=== PATIENT | female | born 1960 | race Hispanic/Latino ===

== ENCOUNTER 2017-08-04 04:20 | Emergency (ER) | payer OTHER ==
[2017-08-04] MEDS ORDERED: MORPHINE 4 MG/ML SYR ONE (05:10)
[2017-08-04] MEDS ORDERED: ONDANSETRON 4 MG/2 ML VIAL ONE (05:11)
[2017-08-04 05:37] LABS: Urine Bacteria <20 /HPF (<20); Urine Culture Reflex Order NOT NEEDED
[2017-08-04 05:37] LABS: Bicarbonate 24 mEq/L (21-31); Glucose Level 217 mg/dL (65-120); Lipase 33 U/L (22-51); Potassium 3.9 mEq/L (3.6-5.0); Sodium Level 136 mEq/L (135-145)
[2017-08-04 05:38] LABS: Urine RBC NONE SEEN /HPF (NONE SEEN)
[2017-08-04 05:39] LABS: Urine Blood NEGATIVE (NEG); Urine Glucose NEGATIVE (NEG); Urine Protein NEGATIVE (NEG); Urine Specific Gravity 1.025 (1.005-1.030)
[2017-08-04 05:43] LABS: ALT/SGPT 43 IU/L (10-60); AST/SGOT 38 IU/L (10-42); Albumin 3.9 g/dL (3.2-5.5); Alkaline Phosphatase 145 IU/L (42-121); BUN Blood Urea Nitrogen 27 mg/dL (6-20); Bilirubin Direct 0.1 mg/dL (0-0.2); Bilirubin Total 0.4 mg/dL (0.3-1.2); Protein, Total 7.6 g/dL (6.0-8.3)
[2017-08-04 05:44] LABS: Absolute Lymphocytes (CBC) 2.8 K/uL (0.7-4.9); Absolute Monocytes 0.7 K/uL (0.1-1.3); Absolute Neutrophil 5.7 K/uL (1.8-8.0); Basophils % 0.5 % (0-1.3); Eosinophils % 2.1 % (0-4.4); Hematocrit 40.6 % (36.0-45.0); Lymphocytes % 29.4 % (15.3-44.8); MCV 91.3 fL (80-100); MPV 8.2 fL (7.6-11.3); Monocytes % 7.6 % (3.3-12.3); RBC Red Blood Cell Count 4.45 M/uL (3.86-4.86)
--- NOTE | 2017-08-04 07:15 | ER ---
Nurse's Notes [facility] Name: Robyn Carrion Age: 56 yrs Sex: Female : 1960 Arrival Date: 08/04/2017 Time: 04:21 Bed 14 Private MD: Berry Suero F Diagnosis: Abdominal tenderness;Type 1 diabetes mellitus Presentation: 08/04 04:37 Presenting complaint: Patient states: she is having upper right abdominal pain with bb nausea x 1 month had pill cam done Sunday or Sunday. Pain is getting worse this last week and is getting unbearable. Pt diagnosed with precancerous colon last January. Transition of care: patient was not received from another setting of care. Onset of symptoms is unknown. Initial Sepsis Screen: Does the patient meet any 2 criteria? No. Patient's initial sepsis screen is negative. Does the patient have a suspected source of infection? No. Patient's initial sepsis screen is negative. 04:37 Method Of Arrival: Ambulatory bb 04:37 Acuity: DARA 3 bb 05:05 Care prior to arrival: None. tl2 Historical: - Allergies: 04:43 No Known Allergies; bb - Home Meds: 04:43 atorvastatin Oral [Active]; Lantus Sub-Q [Active]; parampatal [Active]; Cinnamon 500 mg bb Oral cap 500 cap daily [Active]; Fish Oil 1,000 mg Oral cap 1 cap daily [Active]; garlic 500 mg Oral cap 500 cap daily [Active]; lisinopril Oral [Active]; Vitamin B-12 500 mcg Oral tab 500 mcg daily [Active]; Vitamin B-6 500 mg tab Oral tab 500 mg daily [Active]; - PMHx: 04:43 CHRONIC LOW BACK PAIN; Diabetes - IDDM; Diverticulitis; Hyperlipidemia; Hypertension; bb Pancreatitis; TIA; - PSHx: 04:43 Hysterectomy; Cholecystectomy; bb - Immunization history:: Adult Immunizations up to date. - Social history:: Smoking status: Patient/guardian denies using tobacco. Screenin:02 Abuse screen: Denies threats or abuse. Nutritional screening: No deficits noted. tl2 Tuberculosis screening: No symptoms or risk factors identified. Fall Risk None identified. Assessment: 05:02 General: Appears in no apparent distress. uncomfortable, Behavior is calm, cooperative, tl2 appropriate for age. Pain: Complains of pain in right upper quadrant Pain does not radiate. Neuro: Level of Consciousness is awake, alert, obeys commands, Oriented to person, place, time, situation. Cardiovascular: Denies chest pain. Respiratory: Airway is patent Respiratory effort is even, unlabored, Respiratory pattern is regular, symmetrical. GI: Bowel sounds present X 4 quads. Abd is soft and non tender Reports upper abdominal pain, nausea. : No signs and/or symptoms were reported regarding the genitourinary system. Derm: Skin is pink, warm \T\ dry. 05:20 Reassessment: Pt c/o pain and nausea, MD notified, new orders see MAR. tl2 06:25 Reassessment: Patient appears in no apparent distress at this time. Patient and/or tl2 family updated on plan of care and expected duration. Pain level reassessed. Patient is alert, oriented x 3, equal unlabored respirations, skin warm/dry/pink. Pt continues to c/o pain. MD notified, no new orders. MD ordered for CT to come scan pt. 07:22 Reassessment: Patient appears in no apparent distress at this time. Patient is alert, em oriented x 3, equal unlabored respirations, skin warm/dry/pink. General: Appears in no apparent distress. uncomfortable, Behavior is calm, cooperative. Pain: Complains of pain in right upper quadrant Pain does not radiate. Neuro: Level of Consciousness is awake, alert, obeys commands, Oriented to person, place, time, situation. Cardiovascular: Capillary refill < 3 seconds Patient's skin is warm and dry. Respiratory: Airway is patent Respiratory effort is even, unlabored, Respiratory pattern is regular, symmetrical. GI: Bowel sounds present X 4 quads. Abd is soft and non tender Reports nausea. Derm: Skin is intact, Skin is pink, warm \T\ dry. 07:30 Reassessment: Patient appears in no apparent distress at this time. I agree with above iw assessment by Sebastian Nugent LVN. 08:25 Reassessment: Patient appears in no apparent distress at this time. Patient and/or em family updated on plan of care and expected duration. Pain level reassessed. Patient is alert, oriented x 3, equal unlabored respirations, skin warm/dry/pink. Patient states feeling better. Vital Signs: 04:43 BP 172 / 76; Pulse 70; Resp 20 S; Temp 100.3(O); Pulse Ox 100% on R/A; Weight 68.95 kg bb (R); Height 5 ft. 2 in. (157.48 cm) (R); Pain 7/10; 06:25 BP 173 / 84; Pulse 56; Resp 18; Temp 99.1(O); Pulse Ox 97% on R/A; tl2 07:43 BP 159 / 83; Pulse 64; Resp 18; Pulse Ox 100% on R/A; Pain 8/10; em 08:26 BP 149 / 76; Pulse 67; Resp 18; Pulse Ox 98% on R/A; Pain 7/10; em 04:43 Body Mass Index 27.80 (68.95 kg, 157.48 cm) bb ED Course: 04:21 Patient arrived in ED. ds1 04:25 Berry Suero MD is Private Physician. ds1 04:32 Magdalena Michele, HAIDER is Primary Nurse. tl2 04:38 Severo Oleary MD is Attending Physician. ps1 04:39 Triage completed. bb 04:43 Arm band placed on Patient placed in an exam room, on a stretcher, on pulse oximetry. bb Family accompanied patient. 05:01 Inserted saline lock: 20 gauge in left antecubital area, using aseptic technique. Blood tl2 collected. 05:02 Patient has correct armband on for positive identification. Bed in low position. Call tl2 light in reach. Side rails up X 1. Adult w/ patient. 06:36 CT Abd/Pelvis - W/Contrast In Process Unspecified. EDMS 06:37 CT completed. Patient tolerated procedure well. Patient moved to CT via wheelchair. eh 06:[address] from CT. eh 07:42 No provider procedures requiring assistance completed. em 07:51 Attending Physician role handed off by Severo Oleary MD lisa 07:51 Tian Stuart MD is Attending Physician. lisa 07:59 Berry Suero MD is Referral Physician. lisa 07:59 Melodie Santiago MD is Referral Physician. lisa 08:26 IV discontinued, intact, bleeding controlled, No redness/swelling at site. Pressure em dressing applied. Administered Medications: 05:25 Drug: morphine 4 mg Route: IVP; Site: left antecubital; tl2 06:20 Follow up: Response: No adverse reaction; Pain is unchanged, physician notified tl2 05:32 Drug: Zofran 4 mg Route: IVP; Site: left antecubital; tl2 06:20 Follow up: Response: No adverse reaction tl2 Outcome: 07:15 ER care complete, transfer ordered by . ps1 08:00 Discharge ordered by MD. gonzalez 08:25 Discharged to home ambulatory. em 08:25 Condition: good 08:25 Discharge instructions given to patient, Instructed on discharge instructions, follow up and referral plans. medication usage, Demonstrated understanding of instructions, follow-up care, medications, Prescriptions given X 2. 08:30 Patient left the ED. em Signatures: Dispatcher [employer] EDTian Malloy MD MD cha Hagler, Ervin eh Munoz, Edgar, FOOD CART ATTENDANT FOOD CART ATTENDANT Lisha Schmitt ds1 Jennifer Ordaz RN RN bb Mariella Bower RN RN iw Magdalena Michele RN RN tl2 Severo Oleary MD MD ps1
--- NOTE | 2017-08-04 07:15 | EDPHYS ---
Physician Documentation [facility] Name: Robyn Carrion Age: 56 yrs Sex: Female : 1960 Arrival Date: 08/04/2017 Time: 04:21 Bed 14 Private MD: Berry Suero F ED Physician Tian Stuart HPI: 08/04 05:01 This 56 yrs old Female presents to ER via Ambulatory with complaints of ps1 Abdominal Pain. 05:01 Hx of RUQ pain s/p zuhair. Pt of Dr. Santiago. Recent US and and pill cam. Now with ps1 returning RUQ pain and reported elevated liver enzymes. No fever. Pain rated moderate. . Historical: - Allergies: 04:43 No Known Allergies; bb - Home Meds: 04:43 atorvastatin Oral [Active]; Lantus Sub-Q [Active]; parampatal [Active]; Cinnamon 500 mg bb Oral cap 500 cap daily [Active]; Fish Oil 1,000 mg Oral cap 1 cap daily [Active]; garlic 500 mg Oral cap 500 cap daily [Active]; lisinopril Oral [Active]; Vitamin B-12 500 mcg Oral tab 500 mcg daily [Active]; Vitamin B-6 500 mg tab Oral tab 500 mg daily [Active]; - PMHx: 04:43 CHRONIC LOW BACK PAIN; Diabetes - IDDM; Diverticulitis; Hyperlipidemia; Hypertension; bb Pancreatitis; TIA; - PSHx: 04:43 Hysterectomy; Cholecystectomy; bb - Immunization history:: Adult Immunizations up to date. - Social history:: Smoking status: Patient/guardian denies using tobacco. ROS: 05:01 Constitutional: Negative for fever, chills, and weight loss, Eyes: Negative for injury, ps1 pain, redness, and discharge, Neck: Negative for injury, pain, and swelling, Cardiovascular: Negative for chest pain, palpitations, and edema, Respiratory: Negative for shortness of breath, cough, wheezing, and pleuritic chest pain. 05:01 : Negative for injury, bleeding, discharge, and swelling, MS/Extremity: Negative for injury and deformity, Skin: Negative for injury, rash, and discoloration, Neuro: Negative for headache, weakness, numbness, tingling, and seizure. 05:01 Abdomen/GI: Positive for abdominal pain. Exam: 05:01 Constitutional: This is a well developed, well nourished patient who is awake, alert, ps1 and in no acute distress. Head/Face: Normocephalic, atraumatic. Eyes: Pupils equal round and reactive to light, extra-ocular motions intact. Lids and lashes normal. Conjunctiva and sclera are non-icteric and not injected. Chest/axilla: Normal chest wall appearance and motion. Nontender with no deformity. No lesions are appreciated. Cardiovascular: Regular rate and rhythm. No gallops, murmurs, or rubs. Normal PMI, no JVD. No pulse deficits. Respiratory: Lungs have equal breath sounds bilaterally, clear to auscultation and percussion. No rales, rhonchi or wheezes noted. No increased work of breathing, no retractions or nasal flaring. 05:01 Skin: Warm, dry with normal turgor. Normal color with no rashes, no lesions, and no evidence of cellulitis. MS/ Extremity: Pulses equal, no cyanosis. Neurovascular intact. Full, normal range of motion. Neuro: Awake and alert, GCS 15, oriented to person, place, time, and situation. Cranial nerves II-XII grossly intact. Sensory grossly intact. Psych: Awake, alert, with orientation to person, place and time. Behavior, mood, and affect are within normal limits. 05:01 Abdomen/GI: Inspection: abdomen appears normal, Bowel sounds: normal, Palpation: moderate abdominal tenderness, in the right upper quadrant. Vital Signs: 04:43 BP 172 / 76; Pulse 70; Resp 20 S; Temp 100.3(O); Pulse Ox 100% on R/A; Weight 68.95 kg bb (R); Height 5 ft. 2 in. (157.48 cm) (R); Pain 7/10; 06:25 BP 173 / 84; Pulse 56; Resp 18; Temp 99.1(O); Pulse Ox 97% on R/A; tl2 07:43 BP 159 / 83; Pulse 64; Resp 18; Pulse Ox 100% on R/A; Pain 8/10; em 08:26 BP 149 / 76; Pulse 67; Resp 18; Pulse Ox 98% on R/A; Pain 7/10; em 04:43 Body Mass Index 27.80 (68.95 kg, 157.48 cm) MDM: 05:01 Data reviewed: vital signs, nurses notes. ps1 05:14 Patient medically screened. ps1 08/04 04:50 Order name: Urine Dipstick--Ancillary (enter results); Complete Time: 05:42 rg2 08/04 05:00 Order name: Basic Metabolic Panel ps1 08/04 05:00 Order name: CBC with Diff ps1 08/04 05:00 Order name: Creatinine for Radiology ps1 08/04 05:00 Order name: Hepatic Function ps1 08/04 05:00 Order name: Lipase ps1 08/04 05:00 Order name: Urine Microscopic Only; Complete Time: 05:42 ps1 08/04 05:00 Order name: CT Abd/Pelvis - W/Contrast ps1 08/04 05:01 Order name: Basic Metabolic Panel; Complete Time: 05:43 EDMS 08/04 05:01 Order name: CBC with Automated Diff; Complete Time: 06:14 EDMS 08/04 05:01 Order name: Creatinine (Radiology Only); Complete Time: 05:42 EDMS 08/04 05:01 Order name: Liver (Hepatic) Function; Complete Time: 05:43 EDMS 08/04 05:01 Order name: Lipase; Complete Time: 05:43 EDMS 08/04 05:00 Order name: IV Saline Lock; Complete Time: 05:06 ps1 08/04 05:00 Order name: Labs collected and sent; Complete Time: 05:06 ps1 08/04 05:00 Order name: Urine Dipstick-Ancillary (obtain specimen); Complete Time: 05:06 ps1 Administered Medications: 05:25 Drug: morphine 4 mg Route: IVP; Site: left antecubital; tl2 06:20 Follow up: Response: No adverse reaction; Pain is unchanged, physician notified tl2 05:32 Drug: Zofran 4 mg Route: IVP; Site: left antecubital; tl2 06:20 Follow up: Response: No adverse reaction tl2 Disposition: 08/04/17 08:00 Discharged to Home. Impression: Abdominal tenderness, Type 1 diabetes mellitus. - Condition is Stable. - Discharge Instructions: Abdominal Pain, Adult, Type 1 Diabetes Mellitus, Adult, Nausea and Vomiting. - Prescriptions for Bentyl 20 mg Oral Tablet - take 1 tablet by ORAL route every 6 hours As needed; 20 tablet. Pepcid 20 mg Oral Tablet - take 1 tablet by ORAL route every 12 hours for 10 days; 20 tablet. Zofran 4 mg Oral Tablet - take 1 tablet by ORAL route every 12 hours As needed; 20 tablet. - Medication Reconciliation Form, Thank You Letter, Antibiotic Education, Prescription Opioid Use form. - Follow up: Berry Suero MD; When: 2 - 3 days; Reason: Recheck today's complaints, Continuance of care, Re-evaluation by your physician. Follow up: Melodie Santiago MD; When: 2 - 3 days; Reason: Recheck today's complaints, Continuance of care, Re-evaluation by your physician. - Problem is new. - Symptoms have improved. Signatures: Dispatcher [employer] EDTian Malloy MD MD cha Munoz, Edgar, ANIMAL HUSBANDRY MANAGER ANIMAL HUSBANDRY MANAGER Jennifer Ellis, RN RN bb Magdalena Michele RN RN tl2 Severo Oleary MD MD ps1
[2017-08-04 08:34] VITALS: TEMP 99.1
[2017-08-04 08:37] VITALS: BP 149/76; O2SAT 98
--- NOTE | 2017-08-04 10:44 | RAD REPORT ---
EXAM DESCRIPTION: CTAbdomen Pelvis W Contrast - 08/04/2017 10:22 am CLINICAL HISTORY: Abdominal pain. COMPARISON: None. TECHNIQUE: Biphasic CT imaging of the abdomen and pelvis was performed with 100 ml non-ionic IV cont rast. All CT scans are performed using dose optimization technique as appropriate and may include automated exposure control or mA/KV adjustment according to patient size. FINDINGS: The lung bases are clear.Small hiatal hernia. The liver demonstrates diffuse fatty infiltration. Cholecystectomy clips. The spleen, pancreas, adren al glands and kidneys are within normal limits. No bowel obstruction, free air, free fluid or abscess. Prominent sigmoid diverticulosis coli without diverticulitis. The appendix is normal. No evidence of significant lymphadenopathy. No suspicious bony findings. IMPRESSION: Prominent fatty liver. Sigmoid diverticulosis coli without diverticulitis.
== END 2017-08-04 08:30 | disposition home or self-care (01) ==
LOC: ER 04:20
DX: E10.9 Type 1 diabetes mellitus without complications (principal); I10 Essential (primary) hypertension; E78.5 Hyperlipidemia, unspecified; Z79.4 Long term (current) use of insulin
CPT/HCPCS: 36415; 74177; 80048; 80076; 83690; 85025; 96374; 96375; 99284; J2405; Q9967; 81003; 81015

== ENCOUNTER 2017-09-04 22:24 | Observation (INO) | payer OTHER ==
[2017-09-04] MEDS ORDERED: LIDOCAINE VISCOUS 2% SOLN 15 ML UDC ONE (23:19)
[2017-09-04] MEDS ORDERED: MAGNE/ALUM HYDROXD 30 ML UCUP ONE (23:19)
[2017-09-04] MEDS ORDERED: ONDANSETRON 4 MG/2 ML VIAL ONE (23:19)
[2017-09-04 23:55] LABS: Absolute Lymphocytes (CBC) 3.1 K/uL (0.7-4.9); Absolute Monocytes 0.9 K/uL (0.1-1.3); Basophils % 0.7 % (0-1.3); Eosinophils % 1.3 % (0-4.4); Lymphocytes % 23.4 % (15.3-44.8); MCH 30.8 pg (27.0-35.0); MCV 91.2 fL (80-100); MPV 8.3 fL (7.6-11.3); Monocytes % 6.5 % (3.3-12.3); RBC Red Blood Cell Count 4.72 M/uL (3.86-4.86)
[2017-09-05 00:03] LABS: Potassium 3.5 mEq/L (3.6-5.0)
[2017-09-05 00:11] LABS: Albumin 4.1 g/dL (3.2-5.5); Bilirubin Direct 0.1 mg/dL (0-0.2); Bilirubin Total 0.4 mg/dL (0.3-1.2); Protein, Total 8.3 g/dL (6.0-8.3)
--- NOTE | 2017-09-05 01:27 | EDPHYS ---
Physician Documentation [facility] Name: Robyn Carrion Age: 56 yrs Sex: Female : 1960 Arrival Date: 09/04/2017 Time: 22:28 Bed 30 Private MD: ED Physician Antony Ely HPI: 09/05 01:21 This 56 yrs old Female presents to ER via Ambulatory with complaints of Chest rn Pain. 01:21 The patient or guardian reports chest pain that is located primarily in the substernal rn area, epigastric area. Onset: 3 day(s) ago. The pain does not radiate. The chest pain is described as burning, causing indigestion. Duration: The patient or guardian reports multiple episodes, that are intermittent. Modifying factors: The symptoms are alleviated by nothing. the symptoms are aggravated by nothing. Severity of pain: At its worst the pain was moderate in the emergency department the pain is unchanged. The patient has experienced similar episodes in the past. The patient has not recently seen a physician. Reports chronic pancreatitis, + chest pain for 2-3 days, never been this bad, had neg cath 1 year ago, has been seeing dr macias, who recommended MRCP/ERCP to look for stone in duct, hasn't gotten scheduled yet, no fever/cough/sob. . Historical: - Allergies: 09/04 22:43 hydrocodone; fc - Home Meds: 22:43 Creon 36,000-114,000- 180,000 unit oral cpDR 2 caps tid with meal and 1 at bedtime fc [Active]; Zofran (as hydrochloride) 4 mg Oral tab 2 tabs 3 times per day [Active]; Dexilant 60 mg oral CpDB 1 cap once daily [Active]; atorvastatin Oral once daily [Active]; Lantus Sub-Q 47 unit daily [Active]; - PMHx: 22:45 GERD; fc - PSHx: 22:45 Hysterectomy; Cholecystectomy; fc - Immunization history:: Last tetanus immunization: up to date. - Social history:: Smoking status: Patient/guardian denies using tobacco. - Ebola Screening: : Patient negative for fever greater than or equal to 101.5 degrees Fahrenheit, and additional compatible Ebola Virus Disease symptoms Patient denies exposure to infectious person Patient denies travel to an Ebola-affected area in the 21 days before illness onset. - Family history:: not pertinent. - Hospitalizations: : No recent hospitalization is reported. ROS: 09/05 01:21 Constitutional: Negative for fever, chills, and weight loss, Eyes: Negative for injury, rn pain, redness, and discharge, Neck: Negative for injury, pain, and swelling, Cardiovascular: Negative for palpitations, and edema, Respiratory: Negative for shortness of breath, cough, wheezing, and pleuritic chest pain, Abdomen/GI: Negative for diarrhea, and constipation, MS/Extremity: Negative for injury and deformity, Skin: Negative for injury, rash, and discoloration, Neuro: Negative for headache, weakness, numbness, tingling, and seizure. Exam: 01:21 Constitutional: This is a well developed, well nourished patient who is awake, alert, rn appears uncomfortable Head/Face: Normocephalic, atraumatic. Eyes: Pupils equal round and reactive to light, extra-ocular motions intact. Lids and lashes normal. Conjunctiva and sclera are non-icteric and not injected. Cornea within normal limits. Periorbital areas with no swelling, redness, or edema. Cardiovascular: Regular rate and rhythm with a normal S1 and S2. No gallops, murmurs, or rubs. Normal PMI, no JVD. No pulse deficits. Respiratory: Lungs have equal breath sounds bilaterally, clear to auscultation and percussion. No rales, rhonchi or wheezes noted. No increased work of breathing, no retractions or nasal flaring. Abdomen/GI: soft, mild epigastric tenderness, no rebound MS/ Extremity: Pulses equal, no cyanosis. Neurovascular intact. Full, normal range of motion. Equal circumference. Neuro: Awake and alert, GCS 15, oriented to person, place, time, and situation. Cranial nerves II-XII grossly intact. Motor strength 5/5 in all extremities. Sensory grossly intact. Vital Signs: 09/04 22:45 BP 168 / 87; Pulse 71; Resp 18; Temp 98.2(O); Pulse Ox 98% on R/A; Weight 71.67 kg (R); fc Height 5 ft. 2 in. (157.48 cm) (R); Pain 8/10; 09/05 00:39 BP 138 / 63; Pulse 79; Resp 18; Pulse Ox 98% on R/A; mb3 02:12 BP 125 / 57; Pulse 67; Resp 16; Pulse Ox 98% on R/A; mb3 09/04 22:45 Body Mass Index 28.90 (71.67 kg, 157.48 cm) fc MDM: 09/04 22:56 Patient medically screened. rn 09/05 01:21 Differential diagnosis: abnormal EKG, acute myocardial infarction, acute pericarditis, rn anxiety, coronary artery disease costochondritis, esophagitis, gastritis, gastroesophageal reflux disease (GERD), pancreatitis, pericarditis, pleurisy. Data reviewed: vital signs, nurses notes, lab test result(s), radiologic studies, plain films. Counseling: I had a detailed discussion with the patient and/or guardian regarding: the historical points, exam findings, and any diagnostic results supporting the discharge/admit diagnosis, lab results, radiology results, the need for further work-up and treatment in the hospital. Response to treatment: the patient's symptoms have mildly improved after treatment, and as a result, I will admit patient. Admission orders: after a detailed discussion of the patient's condition and case, the admit orders are written by me. ED course: Pt still vomiting, uncomfortable, cardiac eval here normal, pain most likely referred from chronic pancreatitis vs acid reflux/acid related problems, elevated alk phos, will admit for pain control/anti-emetics, GI consult with MRCP. . 09/04 23:10 Order name: Basic Metabolic Panel; Complete Time: 00:45 rn 09/04 23:10 Order name: BNP; Complete Time: 00:45 rn 09/04 23:10 Order name: CBC with Diff; Complete Time: 00:45 rn 09/04 23:10 Order name: LFT's; Complete Time: 00:45 09/04 23:10 Order name: Troponin (emerg Dept Use Only); Complete Time: 00:45 rn 09/04 23:10 Order name: Lipase; Complete Time: 00:45 09/04 23:10 Order name: XRAY Chest (1 view) rn 09/04 23:10 Order name: EKG; Complete Time: 23:11 rn 09/04 23:10 Order name: Cardiac monitoring; Complete Time: 23:15 rn 09/04 23:10 Order name: EKG - Nurse/Tech; Complete Time: 23:15 rn 09/04 23:10 Order name: IV Saline Lock; Complete Time: 23:15 rn 09/04 23:10 Order name: Labs collected and sent; Complete Time: 23:15 rn 09/04 23:10 Order name: O2 Per Protocol; Complete Time: 23:15 rn 09/04 23:10 Order name: O2 Sat Monitoring; Complete Time: 23:16 rn Administered Medications: 09/04 23:27 Drug: Zofran 4 mg Route: IVP; Site: right hand; mb3 09/05 02:05 Follow up: Response: No adverse reaction mb3 09/04 23:28 Drug: GI Cocktail without - (Maalox Suspension 30 ml, Lidocaine Liquid 2 % 15 mb3 ml) Route: PO; 09/05 02:05 Follow up: Response: No adverse reaction mb3 Disposition: 09/05/17 01:26 Hospitalization ordered by Berry Suero for Observation. Preliminary diagnosis are Chest pain, unspecified, Other chronic pancreatitis, Intractable vomiting. - Bed requested for Telemetry/MedSurg (observation). - Status is Observation. mb3 - Condition is Stable. - Problem is an ongoing problem. - Symptoms have improved. UTI on Admission? No Signatures: Dispatcher [employer] Yessy Anderson RN Amanda Walls RN Antony Higginbotham MD MD rn Botello, Elizabeth eb Barnett, Mark RN RN mb3 Corrections: (The following items were deleted from the chart) 01:37 01:26 Hospitalization Ordered by Berry Suero MD for Observation. Preliminary dw diagnosis is Chest pain, unspecified; Other chronic pancreatitis; Intractable vomiting. Bed requested for Telemetry/MedSurg (observation). Status is Observation. Condition is Stable. Problem is an ongoing problem. Symptoms have improved. UTI on Admission? No. rn 01:59 01:37 09/05/2017 01:26 Hospitalization Ordered by Berry Suero MD for Observation. eb Preliminary diagnosis is Chest pain, unspecified; Other chronic pancreatitis; Intractable vomiting. Bed requested for Telemetry/MedSurg (observation). Status is Observation. Condition is Stable. Problem is an ongoing problem. Symptoms have improved. UTI on Admission? No. dw 02:39 01:59 09/05/2017 01:26 Hospitalization Ordered by Berry Suero MD for Observation. mb3 Preliminary diagnosis is Chest pain, unspecified; Other chronic pancreatitis; Intractable vomiting. Bed requested for Telemetry/MedSurg (observation). Status is Observation. Condition is Stable. Problem is an ongoing problem. Symptoms have improved. UTI on Admission? No. eb
--- NOTE | 2017-09-05 01:27 | ER ---
Nurse's Notes [facility] Name: Robyn Carrion Age: 56 yrs Sex: Female : 1960 Arrival Date: 09/04/2017 Time: 22:28 Bed 30 Private MD: Diagnosis: Chest pain, unspecified;Other chronic pancreatitis;Intractable vomiting Presentation: 09/04 22:36 Presenting complaint: Patient states: that she is having a lot of chest pressure on and fc off x 3 days. Gets better if she burps or passes gas or stool. Positive for nausea and vomiting. Denies any shortness of breathe. Also having stomach cramping. Transition of care: patient was not received from another setting of care. Onset of symptoms was September 04, 2017 at 09:00. Risk Assessment: Do you want to hurt yourself or someone else? Patient reports no desire to harm self or others. Initial Sepsis Screen: Does the patient meet any 2 criteria? No. Patient's initial sepsis screen is negative. Does the patient have a suspected source of infection? No. Patient's initial sepsis screen is negative. Care prior to arrival: None. 22:36 Method Of Arrival: Ambulatory fc 22:36 Acuity: DARA 3 fc Historical: - Allergies: 22:43 hydrocodone; fc - Home Meds: 22:43 Creon 36,000-114,000- 180,000 unit oral cpDR 2 caps tid with meal and 1 at bedtime fc [Active]; Zofran (as hydrochloride) 4 mg Oral tab 2 tabs 3 times per day [Active]; Dexilant 60 mg oral CpDB 1 cap once daily [Active]; atorvastatin Oral once daily [Active]; Lantus Sub-Q 47 unit daily [Active]; - PMHx: 22:45 GERD; fc - PSHx: 22:45 Hysterectomy; Cholecystectomy; fc - Immunization history:: Last tetanus immunization: up to date. - Social history:: Smoking status: Patient/guardian denies using tobacco. - Ebola Screening: : Patient negative for fever greater than or equal to 101.5 degrees Fahrenheit, and additional compatible Ebola Virus Disease symptoms Patient denies exposure to infectious person Patient denies travel to an Ebola-affected area in the 21 days before illness onset. - Family history:: not pertinent. - Hospitalizations: : No recent hospitalization is reported. Screenin:04 Abuse screen: Denies threats or abuse. Nutritional screening: No deficits noted. mb3 Tuberculosis screening: No symptoms or risk factors identified. Fall Risk None identified. Assessment: 23:04 General: Appears distressed, uncomfortable, well groomed, Behavior is calm, mb3 cooperative, appropriate for age. Pain: Complains of pain in chest Pain does not radiate. Pain currently is 10 out of 10 on a pain scale. Quality of pain is described as burning, stabbing, Pain began gradually, 11 hours ago. Neuro: No deficits noted. Level of Consciousness is awake, alert, obeys commands, Oriented to person, place, time, situation, Appropriate for age. Cardiovascular: Reports chest pain, Heart tones present Capillary refill < 3 seconds Patient's skin is warm and dry. Rhythm is sinus rhythm. Respiratory: No deficits noted. Airway is patent Respiratory effort is even, unlabored, Respiratory pattern is regular, symmetrical. GI: Abdomen is flat, Bowel sounds present X 4 quads. Abdomen is tender to palpation in right upper quadrant. : No signs and/or symptoms were reported regarding the genitourinary system. Vital Signs: 22:45 BP 168 / 87; Pulse 71; Resp 18; Temp 98.2(O); Pulse Ox 98% on R/A; Weight 71.67 kg (R); fc Height 5 ft. 2 in. (157.48 cm) (R); Pain 8/10; 09/05 00:39 BP 138 / 63; Pulse 79; Resp 18; Pulse Ox 98% on R/A; mb3 02:12 BP 125 / 57; Pulse 67; Resp 16; Pulse Ox 98% on R/A; mb3 09/04 22:45 Body Mass Index 28.90 (71.67 kg, 157.48 cm) ED Course: 09/04 22:28 Patient arrived in ED. al2 22:38 Triage completed. fc 22:45 Arm band placed on Patient placed in an exam room, on a stretcher. fc 22:52 Arturo Barber, RN is Primary Nurse. mb3 22:55 Patient has correct armband on for positive identification. Placed in gown. Bed in low mb3 position. Call light in reach. Side rails up X 1. gambling monitor on. Pulse ox on. NIBP on. 22:56 Antony Ely MD is Attending Physician. rn 23:03 Inserted saline lock: 20 gauge in right hand, using aseptic technique. Blood collected. mb3 Patient maintains SpO2 saturation greater than 95% on room air. 23:29 XRAY Chest (1 view) In Process Unspecified. EDMS 09/05 01:25 Berry Suero MD is Hospitalizing Provider. rn 02:14 No provider procedures requiring assistance completed. Patient admitted, IV remains in mb3 place. Administered Medications: 09/04 23:27 Drug: Zofran 4 mg Route: IVP; Site: right hand; mb3 09/05 02:05 Follow up: Response: No adverse reaction mb3 09/04 23:28 Drug: GI Cocktail without - (Maalox Suspension 30 ml, Lidocaine Liquid 2 % 15 mb3 ml) Route: PO; 09/05 02:05 Follow up: Response: No adverse reaction mb3 Outcome: 01:26 Decision to Hospitalize by Provider. rn 02:13 Admitted to Tele accompanied by tech, via wheelchair, room 423, with chart, Report mb3 called to Ernesto Stacy RN 02:13 Condition: stable 02:13 Instructed on the need for admit. 02:39 Patient left the ED. mb3 Signatures: Dispatcher [employer] EDID Amanda Degroot, RN HAIDER Antony Ely MD MD rn Love, Angelica al2 Barnett, Mark, RN RN mb3
[2017-09-05] MEDS ORDERED: ACETAMINOPHEN 500 MG TAB PO PRN (02:42)
[2017-09-05 03:01] VITALS: BMI 28.3
[2017-09-05] MEDS: D5.45NS W/KCL 20MEQ 1,000 ML IV SCH ×2 (03:16→12:42)
[2017-09-05 04:31] LABS: Urine Appearance CLEAR; Urine Bilirubin NEGATIVE (NEG); Urine Blood NEGATIVE (NEG); Urine Color YELLOW; Urine Glucose NEGATIVE (NEG); Urine Protein NEGATIVE (NEG); Urine Specific Gravity 1.015 (1.005-1.030); Urine Urobilinogen 0.2 mg/dL (0.2-1.0); Urine pH 5.5 (5.0-7.0)
[2017-09-05 04:55] LABS: Urine Microscopic Reflex ORDER UMIC
[2017-09-05 05:39] LABS: Urine Bacteria <20 /HPF (<20); Urine Culture Reflex Order REFLEXED; Urine RBC NONE SEEN /HPF (NONE SEEN)
--- NOTE | 2017-09-05 07:41 | EKG ---
Test Date: 2017-09-04 Test Time: 23:17:18 Community Educator: REEMA MEASUREMENT RESULTS: Intervals: Rate: 68 OK: 146 QRSD: 78 QT: 402 QTc: 427 [place]: P: 15 OK: 146 QRS: -5 T: 38 INTERPRETIVE STATEMENTS: Normal sinus rhythm Normal ECG Compared to ECG 05/06/2017 14:33:45 No significant changes Electronically Signed On 09-05-17 07:40:47 CDT by Jonathan Coffey
[2017-09-05] MEDS: ONDANSETRON 4 MG/2 ML VIAL IV PRN ×3 (07:56→23:11)
[2017-09-05] MEDS: Morphine 2 MG/2 ML SYR IV PRN ×4 (07:56→23:12)
--- NOTE | 2017-09-05 08:35 | RAD REPORT ---
EXAM DESCRIPTION: Mohsen Single View09/04/2017 11:32 pm CLINICAL HISTORY: Chest pain COMPARISON: April 2017 FINDINGS: The lungs appear clear of acute infiltrate. The heart is normal size IMPRESSION: No acute abnormalities displayed
--- NOTE | 2017-09-05 09:31 | RAD REPORT ---
EXAM DESCRIPTION: MRI - Cholangiogram - 09/05/2017 8:50 am CLINICAL HISTORY: Chest pain, right upper quadrant pain, cholecystectomy COMPARISON: CT study August 04, MRCP June 2016 FINDINGS: Gallbladder is absent. There is a small remnant of cystic duct identifiable. The common he patic duct and common bile duct are both approximately 7 mm. This is normal range for a post cholecys tectomy patient. No duct stone, stricture, mass or other suspicious finding. IMPRESSION: Normal post cholecystectomy MRCP.
[2017-09-05] MEDS: LISINOPRIL 10 MG TAB PO SCH (11:07)
--- NOTE | 2017-09-05 12:25 | HP ---
Date of Admission: 09/05/2017 History Of Present Illness: A 56-year-old female with history of recurrent acute pancreatitis , pres ented to the emergency room with complaint chest pain; however, the patient is pointing to the epigas tric abdominal area. The pain has no radiation. It started about 2-3 days ago and being progressive ly getting worse until she started having nausea and vomiting. The pain does not radiate. No shortn ess of breath. The patient voiced no other complaints. Review of Systems: Gastrointestinal: As above. Cardiovascular: No complaints. Genitourinary: No complaints. Respiratory: No complaints. Skeletomuscular: No complaints. Neurological: No complaint. Past Medical History: 1.As above, acute pancreatitis episodes. 2.Type 2 diabetes. 3.Hyperlipidemia. 4.Hypertension. Past Surgical History: The patient has had cholecystectomy, hysterectomy, and low back surgery. Social History: No smoking, alcohol, or drug abuse history. Family History: Noncontributing. Medications: Include atorvastatin 20 mg p.o. daily, Kapidex 60 mg p.o. daily, Bentyl 10 mg p.o. b.i. d., Lantus 47 units subcutaneous daily, lisinopril 10 mg p.o. daily, and Zofran 8 mg p.o. q.8 hours. The patient takes rxncda-xqzeazxh-rrmybay supplement. Allergies: CODEINE AND HYDROCODONE. Physical Examination: Vital Signs: Blood pressure 135/70, pulse 64, temperature 97.4 on room air, and pulse oximetry 95%. Heart: Regular rate and rhythm. Chest: Clear to auscultation. Abdomen: Soft with epigastric tenderness. No rigidity. No rebound. Bowel sounds are active. Extremities: No edema. No cyanosis. Peripheral pulses are felt. Neurologic: Alert, oriented, nonfocal. Grossly intact. Chest x-ray, no acute pathology. Electrocardiogram, normal sinus rhythm. Laboratory Data: White cell count 13.1. The rest of CBC nonrevealing. Chemistry; sodium 134, potas sium 3.5, chloride 100, BUN 20, creatinine 0.78, blood sugar 181, AST 55, and alkaline phosphatase 12 6. Troponin less than 0.03. Lipase 25. Assessment And Plan: Epigastric abdominal pain rather than chest pain. The patient basically also h ad heart catheterization by Cardiology last year, which was negative. Dr. Santiago, our gastroenterologi st has been following the patient for her pancreatitis. He is scheduled for her MRCP. Pending that result, we will put the patient n.p.o., put on pain medication, monitor her blood sugar, put her on s liding scale, and put her on the rest of her home medications. Look orders for details. IVIS/BABATUNDE Voice ID: [id number]
[2017-09-05] MEDS: DICYCLOMINE HCL 10 MG CAP PO PRN (14:12)
[2017-09-05] MEDS: LIPASE/PROTEASE/AMYLASE CAP PO SCH (16:37)
[2017-09-05] MEDS ORDERED: GLUCAGON 1 MG/VIAL IM PRN (18:12)
[2017-09-05] MEDS ORDERED: D50W 25 GM/50 ML SYRINGE IV PRN (18:12)
[2017-09-05] MEDS ORDERED: ATORVASTATIN 20 MG TAB PO SCH (21:00)
[2017-09-05] MEDS: INSULIN -REGULAR HUMAN 50 UNIT/0.5 ML ML SQ SCH (21:00)
[2017-09-06 04:12] LABS: Absolute Lymphocytes (CBC) 2.7 K/uL (0.7-4.9); Absolute Monocytes 0.7 K/uL (0.1-1.3); Absolute Neutrophil 6.9 K/uL (1.8-8.0); Basophils % 0.9 % (0-1.3); Eosinophils % 1.7 % (0-4.4); Hematocrit 38.8 % (36.0-45.0); Lymphocytes % 25.8 % (15.3-44.8); MCH 31.2 pg (27.0-35.0); MCV 91.7 fL (80-100); MPV 8.2 fL (7.6-11.3); Monocytes % 6.4 % (3.3-12.3); RBC Red Blood Cell Count 4.23 M/uL (3.86-4.86)
[2017-09-06 04:28] LABS: Phosphorus 3.6 mg/dL (2.5-4.3); Potassium 4.2 mEq/L (3.6-5.0)
[2017-09-06] MEDS ORDERED: PANTOPRAZOLE 40MG TABLET PO SCH (06:30)
[2017-09-06 07:27] VITALS: O2SAT 96
[2017-09-06] MEDS ORDERED: INSULIN DETEMIR 100 UNIT/1 ML INSULIN SQ SCH (09:00)
[2017-09-06] MEDS: Morphine 2 MG/2 ML SYR IV PRN (09:17)
[2017-09-06] MEDS: ONDANSETRON 4 MG/2 ML VIAL IV PRN ×2 (09:18→17:01)
[2017-09-06] MEDS: LIPASE/PROTEASE/AMYLASE CAP PO SCH ×3 (09:23→16:58)
[2017-09-06] MEDS: INSULIN -REGULAR HUMAN 50 UNIT/0.5 ML ML SQ SCH ×3 (09:24→16:58)
[2017-09-06] MEDS: LISINOPRIL 10 MG TAB PO SCH (09:24)
[2017-09-06] MEDS: DICYCLOMINE HCL 10 MG CAP PO PRN (12:30)
[2017-09-06 12:48] VITALS: BP 122/66
--- NOTE | 2017-09-06 15:19 | CON ---
Date of Consultation: 09/06/[address] Suero's service on 09/05/2017. I saw the patient on 09/06/2017. History Of Present Illness: Chest pain for 3 days. History Of Present Illness: Ms. Carrion 57-year-old woman with history of chronic alcazar creatitis, diabetes, gastroesophageal reflux disease, dyslipidemia, and she is status post hysterecto my and cholecystectomy. Came in with mid-epigastric chest pain with some nausea. No vomiting, diaph oresis, PND, orthopnea, pedal edema, palpitations, or syncope. Apparently, she is status post cholec ystectomy, but there were some plans initially to do an ERCP. Apparently, she had a HIDA scan yester day was negative. Her lipase was normal. Her liver function test was slightly elevated. She has a negative troponin, negative EKG, and negative chest x-ray. Approximately a year ago, a heart cathete rization was done because of her chest pain and there were normal coronaries. Allergies: SHE IS ALLERGIC TO HYDROCODONE. Medications: Include Lipitor, insulin, Dexilant, Creon, enzymes. Review of Systems: Negative. Social History: Negative. Family History: Negative. Physical Examination: Vital Signs: Stable. She was afebrile. HEENT: Negative. Neck: Supple with no bruit, lymphadenopathy, JVD, or thyromegaly. Chest: Clear to auscultation and percussion. Cardiac: Revealed a regular rhythm and rate without any murmurs, gallops, or rubs. Abdomen: Benign. Extremities: Revealed no clubbing, cyanosis, or edema. Diagnostic Data: . Impression And Plan: 1.Chest pain, most likely gastroesophageal reflux disease in nature or pancreatitis exacerbation. I do not recommend any cardiac workup. She had a normal heart catheterization a year ago. She has no rmal EKG, chest x-ray, and enzymes. 2. . 3.Gastroesophageal reflux disease. She is status post cholecystectomy. . For ERCP, Dr. Santiago has been consulted and endoscopy may be reasonable. STEVEN/BABATUNDE Voice ID: [id number] Report ID: [id number]
[2017-09-06 16:40] VITALS: TEMP 97.7
== END 2017-09-06 18:09 | disposition home or self-care (01) ==
LOC: ER 22:24 → ERHOLD 09-05 02:05 → 4TH 09-05 02:18
PROVIDERS: ADMIT Internal Medicine; ATTEND Internal Medicine
DX: R10.13 Epigastric pain (principal); E11.9 Type 2 diabetes mellitus without complications; K86.1 Other chronic pancreatitis; E78.5 Hyperlipidemia, unspecified; I10 Essential (primary) hypertension; K21.9 Gastro-esophageal reflux disease without esophagitis
CPT/HCPCS: 36415 ×2; 71045; 74181; 80048 ×2; 80076; 82962 ×6; 83690; 83735; 83880; 84100; 84478; 84484; 85025 ×2; 87086; 87088; 93005; 96374; 99285; G0378 ×2; J2270 ×6; J2405 ×6; 81003; 81015

== ENCOUNTER 2017-11-09 00:02 | Emergency (ER) | payer OTHER ==
[2017-11-09] MEDS ORDERED: METHYLPREDNISOLONE 125 MG INJ ONE (00:38)
[2017-11-09] MEDS ORDERED: DEXAMETHASONE 10 MG/ML VIAL ONE (00:38)
[2017-11-09] MEDS ORDERED: DIPHENHYDRAMINE 50 MG/ML VIAL ONE (00:38)
[2017-11-09] MEDS ORDERED: FAMOTIDINE 20 MG/2 ML VIAL IV ONE (00:38)
[2017-11-09] MEDS ORDERED: NA CHLORIDE 0.9% 1,000 ML ONE (00:38)
[2017-11-09] MEDS ORDERED: ALBUTEROL 2.5 MG/3 ML NEB SOL ONE (00:40)
[2017-11-09] MEDS ORDERED: IPRATROPIUM BROM 0.5MG/2.5ML ONE (00:41)
[2017-11-09] MEDS ORDERED: CEFTRIAXONE/SWI 1gm 1 GM/10 ML SYR ONE (00:41)
[2017-11-09 00:47] LABS: Absolute Lymphocytes (CBC) 2.5 K/uL (0.7-4.9); Absolute Monocytes 0.8 K/uL (0.1-1.3); Absolute Neutrophil 6.3 K/uL (1.8-8.0); Basophils % 0.5 % (0-1.3); Eosinophils % 1.7 % (0-4.4); Hematocrit 39.6 % (36.0-45.0); Lymphocytes % 25.9 % (15.3-44.8); MCH 31.9 pg (27.0-35.0); MCV 92.5 fL (80-100); MPV 8.3 fL (7.6-11.3); Monocytes % 7.7 % (3.3-12.3); RBC Red Blood Cell Count 4.28 M/uL (3.86-4.86)
[2017-11-09 00:52] LABS: Protime INR 0.93
[2017-11-09 01:06] LABS: Albumin 3.3 g/dL (3.4-5.0); Bilirubin Direct 0.1 mg/dL (0-0.2); Bilirubin Total 0.2 mg/dL (0.2-1.0); CKMB Creatine Kinase MB 1.1 ng/mL (0.3-3.6); Protein, Total 7.5 g/dL (6.4-8.2)
[2017-11-09] MEDS ORDERED: INSULIN -REGULAR HUMAN 50 UNIT/0.5 ML ML ONE (01:45)
[2017-11-09 01:54] LABS: Urine Blood NEGATIVE (NEG); Urine Glucose 2+ (NEG); Urine Protein NEGATIVE (NEG); Urine pH 5.5 (5.0-7.0)
--- NOTE | 2017-11-09 03:32 | EDPHYS ---
Physician Documentation [facility] Name: Robyn Carrion Age: 57 yrs Sex: Female : 1960 Arrival Date: 11/09/2017 Time: 00:03 Bed 2 Private MD: Berry Suero F ED Physician Tian Stuart HPI: 11/09 00:30 This 57 yrs old Female presents to ER via EMS with complaints of Cough, lisa Vomiting. 00:30 The patient or guardian reports airway noise, cough. Onset: The symptoms/episode lisa began/occurred just prior to arrival, this morning. Severity of symptoms: At their worst the symptoms were moderate, in the emergency department the symptoms are unchanged. Modifying factors: The symptoms are alleviated by nothing, the symptoms are aggravated by nothing. Associated signs and symptoms: The patient has no apparent associated signs or symptoms. Historical: - Allergies: 00:18 HYDROCODONE; bs1 - Home Meds: 00:18 Creon 36,000-114,000- 180,000 unit Oral cpDR 2 caps tid with meal and 1 at bedtime bs1 [Active]; Lantus Sub-Q 47 unit daily [Active]; atorvastatin Oral once daily [Active]; Zofran (as hydrochloride) 4 mg Oral tab 2 tabs 3 times per day [Active]; Dicyclomine Oral [Active]; Amitiza oral oral [Active]; Dexilant 60 mg Oral CpDB 1 cap once daily [Active]; - PMHx: 00:18 GERD; TIA; Diabetes - IDDM; High Cholesterol; Hypertension; Pancreatitis; bs1 - PSHx: 00:18 x3 cardiac caths; Hysterectomy; back sx; Cholecystectomy; bs1 - Immunization history:: Adult Immunizations up to date. - Social history:: Smoking status: Patient/guardian denies using tobacco. - Ebola Screening: : Patient negative for fever greater than or equal to 101.5 degrees Fahrenheit, and additional compatible Ebola Virus Disease symptoms Patient denies exposure to infectious person. ROS: 00:31 Constitutional: Negative for fever, chills, and weight loss, Eyes: Negative for injury, lisa pain, redness, and discharge, Neck: Negative for injury, pain, and swelling, Cardiovascular: Negative for chest pain, palpitations, and edema, Respiratory: Negative for shortness of breath, cough, wheezing, and pleuritic chest pain, Abdomen/GI: Negative for abdominal pain, nausea, vomiting, diarrhea, and constipation, Back: Negative for injury and pain, : Negative for injury, bleeding, discharge, and swelling, MS/Extremity: Negative for injury and deformity, Skin: Negative for injury, rash, and discoloration, Neuro: Negative for headache, weakness, numbness, tingling, and seizure, Psych: Negative for depression, anxiety, suicide ideation, homicidal ideation, and hallucinations, Allergy/Immunology: Negative for hives, rash, and allergies, Endocrine: Negative for neck swelling, polydipsia, polyuria, polyphagia, and marked weight changes, Hematologic/Lymphatic: Negative for swollen nodes, abnormal bleeding, and unusual bruising. 00:31 ENT: Positive for hoarseness, sinus congestion, sore throat. Exam: 00:31 Constitutional: This is a well developed, well nourished patient who is awake, alert, lisa and in no acute distress. Head/Face: Normocephalic, atraumatic. Eyes: Pupils equal round and reactive to light, extra-ocular motions intact. Lids and lashes normal. Conjunctiva and sclera are non-icteric and not injected. Cornea within normal limits. Periorbital areas with no swelling, redness, or edema. Neck: Trachea midline, no thyromegaly or masses palpated, and no cervical lymphadenopathy. Supple, full range of motion without nuchal rigidity, or vertebral point tenderness. No Meningismus. Chest/axilla: Normal chest wall appearance and motion. Nontender with no deformity. No lesions are appreciated. Cardiovascular: Regular rate and rhythm with a normal S1 and S2. No gallops, murmurs, or rubs. Normal PMI, no JVD. No pulse deficits. Respiratory: Lungs have equal breath sounds bilaterally, clear to auscultation and percussion. No rales, rhonchi or wheezes noted. No increased work of breathing, no retractions or nasal flaring. Abdomen/GI: Soft, non-tender, with normal bowel sounds. No distension or tympany. No guarding or rebound. No evidence of tenderness throughout. Back: No spinal tenderness. No costovertebral tenderness. Full range of motion. Female : Normal external genitalia. Skin: Warm, dry with normal turgor. Normal color with no rashes, no lesions, and no evidence of cellulitis. MS/ Extremity: Pulses equal, no cyanosis. Neurovascular intact. Full, normal range of motion. Neuro: Awake and alert, GCS 15, oriented to person, place, time, and situation. Cranial nerves II-XII grossly intact. Motor strength 5/5 in all extremities. Sensory grossly intact. Cerebellar exam normal. Normal gait. Psych: Awake, alert, with orientation to person, place and time. Behavior, mood, and affect are within normal limits. 03:34 ENT: Mouth: is normal, no acute changes, Lips: normal, Oral mucosa: normal, moist, lisa Gums: normal with healthy appearance, Tongue: is normal, Posterior pharynx: Airway: no evidence of obstruction, Tonsils: bilaterally enlarged, Uvula: midline, swelling, that is mild, erythema, that is mild, exudate, is not appreciated, peritonsillar mass, is not appreciated, pooling of secretions, is not appreciated, Voice: is hoarse. 03:34 Respiratory: Breath sounds: rales, are not appreciated, bronchial sounds, are not appreciated, decreased breath sounds, are not appreciated, rhonchi, are not appreciated, stridor, is not appreciated. Vital Signs: 00:08 BP 159 / 85; Pulse 74; Resp 18; Temp 98.5(O); Pulse Ox 98% on R/A; Weight 72.57 kg; bs1 Height 5 ft. 1 in. (154.94 cm); Pain 0/10; 00:45 BP 164 / 72; Pulse 69; Resp 18; Pulse Ox 100% on R/A; bs1 01:11 BP 159 / 74; Pulse 81; Resp 21; Pulse Ox 100% on R/A; Pain 0/10; tl1 02:15 BP 120 / 61; Pulse 87; Resp 21; Pulse Ox 95% on R/A; Pain 0/10; tl1 03:39 BP 124 / 86; Pulse 64; Resp 18; Pulse Ox 95% on R/A; tl2 00:08 Body Mass Index 30.23 (72.57 kg, 154.94 cm) 1 MDM: 00:19 Patient medically screened. [facility] 00:32 Data reviewed: vital signs, nurses notes, lab test result(s), EKG, radiologic studies, [facility] CT scan, plain films. 11/09 00:29 Order name: Basic Metabolic Panel [facility] 11/09 00:29 Order name: CBC with Diff [facility] 11/09 00:29 Order name: Ckmb [facility] 11/09 00:29 Order name: CPK [facility] 11/09 00:29 Order name: LFT's [facility] 11/09 00:29 Order name: Magnesium; Complete Time: 01:35 [facility] 11/09 00:29 Order name: NT PRO-BNP; Complete Time: 01:35 [facility] 11/09 00:29 Order name: PT-INR; Complete Time: 00:55 [facility] 11/09 00:29 Order name: Ptt, Activated; Complete Time: 00:55 [facility] 11/09 00:29 Order name: Troponin (emerg Dept Use Only); Complete Time: 01:35 [facility] 11/09 00:29 Order name: Rapid Strep; Complete Time: 01:35 [facility] 11/09 00:30 Order name: Basic Metabolic Panel; Complete Time: 01:35 [facility] 11/09 00:30 Order name: CBC with Automated Diff; Complete Time: 00:55 [facility] 11/09 00:30 Order name: CKMB Creatine Kinase MB; Complete Time: 01:35 [facility] 11/09 00:29 Order name: XRAY Chest (1 view) [facility] 11/09 00:29 Order name: Soft Tissue Neck W/Contr CT [facility] 11/09 00:30 Order name: Creatine Phosphokinase; Complete Time: 01:35 [facility] 11/09 00:30 Order name: Liver (Hepatic) Function; Complete Time: 01:35 [facility] 11/09 01:30 Order name: Throat Culture [facility] 11/09 01:44 Order name: Urine Dipstick--Ancillary (enter results); Complete Time: 03:11 [facility] 11/09 02:52 Order name: Glucose, Ancillary Testing; Complete Time: 03:11 [facility] 11/09 00:29 Order name: EKG; Complete Time: 00:30 [facility] 11/09 00:29 Order name: Cardiac monitoring; Complete Time: 00:32 [facility] 11/09 00:29 Order name: EKG - Nurse/Tech; Complete Time: 00:46 [facility] 11/09 00:29 Order name: IV Saline Lock; Complete Time: 00:32 [facility] 11/09 00:29 Order name: Labs collected and sent; Complete Time: 00:32 [facility] 11/09 00:29 Order name: O2 Per Protocol; Complete Time: 00:32 [facility] 11/09 00:29 Order name: O2 Sat Monitoring; Complete Time: 00:32 [facility] 11/09 00:29 Order name: Urine Dipstick-Ancillary (obtain specimen); Complete Time: 00:32 [facility] Administered Medications: 00:44 Drug: Rocephin - (cefTRIAXone) 1 grams Route: IVPB; Infused Over: 30 mins; Site: left tl2 antecubital; 01:30 Follow up: IV Status: Completed infusion tl2 00:44 Drug: Albuterol - atroVENT (3:1) (2.5 mg - 0.5 mg) 3 ml Route: Nebulizer; tl2 00:59 Follow up: Response: No adverse reaction bs1 00:45 Drug: SOLU-Medrol 125 mg Route: IVP; Site: left antecubital; tl2 01:45 Follow up: Response: No adverse reaction bs1 00:45 Drug: Benadryl 25 mg Route: IVP; Site: left antecubital; tl2 01:44 Follow up: Response: No adverse reaction bs1 00:45 Drug: Pepcid 40 mg Route: IVP; Site: left antecubital; tl2 01:44 Follow up: Response: No adverse reaction bs1 00:45 Drug: Decadron - Dexamethasone 10 mg Route: IVP; Site: left antecubital; tl2 01:44 Follow up: Response: No adverse reaction bs1 00:46 Drug: NS 0.9% 1000 ml Route: IV; Rate: 125 ml/hr; Site: left antecubital; tl2 03:42 Follow up: IV Status: Order to discontinue infusion; IV Intake: 400ml tl2 00:46 Drug: NS 0.9% 250 ml Route: IV; Rate: bolus; Site: left antecubital; tl2 01:00 Follow up: IV Status: Completed infusion tl2 01:43 Drug: Insulin Regular Human 10 units {Co-Signature: tl2 (Magdalena Michele RN).} Route: bs1 Sub-Q; Site: right upper arm; 03:37 Follow up: Response: No adverse reaction; Marked relief of symptoms tl1 03:39 Drug: Augmentin 875 mg Route: PO; tl2 03:43 Follow up: Response: No adverse reaction; Medication administered at discharge. tl2 Point of Care Testing: Blood Glucose: 02:32 Blood Glucose: 263 mg/dL; tl2 Ranges: Critical Glucose Levels:Adult <50 mg/dl or >400 mg/dl <40 mg/dl or >180 mg/dl Disposition: 11/09/17 03:31 Discharged to Home. Impression: Acute laryngitis, Type 1 diabetes mellitus, Essential (primary) hypertension. - Condition is Fair. - Discharge Instructions: Type 1 Diabetes Mellitus, Diagnosis, Adult, Hypertension, Laryngitis, Hypertension, [id number], How to Take Your Blood Pressure, Bhel-it-Okze, Managing Your Hypertension, Laryngitis, [id number], Type 1 Diabetes Mellitus, Diagnosis, Adult, [id number]. - Prescriptions for Augmentin 875- 125 mg Oral Tablet - take 1 tablet by ORAL route every 12 hours for 10 days; 20 tablet. Zofran 4 mg Oral Tablet - take 1 tablet by ORAL route every 12 hours As needed; 15 tablet. Medrol (Anthony) 4 mg Oral Tablets, Dose Pack - take 1 tablet by ORAL route as directed - follow package instructions; 1 packet. - Medication Reconciliation Form, Thank You Letter, Antibiotic Education, Prescription Opioid Use form. - Follow up: Berry Suero MD; When: 2 - 3 days; Reason: Recheck today's complaints, Continuance of care, Re-evaluation by your physician. Follow up: Nusrat Burrows MD; When: 2 - 3 days; Reason: Recheck today's complaints, Continuance of care, Re-evaluation by your physician. - Problem is new. - Symptoms have improved. Signatures: Dispatcher [employer] EDMS Tian Stuart MD MD cha Knox, Taylor, RN RN tl2 Nataly Juarez RN RN bs1 Roselyn Evans RN tl1 Magdalena Michele RN tl2 Corrections: (The following items were deleted from the chart) 03:49 03:31 11/09/2017 03:31 Discharged to Home. Impression: Acute laryngitis; Type 1 tl2 diabetes mellitus; Essential (primary) hypertension. Condition is Fair. Forms are Medication Reconciliation Form, Thank You Letter, Antibiotic Education, Prescription Opioid Use. Follow up: Berry Suero; When: 2 - 3 days; Reason: Recheck today's complaints, Continuance of care, Re-evaluation by your physician. Follow up: Nusrat Burrows; When: 2 - 3 days; Reason: Recheck today's complaints, Continuance of care, Re-evaluation by your physician. Problem is new. Symptoms have improved. lisa
--- NOTE | 2017-11-09 03:32 | ER ---
Nurse's Notes [facility] Name: Robyn Carrion Age: 57 yrs Sex: Female : 1960 Arrival Date: 11/09/2017 Time: 00:03 Bed 2 Private MD: Berry Suero F Diagnosis: Acute laryngitis;Type 1 diabetes mellitus;Essential (primary) hypertension Presentation: 11/09 00:05 Presenting complaint: EMS states: "Patient woke up coughing, felt like she was bs1 choking,and vomited x1, patient did c/o some SOB,put 12L Nonrebreather 100% on oxygen.". Transition of care: patient was not received from another setting of care. Onset of symptoms was November 09, 2017. Risk Assessment: Do you want to hurt yourself or someone else? Patient reports no desire to harm self or others. Initial Sepsis Screen: Does the patient meet any 2 criteria? No. Patient's initial sepsis screen is negative. Does the patient have a suspected source of infection? No. Patient's initial sepsis screen is negative. Care prior to arrival: IV initiated. 20 GA, in the left antecubital area, Glucose check: 380 Oxygen administered. via a non-rebreather mask, 12 L O2,EKG Sinus Rhythm. 00:05 Method Of Arrival: EMS: [facility] bs1 00:05 Acuity: DARA 3 bs1 Historical: - Allergies: 00:18 HYDROCODONE; bs1 - Home Meds: 00:18 Creon 36,000-114,000- 180,000 unit Oral cpDR 2 caps tid with meal and 1 at bedtime bs1 [Active]; Lantus Sub-Q 47 unit daily [Active]; atorvastatin Oral once daily [Active]; Zofran (as hydrochloride) 4 mg Oral tab 2 tabs 3 times per day [Active]; Dicyclomine Oral [Active]; Amitiza oral oral [Active]; Dexilant 60 mg Oral CpDB 1 cap once daily [Active]; - PMHx: 00:18 GERD; TIA; Diabetes - IDDM; High Cholesterol; Hypertension; Pancreatitis; bs1 - PSHx: 00:18 x3 cardiac caths; Hysterectomy; back sx; Cholecystectomy; bs1 - Immunization history:: Adult Immunizations up to date. - Social history:: Smoking status: Patient/guardian denies using tobacco. - Ebola Screening: : Patient negative for fever greater than or equal to 101.5 degrees Fahrenheit, and additional compatible Ebola Virus Disease symptoms Patient denies exposure to infectious person. Screenin:52 Abuse screen: Denies threats or abuse. Nutritional screening: No deficits noted. bs1 Tuberculosis screening: No symptoms or risk factors identified. Fall Risk None identified. Assessment: 00:08 General: Appears in no apparent distress. uncomfortable, Behavior is cooperative, bs1 anxious. Pain: Denies pain. Neuro: Level of Consciousness is awake, alert, obeys commands, Oriented to person, place, time, situation, Appropriate for age Reports difficulty swallowing. Cardiovascular: Reports shortness of breath, Denies chest pain, Heart tones S1 S2 present Capillary refill < 3 seconds Patient's skin is warm and dry. Respiratory: Reports shortness of breath at rest on exertion cough that is non-productive, Airway is patent Trachea midline Respiratory effort is even, unlabored, Respiratory pattern is regular, symmetrical, patient sounds very hoarse Breath sounds are clear bilaterally. GI: Bowel sounds present X 4 quads. Reports vomiting. : No signs and/or symptoms were reported regarding the genitourinary system. EENT: Reports difficulty swallowing patient states "I feel like something is stuck in my throat, I feel like im chocking.". EENT: tonsils swollen. Derm: Skin is intact. Musculoskeletal: Circulation, motion, and sensation intact. Capillary refill < 3 seconds, Range of motion: intact in all extremities. 01:30 Reassessment: Patient appears in no apparent distress at this time. Patient and/or bs1 family updated on plan of care and expected duration. Pain level reassessed. Patient is alert, oriented x 3, equal unlabored respirations, skin warm/dry/pink. Informed patient of POC /pending ultrasound. Vital Signs: 00:08 BP 159 / 85; Pulse 74; Resp 18; Temp 98.5(O); Pulse Ox 98% on R/A; Weight 72.57 kg; bs1 Height 5 ft. 1 in. (154.94 cm); Pain 0/10; 00:45 BP 164 / 72; Pulse 69; Resp 18; Pulse Ox 100% on R/A; bs1 01:11 BP 159 / 74; Pulse 81; Resp 21; Pulse Ox 100% on R/A; Pain 0/10; tl1 02:15 BP 120 / 61; Pulse 87; Resp 21; Pulse Ox 95% on R/A; Pain 0/10; tl1 03:39 BP 124 / 86; Pulse 64; Resp 18; Pulse Ox 95% on R/A; tl2 00:08 Body Mass Index 30.23 (72.57 kg, 154.94 cm) bs1 ED Course: 00:03 Patient arrived in ED. tl2 00:04 Maintain EMS IV. Dressing intact. Good blood return noted. Site clean \\T\\ dry. Gauge \\T\\ tl 2 site: 20 g L AC. 00:15 Triage completed. bs1 00:18 Berry Suero MD is Private Physician. ds1 00:44 Nataly Juarez, HAIDER is Primary Nurse. bs1 00:44 Patient has correct armband on for positive identification. Placed in gown. Bed in low bs1 position. Call light in reach. Side rails up X 1. injection molding process technician on. Pulse ox on. NIBP on. Warm blanket given. 00:46 X-ray completed. Portable x-ray completed in exam room. Patient tolerated procedure kw well. 00:47 XRAY Chest (1 view) In Process Unspecified. EDMS 00:52 Arm band placed on right wrist. EKG completed in triage. Results shown to MD. bs1 01:25 Soft Tissue Neck W/Contr CT In Process Unspecified. EDMS 01:26 CT completed. Patient tolerated procedure well. Patient moved to CT via stretcher. Patient moved back from CT. 03:28 Berry Suero MD is Referral Physician. lisa 03:28 Nusrat Burrows MD is Referral Physician. lisa 03:39 No provider procedures requiring assistance completed. IV discontinued, intact, tl2 bleeding controlled, No redness/swelling at site. Pressure dressing applied. Administered Medications: 00:44 Drug: Rocephin - (cefTRIAXone) 1 grams Route: IVPB; Infused Over: 30 mins; Site: left tl2 antecubital; 01:30 Follow up: IV Status: Completed infusion tl2 00:44 Drug: Albuterol - atroVENT (3:1) (2.5 mg - 0.5 mg) 3 ml Route: Nebulizer; tl2 00:59 Follow up: Response: No adverse reaction bs1 00:45 Drug: SOLU-Medrol 125 mg Route: IVP; Site: left antecubital; tl2 01:45 Follow up: Response: No adverse reaction bs1 00:45 Drug: Benadryl 25 mg Route: IVP; Site: left antecubital; tl2 01:44 Follow up: Response: No adverse reaction bs1 00:45 Drug: Pepcid 40 mg Route: IVP; Site: left antecubital; tl2 01:44 Follow up: Response: No adverse reaction bs1 00:45 Drug: Decadron - Dexamethasone 10 mg Route: IVP; Site: left antecubital; tl2 01:44 Follow up: Response: No adverse reaction bs1 00:46 Drug: NS 0.9% 1000 ml Route: IV; Rate: 125 ml/hr; Site: left antecubital; tl2 03:42 Follow up: IV Status: Order to discontinue infusion; IV Intake: 400ml tl2 00:46 Drug: NS 0.9% 250 ml Route: IV; Rate: bolus; Site: left antecubital; tl2 01:00 Follow up: IV Status: Completed infusion tl2 01:43 Drug: Insulin Regular Human 10 units {Co-Signature: tl2 (Magdalena Michele RN).} Route: bs1 Sub-Q; Site: right upper arm; 03:37 Follow up: Response: No adverse reaction; Marked relief of symptoms tl1 03:39 Drug: Augmentin 875 mg Route: PO; tl2 03:43 Follow up: Response: No adverse reaction; Medication administered at discharge. tl2 Point of Care Testing: Blood Glucose: 02:32 Blood Glucose: 263 mg/dL; tl2 Ranges: Intake: 03:42 IV: 400ml; Total: 400ml. tl2 Outcome: 03:31 Discharge ordered by MD. gonzalez 03:39 Discharged to home ambulatory, with family. tl2 03:39 Condition: stable 03:39 Discharge instructions given to patient, family, Instructed on discharge instructions, follow up and referral plans. medication usage, Demonstrated understanding of instructions, follow-up care, medications, Prescriptions given X 3. 03:49 Patient left the ED. tl2 Signatures: Dispatcher [employer] Tian Bonilla MD MD cha Hagler, Ervin eh Lisha Shrestha ds1 Lexie Alonso kw Roselyn Evans, RN RN tl1 Magdalena Michele RN RN tl2 Nataly Juarez RN RN bs1 Magdalena Michele RN tl2 Corrections: (The following items were deleted from the chart) 00:39 00:18 Tian Stuart MD is Attending Physician. lisa tovar 01:48 00:08 Respiratory: Reports shortness of breath at rest on exertion cough that is bs1 non-productive, Airway is patent Trachea midline Respiratory effort is even, unlabored, Respiratory pattern is regular, symmetrical, Breath sounds are clear bilaterally. bs1 03:40 03:39 Discharge instructions given to patient, family, Instructed on discharge tl2 instructions, follow up and referral plans. medication usage, Demonstrated understanding of instructions, follow-up care, medications, Prescriptions given X 2, tl2
[2017-11-09] MEDS ORDERED: AMOX/K CLAV 875 MG TAB ONE (03:42)
[2017-11-09 03:55] VITALS: TEMP 98.5
[2017-11-09 03:58] VITALS: O2SAT 95
[2017-11-09 03:59] VITALS: BP 124/86
--- NOTE | 2017-11-09 07:24 | RAD REPORT ---
EXAM DESCRIPTION: Mohsen Single View11/09/2017 12:47 am CLINICAL HISTORY: cough COMPARISON: August 2017 FINDINGS: The lungs appear clear of acute infiltrate. The heart is normal size IMPRESSION: No acute abnormalities displayed
--- NOTE | 2017-11-09 08:11 | RAD REPORT ---
EXAM DESCRIPTION: CT - Soft Tissue Neck W/Contr - 11/09/2017 3:55 am CLINICAL HISTORY: Neck pain and dysphagia. Coughing COMPARISON: 2012 TECHNIQUE: Computed axial tomography of the neck was obtained. 50 cc Isovue-300 administered intrave nously. Coronal and sagittal reconstruction was performed A preliminary report was generated by [employer] and reviewed prior to this dictation All CT scans are performed using dose optimization technique as appropriate and may include automated exposure control or mA/KV adjustment according to patient size. FINDINGS: The tonsils are prominent bilaterally without significant change from 2012. The oropharynx is narrowed. The remainder of the pharynx, larynx, tongue base and subglottic trachea appear unremarkable. The parotid, submandibular glands are unremarkable. Subcentimeter thyroid nodules are noted No lymphadenopathy is seen. IMPRESSION: Prominence of the tonsils unchanged from 2012. The oropharynx is narrowed.
--- NOTE | 2017-11-09 11:41 | EKG ---
Test Date: 2017-11-09 Test Time: 00:37:01 Director Of Teacher Education: JOVON MEASUREMENT RESULTS: Intervals: Rate: 69 MN: 152 QRSD: 80 QT: 398 QTc: 426 [place]: P: 25 MN: 152 QRS: 3 T: 29 INTERPRETIVE STATEMENTS: Normal sinus rhythm Normal ECG Compared to ECG 09/04/2017 23:17:18 No significant changes Electronically Signed On 11-09-17 11:40:15 CDT by Jonathan Coffey
== END 2017-11-09 03:49 | disposition home or self-care (01) ==
LOC: ER 00:02
DX: J04.0 Acute laryngitis (principal); I10 Essential (primary) hypertension; E10.9 Type 1 diabetes mellitus without complications; E78.00 Pure hypercholesterolemia, unspecified; Z79.4 Long term (current) use of insulin; Z88.5 Allergy status to narcotic agent
CPT/HCPCS: 36415; 70491; 71045; 80048; 80076; 81003; 82550; 82553; 82962; 83735; 83880; 84484; 85025; 85610; 85730; 87070; 87081; 93005; 94640; 96361; 96365; 96372; 96375; 99285; J0696; J1100; J2930; J7030; Q9967

== ENCOUNTER 2017-12-28 12:35 | Observation (INO) | payer OTHER ==
[2017-12-28 13:21] LABS: Absolute Lymphocytes (CBC) 2.7 K/uL (0.7-4.9); Absolute Monocytes 0.6 K/uL (0.1-1.3); Absolute Neutrophil 6.5 K/uL (1.8-8.0); Basophils % 0.6 % (0-1.3); Eosinophils % 1.5 % (0-4.4); Hematocrit 43.4 % (36.0-45.0); Lymphocytes % 27.2 % (15.3-44.8); MCH 31.6 pg (27.0-35.0); MCV 90.1 fL (80-100); MPV 8.2 fL (7.6-11.3); Monocytes % 6.1 % (3.3-12.3); RBC Red Blood Cell Count 4.81 M/uL (3.86-4.86)
[2017-12-28] MEDS ORDERED: PANTOPRAZOLE 40 MG INJ ONE (13:23)
[2017-12-28] MEDS ORDERED: MAGNE/ALUM HYDROXD 30 ML UCUP ONE (13:23)
[2017-12-28] MEDS ORDERED: LIDOCAINE VISCOUS 2% SOLN 15 ML UDC ONE (13:23)
--- NOTE | 2017-12-28 13:44 | RAD REPORT ---
EXAM DESCRIPTION: Mohsen Single View12/28/2017 1:29 pm CLINICAL HISTORY: Chest pain COMPARISON: November 2017 FINDINGS: The lungs appear clear of acute infiltrate. The heart is normal size IMPRESSION: No acute abnormalities displayed
[2017-12-28 13:46] LABS: ALT/SGPT 47 U/L (12-78); AST/SGOT 41 U/L (15-37); Albumin 3.5 g/dL (3.4-5.0); Alkaline Phosphatase 145 U/L (45-117); BUN Blood Urea Nitrogen 17 mg/dL (7-18); Bicarbonate 25 mmol/L (21-32); Bilirubin Direct 0.2 mg/dL (0-0.2); Bilirubin Total 0.4 mg/dL (0.2-1.0); Glucose Level 192 mg/dL (74-106); Magnesium 2.2 mg/dL (1.8-2.4); NT PRO-BNP 33 pg/mL (<125); Potassium 3.7 mmol/L (3.5-5.1); Protein, Total 7.8 g/dL (6.4-8.2); Sodium Level 139 mmol/L (136-145); Troponin (Emerg Dept Use Only) < 0.02 ng/mL (0.0-0.045)
[2017-12-28 14:25] LABS: Protime INR 1.01
--- NOTE | 2017-12-28 15:36 | ER ---
Nurse's Notes [facility] Name: Robyn Carrion Age: 57 yrs Sex: Female : 1960 Arrival Date: 12/28/2017 Time: 12:38 Bed 24 Private MD: Berry Suero F Diagnosis: Chest pain, unspecified Presentation: 12/28 12:40 Presenting complaint: Patient states: She has been having substernal chest pressure for aj1 the past 2 days, today it has been getting worse and now her left arm is starting to feel heavy, her voice has been hoarse for the past 3 weeks. Reports N/V/D. Reports palpitations. Denies SOB. Breath sounds CTA. Transition of care: patient was not received from another setting of care. Onset of symptoms was December 26, 2017. Risk Assessment: Do you want to hurt yourself or someone else? Patient reports no desire to harm self or others. Initial Sepsis Screen: Does the patient meet any 2 criteria? No. Patient's initial sepsis screen is negative. Does the patient have a suspected source of infection? No. Patient's initial sepsis screen is negative. Care prior to arrival: None. 12:40 Method Of Arrival: Ambulatory aj1 12:40 Acuity: DARA 3 aj1 Triage Assessment: 12:45 General: Appears uncomfortable, Behavior is cooperative, agitated. Pain: Complains of aj1 pain in mid-sternal area Pain radiates to left arm Pain currently is 9 out of 10 on a pain scale. Quality of pain is described as pressure, Pain began 2-3 days ago. Is intermittent. Neuro: Level of Consciousness is awake, alert, obeys commands. Cardiovascular: Reports chest pain, nausea, palpitations, vomiting, Denies shortness of breath, Heart tones S1 S2 present Patient's skin is warm and dry. Chest pain is described as Pain is 9 out of 10 on a pain scale. quality is pressure, is located in substernal area radiates to left arm(s) episodes are intermittent. Respiratory: Airway is patent Respiratory effort is even, unlabored, Respiratory pattern is regular, symmetrical, Breath sounds are clear bilaterally. Derm: Skin is pink, warm \T\ dry. normal. Historical: - Allergies: 12:45 HYDROCODONE; aj1 - Home Meds: 12:45 Amitiza Oral [Active]; atorvastatin Oral once daily [Active]; Creon 36,000-114,000- aj1 180,000 unit Oral cpDR 2 caps tid with meal and 1 at bedtime [Active]; Dexilant 60 mg Oral CpDB 1 cap once daily [Active]; Dicyclomine Oral [Active]; Lantus Sub-Q 47 unit daily [Active]; Zofran (as hydrochloride) 4 mg Oral tab 2 tabs 3 times per day [Active]; - PMHx: 12:45 Diabetes - IDDM; GERD; High Cholesterol; Hypertension; Pancreatitis; TIA; aj1 - Immunization history:: Flu vaccine is not up to date. - Social history:: Smoking status: Patient/guardian denies using tobacco. - Ebola Screening: : Patient denies travel to an Ebola-affected area in the 21 days before illness onset. Screenin:05 Abuse screen: Denies threats or abuse. Denies injuries from another. Nutritional kr2 screening: No deficits noted. Tuberculosis screening: No symptoms or risk factors identified. Fall Risk None identified. Assessment: 13:05 General: Appears in no apparent distress. uncomfortable, well groomed, Behavior is kr2 calm, cooperative, appropriate for age. Pain: Complains of pain in chest Pain radiates to left arm Pain currently is 5 out of 10 on a pain scale. Quality of pain is described as pressure, radiating, Is continuous, Alleviated by nothing. Pain: Pain began several weeks ago, off and on. Neuro: Cardiovascular: Heart tones S1 S2 Patient's skin is warm and dry. Rhythm is sinus rhythm. Respiratory: Airway is patent Respiratory effort is even, unlabored, Respiratory pattern is regular, symmetrical. GI: Abdomen is flat, non-distended, Bowel sounds present X 4 quads. EENT: Oral mucosa is moist. Derm: Skin is intact, is healthy with good turgor, Skin is pink, warm \T\ dry. Musculoskeletal: Circulation, motion, and sensation intact. 14:00 Reassessment: Patient appears in no apparent distress at this time. Patient and/or kr2 family updated on plan of care and expected duration. Pain level reassessed. Patient is alert, oriented x 3, equal unlabored respirations, skin warm/dry/pink. 15:00 Reassessment: Patient appears in no apparent distress at this time. Patient and/or kr2 family updated on plan of care and expected duration. Pain level reassessed. Patient is alert, oriented x 3, equal unlabored respirations, skin warm/dry/pink. 16:06 Reassessment: Patient appears in no apparent distress at this time. Patient and/or kr2 family updated on plan of care and expected duration. Pain level reassessed. Patient is alert, oriented x 3, equal unlabored respirations, skin warm/dry/pink. 17:35 Reassessment: Patient appears in no apparent distress at this time. Patient and/or kr2 family updated on plan of care and expected duration. Pain level reassessed. Patient is alert, oriented x 3, equal unlabored respirations, skin warm/dry/pink. 18:01 Reassessment: Patient appears in no apparent distress at this time. Patient and/or kr2 family updated on plan of care and expected duration. Pain level reassessed. Patient is alert, oriented x 3, equal unlabored respirations, skin warm/dry/pink. Vital Signs: 12:45 BP 185 / 90; Pulse 75; Resp 20; Temp 97.4; Pulse Ox 98% on R/A; Weight 71.67 kg (R); aj1 Height 5 ft. 2 in. (157.48 cm) (R); Pain 9/10; 13:00 BP 186 / 91 LA Supine (auto/reg); Pulse 77; Resp 20 S; Pulse Ox 97% on R/A; Pain 0/10; jp3 14:00 BP 124 / 57 LA (auto/reg); Pulse 69; Resp 20 S; Pulse Ox 98% on R/A; jp3 16:07 BP 147 / 78; Pulse 65; Resp 19; Pulse Ox 98% on R/A; kr2 17:35 BP 135 / 87; Pulse 61; Resp 17; Pulse Ox 98% ; kr2 12:45 Body Mass Index 28.90 (71.67 kg, 157.48 cm) aj1 13:00 Pt reports no pain but pressure sensation jp3 ED Course: 12:38 Patient arrived in ED. sb2 12:39 Berry Suero MD is Private Physician. sb2 12:44 Triage completed. aj1 12:45 Arm band placed on Patient placed in an exam room. aj1 12:54 [facility]ion FNP-C [facility] kb 12:54 Jonel Still MD is Attending Physician. kb 13:00 Lyla Harmon, RN is Primary Nurse. kr2 13:00 Patient maintains SpO2 saturation greater than 95% on room air. kr2 13:01 Placed in gown. Bed in low position. Call light in reach. Side rails up X 1. Pulse ox jp3 on. NIBP on. 13:05 Inserted saline lock: 22 gauge in right forearm, using aseptic technique. Blood kr2 collected. 13:19 EKG done, by vocational technical education director. reviewed by Tracy ROBLREO. at1 13:29 XRAY Chest (1 view) In Process Unspecified. EDMS 15:35 Berry Suero MD is Hospitalizing Provider. kb 18:01 No provider procedures requiring assistance completed. Patient admitted, IV remains in kr2 place. Administered Medications: 13:26 Drug: ProTONIX 40 mg Route: IVP; Site: right forearm; kr2 15:58 Follow up: Response: No adverse reaction kr2 13:27 Drug: GI Cocktail without - (Maalox Suspension 30 ml, Lidocaine Liquid 2 % 15 kr2 ml) Route: PO; 14:30 Follow up: Response: No adverse reaction; Pain is decreased kr2 15:45 Drug: Aspirin Chewable Tablet 324 mg Route: PO; kr2 18:00 Follow up: Response: No adverse reaction kr2 Outcome: 15:35 Decision to Hospitalize by Provider. kb 18:01 Admitted to Tele accompanied by tech, family with patient, via wheelchair, room 409, kr2 with chart, Report called to Manuel Garcia RN 18:01 Condition: stable 18:02 Patient left the ED. kr2 Signatures: Dispatcher [employer] EDMD Tracy Carrion FNP-C FNP-Dafne Brown RN RN audra1 Harriet Yang, robotics engineer EKG Tat1 Lyla Harmon, RN RN kr2 Mandi Lagunas sb2 Jose Rodarte jp3
--- NOTE | 2017-12-28 15:36 | EDPHYS ---
Physician Documentation [facility] Name: Robyn Carrion Age: 57 yrs Sex: Female : 1960 Arrival Date: 12/28/2017 Time: 12:38 Bed 24 Private MD: Berry Suero F ED Physician Jonel Still HPI: 12/28 14:43 This 57 yrs old Female presents to ER via Ambulatory with complaints of Chest kb Pressure. 14:43 The patient or guardian reports chest pain that is located primarily in the substernal kb area, anterior chest wall, left. Onset: 3 day(s) ago, and became worse today. The pain radiates to the left arm. Associated signs and symptoms: The patient has no apparent associated signs or symptoms. The chest pain is described as a pressure. Duration: The patient or guardian reports a single episode. Modifying factors: The symptoms are alleviated by nothing. the symptoms are aggravated by nothing. Severity of pain: At its worst the pain was moderate in the emergency department the pain is unchanged. The patient has not experienced similar symptoms in the past. The patient has not recently seen a physician. Historical: - Allergies: 12:45 HYDROCODONE; aj1 - Home Meds: 12:45 Amitiza Oral [Active]; atorvastatin Oral once daily [Active]; Creon 36,000-114,000- aj1 180,000 unit Oral cpDR 2 caps tid with meal and 1 at bedtime [Active]; Dexilant 60 mg Oral CpDB 1 cap once daily [Active]; Dicyclomine Oral [Active]; Lantus Sub-Q 47 unit daily [Active]; Zofran (as hydrochloride) 4 mg Oral tab 2 tabs 3 times per day [Active]; - PMHx: 12:45 Diabetes - IDDM; GERD; High Cholesterol; Hypertension; Pancreatitis; TIA; aj1 - Immunization history:: Flu vaccine is not up to date. - Social history:: Smoking status: Patient/guardian denies using tobacco. - Ebola Screening: : Patient denies travel to an Ebola-affected area in the 21 days before illness onset. ROS: 14:42 Constitutional: Negative for fever, chills, and weight loss, Neck: Negative for injury, kb pain, and swelling, Respiratory: Negative for shortness of breath, cough, wheezing, and pleuritic chest pain, Abdomen/GI: Negative for abdominal pain, nausea, vomiting, diarrhea, and constipation, Back: Negative for injury and pain, : Negative for injury, bleeding, discharge, and swelling, MS/Extremity: Negative for injury and deformity, Skin: Negative for injury, rash, and discoloration, Neuro: Negative for headache, weakness, numbness, tingling, and seizure. 14:42 Cardiovascular: Positive for chest pain, Negative for edema, orthopnea, palpitations, paroxysmal nocturnal dyspnea. Exam: 14:42 Constitutional: This is a well developed, well nourished patient who is awake, alert, kb and in no acute distress. Head/Face: Normocephalic, atraumatic. Chest/axilla: Normal chest wall appearance and motion. Nontender with no deformity. No lesions are appreciated. Cardiovascular: Regular rate and rhythm with a normal S1 and S2. No gallops, murmurs, or rubs. Normal PMI, no JVD. No pulse deficits. Respiratory: Lungs have equal breath sounds bilaterally, clear to auscultation and percussion. No rales, rhonchi or wheezes noted. No increased work of breathing, no retractions or nasal flaring. Abdomen/GI: Soft, non-tender, with normal bowel sounds. No distension or tympany. No guarding or rebound. No evidence of tenderness throughout. Back: No spinal tenderness. No costovertebral tenderness. Full range of motion. Skin: Warm, dry with normal turgor. Normal color with no rashes, no lesions, and no evidence of cellulitis. MS/ Extremity: Pulses equal, no cyanosis. Neurovascular intact. Full, normal range of motion. Neuro: Awake and alert, GCS 15, oriented to person, place, time, and situation. Cranial nerves II-XII grossly intact. Motor strength 5/5 in all extremities. Sensory grossly intact. Cerebellar exam normal. Normal gait. Vital Signs: 12:45 BP 185 / 90; Pulse 75; Resp 20; Temp 97.4; Pulse Ox 98% on R/A; Weight 71.67 kg (R); aj1 Height 5 ft. 2 in. (157.48 cm) (R); Pain 9/10; 13:00 BP 186 / 91 LA Supine (auto/reg); Pulse 77; Resp 20 S; Pulse Ox 97% on R/A; Pain 0/10; jp3 14:00 BP 124 / 57 LA (auto/reg); Pulse 69; Resp 20 S; Pulse Ox 98% on R/A; jp3 16:07 BP 147 / 78; Pulse 65; Resp 19; Pulse Ox 98% on R/A; kr2 17:35 BP 135 / 87; Pulse 61; Resp 17; Pulse Ox 98% ; kr2 12:45 Body Mass Index 28.90 (71.67 kg, 157.48 cm) aj1 13:00 Pt reports no pain but pressure sensation jp3 MDM: 12:54 Patient medically screened. kb 14:41 Data reviewed: vital signs, nurses notes. Data interpreted: Pulse oximetry: on room air kb is 98 %. Interpretation: normal. Counseling: I had a detailed discussion with the patient and/or guardian regarding: the historical points, exam findings, and any diagnostic results supporting the discharge/admit diagnosis, lab results, radiology results, the need for further work-up and treatment in the hospital. Physician consultation: Berry Suero MD was called at 14:42, regarding admission, to the telemetry unit. patient's condition, message left . 12/28 13:01 Order name: Basic Metabolic Panel; Complete Time: 14:15 kb 12/28 13:01 Order name: CBC with Diff; Complete Time: 14:15 kb 12/28 13:01 Order name: LFT's; Complete Time: 14:15 kb 12/28 13:01 Order name: Magnesium; Complete Time: 14:15 kb 12/28 13:01 Order name: NT PRO-BNP; Complete Time: 14:15 kb 12/28 13:01 Order name: PT-INR; Complete Time: 14:31 kb 12/28 13:01 Order name: Troponin (emerg Dept Use Only); Complete Time: 14:15 kb 12/28 13:01 Order name: XRAY Chest (1 view); Complete Time: 14:15 kb 12/28 13:01 Order name: EKG; Complete Time: 13:02 kb 12/28 13:01 Order name: Cardiac monitoring; Complete Time: 13:27 kb 12/28 13:01 Order name: EKG - Nurse/Tech; Complete Time: 15:58 kb 12/28 13:01 Order name: IV Saline Lock; Complete Time: 13:28 kb 12/28 13:01 Order name: Labs collected and sent; Complete Time: 13:28 kb 12/28 13:01 Order name: O2 Per Protocol; Complete Time: 13:28 kb 12/28 13:01 Order name: O2 Sat Monitoring; Complete Time: 13:28 kb Administered Medications: 13:26 Drug: ProTONIX 40 mg Route: IVP; Site: right forearm; kr2 15:58 Follow up: Response: No adverse reaction kr2 13:27 Drug: GI Cocktail without - (Maalox Suspension 30 ml, Lidocaine Liquid 2 % 15 kr2 ml) Route: PO; 14:30 Follow up: Response: No adverse reaction; Pain is decreased kr2 15:45 Drug: Aspirin Chewable Tablet 324 mg Route: PO; kr2 18:00 Follow up: Response: No adverse reaction kr2 Disposition: 12/28/17 15:35 Hospitalization ordered by Berry Suero for Observation. Preliminary diagnosis is Chest pain, unspecified. - Bed requested for Telemetry/MedSurg (observation). - Status is Observation. kr2 - Condition is Stable. - Problem is new. - Symptoms have improved. UTI on Admission? No Addendum: 12/31/2017 17:59 Co-signature as Attending Physician, Jonel Still MD. g s Signatures: Dispatcher [employer] EDCA Tracy Carrion, BEE-C REGIONAL TRANSPORTATION MANAGER-CkDafne Lamar, RN RN aj1 Jonel Still MD MD gs Reaves, Karey, RN RN kr2 Yesenia Silveira Corrections: (The following items were deleted from the chart) 12/28 17:17 15:35 Hospitalization Ordered by Berry Suero MD for Observation. Preliminary eb diagnosis is Chest pain, unspecified. Bed requested for Telemetry/MedSurg (observation). Status is Observation. Condition is Stable. Problem is new. Symptoms have improved. UTI on Admission? No. kb 18:02 17:17 12/28/2017 15:35 Hospitalization Ordered by Berry Suero MD for Observation. kr2 Preliminary diagnosis is Chest pain, unspecified. Bed requested for Telemetry/MedSurg (observation). Status is Observation. Condition is Stable. Problem is new. Symptoms have improved. UTI on Admission? No. eb
[2017-12-28] MEDS ORDERED: ASPIRIN 81 MG CHEWABLE TABLET ONE (15:48)
[2017-12-28 18:10] VITALS: O2SAT 98
[2017-12-28] MEDS ORDERED: ACETAMINOPHEN 500 MG TAB PO PRN (18:13)
[2017-12-28 18:22] VITALS: BMI 29.0
[2017-12-29] MEDS ORDERED: GLUCAGON 1 MG/VIAL IM PRN (00:07)
[2017-12-29] MEDS ORDERED: D50W 25 GM/50 ML SYRINGE IV PRN (00:07)
[2017-12-29 01:02] LABS: Urine Appearance CLEAR; Urine Bilirubin NEGATIVE (NEG); Urine Blood NEGATIVE (NEG); Urine Color YELLOW; Urine Glucose NEGATIVE (NEG); Urine Microscopic Reflex NO UMIC; Urine Protein NEGATIVE (NEG); Urine Specific Gravity 1.025 (1.005-1.030); Urine pH 6.5 (5.0-7.0)
[2017-12-29 06:34] LABS: Potassium 3.8 mmol/L (3.5-5.1)
[2017-12-29 06:39] LABS: Absolute Lymphocytes (CBC) 2.5 K/uL (0.7-4.9); Absolute Monocytes 0.5 K/uL (0.1-1.3); Absolute Neutrophil 5.9 K/uL (1.8-8.0); Basophils % 0.5 % (0-1.3); Eosinophils % 1.8 % (0-4.4); Hematocrit 38.8 % (36.0-45.0); Lymphocytes % 27.3 % (15.3-44.8); MCH 31.9 pg (27.0-35.0); MCV 90.4 fL (80-100); MPV 8.2 fL (7.6-11.3); Monocytes % 5.8 % (3.3-12.3)
[2017-12-29] MEDS ORDERED: INSULIN -REGULAR HUMAN 50 UNIT/0.5 ML ML SQ SCH (07:30)
[2017-12-29 08:15] VITALS: BP 124/60; TEMP 97.8
[2017-12-29] MEDS ORDERED: ASPIRIN EC 81 MG TAB PO SCH (09:00)
--- NOTE | 2017-12-29 10:58 | EKG ---
Test Date: 2017-12-28 Test Time: 13:12:16 Veterinary Surgery Technologist: AG/S MEASUREMENT RESULTS: Intervals: Rate: 75 MI: 156 QRSD: 80 QT: 422 QTc: 471 [place]: P: 7 MI: 156 QRS: -14 T: 34 INTERPRETIVE STATEMENTS: Normal sinus rhythm Normal ECG Compared to ECG 11/09/2017 00:37:01 No significant changes Electronically Signed On 12-29-17 10:55:44 CDT by Tj Castro
--- NOTE | 2017-12-30 07:14 | SS ---
Date of Discharge: 12/29/2017 Addendum: I have instructed also the patient on discharge that she follow up with Dr. Capellan, and if her symptoms become more recurrent and resistant, and if following up with GI would not relieve th at then we may consider another regular stress test; however, we will follow on this with the patient next week. IVIS/MODL Voice ID: [id number] Report ID: [id number]
--- NOTE | 2017-12-30 12:01 | SS ---
Date of Discharge: 12/29/2017 History Of Present Illness: A 57-year-old female with history of gastroesophageal reflux disease ciara ng with hiatal hernia. The patient for about a week and started having and have chest dis comfort in the area, because of hiatal hernia. She said she is used to that feeling; however, this t dave, it became more intense and severe for her. She came to emergency room. The ER physician though t that the patient needs to be observed for 24 hours for her chest pain, went ahead and did that. Th e patient at this time has no chest pain. She is feeling well. No increased shortness of breath. S he had no complaint. Review of Systems: Cardiovascular: No palpitation. No dizziness. Respiratory: No complaint. No shortness of breath. Gastrointestinal: As above. Genitourinary: No complaint. Skeletomuscular: No complaint. Neuro logical: No complaint. Past Medical History: 1.As above. 2.Type 2 diabetes mellitus. 3.Hyperlipidemia. 4.Hypertension. Past Surgical History: The patient has had cholecystectomy, hysterectomy, and low back surgery. Social History: No smoking, alcohol, or drug abuse. Family History: Noncontributory. Medications: Include atorvastatin 20 mg p.o. daily, Ventolin 20 mg p.o. q.6 hours p.r.n., Lantus 30 units subcutaneous daily, lisinopril 10 mg p.o. daily, p.o. daily, Zofran 8 mg p.o. q.8 ho urs, Protonix 40 mg p.o. daily. Allergies: INCLUDE HYDROCODONE, CODEINE. Physical Examination: General: The patient is sitting, in no acute distress. Vital Signs: Blood pressure 124/60, pulse 52, temperature 97.8. Heart: Regular rate. Slightly bradycardic. No gallop. Chest: Clear to auscultation. Abdomen: Soft, benign. Neurological Examination: Alert, oriented, grossly intact. Extremities: No edema. No cyanosis. Peripheral pulses are felt. Diagnostic Data: Chest x-ray, no acute pathology. EKG showed normal sinus rhythm, normal EKG. Laboratory Data: CBC nonrevealing. Chemistry, blood sugar fingersticks noted. BUN 21, creatinine 0 .70. Troponin less than 0.02; repeated was less than 0.02. Hospital Course: Patient on telemetry is in sinus rhythm. We will continue the home medicines for c hronic medical illnesses. Monitor the blood sugar and insulin sliding scale. The patient has had le ft heart catheterization by Cardiology on 08/17/2016, which was completely normal. After reviewing t his and the patient is clinically stable, I think symptoms are mainly from her gastroesophageal reflu x disease and the hiatal hernia. The patient is following up with Dr. Capellan for that. I think th at the patient is stable enough to be discharged, to continue her home medicines, and we will see her back next week for followup, and look discharge orders for details. MFS/MODL Voice ID: [id number] Report ID: [id number]
== END 2017-12-29 13:25 | disposition home or self-care (01) ==
LOC: ER 12:35 → ERHOLD 16:12 → 4TH 17:49
PROVIDERS: ADMIT Internal Medicine; ATTEND Internal Medicine
DX: R07.9 Chest pain, unspecified (principal); K21.9 Gastro-esophageal reflux disease without esophagitis; K44.9 Diaphragmatic hernia without obstruction or gangrene; E11.9 Type 2 diabetes mellitus without complications; E78.5 Hyperlipidemia, unspecified; I10 Essential (primary) hypertension; Z86.73 Personal history of transient ischemic attack (TIA), and cerebral infarction without residual deficits
CPT/HCPCS: 36415; 71045; 80048; 80076; 81003; 82962; 83735; 83880; 84484; 85025; 85610; 93005; 96374; 99285; C9113; G0378

== ENCOUNTER 2018-05-31 15:55 | Emergency (ER) | payer OTHER ==
--- OUTSIDE RECORDS SUMMARY | 2018-05-31 15:58 | XMS REPORT | Summary of Care ---
:1960 Author Name Antoinette Stuart M.A. Address [facility] Unavailable , Care Team Providers Name Role Phone MARISELA Gomez, WILL Unavailable Unavailable CONCHIS EPPS, CARLOS JOHNSON Unavailable Unavailable MARISELA DO [facility], WILL M Unavailable Unavailable Unavailable Unavailable Unavailable Functional Status Name Dates Details Functional status health issues are not documented Status: Name Dates Details Cognitive status health issues are not documented Status: Problems Name Dates Details Hyperlipidemia (272.4, E78.5) Status: Active Hypertension (401.9, I10) Status: Active Diabetes (250.00, E11.9) Status: Active Medications Name Dates Details Medications not documented Allergies and Adverse Reactions Name Dates Details Allergy history not documented Status: Procedures Procedure Dates Details Procedures not documented Immunization Name Dates Details Immunizations not documented Family History Name Dates Details Family history of diabetes mellitus (V18.0, Z83.3) Comments: Other Status: Active Family history of hypertension (V17.49, Z82.49) Comments: Other Status: Active Family history of Heart problem (429.9, I51.9) Comments: Other Status: Active Social History Name Dates Details - Status: Name Dates Details Former smoker Vital Signs Date Test Result Details [id number] Height 62 in Status: Weight 154.9 lb Status: Body Mass Index Calculated 28.33 kg/m2 Status: Body Surface Area Calculated 1.71 m2 Status: [id number] BP Systolic 127 mm[Hg] Status: BP Diastolic 76 mm[Hg] Status: Height 62 in Status: Weight 155.6 lb Status: Body Mass Index Calculated 28.46 kg/m2 Status: Body Surface Area Calculated 1.72 m2 Status: Temperature 97 f Status: Heart Rate 73 /min Status: Results Date Description Value Details Results not documented Plan of Care Name Dates Details Planned Observations Planned Goals not documented Planned Encounters Appointment; WILL ANTONIO D.O. On: 09-Aug-2018 9:15 Instructions Name Dates Details Instructions not documented Encounters Appointment; WILL ANTONIO D.O. On: 11-Jan-2018 10:30 Encounter Diagnosis: Problem not documented Appointment; WILL ANTONIO D.O. On: 14-Feb-2018 8:15 Encounter Diagnosis: Problem not documented Appointment; CYRIL MACK M.D. On: 06-Mar-2018 8:30 Encounter Diagnosis: Problem not documented Appointment; WILL ANTONIO D.O. On: 22-Mar-2018 10:30 Encounter Diagnosis: Problem not documented Appointment; WILL ANTONIO D.O. On: 27-Mar-2018 10:30 Encounter Diagnosis: Problem not documented Appointment; WILL ANTONIO D.O. On: 19-Apr-2018 10:00 Encounter Diagnosis: Problem not documented Appointment; WILL ANTONIO D.O. On: 26-Apr-2018 10:15 Encounter Diagnosis: Problem not documented Appointment; WILL ANTONIO D.O. On: 24-May-2018 10:30 Encounter Diagnosis: Problem not documented
--- NOTE | 2018-05-31 16:25 | ER ---
Nurse's Notes [facility] Name: Robyn Carrion Age: 57 yrs Sex: Female : 1960 Arrival Date: 05/31/2018 Time: 15:57 Bed 27 Private MD: Berry Suero F Diagnosis: Urinary tract infection, site not specified Presentation: 05/31 16:04 Presenting complaint: Patient states: burning with urination and urgency that began 2 aa5 weeks ago. Pt denies back pain. Transition of care: patient was not received from another setting of care. Onset of symptoms was May 2018. Risk Assessment: Do you want to hurt yourself or someone else? Patient reports no desire to harm self or others. Initial Sepsis Screen: Does the patient meet any 2 criteria? No. Patient's initial sepsis screen is negative. Does the patient have a suspected source of infection? No. Patient's initial sepsis screen is negative. Care prior to arrival: None. 16:04 Method Of Arrival: Ambulatory aa5 16:04 Acuity: DARA 4 aa5 Historical: - Allergies: 16:05 HYDROCODONE; aa5 - Home Meds: 16:19 Amitiza Oral [Active]; atorvastatin Oral once daily [Active]; Creon 36,000-114,000- mg2 180,000 unit Oral cpDR 2 caps tid with meal and 1 at bedtime [Active]; Dexilant 60 mg Oral CpDB 1 cap once daily [Active]; Dicyclomine Oral [Active]; Lantus Sub-Q 47 unit daily [Active]; Zofran (as hydrochloride) 4 mg Oral tab 2 tabs 3 times per day [Active]; - PMHx: 16:05 Diabetes - IDDM; GERD; High Cholesterol; Hypertension; Pancreatitis; TIA; aa5 - Immunization history:: Flu vaccine is not up to date. - Social history:: Smoking status: Patient/guardian denies using tobacco. - Ebola Screening: : No symptoms or risks identified at this time. Screenin:17 Abuse screen: Denies threats or abuse. Denies injuries from another. Nutritional mg2 screening: No deficits noted. Tuberculosis screening: No symptoms or risk factors identified. Fall Risk None identified. Assessment: 16:17 General: Appears in no apparent distress. comfortable, Behavior is calm, cooperative. mg2 Pain:. : Reports burning with urination. Vital Signs: 16:05 BP 147 / 99; Pulse 82; Resp 16 S; Temp 98.4(TE); Pulse Ox 99% on R/A; Weight 69.85 kg aa5 (R); Height 5 ft. 2 in. (157.48 cm) (R); Pain 0/10; 16:05 Body Mass Index 28.17 (69.85 kg, 157.48 cm) aa5 ED Course: 15:57 Patient arrived in ED. as 15:58 Berry Suero MD is Private Physician. as 16:04 Arm band placed on. aa5 16:05 Triage completed. aa5 16:07 Justice Hawk RN is Primary Nurse. mg2 16:08 Guillaume Saavedra NP is PHCP. pm1 16:08 Eric Umana MD is Attending Physician. pm1 16:17 No provider procedures requiring assistance completed. mg2 16:19 Patient has correct armband on for positive identification. mg2 16:38 Patient did not have IV access during this emergency room visit. mg2 Administered Medications: 16:37 Drug: Rocephin (cefTRIAXone) 1 grams Route: IM; Site: left gluteus; mg2 16:38 Follow up: Response: No adverse reaction; Medication administered at discharge. mg2 Outcome: 16:25 Discharge ordered by MD. pm1 16:38 Discharged to home ambulatory, with family. mg2 16:38 Condition: stable 16:38 Discharge instructions given to patient, family, Instructed on discharge instructions, follow up and referral plans. medication usage, Demonstrated understanding of instructions, follow-up care, medications, Prescriptions given X 2. 16:39 Patient left the ED. mg2 Addendum: 06/03/2018 07:50 Addendum: Culture Results: Positive urine culture. No further action required. Bacteria i w sensitive to prescribed antibiotic. Signatures: Salma Kumar Irene, RN RN iw Dagmar Merino RN RN aa5 Guillaume Saavedra NP BOTANICAL TECHNICAL OFFICER pm1 Justice Hawk RN RN mg2 Corrections: (The following items were deleted from the chart) 05/31 16:38 16:38 IV discontinued, intact, bleeding controlled, No redness/swelling at site. mg2 Pressure dressing applied, mg2
--- NOTE | 2018-05-31 16:25 | EDPHYS ---
Physician Documentation [facility] Name: Robyn Carrion Age: 57 yrs Sex: Female : 1960 Arrival Date: 05/31/2018 Time: 15:57 Bed 27 Private MD: Berry Suero F ED Physician Eric Umana HPI: 05/31 16:24 This 57 yrs old Female presents to ER via Ambulatory with complaints of pm1 Urinary Problem. 16:24 The patient presents with urinary symptoms. Onset: The symptoms/episode began/occurred pm1 2 week(s) ago. Modifying factors: The symptoms are alleviated by nothing, the symptoms are aggravated by urinating. Associated signs and symptoms: Pertinent negatives: constipation, fever, abdominal pain, flank pain. Severity of symptoms: in the emergency department the symptoms are actually worse. The patient has experienced a previous episode, many years ago. The patient has been recently seen by a physician: for apparently unrelated complaints, colonoscopy 3 weeks ago. Historical: - Allergies: 16:05 HYDROCODONE; aa5 - Home Meds: 16:19 Amitiza Oral [Active]; atorvastatin Oral once daily [Active]; Creon 36,000-114,000- mg2 180,000 unit Oral cpDR 2 caps tid with meal and 1 at bedtime [Active]; Dexilant 60 mg Oral CpDB 1 cap once daily [Active]; Dicyclomine Oral [Active]; Lantus Sub-Q 47 unit daily [Active]; Zofran (as hydrochloride) 4 mg Oral tab 2 tabs 3 times per day [Active]; - PMHx: 16:05 Diabetes - IDDM; GERD; High Cholesterol; Hypertension; Pancreatitis; TIA; aa5 - Immunization history:: Flu vaccine is not up to date. - Social history:: Smoking status: Patient/guardian denies using tobacco. - Ebola Screening: : No symptoms or risks identified at this time. ROS: 16:24 Positive for burning with urination, Negative for flank pain, vaginal bleeding, pm1 vaginal discharge. 16:24 Constitutional: Negative for fever, chills, and weight loss, Eyes: Negative for injury, pain, redness, and discharge, ENT: Negative for injury, pain, and discharge, Neck: Negative for injury, pain, and swelling, Cardiovascular: Negative for chest pain, palpitations, and edema, Respiratory: Negative for shortness of breath, cough, wheezing, and pleuritic chest pain, Abdomen/GI: Negative for abdominal pain, nausea, vomiting, diarrhea, and constipation, Back: Negative for injury and pain, MS/Extremity: Negative for injury and deformity, Skin: Negative for injury, rash, and discoloration, Neuro: Negative for headache, weakness, numbness, tingling, and seizure. Exam: 16:24 Constitutional: This is a well developed, well nourished patient who is awake, alert, pm1 and in no acute distress. Head/Face: Normocephalic, atraumatic. Eyes: Pupils equal round and reactive to light, extra-ocular motions intact. Lids and lashes normal. Conjunctiva and sclera are non-icteric and not injected. Cornea within normal limits. Periorbital areas with no swelling, redness, or edema. ENT: Nares patent. No nasal discharge, no septal abnormalities noted. Tympanic membranes are normal and external auditory canals are clear. Oropharynx with no redness, swelling, or masses, exudates, or evidence of obstruction, uvula midline. Mucous membranes moist. Neck: Trachea midline, no thyromegaly or masses palpated, and no cervical lymphadenopathy. Supple, full range of motion without nuchal rigidity, or vertebral point tenderness. No Meningismus. Chest/axilla: Normal chest wall appearance and motion. Nontender with no deformity. No lesions are appreciated. Cardiovascular: Regular rate and rhythm with a normal S1 and S2. No gallops, murmurs, or rubs. Normal PMI, no JVD. No pulse deficits. Respiratory: Lungs have equal breath sounds bilaterally, clear to auscultation and percussion. No rales, rhonchi or wheezes noted. No increased work of breathing, no retractions or nasal flaring. Abdomen/GI: Soft, non-tender, with normal bowel sounds. No distension or tympany. No guarding or rebound. No evidence of tenderness throughout. Back: No spinal tenderness. No costovertebral tenderness. Full range of motion. Skin: Warm, dry with normal turgor. Normal color with no rashes, no lesions, and no evidence of cellulitis. MS/ Extremity: Pulses equal, no cyanosis. Neurovascular intact. Full, normal range of motion. 16:24 Neuro: Orientation: is normal, Motor: is normal, moves all fours, Sensation: is normal, no obvious gross deficits. Vital Signs: 16:05 BP 147 / 99; Pulse 82; Resp 16 S; Temp 98.4(TE); Pulse Ox 99% on R/A; Weight 69.85 kg aa5 (R); Height 5 ft. 2 in. (157.48 cm) (R); Pain 0/10; 16:05 Body Mass Index 28.17 (69.85 kg, 157.48 cm) aa5 MDM: 16:08 Patient medically screened. pm1 16:24 Data reviewed: vital signs. Data interpreted: Pulse oximetry: on room air is 99 %. pm1 Interpretation: normal. Counseling: I had a detailed discussion with the patient and/or guardian regarding: the historical points, exam findings, and any diagnostic results supporting the discharge/admit diagnosis, lab results, the need for outpatient follow up, to return to the emergency department if symptoms worsen or persist or if there are any questions or concerns that arise at home, pending urine culture in 2-3 days. 05/31 16:17 Order name: Urine Microscopic Only 1 05/31 16:18 Order name: Urine Culture 1 05/31 16:33 Order name: Urine Dipstick--Ancillary (enter results) 05/31 16:33 Order name: Urine --Ancillary (enter results) 05/31 16:36 Order name: Urine Microscopic Only; Complete Time: 20:47 EDMS 05/31 16:37 Order name: Urine --Ancillary; Complete Time: 20:47 EDMS 05/31 16:17 Order name: Urine Dipstick-Ancillary (obtain specimen); Complete Time: 16:26 pm1 05/31 16:17 Order name: Urine Test (obtain specimen); Complete Time: 16:26 pm1 05/31 16:37 Order name: Urine Dipstick-Ancillary; Complete Time: 20:47 EDMS Administered Medications: 16:37 Drug: Rocephin (cefTRIAXone) 1 grams Route: IM; Site: left gluteus; mg2 16:38 Follow up: Response: No adverse reaction; Medication administered at discharge. mg2 Disposition: 05/31/18 16:25 Discharged to Home. Impression: Urinary tract infection, site not specified. - Condition is Stable. - Discharge Instructions: Urinary Tract Infection, Adult, Antibiotic Medicine, Adult. - Prescriptions for Pyridium 200 mg Oral Tablet - take 1 tablet by ORAL route every 8 hours for 3 days; 9 tablet. Bactrim DS 800- 160 mg Oral Tablet - take 1 tablet by ORAL route every 12 hours for 10 days; 20 tablet. - Medication Reconciliation Form, Thank You Letter, Antibiotic Education, Prescription Opioid Use form. - Follow up: Emergency Department; When: As needed; Reason: Worsening of condition. Follow up: Private Physician; When: 2 - 3 days; Reason: Recheck today's complaints, Continuance of care, Re-evaluation by your physician. - Problem is new. - Symptoms have improved. Addendum: 06/03/2018 07:10 Co-signature as Attending Physician, Eric Umana MD I agree with the assessment and k dr plan of care. Signatures: Dispatcher [employer] EDMS Eric Umana MD MD [facility] Dagmar Merino RN RN aa5 Guillaume Saavedra NP [employer] DEVELOPER pm1 Justice Hawk RN RN mg2 Corrections: (The following items were deleted from the chart) 05/31 16:39 16:25 05/31/2018 16:25 Discharged to Home. Impression: Urinary tract infection, site mg2 not specified. Condition is Stable. Forms are Medication Reconciliation Form, Thank You Letter, Antibiotic Education, Prescription Opioid Use. Follow up: Emergency Department; When: As needed; Reason: Worsening of condition. Follow up: Private Physician; When: 2 - 3 days; Reason: Recheck today's complaints, Continuance of care, Re-evaluation by your physician. Problem is new. Symptoms have improved. pm1
[2018-05-31 16:35] LABS: Urine Bacteria 20-50 /HPF (<20)
[2018-05-31 16:36] LABS: Urine Blood 1+ (NEG); Urine Glucose NEGATIVE (NEG); Urine Protein 1+ (NEG); Urine Specific Gravity 1.025 (1.005-1.030)
[2018-05-31 16:36] LABS: Urine Culture Reflex Order NOT NEEDED; Urine Mucus 2+ /HPF (NONE SEEN)
[2018-05-31] MEDS ORDERED: CEFTRIAXONE 1000 MG/VIAL ONE (16:40)
[2018-05-31] MEDS ORDERED: LIDOCAINE 1% MPF 2 ML AMPULE ONE (16:40)
[2018-05-31 17:46] VITALS: BP 147/99; TEMP 98.4; O2SAT 99
== END 2018-05-31 16:39 | disposition home or self-care (01) ==
LOC: ER 15:55
DX: N39.0 Urinary tract infection, site not specified (principal); I10 Essential (primary) hypertension; E11.9 Type 2 diabetes mellitus without complications; E78.00 Pure hypercholesterolemia, unspecified; Z79.4 Long term (current) use of insulin; Z88.5 Allergy status to narcotic agent; Z86.73 Personal history of transient ischemic attack (TIA), and cerebral infarction without residual deficits
CPT/HCPCS: 81025; 87077; 87086; 87088; 87186; 96372; 99283; J2001; 81003; 81015

== ENCOUNTER 2018-10-13 18:13 | Inpatient (IN) | payer OTHER ==
--- OUTSIDE RECORDS SUMMARY | 2018-10-13 18:16 | XMS REPORT | Summary of Care ---
:1960 Author Name Antoinette Stuart M.A. Address [facility] Unavailable , Care Team Providers Name Role Phone Antoinette Stuart M.A. Unavailable Unavailable CONCHIS EPPS, CARLOS JOHNSON Unavailable Unavailable MARISELA MARSHALL [facility], WILL Guajardo Unavailable Unavailable Unavailable Unavailable Unavailable Functional Status Name Dates Details Functional status health issues are not documented Status: Name Dates Details Cognitive status health issues are not documented Status: Problems Name Dates Details Follow up (V67.9, Z09) Status: Active Diabetes (250.00, E11.9) Status: Active Hyperlipidemia (272.4, E78.5) Status: Active Hypertension (401.9, I10) Status: Active Medications Name Dates Details Medications not documented Allergies and Adverse Reactions Name Dates Details Allergy history not documented Status: Procedures Procedure Dates Details Procedures not documented Immunization Name Dates Details Immunizations not documented Family History Name Dates Details Family history of diabetes mellitus (V18.0, Z83.3) Comments: Other Status: Active Family history of Heart problem (429.9, I51.9) Comments: Other Status: Active Family history of hypertension (V17.49, Z82.49) Comments: Other Status: Active Social History Name Dates Details - Status: Name Dates Details Former smoker Vital Signs Date Test Result Details No Known Vitals to report Results Date Description Value Details Results not documented Plan of Care Name Dates Details Planned Observations Planned Goals not documented Instructions Name Dates Details Instructions not documented [...]
--- NOTE | 2018-10-13 19:54 | RAD REPORT ---
EXAM DESCRIPTION: RAD - Chest Single View - 10/13/2018 7:38 pm CLINICAL HISTORY: Abdominal pain COMPARISON: December 2017 TECHNIQUE: AP portable chest image was obtained 1935 hours . FINDINGS: Lungs are clear. Heart and vasculature are normal. No measurable pleural effusion and no p neumothorax. No acute bony abnormality seen. No acute aortic findings suspected. IMPRESSION: No acute cardiopulmonary process. No significant interval change.
[2018-10-13 19:56] LABS: Absolute Lymphocytes (CBC) 2.9 K/uL (0.7-4.9); Basophils % 0.7 % (0-1.3); Eosinophils % 1.4 % (0-4.4); Hematocrit 42.2 % (36.0-45.0); Lymphocytes % 27.7 % (15.3-44.8); Monocytes % 6.1 % (3.3-12.3); RBC Red Blood Cell Count 4.63 M/uL (3.86-4.86)
[2018-10-13 19:57] LABS: Protime INR 0.92
[2018-10-13 20:11] LABS: ALT/SGPT 33 U/L (12-78); AST/SGOT 24 U/L (15-37); Albumin 3.6 g/dL (3.4-5.0); Alkaline Phosphatase 154 U/L (45-117); BUN Blood Urea Nitrogen 24 mg/dL (7-18); Bicarbonate 24 mmol/L (21-32); Bilirubin Direct < 0.1 mg/dL (0-0.2); Bilirubin Total 0.3 mg/dL (0.2-1.0); Glucose Level 213 mg/dL (74-106); Lipase 158 U/L (73-393); Magnesium 2.2 mg/dL (1.8-2.4); NT PRO-BNP 9 pg/mL (<125); Potassium 3.9 mmol/L (3.5-5.1); Protein, Total 7.9 g/dL (6.4-8.2); Sodium Level 139 mmol/L (136-145); Troponin (Emerg Dept Use Only) < 0.02 ng/mL (0.0-0.045)
[2018-10-13] MEDS ORDERED: ONDANSETRON 4 MG/2 ML VIAL ONE (20:16)
[2018-10-13] MEDS ORDERED: FENTANYL CITR 100 MCG/2 ML ONE (20:16)
[2018-10-13] MEDS ORDERED: NA CHLORIDE 0.9% 1,000 ML ONE (20:16)
[2018-10-13] MEDS ORDERED: MORPHINE 2 MG/ML SYR ONE (20:52)
--- NOTE | 2018-10-14 00:03 | ER ---
Nurse's Notes [facility] Name: Robyn Carrion Age: 58 yrs Sex: Female : 1960 Arrival Date: 10/13/2018 Time: 18:16 Bed 13 Private MD: Berry Suero F Diagnosis: acute left lower quadrant abdominal pain;acute colitis;acute diverticulitis;hematochezia Presentation: 10/13 18:25 Presenting complaint: Patient states: I think I am having a flare up of my la1 diverticulitis. I am also having bright red blood in my stool for the last 2 weeks. Transition of care: patient was not received from another setting of care. Onset of symptoms was October 13, 2018. Risk Assessment: Do you want to hurt yourself or someone else? Patient reports no desire to harm self or others. Initial Sepsis Screen: Does the patient meet any 2 criteria? No. Patient's initial sepsis screen is negative. Does the patient have a suspected source of infection? No. Patient's initial sepsis screen is negative. Care prior to arrival: None. 18:25 Method Of Arrival: Ambulatory la1 18:25 Acuity: DARA 3 la1 Historical: - Allergies: 18:25 HYDROCODONE; la1 - PMHx: 18:25 Diabetes - IDDM; GERD; High Cholesterol; Hypertension; Pancreatitis; TIA; la1 - PSHx: 18:25 Cholecystectomy; Hysterectomy; Hernia repair; la1 - Immunization history:: Adult Immunizations up to date. - Social history:: Smoking status: Patient/guardian denies using tobacco. - Ebola Screening: : No symptoms or risks identified at this time. - Family history:: not pertinent. - Hospitalizations: : No recent hospitalization is reported. Screenin:13 Abuse screen: Denies threats or abuse. Nutritional screening: No deficits noted. jb4 Tuberculosis screening: No symptoms or risk factors identified. Fall Risk None identified. Assessment: 19:11 General: Appears in no apparent distress. uncomfortable, Behavior is calm, cooperative, jb4 appropriate for age. Pain: Complains of pain in posterior aspect of left lateral abdomen and anterior aspect of left lateral abdomen Pain does not radiate. Pain currently is 8 out of 10 on a pain scale. Quality of pain is described as aching, Pain began 2 weeks ago. Neuro: Level of Consciousness is awake, alert, obeys commands, Oriented to person, place, time, situation. Cardiovascular: Patient's skin is warm and dry. Respiratory: Airway is patent Respiratory effort is even, unlabored, Respiratory pattern is regular, symmetrical. GI: Abdomen is round distended, Bowel sounds present X 4 quads. Abd is soft X 4 quads Abd is non tender in right upper quadrant, right lower quadrant and left lower quadrant Abdomen is tender to palpation in left upper quadrant Reports bloating, diarrhea, bloody stool. : No signs and/or symptoms were reported regarding the genitourinary system. EENT: No signs and/or symptoms were reported regarding the EENT system. Derm: Skin is intact, Skin is pink, warm \\T\\ dry. Musculoskeletal: Circulation, motion, and sensation intact. 20:14 Reassessment: Patient appears in no apparent distress at this time. Patient and/or jb4 family updated on plan of care and expected duration. Pain level reassessed. Patient is alert, oriented x 3, equal unlabored respirations, skin warm/dry/pink. Patient states feeling better. 21:35 Reassessment: Patient appears in no apparent distress at this time. Patient and/or jb4 family updated on plan of care and expected duration. Pain level reassessed. Patient is alert, oriented x 3, equal unlabored respirations, skin warm/dry/pink. Patient states feeling better. 22:48 Reassessment: Patient appears in no apparent distress at this time. Patient and/or jb4 family updated on plan of care and expected duration. Pain level reassessed. Patient is alert, oriented x 3, equal unlabored respirations, skin warm/dry/pink. Pt reports a slight increase in pain, states " It is bearable and I do not want any medication right now.". 10/14 00:00 Reassessment: Patient appears in no apparent distress at this time. Patient and/or jb4 family updated on plan of care and expected duration. Pain level reassessed. Patient is alert, oriented x 3, equal unlabored respirations, skin warm/dry/pink. Patient states feeling better. 01:00 Reassessment: Patient appears in no apparent distress at this time. Patient and/or jb4 family updated on plan of care and expected duration. Pain level reassessed. Patient is alert, oriented x 3, equal unlabored respirations, skin warm/dry/pink. Pt reports an increase in pain but wants to wait until she is transferred to her new room to get medicated for it. Vital Signs: 10/13 18:26 BP 170 / 85; Pulse 74; Resp 16; Temp 98.6; Pulse Ox 98% on R/A; Weight 70.76 kg; Height la1 5 ft. 2 in. (157.48 cm); Pain 8/10; 20:08 BP 148 / 75; Pulse 63; Resp 16; Pulse Ox 97% on R/A; jb4 21:30 BP 125 / 70; Pulse 68; Resp 16; Pulse Ox 99% on R/A; Pain 2/10; jb4 22:48 BP 150 / 73; Pulse 55; Resp 16; Pulse Ox 100% on R/A; jb4 10/14 00:00 BP 157 / 85; Pulse 56; Resp 16; Pulse Ox 99% on R/A; jb4 01:00 BP 155 / 72; Pulse 58; Resp 17; Temp 98.5(O); Pulse Ox 100% on R/A; jb4 10/13 18:26 Body Mass Index 28.53 (70.76 kg, 157.48 cm) la1 ED Course: 10/13 18:16 Patient arrived in ED. mr 18:17 Berry Suero MD is Private Physician. mr 18:26 Triage completed. la1 18:27 Arm band placed on left wrist. la1 19:02 Tarun Bruno, RN is Primary Nurse. jb4 19:05 Hipolito Obregon MD is Attending Physician. wa 19:13 Patient has correct armband on for positive identification. Bed in low position. Call jb4 light in reach. Side rails up X 1. Pulse ox on. NIBP on. 19:32 Radiology exam delayed due to lab results not completed at this time. (BUN/Creatinine). vm2 19:38 Chest Single View In Process Unspecified. EDMS 22:32 CT Abd/Pelvis - IV Contrast Only In Process Unspecified. EDMS 10/14 00:01 Berry Suero MD is Hospitalizing Provider. wa 01:30 No provider procedures requiring assistance completed. Patient admitted, IV remains in jb4 place. Administered Medications: 10/13 20:03 Drug: Zofran 4 mg Route: IVP; Site: right forearm; jb4 20:30 Follow up: Response: No adverse reaction; Nausea is decreased jb4 20:05 Drug: NS 0.9% 1000 ml Route: IV; Rate: 1 bolus; Site: right forearm; jb4 21:00 Follow up: Response: No adverse reaction; IV Status: Completed infusion; IV Intake: jb4 1000ml 20:06 Drug: fentaNYL (PF) 50 mcg Route: IVP; Site: right forearm; jb4 20:30 Follow up: Response: No adverse reaction; Pain is decreased jb4 10/14 00:16 Drug: Zosyn 4.5 grams Route: IVPB; Infused Over: 60 mins; Site: right forearm; jb4 01:16 Follow up: Response: No adverse reaction; IV Status: Completed infusion; IV Intake: jb4 100ml Intake: 10/13 21:00 IV: 1000ml; Total: 1000ml. jb4 10/14 01:16 IV: 100ml; Total: 1100ml. jb4 Outcome: 00:03 Decision to Hospitalize by Provider. co 01:30 Admitted to Tele accompanied by nurse, via wheelchair, room 402, with chart, Report jb4 called to HAIDER Gandhi 01:30 Condition: stable 01:30 Discharge instructions given to patient, Instructed on the need for admit, Demonstrated understanding of instructions. 02:18 Patient left the ED. jb4 Signatures: Dispatcher [employer] KYLIE JovanDelisa LiliamJose F RN RN la1 Tarun Bruno RN RN jb4 Shakira Burciaga [facility] Hipolito Obregon MD MD co
--- NOTE | 2018-10-14 00:04 | EDPHYS ---
Physician Documentation [facility] Name: Robyn Carrion Age: 58 yrs Sex: Female : 1960 Arrival Date: 10/13/2018 Time: 18:16 Bed 13 Private MD: Beryr Suero F ED Physician Hipolito Obregon HPI: 10/13 19:34 This 58 yrs old Female presents to ER via Ambulatory with complaints of wa Abdominal Pain. 19:34 The patient presents with abdominal pain in the left lower quadrant, L flank pain. wa Onset: The symptoms/episode began/occurred 2 week(s) ago. The symptoms radiate to the left flank. Associated signs and symptoms: Pertinent positives: nausea and vomiting, diarrhea, shortness of breath, bloody stools. The symptoms are described as sharp. Modifying factors: The symptoms are alleviated by nothing, the symptoms are aggravated by nothing. Severity of pain: At its worst the pain was moderate in the emergency department the pain is actually worse moderately. The patient has experienced similar episodes in the past, several times, today's symptoms are similar, to previous diagnosis with diverticulitis. The patient has not recently seen a physician. h/o diverticulitis. states 2 weeks of L sided abd pain with bloody stools. also admits to vomiting and SOB. denies CP. vomitus non-bloody. states called Dr. Capellan, her GI doc and advised to take dicyclomine but not helping. . Historical: - Allergies: 18:25 HYDROCODONE; la1 - PMHx: 18:25 Diabetes - IDDM; GERD; High Cholesterol; Hypertension; Pancreatitis; TIA; la1 - PSHx: 18:25 Cholecystectomy; Hysterectomy; Hernia repair; la1 - Immunization history:: Adult Immunizations up to date. - Social history:: Smoking status: Patient/guardian denies using tobacco. - Ebola Screening: : No symptoms or risks identified at this time. - Family history:: not pertinent. - Hospitalizations: : No recent hospitalization is reported. ROS: 19:38 Constitutional: Negative for fever, chills, and weight loss, Eyes: Negative for injury, wa pain, redness, and discharge, ENT: Negative for injury, pain, and discharge, Neck: Negative for injury, pain, and swelling, Cardiovascular: Negative for chest pain, palpitations, and edema, Back: Negative for injury and pain, : Negative for injury, bleeding, discharge, and swelling, MS/Extremity: Negative for injury and deformity, Skin: Negative for injury, rash, and discoloration, Neuro: Negative for headache, weakness, numbness, tingling, and seizure, Psych: Negative for depression, anxiety, suicide ideation, homicidal ideation, and hallucinations. 19:38 Respiratory: Positive for shortness of breath, on exertion. Negative for cough, wheezing. 19:38 Abdomen/GI: Positive for abdominal pain, nausea, vomiting, diarrhea. 19:38 All other systems are negative. Exam: 19:38 Constitutional: This is a well developed, well nourished patient who is awake, alert, wa and in no acute distress. Head/Face: Normocephalic, atraumatic. Eyes: Pupils equal round and reactive to light, extra-ocular motions intact. Lids and lashes normal. Conjunctiva and sclera are non-icteric and not injected. Cornea within normal limits. Periorbital areas with no swelling, redness, or edema. ENT: Nares patent. No nasal discharge, no septal abnormalities noted. Tympanic membranes are normal and external auditory canals are clear. Oropharynx with no redness, swelling, or masses, exudates, or evidence of obstruction, uvula midline. Mucous membranes moist. Neck: Trachea midline, no thyromegaly or masses palpated, and no cervical lymphadenopathy. Supple, full range of motion without nuchal rigidity, or vertebral point tenderness. No Meningismus. Chest/axilla: Normal chest wall appearance and motion. Nontender with no deformity. No lesions are appreciated. Cardiovascular: Regular rate and rhythm with a normal S1 and S2. No gallops, murmurs, or rubs. Normal PMI, no JVD. No pulse deficits. Respiratory: Lungs have equal breath sounds bilaterally, clear to auscultation and percussion. No rales, rhonchi or wheezes noted. No increased work of breathing, no retractions or nasal flaring. Back: No spinal tenderness. No costovertebral tenderness. Full range of motion. Skin: Warm, dry with normal turgor. Normal color with no rashes, no lesions, and no evidence of cellulitis. MS/ Extremity: Pulses equal, no cyanosis. Neurovascular intact. Full, normal range of motion. Neuro: Awake and alert, GCS 15, oriented to person, place, time, and situation. Cranial nerves II-XII grossly intact. Motor strength 5/5 in all extremities. Sensory grossly intact. Cerebellar exam normal. Normal gait. Psych: Awake, alert, with orientation to person, place and time. Behavior, mood, and affect are within normal limits. 19:38 Abdomen/GI: Inspection: obese Bowel sounds: hyperactive, in all quadrants, Palpation: moderate abdominal tenderness, in the left upper quadrant and left lower quadrant. 19:50 Abdomen/GI: Rectal exam: rectal tone normal, Stool: brown, guaiac negative. wi Vital Signs: 18:26 BP 170 / 85; Pulse 74; Resp 16; Temp 98.6; Pulse Ox 98% on R/A; Weight 70.76 kg; Height la1 5 ft. 2 in. (157.48 cm); Pain 8/10; 20:08 BP 148 / 75; Pulse 63; Resp 16; Pulse Ox 97% on R/A; jb4 21:30 BP 125 / 70; Pulse 68; Resp 16; Pulse Ox 99% on R/A; Pain 2/10; jb4 22:48 BP 150 / 73; Pulse 55; Resp 16; Pulse Ox 100% on R/A; jb4 10/14 00:00 BP 157 / 85; Pulse 56; Resp 16; Pulse Ox 99% on R/A; jb4 01:00 BP 155 / 72; Pulse 58; Resp 17; Temp 98.5(O); Pulse Ox 100% on R/A; jb4 10/13 18:26 Body Mass Index 28.53 (70.76 kg, 157.48 cm) la1 MDM: 10/13 19:05 Patient medically screened. wa 19:39 Differential diagnosis: diverticulitis, gastritis, GI Bleed, non-specific abd pain, wa Peritonitis, colitis. 20:01 Data reviewed: vital signs, nurses notes, lab test result(s), EKG, radiologic studies. wa Test interpretation: by ED physician or midlevel provider: EKG: interp by de: HR 61. sinus. nml axis. nml intervals. no acute findings consistent with zonal ischemia. non-specific ST-T changes. 20:15 Test interpretation: by ED physician or midlevel provider: CXR noted negative for acute wa process per rad. labs notable for hyperglycemia at 213. elevated alk phos of 154. elevated BUN of 24. . 10/14 00:00 Test interpretation: by ED physician or midlevel provider: CT abd/pelvis consistent wa with colitis vs diverticulitis. ED course: abx given. will admit for further eval. . 10/13 19:18 Order name: Basic Metabolic Panel wi 10/13 19:18 Order name: CBC with Diff; Complete Time: 20:14 wi 10/13 19:18 Order name: Creatinine for Radiology; Complete Time: 20:14 wi 10/13 19:18 Order name: Hepatic Function; Complete Time: 20:14 wi 10/13 19:18 Order name: Lipase; Complete Time: 20:14 wi 10/13 19:19 Order name: Magnesium; Complete Time: 20:14 wi 10/13 19:19 Order name: NT PRO-BNP; Complete Time: 20:14 wi 10/13 19:19 Order name: PT-INR; Complete Time: 20:14 wi 10/13 19:19 Order name: Troponin (emerg Dept Use Only); Complete Time: 20:15 wi 10/13 19:19 Order name: Basic Metabolic Panel; Complete Time: 20:14 EDND 10/13 19:18 Order name: IV Saline Lock; Complete Time: 19:58 wi 10/13 19:18 Order name: Labs collected and sent; Complete Time: 19:59 wi 10/13 19:19 Order name: XRAY Chest (1 view) wi 10/13 19:19 Order name: EKG; Complete Time: 19:21 wi 10/13 19:19 Order name: Cardiac monitoring; Complete Time: 19:58 wi 10/13 19:19 Order name: EKG - Nurse/Tech; Complete Time: 19:58 wi 10/13 19:19 Order name: CT Abd/Pelvis - IV Contrast Only wi 10/13 19:21 Order name: Chest Single View; Complete Time: 20:14 EDND 10/13 19:21 Order name: EKG Electrocardiogram; Complete Time: 21:50 EDND 10/13 22:07 Order name: CT Abd/Pelvis - IV Contrast Only 10/14 00:31 Order name: NPO EDND 10/13 19:19 Order name: O2 Per Protocol; Complete Time: 19:58 wi 10/13 19:19 Order name: O2 Sat Monitoring; Complete Time: 19:58 Administered Medications: 10/13 20:03 Drug: Zofran 4 mg Route: IVP; Site: right forearm; jb4 20:30 Follow up: Response: No adverse reaction; Nausea is decreased 4 20:05 Drug: NS 0.9% 1000 ml Route: IV; Rate: 1 bolus; Site: right forearm; jb4 21:00 Follow up: Response: No adverse reaction; IV Status: Completed infusion; IV Intake: jb4 1000ml 20:06 Drug: fentaNYL (PF) 50 mcg Route: IVP; Site: right forearm; jb4 20:30 Follow up: Response: No adverse reaction; Pain is decreased [facility] 10/14 00:16 Drug: Zosyn 4.5 grams Route: IVPB; Infused Over: 60 mins; Site: right forearm; jb4 01:16 Follow up: Response: No adverse reaction; IV Status: Completed infusion; IV Intake: jb4 100ml Disposition: 10/14/18 00:03 Hospitalization ordered by Berry Suero for Inpatient Admission. Preliminary diagnosis are acute left lower quadrant abdominal pain, acute colitis, acute diverticulitis, hematochezia. - Bed requested for Telemetry/MedSurg (Inpatient). - Status is Inpatient Admission. jb4 - Condition is Stable. - Problem is new. - Symptoms have improved. UTI on Admission? No Signatures: Dispatcher [employer] EDND Citlaly Triplett RN RN Jose F Ricketts RN RN la1 Tarun Bruno RN RN jb4 Hipolito Obregon MD MD wi Corrections: (The following items were deleted from the chart) 10/13 19:22 19:21 Protime (+INR) ordered. EDND EDMS 19:27 19:21 Magnesium ordered. EDND EDMS 19:27 19:21 NT PRO-BNP ordered. EDND EDND 19:27 19:21 Troponin (Emerg Dept Use Only) ordered. EDND EDMS 20:15 19:22 Abdomen ordered. EDND EDMS 10/14 00:47 00:03 Hospitalization Ordered by Berry Suero MD for Inpatient Admission. Preliminary diagnosis is acute left lower quadrant abdominal pain; acute colitis; acute diverticulitis; hematochezia. Bed requested for Telemetry/MedSurg (Inpatient). Status is Inpatient Admission. Condition is Stable. Problem is new. Symptoms have improved. UTI on Admission? No. wa 02:18 00:47 10/14/2018 00:03 Hospitalization Ordered by Berry Suero MD for Inpatient jb4 Admission. Preliminary diagnosis is acute left lower quadrant abdominal pain; acute colitis; acute diverticulitis; hematochezia. Bed requested for Telemetry/MedSurg (Inpatient). Status is Inpatient Admission. Condition is Stable. Problem is new. Symptoms have improved. UTI on Admission? No. mw
[2018-10-14] MEDS ORDERED: PIPERACIL/TAZO 4.5 GM VIAL IV ONE (00:09)
[2018-10-14] MEDS ORDERED: NA CHLORIDE 0.9% 100 ML IV ONE (00:10)
[2018-10-14] MEDS ORDERED: D5 0.45 NS 1,000 ML IV SCH (01:00)
[2018-10-14 02:00] VITALS: BMI 28.5
[2018-10-14] MEDS: MORPHINE 4 MG/ML SYR IV PRN ×4 (02:34→21:58)
[2018-10-14] MEDS: NA CHLORIDE 0.9% 1,000 ML IV SCH ×3 (02:56→18:05)
[2018-10-14] MEDS ORDERED: PIPERACIL/TAZO 3.375 GM VIAL IV ONE (05:56)
[2018-10-14] MEDS: PIPER/TAZO/NS 3.375gm 3.375 GM/100 ML BAG IVPB SCH ×3 (07:43→18:03)
[2018-10-14] MEDS ORDERED: NA CHLORIDE 0.9% 100 ML ONE (07:48)
[2018-10-14 09:16] LABS: Urine Appearance CLEAR; Urine Bilirubin NEGATIVE (NEG); Urine Blood NEGATIVE (NEG); Urine Color YELLOW; Urine Glucose NEGATIVE (NEG); Urine Protein NEGATIVE (NEG); Urine Specific Gravity 1.025 (1.005-1.030)
[2018-10-14 09:23] LABS: Urine Microscopic Reflex ORDER UMIC
[2018-10-14 09:36] LABS: Urine Bacteria NONE SEEN /HPF (<20); Urine Culture Reflex Order NOT NEEDED; Urine RBC NONE SEEN /HPF (NONE SEEN)
--- NOTE | 2018-10-14 11:41 | RAD REPORT ---
EXAM DESCRIPTION: CT - Abdomen Pelvis W Contrast - 10/13/2018 11:03 pm CLINICAL HISTORY: 58 years Female ABD PAIN COMPARISON: None TECHNIQUE: Images were obtained in axial, sagittal, and coronal planes. Arterial and venous phase im aging was performed. This exam was performed according to our departmental dose-optimization program which includes use of Automated Exposure Control, adjustment of the mA and/or kV according to patient size and/or use of i terative reconstruction technique. FINDINGS: Decreased attenuation is seen involving the liver likely fatty change. Unremarkable spleen , pancreas, and adrenal glands bilaterally. Prior cholecystectomy. Appendix within normal limits. Marked diverticulosis left colon. No bowel obstruction or perforation. Mucosal thickening left colon with predominant involvement rectosigmoid colon No obstructing renal calcifications bilaterally. No hydronephrosis bilaterally. Unremarkable bladder. Calcification abdominal aorta with no dilatation seen. No adenopathy or abnormal fluid collections no vernell. Dependent atelectatic change lower lungs bilaterally. No acute osseous abnormality. IMPRESSION: Abnormal mucosal thickening left colon with predominant involvement rectosigmoid colon. The findings would be consistent with colitis. Extensive diverticulosis left colon. Superimposed dive rticulitis difficult to exclude with this degree of diverticulosis. No perforation or abscess. Electronically signed by: Kayley Yepez MD 10/13/2018 10:53 PM CDT Due to temporary technical issues with the PACS/Fluency reporting system, reports are being signed by the in house radiologist as a courtesy to ensure prompt reporting. The interpreting radiologist is f ully responsible for the content of the report.
--- NOTE | 2018-10-14 12:53 | EKG ---
Test Date: 2018-10-13 Test Time: 19:52:48 Client Support Administrator: HERVE MEASUREMENT RESULTS: Intervals: Rate: 61 IL: 152 QRSD: 82 QT: 424 QTc: 426 [place]: P: 5 IL: 152 QRS: -6 T: 30 INTERPRETIVE STATEMENTS: Normal sinus rhythm Nonspecific T wave abnormality Abnormal ECG Compared to ECG 12/28/2017 13:12:16 T-wave abnormality now present Electronically Signed On 10-14-18 12:49:46 CDT by Tj Castro
[2018-10-14] MEDS: ONDANSETRON 4 MG/2 ML VIAL IV PRN ×3 (13:54→21:58)
[2018-10-14] MEDS ORDERED: PROMETHAZINE 25 MG/ML VIAL IV PRN (22:52)
[2018-10-14] MEDS ORDERED: D50W 25 GM/50 ML SYRINGE IV PRN (22:53)
[2018-10-14] MEDS ORDERED: GLUCAGON 1 MG/VIAL IM PRN (22:53)
[2018-10-14] MEDS: CIPROFLOXACIN 400mg IV 400 MG/200 ML BAG IV SCH (23:45)
[2018-10-15] MEDS: PIPER/TAZO/NS 3.375gm 3.375 GM/100 ML BAG IVPB SCH
[2018-10-15] MEDS: METRONIDAZOLE 500mg IVPB 500 MG/100 ML BAG IV SCH ×5 (01:10→23:57)
[2018-10-15 05:22] LABS: Absolute Lymphocytes (CBC) 1.8 K/uL (0.7-4.9); Basophils % 0.7 % (0-1.3); Eosinophils % 0.7 % (0-4.4); Hematocrit 38.2 % (36.0-45.0); MPV 7.3 fL (7.6-11.3); Monocytes % 4.4 % (3.3-12.3); RBC Red Blood Cell Count 4.27 M/uL (3.86-4.86)
[2018-10-15 05:41] LABS: ALT/SGPT 79 U/L (12-78); AST/SGOT 61 U/L (15-37); Albumin 3.1 g/dL (3.4-5.0); Alkaline Phosphatase 142 U/L (45-117); BUN Blood Urea Nitrogen 13 mg/dL (7-18); Bicarbonate 27 mmol/L (21-32); Bilirubin Direct 0.1 mg/dL (0-0.2); Bilirubin Total 0.4 mg/dL (0.2-1.0); Glucose Level 143 mg/dL (74-106); Lipase 141 U/L (73-393); Potassium 3.8 mmol/L (3.5-5.1); Protein, Total 6.7 g/dL (6.4-8.2); Sodium Level 139 mmol/L (136-145)
[2018-10-15] MEDS: INSULIN -REGULAR HUMAN 50 UNIT/0.5 ML ML SQ SCH ×4 (07:30→20:35)
[2018-10-15] MEDS: LISINOPRIL 10 MG TAB PO SCH (08:54)
[2018-10-15] MEDS: CIPROFLOXACIN 400mg IV 400 MG/200 ML BAG IV SCH ×2 (08:54→20:34)
[2018-10-15] MEDS ORDERED: PROMETHAZINE 25 MG/ML VIAL IV SCH (09:00)
[2018-10-15] MEDS: NA CHLORIDE 0.9% 1,000 ML IV SCH ×5 (10:30→20:41)
[2018-10-15] MEDS: MORPHINE 4 MG/ML SYR IV PRN ×2 (10:36→18:51)
[2018-10-15 11:02] VITALS: O2SAT 99
[2018-10-15] MEDS ORDERED: ATORVASTATIN 20 MG TAB PO SCH (21:00)
--- NOTE | 2018-10-15 22:31 | HP ---
Date of Admission: 10/14/2018 History Of Present Illness: A 58-year-old female who is in the emergency room with a complaint of le ft lower abdominal pain for few days. She had also nausea and vomiting along with a bout of soft sto ols for the past few days. She said she noted some blood in her stools also. The patient denies fev er or chills and voiced no other complaints. Review of Systems: Gastrointestinal: As above. Cardiovascular: No complaints. Respiratory: No complaints. ENT: No complaints. Skeletomuscular: No complaint. Neurological: No complaint. Past Medical History: 1.Type 2 diabetes. 2.Gastroesophageal reflux disease. 3.Hypertension. 4.Hyperlipidemia. 5.History of pancreatitis. 6.History of PI PAs. 7.The patient has had hysterectomy, cholecystectomy, and hernia repair in the past. Family History: Noncontributing. Medications: Include Lantus 40 units subcutaneous daily and atorvastatin 20 mg p.o. daily, lisinopri l 10 mg p.o. daily. Allergies: HYDROCODONE AND CODEINE. Physical Examination: Vital Signs: Blood pressure 120/65, pulse 60, temperature 98.4. Heart: Regular rate and rhythm. Chest: Clear to auscultation. Abdomen: Soft. Mild left lower quadrant tenderness. No rigidity. No rebound. Bowel sounds are ac tive. Extremities: No edema. No cyanosis. Peripheral pulses are felt. Neurological: Alert, oriented, nonfocal. Grossly intact. Diagnostic Data: Chest x-ray, no acute pathology. EKG shows normal sinus rhythm. Nonspecific T-wav e abnormality. Abdominal pelvic CT showed mucosal thickening of the left colon and rectosigmoid colo n, consistent with colitis. The patient also has had extensive diverticulosis and diverticulitis is considered also. Laboratory Data: CBC noted no increased white cell count and chemistry noted. Blood sugar fingersti cks in the 200s and 100s. BUN 13, creatinine 0.66, lipase 158. Assessment And Plan: Acute diverticulitis/colitis in the rectosigmoid area. The patient is being ad mitted. Put n.p.o. put her on Flagyl and Cipro, IV antibiotics. Rest her bowel and we will continu e her home medicines for chronic medical illnesses and we will monitor her blood sugar and put her on regular insulin sliding scale. Look orders for details. MFS/MODL Voice ID: [id number]
[2018-10-16] MEDS: METRONIDAZOLE 500mg IVPB 500 MG/100 ML BAG IV SCH ×2 (06:20→11:27)
[2018-10-16] MEDS: NA CHLORIDE 0.9% 1,000 ML IV SCH (06:20)
[2018-10-16] MEDS: INSULIN -REGULAR HUMAN 50 UNIT/0.5 ML ML SQ SCH ×2 (07:30→11:30)
[2018-10-16] MEDS: CIPROFLOXACIN 400mg IV 400 MG/200 ML BAG IV SCH (08:37)
[2018-10-16] MEDS: LISINOPRIL 10 MG TAB PO SCH (08:37)
[2018-10-16 12:34] VITALS: BP 144/69; TEMP 98.4
== END 2018-10-16 16:02 | disposition home or self-care (01) | DRG 392 ==
LOC: ER 18:13 → ERHOLD 10-14 00:34 → 4TH 10-14 01:31
PROVIDERS: ADMIT Internal Medicine; ATTEND Internal Medicine
DX: K57.32 Diverticulitis of large intestine without perforation or abscess without bleeding (principal); E11.9 Type 2 diabetes mellitus without complications; K21.9 Gastro-esophageal reflux disease without esophagitis; I10 Essential (primary) hypertension; E78.5 Hyperlipidemia, unspecified
CPT/HCPCS: 36415; 71045; 74177; 80048; 80076; 81003; 81015; 82962; 83690; 83735; 83880; 84484; 85025; 85610; 93005; 96361; 96365; 96375; 99285; J0744; J2270; J2405; J2543; J2550; J3010; J7030; Q9967

== ENCOUNTER 2018-10-30 08:29 | Emergency (ER) | payer OTHER ==
[2018-10-30] MEDS ORDERED: PROMETHAZINE 25 MG/ML VIAL ONE (09:00)
[2018-10-30] MEDS ORDERED: NA CHLORIDE 0.9% 1,000 ML ONE (09:01)
[2018-10-30] MEDS ORDERED: MORPHINE 4 MG/ML SYR ONE (09:01)
[2018-10-30 09:04] LABS: Absolute Lymphocytes (CBC) 2.3 K/uL (0.7-4.9); Basophils % 0.7 % (0-1.3); Hematocrit 42.3 % (36.0-45.0); Lymphocytes % 21.3 % (15.3-44.8); MPV 7.8 fL (7.6-11.3); RBC Red Blood Cell Count 4.66 M/uL (3.86-4.86)
[2018-10-30 09:17] LABS: Albumin 4.1 g/dL (3.4-5.0); Bilirubin Direct 0.2 mg/dL (0-0.2); Bilirubin Total 0.5 mg/dL (0.2-1.0); Potassium 3.9 mmol/L (3.5-5.1); Protein, Total 8.8 g/dL (6.4-8.2)
--- NOTE | 2018-10-30 10:09 | RAD REPORT ---
EXAM DESCRIPTION: CT - Abdomen Pelvis W Contrast - 10/30/2018 9:50 am CLINICAL HISTORY: Left-sided abdominal pain COMPARISON: CT study October 13. TECHNIQUE: Biphasic, helical CT imaging of the abdomen and pelvis was performed following 100 ml non -ionic IV contrast. No oral contrast administered. All CT scans are performed using dose optimization technique as appropriate and may include automated exposure control or mA/KV adjustment according to patient size. FINDINGS: No suspicious findings in the lung bases. Mild diffuse fatty infiltration is present in the liver. No focal liver lesion identified. No spleen or pancreas acute finding. Cholecystectomy clips are present. No abnormal biliary tree dilatation. Renal function is symmetric. Venous phase imaging is slightly heterogeneous in each kidney but not li emilia pyelonephritis. There is no perinephric stranding. Contracted urinary bladder shows no suspiciou s finding. Uterus is absent. Ovaries are absent or atrophic. No adrenal abnormalities. Minimal hiatal hernia is present. No gastric wall mass is identified. Miller of the antrum are minimal ly prominent. There is no stranding in the adjacent fatty tissue. Fluid is retained within the duoden al bulb. There is questionable narrowing in the post bulbar duodenum. The duodenal bulb was prominent retaining fluid. More distal duodenum is normal in diameter. A less prominent but similar appearance noted October 13. A few mildly prominent proximal small bowel loops are present. No colon dilatation. No appendicitis f indings. There is moderately prominent diverticulosis in the sigmoid and descending portions of the c olon. No acute diverticulitis findings. No free air, free fluid or inflammatory stranding. No hernia, mass or bulky lymphadenopathy. No suspicious bony findings. IMPRESSION: Enlarged duodenal bulb with questionable post bulbar stricture or mass. The enlarged du odenal bulb contains fluid with the distal duodenum normal in diameter. Miller of the gastric antrum are minimally prominent and a mild antritis is possible. No acute small bowel finding or large bowel finding. There is prominent diverticulosis in the left si de of the colon without diverticulitis. Fatty infiltration of the liver.
--- NOTE | 2018-10-30 10:23 | EDPHYS ---
Physician Documentation [facility] Name: Robyn Carrion Age: 58 yrs Sex: Female : 1960 Arrival Date: 10/30/2018 Time: 08:31 Bed 20 Private MD: Berry Suero F ED Physician Antony Ely HPI: 10/30 08:58 This 58 yrs old Female presents to ER via Ambulatory with complaints of kb Abdominal Pain. 08:58 The patient presents with abdominal pain in the right upper quadrant, in the left upper kb quadrant, in the left lower quadrant. Onset: The symptoms/episode began/occurred 3.5 week(s) ago. The symptoms do not radiate. Associated signs and symptoms: none. The symptoms are described as constant. Modifying factors: The symptoms are alleviated by nothing, the symptoms are aggravated by nothing. Severity of pain: At its worst the pain was moderate in the emergency department the pain is unchanged. The patient has not experienced similar symptoms in the past. The patient has been recently seen by a physician:. Pt reports abd pain that started at the end of September. States she was seen here and admitted for 4 days on antibiotics, then discharged with a week of antibiotics. Followed up with DR Suero and was told to see Dr Capellan. Followed up with him and had an upper GI scope scheduled for this morning. States they started her IV for the procedure, but then said her abd pain needed to be evaluated before they did the test so they sent her here. . Historical: - Allergies: 09:07 HYDROCODONE; tw2 09:07 Codeine; tw2 - Home Meds: :07 atorvastatin Oral once daily [Active]; Zofran (as hydrochloride) 4 mg Oral tab 2 tabs 3 tw2 times per day [Active]; Creon 36,000-114,000- 180,000 unit Oral cpDR 2 caps tid with meal and 1 at bedtime [Active]; Dexilant 60 mg Oral CpDB 1 cap once daily [Active]; Amitiza Oral [Active]; Lantus Sub-Q 47 unit daily [Active]; Dicyclomine Oral [Active]; - PMHx: 09:07 Diabetes - IDDM; GERD; High Cholesterol; Hypertension; Pancreatitis; TIA; tw2 - PSHx: 09:07 Cholecystectomy; Hysterectomy; Hernia repair; tw2 - Immunization history:: Adult Immunizations. - Social history:: Smoking status: . - Ebola Screening: : Patient denies travel to an Ebola-affected area in the 21 days before illness onset. ROS: 08:58 Constitutional: Negative for fever, chills, and weight loss, ENT: Negative for injury, kb pain, and discharge, Neck: Negative for injury, pain, and swelling, Cardiovascular: Negative for chest pain, palpitations, and edema, Respiratory: Negative for shortness of breath, cough, wheezing, and pleuritic chest pain, Back: Negative for injury and pain, : Negative for injury, bleeding, discharge, and swelling, MS/Extremity: Negative for injury and deformity, Skin: Negative for injury, rash, and discoloration, Neuro: Negative for headache, weakness, numbness, tingling, and seizure. 08:58 Abdomen/GI: Positive for abdominal pain, Negative for nausea, vomiting, and diarrhea, constipation, abdominal cramps, abdominal distension, anorexia. Exam: 08:58 Constitutional: This is a well developed, well nourished patient who is awake, alert, kb and in no acute distress. Head/Face: Normocephalic, atraumatic. Chest/axilla: Normal chest wall appearance and motion. Nontender with no deformity. No lesions are appreciated. Cardiovascular: Regular rate and rhythm with a normal S1 and S2. No gallops, murmurs, or rubs. Normal PMI, no JVD. No pulse deficits. Respiratory: Lungs have equal breath sounds bilaterally, clear to auscultation and percussion. No rales, rhonchi or wheezes noted. No increased work of breathing, no retractions or nasal flaring. Back: No spinal tenderness. No costovertebral tenderness. Full range of motion. Skin: Warm, dry with normal turgor. Normal color with no rashes, no lesions, and no evidence of cellulitis. MS/ Extremity: Pulses equal, no cyanosis. Neurovascular intact. Full, normal range of motion. Neuro: Awake and alert, GCS 15, oriented to person, place, time, and situation. Cranial nerves II-XII grossly intact. Motor strength 5/5 in all extremities. Sensory grossly intact. Cerebellar exam normal. Normal gait. 08:58 Abdomen/GI: Inspection: abdomen appears normal, Bowel sounds: normal, in all quadrants, Palpation: soft, in all quadrants, nontender, in the right lower quadrant, mild abdominal tenderness, in the left lower quadrant, moderate abdominal tenderness, in the right upper quadrant and left upper quadrant. Vital Signs: 08:42 BP 207 / 97; Pulse 78; Resp 18; Temp 97.9(O); Pulse Ox 98% on R/A; Weight 61.23 kg; tw2 Height 5 ft. 2 in. (157.48 cm); Pain 10/10; 09:57 BP 165 / 74; Pulse 52; Resp 17; Pulse Ox 98% on R/A; Pain 7/10; tw2 10:44 BP 173 / 73; Pulse 68; Resp 17; Pulse Ox 99% on R/A; tw2 08:42 Body Mass Index 24.69 (61.23 kg, 157.48 cm) tw2 MDM: 08:33 Patient medically screened. rn 08:58 Data reviewed: vital signs, nurses notes. Data interpreted: Pulse oximetry: on room air kb is 98 %. Interpretation: normal. 10:22 Counseling: I had a detailed discussion with the patient and/or guardian regarding: the kb historical points, exam findings, and any diagnostic results supporting the discharge/admit diagnosis, lab results, radiology results, the need for outpatient follow up, a environmental aide, to return to the emergency department if symptoms worsen or persist or if there are any questions or concerns that arise at home. 10:30 Physician consultation: Brett Capellan MD was contacted at 10:30, regarding patient's kb condition, and will see patient in office, would like medications started, cipro and flagyl. 10/30 08:38 Order name: Hepatic Function; Complete Time: 09: kb 10/30 08:38 Order name: Basic Metabolic Panel; Complete Time: 09: kb 10/30 08:38 Order name: CBC with Diff; Complete Time: 09:22 kb 10/30 08:38 Order name: Lipase; Complete Time: 09: kb 10/30 08:38 Order name: CT Abd/Pelvis - IV Contrast Only; Complete Time: 10:13 kb 10/30 08:38 Order name: IV Saline Lock; Complete Time: 08:41 kb 10/30 08:38 Order name: Labs collected and sent; Complete Time: 09:00 kb Administered Medications: 08:55 Drug: Phenergan 12.5 mg Route: IVP; Site: right forearm; tw2 09:56 Follow up: Response: No adverse reaction; Nausea is decreased tw2 08:57 Drug: morphine 4 mg Route: IVP; Site: right forearm; tw2 09:56 Follow up: Response: No adverse reaction; Pain is decreased tw2 08:58 Drug: NS 0.9% 1000 ml Route: IV; Rate: 1000 ml; Site: right forearm; tw2 10:31 Follow up: Response: No adverse reaction; IV Status: Completed infusion; IV Intake: tw2 1000ml 10:32 Drug: Cipro 500 mg Route: PO; tw2 10:43 Follow up: Response: No adverse reaction tw2 10:32 Drug: Flagyl 500 mg Route: PO; tw2 10:43 Follow up: Response: No adverse reaction tw2 Disposition: 12:57 Co-signature as Attending Physician, Antony Ely MD. rn Disposition: 10/30/18 10:23 Discharged to Home. Impression: Lower abdominal pain, unspecified, Upper abdominal pain, unspecified. - Condition is Stable. - Discharge Instructions: Abdominal Pain, Adult, [id number]. - Prescriptions for Zofran 4 mg Oral Tablet - take 1 tablet by ORAL route every 6 hours As needed; 20 tablet. Tramadol 50 mg Oral Tablet - take 1 tablet by ORAL route every 8 hours as needed; 12 tablet. Cipro 500 mg Oral Tablet - take 1 tablet by ORAL route every 12 hours for 10 days; 20 tablet. Flagyl 500 mg Oral Tablet - take 1 tablet by ORAL route every 8 hours for 10 days; 30 tablet. - Medication Reconciliation Form, Thank You Letter, Antibiotic Education, Prescription Opioid Use form. - Follow up: Emergency Department; When: As needed; Reason: Worsening of condition. Follow up: Brett Capellan MD; When: 1 - 2 days; Reason: Recheck today's complaints, Continuance of care, Re-evaluation by your physician. Signatures: Dispatcher [employer] Tracy Ortega, OSBALDO GAMBOA-Antony Andrade MD MD rn Wise, Tara, RN RN tw2 Corrections: (The following items were deleted from the chart) 10:45 10:23 10/30/2018 10:23 Discharged to Home. Impression: Lower abdominal pain, tw2 unspecified; Upper abdominal pain, unspecified. Condition is Stable. Forms are Medication Reconciliation Form, Thank You Letter, Antibiotic Education, Prescription Opioid Use. Follow up: Emergency Department; When: As needed; Reason: Worsening of condition. Follow up: Brett Capellan; When: 1 - 2 days; Reason: Recheck today's complaints, Continuance of care, Re-evaluation by your physician. kb
--- NOTE | 2018-10-30 10:23 | ER ---
Nurse's Notes [facility] Name: Robyn Carrion Age: 58 yrs Sex: Female : 1960 Arrival Date: 10/30/2018 Time: 08:31 Bed 20 Private MD: Berry Suero F Diagnosis: Lower abdominal pain, unspecified;Upper abdominal pain, unspecified Presentation: 10/30 08:40 Presenting complaint: Patient states: i was at dr. macias/malcolm's office about to have tw2 an upper gi scope done, but they stopped the procedure and told me this stomach pain was more important and to come here, they had even started an iv and left that in place because i am a hard stick, my stomach pain is more left side and i am nauseous. Transition of care: patient was not received from another setting of care. Onset of symptoms was October 30, 2018. Risk Assessment: Do you want to hurt yourself or someone else? Patient reports no desire to harm self or others. Initial Sepsis Screen: Does the patient meet any 2 criteria? No. Patient's initial sepsis screen is negative. Does the patient have a suspected source of infection? No. Patient's initial sepsis screen is negative. Care prior to arrival: IV initiated. in the right wrist, 24 g. 08:40 Method Of Arrival: Ambulatory tw2 08:40 Acuity: DARA 3 tw2 Triage Assessment: 08:41 General: Appears uncomfortable, Behavior is calm, cooperative, appropriate for age. tw2 Pain: Complains of pain in abdomen. GI: Reports lower abdominal pain, upper abdominal pain, nausea. Historical: - Allergies: 09:07 HYDROCODONE; tw2 09:07 Codeine; tw2 - Home Meds: 09:07 atorvastatin Oral once daily [Active]; Zofran (as hydrochloride) 4 mg Oral tab 2 tabs 3 tw2 times per day [Active]; Creon 36,000-114,000- 180,000 unit Oral cpDR 2 caps tid with meal and 1 at bedtime [Active]; Dexilant 60 mg Oral CpDB 1 cap once daily [Active]; Amitiza Oral [Active]; Lantus Sub-Q 47 unit daily [Active]; Dicyclomine Oral [Active]; - PMHx: 09:07 Diabetes - IDDM; GERD; High Cholesterol; Hypertension; Pancreatitis; TIA; tw2 - PSHx: 09:07 Cholecystectomy; Hysterectomy; Hernia repair; tw2 - Immunization history:: Adult Immunizations. - Social history:: Smoking status: . - Ebola Screening: : Patient denies travel to an Ebola-affected area in the 21 days before illness onset. Screenin:00 Abuse screen: Denies threats or abuse. Nutritional screening: No deficits noted. tw2 Tuberculosis screening: No symptoms or risk factors identified. Fall Risk None identified. Assessment: 09:02 General: Appears uncomfortable, Behavior is calm, cooperative, appropriate for age. tw2 Pain: Complains of pain in abdomen. Neuro: Level of Consciousness is awake, alert, obeys commands, Oriented to person, place, time, situation. Cardiovascular: Heart tones S1 S2 Patient's skin is warm and dry. Respiratory: Airway is patent Respiratory effort is even, unlabored, Respiratory pattern is regular, symmetrical, Breath sounds are clear bilaterally. GI: Abdomen is round non-distended, Bowel sounds present X 4 quads. Abdomen is tender to palpation X 4 quads. Reports lower abdominal pain, upper abdominal pain, bloating, nausea. : No signs and/or symptoms were reported regarding the genitourinary system. EENT: No signs and/or symptoms were reported regarding the EENT system. Derm: No signs and/or symptoms reported regarding the dermatologic system. Musculoskeletal: Range of motion: intact in all extremities. 09:57 Reassessment: Patient appears in no apparent distress at this time. Patient and/or tw2 family updated on plan of care and expected duration. Pain level reassessed. Patient is alert, oriented x 3, equal unlabored respirations, skin warm/dry/pink. Patient states feeling better. 10:44 Reassessment: Patient appears in no apparent distress at this time. Patient and/or tw2 family updated on plan of care and expected duration. Pain level reassessed. Patient is alert, oriented x 3, equal unlabored respirations, skin warm/dry/pink. Vital Signs: 08:42 BP 207 / 97; Pulse 78; Resp 18; Temp 97.9(O); Pulse Ox 98% on R/A; Weight 61.23 kg; tw2 Height 5 ft. 2 in. (157.48 cm); Pain 10/10; 09:57 BP 165 / 74; Pulse 52; Resp 17; Pulse Ox 98% on R/A; Pain 7/10; tw2 10:44 BP 173 / 73; Pulse 68; Resp 17; Pulse Ox 99% on R/A; tw2 08:42 Body Mass Index 24.69 (61.23 kg, 157.48 cm) tw2 ED Course: 08:31 Patient arrived in ED. dl4 08:31 Berry Suero MD is Private Physician. dl4 08:33 Antony Ely MD is Attending Physician. rn 08:35 Bed in low position. Call light in reach. Adult w/ patient. Pulse ox on. NIBP on. tw2 08:38 Tracy Carr[facility] FNP-C [facility]. kb 08:39 Lainey Metzger RN is Primary Nurse. tw2 08:41 Triage completed. tw2 08:41 Arm band placed on. tw2 08:55 Inserted saline lock: 22 gauge in right forearm, using aseptic technique. Blood tw2 collected. Missed attempt(s): 22 gauge in right forearm. Bleeding controlled, band aid applied, catheter tip intact. IV discontinued, intact, bleeding controlled, No redness/swelling at site. Pressure dressing applied, 24 g to right wrist that pt arrived with, no end cap accessibility. 09:52 CT Abd/Pelvis - IV Contrast Only In Process Unspecified. EDMS 10:23 Brett Capellan MD is Referral Physician. kb 10:44 No provider procedures requiring assistance completed. IV discontinued, intact, tw2 bleeding controlled, No redness/swelling at site. Pressure dressing applied, 22 right fa. Administered Medications: 08:55 Drug: Phenergan 12.5 mg Route: IVP; Site: right forearm; tw2 09:56 Follow up: Response: No adverse reaction; Nausea is decreased tw2 08:57 Drug: morphine 4 mg Route: IVP; Site: right forearm; tw2 09:56 Follow up: Response: No adverse reaction; Pain is decreased tw2 08:58 Drug: NS 0.9% 1000 ml Route: IV; Rate: 1000 ml; Site: right forearm; tw2 10:31 Follow up: Response: No adverse reaction; IV Status: Completed infusion; IV Intake: tw2 1000ml 10:32 Drug: Cipro 500 mg Route: PO; tw2 10:43 Follow up: Response: No adverse reaction tw2 10:32 Drug: Flagyl 500 mg Route: PO; tw2 10:43 Follow up: Response: No adverse reaction tw2 Intake: 10:31 IV: 1000ml; Total: 1000ml. tw2 Outcome: 10:23 Discharge ordered by . kb 10:44 Discharged to home via wheelchair, with significant other. tw2 10:44 Condition: stable 10:44 Discharge instructions given to patient, significant other, Instructed on discharge instructions, follow up and referral plans. medication usage, Demonstrated understanding of instructions, follow-up care, medications, Prescriptions given X 2. 10:45 Patient left the ED. tw2 Signatures: Dispatcher [employer] EDMS Tracy Carrion, LIFE SCIENTIST-C LIFE SCIENTIST-Ckb Antony Ely MD MD rn Wise, Tara, RN RN tw2 Chavo Zelaya dl4 Corrections: (The following items were deleted from the chart) 09:00 08:40 Care prior to arrival: IV initiated. 20 GA, in the right wrist, tw2 tw2
[2018-10-30] MEDS ORDERED: metroNIDAZOLE 500 MG TABLET ONE (10:50)
[2018-10-30] MEDS ORDERED: CIPROFLOXACIN HCL 500 MG TAB ONE (10:50)
[2018-10-30 11:22] VITALS: TEMP 97.9
[2018-10-30 11:25] VITALS: BP 173/73; O2SAT 99
== END 2018-10-30 10:45 | disposition home or self-care (01) ==
LOC: ER 08:29
DX: R10.10 Upper abdominal pain, unspecified (principal); I10 Essential (primary) hypertension; E11.9 Type 2 diabetes mellitus without complications; E78.00 Pure hypercholesterolemia, unspecified; Z79.4 Long term (current) use of insulin; Z88.5 Allergy status to narcotic agent
CPT/HCPCS: 85025; 80048; 36415; 80076; 83690; 74177; Q9967; J2550; J7030; 96361; 96374; 96375; 99284

== ENCOUNTER 2019-05-21 18:02 | Emergency (ER) | payer OTHER ==
--- OUTSIDE RECORDS SUMMARY | 2019-05-21 18:04 | XMS REPORT ---
:1960 [facility] Address [address] [place] [address] Care Team Providers Name Role Phone Unavailable Unavailable Unavailable Payers Payer Name Policy Type Policy Number Effective Date Expiration Date Problems This patient has no known problems. Allergies, Adverse Reactions, Alerts Allergy Name Allergy Status Severity Reaction(s) Onset Inactive Treating Comments Type Date Date Clinician hydrocodone DA Active SV 2018-10 00:00:0 0 Medications This patient has no known medications. Results Test Description Test Time Test Comments Text Results Atomic Results Result Comments REMSEN 2018-11-13 RUN DATE: SEGMENT 19:21:00 11/14/18 [facility] PAGE 1 RUN TIME: 810 RESEC.NOT Specimen Inquiry RUN USER: INTERFACE TUMOR PATIENT: DAISY HAMMER [facility] #: [id number] AGE/SX: 58/F ROOM: [facility] REREG DR: Betito Collazo MD : 56 BED: A DIS: 11/13/18 STATUS: DIS Sharla TLOC: SPEC #: [id number] RECD: 11/11/18-1431 STATUS: BRITTNY JIANG # : [id number] CRISTINO: 11/11/18- SUBM DR: Betito Collazo MD ENTERED: 11/11/18-1431 SP TYPE: COLONR OTHR DR: ORDERED: LEVEL V SURGICA CODES: [id number] - COLON , NOS PROCEDURES: LEVEL V SURGICA (Incomplete) TISSUES: COLON, NOS - RECTOSIGMOID DIVERTICULITIS CLINICAL HISTORY 58 year old, diverticulitis (wpd) FINAL DIAGNOSIS Designated "rectosigmoid diverticulitis", segmental resection: - diverticular disease with peridiverticular fibrosis - intestinal rings - unremarkable CPT code(s): 77088 pk /wpd 11/13/18 GROSS DESCRIPTION ANATOMIC SOURCE OF TISSUE (per Requisition): Rectosigmoid diverticulitis The specimen is received in a formalin-filled container, labeled with the patient's name and designated "rectosigmoid diverticulitis". The specimen consists of three portions of intestinal tissue and two separate winston unremarkable intestinal rings. The intestinal rings measure 1.5 and 3.0 cm. One section from each piece is submitted in A1. The two smaller portions of intestinal mucosa measure 1.6 and 5.0 cm and contains unremarkable mucosa and surrounding tissue. Janitor Helper sections are submitted in A2. The largest segment of intestine measures 14.7 cm in length and ranging from 3 - 3.5 cm in diameter with attached yellow fatty tissue. The serosal surface contains pink fibrous adhesions but no discrete solid mass. Examination of the intestinal wall reveals numerous diverticula ranging from 0.5 - CONTINUED ON NEXT PAGE RUN DATE: 11/14/18 [facility] PAGE 2 RUN TIME: 810 Specimen Inquiry RUN USER: INTERFACE SPEC #: [id number] PATIENT: DAISY HAMMER #[id number] (Continued) -- GROSS DESCRIPTION (Continued) 1.0 cm and containing green-brown fecal material. No discrete perforation or discoloration in those areas are noted. Janitor Helper sections of the intestine with the diverticula are submitted in A3 - A8. Examination of attached adipose tissue reveals no discrete lymph nodes. Janitor Helper sections are submitted in A9 - A16. [employer]/wpd 11/11/18 @ 8529 MICROSCOPIC DESCRIPTION The specimen consists of a segment of rectosigmoid colon containing numerous diverticula which extend through the muscularis into the rectosigmoid adipose tissue. Foci of fibrosis are present adjacent to the diverticula. No granulomas, dysplasia or neoplasia are identified. The intestinal rings are unremarkable. pkg/wpd 11/13/18 Signed Deena Storm 11/13/181920 END OF REPORT * * GLUBED 2018-11-13 07:10:00 Test Item Value Reference Range Comments GLUBED (test code=GLUBED) 180 mg/dL 65-110 COMPREHENSIVE METABOLIC [id number] 05:48:00 Test Item Value Reference Range Comments SODIUM (test code=NA) 142 mEq/L 135-145 POTASSIUM (test code=K) 3.7 mEq/L 3.5-5.0 CHLORIDE (test code=CL) 108 mEq/L 100-115 CARBON DIOXIDE (test code=CO2) 29 mEq/L 22-31 ANION GAP (test code=GAP) 8.70 10-20 GLUCOSE (test code=GLU) 193 mg/dL 65-110 BLOOD UREA NITROGEN (test code=BUN) 12 mg/dL 7-18 GLOMERULAR FILTRATION RATE (test code=GFR) 73 ml/min >60 CREATININE (test code=CREAT) 0.8 mg/dL 0.5-1.0 TOTAL PROTEIN (test code=PROT) 5.4 gm/dL 6.3-8.2 ALBUMIN (test code=ALB) 2.5 gm/dL 3.4-4.8 CALCIUM (test code=CA) 7.8 mg/dL 8.4-10.2 BILIRUBIN TOTAL (test code=BILT) 0.3 mg/dL 0.2-1.0 SGOT/AST (test code=AST) 26 units/L 15-37 SGPT/ALT (test code=ALT) 23 units/L 12-78 ALKALINE PHOSPHATASE TOTAL (test code=ALKP) 106 units/L 46-116 [id number] 05:48:00 Test Item Value Reference Range Comments MAGNESIUM (test code=MAG) 1.8 mg/dL 1.8-2.4 CBC W/AUTO [id number] 04:49:00 Test Item Value Reference Range Comments WHITE BLOOD CELL (test code=WBC) 8.9 K/mm3 6.6-12.1 RED BLOOD CELL (test code=RBC) 3.49 M/mm3 3.45-5.01 HEMOGLOBIN (test code=HGB) 10.6 g/dL 10.7-13.9 HEMATOCRIT (test code=HCT) 32.3 % 32.1-42.1 MEAN CELL VOLUME (test code=MCV) 93 fL 84.1-94.8 MEAN CELL HGB (test code=MCH) 30.4 pg 27-35 MEAN CELL HGB CONCETRATION (test code=MCHC) 32.8 gm/dL 32.2-34.1 RED CELL DISTRIBUTION WIDTH (test code=RDW) 11.9 % 12.4-16.5 PLATELET COUNT (test code=PLT) 205 K/mm3 133-385 IMMATURE PLATELET FRACTION (test code=IPF) 0.0 % 0.0-10.8 MEAN PLATELET VOLUME (test code=MPV) 9.8 fl 9.1-12.7 NEUTROPHIL % (test code=NT%) 70.3 % 56.5-79.4 LYMPHOCYTE % (test code=LY%) 19.3 % 14.3-34.3 MONOCYTE % (test code=MO%) 7.1 % 5.1-10.4 EOSINOPHIL % (test code=EO%) 2.8 % 0.1-3.0 BASOPHIL % (test code=BA%) 0.2 % 0.1-1.0 NEUTROPHIL # (test code=NT#) 6.2 K/mm3 LYMPHOCYTE # (test code=LY#) 1.7 K/mm3 MONOCYTE # (test code=MO#) 0.6 K/mm3 EOSINOPHIL # (test code=EO#) 0.25 K/mm3 BASOPHIL # (test code=BA#) 0.0 K/mm3 RBC MORPHOLOGY REQUIRED (test code=RBCM) NORMAL NORMAL PLATELET MORPHOLOGY REQUIRED (test code=PLTMR) NORMAL NORMAL [id number] 21:57:00 Test Item Value Reference Range Comments GLUBED (test code=GLUBED) 278 mg/dL 65-110 [id number] 17:26:00 Test Item Value Reference Range Comments GLUBED (test code=GLUBED) 292 mg/dL 65-110 Hypoglycemic Protoco [id number] 12:11:00 Test Item Value Reference Range Comments GLUBED (test code=GLUBED) 131 mg/dL 65-110 [id number] 07:23:00 Test Item Value Reference Range Comments GLUBED (test code=GLUBED) 110 mg/dL 65-110 CHEMISTRY 7 [id number] 05:23:00 Test Item Value Reference Range Comments SODIUM (test code=NA) 140 mEq/L 135-145 POTASSIUM (test code=K) 4.2 mEq/L 3.5-5.0 CHLORIDE (test code=CL) 104 mEq/L 100-115 CARBON DIOXIDE (test code=CO2) 26 mEq/L 22-31 ANION GAP (test code=GAP) 13.80 10-20 GLUCOSE (test code=GLU) 115 mg/dL 65-110 BLOOD UREA NITROGEN (test code=BUN) 12 mg/dL 7-18 GLOMERULAR FILTRATION RATE (test code=GFR) 73 ml/min >60 CREATININE (test code=CREAT) 0.8 mg/dL 0.5-1.0 CALCIUM (test code=CA) 7.8 mg/dL 8.4-10.2 [id number] 05:23:00 Test Item Value Reference Range Comments MAGNESIUM (test code=MAG) 1.8 mg/dL 1.8-2.4 CBC W/AUTO [id number] 05:19:00 Test Item Value Reference Range Comments WHITE BLOOD CELL (test code=WBC) 13.0 K/mm3 6.6-12.1 RED BLOOD CELL (test code=RBC) 3.88 M/mm3 3.45-5.01 HEMOGLOBIN (test code=HGB) 11.8 g/dL 10.7-13.9 HEMATOCRIT (test code=HCT) 36.3 % 32.1-42.1 MEAN CELL VOLUME (test code=MCV) 94 fL 84.1-94.8 MEAN CELL HGB (test code=MCH) 30.4 pg 27-35 MEAN CELL HGB CONCETRATION (test code=MCHC) 32.5 gm/dL 32.2-34.1 RED CELL DISTRIBUTION WIDTH (test code=RDW) 11.9 % 12.4-16.5 PLATELET COUNT (test code=PLT) 219 K/mm3 133-385 MEAN PLATELET VOLUME (test code=MPV) 10.6 fl 9.1-12.7 NEUTROPHIL % (test code=NT%) 74.0 % 56.5-79.4 LYMPHOCYTE % (test code=LY%) 18.5 % 14.3-34.3 MONOCYTE % (test code=MO%) 5.3 % 5.1-10.4 EOSINOPHIL % (test code=EO%) 1.6 % 0.1-3.0 BASOPHIL % (test code=BA%) 0.2 % 0.1-1.0 NEUTROPHIL # (test code=NT#) 9.6 K/mm3 LYMPHOCYTE # (test code=LY#) 2.4 K/mm3 MONOCYTE # (test code=MO#) 0.7 K/mm3 EOSINOPHIL # (test code=EO#) 0.21 K/mm3 BASOPHIL # (test code=BA#) 0.0 K/mm3 RBC MORPHOLOGY REQUIRED (test code=RBCM) NORMAL NORMAL PLATELET MORPHOLOGY REQUIRED (test code=PLTMR) NORMAL NORMAL [id number] 22:07:00 Test Item Value Reference Range Comments GLUBED (test code=GLUBED) 171 mg/dL 65-110 [id number] 17:41:00 Test Item Value Reference Range Comments GLUBED (test code=GLUBED) 157 mg/dL 65-110 [id number] 13:26:00 Test Item Value Reference Range Comments GLUBED (test code=GLUBED) 154 mg/dL 65-110 [id number] 06:54:00 Test Item Value Reference Range Comments GLUBED (test code=GLUBED) 143 mg/dL 65-110 CHEMISTRY 7 [id number] 13:07:00 Test Item Value Reference Range Comments SODIUM (test code=NA) 140 mEq/L 135-145 POTASSIUM (test code=K) 3.8 mEq/L 3.5-5.0 CHLORIDE (test code=CL) 102 mEq/L 100-115 CARBON DIOXIDE (test code=CO2) 28 mEq/L 22-31 ANION GAP (test code=GAP) 13.90 10-20 GLUCOSE (test code=GLU) 155 mg/dL 65-110 BLOOD UREA NITROGEN (test code=BUN) 19 mg/dL 7-18 GLOMERULAR FILTRATION RATE (test code=GFR) 57 ml/min >60 CREATININE (test code=CREAT) 1.0 mg/dL 0.5-1.0 CALCIUM (test code=CA) 8.5 mg/dL 8.4-10.2 HGB [id number] 12:51:00 Test Item Value Reference Range Comments HEMOGLOBIN (test code=HGB) 13.6 g/dL 10.7-13.9 HEMATOCRIT (test code=HCT) 40.3 % 32.1-42.1
[2019-05-21 19:07] LABS: Absolute Lymphocytes (CBC) 2.8 K/uL (0.7-4.9); Basophils % 0.9 % (0-1.3); Hematocrit 40.5 % (36.0-45.0); Lymphocytes % 26.5 % (15.3-44.8); MPV 7.8 fL (7.6-11.3); RBC Red Blood Cell Count 4.52 M/uL (3.86-4.86)
[2019-05-21] MEDS ORDERED: ONDANSETRON 4 MG/2 ML VIAL ONE (19:15)
[2019-05-21] MEDS ORDERED: MORPHINE 4 MG/ML SYR ONE (19:15)
[2019-05-21] MEDS ORDERED: NA CHLORIDE 0.9% 1,000 ML ONE (19:15)
[2019-05-21] MEDS ORDERED: PANTOPRAZOLE 40 MG INJ ONE (19:15)
[2019-05-21 19:37] LABS: ALT/SGPT 37 U/L (12-78); Albumin 3.5 g/dL (3.4-5.0); Alkaline Phosphatase 163 U/L (45-117); BUN Blood Urea Nitrogen 19 mg/dL (7-18); Bicarbonate 26 mmol/L (21-32); Bilirubin Direct < 0.1 mg/dL (0-0.2); Bilirubin Total 0.2 mg/dL (0.2-1.0); Glucose Level 279 mg/dL (74-106); Lipase 139 U/L (73-393); Protein, Total 8.1 g/dL (6.4-8.2); Sodium Level 137 mmol/L (136-145)
[2019-05-21 19:38] LABS: AST/SGOT 32 U/L (15-37); Potassium 3.8 mmol/L (3.5-5.1)
--- NOTE | 2019-05-21 20:29 | RAD REPORT ---
EXAM DESCRIPTION: CTAbdomen Pelvis W Contrast - 05/21/2019 8:16 pm CLINICAL HISTORY: Abdominal pain. ABD PAIN COMPARISON: Abdomen Pelvis W Contrast dated 04/28/2019; Abdomen Pelvis W Contrast dated 10/30/2018 ; Abdomen Pelvis W Contrast dated 10/13/2018; Abdomen Pelvis W Contrast dated 08/04/2017 TECHNIQUE: Biphasic CT imaging of the abdomen and pelvis was performed with 100 ml non-ionic IV cont rast. All CT scans are performed using dose optimization technique as appropriate and may include automated exposure control or mA/KV adjustment according to patient size. FINDINGS: The lung bases are clear. Mild diffuse fatty liver is present. Cholecystectomy clips. The spleen, pancreas, adrenal glands kidn eys are within normal limits. No bowel obstruction, free air, free fluid or abscess. Postsurgical changes are present in the sigmoi d colon. Sigmoid diverticulosis is present as well. The appendix is normal. No evidence of significa nt lymphadenopathy. No suspicious bony findings. IMPRESSION: No acute intra-abdominal or pelvic finding. Mild diffuse fatty liver. Sigmoid diverticulosis is present with postsurgical changes. No evidence of diverticulitis.
--- NOTE | 2019-05-21 21:22 | ER ---
Nurse's Notes [facility] Name: Robyn Carrion Age: 58 yrs Sex: Female : 1960 Arrival Date: 05/21/2019 Time: 18:04 Bed 20 Private MD: Diagnosis: Unspecified abdominal pain Presentation: 05/21 18:15 Presenting complaint: Patient states: My tramadol is not working anymore. I have been ca1 on it for almost a month now. Pt diagnosed with pancreatitis and is seeing Dr. Santiago and Dr. Capellan. C/O of upper abdominal pain radiating to the back, N/V/Diarrhea. Transition of care: patient was not received from another setting of care. Onset of symptoms was May 21, 2019. Risk Assessment: Do you want to hurt yourself or someone else? Patient reports no desire to harm self or others. Initial Sepsis Screen: Does the patient meet any 2 criteria? No. Patient's initial sepsis screen is negative. Does the patient have a suspected source of infection? No. Patient's initial sepsis screen is negative. Care prior to arrival: Medication(s) given: Tramadol at 1440. 18:15 Method Of Arrival: Ambulatory ca1 18:15 Acuity: DARA 3 ca1 Historical: - Allergies: 18:22 Codeine; ca1 18:22 HYDROCODONE; ca1 - Home Meds: 18:22 atorvastatin Oral once daily [Active]; Creon 36,000-114,000- 180,000 unit Oral cpDR 2 ca1 caps tid with meal and 1 at bedtime [Active]; Dicyclomine Oral [Active]; Amitiza Oral [Active]; Lantus Sub-Q 47 unit daily [Active]; Zofran (as hydrochloride) 4 mg Oral tab 2 tabs 3 times per day [Active]; - PMHx: 18:22 Diabetes - IDDM; GERD; High Cholesterol; Hypertension; Pancreatitis; TIA; Valverde's ca1 Esophageal Disease; - PSHx: 18:22 Cholecystectomy; Hysterectomy; Hernia repair; Colon Resection; ca1 - Immunization history:: Adult Immunizations up to date, Flu vaccine is up to date. - Coronavirus screen:: The patient has NOT traveled to [place] in the past 14 days. The patient has NOT had contact with known/suspected case of Coronavirus?. - Social history:: Smoking status: Patient denies any tobacco usage or history of. - Ebola Screening: : Patient negative for fever greater than or equal to 101.5 degrees Fahrenheit, and additional compatible Ebola Virus Disease symptoms Patient denies exposure to infectious person Patient denies travel to an Ebola-affected area in the 21 days before illness onset No symptoms or risks identified at this time. Screenin:25 Abuse screen: Denies threats or abuse. Nutritional screening: No deficits noted. rb1 Tuberculosis screening: No symptoms or risk factors identified. Fall Risk None identified. Assessment: 18:25 General: Appears uncomfortable, Behavior is calm, cooperative, Denies fever. General: rb1 Denies Drinking alcohol. Reports that she adjusted her diet to try to fix it at home because she knows the routine, but it isn't working. Pain: Complains of pain in epigastric area Pain radiates to back Pain currently is 10 out of 10 on a pain scale. Pain began x one month. Neuro: Level of Consciousness is awake, alert, obeys commands, Oriented to person, place, time, situation. Cardiovascular: Capillary refill < 3 seconds is brisk in bilateral fingers. Respiratory: Airway is patent Respiratory effort is even, unlabored, Respiratory pattern is regular, symmetrical. GI: Reports diarrhea, nausea, vomiting. : No signs and/or symptoms were reported regarding the genitourinary system. Derm: Skin is pink, warm \T\ dry. 19:15 Reassessment: Patient appears in no apparent distress at this time. No changes from previously documented assessment. Patient and/or family updated on plan of care and expected duration. Pain level reassessed. Patient is alert, oriented x 3, equal unlabored respirations, skin warm/dry/pink. 20:44 Reassessment: Patient appears in no apparent distress at this time. No changes from previously documented assessment. Patient and/or family updated on plan of care and expected duration. Pain level reassessed. Patient is alert, oriented x 3, equal unlabored respirations, skin warm/dry/pink. Patient states feeling better. Patient states symptoms have improved. Vital Signs: 18:22 BP 160 / 105; Pulse 102; Resp 19 S; Temp 97.8(O); Pulse Ox 98% on R/A; Weight 71.21 kg ca1 (R); Height 5 ft. 2 in. (157.48 cm) (R); Pain 8/10; 20:30 BP 146 / 76; Pulse 72; Resp 18; Pulse Ox 98% on R/A; wh 21:50 BP 137 / 83; Pulse 70; Resp 16; Temp 98.0(O); Pulse Ox 98% on R/A; Pain 5/10; ls4 18:22 Body Mass Index 28.72 (71.21 kg, 157.48 cm) ca1 ED Course: 18:04 Patient arrived in ED. as 18:19 Triage completed. ca1 18:22 Arm band placed on right wrist. ca1 18:25 Patient has correct armband on for positive identification. Bed in low position. Call rb1 light in reach. Side rails up X 1. Pulse ox on. NIBP on. 18:26 Tian Adams PA is PHCP. cp 18:26 Eric Umana MD is Attending Physician. cp 18:28 Leigh Terrell, HAIDER is Primary Nurse. rb1 19:00 Inserted saline lock: 20 gauge in left antecubital area, using aseptic technique. ls4 19:07 Antony Ely MD is Attending Physician. cp 21:21 Hipolito Marquez MD is Referral Physician. cp 21:51 No provider procedures requiring assistance completed. Patient did not have IV access ls4 during this emergency room visit. Administered Medications: 19:12 Drug: NS 0.9% 1000 ml Route: IV; Rate: 1000 ml/hr; Site: left antecubital; 19:14 Drug: morphine 4 mg Route: IVP; Site: left antecubital; 19:16 Drug: ProTONIX 40 mg Route: IVP; Site: left antecubital; 19:18 Drug: Zofran 4 mg Route: IVP; Site: left antecubital; Outcome: 21:21 Discharge ordered by MD. cp 21:51 Discharged to home ambulatory, with family. ls4 21:51 Condition: stable 21:51 Discharge instructions given to patient, family, Instructed on discharge instructions, follow up and referral plans. medication usage, Demonstrated understanding of instructions, follow-up care, medications, Prescriptions given X 1. 21:53 Patient left the ED. ls4 Signatures: Salma Kumar as Tian Adams PA PA cp Leigh Terrell, HAIDER RN rb1 HabLuz Elena urbina Lisa, RN RN ls4 Kalpana Stewart, RN RN ca1
--- NOTE | 2019-05-21 21:23 | EDPHYS ---
Physician Documentation [facility] Name: Robyn Carrion Age: 58 yrs Sex: Female : 1960 Arrival Date: 05/21/2019 Time: 18:04 Bed 20 Private MD: ED Physician Antony Ely HPI: 05/21 18:35 This 58 yrs old Female presents to ER via Ambulatory with complaints of cp pancreatitis. 18:35 The patient presents with abdominal pain in the upper abdomen. cp 18:35 Onset: The symptoms/episode began/occurred 1 month(s) ago. The symptoms radiate to cp Associated signs and symptoms: Pertinent positives: nausea and vomiting, Pertinent negatives: blood in stools, constipation, diarrhea, fever, shortness of breath. The symptoms are described as constant. The patient has experienced similar episodes in the past, today's symptoms are similar, to when the patient was apparently diagnosed with pancreatitis. Historical: - Allergies: 18:22 Codeine; ca1 18:22 HYDROCODONE; ca1 - Home Meds: 18:22 atorvastatin Oral once daily [Active]; Creon 36,000-114,000- 180,000 unit Oral cpDR 2 ca1 caps tid with meal and 1 at bedtime [Active]; Dicyclomine Oral [Active]; Amitiza Oral [Active]; Lantus Sub-Q 47 unit daily [Active]; Zofran (as hydrochloride) 4 mg Oral tab 2 tabs 3 times per day [Active]; - PMHx: 18:22 Diabetes - IDDM; GERD; High Cholesterol; Hypertension; Pancreatitis; TIA; Valverde's ca1 Esophageal Disease; - PSHx: 18:22 Cholecystectomy; Hysterectomy; Hernia repair; Colon Resection; ca1 - Immunization history:: Adult Immunizations up to date, Flu vaccine is up to date. - Coronavirus screen:: The patient has NOT traveled to [place] in the past 14 days. The patient has NOT had contact with known/suspected case of Coronavirus?. - Social history:: Smoking status: Patient denies any tobacco usage or history of. - Ebola Screening: : Patient negative for fever greater than or equal to 101.5 degrees Fahrenheit, and additional compatible Ebola Virus Disease symptoms Patient denies exposure to infectious person Patient denies travel to an Ebola-affected area in the 21 days before illness onset No symptoms or risks identified at this time. ROS: 18:40 Constitutional: Negative for body aches, chills, fever, poor PO intake. cp 18:40 Eyes: Negative for injury, pain, redness, and discharge. cp 18:40 ENT: Negative for drainage from ear(s), ear pain, sore throat, difficulty swallowing, difficulty handling secretions. 18:40 Cardiovascular: Negative for chest pain, edema, palpitations. 18:40 Respiratory: Negative for cough, shortness of breath, wheezing. 18:40 Abdomen/GI: Positive for abdominal pain, nausea and vomiting, Negative for diarrhea, constipation, black/tarry stool, rectal bleeding. 18:40 Back: Positive for radiated pain. 18:40 : Negative for urinary symptoms. 18:40 Neuro: Negative for altered mental status, headache, weakness. 18:40 All other systems are negative. Exam: 18:45 Constitutional: The patient appears in no acute distress, alert, awake, cp non-diaphoretic, non-toxic, well developed, well nourished, uncomfortable. 18:45 Head/Face: Normocephalic, atraumatic. cp 18:45 Eyes: Periorbital structures: appear normal, Conjunctiva: normal, no exudate, no injection, Sclera: no appreciated abnormality, Lids and lashes: appear normal, bilaterally. 18:45 ENT: External ear(s): are unremarkable, Nose: is normal, Mouth: Lips: moist, Oral mucosa: pink and intact, moist, Posterior pharynx: is normal, airway is patent, no erythema, no exudate. 18:45 Chest/axilla: Inspection: normal, Palpation: is normal, no crepitus, no tenderness. 18:45 Cardiovascular: Rate: tachycardic, Rhythm: regular, Edema: is not appreciated, JVD: is not appreciated. 18:45 Respiratory: the patient does not display signs of respiratory distress, Respirations: normal, no use of accessory muscles, no retractions, labored breathing, is not present, Breath sounds: are clear throughout, no decreased breath sounds. 18:45 Abdomen/GI: Inspection: abdomen appears normal, Bowel sounds: active, all quadrants, Palpation: soft, in all quadrants, moderate abdominal tenderness, in the right upper quadrant and left upper quadrant, rebound tenderness, is not appreciated, voluntary guarding, is elicited in the right upper quadrant and left upper quadrant. 18:45 Back: pain, that is moderate, ROM is normal. 18:45 Skin: no rash present. 18:45 Neuro: Orientation: to person, place \T\ time. Mentation: is normal, Motor: moves all fours, strength is normal. Vital Signs: 18:22 BP 160 / 105; Pulse 102; Resp 19 S; Temp 97.8(O); Pulse Ox 98% on R/A; Weight 71.21 kg ca1 (R); Height 5 ft. 2 in. (157.48 cm) (R); Pain 8/10; 20:30 BP 146 / 76; Pulse 72; Resp 18; Pulse Ox 98% on R/A; wh 21:50 BP 137 / 83; Pulse 70; Resp 16; Temp 98.0(O); Pulse Ox 98% on R/A; Pain 5/10; ls4 18:22 Body Mass Index 28.72 (71.21 kg, 157.48 cm) ca1 MDM: 18:28 Patient medically screened. cp 19:00 Differential diagnosis: gastritis, gastroesophageal reflux disease, non-specific abd cp pain, pancreatitis, Peptic Ulcer Disease, Perf. Duodenal Ulcer, Perf. Gastric Ulcer, urinary tract infection. 21:20 Data reviewed: vital signs, nurses notes, lab test result(s), radiologic studies, CT cp scan. 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 Response to treatment: the patient's symptoms have markedly improved after treatment. Special discussion: Based on the patient's Hx, exam, and Dx evaluation, there is no indication for emergent surgery or inpatient Tx. It is understood by the patient/guardian that if the Sx's persist or worsen they need to return immediately for re-evaluation. ED course: VSS. Labs reviewed and lipase WNL and CT abdomen negative for acute changes. Will discharge to home for continued monitoring. Patient has pain medications at home. 05/21 18:35 Order name: Basic Metabolic Panel cp 05/21 18:35 Order name: CBC with Diff cp 05/21 18:35 Order name: Creatinine for Radiology 05/21 18:35 Order name: Hepatic Function / 18:35 Order name: Lipase 05/21 19:08 Order name: CBC with Automated Diff; Complete Time: 20:05 EDMS 05/21 18:51 Order name: CT Abd/Pelvis - IV Contrast Only 05/21 19:38 Order name: Basic Metabolic Panel; Complete Time: 20:05 EDMS 05/21 20:05 Interpretation: Normal except: GLUC 279; BUN 19; GFR 63. cp / 19:38 Order name: Liver (Hepatic) Function; Complete Time: 20:05 EDMS 05/21 20:05 Interpretation: Normal except: ALK 163; GLOB 4.6; A/G 0.8. 05/21 19:38 Order name: Lipase; Complete Time: 20:05 EDMS 05/21 20:06 Interpretation: Within normal limits: LIP 139. 05/21 19:39 Order name: Creatinine (Radiology Only); Complete Time: 20:05 EDMS 05/21 20:33 Order name: CT; Complete Time: 21:08 EDMS 05/21 21:10 Interpretation: Report reviewed. 05/21 18:35 Order name: IV Saline Lock; Complete Time: 19:01 05/21 18:35 Order name: Labs collected and sent; Complete Time: 19:01 cp Administered Medications: 19:12 Drug: NS 0.9% 1000 ml Route: IV; Rate: 1000 ml/hr; Site: left antecubital; 19:14 Drug: morphine 4 mg Route: IVP; Site: left antecubital; 19:16 Drug: ProTONIX 40 mg Route: IVP; Site: left antecubital; 19:18 Drug: Zofran 4 mg Route: IVP; Site: left antecubital; Disposition: 22:11 Co-signature as Attending Physician, Antony Ely MD. rn Disposition: 05/21/19 21:21 Discharged to Home. Impression: Unspecified abdominal pain. - Condition is Stable. - Discharge Instructions: Abdominal Pain, Adult. - Prescriptions for Bentyl 20 mg Oral Tablet - take 2 tablets by ORAL route every 6 hours As needed; 30 tablet. - Medication Reconciliation Form, Thank You Letter, Antibiotic Education, Prescription Opioid Use form. - Follow up: Hipolito Marquez MD; When: 1 - 2 days; Reason: Recheck today's complaints. - Problem is new. - Symptoms have improved. Signatures: Dispatcher [employer] EDMS Antony Ely MD MD rn Tian Adams PA PA cp Luz Elena Kowalski Lisa, RN RN ls4 Kalpana Stewart RN RN ca1 Corrections: (The following items were deleted from the chart) 21:53 21:21 05/21/2019 21:21 Discharged to Home. Impression: Unspecified abdominal pain. ls4 Condition is Stable. Forms are Medication Reconciliation Form, Thank You Letter, Antibiotic Education, Prescription Opioid Use. Follow up: Hipolito Marquez; When: 1 - 2 days; Reason: Recheck today's complaints. Problem is new. Symptoms have improved. cp
[2019-05-23 03:04] VITALS: O2SAT 98
[2019-05-23 03:06] VITALS: BP 137/83; TEMP 98
== END 2019-05-21 21:53 | disposition home or self-care (01) ==
LOC: ER 18:02
DX: R10.10 Upper abdominal pain, unspecified (principal); I10 Essential (primary) hypertension; E78.00 Pure hypercholesterolemia, unspecified; E11.9 Type 2 diabetes mellitus without complications; Z88.5 Allergy status to narcotic agent
CPT/HCPCS: 85025; 80048; 36415; 80076; 83690; 74177; 96375; 96374; 99284; Q9967; C9113; J7030; J2405

== ENCOUNTER 2019-06-20 21:32 | Inpatient (IN) | payer OTHER ==
--- OUTSIDE RECORDS SUMMARY | 2019-06-20 21:35 | XMS REPORT ---
:1960 Author Organization [facility] Address [address] [place] [address] Care Team Providers Name Role Phone Unavailable [...] Comments Text Results Atomic Results Result Comments ESSEX 2018-11-13 RUN DATE: SEGMENT 19:21:00 11/14/18 [facility] PAGE 1 RUN TIME: 810 RESEC.NOT Specimen Inquiry RUN USER: INTERFACE TUMOR PATIENT: DAISY HAMMER [facility] #: [id number] AGE/SX: 58/F ROOM: [facility] REREG DR: Betito Collazo MD : 56 BED: A DIS: 11/13/18 STATUS: DIS Sharla TLOC: SPEC #: [id number] RECD: 11/11/18-1431 STATUS: BRITTNY JIANG # : [id number] CRISTINO: 11/11/18- SUBM DR: Betito Collazo MD ENTERED: 11/11/18-1431 SP TYPE: COLONR OTHR DR: ORDERED: LEVEL V SURGICA CODES: [id number] - COLON , NOS PROCEDURES: LEVEL V SURGICA (Incomplete) TISSUES: COLON, NOS - RECTOSIGMOID DIVERTICULITIS CLINICAL HISTORY 58 year old, diverticulitis (wpd) FINAL DIAGNOSIS Designated "rectosigmoid diverticulitis", segmental resection: - diverticular disease with peridiverticular fibrosis - intestinal rings - unremarkable CPT code(s): 05616 pk /wpd 11/13/18 GROSS DESCRIPTION ANATOMIC SOURCE [...] and contains unremarkable mucosa and surrounding tissue. Conditioning Machine Operator sections are submitted in A2. The largest [...] Specimen Inquiry RUN USER: INTERFACE SPEC #: [id number] PATIENT: DAISY HAMMER #[id number] (Continued) -- GROSS DESCRIPTION (Continued) 1.0 cm and containing green-brown fecal material. No discrete perforation or discoloration in those areas are noted. Conditioning Machine Operator sections of the intestine with the diverticula are submitted in A3 - A8. Examination of attached adipose tissue reveals no discrete lymph nodes. Conditioning Machine Operator sections are submitted in A9 - A16. [employer]/wpd 11/11/18 @ 4710 MICROSCOPIC DESCRIPTION The specimen consists of a [...] (test code=GLUBED) 180 mg/dL 65-110 COMPREHENSIVE METABOLIC [id number] 05:48:00 Test Item Value Reference Range Comments [...] PHOSPHATASE TOTAL (test code=ALKP) 106 units/L 46-116 [id number] 05:48:00 Test Item Value Reference Range Comments MAGNESIUM (test code=MAG) 1.8 mg/dL 1.8-2.4 CBC W/AUTO [id number] 04:49:00 Test Item Value Reference Range Comments [...] PLATELET MORPHOLOGY REQUIRED (test code=PLTMR) NORMAL NORMAL [id number] 21:57:00 Test Item Value Reference Range Comments GLUBED (test code=GLUBED) 278 mg/dL 65-110 [id number] 17:26:00 Test Item Value Reference Range Comments GLUBED (test code=GLUBED) 292 mg/dL 65-110 Hypoglycemic Protoco [id number] 12:11:00 Test Item Value Reference Range Comments GLUBED (test code=GLUBED) 131 mg/dL 65-110 [id number] 07:23:00 Test Item Value Reference Range Comments GLUBED (test code=GLUBED) 110 mg/dL 65-110 CHEMISTRY 7 [id number] 05:23:00 Test Item Value Reference Range Comments [...] 0.5-1.0 CALCIUM (test code=CA) 7.8 mg/dL 8.4-10.2 [id number] 05:23:00 Test Item Value Reference Range Comments MAGNESIUM (test code=MAG) 1.8 mg/dL 1.8-2.4 CBC W/AUTO [id number] 05:19:00 Test Item Value Reference Range Comments [...] PLATELET MORPHOLOGY REQUIRED (test code=PLTMR) NORMAL NORMAL [id number] 22:07:00 Test Item Value Reference Range Comments GLUBED (test code=GLUBED) 171 mg/dL 65-110 [id number] 17:41:00 Test Item Value Reference Range Comments GLUBED (test code=GLUBED) 157 mg/dL 65-110 [id number] 13:26:00 Test Item Value Reference Range Comments GLUBED (test code=GLUBED) 154 mg/dL 65-110 [id number] 06:54:00 Test Item Value Reference Range Comments GLUBED (test code=GLUBED) 143 mg/dL 65-110 CHEMISTRY 7 [id number] 13:07:00 Test Item Value Reference Range Comments [...] CALCIUM (test code=CA) 8.5 mg/dL 8.4-10.2 HGB [id number] 12:51:00 Test Item Value Reference Range Comments HEMOGLOBIN (test code=HGB) 13.6 g/dL 10.7-13.9 HEMATOCRIT (test code=HCT) 40.3 % 32.1-42.1
[2019-06-20] MEDS ORDERED: propofoL 200 MG/20 ML VIAL IV ONE (21:46)
[2019-06-20] MEDS ORDERED: propofoL 1,000 MG/100 ML VIAL IV ONE (21:53)
[2019-06-20 22:04] LABS: Basophils % 0.9 % (0-1.3); Hematocrit 40.8 % (36.0-45.0); Lymphocytes % 27.6 % (15.3-44.8); MPV 7.9 fL (7.6-11.3); Protime INR 0.95; RBC Red Blood Cell Count 4.47 M/uL (3.86-4.86)
[2019-06-20 22:14] LABS: Arterial Blood Carboxyhemoglob 0.8 % (0-1.5); Blood Gas Oxyhemoglobin 98.4 % (94-97); Blood O2 Saturation 99.9 % (92-98.5)
[2019-06-20 22:27] LABS: Urine Blood 1+ (NEG); Urine Glucose 2+ (NEG); Urine Protein 2+ (NEG); Urine Specific Gravity >1.030 (1.005-1.030); Urine pH 5.5 (5.0-7.0)
[2019-06-20 22:30] LABS: ALT/SGPT 44 U/L (12-78); AST/SGOT 39 U/L (15-37); Albumin 3.7 g/dL (3.4-5.0); Alkaline Phosphatase 168 U/L (45-117); BUN Blood Urea Nitrogen 17 mg/dL (7-18); Bicarbonate 26 mmol/L (21-32); Bilirubin Direct < 0.1 mg/dL (0-0.2); Bilirubin Total 0.3 mg/dL (0.2-1.0); Glucose Level 225 mg/dL (74-106); NT PRO-BNP 20 pg/mL (<125); Potassium 4.1 mmol/L (3.5-5.1); Protein, Total 8.5 g/dL (6.4-8.2); Sodium Level 136 mmol/L (136-145); Troponin (Emerg Dept Use Only) < 0.02 ng/mL (0.0-0.045)
[2019-06-20] MEDS ORDERED: MIDAZOLAM HCL 2 MG/2 ML INJ ONE (22:37)
--- NOTE | 2019-06-21 00:56 | EDPHYS ---
Physician Documentation [facility] Name: Robyn Carrion Age: 58 yrs Sex: Female : 1960 Arrival Date: 06/20/2019 Time: 21:35 Bed 3 Private MD: ED Physician Romeo Harvey HPI: 06/20 06:38 This 58 yrs old Female presents to ER via EMS with complaints of Shortness Of tw4 Breath. 06:38 This 58 yrs old Female presents to ER via EMS with complaints of Shortness Of tw4 Breath. 06:38 The patient has shortness of breath at rest, that occurred at home, while eating pt had tw4 a choking episode. Onset: The symptoms/episode began/occurred just prior to arrival. Duration: The symptoms are continuous. Severity of symptoms: At their worst the symptoms were severe in the emergency department the symptoms have resolved. Unable to obtain HPI due to comatose state. Unable to obtain HPI due to patient is on ventilator. The patient has experienced similar episodes in the past, a few times. Pt was intubated in the field by EMS. Historical: - Allergies: 06/19 23:41 Codeine; ea 23:41 HYDROCODONE; ea - Home Meds: 23:41 Amitiza Oral [Active]; atorvastatin Oral once daily [Active]; Zofran (as hydrochloride) ea 4 mg Oral tab 2 tabs 3 times per day [Active]; Lantus Sub-Q 47 unit daily [Active]; Dicyclomine Oral [Active]; Creon 36,000-114,000- 180,000 unit Oral cpDR 2 caps tid with meal and 1 at bedtime [Active]; - PMHx: 23:41 TIA; Pancreatitis; Hypertension; High Cholesterol; Diabetes - IDDM; GERD; Valverde's ea Esophageal Disease; - PSHx: 23:41 Colon Resection; Hernia repair; Hysterectomy; Cholecystectomy; ea - Immunization history:: Adult Immunizations unknown. - Social history:: Smoking status: unknown. ROS: 06/20 06:38 All other systems are negative. tw4 Unable to obtain ROS due to comatose state, patient is on ventilator. Exam: 06:39 Constitutional: This is a well developed, well nourished patient who is awake, alert, tw4 and in no acute distress. Chest/axilla: Normal chest wall appearance and motion. Nontender with no deformity. No lesions are appreciated. 06:39 Abdomen/GI: Soft, non-tender, with normal bowel sounds. No distension or tympany. No guarding or rebound. No evidence of tenderness throughout. Back: No spinal tenderness. No costovertebral tenderness. Full range of motion. MS/ Extremity: Pulses equal, no cyanosis. Neurovascular intact. Full, normal range of motion. 06:39 Cardiovascular: Rate: tachycardic. 06:39 Respiratory: pt is ventilated with clear equal breath sounds. 06:39 Neuro: Orientation: unable to test, the patient is comatose, Mentation: responsive to voice Memory: Cranial nerves: unable to test, the patient is comatose, Motor: moves all fours, Sensation: unable to test, the patient is comatose. Vital Signs: 06/19 21:33 BP 184 / 112; Pulse 121; Resp 22 A; Temp 97.5(TE); Pulse Ox 100% ; ea 23:36 Weight 72.57 kg; Height 5 ft. 3 in. (160.02 cm); ea 23:36 BP 157 / 93; Pulse 99; Resp 21; Temp 99.4; Pulse Ox 99% ; ea 06/20 01:19 BP 116 / 73; Pulse 82; Resp 18; Temp 99.2; Pulse Ox 99% on R/A; ea 03:00 BP 100 / 59; Pulse 77; Resp 18; Pulse Ox 97% ; ea 03:00 BP 102 / 62; Pulse 79; Resp 18; Temp 98.6; Pulse Ox 98% on R/A; ea 04:30 BP 113 / 58; Pulse 80; Resp 18; Pulse Ox 98% ; ea 05:45 BP 115 / 62; Pulse 86; Resp 19; Pulse Ox 98% on R/A; ea 06:30 BP 127 / 67; Pulse 78; Resp 83; Pulse Ox 99% on R/A; sv 06/19 23:36 Body Mass Index 28.34 (72.57 kg, 160.02 cm) ea MDM: 06/19 21:37 Patient medically screened. tw4 06/20 06:39 Differential diagnosis: Anemia Anxiety Reaction Bronchitis CHF exacerbation, Chronic tw4 Obstructive Pulmonary Disease pneumonia, Pneumothorax pulmonary edema, Pulmonary Embolism reactive airway disease. Antibiotic administration: Not indicated. Data reviewed: vital signs, nurses notes. Data reviewed: lab test result(s), cardiac enzymes, CBC, electrolytes, hepatic panel, EKG, radiologic studies, CT scan, plain films. Data interpreted: engine monitor: rhythm is sinus tachycardia, Pulse oximetry: Interpretation: normal. Arterial blood gas: is normal except: pH: 7.35, PO2: 403, PCO2: 46. Test interpretation: by ED physician or midlevel provider: ECG, plain radiologic studies. Counseling: I had a detailed discussion with the patient and/or guardian regarding: the historical points, exam findings, and any diagnostic results supporting the discharge/admit diagnosis. Physician consultation: Atul Garcia MD regarding admission, to the telemetry unit. patient's condition, and will see patient in ED. ED course: Pt had negative workup in the ED regarding cause for respiratory failure. Pt was able to follow command swell on the ventilator. ABG was normal andwell as chest xray and CT coif chest. Decision was made to extubate pt in ED with respiratory at bedside. pt remained stable and oxygen saturation were normal on 2L NC. discussed case with Dr garcia who agrees with treatment plan an admission . 06/19 21:48 Order name: Basic Metabolic Panel; Complete Time: 23: 06/19 21:48 Order name: CBC with Diff; Complete Time: 23: 06/19 21:48 Order name: LFT's; Complete Time: 23: 06/19 21:48 Order name: Magnesium; Complete Time: 23:19 06/19 21:48 Order name: NT PRO-BNP; Complete Time: 23:19 06/19 21:48 Order name: PT-INR; Complete Time: 23:19 06/19 21:48 Order name: Troponin (emerg Dept Use Only); Complete Time: 23: 06/19 21:59 Order name: Glucose, Ancillary Testing; Complete Time: 23:19 EDWA 06/19 22:14 Order name: ABG Arterial Blood Gas; Complete Time: 23:19 [facility] 06/19 22:15 Order name: Urine Dipstick--Ancillary (enter results); Complete Time: 23:19 ds4 06/20 02:38 Order name: Urinalysis [facility] 06/20 02:38 Order name: CBC with Automated Diff [facility] 06/20 02:38 Order name: CBC with Automated Diff EDMS 06/20 02:38 Order name: Comprehensive Metabolic Panel EDMS 06/19 21:48 Order name: XRAY Chest (1 view) ea 06/19 21:48 Order name: EKG; Complete Time: 21:48 ea 06/19 21:48 Order name: Cardiac monitoring; Complete Time: 22:14 ea 06/19 21:48 Order name: EKG - Nurse/Tech; Complete Time: 22:14 ea 06/19 22:33 Order name: CT Chest For PE Angio tw4 06/20 00:28 Order name: Head Brain Wo Cont EDMS 06/20 02:38 Order name: CONS Physician Consult EDMS 06/20 02:38 Order name: CONS Physician Consult EDMS 06/20 02:38 Order name: Clear Liquid EDMS 06/20 02:38 Order name: Comprehensive Metabolic Panel EDMS 06/20 02:38 Order name: Magnesium EDMS 06/20 02:38 Order name: Magnesium EDMS 06/20 02:38 Order name: Phosphorus EDMS 06/20 02:38 Order name: Phosphorus EDMS 06/19 21:48 Order name: IV Saline Lock; Complete Time: 22:14 ea 06/19 21:48 Order name: Labs collected and sent; Complete Time: 22:14 ea 06/19 21:48 Order name: O2 Per Protocol; Complete Time: 22:14 ea 06/19 21:48 Order name: O2 Sat Monitoring; Complete Time: 22:14 ea EC:39 Rate is 113 beats/min. Rhythm is regular. QRS [place] is Normal. [place] interval is normal. tw4 QRS interval is normal. QT interval is normal. No Q waves. T waves are Normal. No ST changes noted. Clinical impression: Sinus tachycardia. Interpreted by me. Reviewed by me. Administered Medications: 06/19 21:45 Drug: Propofol 5 mcg/kg/min Route: IV; Rate: calculated rate; Site: left forearm; ea 06/20 00:05 Follow up: Response: No adverse reaction; IV Status: Order to discontinue infusion ea 06/19 23:35 Drug: Versed 4 mg Route: IVP; Site: left antecubital; 23:50 Follow up: Response: No adverse reaction Disposition: 06/20 06:46 Critical Care:. tw4 06:47 Chart complete. tw4 Disposition: 06/21/19 00:55 Hospitalization ordered by Atul Garcia for Observation. Preliminary diagnosis are Respiratory failure, unspecified, choking episode. - Bed requested for Telemetry/MedSurg (observation). - Status is Observation. hb - Condition is Stable. - Problem is new. - Symptoms have improved. Critical care time excluding procedures: 06:46 Critical care time: Bedside Care: 35 minutes, Consultation: 5 minutes, Family tw4 Intervention: 5 minutes. Total time: 45 minutes Signatures: Dispatcher [employer] EDMS Yessy Tubbs RN RN Paulette Quezada RN RN lp1 Chloe Martins RN RN hb Raven Paul, RN Romeo Olivares ea, MD MD tw4 Yesenia Silveira Ronaldo, RN HAIDER Anahi Coffey RN RN Corrections: (The following items were deleted from the chart) 02:41 00:55 Hospitalization Ordered by Atul Garcia MD for Observation. Preliminary lp1 diagnosis is Respiratory failure, unspecified; choking episode. Bed requested for Telemetry/MedSurg (observation). Status is Observation. Condition is Stable. Problem is new. Symptoms have improved. tw4 06:46 06:38 All other systems are negative, tw4 tw4 09:38 02:41 06/21/2019 00:55 Hospitalization Ordered by Atul Garcia MD for Observation. eb Preliminary diagnosis is Respiratory failure, unspecified; choking episode. Bed requested for [facility] ER HOLD. Status is Observation. Condition is Stable. Problem is new. Symptoms have improved. lp1 12:12 09:38 06/21/2019 00:55 Hospitalization Ordered by Atul Garcia MD for Observation. dw Preliminary diagnosis is Respiratory failure, unspecified; choking episode. Bed requested for [facility] ER HOLD. Status is Observation. Condition is Stable. Problem is new. Symptoms have improved. eb 13:24 12:12 06/21/2019 00:55 Hospitalization Ordered by Atul Garcia MD for Observation. hb Preliminary diagnosis is Respiratory failure, unspecified; choking episode. Bed requested for Telemetry/MedSurg (observation). Status is Observation. Condition is Stable. Problem is new. Symptoms have improved. dw
--- NOTE | 2019-06-21 00:56 | ER ---
Nurse's Notes [facility] Name: Robyn Carrion Age: 58 yrs Sex: Female : 1960 Arrival Date: 06/20/2019 Time: 21:35 Bed 3 Private MD: Diagnosis: Respiratory failure, unspecified;choking episode Presentation: 06/19 21:33 Initial Sepsis Screen: Does the patient meet any 2 criteria? RR > 20 per min. HR > 90 ea bpm. Does the patient have a suspected source of infection? No. Patient's initial sepsis screen is negative. Risk Assessment: Do you want to hurt yourself or someone else? Patient reports no desire to harm self or others. 21:33 Acuity: DARA 2 ea 21:50 Chief complaint: EMS states: Reports about 45 minutes ago she was complaining of SOB, ea upon EMS arrival she was panicked and gasping. Pt was sedated and intubated per EMS. 7.5 ET tube, 21 \T\ the teeth, NGT 14 Fr to left nare. Coronavirus screen: The patient has NOT traveled to a country currently being monitored by the CDC within the last 14 days. Ebola Screen: No symptoms or risks identified at this time. 21:50 Method Of Arrival: EMS: [facility] ea Triage Assessment: 22:15 General: Pt seadated and intubated. ea Historical: - Allergies: 23:41 Codeine; ea 23:41 HYDROCODONE; ea - Home Meds: 23:41 Amitiza Oral [Active]; atorvastatin Oral once daily [Active]; Zofran (as hydrochloride) ea 4 mg Oral tab 2 tabs 3 times per day [Active]; Lantus Sub-Q 47 unit daily [Active]; Dicyclomine Oral [Active]; Creon 36,000-114,000- 180,000 unit Oral cpDR 2 caps tid with meal and 1 at bedtime [Active]; - PMHx: 23:41 TIA; Pancreatitis; Hypertension; High Cholesterol; Diabetes - IDDM; GERD; Valverde's ea Esophageal Disease; - PSHx: 23:41 Colon Resection; Hernia repair; Hysterectomy; Cholecystectomy; ea - Immunization history:: Adult Immunizations unknown. - Social history:: Smoking status: unknown. Screenin:55 Abuse screen: Denies threats or abuse. Nutritional screening: No deficits noted. ea Tuberculosis screening: No symptoms or risk factors identified. 23:38 Fall Risk IV access (20 points). ea Assessment: 21:56 General: Appears uncomfortable, Behavior is Pt is sedated. Pain: Unable to use pain ea scale. FLACC scale score is 3 out of 10. Neuro: Level of Consciousness is pt sedated . Cardiovascular: Patient's skin is warm and dry. Respiratory: Airway via oral intubation Respiratory effort is assisted respirations per vent. Derm: Skin is pink, warm \T\ dry. 22:30 Reassessment: Pt resting with eyes closed, sedated and intubated. ETT in place ea respirations assisted. Cristo breath sounds clear. NG tube in place to low intermittent suction. Neri catheter in place to BSD. IV sites intact and patent with fluid infusing. No erythema or edema noted. 06/20 00:15 Reassessment: Extubated at this time. Pt placed on O2 \T\ 3lpm via NC. ea 01:20 Reassessment: Patient and/or family updated on plan of care and expected duration. Pain ea level reassessed. Patient is alert, oriented x 3, equal unlabored respirations, skin warm/dry/pink. Pt taken to CT. 02:50 Reassessment: Patient and/or family updated on plan of care and expected duration. Pain ea level reassessed. Patient is alert, oriented x 3, equal unlabored respirations, skin warm/dry/pink. Family remains at bedside. 03:30 Reassessment: Patient and/or family updated on plan of care and expected duration. Pain ea level reassessed. Patient is alert, oriented x 3, equal unlabored respirations, skin warm/dry/pink. 04:00 Reassessment: Patient and/or family updated on plan of care and expected duration. Pain ea level reassessed. Pt resting with eyes closed, respirations even and unlabored. No s/s of pain or discomfort. 05:00 Reassessment: Patient and/or family updated on plan of care and expected duration. Pain ea level reassessed. Pt resting with eyes closed, respirations even and unlabored, chest expansions even and symmetrical. No s/s of pain or discomfort noted at this time. 06:05 Reassessment: Patient is alert, oriented x 3, equal unlabored respirations, skin ea warm/dry/pink. Pt resting with eyes closed, respirations even and unlabored, chest expansions even and symmetrical. No s/s of pain or discomfort noted at this time. 12:56 Reassessment: Attempted to call report, nurse to call back. sv Vital Signs: 06/19 21:33 BP 184 / 112; Pulse 121; Resp 22 A; Temp 97.5(TE); Pulse Ox 100% ; ea 23:36 Weight 72.57 kg; Height 5 ft. 3 in. (160.02 cm); ea 23:36 BP 157 / 93; Pulse 99; Resp 21; Temp 99.4; Pulse Ox 99% ; ea 06/20 01:19 BP 116 / 73; Pulse 82; Resp 18; Temp 99.2; Pulse Ox 99% on R/A; ea 03:00 BP 100 / 59; Pulse 77; Resp 18; Pulse Ox 97% ; ea 03:00 BP 102 / 62; Pulse 79; Resp 18; Temp 98.6; Pulse Ox 98% on R/A; ea 04:30 BP 113 / 58; Pulse 80; Resp 18; Pulse Ox 98% ; ea 05:45 BP 115 / 62; Pulse 86; Resp 19; Pulse Ox 98% on R/A; ea 06:30 BP 127 / 67; Pulse 78; Resp 83; Pulse Ox 99% on R/A; sv 06/19 23:36 Body Mass Index 28.34 (72.57 kg, 160.02 cm) ea ED Course: 06/19 21:35 Patient arrived in ED. cf2 21:37 Romeo Harvey MD is Attending Physician. tw4 21:47 Raven Paul, HAIDER is Primary Nurse. ea 21:55 Triage completed. ea 21:55 Patient has correct armband on for positive identification. Bed in low position. Call ea light in reach. 21:56 Arm band placed on right wrist. Patient placed in an exam room, on a stretcher, on ea pulse oximetry. 21:58 XRAY Chest (1 view) In Process Unspecified. EDMS 22:15 Inserted saline lock: 22 gauge in right antecubital area, using aseptic technique. ea 23:22 CT Chest For PE Angio In Process Unspecified. EDMS 06/20 00:54 Atul Suarez MD is Hospitalizing Provider. tw4 01:17 No provider procedures requiring assistance completed. ea 01:20 Patient admitted, IV remains in place. ea 01:32 Head Brain Wo Cont In Process Unspecified. EDMS Administered Medications: 06/19 21:45 Drug: Propofol 5 mcg/kg/min Route: IV; Rate: calculated rate; Site: left forearm; 06/20 00:05 Follow up: Response: No adverse reaction; IV Status: Order to discontinue infusion ea 06/19 23:35 Drug: Versed 4 mg Route: IVP; Site: left antecubital; 23:50 Follow up: Response: No adverse reaction ea Outcome: 06/20 00:55 Decision to Hospitalize by Provider. tw4 01:17 Instructed on the need for admit, Demonstrated understanding of instructions. ea 06:47 Admitted to ER Hold. Please see [facility] for further documentation. ea 06:47 Condition: stable 13:24 Patient left the ED. Signatures: Dispatcher [employer] EDNusrat Pitt RN RN sv Baxter, Heather, RN RN Raven Paul RN RN ea Wadley, Terrence, MD MD [facility] Adia Carrillo 2 Anahi Coffey RN RN Corrections: (The following items were deleted from the chart) 01:18 06/19 23:37 Respiratory: [facility] 06/20 07:14 06:30 BP 127 / 67; Pulse 83bpm; Resp 83bpm; Pulse Ox 99% RA; [facility] 12:56 06:30 BP 127 / 67; Pulse 18bpm; Resp 83bpm; Pulse Ox 99% RA; [facility]
[2019-06-21] MEDS ORDERED: ONDANSETRON 4 MG/2 ML VIAL IV PRN (02:30)
[2019-06-21] MEDS ORDERED: ACETAMINOPHEN 500 MG TAB PO PRN (02:30)
[2019-06-21] MEDS ORDERED: PANTOPRAZOLE 40 MG INJ IVP ONE (02:36)
[2019-06-21] MEDS ORDERED: SODIUM CHLORIDE 0.9% 10ML INJ IV PRN (02:36)
[2019-06-21] MEDS: NA CHLORIDE 0.9% 1,000 ML IV SCH ×3 (03:00→14:10)
[2019-06-21] MEDS: Levofloxacin500mg IV 500 MG/100 ML BAG IV SCH (04:00)
[2019-06-21] MEDS ORDERED: PIPER/TAZO/NS 3.375gm 3.375 GM/100 ML BAG ONE (04:55)
[2019-06-21] MEDS ORDERED: PANTOPRAZOLE 40 MG INJ ONE (04:55)
--- NOTE | 2019-06-21 05:00 | P.HP ---
Certification for Inpatient Patient admitted to: Inpatient With expected LOS: >2 Midnights Patient will require the following post-hospital care: None Practitioner: I am a practitioner with admitting privileges, knowledge of patient current condition, hospital course, and medical plan of care. Services: Services provided to patient in accordance with Admission requirements found in Title 42 Section 412.3 of the Code of Federal Regulations Patient History Date of Service: 06/21/19 Reason for admission: Respiratory distress/respiratory failure History of Present Illness: Patient is a 58-year-old female who was at home with her watching television any eating dinner. She feels like she started choking after having some reflux. She was unresponsive. EMS arrived and she was intubated. She was evaluated in the ER and because her ABGs were good and she was responding patient was extubated shortly after arriving into the emergency room. She had a CT scan that did reveal bibasilar atelectasis versus pneumonia. Patient was admitted to the hospital for further evaluation. She has been following up with Gastroenterology and her an ENT physician. She was told by ENT she may benefit from Botox injection as she was diagnosed with dysphagia. The patient is not exactly sure where the swallowing difficulty is arising, but she was advised after extensive workup that this may benefit her. She has had a hiatal hernia repair with fundoplication in the past. This may also be the cause of her dysphagia. She has also been following up with a GI doctor. She has been told she has a upper GI polyp, and she would need an ERCP to evaluate. She has a history of pancreatitis. Allergies hydrocodone Adverse Reaction (Intermediate, Verified 08/02/16 02:57) affects stomach codeine [From Tylenol-Codeine #3] Adverse Reaction (Verified 08/02/16 02:57) Itching/Hives/Rash Home Medications: Atorvastatin Calcium 20 mg PO BEDTIME 04/10/16 Insulin Glargine,Hum.rec.anlog [Lantus] 35 units SQ DAILY 04/10/16 Lisinopril [Zestril] 10 mg PO DAILY 07/11/16 Dicyclomine [Bentyl*] 20 mg PO Q6H PRN 09/05/17 Insulin Glargine,Hum.rec.anlog [Lantus Solostar] 40 units SQ BEDTIME 12/28/17 Lubiprostone [Amitiza] 8 mcg PO DAILY 12/28/17 Lipase/Protease/Amylase [Ta Bella 36,000 Units Capsule] 1 cap PO SNACKS Lipase/Protease/Amylase [Ta Bella 36,000 Units Capsule] 2 cap PO TIDWM 10/14/18 Ciprofloxacin HCl [Cipro 500 MG Tablet] 500 mg PO BID #14 tab 10/16/18 Metronidazole [Flagyl] 500 mg PO Q6HR #28 capsule 10/16/18 - Past Medical/Surgical History Diabetic: Yes -: HTN -: CHRONIC LOW BACK PAIN -: IDDM -: TIA -: Angina -: Pancreatitis -: TIA -: CARDIAC CATH -: HYSTERECTOMY -: CHOLECYSTECTOMY - Family History Mother Medical History: Heart disease, Hypertension, Diabetes, Stroke Father Medical History: Heart disease, Hypertension, Lung disease, Diabetes, Stroke, Other (see notes) Notes: TB,COPD - Social History Smoking Status: Former smoker Alcohol use: Yes CD- Drugs: No Caffeine use: Yes Review of Systems 10-point ROS is otherwise unremarkable Physical Examination - Vital Signs Temperature: 98.9 F Blood Pressure: 150/80 Pulse: 86 Respirations: 18 Pulse Ox (%): 95 - Physical Exam General: Alert, In no apparent distress, Oriented x3 HEENT: Atraumatic, PERRLA, Mucous membr. moist/pink, EOMI, Sclerae nonicteric Neck: Supple, 2+ carotid pulse no bruit, No LAD, Without JVD or thyroid abnormality Respiratory: Diminished, Crackles/rales Cardiovascular: Regular rate/rhythm, Normal S1 S2, No murmurs Gastrointestinal: Normal bowel sounds, Soft and benign, Non-distended, No tenderness Musculoskeletal: No clubbing, No swelling, No tenderness Integumentary: No rashes Neurological: Normal gait, Normal speech, Normal strength at 5/5 x4 extr, Normal tone, Sensation intact, Cranial nerves 3-12 intact, Normal affect Lymphatics: No axilla or inguinal lymphadenopathy - Studies Laboratory Data (last 24 hrs) 06/20/19 21:45: PT 11.2, INR 0.95 06/20/19 21:45: WBC 11.0 H, Hgb 14.0, Hct 40.8, Plt Count 295 06/20/19 21:45: Sodium 136, Potassium 4.1, BUN 17, Creatinine 0.91, Glucose 225 H, Magnesium 2.0, Total Bilirubin 0.3, AST 39 H, ALT 44, Alkaline Phosphatase 168 H Assessment & Plan - Problems (Diagnosis) (1) Respiratory distress Current Visit: Yes Status: Acute (2) Encounter for intubation Current Visit: Yes Status: Acute (3) Dysphagia Current Visit: Yes Status: Acute (4) Chronic pancreatitis Current Visit: Yes Status: Acute (5) History of hiatal hernia Current Visit: Yes Status: Acute (6) Diabetes mellitus Onset Date: 04/11/16 Current Visit: No Status: Acute Qualifiers: Diabetes mellitus type: type 2 (7) Hypertension Onset Date: 04/11/16 Current Visit: No Status: Acute Qualifiers: Hypertension type: essential hypertension Qualified Code(s): I10 - Essential (primary) hypertension - Plan 1. Continue with IV antibiotics 2. Awaiting culture 3. Repeat chest x-ray 4. CT of the chest shows by basilar atelectasis versus pneumonia 5. ENT and Pulmonary consultation 6. Continue with nebs as needed 7. O2 per protocol 8. Continue with gentle hydration 9. Repeat labs including CBC and renal function in a.m. 10. GI and DVT prophylaxis Discharge Plan: Home Plan to discharge in: Greater than 2 days - Advance Directives Does patient have a Living Will: No Does patient have a Durable POA for Healthcare: No - Code Status/Comfort Care Code Status Assessed: Yes Code Status: Full Code Critical Care: No Time Spent Managing PTS Care (In Minutes): 45
[2019-06-21] MEDS ORDERED: Levofloxacin500mg IV 500 MG/100 ML BAG IV ONE (05:04)
[2019-06-21] MEDS ORDERED: PIPER/TAZO/NS 3.375gm 3.375 GM/100 ML BAG IVPB SCH (06:00)
--- NOTE | 2019-06-21 08:28 | EKG ---
Test Date: 2019-06-20 Test Time: 21:39:36 City Councilman: MG MEASUREMENT RESULTS: Intervals: Rate: 113 ME: 152 QRSD: 78 QT: 320 QTc: 438 Bliss: P: 47 ME: 152 QRS: 11 T: 66 INTERPRETIVE STATEMENTS: Sinus tachycardia Otherwise normal ECG Compared to ECG 10/13/2018 19:52:48 Sinus rhythm no longer present T-wave abnormality no longer present Electronically Signed On 06-21-19 08:27:46 CDT by Tj Castro
[2019-06-21] MEDS ORDERED: ACETAMINOPHEN 500 MG TAB ONE ×2 (08:36→08:41)
[2019-06-21] MEDS: PANTOPRAZOLE 40 MG INJ IVP SCH ×2 (09:00→20:38)
[2019-06-21] MEDS: ENOXAPARIN 40 MG/0.4 ML SQ SCH (09:00)
--- NOTE | 2019-06-21 09:42 | RAD REPORT ---
EXAM DESCRIPTION: RAD - Chest Single View - 06/20/2019 9:58 pm CLINICAL HISTORY: DYSPNEA, most in a patient chest film, hypertension COMPARISON: Portable October 2018 TECHNIQUE: AP portable chest image was obtained 06/20/2019 9:58 pm . FINDINGS: Lung volumes are low. Endotracheal tube in place in good position. Tip is mid aortic arch level. Heart, vasculature and lung markings are all accentuated by the very low lung volumes. A signi ficant amount of pulmonary edema, failure or volume overload not suspected. No focal infiltrate seen. No measurable pleural effusion and no pneumothorax. No acute bony abnormality seen. No acute aortic findings suspected. IMPRESSION: Endotracheal tube in good position. No significant failure, volume overload or focal pneumonia changes. Lung parenchymal assessment is li mited due to low lung volume.
[2019-06-21 11:03] VITALS: BMI 28.3
[2019-06-21] MEDS ORDERED: DICYCLOMINE HCL 10 MG CAP PO PRN (14:53)
[2019-06-21] MEDS: PIPER/TAZO/NS 3.375gm 3.375 GM/100 ML BAG IVPB SCH (14:55)
[2019-06-21] MEDS: SUCRALFATE 1 GM TABLET PO SCH ×2 (16:48→20:32)
[2019-06-21] MEDS: Lipase/Protease/Amylase [Creon Dr 36,000 Units Capsule] PO SCH ×2 (16:48→20:33)
[2019-06-21] MEDS ORDERED: LIPASE PO SCH (20:00)
[2019-06-21] MEDS ORDERED: AMYLASE PO SCH (20:00)
[2019-06-21] MEDS ORDERED: PROTEASE PO SCH (20:00)
[2019-06-21] MEDS ORDERED: LIPASE/PROTEASE/AMYLASE CAP PO SCH (20:00)
[2019-06-21] MEDS: ATORVASTATIN 20 MG TAB PO SCH (20:32)
[2019-06-21] MEDS: ALPRAZOLAM 0.25 MG TABLET PO PRN (20:32)
[2019-06-21] MEDS: INSULIN GLARGINE 100 UNITS/ML SQ SCH (20:38)
[2019-06-21] MEDS ORDERED: INSULIN GLARGINE HUM REC ANLOG 40 UNIT SQ SCH (21:00)
[2019-06-22] MEDS: PIPER/TAZO/NS 3.375gm 3.375 GM/100 ML BAG IVPB SCH ×3 (00:25→17:04)
[2019-06-22] MEDS: NA CHLORIDE 0.9% 1,000 ML IV SCH ×2 (03:58→19:00)
[2019-06-22 06:54] LABS: Absolute Lymphocytes (CBC) 2.1 K/uL (0.7-4.9); Basophils % 0.6 % (0-1.3); Hematocrit 38.5 % (36.0-45.0); Lymphocytes % 25.8 % (15.3-44.8); MPV 7.8 fL (7.6-11.3)
[2019-06-22 07:19] LABS: Albumin 2.8 g/dL (3.4-5.0); Bilirubin Total 0.3 mg/dL (0.2-1.0); Magnesium 2.2 mg/dL (1.8-2.4); Potassium 3.8 mmol/L (3.5-5.1); Protein, Total 6.8 g/dL (6.4-8.2)
[2019-06-22] MEDS: PANTOPRAZOLE 40 MG INJ IVP SCH ×2 (09:00→21:36)
[2019-06-22] MEDS: ENOXAPARIN 40 MG/0.4 ML SQ SCH (09:02)
[2019-06-22] MEDS: SUCRALFATE 1 GM TABLET PO SCH ×4 (09:02→21:31)
[2019-06-22] MEDS: PANTOPRAZOLE 40MG TABLET PO SCH (09:02)
[2019-06-22] MEDS: Levofloxacin500mg IV 500 MG/100 ML BAG IV SCH (09:03)
[2019-06-22] MEDS: INSULIN GLARGINE 100 UNITS/ML SQ SCH ×2 (09:03→21:30)
[2019-06-22] MEDS: Lipase/Protease/Amylase [Creon Dr 36,000 Units Capsule] PO SCH ×5 (09:04→21:32)
[2019-06-22 13:09] LABS: Amylase Level 33 U/L (25-115); Lipase 116 U/L (73-393)
--- NOTE | 2019-06-22 17:15 | PN ---
Subjective: Currently, patient lying in bed. She looks comfortable. She is able to tolerate her li quid diet, but she will aspirate every time she tried to eat anything at all. She is waiting for ENT to see her. Objective: Vital Signs: Blood pressure 110/53, respiratory rate 17, pulse 84, temperature 98. General: Patient is alert and oriented x3. Does not look in any distress. She is hoarse when she t alks. HEENT: Atraumatic. Normocephalic. PERRLA. EOMI. Oral mucosa is moist. Neck: Supple. No JVD. No bruit. Chest: Clear to auscultation. Good air entry. Heart: Regular rate and rhythm. S1, S2 normal. No gallop or murmur. Abdomen: Soft, nontender. No masses. No hepatosplenomegaly. Extremities: No clubbing, cyanosis, or edema. No calf tenderness. Laboratory Data: Today, CBC within normal. Chemistry within normal. GFR 81, glucose 163. Assessment And Plan: 1.Respiratory distress secondary to questionable dysphagia versus aspiration. The patient breathing fine on room air. A CT of the chest did not show any evidence of aspiration, may be questionable, b ut patient is not having fever or leukocytosis, so we will continue to observe her and she is current ly on IV antibiotic with Zosyn, which probably can switch tomorrow to oral just because of the questi onable infiltrate on the CAT scan to finish course of 7 days. 2.Laryngeal edema. Patient being followed by Dr. Burrows. Consult with ENT pending. Patient will need Botox and she continued to have significant hoarseness. I think she will need ENT eval before d ischarge. 3.History of chronic pancreatitis. Patient is scheduled to have MRCP as outpatient. There is no GI Service, so we will not consult anybody. 4.I will check her amylase, lipase today. 5.Hypertension, well controlled. Continue home medication. 6.Diabetes mellitus, well controlled in the range of 110 to 200. 7.Continue home medication with Lantus. 8.Deep vein thrombosis prophylaxis, on Lovenox. 9.Discharge plan will be formulated after patient evaluated by ENT and see what procedure needed. ANGELLA/BABATUNDE Voice ID: [id number] Report ID: [id number]
[2019-06-22] MEDS: ATORVASTATIN 20 MG TAB PO SCH (21:29)
[2019-06-22] MEDS: ALPRAZOLAM 0.25 MG TABLET PO PRN (21:36)
[2019-06-23] MEDS: NA CHLORIDE 0.9% 1,000 ML IV SCH ×2 (01:43→05:00)
[2019-06-23] MEDS: PIPER/TAZO/NS 3.375gm 3.375 GM/100 ML BAG IVPB SCH ×2 (01:43→08:00)
--- NOTE | 2019-06-23 06:53 | P.CNS ---
Date of Consult: 06/23/19 This patient was seen for dysphagia and hoarseness in my outpatient clinic on Jun 05. Given that, I do not have additional intervention to offer at this time. The following is documentation from that visit, included here for communication with the hopsitalist team: Last seen about 1.5 years ago by Ms. Cortez, [employer] HELPER for voice, throat and swallowing problems. She underwent FOL at that time with some LPR findings and had MBS and was pending surgery with Dr Kimball for repair of hiatal hernia. She underwent repair in 2017 - no problems with surgery or recovery. In November 2018 she had a partial colectomy due to diverticulitis. She was diagnosis with [facility] and recently has another EGD and found to have polyps in the stomach and is pending some additional testing and possible removal of polyps or possible ERCP to evaluation for recurrent pancreatitis and upper abdominal pain. She continues to have sensation of a "bubble" in her throat and trouble swallowing - she has to limit foods to avocado, banana, streamed/soft vegetables. She has limited and eliminated red meat for the GI issues. She takes Tramadol in the past for the severity of the abd pain. She was recommended to come for FU with me for the voice, possibly for isaiah-op clearance regarding throat issues. She continues to have fluctuations in her voice - she will have some good days and bad days - today her voice is essentially at her new baseline and is at it's worst today. Her PE and flexible laryngoscopy exam at that time was unremarkable. 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 I previous spoke to and shared images with her GI in [place], Dr Vinnie Shea. He is planning for EGD and is able and willing to perform botox injection during that procedure to treat this issue and address the gastric issues concurrently to avoid the need for multiple procedures in multiple locations. She had an appointment scheduled/pending at the time of my evaluation of her.
[2019-06-23] MEDS ORDERED: POTASSIUM 25 MEQ EFFERV TAB PO ONE (07:02)
[2019-06-23] MEDS: ENOXAPARIN 40 MG/0.4 ML SQ SCH (07:51)
[2019-06-23] MEDS: SUCRALFATE 1 GM TABLET PO SCH ×2 (07:51→11:14)
[2019-06-23] MEDS: Lipase/Protease/Amylase [Creon Dr 36,000 Units Capsule] PO SCH ×3 (07:51→11:15)
[2019-06-23] MEDS: PANTOPRAZOLE 40MG TABLET PO SCH (07:51)
[2019-06-23] MEDS: PANTOPRAZOLE 40 MG INJ IVP SCH (07:52)
[2019-06-23] MEDS: Levofloxacin500mg IV 500 MG/100 ML BAG IV SCH (07:52)
[2019-06-23 07:59] VITALS: O2SAT 97
[2019-06-23] MEDS: INSULIN GLARGINE 100 UNITS/ML SQ SCH (09:30)
--- NOTE | 2019-06-23 10:16 | RAD REPORT ---
EXAM DESCRIPTION: CT - Chest For Pe Angio - 06/21/2019 5:37 am CLINICAL HISTORY: 58-year-old female with chest pain. COMPARISON: 07/11/2016. EXAM DESCRIPTION: CT angiography of the pulmonary arteries was performed following intravenous admin istration of contrast. Coronal and bilateral oblique maximum intensity projections (MIPS) were create d. This exam was performed according to our departmental dose optimization program which includes use of automated exposure control, adjustment of the mA and/or kV according to patient size and/or use o f iterative reconstruction technique. FINDINGS: Chest: Endotracheal tube terminates above the level of the noa. Enteric tube terminates off the [id number] of the examination, within the gastric body. Patulous appearance of the esopha leslie with secretions may be secondary to esophageal dysmotility or reflux. Motion limited evaluation through the lungs reveals bilateral basilar dependent opacification raising the concern for bilateral consolidation/infectious process versus subsegmental atelectasis. No pleur al effusion or pneumothorax. There is minimal dependent basilar atelectasis and scarring. The tracheo bronchial airways are patent. No significant mediastinal or axillary lymphadenopathy by CT measuremen t criteria. Limited evaluation of the upper abdomen shows no acute intra-abdominal abnormalities. The osseous structures reveal degenerative change. Straightening appearance of multilevel vertebrae o f the thoracic spine with the possibility of multifocal hemangiomata. CT angiography: Diagnostic CT angiography of the pulmonary arteries without intraluminal filling defe ct noted to suggest pulmonary arterial embolus. IMPRESSION: 1. Diagnostic pulmonary angiography without findings to suggest pulmonary arterial embol us. 2. Motion limited evaluation through the lungs reveals bilateral basilar dependent opacification rais ing the concern for bilateral consolidation/infectious process versus subsegmental atelectasis. Electronically signed by: Hortensia Arreola MD 06/20/2019 11:33 PM CDT Due to temporary technical issues with the PACS/Fluency reporting system, reports are being signed by the in house radiologist as a courtesy to ensure prompt reporting. The interpreting radiologist is f keithly responsible for the content of the report.
--- NOTE | 2019-06-23 10:17 | RAD REPORT ---
EXAM DESCRIPTION: CT - Head Brain Wo Cont - 06/21/2019 5:32 am CLINICAL HISTORY: AMS COMPARISON: None Available. TECHNIQUE: Multiple helical axial tomographic images were obtained of the head without intravenous c ontrast. This exam was performed according to our departmental dose-optimization program, which inclu momo automated exposure control, adjustment of the mA and/or kV according to patient size and/or use o f iterative reconstruction technique. FINDINGS: Mild generalized brain volume loss is demonstrated. There is no acute intracranial hemorrh age. No mass. No midline shift. No ventriculomegaly. Scruggs-white matter differentiation is maintained. There is faint opacification of the intracranial vasculature likely related to prior contrast admini stration. Paranasal sinuses are clear. Mastoid air cells and middle ear spaces are clear. Changes of lens repla cement noted. Osseous structures are unremarkable. Surrounding soft tissues are unremarkable. IMPRESSION: No acute intracranial process. Electronically signed by: Kirk Hayden MD 06/21/2019 1:54 AM CDT Due to temporary technical issues with the PACS/Fluency reporting system, reports are being signed by the in house radiologist as a courtesy to ensure prompt reporting. The interpreting radiologist is f ully responsible for the content of the report.
--- NOTE | 2019-06-23 12:39 | P.DS ---
Admission Date: 06/21/19 Discharge Date: 06/23/19 Primary Care Provider: Dr. Mosley(We are covering him) Disposition: ROUTINE DISCHARGE Discharge Condition: GOOD Reason for Admission: Respiratory distress/respiratory failure Consultations: ENT-Dr. Perez Procedures: Ct Chest: FINDINGS: Chest: Endotracheal tube terminates above the level of the noa. Enteric tube terminates off the [id number] of the examination, within the gastric body. Patulous appearance of the esophagus with secretions may be secondary to esophageal dysmotility or reflux. Motion limited evaluation through the lungs reveals bilateral basilar dependent opacification raising the concern for bilateral consolidation/infectious process versus subsegmental atelectasis. No pleural effusion or pneumothorax. There is minimal dependent basilar atelectasis and scarring. The tracheobronchial airways are patent. No significant mediastinal or axillary lymphadenopathy by CT measurement criteria. Limited evaluation of the upper abdomen shows no acute intra-abdominal abnormalities. The osseous structures reveal degenerative change. Straightening appearance of multilevel vertebrae of the thoracic spine with the possibility of multifocal hemangiomata. CT angiography: Diagnostic CT angiography of the pulmonary arteries without intraluminal filling defect noted to suggest pulmonary arterial embolus. IMPRESSION: 1. Diagnostic pulmonary angiography without findings to suggest pulmonary arterial embolus. 2. Motion limited evaluation through the lungs reveals bilateral basilar dependent opacification raising the concern for bilateral consolidation/ infectious process versus subsegmental atelectasis. Medical Problem List: Acute Respiratory distress secondary to aspiration pneumonia with history of the cricopharyngeal muscle spasm History of chronic pancreatitis Hypertension Diabetes mellitus type 2, insulin-dependent GERD with hiatal hernia Brief History of Present Illness: 58-year-old female presented to emergency room with acute respiratory distress. This was after she was eating. Patient was seen in the ER. The patient required intubation. Patient admitted for further evaluation and treatment. Hospital Course: Patient presented with acute respiratory distress Patient required intubation. Patient was extubated. Patient was treated for possible aspiration pneumonia. Patient has improved. Patient with history of cricopharyngeal muscle spasm. Case discussed at length with ENT who has seen the patient. Patient in process to see GI in [place] by Dr. Ruano. There is plan for EGD to perform Botox injection. At discharge she is without significant chest pain or shortness of breath. Patient currently on a clear to full liquid diet. At discharge patient will continue with Augmentin suspension 5 mL twice daily for 7 days. Recommend follow up with ENT as directed. Patient will follow up with GI to further address her GI related issues. Recommend recheck chest x-ray in 2-4 weeks to monitor resolution. No requirement for home oxygen. Patient with history of GERD and hiatal hernia. Patient in process to follow up with GI. Patient will have EGD soon. Patient may also require a ERCP in the future. Patient with underlying chronic pancreatitis. This has remained stable. At discharge she will continue with Creon, Carafate, Bentyl and Protonix.. Patient with diabetes mellitus type 2. At discharge she will continue with her regimen of Lantus 35 units in the morning and 40 units at bedtime. Recommend follow up with her PCP to further monitor and address. Vital Signs/Physical Exam: Temp Pulse Resp BP Pulse Ox 97.3 F 66 18 128/66 96 06/23/19 08:00 06/23/19 08:00 06/23/19 08:00 06/23/19 08:00 06/23/19 08:00 General: Alert, In no apparent distress, Oriented x3, Cooperative HEENT: Atraumatic Neck: Supple Respiratory: Clear to auscultation bilaterally, Normal air movement Cardiovascular: Normal pulses, Regular rate/rhythm Gastrointestinal: Normal bowel sounds, Soft and benign, Non-distended Neurological: Normal speech, Normal strength at 5/5 x4 extr, Normal tone, Normal affect Laboratory Data at Discharge: WBC 8.2 K/uL (4.3-10.9) D 06/22/19 06:17 Hgb 13.1 g/dL (12.0-15.0) 06/22/19 06:17 Hct 38.5 % (36.0-45.0) 06/22/19 06:17 Plt Count 236 K/uL (152-406) 06/22/19 06:17 PT 11.2 SECONDS (9.5-12.5) 06/20/19 21:45 INR 0.95 06/20/19 21:45 Sodium 139 mmol/L (136-145) 06/22/19 06:17 Potassium 3.8 mmol/L (3.5-5.1) 06/22/19 06:17 BUN 12 mg/dL (7-18) 06/22/19 06:17 Creatinine 0.73 mg/dL (0.55-1.3) 06/22/19 06:17 Glucose 163 mg/dL (74-106) H 06/22/19 06:17 Phosphorus 3.0 mg/dL (2.5-4.9) 06/22/19 06:17 Magnesium 2.2 mg/dL (1.8-2.4) 06/22/19 06:17 Total Bilirubin 0.3 mg/dL (0.2-1.0) 06/22/19 06:17 AST 29 U/L (15-37) 06/22/19 06:17 ALT 30 U/L (12-78) 06/22/19 06:17 Alkaline Phosphatase 115 U/L (45-117) 06/22/19 06:17 Amylase 33 U/L (25-115) 06/22/19 06:17 Lipase 116 U/L (73-393) 06/22/19 06:17 Home Medications: Atorvastatin Calcium 40 mg PO BEDTIME 04/10/16 Insulin Glargine,Hum.rec.anlog [Lantus] 35 units SQ DAILY 04/10/16 Dicyclomine [Bentyl*] 20 mg PO Q6H PRN 09/05/17 Insulin Glargine,Hum.rec.anlog [Lantus Solostar] 40 units SQ BEDTIME 12/28/17 Lipase/Protease/Amylase [Ta Bella 36,000 Units Capsule] 1 cap PO SNACKS Lipase/Protease/Amylase [Ta Bella 36,000 Units Capsule] 2 cap PO TIDWM 10/14/18 Pantoprazole [Protonix Tab*] 40 mg PO BID 06/21/19 Sucralfate [Carafate*] 1 gm PO QID 06/21/19 Amox Tr/Potassium Clavulanate [Augmentin 400-57 mg/5 ml] 5 ml PO BID #1 bottle 06/23/19 New Medications: Amox Tr/Potassium Clavulanate [Augmentin 400-57 mg/5 ml] 5 ml PO BID #1 bottle Patient Discharge Instructions: 1. Recommend follow up with PCP in 1 week to follow up this hospitalization. 2. Patient presented with acute respiratory distress Patient required intubation. Patient was extubated. Patient was treated for possible aspiration pneumonia. Patient has improved. Patient with history of cricopharyngeal muscle spasm. Case discussed at length with ENT who has seen the patient. Patient in process to see GI in [place] by Dr. Ruano. There is plan for EGD to perform Botox injection. At discharge she is without significant chest pain or shortness of breath. Patient currently on a clear to full liquid diet. At discharge patient will continue with Augmentin suspension 5 mL twice daily for 7 days. Recommend follow up with ENT as directed. Patient will follow up with GI to further address her GI related issues. Recommend recheck chest x-ray in 2-4 weeks to monitor resolution. No requirement for home oxygen. 3. Patient with history of GERD and hiatal hernia. Patient in process to follow up with GI. Patient will have EGD soon. Patient may also require a ERCP in the future. Patient with underlying chronic pancreatitis. This has remained stable. At discharge she will continue with Creon, Carafate, Bentyl and Protonix.. 4. Patient with diabetes mellitus type 2. At discharge she will continue with her regimen of Lantus 35 units in the morning and 40 units at bedtime. Recommend follow up with her PCP to further monitor and address. Activity: Ad rolando Time spent managing pt's care (in minutes): 55
[2019-06-23 13:10] VITALS: BP 131/74; TEMP 97.6
== END 2019-06-23 13:35 | disposition home or self-care (01) | DRG 208 ==
LOC: ER 21:32 → ERHOLD 06-21 02:31 → 2ND 06-21 13:09
PROVIDERS: ADMIT Hospitalist; ATTEND Hospitalist
PROC: 0BH17EZ Insertion of Endotracheal Airway into Trachea, Via Natural or Artificial Opening (ICD-10-PCS; principal; 2019-06-20)
PROC: 5A1935Z Respiratory Ventilation, Less than 24 Consecutive Hours (ICD-10-PCS; 2019-06-20)
DX: J69.0 Pneumonitis due to inhalation of food and vomit (principal); J96.01 Acute respiratory failure with hypoxia; K86.1 Other chronic pancreatitis; I10 Essential (primary) hypertension; E11.9 Type 2 diabetes mellitus without complications; K21.9 Gastro-esophageal reflux disease without esophagitis; K44.9 Diaphragmatic hernia without obstruction or gangrene; Z90.49 Acquired absence of other specified parts of digestive tract; Z86.73 Personal history of transient ischemic attack (TIA), and cerebral infarction without residual deficits
CPT/HCPCS: 36415; 70450; 71045; 71275; 80048; 80053; 80076; 81003; 82150; 82805; 82947; 83690; 83735; 83880; 84100; 84484; 85025; 85610; 93005; 94002; 96365; 96366; 96375; 99285; C9113; J1650; J1815; J2250; J2543; J2704; J7030; Q9967

== ENCOUNTER 2019-08-31 19:38 | Emergency (ER) | payer OTHER ==
--- OUTSIDE RECORDS SUMMARY | 2019-08-31 19:40 | XMS REPORT | Clinical Summary ---
:1960 Author Organization [facility] Address [address] [place] [address] Care Team Providers Name Role Phone Berry Suero MD Primary Care Provider Allergies Active Allergy Reactions Severity Noted Date Comments Hydrocodone 11/01/2018 Medications Medication Sig Dispensed Refills Start Date End Date Status SUPREP BOWEL PREP KIT Take 2 Bottles 354 mL 0 11/04/2018 17.5-3.13-1.6 gram (354 mL total) recon soln by mouth once for 1 dose. Take as directed by physician ciprofloxacin (CIPRO) Take 1 tablet 10 tablet 0 11/06/201808/2018 500 MG tablet (500 mg total) by mouth 2 (two) times a day for 5 days. metroNIDAZOLE Take 1 tablet 15 tablet 0 11/06/2018 11/11/2018 (FLAGYL) 500 MG (500 mg total) tablet by mouth 3 (three) times a day for 5 days. 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 (Primary Dx) 11/26/2018 Office Visit General Surgery Vale Betito Diverticulit is of large MD Fredy intestine witho ut perforation or abscess without bleedin g (Primary Dx) 11/14/2018 Orders Only General Surgery Betito Collazo MD 11/11/2018 Documentation General Surgery Fadi Silva MD 11/06/2018 Office Visit General Surgery Collazo, Betito Diverticulit is of large MD Fredy intestine witho ut perforation or abscess without bleedin g (Primary Dx) 11/06/2018 Orders Only General Surgery Selena Pinzon NP 11/04/2018 Orders Only General Surgery Betito Collazo MD 11/04/2018 Orders Only General Surgery Betito Collazo MD 11/01/2018 Office Visit General Surgery Betito Collazo Diverticulit is of large MD Fredy intestine witho ut perforation or abscess without bleedin g (Primary Dx) after 08/30/2018 Family History Medical History Relation Name Comments Diabetes Father Hypertension Father Diabetes Mother Heart disease Mother Hypertension Mother Relation Name Status Comments Father Mother Social History Tobacco Use Types Packs/Day Years Used Date Never Smoker Smokeless Tobacco: Never Used Alcohol Use Drinks/Week oz/Week Comments Never Alcohol Habits Answer Date Recorded How often do you have a drink containing alcohol? Never 11/01/2018 How many drinks containing alcohol do you have on a typical Not asked day when you are drinking? How often do you have six or more drinks on one occasion? No t asked Sex Assigned at Date Recorded Not on file Job Start Date Occupation Industry Not on file Not on file Not on file Travel History Travel Start Travel End No recent travel history available. Last Filed Vital Signs Vital Sign Reading Time Taken Comments Blood Pressure 143/74 11/26/2018 10:11 AM CDT Pulse 67 11/26/2018 10:11 AM CDT Temperature 36.6 C (97.9 F) 11/26/2018 10:11 AM CDT Respiratory Rate - - Oxygen Saturation - - Inhaled Oxygen Concentration - - Weight 72.6 kg (160 lb) 11/01/2018 1:27 PM CDT Height 157.5 cm (5' 2") 11/01/2018 1:27 PM CDT Body Mass Index 29.26 11/01/2018 1:27 PM CDT Plan of Treatment Health Maintenance Due Date Last Done Comments DIABETIC RETINAL EYE EXAM 1960 DIABETIC FOOT EXAM 1968 URINE MICROALBUMIN 1968 CERVICAL CANCER SCREENING 09/07/1979 BREAST CANCER SCREENING 2008 COLONOSCOPY SCREENING 2008 SHINGLES VACCINES (#1) 2008 INFLUENZA VACCINE 11/08/2019 Procedures Procedure Name Priority Date/Time Associated Diagnosis Comme nts SURGICAL PATHOLOGY REQUEST Routine 11/11/2018 SURGICAL PATHOLOGY REQUEST Routine 11/11/2018 after 08/30/2018 Results Surgical pathology request (11/11/2018)Only the most recent of2 resultswithin the time period is included. Specimen Tissue Narrative Performed At This result has an attachment that is no t available. 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
--- OUTSIDE RECORDS SUMMARY | 2019-08-31 19:41 | XMS REPORT ---
:1960 Author Organization [facility] t Address [address] [place] [address] Care Team Providers Name Role Phone Pio EPPS, [place] Primary [facility] Physician RENY OGLESBY Attending Clinician Unavailable Fredy Collazo MD Attending Clinician Nupur Pinzon NP Attending Clinician Davide Silva MD Attending Clinician MARISELA Attending Clinician Unavailable FREDERICK Attending Clinician Unavailable RENY OGLESBY Admitting Clinician Unavailable Payers Payer Name Policy Policy Number Effective Expiration Source Type Date Date MEDICAREMEDICARE PART xxxxxxxxxxx 2001 Rashid Schroeder AND 00:00:00 [facility] B[place]xxx/04/2001[place] [facility] [place] Condition Condition Condition Status Onset Resolution Last Treating Co mments Source Name Details Category Date Date Treatment Clinician Date Hyperlipid Hyperlipid Problem Active [facility] [place] [facility] Hypertensi Hypertensi Problem Active [facility] [place] [facility] Diabetes Diabetes Problem Active [facility] [place] [facility] Follow up Follow up Problem Active [facility] [place] [facility] Allergies, Adverse Reactions, Alerts Allergy Allergy Status Severity Reaction(s) Onset Inactive Treating Comm ents Source Name Type Date Date Clinician hydrocod DA Active [facility] [place] Hydrocod Propensi Active [place] one ty to 11-01 Methodi adverse 00:00: st reaction 00 s to drug Family History Family Member Diagnosis Comments Start Date Stop Date Source Unknown Family Family history of Other Uni versity of Member diabetes mellitus [place] [facility] Unknown Family Family history of Other Uni versity of Member hypertension [place] [facility] Unknown Family Family history of Other Uni versity of Member Heart problem [place] [facility] Natural father Diabetes [place] [facility] Natural father Hypertension [place] [facility] Natural mother Diabetes [place] [facility] Natural mother Heart disease [place] [facility] Natural mother Hypertension [place] [facility] Social History Social Habit Start Date Stop Date Quantity Comments Source History [facility] Meth odist Alcohol Std Drinks History [facility] Alcohol Binge Sex Assigned At [facility] ethodist Alcohol intake 2018-12-10 2018-12-10 Lifetime [place] [facility] 00:00:00 00:00:00 non-drinker (finding) History SDOH 2018-11-01 2018-11-01 1 [place] [facility] Alcohol Frequency 00:00:00 00:00:00 Smoking Status Start Date Stop Date Source Former smoker [facility] Never smoker [facility] Medications Ordered Filled Start Stop Current Ordering Indication Dosage Frequency Signature Comments Components Source Medication Medication Date Date Medication? Clinician (SIG) Name Name ciprofloxac 2019- No 500mg Q.5D Take 1 Rashid conn in (CIPRO) 11-06 tablet Method i 500 MG 00:00: 23:59 ([address] tablet 00 :00 total) by mouth 2 (two) times a day for 5 days. metroNIDAZO 2019- No 500mg [id number] Take 1 [place] LE (FLAGYL) 11-06 [id number] tablet Methodi 500 MG 00:00: 23:59 3D ([address] tablet 00 :00 total) by mouth 3 (three) times a day for 5 days. SUPREP 2019- No 354mL Take 2 [place] BOWEL PREP 11-04 Bottles Metho di KIT 00:00: 23:59 ([address] 17.5-3.13-1 00 :00 total) by .6 gram mouth once recon soln for 1 dose. Take as directed by physician Vital Signs Vital Name Observation Time Observation Value Comments Source Systolic blood 2018-11-26 10:11:00 143 mm[Hg] Miguel A n [facility] pressure Diastolic blood 2018-11-26 10:11:00 74 mm[Hg] Delaney on [facility] pressure Heart rate 2018-11-26 10:11:00 67 /min [place] [facility] Body temperature 2018-11-26 10:11:00 36.61 Alysia [place] [facility] Body height 2018-11-01 13:27:00 157.5 cm [place] [facility] Body weight 2018-11-01 13:27:00 72.576 kg [place] [facility] BMI 2018-11-01 13:27:00 29.26 kg/m2 [place] [facility] Height 2018-05-24 10:25:00 62 [in_us] [facility] [place] [facility] Weight 2018-05-24 10:25:00 154.9 [lb_av] [facility] [place] [facility] Body Mass Index 2018-05-24 10:25:00 28.33 kg/m2 [facility] rs[facility] Calculated [place] [facility] BP Systolic 2018-04-26 10:21:00 127 mm[Hg] [facility] [place] [facility] BP Diastolic 2018-04-26 10:21:00 76 mm[Hg] [facility] [place] [facility] Height 2018-04-26 10:21:00 62 [in_us] Universi ty [facility] Physician s Weight 2018-04-26 10:21:00 155.6 [lb_av] [facility] [place] [facility] Body Mass Index 2018-04-26 10:21:00 28.46 kg/m2 Unive rsity of Calculated [place] [facility] Temperature 2018-04-26 10:21:00 97 [degF] Universi ty [facility] Physician s Heart Rate 2018-04-26 10:21:00 73 /[facility] Phys[facility] s Procedures Procedure Date / Time Performed Performing Clinician [facility] e SURGICAL PATHOLOGY 2018-11-11 00:00:00 Betito Collazo on [facility] REQUEST Plan of Care Planned Activity Planned Date Details Comments Source Future Scheduled 2019-11-08 INFLUENZA VACCINE Miguel A card [facility] Test 00:00:00 [code = INFLUENZA VACCINE] Future Scheduled 2008 BREAST CANCER [place] [facility] Test 00:00:00 SCREENING [code = BREAST CANCER SCREENING] Future Scheduled 2008 COLONOSCOPY SCREENING [place] [facility] Test 00:00:00 [code = COLONOSCOPY SCREENING] Future Scheduled 2008 SHINGLES VACCINES (#1) [place] [facility] Test 00:00:00 [code = SHINGLES VACCINES (#1)] Future Scheduled 1979-09-07 Screening for [facility] thodist Test 00:00:00 malignant neoplasm of cervix (procedure) [code = 264325892] Future Scheduled 1968 DIABETIC FOOT EXAM [place] [facility] Test 00:00:00 [code = DIABETIC FOOT EXAM] Future Scheduled 1968 URINE MICROALBUMIN [place] [facility] Test 00:00:00 [code = URINE MICROALBUMIN] Future Scheduled 1958 DIABETIC RETINAL EYE [place] [facility] Test 00:00:00 EXAM [code = DIABETIC RETINAL EYE EXAM] Encounters Start End Encounter Admission Attending Care Care Encounter Source Date/Time Date/Time Type Type Clinicians Facility Department ID 2018-05-24 2018-05-24 RAFAT [place] [id number] Univers 10:30:00 10:30:00 t; WILL, Surgery nelson ANTONIO D.O. Specialty [facility] s WILL Physicjoyce Ritter.O. ans 2018-04-26 2018-04-26 Karlos ANTONIO, RAFAT [facility] [id number] Univers 10:15:00 10:15:00 t; nelson SOLIS D.O. [place] Adrian SOLISO. ans 2018-04-19 2018-04-19 Karlos ANTONIO, RAFAT [facility] [id number] Univers 10:00:00 10:00:00 t; nelson SOLIS D.O. [place] WILL Physicjoyce CastellanoO. ans 2018-03-27 2018-03-27 Karlos ANTONIO, RAFAT [facility] [id number] Univers 10:30:00 10:30:00 t; nelson SOLIS D.OIggy [place] WILL Physicjoyce CastellanoO. ans 2018-03-22 2018-03-22 RAFAT Apodaca [facility] [id number] Univers 10:30:00 10:30:00 t; WILL, ity o f MARISELA D.O. [place] WILL, Physici D.O. ans 2018-03-06 2018-03-06 AppointRAFAT [place] [facility]TP [id number] Univers 08:30:00 08:30:00 t; CYRIL MACK M.D. i ty of [place] [facility] [place] [facility] ans 2018-02-14 2018-02-14 Appointlindsey ANTONIO, [facility] UTP [id number] Univers 08:15:00 08:15:00 t; WILL, ity o f MARISELA D.O. [place] WILL, Physici D.O. ans 2018-01-11 2018-01-11 Appointlindsey ANTONIO [facility] UTP [id number] Univers 10:30:00 10:30:00 t; WILL, ity o f MARISELA D.O. [place] WILL, Physici D.O. ans Results Test Description Test Time Test Comments Results Result [facility] e Comments TISSUE EXAM 2019-08-27 Surgical Pathology Report 09:36:00 Case: [id number] Authorizing Provider: Vinnie Oglesby Collected: 08/26/2019 12:43 PM MD Beatrice Ordering Location: [facility] Endoscopy Received: 08/26/2019 01:56 PM Services Pathologist: Isac Cummins MD Specimen: Biopsy, Gastric, gastric polyp A. STOMACH, POLYP, BIOPSY: - ANTRAL MUCOSA WITH POLYPOID FOVEOLAR HYPERPLASIA - NEGATIVE FOR HELICOBACTER PYLORI ORGANISMS BY WARTHIN STARRY STAIN - NEGATIVE FOR INTESTINAL METAPLASIA, DYSPLASIA, MALIGNANCY Signing Pathologist Direct Phone Line: [phone] y signed by Isac Cummins MD on 08/27/2019 at 9:36 [id number]: upper endoscopy, biopsyPre and postop diagnosis: acute pancreatitis A. Biopsy, gastricA. Received in formalin labeled with the patient's name, accession number and "gastric biopsy", with the additional description "gastric polyp" is one irregular winston-pink piece of mucosal-covered soft tissue measuring 0.4 x 0.3 x 0.2 cm. The specimen is submitted in toto following filtration in cassette A1. RAFA/plPerformed.The interpretation of this case included the use of immunohistochemistry or special stains.Control Slides Examined: In-house known positive controls were evaluated along with the test tissue. These control slides run alongside of the patients sample show appropriate staining. Internal positive and negative controls when available are evaluated Immunohistochemistry technical testing was performed at [facility], Pathology Laboratory where it was developed and its performance characteristics were determined. It has not been cleared or approved by the U.S. Food and Drug Administration. The FDA has determined that such clearance or approval is not necessary. The test is used for clinical purposes. It should not be regarded as investigational or for research. This laboratory is certified under the Clinical Laboratory Improvement Amendments of 1988 (CLIA-88) as qualified to perform high complexity clinical laboratory testing. POCT-GLUCOSE METER 2019-08-26 13:26:00 Test Item Value Reference Range Interpretation Comme nts POC-GLUCOSE METER ([email or web address]) 122 mg/dL 70-110 H : TESTED AT [facility] [address] [facility] (test code = 1538) [facility] [address]: Vp Clinical/Techni wendy ID = [id number] for Ilda Rodriguez POCT-GLUCOSE [id number] 11:40:00 Test Item Value Reference Range Interpretation Comments POC-GLUCOSE METER 137 mg/dL 70-110 H : [facility] ([email or web address]) (test code = TERRI Hirsch [facility], 1538) [address]: Vp Clinical/Techni wendy ID = [id number] for KATIE CANTU COLON SEGMENT RESEC.NOT [id number] 19:21:00 RUN DATE: 11/14/18 [facility] PAGE 1 RUN TIME: 810 Specimen Inquiry RUN USER: INTERFACE PATIENT: DAISY HAMMER LOC: U #: [id number] AGE/SX: 58/F ROOM: [facility] RE11/11/18REG DR: Betito Collazo MD : 56 BED: A DIS: 11/13/18 STATUS: DIS Sharla TLOC: SPEC #: [id number] RECD: 11/11/18 STATUS: SOUJer RE #: [id number] CRISTINO: 11/11/18- SUBM DR: Betito Collazo MD ENTERED: 11/11/18 SP TYPE: COLONR OTHR DR: ORDERED: LEVEL V SURGICA CODES: [id number] - COLON, NOS PROCEDURES: LEVEL V SURGICA (Incomplete) TISSUES: COLON, NOS - RECTOSIGMOID DIVERTICULITIS CLINICAL HISTORY 58 year old, diverticulitis (wpd) FINAL DIAGNOSIS Designated "rectosigmoid diverticulitis", segmental resection: - diverticular disease with peridiverticular fibrosis - intestinal rings - unremarkable CPT code(s): 23318 pkg/wpd 11/13/18 GROSS DESCRIPTION ANATOMIC SOURCE OFTISSUE (per Requisition): Rectosigmoid diverticulitis The specimen is [...] and contains unremarkable mucosa and surrounding tissue. Toolroom Attendant sections are submitted in A2. The largest [...] Specimen Inquiry RUN USER: INTERFACE SPEC #: [id number] PATIENT: DAISY HAMMER #[id number] (Continued) GROSS DESCRIPTION (Continued) 1.0 cm and containing green-brown fecal material. No discrete perforationor discoloration in those areas are noted. Toolroom Attendant sections of the intestine with the diverticula are submitted in A3 - A8. Examination of attached adipose tissue reveals no discrete lymph nodes. Toolroom Attendant sections are submitted in A9 - A16. hz/wpd 11/11/18 @ 1608 MICROSCOPIC DESCRIPTION The specimen consists of a segment of rectosigmoid colon containing numerous diverticula which extend through the muscularis into the rectosigmoid adipose tissue. Foci of fibrosis are present adjacent to the diverticula. No granulomas, dysplasia or neoplasia are identified. The intestinal rings are unremarkable. abram/wpd 11/13/18 Signed Deena Storm 11/13/181920 ENDOF REPORT [id number] 07:10:00 Test Item Value Reference Range Interpretation Comments GLUBED (test code = GLUBED) 180 mg/dL 65-110 H COMPREHENSIVE METABOLIC [id number] 05:48:00 Test Item Value Reference Range Interpretation Comments SODIUM (test code = NA) 142 mEq/L 135-145 N POTASSIUM (test code = K) 3.7 mEq/L 3.5-5.0 N CHLORIDE (test code = CL) 108 mEq/L 100-115 N CARBON DIOXIDE (test code = CO2) 29 mEq/L 22-31 N ANION GAP (test code = GAP) 8.70 10-20 L GLUCOSE (test code = GLU) 193 mg/dL 65-110 H BLOOD UREA NITROGEN (test code = 12 mg/dL 7-18 N BUN) GLOMERULAR FILTRATION RATE (test 73 ml/min >60 N code = GFR) CREATININE (test code = CREAT) 0.8 mg/dL 0.5-1.0 N TOTAL PROTEIN (test code = PROT) 5.4 gm/dL 6.3-8.2 L ALBUMIN (test code = ALB) 2.5 gm/dL 3.4-4.8 L CALCIUM (test code = CA) 7.8 mg/dL 8.4-10.2 L BILIRUBIN TOTAL (test code = 0.3 mg/dL 0.2-1.0 N BILT) SGOT/AST (test code = AST) 26 units/L 15-37 N SGPT/ALT (test code = ALT) 23 units/L 12-78 N ALKALINE PHOSPHATASE TOTAL (test 106 units/L 46-116 N code = ALKP) [id number] 05:48:00 Test Item Value Reference Range Interpretation Comments MAGNESIUM (test code = MAG) 1.8 mg/dL 1.8-2.4 N CBC W/AUTO [id number] 04:49:00 Test Item Value Reference Range Interpretation Comments WHITE BLOOD CELL (test code = WBC) 8.9 K/mm3 6.6-12.1 N RED BLOOD CELL (test code = RBC) 3.49 M/mm3 3.45-5.01 N HEMOGLOBIN (test code = HGB) 10.6 g/dL 10.7-13.9 L HEMATOCRIT (test code = HCT) 32.3 % 32.1-42.1 N MEAN CELL VOLUME (test code = MCV) 93 fL 84.1-94.8 N MEAN CELL HGB (test code = MCH) 30.4 pg 27-35 N MEAN CELL HGB CONCETRATION (test 32.8 gm/dL 32.2-34.1 N code = MCHC) RED CELL DISTRIBUTION WIDTH (test 11.9 % 12.4-16.5 L code = RDW) PLATELET COUNT (test code = PLT) 205 K/mm3 133-385 N IMMATURE PLATELET FRACTION (test 0.0 % 0.0-10.8 N code = IPF) MEAN PLATELET VOLUME (test code = 9.8 fl 9.1-12.7 N MPV) NEUTROPHIL % (test code = NT%) 70.3 % 56.5-79.4 N LYMPHOCYTE % (test code = LY%) 19.3 % 14.3-34.3 N MONOCYTE % (test code = MO%) 7.1 % 5.1-10.4 N EOSINOPHIL % (test code = EO%) 2.8 % 0.1-3.0 N BASOPHIL % (test code = BA%) 0.2 % 0.1-1.0 N NEUTROPHIL # (test code = NT#) 6.2 K/mm3 LYMPHOCYTE # (test code = LY#) 1.7 K/mm3 MONOCYTE # (test code = MO#) 0.6 K/mm3 EOSINOPHIL # (test code = EO#) 0.25 K/mm3 BASOPHIL # (test code = BA#) 0.0 K/mm3 RBC MORPHOLOGY REQUIRED (test code NORMAL NORMAL = RBCM) PLATELET MORPHOLOGY REQUIRED (test NORMAL NORMAL code = PLTMR) [id number] 21:57:00 Test Item Value Reference Range Interpretation Comments GLUBED (test code = GLUBED) 278 mg/dL 65-110 H [id number] 17:26:00 Test Item Value Reference Range Interpretation Comments GLUBED (test code = 292 mg/dL 65-110 H Hypoglyc emic Protoco GLUBED) [id number] 12:11:00 Test Item Value Reference Range Interpretation Comments GLUBED (test code = GLUBED) 131 mg/dL 65-110 H [id number] 07:23:00 Test Item Value Reference Range Interpretation Comments GLUBED (test code = GLUBED) 110 mg/dL 65-110 N CHEMISTRY 7 [id number] 05:23:00 Test Item Value Reference Range Interpretation Comments SODIUM (test code = NA) 140 mEq/L 135-145 N POTASSIUM (test code = K) 4.2 mEq/L 3.5-5.0 N CHLORIDE (test code = CL) 104 mEq/L 100-115 N CARBON DIOXIDE (test code = CO2) 26 mEq/L 22-31 N ANION GAP (test code = GAP) 13.80 10-20 N GLUCOSE (test code = GLU) 115 mg/dL 65-110 H BLOOD UREA NITROGEN (test code = 12 mg/dL 7-18 N BUN) GLOMERULAR FILTRATION RATE (test 73 ml/min >60 N code = GFR) CREATININE (test code = CREAT) 0.8 mg/dL 0.5-1.0 N CALCIUM (test code = CA) 7.8 mg/dL 8.4-10.2 L [id number] 05:23:00 Test Item Value Reference Range Interpretation Comments MAGNESIUM (test code = MAG) 1.8 mg/dL 1.8-2.4 N CBC W/AUTO [id number] 05:19:00 Test Item Value Reference Range Interpretation Comments WHITE BLOOD CELL (test code = WBC) 13.0 K/mm3 6.6-12.1 H RED BLOOD CELL (test code = RBC) 3.88 M/mm3 3.45-5.01 N HEMOGLOBIN (test code = HGB) 11.8 g/dL 10.7-13.9 N HEMATOCRIT (test code = HCT) 36.3 % 32.1-42.1 N MEAN CELL VOLUME (test code = MCV) 94 fL 84.1-94.8 N MEAN CELL HGB (test code = MCH) 30.4 pg 27-35 N MEAN CELL HGB CONCETRATION (test 32.5 gm/dL 32.2-34.1 N code = MCHC) RED CELL DISTRIBUTION WIDTH (test 11.9 % 12.4-16.5 L code = RDW) PLATELET COUNT (test code = PLT) 219 K/mm3 133-385 N MEAN PLATELET VOLUME (test code = 10.6 fl 9.1-12.7 N MPV) NEUTROPHIL % (test code = NT%) 74.0 % 56.5-79.4 N LYMPHOCYTE % (test code = LY%) 18.5 % 14.3-34.3 N MONOCYTE % (test code = MO%) 5.3 % 5.1-10.4 N EOSINOPHIL % (test code = EO%) 1.6 % 0.1-3.0 N BASOPHIL % (test code = BA%) 0.2 % 0.1-1.0 N NEUTROPHIL # (test code = NT#) 9.6 K/mm3 LYMPHOCYTE # (test code = LY#) 2.4 K/mm3 MONOCYTE # (test code = MO#) 0.7 K/mm3 EOSINOPHIL # (test code = EO#) 0.21 K/mm3 BASOPHIL # (test code = BA#) 0.0 K/mm3 RBC MORPHOLOGY REQUIRED (test code NORMAL NORMAL = RBCM) PLATELET MORPHOLOGY REQUIRED (test NORMAL NORMAL code = PLTMR) [id number] 22:07:00 Test Item Value Reference Range Interpretation Comments GLUBED (test code = GLUBED) 171 mg/dL 65-110 H [id number] 17:41:00 Test Item Value Reference Range Interpretation Comments GLUBED (test code = GLUBED) 157 mg/dL 65-110 H [id number] 13:26:00 Test Item Value Reference Range Interpretation Comments GLUBED (test code = GLUBED) 154 mg/dL 65-110 H [id number] 06:54:00 Test Item Value Reference Range Interpretation Comments GLUBED (test code = GLUBED) 143 mg/dL 65-110 H CHEMISTRY 7 [id number] 13:07:00 Test Item Value Reference Range Interpretation Comments SODIUM (test code = NA) 140 mEq/L 135-145 N POTASSIUM (test code = K) 3.8 mEq/L 3.5-5.0 N CHLORIDE (test code = CL) 102 mEq/L 100-115 N CARBON DIOXIDE (test code = CO2) 28 mEq/L 22-31 N ANION GAP (test code = GAP) 13.90 10-20 N GLUCOSE (test code = GLU) 155 mg/dL 65-110 H BLOOD UREA NITROGEN (test code = 19 mg/dL 7-18 H BUN) GLOMERULAR FILTRATION RATE (test 57 ml/min >60 L code = GFR) CREATININE (test code = CREAT) 1.0 mg/dL 0.5-1.0 N CALCIUM (test code = CA) 8.5 mg/dL 8.4-10.2 N HGB [id number] 12:51:00 Test Item Value Reference Range Interpretation Comments HEMOGLOBIN (test code = HGB) 13.6 g/dL 10.7-13.9 N HEMATOCRIT (test code = HCT) 40.3 % 32.1-42.1 N
--- OUTSIDE RECORDS SUMMARY | 2019-08-31 19:41 | XMS REPORT | Clinical Summary ---
:1960 Author Organization [facility] Address [address] [place] [address] Care Team Providers Name Role Phone Unavailable Primary Care Provider Unavailable Allergies Active Allergy Reactions Severity Noted Date Comments Hydrocodone-Acetaminophen 08/15/2019 Medications Medication Sig Dispensed Refills Start Date End Date Status atorvastatin Take 40 mg by mouth 0 Active (LIPITOR) 40 MG daily. tablet dicyclomine Take 20 mg by mouth 0 Active (BENTYL) 20 mg every 6 (six) hours. tablet insulin glargine Inject subcutaneously 0 Active (LANTUS) 100 nightly Use as unit/mL injection directed . lisinopriL Take 10 mg by mouth 0 Active (PRINIVIL,ZESTRIL) daily. 10 MG tablet lubiprostone Take 8 mcg by mouth 2 0 Active (AMITIZA) 8 MCG (two) times daily capsule with breakfast and dinner. lipase/protease/deanna Take by mouth. 0 Active lase (CREON ORAL) pantoprazole Take 40 mg by mouth 0 Active (PROTONIX) 40 MG daily. tablet promethazine Take 25 mg by mouth 0 Active (PHENERGAN) 25 MG every 6 (six) hours tablet as needed for Nausea. sucralfate Take 1 g by mouth 4 0 Active (CARAFATE) 1 gram (four) times daily. tablet Active Problems Not on file Encounters Date Type Specialty Care Team Description 08/26/2019 Surgery Gastroenterology Vinnie Shea MD ENDOSCOPY,BIO PSY 08/26/2019 Anesthesia Event Gastroenterology Santo Burgess CRNA 08/26/2019 Hospital Encounter Gastroenterology Vinnie Shea MD 08/15/2019 Hospital Encounter Pre-Admission Testing 08/15/2019 Travel after 08/30/2018 Social History Tobacco Use Types Packs/Day Years Used Date Former Smoker Smokeless Tobacco: Never Used Comments: quit 5 years ago Alcohol Use Drinks/Week oz/Week Comments Yes rarely Alcohol Habits Answer Date Recorded How often do you have a drink containing alcohol? Never 08/15/2019 How many drinks containing alcohol do you [...] Vital Signs Vital Sign Reading Time Taken Blood Pressure 121/56 08/26/2019 1:10 PM CDT Pulse 86 08/26/2019 1:10 PM CDT Temperature 36.8 C (98.3 F) 08/26/2019 1:10 PM CDT Respiratory Rate 17 08/26/2019 1:10 PM CDT Oxygen Saturation 100% 08/26/2019 1:10 PM CDT Inhaled Oxygen Concentration - - Weight 70.7 kg (155 lb 14.4 oz) 08/26/2019 11:0 1 AM CDT Height 157.5 cm (5' 2") 08/26/2019 11:01 AM CDT Body Mass Index 28.51 08/26/2019 11:01 AM CDT Plan of Treatment Not on file Procedures Procedure Name Priority Date/Time Associated Diagnosis Comme nts REPORT OF 08/26/2019 1:44 PROCEDURE - PM CDT ENDOSCOPY URL POCT-GLUCOSE METER Routine 08/26/2019 1:14 Resul ts for this PM CDT procedure are i n the results section. UPPER 08/26/2019 1:00 Acute pancreatitis, ENDOSCOPY,ULTRASOU PM CDT unspecified ND complication status, unspecified pancreatitis type UPPER 08/26/2019 1:00 Acute pancreatitis, ENDOSCOPY,SUBMUCOS PM CDT unspecified AL INJECTION complication status, unspecified pancreatitis type UPPER 08/26/2019 1:00 Acute pancreatitis, ENDOSCOPY,BIOPSY PM CDT unspecified complication status, unspecified pancreatitis type TISSUE EXAM AP Routine 08/26/2019 12:43 Results for this PM CDT procedure are i n the results section. POCT-GLUCOSE METER Routine 08/26/2019 11:28 Resul ts for this AM CDT procedure are i n the results section. after 08/30/2018 Results REPORT OF PROCEDURE - ENDOSCOPY URL (08/26/2019 1:44 PM CDT) Narrative Performed At This result has an attachment that is no t available. POC-Glucose meter (08/26/2019 1:14 PM CDT)Only the most recent of2 results within the time period is included. POC-Glucose Meter 122 (H)Comment: : TESTED 70 - 110 mg/dL [facility] [address] [place] [address], [id number]: Child And Adolescent Therapist/Hide Worker ID = [id number] for Ilda Rodriguez Specimen Blood Performing Organization Address City/State/Zipcode Phone Number [address] [address] CENTER Tissue Exam (08/26/2019 12:43 PM CDT) Case Report Surgical Pathology Report Case: [id number] [facility] Authorizing Provider:Vinnie Ortega Collected: 08/26/2019 12:43 PM [facility] MD Beatrice [facility]ing [facility] Endoscopy Received:08/26/2019 01:56 PM Services Pathologist: Isac Cummins MD Specimen:Biopsy, Gas tric, gastric polyp DIAGNOSIS A. STOMACH, POLYP, BIOPSY: [facility] - ANTRAL MUCOSA WITH POLYPOID FOVEOLAR HYPERPL [facility] - NEGATIVE FOR HELICOBACTER PYLORI ORGANISMS B Y WARTHIN STARRY STAIN - NEGATIVE FOR INTESTINAL METAPLASIA, DYSPLASI A, MALIGNANCY Signing Pathologist Direct Phone Line: CPT Code(s) [address] [facility] ALTH [address] [facility] CLINICAL HISTORY Procedure: upper endoscopy, biopsy [facility] Pre and postop diagnosis: acute pancreatitis [facility] SPECIMEN SOURCE A. Biopsy, gastric [facility] GROSS DESCRIPTION A. Received in formalin labeled [facility] with the patient's name, [facility] accession number and "gastric biopsy", with the additional description "gastric polyp" is one irregular winston-pink piece of mucosal-covered soft tissue measuring 0.4 x 0.3 x 0.2 cm. The specimen is submitted in toto following filtration in cassette A1. RAFA/pl MICROSCOPIC DESCRIPTION Performed. [facility] SPECIAL STUDIES The interpretation of this c ase included the use of immunohistochemistry or special stains. [facility] Control Slides Examined: In -house known positive controls were evaluated along with the test tissue. These control slides run alongside of the patients sample show appropriate staining. Internal posit charlene and negative controls when available are karla gonzáles Immunohistochemistry technjet dai testing was performed at [facility], Pathology Laboratory where it was developed and its performance characteristics were determined. It has not be en cleared or approved by [facility] U.S. Food and Drug Administration. The FDA has determined that such clearance or approval is not necessary. The test is used for clinical purposes. It should not be regarde d as investigational or for research. This laboratory is certified under the Clinical Laboratory Improvement Amendments of 1988 (CLIA-88) as qualified to perform high complexity clinical laboratory testing. Specimen Tissue Performing Organization Address City/State/Zipcode Phone Number [facility] [address] [place] [address] CENTER after 08/30/2018 Insurance Payer Benefit Plan / Group Subscriber ID Type Phone A ddress MEDICARE MEDICARE A B xxxxxxxxxxx Medicare MEDICAID MEDICAID [facility] xxxxxxxxx Medicaid
[2019-08-31 20:32] LABS: Absolute Lymphocytes (CBC) 2.4 K/uL (0.7-4.9); Basophils % 0.8 % (0-1.3); Hematocrit 42.2 % (36.0-45.0); Lymphocytes % 22.4 % (15.3-44.8); MPV 7.9 fL (7.6-11.3); RBC Red Blood Cell Count 4.61 M/uL (3.86-4.86)
[2019-08-31 20:39] LABS: Potassium 3.6 mmol/L (3.5-5.1)
--- NOTE | 2019-08-31 21:12 | RAD REPORT ---
EXAM DESCRIPTION: RAD - Chest Pa And Lat (2 Views) - 08/31/2019 8:36 pm CLINICAL HISTORY: DYSPNEA COMPARISON: Verbal June 19 TECHNIQUE: Frontal and lateral views of the chest were obtained. FINDINGS: The lungs are underinflated with no peripheral mass or consolidation. No significant failu re or volume overload seen. Interstitial pattern is not outside of normal range for shallow inspirati on. No definitive infiltrates seen. Heart size is normal and central vasculature is within normal limits. No pleural effusion or pneu mothorax seen. No acute bony finding noted. No aortic abnormality. IMPRESSION: Shallow inspiration exam without peripheral mass or consolidation. No acute finding conf irmed.
--- NOTE | 2019-08-31 21:53 | EDPHYS ---
Physician Documentation [facility] Name: Robyn Carrion Age: 58 yrs Sex: Female : 1960 Arrival Date: 08/31/2019 Time: 19:43 Bed 4 Private MD: ED Physician Coy Reyes HPI: 08/30 19:52 This 58 yrs old Female presents to ER via Unassigned with complaints of ms3 Shortness Of Breath. 19:52 The patient has shortness of breath at rest. Onset: The symptoms/episode began/occurred ms3 acutely, 30 minute(s) ago. Duration: The symptoms are intermittent. The patient's shortness of breath has no apparent modifying factors. Associated signs and symptoms: Pertinent positives: Laryngeal spasms. Pt had botox procedure 4 days ago.. Severity of symptoms: in the emergency department the symptoms have resolved Pain is currently a 0 / 10. The patient has experienced a previous episode, The patient has experienced similar episodes in the past. The patient has been recently seen by a physician: an ENT specialist. 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 - Social history:: Smoking status: unknown Patient uses alcohol, only on a social basis. Patient/guardian denies using street drugs, tobacco products. ROS: 19:54 Constitutional: Negative for fever, and chills. Eyes: Negative for injury, pain, ms3 redness, and discharge, ENT: Negative for injury, pain, and discharge. 19:54 Cardiovascular: Negative for chest pain, and palpitations. Abdomen/GI: Negative for abdominal pain, nausea, vomiting, diarrhea, and constipation, MS/Extremity: Negative for injury and deformity, Skin: Negative for injury, rash, and discoloration, Neuro: Negative for headache, weakness, numbness, tingling. Psych: Negative for depression, anxiety, suicide ideation, homicidal ideation, and hallucinations, Allergy/Immunology: Negative for hives, rash, and allergies, Hematologic/Lymphatic: Negative for swollen nodes, abnormal bleeding, and unusual bruising. 19:54 Respiratory: Positive for shortness of breath. Exam: 19:54 Constitutional: This is a well developed, well nourished patient who is awake, alert, ms3 and in no acute distress. Head/Face: Normocephalic, atraumatic. Eyes: Pupils equal round and reactive to light, extra-ocular motions intact. Lids and lashes normal. Conjunctiva and sclera are non-icteric and not injected. Cornea within normal limits. Periorbital areas with no swelling, redness, or edema. ENT: Nares patent. No nasal discharge, no septal abnormalities noted. Oropharynx with no redness, swelling, or masses, exudates, or evidence of obstruction, uvula midline. Mucous membranes moist. Neck: Trachea midline, no cervical lymphadenopathy. Supple, full range of motion without nuchal rigidity, or vertebral point tenderness. No Meningismus. Chest/axilla: Normal chest wall appearance and motion. Nontender with no deformity. Cardiovascular: Regular rate and rhythm with a normal S1 and S2. No gallops, murmurs, or rubs. Normal PMI, no JVD. No pulse deficits. Respiratory: Lungs have equal breath sounds bilaterally, clear to auscultation and percussion. No rales, rhonchi or wheezes noted. No increased work of breathing, no retractions or nasal flaring. Abdomen/GI: Soft, non-tender, with normal bowel sounds. No distension or tympany. No guarding or rebound. No evidence of tenderness throughout. Skin: Warm, dry with normal turgor. Normal color with no rashes, no lesions, and no evidence of cellulitis. Neuro: Awake and alert, GCS 15, oriented to person, place, time, and situation. Cranial nerves II-XII grossly intact. Motor strength 5/5 in all extremities. Sensory grossly intact. Cerebellar exam normal. Normal gait. Psych: Awake, alert, with orientation to person, place and time. Behavior, mood, and affect are within normal limits. Vital Signs: 19:50 BP 152 / 81; Pulse 99; Resp 19; Temp 98.5; Pulse Ox 100% on 10% Non-rebreather mask; rr5 Weight 70.31 kg; Height 5 ft. 2 in. (157.48 cm); Pain 0/10; 20:18 BP 124 / 66; Pulse 122; Resp 30; Pulse Ox 99% on 10% Non-rebreather mask; rr5 20:18 BP 128 / 65; Pulse 99; Resp 20; Pulse Ox 100% on 10% Non-rebreather mask; rr5 20:22 BP 121 / 75; Pulse 102; Resp 19; Pulse Ox 100% on 10% Non-rebreather mask; rr5 21:00 BP 115 / 70; Pulse 85; Resp 19; Pulse Ox 100% 6 lpm ; rr5 21:30 BP 119 / 72; Pulse 75; Resp 16; Pulse Ox 99% on 3 lpm NC; rr5 22:00 BP 123 / 73; Pulse 75; Resp 15; Pulse Ox 98% on R/A; rr5 19:50 Body Mass Index 28.35 (70.31 kg, 157.48 cm) rr5 21:30 oxygen decreased to 3 liter per minute. rr5 MDM: 19:51 Patient medically screened. ms3 19:54 Differential diagnosis: Chronic Obstructive Pulmonary Disease pneumonia, Laryngeal ms3 spasm. 21:53 Data reviewed: vital signs, nurses notes, lab test result(s), radiologic studies. ms3 Counseling: I had a detailed discussion with the patient and/or guardian regarding: the historical points, exam findings, and any diagnostic results supporting the discharge/admit diagnosis, lab results, radiology results, the need for outpatient follow up. ED course: Discussed labs and CXR with pt. Pt to follow up with Dr Cole within 2 days. All questions answered. Return precautions discussed to include chest pain, lightheadedness, or any other concerns. Pt and her understand/ agree with plan. Pt improved, nad, non-toxic, ambulatory in ED.. 08/30 20:09 Order name: CBC with Diff; Complete Time: 20:51 ms3 08/30 20:09 Order name: Basic Metabolic Panel; Complete Time: 20:51 ms3 08/30 20:09 Order name: XRAY Chest Pa And Lat (2 Views); Complete Time: 21:36 ms3 08/30 21:36 Interpretation: No acute disease. ms3 Administered Medications: No medications were administered Disposition: 21:53 Co-signature as Attending Physician, Coy Reyes DO. ms3 Disposition: 08/31/19 21:52 Discharged to Home. Impression: Laryngeal spasm. - Condition is Stable. - Medication Reconciliation Form, Thank You Letter, Antibiotic Education, Prescription Opioid Use form. - Follow up: Nusrat Burrows MD; When: 1 - 2 days; Reason: Re-evaluation by your physician. - Problem is chronic. - Symptoms are resolved. Signatures: Dispatcher [employer] Ignacio Sanchez RN RN rr5 Coy Reyes DO DO ms3 Corrections: (The following items were deleted from the chart) 22:45 21:52 08/31/2019 21:52 Discharged to Home. Impression: Laryngeal spasm. Condition is rr5 Stable. Forms are Medication Reconciliation Form, Thank You Letter, Antibiotic Education, Prescription Opioid Use. Follow up: Nusrat Burrows; When: 1 - 2 days; Reason: Re-evaluation by your physician. Problem is chronic. Symptoms are resolved. ms3
--- NOTE | 2019-08-31 21:53 | ER ---
Nurse's Notes [facility] Name: Robyn Carrion Age: 58 yrs Sex: Female : 1960 Arrival Date: 08/31/2019 Time: 19:43 Bed 4 Private MD: Diagnosis: Laryngeal spasm Presentation: 08/30 19:50 Chief complaint: EMS states: complaint of shortness of breath, feel her throat is rr5 getting tight started 30 minutes ago. 19:50 Coronavirus screen: Proceed with normal triage. Ebola Screen: Patient negative for rr5 fever greater than or equal to 101.5 degrees Fahrenheit, and additional compatible Ebola Virus Disease symptoms Patient denies exposure to infectious person. Patient denies travel to an Ebola-affected area in the 21 days before illness onset. Initial Sepsis Screen: Does the patient meet any 2 criteria? No. Patient's initial sepsis screen is negative. Does the patient have a suspected source of infection? No. Patient's initial sepsis screen is negative. Risk Assessment: Do you want to hurt yourself or someone else? Patient reports no desire to harm self or others. Note EMS stated when we arrived patient is coughing consistently, spitting white saliva and can't talk. Oxygen saturation 88% on RA hooked to oxygen at 15 liter oxygen went up to 99%. after the oxygen she feels better. CBG 232 mg/Dl. had a procedure last Sunday because of cricopharyngeal spasm injected botulinum toxin. Onset of symptoms was August 31, 2019. 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 - Social history:: Smoking status: unknown Patient uses alcohol, only on a social basis. Patient/guardian denies using street drugs, tobacco products. Screenin:31 Abuse screen: Denies threats or abuse. Denies injuries from another. Nutritional rr5 screening: No deficits noted. Tuberculosis screening: No symptoms or risk factors identified. Fall Risk IV access (20 points). Total Bonilla Fall Scale indicates No Risk (0-24 pts). Assessment: 19:50 General: Appears in no apparent distress. comfortable, Behavior is calm, cooperative, rr5 appropriate for age. 19:50 Pain: Denies pain. Neuro: Level of Consciousness is awake, alert, obeys commands, rr5 Oriented to person, place, time, situation. Cardiovascular: Capillary refill < 3 seconds Patient's skin is warm and dry. Rhythm is regular. Respiratory: Reports shortness of breath Airway is patent Trachea midline Respiratory effort is even, unlabored, Respiratory pattern is regular, symmetrical, Breath sounds are clear bilaterally. GI: No signs and/or symptoms were reported involving the gastrointestinal system. : No signs and/or symptoms were reported regarding the genitourinary system. EENT: Throat is clear is pink with gag reflex present, voice hoarseness noted.. Reports episode of throat is getting tight. Derm: No signs and/or symptoms reported regarding the dermatologic system. Musculoskeletal: Circulation, motion, and sensation intact. Capillary refill < 3 seconds. 20:20 Reassessment: complaint having hard to breath and throat getting tight. Reassess by ED rr5 provider, vital signs taken after few minutes she calms down and said its getting better. 21:30 Reassessment: Patient appears in no apparent distress at this time. maitaining oxygen rr5 saturation at 99-100 % decrease oxygen to 3 liters Patient denies pain at this time. 22:04 Reassessment: Patient appears in no apparent distress at this time. Patient is alert, rr5 oriented x 3, equal unlabored respirations, skin warm/dry/pink. patient chatting with her billing coordinator. oxygen discontinue. Vital Signs: 19:50 BP 152 / 81; Pulse 99; Resp 19; Temp 98.5; Pulse Ox 100% on 10% Non-rebreather mask; rr5 Weight 70.31 kg; Height 5 ft. 2 in. (157.48 cm); Pain 0/10; 20:18 BP 124 / 66; Pulse 122; Resp 30; Pulse Ox 99% on 10% Non-rebreather mask; rr5 20:18 BP 128 / 65; Pulse 99; Resp 20; Pulse Ox 100% on 10% Non-rebreather mask; rr5 20:22 BP 121 / 75; Pulse 102; Resp 19; Pulse Ox 100% on 10% Non-rebreather mask; rr5 21:00 BP 115 / 70; Pulse 85; Resp 19; Pulse Ox 100% 6 lpm ; rr5 21:30 BP 119 / 72; Pulse 75; Resp 16; Pulse Ox 99% on 3 lpm NC; rr5 22:00 BP 123 / 73; Pulse 75; Resp 15; Pulse Ox 98% on R/A; rr5 19:50 Body Mass Index 28.35 (70.31 kg, 157.48 cm) rr5 21:30 oxygen decreased to 3 liter per minute. rr5 ED Course: 19:43 Patient arrived in ED. cf2 19:44 Coy Reyes DO is Attending Physician. ms3 19:50 Maintain EMS IV. Dressing intact. Good blood return noted. Site clean \T\ dry. Gauge \T\ rr 5 site: G20 right hand. 19:53 Ignacio Connell, HAIDER is Primary Nurse. rr5 19:59 Triage completed. rr5 19:59 Arm band placed on right wrist. rr5 20:10 Basic Metabolic Panel Sent. ds4 20:10 CBC with Diff Sent. ds4 20:34 XRAY Chest Pa And Lat (2 Views) In Process Unspecified. EDMS 21:52 Nusrat Burrows MD is Referral Physician. ms3 Administered Medications: No medications were administered Outcome: 21:52 Discharge ordered by . ms3 22:45 Patient left the ED. rr5 Signatures: Dispatcher [employer] EDMS Jarad Guerrero ds4 Ignacio Connell, HAIDER RN rr5 Adia Carrillo cf2 Coy Reyes DO DO ms3 Corrections: (The following items were deleted from the chart) 20:32 20:20 Reassessment: complaint having hard to breath, Reassess by ED provider, vital rr5 signs taken after few minutes she calms down and said its getting better. rr5 20:54 19:50 EENT: Throat is clear is pink with gag reflex present, Reports episode of throat rr5 is getting tight. rr5
[2019-08-31 22:51] VITALS: TEMP 98.5
[2019-08-31 22:59] VITALS: BP 123/73; O2SAT 98
== END 2019-08-31 22:45 | disposition home or self-care (01) ==
LOC: ER 19:38
DX: J38.5 Laryngeal spasm (principal); Z88.6 Allergy status to analgesic agent
CPT/HCPCS: 36415; 71046; 80048; 85025; 99284

== ENCOUNTER 2019-09-27 22:55 | Emergency (ER) | payer OTHER ==
--- OUTSIDE RECORDS SUMMARY | 2019-09-27 22:57 | XMS REPORT | Clinical Summary ---
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 Specimen Tissue Narrative Performed At This result has an attachment that is no t available. after 09/26/2018 Insurance Payer Benefit Plan / Subscriber ID Effective Dates Phone Addre ss Type Group MEDICARE MEDICARE PART A xxxxxxxxxxx 2001-Present [facility] [place] Medicare AND B Advance Directives For more information, please contact: [phone] Type Date Recorded Patient Con[employer]er Explanati on Advance Directives, Living Will and Medical Power of Automatic Equipment Technician
--- OUTSIDE RECORDS SUMMARY | 2019-09-27 22:58 | XMS REPORT | Continuity of Care Document ---
:1960 Author Organization [facility] t Address [address] [place] [address] Care Team Providers Name Role Phone Paradise Suero MD Primary Care Physician RENY OGLESBY Attending Clinician Unavailable Reny Oglesby MD Attending Clinician Hector Burgess CRNA Attending Clinician Fredy Collazo MD Attending Clinician Nupur Pinzon NP Attending Clinician Davide Silva MD Attending Clinician MARISELA Attending Clinician Unavailable FREDERICK Attending Clinician Unavailable RENY OGLESBY Admitting Clinician Unavailable Payers Payer Name Policy Policy Number Effective Expiration Source Type Date Date MEDICAREMEDICARE A xxxxxxxxxxx [place] ta[place]y [place] BxxxxxxxxxxxMedicare [facility] MEDICAIDMEDICAID OF xxxxxxxxx [place] S t [place] IDAHOxxxxxxxxxMedicaid [facility] MEDICAREMEDICARE PART A xxxxxxxxxxx [address] [place] AND 00:00:00 [facility] Bxxxxxxxxxxx2001[facility], [place] Condition Condition Condition Status Onset Resolution Last Treating Co mments Source Name Details Category Date Date Treatment Clinician Date Hyperlipid Hyperlipid Problem Active [facility] [place] [facility] Hypertensi Hypertensi Problem Active U nivers on [facility] [place] [facility] Diabetes Diabetes Problem Active [facility] [place] [facility] Follow up Follow up Problem Active Uni [facility] [place] [facility] Allergies, Adverse Reactions, Alerts Allergy Allergy Status Severity Reaction(s) Onset Inactive Treating Comm ents Source Name Type Date Date Clinician Hydrocod Propensi Active [facility]14 [facility] - aminophe adverse 00:00: Medical n reaction 00 Center s hydrocod DA Active [facility]06 [facility] [place] Hydrocod Propensi Active [place] one ty to 11-01 Methodi adverse 00:00: st reaction 00 s to drug Family History Family Member Diagnosis Comments Start Date Stop Date Source Unknown Family Family history of Other Uni versity of Member diabetes mellitus [place] [facility] Unknown Family Family history of Other Uni versity of Member hypertension [place] [facility] Unknown Family Family history of Other Uni versity of Member Heart problem [place] [facility] Natural father Diabetes [place] [facility] Natural father Hypertension [place] [facility] Natural mother Diabetes [place] [facility] Natural mother Heart disease [place] [facility] Natural mother Hypertension [facility] Social History Social Habit Start Date Stop Date Quantity Comments Source History SDOH [facility] - [facility] Std Drinks [facility] Center History SDOH [facility] Binge Medical [place] [address] Sex Assigned At [facility] St Romina kes - [facility] Center History SDOH 2019-08-15 2019-08-[address] [facility] - Alcohol Frequency 00:00:00 00:00:00 [facility] Tobacco Comment 2019-08-15 2019-08-15 quit 5 [address] [facility] - 00:00:00 00:00:00 ago [facility] Alcohol Comment 2019-08-15 2019-08-15 rarely [facility] St Romina kes - 00:00:00 00:00:00 [facility] Alcohol intake 2018-12-10 2018-12-10 [facility]ist 00:00:00 00:00:00 non-drinker (finding) Smoking Status Start Date Stop Date Source Former smoker 2019-08-26 00:00:00 2019-08-26 00:00:[address] [facility] Never smoker Julian hector Medications Ordered Filled Start Stop Current Ordering Indication Dosage Frequency Signature Comments Components Source Medication Medication Date Date Medication? Clinician (SIG) Name Name insulin 2020-0 Yes QD Inject [facility] glargine 5-08 subcutaneo [facility] - (LANTUS) 15:29: usly Medical 100 unit/mL 48 nightly Cente r injection Use as directed . lisinopriL 2020-0 Yes 10mg QD Take [address] (PRINIVIL,Z 5-08 by mouth Luke s - ESTRIL) 10 15:29: daily. Medic al MG tablet 48 Center lubiproston 2019-0 Yes 8ug Take [address] e (AMITIZA) 5-08 by mouth 2 Romina kes - 8 MCG 15:29: (two) Medical capsule 48 times Center daily with breakfast and dinner. lipase/prot 2020-0 Yes Take by [facility] ease/amylas 5-08 mouth. [facility] - e (CREON 15:29: Medical ORAL) 48 Center pantoprazol 2019-0 Yes 40mg QD Take [address] e 5-08 by mouth [facility] - (PROTONIX) 15:29: daily. Medic al 40 MG 48 Center tablet promethazin 2019-0 Yes 25mg Take [address] e 5-08 by mouth [facility] - (PHENERGAN) 15:29: every 6 Med ical 25 MG 48 (six) Center tablet hours as needed for Nausea. sucralfate 2020-0 Yes 1g Q.25D Take [address] (CARAFATE) 5-08 by mouth 4 Mini es - 1 gram 15:29: (four) Medical tablet 48 times Center daily. atorvastati 2020-0 Yes 40mg QD Take [address] n (LIPITOR) 5-08 by mouth Luke s - 40 MG 15:29: daily. Medical tablet 47 Center dicyclomine 2019-0 Yes 20mg Take [address] (BENTYL) 20 5-08 by mouth Luke s - mg tablet 15:29: every 6 Medic al 47 (six) Center hours. ciprofloxac 2018-0 2019- No 500mg Q.5D Take [address] in (CIPRO) 11-06 tablet Method i 500 MG 00:00: 23:59 ([address] tablet 00 :00 total) by mouth 2 (two) times a day for 5 days. metroNIDAZO 2018- No 500mg [id number] Take 1 Julian LE (FLAGYL) 11-06 [id number] tablet Methodi 500 MG 00:00: 23:59 3D ([address] tablet 00 :00 total) by mouth 3 (three) times a day for 5 days. SUPREP 2018- No 354mL Take 2 [place] BOWEL PREP 11-04 Bottles Metho di KIT 00:00: 23:59 ([address] 17.5-3.13-1 00 :00 total) by .6 gram mouth once recon soln for 1 dose. Take as directed by physician Vital Signs Vital Name Observation Time Observation Value Comments Source Systolic blood 2019-08-26 13:10:00 121 mm[Hg] [facility] Diastolic blood 2019-08-26 13:10:00 56 mm[Hg] [facility] S [facility] Heart rate 2019-08-26 13:10:00 86 /min [facility] Body temperature 2019-08-26 13:10:00 36.83 Alysia [facility] Respiratory rate 2019-08-26 13:10:00 17 /min [facility] Oxygen saturation in 2019-08-26 13:10:00 100 /min [facility] Arterial blood by Medical Ce nter Pulse oximetry Body height 2019-08-26 11:01:00 157.5 cm [facility] Body weight Measured 2019-08-26 11:01:00 70.716 kg [facility] BMI 2019-08-26 11:01:00 28.51 kg/m2 [facility] Systolic blood 2018-11-26 10:11:00 143 mm[Hg] [place] [facility] pressure Diastolic blood 2018-11-26 10:11:00 74 mm[Hg] [place] [facility] pressure Heart rate 2018-11-26 10:11:00 67 /min [facility] Body temperature 2018-11-26 10:11:00 36.61 [place]lysia [place] Body height 2018-11-01 13:27:00 157.5 cm [facility] Body weight 2018-11-01 13:27:00 72.576 kg [place] [facility] BMI 2018-11-01 13:27:00 29.26 kg/m2 [place] [facility] Height 2018-05-24 10:25:00 62 [in_us] [facility] [place] [facility] Weight 2018-05-24 10:25:00 154.9 [lb_av] [facility] [place] [facility] Body Mass Index 2018-05-24 10:25:00 28.33 kg/m2 [facility] Cal[facility] [place] [facility] BP Systolic 2018-04-26 10:21:00 127 mm[Hg] [facility] [place] [facility] BP Diastolic 2018-04-26 10:21:00 76 mm[Hg] [facility] [place] [facility] Height 2018-04-26 10:21:00 62 [in_us] [facility] [place] [facility] Weight 2018-04-26 10:21:00 155.6 [lb_av] [facility] [place] [facility] Body Mass Index 2018-04-26 10:21:00 28.46 kg/m2 Unive rsity of Calculated [place] [facility] Temperature 2018-04-26 10:21:00 97 [degF] [facility] [place] [facility] Heart Rate 2018-04-26 10:21:00 73 /min [facility] [place] [facility] Procedures Procedure Date / Time Performed Performing Clinician [facility] e REPORT OF PROCEDURE - 2019-08-26 13:44:[address] [facility] URL [facility] POCT-GLUCOSE METER 2019-08-26 13:14:[address] [facility] UPPER 2019-08-26 13:00:00 [facility]lesby [facility],BIOPSY [facility] UPPER 2019-08-26 13:00:00 [facility]lesby [facility],SUBMUCOSAL [facility] [place] [address] INJECTION UPPER 2019-08-26 13:00:00 Vinnei Oglesby [facility]ULTRASOUND [facility] [place] [facility] TISSUE EXAM 2019-08-26 12:43:00 Vinnie Oglesby [facility] POCT-GLUCOSE METER 2019-08-26 11:28:00 Vinnie Oglesby [facility] SURGICAL PATHOLOGY 2018-11-11 00:00:00 Betito Collazo [place] REQUEST Plan of Care Planned Activity Planned Date Details Comments Source Future Scheduled Test 2019-11-08 INFLUENZA VACCINE [facility] 00:00:00 [code = INFLUENZA VACCINE] Future Scheduled Test 2008 BREAST CANCER [place] 00:00:00 SCREENING [code = BREAST CANCER SCREENING] Future Scheduled Test 2008 COLONOSCOPY SCREENING [place] [facility] 00:00:00 [code = COLONOSCOPY SCREENING] Future Scheduled Test 2008 SHINGLES VACCINES [facility] 00:00:00 (#1) [code = SHINGLES VACCINES (#1)] Future Scheduled Test 1979-09-07 Screening for [place] 00:00:00 malignant neoplasm of cervix (procedure) [code = 628275672] Future Scheduled Test 1968 DIABETIC FOOT EXAM [place] [facility] 00:00:00 [code = DIABETIC FOOT EXAM] Future Scheduled Test 1968 URINE MICROALBUMIN [place] [facility] 00:00:00 [code = URINE MICROALBUMIN] Future Scheduled Test 1958 DIABETIC RETINAL EYE [place] [facility] 00:00:00 EXAM [code = DIABETIC RETINAL EYE EXAM] Future Appointment 2019-10-07 Vinnie Oglesby MD, [facility] 10:30:[address] [address] Encounters Start End Encounter Admission Attending Care Care Encounter Source Date/Time Date/Time Type Type Clinicians Facility Department ID 2018-05-24 2018-05-24 RAFAT [facility] [id number] Univers 10:30:00 10:30:00 t; WILL, Surgery n[place] ANTON[place] SOLISOIggy ans 2018-04-26 2018-04-26 RAFAT [place] UTP [id number] Univers 10:15:00 10:15:00 t; nelson SOLIS D.O. [place] WILL, Physici D.O. ans 2018-04-19 2018-04-[facility]ISELA, UTP UTP [id number] Univers 10:00:00 10:00:00 t; nelson SOLIS D.O. [place] WILL, Physici D.O. ans 2018-03-27 2018-03-27 Appointmen MARISELA, UTP UTP [id number] Univers 10:30:00 10:30:00 t; nelson SOLIS D.O. [place] WILL, Physici D.O. ans 2018-03-22 2018-03-22 Appointmen MARISELA, UTP UTP [id number] Univers 10:30:00 10:30:00 t; nelson SOLIS D.O. [place] WILL, Physici D.O. ans 2018-03-06 2018-03-06 Appointmen FREDERICK, UTP UTP [id number] Univers 08:30:00 08:30:00 t; CYRIL MACK M.D. i ty [facility] [place] [facility] 2018-02-14 2018-02-14 [facility] MARISELA, UTP UTP [id number] Univers 08:15:00 08:15:00 t; nelson SOLIS D.O. [place] WILL, Physici D.O. ans 2018-01-11 2018-01-11 Appointlindsey MARISELA, UTP UTP [id number] Univers 10:30:00 10:30:00 t; nelson SOLIS D.O. [place] WILL, Physici [facility]. [facility] Results Test Description Test Time Test Comments Results Result Comments Source Tissue Exam 2019-08-27 09:36:00 Test Item Value Reference Range Interpretation Comme nts Case Report (test code = 104) Surgical Pathology Report Case: [id number] Authorizing Provider: Vinnie Oglesby Collected: 08/26/2019 12:43 PM MD Beatrice Ordering Location: [facility] Endoscopy Received: 08/26/2019 01:56 PM Services Pathologist: Isac Cummins MD Specimen: Biopsy, Gastric, gastric polyp DIAGNOSIS (test code = 3220) j2xcpGQrACQqt5cfGHFpnDAsEgZiFhMpAnGiNl pc hNWfKDsxbqMsAYrgy5DbP4TeYvGbEJqeeaVvAJIo JoilbineXOXzLYB5orJgBTEdXXraUYYnSCnaHl6g hBUauAifWiKdFAIlc4aaxwXAdcaugHi7j8reLEVl NzW9dMQsDZzvF5zkvrZtvQAmBTBiNSk7sS78YAGb mC4xgPDzFRodjbYpBoQ6MFnhTFNqMrW8BBVcyHPj KTEeQ7baZDHeBFnkSWUxODtxmBDvVOU3cYfwk2S0 hUCrmBVleBebJtQmInSfKHMXc5HbMPv7gIsmM2Yc ULWjYyS2oMJbGMOaVYarHRIzMFYiitE6kO30BUln vaN1lTOfl0Cah79sb236pY5awEUsSEB1YFFuRKXq oCYoZRAzPAS4PAXrrYRtY3q7HlLqtWVkF5U8AlNt rMIeR9W8ThLmkCVyU8I9MeGfpWVkXKRpvYVxOw1b lKVnrBDbmo4jdh46GLD6q1ZkmBdaRQE5HUR1RmKp Bo5ocMSjQEZuOY0zFkWubPXnGTGtmf76iMisJQvk rnIfmX8qYbKiPC8olXovn35aUSGoPK3ztF4dij4s mhQcMTiagJZfaFF6wcleOSA1OINlrfQgm9Ued8pb NlMgvvIbF6fjX3CeCNDaKOYjFAGgLfCmxjYfg0Kv t0OhjWSpaZg3z9pbFLTfYPSolGtmq6mfSVD4CDOy D4K6jQGti7zlCObwZESlnZG5trbvXXnoDBTqevP3 uyzrWOqgXENzgZR2hzuiYIryJHDdZhQ5nlvbHZko WBTgKZI3RQeta860EMP7FRrlQxumHCmjPTTqnnDa bnRccGduZGVjXHBsYWluXHBsYWluXGYwXGZzMjRc dWOdRIxoe6TobwEapStjHLWyLGl7jlCpshdyjRv0 tVUrjAuzXEBxgDjvgV2yItNjShIzVWtzPT2qDXJj X1gmgOViQWUbGNUkN3tkGeEdcM7uqTibMWbkliRc IEEuIFxwbGFpblxmMVxmczIwXGxhbmcxMDMzXGhp B7onFkAnNDHcqDvjQSitq7YqEAWhUDLiQqvslmZh FQf2reZzEDEXE72NR4wePMzlyWDqtbwdRXmgeeGn XValymjyMKQeHQbeM9gtPxVbOHBzbPvtDDpkh7Zs KZPfUIAmUrJlXF7OAYBwEWobtZNrlifxWJysqqFs CWcdqppcCYClAZgjX7frUdHbYFSuxFbyXCntl8Gf HBZsGOMuJciehbWfGZp1npPrWSISJ6OTFYUkMDsm XGYxXGZzMjBcbGFuZzEwMzNcaGljaFxmMVxkYmNo ICIzNNnzK3ztEgHeIbSoIQTGKACjWNgcZQXmZADg MjBcbGFuZzEwMzNcaGljaFxmMVxkYmNoXGYxXGxv L7miMmOfW5VoEBKdYxBkbMWjK3djLxtbTMFhhWyu iP0uZaWlCgKrPRpzSB3nVOOnO2oxjRPlKOIaQWFg W0tkBrRdpV4kyEbgZWtzzjDjWVSsyEcqrG3nBsDg IwNuKCmxUV8hLETxE3bcuZDxCYAhFBKiR8qaFtBm rX2qxSrmKKffUjQlRmNfCZzsmCUjsTLsCUIqYYoe XGYxXGZzMjBcbGFuZzEwMzNcaGljaFxmMVxkYmNo NSVzFLmiC2nwZmLpThYrNDWtDNMsODzcBZXdSZRe MjBcbGFuZzEwMzNcaGljaFxmMVxkYmNoXGYxXGxv Y7dkYjSgU7QcKSEnWoIlfVChF7ebKEECYCNRWOJA MXDIE3ThM9uOFEXkxIpfnA7tNcZtAhExHIimUS6t FPXeJ4fjnWPfPRVeVTJlB5jxJrVztR4aqEpcKNsy ypJhDYVNYKoJV4dSFZPZMzSWXBDELOiYCHILPOkK Q8hWZLIwzvJoIAXePZjxPAXxWMKmJeRrnLRiXlEw RaRjqLnqwRfzKAvsWkOaNKCaKSrpG1vcYwAyO8Ft VWZdRwNfdXOtP4kwZMxliDLigvnsTGvtsjRkCTcc wdzbFKHbMPjvM0uiCtLuJCTlxOrvEBbrg0CnPVQr XGZzMjAgIFxwbGFpblxmMVxmczIwXGxhbmcxMDMz EKinK0jgJpKtUJIqcJqgKZcij1FmUTXkVDTsQybb frIxKSt2waVsXAHYZNzBYDwMFYSXE8DdNAVBGFVH HiESLZXSOFLVSO7WXADMHniUSweWSKWrDjzpE1BB SKiDYeNXSRJYBjfzT9YVPB5qpTFnYUDcpfMsx1Qh TEZfAKG8RVzeIWixoXlqbDBszyziHBuswjL5PTEz YWluXGYxXGZzMjbGFuZzEwMzNcaGljaFxmMVxk JkGoQKMmKUdiA4naOhTzMdChSHKsPEUiQPxzZQNh XGZzMjBcbGFuZzEwMzNcaGljaFxmMVxkYmNoXGYx KSkbB8rxRcNaF0IjWRTfKzTpxOYqM8niZXtvrEGq exanTSemyoJxFXrayfegCEWeHQteL6auUhKjNRGc vVqxJVfpd3XfFAAwWKStKyHcPEwtsOCmvgiyXEim oeUdXBisuuyaLPNrUHpcE5hiKxJtLIUdjXwcGDgl i5YsCIYkTCOsRtpjibHbQBn9vdSeGWDCBAoLXJbS YXPVP0PmUK1WMTUVFR7ACMGHBGPZDOsVZ8fMBVEH [file] YXJ9fQ== CPT Code(s) (test code = 3357) y9eitYEgGAWudMZeQmGdOEToUYEvb7nfODCx bGFu WiFhHqPxPeGxKqmsoFSqQYXxHlPqk0nmh882vBNu g3okZIPvHpZ1nXUjSLIzaAAjS121v6csz5gakfYd gCE1BRQzWYU2ZTsszbAcqhV0VLznsBIsMcI3ILyp tmTrUDzefzYpnjNtOro7FJLbV759VMX9zHcut1ik KDW7KKJtOOUnEiOuEd2alWNkJ017XJCoZCYYWHQy jOs4QXAtjvDorcYxoPGZr666T045o6bkUEPfvoAk wGyLvbseq0nfC597IPBxnQKtnbSkXxFwLRIgsAWt cQQ6ZGNwTE3ikaguPzSqRI9brwwqYqDgAG5cpfq8 SfGiFX2zzhdtGhPxVAofIALwpfhiRMTzn1Wjbajn FC8yS5Yak7E8nN6emTTxDEWtoUGqFpImHSUdlv1h xOJvLSbrp1PhOBR7owQ0nDLiyQDhYVEjOL56Hgrq r6KzXxvrCWB5NWXtezQjt3Dtc2fyBqLvntRyB3pv D4XkBYMePHFdWBQiQyUtrfRgs4Try1AtjWNyrGn6 s0wiVPTnVNUdfWzhi9spKOH2SXMmI5Q4vAQyb8mi XTccTSDiyOV2zgrrAEilWDYotfS7nbxrTZygOCGe xUF0mlenTYlcFFEvYpN2urvwPPqhVOUuBAF9VPeq a639FJC4UDqsOhtqVUvhQPLgdvKpljKecLyzBGEv WATdHHosCJTnNIfxCBZmLXUgGyEvdCnawBmhkD3d StSxPyDaGXwxUV9lXMVdQ7lsnPTnNZIlAHOnA4nx DkTzfG4xgNcvWHhlqsHhTUe7IwS8MIGvmjB2YRBt MlxwYXJ9 CLINICAL HISTORY (test code = 3356) q8usxXHaHGZfkTYnIeWbGAOeLNLzw8w cZGVmbGFu HiNhToIuPmKxWqwarSKsEUDyGtDdf0pal794sZLz d1zmVCVdMfM5oIUrSPSzjDUwL315NFDnUJhba7si r2DrCUAebMYcq3K3GLKTxwutzJa5pSlhT10da0U4 DvzrY3dnCQCfAWrgANPgVRbnkZIdDQN7DIJtWSW6 XXglkcPumhC5LDjwyRRtUlE9UWf6a5mrkEjdKYAx TBF8u0wtWWkqvyRuIP5qvp9evEk4w4viubIkZQUu EISxnCOTKFRxM4SadBilWz0iyJw4nHvcCxpdONT1 Von7ZH3fnx24oeq4jUcaHWKuaxlgFuO2ABcaVJWg jtxkSYr4ZTnlYZDyfOxpMEklPUWbryfzECayWHLa vRxaKKilZFKvRyyqRZqpUUUaQKG2GRmgq275WNW1 OJskb5dgu0xxhFKdMlk1KSKqHfUuIoxbXOadv3Ey m9htVPRftw3jHNO0pQGffZlba8D5fNPfPGQlkPHd rdYbJGReIpU7EWmfXI2aus68DFUwSQE8ms1yuZXu wDulkkNrgNTdKGeuN9SuBQWkf198SWSdZ6BqQWSn r9W0aqXwPwIuYKEmtSO8wfX0CFViVIu2mVGicdZ6 xwGxnLSsG9asuL21XoNnaDUeP3LalK84HwUmzOTr V0WtcI59VqAiaHFfA7UxvG31HeXxdDZcKKVgkGTg Ol6bfBGnpMIqw2HymRNaEStdV95na806ILZmhnIz G4zhyDIqbczrqAYdgwmxGQhamhMaJLXaXPTqXMyy HBAlOWVpMhOqhQlkgM4sZpDsUaJaKSVWqm3dZPS1 efX6RDBwqVYeFFPpRI4hF53znJzzBvuiaZR6UJUz wdKXzbWiRU5bTXQag3ObtHXxnSGxdu9cqMJ8AYAu pDFjESOsfkPjPOO5hCJmkhShqSNhyB== SPECIMEN SOURCE (test code = 3377) l5bejEExSYMnlLQnKzTtDQIgGMKgq7pw ZGVmbGFu PuMsVyTbWoOoZbqmyFFySIXcQzZms6bjx157tLPl w5eoDYKtBaP7fVMlHERpyZRgS755r5grb1vmraJs cUG4WGXeKVG2UUvfjjMypsT4KParcLRkHjS0EArg szSmDDpissYnehPcLts1GOHbL645SVR4pTqay9gq OBT7FZDnQKLaUtZjEz5wkQLwS619RBAcOKFEEWAu mOs6RONslnDjgyDyfXCGo888Z594q7qqISIjjmTd lDiXavmoz9pdJ343PNWpzWMjiiAwRfMtFYBotKWn gOA5KRApKU1fyybmHhIdSX9wxedyVxMlOQ0zkyw0 ZaUhUC5oqpliHoSyDWmdVGYjvzjvFODsf5Xfofpr HY1vL7Pny5H4uX9jfSMcAIPfqZKhAyArLJKjku1u eSXuXYuuk5XoSTY0frR6pANliOQvOGZrJE64Dpoq h8OsZxcqOEK2AAOdalPbn9Pak5kzBfWbxqBeK9ff Y0BzADZgXXVyVEWzBxVpaiSfk4Izt4EhjRHalFz7 a4ahSGXvOMEjxCikt5fhNCJ8KVSyZ4W7qLHzv5rv XGmiKLPzoKV8riigAHejQKTuptJ6yfjpFKwcHZDp wRB0kjskCPxbGNUvLiK9zhqbGMqkPNOhZDU4TVfh l302MTQ8OXmmNittDUumGDXediTexhGqyTduXBPd IZDjCJzkVVTnTPgzCGTuUPQiFuGmlNikeRninP3f NwKiQxSsMWdcAL0xFWDhT4lclKWpLQPfSKIeN7px UrMovW9deEabIWygthAlGFDzCPYrk9MtnRcyM4Cq pSLdW1crZEI8 GROSS DESCRIPTION (test code = 3366) r3cioTEcMYKxhBGgGnMdMPMeHCTyh9 lcZGVmbGFu HcKqEnNuPtPfCjtgcLOsVBDxHtAhc5yck322hDEe a3ynOZUwUuB5dUUjESOtxOSpU546VBUhPDgwg0pj g2HlJSCuhBPir9L4AUZScskjlTu0hPrcN38ap9E5 WbcqI2deIGMfSVwiQUHxUDxxaDOpXAF1MTMcBNC9 CHycwtIiusI3PWbesIJyIrW8HCu8t5crwUctBHCn GYC1x2jpIShfefNgGM0uym8yzJg6y5duwjFwKUQr LFEymSNTPEMwC3BczRznJz0nsTo1xUthFrymGKI5 Hix0TE5fby25rdi1lEasAWMbvrlvWzF3QIpxDQQl snccFKj8CFnrFPJaaMwxIQayZOMdmovuLHqjXFUr dEphTAjcBWUbFyjtSUiaOKSwYVA5OIyti497MDQ9 LKxig4ktn5ohdWIxMct8BVTmKrLmYfxuHJlqi8Xj i8yxLTUfpa1xCEA4gULctOfhj6U8cMOkXXVvxIQo ayCkLXQfSlC3BIidCK8ysd46JAWoNEO8dj2jaRNc zKvrxuIehFMfBKduS6JdLLTlz172JNJjG5WtNDGo k2X3ekDdNyDnQRBgxJB6qkT5MNGeSMy6rZJhtmV0 ekCnkJStU3ginI89VnCpsWHvX5TmlJ21WvJnpJJa Y6OplX72TyJsqKGlL3SpcI11AdQrxZXlIBFbvFWy Ez6mhVAzeCUjp0SjgAVaZRhfP52vo978NMPcskHv I8bwnXQiyjbffOMeczsnOCkowzPuKVXgKNCxIStf WZYwMAHwQgZdoIvbrU4uTvSfEcGwAFPYSrRiUPCd LDeeHQQpOECpHmRwGhUfWVe1QTXftQ3gQm9qdDWh yJ7neZXvWNacGZS0eKCwAHEyAGCnVHChTV49H5Ht dzObQUvjIPUgTNZlsI9cQM44bIQvkuQpvdMauJvl hI6iJrMjCuPtVSGlZqasw8ZrhCUgWebkxKB2Gdcu SNMbUNdwEHZjMFImUgMao0c3zSS7mXOpHWErwUIq v13zsYNyIHCeltnqmOzfbnniqAAvxtlxCGosyzQj GSYnD4EqkYGsZxBkc4i4hBMmeHZqg60pMEbibYOu blxmMVxmczIwIGlycmVndWxhclxwbGFpblxmMFxm sbQwXPJ2GS1ziOcqclOwiCQuGRKyRsCvaEAxd0Ci AEPuvzAnPCUwo92eeFU1fZKkgRXrgYPkc1VyzN7e GUNeLNO6GRBxJjF7JOGpQtZjoG0vSVmuwAAihthm ZLbvegTyBVVoISNaoRHgpI0pybWlfdSmtJBgfIK1 YOGpyZ9wbN38ypYeh7lyf9dphmulZvezaJNwkPqa itPgwhFpDGZlHCG3QZhkwNUgfzwwJIningZvWFTM CA3pDwHskBffwWWwhL== MICROSCOPIC DESCRIPTION (test code = g5jefWIkBAJwrDXfCaDtGNYpRGSkk9 [place] [address]) NkNcUyYvXsYzJlkhbTFxZYWeKwPqn4bie164iGTg h9muORLaXeB0iLXgTCTnvWKaU271PXHcKXrfj6wc s0VrBPYtmAEtm5E9BRUJubxffEg6hJahP39ev7U8 EbknY9diKXUvOZqfKJUmCZycrUBcIVG2ATYjTKC8 WDzctxAgzjB2GVbfvHMzIrX6MEe1i8yazGdhACQx EMY1r1duGKjvxlTtWP4fbu0avIq2x2ilghAmWUKn QZAhuSLQGTYaH5ExmHtfGr7pzNl5mIwgPuwpKUW9 Dnr5TM8rwv64qbf9nXdiPXMyjpimBqP3GGodEGQm yepkFHf7JTvtURXbvJfpNDhsVQSktsctYHpoGYKh kHihUJpaUQNqQwvqJVvaQWZgRZF1KGdvx165STD8 GXczj0bun5yqiGXhWjd0PIJjJbIyGcwuXOadx1Px f7uuOPFikq2wLTA1uJOrbMlrj1N1bLJuPBMngLOq qvAdIYEkdb04eCPsqDJicBEtmk1odyGatWYqiGEt KJG5vLMrquBgXGHquYCbOAWkYS1rqULwJOKqqT0x rlbdZPUgKcOalokxWWNttYfdnnLqUd7qjVbxKEA6 MWllC7pbnQ1cLzU1KZgoP7snwM7hSLp7SPqahOA8 EAXmdI4pDO8eelmza8pfRvWtCA2zwhgva4rmAiLl WQ1jgkn7v6ukFaBtTZ2gsdwpz2jqVnYjGSbqHVBd wrkqDHZrz6UtwwtqLOCuu0RjV4GzkVrkI23olIwj U75yCEZwkAsfwJ4euDfdzD6cHiJyPeOjIFpdyHcy bGFpblxmMFxmczIwXHBsYWluXGYxXGZzMjAgUGVy Tx5zyKNyXvkwUTOrbRPhsS== SPECIAL STUDIES (test code = 3376) d6ydxODcJXLye2pqBYEyjXWhYbFkOhMw ZnRuYmpc xDNcUDaepaCtXObub1OxA1JkMiUuBDpycnPnPLSj JawpbrarSHCoSIQ0geVoGQXzODkbYFAaDGdlYw0u tESjeFikByWkYRCsk2wcahINnyazbDb5b4pvSOHq UoO4iCZrEDfxA3hkfvGioQGuD1XirMYtuOf7n4co BeVgMwA5tWZqYBhjU1bwfxCxqTBeRFLnDSm7jL52 JEWvkW2fnIFzGCkqpqCoSoZ8HVamASXqTcU4LXSl aRPrGWKcW8tpEGTlMIwsLCYtSJxriWPnXAA1bMde x2Y2xNQygVUwfHsmIuFsWwSnSoOQf5NqSJu3fKwq C2ZvVKOeAqC0gQYsMYXyGQrfZVQgGKStrfW9uWme ymQum23jtUZnRXCvLABvUjYakNhgVKMqMOHSc0Vp pQpuMUK2wXt7aYxmAlhhOAM3Dxa1QH5aye52axj9 pTovWSLxofxpIvU8YEtkQBZudfxzXMm8ULfhUCFe pAA3BWUapUBsM5QtVWKsLB4dfeh6WYO6BRdoLZLa MjH8GOBlzHRgLQJinWuyTAivf459TAN9BiMzIV4b Z1Omq4S7nU7vuFKnZBXaxXVuKwLhHRJnjb2etFEc HMeap0FkPRX9wtM0pASrtXNePPIdNP48Ytuub1Gz Esftm3IsJ22vnLU9HOakn3rhOZ7lSgZ4kpSrIVsv j9qkrA2fOvX2MQbqDV4uGI9pDBScaC8yycynEPTp IgXwnfxmMRBwfCxozbUjAx9btVngHGC7FHvgZ7fa kC8wGjQ2BBidH3wqnH0fKIt3YAwwaUH7XZCcoX2k CH6xlgxcr3ehNPdlGJzqBACzemH0gzL3QPGhsPZj G2TtgS8pAHGhWW1vzxepx7rjPDI7BVlyRMVaPNF3 TgEzBPSzt5Psskc4LjDgi1WukRUtFUesX30hx312 MBUamdZqW6lacMMputbzmLVceoydVCslduI5OQBc XHBsYWluXGYxXGZzMjJcbGFuZzEwMzNcaGljaFxm DDgjDmMmRQUkCVbjM8rrXaFnC7EeOVIlCbLxEXlv PAxkxDMogFNoiEJ6nL9qBI8uOYZpnXOiS2RaQZPb juXdeBRjHGL0tLYcmCTgHQ5hYAicwVRej7kjt7Ym R8nbfAzlaAV4EO7oYBPqINYsVWpaz4DtkY2tKzou mWDisrwtEXflvpJmNXyncousSQPpNRnlW8cjLiFh YXLrgEqaHSfjl4TcGFZxYHYdKsybmoXmFKp8zvTj BUKxoaejQGTlyQnfvG6qJpAqGuLbWrgdWC9vAPOt L0gxuPCkJYLqPIGeL5puHcBtlD9xiPhyUEkmFtQd MnHiPmMNc587nd4sFNGqpPJgueWLnMPhnZ1wPNbx NSihBYsnpXXgMPzsz1rvTEWjd6g3yIXkBDLzmdJu d0glTVatfmWwCMMutNBgjTZoDFPua99vWDjubUbc sXjeZKVkb8IwyTmdy2WeGgPoPObvq5StP18faTTt zUQntCmaTFFpzoXoPQVgi69fg2hxJEScOkQ8tEGm zAS9bKFyvLCix4NggAyjARQoo7jnLVOteq8tagpn iGDsa0IbrN5luawmZGidjLUhioQcOQCor7u8lCHy CHYnOMLdHCizzQi8YCEzq091de0yfuF5uOStQQK0 YWlsYWJsZSBhcmUgZXZhbHVhdGVkXHBsYWluXGYx XGZzMjJcbGFuZzEwMzNcaGljaFxmMVxkYmNoXGYx TKbbL5mmPsDuS7NyWNMgJySdfPStU5vjzKPaYNMi YWluXGYxXGZzMjJcbGFuZzEwMzNcaGljaFxmMVxk EjQfKEWiJPvbM2vwUhEzF1NqLZSuJnWkDZzufXKg wumaVAtzdpQbLYxadphiQIOuFAesY7qvWbChZMKi tQikYPauj8XtNJCoEUWtLfvfjeLbYCx6ycRzBXNr zrxjcBHhxbdlBBxagcJeXNjvzuuaVUMrTWtoB7su [file] TkjlQXE3mK== [facility] [id number] 09:36:00Surgical Pathology Report Case: [id number] Authorizing Provider: Vinnie Oglesby Collected: 08/26/2019 12:43 PM MD Beatrice OrderingLocation: [facility] Received: 08/26/2019 01:56 PM Services Pathologist: Isac Cummins MD Specimen: Biopsy, Gastric, gastric polyp A. STOMACH, POLYP, BIOPSY: - ANTRAL MUCOSA WITH POLYPOID FOVEOLAR HYPERPLASIA - NEGATIVE FOR HELICOBACTER PYLORI ORGANISMS BY WARTHIN STARRY STAIN - NEGATIVE FOR INTESTINAL METAPLASIA, DYSPLASIA, MALIGNANCY Signing Pathologist Direct Phone Line: [phone] signed by Isac Cummins MD on 08/27/2019 at 9:36 [id number]: upper endoscopy, biopsyPre and postop diagnosis: acute pancreatitis A. Biopsy, gastricA. Received in formalin labeled with the patient's name, accession number and "gastric biopsy", with the additional description "gastric polyp" is one irregular winston-pink piece ofmucosal-covered soft tissue measuring 0.4 x 0.3 x 0.2 cm. The specimen is submitted in toto following filtration in cassette A1. RAFA/plPerformed.The interpretation of this case included the use of immun ohistochemistry or special stains.Control Slides Examined: In-house known positive controls were evaluated along with the test tissue. These control slides run alongside of the patients sample show appropriate staining. Internal positive and negative controls when available are evaluated Immunohistochemistry technical testing was performed at [facility], Pathology Laboratory where it was developed and its performance characteristics were determined. It has not been cleared orapproved by the U.[place]. Food and Drug Administration. The FDA has determined that such clearance or approval is not necessary. The test is used for clinical purposes. It should not be regarded as investigational or for research. This laboratory is certified under the Clinical Laboratory Improvement Amendments of 1988 (CLIA-88) as qualified to perform high complexity clinical laboratory testing.POC-Glucose [id number] 13:26:00 Test Item Value Reference Range Interpretation Comments POC-Glucose Meter (test 122 mg/dL 70-110 H : TE STED AT [facility] code = 1538) 6720 [facility], 770 30: Towel Sewer/Techni wendy ID = [id number] for Ilda Rodriguez Lab Interpretation (test Abnormal code = 98324-6) [facility] [id number] 13:26:00 Test Item Value Reference Range Interpretation Comments POC-GLUCOSE METER 122 mg/dL 70-110 H : [facility] ([facility] (test code = [facility], 1538) 75275: Towel Sewer/Techni wendy ID = [id number] for Ilda Bailey POCT-GLUCOSE [id number] 11:40:00 Test Item Value Reference Range Interpretation Comments POC-GLUCOSE METER 137 mg/dL 70-110 H : [facility] ([facility] (test code = [facility], 1538) 22085: Towel Sewer/Techni wendy ID = [id number] for KATIE CANTU COLON SEGMENT RESEC.NOT [id number] 19:21:00 RUN DATE: 11/14/18 [facility] PAGE 1 RUN TIME: 810 Specimen Inquiry RUN USER: INTERFACE PATIENT: DAISY HAMMER LOC: [facility] U #: [id number] AGE/SX: 58/F ROOM: [facility] RE11/11/18REG DR: Betito Collazo MD : 56 BED: A DIS: 11/13/18 STATUS: DIS Sharla TLOC: SPEC #: [id number] RECD: 11/11/18 STATUS: BRITTNY JIANG #: [id number] CRISTINO: 11/11/18- SUBM DR: Betito Collazo MD ENTERED: 11/11/18 SP TYPE: COLONR NIDIA RICHARDSON: ORDERED: LEVEL V SURGICA CODES: R12102 - COLON, NOS PROCEDURES: LEVEL V SURGICA (Incomplete) TISSUES: COLON, NOS - RECTOSIGMOID DIVERTICULITIS CLINICAL HISTORY 58 year old, diverticulitis (wpd) FINAL DIAGNOSIS Designated "rectosigmoid diverticulitis", segmental resection: - diverticular disease with peridiverticular fibrosis - intestinal rings - unremarkable CPT code(s): 95670 pkg/wpd 11/13/18 GROSS DESCRIPTION ANATOMIC SOURCE OFTISSUE [...] and contains unremarkable mucosa and surrounding tissue. Irrigation Teacher sections are submitted in A2. The largest [...] Specimen Inquiry RUN USER: INTERFACE SPEC #: [id number] PATIENT: DAISY HAMMER #[id number] (Continued) GROSS DESCRIPTION (Continued) 1.0 cm and containing green-brown fecal material. No discrete perforationor discoloration in those areas are noted. Irrigation Teacher sections of the intestine with the diverticula are submitted in A3 - A8. Examination of attached adipose tissue reveals no discrete lymph nodes. Irrigation Teacher sections are submitted in A9 - A16. /wpd 11/11/18 @ 0728 MICROSCOPIC DESCRIPTION The specimen consists of a segment of rectosigmoid colon containing numerous diverticula which extend through the muscularis into the rectosigmoid adipose tissue. Foci of fibrosis are present adjacent to the diverticula. No granulomas, dysplasia or neoplasia are identified. The intestinal rings are unremarkable. pkrashad/wpd 11/13/18 Signed Deena Storm 11/13/18 192 ENDOF REPORT [id number] 07:10:00 Test Item Value Reference Range Interpretation Comments GLUBED (test code = GLUBED) 180 mg/dL 65-110 H COMPREHENSIVE METABOLIC [id number] 05:48:00 Test Item Value Reference Range Interpretation [...] 106 units/L 46-116 N code = ALKP) [id number] 05:48:00 Test Item Value Reference Range Interpretation Comments MAGNESIUM (test code = MAG) 1.8 mg/dL 1.8-2.4 N CBC W/AUTO [id number] 04:49:00 Test Item Value Reference Range Interpretation [...] REQUIRED (test NORMAL NORMAL code = PLTMR) [id number] 21:57:00 Test Item Value Reference Range Interpretation Comments GLUBED (test code = GLUBED) 278 mg/dL 65-110 H [id number] 17:26:00 Test Item Value Reference Range Interpretation Comments GLUBED (test code = 292 mg/dL 65-110 H Hypoglyc emic Protoco GLUBED) [id number] 12:11:00 Test Item Value Reference Range Interpretation Comments GLUBED (test code = GLUBED) 131 mg/dL 65-110 H [id number] 07:23:00 Test Item Value Reference Range Interpretation Comments GLUBED (test code = GLUBED) 110 mg/dL 65-110 N CHEMISTRY 7 [id number] 05:23:00 Test Item Value Reference Range Interpretation [...] code = CA) 7.8 mg/dL 8.4-10.2 L [id number] 05:23:00 Test Item Value Reference Range Interpretation Comments MAGNESIUM (test code = MAG) 1.8 mg/dL 1.8-2.4 N CBC W/AUTO [id number] 05:19:00 Test Item Value Reference Range Interpretation [...] REQUIRED (test NORMAL NORMAL code = PLTMR) [id number] 22:07:00 Test Item Value Reference Range Interpretation Comments GLUBED (test code = GLUBED) 171 mg/dL 65-110 H [id number] 17:41:00 Test Item Value Reference Range Interpretation Comments GLUBED (test code = GLUBED) 157 mg/dL 65-110 H [id number] 13:26:00 Test Item Value Reference Range Interpretation Comments GLUBED (test code = GLUBED) 154 mg/dL 65-110 H [id number] 06:54:00 Test Item Value Reference Range Interpretation Comments GLUBED (test code = GLUBED) 143 mg/dL 65-110 H CHEMISTRY 7 [id number] 13:07:00 Test Item Value Reference Range Interpretation [...] = CA) 8.5 mg/dL 8.4-10.2 N HGB [id number] 12:51:00 Test Item Value Reference Range Interpretation Comments HEMOGLOBIN (test code = HGB) 13.6 g/dL 10.7-13.9 N HEMATOCRIT (test code = HCT) 40.3 % 32.1-42.1 N
--- OUTSIDE RECORDS SUMMARY | 2019-09-27 22:58 | XMS REPORT | Clinical Summary ---
:1960 Author Organization [facility] Address [address] [place] [address] Care Team Providers Name Role Phone Unavailable [...] Hospital Encounter Pre-Admission Testing 08/15/2019 Travel after 09/26/2018 Social History Tobacco Use Types Packs/Day Years [...] 08/26/2019 11:01 AM CDT Plan of Treatment Date Type Specialty Care Team Description 10/07/2019 Hospital Encounter Gastroenterology Vinnie Shea MD [address] [place], [place] [address] [phone] 10/07/2019 Surgery Gastroenterology Vinnie Shea UPPER EN DOSCOPY,FNA Shabbir Barron MD W/ULTRASOUND [address] [place], [place] [address] [phone] Procedures Procedure Name Priority Date/Time Associated Diagnosis [...] are i n the results section. after 09/26/2018 Results REPORT OF PROCEDURE - ENDOSCOPY URL (08/26/2019 1:44 PM CDT) Narrative Performed At This result has an attachment that is no t available. POC-Glucose meter (08/26/2019 1:14 PM CDT)Only the most recent of2 results within the time period is included. POC-Glucose Meter 122 (H)Comment: : TESTED 70 - 110 mg/dL [facility] AT [address], [facility]: It Security Manager/Lighting Technician ID = [id number] for Michael Ilda Specimen Blood Performing Organization Address City/State/[place] [address] CENTER Tissue Exam (08/26/2019 12:43 PM CDT) Case Report Surgical Pathology Report Case: [id number] [facility] Authorizing Provider:Vinnie Ortega Collected: 08/26/2019 12:43 PM [facility] MD Beatrice Ordering Location: [facility] Endoscopy Received:08/26/2019 01:56 PM Services Pathologist: Isac Cummins MD Specimen:Biopsy, Gas tric, gastric polyp DIAGNOSIS A. STOMACH, POLYP, BIOPSY: [facility] - ANTRAL MUCOSA WITH POLYPOID FOVEOLAR HYPERPL BRITTANY [facility] - NEGATIVE FOR HELICOBACTER PYLORI ORGANISMS B Y WARTHIN STARRY STAIN - NEGATIVE FOR INTESTINAL METAPLASIA, DYSPLASI A, MALIGNANCY Signing Pathologist Direct Phone Line: [phone] CPT Code(s) [address] [facility] [address] [facility] CLINICAL HISTORY Procedure: upper endoscopy, biopsy [facility] Pre and postop diagnosis: acute pancreatitis [facility] SPECIMEN SOURCE A. Biopsy, gastric [facility] GROSS DESCRIPTION A. Received in formalin labeled [facility] with the patient's name, [facility] accession number and "gastric biopsy", with the additional description "gastric polyp" is one irregular winston-pink piece of mucosal-covered soft tissue measuring 0.4 x 0.3 x 0.2 cm. The specimen is submitted in toto following filtration in cassette A1. RAFA/pl MICROSCOPIC DESCRIPTION Performed. [facility] The interpretation of this c ase included the use of immunohistochemistry or special stains. [facility] Control Slides Examined: In -house known positive controls were evaluated along with the test tissue. These control slides run alongside of the patients sample show appropriate staining. Internal posit charlene and negative controls when available are karla gonzáles Immunohistochemistry technic al testing was performed at [facility], Pathology Laboratory where it was developed and its performance characteristics were determined. It has not be en cleared or approved by hospital for special surgery U.S. Food and Drug Administration. The FDA [...] Tissue Performing Organization Address City/State/Zipcode Phone Number [facility] [address] [place] [address] CENTER after 09/26/2018 Insurance Payer Benefit Plan / Group Subscriber ID Type Phone A ddress MEDICARE MEDICARE A B xxxxxxxxxxx Medicare MEDICAID MEDICAID [facility] xxxxxxxxx Medicaid
[2019-09-27] MEDS ORDERED: AMOX/K CLAV 875 MG TAB ONE (23:57)
[2019-09-27] MEDS ORDERED: TETANUS & DIPHTHERIA TOX,ADULT 0.5 ML VIAL ONE (23:57)
[2019-09-27] MEDS ORDERED: TRAMADOL HCL 50 MG TAB ONE (23:58)
--- NOTE | 2019-09-28 01:46 | EDPHYS ---
Physician Documentation [facility] Name: Robyn Carrion Age: 59 yrs Sex: Female : 1960 Arrival Date: 09/27/2019 Time: 23:00 Bed 8 Private MD: Berry Suero F ED Physician Tian Stuart HPI: 09/27 00:39 This 59 yrs old Female presents to ER via Ambulatory with complaints of Dog pm1 Bite. 00:39 The patient was bitten on the left hand, by a dog, trying to separate dogs fighting, at pm1 home. Onset: The symptoms/episode began/occurred just prior to arrival. Animal information: The animal was reported to appear healthy. Animal's vaccinations are up to date. police present in ER room to take report. Secondary to the bite the patient reports multiple puncture wounds. Associated signs and symptoms: Pertinent positives: swelling at site. The patient has not experienced similar symptoms in the past. Patient was attempting to separate her two dogs that were fighting and she got bite on the left hand. Historical: - Allergies: 09/26 23:15 HYDROCODONE; wh - Home Meds: 23:15 Amitiza Oral [Active]; atorvastatin Oral [Active]; Creon Oral [Active]; Dicyclomine wh Oral [Active]; Lantus Sub-Q [Active]; Lisinopril Oral [Active]; - PMHx: 23:15 fernando esophageal disease; cricopharyngeal spasm; Hyperlipidemia; Diabetes - NIDDM; High Cholesterol; - PSHx: 23:15 Cholecystectomy; Hysterectomy; wh - Immunization history:: Adult Immunizations up to date. - Social history:: Smoking status: Patient/guardian denies using. ROS: 09/27 00:39 Constitutional: Negative for fever, chills, and weight loss. pm1 MS/extremity: Positive for bite, pain, swelling, tenderness, of the left hand, Negative for decreased range of motion, deformity. Skin: Positive for laceration(s), of the dorsal aspect of proximal phalanx of left index finger. Neuro: Negative for numbness, tingling, weakness. All other systems are negative. Exam: 00:39 Constitutional: This is a well developed, well nourished patient who is awake, alert, pm1 and in no acute distress. Head/Face: Normocephalic, atraumatic. Neck: Trachea midline, no thyromegaly or masses palpated, and no cervical lymphadenopathy. Supple, full range of motion without nuchal rigidity, or vertebral point tenderness. No Meningismus. 00:39 Cardiovascular: Exam negative for acute changes, Rate: normal, Rhythm: regular, Pulses: no pulse deficits are appreciated. 00:39 Respiratory: Exam negative for acute changes, the patient does not display signs of respiratory distress, Respirations: normal. 00:39 Musculoskeletal/extremity: Extremities: grossly normal except: noted in the left hand: swelling. 00:39 Skin: injury, laceration(s), the wound is approximately 1 cm(s), with a depth of 0.3 cm(s), of the dorsal aspect of proximal phalanx of left index finger, the second wound is approximately 0.5 cm(s), with a depth of 0.2 cm(s), of the palmar aspect of distal phalanx of left ring finger and palmar aspect of distal phalanx of left middle finger. Vital Signs: 09/26 23:11 BP 178 / 88; Pulse 88; Resp 18; Temp 97.8; Pulse Ox 99% on R/A; Weight 69.85 kg; Height 5 ft. 1 in. (154.94 cm); Pain 8/10; 09/27 00:30 BP 139 / 97; Pulse 76; Resp 18; Pulse Ox 97% on R/A; 01:30 BP 170 / 90; Pulse 67; Resp 18; Pulse Ox 98% on R/A; 02:45 BP 145 / 86; Pulse 76; Resp 18; Pulse Ox 99% on R/A; 09/26 23:11 Body Mass Index 29.10 (69.85 kg, 154.94 cm) MDM: 09/26 23:21 Patient medically screened. [facility] 09/27 01:44 Data reviewed: vital signs. Data interpreted: Pulse oximetry: on room air is 97 %. pm1 Interpretation: normal. Counseling: I had a detailed discussion with the patient and/or guardian regarding: the historical points, exam findings, and any diagnostic results supporting the discharge/admit diagnosis, radiology results, the need for outpatient follow up, to return to the emergency department if symptoms worsen or persist or if there are any questions or concerns that arise at home. 01:44 Special discussion: I discussed in detail with the patient the higher chance of wound pm1 infection based on his presenting history. explained to patient that laceration is a higher risk for infection if I close it. Patient understands rationale . 09/26 23:42 Order name: Hand Left 3 View XRAY; Complete Time: 15:04 pm1 09/27 01:43 Order name: Splint: coaptation left hand; Complete Time: 02:54 pm1 09/27 01:44 Order name: Sling; Complete Time: 02:54 pm1 Administered Medications: 00:06 Drug: Augmentin 875 mg Route: PO; 02:54 Follow up: Response: No adverse reaction 00:07 Drug: Tetanus-Diphtheria Toxoid Adult 0.5 ml {Monomer Purification Operator: [employer]. Exp: 05/23/2021. Lot #: [id number]. } Route: IM; Site: right deltoid; 02:54 Follow up: Response: No adverse reaction 00:07 Drug: traMADol 50 mg {Note: RASS 0.} Route: PO; 02:54 Follow up: Response: No adverse reaction; Pain is decreased; RASS: Alert and Calm (0) Disposition: 04:22 Co-signature as Attending Physician, Tian Stuart MD I agree with the assessment and lisa plan of care. Disposition: 09/28/19 01:45 Discharged to Home. Impression: Laceration without foreign body of left index finger without damage to nail, Laceration without foreign body of left middle finger without damage to nail, Laceration without foreign body of left ring finger without damage to nail, Bitten by dog. - Condition is Stable. - Discharge Instructions: Laceration Care, Adult, Animal Bite. - Prescriptions for Augmentin 875- 125 mg Oral Tablet - take 1 tablet by ORAL route every 12 hours for 10 days; 20 tablet. Tylenol- Codeine #3 300-30 mg Oral Tablet - take 2 tablets by ORAL route every 6 hours As needed; 20 tablet. - Medication Reconciliation Form, Thank You Letter, Antibiotic Education, Prescription Opioid Use form. - Follow up: Emergency Department; When: As needed; Reason: Worsening of condition. Follow up: Mo De La Torre MD; When: 2 - 3 days; Reason: Recheck today's complaints, Continuance of care, Re-evaluation by your physician. - Problem is new. - Symptoms have improved. Signatures: Dispatcher [employer] EDMS Tian Stuart, Guillaume Talavera MD, cha, OFFICE WORKFORCE PLANNER OFFICE WORKFORCE PLANNER pm1 ReinaFoster urbinaannie paz Corrections: (The following items were deleted from the chart) 02:57 01:45 09/28/2019 01:45 Discharged to Home. Impression: Laceration without foreign body wh of left index finger without damage to nail; Laceration without foreign body of left middle finger without damage to nail; Laceration without foreign body of left ring finger without damage to nail; Bitten by dog. Condition is Stable. Forms are Medication Reconciliation Form, Thank You Letter, Antibiotic Education, Prescription Opioid Use. Follow up: Emergency Department; When: As needed; Reason: Worsening of condition. Follow up: Mo De La Torre; When: 2 - 3 days; Reason: Recheck today's complaints, Continuance of care, Re-evaluation by your physician. Problem is new. Symptoms have improved. pm1
--- NOTE | 2019-09-28 01:46 | ER ---
Nurse's Notes [facility] Name: Robyn Carrion Age: 59 yrs Sex: Female : 1960 Arrival Date: 09/27/2019 Time: 23:00 Bed 8 Private MD: Berry Suero F Diagnosis: Laceration without foreign body of left index finger without damage to nail;Laceration without foreign body of left middle finger without damage to nail;Laceration without foreign body of left ring finger without damage to nail;Bitten by dog Presentation: 09/26 23:11 Chief complaint: Patient states: trying to break up dogs from fighting was bit on left hand. Pt states both dogs are hers and updated on vaccines. Coronavirus screen: Proceed with normal triage. Patient denies a cough. Patient denies shortness of breath or difficulty breathing. Patient denies measured and/or subjective temperature greater than 100.4F prior to today's visit. Patient denies travel on a cruise ship or to a country the [facility] currently lists as an affected area. Patient denies contact with known and/or suspected case of COVID-19. Ebola Screen: Patient negative for fever greater than or equal to 101.5 degrees Fahrenheit, and additional compatible Ebola Virus Disease symptoms Patient denies exposure to infectious person. Initial Sepsis Screen: Does the patient meet any 2 criteria? No. Patient's initial sepsis screen is negative. Does the patient have a suspected source of infection? No. Patient's initial sepsis screen is negative. Risk Assessment: Do you want to hurt yourself or someone else? Patient reports no desire to harm self or others. Onset of symptoms was September 27, 2019. 23:11 Method Of Arrival: Ambulatory 23:11 Acuity: DARA 4 Triage Assessment: 23:16 Bite description: bite sustained to right hand by a dog, animal information: vaccination(s) is current. Historical: - Allergies: 23:15 HYDROCODONE; - Home Meds: 23:15 Amitiza Oral [Active]; atorvastatin Oral [Active]; Creon Oral [Active]; Dicyclomine wh Oral [Active]; Lantus Sub-Q [Active]; Lisinopril Oral [Active]; - PMHx: 23:15 fernando esophageal disease; cricopharyngeal spasm; Hyperlipidemia; Diabetes - NIDDM; High Cholesterol; - PSHx: 23:15 Cholecystectomy; Hysterectomy; wh - Immunization history:: Adult Immunizations up to date. - Social history:: Smoking status: Patient/guardian denies using. Screenin:16 Abuse screen: Denies threats or abuse. Denies injuries from another. Nutritional wh screening: No deficits noted. Tuberculosis screening: No symptoms or risk factors identified. Fall Risk None identified. Assessment: 23:30 General: Appears in no apparent distress. Behavior is calm, cooperative, appropriate wh for age. Pain: Complains of pain in left hand. Neuro: Level of Consciousness is awake, alert, obeys commands. Neuro: Oriented to person, place, time, situation, Appropriate for age. Cardiovascular: Capillary refill < 3 seconds. Respiratory: Airway is patent Respiratory effort is even, unlabored, Respiratory pattern is regular, symmetrical. GI: Abdomen is flat, non-distended. : No signs and/or symptoms were reported regarding the genitourinary system. EENT: No signs and/or symptoms were reported regarding the EENT system. Derm: Skin is intact, is healthy with good turgor, Skin is pink, warm \T\ dry. normal. Musculoskeletal: Circulation, motion, and sensation intact. Injury Description: Animal BIte. 09/27 00:22 Reassessment: RODRIGUEZ WHALEN on phone requesting to verify information about pt and status of sg animals with HAIDER Laguna at this time. 00:30 Reassessment: Patient appears in no apparent distress at this time. No changes from previously documented assessment. Patient and/or family updated on plan of care and expected duration. Pain level reassessed. Patient is alert, oriented x 3, equal unlabored respirations, skin warm/dry/pink. 01:30 Reassessment: Patient appears in no apparent distress at this time. No changes from previously documented assessment. Patient and/or family updated on plan of care and expected duration. Pain level reassessed. Patient is alert, oriented x 3, equal unlabored respirations, skin warm/dry/pink. 02:45 Reassessment: Patient appears in no apparent distress at this time. No changes from previously documented assessment. Patient and/or family updated on plan of care and expected duration. Pain level reassessed. Patient is alert, oriented x 3, equal unlabored respirations, skin warm/dry/pink. Vital Signs: 09/26 23:11 BP 178 / 88; Pulse 88; Resp 18; Temp 97.8; Pulse Ox 99% on R/A; Weight 69.85 kg; Height 5 ft. 1 in. (154.94 cm); Pain 8/10; 09/27 00:30 BP 139 / 97; Pulse 76; Resp 18; Pulse Ox 97% on R/A; wh 01:30 BP 170 / 90; Pulse 67; Resp 18; Pulse Ox 98% on R/A; wh 02:45 BP 145 / 86; Pulse 76; Resp 18; Pulse Ox 99% on R/A; wh 09/26 23:11 Body Mass Index 29.10 (69.85 kg, 154.94 cm) ED Course: 09/26 23:00 Patient arrived in ED. mr 23:00 Berry Suero MD is Private Physician. mr 23:11 Guillaume Saavedra NP is PHCP. pm1 23:11 Tian Stuart MD is Attending Physician. pm1 23:11 Luz Elena Kowalski is Primary Nurse. 23:13 Triage completed. 23:16 Patient has correct armband on for positive identification. Bed in low position. Call light in reach. Side rails up X 1. Pulse ox on. NIBP on. 23:30 Arm band placed on left wrist. 09/27 00:39 No provider procedures requiring assistance completed. Patient did not have IV access during this emergency room visit. 01:14 Hand Left 3 View XRAY In Process Unspecified. EDMS 01:44 Mo De La Torre MD is Referral Physician. pm1 02:56 Orthoglass splint: Ulnar gutter/Boxer splint applied on left forearm. oe 02:56 Sling applied to left arm. oe Administered Medications: 00:06 Drug: Augmentin 875 mg Route: PO; 02:54 Follow up: Response: No adverse reaction 00:07 Drug: Tetanus-Diphtheria Toxoid Adult 0.5 ml {Hide Dropper: [employer]. Exp: 05/23/2021. Lot #: [id number]. } Route: IM; Site: right deltoid; 02:54 Follow up: Response: No adverse reaction 00:07 Drug: traMADol 50 mg {Note: RASS 0.} Route: PO; 02:54 Follow up: Response: No adverse reaction; Pain is decreased; RASS: Alert and Calm (0) Outcome: 01:45 Discharge ordered by MD. pm1 02:56 Discharged to home ambulatory, with family. 02:56 Condition: stable 02:56 Discharge instructions given to patient, family, Instructed on discharge instructions, follow up and referral plans. no drinking with medication, no driving heavy equipment, medication usage, wound care, POC Demonstrated understanding of instructions, follow-up care, medications, wound care, POC Prescriptions given X 2. 02:57 Patient left the ED. Signatures: Dispatcher [employer] EDMS Sherman Knight RN RN Delisa Romero mr Guillaume Saavedra, HYDRAULIC SPECIALIST HYDRAULIC SPECIALIST pm1 Chan Holland Winsy Corrections: (The following items were deleted from the chart) 01:03 09/26 23:11 Chief complaint: Patient states: trying to break up dogs from fighting was bit on right hand. Pt states both dogs are hers and updated on vaccines 09/27 01:04 09/26 23:30 Pain: Complains of pain in right hand [facility]
[2019-09-28 03:06] VITALS: TEMP 97.8
[2019-09-28 03:10] VITALS: BP 145/86; O2SAT 99
--- NOTE | 2019-09-28 12:02 | RAD REPORT ---
EXAM DESCRIPTION: RAD -Hand Left 3 View - 09/28/2019 1:13 am CLINICAL HISTORY: Left hand pain status post injury FINDINGS: No fracture or dislocation is seen. Osteoporosis
== END 2019-09-28 02:57 | disposition home or self-care (01) ==
LOC: ER 22:55
DX: S61.213A Laceration without foreign body of left middle finger without damage to nail, initial encounter (principal); S61.215A Laceration without foreign body of left ring finger without damage to nail, initial encounter; W54.0XXA Bitten by dog, initial encounter; Y93.89 Activity, other specified; Y92.9 Unspecified place or not applicable; Z23 Encounter for immunization; E78.5 Hyperlipidemia, unspecified; E11.9 Type 2 diabetes mellitus without complications; Z79.4 Long term (current) use of insulin; E78.00 Pure hypercholesterolemia, unspecified; Z88.5 Allergy status to narcotic agent
CPT/HCPCS: 90471; 90714; 99284

== ENCOUNTER 2019-09-29 18:13 | Inpatient (IN) | payer OTHER ==
--- OUTSIDE RECORDS SUMMARY | 2019-09-29 18:16 | XMS REPORT | Clinical Summary ---
:1960 Author Organization [facility] Address [address] [place] [address] Care Team Providers Name Role Phone Berry [...] Block, Selena Espitia, perforati on or abscess SYSTEMS COORDINATOR without bleedin g (Primary Dx) 11/26/2018 Office [...] abscess without bleedin g (Primary Dx) after 09/28/2018 Family History Medical History Relation Name Comments [...] 11/11/2018 SURGICAL PATHOLOGY REQUEST Routine 11/11/2018 after 09/28/2018 Results Surgical pathology request (11/11/2018)Only the most recent of2 resultswithin the time period is included. Specimen Tissue Narrative Performed At This result has an attachment that is no t available. 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
--- OUTSIDE RECORDS SUMMARY | 2019-09-29 18:17 | XMS REPORT | Clinical Summary ---
:1960 Author Organization [facility] Address [address] [place] [address] Care Team Providers Name Role Phone Unavailable [...] Hospital Encounter Pre-Admission Testing 08/15/2019 Travel after 09/28/2018 Social History Tobacco Use Types Packs/Day Years [...] Hospital Encounter Gastroenterology Vinnie Shea MD [address] [place], [place] [address] [phone] 10/07/2019 Surgery Gastroenterology Vinnie Shea UPPER EN DOSCOPY,FNA Shabbir Barron MD W/ULTRASOUND [address] [place], [place] [address] [phone] Procedures Procedure Name Priority Date/Time Associated Diagnosis [...] are i n the results section. after 09/28/2018 Results REPORT OF PROCEDURE - ENDOSCOPY URL (08/26/2019 1:44 PM CDT) Narrative Performed At This result has an attachment that is no t available. POC-Glucose meter (08/26/2019 1:14 PM CDT)Only the most recent of2 results within the time period is included. POC-Glucose Meter 122 (H)Comment: : TESTED 70 - 110 mg/dL [facility] AT [address], [facility]: [employer] Consultant/Copyright Manager ID = [id number] for Michael Ilda Specimen Blood Performing Organization Address City/State/[place] [address] CENTER Tissue Exam (08/26/2019 12:43 PM CDT) Case Report Surgical Pathology Report Case: [id number] [facility] Authorizing Provider:Vinnie Ortega Collected: 08/26/2019 12:43 PM [facility] MD Beatrice Ordering Location: [facility] Endoscopy Received:08/26/2019 01:56 PM Services Pathologist: Isac Cummins MD Specimen:Biopsy, Gas tric, gastric polyp DIAGNOSIS A. STOMACH, POLYP, BIOPSY: [facility] WITH POLYPOID FOVEOLAR HYPERPL BRITTANY [facility] - NEGATIVE FOR HELICOBACTER PYLORI ORGANISMS B Y WARTHIN STARRY STAIN - NEGATIVE FOR INTESTINAL METAPLASIA, DYSPLASI A, MALIGNANCY Signing Pathologist Direct Phone Line: CPT Code(s) [address] [facility] [address] [facility] CLINICAL HISTORY Procedure: upper endoscopy, biopsy [facility] Pre and postop diagnosis: acute pancreatitis [facility] SPECIMEN SOURCE A. Biopsy, gastric [facility] GROSS DESCRIPTION A. Received in formalin labeled [facility] with the patient's name, [facility] accession number and "gastric biopsy", with the additional description "gastric polyp" is one irregular winston-pink piece of mucosal-covered soft tissue measuring 0.4 x 0.3 x 0.2 cm. The specimen is submitted in toto following filtration in cassette A1. RAFA/pl MICROSCOPIC DESCRIPTION Performed. [facility] SPECIAL STUDIES The interpretation of this c ase included the use of immunohistochemistry or special stains. [facility] Control Slides Examined: In -house known positive controls were evaluated along with the test tissue. These control slides run alongside of the patients sample show appropriate staining. Internal posit charlene and negative controls when available are karla gonzáles Immunohistochemistry technic al testing was performed at [facility], Pathology Laboratory where it was developed and its performance characteristics were determined. It has not be en cleared or approved by [facility] [place].S. Food and Drug Administration. The [...] Tissue Performing Organization Address City/State/Zipcode Phone Number [facility] [address] [place] [address] CENTER after 09/28/2018 Insurance Payer Benefit Plan / Group Subscriber ID Type Phone A ddress MEDICARE MEDICARE A B xxxxxxxxxxx Medicare MEDICAID MEDICAID [facility] xxxxxxxxx Medicaid
--- OUTSIDE RECORDS SUMMARY | 2019-09-29 18:18 | XMS REPORT | Continuity of Care Document ---
:1960 Author Organization [facility] t Address [address] [place] [address] Care Team Providers Name Role Phone Paradise [...] A xxxxxxxxxxx ROSETTA S tawny Crump BxxxxxxxxxxxMedicare [facility] MEDICAIDMEDICAID OF xxxxxxxxx ROSETTA S t Theron [place]xxxxxxxxxMedicaid [facility] MEDICAREMEDICARE PART A xxxxxxxxxxx [address] [place] AND 00:00:00 [place] Bxxxxxxxxxxx2001[facility], [place]Medicare Problems Condition Condition Condition Status Onset Resolution Last Treating Co mments Source Name Details Category Date Date Treatment Clinician Date Hyperlipid Hyperlipid Problem Active [facility] [place] [facility] Hypertensi Hypertensi Problem Active [facility] nivers on [facility] [place] [facility] Diabetes Diabetes Problem Active [facility] [place] [facility] Follow up Follow up Problem Active Uni [facility] [place] [facility] Allergies, Adverse Reactions, Alerts Allergy Allergy Status Severity Reaction(s) Onset Inactive Treating Comm ents Source Name Type Date Date Clinician Hydrocod Propensi [facility] aminophe adverse [facility]: Medical n reaction 00 Center s hydrocod DA Active [facility] [place] Hydrocod Propensi Active [place] one ty [...] Other Uni versity of Member Heart problem [place] [facility] Natural father Diabetes [place] [facility] Natural father Hypertension [place] [facility] Natural mother Diabetes [place] [facility] Natural mother Heart disease [place] Natural mother Hypertension [facility] Social History Social Habit Start Date Stop Date Quantity Comments Source History SDOH [facility] St[facility] History SDOH [facility] Binge [facility] [place] [facility] Sex Assigned At [facility] St Romina kes - [facility] History SDOH 2019-08-15 2019-08-[address] [facility] - Alcohol Frequency 00:00:00 00:00:00 [facility] Tobacco Comment 2019-08-15 2019-08-15 quit 5 years [facility] - 00:00:00 00:00:00 ago [facility] Alcohol Comment 2019-08-15 2019-08-15 rarely [facility] St Romina kes - 00:00:00 00:00:00 [facility] Alcohol intake 2018-12-10 2018-12-10 Lifetime [facility] thodist 00:00:00 00:00:00 non-drinker (finding) Smoking Status [...] for 5 days. metroNIDAZO 2018- No 500mg [id number] Take 1 Julian LE (FLAGYL) 11-06 [id number] tablet Methodi 500 MG 00:00: 23:59 3D ([address] tablet 00 :00 total) by mouth 3 (three) times a day for 5 days. SUPREP 2018- No 354mL Take 2 [place] BOWEL PREP 11-04 Bottles Metho di KIT 00:00: 23:59 ([address] 17.5-3.13-1 00 :00 total) by .6 gram mouth once recon soln for 1 dose. Take as directed by physician Vital Signs Vital Name Observation Time Observation Value Comments Source Systolic blood 2019-08-26 13:10:00 121 mm[Hg] [facility] Diastolic blood 2019-08-26 13:10:00 56 mm[Hg] [facility] S [facility] Heart rate 2019-08-26 13:10:00 86 /min [facility] Body temperature 2019-08-26 13:10:00 36.83 Alysia [facility] Respiratory rate 2019-08-26 13:10:00 17 /min [facility] Oxygen saturation in 2019-08-26 13:10:00 100 /min [facility] Arterial blood by Medical Ce nter Pulse oximetry Body height 2019-08-26 11:01:00 157.5 cm [facility] Body weight Measured 2019-08-26 11:01:00 70.716 kg [facility] BMI 2019-08-26 11:01:00 28.51 kg/m2 [facility] Systolic blood 2018-11-26 10:11:00 143 mm[Hg] [facility] [facility] [place] pressure Diastolic blood 2018-11-26 10:11:00 74 mm[Hg] [place] [facility] pressure Heart rate 2018-11-26 10:11:00 67 /min [facility] Body temperature 2018-11-26 10:11:00 36.61 Alysia [place] Body height 2018-11-01 13:27:00 157.5 cm Julian [facility] Body weight 2018-11-01 13:27:00 72.576 kg [facility] BMI 2018-11-01 13:27:00 29.26 kg/m2 [facility] Height 2018-05-24 10:25:00 62 [in_us] Universi ty [...] Procedure Date / Time Performed Performing Clinician [facility] e REPORT OF PROCEDURE - 2019-08-26 13:44:[address] [facility] POCT-GLUCOSE METER 2019-08-26 13:14:00 [address] [facility] UPPER 2019-08-26 13:00:00 [facility]BIOPSY [facility] UPPER 2019-08-26 13:00:00 [facility],SUBMUCOSAL [facility] [place] [facility] INJECTION UPPER 2019-08-26 13:00:00 [facility]lesby [facility]ULTRASOUND [facility] [place] [facility] TISSUE EXAM 2019-08-26 12:43:00 Vinnie Oglesby [facility] POCT-GLUCOSE METER 2019-08-26 11:28:00 Vinnie Oglesby [facility] SURGICAL PATHOLOGY 2018-11-11 00:00:00 Betito Collazo [place] REQUEST Plan of Care Planned Activity Planned Date Details Comments Source Future Scheduled Test 2019-11-08 INFLUENZA VACCINE [email or web address] 00:00:00 [code = INFLUENZA VACCINE] Future Scheduled Test 2008 BREAST CANCER [place] 00:00:00 SCREENING [code = BREAST CANCER SCREENING] Future Scheduled Test 2008 COLONOSCOPY SCREENING [place] [facility] 00:00:00 [code = COLONOSCOPY SCREENING] Future Scheduled Test 2008 [facility] 00:00:00 (#1) [code = SHINGLES VACCINES (#1)] Future Scheduled Test 1979-09-07 Screening for [place] 00:00:00 malignant neoplasm of cervix (procedure) [code = 515722761] Future Scheduled Test 1968 DIABETIC FOOT EXAM [place] [facility] 00:00:00 [code = DIABETIC FOOT EXAM] Future Scheduled Test 1968 URINE MICROALBUMIN [place] [facility] 00:00:00 [code = URINE MICROALBUMIN] Future Scheduled Test 1958 DIABETIC RETINAL EYE [place] [facility] 00:00:00 EXAM [code = DIABETIC RETINAL EYE EXAM] Future Appointment 2019-10-07 Vinnie Oglesby MD, [facility] 10:30:[address] [address] Encounters Start End Encounter Admission Attending Care Care Encounter Source Date/Time Date/Time Type Type Clinicians Facility Department ID 2018-05-24 2018-05-24 RAFAT Apodaca [place] [id number] Univers 10:30:00 10:30:00 t; WILL, Surgery nelson ANTON[place]. [place] SOLISOIggy ans 2018-04-26 2018-04-26 RAFAT Apodaca UTP [id number] Univers 10:15:00 10:15:00 t; nelson SOLIS D.O. [place] WILL, Physici D.O. ans 2018-04-19 2018-04-[facility], UTP UTP [id number] Univers 10:00:00 10:00:00 t; nelson SOLIS D.O. [place] WILL, Physici D.O. ans 2018-03-27 2018-03-27 Appointmen MARISELA, UTP UTP [id number] Univers 10:30:00 10:30:00 t; nelson SOLIS D.O. [place] WILL, Physici D.O. ans 2018-03-22 2018-03-22 Appointmen MARISELA, UTP UTP [id number] Univers 10:30:00 10:30:00 t; nelson SOLIS D.O. [place] WILL, Physici D.O. ans 2018-03-06 2018-03-06 Appointmen FREDERICK, UTP UTP [id number] Univers 08:30:00 08:30:00 t; CYRIL MACK M.D. i ty [facility] [place] [facility] 2018-02-14 2018-02-14 [facility] MARISELA, UTP UTP [id number] Univers 08:15:00 08:15:00 t; nelson SOLIS D.O. [place] WILL, Physici D.O. ans 2018-01-11 2018-01-11 Appointlindsey MARISELA, UTP UTP [id number] Univers 10:30:00 10:30:00 t; nelson SOLIS D.O. [place] WILL, Physici D.O. [facility] Results Test Description Test Time Test Comments Results Result Comments Source Tissue Exam 2019-08-27 09:36:00 Test Item Value Reference Range Interpretation Comme nts Case Report (test code = 104) Surgical Pathology Report Case: [id number] Authorizing Provider: Vinnie Oglesby Collected: 08/26/2019 12:43 PM MD Beatrice Ordering Location: [facility] Endoscopy Received: 08/26/2019 01:56 PM Services Pathologist: Isac Cummins MD Specimen: Biopsy, Gastric, gastric polyp DIAGNOSIS (test code = 3220) s9uogSKrKCAly3xcCBQczPVnOxEiAnCzBgIaZz pc sPPtCIwvqkSrFJxvo5IkO1LkUyLhSGvoypTsFYQt ImvcavdhAKUbSPD2nfWlCNNhYUqpNOVsKDczHt0c zZBgkIakQdDlTPUpb0octbTIpjmzjLf4l3odYZUa RgH2pFPfQQigF3ftzzGisQOnEEYzIQb7lI49DQMt lN2ueVDwJSryhxDkIeU0YDxgPDEcJjJ1GLIcnLDf ESGtE2coUGZeYEwbCVZwUQfmfQTbCQE4iTlcc6F7 fCNozUJtoYptZwRuSaLrCWDBu7BuOWq3lIjcR9Mo WXZsZdR9qBOjWPGfLRnzFIPrKJHhbxM7vY17UAjz szC1iPHpj9Krs23gw577pE9aoDHtIGJ1VYOyEVSu zTOcRELsVOQ5BURtaLTvZ4x6GqVnnJVbA4F1BrFw fICgT6D5CoQfyARjP8F7RaMtiBUqFCIozJKnXm4f lKKnfUZjtc1oyw98HRD4v5TogXqwTNQ9GML7JaYc Va4wvVLvUQEfWE8wXlPwuYPhXRAxse80lDowEBcs kxBdnV8pTzZxTU9hrAsex66aFWEfSO2qpO7ldm9t lsMeNVdpaTOcySD3elwlSGS8HJPixePsj8Leu5yb JcNkoxAvH9wgE3MwCNUnMSAdHGLbFlCiuyXzb5Xn a6UslQYaaIh5u0swIXArEFWbpCsvt4fwHID6BCXd N0U0iDQsf2koQAkyLMPwbIO3yuttBCifOFPzsiV5 juhsQAltKXHljDW0ytugNPmtBWNmHdZ5yzycGDjg EAAoWIK2DPtuw326FJE5KPboMgyiGOwaXEKvtqBy bnRccGduZGVjXHBsYWluXHBsYWluXGYwXGZzMjRc bEHbYAzxh5IltqFquUhdULOyCQb0afObykhldGr6 dVCurIsnPDNflZmrqX9pMqAnDuTbGOizEQ2jTNGr T2mrbGZyQFUfTPAsM0iiAvJjwD2ooIlyJSmtqlLh IEEuIFxwbGFpblxmMVxmczIwXGxhbmcxMDMzXGhp W4guYuPeLDMyjCceQWupr9FgVVPrRWNqHnrwohMw FQz3piHpMFKFG81DW9eiTZyznOZxnnmfYLkludOj VSxiznrpSYPgAFfcN6wbFeYxAPKiyKtwESjfl9Rk KLQrBKJoIrQdOV0CFRXeXZxuiJEalystCYsnvkOb OMlvmbtbCXZoRCphJ9eiQfDeSYNgnNhwPQugr8Zz TEJtBZJnOcgtlwSaPBs5sdLnFDYXX6LQVVOnJLio XGYxXGZzMjBcbGFuZzEwMzNcaGljaFxmMVxkYmNo UFDyEGfzM4uzCfYeVzOjFOZHPLJhLCngLRFuHQBv MjBcbGFuZzEwMzNcaGljaFxmMVxkYmNoXGYxXGxv B2rnCoRsM7JqUGTfHsSaaCAfN8mjDsgyUWPxyGlw yQ1hUfWmHpDfXJkqVT7kQGBjZ0xenPSgNKUjMQOl S2esMoYqzJ7yrXxvBNismzVxQPOcgGqsxZ6aFmSq UsPaUSgmST3gDXMyQ5bncMOvTSEiRKTvI4kiCkKd lJ5ytEwkGBrtWiPsGrRfZHbnmLDfmAPmUYUmMWam XGYxXGZzMjBcbGFuZzEwMzNcaGljaFxmMVxkYmNo ZWXlOPxtP3ytKqVmWwFhKEIsSXXyMFrbWQDnDOLt MjBcbGFuZzEwMzNcaGljaFxmMVxkYmNoXGYxXGxv G6ebFsMaY1WiEIZrMvSosWAaX8qrXDPKUCDIOUIR IYVBJ4XpM3hFALGsqFrvoI0gNjWoKpMnURsfQC4a CYQxV3rzuWMnPCZuVAGiZ2gzCqMycT2eeQqpZQwa yzOwGGOGZAwIF2sMCFEQHrUNYGOYSNvIMKMAAYrK O3nFYZDxkaRqINEqUZaiNTExETDkBoVocULlKkTc PtLeiHalzHyqSNcwHpJgSNToXRrfH3rvGbJgQ9Ip WFTuEnQsaSGrZ6dqHZgccPHjgzhlZTzwobIfRVsd pfbkZKItLKciA1ffKpZzSITkkEaxHQysl2WxYCHg XGZzMjAgIFxwbGFpblxmMVxmczIwXGxhbmcxMDMz FMduO0eiKiHuNTNvuImsOKcaj7JsYKSzQUNfAaio edSwQDi7ysHhYTSREGdCRPhSADAOX6DoFYBUEPCF QhQTEOBLEOXNEX1NDFRANwmKSieXUCGwWcfwX3YL GOnZEdWUJBWJQqajC2ODBW3tfZLqFEGxxcAzv4Sv MEWcVJO8MLwgAAhzlMggoLNlxevjREraapF1NDOs YWluXGYxXGZzMjbGFuZzEwMzNcaGljaFxmMVxk QdZzVVDuUNrsH1cpCsCmRgGaKODlFQNxWFvkWWTm XGZzMjBcbGFuZzEwMzNcaGljaFxmMVxkYmNoXGYx FUznO9loJqZtI7AyTXQjDaYmvFFfT2edXAytlCRq ysiyXWsnkaNpSZtivvqdEAMlTNyyY9mjBmZbZHEv zBydDLucn9CjWOTwCSCjKoHwYNntkXYffgvyRMgr wzJlDKivnwowOCHmVWyxV3ggEnQcWCLfnBxwWHxq r0PfMNLbKHVdCggeonTrGEr2mcOpKXFNYTnSHOfD NAULX8LvWJ5LPQIKHJ5SNRHLOUJFRSiWM7cRURIE [file] YXJ9fQ== CPT Code(s) (test code = 3357) l2xzqMZkJVVnwQLyLxZqIFBpZEUgy0wdZMXg bGFu VzQiNhUvRiHcTfskdYTmABHuFdJqh2ayt963eAKq j6avGOKqNzG8aADbLWXqiRIaG150e6ywt3vaesNy oNC0KJTuDPS4RHerbjIkofH2AMynnPMvHnM7VDna bmRvRBulbkPwqdMqFte6OHBzG892RTA7uLlzw0ja YOM3RMQgBEFtDjPvUb5euDRfJ529MDMkWMOJHITy oMf6WNAbuvIklpEvvPTNz091U281a6bmMOTjxzRq mBbAezgjq9esC960GTOucEZtrfYsPhLxVCNraJIj yWL9MMGyYI2wzpvkQbWiJZ2qmdifHdFbLZ9hqzx1 GgBqSK8kiuxsWcQqOJdmZFAfggnwEJUat7Ygzyfs OB8rO3Oxx8V3pP9mnGWvHOBguSOpWaKaMLIsml4m bOSdWHkdx2IeUES7ziL6xHUvdQBjLILqBJ49Blth y4YqIexcSIE1UWPjizRdr7Gip2hzSnOgmrMtS6nz V1NaLHVpMCXtTYRqElTzafUwu6Idc1HirXRuaDx2 f8qqGKDmXJCmaUgvc0ryDCI1QHXnC7F4rUWql6bf JEkfMUNulGJ2qhwzVKpsPCAiueU5kaadHWphLOAa fVT4pscrRFfdTLDkAsF4bilyFCsmMRXtYRH2UGrt m324DUW4GQwaOrxqSRavZKFlfnQufuVvpCwpZRNu RKArPWgyKHTaHNpzEEWaLRKbMxEfrDzmgPnmhA9b IlDqHhRqMPfmLT8oGGLdC4thaZDuMHYcGWNvG0nq RdRlpY2lwOpeYHexorUfQWa7XvM5KYSjwzF2NEBi MlxwYXJ9 CLINICAL HISTORY (test code = 3356) f8lgvPTeAIUfzDQcVjAyRSFtEVEcs5s cZGVmbGFu HjPtBcWfWvMbVshrbVKxUJZjNuRqc4xzv824iGWx j8wyEYSrBoU0qBQkFHHusUGwW437YKFzTKewo8sm i2BeRNRusQGyi2D7ISYEixhkmGn1tVvuF61iy0H8 SqvtJ5foBJNwBZpxAJUaUEazmQVhMQP0SEWoZAU8 XZdkgdHsgwW3WFglgZOdSfI8IBl4f9vlcRckWAKu WSE8q3fnQFuypuAfRP7mje6sbKp7l9abacPeHPQa TMDcmZEVZFOwC2CogLotUg2ikHp1wYotApuaMJF4 Umq7NV8yvf92cbo1rHraJIQgjwizPkY9PCzqMIIo ivoaISc9BNfaNXHcfAbqYOmoNCIqljjgMXzkKDAr wNezPLznFQTjTlllYUllJJTnOBS0AMcno951GQH8 WTbal6reb0fmpXJqWzu4NRVyRxRsRjifMKcwh4Uh b9nsJUGolu5nPDZ7gCVyqXdnv1W3bFBxQXMdgNCg gnYiPTZhBeP2EFqaYQ2tzk11GSPyPJZ8zr5sqLEa rSfdciHxuIUySJjwA0YnTQOhu530YFSoG9TzFPIq x6X7meSvKoSiARVhaRP8ugK2SESfGAa4kKJnoxP6 xxWacSYuM5rjjB25OeMwnHMxC1CqsY40FqYupIAw N4UjaY71LsKfpGDrB8CquJ72IxEowVWvOSXitTAx Mg0jrMZwvRDck0UboMMqRVopU69hp495FCTruvNb I2nmzBXdlpcfhRXuzrynWUgusyVhHJUnYTVyFEwm JESlDLEvOdEffUtdkE0qZuAuVnYaIUHOek7hAZO6 prB5DYWsqHCmWVCkYY4pI11vmPvsFhoxzLU2AVTu htEHqgLiMK6hIYHzu8WdoVOxlDUrls0weDN0XIXb dUMkXINqucRbIPD1xISibxMswNKahP== SPECIMEN SOURCE (test code = 3377) l9ypmQZnFRFxuXBePcZnHYWaVERud7bc ZGVmbGFu UzZgSeUjVmLaXuibxOJiZVPmEtKjk6stv896aTUu g9abDNTfPqI7pDYyEFQkxVMxT678h4ecp2qqlaUv wSF4ZEXlVKH4ETeuoaUttbJ7HYpmgFPzVkV5TTdc arDaNHuurwTvasSaXwh4WLFhV399OWM1gZobt8il QEO8FYSqMEGwSrZaIp9jpWEwD034GUNuDKZEFNJf hPc6NKBatbAqsiJwwRVAh425O576e2clIRYwawNu nVfSoygzw2ttX514DTVnlDXktnYpRgPkBAPxwJUr xEX1NDVrZS1hozvjIxRcLJ5dpifxLnBqGN3tsqq7 HaCdZL6omnfzLsVnHDlaMWFyejkrITOjz0Sjqfjn TT9vN3Opo5F0jZ3gvSQrXVLkyBVsCzNtAXGnav9x tTFwUVnkk4VtZGI7qpS6pAZwkVQsHGBkZT59Uzmt f5UaKxgaHDM3DIOvulXwe6Rda6glLmRtqsStK7ex Q0FtQUXsJGYrERHeRhGwcoXwk5Cxc2LhuOUdmXk4 v2hlITEaHHZnjMzfx3kkLFA2BFYkP4E4hHEui7ir CNceBPJeiSD7qxuyBMiwQCRunwZ4qinxMPcmJXBp dYN7ynomNDmgVEDpEnS9iohlSRuvFIMaMVM2SMeq v190KGG8XKtrAumeZJeoAIXdymMqxnCbbJvhLBPf TBZrVVhbWDRcAWdzVOSaKJPeWqTifDnjaVlzrI0n ZaWeXkOhYDthNE6cCRNrJ8tgdGBpWLHgSBJlX8jb XhTicM1rjLxhOJanplSpWOMsEHFtw5DhaZnwL1Li hSOcV3eqRMZ2 GROSS DESCRIPTION (test code = 3366) a7wonUQmIUBknHZlEzEuRPLfWIGyr2 lcZGVmbGFu UcKcMmAvUkEjNtrisIRkRTDvKmQhp3dkc606cDEp p8xjWGRmVwG6vKWiXZEnuKIpL435SHYsMNkel3nh n9LtKGCbrFSbo4D4AONNnffrcQn7oTrbY58dn6J4 AuswF1lwGVDtXDqpKXPuACkqxICvCFF3BJEuFMF8 RZrmoeDesoH0KZzpfMIrYvT4GIo5i2dqyDvpKNAi RWA0d2czINrwimAtIL1uif8yjQg4r2ahkzPiTNEc FVKkdKRDPFSpF8RhlIurXo2deUa9xCfuPmieOUY6 Lxh7VA0mps26yzv3kExeIREfnslgThX6DPwpTSGl epjeWOo6KZwdTZIaxBkwPKnaFGIebxnjECucRNCn uMugVBtwLSNzPrpoRGwzDPHpQKE7WNqrz205WEK4 SUozd0uie3tyeAJpPlw8EWVtAwNwGxvsOSvyu4Wa u5lkNPMgol5yZJW0kWOxoUeyl8D7wEHiHJMivISu uvOlFPLmEzX6DFqeTU0zmp76WWWcHJE5qw8rbELi xXnojlTctCIgGQrpL0LqKRFkc476JLLrA1OsDZVu j9V0flSxGxJiGMHrpIH8sjO2GYHtRIq4sMWjeeW2 woRyuPGqY8vesJ15JaPjcDXfY5KonF38CgAfjABt V0BpqR21LlOdoNVeR4JzgO34KtKgcZXdLMBzhUSh Zc1fbJBrbHXur6DpnYHeQEvrE14yg476FFAxejLl M3mwkBKpsighcLLxnxpnKGodpfLnCBHcOCDnUXbw ULYgGWHaTzIpsLcxoU9dOgEuSgTrEYSUTnIoECYd JMthRJMpBMXwXsHpIoLqYAp0MPEvzY1cHo7bnXYz fS0xvVYrIEikIYI7pIExLQGwBIHfWOFgIE10D2Gu sfZnABjqKSKkJGHpbU7zUQ03bQRenzSroyBxnGat vU5kOwIlUgCzMMLyWczts8WtdSKsAsetfCK9Iorv PEYrEXwcZXEyQEJdUlHov8q7rJW0dFJcAPSmuMWh v72iiADdZXXukjvzaKvwznvjsXGdiienWBtpeiOp STVhZ9TcaXAyHxRjf3p7mVGgmRMeh15uXHexuUMi blxmMVxmczIwIGlycmVndWxhclxwbGFpblxmMFxm neIjOMM9BO4xpVsxzhLecTXhZEEyFvAmwOFdx9Gg ONHfpaMsVZDvh68jqAT5mIPleHEejHLth0CkzR0u MUUqSIF8QKYyGvF7TQYlZpMieM1hIJtjaCUmmued NDuyphGtPWJbSHVkiEGskZ3zuxCqzjPnjEEwtPC1 JJXuqH8iiJ83jiVje9eul3uuymwmCbtxqCZxlEag rqJytiAmYEZmAFV5HIvkwKXfnojrLHxyxrDuHZTD IG3tSvVwjQaglOPjsZ== MICROSCOPIC DESCRIPTION (test code = [id number]a3 [place] [id number]) SgQjLmPlMyIzCypsdHOjANTlQtIpb4icd637jFUh p6dyLTOzIuP4kDBsPDZjaRXyZ747EUEqMDjxr4kd f4UeFUNztPEro3E7CPMMpvdghRn9zDtjG95be8W7 HseaG8uzNEVmPSluRQMuISfdxEEuYSY1HLDkUEK6 DVfhbbJwwiI9TEjipBVjNsZ3JBh6y5qcyPosYWOl ZUB8c4drDQhnhaCfUQ7fmh4sbOs3g9tysnYoPKGm PDAqbLNHRJSbT0TdtNcfDt3giRd4gCkrJicoCPR3 Hdy5WJ0zxe19ofc5hKphDXXauujkDnZ7NVmxFYRs pitpJMs4VXeuXHGsqRciWIvaXCUzgrvhZObaSASk sAgvWYfdLDLjJulzTMonTQRaTSA5FHccd988YZF5 WEabn2jqp8peeYQaJzn5QNIzPpDsCzgzBTkbc1Qg g0cfNLFxdw5kCWQ5mMWqfHerk3U4dWLkYCFazBFf giZvBGHtjq25mBFjbDIfnNJrmr4rqgYfkFHnzZNl GQM1uTNidcSzDYMimTNlUNXlUC8jvEUbJJBzpH3o fdobPJNeGvKcswrsRMVomPqzrxGcGg8gnOkpXGA1 PCswO3cvpM8rDvH3SWsmC8gwxP0sOXf6ALucmCA3 SOXjbD3nEQ8irtpwf9vePzSgWB5bxgowx3bkEtRb KQ7acou6k4naNrMaWU5wxtius5gvTfSuCCqaAPYu jvueYEEld9QecebwVGBwb3ZuG4OfqCraM19zoMbc Z15lBRIsrKemjQ1wbWrioF3oPzOlWyHqXAhvsXmj bGFpblxmMFxmczIwXHBsYWluXGYxXGZzMjAgUGVy Rd0oxJZbMqfeCVNdiVBymT== SPECIAL STUDIES (test code = 3376) f2zwlIWtGBKgz2nnZXLqfWTbIzXdKzUa ZnRuYmpc sGZfTGysjaNzIKufl8PnC0UcXcRaZAbdekPlOHTh JlzyfyjfKIYtUNG9rzFpBKEaHQyfZETlMIahHc5e hLCzoYeiZeXhVYZon9mlnxMObjbkjZk3v3skCLCw WqO1lQNyTXneJ6dpwsBqlHIoX9KhtSZjoAf2a4bg MrKfDpX0lMAsSJbfW6igsfYguSGbGSXdQMo8pB79 JEVgmS7swKOhNBcsydZfIpR6KRmeFWJrEwB0MFOm eKCiPPYeH8wrKZXiOUsoWRYtZTjvmNJxGUX4pCkh z1Q9jWFhaQKxiVuhBjPeGcQpUyEJf6OmTJw1cQzr G4KaLHNnIwI9iCXcFSBhWPnxFZPpBYLeygM9aKoj pdJka50bjVJkIFVeMBZbDbNqiFniSDMdVXZWl8Ck cMbzCGE5nNw5vKxaTqggAZC1Dty6RB9cxg12iut9 sHmjXYTtwlogHjD9QXyvRTLhixrxFNq8GRquRLIr cOH1FXZzhMGiR1NpKNEpWU6eqyn7FIH0GGzcJZFu JqV4JTYlxEPoWQTvfVnjCSjyf420CBP4XxVgHX2p U7Koa6P7iJ4esCImPLFkqMObFgKxRTEmcr0caUDi MVtna4NmOQU0xbM9iEAekCLxLAVmMC12Ypkpu1Sr Vsjaq5NsW09qmTV2LJzjb4pxTL0qSkX7ruGvRIps z0bsjD6vNqM5ZPurPV9hWU9yTHDktG6zicifWXEq XeKdhedcXMAzvGbemaMgEx2hrOteNUX4VSceC2jl rL3yXcY4ULncV1npwH0vUGg5GTzfrVX8HXRlbQ8z HH8asadux1tqTRbnZYaeRIHflxW3ixH3OUPwsQTo C7ZyfC3cESSyEF5yoogvb7xeBTW1WLcnBMVfGDW7 BvJfZTTbl7Jndic1OcTkq4MytNFgWXaxY73re130 UBJogqNpM1zbhHBkoeqpaLDewewqDBrujpP8LABt XHBsYWluXGYxXGZzMjJcbGFuZzEwMzNcaGljaFxm HAyrUpMwYZElNNnbK5tzVpZbC2YcUUBuCtIcMZth TXhioAAeiWMjaQO9xB9sSQ6mHMOqbIAkQ9VbNNFd ksNkbUPbPLO5mPXwhHKlWI2bHBcprWZoq2ovq7Zj Z6qleGzcqVH2AZ7lYRYwKFHuZIgdb3CasB3gUule gMGjqgjuOBozdiGhNNtbyejgHMCrRUnkD1urDaJo KPNkwXfaTIvbg6XdIETmREOoXwrvdiXbDWf4opHk YWScikjxIBZoyBjttK7sNsWxWmMlIbnvYS3ePTWs J3ugvLXeBDUmQNIlB1erLwPorD9dhIllYJshYoIf JqFfCvOWr368ll9jGCYeeHHtjyRMuDQipA5qYQos RTdcIHgbqFZfSMsdm6smUVNgh1h9wQJaHRBuxmEj q5lhCIheipYtMAEqjCKjeOSoVECwu88gOGqpnUlr eSstXFDfo9ZywVpwi8PhJoTgEXgbg9KtS26juDMl rJFdlBdmDAOwddNcSGKtm01so8yvZNGnAqS8zEUh rFW2nCOqaCMsf1TpzGznGOBbj0bmDTPdgm3mjlas eUHrk7IorP7htvwlYBlpdJRisfNnANXza6z4oRDw KTVlAFJqCCudhGf2OOUvx817fc8dvkI7xOQxLCD0 YWlsYWJsZSBhcmUgZXZhbHVhdGVkXHBsYWluXGYx XGZzMjJcbGFuZzEwMzNcaGljaFxmMVxkYmNoXGYx ALktT6xpBpZiJ4MuWCMjTtCanTOuS1fryZZsMFWu YWluXGYxXGZzMjJcbGFuZzEwMzNcaGljaFxmMVxk RgIhCKMnOFfhR0azUcSmG4YcNQFpVkDnYGickAKh pkcqPFbstsJcRBlfbarrNFHxRQdlK6meDaInDLFo sIazSSleg7WrQSUwZFDqKrvwmxCkDFb9tdHbLVEw fiatrJXqgkakPPocjtFcISrmbaqnVFAqXAvgP5qk [file] FlqvSAT2bH== [facility] [id number] 09:36:00Surgical Pathology Report Case: [id number] Authorizing Provider: Vinnie Oglesby Collected: 08/26/2019 12:43 PM MD Beatrice [facility] Endoscopy Received: 08/26/2019 01:56 PM Services Pathologist: Isac Cummins MD Specimen: Biopsy, Gastric, gastric polyp A. STOMACH, POLYP, BIOPSY: - ANTRAL MUCOSA WITH POLYPOID FOVEOLAR HYPERPLASIA - NEGATIVE FOR HELICOBACTER PYLORI ORGANISMS BY WARTHIN STARRY STAIN - NEGATIVE FOR INTESTINAL METAPLASIA, DYSPLASIA, MALIGNANCY Signing Pathologist Direct Phone Line: [phone] signed by Isac Cummins MD on 08/27/2019 at 9:36 [id number]: upper endoscopy, biopsyPre and postop diagnosis: acute [...] evaluated Immunohistochemistry technical testing was performed at [facility], Pathology Laboratory where it was developed [...] to perform high complexity clinical laboratory testing.POC-Glucose [id number] 13:26:00 Test Item Value Reference Range Interpretation Comments POC-Glucose Meter (test 122 mg/dL 70-110 H : TE STED AT [facility] code = 1538) [address] [facility], 770 30: Bag Worker/Techni wendy ID = [id number] for Ilda Rodriguez Lab Interpretation (test Abnormal code = 07740-0) [facility] [place] [id number] 13:26:00 Test Item Value Reference Range Interpretation Comments POC-GLUCOSE METER 122 mg/dL 70-110 H : [facility] (BEAKER) (test code = [facility], 1538) [address]: Bag Worker/Techni wendy ID = [id number] for Ilda Bailey POCT-GLUCOSE [id number] 11:40:00 Test Item Value Reference Range Interpretation Comments POC-GLUCOSE METER 137 mg/dL 70-110 H : [facility] (BEAKER) (test code = [facility], 1538) [address]: Bag Worker/Techni wendy ID = [id number] for KATIE CANTU COLON SEGMENT RESEC.NOT [id number] 19:21:00 RUN DATE: 11/14/18 [facility] PAGE 1 RUN TIME: 810 Specimen Inquiry RUN USER: INTERFACE PATIENT: DAISY HAMMER LOC: [facility] U #: [id number] AGE/SX: 58/F ROOM: [facility] RE11/11/18REG DR: Betito Collazo MD : 56 BED: A DIS: 11/13/18 STATUS: DIS Sharla TLOC: SPEC #: [id number] RECD: 11/11/18 STATUS: BRITTNY JIANG #: [id number] CRISTINO: 11/11/18- SUBM DR: Betito Collazo MD ENTERED: 11/11/18 SP TYPE: COLONR NIDIA RICHARDSON: ORDERED: LEVEL V SURGICA CODES: [id number] - COLON, NOS PROCEDURES: LEVEL V SURGICA (Incomplete) TISSUES: COLON, NOS - RECTOSIGMOID DIVERTICULITIS CLINICAL HISTORY 58 year old, diverticulitis (wpd) FINAL DIAGNOSIS Designated "rectosigmoid diverticulitis", segmental resection: - diverticular disease with peridiverticular fibrosis - intestinal rings - unremarkable CPT code(s): 36043 pkg/wpd 11/13/18 GROSS DESCRIPTION ANATOMIC SOURCE OFTISSUE [...] and contains unremarkable mucosa and surrounding tissue. Home School Liaison Officer sections are submitted in A2. The largest [...] Specimen Inquiry RUN USER: INTERFACE SPEC #: [id number] PATIENT: DAISY HAMMER #[id number] (Continued) GROSS DESCRIPTION (Continued) 1.0 cm and containing green-brown fecal material. No discrete perforationor discoloration in those areas are noted. Home School Liaison Officer sections of the intestine with the diverticula are submitted in A3 - A8. Examination of attached adipose tissue reveals no discrete lymph nodes. Home School Liaison Officer sections are submitted in A9 - A16. /wpd 11/11/18 @ 3286 MICROSCOPIC DESCRIPTION The specimen consists of a segment of rectosigmoid colon containing numerous diverticula which extend through the muscularis into the rectosigmoid adipose tissue. Foci of fibrosis are present adjacent to the diverticula. No granulomas, dysplasia or neoplasia are identified. The intestinal rings are unremarkable. pkrashad/wpd 11/13/18 Signed Deena Storm 11/13/18 192 ENDOF REPORT [id number] 07:10:00 Test Item Value Reference Range Interpretation Comments GLUBED (test code = GLUBED) 180 mg/dL 65-110 H COMPREHENSIVE METABOLIC [id number] 05:48:00 Test Item Value Reference Range Interpretation [...] 106 units/L 46-116 N code = ALKP) [id number] 05:48:00 Test Item Value Reference Range Interpretation Comments MAGNESIUM (test code = MAG) 1.8 mg/dL 1.8-2.4 N CBC W/AUTO [id number] 04:49:00 Test Item Value Reference Range Interpretation [...] REQUIRED (test NORMAL NORMAL code = PLTMR) [id number] 21:57:00 Test Item Value Reference Range Interpretation Comments GLUBED (test code = GLUBED) 278 mg/dL 65-110 H [id number] 17:26:00 Test Item Value Reference Range Interpretation Comments GLUBED (test code = 292 mg/dL 65-110 H Hypoglyc emic Protoco GLUBED) [id number] 12:11:00 Test Item Value Reference Range Interpretation Comments GLUBED (test code = GLUBED) 131 mg/dL 65-110 H [id number] 07:23:00 Test Item Value Reference Range Interpretation Comments GLUBED (test code = GLUBED) 110 mg/dL 65-110 N CHEMISTRY 7 [id number] 05:23:00 Test Item Value Reference Range Interpretation [...] code = CA) 7.8 mg/dL 8.4-10.2 L [id number] 05:23:00 Test Item Value Reference Range Interpretation Comments MAGNESIUM (test code = MAG) 1.8 mg/dL 1.8-2.4 N CBC W/AUTO [id number] 05:19:00 Test Item Value Reference Range Interpretation [...] REQUIRED (test NORMAL NORMAL code = PLTMR) [id number] 22:07:00 Test Item Value Reference Range Interpretation Comments GLUBED (test code = GLUBED) 171 mg/dL 65-110 H [id number] 17:41:00 Test Item Value Reference Range Interpretation Comments GLUBED (test code = GLUBED) 157 mg/dL 65-110 H [id number] 13:26:00 Test Item Value Reference Range Interpretation Comments GLUBED (test code = GLUBED) 154 mg/dL 65-110 H [id number] 06:54:00 Test Item Value Reference Range Interpretation Comments GLUBED (test code = GLUBED) 143 mg/dL 65-110 H CHEMISTRY 7 [id number] 13:07:00 Test Item Value Reference Range Interpretation [...] = CA) 8.5 mg/dL 8.4-10.2 N HGB [id number] 12:51:00 Test Item Value Reference Range Interpretation Comments HEMOGLOBIN (test code = HGB) 13.6 g/dL 10.7-13.9 N HEMATOCRIT (test code = HCT) 40.3 % 32.1-42.1 N
--- NOTE | 2019-09-29 19:26 | ER ---
Nurse's Notes [facility] Name: Robyn Carrion Age: 59 yrs Sex: Female : 1960 Arrival Date: 09/29/2019 Time: 18:16 Bed 23 Private MD: Diagnosis: Bitten by dog;Cellulitis of hand Presentation: 09/28 18:20 Chief complaint: Patient states: "I was here yesterday, I got bit by my dog on my R ca1 hand. Right now my hand is swollen, red, throbbing and there is pus coming out of it". Coronavirus screen: Proceed with normal triage. Patient denies a cough. Patient denies shortness of breath or difficulty breathing. Patient denies measured and/or subjective temperature greater than 100.4F prior to today's visit. Patient denies travel on a cruise ship or to a country the [facility] currently lists as an affected area. Patient denies contact with known and/or suspected case of COVID-19. Ebola Screen: Patient negative for fever greater than or equal to 101.5 degrees Fahrenheit, and additional compatible Ebola Virus Disease symptoms Patient denies exposure to infectious person. Patient denies travel to an Ebola-affected area in the 21 days before illness onset. No symptoms or risks identified at this time. Initial Sepsis Screen: Does the patient meet any 2 criteria? No. Patient's initial sepsis screen is negative. Does the patient have a suspected source of infection? No. Patient's initial sepsis screen is negative. Risk Assessment: Do you want to hurt yourself or someone else? Patient reports no desire to harm self or others. Onset of symptoms was September 29, 2019. 18:20 Method Of Arrival: Ambulatory ca1 18:20 Acuity: DARA 4 ca1 Triage Assessment: 18:24 General: Appears in no apparent distress. uncomfortable, Behavior is calm, cooperative. ls4 18:24 Pain: Complains of pain in left hand Pain currently is 9 out of 10 on a pain scale. ls4 Quality of pain is described as burning, tender, throbbing. Historical: - Allergies: 18:23 HYDROCODONE; ca1 - Home Meds: 18:23 Amitiza Oral [Active]; atorvastatin Oral [Active]; Creon Oral [Active]; Dicyclomine ca1 Oral [Active]; Lantus Sub-Q [Active]; lisinopril Oral [Active]; - PMHx: 18:23 fernando esophageal disease; Diabetes - NIDDM; cricopharyngeal spasm; High Cholesterol; ca1 Hyperlipidemia; - PSHx: 18:23 Cholecystectomy; Hysterectomy; ca1 - Immunization history:: Adult Immunizations up to date. - Social history:: Smoking status: Patient denies any tobacco usage or history of. Screenin:49 Abuse screen: Denies threats or abuse. Denies injuries from another. Nutritional ls4 screening: No deficits noted. Tuberculosis screening: No symptoms or risk factors identified. Fall Risk None identified. Vital Signs: 18:20 BP 144 / 77; Pulse 105; Resp 16 S; Temp 97.2(O); Pulse Ox 100% on R/A; Weight 69.85 kg ca1 (R); Height 5 ft. 2 in. (157.48 cm) (R); Pain 8/10; 19:30 BP 150 / 71; Pulse 78; Resp 1; Temp 98.2(O); Pulse Ox 99% ; Pain 7/10; ls4 20:30 BP 148 / 69; Pulse 76; Resp 18; Pulse Ox 99% on R/A; Pain 5/10; ls4 21:30 BP 152 / 70; Pulse 76; Resp 18; Temp 98.3(O); Pulse Ox 99% on R/A; Pain 3/10; ls4 18:20 Body Mass Index 28.17 (69.85 kg, 157.48 cm) ca1 ED Course: 18:16 Patient arrived in ED. ag5 18:22 Triage completed. ca1 18:23 Arm band placed on right wrist. ca1 18:32 Fifi Cuevas, RN is Primary Nurse. ls4 19:00 Felicia Morris FNP-C is PHCP. snw 19:00 Ciro Salinas MD is Attending Physician. snw 19:23 Berry Suero MD is Hospitalizing Provider. snw 20:27 Initial lab(s) drawn, by co, sent to lab. X-ray(s) taken. Inserted saline lock: 20 ls4 gauge in right antecubital area, using aseptic technique. Blood collected. Patient maintains SpO2 saturation greater than 95% on room air. 20:48 Hand Left 3 View XRAY Sent. ls4 20:48 Chest Single View XRAY Sent. ls4 20:49 Patient has correct armband on for positive identification. Bed in low position. Call ls4 light in reach. Side rails up X 1. paintings restorer on. Pulse ox on. NIBP on. Verbal reassurance given. 20:50 No provider procedures requiring assistance completed. ls4 Administered Medications: 20:27 Drug: fentaNYL (PF) 25 mcg Route: IVP; Site: right antecubital; ls4 21:10 Follow up: Response: No adverse reaction; Pain is decreased ls4 20:28 Drug: Insulin Regular Human 5 units {Co-Signature: shalini (Raven Paul RN).} Route: IVP; ls4 Site: right antecubital; 21:01 Follow up: Response: No adverse reaction; Marked relief of symptoms ls4 20:48 Drug: NS 0.9% 1000 ml Route: IV; Rate: 75 ml/hr; Site: right antecubital; ls4 09/29 01:52 Follow up: IV Status: Completed infusion; IV Intake: 300ml ls4 09/28 20:48 Drug: Zosyn 3.375 grams Route: IVPB; Infused Over: 60 mins; Site: right antecubital; ls4 21:18 Follow up: Response: No adverse reaction; IV Status: Completed infusion; IV Intake: ls4 100ml 21:27 Drug: Zofran (Ondansetron) 4 mg Route: IVP; Site: right antecubital; ls4 21:45 Follow up: Response: No adverse reaction; Marked relief of symptoms ls4 21:30 Drug: NS 0.9% 500 ml Route: IV; Rate: bolus; Site: right antecubital; ls4 09/29 01:51 Follow up: IV Status: Completed infusion; IV Intake: 500ml ls4 Intake: 09/28 21:18 IV: 100ml; Total: 100ml. ls4 Outcome: 19:25 Decision to Hospitalize by Provider. snw 22:20 Patient left the ED. ls4 Signatures: Felicia Morris, HYDRAULICS TEACHER-C HYDRAULICS TEACHER-Csnw Fifi Cuevas RN HAIDER ls4 Kalpana Stewart RN RN ca1 Gaskin, Ajare ag5 Raven Paul RN, ea
--- NOTE | 2019-09-29 19:26 | EDPHYS ---
Physician Documentation [facility] Name: Robyn Carrion Age: 59 yrs Sex: Female : 1960 Arrival Date: 09/29/2019 Time: 18:16 Bed 23 Private MD: ED Physician Ciro Salinas HPI: 09/28 19:19 This 59 yrs old Female presents to ER via Ambulatory with complaints of Wound snw Check. 19:19 Patient presents to ED for recheck of: puncture wound, dogbite from Sunday. Pt seen snw here, given Tetanus, Rx for Augmentin. Returns today with redness, increased edema, increased pain. States areas draining pus. The affected area is on the left hand. Previous treatment: The patient was initially treated 2 day(s) ago, the care was rendered at [facility], Outpatient prescription(s): The patient was given prescription(s) for Augmentin. Progress: The patient reports + infection. The patient has not experienced similar symptoms in the past. as noted. Historical: - Allergies: 18:23 HYDROCODONE; ca1 - Home Meds: 18:23 Amitiza Oral [Active]; atorvastatin Oral [Active]; Creon Oral [Active]; Dicyclomine ca1 Oral [Active]; Lantus Sub-Q [Active]; lisinopril Oral [Active]; - PMHx: 18:23 fernando esophageal disease; Diabetes - NIDDM; cricopharyngeal spasm; High Cholesterol; ca1 Hyperlipidemia; - PSHx: 18:23 Cholecystectomy; Hysterectomy; ca1 - Immunization history:: Adult Immunizations up to date. - Social history:: Smoking status: Patient denies any tobacco usage or history of. ROS: 19:19 Constitutional: Negative for fever, chills, and weight loss, Eyes: Negative for injury, snw pain, redness, and discharge, ENT: Negative for injury, pain, and discharge, Neck: Negative for injury, pain, and swelling, Cardiovascular: Negative for chest pain, palpitations, and edema, Respiratory: Negative for shortness of breath, cough, wheezing, and pleuritic chest pain, Abdomen/GI: Negative for abdominal pain, nausea, vomiting, diarrhea, and constipation, Back: Negative for injury and pain, : Negative for injury, bleeding, discharge, and swelling, Skin: Negative for injury, rash, and discoloration, Neuro: Negative for headache, weakness, numbness, tingling, and seizure, Psych: Negative for depression, anxiety, suicide ideation, homicidal ideation, and hallucinations. 19:19 MS/extremity: Positive for injury or acute deformity, erythema, pain, swelling, pus draining from dogbite areas to left hand. Exam: 19:12 Constitutional: This is a well developed, well nourished patient who is awake, alert, snw and in no acute distress. Head/Face: Normocephalic, atraumatic. Eyes: Pupils equal round and reactive to light, extra-ocular motions intact. Lids and lashes normal. Conjunctiva and sclera are non-icteric and not injected. Cornea within normal limits. Periorbital areas with no swelling, redness, or edema. ENT: Nares patent. No nasal discharge, no septal abnormalities noted. Tympanic membranes are normal and external auditory canals are clear. Oropharynx with no redness, swelling, or masses, exudates, or evidence of obstruction, uvula midline. hoarse voice, Mucous membranes moist. Neck: Trachea midline, no thyromegaly or masses palpated, and no cervical lymphadenopathy. Supple, full range of motion without nuchal rigidity, or vertebral point tenderness. No Meningismus. Chest/axilla: Normal chest wall appearance and motion. Nontender with no deformity. No lesions are appreciated. Cardiovascular: Regular rate and rhythm with a normal S1 and S2. No gallops, murmurs, or rubs. Normal PMI, no JVD. No pulse deficits. Respiratory: Lungs have equal breath sounds bilaterally, clear to auscultation and percussion. No rales, rhonchi or wheezes noted. No increased work of breathing, no retractions or nasal flaring. Abdomen/GI: Soft, non-tender, with normal bowel sounds. No distension or tympany. No guarding or rebound. No evidence of tenderness throughout. Back: No spinal tenderness. No costovertebral tenderness. Full range of motion. Neuro: Awake and alert, GCS 15, oriented to person, place, time, and situation. Cranial nerves II-XII grossly intact. Motor strength 5/5 in all extremities. Sensory grossly intact. Cerebellar exam normal. Normal gait. Psych: Awake, alert, with orientation to person, place and time. Behavior, mood, and affect are within normal limits. 19:12 Skin: Appearance: normal except for affected area, cellulitis, that is moderate, on the left hand, injury, bite(s), deep, of the left hand. Vital Signs: 18:20 BP 144 / 77; Pulse 105; Resp 16 S; Temp 97.2(O); Pulse Ox 100% on R/A; Weight 69.85 kg ca1 (R); Height 5 ft. 2 in. (157.48 cm) (R); Pain 8/10; 19:30 BP 150 / 71; Pulse 78; Resp 1; Temp 98.2(O); Pulse Ox 99% ; Pain 7/10; ls4 20:30 BP 148 / 69; Pulse 76; Resp 18; Pulse Ox 99% on R/A; Pain 5/10; ls4 21:30 BP 152 / 70; Pulse 76; Resp 18; Temp 98.3(O); Pulse Ox 99% on R/A; Pain 3/10; ls4 18:20 Body Mass Index 28.17 (69.85 kg, 157.48 cm) ca1 MDM: 19:01 Patient medically screened. snw 19:17 Data reviewed: vital signs, nurses notes. Data interpreted: Pulse oximetry: on room air snw is 100 %. Interpretation: normal. Counseling: I had a detailed discussion with the patient and/or guardian regarding: the historical points, exam findings, and any diagnostic results supporting the discharge/admit diagnosis, the presence of at least one elevated blood pressure reading (>120/80) during this emergency department visit, lab results, radiology results, the need for further work-up and treatment in the hospital. Physician consultation: Mo De La Torre MD was called at 19:18, was contacted at 19:18, regarding consult, would like admission per Dr. Berry De La Torre would like pt NPO post MN. 09/28 19:12 Order name: C-Reactive Protein; Complete Time: 20:26 snw 09/28 19:12 Order name: Basic Metabolic Panel; Complete Time: 20:26 snw 09/28 19:12 Order name: Blood Culture Adult (2) snw 09/28 19:12 Order name: CBC with Diff; Complete Time: 20:35 snw 09/28 19:12 Order name: Ckmb; Complete Time: 20:26 snw 09/28 19:12 Order name: CPK; Complete Time: 20:26 snw 09/28 19:12 Order name: Lactate; Complete Time: 20:26 snw 09/28 19:12 Order name: LFT's; Complete Time: 20:26 snw 09/28 19:12 Order name: Lipase; Complete Time: 20:26 snw 09/28 19:12 Order name: Procalcitonin; Complete Time: 21:10 snw 09/28 19:12 Order name: Protime (+inr); Complete Time: 20:46 snw 09/28 19:12 Order name: Ptt, Activated; Complete Time: 20:46 snw 09/28 19:33 Order name: Basic Metabolic Panel EDMS 09/28 19:33 Order name: Basic Metabolic Panel EDMS 09/28 19:26 Order name: Hand Left 3 View XRAY snw 09/28 19:26 Order name: Chest Single View XRAY snw 09/28 19:26 Order name: EKG; Complete Time: 19:27 snw 09/28 19:33 Order name: NPO EDMS 09/28 19:33 Order name: CBC with Automated Diff EDMS 09/28 19:33 Order name: CBC with Automated Diff EDMS 09/28 19:33 Order name: NT PRO-BNP EDMS 09/28 19:33 Order name: NT PRO-BNP EDMS 09/28 21:10 Order name: RAD; Complete Time: 21:10 EDMS 09/28 21:10 Order name: RAD; Complete Time: 21:10 EDMS 09/28 19:12 Order name: Accucheck; Complete Time: 20:49 snw 09/28 19:12 Order name: Cardiac monitoring; Complete Time: 20:49 snw 09/28 19:12 Order name: EKG - Nurse/Tech; Complete Time: 20:49 snw 09/28 19:12 Order name: IV Saline Lock - Large Bore; Complete Time: 20:48 snw 09/28 19:12 Order name: Labs collected and sent; Complete Time: 20:48 snw 09/28 19:12 Order name: O2 Per Protocol; Complete Time: 20:48 snw 06/22 19:12 Order name: O2 Sat Monitoring; Complete Time: 20:48 snw 09/28 19:12 Order name: Urine Dipstick-Ancillary (obtain specimen); Complete Time: 20:48 snw 09/28 19:26 Order name: EKG - Nurse/Tech snw Administered Medications: 20:27 Drug: fentaNYL (PF) 25 mcg Route: IVP; Site: right antecubital; ls4 21:10 Follow up: Response: No adverse reaction; Pain is decreased ls4 20:28 Drug: Insulin Regular Human 5 units {Co-Signature: shalini Paul RN).} Route: IVP; ls4 Site: right antecubital; 21:01 Follow up: Response: No adverse reaction; Marked relief of symptoms ls4 20:48 Drug: NS 0.9% 1000 ml Route: IV; Rate: 75 ml/hr; Site: right antecubital; ls4 09/29 01:52 Follow up: IV Status: Completed infusion; IV Intake: 300ml ls4 09/28 20:48 Drug: Zosyn 3.375 grams Route: IVPB; Infused Over: 60 mins; Site: right antecubital; ls4 21:18 Follow up: Response: No adverse reaction; IV Status: Completed infusion; IV Intake: ls4 100ml 21:27 Drug: Zofran (Ondansetron) 4 mg Route: IVP; Site: right antecubital; ls4 21:45 Follow up: Response: No adverse reaction; Marked relief of symptoms ls4 21:30 Drug: NS 0.9% 500 ml Route: IV; Rate: bolus; Site: right antecubital; ls4 09/29 01:51 Follow up: IV Status: Completed infusion; IV Intake: 500ml ls4 Disposition: 06:40 Co-signature as Attending Physician, Ciro Salinas MD. [email or web address] Disposition: 09/29/19 19:25 Hospitalization ordered by Berry Suero for Inpatient Admission. Preliminary diagnosis are Bitten by dog, Cellulitis of hand. - Bed requested for Telemetry/MedSurg (Inpatient). - Status is Inpatient Admission. ls4 - Condition is Stable. - Problem is an acute exacerbation. - Symptoms have worsened. Signatures: Dispatcher [employer] EDYessy Guzman RN RN Felicia Cano FNP-C BEE-Csnw Fifi Cuevas, RN RN ls4 AcKalpana marroquin RN RN [facility] Ciro Salinas MD MD 7 Raven Paul RN ea Corrections: (The following items were deleted from the chart) 09/28 19:48 19:25 Hospitalization Ordered by Berry Suero MD for Inpatient Admission. Preliminary dw diagnosis is Bitten by dog; Cellulitis of hand. Bed requested for Telemetry/MedSurg (Inpatient). Status is Inpatient Admission. Condition is Stable. Problem is an acute exacerbation. Symptoms have worsened. snw 22:20 19:48 09/29/2019 19:25 Hospitalization Ordered by Berry Suero MD for Inpatient ls4 Admission. Preliminary diagnosis is Bitten by dog; Cellulitis of hand. Bed requested for Telemetry/MedSurg (Inpatient). Status is Inpatient Admission. Condition is Stable. Problem is an acute exacerbation. Symptoms have worsened. dw
[2019-09-29] MEDS ORDERED: ACETAMINOPHEN 500 MG TAB PO PRN (19:28)
[2019-09-29] MEDS ORDERED: GLUCAGON 1 MG/VIAL IM PRN (19:28)
[2019-09-29] MEDS ORDERED: ALBUTEROL 2.5 MG/3 ML NEB SOL NEB PRN (19:28)
[2019-09-29] MEDS ORDERED: D50W 25 GM/50 ML SYRINGE/VIAL IV PRN (19:28)
[2019-09-29] MEDS ORDERED: IPRATROPIUM BROM 0.5MG/2.5ML NEB PRN (19:28)
[2019-09-29 20:08] LABS: Absolute Lymphocytes (CBC) 2.1 K/uL (0.7-4.9); Basophils % 0.6 % (0-1.3); Hematocrit 40.1 % (36.0-45.0); Lymphocytes % 15.7 % (15.3-44.8); MPV 8.4 fL (7.6-11.3); RBC Red Blood Cell Count 4.41 M/uL (3.86-4.86)
[2019-09-29 20:09] LABS: Protime INR 0.98
[2019-09-29 20:20] LABS: Albumin 3.4 g/dL (3.4-5.0); Bilirubin Direct 0.1 mg/dL (0-0.2); Bilirubin Total 0.4 mg/dL (0.2-1.0); C-Reactive Protein 40.1 mg/L (<3.00); CKMB Creatine Kinase MB 1.6 ng/mL (0.3-3.6); Potassium 3.5 mmol/L (3.5-5.1); Protein, Total 8.4 g/dL (6.4-8.2)
[2019-09-29] MEDS ORDERED: FENTANYL CITR 100 MCG/2 ML ONE (20:25)
[2019-09-29] MEDS ORDERED: NA CHLORIDE 0.9% 1,000 ML ONE (20:25)
[2019-09-29] MEDS ORDERED: ONDANSETRON 4 MG/2 ML VIAL ONE (20:36)
[2019-09-29] MEDS ORDERED: INSULIN -REGULAR HUMAN 50 UNIT/0.5 ML ML SQ SCH ×2 (21:00→22:45)
--- NOTE | 2019-09-29 21:06 | RAD REPORT ---
EXAM DESCRIPTION: RAD - Chest Single View - 09/29/2019 9:01 pm CLINICAL HISTORY: preop Chest pain. COMPARISON: Chest Pa And Lat (2 Views) dated 08/31/2019; Chest Single View dated 06/20/2019; Chest Sin gle View dated 10/13/2018; Chest Single View dated 12/28/2017 FINDINGS: Portable technique limits examination quality. The lungs are grossly clear. The heart is normal in size. No displaced fractures. IMPRESSION: No acute intrathoracic process suspected.
--- NOTE | 2019-09-29 21:07 | RAD REPORT ---
EXAM DESCRIPTION: RAD - Hand Left 3 View - 09/29/2019 9:01 pm CLINICAL HISTORY: ANIMAL BITE COMPARISON: Hand Left 3 View dated 09/28/2019 FINDINGS: Soft tissue swelling is seen along the dorsum of the hand. No fracture, dislocation or rad iopaque foreign body.
[2019-09-29] MEDS ORDERED: INSULIN -REGULAR HUMAN 50 UNIT/0.5 ML ML ONE (21:59)
[2019-09-29 22:37] VITALS: BMI 27.8
[2019-09-29] MEDS: NA CHLORIDE 0.9% 1,000 ML IV SCH (22:47)
[2019-09-29] MEDS: INSULIN -REGULAR HUMAN 50 UNIT/0.5 ML ML SQ SCH (23:51)
[2019-09-30] MEDS: PIPER/TAZO/NS 3.375gm 3.375 GM/100 ML BAG IVPB SCH ×3 (01:48→16:04)
[2019-09-30] MEDS ORDERED: PIPER/TAZO/NS 3.375gm 3.375 GM/100 ML BAG ONE (01:51)
[2019-09-30 04:51] LABS: Absolute Lymphocytes (CBC) 2.7 K/uL (0.7-4.9); Basophils % 0.7 % (0-1.3); Hematocrit 35.9 % (36.0-45.0); MPV 8.3 fL (7.6-11.3); RBC Red Blood Cell Count 3.94 M/uL (3.86-4.86)
[2019-09-30 05:13] LABS: Potassium 3.6 mmol/L (3.5-5.1)
[2019-09-30] MEDS: INSULIN -REGULAR HUMAN 50 UNIT/0.5 ML ML SQ SCH ×3 (06:00→21:41)
[2019-09-30] MEDS: NA CHLORIDE 0.9% 1,000 ML IV SCH ×2 (06:06→16:04)
[2019-09-30] MEDS: FENTANYL CITR 100 MCG/2 ML IV PRN ×2 (06:22→16:10)
[2019-09-30] MEDS ORDERED: D50W 25 GM/50 ML SYRINGE/VIAL IV PRN ×2 (11:17→17:46)
[2019-09-30] MEDS ORDERED: GLUCAGON 1 MG/VIAL IM PRN ×2 (11:17→17:46)
[2019-09-30] MEDS ORDERED: FENTANYL CITR 100 MCG/2 ML ONE (13:35)
[2019-09-30] MEDS ORDERED: MIDAZOLAM HCL 2 MG/2 ML INJ ONE (13:35)
[2019-09-30] MEDS ORDERED: LIDOCAINE 1% MPF 5 ML VIAL ONE (13:35)
[2019-09-30] MEDS ORDERED: propofoL 200 MG/20 ML VIAL IV ONE (13:35)
--- NOTE | 2019-09-30 13:46 | HP ---
Date of Admission: 09/29/2019 History Of Present Illness: A 59-year-old female who presented to the emergency room with left hand swelling and pain. She gave history that she had a dog bite 2 days ago. She came to the emergency r oom, was prescribed Augmentin and was given a tetanus booster dose. However, her left hand became mo re swollen and painful and red. She came to the emergency room and was admitted for cellulitis after a dog bite in the left hand, which failed home treatment. The patient has mild nausea and vomiting. Review of Systems: Cardiovascular: No complaint. Respiratory: No complaint. Gastrointestinal: Mild nausea. No vomiting. No other complaints. Genitourinary: No complaints. Skeletomuscular: As above. Neurological: No complaints. Past Medical History: 1.Type 2 diabetes. 2.Hyperlipidemia. 3.Gastroesophageal reflux disease with Valverde's esophagus. 4.The patient has had hysterectomy and cholecystectomy. Social History: No smoking, alcohol, or IV drug abuse history. Family History: Noncontributing. Allergies: HYDROCODONE, CODEINE. Physical Examination: Vital Signs: Blood pressure 120/60, pulse 54, temperature 97.5. Heart: Regular rate and rhythm. Chest: Clear to auscultation. Abdomen: Soft, nontender, nondistended. Bowel sounds are normoactive. Extremities: No edema. No cyanosis. Peripheral pulses are felt. Her left hand shows dorsal swelli ng and erythema and tenderness. Neurological: Alert, oriented, nonfocal. Grossly intact. Diagnostic Data: Chest x-ray, no acute pathology. Left hand x-ray showed soft tissue swelling in th e dorsum of the hand. Laboratory Data: White cell count 11.1, hemoglobin 12.2, hematocrit 35.9, platelets 221. Chemistry; chloride 110, BUN 25, creatinine , GFR 75. Blood sugar fingersticks noted below 170 and m ore than 100. Assessment And Plan: 1.Left hand cellulitis after a dog bite. The patient is being admitted, put on IV Zosyn. I have co nsulted surgery. We will keep the hand also elevated. 2.Type 2 diabetes. We will put the patient on regular insulin sliding scale. Continue home medicat ions. 3.Rest of her medical problems stable. Look orders for details. MFS/MODL Voice ID: [id number]
[2019-09-30] MEDS ORDERED: KETOROLAC 30 MG/ML INJ ONE (14:04)
[2019-09-30] MEDS: HYDROMORPHONE HCL 1 MG/ML INJ ONE ×2 (14:49→14:54)
[2019-09-30] MEDS ORDERED: HYDROMORPHONE HCL 1 MG/ML INJ ONE (14:56)
[2019-09-30] MEDS: ONDANSETRON 4 MG/2 ML VIAL IV PRN ×2 (16:11→19:55)
[2019-09-30] MEDS ORDERED: ALBUTEROL 2.5 MG/3 ML NEB SOL NEB PRN (17:00)
[2019-09-30] MEDS ORDERED: IPRATROPIUM BROM 0.5MG/2.5ML NEB PRN (17:00)
[2019-09-30] MEDS: ATORVASTATIN 40 MG TAB PO SCH (21:36)
[2019-09-30] MEDS: PANTOPRAZOLE 40MG TABLET PO SCH (21:36)
[2019-09-30] MEDS: DICYCLOMINE HCL 10 MG CAP PO SCH (21:36)
[2019-09-30] MEDS ORDERED: PROMETHAZINE INJ 25 MG/ML AMP IV PRN (22:22)
--- NOTE | 2019-10-01 00:13 | OP ---
Surgeon: Mo De La Torre MD Lining Sewer: Trey. Preoperative Diagnosis: Dog bite to the left hand. Postoperative Diagnosis: Dog bite to the left hand. Procedure Performed: Debridement of skin and subcu tissue, release of the flexor sheath. Anesthesia: General. Description Of Procedure: After satisfactory induction of general anesthesia, the left hand was prep ped with Betadine scrub, Betadine paint, dry sterile drapes applied in the usual manner. The arm was elevated. Tourniquet inflated to 250 mmHg. Hand was placed on roll lock table. The webspace on th e volar surface of the index and middle had open wound right at the finger palmar junction. This was extended proximally zigzag and distally mid axial. Flap was elevated with scalpel and tenotomy scis sors. There was pus present. Cultures were taken. The dog bite had violated the flexor sheath. Th e hand was placed in range of motion. No injury to the tendon itself, but the sheath was torn and op en. Wound was irrigated with about 0.5 L of dilute Betadine solution. The hand was turned over. Th ere was a dorsal laceration over the proximal phalanx of the index finger. Elliptical incision was p laced around the entry site. It communicated in buttonhole nature to the other volar incision. A Pe nrose drain was passed through the wound as well as irrigated with 0.5 L of Betadine solution. Tourn iquet released. Electrocautery was used for hemostasis. Wound was packed with Betadine-soaked quart er-inch Nu Gauze, 2-inch Rian, and Kerlix. The patient tolerated the procedure well and returned to Recovery. EVARISTO/BABATUNDE Voice ID: [id number] Report ID: [id number]
[2019-10-01] MEDS: PIPER/TAZO/NS 3.375gm 3.375 GM/100 ML BAG IVPB SCH ×3 (00:30→16:32)
[2019-10-01] MEDS: FENTANYL CITR 100 MCG/2 ML IV PRN ×2 (00:31→13:20)
[2019-10-01] MEDS: NA CHLORIDE 0.9% 1,000 ML IV SCH ×2 (04:05→12:14)
[2019-10-01] MEDS: MEPERIDINE HCL 25 MG/ML SYR IM PRN ×2 (05:01→20:44)
[2019-10-01 05:44] LABS: Basophils % 0.4 % (0-1.3); Lymphocytes % 23.1 % (15.3-44.8); MPV 8.1 fL (7.6-11.3); RBC Red Blood Cell Count 3.86 M/uL (3.86-4.86)
[2019-10-01 05:49] LABS: Potassium 3.9 mmol/L (3.5-5.1)
[2019-10-01] MEDS: INSULIN -REGULAR HUMAN 50 UNIT/0.5 ML ML SQ SCH ×4 (07:30→20:29)
[2019-10-01] MEDS: LIPASE/PROTEASE/AMYLASE CAP PO SCH ×5 (08:09→20:28)
[2019-10-01] MEDS: DICYCLOMINE HCL 10 MG CAP PO SCH ×2 (08:10→20:29)
[2019-10-01] MEDS: PANTOPRAZOLE 40MG TABLET PO SCH ×2 (08:10→20:28)
[2019-10-01] MEDS: INSULIN GLARGINE 100 UNITS/ML SQ SCH (08:34)
--- NOTE | 2019-10-01 12:26 | EKG ---
Test Date: 2019-09-29 Test Time: 22:05:29 Software Quality Test Engineer: VIVIANA MEASUREMENT RESULTS: Intervals: Rate: 67 MA: 162 QRSD: 78 QT: 400 QTc: 422 [place]: P: 36 MA: 162 QRS: 59 T: 74 INTERPRETIVE STATEMENTS: Normal sinus rhythm ST & T wave abnormality, consider anterior ischemia Abnormal ECG Compared to ECG 06/20/2019 21:39:36 ST (T wave) deviation now present Possible ischemia now present Sinus tachycardia no longer present Electronically Signed On 10-01-19 12:22:40 CDT by Tj Castro
--- NOTE | 2019-10-01 12:45 | PN ---
Subjective: The patient is doing well, ambulating. She had a procedure yesterday on her left hand w here incision and drainage was done and the draining tube is in place and the hand is stressed. Objective: Vital Signs: Patient's blood pressure 130/65, pulse 56, temperature 98.3. Heart: Regular rate and rhythm. Chest: Clear to auscultation. Abdomen: Soft, benign. Neurological: Alert and oriented. Grossly intact. Laboratory Data: White cell count down to 8.7. The rest of her CBC is noted. Blood sugar fingersti cks noted BUN 10 and creatinine 0.75. Assessment And Plan: Left hand cellulitis status post incision and drainage. She is doing well. We will continue the patient on current antibiotics and management for her chronic medical problems. E xpect discharge the patient in the morning. She continues to do well and it is okay with surgery. MFS/MODL Voice ID: [id number] Report ID: [id number]
--- NOTE | 2019-10-01 15:57 | CON ---
History Of Present Illness: Patient is a 59-year-old female who is right-hand dominant, bit by her own dog on Sunday, about 2 days ago, came to the emergency room, was admitted and consults we re made. Tetanus up-to-date. Past Medical History: Patient has history previously of gallbladder, previous medical history of ashwini betes and heart failure. Medications: She is on multiple medications. Allergies: NO ALLERGIES OTHER THAN CODEINE. Social History: Does not smoke. Does not drink. Past Surgical History: Previous surgery has been gallbladder. Physical Examination: She has a laceration over the dorsum of the index finger of the left hand, transverse, approximately a centimeter long and a pus is draining in the webspace of the index and middle of left hand. Assessment: Dog bite to the hand. Plan: Debridement, incision, and drainage. TRAM Voice ID: [id number] Report ID: [id number]
[2019-10-01] MEDS: ATORVASTATIN 40 MG TAB PO SCH (20:29)
[2019-10-02] MEDS: PIPER/TAZO/NS 3.375gm 3.375 GM/100 ML BAG IVPB SCH ×3 (01:09→16:28)
[2019-10-02] MEDS: NA CHLORIDE 0.9% 1,000 ML IV SCH ×3 (03:49→18:00)
[2019-10-02] MEDS: FENTANYL CITR 100 MCG/2 ML IV PRN ×2 (06:39→16:27)
[2019-10-02] MEDS: INSULIN -REGULAR HUMAN 50 UNIT/0.5 ML ML SQ SCH ×4 (07:30→21:12)
[2019-10-02] MEDS: LIPASE/PROTEASE/AMYLASE CAP PO SCH ×5 (08:00→21:11)
[2019-10-02] MEDS: INSULIN GLARGINE 100 UNITS/ML SQ SCH (09:00)
[2019-10-02] MEDS ORDERED: propofoL 200 MG/20 ML VIAL IV ONE (10:38)
[2019-10-02] MEDS ORDERED: LIDOCAINE 1% MPF 5 ML VIAL ONE (10:39)
[2019-10-02] MEDS ORDERED: FENTANYL CITR 100 MCG/2 ML ONE (10:39)
[2019-10-02] MEDS ORDERED: MIDAZOLAM HCL 2 MG/2 ML INJ ONE (10:39)
[2019-10-02] MEDS ORDERED: dexAMETHasone 10 MG/ML VIAL ONE (11:17)
[2019-10-02] MEDS ORDERED: KETOROLAC 30 MG/ML INJ ONE (11:18)
[2019-10-02] MEDS ORDERED: ONDANSETRON 4 MG/2 ML VIAL ONE (11:31)
[2019-10-02] MEDS: HYDROMORPHONE HCL 1 MG/ML INJ ONE ×2 (11:45→11:52)
[2019-10-02] MEDS: PANTOPRAZOLE 40MG TABLET PO SCH ×2 (12:47→21:11)
[2019-10-02] MEDS: DICYCLOMINE HCL 10 MG CAP PO SCH ×2 (12:47→21:10)
[2019-10-02] MEDS: lisinopriL 20 MG TAB PO SCH (15:04)
--- NOTE | 2019-10-02 17:55 | PN ---
Subjective: The patient is doing well. Has no new complaints. Objective: Vital Signs: Blood pressure 160/79, pulse 62, temperature 97.3. Extremities: Left hand is dressed with the drain coming out. The rest of her physical exam is no change. Assessment/plan: Left hand cellulitis status post surgical incision and drainage. The patient is go ing for a second procedure today. Meanwhile, we will continue her on the current antibiotics and cur rent home medications and care. MFS/MODL Voice ID: [id number] Report ID: [id number]
[2019-10-02] MEDS: ATORVASTATIN 40 MG TAB PO SCH (21:10)
--- NOTE | 2019-10-02 21:34 | OP ---
Surgeon: Mo De La Torre MD Chain Dyer: Trey. Preoperative Diagnosis: Open wound of the left hand. Postoperative Diagnosis: Open wound of the left hand. Procedure Performed: Debridement of skin and subcutaneous tissue, simple closure of 9 cm wound. Anesthesia: General. Operative Note: After satisfactory induction of general anesthesia, the hand was prepped with Betadi ne scrub and Betadine paint. Dry sterile drapes applied in usual manner. The arm was elevated, exsan guinated with an Esmarch, tourniquet inflated to 250 mmHg. Hand placed on a roll lock table. Index finger had dorsal open wound and volar open wound. These wounds were debrided with tenotomy scissors , forceps and curette. A jet lavage irrigated with 3 L of dilute Betadine solution. Tourniquet rele ased. Electrocautery used for hemostasis. The wounds were closed with vertical mattress and simple sutures of 4 Prolene. The dorsal wound about 3 cm and the volar wound was 6 cm. Dressing of Xerofor m, 2 inch Rian Kerlix. The patient tolerated procedure well and returned to Recovery. EVARISTO/BABATUNDE Voice ID: [id number] Report ID: [id number]
[2019-10-03] MEDS: FENTANYL CITR 100 MCG/2 ML IV PRN ×2 (00:15→10:25)
[2019-10-03] MEDS: PIPER/TAZO/NS 3.375gm 3.375 GM/100 ML BAG IVPB SCH ×2 (00:19→09:16)
[2019-10-03] MEDS: NA CHLORIDE 0.9% 1,000 ML IV SCH (04:29)
[2019-10-03] MEDS: INSULIN -REGULAR HUMAN 50 UNIT/0.5 ML ML SQ SCH ×2 (07:30→11:30)
[2019-10-03] MEDS ORDERED: lisinopriL 20 MG TAB PO SCH (09:00)
[2019-10-03] MEDS: lisinopriL 20 MG TAB PO SCH (09:13)
[2019-10-03] MEDS: INSULIN GLARGINE 100 UNITS/ML SQ SCH (09:14)
[2019-10-03] MEDS: DICYCLOMINE HCL 10 MG CAP PO SCH (09:14)
[2019-10-03] MEDS: LIPASE/PROTEASE/AMYLASE CAP PO SCH ×3 (09:15→13:01)
[2019-10-03] MEDS: PANTOPRAZOLE 40MG TABLET PO SCH (09:16)
[2019-10-03 09:36] VITALS: O2SAT 96
[2019-10-03 13:08] VITALS: BP 176/74; TEMP 97
--- NOTE | 2019-10-04 01:54 | DS ---
Date of Discharge: 10/03/2019 History: The patient is a 59-year-old female, who was admitted to the hospital because of left hand cellulitis that has failed outpatient treatment after she visited to the emergency room from a dog bi te. She was given tetanus and oral antibiotic. She still had worsening of her infection in the dors um of her left hand and was admitted for that. Past Medical History: As per admit note. Social History: As per admit note. Family History: As per admit note. Medications: As per admit note. Allergies: PER ADMIT NOTE. Physical Examination: As per admit note. Diagnostic Data: As per admit note. Hospital Course: The patient was admitted to the hospital. Surgery was consulted and she had 2 debr idement procedures and drainage on her left hand. She was also put on IV Zosyn 3.75 g q.8 hours. We continued her home medications for chronic medical illnesses and put her on regular insulin sliding scale for her diabetes. The patient is doing well. She is afebrile, and her medical problems are co ntrolled. Her blood pressure was 170/74, pulse 67, temperature 97 degrees Fahrenheit. I think if it is okay and wound cultures, blood cultures had no growth until now, I think if it is okay with Surge ry, the patient could be discharged on oral antibiotics. The choice of that will be to General Surge ry and to follow up with Surgery for wound change and dressing and for chronic medical problems. She will follow up with me next week. Look or angelica for details. MFS/MODL Voice ID: [id number] Report ID: [id number]
== END 2019-10-03 16:14 | disposition home health service (06) | DRG 581 ==
LOC: ER 18:13 → ERHOLD 19:42 → 2ND 21:46
PROVIDERS: ADMIT Internal Medicine; ATTEND Internal Medicine
PROC: 0JBK0ZZ Excision of Left Hand Subcutaneous Tissue and Fascia, Open Approach (ICD-10-PCS; principal; 2019-09-30 13:45)
PROC: 0JDK0ZZ Extraction of Left Hand Subcutaneous Tissue and Fascia, Open Approach (ICD-10-PCS; 2019-10-02)
DX: L03.114 Cellulitis of left upper limb (principal); E11.9 Type 2 diabetes mellitus without complications; E78.5 Hyperlipidemia, unspecified; K21.0 Gastro-esophageal reflux disease with esophagitis; K22.70 Barrett's esophagus without dysplasia; W54.0XXA Bitten by dog, initial encounter; Z20.828 Contact with and (suspected) exposure to other viral communicable diseases; Z88.5 Allergy status to narcotic agent; Z79.4 Long term (current) use of insulin; Z79.899 Other long term (current) drug therapy; Z90.710 Acquired absence of both cervix and uterus; Z90.49 Acquired absence of other specified parts of digestive tract
CPT/HCPCS: 36415; 71045; 80048; 80076; 82550; 82553; 82947; 83605; 83690; 83880; 84145; 85025; 85610; 85730; 86140; 87040; 87070; 87075; 87205; 88305; 90471; 90714; 93005; 94760; 96361; 96365; 96375; 99284; 99285; J1100; J1170; J1815; J2175; J2250; J2405; J2543; J2550; J2704; J3010; J7030; U0002

== ENCOUNTER 2019-10-18 11:35 | Emergency (ER) | payer OTHER ==
--- OUTSIDE RECORDS SUMMARY | 2019-10-18 11:38 | XMS REPORT | Clinical Summary ---
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 Specimen Tissue Narrative Performed At This result has an attachment that is no t available. 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
--- OUTSIDE RECORDS SUMMARY | 2019-10-18 11:38 | XMS REPORT | Clinical Summary ---
:1960 Author Organization [facility] Address [address] [place] [address] Care Team Providers Name Role Phone Unavailable [...] ENDOSCOPY,BIO PSY 08/26/2019 Anesthesia Event Gastroenterology Santo Burgess, MARGARET 08/26/2019 Hospital Encounter Gastroenterology Vinnie Shea MD 08/15/2019 Hospital Encounter Pre-Admission Testing 08/15/2019 Travel after 10/17/2018 Social History Tobacco Use Types Packs/Day Years [...] are i n the results section. after 10/17/2018 Results REPORT OF PROCEDURE - ENDOSCOPY URL (08/26/2019 1:44 PM CDT) Narrative Performed At This result has an attachment that is no t available. POC-Glucose meter (08/26/2019 1:14 PM CDT)Only the most recent of2 results within the time period is included. POC-Glucose Meter 122 (H)Comment: : TESTED 70 - 110 mg/dL [facility] [address] [place] [address], [id number]: Supervisor Cytology/Lotteries Agent ID = [id number] for Ilda Rodriguez Specimen Blood Performing Organization Address City/State/Zipcode Phone Number [address] [address] CENTER Tissue Exam (08/26/2019 12:43 PM CDT) Case Report Surgical Pathology Report Case: [id number] [facility] Authorizing Provider:Vinnie Ortega Collected: 08/26/2019 12:[address] [facility] MD Beatrice [facility] Endoscopy Received:08/26/2019 01:56 PM Services Pathologist: Isac Cummins MD Specimen:Biopsy, Gas tric, gastric polyp DIAGNOSIS A. STOMACH, POLYP, BIOPSY: [facility] WITH POLYPOID FOVEOLAR HYPERPL [facility] - NEGATIVE FOR HELICOBACTER PYLORI ORGANISMS B Y WARTHIN STARRY STAIN - NEGATIVE FOR INTESTINAL METAPLASIA, DYSPLASI A, MALIGNANCY Signing Pathologist Direct Phone Line: [phone] CPT Code(s) [address] [facility] ALTH [address] [facility] CLINICAL HISTORY Procedure: upper endoscopy, biopsy [facility] Pre and postop diagnosis: acute pancreatitis [facility] SPECIMEN SOURCE A. Biopsy, gastric [facility] GROSS DESCRIPTION A. Received in formalin labeled [facility] with the patient's name, [facility] accession number and "gastric biopsy", with the additional description "gastric polyp" is one irregular winston-pink piece of mucosal-covered soft tissue measuring 0.4 x 0.3 x 0.2 cm. The specimen is submitted in toto following filtration in cassette A1. RAFA/pl MICROSCOPIC DESCRIPTION Performed. [facility] The interpretation of this c ase included the use of immunohistochemistry or special stains. [facility] Control Slides Examined: In -house known positive controls were evaluated along with the test tissue. These control slides run alongside of the patients sample show appropriate staining. Internal posit charlene and negative controls when available are karla gonzáles Immunohistochemistry technjet dai testing was performed at [facility], Pathology Laboratory where it was developed and its performance characteristics were determined. It has not be en cleared or approved by [facility] [place]. Food and Drug Administration. The FDA [...] Tissue Performing Organization Address City/State/Zipcode Phone Number [facility] [address] [place] [address] CENTER after 10/17/2018 Insurance Payer Benefit Plan / Group Subscriber ID Type Phone A ddress MEDICARE MEDICARE A B xxxxxxxxxxx Medicare MEDICAID MEDICAID [facility] xxxxxxxxx Medicaid
--- OUTSIDE RECORDS SUMMARY | 2019-10-18 11:39 | XMS REPORT | Continuity of Care Document ---
:1960 Author Organization [facility] t Address [address] [place] [address] Care Team Providers Name Role Phone Paradise [...] A xxxxxxxxxxx ROSETTA S tawny Crump BxxxxxxxxxxxMedicare - [facility] MEDICAIDMEDICAID OF xxxxxxxxx ROSETTA S t Theron [place]xxxxxxxxxMedicaid [facility] MEDICAREMEDICARE PART A xxxxxxxxxxx 2001 [place] AND 00:00:00 [facility] Bxxxxxxxxxxx2001[facility], [place]Medicare Problems Condition Condition Condition Status Onset Resolution Last Treating Co mments Source Name Details Category Date Date Treatment Clinician Date Hyperlipid Hyperlipid Problem Active [facility] [place] [facility] Hypertensi Hypertensi Problem Active U nivers on on [facility] [place] [facility] Diabetes Diabetes Problem Active [facility] [place] [facility] Follow up Follow up Problem Active Uni vers [facility] [place] [facility] Allergies, Adverse Reactions, Alerts Allergy Allergy Status Severity Reaction(s) Onset Inactive Treating Comm ents Source Name Type Date Date Clinician Hydrocod Propensi [facility] - aminophe adverse 00:00: Medical n reaction 00 Center s hydrocod DA Active [facility] [place] Hydrocod Propensi Active [place] one ty [...] Other Uni versity of Member Heart problem [place] [facility] Natural father Diabetes [place] [facility] Natural father Hypertension [place] [facility] Natural mother Diabetes [place] [facility] Natural mother Heart disease [place] [facility] Natural mother Hypertension [facility] Social History Social Habit Start Date Stop Date Quantity Comments Source History SDOH [facility] - Alcohol Std Drinks [facility] History SDOH [facility] - Alcohol Binge [facility] [place] [facility] Sex Assigned At [facility] kes - [facility] Center History SDOH 2019-08-15 2019-08-[address] [facility] - Alcohol Frequency 00:00:00 00:00:00 [facility] Tobacco Comment 2019-08-15 2019-08-15 quit [address] [facility] - 00:00:00 00:00:00 ago [facility] Alcohol Comment 2019-08-15 2019-08-[address] [facility] [address] [facility] kes - 00:00:00 00:00:00 [facility] Alcohol intake 2018-12-10 2018-12-10 Lifetime [facility] thodist 00:00:00 00:00:00 non-drinker (finding) Smoking Status [...] for 5 days. metroNIDAZO 2018- No 500mg [id number] Take 1 Julian LE (FLAGYL) 11-06 [id number] tablet Methodi 500 MG 00:00: 23:59 3D ([address] tablet 00 :00 total) by mouth 3 (three) times a day for 5 days. SUPREP 2018- No 354mL Take 2 [place] BOWEL PREP 11-04 Bottles Metho di KIT 00:00: 23:59 ([address] 17.5-3.13-1 00 :00 total) by .6 gram mouth once recon soln for 1 dose. Take as directed by physician Vital Signs Vital Name Observation Time Observation Value Comments Source Systolic blood 2019-08-26 13:10:00 121 mm[Hg] [facility] Diastolic blood 2019-08-26 13:10:00 56 mm[Hg] [facility] Heart rate 2019-08-26 13:10:00 86 /min [facility] Body temperature 2019-08-26 13:10:00 36.83 Alysia [facility] Respiratory rate 2019-08-26 13:10:00 17 /min [facility] Oxygen saturation in 2019-08-26 13:10:00 100 /min [facility] Arterial blood by Medical Ce nter Pulse oximetry Body height 2019-08-26 11:01:00 157.5 cm [facility] Body weight Measured 2019-08-26 11:01:00 70.716 kg [facility] BMI 2019-08-26 11:01:00 28.51 kg/m2 [facility] Systolic blood 2018-11-26 10:11:00 143 mm[Hg] [place] [facility] pressure Diastolic blood 2018-11-26 10:11:00 74 mm[Hg] [place] [facility] pressure Heart rate 2018-11-26 10:11:00 67 /min [facility] Body temperature 2018-11-26 10:11:00 36.61 Alysia [place] [facility] Body height 2018-11-01 13:27:00 157.5 cm [facility] Body weight 2018-11-01 13:27:00 72.576 kg [place] [facility] BMI 2018-11-01 13:27:00 29.26 kg/m2 [place] [facility] Height 2018-05-24 10:25:00 62 [in_us] Universi ty [...] Procedure Date / Time Performed Performing Clinician [facility] e REPORT OF PROCEDURE - 2019-08-26 13:44:[address] [facility] - ENDOS[facility] URL [facility] POCT-GLUCOSE METER 2019-08-26 13:14:00 [address] [facility] - [facility] UPPER 2019-08-26 13:00:00 [facility],BIOPSY [facility] UPPER 2019-08-26 13:00:00 [facility],SUBMUCOSAL [facility] [place] [facility] INJECTION UPPER 2019-08-26 13:00:00 [facility]les[facility]ULTRASOUND [facility] [place] [facility] TISSUE EXAM 2019-08-26 12:43:00 Reny Vinnie Oglesby [facility] POCT-GLUCOSE METER 2019-08-26 11:28:00 Vinnie Ogles[address] [facility] SURGICAL PATHOLOGY 2018-11-11 00:00:00 Betito Collazo [place] [facility] REQUEST Plan of Care Planned Activity Planned Date Details Comments Source Future Scheduled 2019-11-08 INFLUENZA VACCINE [place] [facility] Test 00:00:00 [code = INFLUENZA VACCINE] Future Scheduled 2008 BREAST CANCER [facility] thodist Test 00:00:00 SCREENING [code = BREAST CANCER SCREENING] Future Scheduled 2008 COLONOSCOPY SCREENING [place] [facility] Test 00:00:00 [code = COLONOSCOPY SCREENING] Future Scheduled 2008 SHINGLES VACCINES (#1) [place] [facility] Test 00:00:00 [code = SHINGLES VACCINES (#1)] Future Scheduled 1979-09-07 Screening for [facility] thodist Test 00:00:00 malignant neoplasm of cervix (procedure) [code = [id number]] Future Scheduled 1968 DIABETIC FOOT EXAM [place] [facility] Test 00:00:00 [code = DIABETIC FOOT EXAM] Future Scheduled 1968 URINE MICROALBUMIN [place] [facility] Test 00:00:00 [code = URINE MICROALBUMIN] Future Scheduled 1958 DIABETIC RETINAL EYE [place] [facility] Test 00:00:00 EXAM [code = DIABETIC RETINAL EYE EXAM] Encounters Start End Encounter Admission Attending Care Care Encounter Source Date/Time Date/Time Type Type Clinicians Facility Department ID 2018-05-24 2018-05-24 RAFAT Apodaca King [id number] Univers 10:30:00 10:30:00 t; WILL, Surgery nelson ANTONIO D.O. [place] SOLIS D.O. ans 2018-04-26 2018-04-26 RAFAT [place] [id number] Univers 10:15:00 10:15:00 t; nelson SOLIS D.O. [place] Adrian SOLIS D.O. ans 2018-04-19 2018-04-19 RAFAT [place] [id number] Univers 10:00:00 10:00:00 t; WILL, ity o f FELINSKI, D.O. [place] WILL, Physici D.O. ans 2018-03-27 2018-03-27 [facility] [place]ELA, UTP UTP [id number] Univers 10:30:00 10:30:00 t; WILL, ity o f FELINSKI, D.O. [place] WILL, Physici D.O. ans 2018-03-22 2018-03-22 [facility] MARISELA, [facility] UTP [id number] Univers 10:30:00 10:30:00 t; WILL, ity o f FELINSKI, D.O. [place] WILL, Physici D.O. ans 2018-03-06 2018-03-06 [facility] [place]ICK, [facility] UTP [id number] Univers 08:30:00 08:30:00 t; CYRIL MACK M.D. i ty of [place] N[facility] [place] Physic[facility] ans 2018-02-14 2018-02-14 [facility] MARISELA, [facility] UTP [id number] Univers 08:15:00 08:15:00 t; WILL, ity o f FELINSKI, D.O. [place] WILL, Physici D.O. ans 2018-01-11 2018-01-11 [facility] MARISELA, [facility] UTP [id number] Univers 10:30:00 10:30:00 t; WILL, ity o f FELINSKI, D.O. [place] WILL, Physici D.O. ans Results Test Description Test Time Test Comments Results Result Comments Source Tissue Exam 2019-08-27 09:36:00 Test Item Value Reference Range Interpretation Comme nts Case Report (test code = 104) Surgical Pathology Report Case: [id number] Authorizing Provider: Vinnie Oglesby Collected: 08/26/2019 12:43 PM MD Beatrice Ordering Location: [facility] Endoscopy Received: 08/26/2019 01:56 PM Services Pathologist: Isac Cummins MD Specimen: Biopsy, Gastric, gastric polyp DIAGNOSIS (test code = 3220) d2bjnXFoMQVdr0qhFVDjlWYiZtXhYvEyKgYdWq pc iAYmSUteoxTqENdwe1CtL5UhAzRfCNlgplOfVBQt GtyabdcyGPYiQTC5upIwRVKjCEekMWVeXZxgQr8j tFBhyAppObEyZZCum8muyeHHyrbaiYb4r6vvFKNy BlT1vMSeIQhsH1mzyjNvvFQnOZVwXSz0cQ68OSXq eH3bzQRiFYgbnqHuBtE3QRnaUSUkYlD9NNHvnXBx BCTdF2rnZOQnKQkwWTQpMDbdhGBdQDB7oHauh4P4 iBYyaYVvlVmkJrCfSxCfYLNCe1GpJSm0bCpvJ8Nh WOSgDdH2vFHdJKAoNBpzBFXdINRkuaS5lC55IDfi ykB6kPPbh5Yzy95el338kR4ofDJnJWH9LQReIBTb pEVbOOQpIIU2PBAqdXHgE8x5HwJulZTpH8J9HjMz bTSjN1H9GvTqdFQaX9Z4XsIlqINzKAFsyREmKj6w aPEvjJMibc8dxw16KDM5i3ZoyIuxXJV3QZZ6YgYu Zc9dgJAwYOIyQX1mWcLtiRGuZOJoze16kUdoBOtx fyFqwR2lWiLzAX9mrJhrw46oWYZkIV3dkF4exb2l zrKuQHczoUFrrTN8nltlDYN0HQJyiaSjo3Ywc5mm OaBwawSvZ5voI4KjSMOrWWUpQKGvKmDvteQvd4Vp b6VolLGhtKs6k0jfVUPcHXXekXpmq5iyDJO3UUBc A2Y8rHBdo6kiFUlaGCEfnAE9alzwOQtnVCFndjM0 idrgQDrmNLVegNJ2qhxwUQjfIILyIsT5znwqOWks PXWsDQI8OGxvc501TKL9HSagYrhqSJhzZXZvbpBa bnRccGduZGVjXHBsYWluXHBsYWluXGYwXGZzMjRc hIEwSLtuu8KiqvNzaGixVFByNHl0ijTzqntzuDo9 qKFhuMibUQTzjPbieF0ePlVyWnZdTCmrFO3kCGJy V5fvnZIhSYWlPXQpS3wmFzMoxY7ztKauZAdqysIr IEEuIFxwbGFpblxmMVxmczIwXGxhbmcxMDMzXGhp Q1urCnWvHJYzlYjeUYqin1QbXPWsAIRwEeqmnqVd RHi2srAvRNFWP67BL3tuXFvczYWlrrspDHblwoDo JKcsdkisNAZuVAnhW0gvMyWdWUXgfAuwAKwzf7Jj MMMdQYClByVgSE4AVTLbFVgqvNNmqlxmVFmnchFy NPpjfaqhQTJnYXxxU0jzImDiTZNzzYlaMSeta3Xu NRKsKMGaEftsyoWdEGx6qzPoIFAAH4BLZESsOPbo XGYxXGZzMjBcbGFuZzEwMzNcaGljaFxmMVxkYmNo EYMrOVomT9gaOvUuQzAfKYTVBXJlKJrbONNbQZSp MjBcbGFuZzEwMzNcaGljaFxmMVxkYmNoXGYxXGxv V6yyMvOsS0HaFVYhIaTsqULuC8ksGrwoCPLjaYff kE6sYgFkTeLfEDjbRY7wEATbM3kznEFqWFLjSGRs G1csYeWxaL5moLnxHVsqrtPzIZCyqOqrmA4lUhPy DsEvGVelPD9sUWWkF2pzyYJcMQHePBFtO9acKkLg uZ2yrXlyQCgaCwEnGqLeFDpyvTWztPLoUASfGHmk XGYxXGZzMjBcbGFuZzEwMzNcaGljaFxmMVxkYmNo YHHbCWfyE0meQyJjNiFlVALlLTZmDQfuBJUwFKGm MjBcbGFuZzEwMzNcaGljaFxmMVxkYmNoXGYxXGxv P8ipQuUgS8OcXAJnWyTzxTLbV4pyLSCOSLYSADWQ RHPLH6KzE9gFXPWsyHanqI6wWwBoPqYzVAiwDQ9u YUJaD8cyyZAmLKUzICErD0yyLiLygW3piAtjJUrb ixZcDXMJDOxLA6tVDPBDKkBKNSMNWNjLPNNOBLpX A2kMYUPsxiWuYVUhMLlkGBMhAPZeLnUjgFFbKmVq VsTqeYrynMnnDKrhNbNmJBQrOXorQ2ciVjQzY6Lj PKUxDqAzxXArZ2uoNFednUQsdbyuMCxilyPjHEdi ynayEQIqRIjcP5shZzUzALJglSqxECcqu6AaUUNc XGZzMjAgIFxwbGFpblxmMVxmczIwXGxhbmcxMDMz JMkpQ7uxTdWqDSVenEetTMiqw2XkZYXiIQTsVzoa lsVnCAx9wuXiRMQYFRlPSPeZOHVSS9VhXSLNDXAS GgWZQKDRVFSFLK5VNOHHBgxDHrkHBPEqAoiiS5CY KAfPCwZKQJBEMmqeS6BUAB1ltIUbYOKjceOfd4Ar OBAdIIO5XOviYNikxUuthHKzesvrVYakutL0MMBg YWluXGYxXGZzMjBcbGFuZzEwMzNcaGljaFxmMVxk IwCnHWKmBBzcT5bxAeRkCqYxGMTtYLOqHDqvEJAi XGZzMjBcbGFuZzEwMzNcaGljaFxmMVxkYmNoXGYx GVciF4rwRtPrE2HcXGVgVuVqxTRfU2egNRffiLMz bhxdZFasgjMrLAoefjjjYKQrTZixZ6xqJuIvUVJq dIchSJnli4EwPOYpITLpEpJjSSjsgEHvtubqTCgm ynBxCGfqhfxtEMIaCXfvZ5iyWjOmENQfxWefDQvg v6FqAMEpPBWvTkwkurAmESx1nrVnVJWAKLeSMAzG PLYDE8HdIC5JIJFMUP8KPUSVJLPLIQgMZ8eLVUPQ [file] YXJ9fQ== CPT Code(s) (test code = 3357) y6varRChZCXlqGYgHbFnUITmZGLea7fuDRXv bGFu RhZkOqGvNmVlVqjuyEJxYHItGlTou0ssf759lMFq j2ekJROjAoE6jEHlERSpaMOzU474r1vzi0vvxhVd gAB8GDWzCTQ6YAfxhiHwmxH4WAwjcENgJcW0XKkn yuTzOXxubyMbshTyQay7HYBwF406RSL7bRclu7mk ULC4DQRxNSOrBkDrIb3kkLNwO758KDPxKPYCTJDl kUo6UKLamlYgnuDgtABBc230S310f3jqPZEkbqHr oXbQgprjj3viW010JPFblSVefvBuDxUfFLJmbGOi cHP5KYAiLE4wuvzvUpOtNW7nixaiObGbFF6iynt3 JuJlNQ7uqdkqWyOkDEgkHBCdzniaPJJty8Ohtbtn WP5lE8Tzw8J2iI7fnDReRKVsnOTfAeDhVSQyiz1u qWJwJPzov3PyZTL8azU0tCIwoZIdYSUbVN36Iblr r3RdNxdiVWW3KHKinvPvb3Brp6rlLrYstpCzH1dy I3JiQISxPUCmLIAaIcKzyiNny1Fcc4HswJXklHy9 h3naVSJdMTPnrSfcy0hdUNC0EADkZ9P0xMXsx3zk PSarRYWzeKZ8rtouWSflSTRwckF6xjlmBYqiKUMn zGB2cfldMQulWGSuZnS2ofizBMxpNNReAQD0RMoq e550IJE7YDqyMbcdSCgaHXIectFcydLgkOhyKRBr ITDgXWcwFROxGFspXNTcDITiDtBmaAuyiGbwxZ3w BdGpGzHvNVqtLX7kEHKbQ7wrlUWxCRBxPJXwV8iq SdKdsG0ikMpgRVquziBqMLk6NkG0ZHAydyO8BNYc MlxwYXJ9 CLINICAL HISTORY (test code = 3356) w6ttxBEiLPPmaPGjYeLvZKRaFPLus4a cZGVmbGFu NfFkBqMcEfYuYuwxdLGhZEXkItBed5vmt960iFCj n0rmOXWoRmS2uSAiYRQrtNAlD910XZZlAYyuv7sx w7XtXVPgrSFwr1E3LIVKyikxqKa9lCkvU66az7M1 EpnxO5auZVKqHZtkACZfLUxlkIHiZIM6TWDaDVU1 BRpdlwLihtA8CLctoJXcJxH8HZa3d6hzkXztKNZi JLZ2t9wjENhawxKvDF9fai7dgNf7k6myaxYvUJVe GIXnlLHCDFOeU9GvwVxbPb8veMi8lBttBiowDTG9 Vbm2RC7nbh68jfm7aTuuBUKnqdeqEuJ4RTtdXYJu mktlEMm1LWfyIUAifYwiGSzkNEDduoscUUgyVYCp pMbqSYkvQOUmVjzjKQppVYCvXHR1AKzyz725FUX3 QUxia4epa3pmeWCfJta2DKFrYgTbTilgLQuvf7Fb i6hoEDIwex8aDHQ1fPGlmYrba4T0iNGtQXRncNHt vmDvVZAyIgQ0SClqQB8zys83SQQhTHT1wm2jkEFj sRphbyVtgEYaHScbO2ViXKIvn470KPTeT7FcCBRd c9D3txDeBiEwNIShrKA4wlM2LYEyYNg7tQOjyfE1 jaSbtNRkZ0ijoW79ZnXcaFTgJ3PlyP72JbFrrIZz G1EupI61KdRqcRDsH5FniX79BvVxpXXxEBYiyGPi Ub9hyFEnjCKhl4KbuUNrIByuG72me419VTNustJn V9desYMevexsyLKiclamJDcciuIeETXvPXTiWKga MDEeOLYoDlRbrYewqD8oHgAfKePxHAQAwd7rYUP3 hvV4GLNhlKChBFUwLD7rC75dhHcaXqnqfOA7FGRc cfSCmnSeVC7eLRWzw4SkaYIzmDIqbx4fhWB0EHGb kDMdRSOiqcAlLEJ5tFHhciQocJPisX== SPECIMEN SOURCE (test code = 3377) e5egvWGbFUPgxEObAtUlHUCyPSEtj3uk ZGVmbGFu UaMrJdHnVtMjPterfYDcOQKeRuQna4rof843oLTv g0baEMKkUiR1fSIdFGBhpQRaQ426n9rok6fmgoRc jOK3GFZhXGS1DXtwpaPnglW0HTpniTJiQmS1WQrh szXkNNqwlnSoqvXcOsl5PSOdC506GUP9dJymk5ze OZS3ESWwOYFlGeIgLa1haBApZ514HRYfHQGOUXVa sCz5FZBckjWuptXqmBBQl801A947t7atZCGnqbAt xRpRwfait0tvD360BZCdeKFoweRiMqOaYGVlnQEg dHM4PFFkIH1znswzWgWtZH4zvogzXwVjHX5mjie8 BvQuLW6rdopcTcIuJMtrYRNbvznoDNUtj9Hrpcfy ZX1fG2Idz3U2wE5nbCWuMOZeePKbJnOqHZAufx5g iYWiDLdxh3TcEFI6afW3pSOwsTVtECEbEY38Nkng t0SfKczrUGR0IBMpnbFkq7Cbb4cyVmEdkzMmY7ff R9PnCDWkCBKeLNVaOsBbsnFvz8Kxl6ZwdWYajQa7 a7rqHZGkAZXlfRzmq0fkPCQ7FNVlL3V9hCOuv5qk QNiqUNNacII8nxguJVovUYDcplL8ziuxYPneZBFo iWK0ulyaTPcsTVLcLpJ5pkfgFXthDVIuDQT0KUnj f956RES6EEnzZdqqVVmyIPGdqaUjatVioIqgYJHr HTFhZZyqEATvNWzwESEgUTSzIcIsrHjhlHapmN5i QkZwPqMbKYlgRR0mMSHeD9eyzYTmHRUhFDKgT3np FbVeaX0vyZjdEGbanoWcEQEmTCLvm5QejJpzR0Ec mKIeW0ekZBT6 GROSS DESCRIPTION (test code = 3366) f2dbbPNqIEItpHSgPvHbJMSkAOJsi1 lcZGVmbGFu KjRmTeWuPhKdLpoueMEpMXRiGeMee2dca417gMEs t8zgHBOhYyJ3aXFrYOGsfPUlA599SJEjIXbqk0wr l2FnTJFqvIBpq1H6WUTErdlxqTf8hXblO27pc8Q3 AjrnQ0aaIISqGWmsGJXqPPdmqBDrPUE2PZLdNGU0 QDppmdUyjrL9CRsovNQnKsW1HFi1d8icePamZLYr PXD2d5bmOPcyhsKyCZ1nbm9pnCw2s7zcdtAgFQGa FAIrcXIBMZUsA8LapWxpAc0crBr6pVsiDamvHAZ3 Yhm0SV9etv80zjm8kZtqUKBnwlyxDiT9MZyjJTKf hnksCQw6ZXzsOQDsbOkhILxzBJHmjjrlQMcsFIYk oGcdKRzuNTEuCbblEZhvTETcSBB7MNwwm447CSZ4 NBihl7myf2jigRLwMvl8TUDiBxSdKecdOYxgv4Rb v9chDOFftp0rAUG7qMHazKwey1Z2oEUzBNAuuGVa viHfOQHzEsB3XImbNI5kxt66JPAoCZZ4uh3mjXXs lOhrlrNinTDlKOlwD8RbXLKro661REUoD6KjFKSg i6B2wbQvMnGhKDLhmOO2fgB1IWRkXXm2wQWprbQ5 eeLjiIUeX2wtlD36CqOhhXDjB9DlsD63IpHqeBDs V6VvuR55XgQafNBzJ9TikM65EmVziFKgEQZmjJHz Yy6rqZLmtKWrf6SlsLCqWRtuJ69iy557PFNtalTp D9mxzHVvplsylLOogvwzABkilkDgVRMeXOLlAVac YTRvZEAcVnBtsJapyF1uCeCrBrOwJEVBPzLzEDDg SWsyURVrIZXoWoQrZiEkUGs3IDPbjT4pHu9tqQSo hJ6zgVHuOCfmGIG6xLFbYYYpPSZbBVSrFR94Y5Xm rxEvXPgwBJQwRISuvP3mRU64uWVfsfXadoVrkMyt wP1aTtOxFtCwHJCmEnkks6VvcRJeQecplJX2Gpuq FSRySXbuZBGuQJChOdDsp1s0hFD6oOUtFMSwrPTb t85daRYeSLExbhyuuTbaktptfXQmhgliANisysDh URQpK7HweFVeWnSsp8v8aJTluADbe58oFJlqvWCb blxmMVxmczIwIGlycmVndWxhclxwbGFpblxmMFxm hiWhNCC9XQ2glSrqsyMwaMHlYEBzTxKxpKThb1Ul INEwtsVmVCIar49ysJE0mXDllVGtlMZcv6PevJ3x CULgVFG8TNJtNnF6ZRItJdQuvV2lKHautJAfgtxc AYwktkMpWVMwZPUysDRkfB2hwxFthgMouUNfcMB0 BTUkwK0naL31ufNpf8ash9xnkspzHfkuxEMemWin ulPuzgHnLZRrBNK3XNonpLUjsogsZOuibiYxTFLK CC7yNsZzlVpihGIanC== MICROSCOPIC DESCRIPTION (test code = d1cokQYwTXAzcWQqJoRkOTBjQHHpp9 [place] [id number]) DnZrZdDzZsZjAhogyZZvFVFyTlJdk2iyf836eUJm u4xzWZOpVvK5xNYlHNSjyHDaT625PEEkRBuyc8tr z1OeULFfzYDvc1G3XCPThjltxUn5yTxoI19dd4S9 HytvY0emFTGmFTfqSLWfMBbacYFsMWH4HPMwUEH5 DNycioNnoaU5OHvelHUvAwT9UUn0d0xyjJhgXNIs JXS6e1wsAEtgvwQgLO7fzh2uvFm7v9iresIkTRFw IXNuyIUECUYdA4XkyYnwEf1bsTk7cZizLodnGPD2 Xzw5FJ4agh28jjq2dHokZWSpizxtUdU0FEpnARFc zssvUBd9MVxhQVNscNrtDVonXBQjlahuQQnzUEGz zXnmBKjeCYPbFckcOLxhKTWjXEN9UHahj247SXU0 ZZwzp8oue0mqlTZtLzq8DKFvSeVxJsuvCDnjn2Pf z4eqPKLqlu5zSPK2nEPjeGxla8P9cTOvUZNvyEQh btYwUYZmqz45nWUyuNUgwTPgnl9pydCjdHOnlHXx UBQ7fYKtvkZvGBIblTBzTKDkTR0pjYXrHSRyrL6u rgprVOQwHrLeuldgWNNntIlkleOnLb8fkAarUYX0 UBpgD0ucrJ9pMxB1YVriM6onpV8kVSa6GJjneXP7 NIOfsT8mLK7pefyam8leUfHcOJ4ztgzvr9noAcLs QQ0hfuf3f6faYmVbPQ4jucboh7rvRvUdJQcuSUEp bwptKLKom5EahiaqFEOni6BtO5HiiAdrZ10tjVvr A21oXHWbpYpwfH5ghSegvP3oNtOvPePiLIbyjKwl bGFpblxmMFxmczIwXHBsYWluXGYxXGZzMjAgUGVy Zh4fdUSmWbjbYCYpeFMxcS== SPECIAL STUDIES (test code = 3376) o2ujqPXxXTAdj6vxCZNeaWUjJaFxYsPt ZnRuYmpc wGUqNRropqLaCLoyy1YeA6ZuUeLjNOdxjvZkKMCz KtsxfuxzOTIkGDW5teGrQSBvCFarVPKjZAikHy6j vSGhvLnxTxSuNBLck7tvgxEIxnhupGn1a5jfKGXd HpO3iUVkCGuaC2ulxjYvxJJgO6KnnBSrkNw4v4do OmEdYsB2kIFkYEpeE1mnbpJxcFBuSWXoIEe0xX48 VIGlqH4odLWgBGhovbYlLsK7CDgwTBSeYcT1SAYm cROqQAYcU9suADXoSPnzHDEbZKumaVIaYAY3iRpv n2Z0yBRvcGBdgKsjLoOrUmUwGwWTm7IfKAm7vYzg S9YpOFBiKlC3lDQmKJEqPCebSLWpDNSmkvN8aNpl ytYhs53uaZIdZEKuJLOoMoTmbZooXCNmRZRLz6Kf yHytRXK8fEi1kGmjDuwoLIS0Vqb7GK8zpc47ddr2 nWqnSSKqmxlsKiC8EDhzZVBqxnwnNNj3NJutQCOg sLS6RHFkdKQdU9WaTDKwEQ3uxof0ADS5QQdtVQKg IlT4BTKkkEMvAEYgeAsbGWtzx462PKY8BlZtHT5w D7Bkd9H4nD0syERxEJVeyGVbWpCqUCWgap5nmKOb RRrhx3PuZML3ykS7aXZidDWuOXLvPH59Arqxx1We Ngmeu4JkH96yvKS1ESvux5pzMS4xItR5nuHkFDyi q7ovuF0mNbO4GXltSZ5xYJ3pHSXbmS7ykhclAZYl VwDpzpswODRukZxcjdFxXa2vcFpbQYC3ZPdeS2ep tA5oEpT5VWhrU7rzrW0xUIm2FHuddWL8IKHikW4v WX3nthwdd0mvIGqjGQsvKGHcqgW9jfY4EZOaeJXu A8OizQ4wVHNuMP1tbcyqk0flNJH5MUxfIRYnEUY8 EnYfROQst5Fofiq3OzSuk4WkrKUaCTnpE04kt257 MZQpyzCzK9gtpDKgjbioiEKnguvpYVivmvC2UFDr XHBsYWluXGYxXGZzMjJcbGFuZzEwMzNcaGljaFxm EJtwVfKhCYZzNUrzV1bqOkCiF2WzIUTxQpFrRUto ONwkzBPahRTipAQ7oW4mBZ3aXOIguWRrP3YwUICf sgDttYXxXOK8pJHcmIRcZL4hSXqyvGMyd2bna3Uu K4mssUoyxDE2AG2wRIAoTCRgXHmqh9MhxX8cYqlm xYHzveiqNEvshwFuJUhineabPWKjOFdrZ2fxZcZt IMTerWwzOIjmx6WtLNOrHRDaXoezilFwVHg5tgZd SHEsknpoHYPstXcszV0cHgEzIpEsKsefEE4vZRKc T9znoXIiBYUuFUJjG2nrAqNzuX6fiBmwPQkrKkIt XvVbKoGQj236px5eYMWeaPLqlySKjLDnlR6jEEsw JAblAQhuvODtPSpmp9hfNRQjm3o7iVCoQQEguyEv b1eyUHgvqpUbEKXxoQNltKMgLGDgd43tCFqzpZro yTvnHWTni9NxfHtog7LnMrEeNDhgt3IaK81yqXIy lIDypEmoHMGqvfPlYCZaz95ju4ujOMVhRfM4uSWc cVT5tSUpaNNbv5EzxSknHSFdj5ddTSDfxk2adusk wFBxp2EwgD2vtuswTXzdkWIwsfIqWIAdy8o6aVDe MYWvZPLcICsfiGl6YYCje941gc5ixkK6wNAlGUS4 YWlsYWJsZSBhcmUgZXZhbHVhdGVkXHBsYWluXGYx XGZzMjJcbGFuZzEwMzNcaGljaFxmMVxkYmNoXGYx CBskP4dfDvKxS3XjYNZfFpXerOCaU1ppaAOwOLYa YWluXGYxXGZzMjJcbGFuZzEwMzNcaGljaFxmMVxk UaLaKTSnFBenT9rmZmUvH1KqBCYuRhJsEQpkpMHp tpawFGqbxfCuJYfdcpcxSUViPSgqR1sbPuIwBRSs tBryKNjve1LyBAQaOWPbHkpiloVrKEc3peAvTSJy wbsicDZngenhCHomxiZvCNyfgdooIDLpDDhjI5ss [file] NybcYTU7oF== [facility] [id number] 09:36:00Surgical Pathology Report Case: [id number] Authorizing Provider: Vinnie Oglesby Collected: 08/26/2019 12:43 PM MD Beatrice [facility]ingLocation[facility] Endoscopy Received: 08/26/2019 01:56 PM Services Pathologist: Isac Cummins MD Specimen: Biopsy, Gastric, gastric polyp A. STOMACH, POLYP, BIOPSY: - ANTRAL MUCOSA WITH POLYPOID FOVEOLAR HYPERPLASIA - NEGATIVE FOR HELICOBACTER PYLORI ORGANISMS BY WARTHIN STARRY STAIN - NEGATIVE FOR INTESTINAL METAPLASIA, DYSPLASIA, MALIGNANCY Signing Pathologist Direct Phone Line: [phone] signed by Isac Cummins MD on 08/27/2019 at 9:36 [id number]: upper endoscopy, biopsyPre and postop diagnosis: acute [...] evaluated Immunohistochemistry technical testing was performed at [facility], Pathology Laboratory where it was [...] to perform high complexity clinical laboratory testing.POC-Glucose [id number] 13:26:00 Test Item Value Reference Range Interpretation Comments POC-Glucose Meter (test 122 mg/dL 70-110 H : TE STED AT [facility] code = 1538) [address] [facility], 770 30: Operations Team Leader/Techni wendy ID = [id number] for Ilda Rodriguez Lab Interpretation (test Abnormal code = 11466-2) [facility] [id number] 13:26:00 Test Item Value Reference Range Interpretation Comments POC-GLUCOSE METER 122 mg/dL 70-110 H : [facility] (BEAK[facility] (test code = [facility], 1538) [address]: Operations Team Leader/Techni wendy ID = [id number] for Ilda Bailey POCT-GLUCOSE [id number] 11:40:00 Test Item Value Reference Range Interpretation Comments POC-GLUCOSE METER 137 mg/dL 70-110 H : [facility] (BEAK[facility] (test code = [facility], 1538) 85742: Operations Team Leader/Techni wendy ID = [id number] for KATIE CANTU COLON SEGMENT RESEC.NOT [id number] 19:21:00 RUN DATE: 11/14/18 [facility] PAGE 1 RUN TIME: 810 Specimen Inquiry RUN USER: INTERFACE PATIENT: DAISY HAMMER LOC: [facility] #: [id number] AGE/SX: 58/F ROOM: [facility] RE11/11/18REG DR: Betito Collazo MD : 56 BED: A DIS: 11/13/18 STATUS: DIS Sharla TLOC: SPEC #: [id number] RECD: 11/11/18 STATUS: BRITTNY JIANG #: [id number] CRISTINO: 11/11/18- SUBM DR: Betito Collazo MD ENTERED: 11/11/18 SP TYPE: COLONR NIDIA DR: ORDERED: LEVEL V SURGICA CODES: P18999 - COLON, NOS PROCEDURES: LEVEL V SURGICA (Incomplete) TISSUES: COLON, NOS - RECTOSIGMOID DIVERTICULITIS CLINICAL HISTORY 58 year old, diverticulitis (wpd) FINAL DIAGNOSIS Designated "rectosigmoid diverticulitis", segmental resection: - diverticular disease with peridiverticular fibrosis - intestinal rings - unremarkable CPT code(s): 15622 pkg/wpd 11/13/18 GROSS DESCRIPTION ANATOMIC SOURCE OFTISSUE [...] and contains unremarkable mucosa and surrounding tissue. Lead Setter sections are submitted in A2. The largest [...] Specimen Inquiry RUN USER: INTERFACE SPEC #: [id number] PATIENT: MURALIDAISY #[id number] (Continued) GROSS DESCRIPTION (Continued) 1.0 cm and containing green-brown fecal material. No discrete perforationor discoloration in those areas are noted. Lead Setter sections of the intestine with the diverticula are submitted in A3 - A8. Examination of attached adipose tissue reveals no discrete lymph nodes. Lead Setter sections are submitted in A9 - A16. /wpd 11/11/18 @ 6967 MICROSCOPIC DESCRIPTION The specimen consists of a segment of rectosigmoid colon containing numerous diverticula which extend through the muscularis into the rectosigmoid adipose tissue. Foci of fibrosis are present adjacent to the diverticula. No granulomas, dysplasia or neoplasia are identified. The intestinal rings are unremarkable. melania/domonique 11/13/18 Signed Deena Storm 11/13/181920 ENDOF REPORT [id number] 07:10:00 Test Item Value Reference Range Interpretation Comments GLUBED (test code = GLUBED) 180 mg/dL 65-110 H COMPREHENSIVE METABOLIC [id number] 05:48:00 Test Item Value Reference Range Interpretation [...] 106 units/L 46-116 N code = ALKP) [id number] 05:48:00 Test Item Value Reference Range Interpretation Comments MAGNESIUM (test code = MAG) 1.8 mg/dL 1.8-2.4 N CBC W/AUTO [id number] 04:49:00 Test Item Value Reference Range Interpretation [...] REQUIRED (test NORMAL NORMAL code = PLTMR) [id number] 21:57:00 Test Item Value Reference Range Interpretation Comments GLUBED (test code = GLUBED) 278 mg/dL 65-110 H [id number] 17:26:00 Test Item Value Reference Range Interpretation Comments GLUBED (test code = 292 mg/dL 65-110 H Hypoglyc emic Protoco GLUBED) [id number] 12:11:00 Test Item Value Reference Range Interpretation Comments GLUBED (test code = GLUBED) 131 mg/dL 65-110 H [id number] 07:23:00 Test Item Value Reference Range Interpretation Comments GLUBED (test code = GLUBED) 110 mg/dL 65-110 N CHEMISTRY 7 [id number] 05:23:00 Test Item Value Reference Range Interpretation [...] code = CA) 7.8 mg/dL 8.4-10.2 L [id number] 05:23:00 Test Item Value Reference Range Interpretation Comments MAGNESIUM (test code = MAG) 1.8 mg/dL 1.8-2.4 N CBC W/AUTO [id number] 05:19:00 Test Item Value Reference Range Interpretation [...] REQUIRED (test NORMAL NORMAL code = PLTMR) [id number] 22:07:00 Test Item Value Reference Range Interpretation Comments GLUBED (test code = GLUBED) 171 mg/dL 65-110 H [id number] 17:41:00 Test Item Value Reference Range Interpretation Comments GLUBED (test code = GLUBED) 157 mg/dL 65-110 H [id number] 13:26:00 Test Item Value Reference Range Interpretation Comments GLUBED (test code = GLUBED) 154 mg/dL 65-110 H [id number] 06:54:00 Test Item Value Reference Range Interpretation Comments GLUBED (test code = GLUBED) 143 mg/dL 65-110 H CHEMISTRY 7 [id number] 13:07:00 Test Item Value Reference Range Interpretation [...] = CA) 8.5 mg/dL 8.4-10.2 N HGB [id number] 12:51:00 Test Item Value Reference Range Interpretation Comments HEMOGLOBIN (test code = HGB) 13.6 g/dL 10.7-13.9 N HEMATOCRIT (test code = HCT) 40.3 % 32.1-42.1 N
[2019-10-18 12:51] LABS: Absolute Lymphocytes (CBC) 2.1 K/uL (0.7-4.9); Basophils % 1.3 % (0-1.3); Lymphocytes % 26.9 % (15.3-44.8); MPV 8.3 fL (7.6-11.3); RBC Red Blood Cell Count 4.42 M/uL (3.86-4.86)
[2019-10-18 13:06] LABS: Albumin 3.4 g/dL (3.4-5.0); Bilirubin Direct 0.1 mg/dL (0-0.2); Bilirubin Total 0.4 mg/dL (0.2-1.0); Protein, Total 7.8 g/dL (6.4-8.2)
[2019-10-18 13:07] LABS: Potassium 3.8 mmol/L (3.5-5.1)
[2019-10-18] MEDS ORDERED: MORPHINE 4 MG/ML SYR ONE (13:29)
[2019-10-18] MEDS ORDERED: ONDANSETRON 4 MG/2 ML VIAL ONE (13:30)
--- NOTE | 2019-10-18 13:53 | RAD REPORT ---
EXAM DESCRIPTION: CT - Abdomen Pelvis W Contrast - 10/18/2019 1:25 pm CLINICAL HISTORY: upper abd pain COMPARISON: <Comparisons> TECHNIQUE: Biphasic, helical CT imaging of the abdomen and pelvis was performed following 100 ml non -ionic IV contrast. No oral contrast. All CT scans are performed using dose optimization technique as appropriate and may include automated exposure control or mA/KV adjustment according to patient size. FINDINGS: No suspicious findings in the lung bases. Liver shows mild diffuse fatty infiltration with no focal abnormality. Liver size is upper normal, si milar comparison. Pancreas and spleen show no suspicious findings. Cholecystectomy clips are present. No biliary tree abnormality. Symmetric renal function is seen with no hydronephrosis or suspicious renal mass. No pyelonephritis o r acute parenchymal process. No bladder abnormalities. No adrenal abnormalities. Uterus is absent. Ov audra are absent or atrophic. Minimal hiatal hernia present. Gastric antrum and duodenal C-loop show no suspicious findings. Remain angelica of the small bowel is unremarkable. Appendix is normal. Patient has left-sided diverticulosis wit hout diverticulitis. Sigmoid anastomosis shows no wall thickening or mass. Diameter similar to compar maya. No free air, free fluid, pneumatosis or focal stranding adjacent bowel. No mass or bulky lymphaden opathy. Approximately 6 centimeter superior to the umbilicus and 2 cm left of midline a hernia is identified. This is 3 cm in diameter with an 8 millimeter neck. Hernia contains only fat but there is a congeste d or edematous appearance to the fat. No other hernia defect identified. No suspicious bony findings. IMPRESSION: Mild fatty infiltration changes are present. No biliary tree dilatation. No right upper quadrant abnormality seen. Patient has a new ventral hernia 6 centimeter superior to the umbilicus an approximately 2 cm left of midline. The hernia contains only fat but the fat is congested and edematous. This is potentially a symptomatic herniation of fat or omentum. Correlation is needed with any localized symptoms.
--- NOTE | 2019-10-18 14:17 | ER ---
Nurse's Notes [facility] Name: Robyn Carrion Age: 59 yrs Sex: Female : 1960 Arrival Date: 10/18/2019 Time: 11:37 Bed 23 Private MD: Diagnosis: Ventral hernia without obstruction or gangrene Presentation: 10/17 11:39 Chief complaint: Patient states: RUQ pain since 2 days. History of pancreatitis. ca1 Reports N/V. Coronavirus screen: Proceed with normal triage. Patient denies a cough. Patient denies shortness of breath or difficulty breathing. Patient denies measured and/or subjective temperature greater than 100.4F prior to today's visit. Patient denies travel on a cruise ship or to a country the [facility] currently lists as an affected area. Patient denies contact with known and/or suspected case of COVID-19. Ebola Screen: Patient negative for fever greater than or equal to 101.5 degrees Fahrenheit, and additional compatible Ebola Virus Disease symptoms Patient denies exposure to infectious person. Patient denies travel to an Ebola-affected area in the 21 days before illness onset. No symptoms or risks identified at this time. Initial Sepsis Screen: Does the patient meet any 2 criteria? No. Patient's initial sepsis screen is negative. Does the patient have a suspected source of infection? No. Patient's initial sepsis screen is negative. Risk Assessment: Do you want to hurt yourself or someone else? Patient reports no desire to harm self or others. Onset of symptoms was October 18, 2019. 11:39 Method Of Arrival: Ambulatory ca1 11:39 Acuity: DARA 3 ca1 Triage Assessment: 15:00 General: Appears in no apparent distress. Behavior is calm, cooperative. iw Historical: - Allergies: 11:43 HYDROCODONE; ca1 - Home Meds: 11:43 Amitiza Oral [Active]; atorvastatin Oral [Active]; Creon Oral [Active]; Dicyclomine ca1 Oral [Active]; Lantus Sub-Q [Active]; lisinopril Oral [Active]; - PMHx: 11:43 fernando esophageal disease; cricopharyngeal spasm; Diabetes - NIDDM; High Cholesterol; ca1 Hyperlipidemia; - PSHx: 11:43 Cholecystectomy; Hysterectomy; ca1 - Immunization history:: Adult Immunizations up to date. - Social history:: Smoking status: Patient/guardian denies using tobacco, the patient reports quitting approximately 5 years ago. - Family history:: not pertinent. - Hospitalizations: : The patient was recently seen at [facility]. Screenin:00 Abuse screen: Denies threats or abuse. Denies injuries from another. Nutritional iw screening: No deficits noted. Tuberculosis screening: No symptoms or risk factors identified. Fall Risk None identified. Assessment: 13:30 General: Appears in no apparent distress. comfortable, Behavior is calm, cooperative. iw Pain: Complains of pain in epigastric area. Neuro: Level of Consciousness is awake, alert, obeys commands, Oriented to person, place, time, situation, Moves all extremities. Full function. Cardiovascular: Patient's skin is warm and dry. Respiratory: Respiratory effort is even, unlabored, Respiratory pattern is regular, symmetrical. GI: Reports upper abdominal pain. : No signs and/or symptoms were reported regarding the genitourinary system. Derm: Skin is intact, is healthy with good turgor. Musculoskeletal: Range of motion: intact in all extremities. Vital Signs: 11:39 BP 185 / 97; Pulse 84; Resp 15 S; Temp 97.8(TE); Pulse Ox 100% on R/A; Weight 70.76 kg ca1 (R); Height 5 ft. 2 in. (157.48 cm) (R); Pain 9/10; 13:37 BP 187 / 82; iw 14:03 BP 165 / 59; Pulse 74; Resp 16 S; Pulse Ox 97% on R/A; iw 11:39 Body Mass Index 28.53 (70.76 kg, 157.48 cm) ca1 ED Course: 11:37 Patient arrived in ED. ag5 11:39 Charles Thakur PA is PHCP. jr8 11:39 Antony Ely MD is Attending Physician. jr8 11:42 Triage completed. ca1 11:43 Arm band placed on right wrist. ca1 12:07 Mariella Bower, HAIDER is Primary Nurse. iw 12:08 Antony Ely MD is Attending Physician. rn 13:25 CT Abd/Pelvis - IV Contrast Only In Process Unspecified. EDMS 13:26 CT completed. Patient tolerated procedure well. Patient moved back from CT. bq 13:30 Patient has correct armband on for positive identification. iw 14:17 Collin Keating MD is Referral Physician. rn 15:08 No provider procedures requiring assistance completed. IV discontinued, intact, iw bleeding controlled, No redness/swelling at site. Pressure dressing applied. Administered Medications: 13:36 Drug: morphine 4 mg Route: IVP; Site: right wrist; iw 14:00 Follow up: Response: No adverse reaction iw 14:55 Drug: morphine 4 mg Route: IVP; Site: right wrist; iw 15:15 Follow up: Response: No adverse reaction iw Outcome: 14:17 Discharge ordered by MD. rn 15:09 Discharged to home ambulatory. iw 15:09 Condition: good 15:09 Discharge instructions given to patient, Instructed on discharge instructions, follow up and referral plans. medication usage, Demonstrated understanding of instructions, follow-up care, medications, Prescriptions given X 1. 15:10 Patient left the ED. iw Signatures: Dispatcher [employer] EDMS Flor Cardona Irene, RN RN iw Antony Ely MD MD rn Roszak, Josh, PA PA jr8 Kalpana Stewart RN RN Abdirizak Rowan ag5
--- NOTE | 2019-10-18 14:18 | EDPHYS ---
Physician Documentation [facility] Name: Robyn Carrion Age: 59 yrs Sex: Female : 1960 Arrival Date: 10/18/2019 Time: 11:37 Bed 23 Private MD: ED Physician Atnony Ely HPI: 10/17 13:34 This 59 yrs old Female presents to ER via Ambulatory with complaints of rn Abdominal Problem. 13:34 The patient presents with abdominal pain in the right upper quadrant. Onset: The rn symptoms/episode began/occurred 6 month(s) ago. The symptoms do not radiate. Associated signs and symptoms: Pertinent positives: weight loss, Pertinent negatives: blood in stools, fever. The symptoms are described as achy, sharp. Modifying factors: The symptoms are alleviated by nothing, the symptoms are aggravated by nothing. Severity of pain: At its worst the pain was moderate in the emergency department the pain has improved. The patient has experienced similar episodes in the past. The patient has been recently seen by a physician:. Reports RUQ abd pain for atleast 6 months, has been seen for this by GI and sent to [facility] for ERCP, scheduled for ERCP this next week. Reports pain has not really changed, just got worse today. No fever/blood in stool. Reports some weight loss. Told at beginning of year had "mass" in RUQ, and she is concerned it "might be festering". . Historical: - Allergies: 11:43 HYDROCODONE; ca1 - Home Meds: 11:43 Amitiza Oral [Active]; atorvastatin Oral [Active]; Creon Oral [Active]; Dicyclomine ca1 Oral [Active]; Lantus Sub-Q [Active]; lisinopril Oral [Active]; - PMHx: 11:43 fernando esophageal disease; cricopharyngeal spasm; Diabetes - NIDDM; High Cholesterol; ca1 Hyperlipidemia; - PSHx: 11:43 Cholecystectomy; Hysterectomy; ca1 - Immunization history:: Adult Immunizations up to date. - Social history:: Smoking status: Patient/guardian denies using tobacco, the patient reports quitting approximately 5 years ago. - Family history:: not pertinent. - Hospitalizations: : The patient was recently seen at [facility]. ROS: 13:34 Constitutional: Negative for fever, chills, and weight loss, Eyes: Negative for injury, rn pain, redness, and discharge, Neck: Negative for injury, pain, and swelling, Cardiovascular: Negative for chest pain, palpitations, and edema, Respiratory: Negative for shortness of breath, cough, wheezing, and pleuritic chest pain, Abdomen/GI: + abd pain Back: Negative for injury and pain, : Negative for injury, bleeding, discharge, and swelling, MS/Extremity: Negative for injury and deformity, Skin: Negative for injury, rash, and discoloration, Neuro: Negative for headache, weakness, numbness, tingling, and seizure. Exam: 13:34 Constitutional: This is a well developed, well nourished patient who is awake, alert, rn and in no acute distress. Head/Face: Normocephalic, atraumatic. Cardiovascular: Regular rate and rhythm. No pulse deficits. Respiratory: No increased work of breathing, no retractions or nasal flaring. Abdomen/GI: Soft, mild RUQ tenderness, no rebound/mass Skin: Warm, dry MS/ Extremity: Pulses equal, no cyanosis. Neuro: Awake and alert, GCS 15 Vital Signs: 11:39 BP 185 / 97; Pulse 84; Resp 15 S; Temp 97.8(TE); Pulse Ox 100% on R/A; Weight 70.76 kg ca1 (R); Height 5 ft. 2 in. (157.48 cm) (R); Pain 9/10; 13:37 BP 187 / 82; iw 14:03 BP 165 / 59; Pulse 74; Resp 16 S; Pulse Ox 97% on R/A; iw 11:39 Body Mass Index 28.53 (70.76 kg, 157.48 cm) ca1 MDM: 12:08 Patient medically screened. rn 14:14 Differential diagnosis: gastritis, gastroesophageal reflux disease, non-specific abd rn pain, pancreatitis, Peptic Ulcer Disease, fatty liver, ventral hernia. Data reviewed: vital signs, nurses notes, lab test result(s), radiologic studies, CT scan, and as a result, I will discharge patient. Counseling: I had a detailed discussion with the patient and/or guardian regarding: the historical points, exam findings, and any diagnostic results supporting the discharge/admit diagnosis, lab results, radiology results, the need for outpatient follow up, to return to the emergency department if symptoms worsen or persist or if there are any questions or concerns that arise at home. Response to treatment: the patient's symptoms have markedly improved after treatment, and as a result, I will discharge patient. Special discussion: Based on the patient's Hx, exam, and Dx evaluation, there is no indication for emergent surgery or inpatient Tx. It is understood by the patient/guardian that if the Sx's persist or worsen they need to return immediately for re-evaluation. I discussed with the patient/guardian in detail that at this point there is no indication for admission to the hospital. It is understood, however, that if the symptoms persist or worsen the patient needs to return immediately for re-evaluation. ED course: CT shows new ventral hernia, small and fat containing, no bowel or resultant complication, when palpated, patient does not show any focal tenderness and continues to say her pain is more RUQ as opposed to midline or periumbilical. Even if hernia is superimposed pain on top of her chronic RUQ, is only fat containing, and no complications, will dc home with f/u for her ERCP and return precautions. . 10/17 12:17 Order name: Basic Metabolic Panel; Complete Time: 13:33 rn 10/17 12:17 Order name: CBC with Diff; Complete Time: 13:33 rn 10/17 12:17 Order name: Hepatic Function; Complete Time: 13:33 rn 10/17 12:17 Order name: Lipase; Complete Time: 13:33 rn 10/17 12:17 Order name: CT Abd/Pelvis - IV Contrast Only; Complete Time: 14:02 rn 10/17 12:17 Order name: IV Saline Lock; Complete Time: 12:44 rn 10/17 12:17 Order name: Labs collected and sent; Complete Time: 12:44 rn Administered Medications: 13:36 Drug: morphine 4 mg Route: IVP; Site: right wrist; iw 14:00 Follow up: Response: No adverse reaction iw 14:55 Drug: morphine 4 mg Route: IVP; Site: right wrist; iw 15:15 Follow up: Response: No adverse reaction iw Disposition: 10/18/19 14:17 Discharged to Home. Impression: Ventral hernia without obstruction or gangrene. - Condition is Stable. - Discharge Instructions: Hernia, Adult, Ventral Hernia, Nonalcoholic Fatty Liver Disease Diet. - Medication Reconciliation Form, Thank You Letter, Antibiotic Education, Prescription Opioid Use form. - Follow up: Collin Keating MD; When: As needed; Reason: Recheck today's complaints, Re-evaluation by your physician. - Problem is new. - Symptoms have improved. Signatures: Dispatcher [employer] Mariella Mckeon RN RN Antony Mcneill MD MD rn Acob, HAIDER Acuna RN ca1 Corrections: (The following items were deleted from the chart) 15:10 14:17 10/18/2019 14:17 Discharged to Home. Impression: Ventral hernia without iw obstruction or gangrene. Condition is Stable. Forms are Medication Reconciliation Form, Thank You Letter, Antibiotic Education, Prescription Opioid Use. Follow up: Dr. Collin Keating; When: As needed; Reason: Recheck today's complaints, Re-evaluation by your physician. Problem is new. Symptoms have improved. rn
[2019-10-18 15:15] VITALS: TEMP 97.8
[2019-10-18 15:17] VITALS: BP 165/59; O2SAT 97
== END 2019-10-18 15:10 | disposition home or self-care (01) ==
LOC: ER 11:35
DX: K43.9 Ventral hernia without obstruction or gangrene (principal); E11.9 Type 2 diabetes mellitus without complications; Z79.4 Long term (current) use of insulin; E78.00 Pure hypercholesterolemia, unspecified; E78.5 Hyperlipidemia, unspecified; Z88.5 Allergy status to narcotic agent
CPT/HCPCS: 85025; 80048; 36415; 80076; 83690; 74177; 96374; 99284; Q9967; J2405

== ENCOUNTER 2019-12-13 02:58 | Emergency (ER) | payer OTHER ==
--- OUTSIDE RECORDS SUMMARY | 2019-12-13 03:00 | XMS REPORT | Clinical Summary ---
:1960 Author Organization [facility] Address [address] [place] [id number] Care Team Providers Name Role Phone Berry Suero MD Primary Care Provider Allergies Active Allergy Reactions Severity Noted Date Comments Hydrocodone 11/01/2018 Medications No known medications Active Problems No known active problems Family History Medical History Relation Name Comments [...] travel history available. Last Filed Vital Signs Not on file Plan of Treatment Health Maintenance Due Date Last Done Comments DIABETIC RETINAL EYE EXAM 1960 DIABETIC FOOT EXAM 1968 URINE MICROALBUMIN 1968 CERVICAL CANCER SCREENING 09/07/1979 BREAST CANCER SCREENING 2008 COLONOSCOPY SCREENING 2008 SHINGLES VACCINES (#1) 2008 INFLUENZA VACCINE 01/08/2020 Results Not on fileafter 12/12/2018 Insurance Payer Benefit Plan / Subscriber ID Effective Dates Phone Addre ss Type Group MEDICARE MEDICARE PART A xxxxxxxxxxx 2001-Present [facility] [place] Medicare AND B Advance Directives For more information, please contact: [phone] Type Date Recorded 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
--- OUTSIDE RECORDS SUMMARY | 2019-12-13 03:00 | XMS REPORT | Clinical Summary ---
:1960 Author Organization [facility] Address [address] [place] [address] Care Team Providers Name Role Phone Pastor Suero MD Primary Care Provider Allergies Active Allergy Reactions Severity Noted Date Comments Codeine Nausea And Vomiting Medium 11/17/2019 Hydrocodone-Acetamino Nausea And Vomiting, Medium 08/15/2019 As per patient, " it phen Other (See Comments) wears o n my stomach" Medications Medication Sig Dispensed Refills Start Date End Date Status atorvastatin Take 40 mg by mouth 0 Active (LIPITOR) 40 MG daily. tablet dicyclomine Take 20 mg by mouth 0 Active (BENTYL) 20 mg every 6 (six) hours. tablet insulin glargine Inject subcutaneously 0 Active (LANTUS) 100 nightly Use as unit/mL directed . injectionIndication s: 35 units in the morning and 40 units at night lisinopriL Take 10 mg by mouth 0 Active (PRINIVIL,ZESTRIL) daily. 10 MG tablet lubiprostone Take 8 mcg by mouth 2 0 Active (AMITIZA) 8 MCG (two) times daily as capsule needed . lipase/protease/deanna Take 36,000 Units by 0 Active lase (CREON mouth 3 (three) times ORAL)Indications: 2 daily . caps with each meal, and 1 cap with a snack pantoprazole Take 40 mg by mouth 2 0 Active (PROTONIX) 40 MG (two) times daily . tablet promethazine Take 25 mg by mouth 0 Active (PHENERGAN) 25 MG every 6 (six) hours tablet as needed for Nausea. sucralfate Take 1 g by mouth 4 0 Active (CARAFATE) 1 gram (four) times daily. tablet Active Problems Problem Noted Date Biliary pain 11/18/2019 Encounters Date Type Specialty Care Team Description 11/18/2019 Anesthesia Event Gastroenterology Mary Bond MD 11/18/2019 Surgery Gastroenterology Shabbir, ERCP,PAPILL OTOMY Vinnie Barron MD 11/18/2019 - Hospital General Internal [facility], Chronic 11/19/2019 Encounter Medicine [facility] Shabbir pancreatitis, MD Beatrice unspecified Merchant, pancreatitis ty pe MD Thang ([facility]) Jam Davalos MD 11/17/2019 Hospital Pre-Admission Testing Encounter 11/17/2019 Travel 08/26/2019 Surgery Gastroenterology Shabbir, UPPER Vinnie Shea ENDOSCOPY,BIO JEFFY MD Beatrice 08/26/2019 Anesthesia Event Gastroenterology Santo Burgess, MARGARET 08/26/2019 [facility] Vinnie Barron MD 08/15/2019 Hospital Pre-Admission Testing Encounter 08/15/2019 Travel after 12/12/2018 Social History Tobacco Use Types Packs/Day Years Used Date Former Smoker 1.5 40 Quit: 2014 Smokeless Tobacco: Never Used Comments: quit 5 years ago Alcohol Use Drinks/Week oz/Week Comments Yes socially Alcohol Habits Answer Date Recorded How often [...] Vital Sign Reading Time Taken Blood Pressure 126/60 11/19/2019 11:32 AM CDT Pulse 57 11/19/2019 11:32 AM CDT Temperature 35.7 C (96.3 F) 11/19/2019 11:32 AM CDT Respiratory Rate 20 11/19/2019 11:32 AM CDT Oxygen Saturation 98% 11/19/2019 11:32 AM CDT Inhaled Oxygen Concentration - - Weight 69.4 kg (152 lb 14.4 oz) 11/18/2019 6:5 8 AM CDT Height 157.5 cm (5' 2") 11/18/2019 6:58 AM CDT Body Mass Index 27.97 11/18/2019 6:58 AM CDT Plan of Treatment Health Maintenance Due Date Last Done Comments BREAST CANCER SCREENING 1960 COLON CANCER SCREENING COLONOSCOPY 1960 CERVICAL CANCER SCREENING PAP ONLY 09/07/1979 (Age 21-65) MEDICARE ANNUAL WELLNESS (YEAR 2 or 10/08/2002 FIRST YEAR if no IPPE) LIPID PANEL 09/07/2003 INFLUENZA VACCINE (#1) 2019 04/12/2016, 01/20/2015, 02/06/2013 Procedures Procedure Name Priority Date/Time Associated Diagnosis Comme nts POCT-GLUCOSE METER Routine 11/19/2019 7:32 Resul ts for this AM CDT procedure are i n the results section. COMPREHENSIVE Routine 11/19/2019 6:19 Results fo r this METABOLIC PANEL AM CDT procedure ar e in the results section. CBC W/PLT COUNT & AUTO Routine 11/19/2019 5:32 R esults for this DIFFERENTIAL AM CDT procedure are i n the results section. HEMOGLOBIN A1C Routine 11/19/2019 5:32 Results f or this AM CDT procedure are i n the results section. CBC W/PLT COUNT & AUTO Routine 11/19/2019 5:32 R esults for this DIFFERENTIAL AM CDT procedure are i n the results section. POCT-GLUCOSE METER Routine 11/18/2019 9:05 Resul ts for this PM CDT procedure are i n the results section. REPORT OF PROCEDURE - 11/18/2019 11:51 ENDOSCOPY URL AM CDT [place] ERCP Routine 11/18/2019 11:08 Results for this AM CDT procedure are i n the results section. ERCP,BALLOON SWEEPING 11/18/2019 8:30 Acute pancreati tis, AM CDT unspecified complication status, unspecified pancreatitis type Special Needs (C-ARM) PROCEDURE W/ C-ARM 11/18/2019 8:30 AM CDT Acute pancr eatitis, unspecified complication status, unspeci fied pancreatitis type Special Needs (C-ARM) ERCP,PAPILLOTOMY 11/18/2019 8:30 AM CDT Acute pancrea titis, unspecified complication status, unspeci fied pancreatitis type Special Needs (C-ARM) POCT-GLUCOSE METER Routine 11/18/2019 7:34 Resul ts for this AM CDT procedure are i n the results section. REPORT OF PROCEDURE 08/26/2019 1:44 - ENDOSCOPY URL PM CDT POCT-GLUCOSE METER Routine 08/26/2019 1:14 Resul ts for this PM CDT procedure are i n the results section. UPPER 08/26/2019 1:00 Acute pancreatitis, ENDOSCOPY,ULTRASOUND PM CDT unspecified complication status, unspecified pancreatitis type UPPER 08/26/2019 1:00 Acute pancreatitis, ENDOSCOPY,SUBMUCOSAL PM CDT unspecified INJECTION complication status, unspecified pancreatitis type UPPER 08/26/2019 1:00 Acute pancreatitis, ENDOSCOPY,BIOPSY PM CDT unspecified complication status, unspecified pancreatitis type TISSUE EXAM AP Routine 08/26/2019 12:43 Results for this PM CDT procedure are i n the results section. POCT-GLUCOSE METER Routine 08/26/2019 11:28 Resul ts for this AM CDT procedure are i n the results section. after 12/12/2018 Results POC-Glucose meter (11/19/2019 7:32 AM CDT)Only the most recent of5 results within the time period is included. POC-Glucose Meter 130 (H)Comment: : TESTED 70 - 110 mg/dL [facility] AT [address], [address]: Mimeograph Operator/Spudder ID = [id number] for MUNA FERRERA Specimen Blood Performing Organization Address City/State/Zipcode Phone Number [address] [phone] CENTER Comprehensive metabolic panel (11/19/2019 6:19 AM CDT) Protein, Total 6.8 6.0 - 8.3 gm/dL [facility] Albumin 3.5 3.5 - 5.0 g/dL [facility] Alkaline Phosphatase 119 40 - 150 U/L [facility] Total Bilirubin 0.5 0.2 - 1.2 mg/dL [facility] Sodium 136 136 - 145 meq/L [facility] Potassium 4.0 3.5 - 5.1 meq/L [facility] Chloride 105 98 - 107 meq/L [facility] CO2 26 22 - 29 meq/L [facility] BUN 17 7 - 21 mg/dL [facility] Creatinine 0.77 0.57 - 1.25 mg/dL [facility] Glucose 162 (H) 70 - 105 mg/dL [facility] Calcium 8.8 8.4 - 10.2 mg/dL [facility] AST 24 5 - 34 U/L [facility] [place] ALT 27 6 - 55 U/L [facility] EGFR 76Comment: ESTIMATED GFR mL/min/1.73 sq m [facility] IS NOT ACCURATE [facility] CLEARANCE IN PREDICTING GLOMERULAR FILTRATION RATE. ESTIMATED GFR IS NOT APPLICABLE FOR DIALYSIS PATIENTS. Specimen Blood Narrative Performed At Mimeograph Operator ID - PIAYA L [facility] CENTER Performing Organization Address City/State/Zipcode Phone Number [facility] [address] [place] [address] CENTER CBC with platelet count + automated diff (11/19/2019 5:32 AM CDT) WBC 13.1 (H) 3.5 - 10.5 K/L [facility] RBC 4.21 3.93 - 5.22 M/L [facility] Hemoglobin 13.2 11.2 - 15.7 GM/DL [facility] Hematocrit 37.6 34.1 - 44.9 % [facility] MCV 89.3 79.4 - 94.8 fL [facility] MCH 31.4 25.6 - 32.2 pg [facility] MCHC 35.1 32.2 - 35.5 GM/DL [facility] RDW 12.0 11.7 - 14.4 % [facility] Platelets 295 150 - 450 K/CU MM [facility] MPV 9.5 9.4 - 12.[address] [facility] nRBC 0 0 - 0 /100 WBC [facility] % Neutros 78 % [facility] [place] % Lymphs 15 % [facility] % Monos 6 % [facility] % Eos 0 % [facility] % Baso 0 % [facility] # Neutros 10.27 (H) 1.56 - 6.13 K/L [facility] # Lymphs 1.95 1.18 - 3.74 K/L [facility] # Monos 0.81 (H) 0.24 - 0.36 K/L [facility] # Eos 0.02 (L) 0.04 - 0.36 K/L [facility] # Baso 0.01 0.01 - 0.08 K/L [facility] Immature 0 0 - 1 % [facility] M Granulocytes-Relative MEDICAL CE NTER Specimen Blood Performing Organization Address City/State/Zipcode Phone Number [place] [phone] [place] [address] CENTER Hemoglobin A1c (11/19/2019 5:32 AM CDT) Hemoglobin A1C 8.1 (H) 4.3 - 6.1 % [facility] Specimen Blood Performing Organization Address City/[facility]/Zipcode Phone Number [place] [phone] [place] [address] CENTER REPORT OF PROCEDURE - ENDOSCOPY URL (11/18/2019 11:51 AM CDT) Narrative Performed At This result has an attachment that is no t available. [place] ERCP (11/18/2019 11:08 AM CDT) Specimen Narrative Performed At Fluoroscopic unit utilized for a procedure performed i n the OR.No GE RIS interpretation was requested.Refer to the operativ e report for findings.Refer to PACS for patient radiation dose information. Procedure Note Interface, External Ris In - 11/18/2019 11:22 AM CDT Fluoroscopic unit utilized for a procedu re performed in the OR. No interpretation was requested. Refer to the operative r eport for findings. Refer to PACS for patient radiation dose information. Performing Organization Address City/State/Zipcode Phone Number GE RIS REPORT OF PROCEDURE - ENDOSCOPY URL (08/26/2019 1:44 PM CDT) Narrative Performed At This result has an attachment that is no t available. Tissue Exam (08/26/2019 12:43 PM CDT) Case Report Surgical Pathology Report Case: [id number] [facility] Authorizing Provider:Vinnie Ortega Collected: 08/26/2019 12:43 PM [facility] MD Beatrice Ordering Location: [facility] Endoscopy Received:08/26/2019 01:56 PM Services Pathologist: Isac Cummins MD Specimen:Biopsy, Gas tric, gastric polyp DIAGNOSIS A. STOMACH, POLYP, BIOPSY: - ANTRAL MUCOSA WITH POLYPOID FOVEOLAR HYPERPL BRITTANY [facility] - NEGATIVE FOR HELICOBACTER PYLORI ORGANISMS B Y WARTHIN STARRY STAIN - NEGATIVE FOR INTESTINAL METAPLASIA, DYSPLASI A, MALIGNANCY Signing Pathologist Direct Phone Line: CPT Code(s) [address] [facility] [address] [facility] CLINICAL HISTORY Procedure: upper endoscopy, biopsy [facility] Pre and postop diagnosis: acute pancreatitis [facility] SPECIMEN SOURCE A. Biopsy, gastric [facility] GROSS DESCRIPTION A. Received in formalin labeled [facility] with the patient's name, [facility] accession number and "gastric biopsy", with the additional description "gastric polyp" is one irregular winston-pink piece of mucosal-covered soft tissue measuring 0.4 x 0.3 x 0.2 cm. The specimen is submitted in toto following filtration in cassette A1. RAFA/pl MICROSCOPIC DESCRIPTION Performed. [facility] SPECIAL STUDIES The interpretation of this c ase included the use of immunohistochemistry or special stains. [facility] Control Slides Examined: In -house known positive controls were evaluated along with the test tissue. These control slides run alongside of the patients sample show appropriate staining. Internal posit charlene and negative controls when available are karla gonzáles Immunohistochemistry technjet dai testing was performed at [facility] where it was developed and its performance characteristics were determined. It has not be en cleared or approved by [facility] [place]. Food and Drug Administration. The FDA [...] Tissue Performing Organization Address City/State/Zipcode Phone Number [address] [address] CENTER after 12/12/2018 Insurance Payer Benefit Plan / Group Subscriber ID Type Phone A ddress MEDICARE MEDICARE A B xxxxxxxxxxx Medicare MEDICAID MEDICAID [facility] xxxxxxxxx Medicaid Advance Directives For more information, please contact:[address] [phone] Code Status Date Activated Date Inactivated Comments Full Code 11/18/2019 4:59 PM 11/19/2019 3:03 PM This code status was determined by: Patient
--- OUTSIDE RECORDS SUMMARY | 2019-12-13 03:02 | XMS REPORT | Continuity of Care Document ---
:1960 Author Organization [facility] t Address [facility] Brennan [address] [place] [id number] Care Team Providers Name Role Phone Pio EPPS, [facility] Reny Oglesby MD Attending Clinician Merchant EPPS Attending Clinician Anoop EPPS Attending Clinician Stew Bond MD Attending Clinician RENY OGLESBY Attending Clinician Unavailable Hector Burgess CRNA Attending Clinician MARISELA Attending Clinician Unavailable FREDERICK Attending Clinician Unavailable RENY OGLESBY Admitting Clinician Unavailable Payers Payer Name Policy Policy Number Effective Expiration Source Type Date Date MEDICAREMEDICARE A xxxxxxxxxxx [facility] [place] OF xxxxxxxxx [place] [place] [facility] Problems Condition Condition Condition Status Onset Resolution Last Treating Co mments Source Name Details Category Date Date Treatment Clinician Date Biliary Biliary Disease Active [facility] Hyperlipid Hyperlipid Problem Active [facility] [place] [facility] Hypertensi Hypertensi Problem Active [facility] [place] [facility] Diabetes Diabetes Problem Active [facility] [place] [facility] Follow up Follow up Problem Active [facility] [place] [facility] Allergies, Adverse Reactions, Alerts Allergy Allergy Status Severity Reaction(s) Onset Inactive Treating Comm ents Source Name Type Date Date Clinician Codeine Drug Active Nausea And [facility] Allergy Vomiting [facility]- [facility] Hydrocod Drug Active Nausea And As per [facility] one-Acet Allergy Vomiting, 08-14 patient, Romina blank - aminophe Other (See 00:00: " it Medi sarah n Comments) 00 wears on Cente r my stomach" hydrocod DA Active [facility] [place] Hydrocod Propensi Active [place] [...] Other Uni versity of Member Heart problem [place] [facility] Natural father Diabetes [facility] Natural father Hypertension [facility] Natural mother Diabetes [facility] Natural mother Heart disease [facility] Natural [facility] Social History Social Habit Start Date Stop Date Quantity Comments Source History of tobacco Current smoker [facility] History SDOH [facility] - Alcohol Std Drinks Medica Center History SDOH [facility] - Alcohol [facility]inge Medical [place] ter Sex Assigned At [facility] Romina blank - Medical Center Cigarettes smoked 2019-11-18 2019-11-[address] [facility] [address] [facility] - current (pack per 00:00:00 00:00:00 Medical Center day) - Reported Cigarette 2019-11-18 2019-11-[address] [facility] [address] [place] - pack-years 00:00:00 00:00:00 [facility] Alcohol Comment 2019-11-17 2019-11-17 socially [facility] St Vanegas kes - 00:00:00 00:00:00 Medical Center History SDOH 2019-08-15 2019-08-[address] [facility] - Alcohol Frequency 00:00:00 00:00:00 [facility] Tobacco Comment 2019-08-15 2019-08-15 quit [address] [facility] - 00:00:00 00:00:00 ago [facility] Alcohol intake 2018-12-10 2018-12-10 Lifetime [facility] thodist 00:00:00 00:00:00 non-drinker (finding) Smoking Status Start Date Stop Date Source Former smoker 2019-11-18 00:00:00 2019-11-18 00:00:[address] [facility] Never smoker [facility] Medications Ordered Filled Start Stop Current Ordering Indication Dosage Frequency Signature Comments Components Source Medication Medication Date Date Medication? Clinician (SIG) Name Name insulin 2020-0 Yes QD Inject [facility] glargine 8-10 subcutaneo [facility]ukes - (LANTUS) 12:35: usly Medical 100 unit/mL 50 nightly Cente r injection Use as directed . lubiproston 2020-0 Yes 8ug Take [address] e (AMITIZA) 8-10 by mouth 2 Romina kes - 8 MCG 12:35: (two) Medical capsule 50 times Center daily as needed . lipase/prot 2020-0 Yes [id number] Take [facility] ease/amylas 8-10 [id number] 36,000 [facility] - e (CREON 12:35: 3D Units by Medic al ORAL) 50 mouth 3 Center (three) times daily . pantoprazol 2020-0 Yes 40mg Q.5D Take [address] e 8-10 by mouth 2 [facility] - (PROTONIX) 12:35: (two) Medica l 40 MG 50 times Center tablet daily . lisinopriL 2020-0 Yes 10mg QD Take [address] (PRINIVIL,Z 5-08 by mouth Luke s - ESTRIL) 10 15:29: daily. Medic al MG tablet 48 Center promethazin 2020-0 Yes 25mg Take [address] e 5-08 by mouth [facility] - (PHENERGAN) 15:29: every 6 Med ical 25 MG 48 (six) Center tablet hours as needed for Nausea. sucralfate 2020-0 Yes 1g Q.25D Take [address] (CARAFATE) 5-08 by mouth 4 Mini es - 1 gram 15:29: (four) Medical tablet 48 times Center daily. atorvastati 2019- Yes 40mg QD Take [address] n (LIPITOR) 5-08 by mouth Luke s - 40 MG 15:29: daily. Medical tablet 47 Center dicyclomine Yes 20mg Take [address] (BENTYL) 20 5-08 by mouth Luke s - mg tablet 15:29: every 6 Medic al 47 (six) Center hours. Vital Signs Vital Name Observation Time Observation Value Comments Source Systolic blood 2019-11-19 11:32:00 126 mm[Hg] [facility] Diastolic blood 2019-11-19 11:32:00 60 mm[Hg] [facility] Heart rate 2019-11-19 11:32:00 57 /min [facility] Body temperature 2019-11-19 11:32:00 35.72 Alysia [facility] Respiratory rate 2019-11-19 11:32:00 20 /min [facility] Oxygen saturation in 2019-11-19 11:32:00 98 /min [facility] Arterial blood by Medical Ce nter Pulse oximetry Body height 2019-11-18 06:58:00 157.5 cm [facility] Body weight Measured 2019-11-18 06:58:00 69.355 kg [facility] BMI 2019-11-18 06:58:00 27.97 kg/m2 [facility] Height 2018-05-24 10:25:00 62 [in_us] [facility] Physician s Weight 2018-05-24 10:25:00 154.9 [lb_av] [facility] Physician s Body Mass Index 2018-05-24 10:25:00 28.33 kg/m2 [facility]ive [facility] Calculated [place] Physician s BP Systolic 2018-04-26 10:21:00 127 mm[Hg] [facility] Physician s BP Diastolic 2018-04-26 10:21:00 76 mm[Hg] [facility] Physician s Height 2018-04-26 10:21:00 62 [in_us] [facility] [place] [facility] Weight 2018-04-26 10:21:00 155.6 [lb_av] [facility] [place] [facility] Body Mass Index 2018-04-26 10:21:00 28.46 kg/m2 Unive rsity of Calculated [place] Physician s Temperature 2018-04-26 10:21:00 97 [degF] Universi ty [facility] Physician s Heart Rate 2018-04-26 10:21:00 73 /min [facility] Physician s Procedures Procedure Date / Time Performed Performing Clinician Jennifer e POCT-GLUCOSE METER 2019-11-19 07:32:00 Jam Davalos [facility] COMPREHENSIVE METABOLIC 2019-11-19 06:19:00 Padmini Armando [facility] HEMOGLOBIN A1C 2019-11-19 05:32:00 [facility] CBC W/PLT COUNT & AUTO 2019-11-19 05:32:00 Padmini Armando [facility] POCT-GLUCOSE METER 2019-11-18 21:05:00 Thang Oden [facility] REPORT OF PROCEDURE - 2019-11-18 11:51:31 Reny [facility] ENDOSCOPY [facility] [place] ERCP 2019-11-18 11:08:00 Reny [facility] ERCP,PAPILLOTOMY 2019-11-18 08:30:00 Reny [facility] s [facility] PROCEDURE W/ C-ARM 2019-11-18 08:30:00 Reny [facility] ERCP,BALLOON SWEEPING 2019-11-18 08:30:00 Reny [facility] POCT-GLUCOSE METER 2019-11-18 07:34:00 Reny [facility] REPORT OF PROCEDURE - 2019-08-26 13:44:33 Reny [facility] ENDOSCOPY [facility] POCT-GLUCOSE METER 2019-08-26 13:14:00 CalebVinnie ruiz [facility] UPPER ENDOSCOPY,BIOPSY 2019-08-26 13:00:00 OtVinnie ruiz [facility] UPPER 2019-08-26 13:00:[address] [facility] - ENDOSCOPY,SUBMUCOSAL [facility] ter INJECTION UPPER 2019-08-26 13:00:00 OtVinnie ruiz [facility] St kes - ENDOSCOPY,ULTRASOUND [facility] ter TISSUE EXAM 2019-08-26 12:43:00 Otsara [facility] POCT-GLUCOSE METER 2019-08-26 11:28:00 sara [facility] Plan of Care Planned Activity Planned Date Details Comments Source Future Scheduled 2020-01-08 INFLUENZA VACCINE [place] [facility] 00:00:00 [code = INFLUENZA VACCINE] Future Scheduled 2019-12-09 INFLUENZA VACCINE (#1) [facility] Test 00:00:00 [code = INFLUENZA Medical Ce nter VACCINE (#1)] Future Scheduled 2008 BREAST CANCER [facility] thodist Test 00:00:00 SCREENING [code = BREAST CANCER SCREENING] Future Scheduled 2008 COLONOSCOPY SCREENING [place] [facility] 00:00:00 [code = COLONOSCOPY SCREENING] Future Scheduled 2008 SHINGLES VACCINES (#1) [place] [facility] 00:00:00 [code = SHINGLES VACCINES (#1)] Future Scheduled 2003-09-[address] [facility] - Test 00:00:00 (procedure) [code = Medical Center 61935300] Future Scheduled 2002-10-[address] [facility] [facility] - Test 00:00:00 WELLNESS (YEAR 2 or Medical Center FIRST YEAR if no IPPE) [code = MEDICARE ANNUAL WELLNESS (YEAR 2 or FIRST YEAR if no IPPE)] Future Scheduled 1979-09-07 Screening for [facility] thodist Test 00:00:00 malignant neoplasm of cervix (procedure) [code = 265927450] Future Scheduled 1979-09-[address] [facility] - Test 00:00:00 malignant neoplasm of Medica l Center cervix (procedure) [code = 469669684] Future Scheduled 1968 DIABETIC FOOT EXAM [place] [facility] Test 00:00:00 [code = DIABETIC FOOT EXAM] Future Scheduled 1968 URINE MICROALBUMIN [place] [facility] Test 00:00:00 [code = URINE MICROALBUMIN] Future Scheduled 1958 DIABETIC RETINAL EYE [place] [facility] 00:00:00 EXAM [code = DIABETIC RETINAL EYE EXAM] Future Scheduled [address] - Test 00:00:00 malignant neoplasm of [facility] breast (procedure) [code = 786677484] Future Scheduled [address] [facility] - Test 00:00:00 malignant neoplasm of [facility] colon (procedure) [code = 525446531] Encounters Start End Encounter Admission Attending Care Care Encounter Source Date/Time Date/Time Type Type Clinicians Facility Department ID 2018-05-24 2018-05-24 RAFAT Apodaca Rives [id number] Univers 10:30:00 10:30:00 t; WILL, Surgery [place] WILL, Physici D.O. ans 2018-04-26 2018-04-26 Karlos ANTONIO, [facility] [id number] Univers 10:15:00 10:15:00 t; nelson SOLIS D.O. [place] WILL, Physici D.O. ans 2018-04-19 2018-04-19 Karlos ANTONIO, [facility] [id number] Univers 10:00:00 10:00:00 t; nelson SOLIS D.O. [place] WILL, Physici D.O. ans 2018-03-27 2018-03-27 Karlos ANTONIO, RAFAT [facility] [id number] Univers 10:30:00 10:30:00 t; nelson SOLIS D.O. [place] WILL, Physici D.O. ans 2018-03-22 2018-03-22 Karlos ANTONIO, RAFAT [facility] [id number] Univers 10:30:00 10:30:00 t; nelson SOLIS D.O. [place] WILL, Physici D.O. ans 2018-03-06 2018-03-06 Appointmen FREDERICK, [facility] UTP [id number] Univers 08:30:00 08:30:00 t; CYRIL MACK M.D. i ty of [facility] [place] Physici ans 2018-02-14 2018-02-14 Appointlindsey ANOTNIO, [facility] UTP [id number] Univers 08:15:00 08:15:00 t; nelson SOLIS D.O. [place] Adrian SOLIS D.O. ans 2018-01-11 2018-01-11 Appointlindsey ANTONIO, [facility] UTP [id number] Univers 10:30:00 10:30:00 t; nelson SOLIS D.O. [place] Adrian SOLIS D.O. ans Results Test Description Test Time Test Comments Results Result Comments Source Hemoglobin A1c 2019-11-19 09:28:00 Test Item Value Reference Range Interpretation Comme nts Hemoglobin A1C (test code = 4548-4) 8.1 % 4.3-6.1 H Lab Interpretation (test code = 13667-1) Abnormal [facility] [id number] 09:28:00 Test Item Value Reference Range Interpretation Comments HEMOGLOBIN A1C (BEAKER) (test code = 8.1 % 4.3-6.1 H 368) POC-Glucose [id number] 07:44:00 Test Item Value Reference Range Interpretation Comments POC-Glucose Meter (test 130 mg/dL 70-110 H : TE STED AT [facility] code = 1538) [address] [facility], 770 30: Director Of Student Financial Services/Techni wendy ID = [id number] for TEZENO, KRISSY Lab Interpretation (test Abnormal code = 82987-7) [facility] [id number] 07:44:00 Test Item Value Reference Range Interpretation Comments POC-GLUCOSE METER 130 mg/dL 70-110 H : TESTED A T [facility] 6720 (BEAKER) (test code = [facility], 1538) [address]: Director Of Student Financial Services/Techni wendy ID = [id number] for TE YAIR, KRISSY Comprehensive metabolic [id number] 06:55:00 Test Item Value Reference Range Interpretation Comments Protein, Total (test 6.8 6.0- 8.3 gm/dL code = 2885-2) Albumin (test code = 3.5 g/dL 3.5-5 98017-2) Alkaline Phosphatase 119 U/L 40-150 (test code = 6768-6) Total Bilirubin (test 0.5 mg/dL 0.2-1.2 code = 1975-2) Sodium (test code = 136 meq/L 488-269 3818-2) Potassium (test code = 4.0 meq/L 3.5-5.1 2823-3) Chloride (test code = 105 meq/L 98-107 2075-0) CO2 (test code = 26 meq/L 22-29 2028-9) BUN (test code = 17 mg/dL 7-21 3094-0) Creatinine (test code 0.77 mg/dL 0.57-1.25 = 2160-0) Glucose (test code = 162 mg/dL 70-105 H 2345-7) Calcium (test code = 8.8 mg/dL 8.4-10.2 05898-9) AST (test code = 24 U/L 5-34 1920-8) ALT (test code = 27 U/L 6-55 1742-6) EGFR (test code = 76 mL/min/1.73 [place] [address]-0) NOT ACCURATE CREATININE CLEARANCE IN PREDICTING GLOMERULAR FILTRATION RATE . ESTIMATED GFR I S NOT APPLICABLE FOR DIALYSIS PATIENTS. TRUDY (test code = TRUDY) Director Of Student Financial Services ID - PIAYA L Lab Interpretation Abnormal (test code = 09024-7) [facility] METABOLIC [id number] 06:55:00 Test Item Value Reference Range Interpretation Comments TOTAL PROTEIN 6.8 gm/dL 6.0-8.3 (BEAKER) (test code = 770) ALBUMIN (BEAKER) 3.5 g/dL 3.5-5.0 (test code = 1145) ALKALINE PHOSPHATASE 119 U/L 40-150 (BEAKER) (test code = 346) BILIRUBIN TOTAL 0.5 mg/dL 0.2-1.2 (BEAKER) (test code = 377) SODIUM (BEAKER) (test 136 meq/L 136-145 code = 381) POTASSIUM (BEAKER) 4.0 meq/L 3.5-5.1 (test code = 379) CHLORIDE (BEAKER) 105 meq/L 98-107 (test code = 382) CO2 (BEAKER) (test 26 meq/L 22-29 code = 355) BLOOD UREA NITROGEN 17 mg/dL 7-21 (BEAKER) (test code = 354) CREATININE (BEAKER) 0.77 mg/dL 0.57-1.25 (test code = 358) GLUCOSE RANDOM 162 mg/dL 70-105 H (BEAKER) (test code = 652) CALCIUM (BEAKER) 8.8 mg/dL 8.4-10.2 (test code = 697) AST (SGOT) (BEAKER) 24 U/L 5-34 (test code = 353) ALT (SGPT) (BEAKER) 27 U/L 6-55 (test code = 347) EGFR (BEAKER) (test 76 mL/min/1.73 [facility] MIGDAL[facility] GFR IS code = 1092) sq m NOT ACCURATE CREATININE CLEARANCE IN PREDICTING GLOMERULAR FILTRATION RATE . ESTIMATED GFR I S NOT APPLICABLE FOR DIALYSIS PATIEN TS. Director Of Student Financial Services ID - PIAYA LCBC with platelet count + automated [id number] 05:55:00 Test Item Value Reference Range Interpretation Comments WBC (test code = 6690-2) 13.1 3.5- 10.5 K/L H RBC (test code = 789-8) 4.21 3.93- 5.22 M/L MCHC (test code = 786-4) 35.1 32.2- 35.5 GM/DL Hematocrit (test code = 4544-3) 37.6 % 34.1-44.9 MCV (test code = 787-2) 89.3 fL 79.4-94.8 MCH (test code = 785-6) 31.4 pg 25.6-32.2 RDW (test code = 788-0) 12.0 % 11.7-14.4 Platelets (test code = 777-3) 295 150- 450 K/CU MM MPV (test code = 59898-0) 9.5 fL 9.4-12.3 nRBC (test code = 413) 0 0- 0 /100 WBC % Neutros (test code = 429) 78 % % Lymphs (test code = 430) 15 % % Monos (test code = 431) 6 % % Eos (test code = 432) 0 % % Baso (test code = 437) 0 % # Neutros (test code = 670) 10.27 1.56- 6.13 K/L H # Lymphs (test code = 414) 1.95 1.18- 3.74 K/L # Monos (test code = 415) 0.81 0.24- 0.36 K/L H # Eos (test code = 416) 0.02 0.04- 0.36 K/L L # Baso (test code = 417) 0.01 0.01- 0.08 K/L Immature Granulocytes-Relative 0 % 0-1 (test code = 2801) Lab Interpretation (test code = Abnormal 18818-2) [facility] W/PLT COUNT & AUTO [id number] 05:55:00 Test Item Value Reference Range Interpretation Comments WHITE BLOOD CELL COUNT (BEAKER) 13.1 K/ L 3.5-10.5 H (test code = 775) RED BLOOD CELL COUNT (BEAKER) 4.21 M/ L 3.93-5.22 (test code = 761) HEMOGLOBIN (BEAKER) (test code = 13.2 GM/DL 11.2-15.7 410) HEMATOCRIT (BEAKER) (test code = 37.6 % 34.1-44.9 411) MEAN CORPUSCULAR VOLUME (BEAKER) 89.3 fL 79.4-94.8 (test code = 753) MEAN CORPUSCULAR HEMOGLOBIN 31.4 pg 25.6-32.2 (BEAKER) (test code = 751) MEAN CORPUSCULAR HEMOGLOBIN CONC 35.1 GM/DL 32.2-35.5 (BEAKER) (test code = 752) RED CELL DISTRIBUTION WIDTH 12.0 % 11.7-14.4 (BEAKER) (test code = 412) PLATELET COUNT (BEAKER) (test 295 K/CU MM 150-450 code = 756) MEAN PLATELET VOLUME (BEAKER) 9.5 fL 9.4-12.3 (test code = 754) NUCLEATED RED BLOOD CELLS 0 /100 WBC 0-0 (BEAKER) (test code = 413) NEUTROPHILS RELATIVE PERCENT 78 % (BEAKER) (test code = 429) LYMPHOCYTES RELATIVE PERCENT 15 % (BEAKER) (test code = 430) MONOCYTES RELATIVE PERCENT 6 % (BEAKER) (test code = 431) EOSINOPHILS RELATIVE PERCENT 0 % (BEAKER) (test code = 432) BASOPHILS RELATIVE PERCENT 0 % (BEAKER) (test code = 437) NEUTROPHILS ABSOLUTE COUNT 10.27 K/ L 1.56-6.13 H (BEAKER) (test code = 670) LYMPHOCYTES ABSOLUTE COUNT 1.95 K/ L 1.18-3.74 (BEAKER) (test code = 414) MONOCYTES ABSOLUTE COUNT (BEAKER) 0.81 K/ L 0.24-0.36 H (test code = 415) EOSINOPHILS ABSOLUTE COUNT 0.02 K/ L 0.04-0.36 L (BEAKER) (test code = 416) BASOPHILS ABSOLUTE COUNT (BEAKER) 0.01 K/ L 0.01-0.08 (test code = 417) IMMATURE GRANULOCYTES-RELATIVE 0 % 0-1 PERCENT (BEAKER) (test code = 2801) POCT-GLUCOSE [id number] 21:17:00 Test Item Value Reference Range Interpretation Comments POC-GLUCOSE METER 255 mg/dL 70-110 H : TESTED A T [facility] 6720 (BEAKER) (test code = [employer] [place], 1538) [address]: Director Of Student Financial Services/Techni wendy ID = [id number] for ABHILASH MARTI [id number] 11:22:39INTRA OP IMAGINGReason for exam:->abnormal imaging Fluoroscopic unit utilized for a procedure performed in the OR. No interpretation was requested. Refer to the operative report for findings. Refer to PACS for patient radiation dose information.FL [id number] 11:22:39 Interface, External Ris In - 11/18/2019 11:22 AM CDTFluoroscopic unit utilized for a procedure performed in the OR. No interpretation was requested. Refer to the operative report for findings. Referto PACS for patient radiation dose information.[facility] [id number] 07:45:00 Test Item Value Reference Range Interpretation Comments POC-GLUCOSE METER 155 mg/dL 70-110 H : TESTED A T [facility] 6720 (BEAKER) (test code = Nitrous.[facility], 1538) 03015: Director Of Student Financial Services/Techni wendy ID = [id number] for ED KATIE WOODWARD Tissue [id number] 09:36:00 Test Item Value Reference Range Interpretation Comments Case Report (test code Surgical Pathology = 104) Report Case: [id number] Authorizing Provider: Vinnie Oglesby Collected: 08/26/2019 12:43 PM MD Beatrice Ordering Location: [facility] Endoscopy Received: 08/26/2019 01:56 PM Services Pathologist: Isac Cummins MD Specimen: Biopsy, Gastric, gastric polyp DIAGNOSIS (test code = r6sufNQdIRFls9uuPZOkhK 3220) FuZzEwMzNcZnRuYmpcdWMx YVxuxwXoHZdyi7BwT7YkWs AwMFxhbnNpXGRlZmxhbmcx XHRyCSJ0pvBcCCWlKOmhUF YeTThjDj2ewJKbtLlwNqYd JHFhm1zrwdTOgzgkxPh5u0 xzIMWdXoN4rQAqWEejC0qu jtNtcTBtNEAaPBp4zW61OI SuvP6ruVVxXHpxjnDvFpV9 GAjoZZJzReZ6FFSahQSvKU FpF6pcEJHaKJvxSAUvCGeo rBJiFTK7bKhcu2N4xURkcM NqmDurAlXqXdWoYQGJw1Mq EBa4sUwvC0BwEIXrLwM4lB QgUGFyYWdyYXBoIEZvbnQ7 kH18JMlgkyY9aKGqi1Pvc7 8zk732fW6vxJSbYIU3AUTe FVFncAHrFOMqOFR6LWNxvO TqX7w2BjLhfDBnO2E6SjNk bGKyO4R5IzGhbJGiL8G5Hf ProQUiJRPcnQGaOi0tjCIe aKAocf0stq09WBO7k9JisK gvXAY6RRT6EpWnDs7rnYQd KFDaZK5cOjNpdTFcIUCsxa 71zKqkKXbqgdOpjS5aUjNi HJ6cjTgch75aCIEbCH5lhU 0vno0nnzVtUDbkoFRzsRV3 kdkvQQH4BHAjpcUmb2Ydd2 sqSpBweuEyJ9sqI9AsTNVh HPMzUQAtNyRdlcGsw1Jlz3 AawIXjbIa0w0odFUHlTOCf kTbcm7djUHJ8UPZbU4S1sH Gwe1frYPezSKAouGU6eqfs GTezOYOjikV0azmqLVhqRJ HohHD7ubbzNOcrJGXlRmV2 gttvYJqnNPNxTAT5FCorp1 69ILR0LEybDrhgRKiyNZLx bmNvbnRccGduZGVjXHBsYW luXHBsYWluXGYwXGZzMjRc oYWvGNntf1XjvpRiuWuwZH DbEDr9nqCfkmvxsAg0vSZr oMkqPXBgyJxwhJ3kPbGgUm CgIKdqLM1eAYOaZ1brePYg TFCrIDAeZ9qnBxUysU1wjL xmMVxmczIwIEEuIFxwbGFp blxmMVxmczIwXGxhbmcxMD ByGPblR3pdYnPfGBCwvZem PZrib3WnAWOlJCUtZyhuro ElXNv2vvCpKFGPN11YY9fm IFxwbGFpblxmMVxmczIwXG hkfxftLEMuUMjgM9tqKuSy KBIfkBfbKGthm2AuLSAyJP BuOmOjIY2QDTPeGRknpVKf blxmMVxmczIwXGxhbmcxMD NzIDmpT7kxVqKvSPJvkLdf XItgy9BsUDYuLUVxCboaic QcIQk8veAlMPDDH5LULWRj YWluXGYxXGZzMjBcbGFuZz EwMzNcaGljaFxmMVxkYmNo GATxLBdpD2phLqCvFkHcKZ BZXHBsYWluXGYxXGZzMjBc bGFuZzEwMzNcaGljaFxmMV dlJfUfCAZhMSsxF9kmDhIq X6GaEZPcAoRugEQqF3mzUb ibHXHruSqmuI7oAmOnWrFs QYluVH3iCSJwS2mbwBBlYY GnWCIpS8zkGsNizL7fjOgy HOduxlWbMNCnxDchsS7hOb FiGjMrVPljJY5dPOTrF9fy yGNxQZDaDWGbI1teOnXciH 9jaFxmMVxjZjJcZnMyMFxs dHJjaCAtXHBsYWluXGYxXG ZzMjBcbGFuZzEwMzNcaGlj aFxmMVxkYmNoXGYxXGxvY2 hcZjFcZnMyMCAgXHBsYWlu XGYxXGZzMjBcbGFuZzEwMz NcaGljaFxmMVxkYmNoXGYx IMrnM4ruJaTcP6MdAYAtDt HphGRfC3keSDXPSGXCHCOZ UHDYW7AhZ6zXDGPjnVzbcM 9uKdNlFtTuAUduVJ8bGPUm Y7epqROiHRXhYNAbL7faFv AifV8ynYlnLVhemqWiCJHS CKvDG9nSHFPDYsDDXRYNXD hCWONFINqIL5jAIAFmisBe XHBsYWluXGYxXGZzMjBcbG FuZzEwMzNcaGljaFxmMVxk JkIjFWLhEHtiK8xhDaXpK5 MgFQSbNwZxuUPpA0rqSMid bGFpblxmMVxmczIwXGxhbm haMDPiHFbxY6zbVoRdVOWf bRryOTvdg5PzNCYwRVOzQz AgIFxwbGFpblxmMVxmczIw UPlgruemHHTpZOxgD9ksGx CiGYXfiYqaNNrde4VgEIXp WHJqEiwyqqIsSMq6eaCwYB EXNZdPZOaHROUYK3JqLAVU PHSOWgHDCTWWBZNAWP5KUC XROigYEfoYXGDiQjplF8BU TTqYEqYXADYGAjgiY2TFVX 1jwQLtMETserIah2VqRNDe EMT5XBrfERogpOqbnDEdhq saYRssvfH3MCMlHYmqAUBh XGZzMjBcbGFuZzEwMzNcaG ljaFxmMVxkYmNoXGYxXGxv N1reUwSlRbZjFBQnBBAtFT luXGYxXGZzMjBcbGFuZzEw MzNcaGljaFxmMVxkYmNoXG HkPBldE2nbQqArP1NkGHJw KbYswTIlW4ruSGfayASmpr xmMVxmczIwXGxhbmcxMDMz BAmjG1mdUkIhUYPzvVgfUI exw1PvVVMzVIGuGcMkTOmb bGFpblxmMVxmczIwXGxhbm yuSUQdBYlxU8iaRmWyKHNe lYayIKlra0SdGBFiXJBzFy rgrcMzZVk3fuZuBCPWFWlE GXtYBIRRJ2OiBH8NPVXSZS 1TQJIXCCPIBXqQC6nSCRBL ZFZWOQNXCMGqEP2XDZsGEx YPS4oyjYtefM9uQwIjUhNq EPveYM9jGARgC5phaFNrEY FuJJIrQ9zdNrCuoL6tjIlq DLiogpDnZXQmiilnDLW5n5 xydGYxXHNzdGUxODAwMFxh bnNpXGRlZmxhbmcxMDMzXG K8nnFqMZGsWHwvSOWyCPjg Ud0wzCDrvUviEoViUBPlx5 dqsfVVevewyAo7c5alUIUc BrV2kJLlMHzwT3roosDonE BrUUGiZRe9cP47GSXqtU8i zDPrPFqhmpJoMzY4LDayOF JhGiD5HPRqfQWsBPXtD5es ZWQwXGdyZWVuMFxibHVlMC N0jAzbw4H2jUYhtIRrrZzp ZbVuDdLeIcOXa8BhVRd4vE vsQ5ZoKCOfRxB2iSErVJVt ZUcrOASbTBYqviS2fX67YL aturH7pMWuu0Hns12bh068 eF1nfHMoGHD7SWJmFGSnjG LiRCYuDFY2ZRHdrWXtC3aw FKJkHA4ibixaRVirNZodYG IrgBG8GKGfuGDqB4CfXYDd QWaiRLRxlxq7OnKfXg4ciD JrjLswZGnai9xjj9gadDBl Btm9UHLyWeXnZqskEShcv5 Lwu1nfHJUygf5cPKE9iTHm nAmgb1G7rGIfPBYixXKxOK XvEZ6meZZiYNGwdY7igtwk XHBnYnJkcmhlYWRccGdicm LwJn6lhVmfGFT3JQkeE9yw sS6oCbE7EFrkX9nieP4wLZ y5MXwuOHKtuSV9ylS0AGWa uAUtN8PjmD8vGIEvBO7ljx q0b1vqYSS2MQslOIAgNaM4 xcT1QPVlnTVhPGSuoYgeHK lfj984GLW3BfVzCMOuf1Ht G7LceUhhL79nzPocI16tLT BnvUqnwC2zbFgxwA1xXnZh JjGbDJayvQdlGN1pDJXjX1 gicOJlOLUaTBMsC1acZrOu dU6xhOmiQHagpwEhCNIxUl a6FURaoPZuBTWpEbv8YRVs UMKuU93tdebfHWH1jW6wj8 hda8RvFCylOHE5AFQgh42c UKnrisS8GPwkAs6xAeDrBY G8YDxdNLA8qS== CPT Code(s) (test code [email or web address] = 3357) MdLMQvo8wlTYJznEBuRtSi MzNcZnRuYmpcdWMxXGRlZm Fwu6edi274yBGdg9hfGTDi UiB1pWVoSLUcfKTpB588x1 sco8dbceHjsVV0OTQkYDM5 VBowagIapeW4CJwynUJxTa Q3ASecloYvTGmlcgXpcuNr Dkc9GVGuB319JGL0pDqsd0 fdRMT7GHSrDFSlAyUuPk4c pLBfL460YDPsDTXYJNUcsO o6LCOyqkRdivEsnVBPi992 I016o8kkRKRaymDexXlGoh epa7edF629PDYduAJgxaRv UpVzTPRscEQcdSJ0IJLkFR 3tvckhTyYiEV1rfdkhJqAp YV9wuyp0NoXkBH7vrklpPu AhJUrnMHEzmgqrVMEvc5Vv okbfWQ1oD1Dxy8I4gQ0btW ZlBDMplUCmGcElDNRweg5h cRUjSRdor0ExXMM1xgM0oP WhoGNfWPMoKW38Zecpx6Sb KbcvSVN4CLDnbaZgb5Qit6 xrOkIzccFeJ6lnI2RdZELh RUHdFCAqZgAcmmFnd9Hem6 AagRGhxCd3n3wxQGGkEIYp oFfaq7dtDGE4KWPpZ5D3kT Hae5jdVNoiQJIcpAJ5vypj MBckMWEncfT5rhanVOoiNM BlsJZ0ncvtHPioHIWnLdZ0 mibhBGhpSRGsESL0ULunt7 00HRL9FFpxOddnOIuwWULv bmNvbnRccGduZGVjXHBsYW luXHBsYWluXGYwXGZzMjRc oGdiyLtsbQ3oDrBuCvWnKX beHM5wFSYjS6jjlTGbSHEg IXPkR1goZkTpmU7abVasKJ phauZfONy6DqP6TTWylcN2 ODMxMlxwYXJ9 CLINICAL HISTORY (test v6driDYcQTJzdZKbRbDkGS code = 3356) TqMKVoz3qcBFTsnEVuVfBd MzNcZnRuYmpcdWMxXGRlZm Yqo8pht412eUGcf6ccXIBh RoK3hJLqLAJnfROoI944EB TkELunw5knf9EwTTOejMDm e1Y5HBDZtiudaLl8cNepS7 1km8V8DvkxU4omKSKzYFax TRFsNCnhjIScXTT3UPZwBN T3SDnwshFzuhG5ZAgdlTQx LuJ2OVc1x2htuEstPPIhJT S7y0hxZVhiqpUnYT8ugz0q cPx9c4tzgcYaCIVvUMMprA TINKBqE8DcoFzaQx1fxHw3 hNwgWyotLBO8Qzo1NM5ese 49bgv6yUniOVJmmapaFmZ6 HMksJLXvooauOAk6RHqaLT JnbDcyMFxtYXJncjcyMFxt YXJndDcyMFxtYXJnYjcyMF pyJSOkOML8CHyfa782XZL9 XSjdl1fcm1mmoCIyKvi4MS RlTqOaIbvzHZihp1Yyn9pt JGCesu3jXDX6gLMfoSrsz5 E6aLCgJZQwiGEfadOvYICa VkH3AMvnJS4cle40EPOeTN D9rz6qmPBafPgmkyMfbKHv ACtdF3XxUMKnd591DQFfK8 DtUPNwx9G6xiDhKbOtSESz vLL8ikF0IWUiDDg7kIYuak P3buJrkIZtQ1uubS62JwJb eSKzB8ZenG91JsBawLLrV0 LpcN15XdVxsTVwY1OrcA61 EqWijBSrFGFsuFOcCu9euT KleHSvs8UlmCKqJFhbY50u u635WCYevuLwK5msgRNkil xwbGFpblxmMFxmczIwXHFs XHBsYWluXGYwXGZzMjBccG xprJ1pReQkLmOhNEZBog3v UDU7rzK2PMLwkXZfBQYbZN 1kS40ekWhpOjihaMJ1BOCo jcGIxqWlDE2zPXElr4XlhA RjyWIogx6wvFO9WJLkiVJo VSOicfXvCAP9eKAgoeDiyD FyfQ== SPECIMEN SOURCE (test k8rrgKXfLTGeaJHfGkZaQC code = 3377) NbREQgo1wkWEQfrMArBtZh MzNcZnRuYmpcdWMxXGRlZm Tfy1zak605nTHxg6ylIXHw RiT1lFBdMAFupUOvB724o2 mue9rzxqHldCM7OGNcCCE9 YFoashHwsiU1VXkcuISuOz C8SMouxgNyROhrgcFvknJi Yfy2CDUcQ067YRM1fVpko4 pnZSM4DDFuWSSfXwKhQv4j hXSlY702WJTzPLQBQGBwoS k6VEFbikTuarJtsZVDs958 Z799c5bbZXYqimTlgPhGyi zsa0aoL004XPKxqSTsrwBc KvTuMYCabCBgqZP1OVLsDD 5phxnxUrNzZL0mzccnYjBz DB2tvlc2QpFsBE9swdkkNi McCZzzGGQmtekzLTPqp2Yz iiifEQ3sF2Kpi8X2nC6mjM BsORVdqLDfGuKeQZKzmm4x gSYjPCyfu8SkOZG7hrL0oK OuvGAdAHHuTF09Wpfbs8Vr TnfqMWJ5RFAaffNbb1Vyd6 ywKcYfxfSuQ5xgE7XnCOZw TPAjPDBgPoUdpjObe0Duf4 FnmWKcsFv2c6jyWEAfULNs gHhzc8npPMI0NOOnE5P6uU Foa8huZPeaAGIkpVJ7bjin VDikEDLxksC0kzdvZFclEZ UbrWY6smdgDWliTOLkGrT3 ngtjLIplZUXsHXL5GZptf1 74BUS1ORazZfuwLXrkQPXy bmNvbnRccGduZGVjXHBsYW luXHBsYWluXGYwXGZzMjRc lHqdzIpalB7hKuHbFlBlOY wwLG7kDACrQ6pvcFPyQLBj BYIoH5rmEbIxhW4lpIvuZP gokeCdISOeKFMpy4AkrVwr U4BslHHoV3hhGER8 GROSS DESCRIPTION (test v8nukPMqQJYobOArOgGvWM code = 3366) FjAHLej7jqVZBvaPLjEiKg MzNcZnRuYmpcdWMxXGRlZm Jyl8zjl594pOKar9nkGTHu WoZ4kZZdKRDrlGEeM047GJ QnIYuxk4nuc3WeIYQwmPFx d4F2MMBSoipgwVl6mPnxH7 8uo6O7ZlhyF3hqLUKsZHbp OYJcCZesfHQzTRP7AIObOA Y8MNkgryRunzJ4AZdigYSw DtZ2MOk9k7qrrDozUAXcJA H6r6wzSYpsffXpJY8tky0x nRv0h4vgcvLmVYXoONThlB GDBPLaK5SaeFufAj1fvRw6 dMtdCdtbCLG2Hhg3XJ6nce 83jgr3lAihSXDinxhxFwT3 VUzyUFLmotgsJLr8EFbqMC JnbDcyMFxtYXJncjcyMFxt YXJndDcyMFxtYXJnYjcyMF izBVJlUAZ9QQaya641PFB8 ROjgi7aen2disTIwMuu5NF EvLwYyTwxeWBoiy7Biy8vm VOPopk4sWSG5fYMjgImam7 S8aWIvKXGfdBQgydKyOHFj OdQ3ZCvgAB7bce46EICkVE X1kp9tlWPruOpesqOlxOPl YOyzG7VeTDRga649SKFaF4 GyPWMcl7E7wfFgLaSlAIEe bPJ9hdO0ENTmIYr1yJOsyy A4bmTkiDWnM2lbiY27ExBk bZQmB0GgmQ24ApMwiAOwK7 RwaZ82DdTmjMDdG7HdvN55 NgPeyMTkZXXziXMjFz1kuB RdpLPjt5NkuEDmMKutQ71p l135HPWnxdOaS5sweTDwnj xwbGFpblxmMFxmczIwXHFs XHBsYWluXGYwXGZzMjBccG radI6uVaEbLnYpNJSXHwAe XHBsYWluXGYxXGZzMjAgUm CpYJl8GBFtuZ8uNt3anYGu pU4heEDfOYbcTTA7eBQlUP GpREWlWYJtCU88A9GxnqDa HIwyLSIwNAGeuG9oJB76iL VayhKdkjLllRpsgZ3rOtIs HaRfEEUqMggrb6AshHLaLf cwxOL5UchdDRQqRSfbBSOa KXEzSuRra7q7hII6dOPgWU KtsQAts67kdTZrCQLdcjqr dGlvblxwbGFpblxmMFxmcz GdTHIeN0IrlKMyXtAbi6y4 kUIxvPDjd13sEDhwhJDuff xmMVxmczIwIGlycmVndWxh clxwbGFpblxmMFxmczIwIC S5GS3vfMnnbkXgvXTsBRQu QqDiiMXmc3KeHAHizsFdZX Lif46kmVK8vIXekFElfHBe v1XapH2bZEGqDXO5JVZrRb M2UXNtCoRldR8rKOsvgWYh blxmMVxmczIwIFRoZSBzcG XosW4zdvCzfrBleQUqoAU9 BBAqpR8dtB24ewLuq3vyu2 dpbmcgZmlsdHJhdGlvbiBp pgNyDVDaBSM3UFhyhBOmqw xqHFpnzcVyQKHTYE9yQbQv cGxccGFyfQ== MICROSCOPIC DESCRIPTION x4xqaFDgPAVoiJMePhWiAM (test code = 3371) DsZNShl5wiXVLolCUpMiHe MzNcZnRuYmpcdWMxXGRlZm Den4saa179zWTbm1ogXMUf TpX4vVSsANKmiVQjT885EC XtCHxhp4ugs8PqQJYqbHLi j0Q6JWAGqifbcUl9iMxvZ9 7cp3E5MxioC2bpONFdSKyn RYVsHIuavFDvTNC0BQQuWY N3ZMiwhlWfdvN1YRunbNRn CnC7THs6p6fgiPjhJSPdWO D2p5uiEIudyhNbFF2kvv9i fYr8w9jiifJjGYSxEDCoqE XRQCLhQ1SfoZfxDq8oqDe4 yZmzEgvfKVA4Ytf4SY4owc 02neh2xHuwYYPeqsxwEqP4 KKsdLKGqdodiZRz5TFiyBY JnbDcyMFxtYXJncjcyMFxt YXJndDcyMFxtYXJnYjcyMF juTYOvSVW0HQkei535NDQ8 JHilo0vav4xaeWAxWya5QP YyMdBrIrdfGFmrb8Hvo5pe ETVpkm9fKIO7zPWmyQsli7 F7fUWxKWPxxCMymhWaRSMx xq40lJTswJQdoFVkpl6nwn DnrTOhpHPgOIS5jSTmboQb REOtxBHmHVYrSB6owKIxTT PvqF9rfcyvBSUqNnJuavxq HSPdzTcgsuLlSw0maUvlGV V1WTpdG5ldzR8dLrS2RWpd Z5jyqT5gQDt0KSpdqJF1DW ThpP7bMH9ycstbi1rsSzNq QY5haxmln5cbKpDzLY0ifm c2b7yaYzLcDK6ynjmmn4gf NzIwXGhlYWRlcnkwXGZvb3 XnkrpiZVDot9LlB9IvgBvn B02gmCwgL74zODJspOljgW 3gtSeeaW6nTnAtEkFtXHhi bFxwbGFpblxmMFxmczIwXH BsYWluXGYxXGZzMjAgUGVy So9xmCXkNkyaZEXarJUozK == SPECIAL STUDIES (test u8vecDQtVPJmy0jvUMPokB code = 3376) FuZzEwMzNcZnRuYmpcdWMx BWqfjiHhFUlwl1KxL4VtJx AwMFxhbnNpXGRlZmxhbmcx ZZUkGPI3mtEdNVBpVTktNT QoZVdoKb6jjOQwyNnhXdDn AKOjf1ieabMAnaannIn3x3 qeOXUdXyM0rCGhOByyB9il inUfsONgO0ImiXMqaDo7j4 rbBcXxHzB2eNLbWMxcT6dr imFqzEIdFDWoFIg3uN21TO QwkJ6suSMzXKgowpGrBzI4 EHshNRNhYfV7UHBmlNCbRO TiV8neXAOcPQhjEGUzCPvt iYWlMJF5pQhqh0S1rATncZ UhiGptQuHsLfSfQuTUp6Il YBj8dOkvS1PeJHJrNgE1aW QgUGFyYWdyYXBoIEZvbnQ7 jAtqbiIos07reVVkMFUnUP IqHbTqiKxwDWCvMROAp2Hg kYviOHM7jBg4pMdtKpfwAP M8Quh5GV1wgj40ion6hKtk QXAaaofsCdM3VYsbDSFxto zhFFr6KCiwLURoyEW6YTMn hCRtK2SxSLAhAS4adzv9OI C4CQunPJZlFpF3GLHceRWl JGSfgRfzOLlyo100ODD8Sy IzUT3eE5Cyo3U7cD4bvCDd LXQioKXqKyKjQPBack6scS QwJVhjk3NhSWH0emT0qNXg rAJlKWPbAV69Ezvpm4CiBj mvu6HdI54grSR3EOsgn8lm BD7yWeM8udJkXVgez2rowA 8kWyC2BNbeRK1zOC1gCTVb uU7nenyeAZHwPfWgjvllLU QviVgecaDqRl0wlFnqWFA6 EIceA9yhuF5wEpP7TWsyC1 mzeB3fZGy4UCkybXI5SNQh hL9iHQ3elubkn0ukNQpvJK meQAVgwyL9odS4ROFshOWv C1LxrA3qNOWdGT2waprkc2 biJAY3OFkaJPRmCHU3XmDc AFJch0Wscji2RtYxp7WjlN OzIPrxA91st674DKSbryEa Y3uxxCKokvskwPRfvxzzOZ wsyzS5SWRiZXIsYWodKSJx XGZzMjJcbGFuZzEwMzNcaG ljaFxmMVxkYmNoXGYxXGxv X3lwKhOlU9JuTPFbRrUmXV jiGCvwdOGtqETtoJN1gC0u MD4cOACiiXWjT1CqRVIjol PbeRGvYJF0bAGahVJnAY6n GUmvsKMrl6ftg6LwN7cwbP fbkRX2OS6nXTQhALPmKTfk l4QbuC4uAkxcpHTyluwzUO xmczIyXGxhbmcxMDMzXGhp Q7ypVlNgBANdiPoiJSibo9 NoXGYxXGNmMlxmczIyXGx0 cmNoXHBhclxwYXJccGxhaW 0tJpSrLyKjWqgdDH2iYMPi Q5splCVpGYDiZXPeC4lyFh IbvJ7rgSknVJyeQzSgZmHw ZeJDo967qn5eAQRnvWSrsc DKhJDxrS6kZIuoDYqwXRik qDNnGEvig0lpDFJja9x0vF JwCEFxmqImk7uuMVohvuVn FLKwyLXtfBRkJSJkf45tPI vxxXxhoJozAIXtf1BraTim n4KaBbJmPKlqq6OmJ56wpY JvbCBzbGlkZXMgcnVuIGFs r89to6efRJHgQeW4uKKfcG U6qHTyuXOkt5NbnBfyMXRf n1zuTBBtey6krfvzjSLdf5 JmsI3ebzlmTOjrcBFuwwAe KOCcg2o1qXGyVUWjDGYjMJ rlnLy6RCNel044uf7mcbO3 wODkXPJ3BDulSUBzGCUzdw UgZXZhbHVhdGVkXHBsYWlu XGYxXGZzMjJcbGFuZzEwMz NcaGljaFxmMVxkYmNoXGYx XWsxI7hbKqCjO8LoQMNkSn RqlDVfA8wheUBpIXLhRRxw XGYxXGZzMjJcbGFuZzEwMz NcaGljaFxmMVxkYmNoXGYx ERpsY9zcCeXyX7FrIDMsLi IgIFxwbGFpblxmMVxmczIy OPidhdeyDMCoCTdqC0mdNr ExKOMduJrqSSuxp3BpPHLd STIkGjoiwlIzHJa8teNeMX BhclxwbGFpblxmMVxmczIy UWuxmsutKXAqWWkkU0asNa KdUAEwpPqcYThzd4NaRFTb XGNmMlxmczIyIEltbXVub2 abs8BzQ8wvaObwzDO9VMDz O4oktXLlwOD8QWZ2aG0uYU kdgjMlEGIkn4JkTXXjMUTl PnF2oB6mRGM0GjJZuBdxGF BsYWluXGYxXGZzMjJcbGFu ZzEwMzNcaGljaFxmMVxkYm DyUSVlYZjkE6uyVcMpP8Aw XGFvTvMikCjkRGviDLe5Lm xwbGFpblxmMVxmczIyXGxh rfopCEJvIJqzR0pzFzXcBQ KgvLhkXZrgd1BrJEZmPJRy MlxmczIyIHMgTWVkaWNhbC CXDT92RVTsPSPbhVrepD2s pGRYXFRvdrC8e3J1LEsjPS XfGGy7NKxyxoFdCAVisG3r JQJxQY5nMDs3pyEgAVRrd2 SjRG8iDGMlvTGqELG0ZDZn a0DpP2Suf1DqZEGtDVZdyj 7wztFaIhYJtMBtKQUhmb78 LYXaML1lI1hoFBKeZTOtua WrbBYcd6SgOXOogYH5tDBa BT0FMdCSp18oNRHfDRQYed VqJDOtxGwpsCI0gmZ2cL6w LiBUaGUgRkRBIGhhcyBkZX Bmdx3zifFyDXZjBEQhq6Dg bFAsiZNkpmFbE9Mfu5UlXO Yyhv22IXbkoWOnkb36KF8b D2Zrg7IbzJ6zHFyaJETxg0 UtfJAszVIaNXMmh6VdX1rd skmkCRrbzPRmfW2qWJOnIU q8MUAcl4VgQYEuy8BrGzVe ilMqTCNxPMEaAPVolH92PD X9kSbjmGzdcaDzFJ3hTIUk zkKcTKRyPEPswS9mYFniov QlJSExjbW9p0K6XTitKDFl exYcTazwIBT5mdEmtgP1nG PkB1lksjmtTYhoBMPgb7Aa xQ3hjJXLnPMml8YhmWYczZ BEhDHbDT0lnrEzFP4gNYH6 ODggKENMSUEtODgpIGFzIH P9CKysVnneQBG2tpGbQDQo p2ReANvgB4fiL39nlGmdlL m1gLSnlFvavHEpvHWqTGYo haS6o9Z3XASmu0LjoxvbWC BsYWluXGYyXGZzMjJcbGFu ZzEwMzNcaGljaFxmMlxkYm LaLPYiDTvlK1jhSbGdYiHr QomeKHN7rV== [facility] [id number] 09:36:00Surgical Pathology Report Case: [id number] Authorizing Provider: Vinnie Oglesby Collected: 08/26/2019 12:43 PM MD Beatrice Ordering[facility] OQ[facility] Endoscopy Received: 08/26/2019 01:56 PM Services Pathologist: Isac Cummins MD Specimen: Biopsy, Gastric, gastric polyp A. STOMACH, POLYP, BIOPSY: - ANTRAL MUCOSA WITH POLYPOID FOVEOLAR HYPERPLASIA - NEGATIVE FOR HELICOBACTER PYLORI ORGANISMS BY WARTHIN STARRY STAIN - NEGATIVE FOR INTESTINAL METAPLASIA, DYSPLASIA, MALIGNANCY Signing Pathologist Direct Phone Line: [phone] signed by Isac Cummins MD on 08/27/2019 at 9:36 [id number]: upper endoscopy, biopsyPre and postop diagnosis: acute [...] evaluated Immunohistochemistry technical testing was performed at [facility], Pathology Laboratory where it was developed and [...] qualified to perform high complexity clinical laboratory testing.POCT-GLUCOSE [id number] 13:26:00 Test Item Value Reference Range Interpretation Comments POC-GLUCOSE METER 122 mg/dL 70-110 H : TESTED A T [facility] (Relative.ai) (test code = Nitrous.IO [facility], 153) [address]: Director Of Student Financial Services/Techni wendy ID = [id number] for Th Ilda louis POCT-GLUCOSE [id number] 11:40:00 Test Item Value Reference Range Interpretation Comments POC-GLUCOSE METER 137 mg/dL 70-110 H : TESTED A T [facility] (Relative.ai) (test code = [employer] [facility], 153) [id number]: Director Of Student Financial Services/Techni wendy ID = [id number] for ED WARDS, KATIE COLON SEGMENT RESEC.NOT [id number] 19:21:00 RUN DATE: 11/14/18 [facility] PAGE 1 RUN TIME: 810 Specimen Inquiry RUN USER: INTERFACE PATIENT: DAISY HAMMER LOC: U #: [id number] AGE/SX: 58/F ROOM: [facility] RE11/11/18REG DR: Betito Collazo MD : 56 BED: A DIS: 11/13/18 STATUS: DIS Sharla TLOC: SPEC #: [id number] RECD: 11/11/18 STATUS: S[place]y REQ #: [id number] CRISTINO: 11/11/18- SUBM DR: Betito Collazo MD ENTERED: 11/11/18 SP TYPE: COLONR NIDIA DR: ORDERED: LEVEL V SURGICA CODES: [id number] - COLON, NOS PROCEDURES: LEVEL V SURGICA (Incomplete) TISSUES: COLON, NOS - RECTOSIGMOID DIVERTICULITIS CLINICAL HISTORY 58 year old, diverticulitis (wpd) FINAL DIAGNOSIS Designated "rectosigmoid diverticulitis", segmental resection: - diverticular disease with peridiverticular fibrosis - intestinal rings - unremarkable CPT code(s): 59136 pkg/wpd 11/13/18 GROSS DESCRIPTION ANATOMIC SOURCE OFTISSUE [...] and contains unremarkable mucosa and surrounding tissue. Blue Line Operator sections are submitted in A2. The [...] Specimen Inquiry RUN USER: INTERFACE SPEC #: [id number] PATIENT: DAISY HAMMER #[id number] (Continued) GROSS DESCRIPTION (Continued) 1.0 cm and containing green-brown fecal material. No discrete perforationor discoloration in those areas are noted. Blue Line Operator sections of the intestine with the diverticula are submitted in A3 - A8. Examination of attached adipose tissue reveals no discrete lymph nodes. Blue Line Operator sections are submitted in A9 - A16. /wpd 11/11/18 @ 4019 MICROSCOPIC DESCRIPTION The specimen consists of a segment of rectosigmoid colon containing numerous diverticula which extend through the muscularis into the rectosigmoid adipose tissue. Foci of fibrosis are present adjacent to the diverticula. No granulomas, dysplasia or neoplasia are identified. The intestinal rings are unremarkable. abram/domonique 11/13/18 Signed Deena Storm 11/13/18 192 ENDOF REPORT [id number] 07:10:00 Test Item Value Reference Range Interpretation Comments GLUHUSSAIN (test code = GLUHUSSAIN) 180 mg/dL 65-110 H COMPREHENSIVE METABOLIC [id number] 05:48:00 Test Item Value Reference Range Interpretation [...] 106 units/L 46-116 N code = ALKP) [id number] 05:48:00 Test Item Value Reference Range Interpretation Comments MAGNESIUM (test code = MAG) 1.8 mg/dL 1.8-2.4 N CBC W/AUTO [id number] 04:49:00 Test Item Value Reference Range Interpretation [...] REQUIRED (test NORMAL NORMAL code = PLTMR) [id number] 21:57:00 Test Item Value Reference Range Interpretation Comments GLUBED (test code = GLUBED) 278 mg/dL 65-110 H [id number] 17:26:00 Test Item Value Reference Range Interpretation Comments GLUBED (test code = 292 mg/dL 65-110 H Hypoglyc emic Protoco GLUBED) [id number] 12:11:00 Test Item Value Reference Range Interpretation Comments GLUBED (test code = GLUBED) 131 mg/dL 65-110 H [id number] 07:23:00 Test Item Value Reference Range Interpretation Comments GLUBED (test code = GLUBED) 110 mg/dL 65-110 N CHEMISTRY 7 [id number] 05:23:00 Test Item Value Reference Range Interpretation [...] code = CA) 7.8 mg/dL 8.4-10.2 L [id number] 05:23:00 Test Item Value Reference Range Interpretation Comments MAGNESIUM (test code = MAG) 1.8 mg/dL 1.8-2.4 N CBC W/AUTO [id number] 05:19:00 Test Item Value Reference Range Interpretation [...] REQUIRED (test NORMAL NORMAL code = PLTMR) [id number] 22:07:00 Test Item Value Reference Range Interpretation Comments GLUBED (test code = GLUBED) 171 mg/dL 65-110 H [id number] 17:41:00 Test Item Value Reference Range Interpretation Comments GLUBED (test code = GLUBED) 157 mg/dL 65-110 H [id number] 13:26:00 Test Item Value Reference Range Interpretation Comments GLUBED (test code = GLUBED) 154 mg/dL 65-110 H [id number] 06:54:00 Test Item Value Reference Range Interpretation Comments GLUBED (test code = GLUBED) 143 mg/dL 65-110 H CHEMISTRY 7 [id number] 13:07:00 Test Item Value Reference Range Interpretation [...] = CA) 8.5 mg/dL 8.4-10.2 N HGB [id number] 12:51:00 Test Item Value Reference Range Interpretation Comments HEMOGLOBIN (test code = HGB) 13.6 g/dL 10.7-13.9 N HEMATOCRIT (test code = HCT) 40.3 % 32.1-42.1 N
[2019-12-13] MEDS ORDERED: MAGNE/ALUM HYDROXD 30 ML UCUP ONE (03:16)
[2019-12-13] MEDS ORDERED: LIDOCAINE VISCOUS 2% SOLN 15 ML UDC ONE (03:16)
--- NOTE | 2019-12-13 04:12 | ER ---
Nurse's Notes [facility] Name: Robyn Carrion Age: 59 yrs Sex: Female : 1960 Arrival Date: 12/13/2019 Time: 02:59 Bed 3 Private MD: Diagnosis: Dysphagia Presentation: 12/12 03:01 Chief complaint: EMS states: PATIENT WOKE UP IN THE MIDDLE OF THE NIGHT, UNCONTROLLABLE rv COUGHING, GAGGING, CHOKING. WITH HISTORY OF FERNANDO'S SYNDROME. VITAL SIGNS STABLE. OXYGEN SATURATION AT 100%. ERCP DONE THREE WEEKS AGO. Coronavirus screen: At this time, unable to obtain information related to travel outside the [place] At this time, the client does not indicate any symptoms associated with coronavirus-19. Ebola Screen: No symptoms or risks identified at this time. Initial Sepsis Screen: Does the patient meet any 2 criteria? No. Patient's initial sepsis screen is negative. Does the patient have a suspected source of infection? No. Patient's initial sepsis screen is negative. Risk Assessment: Do you want to hurt yourself or someone else? Patient reports no desire to harm self or others. Onset of symptoms was December 13, 2019 at 02:00. 03:01 Method Of Arrival: EMS: [facility] rv 03:01 Acuity: DARA 3 rv Triage Assessment: 03:06 General: Appears comfortable, Behavior is calm, cooperative. Pain: Denies pain. EENT: rv No signs and/or symptoms were reported regarding the EENT system. Neuro: Level of Consciousness is awake, alert, obeys commands, Oriented to person, place, time, situation. Cardiovascular: Patient's skin is warm and dry. Respiratory: Airway is patent Respiratory effort is even, unlabored, Breath sounds are clear bilaterally. Derm: Skin is intact. Historical: - Allergies: 03:06 HYDROCODONE; rv - PMHx: 03:06 fernando esophageal disease; cricopharyngeal spasm; Diabetes - NIDDM; High Cholesterol; rv Hyperlipidemia; - PSHx: 03:06 None; rv - Immunization history:: Adult Immunizations up to date. - Social history:: Smoking status: Patient denies any tobacco usage or history of. Screenin:07 Abuse screen: Denies threats or abuse. Denies injuries from another. Nutritional rv screening: No deficits noted. Tuberculosis screening: No symptoms or risk factors identified. Fall Risk None identified. Assessment: 03:10 General: Appears in no apparent distress. comfortable. Pain: Denies pain. Neuro: Level mg2 of Consciousness is awake, alert, obeys commands, Oriented to person, place, time, situation. Cardiovascular: Capillary refill < 3 seconds Patient's skin is warm and dry. Respiratory: Airway is patent Respiratory effort is even, unlabored, Respiratory pattern is regular, symmetrical. GI: No signs and/or symptoms were reported involving the gastrointestinal system. : No signs and/or symptoms were reported regarding the genitourinary system. EENT: Reports difficulty swallowing. Derm: Skin is intact, is healthy with good turgor, Skin is pink, warm \T\ dry. normal. Musculoskeletal: Circulation, motion, and sensation intact. Capillary refill < 3 seconds. 04:15 Reassessment: Patient appears in no apparent distress at this time. Patient states mg2 feeling better. Vital Signs: 03:01 BP 178 / 94; Pulse 85; Resp 18; Temp 98.1; Pulse Ox 100% on R/A; Weight 69.85 kg; Pain rv 0/10; 04:11 BP 135 / 74; Pulse 68; Resp 18; Pulse Ox 100% on R/A; mg2 ED Course: 02:59 Patient arrived in ED. am2 03:00 Romeo Harvey MD is Attending Physician. tw4 03:01 Darryl Dwyer, HAIDER is Primary Nurse. rv 03:05 Triage completed. rv 03:06 Arm band placed on right wrist. Patient placed in the treatment room, on a stretcher, rv Patient notified of wait time. 03:07 Patient has correct armband on for positive identification. nailing machine operator on. Pulse rv ox on. NIBP on. 03:37 CXR XRAY In Process Unspecified. EDMS 04:11 No provider procedures requiring assistance completed. Patient did not have IV access mg2 during this emergency room visit. Administered Medications: 03:07 Drug: GI Cocktail without - (Maalox Suspension 30 ml, Lidocaine Liquid 2 % 15 rv ml) Route: PO; 04:00 Follow up: Response: No adverse reaction; Marked relief of symptoms mg2 Outcome: 04:12 Discharge ordered by . tw4 04:23 Discharged to home via wheelchair. mg2 04:23 Condition: stable 04:23 Discharge instructions given to patient, Instructed on discharge instructions, follow up and referral plans. medication usage, Demonstrated understanding of instructions, follow-up care, medications, Prescriptions given X 1. 04:23 Patient left the ED. mg2 Signatures: Dispatcher [employer] EDMS Harriet Mcgee am2 Romeo Harvey MD MD tw4 Justice Hawk RN RN mg2 Darryl Dwyer RN RN rv Corrections: (The following items were deleted from the chart) 04:23 04:23 Discharge instructions given to patient, Instructed on discharge instructions, mg2 follow up and referral plans. medication usage, Demonstrated understanding of instructions, follow-up care, medications, Prescriptions given X mg2
--- NOTE | 2019-12-13 04:12 | EDPHYS ---
Physician Documentation [facility] Name: Robyn Carrion Age: 59 yrs Sex: Female : 1960 Arrival Date: 12/13/2019 Time: 02:59 Bed 3 Private MD: ED Physician Romeo Harvey HPI: 12/12 05:59 This 59 yrs old Female presents to ER via EMS with complaints of Difficulty tw4 Swallowing. 05:59 The patient presents with dysphagia. The patient describes throat pain as dry. Onset: tw4 The symptoms/episode began/occurred today. Severity of symptoms: At their worst the symptoms were moderate. Modifying factors: The symptoms are alleviated by nothing, the symptoms are aggravated by nothing. The patient has experienced similar episodes in the past, several times. Historical: - Allergies: 03:06 HYDROCODONE; rv - PMHx: 03:06 fernando esophageal disease; cricopharyngeal spasm; Diabetes - NIDDM; High Cholesterol; rv Hyperlipidemia; - PSHx: 03:06 None; rv - Immunization history:: Adult Immunizations up to date. - Social history:: Smoking status: Patient denies any tobacco usage or history of. ROS: 05:59 Constitutional: Negative for fever, chills, and weight loss, Eyes: Negative for injury, tw4 pain, redness, and discharge. 05:59 Cardiovascular: Negative for chest pain, palpitations, and edema, Respiratory: Negative for shortness of breath, cough, wheezing, and pleuritic chest pain, Abdomen/GI: Negative for abdominal pain, nausea, vomiting, diarrhea, and constipation, Back: Negative for injury and pain, MS/Extremity: Negative for injury and deformity, Skin: Negative for injury, rash, and discoloration, Neuro: Negative for headache, weakness, numbness, tingling, and seizure. 05:59 ENT: Positive for difficulty swallowing. Exam: 05:59 Constitutional: This is a well developed, well nourished patient who is awake, alert, tw4 and in no acute distress. Head/Face: Normocephalic, atraumatic. Chest/axilla: Normal chest wall appearance and motion. Nontender with no deformity. No lesions are appreciated. Cardiovascular: Regular rate and rhythm with a normal S1 and S2. No gallops, murmurs, or rubs. Normal PMI, no JVD. No pulse deficits. Respiratory: Lungs have equal breath sounds bilaterally, clear to auscultation and percussion. No rales, rhonchi or wheezes noted. No increased work of breathing, no retractions or nasal flaring. Abdomen/GI: Soft, non-tender, with normal bowel sounds. No distension or tympany. No guarding or rebound. No evidence of tenderness throughout. Back: No spinal tenderness. No costovertebral tenderness. Full range of motion. MS/ Extremity: Pulses equal, no cyanosis. Neurovascular intact. Full, normal range of motion. Neuro: Awake and alert, GCS 15, oriented to person, place, time, and situation. Cranial nerves II-XII grossly intact. Motor strength 5/5 in all extremities. Sensory grossly intact. Cerebellar exam normal. Normal gait. Vital Signs: 03:01 BP 178 / 94; Pulse 85; Resp 18; Temp 98.1; Pulse Ox 100% on R/A; Weight 69.85 kg; Pain rv 0/10; 04:11 BP 135 / 74; Pulse 68; Resp 18; Pulse Ox 100% on R/A; mg2 MDM: 03:00 Patient medically screened. tw4 05:59 Data reviewed: vital signs, nurses notes. Data reviewed: radiologic studies, plain tw4 films. Data interpreted: Pulse oximetry: Interpretation: normal. Counseling: I had a detailed discussion with the patient and/or guardian regarding: the historical points, exam findings, and any diagnostic results supporting the discharge/admit diagnosis, radiology results. Special discussion: I discussed with the patient/guardian in detail that at this point there is no indication for admission to the hospital. It is understood, however, that if the symptoms persist or worsen the patient needs to return immediately for re-evaluation. 12/12 03:02 Order name: CXR XRAY tw4 Administered Medications: 03:07 Drug: GI Cocktail without - (Maalox Suspension 30 ml, Lidocaine Liquid 2 % 15 rv ml) Route: PO; 04:00 Follow up: Response: No adverse reaction; Marked relief of symptoms mg2 Disposition: 12/13/19 04:12 Discharged to Home. Impression: Dysphagia. - Condition is Stable. - Discharge Instructions: Dysphagia. - Prescriptions for Carafate 1 gram Oral Tablet - take 1 tablet by ORAL route 4 times per day take on an empty stomach, beginning on waking and last dose at bedtime; 100 tablet. - Medication Reconciliation Form, Thank You Letter, Antibiotic Education, Prescription Opioid Use form. - Follow up: Private Physician; When: Upon discharge from the Emergency Department; Reason: Recheck today's complaints, Continuance of care, Re-evaluation by your physician. - Problem is new. - Symptoms have improved. Signatures: Dispatcher [employer] [facility] Romeo Harvey MD MD tw4 Justice Hawk, HAIDER RN mg2 Darryl Dwyer RN RN rv Corrections: (The following items were deleted from the chart) 03:36 03:02 Chest Single View+RAD.RAD.BRZ ordered. [facility] 04:23 04:12 12/13/2019 04:12 Discharged to Home. Impression: Dysphagia. Condition is Stable. mg2 Forms are Medication Reconciliation Form, Thank You Letter, Antibiotic Education, Prescription Opioid Use. Follow up: Private Physician; When: Upon discharge from the Emergency Department; Reason: Recheck today's complaints, Continuance of care, Re-evaluation by your physician. Problem is new. Symptoms have improved. tw4
--- NOTE | 2019-12-13 09:20 | RAD REPORT ---
EXAM DESCRIPTION: RAD - Chest Single View - 12/13/2019 3:36 am CLINICAL HISTORY: COUGH Chest pain. COMPARISON: Chest Single View dated 09/29/2019; Chest Pa And Lat (2 Views) dated 08/31/2019; Chest Sin gle View dated 06/20/2019; Chest Single View dated 10/13/2018 FINDINGS: Portable technique limits examination quality. The lungs are grossly clear. The heart is normal in size. No displaced fractures. IMPRESSION: No acute intrathoracic process suspected.
[2019-12-14 08:12] VITALS: TEMP 98.1; O2SAT 100
[2019-12-14 08:13] VITALS: BP 135/74
== END 2019-12-13 04:23 | disposition home or self-care (01) ==
LOC: ER 02:58
DX: R13.10 Dysphagia, unspecified (principal); Z88.5 Allergy status to narcotic agent
CPT/HCPCS: 71045; 99284

== ENCOUNTER 2020-02-11 14:07 | Emergency (ER) | payer OTHER ==
--- OUTSIDE RECORDS SUMMARY | 2020-02-11 14:10 | XMS REPORT | Clinical Summary ---
:1960 Author Organization [facility] Address [address] [place] [id number] Care Team Providers Name Role Phone Berry Suero MD Primary Care Provider Allergies Active Allergy Reactions Severity Noted Date Comments Hydrocodone 11/01/2018 Medications No known medications Active Problems No known active problems Surgical History Surgery Date Site/Laterality Comments COLONOSCOPY HERNIA REPAIR Medical History Medical History Date Comments Diabetes mellitus (HCC) Diverticulosis GERD (gastroesophageal reflux disease) Diverticulitis Family History Medical History Relation Name Comments [...] Assigned at Date Recorded Not on file Last Filed Vital Signs Not on file Plan of Treatment Health Maintenance Due Date Last Done Comments DIABETES: RETINAL EYE EXAM 1968 DIABETIC FOOT EXAM 1968 URINE MICROALBUMIN 1968 CERVICAL CANCER SCREENING 09/07/1979 BREAST CANCER SCREENING 2008 COLONOSCOPY SCREENING 2008 SHINGLES VACCINES (#1) 2008 INFLUENZA VACCINE 11/08/2019 04/12/2016 Results Not on fileafter 02/10/2019 Insurance Payer Benefit Plan / Subscriber ID Effective Dates Phone Addre ss Type Group MEDICARE MEDICARE PART A [id number] 2001-Present [facility] [place] [place] B Advance Directives For more information, please contact: [phone] Type Date Recorded Patient Manager Retirement Explanati on Advance Directives, Living Will and Medical Power of Furnace Combination Analyst
--- OUTSIDE RECORDS SUMMARY | 2020-02-11 14:10 | XMS REPORT | Clinical Summary ---
:1960 Author Organization [facility] Address [address] [place] [address] Care Team Providers Name Role Phone Pastor [...] Barron MD 11/18/2019 - Hospital General Internal [facility], Chronic 11/19/[address] [facility] Shabbir pancreatitis, MD Beatrice unspecified Merchant, pancreatitis ty pe MD Thang ([facility]) Jam Davalos MD 11/17/2019 Hospital Pre-Admission Testing Encounter 11/17/2019 Travel 08/26/2019 Surgery Gastroenterology Shabbir, UPPER Vinnie Ellismike ENDOSCOPY,BIO MADONNA Barron MD 08/26/2019 Anesthesia Event Gastroenterology Dany Gloria MD Ball, Kenneth Nicholas, CRNA 08/26/2019 Hospital Gastroenterology [facility], Encounter Vinnie Barron MD 08/15/2019 Hospital Pre-Admission Testing Encounter 08/15/2019 Travel after 02/10/2019 Social History Tobacco Use Types Packs/Day Years [...] Not on file Last Filed Vital Signs Vital Sign Reading Time Taken Comments Blood Pressure 126/60 11/19/2019 11:32 AM CDT Pulse 57 11/19/2019 11:32 AM CDT Temperature 35.7 C (96.3 F) 11/19/2019 11:32 AM CDT Respiratory Rate 20 11/19/2019 11:32 AM CDT Oxygen Saturation 98% 11/19/2019 11:32 AM CDT Inhaled Oxygen Concentration - - Weight 69.4 kg (152 lb 14.4 oz) 11/18/2019 6:58 AM CDT Height 157.5 cm (5' 2") [...] n the results section. ERCP,BALLOON SWEEPING 11/18/2019 10:18 Acute pancreati tis, AM CDT unspecified complication status, unspecified pancreatitis type Special Needs (C-ARM) PROCEDURE W/ C-ARM 11/18/2019 10:18 AM CDT Acute pancr eatitis, unspecified complication status, unspeci fied pancreatitis type Special Needs (C-ARM) ERCP,PAPILLOTOMY 11/18/2019 10:18 AM CDT Acute pancrea titis, unspecified complication status, unspeci fied pancreatitis type Special Needs (C-ARM) POCT-GLUCOSE METER Routine 11/18/2019 7:34 Resul ts for this AM CDT procedure are i n the results section. REPORT OF PROCEDURE 08/26/2019 1:44 - ENDOSCOPY URL PM CDT POCT-GLUCOSE METER Routine 08/26/2019 1:14 Resul ts for this PM CDT procedure are i n the results section. TISSUE EXAM AP Routine 08/26/2019 12:43 Results for this PM CDT procedure are i n the results section. UPPER 08/26/2019 12:18 Acute pancreatitis, ENDOSCOPY,ULTRASOUND PM CDT unspecified complication status, unspecified pancreatitis type UPPER 08/26/2019 12:18 Acute pancreatitis, ENDOSCOPY,SUBMUCOSAL PM CDT unspecified INJECTION complication status, unspecified pancreatitis type UPPER 08/26/2019 12:18 Acute pancreatitis, ENDOSCOPY,BIOPSY PM CDT unspecified complication status, unspecified pancreatitis type POCT-GLUCOSE METER Routine 08/26/2019 11:28 Resul ts for this AM CDT procedure are i n the results section. after 02/10/2019 Results POC-Glucose meter (11/19/2019 7:32 AM CDT)Only the most recent of5 results within the time period is included. POC-Glucose Meter 130 (H)Comment: 70 - 110 mg/dL [facility] : TESTED AT [address], [address]: [place] Point Splitter/Technic debora ID = [id number] for KRISSY FERRER Specimen Blood Performing Organization Address City/State/Zipcode Phone Number [address] [address] CENTER Comprehensive metabolic panel (11/19/2019 6:19 AM CDT) Protein, Total 6.8 6.0 - 8.[address] [facility] gm/dL [facility] Albumin 3.5 3.5 - 5.0 [facility] g/dL [facility] Alkaline 119 40 - 150 U/L [facility] Phosphatase [facility] Total Bilirubin 0.5 0.2 - 1.[address] [facility] mg/dL [facility] Sodium 136 136 - 145 [facility] meq/L [facility] Potassium 4.0 3.5 - 5.1 [facility] meq/L [facility] Chloride 105 98 - 107 [facility] meq/L [facility] CO2 26 22 - 29 meq/L [facility] BUN 17 7 - 21 mg/dL [facility] Creatinine 0.77 0.57 - 1.25 [facility] mg/dL [facility] Glucose 162 (H) 70 - 105 [facility] mg/dL [facility] Calcium 8.8 8.4 - 10.2 [facility] mg/dL [facility] AST 24 5 - 34 U/L [facility] ALT 27 6 - 55 U/L [facility] EGFR 76Comment: mL/min/1.73 [facility] ESTIMATED GFR IS sq [facility] NOT ACCURATE MEDICAL CENTER CREATININE CLEARANCE IN PREDICTING GLOMERULAR FILTRATION RATE. ESTIMATED GFR IS NOT APPLICABLE FOR DIALYSIS PATIENTS. Specimen Blood Narrative Performed At Ball Point Splitter ID - [facility] ICAL CENTER Performing Organization Address City/State/Zipcode Phone Number [facility] [address] [place] [address] CENTER CBC with platelet count + automated diff (11/19/2019 5:32 AM CDT) Pathologist Sig nature WBC 13.1 (H) 3.5 - 10.5 [facility]/L [facility] RBC 4.21 3.93 - 5.22 [facility] Hemoglobin 13.2 11.2 - 15.7 [facility] GM/DL [facility] Hematocrit 37.6 34.1 - 44.9 % [facility] MCV 89.3 79.4 - 94.8 fL [facility] MCH 31.4 25.6 - 32.2 pg [facility] MCHC 35.1 32.2 - 35.5 [facility] GM/DL [facility] RDW 12.0 11.7 - 14.4 % [facility] Platelets 295 150 - 450 K/CU [facility] MPV 9.5 9.4 - 12.3 fL [facility] nRBC 0 0 - 0 /100 WBC [facility] % Neutros 78 % [facility] % Lymphs 15 % [facility] % Monos 6 % [facility] % Eos 0 % [facility] % Baso 0 % [facility] # Neutros 10.27 (H) 1.56 - 6.13 [facility] # Lymphs 1.95 1.18 - 3.74 [facility] # Monos 0.81 (H) 0.24 - 0.36 [facility] # Eos 0.02 (L) 0.04 - 0.36 [facility] # Baso 0.01 0.01 - 0.08 [facility] Immature 0 0 - 1 % [facility] Specimen Blood Performing Organization Address City/State/Zipcode Phone Number [facility] [address] [place] [address] [place] Hemoglobin A1c (11/19/2019 5:32 AM CDT) Pathologist Sig nature Hemoglobin A1C 8.1 (H) 4.3 - 6.1 % [facility] Specimen Blood Performing Organization Address City/State/Zipcode Phone Number [facility] [address] [place] [address] [place] REPORT OF PROCEDURE - ENDOSCOPY URL (11/18/2019 11:51 AM CDT) Narrative Performed At This result has an attachment that is no t available. [place] ERCP (11/18/2019 11:08 AM CDT) Specimen Narrative Performed At Fluoroscopic unit utilized for a procedure performed i n the OR. No GE RIS interpretation was requested. Refer to the operative report for findings. Refer to PACS for patient radiation dose i nformation. Procedure Note Interface, External Ris In - [...] CDT) Case Report Surgical Pathology Report Case: [id number] [facility] OLYSalud Authorizing Provider: Vinnie Cochran Collected: 08/26/2019 12:43 PM [facility] MD [facility] Ordering Location: [facility] Endoscopy Received: 08/26/2019 01:56 PM Services Pathologist: Isac Cummins MD Specimen: Biopsy, Gastr ic, gastric polyp DIAGNOSIS A. STOMACH, POLYP, BIOPSY: [facility] Electronically - ANTRAL MUCOSA WITH POLYPOID FOVEOLAR HYPERPLASIA [facility] signed by Maria G, - NEGATIVE FOR HELICOBACTER PYLORI ORGANISMS B Y WARANDREIN DANIARY STAIN [facility] MD Isac on - NEGATIVE FOR INTESTINAL METAPLASIA, DYSPLASIA, MAL IGNANCY 08/27/2019 at 9:36 AM Signing Pathologist Direct Phone Line: CPT Code(s) [address] [facility] [id number] [facility] CLINICAL HISTORY Procedure: upper endoscopy, biopsy Mayda EVANSSalud Pre and postop diagnosis: acute pancreatitis [facility] SPECIMEN SOURCE A. Biopsy, gastric [facility] GROSS DESCRIPTION A. Received in formalin [facility] labeled with the [facility] patient's name, accession [facility]ICAL [facility]ENTER number and "gastric biopsy", with the additional description "gastric polyp" is one irregular winston-pink piece of mucosal-covered soft tissue measuring 0.4 x 0.3 x 0.2 cm. The specimen is submitted in toto following filtration in cassette A1. RAFA/pl MICROSCOPIC Performed. [facility] SPECIAL STUDIES The interpretation of this c ase included the use of immunohistochemistry or special stains. [facility] Control Slides Examined: In -house known positive controls were evaluated along with the test tissue. These control slides run alongside of the patients sample show appropriate staining. Internal [facility] charlene and negative controls when available are evaluated Immunohistochemistry technjet dai testing was performed at [facility], Pathology Laboratory where it was developed and its performance characteristics were determined. It has not be en cleared or approved by [facility] [place]. Food and Drug Administration. The FDA has determined that such clearance or approval is not necessary. The test is used for clinical purposes. It should not be regarde d as investigational or for research. This laboratory is certified under the Clinical Laboratory Improvement Amendments of 1988 (CLIA-88) as qualified to perform high complexity clinical laboratory testing. Specimen Tissue - Gastric biopsy sample (specimen ) Performing Organization Address City/State/Zipcode Phone Number [facility] [address] [place] [address] CENTER after 02/10/2019 Advance Directives For more information, please contact: [phone] Code Status Date Activated Date Inactivated Comments Full Code 11/18/2019 4:59 PM 11/19/2019 3:03 PM This code status was determined by: Patient
--- OUTSIDE RECORDS SUMMARY | 2020-02-11 14:11 | XMS REPORT | Continuity of Care Document ---
:1960 Author Organization [facility] t Address [address] Alberto. [address] [place] [address] Care Team Providers Name Role Phone Pio EPPS, [facility] Reny Oglesby MD Attending Clinician Merchant EPPS Attending Clinician Anoop EPPS Attending Clinician Stew Bond MD Attending Clinician RENY OGLESBY Attending Clinician Unavailable Yoni Gloria MD Attending Clinician Hector Burgess CRNA Attending Clinician MARISELA Attending Clinician Unavailable FREDERICK Attending Clinician Unavailable RENY OGLESBY Admitting Clinician Unavailable Payers Payer Name Policy Type Policy Effective Date Expiration Date Sour ce Number MEDICAREMEDICARE A [id number] 2001 [place] [id number] 2001-P 00:00:00 - Medical resent[facility]icare Center MEDICAIDMEDICAID OF [id number] [place] [id number] 00:00:00 [facility] Problems Condition Condition Condition Status Onset Resolution Last Treating Co mments Source Name Details Category Date Date Treatment Clinician Date Biliary Biliary Disease Active [facility] Hyperlipid Hyperlipid Problem Active [facility] [place] [facility] Hypertensi Hypertensi Problem Active [facility] [place] [facility] Diabetes Diabetes Problem Active [facility] [place] [facility] Follow up Follow up Problem Active [facility] [place] [facility] Allergies, Adverse Reactions, Alerts Allergy Allergy Status Severity Reaction(s) Onset Inactive Treating Comm ents Source Name Type Date Date Clinician Codeine Drug Active Nausea And [facility]ergy [facility] 8 [facility] 00 Center Hydrocod Drug Active Nausea And As per [facility] one-Acet Allergy Vomiting, 08-14 patient, Romina blank - aminophe Other (See 00:00: " it Medi sarah n Comments) 00 wears on Cente r my stomach" hydrocod DA Active [facility] 00:[facility]: [facility] [place] Hydrocod Propensi Active [place] one ty to 7 Methodi adverse 00:00: st reaction 00 s to drug Family History Family Member Diagnosis Comments Start Date Stop Date Source Unknown Family Family history of Other Uni versity of Member diabetes mellitus [place] [facility] Unknown Family Family history of Other Uni versity of Member hypertension [place] [facility] Unknown Family Family history of Other Uni versity of Member Heart problem [place] [facility] Natural father Diabetes [facility] Natural father Hypertension [facility] Natural mother Diabetes [facility] Natural mother Heart disease [facility] Natural mother Hypertension [facility] Social History Social Habit Start Date Stop Date Quantity Comments Source History of tobacco [facility] SDOH [facility] - Alcohol Std Drinks [facility] History SDOH [facility] - Alcohol Binge Medical [place] ter Sex Assigned At [facility] Cigarettes smoked 2019-11-18 2019-11-[address] [facility] [address] [facility] - current (pack per 00:00:00 00:00:00 Medical Center day) - Reported Cigarette 2019-11-18 2019-11-18 [facility] 00:00:00 Medical Center Tobacco use and 2019-11-18 2019-11-[address] Romina kes - exposure 00:00:00 00:00:00 [facility] Alcohol intake 2019-11-18 2019-11-18 Current [facility]er [facility] 00:[facility] 00:00:00 of alcohol Medical Center (finding) Alcohol Comment 2019-11-17 2019-11-[address] Romina kes - 00:00:00 00:00:00 Medical Center History SDOH 2019-08-15 2019-08-[address] [facility] - Alcohol Frequency 00:00:00 00:00:00 [facility] Tobacco Comment 2019-08-15 2019-08-15 quit [address] [facility] - 00:00:00 00:00:[address] [facility] Smoking Status Start Date Stop Date Source Former smoker 2019-11-18 00:00:00 2019-11-18 00:00:[address] [facility] - [facility] Never smoker [facility] Medications Ordered Filled Start Stop Current Ordering Indication Dosage Frequency Signature Comments Components Source Medication Medication Date Date Medication? Clinician (SIG) Name Name atorvastati 2019-0 Yes 40mg QD Take [address] n (LIPITOR) 8-12 by mouth Luke s - 40 MG 13:03: daily. Medical tablet 21 Center dicyclomine 2019-0 Yes 20mg Take [address] (BENTYL) 20 8-12 by mouth Luke s - mg tablet 13:03: every 6 Medic al 21 (six) Center hours. insulin 2020-0 Yes QD Inject [facility] glargine 8-12 subcutaneo [facility] - (LANTUS) 13:03: usly Medical 100 unit/mL 21 nightly Cente r injection Use as directed . lisinopriL 2020-0 Yes 10mg QD Take [address] (PRINIVIL,Z 8-12 by mouth Luke s - ESTRIL) 10 13:03: daily. Medic al MG tablet 21 Center lubiproston 2020-0 Yes 8ug Take [address] e (AMITIZA) 8-12 by mouth 2 Romina kes - 8 MCG 13:03: (two) Medical capsule 21 times Center daily as needed . lipase/prot 2020-0 Yes [id number] Q.[id number] Take [facility] ease/amylas 8-12 [id number] 36,000 [facility] - e (CREON 13:03: 3D Units by Medic al ORAL) 21 mouth 3 Center (three) times daily . pantoprazol 2020-0 Yes 40mg Q.5D Take [address] e 8-12 by mouth 2 [facility] - (PROTONIX) 13:03: (two) Medica l 40 MG 21 times Center tablet daily . promethazin 2020-0 Yes 25mg Take [address] e 8-12 by mouth [facility] - (PHENERGAN) 13:03: every 6 Med ical 25 MG 21 (six) Center tablet hours as needed for Nausea. sucralfate 2020-0 Yes 1g Q.25D Take [address] (CARAFATE) 8-12 by mouth 4 Mini es - 1 gram 13:03: (four) Medical tablet 21 times Center daily. Vital Signs Vital Name Observation Time Observation Value Comments Source Systolic blood 2019-11-19 11:32:00 126 mm[Hg] [facility] Diastolic blood 2019-11-19 11:32:00 60 mm[Hg] [facility] Heart rate 2019-11-19 11:32:00 57 /min [facility] Body temperature 2019-11-19 11:32:00 35.72 Alysia [facility] Respiratory rate 2019-11-19 11:32:00 20 /min [facility] Oxygen saturation in 2019-11-19 11:32:00 98 /min [facility] Arterial blood by Medical Ce nter Pulse oximetry Body height 2019-11-18 06:58:00 157.5 cm [facility] Body weight 2019-11-18 06:58:00 69.355 kg [facility] BMI 2019-11-18 06:58:00 27.97 kg/m2 [facility] Height 2018-05-24 10:25:00 62 [in_us] [facility] Weight 2018-05-24 10:25:00 154.9 [lb_av] [facility] Body Mass Index 2018-05-24 10:25:00 28.33 kg/m2 [facility] Calculated [place] Physician s BP Systolic 2018-04-26 10:21:00 127 mm[Hg] [facility] [place] [facility] BP Diastolic 2018-04-26 10:21:00 76 mm[Hg] [facility] [place] [facility] Height 2018-04-26 10:21:00 62 [in_us] [facility] [place] [facility] Weight 2018-04-26 10:21:00 155.6 [lb_av] [facility] [place] [facility] Body Mass Index 2018-04-26 10:21:00 28.46 kg/m2 Unive rs[facility] of Calculated [place] [facility] s Temperature 2018-04-26 10:21:00 97 [degF] [facility] [place] [facility] Heart Rate 2018-04-26 10:21:00 73 /min [facility] [place] [facility] Procedures Procedure Date / Time Performed Performing Clinician Sourc e POCT-GLUCOSE METER 2019-11-19 07:32:00 Jam Davalso [facility] COMPREHENSIVE METABOLIC 2019-11-19 06:19:[address] [facility] HEMOGLOBIN A1C 2019-11-19 05:32:00 Padmini Armando [facility] CBC W/PLT COUNT & AUTO 2019-11-19 05:32:[address] [facility] POCT-GLUCOSE METER 2019-11-18 21:05:00 Thang Oden [facility] REPORT OF PROCEDURE - 2019-11-18 11:51:31 [facility] URL [facility] [place] ERCP 2019-11-18 11:08:00 Reny [facility] ERCP,PAPILLOTOMY 2019-11-18 10:18:00 Reny [facility] PROCEDURE W/ C-ARM 2019-11-18 10:18:00 Reny [facility] ERCP,BALLOON SWEEPING 2019-11-18 10:18:00 Reny [facility] POCT-GLUCOSE METER 2019-11-18 07:34:00 Calebtinamike [facility] REPORT OF PROCEDURE - 2019-08-26 13:44:33 [address]Vinnie [facility] - ENDOSCOPY URL [facility] POCT-GLUCOSE METER 2019-08-26 13:14:00 Calebsaar [facility] TISSUE EXAM 2019-08-26 12:43:00 Calebtinamike [facility] UPPER ENDOSCOPY,BIOPSY 2019-08-26 12:18:00 Otsara [facility] UPPER 2019-08-26 12:18:00 [facility]inamike [facility] END[facility],SUBMUCOSAL [facility] ter INJECTION UPPER 2019-08-26 12:18:00 Calebmike [facility] ENDOS[facility],ULTRASOUND [facility] ter POCT-GLUCOSE METER 2019-08-26 11:28:00 Reny [facility] Plan of Care Planned Activity Planned Date Details Comments Source Future Scheduled 2019-12-09 INFLUENZA VACCINE (#1) [facility] Test 00:00:00 [code = INFLUENZA Medical Ce nter VACCINE (#1)] Future Scheduled 2019-11-08 INFLUENZA VACCINE [place] [facility] Test 00:00:00 [code = INFLUENZA VACCINE] Future Scheduled 2008 BREAST CANCER [facility] thodist Test 00:00:00 SCREENING [code = BREAST CANCER SCREENING] Future Scheduled 2008 COLONOSCOPY SCREENING [place] [facility] Test 00:00:00 [code = COLONOSCOPY SCREENING] Future Scheduled 2008 SHINGLES VACCINES (#1) [place] [facility] Test 00:00:00 [code = SHINGLES VACCINES (#1)] Future Scheduled 2003-09-[address] [facility] - Test 00:00:00 (procedure) [code = Medical Center 54229428] Future Scheduled 2002-10-[address] [facility] - Test 00:00:00 WELLNESS (YEAR 2 or Medical Center FIRST YEAR if no IPPE) [code = MEDICARE ANNUAL WELLNESS (YEAR 2 or FIRST YEAR if no IPPE)] Future Scheduled 1979-09-07 Screening for [facility] Test 00:00:00 malignant neoplasm of cervix (procedure) [code = 790023108] Future Scheduled 1979-09-[address] [facility] - Test 00:00:00 [facility] cervix (procedure) [code = 249505036] Future Scheduled 1968 DIABETES: RETINAL EYE [place] [facility] Test 00:00:00 EXAM [code = DIABETES: RETINAL EYE EXAM] Future Scheduled 1968 DIABETIC FOOT EXAM [place] [facility] Test 00:00:00 [code = DIABETIC FOOT EXAM] Future Scheduled 1968 URINE MICROALBUMIN [place] [facility] Test 00:00:00 [code = URINE MICROALBUMIN] Future Scheduled [address] [facility] - Test 00:00:00 malignant [facility] breast (procedure) [code = 230494499] Future Scheduled [address] [facility] - Test 00:00:00 malignant neoplasm of [facility] colon (procedure) [code = 379707363] Encounters Start End Encounter Admission Attending Care Care Encounter Source Date/Time Date/Time Type Type Clinicians Facility Department ID 2018-05-24 2018-05-24 RAFAT [place] [id number] Univers 10:30:00 10:30:00 t; WILL, Surgery nelson ANTONIO D.O. Specialty [facility] WILL, Physicjoyce D.O. ans 2018-04-26 2018-04-26 RAFAT [facility] [id number] Univers 10:15:00 10:15:00 t; nelson SOLIS D.O. [place] WILL Physicjoyce CastellanoO. ans 2018-04-19 2018-04-19 RAFAT [place] [id number] Univers 10:00:00 10:00:00 t; nelson SOLIS D.OIggy [place] WILL Physici Riya.O. ans 2018-03-27 2018-03-27 RAFAT [place] [id number] Univers 10:30:00 10:30:00 t; nelson SOLIS D.OIggy [place] WILL, Physici D.O. ans 2018-03-22 [facility] MARISELA[facility] RAFAT UTP [id number] Univers 10:30:00 10:30:00 t; nelson SOLIS D.O. [place] WILL, Physicjoyce D.O. ans 2018-03-06 2018-03[facility] FREDERICK, RAFAT UTP [id number] Univers 08:30:00 08:30:00 t; CYRIL MACK M.D. i ty of [place] N[place] Physici ans 2018-02-14 2018-02-[facility] SEANSATURNINO, RAFAT UTP [id number] Univers 08:15:00 08:15:00 t; nelson SOLIS D.O. [place] WILL, Physici Riya.O. ans 2018-01-11 2018-01-11 Appointlindsey MARISELA, RAFAT UTP [id number] Univers 10:30:00 10:30:00 t; nelson SOLIS D.O. [place] WILL, Physici D.O. ans Results Test Description Test Time Test Comments Results Result Comments Source Hemoglobin A1c 2019-11-19 09:28:00 Test Item Value Reference Range Interpretation Comme nts Hemoglobin A1C (test code = 4548-4) 8.1 % 4.3-6.1 H Lab Interpretation (test code = 35904-8) Abnormal [facility] [id number] 09:28:00 Test Item Value Reference Range Interpretation Comments HEMOGLOBIN A1C (BEAKER) (test code = 8.1 % 4.3-6.1 H 368) POC-Glucose [id number] 07:44:00 Test Item Value Reference Range Interpretation Comments POC-Glucose Meter (test 130 mg/dL 70-110 H : TE STACEY AT [facility] code = 1472) [address] [facility], 770 30: Diesel Plant Operator/Techni wendy ID = [id number] for KRISSY FERRER Lab Interpretation (test Abnormal code = 32274-9) [facility] [id number] 07:44:00 Test Item Value Reference Range Interpretation Comments POC-GLUCOSE METER 130 mg/dL 70-110 H : TESTED A T [facility] 6720 (BEAKER) (test code = TERRI JORDAN [place], 1538) [address]: Diesel Plant Operator/Techni wendy ID = [id number] for KRISSY FINNEGAN Comprehensive metabolic [id number] 06:55:00 Test Item Value Reference Range Interpretation Comments Protein, Total (test 6.8 6.0- 8.3 gm/dL code = 2885-2) Albumin (test code = 3.5 g/dL 3.5-5 58819-4) Alkaline Phosphatase 119 U/L 40-150 (test code = 6768-6) Total Bilirubin (test 0.5 mg/dL 0.2-1.2 code = 1975-2) Sodium (test code = 136 meq/L 832-986 3027-2) Potassium (test code = 4.0 meq/L 3.5-5.1 2823-3) Chloride (test code = 105 meq/L 98-107 2075-0) CO2 (test code = 26 meq/L 22-29 2028-9) BUN (test code = 17 mg/dL 7-21 3094-0) Creatinine (test code 0.77 mg/dL 0.57-1.25 = 2160-0) Glucose (test code = 162 mg/dL 70-105 H 2345-7) Calcium (test code = 8.8 mg/dL 8.4-10.2 13706-1) AST (test code = 24 U/L 5-34 1920-8) ALT (test code = 27 U/L 6-55 1742-6) EGFR (test code = 76 mL/min/1.73 [place] [address]-8) NOT ACCURATE CREATININE CLEARANCE IN PREDICTING GLOMERULAR FILTRATION RATE . ESTIMATED GFR I S NOT APPLICABLE FOR DIALYSIS PATIENTS. TRUDY (test code = TRUDY) Diesel Plant Operator ID - PIAYA L Lab Interpretation Abnormal (test code = 88994-7) [facility] METABOL[facility] [id number] 06:55:00 Test Item Value Reference Range Interpretation [...] S NOT APPLICABLE FOR DIALYSIS PATIEN TS. Dies[employer] Plant Operator ID - PIAYA LCBC with platelet count + automated [id number] 05:55:00 Test Item Value Reference Range Interpretation [...] 450 K/CU MM MPV (test code = 99847-5) 9.5 fL 9.4-12.3 nRBC (test code = [...] 2801) Lab Interpretation (test code = Abnormal 31233-9) [facility] W/PLT COUNT & AUTO [id number] 05:55:00 Test Item Value Reference Range Interpretation [...] PERCENT (BEAKER) (test code = 2801) POCT-GLUCOSE [id number] 21:17:00 Test Item Value Reference Range Interpretation Comments POC-GLUCOSE METER 255 mg/dL 70-110 H : TESTED A T [facility] 6720 (BEAKER) (test code = TERRI Hirsch [facility], 1538) 17086: Diesel Plant Operator/Techni wendy ID = [id number] for ABHILASH MARTI [id number] 11:22:39INTRA OP IMAGINGReason for exam:->abnormal imaging Fluoroscopic unit utilized for a procedure performed in the OR. No interpretation was requested. Refer to the operative report for findings. Refer to PACS for patient radiation dose information.IN [id number] 11:22:39 Interface, External Ris In - 11/18/2019 11:22 AM CDTFluoroscopic unit utilized for a procedure performed in the OR. No interpretation was requested. Refer to the operative report for findings. Referto PACS for patient radiation dose information.[facility] [id number] 07:45:00 Test Item Value Reference Range Interpretation Comments POC-GLUCOSE METER 155 mg/dL 70-110 H : TESTED A T [facility] 6720 (MAN) (test code = TERRI ARREDONDO, 1538) [address]: Diesel Plant Operator/Techni wendy ID = [id number] for ED WARDS, KATIE Tissue [id number] 09:36:00 Test Item Value Reference Range Interpretation Comments Case Report (test code Surgical Pathology = 104) Report Case: [id number] Authorizing Provider: Vinnie Oglesby Collected: 08/26/2019 12:43 PM MD Beatrice Ordering Location: [facility] Endoscopy Received: 08/26/2019 01:56 PM Services Pathologist: Isac Cummins MD Specimen: Biopsy, Gastric, gastric polyp DIAGNOSIS (test code = [id number] 3220) FuZzEwMzNcZnRuYmpcdWMx RGavqiIyCVeqt5WuB2LsSi AwMFxhbnNpXGRlZmxhbmcx SGJvELC3nyNzKNZlOKkvJS YyQQyfKc7xdUWeiGvdUpWr VLTib9gyzwCBaexumZj0c1 bzIWQnYpI7jRVoRHyxG0au bvOvaVBrAMKjVUv3tR88JZ AvxT9maEIdTOidnuTzWgA4 CZwoOLTwPvK6WRBhyPBvNE BqZ2ztUJPjNPobQUYxXAhe oXJsAHZ5xYwpf6Y6zZQrwR LmxRgeNfMrTfEsRSKBo9Na FYx1eIhsY1WjDHZsSqQ9hT QgUGFyYWdyYXBoIEZvbnQ7 oO75LLxfypT1oMYhq2Wfp6 3va320lO1nsJYcMRG2IBLz HDCzfEYzLUIjUWQ6JUKlxN QxN8g1LzYmxVGqW4R9CrZu pNCfC2H3VdCobCVmB6R0Vf IdxTMkBOZkhLDmRm8rdQQg cXBxrh6nek36HIN5y2RbpV lxUGK8VWC9UmIoDk8hyCDg PGArYP0jDzZhnZJxJETzyj 28nEzwRRrhexZczZ0yLgUs VS7rnGgqu30oKYPaJY4hyB 9vky4jdbGlJGfzaOEjkWT8 xbugTCM9APDzizEwy6Ofb0 ctBnQfbzXtC3ajW4TdUKCc HLWdURNdZyUcjcNqa6Icd0 TyrMTtsFn3g5xoTCBnCDZa qDtxc6hkPDU2QSZlM0W2rT Hee5oiJXvjURJayCH2sxwk QFxsIUYpnzT7jlaeIEapRI UucQF4sleyPNsmTUAhOuI2 jdztZXghLFMeWBW8TGvsz2 45GOR5CHgyMpuxOBxcVBWo bmNvbnRccGduZGVjXHBsYW luXHBsYWluXGYwXGZzMjRc eIMdYBwzj3RqhaFfcZwbQV TkUYs7vcXvhdjoiHf1jUZx hFpuJIOyyXbglS0zEaPpPu CqWOwnFE1zSXReU2gykXIu QIShHISkV6qcMeGbkT6xwW xmMVxmczIwIEEuIFxwbGFp blxmMVxmczIwXGxhbmcxMD TgTIfuE6rdSfSvACJsfDwz SHyvi3GnPSDzDHOtOwavka SdIQn2cpKsMNHTJ95WJ5cg IFxwbGFpblxmMVxmczIwXG lwfjfaPLYxCDfhB8tfPiXe ZREjvKwxQIsgq1HxQTAfPE CaSrZiJS6RARFvQQaxtUFe blxmMVxmczIwXGxhbmcxMD WbRPmxD8cnBtMkMLBcoWjr KEafg7FkBHXkNALzIvghhj OuSSx5znOeGCHFY5PKJIOv YWluXGYxXGZzMjBcbGFuZz EwMzNcaGljaFxmMVxkYmNo BGUbDRheU0idLcGwFgDcHF BZXHBsYWluXGYxXGZzMjBc bGFuZzEwMzNcaGljaFxmMV htJeFjCBRhIOycS0rwUtBu R3XzKAAmCfUndKQoJ8yeEa mzAPWqtLnzmI1qAqVzWqMk DFfwBI9kIXCjD0vrpGDbBG DlSTVkJ2ptFaArwV8ieFqw VZfvqkYrLDAqnIxszE3lNf GdQoNcHNgwTC9cCVKdE2du yVTmALNnIFHaL9hjIyUjlC 9jaFxmMVxjZjJcZnMyMFxs dHJjaCAtXHBsYWluXGYxXG ZzMjBcbGFuZzEwMzNcaGlj aFxmMVxkYmNoXGYxXGxvY2 hcZjFcZnMyMCAgXHBsYWlu XGYxXGZzMjBcbGFuZzEwMz NcaGljaFxmMVxkYmNoXGYx LOaiZ8nkAsJjQ9XkTFAkWw UksQQhM5rdSEYVLLQTRLBD LMAGX9MvJ5dDJUQucXyilM 7aBtZrPsCgCIlwZV3aJPWk W9guySLvCKCdBNXzC9wfEq GepS6hfNmhUBkeegLnEBTB TVwNN1uSVAJUKsWDVHIQQS tMICZCSZnMT1xJYYIetvHo XHBsYWluXGYxXGZzMjBcbG FuZzEwMzNcaGljaFxmMVxk KrJcMJKsBRmuS8dtXqAqQ9 SzSTJpGtYqaSAkX8jhIWfi bGFpblxmMVxmczIwXGxhbm uqRHNxAAjqJ5wvImGwODRj cJylDRanl1AhIAAsUTBdYz AgIFxwbGFpblxmMVxmczIw WQqfhewjUSDxREuhE7hzUz KwXSSclZbeIMtdi2DcGIAg KFQwKhpgguVlIPp9rnUpJJ FBVTwOESoDBMLBV5LuGMPQ ZQWLRjDXQBWRPPQLCU3KRI PIIeaYQqcKXUYxEovaW0DZ FJlQZaZUYBKKSiieI9BSRR 2drMUiPRFtluSdf3GxEIZd BWD1CBafLAdzhDebvRDlnm wwKMmnvhW6HIJaSTmuUWVi XGZzMjBcbGFuZzEwMzNcaG ljaFxmMVxkYmNoXGYxXGxv X9uoCoKeInSkZJMgBPDqVO luXGYxXGZzMjBcbGFuZzEw MzNcaGljaFxmMVxkYmNoXG FnTYalO6jcNuGpK8ZyMGOa OfZodYBcL5amUNqkeIDnfm xmMVxmczIwXGxhbmcxMDMz LAnhW5mpFjOwJYBmpUmoLE aua9EvXCLdKLXpThSyTCfq bGFpblxmMVxmczIwXGxhbm vvCXDwYKkeX6ljAnIsAIKk uFwkTKyye1UvVAShMFXsOd uybxDhYWn0wsLeMKBLRKiK TVyQVJDHL7ZiKE8JOXPJBD 5NZUFKACMEIBfMH0jFSSMQ MJDZPVKMOJKrKO9KVTdIDh YVC5fdrIzuaX6iCpQeEjHz RDxkSD5qNGEgX7xadSEsTK HfBEBkN1quVdGlrX3qiBiq WAaoocOrUMBofcnnOKR8g3 xydGYxXHNzdGUxODAwMFxh bnNpXGRlZmxhbmcxMDMzXG L6dkCmKTPmODwwHWDnKHzs Uh7lcZVqxJdlBiQvSDJiu0 kdyvLKbbatoLy0m1qgEQEo TqZ8qVVuRVbrC4inscPicS MgBCIwDAt4zG20TDOhjR6c kQTzOWnynaKzEqH9MMrkGS GbWkQ5EWVijQUbFUFbT2jm ZWQwXGdyZWVuMFxibHVlMC T9fFadn1F7cXZkkXAtbAua TbVtXmOjElMLj6ToRYe4yQ zgB5WeHGGzJqK4oWImEOOj DNafMAJfWVBlfbV4yZ90IM avahB5jRUlp9Thk78pw671 iB3mxIDzEBB0UXKiFSBlnU BnCDCtCYJ7TEWuzXNtO9kp SYXgMD4yvinuFFgfXXrhAT BnrWK9CULhlFQbU6TrCELz SShwJTIydzr3MwSbLe1ocG GufTesRVogp2ejl3dfcRKq Uin7XMUbJhYqSkcaKBlmr3 Kkh4twKUFukg7nUPY3sVMx uXenh5C1oVHcQMHxaEKdGW PhDH0kmVKoUMEusD9bfqkn XHBnYnJkcmhlYWRccGdicm RjFw4otMjxQJC1ZKjjE8zk sW7uIgW0PAwcP5yenW7xZL m4QTppBTKosJU2luD2MCMz aMBnW0QlwD9jRMRoOA0kml c1b6aoRFF9ZYrxRUDzVcU6 frK1NVBqcSOdQBOxoXfgIE opn788OTV4ZsMdDZXag8Kn V2SzsMhvP02akLfuZ57iDQ IobYlcrH8kxThmpY0iVcWm JqDcEDtorFywGG6oAKVfX7 waoOFrILOzQSXrX1yyGtIp zP2cbCzjUPecmwHmWZTeQl c2GWSelNEoYFMyFfj2CFGw VAEqM06oafsxDKL8gJ7rr5 vsl4WsLNheCTM9KDUez86y GXzvntS0LNbwYh1pIbEcRP P6KLdnVOE7zL== CPT Code(s) (test code p1vojNPwETKydIZeUhLdOY = 3357) AfRZSqr5axUHAayOQpZtIj MzNcZnRuYmpcdWMxXGRlZm Pme8ewy605cDQcb4tlQAWt PtP1qNXjYRBmcKAxD959i0 wha2wkciOviGH0VGSoRME7 VHgyunStjoK4SSixdUBbGw N5BRmouaYoVKqiwqRdskEa Hxw1ZTViB816LHN4oQgof5 ykITV3BBIdSVVnUwOcLs7v rJCgC700ZZGoEGMBJZRiyX y3TLBwieKuxzEufKWFn314 A714m2xhRRQksxXhvOdKzg aap0mhU191CUUipZKdieUn XwFnSXRlyLUmxFL9TWZnGE 7rnklzByTySD6erqpgQaQz FD7yadu9XsEaBC2songcOf AhVVzqVWJhoovsRAQup1Zq fbetKN8kZ2Nmu6Z6zA4ddZ DaYBVqkIDdHuNwRHSioz5d yNGwNQfbb7OsNSB5fmQ5vU VatTQeHSWyNB27Vwsun4St JfxvNRM7HMImovVsu2Mul1 faNpDvqmCnC5hwO6UnHENe ULGwTKVhGyNefsKqs1Cqw1 TsyHVwtAm5s2hyBIObTSCh jEekq4suJSG9MOEnX7Q6mS Tye3eyOVmfNKCmpBY9paua UYvvZHOqtgJ6qjdeXQxeJO UrgRG0haghHLlrONLaLoQ4 oqtiRHkkVVWcGUT3MYytu4 87PDS9KBuyQhmxFBdhDIUg bmNvbnRccGduZGVjXHBsYW luXHBsYWluXGYwXGZzMjRc zWvnaDzavK4oSfEtSdKxQZ xmKM1sLMAnK6yoaSOyZPGo GIXqL3sbTpNarP8pkQhyCD ifipDtIVv9LfO0BSKcwzF1 ODMxMlxwYXJ9 CLINICAL HISTORY (test i1zxjGCqKPPovGIkIzQhOG code = 3353) QyVGRef8mjBYAblZIkTfBq MzNcZnRuYmpcdWMxXGRlZm Ckl5cav492iEZrn5roQEUm BxM2oJEgYTSqfVJdZ281JI WiHUqlz9oyo2UeHZLusQZj g8I6WCGHkyjpmTm3wMboX8 3wg7O9BtgzZ8sdQULxNNxj UJIrMGcvoWFeZLN8RVDeWW U4AQpyzfRwntY1XGhytPRh ClM8CEf1h4hxeZsvBRFiSQ L2p6paUHxoyvNuCR6tlt2d sOm5h1brjrPtBRMsLOYenL QVJAOuQ8QctEedCz3umEl4 dGwpQlzyLLR3Xrc4AB0knl 10fqa2cKmmKDHlvnlyIdD3 EHvsEZKyseomWLt2TSenBU JnbDcyMFxtYXJncjcyMFxt YXJndDcyMFxtYXJnYjcyMF mzIKNvOLP4ULplx784OMD4 VRkaw8nkq1akzGCsQhf6NO HyAzYyTualOOkuj6Sfd0jx QCPxvz1pSME1xWIenPsra1 H0oGKrJHQjyONwyhCxJAEg RjR5SUefYW0lkg45OWFhJV W7jx6syZRcoTtqbjPbzTLe HBryW2QlKYCud803SWLtT9 BhTVFkp2F5knAuTdUvKEVr gJG8kiB4PGEzUPw8xMWyos K6vnKtcPYzJ9rsyR71PrSm lYWpJ7VglA54VqYmjZDuW7 RyeZ57ItVunVEvS7HlhF29 DnGsrQSlFUHddHCkTh1uoQ IhiBCds3QwuJFyOKyoS62p d944QRWdggCxX0lrwRUxne xwbGFpblxmMFxmczIwXHFs XHBsYWluXGYwXGZzMjBccG blnA1aJfLkNkXrGJNEvw3q FKE2zlX4XIZzlKJrHOWzUO 7wT86fdQdmVmxrvRB0GVSf hvWKbfRhNU5zJIVck4YzrP UxcBPkhl9lbQQ7ONLztJFy XPGajfDcZHS5aAPknqJvnG FyfQ== SPECIMEN SOURCE (test m3nrqJGqPFHdyVXrCtGtDZ code = 3377) JlOEWxb1qgCSQbiYAyEfCi MzNcZnRuYmpcdWMxXGRlZm Djg6awj860zGRtr1ebXWAk HzO1gDSzYXDdyXDrS272u7 gbn2mrzmOvkNO7PUZyZXY9 RRooqlPohvG5APwkcTMhOv O9LEcnbrKuHEkxvfApdzMq Zrm7UPUiH867BDM7qVjeg2 yrNLH7XZGePUEbOpQgKb8g oDUdU619RBLzHMMHNNNhaA k1MPUzfsAvqrVvaZVPo080 Y536w9ziNCMdiyHtoSkRon qoe5bbH996GHVgeMEbmvNs VbKfVJBjhVYpfDH5OYNuSO 1oenlpUcPwLV6uubpnOsAb AR6uhks2IaDrAX6dmjnjZw LxHJlkCMEfrfdzLXMdz5Ki biknNG5iG7Xtt1S3mW3meE WnPGBrnBOsWdIbARLedq9p hJNoNWnsg8XzWIR3afL5pH CcgAVbFVPnHC69Cdzte3Mp NbstQNI0XWKtbcYez9Jwb0 toSpQstrMfD8ikX5VzSMQx VFMeDRYfKvSrvvMmy8Ktf5 PvcPTlySm9k7gwVZUiFEOl tWyxj7qlMNT6TVTxH7I4wB Wue2jwHVflFFJybRX6uyyg EHqfIBBxhoJ5bmthCHexKB OydRP7udhjVJhmYZWsRpZ8 kzxaKJdbWLJtEWG1ZEims5 87TQE9SIroBatzKNboTMXk bmNvbnRccGduZGVjXHBsYW luXHBsYWluXGYwXGZzMjRc oSituVsqcL8gMwJrAuTfBT lkTP6cCCMlD9rkiILhWHWh WXUuM3ccWiZhyZ1ngOdtTH hvauDtGVAqYVHlk8LtwEbn I1HucQEdJ9vtQCG9 GROSS DESCRIPTION (test a7zkhVThAGQpqYDmUaFyQW code = 3366) MpPVIra8dpBNXbfKUhWnJn MzNcZnRuYmpcdWMxXGRlZm Irg8jxp527aHUkt1lzEMOc MgH2iDHlSHFayCNwH364RP NsQXxmo6fkp8NfMWBofDSm t7E7EVZPytkxrTo9tMyzP4 9dc3W9NausD9ajQITnEOyd RXCiBLxwpJOiYAW0QONyBS V6ZKmpbxIjqgP0AQxnvNGk AzI6BBn0h6lykUbxONEiDO F6s4jkDZiqwuRvPY0miw7d tKu3w6wgsiXkJAOoCUPvuJ HWCVTnY2GtrOqwJu5qdDo8 hWkjHwguSDI9Udi3NH6hkx 47zyz3bJruSJNsxnjsYeJ0 JHnjXMDjwhwdKVv8TQzoOF JnbDcyMFxtYXJncjcyMFxt YXJndDcyMFxtYXJnYjcyMF bjLSJtYAV0RAtyb920PWM8 CAbym9yij5ebuGYkHjf1PG RqKlDqYhgfODdfa2Huq2mk XQVsiw0lDOC2aPTfxSjog0 L2tWVhQHNeaMVovvOvGWLg GtM8IPwtQJ5fcm74PTYlRU E9ly8qsLJpgTwoizHaeSAn PMhsT8XcCBGxn489TSXlX7 EvMMRkr1E4iaFwSsViMWVy jKH0acJ6HBJnDBe0gWSinv D0tkMkhROmN9sjiD00AiNq jVDeB2EmyC97GmOaoGIdF8 FlfO33ZkAixVQiF0HbsM04 JpPsuRGiMXTpqIVyOf4fiH FxdWXhu1WhpFDrZRkiD82d r485GNOoegAcX9pzxYIbuo xwbGFpblxmMFxmczIwXHFs XHBsYWluXGYwXGZzMjBccG cjfY0bEvSpBoLiUFIGNnZz XHBsYWluXGYxXGZzMjAgUm MuURh0FVOxuN7yPb4jfWNr lN2hqTMxHJsoYIW0rMStZK MtJRGqRHCdYA52K3ZrucCg GBuxVDWjYAPjuE3sIR97zO HkliBfxrDcpWxokM6nPgGi UgRfZXNoSirjk9WniHYlRl vnqEU3UihlGSBkNMhlGHMt MPVxBgFxc7u5tPY3kPRfFI UmdTVxy07uuKOtVOWkibiu dGlvblxwbGFpblxmMFxmcz CqTCPtU6ZuiODeGzFri4y4 wHZuzCYer53tJGwbjQJuwl xmMVxmczIwIGlycmVndWxh clxwbGFpblxmMFxmczIwIC A6AD9amQcjmjRrwRKhOEEw DuNrmTWbd3JxLKVaorCeVF Xkq16hzBQ2yJFtsRNfgLNo y5MezF3rWUCePFA0KBNaMb N7STOzDrMmmR8wCQbubEQi blxmMVxmczIwIFRoZSBzcG MyfF7mjaDwivHazSQrhEI7 WCNttZ8vuB53wkEta0djx6 dpbmcgZmlsdHJhdGlvbiBp yoKtBRRiRXT2QFvpvIKkmm ukZDncfyCnFRZPBW4kDxLs cGxccGFyfQ== MICROSCOPIC DESCRIPTION l5vpwDXpPIDofCJyVsZeLR (test code = 3371) MxWJVyh8pfWVQysKQdGgDx MzNcZnRuYmpcdWMxXGRlZm Mur2cpb741rXJyb0xwKYWo XtN8kLZlHBColTDnS883FV CnYStam3tcu5EiNPPwxDQw h9F0WQCBleetiCa6vHsqQ1 7ak4Z5LukzD8srTCCqJZjy QKKzLDvysXUkWFO6OPIdFP C0DTfupmAxhoR7OBycwKQk BtR4HFz9s8pbzDzkRPJsYO E5f4jmHXhnluZrDR2mhd8a gPu4d1zgevPgOBIyLMOaeA YTOELhJ2PcfTjfOh2vaJm4 oAwlMtfmPBA2Amt4NA6pqv 81sep8xFyaSCDoqedaOxQ6 WDxqNOGbjxyeBVy6OPppKA JnbDcyMFxtYXJncjcyMFxt YXJndDcyMFxtYXJnYjcyMF xkFJCjIEE1WYevq348ABO5 EAxgp7bfm5jphPOgJdd4PJ LyZjZrVzzvHIgdf9Arn7rj TIEiig0qIKG0aRCxpWysu5 M4yTJmDCWxzAImyaDzBIBm bg71oLZkbUKtiTGyzg3lnm CnpKZazBAmXYO8sMBurcYl DSQevCFcXIJwBX3xqQKfJM DyiA0qvrsoDIDrWdAuzjuv EWYxjEwdttLsHm3rrRfwEZ F3HVxbQ4msoP3zMdH2JQmv Q7gcbH5oXBn6LQyajHN1ZH CrqP4zAO6yqvbxp1shAdBo ZX3ygzhtr2utHkDeWH6ryi c9r6gdIsFcKX3veispo9ng NzIwXGhlYWRlcnkwXGZvb3 MlkszqSUCji0QqK4ElmMny K45ugIayH86jKVVwiPhzkH 0lcZavxD3nHwCrWdUlFOzv bFxwbGFpblxmMFxmczIwXH BsYWluXGYxXGZzMjAgUGVy Xt5oxLJySxdgDTCxbKDvrZ == SPECIAL STUDIES (test u2owqSGoNTLss2cvCEMyoZ code = 3376) FuZzEwMzNcZnRuYmpcdWMx BTqhmmKmZZyzs5AaX8BmAj AwMFxhbnNpXGRlZmxhbmcx ICDeWBA3xnMaTONoHReeAF KhCYblHh1rnWQohUpnYyPf ZGRcw0shwdRDbaauuBl1z4 vrYIZkRcN8sWGzFBbkY2zh rlOuiSRwJ7RsmXYivAx8a0 zkTaJgYcC0rOGjFJglU0wo eyQuwQSdRJMiQYf2wS63XZ BxxS0dxBUxJGwxrfBgPpY9 PHguZAJtFrR9KYCxyEZaJV NuW1riURQsYKvzCDVwZFzb yOBgLUX2cDlxq6I1kCEknV AuyZfdObTuNoFuLdTNa7Wp ROq6vBjbV6SwUGSfGtG7zL QgUGFyYWdyYXBoIEZvbnQ7 wFxrmjWwl43cvQOdDFOmFQ AeBbZlgIjbDTKtAXHSg0Ur rLieNUU1rDs1nUxmFpvaKR I8Zlj7GA7yxr61lah8fMym XVPdqadfMtM0OUfjKGFsrp geLTl4XWokIIEptPT7UTAc hWAkX3GzZQVjVP1uymh1CT I7EHyzEERlSmD3YTZabTMz VXYrxGpvUKlzy420QII9Fk SkNQ4fS2Nal9Z6aB5qwAIo LWMggLTwLtOtKSEgtg2atW PrBZaxi3RsHCZ2zyM6rQRp eMGiYXRhOM16Shbdc0RrBt bhj3SyQ61inSC4AEdfs5av VP0jJwB9gdBlFRlzp0babO 3mUmB1WXjzZN9eJP6hAGXn vB8xeuvoBPEiDqMrsjpdRK YqzDmtuyHnEu1pmYyeOKL0 YNqsE8ylkK6iXxU7GFhjF1 hbkK5qZFd3TGhsgNC1VKLj oP1dPG0rpblcd5fgKXhkTJ dlWVBmbcF8zxP5QHXkdEQz Q4VfyN4zZRDdUN7kjocxp2 fuPMX0WYjjRGJjZQC1WgIa JRCjd5Sapgt5NwLcr3UinV CfCYecE05it088UYInimWe X1atyPAwxkxfyATsvaffPD yisjI9UCWfFHFvUItiINJm XGZzMjJcbGFuZzEwMzNcaG ljaFxmMVxkYmNoXGYxXGxv Y6cdLdOeS1SnKJHeUuMvBX oiFOhsqXCihYQicBM3uU0e DA1lOCAkcANfU0SsEBPnft NgkFQaQIQ8yJRunDKxHG6e OFegyFLsy6dbc4NzN6idlM jevZC9YA5bYDTmWLUpVPsv s2IisX6cUwqhxOZsqpknAL xmczIyXGxhbmcxMDMzXGhp G9rtFuWoXYUpqJxbVEfgb9 NoXGYxXGNmMlxmczIyXGx0 cmNoXHBhclxwYXJccGxhaW 2eOeDeEbVrDicfCV7pDLOq D5qgdGOaHLGqTHHsB2sqGk FvzV5joNoeKYroIiVeAwUl UpWUi865pm2oIDPcbEQccp BAtXPwvL8ePAxlWKseQSuv xGErJVyyg0frIVWrj1i0dR YtLXBscoZup3kgDAbvqeVu WVLwcTFslZYySHKvp90hPG buxKnxqEkhIFCil0QohZnz a1VyXiBjBRtau2QkV57stX JvbCBzbGlkZXMgcnVuIGFs p06xg7clGSJgPrT7hEAzvM Y7wXOysFQhl9WwcMagDZUt y8nkQUFydx7cyhoxeTLcr9 FesF4tvrwjFEicxORvcrIq CRQiv1f1eWLyTCQtCRCeAM gygPx8NJRib632ev2wcdY5 bDPiSHA3AWxvGSZpTVYfyb UgZXZhbHVhdGVkXHBsYWlu XGYxXGZzMjJcbGFuZzEwMz NcaGljaFxmMVxkYmNoXGYx RTfrZ5gcWvWkK7QbIDBjTg MfeLYgE9fbaDFiGMJfJQsr XGYxXGZzMjJcbGFuZzEwMz NcaGljaFxmMVxkYmNoXGYx RFfrL6vvChRkI6JaUKKaBj IgIFxwbGFpblxmMVxmczIy VCaljmyfFOPnBQdtY3ykBg SmFFXsoBrcDOwst2DcWKGz ZBZnAofczrZuEUw8fbKhTF BhclxwbGFpblxmMVxmczIy CChkquboEUCoAOeoT6foRn WtFAYcmQbtLTfuy8KzRLEf XGNmMlxmczIyIEltbXVub2 vzy5HuJ3cmnFlcfXA8DDPq W0rikAZheZB9AGS3mD2tES qfrwWyFWKai3OvECQpPWOb DzM7aR5mKHG5VcKWrEfdMH BsYWluXGYxXGZzMjJcbGFu ZzEwMzNcaGljaFxmMVxkYm MgOMXhCRkeW2hqLyOfD9Mo KJGqBrKvyGqgRCgcVOv7Sn xwbGFpblxmMVxmczIyXGxh vljbBLGjUEleB2ajNzLpFE GufYznADxcn2LaNJVhPRVq MlxmczIyIHMgTWVkaWNhbC BGQY15ZSLcVTPycHpssZ6r zTFFCQAcdgH2j4F7XXzzDP QiMNf3EGvxxoUwGELbdS1f QHJuLT4xQFw8nvLiONAyt9 SqFB2fVGVcnXZoWAQ1KISx i7WiU4Qlh7ZhEKItFXCiip 8uxoYdVrFRwAKjRMVnxw37 KVWaCS4eZ8oaVCRiUPIahs SzwCDgd1QgVZXlpUL8hSZv XJ4TCdGBp75bTIBaUDVOjw UcXLLqtMprvIF1giG4rE6j LiBUaGUgRkRBIGhhcyBkZX Vvvj2cozYfJGIlMNTbo2Vf mLWweVQlcuRsC4Etk4GyPC Hqiu48MDhbiEWbkx96IB1o Y7Qhk8LukS3pJOhyMJPpi1 HuiHJdlAJtQJSpx5IsF5nf fxxdNRofqXZqwH4kFNXqRL a8DEEsz5OyCXEof6CdFdMk qbJiELUvJCFdSROtuL84ZF Y7sKvkhFdhodSvXQ3nZUSt uqRsTQNnHQRsoK6xZBdpck BfEMClijB0s4X7KJnhPTNw giZzYwiuNRD5glIwzdV6wD XrQ0eykobsMAetJJQkm6Fu uZ6heCQGcCEze3HpwJHhpW FKbGWzOV0vigRsTH9vHFQ3 ODggKENMSUEtODgpIGFzIH B2YYgfDcmwJWF7uiHcWXFh h9ObJXmbP0giN82evFtcvI q3fECefUcnhNNqiWIeMMDm drD0g8A1TZWfk8ZctaeyLW BsYWluXGYyXGZzMjJcbGFu ZzEwMzNcaGljaFxmMlxkYm QjXBZuPDtpE6mvVbPhPqHj GpgdUJX0wX== [facility] [id number] 09:36:00Surgical Pathology Report Case: [id number] Authorizing Provider: Vinnie Oglesby Collected: 08/26/2019 12:43 PM MD Beatrice OrderingLocation: [facility] Endoscopy Received: 08/26/2019 01:56 PM Services Pathologist: Isac Cummins MD Specimen: Biopsy, Gastric, gastric polyp A. STOMACH, POLYP, BIOPSY: - ANTRAL MUCOSA WITH POLYPOID FOVEOLAR HYPERPLASIA - NEGATIVE FOR HELICOBACTER PYLORI ORGANISMS BY WARTHIN STARRY STAIN - NEGATIVE FOR INTESTINAL METAPLASIA, DYSPLASIA, MALIGNANCY Signing Pathologist Direct Phone Line: [phone] signed by Isac Cummins MD on 08/27/2019 at 9:36 [id number]: upper endoscopy, biopsyPre and postop diagnosis: acute [...] evaluated Immunohistochemistry technical testing was performed at [facility], Pathology Laboratory where it was developed [...] to perform high complexity clinical laboratory testing.POCT-GLUCOSE [id number] 13:26:00 Test Item Value Reference Range Interpretation Comments POC-GLUCOSE METER 122 mg/dL 70-110 H : TESTED A [facility] 6720 ([employer]) (test code = QUINNCATHERINE Joycelyn [place], 1538) [address]: Diesel Plant Operator/Techni wendy ID = [id number] for Ilda Bailey POCT-GLUCOSE [id number] 11:40:00 Test Item Value Reference Range Interpretation Comments POC-GLUCOSE METER 137 mg/dL 70-110 H : TESTED A T [facility] 6720 (MAN) (test code = TERRI JORDAN [place], 1538) [address]161: Diesel Plant Operator/Techni wendy ID = [id number] for KATIE CANTU COLON SEGMENT RESEC.NOT [id number] 19:21:00 RUN DATE: 11/14/18 [facility] PAGE 1 RUN TIME: 810 Specimen Inquiry RUN USER: INTERFACE PATIENT: DAISY HAMMER LOC: [facility] #: [id number] AGE/SX: 58/F ROOM: [facility] RE11/11/18REG DR: Betito Collazo MD : 56 BED: A DIS: 11/13/18 STATUS: DIS Sharla TLOC: SPEC #: [id number] RECD: 11/11/18 STATUS: BRITTNY JIANG #: [id number] CRISTINO: 11/11/18- SUBM DR: Betito Collazo MD ENTERED: 11/11/18-1432 SP TYPE: COLONR NIDIA DR: ORDERED: LEVEL V SURGICA CODES: [id number] - COLON, NOS PROCEDURES: LEVEL V SURGICA (Incomplete) TISSUES: COLON, NOS - RECTOSIGMOID DIVERTICULITIS CLINICAL HISTORY 58 year old, diverticulitis (wpd) FINAL DIAGNOSIS Designated "rectosigmoid diverticulitis", segmental resection: - diverticular disease with peridiverticular fibrosis - intestinal rings - unremarkable CPT code(s): 69860 pkg/wpd 11/13/18 GROSS DESCRIPTION ANATOMIC SOURCE OFTISSUE [...] and contains unremarkable mucosa and surrounding tissue. Assistant Professor Of Criminal Justice sections are submitted in A2. The largest [...] Specimen Inquiry RUN USER: INTERFACE SPEC #: [id number] PATIENT: DAISY HAMMER #[id number] (Continued) GROSS DESCRIPTION (Continued) 1.0 cm and containing green-brown fecal material. No discrete perforationor discoloration in those areas are noted. Assistant Professor Of Criminal Justice sections of the intestine with the diverticula are submitted in A3 - A8. Examination of attached adipose tissue reveals no discrete lymph nodes. Assistant Professor Of Criminal Justice sections are submitted in A9 - A16. /wpd 11/11/18 @ 7659 MICROSCOPIC DESCRIPTION The specimen consists of a segment of rectosigmoid colon containing numerous diverticula which extend through the muscularis into the rectosigmoid adipose tissue. Foci of fibrosis are present adjacent to the diverticula. No granulomas, dysplasia or neoplasia are identified. The intestinal rings are unremarkable. abram/domonique 11/13/18 Signed Deena Storm 11/13/181920 ENDOF REPORT [id number] 07:10:00 Test Item Value Reference Range Interpretation Comments GLUBED (test code = GLUBED) 180 mg/dL 65-110 H COMPREHENSIVE METABOLIC [id number] 05:48:00 Test Item Value Reference Range Interpretation [...] 106 units/L 46-116 N code = ALKP) [id number] 05:48:00 Test Item Value Reference Range Interpretation Comments MAGNESIUM (test code = MAG) 1.8 mg/dL 1.8-2.4 N CBC W/AUTO [id number] 04:49:00 Test Item Value Reference Range Interpretation [...] REQUIRED (test NORMAL NORMAL code = PLTMR) [id number] 21:57:00 Test Item Value Reference Range Interpretation Comments GLUBED (test code = GLUBED) 278 mg/dL 65-110 H [id number] 17:26:00 Test Item Value Reference Range Interpretation Comments GLUBED (test code = 292 mg/dL 65-110 H Hypoglyc emic [employer] GLUBED) [id number] 12:11:00 Test Item Value Reference Range Interpretation Comments GLUBED (test code = GLUBED) 131 mg/dL 65-110 H [id number] 07:23:00 Test Item Value Reference Range Interpretation Comments GLUBED (test code = GLUBED) 110 mg/dL 65-110 N CHEMISTRY 7 [id number] 05:23:00 Test Item Value Reference Range Interpretation [...] code = CA) 7.8 mg/dL 8.4-10.2 L [id number] 05:23:00 Test Item Value Reference Range Interpretation Comments MAGNESIUM (test code = MAG) 1.8 mg/dL 1.8-2.4 N CBC W/AUTO [id number] 05:19:00 Test Item Value Reference Range Interpretation [...] REQUIRED (test NORMAL NORMAL code = PLTMR) [id number] 22:07:00 Test Item Value Reference Range Interpretation Comments GLUBED (test code = GLUBED) 171 mg/dL 65-110 H [id number] 17:41:00 Test Item Value Reference Range Interpretation Comments GLUBED (test code = GLUBED) 157 mg/dL 65-110 H [id number] 13:26:00 Test Item Value Reference Range Interpretation Comments GLUBED (test code = GLUBED) 154 mg/dL 65-110 H [id number] 06:54:00 Test Item Value Reference Range Interpretation Comments GLUBED (test code = GLUBED) 143 mg/dL 65-110 H CHEMISTRY 7 [id number] 13:07:00 Test Item Value Reference Range Interpretation [...] = CA) 8.5 mg/dL 8.4-10.2 N HGB [id number] 12:51:00 Test Item Value Reference Range Interpretation Comments HEMOGLOBIN (test code = HGB) 13.6 g/dL 10.7-13.9 N HEMATOCRIT (test code = HCT) 40.3 % 32.1-42.1 N
[2020-02-11 15:23] LABS: Absolute Lymphocytes (CBC) 2.4 K/uL (0.7-4.9); Basophils % 0.7 % (0-1.3); Lymphocytes % 27.3 % (15.3-44.8); MPV 7.8 fL (7.6-11.3); RBC Red Blood Cell Count 4.61 M/uL (3.86-4.86)
--- NOTE | 2020-02-11 15:27 | RAD REPORT ---
EXAM DESCRIPTION: RAD - Chest Single View - 02/11/2020 3:13 pm CLINICAL HISTORY: CHEST PAIN Chest pain. COMPARISON: Chest Single View dated 12/13/2019; Chest Single View dated 09/29/2019; Chest Pa And Lat (2 Views) dated 08/31/2019; Chest Single View dated 06/20/2019 FINDINGS: Portable technique limits examination quality. The lungs are grossly clear. The heart is normal in size. No displaced fractures. IMPRESSION: No acute intrathoracic process suspected.
[2020-02-11 15:32] LABS: BUN Blood Urea Nitrogen 19 mg/dL (7-18); Bicarbonate 26 mmol/L (21-32); Glucose Level 108 mg/dL (74-106); NT PRO-BNP 18 pg/mL (<125); Potassium 3.6 mmol/L (3.5-5.1); Sodium Level 140 mmol/L (136-145); Troponin (Emerg Dept Use Only) < 0.02 ng/mL (0.0-0.045)
--- NOTE | 2020-02-11 16:28 | RAD REPORT ---
EXAM DESCRIPTION: CT - Head Brain Wo Cont - 02/11/2020 4:13 pm CLINICAL HISTORY: HEADACHE Headache, drowsiness COMPARISON: Head Brain Wo Cont dated 06/21/2019; HEAD BRAIN W O CONTRAST dated 07/24/2012 TECHNIQUE: All CT scans are performed using dose optimization technique as appropriate and may inclu de automated exposure control or mA/KV adjustment according to patient size. FINDINGS: No intracranial hemorrhage, hydrocephalus or extra-axial fluid collection.No areas of brai n edema or evidence of midline shift. The paranasal sinuses and mastoids are clear. The calvarium is intact. IMPRESSION: No acute intracranial abnormality.
--- NOTE | 2020-02-11 16:38 | RAD REPORT ---
EXAM DESCRIPTION: US - Extrem Venous W Compress Cristo - 02/11/2020 3:56 pm CLINICAL HISTORY: Pain;Swelling Bilateral leg edema and swelling. COMPARISON: EXT VENOUS W COMPRESSION CRISTO dated 07/25/2012 TECHNIQUE: Real-time sonographic interrogation of the left and right lower extremity deep venous sys tems was performed. FINDINGS: Normal compressibility, flow augmentation, phasic flow and spontaneous flow is identified in both the left and right lower extremity deep venous systems. IMPRESSION: No sonographic evidence of left or right lower extremity deep venous thrombosis.
--- NOTE | 2020-02-11 16:57 | EDPHYS ---
Physician Documentation [facility] Name: Robyn Carrion Age: 59 yrs Sex: Female : 1960 Arrival Date: 02/11/2020 Time: 14:09 Bed 18 Private MD: Berry Suero F ED Physician Antony Ely HPI: 02/10 15:14 This 59 yrs old Female presents to ER via Ambulatory with complaints of Chest rn Pressure, Leg Pain. 15:14 The patient or guardian reports chest pain that is located primarily in the substernal rn area. Onset: 2 day(s) ago. The pain does not radiate. Associated signs and symptoms: Pertinent positives: headache, lower extremity swelling, Pertinent negatives: abdominal pain, cough, syncope, vomiting. The chest pain is described as a pressure. Duration: The patient or guardian reports multiple episodes, that are intermittent. Modifying factors: The symptoms are alleviated by nothing. the symptoms are aggravated by nothing. Severity of pain: At its worst the pain was moderate in the emergency department the pain has improved. The patient has experienced similar episodes in the past. Reports 2 days of headache, chest pain, leg pain. No trauma or fall. Reports intermittent chest pressure, not worse with exertion. No fever/cough. Reports headache for 2 days and no hx of headache. No focal weakness/numbness. Also reports 2 weeks of knots on both legs, hurt more at night, no trauma, no hx of dvt/PE.. Historical: - Allergies: 14:13 HYDROCODONE; jd3 - Home Meds: 14:13 Lantus Sub-Q [Active]; Amitiza Oral [Active]; Creon Oral [Active]; atorvastatin Oral jd3 [Active]; lisinopril Oral [Active]; Dicyclomine Oral [Active]; - PMHx: 14:13 Diabetes - NIDDM; fernando esophageal disease; cricopharyngeal spasm; Hyperlipidemia; jd3 High Cholesterol; - PSHx: 14:13 stent in pancresous; jd3 - Immunization history:: Adult Immunizations. - Social history:: Smoking status: Patient/guardian denies using tobacco, the patient reports quitting approximately 6 years ago. - Family history:: not pertinent. - Hospitalizations: : No recent hospitalization is reported. ROS: 15:14 Constitutional: Negative for fever, chills, and weight loss, Eyes: Negative for injury, rn pain, redness, and discharge, Neck: Negative for injury, pain, and swelling, Cardiovascular: Negative for palpitations, and edema, Respiratory: Negative for shortness of breath, cough, wheezing, and pleuritic chest pain, Abdomen/GI: Negative for abdominal pain, nausea, vomiting, diarrhea, and constipation, MS/Extremity: Negative for injury and deformity, Skin: Negative for injury, rash, and discoloration, Neuro: Negative for numbness, tingling, and seizure. Exam: 15:14 Constitutional: This is a well developed, well nourished patient who is awake, alert, rn and in no acute distress. Head/Face: Normocephalic, atraumatic. Cardiovascular: Regular rate and rhythm. No pulse deficits. Respiratory: Speaking full sentences. No increased work of breathing, no retractions or nasal flaring. Abdomen/GI: soft, non-tender Skin: Warm, dry MS/ Extremity: Pulses equal, no cyanosis. Bilateral nodular swelling along venous courses. No fluctuance or erythema/streaking. Neuro: Awake and alert, GCS 15, oriented to person, place, time, and situation. Cranial nerves II-XII grossly intact. Motor strength 5/5 in all extremities. Sensory grossly intact. Cerebellar exam normal. Vital Signs: 14:13 BP 166 / 91; Pulse 90; Resp 17 S; Temp 98.4(TE); Pulse Ox 99% on R/A; Weight 69.85 kg jd3 (R); Height 5 ft. 4 in. (162.56 cm) (R); Pain 7/10; 15:00 BP 146 / 93; Pulse 72; Resp 17; Pulse Ox 97% ; bp 16:00 BP 128 / 69; Pulse 72; Resp 14; Pulse Ox 97% ; bp 17:04 BP 165 / 82; Pulse 68; Resp 20; Temp 98.5; Pulse Ox 99% ; bp 14:13 Body Mass Index 26.43 (69.85 kg, 162.56 cm) jd3 MDM: 14:40 Patient medically screened. rn 16:55 Differential diagnosis: acute myocardial infarction, acute pericarditis, anxiety, rn coronary artery disease chest wall pain, costochondritis, esophagitis, gastritis, gastroesophageal reflux disease (GERD), pancreatitis, pericarditis, pleurisy, pneumothorax. Data reviewed: vital signs, nurses notes, lab test result(s), EKG, radiologic studies, doppler, plain films, and as a result, I will discharge patient. Counseling: I had a detailed discussion with the patient and/or guardian regarding: the historical points, exam findings, and any diagnostic results supporting the discharge/admit diagnosis, lab results, radiology results, the need for outpatient follow up, to return to the emergency department if symptoms worsen or persist or if there are any questions or concerns that arise at home. Special discussion: Based on the patient's history, exam, and Dx evaluation, there is no indication for emergent intervention or inpatient Tx. It is understood by the patient/guardian that if the Sx's persist or worsen they need to return immediately for re-evaluation. I have referred the patient to see his PCP for further evaluation of high blood pressure. I discussed with the patient/guardian in detail that at this point there is no indication for admission to the hospital. It is understood, however, that if the symptoms persist or worsen the patient needs to return immediately for re-evaluation. ED course: No acute findings on Dopplers of legs, neg trop, no ischemia on ecg, neg ct head, will dc home with pcp f/u. . 02/10 14:55 Order name: Basic Metabolic Panel; Complete Time: 15:57 02/10 14:55 Order name: CBC with Diff; Complete Time: 15:57 02/10 14:55 Order name: XRAY Chest (1 view); Complete Time: 15:57 02/10 14:55 Order name: NT PRO-BNP; Complete Time: 15:57 02/10 14:55 Order name: Troponin (emerg Dept Use Only); Complete Time: 15:57 rn 02/10 14:55 Order name: CT Head Brain wo Cont; Complete Time: 16:46 rn 02/10 14:55 Order name: IV Start; Complete Time: 15:07 rn 02/10 14:55 Order name: EKG; Complete Time: 14:56 rn 02/10 14:55 Order name: Cardiac monitoring; Complete Time: 15:07 02/10 14:55 Order name: EKG - Nurse/Tech; Complete Time: 14:56 02/10 14:55 Order name: Labs collected and sent; Complete Time: 15:07 rn 02/10 14:55 Order name: O2 Per Protocol; Complete Time: 14:56 rn 02/10 14:55 Order name: O2 Sat Monitoring; Complete Time: 14:56 rn 02/10 14:55 Order name: Extrem Venous W Compression Cristo US; Complete Time: 16:46 rn Administered Medications: No medications were administered Disposition: 02/11/20 16:56 Discharged to Home. Impression: Chest pain, unspecified, Varicose veins of bilateral lower extremities with pain, Headache. - Condition is Stable. - Discharge Instructions: Nonspecific Chest Pain, General Headache Without Cause, Hypertension, Varicose Veins. - Medication Reconciliation Form, Thank You Letter, Antibiotic Education, Prescription Opioid Use form. - Follow up: Berry Suero MD; When: As needed; Reason: Recheck today's complaints, Re-evaluation by your physician. - Problem is new. - Symptoms have improved. Signatures: Dispatcher [employer] EDMS Antony Ely MD MD rn Davies, Jonathon, RN RN jNeto Pate RN RN bp Corrections: (The following items were deleted from the chart) 17:06 16:56 02/11/2020 16:56 Discharged to Home. Impression: Chest pain, unspecified; bp Varicose veins of bilateral lower extremities with pain; Headache. Condition is Stable. Forms are Medication Reconciliation Form, Thank You Letter, Antibiotic Education, Prescription Opioid Use. Follow up: Berry Suero; When: As needed; Reason: Recheck today's complaints, Re-evaluation by your physician. Problem is new. Symptoms have improved. rn
--- NOTE | 2020-02-11 16:57 | ER ---
Nurse's Notes [facility] Name: Robyn Carrion Age: 59 yrs Sex: Female : 1960 Arrival Date: 02/11/2020 Time: 14:09 Bed 18 Private MD: Berry Suero F Diagnosis: Chest pain, unspecified;Varicose veins of bilateral lower extremities with pain;Headache Presentation: 02/10 14:11 Chief complaint: Patient states: "I have been putting this off for a couple of weeks jd3 now, but I am having chest pressure with chest pressure, I also have been having these bumps on my caves popping up with swelling.". Coronavirus screen: At this time, the client does not indicate any symptoms associated with coronavirus-19. Ebola Screen: Patient negative for fever greater than or equal to 101.5 degrees Fahrenheit, and additional compatible Ebola Virus Disease symptoms. Initial Sepsis Screen: Does the patient meet any 2 criteria? No. Patient's initial sepsis screen is negative. Does the patient have a suspected source of infection? No. Patient's initial sepsis screen is negative. Risk Assessment: Do you want to hurt yourself or someone else? Patient reports no desire to harm self or others. Onset of symptoms was February 03, 2020. 14:11 Method Of Arrival: Ambulatory jd3 14:11 Acuity: DARA 3 jd3 Triage Assessment: 14:15 General: Appears in no apparent distress. uncomfortable, Behavior is cooperative, bp appropriate for age, anxious. Pain: Complains of pain in chest. EENT: No deficits noted. Neuro: No deficits noted. Cardiovascular: Rhythm is sinus rhythm. Respiratory: No deficits noted. GI: No signs and/or symptoms were reported involving the gastrointestinal system. : No signs and/or symptoms were reported regarding the genitourinary system. Derm: No deficits noted. Musculoskeletal: No deficits noted. Historical: - Allergies: 14:13 HYDROCODONE; jd3 - Home Meds: 14:13 Lantus Sub-Q [Active]; Amitiza Oral [Active]; Creon Oral [Active]; atorvastatin Oral jd3 [Active]; lisinopril Oral [Active]; Dicyclomine Oral [Active]; - PMHx: 14:13 Diabetes - NIDDM; fernando esophageal disease; cricopharyngeal spasm; Hyperlipidemia; jd3 High Cholesterol; - PSHx: 14:13 stent in pancresous; jd3 - Immunization history:: Adult Immunizations. - Social history:: Smoking status: Patient/guardian denies using tobacco, the patient reports quitting approximately 6 years ago. - Family history:: not pertinent. - Hospitalizations: : No recent hospitalization is reported. Screenin:15 Abuse screen: Denies threats or abuse. Denies injuries from another. Nutritional bp screening: No deficits noted. Tuberculosis screening: No symptoms or risk factors identified. Fall Risk None identified. Assessment: 14:15 General: SEE TRIAGE NOTE. bp 15:14 Reassessment: Patient appears in no apparent distress at this time. Patient and/or bp family updated on plan of care and expected duration. Pain level reassessed. Patient is alert, oriented x 3, equal unlabored respirations, skin warm/dry/pink. VS STABLE. 15:32 Reassessment: U/S AT B/S. bp 16:44 Reassessment: PT RETURNED FROM RAD. ALL CURRENT ORDERS COMPLETED. bp 17:04 Reassessment: PT D/C HOME AMBULATORY WITH FAMILY, DX WITH NONSPECIFIC CHEST PAIN AND BALLESTEROS.bp Vital Signs: 14:13 BP 166 / 91; Pulse 90; Resp 17 S; Temp 98.4(TE); Pulse Ox 99% on R/A; Weight 69.85 kg jd3 (R); Height 5 ft. 4 in. (162.56 cm) (R); Pain 7/10; 15:00 BP 146 / 93; Pulse 72; Resp 17; Pulse Ox 97% ; bp 16:00 BP 128 / 69; Pulse 72; Resp 14; Pulse Ox 97% ; bp 17:04 BP 165 / 82; Pulse 68; Resp 20; Temp 98.5; Pulse Ox 99% ; bp 14:13 Body Mass Index 26.43 (69.85 kg, 162.56 cm) jd3 ED Course: 14:09 Patient arrived in ED. ag5 14:10 Berry Suero MD is Private Physician. ag5 14:12 Triage completed. jd3 14:22 Arm band placed on. EKG completed in triage. Results shown to MD. jd3 14:22 EKG done, by ED staff, reviewed by Antony Ely MD. jp3 14:40 Antony Ely MD is Attending Physician. rn 14:44 Neto Siegel, RN is Primary Nurse. bp 15:06 Placed in gown. Bed in low position. Call light in reach. Side rails up X 1. Warm jp3 blanket given. Verbal reassurance given. clinical psychologist licensed on. Pulse ox on. NIBP on. 15:06 Initial lab(s) drawn, by me, sent to lab. Inserted saline lock: 20 gauge in right jp3 forearm, using aseptic technique. Blood collected. Patient maintains SpO2 saturation greater than 95% on room air. 15:14 XRAY Chest (1 view) In Process Unspecified. EDMS 15:56 Extrem Venous W Compression Cristo US In Process Unspecified. EDMS 16:13 CT Head Brain wo Cont In Process Unspecified. EDMS 16:56 Berry Suero MD is Referral Physician. rn 17:04 No provider procedures requiring assistance completed. IV discontinued, intact, bp bleeding controlled, No redness/swelling at site. Pressure dressing applied. Administered Medications: No medications were administered Outcome: 16:56 Discharge ordered by MD. rn 17:04 Discharged to home ambulatory, with family. bp 17:04 Condition: stable 17:04 Discharge instructions given to patient, Instructed on discharge instructions, follow up and referral plans. Demonstrated understanding of instructions, follow-up care. 17:06 Patient left the ED. bp Signatures: Dispatcher [employer] EDMS Antony Ely MD MD rn Davies, Jonathon, RN RN jNeto Pate, RN RN bp Jose Rodarte jp3 Abdirizak Preston ag5
[2020-02-11 17:27] VITALS: BP 165/82; TEMP 98.5; O2SAT 99
--- NOTE | 2020-02-12 07:34 | EKG ---
Test Date: 2020-02-11 Test Time: 14:18:23 Hatch Tender: CK MEASUREMENT RESULTS: Intervals: Rate: 90 WY: 114 QRSD: 76 QT: 342 QTc: 418 Homer: P: WY: 114 QRS: -18 T: -14 INTERPRETIVE STATEMENTS: Normal sinus rhythm Possible Anterior infarct, age undetermined Abnormal ECG Compared to ECG 09/29/2019 22:05:29 Myocardial infarct finding now present ST (T wave) deviation no longer present Possible ischemia no longer present Electronically Signed On 02-12-20 07:32:28 DISPATCH SPECIALIST by Tj Castro
== END 2020-02-11 17:06 | disposition home or self-care (01) ==
LOC: ER 14:07
DX: I83.813 Varicose veins of bilateral lower extremities with pain (principal); R51.9 Headache, unspecified; E11.9 Type 2 diabetes mellitus without complications; E78.00 Pure hypercholesterolemia, unspecified; Z79.4 Long term (current) use of insulin; Z88.5 Allergy status to narcotic agent
CPT/HCPCS: 36415; 70450; 71045; 80048; 83880; 84484; 85025; 93005; 93970; 99285

== ENCOUNTER 2020-05-06 13:29 | Emergency (ER) | payer OTHER ==
--- OUTSIDE RECORDS SUMMARY | 2020-05-06 13:32 | XMS REPORT | Clinical Summary ---
:1960 Author Organization [facility] Address [address] [place] [id number] Care Team Providers Name Role Phone Berry [...] DIABETIC FOOT EXAM 1968 URINE MICROALBUMIN 1968 COVID-19 VACCINE (1 of 2) 1974 CERVICAL CANCER SCREENING 09/07/1979 BREAST CANCER SCREENING 2008 COLONOSCOPY SCREENING 2008 SHINGLES VACCINES (#1) 2008 INFLUENZA VACCINE 11/08/2019 04/12/2016 Results Not on fileafter 05/06/2019 Insurance Payer Benefit Plan / Subscriber ID Effective Dates Phone Addre ss Type Group MEDICARE MEDICARE PART A [id number] 2001-Present [facility] [place] B Advance Directives For more information, please contact: [phone] Type Date 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
--- OUTSIDE RECORDS SUMMARY | 2020-05-06 13:32 | XMS REPORT | Clinical Summary ---
:1960 Author Organization [facility] Address [address] [place] [address] Care Team Providers Name Role Phone Pastor [...] Barron MD 11/18/2019 - Hospital General Internal [facility], Chronic 11/19/2019 Encounter Medicine [facility] Shabbir pancreatitisBeatrice MD unspecified Merchant, pancreatitis ty pe MD Thang ([facility]) Jam Davalos MD 11/17/2019 Hospital Pre-Admission Testing Encounter 11/17/2019 Travel 08/26/2019 Surgery Gastroenterology Shabbir, UPPER Vinnie Ellismike ENDOSCOPY,BIO MADONNA Barron MD 08/26/2019 Anesthesia Event Gastroenterology Dany Gloria MD Ball, Kenneth Nicholas, CRNA 08/26/2019 Hospital Gastroenterology [facility], Encounter Vinnie Barron MD 08/15/2019 Hospital Pre-Admission Testing Encounter 08/15/2019 Travel after 05/06/2019 Social History Tobacco Use Types Packs/Day Years [...] are i n the results section. after 05/06/2019 Results POC-Glucose meter (11/19/2019 7:32 AM CDT)Only the most recent of5 results within the time period is included. POC-Glucose Meter 130 (H)Comment: 70 - 110 mg/dL [facility] : TESTED AT [facility] [address] [place] [address], [id number]: Gas Generator Operator/Technic debora ID = [id number] for KRISSY FERRER Specimen Blood Performing Organization Address City/State/Zipcode Phone Number [address] [address] CENTER Comprehensive metabolic panel (11/19/2019 6:19 AM CDT) Protein, Total 6.8 6.0 - 8.3 [facility] gm/dL [facility] Albumin 3.5 3.5 - 5.0 [facility] g/dL [facility] Alkaline 119 40 - 150 U/L [facility] Phosphatase [facility] Total Bilirubin 0.5 0.2 - 1.2 [facility] mg/dL [facility] Sodium 136 136 - 145 [facility] meq/L [facility] Potassium 4.0 3.5 - 5.1 [facility] meq/L [facility] Chloride 105 98 - 107 [facility] meq/L [facility] CO2 26 22 - 29 meq/L [facility] BUN 17 7 - 21 mg/dL [facility] Creatinine 0.77 0.57 - 1.25 [facility] mg/dL [facility] Glucose 162 (H) 70 - 105 [facility] mg/dL [facility] Calcium 8.8 8.4 - 10.2 [facility] mg/dL [facility] AST 24 5 - 34 U/L [facility] ALT 27 6 - 55 U/L [facility] EGFR 76Comment: mL/min/1.73 [facility] ESTIMATED GFR IS sq [facility] NOT ACCURATE MEDICAL CENTER CREATININE CLEARANCE IN PREDICTING GLOMERULAR FILTRATION RATE. ESTIMATED GFR IS NOT APPLICABLE FOR DIALYSIS PATIENTS. Specimen Blood Narrative Performed At Gas Generator Operator ID - PIAYA L [facility] Performing Organization Address City/State/Zipcode Phone Number [facility] [address] [place] [address] CENTER CBC with platelet count + automated diff (11/19/2019 5:32 AM CDT) Pathologist Sig nature WBC 13.1 (H) 3.5 - 10.5 [facility]/L [facility] RBC 4.21 3.93 - 5.22 [facility] Hemoglobin 13.2 11.2 - 15.7 [facility] GM/[facility] Hematocrit 37.6 34.1 - 44.9 % [facility] MCV 89.3 79.4 - 94.8 fL [facility] MCH 31.4 25.6 - 32.2 pg [facility] MCHC 35.1 32.2 - 35.5 [facility] GM/[facility] RDW 12.0 11.7 - 14.4 % [facility] Platelets 295 150 - 450 K/CU [facility] MPV 9.5 9.4 - 12.3 fL [facility] nRBC 0 0 - 0 /100 WBC [facility] % Neutros 78 % [facility] % Lymphs 15 % [facility] % Monos 6 % [facility] % Eos 0 % [facility] % Baso 0 % [facility] # Neutros 10.27 (H) 1.56 - 6.13 [facility] # Lymphs 1.95 1.18 - 3.74 [facility] # Monos 0.81 (H) 0.24 - 0.36 [facility] # Eos 0.02 (L) 0.04 - 0.36 [facility] # Baso 0.01 0.01 - 0.08 [facility] Immature 0 0 - 1 % [facility] Specimen Blood Performing Organization Address City/State/Zipcode Phone Number [facility] [address] [place] [address] [facility] Hemoglobin A1c (11/19/2019 5:32 AM CDT) Pathologist Sig nature Hemoglobin A1C 8.1 (H) 4.3 - 6.1 % [facility] Specimen Blood Performing Organization Address City/State/Zipcode Phone Number [facility] [address] [place] [address] [facility] REPORT OF PROCEDURE - ENDOSCOPY URL (11/18/2019 [...] CDT) Case Report Surgical Pathology Report Case: [id number] [facility] OLYSalud Authorizing Provider: Vinnie Cochran Collected: 08/26/2019 12:43 PM [facility] MD [facility] Ordering Location: [facility] Endoscopy Received: 08/26/2019 01:56 PM Services Pathologist: Isac Cummins MD Specimen: Biopsy, Gastr ic, gastric polyp DIAGNOSIS A. STOMACH, POLYP, BIOPSY: [facility] Electronically - ANTRAL MUCOSA WITH POLYPOID FOVEOLAR HYPERPLASIA [facility] signed by Maria G, - NEGATIVE FOR HELICOBACTER PYLORI ORGANISMS B Y WARALYCE PORTILLO [facility] MD Isac on - NEGATIVE FOR INTESTINAL METAPLASIA, DYSPLASIA, MAL IGNANCY 08/27/2019 at 9:36 AM Signing Pathologist Direct Phone Line: [phone] CPT Code(s) [address] [facility] [id number] [facility] CLINICAL HISTORY Procedure: upper endoscopy, biopsy Mayda VALLE DEV Pre and postop diagnosis: acute pancreatitis [facility] SPECIMEN SOURCE A. Biopsy, gastric [facility] GROSS DESCRIPTION A. Received in formalin [facility] labeled with the [facility] patient's name, accession MEDICAL CENTER number and "gastric biopsy", with the additional description "gastric polyp" is one irregular winston-pink piece of mucosal-covered soft tissue measuring 0.4 x 0.3 x 0.2 cm. The specimen is submitted in toto following filtration in cassette A1. RAFA/pl MICROSCOPIC Performed. [facility] SPECIAL ST[facility] The interpretation of this c ase included the use of immunohistochemistry or special stains. [facility] Control Slides Examined: In -house known positive controls were evaluated along with the test tissue. These control slides run alongside of the patients sample show appropriate staining. Internal [facility] charlene and negative controls when available are evaluated Immunohistochemistry technjet dai testing was performed at [facility] Pathology Laboratory where it was developed and its performance characteristics were determined. It has not be en cleared or approved by [facility] U.S. Food and Drug Administration. The [...] ) Performing Organization Address City/State/Zipcode Phone Number [facility] [address] [place] [address] CENTER after 05/06/2019 Advance Directives For more information, please contact: [phone] Code Status Date Activated Date Inactivated Comments Full Code 11/18/2019 4:59 PM 11/19/2019 3:03 PM This code status was determined by: Patient
--- OUTSIDE RECORDS SUMMARY | 2020-05-06 13:33 | XMS REPORT | Continuity of Care Document ---
:1960 Author Organization [facility] t Address [address] [place] [address] Dr. Brennan [address] [place] [id number] Care Team Providers Name Role Phone Pio [...] Expiration Date Sour ce Number MEDICAREMEDICARE A [id number] 2001 ROSETTA Crump [id number] 2001-P 00:00:00 - Medical resentMedicare Center MEDICAIDMEDICAID OF [id number] 2017 ROSETTA Crump [id number] 00:00:00 - Medical -PresentMedicaid Center Problems Condition Condition Condition Status Onset Resolution Last Treating Co mments Source Name Details Category Date Date Treatment Clinician Date Biliary Biliary Disease Active [facility] Hyperlipid Hyperlipid Problem Active [facility] [place] [facility] Hypertensi Hypertensi Problem Active [facility] [place] [facility] Diabetes Diabetes Problem Active [facility] [place] [facility] Follow up Follow up Problem Active [facility] [place] [facility] Allergies, Adverse Reactions, Alerts Allergy Allergy Status Severity Reaction(s) Onset Inactive Treating Comm ents Source Name Type Date Date Clinician Codeine Drug Active Nausea And [facility] Allergy [facility]iting [facility] - [facility]: Medical 00 [place] Hydrocod Drug Active Nausea And As per [facility] one-Acet Allergy Vomiting, 08-14 patient, Romina blank - aminophe Other (See 00:00: " it Medi sarah n Comments) 00 wears on Cente r my stomach" hydrocod DA Active [facility]31 [facility] [place] Hydrocod Propensi Active [place] ty to 7- Methodi adverse 00:00: st reaction 00 s to drug Family History Family Member Diagnosis Comments Start Date Stop Date Source Unknown Family Family history of Other Uni versity of Member diabetes mellitus [place] [facility] Unknown Family Family history of Other Uni versity of Member hypertension [place] [facility] Unknown Family Family history of Other Uni versity of Member Heart problem [place] [facility] Natural father Diabetes [place] [facility] Natural father Hypertension [place] [facility] Natural mother Diabetes [place] [facility] Natural mother Heart disease [place] [facility] Natural [facility] Social [facility] Social Habit Start Date Stop Date Quantity Comments Source History of tobacco Current smoker [facility] use [facility] Center History SDOH [facility] - Alcohol Std Drinks Medica Center History SDOH [facility] - Alcohol Binge Medical [place] ter Sex Assigned At [facility] Cigarettes smoked 2019-11-18 2019-11-[address] [facility] - current (pack per 00:00:00 00:00:00 Medical Center day) - Reported Cigarette 2019-11-18 2019-11-[address] [facility] - pack-years 00:00:00 00:00:[address] [facility] Tobacco use and 2019-11-18 2019-11-[address] Romina kes - exposure 00:00:00 00:00:[address] [facility] Alcohol intake 2019-11-18 2019-11-18 Current drinker [facility] - 00:[facility]00 00:[facility]:00 of alcohol Medical Center (finding) Alcohol Comment 2019-11-17 2019-11-[address] Romina kes - 00:00:00 00:00:[address] [facility] History SDOH 2019-08-15 2019-08-[address] [facility] - Alcohol Frequency 00:00:00 00:00:[address] [facility] Tobacco Comment 2019-08-15 2019-08-15 quit [address] [facility] - 00[facility]00:00 00:00:00 ago [facility] Smoking Status Start Date Stop Date Source Former smoker 2019-11-18 00:00:00 2019-11-18 00:00:[address] [facility] - [facility] Never smoker [facility] Medications Ordered Filled Start Stop Current Ordering Indication Dosage Frequency Signature Comments Components Source Medication Medication Date Date Medication? Clinician (SIG) Name Name atorvastati Yes 40mg QD Take [address] [facility] (LIPITOR) 8-12 by mouth Luke s - 40 MG 13:03: daily. Medical tablet 21 Center dicyclomine Yes 20mg Take [address] (BENTYL) 20 8-12 by mouth Luke s - mg tablet 13:03: every 6 Medic al 21 (six) Center hours. insulin 2019-0 Yes QD Inject [facility] glargine 8-12 subcutaneo [facility] - (LANTUS) 13:03: usly Medical 100 unit/mL 21 nightly Cente r injection Use as directed . lisinopriL 2020-0 Yes 10mg QD Take [address] (PRINIVIL,Z 8-12 by mouth Luke s - ESTRIL) 10 13:03: daily. Medic al MG tablet 21 Center lubiproston 2019-0 Yes 8ug Take [address] e (AMITIZA) 8-12 by mouth 2 Romina kes - 8 MCG 13:03: (two) Medical capsule 21 times Center daily as needed . lipase/prot 2020-0 Yes [id number] Take [facility] ease/amylas 8-12 [id number] 36,000 [facility] - e (CREON 13:03: 3D [...] Source Systolic blood 2019-11-19 11:32:00 126 mm[Hg] [facility] Diastolic blood 2019-11-19 11:32:00 60 mm[Hg] [facility] S [facility] Heart rate 2019-11-19 11:32:00 57 /min [facility] Body temperature 2019-11-19 11:32:00 35.72 Alysia [facility] Respiratory rate 2019-11-19 11:32:00 20 /min [facility] Oxygen saturation in 2019-11-19 11:32:00 98 /min [facility] - Arterial blood by Medical Ce nter Pulse oximetry Body height 2019-11-18 06:58:00 157.5 cm [facility] Body weight 2019-11-18 06:58:00 69.355 kg [facility] BMI 2019-11-18 06:58:00 27.97 kg/m2 [facility] Height 2018-05-24 10:25:00 62 [in_us] [facility] s Weight 2018-05-24 10:25:00 154.9 [lb_av] [facility] [place] [facility] Body Mass Index 2018-05-24 10:25:00 28.33 kg/m2 Unive rsity of Calculated [place] [facility] BP Systolic 2018-04-26 10:21:00 127 mm[Hg] [facility] [place] [facility] BP Diastolic 2018-04-26 10:21:00 76 mm[Hg] [facility] [place] [facility] Height 2018-04-26 10:21:00 62 [in_us] [facility] [place] [facility] Weight 2018-04-26 10:21:00 155.6 [lb_av] [facility] [place] [facility] Body Mass Index 2018-04-26 10:21:00 28.46 kg/m2 Unive rsity of Calculated [place] [facility] Temperature 2018-04-26 10:21:00 97 [degF] [facility] [place] [facility] Heart Rate 2018-04-26 10:21:00 73 /min [facility] [place] [facility] Procedures Procedure Date / Time Performed Performing Clinician Sourc e POCT-GLUCOSE METER 2019-11-19 07:32:00 Jam Daval[address] [facility] COMPREHENSIVE METABOLIC 2019-11-19 06:19:00 Padmini Armando [facility] HEMOGLOBIN A1C 2019-11-19 05:32:00 P[address]i [address] [facility] CBC W/PLT COUNT & AUTO 2019-11-19 05:32:00 Padmini Armando [facility] POCT-GLUCOSE METER 2019-11-18 21:05:00 Thang Oden [facility] REPORT OF PROCEDURE - 2019-11-18 11:51:31 Vinnie Oglesby [facility] - ENDOSCOPY URL [facility] [place] ERCP 2019-11-18 11:08:00 [facility] ERCP,PAPILLOTOMY 2019-11-18 10:18:00 [facility] W/ C-ARM 2019-11-18 10:18:00 Vinnie Oglesby [facility] ERCP,BALLOON SWEEPING 2019-11-18 10:18:00 [facility] POCT-GLUCOSE METER 2019-11-18 07:34:00 Reny [facility] REPORT OF PROCEDURE - 2019-08-26 13:44:33 CalebtinaDaniel [facility] ENDOS[facility] URL [facility] POCT-GLUCOSE METER 2019-08-26 13:14:00 Calebtinamike [facility] TISSUE EXAM 2019-08-26 12:43:00 Ottinamike [facility] UPPER ENDOSCOPY,BIOPSY 2019-08-26 12:18:00 Calebtinamike [facility] UPPER 2019-08-26 12:18:00 Calebtinamike [facility] - ENDOSCOPY,SUBMUCOSAL [facility] ter INJECTION UPPER 2019-08-26 12:18:00 Calebtinamike [facility] - ENDOSCOPY,ULTRASOUND [facility] ter POCT-GLUCOSE METER 2019-08-26 11:28:00 tinamike [facility] Plan of Care Planned Activity Planned Date Details Comments Source Future Scheduled 2019-12-09 INFLUENZA VACCINE (#1) [facility] Test 00:00:00 [code = INFLUENZA Medical Ce nter VACCINE (#1)] Future Scheduled 2019-11-08 INFLUENZA VACCINE [place] [facility] Test 00:00:00 [code = INFLUENZA VACCINE] Future Scheduled 2008 BREAST CANCER [facility] thodist Test 00:00:00 SCREENING [code = BREAST CANCER SCREENING] Future Scheduled 2008 COLONOSCOPY SCRE[place]ING [place] [facility] 00:00:00 [code = COLONOSCOPY SCREENING] Future Scheduled 2008 SHINGLES VACCINES (#1) [place] [facility] Test 00:00:00 [code = SHINGLES VACCINES (#1)] Future Scheduled 2003-09-[address] [facility] - Test 00:00:00 (procedure) [code = Medical Center 27504109] Future Scheduled 2002-10-[address] [facility] - Test 00:00:00 WELLNESS (YEAR 2 or Medical Center FIRST YEAR if no IPPE) [code = MEDICARE ANNUAL WELLNESS (YEAR 2 or FIRST YEAR if no IPPE)] Future Scheduled 1979-09-07 Screening for [facility] Test 00:00:00 malignant neoplasm of cervix (procedure) [code = 272104478] Future Scheduled 1979-09-[address] [facility] - Test 00:00:00 malignant [facility] cervix (procedure) [code = 518699005] Future Scheduled 1974 COVID-19 VACCINE (1 of [place] [facility] Test 00:00:00 2) [code = COVID-19 VACCINE (1 of 2)] Future Scheduled 1968 DIABETES: RETINAL EYE [place] [facility] Test 00:00:00 EXAM [code = DIABETES: RETINAL EYE EXAM] Future Scheduled 1968 DIABETIC FOOT EXAM [place] [facility] Test 00:00:00 [code = DIABETIC FOOT EXAM] Future Scheduled 1968 URINE MICROALBUMIN [place] [facility] Test 00:00:00 [code = URINE MICROALBUMIN] Future Scheduled [address] [facility] - Test 00:00:00 [facility] breast (procedure) [code = 082913148] Future Scheduled [address] [facility] - Test 00:00:00 malignant neoplasm of [facility] colon (procedure) [code = 102627264] Encounters Start End Encounter Admission Attending Care Care Encounter Source Date/Time Date/Time Type Type Clinicians Facility Department ID 2018-05-24 2018-05-24 RAFAT [place] [id number] [facility] 10:30:00 10:30:00 t; WILL, Surgery nelson ANTONIO D.[facility]. [facility] SOLIS D.O. ans 2018-04-26 2018-04-26 RAFAT [place] [id number] Univers 10:15:00 10:15:00 t; nelson SOLIS D.O. [place] Adrian SOLIS D.O. ans 2018-04-19 2018-04-19 RAFAT [place] [id number] Univers 10:00:00 10:00:00 t; nelson SOLIS D.O. [place] WILL, Physici D.O. ans 2018-03-27 2018-03-27 [facility] MARISELA, UTP UTP [id number] Univers 10:30:00 10:30:00 t; nelson SOLIS D.O. [place] WILL, Physici D.O. ans 2018-03-22 2018-03-22 [facility] MARISELA, UTP UTP [id number] Univers 10:30:00 10:30:00 t; nelson SOLIS D.O. [place] WILL, Physici D.O. ans 2018-03-06 2018-03-06 [facility] FREDERICK, RAFAT UTP [id number] Univers 08:30:00 08:30:00 t; CYRIL MACK M.D. i ty [facility] [place] Physici ans 2018-02-14 2018-02-14 [facility] MARISELA, UTP UTP [id number] Univers 08:15:00 08:15:00 t; nelson SOLIS D.O. [place] WILL, Physici D.O. ans 2018-01-11 2018-01-11 [facility] MARISELA, UTP UTP [id number] Univers 10:30:00 10:30:00 t; nelson SOLIS D.O. [place] WILL, Physici D.O. ans Results Test Description Test Time Test Comments Results Result Comments Source Hemoglobin A1c 2019-11-19 09:28:00 Test Item Value Reference Range Interpretation Comme nts Hemoglobin A1C (test code = 4548-4) 8.1 % 4.3-6.1 H Lab Interpretation (test code = 87971-5) [facility] [id number] 09:28:00 Test Item Value Reference Range Interpretation Comments HEMOGLOBIN A1C (BEAKER) (test code = 8.1 % 4.3-6.1 H 368) POC-Glucose [id number] 07:44:00 Test Item Value Reference Range Interpretation Comments POC-Glucose Meter (test 130 mg/dL 70-110 H : TE STED AT [facility] code = 1538) 67[address] [facility], 770 30: Truck Supervisor/Techni wendy ID = [id number] for KRISSY FERRER Lab Interpretation (test Abnormal code = 34028-8) [facility] [id number] 07:44:00 Test Item Value Reference Range Interpretation Comments POC-GLUCOSE METER 130 mg/dL 70-110 H : TESTED A T [facility] 6720 (BEAKER) (test code = [place], 1538) [address]: Truck Supervisor/Techni wendy ID = [id number] for KRISSY FINNEGAN Comprehensive metabolic [id number] 06:55:00 Test Item Value Reference Range Interpretation Comments Protein, Total (test 6.8 6.0- 8.3 gm/dL code = 2885-2) Albumin (test code = 3.5 g/dL 3.5-5 41288-5) Alkaline Phosphatase 119 U/L 40-150 (test code = 6768-6) Total Bilirubin (test 0.5 mg/dL 0.2-1.2 code = 1975-2) Sodium (test code = 136 meq/L 020-764 3712-2) Potassium (test code = 4.0 meq/L 3.5-5.1 2823-3) Chloride (test code = 105 meq/L 98-107 2075-0) CO2 (test code = 26 meq/L 22-29 2028-9) BUN (test code = 17 mg/dL 7-21 3094-0) Creatinine (test code 0.77 mg/dL 0.57-1.25 = 2160-0) Glucose (test code = 162 mg/dL 70-105 H 2345-7) Calcium (test code = 8.8 mg/dL 8.4-10.2 80619-9) AST (test code = 24 U/L 5-34 1920-8) ALT (test code = 27 U/L 6-55 1742-6) EGFR (test code = 76 mL/min/1.73 [place] [address]-3) NOT ACCURATE CREATININE CLEARANCE IN PREDICTING GLOMERULAR FILTRATION RATE . ESTIMATED GFR I S NOT APPLICABLE FOR DIALYSIS PATIENTS. TRUDY (test code = TRUDY) Truck Supervisor ID - PIAYA L Lab Interpretation Abnormal (test code = 93021-0) [facility] [id number] 06:55:00 Test Item Value Reference Range Interpretation [...] S NOT APPLICABLE FOR DIALYSIS PATIEN TS. Truck Supervisor ID - PIAYA LCBC with platelet count + automated [id number] 05:55:00 Test Item Value Reference Range Interpretation [...] 450 K/CU MM MPV (test code = 57797-6) 9.5 fL 9.4-12.3 nRBC (test code = [...] 2801) Lab Interpretation (test code = Abnormal 21802-1) [facility] W/PLT COUNT & AUTO [id number] 05:55:00 Test Item Value Reference Range Interpretation [...] PERCENT (BEAKER) (test code = 2801) POCT-GLUCOSE [id number] 21:17:00 Test Item Value Reference Range Interpretation Comments POC-GLUCOSE METER 255 mg/dL 70-110 H [facility] (BEAKER) (test code = [place], 1538) [address]: Truck Supervisor/Techni wendy ID = [id number] for ABHILASH MARTI [id number] 11:22:39INTRA OP IMAGINGReason for exam:->abnormal imaging Fluoroscopic unit utilized for a procedure performed in the OR. No interpretation was requested. Refer to the operative report for findings. Refer to PACS for patient radiation dose information.FL [id number] 11:22:39 Interface, External Ris In - 11/18/2019 11:22 AM CDTFluoroscopic unit utilized for a procedure performed in the OR. No interpretation was requested. Refer to the operative report for findings. Referto PACS for patient radiation dose information.[facility] [id number] 07:45:00 Test Item Value Reference Range Interpretation Comments POC-GLUCOSE METER 155 mg/dL 70-110 H : TESTED A T [facility] 6720 (MAN) (test code = [place], 1538) [address]: Truck Supervisor/Techni wendy ID = [id number] for ED WARDS, KATIE Tissue [id number] 09:36:00 Test Item Value Reference Range Interpretation Comments Case Report (test code Surgical Pathology = 104) Report Case: [id number] Authorizing Provider: Vinnie Oglesby Collected: 08/26/2019 12:43 PM MD Beatrice Ordering Location: [facility] Endoscopy Received: 08/26/2019 01:56 PM Services Pathologist: Isac Cummins MD Specimen: Biopsy, Gastric, gastric polyp DIAGNOSIS (test code = u4wifJOiYPOzk7sjIULjlV 3220) FuZzEwMzNcZnRuYmpcdWMx VOoyhpUjMAacq0MwY9BkOo AwMFxhbnNpXGRlZmxhbmcx SXYnEOA5heScKTYrYUiyHP IjFLikJx4nmSNuwImcPhEf HVXld9wtetBTgkxosLg8l6 grKTQoGrL5dAKbUCgvA1ja zwBjcVVcQTEoURg4vT56LB DadB0kwEDkODefkeUqStB3 RXocLUHtZfM0LGZinYOhPF WkS3bpHRZjAObsOHBmTCrs eIGdBOT4mLfbf5W1mZIcgF JeoOpjMpShRbVuCCAAj7Ud VFt7qTwcL4ZhADPuVvF7pE QgUGFyYWdyYXBoIEZvbnQ7 pL25UTxrviE9hMMim4Zxx7 7kq674sT9gbUMlSMB3UVTt KKYymNPxIKTfXXH8GLNdpL ErC3f4JyFavKJmL0O0CtUt aMBaP8X2VtQbqXFfT2W9Ib WsaSMlHSFpcUOuKd0slTRx wLDbvi5dwm34YBF4w2LucH vmWCY7MZH1StFiPx2dtADq IKAxBG7sMuVnaAPfRAJzwo 79wCdvEIobknHxwZ2kQzMs CO4nrGdzz05wFWTsWR1ufK 2pnh4zexEzVEgicRMcuKJ6 cypkJJF1IXSrifTub4Tro0 zfTjNxsrPrO7anP6PuLSFj ALUdPMCdWdUfnoBbl5Ulj6 IxkREpgBu7v5tyXBSkELIh zBwql0tmMRZ6EWQeP5P0qQ Jaw8uhFXwdRVWolNJ0jlig RBhgCWEwprY9vspkWCdrUA SfhVQ3odipHCcsDQGfTwI7 whnoHGauSSRuETT0QIlcj2 31RZU0RDdhFfadGHfmCGVn bmNvbnRccGduZGVjXHBsYW luXHBsYWluXGYwXGZzMjRc zVBcKAihx5YrjgLcpDxwBL OzZVw3rgKsjyxotXv4kJVn lTpzZGBmbPptkH2mTcWlOu HiZNqkZZ7zJUTnR7iqzINp USHwPPNiP6iaSdCsiT6olB xmMVxmczIwIEEuIFxwbGFp blxmMVxmczIwXGxhbmcxMD VzDEhzA6hpYgReYOXvjHhw YEaks2KlQNYlIBGiTiklss StWRn4qjBzBXURH90SY8wy IFxwbGFpblxmMVxmczIwXG ohcuijTPAkGYpwX3rzMsLb JJNfzWcwXZnru7IqBHTzQD PgLhQyJC5PNZCyYDikzTCq blxmMVxmczIwXGxhbmcxMD AyYLhiI0vvXlJcNKErgPnv XOhwn0RaDKXnJJUmSuxizt KpHNl0zhDoWDHLK8KMBENl YWluXGYxXGZzMjBcbGFuZz EwMzNcaGljaFxmMVxkYmNo VTZsRHqdN0buPtRhRgZsDC BZXHBsYWluXGYxXGZzMjBc bGFuZzEwMzNcaGljaFxmMV lnQgKuUOXvPCciZ1amIdRw T4RrGEJhBkShiOMiW5ihRr bwNOSslAugjU5jSwGkRmJl SWzaUV9sCFAqC7jmfHQrDX NwZPVuO2zdSrRstJ2gbPpa UOiynbEwWOPziUpydA0dYf WzYvPgUYfzRG2qYNIlI9xy wQFrTFXpZTSdX4lzWxSvmB 9jaFxmMVxjZjJcZnMyMFxs dHJjaCAtXHBsYWluXGYxXG ZzMjBcbGFuZzEwMzNcaGlj aFxmMVxkYmNoXGYxXGxvY2 hcZjFcZnMyMCAgXHBsYWlu XGYxXGZzMjBcbGFuZzEwMz NcaGljaFxmMVxkYmNoXGYx VGmuL3nqXrWhR5XtISQrUd KnjWAqX3ehRCNZQNBBCJTZ DVSKH8HoW9bQTLCznXeamX 0oVmVsIkDcOWebJB4yJLWo O1yttZMsFJJpTRKwG1mvHz FbqG9fcLsmMQopclCzDIKL VXjCF1rXSPBTQjOGPTHFDE dVRVRYRTcAN5dDCPEaliXp XHBsYWluXGYxXGZzMjBcbG FuZzEwMzNcaGljaFxmMVxk CbHsENZiCJdlU2lrWaNpY8 ViVQNzMeWwbXMaR1btNPph bGFpblxmMVxmczIwXGxhbm gfRBQaYAfwF4ihVdXfJPCe kJqfJWwrc0DtLGUpHSOmNd AgIFxwbGFpblxmMVxmczIw RSoafiorHIQtLKlcK5fcUu MiBIAlqAatOPvli1BbERRk KTExKtvbdbAbZNw6ppCvNI TAWIqZDZfZBEFLY6DuLSLI WOPRKzIJAZAPHDAXIL0SXF RGImpOPucWZBQiIofeB8GC AHmLIwGSCVWNXgfjC0OCJQ 3nwCGsMUCqcyTye2AsNANl TOA9MGitTCluwZpxmHCizy ncNHfhjtN6TRWbMVnzBVYq XGZzMjBcbGFuZzEwMzNcaG ljaFxmMVxkYmNoXGYxXGxv O2beBrHjDnMtLWOoCBEeIB luXGYxXGZzMjBcbGFuZzEw MzNcaGljaFxmMVxkYmNoXG SwTTneS8oiFzCaD4RiSAPq PxVfyIEeD9reBGikeMYnbl xmMVxmczIwXGxhbmcxMDMz JSmxE7syFcNzBOJwhHijEZ gqb4HlSKBdWQPpAvWqMHjw bGFpblxmMVxmczIwXGxhbm vkZUQkLMmcF3nhGwWjTNMj uKgiQIhjd2VeFALmANNwBe httnWmTTb5ylFzJQKFTIpU SKoFZTDYY9BpSV3IOFCCPD 7RLKFMWPJBLKhID1yFANCW YQAGNRRQPSXnOM5LJYtRCj LGL7pwbQzrfI1cYoLfFvBg SJajUJ5hGBKaS1ryqFGiID QuTKMkL8caMmUmmC3ksOto PAysddSmCRRzehnpYRQ9k2 xydGYxXHNzdGUxODAwMFxh bnNpXGRlZmxhbmcxMDMzXG B4hbFrUVFoLFtbOSFiSQag Hi0tcLBpoIoaXiBsNOFie3 qydqDKlxlhaUx4b9irSKUv QuB2dPGxJFewU0xbqrJfmY DpNOCuWJn4mJ99KBIaqS9q nHDyHScsqnUrXfF8DSmyZL TjKuH5QESczVUnLVZwQ8oe ZWQwXGdyZWVuMFxibHVlMC B6iUodf8P2xHUmjTEnwMck HhKwDaBjEsGRz6HjDBt4sL seU8NgQXUvAiL6mTUpHCRz RJxyFWVbZWTvedZ8vE76CT ffrkJ2hKRuq8Zbe50ik076 tM7mrFBnSZY1FITbZXQtjH EpVMOoCMV8XVOkyPDrF9wa BNAyXS6ddwcdIUqiQFysGU XsuXW0YDKfpDPhR8CoEAGd WSaoBEQrzls8DmAsKu0hoI AaySibZQqjn2vzd0lntQCh Bpm2ATRoRcQuVigmHVlbd2 Vez4ljMZGqgv3tFGM1fMPo fUpwm4D6tBBuBSLycIPtFM YiXV5xwHQvLDSxrF6utacy XHBnYnJkcmhlYWRccGdicm UvGl3qbUizVBR7KWugS7yc qW4aVvG7MHwnL3sqqE3tKJ l3PMgxMYBoaFL3onW3BDJd uQMuH0EcoI8xOOPvIF4rrd j1y9rwFJT0VCdzWIXyLcF0 gwD9YCTxoCKeMCBzdGtaCO vgv315EWU4UhAlKRYlf4Vl K9PgkRbpR32roIgtE41eZZ IcqMfovD4vdIzouX7iEkPe SeErOPsfmSddYW9jDXAbM9 uxpDTqYJIjTSMqG4qcBdGj iD9tlFwcWSaolhDzKCEfTh z0FKTsdCAjODZfJpr9IGJg XLVhA53hbfkkACF7pR8ib8 hxa0YrZGzkLOO5DXUfu02o RQaykoT9VCjjRy0vCcBpHL G2JKvwTFN0hM== CPT Code(s) (test code p1ejzSAcNDGmfEAyWlRlZE = 3357) VyMQCpy2sdTVAbkXFzAvDs MzNcZnRuYmpcdWMxXGRlZm Kxc4pjf925yZPcy2viMVWt UiE0lLXbDDJbqKYlX283o9 tds5sjblBrsZG9PXSpXCL2 ADaewqVwbqO1SUrrhOTlIy R7DPabgoQbXSibeyEpeoQz Yml3ISKpK075STY8bQuhl1 xrOZJ8TYYjBOVuOrWzYx4e cCMiC438SBNsBLBSRDLcmU p5DYCfyrWhbwQgjGHUg136 E002i9qqBJMwneJsnUaOgz nzd9pzL540DRKuiLXjciXd ZeFsDJDxiQKggTZ9IAXiYO 8avlacDxSmZE6mxpqsReBx MX3wpnv8NyRuSK9vzgjmFv AmKHneYNQlmvyrEZIqe9Df peoaZC1cP5Arj4D3jY7quB UgPDRvtWSvPxXyAMVufx3s tIIfHXiym4KqCRN3giC7jV SpqYBnBQAjXX28Luowk7Wx AbgmAGI7JDLvrsMqt8Kce1 ddHgWjynTgO0buF6FyYGCr TIGsSMTiFiIddyAjo8Eqn6 VoqJVaeHs2z2gtVEFzZMLt qFdmo6fwCGF4XMTmD2S4qV Exy0jcTTdjFZVpyHV5nanh ZQddXAJyufL4sygvIKydXM NwnXM1mvtwGYkbTPUnXzC3 zbphYCrcDCChXWR0CZyxp6 61DHM6RVkjEgdvZRkwQLZa bmNvbnRccGduZGVjXHBsYW luXHBsYWluXGYwXGZzMjRc uPpapHqpjW0kIaXpCwSvUW yqED4iBCYyC5vxeREbAVNz NUEfR1tvXoEmdR7hoAmtIS exiqNbQFk0ZbK5XAUodlA8 ODMxMlxwYXJ9 CLINICAL HISTORY (test r7bsuQTtQRNxhDUnRtVeAW code = 3354) CbVSWgf4koYYWrhRHvCuWo MzNcZnRuYmpcdWMxXGRlZm Pwp5kgp809qWOnu2qoGNFm AqA6lMKdJGCgeTXzS569PC CyMUvbm4bsn5QxERAehXXo e1D1BTOPlpawoYk0uZivL6 1uv1W4GaqiR7siEKLoYVga JMMxZYfvwVQeUKD6QRBkPU C7DKaeqhUrlcP4JMtiuYKf DxQ8PAn6f6ycjUavYJWdBQ G6b5qdNUxkewRaOJ3euo3i uGo8c7mxukDyRVYoMKDryM CGLDStB4GofHeiWz7ohXh3 bMkeJzpeRHP2Jfn2RO9xeg 19gak7kGnnYZJaullaBcA2 IBteTMZdoxoaYZb6QDohEG JnbDcyMFxtYXJncjcyMFxt YXJndDcyMFxtYXJnYjcyMF slIJTvIJR5NDtvn281FIH8 JPvza2pvg1iqqIHbGco8LT QrCpZtEbveGGkzx6Yaz4cg FOYgzq8aWSU4oOMxfXdsg7 O1mVDzAXMwwZPwhhJwLFFi MuU8LCffVE8mwp46WXDzOS L0nk2clYIuzRukffYzuZLp GSkxH0WkWVRai068UJEdL2 UmHMKvg8S9wsUdTlGeNDEa cKG1acG7PKLuAKc8dHYdzz U3pcLxeGCnC9fxmV15UfGi xVMxR7BhdO47KeFxuNRxM3 BkgY80WsTpjLJiZ6ZqaM55 VeAfuZIoKWHgbYAxTu0mlV OmfNYnz2RqxSXwHEubF90p o293MXEtolMvO7dymKFboq xwbGFpblxmMFxmczIwXHFs XHBsYWluXGYwXGZzMjBccG txpR0jZxZfZhUbXPIPmt3c WWV1taY5LYUhwAIaTMGwAW 9oT58gwSueNsaadVK9PUEh llWHwqZlVS6kWQZbv8IhdF CkuYFxsi1xiTR6OEZaxKGc GZGbxvPvZYP5wCNgaqYfsO FyfQ== SPECIMEN SOURCE (test h9yudYVoQANpoWZqKjVdOB code = 3377) GvHYOef1sbEWNfxBUbBrZq MzNcZnRuYmpcdWMxXGRlZm Fbm7wyt064lTYmq1adOPDb TjH6uYUaDJJizXUaZ720b7 wia0kgimUsnYN1WFPlHSH6 VDdwzpAvgeB3VProjFGyYj Z8AUdkumRrKTwvkdFfvcPa Acd4UUThG931DTV8mBwhl5 jjVYM8AZIwAXBgDhZcPl2d dYCgP460IYZxHEIPVGFkdV q5QZMnzlTgjrUyzWVOd857 G744j4pyBBZmcrBuhGbLks joa5ptV847JDOvtQSnpgSg TrUiNUKriTCctFL4XRRaJC 5hsnluTgYsSF6vkquwHnWm ZO1wcpc0GgBoYH0ybhbmIv VcHAmgBIOydfnrKVKir7Vd ucwkXV5jP1Jtj3Q8vA5niQ MqLAFgaTBbOvSbPQKulz9b nNPzIKqgd6EhGFY6exP3iN RqrKBaMBCiAA25Ugmhq7Ll LjyzIPE4TTUkpoIvz1Niv5 hcFoQexhKhY7tjP1AcGSTa NIGcKPLfIlAoceUmf4Snp2 KpdHMqkYb4y3jrVYDvMKHy sQouf1hrNBU5CGKvQ6U1wU Esa1cjMEbzUOFlzMO9xgli HRiySNSzdeT0qjtuBAfhKC AvpHY4jbexXZfmUWJxUsT5 cpcdCXxiHCXrPFN8JKzyy4 23URR7SFumWounWCevRPIp bmNvbnRccGduZGVjXHBsYW luXHBsYWluXGYwXGZzMjRc pRzxgPqggP6gRlZuMbDsVA syMS8dVFJpP6hbnVUiSPNq WLLbA3oqZqCzsC1uuJpmVE efziXnFMRcBKIpz6TyqUla L8QagXShO7qwBDA0 GROSS DESCRIPTION (test l5molFTxKGUljNHhPkSyZY code = 3366) KiPKTtr0pqJYIvtECqLdPq MzNcZnRuYmpcdWMxXGRlZm Lij1uvm093lJPjb8cyYUNf JvO0zQEiECQiwONmH558HZ ReGImht3tdk9NyNREfsVSa d9O7IGYLffiklBi9kCdbD5 9tw4V6CacdY8ifWFMlJEpe DZFvJImsmASyAIV3EGLyCC O8MLwnrpGywgK0EUwlyACb YqB4IJx2c3ecqCoaWYKwXW R9i9shXTlrfkPeKN6wcy6i cZl0y8cmchYgAKXyCYCwwL NTQODpK3ZszAbuVb7aeBo6 oMkaAgxjLYG3Qxe0JK9ohx 68nwj2cAoaUEGcmflaJhF1 CSthUNVoidesMKz3ZZbmZT JnbDcyMFxtYXJncjcyMFxt YXJndDcyMFxtYXJnYjcyMF unEUKyIUG7MLklk858AVA6 MFysa4odp2fijVXpBsk3YM GhOcViKjwcBCdhw6Kec7dl EODtgc9vUVE6zNIabSmqz3 I7qMRjPUXutXCmzzGpZLSr ApB2NNehWO6oet12JKNdSI Z3yq8yxUErjChzpoVbxQCa KMhxS7ItUWTsc718TEYyE7 UiEHTkr6P2xkMqMkCvGXXh eXP3vyO4OKPbBXd7dNFgla Y7fcOqtVDrK3skmA55WtJx cNZpQ9MxeW23JbQcjEFzT2 MfpR82YqWvxJThA6NegM29 LqNugXIqGZNieZUjPa3bfS XenGUmy4IzlRLfNZmmQ44v [id number] xwbGFpblxmMFxmczIwXHFs XHBsYWluXGYwXGZzMjBccG peqI0rBaZxCrCrSJIAGwCs XHBsYWluXGYxXGZzMjAgUm NnAOo3BBIrcF1gLy7zaKZj rR6lmNKnXKlsKYF7vCScKE YmNVWpVNXaXR62L5MvvwAh AStbUSPmRCYjbY9jFQ88qU EusdQwxzFnbGmktD1pZgTb WgNbFWXuIhnhm1QpfEAhKg dksHD2ZuxhVMLiYAamKXXh EEBxGqPpn8f3qPA2gSYrSM JjhZUap59viSFfAADsogvn dGlvblxwbGFpblxmMFxmcz DqSFHcK7HumBKwUoGth9x8 hGUxrAJps85hNYradTPlfk xmMVxmczIwIGlycmVndWxh clxwbGFpblxmMFxmczIwIC D7JZ8haZiaejFzlMJsVEHn MaAoaTIzd2PlRWHltgLsTJ Ezl90vhBY0cVGpbTKwoQWx e9OzsG1tRRApKHM1ZRNlMj Y7TQQpXdOslC9oGWrulLCc blxmMVxmczIwIFRoZSBzcG CkhZ4jejUayoDbzEDxlXV7 FLHcvX1hnY43bhCpn2nrt4 dpbmcgZmlsdHJhdGlvbiBp wqWzHIPbGRC6MXqsuWCfos fgIZdatuIgRLECRB6aAwIo cGxccGFyfQ== MICROSCOPIC DESCRIPTION v9zmrHGeRYMxmNReLcRqKP (test code = 3371) QuTGUng5cgHROecALzPgCd MzNcZnRuYmpcdWMxXGRlZm Svm4uqb750iYDil5wkUBKo WiF1tQHbCEElcKVnH900UG NeXFeka3eiz4NrFGOjbGDx e9V8YIGTpehvgEp2mLohH0 1xp3V6PzcqE9qdJPLfHCbi UILkMOjxiLZyTPN4QIPsUL L8YQvbrfSjzeH8YWmotHMe DfF6TEo6c0qgxQduICLsWP F1d2odDUsnblDuPA1qko1s cUz1t3npdcJdJBSiPKIvsO DAPGFlZ4DscUjlDg1cdRn5 vOzrGhgiSPT0Lma4ZV0cdg 77dvz1xTysQYFomautFjM4 RLsdJCLctttlDMv3IZczHS JnbDcyMFxtYXJncjcyMFxt YXJndDcyMFxtYXJnYjcyMF hvUHTtAQO3ABtny545YPB4 BRfkh8pub5nlqKApSqr8PY TdMuQlMipaOVbub5Swm2zr SKKjkj6iAOQ7gCSioEmyv5 O0jYAwWECukHJyacGzMRUx nj34cNHatMOkcIZvth1ibs DdwDOxzMTwPVV3eKYytdDv EVYuqTFiPPEaUW5gjOTvKA ZkmY2pxzrvXHXoQiGyanif BBPqqFefidEoDj6uaLnoNO F7GQihC1ajuP4vCwA0DNll V2romL5lLGt8NXotgDE3QF EezT4tKH3jpdcfv6dbIeWj SP7xntmze0kvPiFtIJ7egv z4x7cjYfOgQV7ezvblw4qq NzIwXGhlYWRlcnkwXGZvb3 KhmsukMTKmc9IrE6JvcGmb C03nrIbzA91oKAVtmGundE 6qrFlbeV9kKmWaUhOwSCxf bFxwbGFpblxmMFxmczIwXH BsYWluXGYxXGZzMjAgUGVy Me4ncMElXdqsOBWdnCKxrB == SPECIAL STUDIES (test b3wlfXWvUDXsq6mvUICjzZ code = 3376) FuZzEwMzNcZnRuYmpcdWMx TFdvonJxIYotj0SjR7HyOe AwMFxhbnNpXGRlZmxhbmcx VKJwEPZ9hfKkDAXsNZzrQP QfUXydKp8keYXqfBrwWeEx FJDrd0ojvcXJqpyooZt4w6 cfVCPfXcR0tUUiXSmvX1hq yqQspWZyQ8WibQRbzIr7g5 hpViBjXvV3fVDbMAzpQ1bl tnOjmDVdZVCoSAx9zQ39NN JzzG8qcHFpPRxywiTiFkN0 UXerSPBaKnJ7WZOhpJOfFG QzM1mpUKHaQZzgYEYdYJrv qBWdWCH7yMvqp5W2uWNabD BccPczZaKrEnUjUnVQa7Tv CXw6cTqsF4KuJIGeEwN9hM QgUGFyYWdyYXBoIEZvbnQ7 cEtzueLge38awJAwTUNrQQ OrAmEuuSphXPIxARYWa2Uv mYsfRFP1xEe6vXjqVobwBR M8Mmj7NK9bch79lte9qKxf NTHcmnrdFyR9QGdtSNRamj wqZRq0OPlxVKOqhYA2FMYx jQOwR9DgTHXnIZ2avwx9NQ J6GSvwFVNtVsD5MGIhyAYc FIZiuJkqLJdio013EJC3Gl EhBX6kQ8Trb7Q9lL6beKQu CATofJUdXxSuEHPtzi8ynR XoOXvqn2SwPAP8wlA6zMHa nHPxONOjHP72Trrxj3VgEq nvz8EuP78phJU2PBasg0ln ZB0cMjR9pmWgVXyto6pjoX 4nAyD2MOgsAO1zMV0xCKZk yM3ybjqoZPMaZnHjlauvSD GwnBnbjtQjVh2ynPidOHZ7 WTeeA5hqfR8oRsG6XHtsB9 iirE8uWRw0FUwuxXL2QWUi uI6zUY6bbyoqk4hrGEdxXL xbQCRfvwT3tpH4RDFbeBUy C1ZgdK3aTQUfBS9aamacs3 qfHPL2ABwjIWUzTDV5FcEe QBYzy0Yzixs7BkEgx0CqrX ZfBKqvB78yq180XJFhpvRt S2zzgVOigmjmlEBqfnplDV wegtR9ZXKjYJAjYLraSLPs XGZzMjJcbGFuZzEwMzNcaG ljaFxmMVxkYmNoXGYxXGxv M0ujFhCaO6VgTENzUrReLZ dfDHfawLZmsAYcgIH5rT5d TF8iTACzeTWsH7PbXAZoov LntVKhNRD4yZAgxOKgTM4n PNvrhWNox1ctj3VfI2odtI kubII7NX0vPEUrEYSoCCii g9VxjM7iErohbYUkvebmUI xmczIyXGxhbmcxMDMzXGhp Y0unLaVoGAHovVcmDQspr0 NoXGYxXGNmMlxmczIyXGx0 cmNoXHBhclxwYXJccGxhaW 8tLcPjHaWaLplxLA8yELZu J0rbqXGwGBHjYJKaS9uuOo KddG4mcBpjYWluBfThEpIv GyDCg925ks5vRZVujMMgtv NVgVOigA8qDBpbQYjrJLon lJUvNUucn4gzQSAfg8n3eJ KmIILdbqFmw8fvSWktuuGg YBYadUGtgBQkPVUow70lIL mrpZotzXcoHAFml8SntNzm v1RaFpYjIJgbn6JsL47xnN JvbCBzbGlkZXMgcnVuIGFs h04df0voNTJsGvJ2qHNjxI B9mSFwzTTcb8FhkXyaIOCr e4xeOUAayb3vqtpvpLVya7 EydE9zjvpmYHvbeSRzpjJi YTNak7a4mPJzQFWoIBSwOG etmEp8WHBnl687sk1aqzH7 wUOaQBL1HXmfZZGdGKYvyu UgZXZhbHVhdGVkXHBsYWlu XGYxXGZzMjJcbGFuZzEwMz NcaGljaFxmMVxkYmNoXGYx WQrpK7mhRdGgK1ZgWZBlKk ZunOZgA0sbiAZxANOvZCdj XGYxXGZzMjJcbGFuZzEwMz NcaGljaFxmMVxkYmNoXGYx OLauL1fjNhClF5XrLCFpNg IgIFxwbGFpblxmMVxmczIy SLsbeursJIGoDOajP7yzSf NzHQIuaXgbNMamw3JuWCYn OYDkAsbrqvAiREt7weTxWV BhclxwbGFpblxmMVxmczIy GXbtkphdHPGuXFzyA2jbFn OfFHPvvSduEOdsi3HnOKVg XGNmMlxmczIyIEltbXVub2 nmz6FmZ6xjuOzwkGF8TPUy Z2hzkREkxLT5VJU7nV4nPT lxlsAqSAGbt0BzHAZhYVHv AaK7oV6sMIP9MqPFmBmhIQ BsYWluXGYxXGZzMjJcbGFu ZzEwMzNcaGljaFxmMVxkYm YgZQSkDMxqI8yiUgKaT6Mi WIMdDxLluEwdQDezMDk7Mh xwbGFpblxmMVxmczIyXGxh rqatZZWeNQfmV8ogOrXjVI LacCzgREbzv4PeEPCzKQVg MlxmczIyIHMgTWVkaWNhbC UKLG27QAVbZWEvuQenvF1c aEIEDKPrffP3g2M9UXlaCJ FwSWk0BFmozqZtCZWxaQ2r QPLcQP4pTYw1krApOVIzh1 RqYO9zKDRauIPjUCL1FRHg o4NiH4Jvu3OiWDWpYTPkdf 0juzSfJnRYyNTgGAHicp98 OIOuQS5aV8ksKUYuEWMpdz XmdWXsj2MaGQLloQQ6cHTb NM6NGrBYs44tYEWhPVZBrm OaQUJvqRmxnYV4aeA1pI3a LiBUaGUgRkRBIGhhcyBkZX Dxkg7oqbJsHWStKRAij8Rc jTWktZVistDdI0Xai0VlKE Xkbc48RCvsyNRyil81KL9i F0Aif3CcbQ1vCHanGEXiy9 EeeTSzbIPlBMZly3JbB5ly uuehQSquyKAqxY6dACGiTF m2HGQhq2KaPHMxi3RtOzRq whQjLDExJDXmTAWibA38OC B5jEdpxGmhsuTzTC4tCCLz kmYpKZOkKBHmlI5hPDkybb RhPCEvspO9t5L5GKjoAUIr yfBuJeioSAT7haLvheX9jL HhE3apahpqYZqbKJGzg5Jv yV7lrEHReHXxb0YwwUEceH PDxKLtNS1tukAjUQ4rDNV7 ODggKENMSUEtODgpIGFzIH V0EKjyWkdrMHD3upCpIYDk v2PcWQuiO0hyN72pbArjrP d4lUTerJebxONodPTwNOMt qtQ7b2Z0KSHgh6PjcnutQF BsYWluXGYyXGZzMjJcbGFu ZzEwMzNcaGljaFxmMlxkYm MeGOBsJRirU6sbNiAqPhDe ZmzbHSI8hR== [facility] [id number] 09:36:00Surgical Pathology Report Case: [id number] Authorizing Provider: RenyVinnie Reny Collected: 08/26/2019 12:43 PM MD Beatrice OrderingLocation: [facility] OQMT Endoscopy Received: 08/26/2019 01:56 PM Services Pathologist: Isac Cummins MD Specimen: Biopsy, Gastric, gastric polyp A. STOMACH, POLYP, BIOPSY: - ANTRAL MUCOSA WITH POLYPOID FOVEOLAR HYPERPLASIA - NEGATIVE FOR HELICOBACTER PYLORI ORGANISMS BY WARTHIN STARRY STAIN - NEGATIVE FOR INTESTINAL METAPLASIA, DYSPLASIA, MALIGNANCY Signing Pathologist Direct Phone Line: [phone] signed by Isac Cummins MD on 08/27/2019 at 9:36 [id number]: upper endoscopy, biopsyPre and postop diagnosis: acute [...] evaluated Immunohistochemistry technical testing was performed at [facility], Pathology Laboratory where it was developed [...] to perform high complexity clinical laboratory testing.POCT-GLUCOSE [id number] 13:26:00 Test Item Value Reference Range Interpretation Comments POC-GLUCOSE METER 122 mg/dL 70-110 H : TESTED A T [facility] 6720 (MAN) (test code = TERRI JORDAN [place], 1538) [address]858: Truck Supervisor/Techni wendy ID = [id number] for Ilda Bailey POCT-GLUCOSE [id number] 11:40:00 Test Item Value Reference Range Interpretation Comments POC-GLUCOSE METER 137 mg/dL 70-110 H : TESTED A T [facility] 6720 (MAN) (test code = TERRI Hirsch [facility], 1538) 87507: Truck Supervisor/Techni wendy ID = [id number] for KATIE CANTU COLON SEGMENT RESEC.NOT [id number] 19:21:00 RUN DATE: 11/14/18 [facility] PAGE 1 RUN TIME: 810 Specimen Inquiry RUN USER: INTERFACE PATIENT: DAISY HAMMER LOC: [facility] #: [id number] AGE/SX: 58/F ROOM: [facility] RE11/11/18REG DR: Betito Collazo MD : 56 BED: A DIS: 11/13/18 STATUS: DIS Sharla TLOC: SPEC #: [id number] RECD: 11/11/18 STATUS: BRITTNY JIANG #: [id number] CRISTINO: 11/11/18- SUBM DR: Betito Collazo MD ENTERED: 11/11/18 SP TYPE: COLONR NIDIA DR: ORDERED: LEVEL V SURGICA CODES: [id number] - COLON, NOS PROCEDURES: LEVEL V SURGICA (Incomplete) TISSUES: COLON, NOS - RECTOSIGMOID DIVERTICULITIS CLINICAL HISTORY 58 year old, diverticulitis (wpd) FINAL DIAGNOSIS Designated "rectosigmoid diverticulitis", segmental resection: - diverticular disease with peridiverticular fibrosis - intestinal rings - unremarkable CPT code(s): 90137 pkg/wpd 11/13/18 GROSS DESCRIPTION ANATOMIC SOURCE OFTISSUE [...] and contains unremarkable mucosa and surrounding tissue. Polls Or Surveys Interviewer sections are submitted in A2. The largest [...] Specimen Inquiry RUN USER: INTERFACE SPEC #: [id number] PATIENT: DAISY HAMMER #[id number] (Continued) GROSS DESCRIPTION (Continued) 1.0 cm and containing green-brown fecal material. No discrete perforationor discoloration in those areas are noted. Polls Or Surveys Interviewer sections of the intestine with the diverticula are submitted in A3 - A8. Examination of attached adipose tissue reveals no discrete lymph nodes. Polls Or Surveys Interviewer sections are submitted in A9 - A16. hz/wpd 11/11/18 @ 5057 MICROSCOPIC DESCRIPTION The specimen consists of a segment of rectosigmoid colon containing numerous diverticula which extend through the muscularis into the rectosigmoid adipose tissue. Foci of fibrosis are present adjacent to the diverticula. No granulomas, dysplasia or neoplasia are identified. The intestinal rings are unremarkable. abram/domonique 11/13/18 Signed Deena Storm 11/13/181920 ENDOF REPORT [id number] 07:10:00 Test Item Value Reference Range Interpretation Comments GLUBED (test code = GLUBED) 180 mg/dL 65-110 H COMPREHENSIVE METABOLIC [id number] 05:48:00 Test Item Value Reference Range Interpretation [...] 106 units/L 46-116 N code = ALKP) [id number] 05:48:00 Test Item Value Reference Range Interpretation Comments MAGNESIUM (test code = MAG) 1.8 mg/dL 1.8-2.4 N CBC W/AUTO [id number] 04:49:00 Test Item Value Reference Range Interpretation [...] REQUIRED (test NORMAL NORMAL code = PLTMR) [id number] 21:57:00 Test Item Value Reference Range Interpretation Comments GLUBED (test code = GLUBED) 278 mg/dL 65-110 H [id number] 17:26:00 Test Item Value Reference Range Interpretation Comments GLUBED (test code = 292 mg/dL 65-110 H Hypoglyc emic Protoco GLUBED) [id number] 12:11:00 Test Item Value Reference Range Interpretation Comments GLUBED (test code = GLUBED) 131 mg/dL 65-110 H [id number] 07:23:00 Test Item Value Reference Range Interpretation Comments GLUBED (test code = GLUBED) 110 mg/dL 65-110 N CHEMISTRY 7 [id number] 05:23:00 Test Item Value Reference Range Interpretation [...] code = CA) 7.8 mg/dL 8.4-10.2 L [id number] 05:23:00 Test Item Value Reference Range Interpretation Comments MAGNESIUM (test code = MAG) 1.8 mg/dL 1.8-2.4 N CBC W/AUTO [id number] 05:19:00 Test Item Value Reference Range Interpretation [...] REQUIRED (test NORMAL NORMAL code = PLTMR) [id number] 22:07:00 Test Item Value Reference Range Interpretation Comments GLUBED (test code = GLUBED) 171 mg/dL 65-110 H [id number] 17:41:00 Test Item Value Reference Range Interpretation Comments GLUBED (test code = GLUBED) 157 mg/dL 65-110 H [id number] 13:26:00 Test Item Value Reference Range Interpretation Comments GLUBED (test code = GLUBED) 154 mg/dL 65-110 H [id number] 06:54:00 Test Item Value Reference Range Interpretation Comments GLUBED (test code = GLUBED) 143 mg/dL 65-110 H CHEMISTRY 7 [id number] 13:07:00 Test Item Value Reference Range Interpretation [...] = CA) 8.5 mg/dL 8.4-10.2 N HGB [id number] 12:51:00 Test Item Value Reference Range Interpretation Comments HEMOGLOBIN (test code = HGB) 13.6 g/dL 10.7-13.9 N HEMATOCRIT (test code = HCT) 40.3 % 32.1-42.1 N
[2020-05-06 18:35] LABS: Absolute Lymphocytes (CBC) 2.8 K/uL (0.7-4.9); Basophils % 0.8 % (0-1.3); Hematocrit 43.7 % (36.0-45.0); Lymphocytes % 27.3 % (15.3-44.8); MPV 8.3 fL (7.6-11.3)
[2020-05-06] MEDS ORDERED: ONDANSETRON 4 MG/2 ML VIAL ONE (18:40)
[2020-05-06] MEDS ORDERED: MORPHINE 4 MG/ML SYR ONE (18:40)
[2020-05-06 18:58] LABS: Albumin 3.6 g/dL (3.4-5.0); Bilirubin Direct 0.1 mg/dL (0-0.2); Bilirubin Total 0.4 mg/dL (0.2-1.0); Potassium 3.5 mmol/L (3.5-5.1); Protein, Total 8.3 g/dL (6.4-8.2)
--- NOTE | 2020-05-06 19:17 | RAD REPORT ---
EXAM DESCRIPTION: CTAbdomen Pelvis W Contrast - 05/06/2020 7:08 pm CLINICAL HISTORY: Abdominal pain. ABD PAIN COMPARISON: Abdomen Pelvis W Contrast dated 10/18/2019; Abdomen Pelvis W Contrast dated 05/21/2019 ; Abdomen Pelvis W Contrast dated 04/28/2019 TECHNIQUE: Biphasic CT imaging of the abdomen and pelvis was performed with 100 ml non-ionic IV cont rast. All CT scans are performed using dose optimization technique as appropriate and may include automated exposure control or mA/KV adjustment according to patient size. FINDINGS: The lung bases are clear. The liver demonstrates diffuse fatty infiltration. Cholecystectomy clips. The spleen, pancreas, adren al glands and kidneys are within normal limits. No bowel obstruction, free air, free fluid or abscess. Small fat containing umbilical hernia. The mihaela endix is normal. Prominent sigmoid diverticulosis coli without diverticulitis. No evidence of signifi cant lymphadenopathy. No suspicious bony findings. IMPRESSION: No acute intra-abdominal or pelvic finding. Diffuse fatty liver. Sigmoid diverticulosis.
--- NOTE | 2020-05-06 19:28 | EDPHYS ---
Physician Documentation [facility] Name: Robyn Carrion Age: 59 yrs Sex: Female : 1960 Arrival Date: 05/06/2020 Time: 13:30 Bed 27 Private MD: Berry Suero F ED Physician Eric Umana HPI: 05/06 18:04 This 59 yrs old Female presents to ER via Ambulatory with complaints of Rt jmm Side Pain. 18:04 The patient presents with abdominal pain. Onset: The symptoms/episode began/occurred jmm gradually, 1 week(s) ago. The symptoms radiate to right back. Associated signs and symptoms: Pertinent negatives: nausea and vomiting, diarrhea. The symptoms are described as achy, sharp. Modifying factors: The symptoms are alleviated by nothing, the symptoms are aggravated by nothing. This is a 59 year old female with a history of DM that presents to the ED with complaints of right sided abdominal pain beginning approx 1 week ago. Patient states she had a pancreatic stent placed this past november and since had not had any flare ups of pancreatitis. Denies fever. . Historical: - Allergies: 14:04 HYDROCODONE; ca1 - PMHx: 14:04 fernando esophageal disease; cricopharyngeal spasm; Diabetes - NIDDM; High Cholesterol; ca1 Hyperlipidemia; Hernia; 14:04 Diabetes - IDDM; ca1 - PSHx: 14:04 stent in pancresous; ERCP; Hernia repair; Colon Resection; Cholecystectomy; ca1 Hysterectomy; - Immunization history:: Pneumococcal vaccine is up to date, Flu vaccine is not up to date. - Social history:: Smoking status: Patient/guardian denies using tobacco, the patient reports quitting approximately 7 years ago. ROS: 18:04 Constitutional: Negative for fever, chills, and weight loss, Cardiovascular: Negative jmm for chest pain, palpitations, and edema, Respiratory: Negative for shortness of breath, cough, wheezing, and pleuritic chest pain. 18:04 Abdomen/GI: Positive for abdominal pain. 18:04 All other systems are negative. Exam: 18:04 Constitutional: This is a well developed, well nourished patient who is awake, alert, jmm and in no acute distress. Head/Face: atraumatic. Eyes: EOMI, no conjunctival erythema appreciated ENT: Moist Mucus Membranes Neck: Trachea midline, Supple Chest/axilla: Normal chest wall appearance and motion. Cardiovascular: Regular rate and rhythm. No edema appreciated Respiratory: Normal respirations, no respiratory distress appreciated 18:04 Back: Normal ROM Skin: General appearance color normal MS/ Extremity: Moves all extremities, no obvious deformities appreciated, no edema noted to the lower extremities Neuro: Awake and alert, normal gait Psych: Behavior is normal, Mood is normal, Patient is cooperative and pleasant 18:04 Abdomen/GI: Inspection: abdomen appears normal, Bowel sounds: normal, Palpation: soft, mild abdominal tenderness, in the right upper quadrant. Vital Signs: 13:58 BP 159 / 88; Pulse 81; Resp 16 S; Temp 97.3(TE); Pulse Ox 100% on R/A; Weight 69.85 kg ca1 (R); Height 5 ft. 4 in. (162.56 cm) (R); Pain 7/10; 18:30 BP 149 / 74; Pulse 73; Resp 16; Pulse Ox 96% ; rb3 13:58 Body Mass Index 26.43 (69.85 kg, 162.56 cm) ca1 MDM: 17:[address] [facility] 19:26 Data reviewed: vital signs, nurses notes. Counseling: I had a detailed discussion with sb the patient and/or guardian regarding: the historical points, exam findings, and any diagnostic results supporting the discharge/admit diagnosis, lab results, radiology results, the need for outpatient follow up. ED course: Patient is alert and non toxic in appearance in the ED. No signs of resp distress. Patient advised to follow up with pcp and otherwise given strict return precautions. Patient understood and agrees with the plan of care. . 05/06 17:48 Order name: Basic Metabolic Panel [facility] 05/06 17:48 Order name: CBC with Diff [facility] 05/06 17:48 Order name: Hepatic Function [facility] 05/06 17:48 Order name: Lipase [facility] 05/06 18:36 Order name: CBC with Automated Diff; Complete Time: 19:24 [facility] 05/06 18:58 Order name: Basic Metabolic Panel; Complete Time: 19:24 [facility] 05/06 17:48 Order name: IV Saline Lock; Complete Time: 18:32 [facility] 05/06 17:48 Order name: Labs collected and sent; Complete Time: 18:32 [facility] 05/06 17:48 Order name: CT Abd/Pelvis - IV Contrast Only [facility] 05/06 18:58 Order name: Liver (Hepatic) Function; Complete Time: 19:24 [facility] 05/06 18:58 Order name: Lipase; Complete Time: 19:24 [facility] 05/06 19:18 Order name: CT; Complete Time: 19:24 EDMS Administered Medications: 18:32 Drug: morphine 4 mg Route: IVP; Site: right antecubital; rb3 18:32 Drug: Zofran (Ondansetron) 4 mg Route: IVP; Site: right antecubital; rb3 Disposition: 05/07 06:57 Co-signature as Attending Physician, Eric Umana MD I agree with the assessment and kdr plan of care. Disposition: 05/06/20 19:27 Discharged to Home. Impression: Generalized abdominal pain. - Condition is Stable. - Discharge Instructions: Abdominal Pain, Adult. - Medication Reconciliation Form, Thank You Letter, Antibiotic Education, Prescription Opioid Use form. - Follow up: Berry Suero MD; When: 2 - 3 days; Reason: Recheck today's complaints, Continuance of care, Re-evaluation by your physician. Signatures: Dispatcher [employer] [facility] Eric Umana MD MD kdr Mickail, Joel, PA PA [facility] Mariella Bower, HAIDER MALONEY iw Kalpana Stewart RN RN ca1 Barber, Rebecca, RN RN rb3 Corrections: (The following items were deleted from the chart) 05/06 20:05 19:27 05/06/2020 19:27 Discharged to Home. Impression: Generalized abdominal pain. iw Condition is Stable. Forms are Medication Reconciliation Form, Thank You Letter, Antibiotic Education, Prescription Opioid Use. Follow up: Berry Suero; When: 2 - 3 days; Reason: Recheck today's complaints, Continuance of care, Re-evaluation by your physician. [facility]
--- NOTE | 2020-05-06 19:28 | ER ---
Nurse's Notes [facility] Name: Robyn Carrion Age: 59 yrs Sex: Female : 1960 Arrival Date: 05/06/2020 Time: 13:30 Bed 27 Private MD: Berry Suero F Diagnosis: Generalized abdominal pain Presentation: 05/06 13:58 Chief complaint: Patient states: pain on my R side x 2 weeks, sharp and is getting ca1 unbearable and more persistent, starts on the front and goes to the back. I have stents in my Pancreas in November. Reports nausea and vomiting since yesterday evening. I am already short of breath but it is more now. Coronavirus screen: Client denies travel out of the [place] in the last 14 days. nausea, vomiting. Client presents with at least one sign or symptom that may indicate coronavirus-19. Standard/surgical mask placed on the client. Provider contacted for isolation considerations. Ebola Screen: Patient negative for fever greater than or equal to 101.5 degrees Fahrenheit, and additional compatible Ebola Virus Disease symptoms Patient denies exposure to infectious person. Patient denies travel to an Ebola-affected area in the 21 days before illness onset. No symptoms or risks identified at this time. Initial Sepsis Screen: Does the patient meet any 2 criteria? No. Patient's initial sepsis screen is negative. Does the patient have a suspected source of infection? No. Patient's initial sepsis screen is negative. Risk Assessment: Do you want to hurt yourself or someone else? Patient reports no desire to harm self or others. Onset of symptoms was May 06, 2020. 13:58 Method Of Arrival: Ambulatory ca1 13:58 Acuity: DARA 3 ca1 Historical: - Allergies: 14:04 HYDROCODONE; ca1 - PMHx: 14:04 fernando esophageal disease; cricopharyngeal spasm; Diabetes - NIDDM; High Cholesterol; ca1 Hyperlipidemia; Hernia; 14:04 Diabetes - IDDM; ca1 - PSHx: 14:04 stent in pancresous; ERCP; Hernia repair; Colon Resection; Cholecystectomy; ca1 Hysterectomy; - Immunization history:: Pneumococcal vaccine is up to date, Flu vaccine is not up to date. - Social history:: Smoking status: Patient/guardian denies using tobacco, the patient reports quitting approximately 7 years ago. Screenin:35 Abuse screen: Denies threats or abuse. Nutritional screening: No deficits noted. rb3 Tuberculosis screening: No symptoms or risk factors identified. Fall Risk None identified. Assessment: 17:35 General: Appears in no apparent distress. comfortable, Behavior is calm, cooperative, rb3 Denies fever. Pain: Complains of pain in right upper quadrant Pain radiates to back Pain currently is 6 out of 10 on a pain scale. Quality of pain is described as sharp, Pain began x 2 weeks. Neuro: Level of Consciousness is awake, alert, obeys commands, Oriented to person, place, time, situation. Cardiovascular: Patient's skin is warm and dry. Respiratory: Airway is patent Respiratory effort is even, unlabored, Respiratory pattern is regular, symmetrical. GI: Reports nausea, vomiting. : No signs and/or symptoms were reported regarding the genitourinary system. 18:30 Reassessment: Patient appears in no apparent distress at this time. No changes from rb3 previously documented assessment. Vital Signs: 13:58 BP 159 / 88; Pulse 81; Resp 16 S; Temp 97.3(TE); Pulse Ox 100% on R/A; Weight 69.85 kg ca1 (R); Height 5 ft. 4 in. (162.56 cm) (R); Pain 7/10; 18:30 BP 149 / 74; Pulse 73; Resp 16; Pulse Ox 96% ; rb3 13:58 Body Mass Index 26.43 (69.85 kg, 162.56 cm) ca1 ED Course: 13:30 Patient arrived in ED. ag5 13:31 Berry Suero MD is Private Physician. ag5 14:02 Triage completed. ca1 14:04 Arm band placed on right wrist. ca1 17:35 Patient has correct armband on for positive identification. Bed in low position. Call rb3 light in reach. Side rails up X 1. Pulse ox on. NIBP on. 17:38 Fredy Bueno PA is PHCP. [facility] 17:38 Eric Umana MD is Attending Physician. [facility] 18:10 Initial lab(s) drawn, by me, sent to lab. Inserted saline lock: 22 gauge in right kj1 forearm, using aseptic technique. Blood collected. 18:37 Leigh Terrell, HAIDER is Primary Nurse. rb3 19:27 Berry Suero MD is Referral Physician. [facility] 20:04 No provider procedures requiring assistance completed. IV discontinued, intact, iw bleeding controlled, No redness/swelling at site. Pressure dressing applied. Administered Medications: 18:32 Drug: morphine 4 mg Route: IVP; Site: right antecubital; rb3 18:32 Drug: Zofran (Ondansetron) 4 mg Route: IVP; Site: right antecubital; rb3 Outcome: 19:27 Discharge ordered by . sb 20:04 Discharged to home ambulatory, with family. iw 20:04 Condition: good 20:04 Discharge instructions given to patient, Instructed on discharge instructions, follow up and referral plans. Demonstrated understanding of instructions, follow-up care. 20:05 Patient left the ED. iw Signatures: Fredy Bueno PA PA jmm Williams, Irene, RN RN iw Kalpana Stewart RN RN Abdirizak Rowan ag5 Simona Carrion kj1 Leigh Terrell RN RN rb3
[2020-05-06 22:47] VITALS: TEMP 97.3
[2020-05-06 22:48] VITALS: BP 149/74; O2SAT 96
== END 2020-05-06 20:05 | disposition home or self-care (01) ==
LOC: ER 13:29
DX: R10.84 Generalized abdominal pain (principal); Z87.891 Personal history of nicotine dependence; E11.9 Type 2 diabetes mellitus without complications; K22.70 Barrett's esophagus without dysplasia; E78.00 Pure hypercholesterolemia, unspecified; E78.5 Hyperlipidemia, unspecified; Z79.4 Long term (current) use of insulin
CPT/HCPCS: 85025; 80048; 36415; 80076; 83690; 74177; 96375; 96374; 99284; Q9967; J2405

== ENCOUNTER 2020-06-10 14:28 | Emergency (ER) | payer OTHER ==
--- OUTSIDE RECORDS SUMMARY | 2020-06-10 14:31 | XMS REPORT | Continuity of Care Document ---
:1960 Author Organization [facility] t Address [address] [place] [address] Dr. Brennan [address] [place] [id number] Care Team Providers Name Role Phone Pio [...] Expiration Date Sour ce Number MEDICAREMEDICARE A [id number] 2001 ROSETTA Crump KygfkovhCH900/04/2001-P 00:00:00 - Medical resentMedicare Center MEDICAIDMEDICAID OF [id number] 2017 ROSETTA Crump [id number] 00:00:00 - Medical -PresentMedicaid Center Problems Condition Condition Condition Status Onset Resolution Last Treating Co mments Source Name Details Category Date Date Treatment Clinician Date Biliary Biliary Disease Active [facility] Hyperlipid Hyperlipid Problem Active [facility] [place] [facility] Hypertensi Hypertensi Problem Active [facility] [place] [facility] Diabetes Diabetes Problem Active [facility] [place] [facility] Follow up Follow up Problem Active [facility] [place] [facility] Allergies, Adverse Reactions, Alerts Allergy Allergy Status Severity Reaction(s) Onset Inactive Treating Comm ents Source Name Type Date Date Clinician Codeine Drug Active Nausea And [facility] Allergy Vomiting [facility]16 [facility] - [facility]: Medical 00 Refugio Hydrocod Drug Active Nausea And As per [facility] one-Acet Allergy Vomiting, 08-14 patient, Romina blank - aminophe Other (See 00:00: " it Medi sarah n Comments) 00 wears on Cente r my stomach" hydrocod DA Active [facility] [place] Hydrocod Propensi Active [place] one ty to 7 Methodi adverse 00:00: st reaction 00 s to drug Family History Family Member Diagnosis Comments Start Date Stop Date Source Natural father Diabetes [place] [facility] Natural father Hypertension [place] [facility] Natural mother Diabetes [place] [facility] Natural mother Heart disease [place] [facility] Natural mother Hypertension [place] [facility] Unknown Family Family history of Other Uni versity of Member diabetes mellitus [place] [facility] Unknown Family Family history of Other Uni versity of Member hypertension [place] [facility] Unknown Family Family history of Other Uni versity of Member Heart problem [place] [facility] Social History Social Habit Start Date Stop Date Quantity Comments Source History of tobacco Current smoker [facility] use [facility] History SDOH [facility] - Alcohol Std Drinks Medica Center History SDOH [facility] - Alcohol Binge Medical [place] ter Sex Assigned At [facility] Cigarettes smoked 2019-11-18 2019-11-[address] [facility] - current (pack per 00:00:00 00:00:00 Medical Center day) - Reported Cigarette 2019-11-18 2019-11-[address] [facility] - pack-years 00:00:00 00:00:00 [facility] Tobacco use and 2019-11-18 2019-11-[address] Romina kes - exposure 00:00:00 00:00:00 [facility] Alcohol intake 2019-11-18 2019-11-18 [facility]er [facility] 00:[facility] 00:[facility]:00 of alcohol Medical Center (finding) Alcohol Comment 2019-11-17 2019-11-[address] Romina kes - 00:00:00 00:00:00 [facility] History SDOH 2019-08-15 2019-08-[address] [facility] - Alcohol Frequency 00:00:00 00:00:00 [facility] Tobacco Comment 2019-08-15 2019-08-15 quit [address] [facility] - 00[facility]00:00 00:00:00 ago [facility] Smoking Status Start Date Stop Date Source Former smoker 2019-11-18 00:00:00 2019-11-18 00:00:[address] [facility] [facility] Never smoker [facility] Medications Ordered Filled Start Stop Current Ordering [...] daily as needed . lipase/prot 2020-0 Yes [id number] Take [facility] ease/amylas 8-12 [id number] 36,000 [facility] - e (CREON 13:03: 3D [...] Systolic blood 2019-11-19 11:32:00 126 mm[Hg] [facility] Diastolic blood 2019-11-19 11:32:00 60 mm[Hg] [facility] Heart rate 2019-11-19 11:32:00 57 /min [facility] Body temperature 2019-11-19 11:32:00 35.72 Alysia [facility] Respiratory rate 2019-11-19 11:32:00 20 /min [facility] Oxygen saturation in 2019-11-19 11:32:00 98 /min [facility] - Arterial blood by Medical Ce nter Pulse oximetry Body height 2019-11-18 06:58:00 157.5 cm [facility] Body weight 2019-11-18 06:58:00 69.355 kg [facility] BMI 2019-11-18 06:58:00 27.97 kg/m2 [facility] Height 2018-05-24 10:25:00 62 [in_us] [facility] Weight 2018-05-24 10:25:00 154.9 [lb_av] [facility] [place] [facility] Body Mass Index 2018-05-24 10:25:00 28.33 kg/m2 [facility] Cal[facility] [place] [facility] BP Systolic 2018-04-26 10:21:00 127 mm[Hg] [facility] [place] [facility] BP Diastolic 2018-04-26 10:21:00 76 mm[Hg] [facility] [place] [facility] Height 2018-04-26 10:21:00 62 [in_us] [facility] [place] [facility] Weight 2018-04-26 10:21:00 155.6 [lb_av] [facility] [place] [facility] Body Mass Index 2018-04-26 10:21:00 28.46 kg/m2 Unive rsity of Calculated [place] [facility] Temperature 2018-04-26 10:21:00 97 [degF] [facility] [place] [facility] Heart Rate 2018-04-26 10:21:00 73 /min [facility] [place] [facility] Procedures Procedure Date / Time Performed Performing Clinician Sourc e POCT-GLUCOSE METER 2019-11-19 07:32:00 Jam Davalos [facility] COMPREHENSIVE METABOLIC 2019-11-19 06:19:00 Padmini Armando [facility] CBC W/PLT COUNT & AUTO 2019-11-19 05:32:00 Padmini Armando [facility] HEMOGLOBIN A1C 2019-11-19 05:32:00 [facility] POCT-GLUCOSE METER 2019-11-18 21:05:00 Thang Oden [facility] REPORT OF PROCEDURE - 2019-11-18 11:51:31 Vinnie Oglesby [facility] - ENDOSCOPY [facility] [place] ERCP 2019-11-18 11:08:00 [facility] ERCP,PAPILLOTOMY 2019-11-18 10:18:00 Vinnie Oglesby [facility] PROCEDURE W/ C-ARM 2019-11-18 10:18:00 Vinnie Oglesby [facility] ERCP,BALLOON SWEEPING 2019-11-18 10:18:00 [facility] PO[facility]SE METER 2019-11-18 07:34:00 Reny [facility] REPORT OF PROCEDURE - 2019-08-26 13:44:33 [facility] POCT-GLUCOSE METER 2019-08-26 13:14:00 Calebtinamike [facility] TISSUE EXAM 2019-08-26 12:43:00 Ottin[facility]ike [facility] UPPER ENDOSCOPY,BIOPSY 2019-08-26 12:18:00 Calebtinamike [facility] S t [facility] UPPER 2019-08-26 12:18:00 Calebtinamike [facility] - ENDOSCOPY,SUBMUCOSAL [facility] ter INJECTION UPPER 2019-08-26 12:18:00 Calebtinamike [facility] - ENDOSCOPY,ULTRASOUND [facility] ter POCT-GLUCOSE METER 2019-08-26 11:28:00 tinamike [facility] Plan of Care Planned Activity Planned Date Details Comments Source Future Scheduled 2019-12-09 INFLUENZA VACCINE (#1) [facility] Test 00:00:00 [code = INFLUENZA Medical Ce nter VACCINE (#1)] Future Scheduled 2019-11-08 INFLUENZA VACCINE [place] [facility] Test 00:00:00 [code = INFLUENZA VACCINE] Future Scheduled 2008 BREAST CANCER [facility] thodist Test 00:00:00 SCREENING [code = BREAST CANCER SCREENING] Future Scheduled 2008 COLONOSCOPY SCREENING [place] [facility] Test 00:00:00 [code = COLONOSCOPY SCREENING] Future Scheduled 2008 SHINGLES VACCINES (#1) [place] [facility] Test 00:00:00 [code = SHINGLES VACCINES (#1)] Future Scheduled 2003-09-[address] [facility] - Test 00:00:00 (procedure) [code = Medical Center 07989760] Future Scheduled 2002-10-[address] [facility] - Test 00:00:00 WELLNESS (YEAR 2 or Medical Center FIRST YEAR if no IPPE) [code = MEDICARE ANNUAL WELLNESS (YEAR 2 or FIRST YEAR if no IPPE)] Future Scheduled 1979-09-07 Screening for [facility] Test 00:00:00 malignant neoplasm of cervix (procedure) [code = 423260114] Future Scheduled 1979-09-[address] [facility] - Test 00:00:00 [facility] cervix (procedure) [code = 036758542] Future Scheduled 1976 Hepatitis C screening [place] [facility] Test 00:00:00 (procedure) [code = 890330672] Future Scheduled 1974 COVID-19 VACCINE (1 of [place] [facility] Test 00:00:00 2) [code = COVID-19 VACCINE (1 of 2)] Future Scheduled 1968 DIABETES: RETINAL EYE [place] [facility] Test 00:00:00 EXAM [code = DIABETES: RETINAL EYE EXAM] Future Scheduled 1968 DIABETIC FOOT EXAM [place] [facility] Test 00:00:00 [code = DIABETIC FOOT EXAM] Future Scheduled 1968 URINE MICROALBUMIN [place] [facility] Test 00:00:00 [code = URINE MICROALBUMIN] Future Scheduled [address] [facility] - Test 00:00:00 malignant neoplasm of [facility] breast (procedure) [code = 427543026] Future Scheduled [address] [facility] - Test 00:00:00 malignant neoplasm of [facility] colon (procedure) [code = 762371507] Encounters Start End Encounter Admission Attending Care Care Encounter Source Date/Time Date/Time Type Type Clinicians Facility Department ID 2018-05-24 2018-05-24 RAFAT [place] [id number] Univers 10:30:00 10:30:00 t; WILL, Surgery nelson ANTONIO D.O. Specialty [facility] s Adrian SOLIS D.O. ans 2018-04-26 2018-04-26 RAFAT [place] [id number] Univers 10:15:00 10:15:00 t; nelson SOLIS D.O. [place] Adrian SOLIS D.O. ans 2018-04-19 2018-04-19 Karlos ANTONIO RAFAT UTP [id number] Univers 10:00:00 10:00:00 t; nelson SOLIS D.O. [place] WILL Physicjoyce Ritter.O. [facility] 2018-03-27 2018-03-27 Appointlindsey MARISELA, RAFAT UTP [id number] Univers 10:30:00 10:30:00 t; nelson SOLIS D.O. [place] WILL Physicjoyce Ritter.O. [facility] 2018-03-22 2018-03-22 [facility] MARISELA, [facility] UTP [id number] Univers 10:30:00 10:30:00 t; nelson SOLIS D.O. [place] WILL Physicjoyce Viera. [facility] 2018-03-06 2018-03-06 [facility] FREDERICK, RAFAT UTP [id number] Univers 08:30:00 08:30:00 t; CYRIL MACK M.D. i ty [facility] [place] [facility] [place] [facility] 2018-02-14 2018-02-14 [facility] SEANSATURNINO, [facility] UTP [id number] Univers 08:15:00 08:15:00 t; nelson SOLIS D.O. [place] WILL Physicjoyce CastellanoO. [facility] 2018-01-11 2018-01-11 [facility], [facility] UTP [id number] Univers 10:30:00 10:30:00 t; nelson SOLIS D.O. [place] WILL Physicjoyce CastellanoO. [facility] Results Test Description Test Time Test Comments Results Result Comments Source Hemoglobin A1c 2019-11-19 09:28:00 Test Item Value Reference Range Interpretation Comme nts Hemoglobin A1C (test code = 4548-4) 8.1 % 4.3-6.1 H Lab Interpretation (test code = 17056-7) [facility] [id number] 09:28:00 Test Item Value Reference Range Interpretation Comments HEMOGLOBIN A1C (BEAKER) (test code = 8.1 % 4.3-6.1 H 368) POC-Glucose [id number] 07:44:00 Test Item Value Reference Range Interpretation Comments POC-Glucose Meter (test 130 mg/dL 70-110 H : TE STED AT [facility] code = 1538) [address] [place], [address]: Foreign Exchange Clerk/Techni wendy ID = [id number] for KRISSY FERRER Lab Interpretation (test Abnormal code = 42830-9) [facility] [id number] 07:44:00 Test Item Value Reference Range Interpretation Comments POC-GLUCOSE METER 130 mg/dL 70-110 H : TESTED A T [facility] 6720 (BEAKER) (test code = TERRI Hirsch [facility], 1538) [address]: Foreign Exchange Clerk/Techni wendy ID = [id number] for KRISSY FINNEGAN Comprehensive metabolic [id number] 06:55:00 Test Item Value Reference Range Interpretation Comments Protein, Total (test 6.8 See_Comment [Autom ated code = 2885-2) message] The system which generated this result transmit migdalia reference range : 6.0 - 8.3 gm/dL . The reference range was not u sed to interpret th is result as normal/abnormal . Albumin (test code = 3.5 g/dL 3.5-5 46007-1) Alkaline Phosphatase 119 U/L 40-150 (test code = 6768-6) Total Bilirubin (test 0.5 mg/dL 0.2-1.2 code = 1975-2) Sodium (test code = 136 meq/L 340-407 0962-2) Potassium (test code 4.0 meq/L 3.5-5.1 = 2823-3) Chloride (test code = 105 meq/L 98-107 2075-0) CO2 (test code = 26 meq/L 22-29 8-9) BUN (test code = 17 mg/dL 7- 3094-0) Creatinine (test code 0.77 mg/dL 0.57-1.25 = 2160-0) Glucose (test code = 162 mg/dL 70-105 H 2345-7) Calcium (test code = 8.8 mg/dL 8.4-10.2 64027-5) AST (test code = 24 U/L 5-34 1920-8) ALT (test code = 27 U/L 6-55 1742-6) EGFR (test code = 76 mL/min/1.73 [place] [address]-1) NOT ACCURATE CREATININE CLEARANCE IN PREDICTING GLOMERULAR FILTRATION RATE . ESTIMATED GFR I S NOT APPLICABLE FOR DIALYSIS PATIEN TS. TRUDY (test code = TRUDY) Foreign Exchange Clerk ID - SUNITHA L Lab Interpretation Abnormal (test code = 35809-4) [facility] [id number] 06:55:00 Test Item Value Reference Range Interpretation [...] S NOT APPLICABLE FOR DIALYSIS PATIEN TS. Foreign Exchange Clerk ID - SUNITHA LCBC with platelet count + automated [id number] 05:55:00 Test Item Value Reference Range Interpretation Comments WBC (test code = 6690-2) 13.1 See_Comment H [A utomated message] The system Ntractive generated this result transmitted ref erence range: 3.5 - 10 .5 K/L. The refe rence range was not u sed to interpret this result as normal/abnor mal. RBC (test code = 789-8) 4.21 See_Comment [Au tomated message] The system Ntractive generated this result transmitted ref erence range: 3.93 - 5 .22 M/L. The refe rence range was not u sed to interpret this result as normal/abnor mal. MCHC (test code = 786-4) 35.1 See_Comment [A utomated message] The system Ntractive generated this result transmitted ref erence range: 32.2 - 3 5.5 GM/DL. The refe rence range was not u sed to interpret this result as normal/abnor mal. Hematocrit (test code = 37.6 % 34.1-44.9 4544-3) MCV (test code = 787-2) 89.3 fL 79.4-94.8 MCH (test code = 785-6) 31.4 pg 25.6-32.2 RDW (test code = 788-0) 12.0 % 11.7-14.4 Platelets (test code = 295 See_Comment [Aut omated message] 777-3) The system Ntractive generated this result transmitted ref erence range: 150 - 45 0 K/CU MM. The referen ce range was not u sed to interpret this result as normal/abnor mal. MPV (test code = 9.5 fL 9.4-12.3 83876-3) nRBC (test code = 413) 0 See_Comment [Aut omated message] The system Ntractive generated this result transmitted ref erence range: 0 - 0 /1 00 WBC. The refere nce range was not u sed to interpret this result as normal/abnor mal. % Neutros (test code = 78 % 429) % Lymphs (test code = 15 % 430) % Monos (test code = 6 % 431) % Eos (test code = 432) 0 % % Baso (test code = 437) 0 % # Neutros (test code = 10.27 See_Comment H [Aut omated message] 670) The system Ntractive generated this result transmitted ref erence range: 1.56 - 6 .13 K/L. The refe rence range was not u sed to interpret this result as normal/abnor mal. # Lymphs (test code = 1.95 See_Comment [Auto mated message] 414) The system Ntractive generated this result transmitted ref erence range: 1.18 - 3 .74 K/L. The refe rence range was not u sed to interpret this result as normal/abnor mal. # Monos (test code = 0.81 See_Comment H [Autom ated message] 415) The system Ntractive generated this result transmitted ref erence range: 0.24 - 0 .36 K/L. The refe rence range was not u sed to interpret this result as normal/abnor mal. # Eos (test code = 416) 0.02 See_Comment L [Au tomated message] The system Ntractive generated this result transmitted ref erence range: 0.04 - 0 .36 K/L. The refe rence range was not u sed to interpret this result as normal/abnor mal. # Baso (test code = 417) 0.01 See_Comment [A utomated message] The system Ntractive generated this result transmitted ref erence range: 0.01 - 0 .08 K/L. The refe rence range was not u sed to interpret this result as normal/abnor mal. Immature 0 % 0-1 Granulocytes-Relative (test code = 2801) Lab Interpretation (test Abnormal code = 08883-4) [facility] W/PLT COUNT & AUTO [id number] 05:55:00 Test Item Value Reference Range Interpretation [...] PERCENT (BEAKER) (test code = 2801) POCT-GLUCOSE [id number] 21:17:00 Test Item Value Reference Range Interpretation Comments POC-GLUCOSE METER 255 mg/dL 70-110 H : TESTED A T [facility] 6720 (BEAKER) (test code = [place], 1538) [address]: Foreign Exchange Clerk/Techni wendy ID = [id number] for ABHILASH MARTI [id number] 11:22:39INTRA OP IMAGINGReason for exam:->abnormal imaging Fluoroscopic unit utilized for a procedure performed in the OR. No interpretation was requested. Refer to the operative report for findings. Refer to PACS for patient radiation dose information.FL [id number] 11:22:39 Interface, External Ris In - 11/18/2019 11:22 AM CDTFluoroscopic unit utilized for a procedure performed in the OR. No interpretation was requested. Refer to the operative report for findings. Referto PACS for patient radiation dose information.[facility] [id number] 07:45:00 Test Item Value Reference Range Interpretation Comments POC-GLUCOSE METER 155 mg/dL 70-110 H : TESTED A T [facility] 6720 (BEAKER) (test code = [place], 1538) [address]: Foreign Exchange Clerk/Techni wendy ID = [id number] for ED WARDS, KATIE Tissue [id number] 09:36:00 Test Item Value Reference Range Interpretation Comments Case Report (test code Surgical Pathology = 104) Report Case: [id number] Authorizing Provider: Vinnie Oglesby Collected: 08/26/2019 12:43 PM MD Beatrice Ordering Location: [facility] Endoscopy Received: 08/26/2019 01:56 PM Services Pathologist: Isac Cummins MD Specimen: Biopsy, Gastric, gastric polyp DIAGNOSIS (test code = [id number] 3220) FuZzEwMzNcZnRuYmpcdWMx REqqioOzFJguq7BdJ8PhZf AwMFxhbnNpXGRlZmxhbmcx LBNoTSR8axHmFWReJJqzVL HmGZieDh8jgYFfiBlbIkUi THEks2aticHBfrvovIs5x8 umFGXeJtA0kHQoZEuzS4rs kcJqrVWkTSIvQMz3wN28EY QndO2lhPNuGAsirwEjXtE3 BYnoAOVpRjW9XDLtkPHbPT FfF8huGOAzHIbrHJOiYRug sHKgPAR1oUnah6G6wVSmeP GzoDumJvZhOaUhICGXe5Rk CFl0cPhqX9KcUTAaJyZ0zX QgUGFyYWdyYXBoIEZvbnQ7 qW26HGfvbsZ1mYMur8Jaw8 6mm956fC8dgMHeNCY3BPCd UUAmzEDbCXMgUWS5HKBvmM QhK5r6DyThnZFuO7G7LcVh mBPiC7H3VyQodXDnA8H7Tq HwcBCpMUFelKDuZf0axCQh oESzge7hnx18DMF3n2ImaF nxSYR3LCP4SfRlBe3yfPHr CFNwUC3dRqDneEPwEXLihk 96lGujKGbfugEjqL7rMtOv ZD0rrWjwf22xFNVoHG1aoQ 7htx5kutQhBAvdvGOwnGB2 ujzkCHM8ZNDfihOoz8Abi5 gnYaWkdjXbM6rdT9VyWSAl ZGKjNNXrCgBwkdGdn8Psm8 FpkXGiaEn0q4pyQUWsGHHq nMqlb2dzAAU2LJGlT8D5dR Ncr0szSFrgSZIxtWE2abmx IVxvPRUeqvV6abmxVPmqAK VvgHI3lyswVWbwTDUfTfJ9 fnloKGtuAJIwCYC1UOqny5 33EZX7AXqbFknvUHnmKOVc bmNvbnRccGduZGVjXHBsYW luXHBsYWluXGYwXGZzMjRc mOUbHOgkd6TmwbEcwYdoLZ GuDDj3sfAajbrvkAw1oIRk oPibZJAokKqngF0hFeDhWx ShSSrlCV5nVBZeP8enjOGl DZHzRAPsG4mvYyNdrN7asV xmMVxmczIwIEEuIFxwbGFp blxmMVxmczIwXGxhbmcxMD KzDZqpB6ccNpRhMPQgmMhc PCenr1KsMNYmGZNgJrmimu WfFWb0jfOmSGQUA72PA8ks IFxwbGFpblxmMVxmczIwXG dqvfyoAOIyABipI7syRdSq HXStrDcwBKokp4FpJASfBX RqOaGaUG9UEKLzWIaibIGr blxmMVxmczIwXGxhbmcxMD GeUFyrO7dnUcSiDDOdcUxt TEtlk1WtBGUvECEmFirflg QmGMq0rnAoVYRJZ2MDEPLo YWluXGYxXGZzMjBcbGFuZz EwMzNcaGljaFxmMVxkYmNo HNYbSXviG6mhOaRjFhOvCN BZXHBsYWluXGYxXGZzMjBc bGFuZzEwMzNcaGljaFxmMV fyJsApDQDzNHpkN5yjZeHs P1BtTKYhXfQzoSVjJ4eyKq qgLVVakYmhlS4mAkDbXuYq UNrwDV6jVUFhA3ytbYOuHN JtRCWlK8ikRgNniE1bnSmx IGixfjEtZXEgpLkhuN6nIi DeOoPbYJttPY9iYYKjJ4lj pQXgQMCfGQJsG9tiRzWpcK 9jaFxmMVxjZjJcZnMyMFxs dHJjaCAtXHBsYWluXGYxXG ZzMjBcbGFuZzEwMzNcaGlj aFxmMVxkYmNoXGYxXGxvY2 hcZjFcZnMyMCAgXHBsYWlu XGYxXGZzMjBcbGFuZzEwMz NcaGljaFxmMVxkYmNoXGYx VCpfO1wuKjQeK7OtUYGgGy SeyBJyY7kyWMXDSMCHSHDL HIYED2CgK4vXFCHlmAgydH 4tQeAuElNkGMvuPQ4sXYLu I6xmqMNbRTFtPLKzH7qlUn GerQ7zbHtwUWtjtlAhRWKY SLjPS7hTMLABDlVESJAGRD zOGHVKIPfBK0eCPUHzdnFi XHBsYWluXGYxXGZzMjBcbG FuZzEwMzNcaGljaFxmMVxk VdIzQGPmJNyzI6qbBiCwC9 PtHHDxIaHlgFDxR4wqGCku bGFpblxmMVxmczIwXGxhbm ifOZCgYHjoK6sbKcFzDFBi jIqrNNxjq5BhIFRfFZBbUg AgIFxwbGFpblxmMVxmczIw AVmeqdatXYYrGHkoY9edVh LgCIKwlAflRUjii0VvCHFk MQTwWyfhuoMiUBt6acHjRE NMCBmMQGyTPDWEX6VbRTJI JXDGQtWFBRKGUAVWEO2RXL MKSasNXudOQAJwGxgxU3YW RCaCHlWZMGFGAkujU8YAWT 1wwTUpMZZabjLrp2PbUGOs PFX7SXqiRCyydBlpnBVygh tsMIqwupA4ASPgUZcsSEAf XGZzMjBcbGFuZzEwMzNcaG ljaFxmMVxkYmNoXGYxXGxv H5gkLjIxYxTgYAVdKKFzKP luXGYxXGZzMjBcbGFuZzEw MzNcaGljaFxmMVxkYmNoXG AgEKbgD9gwKtBxA8HqEQDx PlRjeWGyG5ahQXvaoWVaff xmMVxmczIwXGxhbmcxMDMz SHprH1koRiJpINSveStdDH hcc7TlLLTrYUAbDvXbOPka bGFpblxmMVxmczIwXGxhbm emWAAxNXkxD2xrCrCbCTIo uVqlZSciw7NwUVTlPPKbMm tyoxLnNVx5jbHvAGCFPLtD GLuHASEKM5TuWP3QLCWFCB 2QQNSIBVXVZHqEC1tKPSVZ YMWILSHONESdJH1TLLlIXm DZP7jcuEoxlT6lYaDpOaLw BHorBH6oUIKxP9mrtNFuYJ NgVXTnV8kbTkGqyL6lpLrr YJrnwlVnNQCiekekLIR7g9 xydGYxXHNzdGUxODAwMFxh bnNpXGRlZmxhbmcxMDMzXG I1zbArCZAgCJpqHIFtWTpk Rm0hjQUdwMadUwAlKWUtg6 bhhgCXbahyqUf2t1asFVNy WvT9dPWfHTrwD9fpxoNezI XrXFGiEVz1eG46RWKruD1p eHWkFTdrpmZlLxC4RTykLT NfKqA2JQGbgYYwLEJeH2xj ZWQwXGdyZWVuMFxibHVlMC U1qOxob0K2aFNseRIjyLgs KpPjOzPwUlAQv9KpFEt2dZ naX3KaUCHnWrC8uEFgXWZr FSmaROUmWIWlvyP9hP63CO uvniW6bQWdr2Fts73bt744 pD5lkTSmAWK9EEIzGTZjuB OrCNWmGGM6DSNilKLcM0mb BOWkYG5modqePAcsVLkrSB VqjPV1PHPheIXkP3GnEMUp JNynSKSnmbq5OqJeCt5ndN ZpqHeqZSggg0pkg9fjbCBp Hgo5QGBbNeAuAkqnOWgoc7 Xzk1awSQPazv3hOWV2dBWl sLdcb8N9yCBfJGZxiLUsAI KuWC6wwYFqDRCmvJ6jxtni XHBnYnJkcmhlYWRccGdicm CsTz6mlIulLRN1PNpqO8si zM8mIwY4WLwuD1ekyK1sAH n8YJfpFISumMC5fhQ3LKDr fVQgK8RqcJ4oPEKoZM2boi f7x7ybMGZ1QDxlVKOhNsI1 jcF6BHZvoSWhRDInpXjfCC lmy373TSX9BuLkESIze4Lr G1YimXypT03niVhuV19yIM QobVvjyU5fhDkxvJ8uOnYa DsOtZJqobWvnGO6kSCKlC2 qlhJDaRNDbVLTnR7diLvSq bO1psIxrHSqrfdLqZHIpWp i6HBFirILdJIPbGna6YJQa AUOsE43jgbhvZBZ1dV5mf7 kit0VaLRmcLJU4DYHnp27w XQmaojB4LHrfNg1yBdYkQE X1EXcuLUS9rN== CPT Code(s) (test code f4fpcHDbGXFyoENyRvEvBF = 3357) UuLBXkm7nnTPSrnBCyHjXl MzNcZnRuYmpcdWMxXGRlZm Kcx7trc907gWOla2siVNFi PvS5lDBgWKWvkJWdQ743q2 doc1nrmfJzkPD5WYGoMPV9 HNlylaKrkvE9MFjpyUYrGs Y2DGubehZkPLklueDejcHy Niv5LKRnW190HAS2cRkgc7 atVGA2JDCaCZYlEsMbPm4c uDAeJ492QUSlHGKRJUWedB f5TDHdzcFqisKroIHGl134 X557l6fhSHApdzVqwBjCdm ped0baO987MMJyfRKmreHh TsQuZVDvaQFqcCZ3IVHjLT 1pgiehFcZuVF9qbmzqUkAx FN7brpj5RjEyNO7wzpdhFg HgGPatMIRvsispQOZhg6Fp nzzaFY4vB8Ixg3G5sI9nvC JvRKOqqJIfMyFfXXTmfr4u pSMiRSzxd3SxMGL5ptA7wR VogXMeIUShFM48Wxgli5Bm HiihVSG0IBZayiLuw4Wbt1 jgWsDdahHiQ3ucU3XpZFIo DVFjGCXhUrLyizDxu0Mhh2 VzdERxeXu3a2naCMPzISNd mTltf0voJFJ7JHJtA1N6rG Bcq1ddZZfpWOUfpJN4chtn EPorQIGmwiA4dvhoJFnzDW HtuDG3aazrBNcbPFUxWrA7 xleaJJihJESzOEJ4UCsiz8 02MHK1ORzoBgshJVlnSAJy bmNvbnRccGduZGVjXHBsYW luXHBsYWluXGYwXGZzMjRc oCvwnJqdoE8vZvPnYaIzMM jeJK7fYAHkI7erzSTeUFOo ZKLfF8kbGuRbgD2piZkpVZ mzfjWrWTz8TfO0JYMyctB2 ODMxMlxwYXJ9 CLINICAL HISTORY (test z2exxHAwEKRqgJIyBmGuLD code = 3353) FlDGAax4yxTXZiiVIqHhQc MzNcZnRuYmpcdWMxXGRlZm Mqo9kns215fKTdk1qgZVLn QtG4iFQlWOAnmCJyM143KP JgGVenm8cwl6PxNXRuzHSs l7O4DXOOuukvlHp6vYzcA2 9sh2K9IltbB4maSGEvSHjt TQVeEBxiaHMjEKG7USYwQK Z2QIkpsqFdrxQ4AMeptIWa RaV3REu9k2jpzKksRCPgNY E5f8paZNgkoxBxNX9llu9g gPs6n8vdreXdLMLiSXDmeZ CZOQFtK4TwaNjjAd5avQz5 yHniNtupMIA4Kbw5SW4sna 64emi1kHlcDZTnhfftAaT3 QZviXJOiiaxdXNj1KGfqWD JnbDcyMFxtYXJncjcyMFxt YXJndDcyMFxtYXJnYjcyMF efBTJaEVB9QZjhh158HXJ1 JZpad5eok2uflUShHiz0FK UnKhQgTfuhJUcrt4Ljn6oo DUBtii4uJPP2zRSphBvan4 I6pSSnBQSyyWDdngRnNZMg JuZ3VQxgEX6kdt80FEMdKV H4re3fnAZwyYewygCwiHDh YMkbL4VhITLbr784PHDcO7 DjLHQxq9U7wsKgMfBsBYZf zCR1qcO7DHRqFZo3nYFeui P1zsZnfTGwF2ovxG58TtDy rVBmO4VezY54IlBwwEZjZ2 GkuR32MtGdiVKaJ9RvbI81 HuVeaKFqTHLvsPRhWv2pyU VlfPJtd1TviSCsCYqdT52c a627TREkrjUpU8buiCUzdr xwbGFpblxmMFxmczIwXHFs XHBsYWluXGYwXGZzMjBccG osmU1cNhOnAsXhDFJXyu5o WNB1inX6XTJnkKXtAGVjUX 7rD29urCyaFzstzDU1FPDg yzREiyXmJQ5rURWjj1DhkE YhyYQscr9jdGC2GRYefIZk VOBbdfMfSZK5nGSpltRdpI FyfQ== SPECIMEN SOURCE (test z7ezaHYqPUBwmHUtQlOdHU code = 3377) RtUYKtm9fwMIIyyXNqTxZr MzNcZnRuYmpcdWMxXGRlZm Tee2liq285kBUog4kqVFOn IoU7bOIuIAYacFLzZ588p9 dto9jkloQdjUW2NVXxORX7 LDybxhVoeqY0EPcpzBEqLb B3JAzxjiWcQYeypyMavsBd Whe3NZDwW877YRW1bZomh6 ddZUV4QQUoIODqQuLkHp9p zPHzN034BOHbRJVCXBPyeE u6CYFyqrYbcjYunEFAi502 Q220a1fpOKOshgQhsArRos gcy2cnA420OZCxaEIxemBd ZhSmPIWfdLGrrUP8TZEbKE 8ariqzDePcOG8koctiVzAd TN0hofj8GoBuUB3mfzoyHw UmCHwiBDXfpsgfJSMxr8Rz ynzuND7eW4Dmd4H4jI5diM EoCLIdlAStJcHtHIIzxg2y yEBuPRnne7FtDGK2krR0bZ AjtAQjIOEkZG61Rsrpj2Ln GrwzKKN0UCGatrNqb9Ptl9 hmIgHgbhZpC0peK9AeYQBc VJVgVKBcIjTizdSlt5Qas6 FeqNXviTr8s3sqDTDyIKAs gKzdb1dfWPM4ZSWbP5R9dC Gsg9sbVOrdLJUryFE7lscs FKxwABNbmuL4okxvSHedCV GnpOQ6wbcvLQkeRLYoWzT7 pabaTLhbDDYyZVO5VKsja9 61MKM9FCfrKqjrPHljHVIm bmNvbnRccGduZGVjXHBsYW luXHBsYWluXGYwXGZzMjRc cDqleEztlW4vDxOdUeVeLQ npXP6qWCCgS3shhQFrXUKo BRHsA5sxCyQeuZ8pdScrBN jxcfJlDAAwGLMph8RzkDrd V4IcgZBpM5miXHV4 GROSS DESCRIPTION (test d6eoeRWkTKUglBAoIoPiOQ code = 3366) GwNQNqy1ixDUWokRKcGxUg MzNcZnRuYmpcdWMxXGRlZm Chl9hxr468hBOdo9lrNPEk PmY8hCOzRARxdPSgK352CF QkNVfkp2wad8JxTCAeyDIe g4Z1MSGHjtjfdUa0sOmqR7 1fk1G3XgueS8xaMLNpXHnc HRWsRJqaoKMgGUA0ENMqQS C7SQhrzxIdfgD8KVmfvZGs XfA2DBa4j2mnlInpMLBoSH N8b7olACmkrmBaTS5ian2h jEo1x1jmuaAsMTRkVEZrqH QDEVXjB1MppWqqIy2miRy4 jCihCuuuXWG7Nxg0LD4usb 78iqp1oRwqYHQcpngnFkK1 VWuhMCCzoahjXBd4FRwdJO JnbDcyMFxtYXJncjcyMFxt YXJndDcyMFxtYXJnYjcyMF eqZTAjSUI1YZqci868HZR6 RJsma7mve7zdeAZcJzs3ZG YtAxLdFgnaTNggi4Gkv7bd WXHvms4yLJO1rIJelFhaz5 X6vHOtAZEblNNowaLuIGPa XrK4KWygST8yhm55OWLmRW E7lw4mkKYgpRcmhnYhbVIo TAopA8OdLLQyq249VQQkC7 GiJYTjd8G3riOmQkPaZFNr wTD2qbY0JYEpAYx9nAGpec P8seNmeUTuP6ejkZ09LsWa cZLqQ0LmtT78LxMbsYNuG1 LizS01YtKbbSRpW6RfvU57 VsKzxWYvNMMosIWeTj8wiF ClmCKod9XswEIjNOpzR54d g508OVQztjSuI5xauXAdrb xwbGFpblxmMFxmczIwXHFs XHBsYWluXGYwXGZzMjBccG cyvZ9mOcRrYvBeCDAXWmRh XHBsYWluXGYxXGZzMjAgUm NkSEp6SQEcaI6dOd3tfOKl zZ1cxRYcOZzgDOW2dOYiNL RuHSHhPTHrHO72L6BpqlJe EJlpSDKaUUUjlB1dUY30yT OeldBjafXauZajxL9dAvLz VbPlCZByZnuka2EwaHWaNd vwdFY6FdvzSCTcUKwsQRPb RXJsWmLtu9r5fGM2aKZeOB OziAKhd88pxJNhVWYabjfe dGlvblxwbGFpblxmMFxmcz AxWAMdN8FisSNhBkBlh8m4 dSWkbNVld82fAPaeqVMskk xmMVxmczIwIGlycmVndWxh clxwbGFpblxmMFxmczIwIC C3EB0qmNzdbkKinGRqFTWv NoPelWSih7ElGWAglzIeBY Qfx18dfYT1yJVvlKWlsFVn t3CugY1bMRXlUXD7JTOlWp A7OFTwGgBwaA3wUTbqfETb blxmMVxmczIwIFRoZSBzcG XovA1bhxEfxvKonBEvwJO1 BMVgsL3krL29olMup8hid5 dpbmcgZmlsdHJhdGlvbiBp zuGzYKHmRGT0XRcvnFImxz ppYCgqsuHqVCNMAL1pDuCc cGxccGFyfQ== MICROSCOPIC DESCRIPTION l2cnpLSeQXRonGMjAaRpVW (test code = 3371) VyCVVcn8zrVYHngPLsWyLm MzNcZnRuYmpcdWMxXGRlZm Muk7lac761mIGff7nvZIMt HzB1yMUsAFMhyZOkO374LJ CzZEtcn8lzv1BeKBLgfRPt c4V5NCDIkncowDf0vLfnJ1 4fn6C7DbaoZ1quLCWwYVjm MDGpSFmwoVFwAGI9ZIZhGT R7JPhypbQlnjG0FFvybYWq QdV3MUv9s0xmtRjzEIGmLQ Y1q1tzNFoyrzAiNP6kua4k wMb9s7wthxHbPGOtXYBchR ZHCABqQ5TqzRsgTm0haHz9 xJecPploVIY6Hyv1PQ6qwo 25fqy7qMgwKQAywaqaKnK0 XZkiBZZkfgvrOGb2VUfpSA JnbDcyMFxtYXJncjcyMFxt YXJndDcyMFxtYXJnYjcyMF xbFUTcWND7ICvoh745KWD8 XHxrd1zmf1uqaUOlDaj5YF QgOeAuZazxVKlac7Fle3bf WLYtti5gMUD0yUFmaAgxv1 B6iPRaLEIipYRojeSjYKSm vu38aBKhdZTpeEJier4lfb CwsZQneYXzUDC7vEGkfjHq RTFsbDQoQTFgLB0anLFuQF IetD1zbbjkJGMfZvXeuldj SOSydUlirvZaWm7czHxmLZ O8RXemV5xufS2sQcF7CKkj W2wavN7yTMe0SKonnEA3JL IklM8mQG0wnskwt0xuYuXo OQ1xaidqc1rsXqQuCQ2vnx n8q9jrZqXnHT5mivliy9rq NzIwXGhlYWRlcnkwXGZvb3 OenwbiZHTrh4MqG3GebNkh F53sxNesU53mVIPfoKitmT 9sxKyzpE2iVhYsIeYfHHpd bFxwbGFpblxmMFxmczIwXH BsYWluXGYxXGZzMjAgUGVy Mq2gpNNeAuswKNZixMRdkE == SPECIAL STUDIES (test q2kyiUKlIFUyk5pdRGUjgL code = 3376) FuZzEwMzNcZnRuYmpcdWMx VZeglaLvMXmve3AjV7QkFs AwMFxhbnNpXGRlZmxhbmcx WEWzRMW0suMsGICnVOtiXK UsYYqyPk8ckMTbyPvmQaRf CYLdc5ywtqFGieisfSq3e7 oqKOFkToE5bGQxKBdsN5ca piEanDBaY7EbrCHatSm0q5 klUkDcTgU8uSFhPKvbD8yj blEibIVhIFPcJWb4oA99EO QsvQ9jhGEyZSjdzwRqXmS3 SIhxMNHmMiT8NASvcEZuYX RkT2ixPXPkISvgDTWcQRow eJAoHII6yDijr2J4pLHkzN NzuGqbGqOnStOdQuJHd0Ri MVe7wToyI1TyWCZcDbG1fK QgUGFyYWdyYXBoIEZvbnQ7 oBvmzrDcc52vyWKhCJIcVQ MhJlGxgFubNJOlZHKUf4Cx cWmeFCP2bIa5uKwhFfljBG L8Ghc3LG5jcy32dje3sHdk EBBihqovHfC7NCksIKBkmd cyWCh8WZunYWKfnFN8LCOm uBWlU3MeOGVbIH4skvd9KT M0WVpeLYGyOqL3FZAfxCHx LWXjcPkjAXvlp899MOQ2Sq TaEF3dN8Ihy9H2rM4mkMPh BCGhxNQcQoHaMBSvzx0lsQ WeHXzlh8WhHFE9smL3hFFw bYVbYFLzQK78Sthmm8UpOo ozo0XyR99hqDX3FKpda8cy BD6dLpF5koNfFSpxv0ayyC 0pZdK2KXduWM3tOB5pTJHk iX5lwgynABEmGmWoozgtXX GkiBxtnpBnEe6aqGnpAUS0 DGrhP9gitP2kBqL4ZKniZ4 uwsR7mPBq9KGrrwXL0EDVw aA1qDR8strmvy9itTQzvUA gmIQJbmmR4lcT8LASlaSOb X7JljT9yNBOuKL8ixldmv6 qtLFX7VScsJESdNYY0CbNj QYQve6Gdgzl1HcPzz6TtwT MeGQoqN72zn166FWHihcAb Y4gskINksqhtaUTrmvhrZN endfU7LFJzVESoMOsnUOAl XGZzMjJcbGFuZzEwMzNcaG ljaFxmMVxkYmNoXGYxXGxv C0ifRwUeM8KbQXQbTaDtPY opELmvnFBpnYUaeXH6eH2m GD2aDUYgcNDlS4GpNDDsrx RuhXEsGPS6zUEckLDnDB1k CQrhaKKwa7fsk2EvI9gftO fvmRS5KZ6gKRSoLGIuTDuo j6RghP2wPjgmkKObfhbzCS xmczIyXGxhbmcxMDMzXGhp S4dcPtZiMISudGbxVHkmd2 NoXGYxXGNmMlxmczIyXGx0 cmNoXHBhclxwYXJccGxhaW 2hSpElBfEpStdmEI2gBOTv S7avqWUwCALdOQZaG9mrRs EurG3jvSxrASvpTqBiMrOt YiEJz023nj0kBADncDDesd OEvJKkoX6gGJyaAGhdEZzl sJPkJNgfz4zgQYGsu4q9cB QsQZNoidHhv2dgJTxalnNe GIAdzECniBIlVNWpk92qYC aolJkkhEkaHWKcy0WuyNvr v5UtHmMbOBjjq9ItY55dhO JvbCBzbGlkZXMgcnVuIGFs w90uz4vqSELxDmJ9iHEjrZ A9oPDvyDDli8PjaBbtTXSb n5fwFKCtok8czihpzEFsq1 PefZ2dhdyaIQdzqXYzivEm HIChg2c6dLIgNSKhVILhVQ hynJk6MEWoc861ic2ioaY5 gGGbFQX6YLyoFFFhWEPchd UgZXZhbHVhdGVkXHBsYWlu XGYxXGZzMjJcbGFuZzEwMz NcaGljaFxmMVxkYmNoXGYx HFgvN6cpQjWmH7TnUBQhKh JgvTLrS6ypkISjXZUfGZfl XGYxXGZzMjJcbGFuZzEwMz NcaGljaFxmMVxkYmNoXGYx PRgtX3axIoPeR7BaSIRcTl IgIFxwbGFpblxmMVxmczIy OUemmaykTRMqYFweN8dyQv ZtCZPlsJvgGWghx1AeYLXu VZDdEnwkldUfCQa3yqQwGO BhclxwbGFpblxmMVxmczIy OCgajfqwTLKtJZjqF2rpAc EiJBVvzKagTAfls4PbAXMn XGNmMlxmczIyIEltbXVub2 nup3RrU5csuSwbrLH9FENh F5gmgFRofFL2KEZ0fY8zWY oiiiMiFMTuk7HyPKMrFKGl IoH0lU6hXPT0ZdBHbRxbVX BsYWluXGYxXGZzMjJcbGFu ZzEwMzNcaGljaFxmMVxkYm HqGOFfRTizC0rnVwLsR8Ar IVPcAcOsfCktVPhnPBv6Oe xwbGFpblxmMVxmczIyXGxh shgaHNMnKNpwM8onIlTuFP EweQtmBDdho2GqUWUwWJZj MlxmczIyIHMgTWVkaWNhbC JJSG68JWOaQDByuTmkkK5j zJRMYIJiyjP3x7B6NEyoAK AvXXv1DUqdhcNlPGBklA3n FXUsUC4rNMr4irYjWDGlx7 QyFO1bNHAdbLRmOCP7SGKz f5TcW1Pvf1HzEJZiFNVfgy 2mroDsXzHAwZNhGZUwkf51 SCWaVJ3gV8thMFFsFLLnrb NexDDgo4VuHYEicBF7vKFh HE0XLmXRt32fQRMzLOTSum LcMLXxwMzfpSY3wfZ2iE0o LiBUaGUgRkRBIGhhcyBkZX Eptw1dlnAlWAIbUKHzr1Bt iNNpoFYfovGzV3Mwx7VvMV Llni77UInhcXZsda73JA4z M2Lox7HvvY2jWDjoMBPrx6 EtwAVcvLSfQAVag4KwQ8nq dervADujzCYbgJ9hYJJfMW n3KARas7EmMUWhm2HlKzEl moPoWDLtGJWcKLGzcT47HA W4jCmioGqyosFtZM0jDMLm tiKnGGXaTPPlyG6iQXujra BkUJOnhwV6n0A2OEbjTPYr qtQtGuroVKC7tkWyvoU7wA VbH9pbuomkEPieKIIjw8Yq eK6fuSYFjKFgx4GydYPniX JPiWUhJP2uhzTwZG9uWHJ8 ODggKENMSUEtODgpIGFzIH S2HXfmUuciDLF8xbAmRANm y2NgCNfgN7buM91lbZrxwY v4iCTacWcqgMNnfLBvASKu agC5o0S3ZBGrg4JhkeefTL BsYWluXGYyXGZzMjJcbGFu ZzEwMzNcaGljaFxmMlxkYm FhDEApENboH5rnQxVkZgVr WfuqKRA8zP== [id number] 09:36:00Surgical Pathology Report Case: [id number] Authorizing Provider: Vinnie Oglesby Collected: 08/26/2019 12:43 PM MD Beatrice OrderingLocation[facility] Endoscopy Received: 08/26/2019 01:56 PM Services Pathologist: Isac Cummins MD Specimen: Biopsy, Gastric, gastric polyp A. STOMACH, POLYP, BIOPSY: - ANTRAL MUCOSA WITH POLYPOID FOVEOLAR HYPERPLASIA - NEGATIVE FOR HELICOBACTER PYLORI ORGANISMS BY WARTHIN STARRY STAIN - NEGATIVE FOR INTESTINAL METAPLASIA, DYSPLASIA, MALIGNANCY Signing Pathologist Direct Phone Line: [phone] signed by Isac Cummins MD on 08/27/2019 at 9:36 [id number]: upper endoscopy, biopsyPre and postop diagnosis: acute [...] evaluated Immunohistochemistry technical testing was performed at [facility], Pathology Laboratory where it was developed [...] to perform high complexity clinical laboratory testing.POCT-GLUCOSE [id number] 13:26:00 Test Item Value Reference Range Interpretation Comments POC-GLUCOSE METER 122 mg/dL 70-110 H : TESTED A T [facility] 6720 ([employer]) (test code = TERRI Hirsch [facility], 1538) 24177: Foreign Exchange Clerk/Techni wendy ID = [id number] for Ilda Bailey POCT-GLUCOSE [id number] 11:40:00 Test Item Value Reference Range Interpretation Comments POC-GLUCOSE METER 137 mg/dL 70-110 H : TESTED A T [facility] ([employer]) (test code = TERRI Hirsch [facility], 1538) 66797: Foreign Exchange Clerk/Techni wendy ID = [id number] for KATIE CANTU COLON SEGMENT RESEC.NOT [id number] 19:21:00 RUN DATE: 11/14/18 [facility] PAGE 1 RUN TIME: 810 Specimen Inquiry RUN USER: INTERFACE PATIENT: DAISY HAMMER LOC: U #: [id number] AGE/SX: 58/F ROOM: [facility] RE11/11/18REG DR: Betito Collazo MD : 56 BED: A DIS: 11/13/18 STATUS: DIS Sharla TLOC: SPEC #: [id number] RECD: 11/11/18 STATUS: BRITTNY JIANG #: [id number] CRISTINO: 11/11/18- SUBM DR: Betito Collazo MD ENTERED: 11/11/18 SP TYPE: COLONR NIDIA DR: ORDERED: LEVEL V SURGICA CODES: [id number] - COLON, NOS PROCEDURES: LEVEL V SURGICA (Incomplete) TISSUES: COLON, NOS - RECTOSIGMOID DIVERTICULITIS CLINICAL HISTORY 58 year old, diverticulitis (wpd) FINAL DIAGNOSIS Designated "rectosigmoid diverticulitis", segmental resection: - diverticular disease with peridiverticular fibrosis - intestinal rings - unremarkable CPT code(s): 87485 pkg/wpd 11/13/18 GROSS DESCRIPTION ANATOMIC SOURCE OFTISSUE [...] and contains unremarkable mucosa and surrounding tissue. Hostel Parent sections are submitted in A2. The largest [...] Specimen Inquiry RUN USER: INTERFACE SPEC #: [id number] PATIENT: DAISY HAMMER #[id number] (Continued) GROSS DESCRIPTION (Continued) 1.0 cm and containing green-brown fecal material. No discrete perforationor discoloration in those areas are noted. Hostel Parent sections of the intestine with the diverticula are submitted in A3 - A8. Examination of attached adipose tissue reveals no discrete lymph nodes. Hostel Parent sections are submitted in A9 - A16. /wpd 11/11/18 @ 0542 MICROSCOPIC DESCRIPTION The specimen consists of a segment of rectosigmoid colon containing numerous diverticula which extend through the muscularis into the rectosigmoid adipose tissue. Foci of fibrosis are present adjacent to the diverticula. No granulomas, dysplasia or neoplasia are identified. The intestinal rings are unremarkable. pkg/wpd 11/13/18 Signed Deena Storm 11/13/181920 ENDOF REPORT [id number] 07:10:00 Test Item Value Reference Range Interpretation Comments GLUBED (test code = GLUBED) 180 mg/dL 65-110 H COMPREHENSIVE METABOLIC [id number] 05:48:00 Test Item Value Reference Range Interpretation [...] 106 units/L 46-116 N code = ALKP) [id number] 05:48:00 Test Item Value Reference Range Interpretation Comments MAGNESIUM (test code = MAG) 1.8 mg/dL 1.8-2.4 N CBC W/AUTO [id number] 04:49:00 Test Item Value Reference Range Interpretation [...] REQUIRED (test NORMAL NORMAL code = PLTMR) [id number] 21:57:00 Test Item Value Reference Range Interpretation Comments GLUBED (test code = GLUBED) 278 mg/dL 65-110 H [id number] 17:26:00 Test Item Value Reference Range Interpretation Comments GLUBED (test code = 292 mg/dL 65-110 H Hypoglyc emic [employer]oco GLUBED) [id number] 12:11:00 Test Item Value Reference Range Interpretation Comments GLUBED (test code = GLUBED) 131 mg/dL 65-110 H [id number] 07:23:00 Test Item Value Reference Range Interpretation Comments GLUBED (test code = GLUBED) 110 mg/dL 65-110 N CHEMISTRY 7 [id number] 05:23:00 Test Item Value Reference Range Interpretation [...] code = CA) 7.8 mg/dL 8.4-10.2 L [id number] 05:23:00 Test Item Value Reference Range Interpretation Comments MAGNESIUM (test code = MAG) 1.8 mg/dL 1.8-2.4 N CBC W/AUTO [id number] 05:19:00 Test Item Value Reference Range Interpretation [...] REQUIRED (test NORMAL NORMAL code = PLTMR) [id number] 22:07:00 Test Item Value Reference Range Interpretation Comments GLUBED (test code = GLUBED) 171 mg/dL 65-110 H [id number] 17:41:00 Test Item Value Reference Range Interpretation Comments GLUBED (test code = GLUBED) 157 mg/dL 65-110 H [id number] 13:26:00 Test Item Value Reference Range Interpretation Comments GLUBED (test code = GLUBED) 154 mg/dL 65-110 H [id number] 06:54:00 Test Item Value Reference Range Interpretation Comments GLUBED (test code = GLUBED) 143 mg/dL 65-110 H CHEMISTRY 7 [id number] 13:07:00 Test Item Value Reference Range Interpretation [...] = CA) 8.5 mg/dL 8.4-10.2 N HGB [id number] 12:51:00 Test Item Value Reference Range Interpretation Comments HEMOGLOBIN (test code = HGB) 13.6 g/dL 10.7-13.9 N HEMATOCRIT (test code = HCT) 40.3 % 32.1-42.1 N
[2020-06-10] MEDS ORDERED: MORPHINE 4 MG/ML SYR ONE (16:17)
[2020-06-10] MEDS ORDERED: NA CHLORIDE 0.9% 500 ML ONE (16:17)
[2020-06-10 16:24] LABS: Absolute Lymphocytes (CBC) 2.3 K/uL (0.7-4.9); Basophils % 1.3 % (0-1.3); Hematocrit 43.9 % (36.0-45.0); Lymphocytes % 26.1 % (15.3-44.8); MPV 8.1 fL (7.6-11.3); RBC Red Blood Cell Count 4.88 M/uL (3.86-4.86)
--- NOTE | 2020-06-10 16:34 | RAD REPORT ---
EXAM DESCRIPTION: US - Extremity Venous Uni Ltd - 06/10/2020 4:16 pm CLINICAL HISTORY: PAIN Leg swelling and edema. COMPARISON: <Comparisons> FINDINGS: Left lower extremity venous system was interrogated with Doppler technique. Normal flow, c ompressibility and augmentation was noted. There is no DVT present. IMPRESSION: No evidence of left lower extremity deep venous thrombosis.
[2020-06-10 16:41] LABS: ALT/SGPT 60 U/L (12-78); AST/SGOT 50 U/L (15-37); Albumin 3.9 g/dL (3.4-5.0); Alkaline Phosphatase 176 U/L (45-117); BUN Blood Urea Nitrogen 16 mg/dL (7-18); Bicarbonate 25 mmol/L (21-32); Bilirubin Direct 0.1 mg/dL (0-0.2); Bilirubin Total 0.5 mg/dL (0.2-1.0); Glucose Level 136 mg/dL (74-106); Potassium 3.6 mmol/L (3.5-5.1); Protein, Total 8.5 g/dL (6.4-8.2); Sodium Level 139 mmol/L (136-145)
--- NOTE | 2020-06-10 17:06 | ER ---
Nurse's Notes [facility] Name: Robyn Carrion Age: 59 yrs Sex: Female : 1960 Arrival Date: 06/10/2020 Time: 14:29 Bed 16 Private MD: Berry Suero F Diagnosis: Pain in left leg Presentation: 06/10 14:45 Chief complaint: Patient states: L leg calf pain for 3 days. Redness to skin of calf ll1 area for 1 day. No fever. + nausea. Coronavirus screen: Client denies travel out of the [place] in the last 14 days. At this time, the client does not indicate any symptoms associated with coronavirus-19. Ebola Screen: Patient denies travel to an Ebola-affected area in the 21 days before illness onset. Initial Sepsis Screen: Does the patient meet any 2 criteria? No. Patient's initial sepsis screen is negative. Does the patient have a suspected source of infection? Yes: Skin breakdown/wound. Risk Assessment: Do you want to hurt yourself or someone else? Patient reports no desire to harm self or others. Onset of symptoms was June 08, 2020. 14:45 Method Of Arrival: Ambulatory ll1 14:45 Acuity: DARA 3 ll1 Historical: - Allergies: 14:48 HYDROCODONE; ll1 - PMHx: 14:48 fernando esophageal disease; cricopharyngeal spasm; Diabetes - IDDM; Diabetes - NIDDM; ll1 Hernia; High Cholesterol; Hyperlipidemia; - PSHx: 14:48 stent in pancresous; ERCP; Hernia repair; Colon Resection; Cholecystectomy; ll1 Hysterectomy; - Immunization history:: Flu vaccine is not up to date. - Social history:: Smoking status: Patient denies any tobacco usage or history of. Screenin:00 Abuse screen: Denies threats or abuse. Denies injuries from another. Nutritional jl7 screening: No deficits noted. Tuberculosis screening: No symptoms or risk factors identified. Fall Risk IV access (20 points). Total Bonilla Fall Scale indicates No Risk (0-24 pts). Assessment: 16:00 General: Appears in no apparent distress. uncomfortable, Behavior is cooperative, jl7 appropriate for age, anxious. Pain: Complains of pain in left leg Pain currently is 9 out of 10 on a pain scale. Neuro: Level of Consciousness is awake, alert, obeys commands, Oriented to person, place, time, situation. Cardiovascular: Patient's skin is warm and dry. Derm: Skin is pink, warm \T\ dry. 16:00 Respiratory: Airway is patent Respiratory effort is even, unlabored, Respiratory jl7 pattern is regular, symmetrical. 17:00 Reassessment: Patient appears in no apparent distress at this time. Patient and/or jl7 family updated on plan of care and expected duration. Pain level reassessed. Patient is alert, oriented x 3, equal unlabored respirations, skin warm/dry/pink. Vital Signs: 14:45 BP 165 / 88; Pulse 75; Resp 17; Temp 98.1; Pulse Ox 99% ; Weight 69.85 kg; Height 5 ft. ll1 4 in. (162.56 cm); Pain 9/10; 17:00 BP 160 / 87; Pulse 74; Resp 17; Pulse Ox 99% ; jl7 14:45 Body Mass Index 26.43 (69.85 kg, 162.56 cm) ll1 ED Course: 14:29 Patient arrived in ED. am2 14:30 Paige Husain MD is Private Physician. am2 14:30 Berry Suero MD is Private Physician. am2 14:47 Triage completed. ll1 14:47 Arm band placed on. ll1 15:26 Tian Adams PA is PHCP. cp 15:26 Eric Umana MD is Attending Physician. cp 15:28 Aniya Mina RN is Primary Nurse. jl7 16:00 Patient has correct armband on for positive identification. Bed in low position. Call jl7 light in reach. Side rails up X 1. Pulse ox on. NIBP on. 16:00 Initial lab(s) drawn, by nd, sent to lab. Inserted saline lock: 20 gauge in left wrist, jl7 using aseptic technique. Blood collected. 16:16 US Extremity Venous Unilateral Ltd In Process Unspecified. EDMS 17:46 No provider procedures requiring assistance completed. IV discontinued, intact, jl7 bleeding controlled, No redness/swelling at site. Pressure dressing applied. Administered Medications: 16:10 Drug: morphine 4 mg Route: IVP; Site: left wrist; jl7 16:40 Follow up: Response: No adverse reaction; Pain is decreased jl7 16:10 Drug: NS 0.9% 500 ml Route: IV; Rate: bolus; Site: left wrist; jl7 17:00 Follow up: Response: No adverse reaction; IV Status: Completed infusion; IV Intake: jl7 500ml Intake: 17:00 IV: 500ml; Total: 500ml. jl7 Outcome: 17:05 Discharge ordered by . yuan 17:46 Discharged to home ambulatory. jl7 17:46 Condition: stable 17:46 Discharge instructions given to patient, Instructed on discharge instructions, follow up and referral plans. medication usage, Demonstrated understanding of instructions, follow-up care, medications, Prescriptions given X 3. 17:47 Patient left the ED. jl7 Signatures: Dispatcher [employer] EDMS Tian Adams PA PA cp Leal, Jahala RN RN jl7 Harriet Mcgee Lynsay RN RN ll1
--- NOTE | 2020-06-10 17:06 | EDPHYS ---
Physician Documentation [facility] Name: Robyn Carrion Age: 59 yrs Sex: Female : 1960 Arrival Date: 06/10/2020 Time: 14:29 Bed 16 Private MD: Berry Suero F ED Physician Eric Umana HPI: 06/10 15:55 This 59 yrs old Female presents to ER via Ambulatory with complaints of Leg cp Pain - left, Leg Swelling. 15:55 The patient presents with pain, that is acute. The complaints affect the lateral aspect cp of left thigh, lateral aspect of left calf, left hamstring and left calf. Context: resulted from an unknown cause, the patient can fully bear weight, the patient is able to ambulate, with mild difficulty. Onset: The symptoms/episode began/occurred 3 day(s) ago. Modifying factors: the symptoms are aggravated by movement, weight bearing. Associated signs and symptoms: Pertinent positives: calf tenderness, nausea, swelling, Pertinent negatives numbness, weakness. Treatment prior to arrival includes: no previous treatment. Historical: - Allergies: 14:48 HYDROCODONE; ll1 - PMHx: 14:48 fernando esophageal disease; cricopharyngeal spasm; Diabetes - IDDM; Diabetes - NIDDM; ll1 Hernia; High Cholesterol; Hyperlipidemia; - PSHx: 14:48 stent in pancresous; ERCP; Hernia repair; Colon Resection; Cholecystectomy; ll1 Hysterectomy; - Immunization history:: Flu vaccine is not up to date. - Social history:: Smoking status: Patient denies any tobacco usage or history of. ROS: 16:00 MS/extremity: Positive for pain, swelling, tenderness, of the left leg. cp 16:00 Constitutional: Negative for body aches, chills, fever, poor PO intake. cp 16:00 Respiratory: Negative for cough, shortness of breath, wheezing. 16:00 Abdomen/GI: Positive for nausea, Negative for vomiting, constipation. 16:00 Back: Negative for pain at rest, pain with movement, radiated pain. 16:00 Neuro: Negative for numbness, tingling, weakness. 16:00 All other systems are negative. Exam: 16:05 Constitutional: The patient appears in no acute distress, alert, awake, non-toxic, well cp developed, well nourished, uncomfortable. 16:05 Head/Face: Normocephalic, atraumatic. cp 16:05 Chest/axilla: Inspection: normal. 16:05 Cardiovascular: Rate: normal, Rhythm: regular, Edema: is not appreciated, JVD: is not appreciated. 16:05 Respiratory: the patient does not display signs of respiratory distress, Respirations: normal, no use of accessory muscles, no retractions, labored breathing, is not present, Breath sounds: are clear throughout, no decreased breath sounds. 16:05 Abdomen/GI: Exam negative for discomfort, distension, guarding, Inspection: abdomen appears normal. 16:05 Back: pain, is absent, ROM is normal. 16:05 Musculoskeletal/extremity: Extremities: grossly normal except: noted in the left calf and left hamstring and lateral aspect of left calf and lateral aspect of left thigh: pain, tenderness, very mild swelling and very mild appearing advancing erythema along lateral aspect left lower extremity, ROM: full active range of motion, in the left leg, Perfusion: the extremity is normally perfused throughout, Sensation intact. Vital Signs: 14:45 BP 165 / 88; Pulse 75; Resp 17; Temp 98.1; Pulse Ox 99% ; Weight 69.85 kg; Height 5 ft. ll1 4 in. (162.56 cm); Pain 9/10; 17:00 BP 160 / 87; Pulse 74; Resp 17; Pulse Ox 99% ; jl7 14:45 Body Mass Index 26.43 (69.85 kg, 162.56 cm) ll1 MDM: 15:45 Patient medically screened. cp 17:00 Differential diagnosis: cellulitis, lymphangitis, DVT. cp 17:05 Data reviewed: vital signs, nurses notes, lab test result(s), radiologic studies, cp ultrasound. 17:05 Counseling: I had a detailed discussion with the patient and/or guardian regarding: the cp historical points, exam findings, and any diagnostic results supporting the discharge/admit diagnosis, lab results, radiology results, the need for outpatient follow up, a family practitioner, to return to the emergency department if symptoms worsen or persist or if there are any questions or concerns that arise at home. 17:05 ED course: VSS. Pain improved with meds. US negative for DVT. Patient appears non-toxic cp and WBC count wnl. Will cover with oral antibiotic and discharge to home for continued monitoring. 06/10 15:50 Order name: Basic Metabolic Panel 06/10 15:50 Order name: CBC with Diff cp 06/10 15:50 Order name: Hepatic Function cp 06/10 15:51 Order name: Basic Metabolic Panel; Complete Time: 16:52 EDMS 06/10 16:52 Interpretation: Normal except: GLUC 136. cp 06/10 15:51 Order name: CBC with Automated Diff; Complete Time: 16:52 EDMS 06/10 15:51 Order name: Liver (Hepatic) Function; Complete Time: 16:52 EDMS 06/10 15:50 Order name: US Extremity Venous Unilateral Ltd; Complete Time: 16:52 06/10 16:52 Interpretation: Report reviewed. 06/10 15:50 Order name: IV Saline Lock; Complete Time: 16:15 06/10 15:50 Order name: Labs collected and sent; Complete Time: 16:15 cp Administered Medications: 16:10 Drug: morphine 4 mg Route: IVP; Site: left wrist; jl7 16:40 Follow up: Response: No adverse reaction; Pain is decreased jl7 16:10 Drug: NS 0.9% 500 ml Route: IV; Rate: bolus; Site: left wrist; jl7 17:00 Follow up: Response: No adverse reaction; IV Status: Completed infusion; IV Intake: jl7 500ml Disposition: 17:15 Chart complete. 06/11 16:47 Co-signature as Attending Physician, Eric Umana MD I agree with the assessment and kdr plan of care. Disposition: 06/10/20 17:05 Discharged to Home. Impression: Pain in left leg. - Condition is Stable. - Discharge Instructions: Musculoskeletal Pain. - Prescriptions for Diclofenac Sodium 75 mg Oral Tablet, Delayed Release (E.C.) - take 1 tablet by ORAL route 2 times per day; 20 tablet. Tramadol 50 mg Oral Tablet - take 1 tablet by ORAL route every 8 hours as needed; 12 tablet. Keflex 500 mg Oral Capsule - take 1 capsule by ORAL route every 6 hours for 10 days; 40 capsule. - Medication Reconciliation Form, Thank You Letter, Antibiotic Education, Prescription Opioid Use form. - Follow up: Private Physician; When: 1 - 2 days; Reason: Recheck today's complaints. - Problem is new. - Symptoms have improved. Signatures: Dispatcher [facility] Eric Umana MD MD kdr Tian Adams PA PA cp Aniya Mina RN RN jl7 Hamlet Cochran RN RN ll1 Corrections: (The following items were deleted from the chart) 06/10 17:47 17:05 06/10/2020 17:05 Discharged to Home. Impression: Pain in left leg. Condition is jl7 Stable. Forms are Medication Reconciliation Form, Thank You Letter, Antibiotic Education, Prescription Opioid Use. Follow up: Private Physician; When: 1 - 2 days; Reason: Recheck today's complaints. Problem is new. Symptoms have improved. cp
[2020-06-10 17:52] VITALS: TEMP 98.1; O2SAT 99
[2020-06-10 17:53] VITALS: BP 160/87
== END 2020-06-10 17:47 | disposition home or self-care (01) ==
LOC: ER 14:28
DX: M79.652 Pain in left thigh (principal); R22.42 Localized swelling, mass and lump, left lower limb; M79.662 Pain in left lower leg; E11.9 Type 2 diabetes mellitus without complications; Z79.4 Long term (current) use of insulin; E78.00 Pure hypercholesterolemia, unspecified; E78.5 Hyperlipidemia, unspecified; K22.70 Barrett's esophagus without dysplasia
CPT/HCPCS: 96361; 85025; 80048; 36415; 80076; 93971; 96374; 99284; J7040

== ENCOUNTER 2020-06-13 01:04 | Emergency (ER) | payer OTHER ==
--- OUTSIDE RECORDS SUMMARY | 2020-06-13 01:08 | XMS REPORT | Continuity of Care Document ---
:1960 Author Organization [facility] t Address [address] [place] [address] Dr. Brennan [address] [place] [id number] Care Team Providers Name Role Phone Pio [...] Expiration Date Sour ce Number MEDICAREMEDICARE A [id number] ROSETTA Crump [id number] 2001-P 00:00:00 - Medical resentMedicare Center MEDICAIDMEDICAID OF [id number] 2017 ROSETTA Crump [id number] 00:00:00 - Medical -PresentMedicaid Center Problems Condition Condition Condition Status Onset Resolution Last Treating Co mments Source Name Details Category Date Date Treatment Clinician Date Biliary Biliary Disease Active [facility] Hyperlipid Hyperlipid Problem Active [facility] [place] [facility] Hypertensi Hypertensi Problem Active [facility] [place] [facility] Diabetes Diabetes Problem Active [facility] [place] [facility] Follow up Follow up Problem Active [facility] [place] [facility] Allergies, Adverse Reactions, Alerts Allergy Allergy Status Severity Reaction(s) Onset Inactive Treating Comm ents Source Name Type Date Date Clinician Codeine Drug Active Nausea And [facility] - [facility]: Medical 00 [place] Hydrocod Drug Active Nausea And As per [facility] one-Acet Allergy Vomiting, 08-14 patient, Romina blank - aminophe Other (See 00:00: " it Medi sarah n Comments) 00 wears on Cente r my stomach" hydrocod DA Active [facility] [place] Hydrocod Propensi Active [place] [facility] ty to 7 Methodi adverse 00:00: st reaction 00 s to drug Family History Family Member Diagnosis Comments Start Date Stop Date Source Natural father Diabetes [facility] Natural father Hypertension [facility] Natural mother Diabetes [facility] Natural mother Heart disease [facility] Natural mother Hypertension [facility] Unknown Family Family history of Other Uni versity of Member diabetes mellitus [place] [facility] Unknown Family Family history of Other Uni versity of Member hypertension [place] [facility] Unknown Family Family history of Other Uni versity of Member Heart problem [place] [facility] Social History Social Habit Start Date Stop Date Quantity Comments Source History of tobacco Current sm[facility] History SDOH [facility] - Alcohol Std Drinks Medica [facility] History SDOH [facility] - Alcohol Binge Medical [place] ter Sex Assigned At [facility] Cigarettes smoked 2019-11-18 2019-11-[address] [facility] - current (pack per 00:00:00 00:00:00 Medical Center day) - Reported Cigarette 2019-11-18 2019-11-[address] [facility] - pack-years 00:00:00 00:00:00 [facility] Tobacco use and 2019-11-18 2019-11-[address] Romina kes - exposure 00:00:00 00:00:00 [facility] Alcohol intake 2019-11-18 2019-11-18 [facility]er [facility]00 [facility] alcohol Medical Center (finding) Alcohol Comment 2019-11-17 2019-11-[address] Romina kes - 00:00:00 00:00:00 [facility] History SDOH 2019-08-15 2019-08-[address] [facility] - Alcohol Frequency 00:00:00 00:00:00 [facility] Tobacco Comment 2019-08-15 2019-08-15 quit [address] [facility] - 00:00:00 00:00:00 ago [facility] Smoking Status Start Date Stop Date Source Former smoker 2019-11-18 00:00:00 2019-11-18 00:00:[address] [facility] [facility] Never smoker [facility] Medications Ordered Filled Start Stop Current [...] daily as needed . lipase/prot 2020-0 Yes [id number] Take [facility] ease/amylas 8-12 [id number] 36,000 [facility] - e (CREON 13:03: 3D [...] Source Systolic blood 2019-11-19 11:32:00 126 mm[Hg] [facility] Diastolic blood 2019-11-19 11:32:00 60 mm[Hg] [facility] Heart rate 2019-11-19 11:32:00 57 /min [facility] Body temperature 2019-11-19 11:32:00 35.72 Alysia [facility] Respiratory rate 2019-11-19 11:32:00 20 /min [facility] Oxygen saturation in 2019-11-19 11:32:00 98 /min [facility] - Arterial blood by Medical Ce nter Pulse oximetry Body height 2019-11-18 06:58:00 157.5 cm [facility] Body weight 2019-11-18 06:58:00 69.355 kg [facility] BMI 2019-11-18 06:58:00 27.97 kg/m2 [facility] Height 2018-05-24 10:25:00 62 [in_us] [facility] Weight 2018-05-24 10:25:00 154.9 [lb_av] [facility] [place] [facility] Body Mass Index 2018-05-24 10:25:00 28.33 kg/m2 [facility] Calculated [place] [facility] BP Systolic 2018-04-26 10:21:00 127 mm[Hg] [facility] [place] [facility] BP Diastolic 2018-04-26 10:21:00 76 mm[Hg] [facility] [place] [facility] Height 2018-04-26 10:21:00 62 [in_us] [facility] [place] [facility] Weight 2018-04-26 10:21:00 155.6 [lb_av] [facility] [place] [facility] Body Mass Index 2018-04-26 10:21:00 28.46 kg/m2 [facility] Calculated [place] [facility] Temperature 2018-04-26 10:21:00 97 [degF] [facility] [place] [facility] Heart Rate 2018-04-26 10:21:00 73 /min [facility] [place] [facility] Procedures Procedure Date / Time Performed Performing Clinician Sourc e POCT-GLUCOSE METER 2019-11-19 07:32:00 Jam Davalos [facility] COMPREHENSIVE METABOLIC 2019-11-19 06:19:00 Padmini Armando [facility] CBC W/PLT COUNT & AUTO 2019-11-19 05:32:00 Padmini Armando [facility] HEMOGLOBIN A1C 2019-11-19 05:32:00 [facility] POCT-GLUCOSE METER 2019-11-18 21:05:00 Thang Oden [facility] REPORT OF PROCEDURE - 2019-11-18 11:51:31 Vinnie Oglesby [facility] - ENDOSCOPY URL [facility] [place] ERCP 2019-11-18 11:08:00 Reny [facility] ERCP,PAPILLOTOMY 2019-11-18 10:18:00 Vinnie Oglesby [facility] PROCEDURE W/ C-ARM 2019-11-18 10:18:00 Vinnie Oglesby [facility] ERCP,BALLOON SWEEPING 2019-11-18 10:18:00 [facility] POCT-GLUCOSE METER 2019-11-18 07:34:00 Reny [facility] REPORT OF PROCEDURE - 2019-08-26 13:44:33 CalebtinaDaniel mcke[facility]USC [facility] URL [facility] POCT-GLUCOSE METER 2019-08-26 13:14:00 Calebtinamike [facility] TISSUE EXAM 2019-08-26 12:43:00 Ottinamike [facility] UPPER ENDOSCOPY,BIOPSY 2019-08-26 12:18:00 Calebtinamike [facility] S t [facility] UPPER 2019-08-26 12:18:00 Calebtinamike [facility] - ENDOSCOPY,SUBMUCOSAL [facility] ter INJECTION UPPER 2019-08-26 12:18:00 Calebtinamike [facility] - ENDOSCOPY,ULTRASOUND [facility] ter POCT-GLUCOSE METER 2019-08-26 11:28:00 tinamike [facility] Plan of Care Planned Activity Planned Date Details Comments Source Future Scheduled 2019-12-09 INFLUENZA VACCINE (#1) [facility] Test 00:00:00 [code = INFLUENZA Medical Ce nter VACCINE (#1)] Future Scheduled 2019-11-08 INFLUENZA VACCINE [place] [facility] 00:00:00 [code = INFLUENZA VACCINE] Future Scheduled 2008 BREAST CANCER [facility] thodist Test 00:00:00 SCREENING [code = BREAST CANCER SCREENING] Future Scheduled 2008 COLONOSCOPY SCREENING [place] [facility] 00:00:00 [code = COLONOSCOPY SCREENING] Future Scheduled 2008 SHINGLES VACCINES (#1) [place] [facility] 00:00:00 [code = SHINGLES VACCINES (#1)] Future Scheduled 2003-09-[address] [facility] - Test 00:00:00 (procedure) [code = Medical Center 41233811] Future Scheduled 2002-10-[address] [facility] - Test 00:00:00 WELLNESS (YEAR 2 or Medical Center FIRST YEAR if no IPPE) [code = MEDICARE ANNUAL WELLNESS (YEAR 2 or FIRST YEAR if no IPPE)] Future Scheduled 1979-09-07 Screening for [facility] Test 00:00:00 malignant neoplasm of cervix (procedure) [code = 989802529] Future Scheduled 1979-09-[address] [facility] - Test 00:00:00 [facility] cervix (procedure) [code = 549111436] Future Scheduled 1976 Hepatitis C screening [place] [facility] 00:00:00 (procedure) [code = 306516651] Future Scheduled 1974 COVID-19 VACCINE (1 of [place] [facility] 00:00:00 2) [code = COVID-19 VACCINE (1 of 2)] Future Scheduled 1968 DIABETES: RETINAL EYE [place] [facility] 00:00:00 EXAM [code = DIABETES: RETINAL EYE EXAM] Future Scheduled 1968 DIABETIC FOOT EXAM [place] [facility] 00:00:00 [code = DIABETIC FOOT EXAM] Future Scheduled 1968 URINE MICROALBUMIN [place] [facility] Test 00:00:00 [code = URINE MICROALBUMIN] Future Scheduled [address] [facility] - Test 00:00:00 malignant neoplasm of [facility] breast (procedure) [code = 303149164] Future Scheduled [address] [facility] - Test 00:00:00 malignant neoplasm of [facility] colon (procedure) [code = 315470982] Encounters Start End Encounter Admission Attending Care Care Encounter Source Date/Time Date/Time Type Type Clinicians Facility Department ID 2018-05-24 2018-05-24 RAFAT [place] [id number] Univers 10:30:00 10:30:00 t; WILL, Surgery nelson ANTONIO D.O. Specialty [facility] s Adrian SOLIS D.O. ans 2018-04-26 2018-04-26 RAFAT [place] [id number] Univers 10:15:00 10:15:00 t; nelson SOLIS D.O. [place] Adrian SOLIS D.O. ans 2018-04-19 2018-04-19 Karlos ANTONIO RAFAT UTP [id number] Univers 10:00:00 10:00:00 t; nelson SOLIS D.O. [place] WILL Physicjoyce Ritter.O. [facility] 2018-03-27 2018-03-27 Appointlindsey MARISELA, RAFAT UTP [id number] Univers 10:30:00 10:30:00 t; nelson SOLIS D.O. [place] WILL Physicjoyce Ritter.O. [facility] 2018-03-22 2018-03-22 [facility] MARISELA, [facility] UTP [id number] Univers 10:30:00 10:30:00 t; nelson SOLIS D.O. [place] WILL Physicojyce Viera. [facility] 2018-03-06 2018-03-06 [facility] FREDERICK, RAFAT UTP [id number] Univers 08:30:00 08:30:00 t; CYRIL MACK M.D. i ty of [place] [facility] [place] [facility] 2018-02-14 2018-02-14 [facility] SEANSATURNINO, [facility] UTP [id number] Univers 08:15:00 08:15:00 t; nelson SOLIS D.O. [place] WILL Physicjoyce CastellanoO. [facility] 2018-01-11 2018-01-11 [facility], [facility] UTP [id number] Univers 10:30:00 10:30:00 t; nelson SOLIS D.O. [place] WILL Physicjoyce CastellanoO. [facility] Results Test Description Test Time Test Comments Results Result Comments Source Hemoglobin A1c 2019-11-19 09:28:00 Test Item Value Reference Range Interpretation Comme nts Hemoglobin A1C (test code = 4548-4) 8.1 % 4.3-6.1 H Lab Interpretation (test code = 98700-4) [facility]normal [facility] [id number] 09:28:00 Test Item Value Reference Range Interpretation Comments HEMOGLOBIN A1C (BEAKER) (test code = 8.1 % 4.3-6.1 H 368) POC-Glucose [id number] 07:44:00 Test Item Value Reference Range Interpretation Comments POC-Glucose Meter (test 130 mg/dL 70-110 H : TE STED AT [facility] code = 1538) [address] [place], [address]: [place] Install[employer] Helper/Techni wendy ID = [id number] for KRISSY FERRER Lab Interpretation (test Abnormal code = 95125-0) [facility] [id number] 07:44:00 Test Item Value Reference Range Interpretation Comments POC-GLUCOSE METER 130 mg/dL 70-110 H : TESTED A T [facility] 6720 (BEAKER) (test code = TERRI Hirsch [facility], 1538) [address]: [place] Installation Helper/Techni wendy ID = [id number] for KRISSY FINNEGAN Comprehensive metabolic [id number] 06:55:00 Test Item Value Reference Range Interpretation Comments Protein, Total (test 6.8 See_Comment [Autom ated code = 2885-2) message] The system which generated this result transmit migdalia reference range : 6.0 - 8.3 gm/dL . The reference range was not u sed to interpret th is result as normal/abnormal . Albumin (test code = 3.5 g/dL 3.5-5 32265-3) Alkaline Phosphatase 119 U/L 40-150 (test code = 6768-6) Total Bilirubin (test 0.5 mg/dL 0.2-1.2 code = 1975-2) Sodium (test code = 136 meq/L 423-811 7276-2) Potassium (test code 4.0 meq/L 3.5-5.1 = 2823-3) Chloride (test code = 105 meq/L 98-107 2075-0) CO2 (test code = 26 meq/L 22-29 8-9) BUN (test code = 17 mg/dL 7- 3094-0) Creatinine (test code 0.77 mg/dL 0.57-1.25 = 2160-0) Glucose (test code = 162 mg/dL 70-105 H 2345-7) Calcium (test code = 8.8 mg/dL 8.4-10.2 28828-6) AST (test code = 24 U/L 5-34 1920-8) ALT (test code = 27 U/L 6-55 1742-6) EGFR (test code = 76 mL/min/1.73 [place] [address]-0) NOT ACCURATE CREATININE CLEARANCE IN PREDICTING GLOMERULAR FILTRATION RATE . ESTIMATED GFR I S NOT APPLICABLE FOR DIALYSIS PATIEN TS. TRUDY (test code = TRUDY) [place] Install[employer] Helper ID - SUNITHA L Lab Interpretation Abnormal (test code = 81679-0) [facility] [id number] 06:55:00 Test Item Value Reference Range Interpretation [...] S NOT APPLICABLE FOR DIALYSIS PATIEN TS. [place] Installation Helper ID - SUNITHA LCBC with platelet count + automated [id number] 05:55:00 Test Item Value Reference Range Interpretation Comments WBC (test code = 6690-2) 13.1 See_Comment H [A utomated message] The system [employer] generated this result transmitted ref erence range: 3.5 - 10 .5 K/L. The refe rence range was not u sed to interpret this result as normal/abnor mal. RBC (test code = 789-8) 4.21 See_Comment [Au tomated message] The system [employer] generated this result transmitted ref erence range: 3.93 - 5 .22 M/L. The refe rence range was not u sed to interpret this result as normal/abnor mal. MCHC (test code = 786-4) 35.1 See_Comment [A utomated message] The system [employer] generated this result transmitted ref erence range: [...] See_Comment [Aut omated message] 777-3) The system [employer] generated this result transmitted ref erence range: 150 - 45 0 K/CU MM. The referen ce range was not u sed to interpret this result as normal/abnor mal. MPV (test code = 9.5 fL 9.4-12.3 79739-1) nRBC (test code = 413) 0 See_Comment [Aut omated message] The system [employer] generated this result transmitted ref erence range: [...] H [Aut omated message] 670) The system [employer] generated this result transmitted ref erence range: 1.56 - 6 .13 K/L. The refe rence range was not u sed to interpret this result as normal/abnor mal. # Lymphs (test code = 1.95 See_Comment [Auto mated message] 414) The system [employer] generated this result transmitted ref erence range: 1.18 - 3 .74 K/L. The refe rence range was not u sed to interpret this result as normal/abnor mal. # Monos (test code = 0.81 See_Comment H [Autom ated message] 415) The system [employer] generated this result transmitted ref erence range: 0.24 - 0 .36 K/L. The refe rence range was not u sed to interpret this result as normal/abnor mal. # Eos (test code = 416) 0.02 See_Comment L [Au tomated message] The system [employer] generated this result transmitted ref erence range: 0.04 - 0 .36 K/L. The refe rence range was not u sed to interpret this result as normal/abnor mal. # Baso (test code = 417) 0.01 See_Comment [A utomated message] The system [employer] generated this result transmitted ref erence range: 0.01 - 0 .08 K/L. The refe rence range was not u sed to interpret this result as normal/abnor mal. Immature 0 % 0-1 Granulocytes-Relative (test code = 2801) Lab Interpretation (test Abnormal code = 38637-7) [facility] W/PLT COUNT & AUTO [id number] 05:55:00 Test Item Value Reference Range Interpretation [...] PERCENT (BEAKER) (test code = 2801) POCT-GLUCOSE [id number] 21:17:00 Test Item Value Reference Range Interpretation Comments POC-GLUCOSE METER 255 mg/dL 70-110 H : TESTED A T [facility] 6720 (BEAKER) (test code = [place], 1538) [address]: [place] Installation Helper/Techni wendy ID = [id number] for ABHILASH MARTI [id number] 11:22:39INTRA OP IMAGINGReason for exam:->abnormal imaging Fluoroscopic unit utilized for a procedure performed in the OR. No interpretation was requested. Refer to the operative report for findings. Refer to PACS for patient radiation dose information.FL [id number] 11:22:39 Interface, External Ris In - 11/18/2019 11:22 AM CDTFluoroscopic unit utilized for a procedure performed in the OR. No interpretation was requested. Refer to the operative report for findings. Referto PACS for patient radiation dose information.[facility] [id number] 07:45:00 Test Item Value Reference Range Interpretation Comments POC-GLUCOSE METER 155 mg/dL 70-110 H : TESTED A T [facility] 6720 (BEAKER) (test code = [place], 1538) [address]: [place] Installation Helper/Techni wendy ID = [id number] for ED WARDS, KATIE Tissue [id number] 09:36:00 Test Item Value Reference Range Interpretation Comments Case Report (test code Surgical Pathology = 104) Report Case: [id number] Authorizing Provider: Vinnie Oglesby Collected: 08/26/2019 12:43 PM MD Beatrice Ordering Location: [facility] Endoscopy Received: 08/26/2019 01:56 PM Services Pathologist: Isac Cummins MD Specimen: Biopsy, Gastric, gastric polyp DIAGNOSIS (test code = k7tdgGFvXHSjw1itAVZcsX 3220) FuZzEwMzNcZnRuYmpcdWMx HMmrrgLzDYybz7BpP1HtKp AwMFxhbnNpXGRlZmxhbmcx TRFcTOW1xrUdVMBbUYzgUH NaVYpkSu5voJRuqMafYtUz BHVjk7gfbpRClcyhrCe1f4 cuVVGwKhW7xUMuVOuyD2ay tmTfrSCkVBLkMMn9vH61HM YnhX1wsBNcBGgmawJwLzO4 FAcoMBSiUzP4ZRUpoUFcIZ MqQ2zhGPJwZOvvENOkWBca wTOhLFQ3zLqsl9U3mMUzdR NstOgvJbFaPrHtXCLQm8Vd JBt6nVvuY0FrSTMuGsD5bX QgUGFyYWdyYXBoIEZvbnQ7 rL07HCqizvS3oWOua6Tor8 4re093dW3twGZhELN1KILo EKJjnTUuINLtNBF0UWOlyF EoE5l2UgVryNKtM8V1KhGh kWXcN4Y5MrAtgZCkT5G3Fh BlaSKeUULvkIYmXy3qzXKw sUUpui8ssm53WRK0a5QzdC zlQCV9EDE2EhNjDg0diSMn SKEsKX4cXiElaCFaCYUxdr 41vEqnAYsajsZvpO5cWcZg QL6ysLmzs30rCJGzKC7myE 3tpf3ehyXaDIxpxTBrxGZ0 wgtiDBC0ECKuwtWzc3Hby9 loTvFsmuSiI5eyB7TzRGLu IIVeHLDhJxMzrrGcj0Niw2 RgcNXcvSp5w6rpRWEsYQVe sCzfl4feKRW3RFQbI6I1gS Lro1zwZJspSVDzpNB5meab GCdkKCEgqfE4sdlfGBkuIM OekHF4xwphLEzbESViCuU7 sxocAPbgWJKsFXN5JCbxb8 22AWZ4NIuiBideOKfjEYDj bmNvbnRccGduZGVjXHBsYW luXHBsYWluXGYwXGZzMjRc eZIjKLaot0SrqkBvuWtjNH SpJIn8gcIoyfvfsZu8jXYy zYikMTZvxRbsiC9eAmEnZm EoNDazRY9iXOEhR7flwLMo UCJbOXLfC5chAtVbnQ8apU xmMVxmczIwIEEuIFxwbGFp blxmMVxmczIwXGxhbmcxMD WlOLkrI6wnSeVhWCGigDpr FWnxw8RuZVMuVKDoGgqbqw XoGDq8djTnRPMKU83BY4hw IFxwbGFpblxmMVxmczIwXG gzctcpAYQuLXvaN7nfLeVp SOZpnApwLDcij1JoTTLzKP JaGwCpUE7SYOVsSSwzwODt blxmMVxmczIwXGxhbmcxMD QwQSjqJ5sfQwNmJCOfkEyp GCpya8LjFPJiOAFjGisemy AfSLj1abJvEQLIU2JPKOOi YWluXGYxXGZzMjBcbGFuZz EwMzNcaGljaFxmMVxkYmNo ZWRxFWoeQ0abQiDlEoRfLM BZXHBsYWluXGYxXGZzMjBc bGFuZzEwMzNcaGljaFxmMV daGtBuCDKiKFscU2fiAmNe S2FxKLWlPqRjvGMjL3wbJf qpUMBriIwzsW5aMyAfNeHj ASidAG8yQLDpM3hazZXaSV AdSTUhB9txQmWugP4woJyk KQbwclNwPHWewSpqdF5oBi PdXmZgHRtjQF7xHVJdP8cq kTVfQVZmNDHzC1xoFcNfwS 9jaFxmMVxjZjJcZnMyMFxs dHJjaCAtXHBsYWluXGYxXG ZzMjBcbGFuZzEwMzNcaGlj aFxmMVxkYmNoXGYxXGxvY2 hcZjFcZnMyMCAgXHBsYWlu XGYxXGZzMjBcbGFuZzEwMz NcaGljaFxmMVxkYmNoXGYx JQtfG9ffHyPtK0NuWTTiPt TlcCReU3olJBMESRQNVDFJ PGRTG9JrM7uQJCJynEybqQ 2sFbVdHtYeFLzvPP4tSYTv X3yqnCIkSVXoXEYgX7whJd NnmW6pxLyqBZvprnEqTYUG MEeXC9lLCIWGRuHOKQJAQY oHOXXHKZdIG2cMEAQrcaQa XHBsYWluXGYxXGZzMjBcbG FuZzEwMzNcaGljaFxmMVxk IdFoXPZgEXlsY8xgXfUsE5 QrBDDhYiZwfFDoZ4ykOHyc bGFpblxmMVxmczIwXGxhbm suSLIkJRznM2mfYyCqSLIh oTtiTFddx1KfJCPkMGGnLx AgIFxwbGFpblxmMVxmczIw BIafvmemNSFaRKhgO1asKs WiKXWzwHgfUCtyt2KgACFf XHYxTdegbaDlZLk7nsFmSO IDNWhWPZqLBONWL8AcXFYT HNYIHiHTZEAIYEAVTT3TMP VUKwqTKouEXKSgFqjfB1DI YQeLQaOKGMUJEpsjN9NVVX 0vsQHsRBIaghRmc3XgFQLg LLX2FUfwIHttoViwzJUxpv bqONsqnuE2ZPFtINjpBMPp XGZzMjBcbGFuZzEwMzNcaG ljaFxmMVxkYmNoXGYxXGxv J5xdGuFrAqXoCIUjPERqQN luXGYxXGZzMjBcbGFuZzEw MzNcaGljaFxmMVxkYmNoXG EkWSgoW6ogMnFnT0KhWEKn LnVqsJYsS4ybPFgkpACrdy xmMVxmczIwXGxhbmcxMDMz RVysF4voAxIoLMWofKncID dsi1HqOLCpOHHyFqAwPWvf bGFpblxmMVxmczIwXGxhbm nzUEZtVGhuQ6nfGsWsZJYr oCwbLSeil4EwBACzKTWrLa mnwdCkYSy6aqDrYJQQDNhQ HZoNTSXVH5OeBP0UXRYBJT 1DADJVESNMIYkYL8fOTGXV XQPWLLGZJZSkVB0UKPyUQb COW7hohMpzeT3bQbSjVjQi DCypHW2cFKXuY9gbjLHaYP KoWETzY5zcKvFclQ2uoUpk COpsxpIpMTDnolwvCQP0x6 xydGYxXHNzdGUxODAwMFxh bnNpXGRlZmxhbmcxMDMzXG X4ypSeBMTpOOjtBDDcYIcq Mp9zlEIxjMuqSoYyCPTnd3 qpsjYUvbwzcIy6m5kaPSKy TaO1aDCkDIhqT0jlzhWriG FaFWDzAZn4vK42BOItnK9o yRGdHGqvsgSdRvG5COhhXR JgNbU9NTThkUWcLDUmG3tt ZWQwXGdyZWVuMFxibHVlMC I6mSlxi3W8vJTzkBXzjLwe EbXuFwPcVbLFc0EjDLb5sU mjP8DyMUEaFiJ0wUYeLAEq BRywRMRtCEWibnW9eX17GL cjwhJ1kZLhm2Qzd62ex698 fL1bfZUuMXE4CLFtSLEilN LoZXLbJGV9TLErnDNbO8fe YRGjBW9pttzuRCdxUWchKX JctUE9IEGqkIDrU4AbZZSb EVxjXRPomzl7MkHuEd7ycC WcrEljZCzmn7rqd4qdwCAf Omv3IXExDjLuCutuGGtwt1 Iqn6nbLWUfow0hMQP7eUSs dGxuu1P7yVDqKDMctOFvJB MvCN3tsEDpYNSmvS2xysul XHBnYnJkcmhlYWRccGdicm BjZp1fhHroEIJ6VUoeX8gd rH6aRdZ7NZdvD4zqxW3gZJ o7DIgmWTUywJG4kmO5EVKq qILkJ2ZfhC8iHDDiMF8nnv p4n4jnJIZ4JPlpEHHdDfC8 ehB5RURcxIBaSDWxjIjfAB xck379GYG8TkYkRZFdp4Lp V3IycSoxK77xxNwsU74vPR FadQctxU7cjIfuaP9dTrCo MbDwETjukNvfFB0hBPUuU9 ydhDSpDEDjDOUjL5mtWgAk cE9uoJfjERskspZmJAOyCx d1ZEEfnLUmOZSqEtg5AYRo TFDeI89aucrkWDE6qV2sv5 fnj2CqJZvsQDT1CBYop41t AGkvlwK0GEeaSe6pHiApIY M4VCvzCIC0kX== CPT Code(s) (test code g8mbeDUsZAZfaBFjPsGdOV = 3357) QfTLAqd6nmBTHtjECaHqMo MzNcZnRuYmpcdWMxXGRlZm Qqf3lvd194fHQgi2bfCRQv IxG2pVAzLWUysJRyJ444l4 rxc9pbwpDgdAA3XBIeXWQ4 WZmggbAklbC6HMymbCTwXf H2CRhlqdYjXOvtkgHvrmRr Uqg5KCRgX681GNU0qZfyc5 rnYOQ2UKZoQCSiLmQaJy7e kLObB353YEBsRTODUOBrjC o7VGOzlyAnolSudUHYf748 Y115r8apJHJuneLbqBoSte zpz7euG838GCCyjIDayoSo LyXmTUWroUFuqND6GMCaFW 0rdklbCwDjDY7otoxxCqJc FE9rehh7OjLrYH2verknCa YdQQbwEJCaqwirZAEiu8Oo aljwZK3nP5Ctk8Y5iQ1soR AsRBZblFFzQxRgXNEyax4e dQQbWDokf9QoICJ7oeI1bJ AnmCBxMXEbDL81Akjhh1Hq DygfXGS6NIPbptAwo2Xbt9 hmUaEvgeFlZ3bbD8PkGDOg DJMtVWRlZhPustCwt2Aoq7 OvtBXheCa1b9bbYNWuTLMl mWvwl8xlTEQ9UYPoP8D8hF Pqh9tlGSqtGJSyfTH9uorx JSguDCZaljS4mlakCSihSS RnxUI8edmkNWqbNZTcIlO4 ovjoGQieQWJdJNI6LJnlr5 37TQI7LRfaEeiaVPwvWBOv bmNvbnRccGduZGVjXHBsYW luXHBsYWluXGYwXGZzMjRc uZqgiSftnH3sLmFeMnKkQA dtKH4bDWClP7eorSRcDPLe SSPrD4xdVaDdtP3dtEyrTD ewdgViVPf5FdJ1RFKjycS5 ODMxMlxwYXJ9 CLINICAL HISTORY (test l8dnaVGpLFNboZEqZzUzCM code = 3355) KkDMNyz8syASVekWVuIhOc MzNcZnRuYmpcdWMxXGRlZm Wph9evl235kHMch1zlIQTn QuB1tKWsNFPvlXAlB085NL IyGYucn1zxd9WvUXYqqUTj y2F4YQOAmpjusHc9dTkzN4 3ok5G8QztiZ3ksTLEbFWqu OBTaXVqgiBQxQQM3LXFwTR W1QZrtmmNcpdG8RXfwhYAw XjW6CMm0e0lgcKifAGXkVV D2n7suKJpzfvAhKD8pja8v bHw9w0llofVfCUMxERMgqS JBCYKyC8CbyFyuIv2qlCq4 yWndPxssWPV2Sce3SL0bjv 53emb9jTnpMOCymhnfYyG0 IBttILZatefbSXv4OVlcEB JnbDcyMFxtYXJncjcyMFxt YXJndDcyMFxtYXJnYjcyMF juIJCgYXL5JGnwf754HYD3 YRmir8gvo8utwAWfVfk7II KmRtCyFdxaJQczq6Bdg4zn PGWtse5kBOE7pRPqmFlkv2 J9yFIiPKDkfTMkraHbEMOz OqZ1DTasIP5rnk66STEuLW E4ot2boPRkbTtsugNboRHv OLekU9AtJOWvu964TSFhA5 CmHOAyu0R9biDaAwZzNXSd fGM5rpU7DENnJHf4qSSyob X0jdWheKSqB5nttI80TzPa vGElL4KidZ89VvTvnRWqA7 BhhN87DgSpqHBdA1EznK55 CvOsaYObESTcbBYzXz2ftR GagUXlh2CjnNYdSYcmF15t j779NXPextYlP7sstKNvap xwbGFpblxmMFxmczIwXHFs XHBsYWluXGYwXGZzMjBccG kzrX5oFuDsNwMwYXEHzi3x FIR2xpS3KTRwhWGfZOVzEC 8xX65iuHvwEonfqZT8SNEi qyGAdjIoAI1sTAAyn9NaaS JgrLFeks3naMR0QKIubKVw HBBaefBxFMY2jNLosiJsnG FyfQ== SPECIMEN SOURCE (test s5sajCMsRWWhaXQjEkIfQO code = 3377) QlGJHtj0veTGTarSNeUnLy MzNcZnRuYmpcdWMxXGRlZm Qwa3pbo461cHJyu5crXAMf VuD0qZWgXEUazRPpK682z8 tbc4pjnxByiUI7LBZaYUI6 KFwehgBgtnX9POhygDAmId W1GRbcvvKwQPfndpZnxfLr Zjj7YIYsI545WHV4vZswq8 xsUGQ2XAYaVROzFnDsGq7d nSOhP533IXZtAEAQHLSkgA e3OQHjowHtptCigSUQj617 P704e8tsLJLffsUuzUyHbh qtv7enE148MEFltQAkffXm LxToRQVumCHdvOJ9BQQbID 2tvlthOkVaXY9bswweAjCa SJ6cztq6WeBjAQ5iurrlUf CaPAovIHYbbtlwWRBzc5Se qgbsLQ2vX0Pwj9W3wV3drE UsABCrnXXaPaIwOAPiiv4f zKXfTOzpw8XfOBH3fpI3nV IoxVEqGGUqTD66Ldpbw1Bv LxbhYJT8IJJiopQdy3Ipp1 izEiKxorCuR7obY0HqJHRp XDQrSGByQtKkcoDdx9Xju0 MksZDthCm3q7pxDHObCSXr nCvpy3myRFV3HNSuW5G9xR Qno8lkNAlyZAKeqOI7fvby JPuhPPBpgjU8ewuyJIzbQN YkyYJ0rtscAHynHGNgDqR2 cpdoBQgxSBAxMXJ3PFpik7 78TOC2LMzwQffiCUjvGGVp bmNvbnRccGduZGVjXHBsYW luXHBsYWluXGYwXGZzMjRc wPmbvJmhlI6uCtGlRfMqQX rnMA9qYSQmR1bxmEEqPCSa PCWmE3pqWzVopL5rhQtuTT vpsrVmWKPtAGNay6DogGla Y2CtvZLhX2ftNJO8 GROSS DESCRIPTION (test j2focPAsGJCwlQDwQzZwST code = 3366) QrUPBcb6msUEJrzXGsWvJi MzNcZnRuYmpcdWMxXGRlZm Nlz7xkt021fQZfd2jqPAWj VgY3xLUuLWXdkQPjG951AO KwUXnuq9ukz7NrODEwbVKa i2I2DPLBliucaVl7eGflJ6 6iz7N9RmtpV7rbPYQfTTpm ABFjAZnyiXCsFOO9JAKaCD G6PYqcdtSjnfO3QQtbpITm XhZ9KGe9z9qpkXbcKCBeAB V2d4xqJBrtovZaXG1cuy1d jKh1t5qxktXhAWAlYIXlvG GWIBIwS4NquNhuJm6qkZy0 kPrtDvwlSWZ4Iaw5UT6jsh 17bih1tMdbGXDhjjueLfE5 KLnzKNRpzeqsVQf7WShiMQ JnbDcyMFxtYXJncjcyMFxt YXJndDcyMFxtYXJnYjcyMF kyAXQlWGT5PFxtw170MUN4 KPsyd9qzc4hkbBAaUcj5YS XpHaIxEbzvHWmtt1Qxs6dt PUNunr2vFDM0sEQspImnv4 A7wIUhYMYunYGjucUfFGWd WhZ0MGkpIC6wjr68OLLpCS V9vo8zjRRdpJielbIfmXLa JStiD5IrOGBel126VYAtI8 ToUFBjh8U3hkHbKsEnODEe gWN6jjU6EITsTYa2fMPnyu J1ocBvxPXcU3qemQ06TnTa pLSfU8MagI98XwJubVZgR6 LnwP00RyTmmILcC5UhxN40 DgYnvDOfAAEzmGTxNm6shL JddSQnf4KhcYHqPKejW79l w872ONYfohTmX4oruWQboa xwbGFpblxmMFxmczIwXHFs XHBsYWluXGYwXGZzMjBccG oanI1lYrZzPmJaDWOXUwBf XHBsYWluXGYxXGZzMjAgUm QfEJw3GTPnvV8dZi4ltNMw eC8biYViVDloMBQ3zFGnVB NwMWYdHZAyPL95U9OiqlDq WUfdQXGzIIKuzY0zKI91kC FwsnFmblFmrHmnbX5iIcKz XnFhLPWrVaehz7YbcDEjEh rchJP7VtztITLbEIyxHMJi WUPkYaBqq1t0aNV8jCIaFW WgjEQfq40ktEToSEVdrmxd dGlvblxwbGFpblxmMFxmcz CwEKScI9QgtBOiGgPov6g5 nBYuyAMni28lZBkpuFHxel xmMVxmczIwIGlycmVndWxh clxwbGFpblxmMFxmczIwIC P0EQ7ufCbavsBazKQqUKQl EvZqaSObo7JxCNAjqeLxQI Aus69qoTX3dSEnmWEroOKc h6OzdP7gZAQoGFA7GTFrLz S6QIHtUiWzjC7vQGmdgJYq blxmMVxmczIwIFRoZSBzcG QjtR3dstYfduDemVKicBM9 LUMsaR4uqD41qiEju9yeu9 dpbmcgZmlsdHJhdGlvbiBp tnOhUVSjMPZ0HHkcwYNsed fwIDihgmNwYPNWJU5fWyMf cGxccGFyfQ== MICROSCOPIC DESCRIPTION w0rbfFXoVWKeuSGaUeZzTS (test code = 3371) HaRJAvq9ssFZWsxLEuHiBi MzNcZnRuYmpcdWMxXGRlZm Ela1ecq615eMPhb2jeGVQb QfA4eATxZWVyrZWyS018VN NxETpzf5udp8QvZBZqpVQl q6T9IKDDnpdcjFm1sCpuL5 6sa1T4XaxxN8fmWFUlIQed PDJdGTuviPFaOBN5XQWcJT H8QQnogaIthrW0CNkknUXo LdZ2IXi7u0bdfLraQHAfUG U0m5vfRIkwocKrVU5vja2u vMy3j0psapMlUYUmZAOikZ UUGOKiQ9YzrSpmBe4npBh3 uQuuRuqkIJK6Vir2TQ7xrr 99tha6oNssJYCrppjnRjD8 RHdrYKRbzfsbZYf8RKqdQE JnbDcyMFxtYXJncjcyMFxt YXJndDcyMFxtYXJnYjcyMF ohVPMtODS5PZmac970YIR4 UExxc1zxr7wduEKwLdj9XY XdQaSaQygnAPetj5Gaz0rl NVTxuy3zYEE2kWWiiRfsf0 O5zMZdJYJubZQumtMxHYNy zh86eAAdmCWoqAGhlz5kvl WgsLNyrZLbCSH3tTXaurBg HRUncHKdIVSbWB2xcMHxGN BcaJ1zsushGFIeSrOuzaah BTRmpBbfxiVwJj3ycEqhSV F4QCioQ1ctrV2eRzZ7JEyr F2mncU3eJQu2AFrojUZ2JL YjyH0dLV0mjygql6byBiAe EV0fzdjvu6lxVePzAJ3gcd k5w6sxRtYrKT9mvumqj1nr NzIwXGhlYWRlcnkwXGZvb3 IovtgiHDQpl1LgB0MofFmp B41dpWarT94eZYHuvCbroR 3snLzaxS1pBsDjEqWeOJlk bFxwbGFpblxmMFxmczIwXH BsYWluXGYxXGZzMjAgUGVy Su8zyPOkVqhfVBYroJHqxM == SPECIAL STUDIES (test a6uckYMkMMCvy4zzFEWeeL code = 3376) FuZzEwMzNcZnRuYmpcdWMx OUqmarMlILdlv0ZlA6FzXx AwMFxhbnNpXGRlZmxhbmcx KWMbING7mmKlFDUaWFduBU PpSQxyLd9xeDCkaRmpHfNu UNSji1tguiXYwbjitCv2h9 eyKOZkTsF9xKIfXWkjL9ld syXttNGpT1AfoCMwqHf5b5 vnLfJpAhU6dHAwBLnuW8vw ffHruEXoKQSgFVv4qX55HX PigQ6zkWNcGLpltxBfNjY0 TAbcQQNpJjC4BFDocGNnXO NxG7yhTULaQPgzXBOmXWcx uDCnWYG7tTltg8H6tBZxqP AwsRqmJmWpSgChSrOEm9Nq OLj4xXacI1NdSRNnGrP8lZ QgUGFyYWdyYXBoIEZvbnQ7 lQopsqNtz15vkSSvJWVqLI CrKcRiuIojWWAlKINWa6Pt hSgvSMY8lNc8iRxaHgdoYK A2Qdk4GN6ksz42hem5bIcm FKZxcwpaDhQ6IKtrHUCnxs fpSVx1ABvmUVMmrIH8HXSc sTBfN8SeLBRdPC9iyoe3JP H0WJmyTOCpJmP5FJOunANv CPWkeLfdEVwyg836OID4Jg AcHX7yK0Ulu0K3rL4yuGGf RCPboFGqDoQoVQYrjv1coE JwUWjkt2VyLHQ9mwV2hAWb tKPhJKLyRN21Qiyek8ScLl lkm9ZaR98krSI8ZIgfc5bt OU1pKtU3txOgXRpxs4wopZ 3hGzY7TBrvJL5mVI0aEZLd zB7oiqiwEBJiJbHhctaoYC FenIdscrRpJi7zcQztKJX8 EWdaN8tdaX9oQpX8BIolN6 wliH2xOFz1SPvqoIW9CWPg gD7vAQ7gwjwvs6uzMVpiWR alBABzshU1cwE0KBBvlNJj N1JfvB7jYJEzNI4axdcmg0 oaMAD2UZbmRGPaMWG2DgWc DCDnh6Enohz1RoWub2DdsH TeKHwrJ29zi979UAJoqtKj F7qdpOHrmlzaxJHagtcoAB waomC6VSJfVBAdVQjoWTJv XGZzMjJcbGFuZzEwMzNcaG ljaFxmMVxkYmNoXGYxXGxv D2ljGrLrM0EeTJFeFhBgLG vzHKarwLJrlIBzcYC8lD1t IX2hRVYifENzH1ZzMROdmv SmhARyRLA4lRWkfYJqCI5d FEzdgNPlg0ryj9PmQ7epiK jqgUG0UK8uAFMhKSEgEIdy l4GizI2cOihzrTYqahstRE xmczIyXGxhbmcxMDMzXGhp C1ssZmHoRRRswUtwYWjlx6 NoXGYxXGNmMlxmczIyXGx0 cmNoXHBhclxwYXJccGxhaW 6hEwVqOyYmLwjsQF1tQXDs G9wpaSXkMDLdJMZhB6rxTl UzzA9fzUazIFjqPsHoTeUu DqVRg949xk5sLOBboDZhyx FMvINbsM5fTWykXQcnCFvv oVYoXQeiw5fwXYCoh8w2cS NtTIHlueGek9qkECojujSq STUjxCCzfXWpECPqg40iRP souKilmXbvOAXqn2SziTet b3DbToZrUKiyj5NcM61vcA JvbCBzbGlkZXMgcnVuIGFs i76lr7dpGEVpMtA5uHJlbP S5vCRzeYDgx3RiwGzzXLPi e4ovOQXagi9dqxbyqACcn7 BcxO7jysrwXLjlhSJilnSg XMAtw1m3yFGgLKRwAPIsFD fdsIw8RCZsw386ai9mlkZ5 vUUbXKO4JWbrPZWjXJKfpz UgZXZhbHVhdGVkXHBsYWlu XGYxXGZzMjJcbGFuZzEwMz NcaGljaFxmMVxkYmNoXGYx MVwsY2ybUbDjZ3JbZMBlKz PwcBGuO9vahTPlCPVkKMjo XGYxXGZzMjJcbGFuZzEwMz NcaGljaFxmMVxkYmNoXGYx MJoeP3iiTjQcT7NsAUHuKy IgIFxwbGFpblxmMVxmczIy KDpsoaqbLIHjTKnvX6ixWu PqVBWldIqoNWmwq8OfOCEw CEIsOylqltStAXx7zfIeAJ BhclxwbGFpblxmMVxmczIy LKakohveHAWxLChgD4wpRo IrQVLkzVbaUDffp1BiMYUm XGNmMlxmczIyIEltbXVub2 ykq4KnP1xhuQqkqGU3AVAd T7bknTDwrSR0FFF9nZ7yMO fhefEbYUUuz4OqEFQgNNGi FxL5bR1kNYA8VsIImMzhEH BsYWluXGYxXGZzMjJcbGFu ZzEwMzNcaGljaFxmMVxkYm GoQZLzSGnwI5xfEtZqR5Jd TLThDlGygLrdLYqkVQe5Tg xwbGFpblxmMVxmczIyXGxh idkuMJFkOMswL8sjCiObEI OpwPsrXSedx6FjVAWbRBVm MlxmczIyIHMgTWVkaWNhbC WUZY13NXInWVOoiSnsoX9l dYILXWUybfW8u6H5WGthOB BtFVi5LZuvtcQoXJXpnJ7c HCIuRE7lNFo0smSdTVZmv3 FoYO3uYHNxgYDcQRL7DQYu r4UyJ3Ihl6TqPZSnJEJmfz 2mulLnNiYElRZyJENgmj89 MDAuOR7dU5jcOQFfPXBsca UtxACxj3YsUMUgnGO1uFIl QE5YMcBUx58zPUVcJNHCky PxWYEskQwcvFB0bwN1rD6x LiBUaGUgRkRBIGhhcyBkZX Mnhr8yfeWsPDMnVVJtu4Hf pIWdnPUjfcUdV7Kwl2PyML Nejl56GKgtuFWnib92SS8t L4Ajo0ZmgI2zOZesAWSnv9 XmcJJsbOPwSWDgg6XpF7ru jhmxPElerZTvbE5vEGAbLB j4TOQxb7DdNXVkf0NvYuUe tmJsPDJsYYTuGWXewW71ZK Y6sLrynMhmsuHzZV2zQUWg wpTxYHQrXJOukB2rXSnjet EeMFJfmyD4r9S6WDsrAAMw vzSuQspoKZN0ahYdzfA7nA PcG4goujzcUWihXPHua8Sz eN2orRSTfQQee4UtuCVmtC SYgANcJE3qexXmJQ5eHTE9 ODggKENMSUEtODgpIGFzIH N4TEekUnkgOBZ1ktChCTTp e1McZPooY7xzV18djMsmeR l1aZYvkNzqyIPlgFAuGGQb vbC9x1R6XZMar2XjwrjlZW BsYWluXGYyXGZzMjJcbGFu ZzEwMzNcaGljaFxmMlxkYm TyZMUzHOftP0cwBaCsLnTl IhzkCWG6dI== [id number]:36:00Surgical Pathology Report Case: [id number] Authorizing Provider: Vinnie Oglesby Collected: 08/26/2019 12:43 PM MD Beatrice OrderingLocation: [facility] Endoscopy Received: 08/26/2019 01:56 PM Services Pathologist: Isac Cummins MD Specimen: Biopsy, Gastric, gastric polyp A. STOMACH, POLYP, BIOPSY: - ANTRAL MUCOSA WITH POLYPOID FOVEOLAR HYPERPLASIA - NEGATIVE FOR HELICOBACTER PYLORI ORGANISMS BY WARTHIN STARRY STAIN - NEGATIVE FOR INTESTINAL METAPLASIA, DYSPLASIA, MALIGNANCY Signing Pathologist Direct Phone Line: [phone] signed by Isac Cummins MD on 08/27/2019 at 9:36 [id number]: upper endoscopy, biopsyPre and postop diagnosis: acute [...] evaluated Immunohistochemistry technical testing was performed at [facility], Pathology Laboratory where it was [...] to perform high complexity clinical laboratory testing.POCT-GLUCOSE [id number] 13:26:00 Test Item Value Reference Range Interpretation Comments POC-GLUCOSE METER 122 mg/dL 70-110 H : TESTED A T [facility] 6720 ([email or web address]) (test code = TERRI Hirsch [facility], 1538) [address]23: [place] Installation Helper/Techni wendy ID = [id number] for Ilda Bailey POCT-GLUCOSE [id number] 11:40:00 Test Item Value Reference Range Interpretation Comments POC-GLUCOSE METER 137 mg/dL 70-110 H : TESTED A T [facility] 6720 ([email or web address]) (test code = TERRI Hirsch [facility], 1538) 07309: [place] Installation Helper/Techni wendy ID = [id number] for KATIE CANTU COLON SEGMENT RESEC.NOT [id number] 19:21:00 RUN DATE: 11/14/18 [facility] PAGE 1 RUN TIME: 810 Specimen Inquiry RUN USER: INTERFACE PATIENT: DAISY HAMMER LOC: U #: [id number] AGE/SX: 58/F ROOM: [facility] RE11/11/18REG DR: Betito Collazo MD : 56 BED: A DIS: 11/13/18 STATUS: DIS Sharla TLOC: SPEC #: [id number] RECD: 11/11/18 STATUS: BRITTNY JIANG #: [id number] CRISTINO: 11/11/18- SUBM DR: Betito Collazo MD ENTERED: 11/11/18 SP TYPE: COLONR NIDIA DR: ORDERED: LEVEL V SURGICA CODES: [id number] - COLON, NOS PROCEDURES: LEVEL V SURGICA (Incomplete) TISSUES: COLON, NOS - RECTOSIGMOID DIVERTICULITIS CLINICAL HISTORY 58 year old, diverticulitis (wpd) FINAL DIAGNOSIS Designated "rectosigmoid diverticulitis", segmental resection: - diverticular disease with peridiverticular fibrosis - intestinal rings - unremarkable CPT code(s): 29383 pkg/wpd 11/13/18 GROSS DESCRIPTION ANATOMIC SOURCE OFTISSUE [...] and contains unremarkable mucosa and surrounding tissue. Fisheries Technical Officer sections are submitted in A2. The [...] Specimen Inquiry RUN USER: INTERFACE SPEC #: [id number] PATIENT: DAISY HAMMER #[id number] (Continued) GROSS DESCRIPTION (Continued) 1.0 cm and containing green-brown fecal material. No discrete perforationor discoloration in those areas are noted. Fisheries Technical Officer sections of the intestine with the diverticula are submitted in A3 - A8. Examination of attached adipose tissue reveals no discrete lymph nodes. Fisheries Technical Officer sections are submitted in A9 - A16. /wpd 11/11/18 @ 2005 MICROSCOPIC DESCRIPTION The specimen consists of a segment of rectosigmoid colon containing numerous diverticula which extend through the muscularis into the rectosigmoid adipose tissue. Foci of fibrosis are present adjacent to the diverticula. No granulomas, dysplasia or neoplasia are identified. The intestinal rings are unremarkable. pkg/wpd 11/13/18 Signed Deena Storm 11/13/181920 ENDOF REPORT [id number] 07:10:00 Test Item Value Reference Range Interpretation Comments GLUBED (test code = GLUBED) 180 mg/dL 65-110 H COMPREHENSIVE METABOLIC [id number] 05:48:00 Test Item Value Reference Range Interpretation [...] 106 units/L 46-116 N code = ALKP) [id number] 05:48:00 Test Item Value Reference Range Interpretation Comments MAGNESIUM (test code = MAG) 1.8 mg/dL 1.8-2.4 N CBC W/AUTO [id number] 04:49:00 Test Item Value Reference Range Interpretation [...] REQUIRED (test NORMAL NORMAL code = PLTMR) [id number] 21:57:00 Test Item Value Reference Range Interpretation Comments GLUBED (test code = GLUBED) 278 mg/dL 65-110 H [id number] 17:26:00 Test Item Value Reference Range Interpretation Comments GLUBED (test code = 292 mg/dL 65-110 H Hypoglyc emic Protoco GLUBED) [id number] 12:11:00 Test Item Value Reference Range Interpretation Comments GLUBED (test code = GLUBED) 131 mg/dL 65-110 H [id number] 07:23:00 Test Item Value Reference Range Interpretation Comments GLUBED (test code = GLUBED) 110 mg/dL 65-110 N CHEMISTRY 7 [id number] 05:23:00 Test Item Value Reference Range Interpretation [...] code = CA) 7.8 mg/dL 8.4-10.2 L [id number] 05:23:00 Test Item Value Reference Range Interpretation Comments MAGNESIUM (test code = MAG) 1.8 mg/dL 1.8-2.4 N CBC W/AUTO [id number] 05:19:00 Test Item Value Reference Range Interpretation [...] REQUIRED (test NORMAL NORMAL code = PLTMR) [id number] 22:07:00 Test Item Value Reference Range Interpretation Comments GLUBED (test code = GLUBED) 171 mg/dL 65-110 H [id number] 17:41:00 Test Item Value Reference Range Interpretation Comments GLUBED (test code = GLUBED) 157 mg/dL 65-110 H [id number] 13:26:00 Test Item Value Reference Range Interpretation Comments GLUBED (test code = GLUBED) 154 mg/dL 65-110 H [id number] 06:54:00 Test Item Value Reference Range Interpretation Comments GLUBED (test code = GLUBED) 143 mg/dL 65-110 H CHEMISTRY 7 [id number] 13:07:00 Test Item Value Reference Range Interpretation [...] = CA) 8.5 mg/dL 8.4-10.2 N HGB [id number] 12:51:00 Test Item Value Reference Range Interpretation Comments HEMOGLOBIN (test code = HGB) 13.6 g/dL 10.7-13.9 N HEMATOCRIT (test code = HCT) 40.3 % 32.1-42.1 N
[2020-06-13 03:27] LABS: Absolute Lymphocytes (CBC) 1.7 K/uL (0.7-4.9); Basophils % 0.5 % (0-1.3); Hematocrit 41.2 % (36.0-45.0); Lymphocytes % 26.4 % (15.3-44.8); RBC Red Blood Cell Count 4.55 M/uL (3.86-4.86)
[2020-06-13 03:41] LABS: ALT/SGPT 52 U/L (12-78); AST/SGOT 38 U/L (15-37); Albumin 3.3 g/dL (3.4-5.0); Alkaline Phosphatase 194 U/L (45-117); BUN Blood Urea Nitrogen 13 mg/dL (7-18); Bicarbonate 25 mmol/L (21-32); Bilirubin Direct < 0.1 mg/dL (0-0.2); Bilirubin Total 0.3 mg/dL (0.2-1.0); Glucose Level 267 mg/dL (74-106); Protein, Total 7.4 g/dL (6.4-8.2); Sodium Level 138 mmol/L (136-145)
[2020-06-13 04:18] LABS: Urine Blood NEGATIVE (NEG); Urine Glucose 2+ (NEG); Urine Protein NEGATIVE (NEG)
--- NOTE | 2020-06-13 04:51 | EDPHYS ---
Physician Documentation [facility] Name: Robyn Carrion Age: 59 yrs Sex: Female : 1960 Arrival Date: 06/13/2020 Time: 01:09 Bed 19 Private MD: ED Physician Ciro Salinas HPI: 06/13 03:11 This 59 yrs old Female presents to ER via Ambulatory with complaints of Leg mh7 Pain. 03:11 The patient presents with pain, that is acute. The complaints affect the left leg. mh7 Context: The problem was sustained at an unknown site, resulted from an unknown cause, the patient can fully bear weight, the patient is able to ambulate, with mild difficulty, Problem is a result from a previous injury: No. Onset: The symptoms/episode began/occurred 4 day(s) ago. Modifying factors: The symptoms are alleviated by nothing. the symptoms are aggravated by weight bearing. Associated signs and symptoms: Pertinent negatives calf tenderness, fever, nausea, numbness, rash, swelling, tingling, vomiting, warmth, weakness. Treatment prior to arrival includes: prescription medications, Ultram or Ultracet. Severity of symptoms: At their worst the symptoms were moderate, 3 day(s) ago, in the emergency department the symptoms have improved, moderately. The patient has been recently seen at the [facility] Emergency Department, this week. Historical: - Allergies: 01:13 HYDROCODONE; sg - PMHx: 01:13 fernando esophageal disease; cricopharyngeal spasm; Diabetes - IDDM; Diabetes - NIDDM; sg Hernia; High Cholesterol; Hyperlipidemia; - PSHx: 01:13 stent in pancresous; ERCP; Hernia repair; Colon Resection; Cholecystectomy; sg Hysterectomy; - Immunization history:: Adult Immunizations up to date. - Social history:: Smoking status: Patient denies any tobacco usage or history of. ROS: 03:11 Constitutional: Negative for fever, chills, and weight loss, Eyes: Negative for injury, mh7 pain, redness, and discharge, ENT: Negative for injury, pain, and discharge, Neck: Negative for injury, pain, and swelling, Cardiovascular: Negative for chest pain, palpitations, and edema, Respiratory: Negative for shortness of breath, cough, wheezing, and pleuritic chest pain, Abdomen/GI: Negative for abdominal pain, nausea, vomiting, diarrhea, and constipation, Back: Negative for injury and pain, : Negative for injury, bleeding, discharge, and swelling, Neuro: Negative for headache, weakness, numbness, tingling, and seizure, Psych: Negative for depression, anxiety, suicide ideation, homicidal ideation, and hallucinations, Allergy/Immunology: Negative for hives, rash, and allergies, Endocrine: Negative for neck swelling, polydipsia, polyuria, polyphagia, and marked weight changes, Hematologic/Lymphatic: Negative for swollen nodes, abnormal bleeding, and unusual bruising. Exam: 03:11 Constitutional: This is a well developed, well nourished patient who is awake, alert, mh7 and in no acute distress. Head/Face: Normocephalic, atraumatic. Eyes: Pupils equal round and reactive to light, extra-ocular motions intact. Lids and lashes normal. Conjunctiva and sclera are non-icteric and not injected. Cornea within normal limits. Periorbital areas with no swelling, redness, or edema. Neck: Trachea midline, no thyromegaly or masses palpated, and no cervical lymphadenopathy. Supple, full range of motion without nuchal rigidity, or vertebral point tenderness. No Meningismus. Chest/axilla: Normal chest wall appearance and motion. Nontender with no deformity. No lesions are appreciated. Cardiovascular: Regular rate and rhythm with a normal S1 and S2. No gallops, murmurs, or rubs. Normal PMI, no JVD. No pulse deficits. Respiratory: Lungs have equal breath sounds bilaterally, clear to auscultation and percussion. No rales, rhonchi or wheezes noted. No increased work of breathing, no retractions or nasal flaring. Abdomen/GI: Soft, non-tender, with normal bowel sounds. No distension or tympany. No guarding or rebound. No evidence of tenderness throughout. Back: No spinal tenderness. No costovertebral tenderness. Full range of motion. 03:11 Neuro: Awake and alert, GCS 15, oriented to person, place, time, and situation. Cranial nerves II-XII grossly intact. Motor strength 5/5 in all extremities. Sensory grossly intact. Cerebellar exam normal. Normal gait. Psych: Awake, alert, with orientation to person, place and time. Behavior, mood, and affect are within normal limits. 03:11 Musculoskeletal/extremity: Extremities: noted in the left lateral lower leg: erythema, ROM: intact in all extremities, Circulation is intact in all extremities. Pulses: are normal with no appreciated deficits, Perfusion: the patient is normally perfused throughout, Perfusion: the extremity is normally perfused throughout, Calf tenderness, is absent, Sensation intact. Compartment Syndrome exam of affected extremity: is normal. no numbness, no tingling, no sensation deficit, no palor, no weak pulses, Joints: All joints appear normal with full range of motion. Weight bearing: able to fully bear weight, without difficulty, Tendon exam: specific tendon testing normal through active and passive range of motion DVT Exam: no swelling, no tenderness, negative Homans' sign noted on exam, no appreciated bluish discoloration, no increased warmth, Calves: are non-tender, have equal circumference. 03:11 Skin: cellulitis, that is mild, on the left lateral lower leg. Vital Signs: 01:30 BP 188 / 90; Pulse 68; Resp 20; Pulse Ox 100% on R/A; ll2 02:30 BP 171 / 93; Pulse 70; Resp 22; Pulse Ox 97% on R/A; ll2 03:30 BP 171 / 64; Pulse 63; Resp 20; Pulse Ox 97% on R/A; ll2 04:30 BP 155 / 62; Pulse 59; Resp 18; Pulse Ox 95% on R/A; ll2 05:17 BP 155 / 62; Pulse 59; Resp 20; Pulse Ox 95% on R/A; ll2 MDM: 04:49 Differential diagnosis: contusion, abrasion, cellulitis. Data reviewed: vital signs, [facility] nurses notes, lab test result(s), CBC, electrolytes, urinalysis. Data interpreted:. Counseling: I had a detailed discussion with the patient and/or guardian regarding: the historical points, exam findings, and any diagnostic results supporting the discharge/admit diagnosis, lab results, the need for outpatient follow up, to return to the emergency department if symptoms worsen or persist or if there are any questions or concerns that arise at home. Response to treatment: the patient's symptoms have markedly improved after treatment. 04:51 Patient medically screened. [facility] 06/13 01:54 Order name: Glucose, Ancillary Testing; Complete Time: 03:34 EDNJ 06/13 02:09 Order name: CBC with Diff; Complete Time: 04:26 mh7 06/13 02:09 Order name: Basic Metabolic Panel; Complete Time: 04:26 mh7 06/13 02:09 Order name: LFT's; Complete Time: 04:26 mh7 06/13 03:19 Order name: Urine Dipstick--Ancillary (enter results); Complete Time: 04:26 ds4 06/13 02:09 Order name: Urine Dipstick-Ancillary (obtain specimen); Complete Time: 03:18 mh7 06/13 02:09 Order name: Saline Lock; Complete Time: 03:18 mh7 Administered Medications: 03:20 Drug: Zofran (Ondansetron) 4 mg Route: IVP; Site: right forearm; ll2 03:21 Drug: morphine 4 mg Route: IVP; Site: right antecubital; ll2 Disposition: 06/13/20 04:51 Discharged to Home. Impression: Cellulitis-Left Lower Extremity. - Condition is Stable. - Discharge Instructions: Cellulitis, Adult, [id number]. - Prescriptions for Bactrim DS 800- 160 mg Oral Tablet - take 1 tablet by ORAL route every 12 hours for 10 days; 20 tablet. - Medication Reconciliation Form, Thank You Letter, Antibiotic Education, Prescription Opioid Use form. - Follow up: Private Physician; When: 1 - 2 days; Reason: Worsening of condition, Recheck today's complaints, Continuance of care, Re-evaluation by your physician. - Problem is an ongoing problem. - Symptoms have improved. Signatures: Dispatcher [employer] EDMS Sherman Knight RN RN Bridgette Anderson RN RN 2 Ciro Salinas MD MD 7 Corrections: (The following items were deleted from the chart) 05:20 04:51 06/13/2020 04:51 Discharged to Home. Impression: Cellulitis-Left Lower Extremity. ll2 Condition is Stable. Forms are Medication Reconciliation Form, Thank You Letter, Antibiotic Education, Prescription Opioid Use. Follow up: Private Physician; When: 1 - 2 days; Reason: Worsening of condition, Recheck today's complaints, Continuance of care, Re-evaluation by your physician. Problem is an ongoing problem. Symptoms have improved. [facility]
--- NOTE | 2020-06-13 04:51 | ER ---
Nurse's Notes [facility] Name: Robyn Carrion Age: 59 yrs Sex: Female : 1960 Arrival Date: 06/13/2020 Time: 01:09 Bed 19 Private MD: Diagnosis: Cellulitis-Left Lower Extremity Presentation: 06/13 01:11 Chief complaint: Seen on 06/10/2020 for leg pain, redness and swelling. US negative for sg DVT, discharge home with Diclofenac, Tramadol, and Keflex. Reports continues to have leg pain at this time. Coronavirus screen: Client denies travel out of the [place] in the last 14 days. At this time, the client does not indicate any symptoms associated with coronavirus-19. Ebola Screen: Patient negative for fever greater than or equal to 101.5 degrees Fahrenheit, and additional compatible Ebola Virus Disease symptoms Patient denies exposure to infectious person. Patient denies travel to an Ebola-affected area in the 21 days before illness onset. No symptoms or risks identified at this time. Initial Sepsis Screen: Does the patient meet any 2 criteria?. Risk Assessment: Do you want to hurt yourself or someone else? Patient reports no desire to harm self or others. Onset of symptoms was June 13, 2020. Care prior to arrival: None. Transition of care: patient was not received from another setting of care. 01:11 Acuity: DARA 4 sg 01:11 Method Of Arrival: Ambulatory sg 02:49 Initial Sepsis Screen: Does the patient have a suspected source of infection? No. ll2 Patient's initial sepsis screen is negative. Triage Assessment: 02:49 General: Appears uncomfortable, Behavior is calm, cooperative, appropriate for age. ll2 Pain: Complains of pain in left ankle and left leg and left foot. EENT: No signs and/or symptoms were reported regarding the EENT system. Neuro: Level of Consciousness is awake, alert, obeys commands, Oriented to person, place, time, situation. Cardiovascular: Patient's skin is warm and dry. Respiratory: Airway is patent Respiratory effort is even, unlabored, Respiratory pattern is regular, symmetrical. GI: No signs and/or symptoms were reported involving the gastrointestinal system. : No signs and/or symptoms were reported regarding the genitourinary system. Derm: Skin is pink, warm \T\ dry. Musculoskeletal: Circulation, motion, and sensation intact. Range of motion: limited in left ankle and left leg and left foot. Historical: - Allergies: 01:13 HYDROCODONE; sg - PMHx: 01:13 fernando esophageal disease; cricopharyngeal spasm; Diabetes - IDDM; Diabetes - NIDDM; sg Hernia; High Cholesterol; Hyperlipidemia; - PSHx: 01:13 stent in pancresous; ERCP; Hernia repair; Colon Resection; Cholecystectomy; sg Hysterectomy; - Immunization history:: Adult Immunizations up to date. - Social history:: Smoking status: Patient denies any tobacco usage or history of. Screenin:45 Abuse screen: Denies threats or abuse. Nutritional screening: No deficits noted. ll2 Tuberculosis screening: No symptoms or risk factors identified. Fall Risk None identified. Assessment: 01:30 General: Appears in no apparent distress. Behavior is calm, cooperative, appropriate ll2 for age. Pain: Complains of pain in left foot and left leg. Neuro: Level of Consciousness is awake, alert, obeys commands, Oriented to person, place, time, situation. Cardiovascular: Patient's skin is warm and dry. Respiratory: Airway is patent Respiratory effort is even, unlabored, Respiratory pattern is regular, symmetrical. GI: No signs and/or symptoms were reported involving the gastrointestinal system. : No signs and/or symptoms were reported regarding the genitourinary system. EENT: No signs and/or symptoms were reported regarding the EENT system. Derm: Skin is intact, Skin is dry, Skin is pink, warm \T\ dry. Skin temperature is. Musculoskeletal: Circulation, motion, and sensation intact. Range of motion: limited in left ankle. 02:30 Reassessment: Patient and/or family updated on plan of care and expected duration. Pain ll2 level reassessed. Patient is alert, oriented x 3, equal unlabored respirations, skin warm/dry/pink. 03:22 Reassessment: Patient and/or family updated on plan of care and expected duration. Pain ll2 level reassessed. Patient is alert, oriented x 3, equal unlabored respirations, skin warm/dry/pink. Vital Signs: 01:30 BP 188 / 90; Pulse 68; Resp 20; Pulse Ox 100% on R/A; ll2 02:30 BP 171 / 93; Pulse 70; Resp 22; Pulse Ox 97% on R/A; ll2 03:30 BP 171 / 64; Pulse 63; Resp 20; Pulse Ox 97% on R/A; ll2 04:30 BP 155 / 62; Pulse 59; Resp 18; Pulse Ox 95% on R/A; ll2 05:17 BP 155 / 62; Pulse 59; Resp 20; Pulse Ox 95% on R/A; ll2 ED Course: 01:09 Patient arrived in ED. am4 01:12 Triage completed. sg 01:12 Arm band placed on. sg 01:30 Ciro Salinas MD is Attending Physician. [facility] 01:44 Bridgette Anderson, RN is Primary Nurse. ll2 02:49 Missed attempt(s): 22 gauge in right antecubital area. Bleeding controlled, band aid ll2 applied, catheter tip intact. 03:10 Inserted saline lock: 22 gauge in right wrist, using aseptic technique. Blood collected.ds4 05:18 No provider procedures requiring assistance completed. IV discontinued, intact, ll2 bleeding controlled, No redness/swelling at site. Pressure dressing applied. 05:19 Patient has correct armband on for positive identification. Call light in reach. Side ll2 rails up X 1. Pulse ox on. NIBP on. Administered Medications: 03:20 Drug: Zofran (Ondansetron) 4 mg Route: IVP; Site: right forearm; ll2 03:21 Drug: morphine 4 mg Route: IVP; Site: right antecubital; ll2 Outcome: 04:51 Discharge ordered by . [facility] 05:18 Discharged to home via wheelchair. ll2 05:18 Condition: stable 05:19 Discharge instructions given to patient, Instructed on discharge instructions, follow ll2 up and referral plans. medication usage, Demonstrated understanding of instructions, follow-up care, medications, Prescriptions given X 1. 05:20 Patient left the ED. ll2 Signatures: Sherman Knight, RN RN Jarad Riley ds4 Bridgette Anderson, HAIDER MALONEY ll2 Ciro Salinas MD MD [facility] Alcie Kumar am4 Corrections: (The following items were deleted from the chart) 05:19 05:18 Discharge instructions given to patient, Instructed on discharge instructions, ll2 follow up and referral plans. Demonstrated understanding of instructions, follow-up care, medications, Prescriptions given X 2, ll2
[2020-06-13 05:35] VITALS: BP 155/62; O2SAT 95
== END 2020-06-13 05:20 | disposition home or self-care (01) ==
LOC: ER 01:04
DX: L03.116 Cellulitis of left lower limb (principal); Z88.5 Allergy status to narcotic agent
CPT/HCPCS: 36415; 80048; 80076; 81003; 82947; 85025; 99284

== ENCOUNTER 2020-07-03 10:37 | Inpatient (IN) | payer OTHER ==
--- OUTSIDE RECORDS SUMMARY | 2020-07-03 10:41 | XMS REPORT | Continuity of Care Document ---
:[address] [facility] t Address [address] Brennan [address] [place] [id number] Care Team Providers Name Role Phone Pastor Suero MD Primary Care Physician Reny Oglesby MD Attending [...] Expiration Date Sour ce Number MEDICAREMEDICARE A [id number] 2001 ROSETTA Crump [id number] 2001-P 00:00:00 - Medical resentMedicare Center MEDICAIDMEDICAID OF [id number] 2017 ROSETTA Crump [id number] 2017 00:00:[facility] Problems Condition Condition Condition Status Onset Resolution Last Treating Co mments Source Name Details Category Date Date Treatment Clinician Date Biliary Biliary Disease Active [facility] Hyperlipid Hyperlipid Problem Active [facility] [place] [facility] Hypertensi Hypertensi Problem Active [facility] [place] [facility] Diabetes Diabetes Problem Active [facility] [place] [facility] Follow up Follow up Problem Active [facility] [place] [facility] Allergies, Adverse Reactions, Alerts Allergy Allergy Status Severity Reaction(s) Onset Inactive Treating Comm ents Source Name Type Date Date Clinician Codeine Drug Active Nausea And [facility] Hydrocod Drug Active Nausea And As per [facility] one-Acet Allergy Vomiting, 08 patient, Romina kes - aminophe Other (See 00:00: " it Medi sarah n Comments) 00 wears on Cente r my stomach" hydrocod DA Active [facility] [place] Family History Family Member Diagnosis Comments Start Date Stop Date Source Unknown Family Family history of Other Uni versity of Member diabetes mellitus [place] [facility] Unknown Family Family history of Other Uni versity of Member hypertension [place] [facility] Unknown Family Family history of Other Uni versity of Member Heart problem [place] [facility] Social History Social Habit Start Date Stop Date Quantity Comments Source History of tobacco Current smoker [facility] History SDOH [facility] - Alcohol Std Drinks Medica Center History SDOH [facility] - Alcohol Binge Medical [place] [facility] Sex Assigned At [facility] St Romina kes - Medical Center Cigarettes smoked 2019-11-18 2019-11-[address] [facility] - current (pack per 00:00:00 00:00:00 Medical Center day) - Reported Cigarette 2019-11-18 2019-11-[address] [facility] - pack-years 00:00:00 00:00:00 [facility] Tobacco use and 2019-11-18 2019-11-[address] Romina kes - exposure 00:00:00 00:00:00 Medical Center Alcohol intake 2019-11-18 2019-11-18 [facility]er [facility]00 of alcohol Medical Center (finding) Alcohol Comment 2019-11-17 2019-11-[address] Romina kes - 00:00:00 00:00:00 Medical Center History SDOH 2019-08-15 2019-08-[address] [facility] - Alcohol Frequency 00:00:00 00:00:00 Medical Center Tobacco Comment 2019-08-15 2019-08-15 quit [address] [facility] - 00:00:00 00:00:00 ago [facility] Smoking Status Start Date Stop Date Source Former smoker 2019-11-18 00:00:00 2019-11-18 00:00:[address] [facility] Medications Ordered Filled Start Stop Current Ordering Indication Dosage Frequency Signature Comments Components Source Medication Medication Date Date Medication? Clinician (SIG) Name Name atorvastati 2020-0 Yes 40mg QD Take 40 [...] daily as needed . lipase/prot 2020-0 Yes [id number] Take [facility] ease/amylas 8-12 [id number] 36,000 [facility] - e (CREON 13:03: 3D [...] I St (CARAFATE) 8-12 by mouth 4 Imni es - 1 gram 13:03: (four) Medical tablet 21 times Center daily. Vital Signs Vital Name Observation Time Observation Value Comments Source Systolic blood 2019-11-19 11:32:00 126 mm[Hg] [facility] Diastolic blood 2019-11-19 11:32:00 60 mm[Hg] [facility] Heart rate 2019-11-19 11:32:00 57 /min [facility] Body temperature 2019-11-19 11:32:00 35.72 Alysia [facility] Respiratory rate 2019-11-19 11:32:00 20 /min [facility] Oxygen saturation in 2019-11-19 11:32:00 98 /min [facility] - Arterial blood by Medical Ce nter Pulse oximetry Body height 2019-11-18 06:58:00 157.5 cm [facility] Body weight 2019-11-18 06:58:00 69.355 kg [facility] BMI 2019-11-18 06:58:00 27.97 kg/m2 [facility] Height 2018-05-24 10:25:00 62 [in_us] [facility] Physician s Weight 2018-05-24 10:25:00 154.9 [lb_av] [facility] Physician s Body Mass Index 2018-05-24 10:25:00 28.33 kg/m2 Unive rsity [facility] Calculated [place] [facility] BP Systolic 2018-04-26 10:21:00 127 mm[Hg] [facility] Physician s BP Diastolic 2018-04-26 10:21:00 76 mm[Hg] [facility] Physician s Height 2018-04-26 10:21:00 62 [in_us] [facility] Physician s Weight 2018-04-26 10:21:00 155.6 [lb_av] [facility] [place] [facility] Body Mass Index 2018-04-26 10:21:00 28.46 kg/m2 Unive rsity of Calculated [place] [facility] Temperature 2018-04-26 10:21:00 97 [degF] [facility] [place] [facility] Heart Rate 2018-04-26 10:21:00 73 /min [facility] [place] [facility] Procedures Procedure Date / Time Performed Performing Clinician Jennifer e POCT-GLUCOSE METER 2019-11-19 07:32:00 Jam Davalos [facility] COMPREHENSIVE METABOLIC 2019-11-19 06:19:00 Padmini Armando [facility] CBC W/PLT COUNT & AUTO 2019-11-19 05:32:00 Padmini Armando [facility] HEMOGLOBIN A1C 2019-11-19 05:32:00 [facility] POCT-GLUCOSE METER 2019-11-18 21:05:00 Thang Oden [facility] REPORT OF PROCEDURE - 2019-11-18 11:51:31 Reny [facility] ERCP 2019-11-18 11:08:00 Reny [facility] ERCP,PAPILLOTOMY 2019-11-18 10:18:00 Reny [facility] PROCEDURE W/ C-ARM 2019-11-18 10:18:00 Reny [facility] ERCP,BALLOON SWEEPING 2019-11-18 10:18:00 Reny [facility] POCT-GLUCOSE METER 2019-11-18 07:34:00 Reny [facility] REPORT OF PROCEDURE - 2019-08-26 13:44:33 Reny [facility] ENDOSCOPY [facility] POCT-GLUCOSE METER 2019-08-26 13:14:00 Otmike [facility] TISSUE EXAM 2019-08-26 12:43:00 Otsara [facility] UPPER ENDOSCOPY,BIOPSY 2019-08-26 12:18:00 sara [facility] UPPER 2019-08-26 12:18:00 Otmike [facility] - ENDOSCOPY,SUBMUCOSAL [facility] INJECTION UPPER 2019-08-26 12:18:00 Otmike [facility] - ENDOSCOPY,ULTRASOUND [facility] POCT-GLUCOSE METER 2019-08-26 11:28:00 [facility] Plan of Care Planned Activity Planned Date Details Comments Source Future Scheduled 2019-12-[address] [facility] - Test 00:00:00 (#1) [code = [facility] INFLUENZA VACCINE (#1)] Future Scheduled 2003-09-[address] [facility] - Test 00:00:00 (procedure) [code = [facility] 97294928] Future Scheduled 2002-10-[address] [facility] - Test 00:00:00 WELLNESS (YEAR 2 or [facility] FIRST YEAR if no IPPE) [code = MEDICARE ANNUAL WELLNESS (YEAR 2 or FIRST YEAR if no IPPE)] Future Scheduled 1979-09-[address] [facility] - Test 00:00:00 malignant neoplasm Medical C enter of cervix (procedure) [code = 970576853] Future Scheduled [address] [facility] - Test 00:00:00 malignant neoplasm Medical C enter of breast (procedure) [code = 083721208] Future Scheduled [address] [facility] - Test 00:00:00 malignant neoplasm Medical C enter of colon (procedure) [code = 878621128] Encounters Start End Encounter Admission Attending Care Care Encounter Source Date/Time Date/Time Type Type Clinicians Facility Department ID 2018-05-24 2018-05-24 AppointRAFAT Raya [id number] Univers 10:30:00 10:30:00 jus SOLIS, Surgery andery charles [place], [place]ici GrayO. ans 2018-04-26 2018-04-26 Appointmen MARISELA, UTP UTP [id number] Univers 10:15:00 10:15:00 t; nelson SOLIS D.O. [place] WILL, Physici D.O. ans 2018-04-19 2018-04-19 Appointmen MARISELA, UTP UTP [id number] Univers 10:00:00 10:00:00 t; nelson SOLIS D.O. [place] WILL, Physici Riya.O. ans 2018-03-27 2018-03-27 Appointmen MARISELA, UTP UTP [id number] Univers 10:30:00 10:30:00 t; nelson SOLIS D.O. [place] WILL, Physici D.O. ans 2018-03-22 2018-03-22 Appointlindsey ANTONIO, UTP UTP [id number] Univers 10:30:00 10:30:00 t; nelson SOLIS D.O. [place] WILL Physicjoyce CastellanoO. ans 2018-03-06 2018-03-06 Appointmen FREDERICK, RAFAT UTP [id number] Univers 08:30:00 08:30:00 t; CYRIL MACK M.D. i ty [facility] [place] [facility] [place] [facility] 2018-02-14 2018-02-14 Appointlindsey MARISELA, UTP UTP [id number] Univers 08:15:00 08:15:00 t; nelson SOLIS D.OIggy [place] WILL Physici DIggyO. ans 2018-01-11 2018-01-11 Appointlindsey MARISELA, UTP UTP [id number] Univers 10:30:00 10:30:00 t; nelson SOLIS D.O. [place] WILL, Physici D.O. [facility] Results Test Description Test Time Test Comments Results Result Comments Source Hemoglobin A1c 2019-11-19 09:28:00 Test Item Value Reference Range Interpretation Comme nts Hemoglobin A1C (test code = 4548-4) 8.1 % 4.3-6.1 H Lab Interpretation (test code = 34283-1) [facility] [id number] 09:28:00 Test Item Value Reference Range Interpretation Comments HEMOGLOBIN A1C (MAN) (test code = 8.1 % 4.3-6.1 H 368) POC-Glucose [id number] 07:44:00 Test Item Value Reference Range Interpretation Comments POC-Glucose Meter (test 130 mg/dL 70-110 H : TE STED AT [facility] code = 1538) [address] [facility], 770 30: Efficiency Engineer/Techni wendy ID = [id number] for KRISSY FERRER Lab Interpretation (test Abnormal code = 40876-6) [facility] [id number] 07:44:00 Test Item Value Reference Range Interpretation Comments POC-GLUCOSE METER 130 mg/dL 70-110 H : TESTED A T [facility] 6720 (MAN) (test code = [facility], 1538) [address]: Efficiency Engineer/Techni wendy ID = [id number] for KRISSY FINNEGAN Comprehensive metabolic [id number] 06:55:00 Test Item Value Reference Range Interpretation Comments Protein, Total (test 6.8 See_Comment [Autom ated code = 2885-2) message] The system which generated this result transmit migdalia reference range : 6.0 - 8.3 gm/dL . The reference range was not u sed to interpret th is result as normal/abnormal . Albumin (test code = 3.5 g/dL 3.5-5 28328-4) Alkaline Phosphatase 119 U/L 40-150 (test code = 6768-6) Total Bilirubin (test 0.5 mg/dL 0.2-1.2 code = 1975-2) Sodium (test code = 136 meq/L 637-101 0769-2) Potassium (test code 4.0 meq/L 3.5-5.1 = 2823-3) Chloride (test code = 105 meq/L 98-107 5-0) CO2 (test code = 26 meq/L 22-29 8-9) BUN (test code = 17 mg/dL 7-21 3094-0) Creatinine (test code 0.77 mg/dL 0.57-1.25 = 2160-0) Glucose (test code = 162 mg/dL 70-105 H 2345-7) Calcium (test code = 8.8 mg/dL 8.4-10.2 36282-3) AST (test code = 24 U/L 5-34 1920-8) ALT (test code = 27 U/L 6-55 1742-6) EGFR (test code = 76 mL/min/1.73 [place] [address]-3) NOT ACCURATE CREATININE CLEARANCE IN PREDICTING GLOMERULAR FILTRATION RATE . ESTIMATED GFR I S NOT APPLICABLE FOR DIALYSIS PATIEN TS. YATES (test code = TRUDY) Efficiency Engineer ID - PIAYA L Lab Interpretation Abnormal (test code = 75113-9) [facility] [id number] 06:55:00 Test Item Value Reference Range Interpretation [...] S NOT APPLICABLE FOR DIALYSIS PATIEN TS. Efficiency Engineer ID - PIAYA LCBC with platelet count + automated [id number] 05:55:00 Test Item Value Reference Range Interpretation Comments WBC (test code = 6690-2) 13.1 See_Comment H [A utomated message] The system [employer] generated this result transmitted ref erence range: 3.5 - 10 .5 K/L. The refe rence range was not u sed to interpret this result as normal/abnor mal. RBC (test code = 789-8) 4.21 See_Comment [Au tomated message] The system [employer] generated this result transmitted ref erence range: 3.93 - 5 .22 M/L. The refe rence range was not u sed to interpret this result as normal/abnor mal. MCHC (test code = 786-4) 35.1 See_Comment [A utomated message] The system [employer] generated this result transmitted ref erence range: [...] See_Comment [Aut omated message] 777-3) The system [employer] generated this result transmitted ref erence range: 150 - 45 0 K/CU MM. The referen ce range was not u sed to interpret this result as normal/abnor mal. MPV (test code = 9.5 fL 9.4-12.3 57290-7) nRBC (test code = 413) 0 See_Comment [Aut omated message] The system [employer] generated this result transmitted ref erence range: [...] H [Aut omated message] 670) The system [employer] generated this result transmitted ref erence range: 1.56 - 6 .13 K/L. The refe rence range was not u sed to interpret this result as normal/abnor mal. # Lymphs (test code = 1.95 See_Comment [Auto mated message] 414) The system [employer] generated this result transmitted ref erence range: 1.18 - 3 .74 K/L. The refe rence range was not u sed to interpret this result as normal/abnor mal. # Monos (test code = 0.81 See_Comment H [Autom ated message] 415) The system [employer] generated this result transmitted ref erence range: 0.24 - 0 .36 K/L. The refe rence range was not u sed to interpret this result as normal/abnor mal. # Eos (test code = 416) 0.02 See_Comment L [Au tomated message] The system [employer] generated this result transmitted ref erence range: 0.04 - 0 .36 K/L. The refe rence range was not u sed to interpret this result as normal/abnor mal. # Baso (test code = 417) 0.01 See_Comment [A utomated message] The system [employer] generated this result transmitted ref erence range: 0.01 - 0 .08 K/L. The refe rence range was not u sed to interpret this result as normal/abnor mal. Immature 0 % 0-1 Granulocytes-Relative (test code = 2801) Lab Interpretation (test Abnormal code = 88359-4) [facility] W/PLT COUNT & AUTO [id number] 05:55:00 Test Item Value Reference Range Interpretation [...] PERCENT (BEAKER) (test code = 2801) POCT-GLUCOSE [id number] 21:17:00 Test Item Value Reference Range Interpretation Comments POC-GLUCOSE METER 255 mg/dL 70-110 H : TESTED A T [facility] 6720 (BEAKER) (test code = TERRI Hirsch [place], 1538) [address]: Efficiency Engineer/Techni wendy ID = [id number] for ABHILASH MARTI [id number] 11:22:39INTRA OP IMAGINGReason for exam:->abnormal imaging Fluoroscopic unit utilized for a procedure performed in the OR. No interpretation was requested. Refer to the operative report for findings. Refer to PACS for patient radiation dose information.FL [id number] 11:22:39 Interface, External Ris In - 11/18/2019 11:22 AM CDTFluoroscopic unit utilized for a procedure performed in the OR. No interpretation was requested. Refer to the operative report for findings. Referto PACS for patient radiation dose information.[facility] [id number] 07:45:00 Test Item Value Reference Range Interpretation Comments POC-GLUCOSE METER 155 mg/dL 70-110 H : TESTED A T [facility] 6720 (BEMARBELLA) (test code = TERRI Hirsch [facility], 1538) [address]: Efficiency Engineer/Techni wendy ID = [id number] for ED CRISSY, KATIE Tissue [id number] 09:36:00 Test Item Value Reference Range Interpretation Comments Case Report (test code Surgical Pathology = 104) Report Case: [id number] Authorizing Provider: Vinnie Oglesby Collected: 08/26/2019 12:43 PM MD Beatrice Ordering Location: [facility] Endoscopy Received: 08/26/2019 01:56 PM Services Pathologist: Isac Cummins MD Specimen: Biopsy, Gastric, gastric polyp DIAGNOSIS (test code = c1wepTOxQVQlf1bcHHHyvW 3220) FuZzEwMzNcZnRuYmpcdWMx WPevunNlYVdnj3PaJ0QhYl AwMFxhbnNpXGRlZmxhbmcx NVWzHAD8doEgABSjMFrmZT UpMRlpSc5hiXIakLumZnIe QRFqe0pqhuHPiwaijSw8x3 epLEJbScD3uKCxTBndG9nd dnShaEZeJXZaFSd4aQ94VC GjeO5aqNZhQAypskKoCfR9 JBozEVWeGfF1RJKgqVDxQO NlY8acTACfHNveMJWaOVtx lYUzHAC1vBsqo8B1iABftN XhwYpkAyRsGqYqABULe2Bc PBa9zTknS0AmRCOcKjA3fV QgUGFyYWdyYXBoIEZvbnQ7 fC68OVfpodV2nMHej7Ees0 9ck198aV3zgJTrDZN2JSRs NUXsyZXgDXPcZNY5XMRixO JmX1z7BvUsrHMiW5L0VuDn wMMsY0W6ApTldCGxN2P7Ef HfaOIeWBFcpUUgTs7grCBh xIFwlm0aln76VRI4j2NpoV ltOFY0EIE5ErRaSq4jhNJf GGZyOO7xNjArbDStNEHcir 41uNqaFLpckcZyqE9sAnKh YT6moXpha43uWZTrFX1qfP 7yvm3jwyCbKFxsoEQrdLO0 kjlpQNC9MXVbhhJrm9Yvv1 jbXrOijiVyW5ynR8IrOWTp VISxCLCcUkSszrCcf8Kcb4 RvcSFgjGs5e9luIJCtTRCd lUjos2wiVLB7FVUyP9G2xM Ahq3roVZsiSGSdaJZ8bsun NCczZXFmszW9jhjgRZtoXH QbdLN1cfkbXDjnHUJrFzL8 rvwwLCajFPSjSWQ4GUiyg9 64JPX3YSqpTahqGZbtRQOr bmNvbnRccGduZGVjXHBsYW luXHBsYWluXGYwXGZzMjRc gWXeEXorn4ZppmKkgEbgUL AvQYi3uyOlxyrnqQa0xQWk mLemHAJbgNevtG5nZmCfJc NuCPduYY9pEALeJ1rgwPMt GVXjFPPsP8ciGpCggS3ynP xmMVxmczIwIEEuIFxwbGFp blxmMVxmczIwXGxhbmcxMD FwIYkdG3izNoKmJYBdjJmk OOfvy7VjLVVyPOScPvqxti RsMVz9htOjPNHQW59CS4bo IFxwbGFpblxmMVxmczIwXG eoeirsFDNiOGdgJ3mqJuFi AWTxsIemTIgfo4KvOALfZU YcXyQfVO2QPDIzNOnruQIg blxmMVxmczIwXGxhbmcxMD LsCJihN8owInDgUYLjdDvu SUefh4FyBETkOXAkJfkebt XqBJk0psVwRCSLP1YVYRIg YWluXGYxXGZzMjBcbGFuZz EwMzNcaGljaFxmMVxkYmNo MHQkUAnxY7fkLgLpFsIwAC BZXHBsYWluXGYxXGZzMjBc bGFuZzEwMzNcaGljaFxmMV fpHpNeVVSgQHvwX6izZuCp T9CdRGIdHqXbvVYzV2gvAr zsQKDwqStyyP2nJeXzCuNb DCmdDN0zDELrY8ccfWCmHY NbXWRpE4htMdHoiY4dlRbv TZrulqKxHBDuoXezwS2fIw YoQrSsLRzdVO5vUSLeM1ai kFUaCKKuUYIfG6kiJiIorF 9jaFxmMVxjZjJcZnMyMFxs dHJjaCAtXHBsYWluXGYxXG ZzMjBcbGFuZzEwMzNcaGlj aFxmMVxkYmNoXGYxXGxvY2 hcZjFcZnMyMCAgXHBsYWlu XGYxXGZzMjBcbGFuZzEwMz NcaGljaFxmMVxkYmNoXGYx CMakM4gtWzHlL5NsBYUjMa UjdXGgW3rjMWIEOBWEXJGR OQCEM0FuQ9rQPLQfgPdfmZ 9lYcGqYdObUAdiLH9fOBBh S1ryhVHgGFIoMHRpS3jbQb JjsH7znHfzSQijvoUpGNGA FEmWE7nXQKIHXzRZMOVGWS nQLWPPLMzNY3nXRJBlqyYf XHBsYWluXGYxXGZzMjBcbG FuZzEwMzNcaGljaFxmMVxk BrUuGBTbOYayT6ruJfUvG7 LuBNMrIjFqhCSyY0yvPCap bGFpblxmMVxmczIwXGxhbm swKKQtFZpcN6wvGxAnFGSt pLmwZZfha9UqQJTqTIMgHw AgIFxwbGFpblxmMVxmczIw TEhqtqshYYEpCTnuC6kyVp XdWNMyjXtjDOquc4FuDKHr JXWnBfkaqhQsKQu1twWyRF LUXRbETBkAKMYRE7MbJUBB RCPDOnORGXCVMEKTYU8QIC UEPsvKEcxSQMEaAkwdM4GO RPqXKzBVRDZWRsrvO1WYCH 4bdZUkNWJktfKyo5IcRYQh ZFU6OZypNLtwlLeunAVmmr xpADpgugJ7QZLiFPemOODp XGZzMjBcbGFuZzEwMzNcaG ljaFxmMVxkYmNoXGYxXGxv P9ngHvJeVqTfDUKpIJApGM luXGYxXGZzMjBcbGFuZzEw MzNcaGljaFxmMVxkYmNoXG IlDOwhI1veJzSwW4PwRGTu IjDhsDWbT6opRLkmcVAlzn xmMVxmczIwXGxhbmcxMDMz ZXmwZ8jgFtSjBMBzyTmpNQ bgl6AsWIGtQKUyBlMaFFgf bGFpblxmMVxmczIwXGxhbm qaBDRtRVdkJ4omObXxMCSz fAyiFVyjc9GsWOYgGFMcZw aktwOqJUa2eyNpSMLAQGjZ SMvHEZNVY3DmAT6YCCKYHS 8IVIQBHGOYRVtDU2rTTXVR XXIFHJIMOYMuXV7GBByHAe VKG8ezfIijxF9cMcVwGdAg YRadGR8wYEEdS3ksfKOcYL JiGOQxM5qrQtBriR0nxDtl JHgfqpVmMHAbnuuqERS3n1 xydGYxXHNzdGUxODAwMFxh bnNpXGRlZmxhbmcxMDMzXG B0lpMxXQLcCAvnSUCbFGya Ov4kqEPscKljTdOoBAWfo2 kzcfTYgkhupQk0e1kqCPRo OcG0fIMjQQdnL0ypnjLoqM FgRQFlOLn7hT59JLThiV2z aGGzYYywovPdWzG8XDhiPO ZqJkE3PZFbkTQbZYTwJ7rm ZWQwXGdyZWVuMFxibHVlMC N0jAgbs0P2bYWmnEUtwRjz KkIrKkHjDvCMj9CnCMr5hF gjY9WpNDQfYuG7oHVaOKPt TWewLYYrMOTttwU2gK78JE znjpQ3tRLtl7Cee69zi070 lG3qhJXbXSF4PAHlYFCqvF EzBPMoOPB7ZECkqYSnM6gf LVZxQL2tonqvJDtuKPzoSP HvgZH3UTXcoDMsC4OsKOBo DFjhOCKlngu1XpMfCn4khB KizKosXCgpx9oyt2vcjZXt Pbr8QOCdKkPgKegxGSxax4 Ozr1qnGPIsbo0vODS6dEAc nKbgg7P0aUWiXSBvmHVcKS YaBR9vnVFrSAKccW2pejsy XHBnYnJkcmhlYWRccGdicm SzMg4kzIjeRDI9BIpdM6yp sN4vInR6UWrtN0zpqI0wWZ y7JHtfVTFkqMN8raV2RCPu nRQfD1CuiO9qRXJfBG4ace a0d5leTHP8LCqoWNWbBsO9 guD7SKLzwUPrTROxsYrrLR dsb894DYT7KwRcKRAhz5Fq G3OdwKtpM50eiXciZ66yZA XxsPjkgD5alZprdV6xXmWx BnWfEFypdQnqUW7xAECsY7 cbwFUnTSLgYTEbN3owOvAi qR8niHkjNKukalBdXHZdPg r0AEHhhJXcDORjQfd9CDGo ACMnP91wjawkFJK1zY2ge3 jue6LzTHhlDMX2ZXXiq78k VGijprC9GRsfLt5bBqVwYX Y5LEwpNXP0rP== CPT Code(s) (test code h9htoKTeHBBkbJYyGdDaSZ = 3357) LuLZPke5hkKHGsePEkIeAf MzNcZnRuYmpcdWMxXGRlZm Wse2stw921gTUyc2jpLQNt LrX3bRCsUZWijEGaY535j5 czt3xriqOeeRP8IIWdGTP0 JJorjyLuraA0KVxdxJCgPt B4FReumtUiCFtmscPrvrXf Dos3ZORaP518CYI2sGbqk4 smGPX6EVOkABXnIxIvIn2w jWFfI673ZKEfRXSUQOIatB p3OMUjsoDtbpWwcZPUg294 T456b8oeAXOdhfYfvZbNbp zad9yqL665DULuaUBujjBz PlPfLAVvfZJduMA7PQCkGD 2ebkqcScSmAE9komytSwNh SS2yobe3QhNgAM0ernfkSu OxMZjfTVMnsfjtBNZwd0Va atgkWU8vO9Xne9T6gV8zvI HiLKVshYZyLvXcMKGuvx8c sTPmNDvqx8UhWEE9hmG7kW FrfYZaUYHoMT93Vdjip0Jp DrtqKTC2FQKhenOth3Vpn6 fuHdMukdTjW6vhA9LrLKPg ZOUhSDDnAuTbwxQce9Jkx9 SffVStsNf7j0maNKLwBQVh kJgxs1yuTRR7IGReT8K6sH Bvy1jaYOwyGRTcdIQ0kumi SJnlFUUjfqP4kewhFNjvLO BwfUI6jagpYPkxEYGnXwC4 kxgeNGlcKDTrJQE9LHmti4 18BDT3BIarYwfvCKxqBPNd bmNvbnRccGduZGVjXHBsYW luXHBsYWluXGYwXGZzMjRc lPxhfSdxpN8yReFtTrWzGD reQV3cBNOwN9jhyYEpVKEu KFFtA1mxLrSlmO3msXanMQ imfqWpCFq9AbN7NZLufhU5 ODMxMlxwYXJ9 CLINICAL HISTORY (test c0ysoNDdTKEpeXAyZuAfRZ code = 335) AtKGUny5lyVBKbcTQiJnSk MzNcZnRuYmpcdWMxXGRlZm Rvd7ilw406uZSlf0iaTRTq EmJ2gWCySGWjsZDqT865RQ DaJAbmb1icl7HwDUQcmQOz z7U4PLLZaftwoDg8oAldU6 2wz0Y9WpwmL7hnPPYzRZfl GOObAUmucOElAUO6QNTfEC G2PUechnBdjcC9ZKkpiUNp WmD3SPm2q4xclQznJYVwIY X1q3sxCEfhhqXsGZ0fbj0e cBm9s8myhvUsIQBqPCBgiG KMSVWfM0DazIxkIf4fiVl7 tIhdJaiyOCM9Jka2BD9ude 10suk6rKleIJVphyftXtQ2 WPriCWSlfxuzJAx7ENopYL JnbDcyMFxtYXJncjcyMFxt YXJndDcyMFxtYXJnYjcyMF swIQGlDEB3URioq272SSG2 ERmkw5ljt2mucFWrNxm2EA LzIlZjSxqcNBkyg2Jvu5vs LNRtnf9uQHN7hXRmkQuyf7 P7jHVkCOHwtNCsdmZqGXAh YzI6WKerSR3cic38NDCsQK V4yp6gsNYvmCxjygGyaUJx VQjlP8WoPQXzy166GDVgY1 YfYXUvx3T6hiBgUaVeOUSv rZY8gbG0VVMtUSz3pGDntd M7waQwyUAmO6rdcD22HoMx mHXqT8KzcX31YtJbaEKbX4 XwfI96NfEgxNQfR5MryN17 LjFwnEToILEwdNEhIw2gxH QixQMni8SelQRrPXweK93b c196NLXaxqQsI7knzZAdhd xwbGFpblxmMFxmczIwXHFs XHBsYWluXGYwXGZzMjBccG vpdJ3jJrIoWdIqVDXGzd9x RNE2hgT6ZINayMToKDMqGJ 3cI81nyNkvCqhlbLV9VTSj omCDmqWpIE1dQXRbx1DqqI ZcxMLqjf9pbIB2ANXyfPOx ZVEdteNoQQV8wNOkfuRvxW FyfQ== SPECIMEN SOURCE (test e7rapZNpAOGigANnQhBhBE code = 3377) RfULYnn2hrXANsgNRqUoCh MzNcZnRuYmpcdWMxXGRlZm Qth8txo400rZUdq1geIOVp XuS6uKZyLWQwyDVjW192d6 kaf9lfqsJdnHT1JFAgBIF3 WZckmtVjqwQ3BPgatBUqAz K5GXzsndBgOWzrdjXspxBk Vpi8FDRiM099XGS2sDtwn2 qfOVQ5IGJtBKZzZxEjTd5n eCWaH549ZLLtTCCCDCAiaM d3QUDlyeSibcNpqZRIx602 O962a9gkEFJwksMiiLuPgt lqk9noL753DKVmbOKbccUk DcMpXUQtwNEosUR7EKZtPC 4xwvqwPpOxEE1brrzxHzNx ZT6dojm8QsXgZO0orwnuTn LvZFcoWVBhcbapFCSak8Th intaQV5yY5Fji4W2fT2zaE DwDSMygFSjRjXwXPTwfw1y pDQrUQxam7YsHLX9kbH8rB MimPPeGTToJJ44Qcwqh2Ab VfuhAOC3JEArbfNlg9Jnv2 baAxByzoBkO9hyB0JwZQJo SCMiYYDoNoRmnaZxa8Roc4 OazVDhqLs9t4cpRATiDLUb pAcel2rcXCR3DLQdX3P5hI Igi4toLDxnPJNvrDL4ahzl OZahQCKllnV0pzzaJXeuBF TukQQ3pqjfJVzwEJPjSqG3 jiosANedNRTpXIF8SAfef6 52JTR8UXrwQhklAJuqPWUh bmNvbnRccGduZGVjXHBsYW luXHBsYWluXGYwXGZzMjRc jJaliHeisO0gJwTjWrBgYL jsLX7dUFLlA8pysTSwXXDu BWKaE6xgJvTlpF7xyNkzPX wwbmCdZHFxHZCtu5JubEyh U1UnvEOqJ2hoBAV7 GROSS DESCRIPTION (test o9srdKLvVZQgoHYjGgEpAN code = 3366) BrXYNyo0dvFPAxqMPoNlZj MzNcZnRuYmpcdWMxXGRlZm Scf1ahr696yDOgy8daRBXt IcG6jNLvJOPnaRZdP781PX LuZVxqn6fpk7HcZSDagJXl m1B4GGKIjrtmkOq6oOpyP7 2jq9J2AnkyJ1kqZSLzZQgp NYExFJukqZSoHBI2LBIcGW H0VZgfqlKpzkT0ARyvsTPu IpC3QJp4f9imfAkiJNOpQW B6e1jeHQkduaJjMI3qte8v sJe2w8rvlbWdZDSvLFKuyI CXTMUyC7EnwOkdHc7jmYa3 uYebEeviHOQ6Wuq5GT9bks 59fmx7nNblUOScdggnVhN7 PNngLLPhvhcsEYj0MKplCN JnbDcyMFxtYXJncjcyMFxt YXJndDcyMFxtYXJnYjcyMF qdSVXpTOX2ASpwl238LIY3 MVfts8yav2zzwNKwOxb9LU VoEhGyXqnvEJyyv4Umt0mr PMPnni2kNSE6lLLhnXwrm6 O6jPCjQSYijZSpwnLeTACm KtT2ZOnxPZ6mlj86NVWzVG U0wv6dxRTujCinxpAwhIGz TBsmS5YlCIYlv395DHItE3 DiONWpo0E9tsDmBqLuVMGf iJP4jxY6SMVoJVr6jQVpwn L8kpOnrSRpU1gcuX03PuHd fCWyR7SasQ17UaSjwXUkF0 RkbW76UhIjcBVoW2OjcY01 OdGlxXYzXGPawAFpZr4btU LbeASvi0VnfBKjADntH04j e505AANozwJsJ8rfnRSfpu xwbGFpblxmMFxmczIwXHFs XHBsYWluXGYwXGZzMjBccG ygfO5uBcVwUfApMLIQXpQp XHBsYWluXGYxXGZzMjAgUm MtFJr8UQBluD0qIz1xrPTi yC5ouSBvFAapVWY3aYZsLT EnJRTaSMQoXF71L7JkkcTz FIhsXOBwRAUihK4uNP97eO NvrlFhkrQeyHiptY3pDuGm DjEyLQQdLpgyj1FsdJCkVw jmpHO1OovrFVReSGqkQEDa ATItCxIki2n2hYU6lDIiDC FeaXJir37wgPWpAEPcheqv dGlvblxwbGFpblxmMFxmcz ChXNEjG9IgbWMfWlTda2s8 fUCarGTdv77yFXtqiZAvlg xmMVxmczIwIGlycmVndWxh clxwbGFpblxmMFxmczIwIC T3VK8fiUzhqnMavKYmUKRi QyFyqVAsq5IkGSXetgXlVR Myl50dmBF8rRWxxWLgpMYn b9GkkP2yAETyDOC7AKVkLa Z1CXUoVvWiaN8zWQwnoUWc blxmMVxmczIwIFRoZSBzcG FbvA9knvHgrbNviXCelGO9 PPHqpG6ciH90pzBci2vem3 dpbmcgZmlsdHJhdGlvbiBp wrNmISOoOEB9ACadqKVazx ggTJwmnjMhGWBBAQ9aErWk cGxccGFyfQ== MICROSCOPIC DESCRIPTION o9chvXNsJBPpzGZjBwDkOR (test code = 3371) RfYNYhi6uxRUGmpGVgRuYl MzNcZnRuYmpcdWMxXGRlZm Cdn8taz051rJEun3auWRGk AjQ7gZFeYOArmCRoZ634JU CgGQubr0maj4LmOGSixHXg y4U2QIUFbwemwVn2fLteM3 0lj2J6JyckC5rbDTBsDPzu HCDdGKqytGYmDHA5SLPxXW G8KZbstwNtnpJ7BYdiqQQo OsL8JWc7e2exyWmlJCXeLJ O7b3zpLUysibZrBL3tpk4o hGw4x1knexRsZDCmIPWwuM ZDTJTxW6KyoAtwMe9qnPx5 cIsqQdvxDRA7Yxn0OI1tzo 40xpg3hHusKAGoiyxdMdX9 RAgkHQAcupkbNGg0OUmrTY JnbDcyMFxtYXJncjcyMFxt YXJndDcyMFxtYXJnYjcyMF wdKDLsQYT0XOupl798HUY9 PFjxg0qfv6wqiDSnMkv3VC EdUiShFgtoZBgvl3Vfe0xx ATDbrb3aPGX6aETluBnxu8 X1fVMmCVFdxRLtrvDtVFSr sf43dNLyfUQasPBgna8gva UdyWNbxYUzYPO1xOAwjxRb DZEkvDUlHQIfIE9eqAXoIN PosA9ymjnxLTLlJaXwntvl DKKxsLfkdfTfCt4peYqiJN O0TIlqW1kfxX7qEdE2SOcl A9iszU9tUIs4CEjjtGP6KL HxbI1uQS9ozcjij5heDxYy XG9rttecw0ucZxTrXM1lfk p9i0njKfFgSB7debqmq1sp NzIwXGhlYWRlcnkwXGZvb3 ByrgmlANKds8LpS9CghOsx B38vlJkwJ77eEQDokGhaiP 3jvDrlsK0bWoThIlJmCUpj bFxwbGFpblxmMFxmczIwXH BsYWluXGYxXGZzMjAgUGVy As5qvZNqAdceTOJmgJSdtJ == SPECIAL STUDIES (test o2gtlXBgQBJbk9xoWSTbyM code = 3376) FuZzEwMzNcZnRuYmpcdWMx PIdgjvMzLWmjt2KcL9UvUy AwMFxhbnNpXGRlZmxhbmcx DYJrWKQ9duRxJKYqRSovCD AqZGqkTc2iwKDppBdzZsFy IOTlb6yharJZpqzqqIg6c0 brYUIsZrR3oDRdLVguA6qw oeGyoCHfB9YgoQGarUu1w3 unBzCgUrB3dSYwAVwaV8tk rxPbpLHwMGLfRQi7rJ25SB LqpG3gdKMlAEwctoGeIqD1 OZliUBFcWpW5FPApmLWuPF GmY0lyVYBjIRtlGGWfTEro eXGfBEO8zSxma1D6hEIqnG MrtQibRfPjCvRqItSDr7Fe BCx7mJewC4RxVCYrUrS8bJ QgUGFyYWdyYXBoIEZvbnQ7 mVewmzLmm45jeITaDEBcIN OjQbCknOdzHLBuYHBUt4Ni lEuuYFV6yFc7fRosDwbiUZ O5Nfy7VC2dkt57wmh7zWot GJKtrbrfWeW4FCylXOItjr pbYTk1TIggKXVgfKC2IUGl cXGjA6OlIYRwOE0uboo0FG H5VQxvGCQnWwW7ZXDakBEo YJGfwUthZAhyb487PNC4Wn YtVW8wR2Hlf5Z8oI9osIZu FLJewHFrXxTgDDQmkz9erE XxLUpqi3BmSPU6toL6bSCl tYTnHZYaWK80Fnawt9GvBz rhs8QfV40ezYJ7WBifw3mr XY3uTfF7iuHoJPgsz7emdD 5gQnP3OWjiNH5hGI2uMHXb dR2xnmvbMQSoEaXzlxipID PeqZoykqIzIl3ydKtbZTO9 XHciD0wzsZ9nAuN6KHplS5 ajpY8yKNs8IDccvZK8VWEm sR6cVV4bmjvjp6agIRgxUM tfULGlzwT5udT7MYPexZVg J4KnyV9gHMFxAZ3gqgmsv4 jtYHB2QDvrVMFcEJR5TuJn KRGgk8Eptts8IbKdh9WstU LoLCqrV27so824ONObhiIx F9mwhUFxqhcucZNrnngcEY tqknG0XOOmCJRyFHddKZXt XGZzMjJcbGFuZzEwMzNcaG ljaFxmMVxkYmNoXGYxXGxv F6ciGnRoD2OlNNIxOuJbKJ dpTQtqeEIhdSUjaFB8cV6e MC6vWCAmkTAqK2KuNUIxdb CvbLWfZXF3sEOoiDBoYZ8f JNqanVKko7ond0UiS6hkfU cjxQL2HE8gGKTaSWLpOPqz g1HmpO9lSqaasAVjnqdsAS xmczIyXGxhbmcxMDMzXGhp F3xjPoJjDXAslYpqJNiwe0 NoXGYxXGNmMlxmczIyXGx0 cmNoXHBhclxwYXJccGxhaW 7jAtIuZoFzArqeGP5oBLSt T9dsrMZwBTGjGSPkE9liUx SxbK5kiTvhFYpgUsAuCmKk FnTQo946in7hXIBnqWIhfm FLlBHufE6nPOdgYVfdTMyy tUMwMZnkd7yfFRIhf3c6pX BqRUNhilApd0lfXWzufaJc FXNteGGmtEEdDCJpe73pWS cnvVaygTgyLYJmz0KhjPyk v1CdUdIkXVgrp4BxM03uoB JvbCBzbGlkZXMgcnVuIGFs n87aw8mcCBNzHdS3aITpmM X7kOBhdAJgs2ZcqAdjXBPz u9tpHIYmno3fgipzsLFwv8 LcqV5kgaxpBJyjwEMvggOf LUZsh8n9yAHyPNBbMFYoGY cceNc3NIQpf295fc0pztB8 fCFhLBA1JNasKYIiKPQyym UgZXZhbHVhdGVkXHBsYWlu XGYxXGZzMjJcbGFuZzEwMz NcaGljaFxmMVxkYmNoXGYx LFyyW2meWiOgN5FzBPRhHy VcvNMsD5kqkYVcPNDjMVtb XGYxXGZzMjJcbGFuZzEwMz NcaGljaFxmMVxkYmNoXGYx PIpsB2daCtCmS3FwOIEwXx IgIFxwbGFpblxmMVxmczIy OGstydfyJXCiGBbwD1ebDg PzJRVppUcnPIugj1BpKJGj VJSvCofxosMlOMl7euLqUK BhclxwbGFpblxmMVxmczIy PEkcybflZBRcYNwxJ7goZb YiGGVewRwcFQahi6LzRKAi XGNmMlxmczIyIEltbXVub2 fdw6FvC1jajKyxaNG4PMMm N9qzcQIvoVH2DLX8bQ1qGR fcliPoATCxs7QgYOMiIBTt FuP0uH6xHWR3OrDCvJldME BsYWluXGYxXGZzMjJcbGFu ZzEwMzNcaGljaFxmMVxkYm FzWUIrTOjpZ1cgHhEbK4Ps EBNlFzIdnQkhSPxdSXn8Eu xwbGFpblxmMVxmczIyXGxh kjfeKFSmRWccG8lpAvFjIE BqkKajHXxxa2FeGNEwNHGu MlxmczIyIHMgTWVkaWNhbC DTCM76LOLyOUFwoHrcjV8y uDSMOFZblcE4s9A2GKrzSX UjYXp4XKulhiQvLUTinI4j VSOwDU6nOCt7mjRkYUJhv8 NhHE2fHAIztAYvHDA3GJRl a8RlS1Adu1QwYFPfPXVduy 9uylQmGjLEnIAeZIGutc68 CWBhQS0wU2nrVXSuOCOiae BqlGEjf1IwYVHofVR0qGKj TI2NTnVVk63mACPcEGPJjo PyJZAsxHndzRS7ixU0xD2q LiBUaGUgRkRBIGhhcyBkZX Tozj7wbyBfSBNzAOZwl1Ny mQWzkRGeenIlF9Anm9GxBU Twdv78WEnwkRKulp48MK7y W4Yhw1QkyS5zKJwxZPFqn5 MjlFXzdVMvQCMbe4VhI9hu znsuGWaakGPnoY4jGBFvFA n1OFCdp5CtXLPat5TwRaVu xoZiBXZdPBAzTXTihR76EI Y4wSrlnYymygZcGN2hOREa jkMoTDCiAMOiwB9jNPogrb DwJYCkvxI8j6H7CVliVIVy sgHhDzpbRBO7npFftzE4oY ZaH9yaxtjxDDboTTVlh6Sj jD8bgRAEtAWij2IzjXNbfI MUkBXpES3stlVuQZ8iYYW2 ODggKENMSUEtODgpIGFzIH P4HKutCjcxBUQ4seCfCCXd u8IqTFsuI1clD18agMmglU l7jYOnyBtcbVKpnIPiVCAt ybO1y1L4OKOdi2KroyzzGT BsYWluXGYyXGZzMjJcbGFu ZzEwMzNcaGljaFxmMlxkYm YqIINaJTsxL6icLoIwMhRw FzhtKSU1iF== [facility] [id number] 09:36:00Surgical Pathology Report Case: [id number] Authorizing Provider: Vinnie Oglesby Collected: 08/26/2019 12:43 PM MD Beatrice Ordering[facility] Endoscopy Received: 08/26/2019 01:56 PM Services Pathologist: Isac Cummins MD Specimen: Biopsy, Gastric, gastric polyp A. STOMACH, POLYP, BIOPSY: - ANTRAL MUCOSA WITH POLYPOID FOVEOLAR HYPERPLASIA - NEGATIVE FOR HELICOBACTER PYLORI ORGANISMS BY WARTHIN STARRY STAIN - NEGATIVE FOR INTESTINAL METAPLASIA, DYSPLASIA, MALIGNANCY Signing Pathologist Direct Phone Line: [phone] signed by Isac Cummins MD on 08/27/2019 at 9:36 [id number]: upper endoscopy, biopsyPre and postop diagnosis: acute [...] evaluated Immunohistochemistry technical testing was performed at [facility], Pathology Laboratory where it was developed [...] to perform high complexity clinical laboratory testing.POCT-GLUCOSE [id number] 13:26:00 Test Item Value Reference Range Interpretation Comments POC-GLUCOSE METER 122 mg/dL 70-110 H : TESTED A T [facility] 6720 ([employer]) (test code = [employer] [facility], 1538) 93394: Efficiency Engineer/Techni wendy ID = [id number] for Ilda Bailey POCT-GLUCOSE [id number] 11:40:00 Test Item Value Reference Range Interpretation Comments POC-GLUCOSE METER 137 mg/dL 70-110 H : TESTED A T [facility] [address] ([employer]) (test code = [employer] [facility], 1538) 60938: Efficiency Engineer/Techni wendy ID = [id number] for KATIE CANTU COLON SEGMENT RESEC.NOT [id number] 19:21:00 RUN DATE: 11/14/18 [facility] PAGE 1 RUN TIME: 810 Specimen Inquiry RUN USER: INTERFACE PATIENT: DAISY HAMMER LOC: [facility] U #: [id number] AGE/SX: 58/F ROOM: [facility] RE11/11/18REG DR: Betito Collazo MD : 56 BED: A DIS: 11/13/18 STATUS: DIS Shrala TLOC: SPEC #: [id number] RECD: 11/11/18-1431 STATUS: BRITTNY REDemetra #: [id number] CRISTINO: 11/11/18- SUBM DR: Betito Collazo MD ENTERED: 11/11/18 SP TYPE: COLONR OTHR DR: ORDERED: LEVEL V SURGICA CODES: [id number] - COLON, NOS PROCEDURES: LEVEL V SURGICA (Incomplete) TISSUES: COLON, NOS - RECTOSIGMOID DIVERTICULITIS CLINICAL HISTORY 58 year old, diverticulitis (wpd) FINAL DIAGNOSIS Designated "rectosigmoid diverticulitis", segmental resection: - diverticular disease with peridiverticular fibrosis - intestinal rings - unremarkable CPT code(s): 10499 [facility]/wpd 11/13/18 GROSS DESCRIPTION ANATOMIC SOURCE OFTISSUE (per [...] and contains unremarkable mucosa and surrounding tissue. Chairman Emeritus sections are submitted in A2. The largest [...] Specimen Inquiry RUN USER: INTERFACE SPEC #: [id number] PATIENT: DOMINIQUE HAMMERL #[id number] (Continued) GROSS DESCRIPTION (Continued) 1.0 cm and containing green-brown fecal material. No discrete perforationor discoloration in those areas are noted. Chairman Emeritus sections of the intestine with the diverticula are submitted in A3 - A8. Examination of attached adipose tissue reveals no discrete lymph nodes. Chairman Emeritus sections are submitted in A9 - A16. hz/wpd 11/11/18 @ 6495 MICROSCOPIC DESCRIPTION The specimen consists of a segment of rectosigmoid colon containing numerous diverticula which extend through the muscularis into the rectosigmoid adipose tissue. Foci of fibrosis are present adjacent to the diverticula. No granulomas, dysplasia or neoplasia are identified. The intestinal rings are unremarkable. abram/wpd 11/13/18 Signed DottyDeena 11/13/181920 ENDOF REPORT [id number] 07:10:00 Test Item Value Reference Range Interpretation Comments GLUBED (test code = GLUBED) 180 mg/dL 65-110 H COMPREHENSIVE METABOLIC [id number] 05:48:00 Test Item Value Reference Range Interpretation [...] 106 units/L 46-116 N code = ALKP) [id number] 05:48:00 Test Item Value Reference Range Interpretation Comments MAGNESIUM (test code = MAG) 1.8 mg/dL 1.8-2.4 N CBC W/AUTO [id number] 04:49:00 Test Item Value Reference Range Interpretation [...] REQUIRED (test NORMAL NORMAL code = PLTMR) [id number] 21:57:00 Test Item Value Reference Range Interpretation Comments GLUBED (test code = GLUBED) 278 mg/dL 65-110 H [id number] 17:26:00 Test Item Value Reference Range Interpretation Comments GLUBED (test code = 292 mg/dL 65-110 H Hypoglyc emic Protoco GLUBED) [id number] 12:11:00 Test Item Value Reference Range Interpretation Comments GLUBED (test code = GLUBED) 131 mg/dL 65-110 H [id number] 07:23:00 Test Item Value Reference Range Interpretation Comments GLUBED (test code = GLUBED) 110 mg/dL 65-110 N CHEMISTRY 7 [id number] 05:23:00 Test Item Value Reference Range Interpretation [...] code = CA) 7.8 mg/dL 8.4-10.2 L [id number] 05:23:00 Test Item Value Reference Range Interpretation Comments MAGNESIUM (test code = MAG) 1.8 mg/dL 1.8-2.4 N CBC W/AUTO [id number] 05:19:00 Test Item Value Reference Range Interpretation [...] REQUIRED (test NORMAL NORMAL code = PLTMR) [id number] 22:07:00 Test Item Value Reference Range Interpretation Comments GLUBED (test code = GLUBED) 171 mg/dL 65-110 H [id number] 17:41:00 Test Item Value Reference Range Interpretation Comments GLUBED (test code = GLUBED) 157 mg/dL 65-110 H [id number] 13:26:00 Test Item Value Reference Range Interpretation Comments GLUBED (test code = GLUBED) 154 mg/dL 65-110 H [id number] 06:54:00 Test Item Value Reference Range Interpretation Comments GLUBED (test code = GLUBED) 143 mg/dL 65-110 H CHEMISTRY 7 [id number] 13:07:00 Test Item Value Reference Range Interpretation [...] = CA) 8.5 mg/dL 8.4-10.2 N HGB [id number] 12:51:00 Test Item Value Reference Range Interpretation Comments HEMOGLOBIN (test code = HGB) 13.6 g/dL 10.7-13.9 N HEMATOCRIT (test code = HCT) 40.3 % 32.1-42.1 N
[2020-07-03] MEDS ORDERED: ONDANSETRON 4 MG/2 ML VIAL ONE (11:33)
[2020-07-03] MEDS ORDERED: MORPHINE 4 MG/ML SYR ONE (11:33)
[2020-07-03 11:52] LABS: Absolute Lymphocytes (CBC) 1.1 K/uL (0.7-4.9); Basophils % 1.2 % (0-1.3); Hematocrit 41.9 % (36.0-45.0); Lymphocytes % 34.8 % (15.3-44.8); MPV 8.1 fL (7.6-11.3); RBC Red Blood Cell Count 4.69 M/uL (3.86-4.86)
[2020-07-03 12:03] LABS: Protime INR 1.03
--- NOTE | 2020-07-03 12:17 | RAD REPORT ---
EXAM DESCRIPTION: USExtremity Venous Uni Ltd3 12:02 pm CLINICAL HISTORY: left leg pain and swelling. COMPARISON: June 10, 2020 FINDINGS: Left common femoral, superficial femoral, popliteal and posterior tibial veins are compre ssible and demonstrate augmentation. Doppler demonstrates good flow. IMPRESSION: No evidence of deep venous thrombosis involving the left lower extremity.
[2020-07-03 12:19] LABS: ALT/SGPT 66 U/L (12-78); AST/SGOT 73 U/L (15-37); Albumin 3.2 g/dL (3.4-5.0); Alkaline Phosphatase 122 U/L (45-117); BUN Blood Urea Nitrogen 13 mg/dL (7-18); Bicarbonate 23 mmol/L (21-32); Bilirubin Direct 0.1 mg/dL (0-0.2); Bilirubin Total 0.4 mg/dL (0.2-1.0); Glucose Level 158 mg/dL (74-106); NT PRO-BNP 10 pg/mL (<125); Potassium 3.5 mmol/L (3.5-5.1); Protein, Total 7.3 g/dL (6.4-8.2); Sodium Level 136 mmol/L (136-145); Troponin (Emerg Dept Use Only) < 0.02 ng/mL (0.0-0.045)
--- NOTE | 2020-07-03 12:30 | RAD REPORT ---
EXAM DESCRIPTION: CT - Angio Aorta For Dissection - 07/03/2020 12:12 pm CLINICAL HISTORY: . Chest and abd pain COMPARISON: 2017 TECHNIQUE: Computed tomography angiography of the chest, abdomen pelvis were obtained. 100 cc Isovue 370 was administered intravenously. Coronal and sagittal reconstruction were performed. MIP 3D reconstruction was performed All CT scans are performed using dose optimization technique as appropriate and may include automated exposure control or mA/KV adjustment according to patient size. FINDINGS: An aortic dissection is not seen. An aortic aneurysm is not displayed. The celiac, SMA and HELIO are patent . 5 centimeter ground-glass opacity within the lingula. Additional smaller patchy alveolar opacities w ithin the lingula and left upper lobe. A pericardial effusion is not seen. A pleural effusion is not noted. Fatty liver Cholecystectomy Spleen, pancreas adrenals kidneys demonstrate no significant abnormality. The appendix is normal. There no evidence diverticulitis. No ascites is noted. Small ventral hernia contains fat. 8 millimeter left thyroid nodule probably benign IMPRESSION: Negative for an aortic dissection. Left lung opacities likely pneumonia. They should be followed until they have cleared to help exclude a post obstructive process/underlying mass
--- NOTE | 2020-07-03 12:30 | RAD REPORT ---
EXAM DESCRIPTION: Mohsen Single View3 11:29 am CLINICAL HISTORY: Chest pain COMPARISON: April 2020 FINDINGS: 5 centimeter opacity mid left lung. The right lung appears clear. Heart is normal size IMPRESSION: 5 centimeter left lung opacity probably pneumonia
[2020-07-03] MEDS ORDERED: AZITHROMYCIN IV 500 MG in NA CHLORIDE 0.9% 250 ML IVPB ONE (13:00)
[2020-07-03] MEDS ORDERED: CEFTRIAXONE/SWI 1gm 1 GM/10 ML SYR ONE (13:02)
[2020-07-03 13:15] LABS: SARS-COV-2 RT PCR POSITIVE (NEGATIVE)
--- NOTE | 2020-07-03 14:03 | ER ---
Nurse's Notes [facility] Name: Robyn Carrion Age: 59 yrs Sex: Female : 1960 Arrival Date: 07/03/2020 Time: 10:40 Bed 7 Private MD: Berry Suero F Diagnosis: Pneumonia, unspecified organism;Coronavirus infection, unspecified Presentation: 07/03 10:51 Chief complaint: Patient states: SOB, chills, fatigue, doesn't feel good, +n/v X 2 iw days, was diagnosed with cellulitis two weeks ago, has f/u with her PCP, also has back pain. Coronavirus screen: chills, difficulty breathing, fatigue. Ebola Screen: Patient negative for fever greater than or equal to 101.5 degrees Fahrenheit, and additional compatible Ebola Virus Disease symptoms Patient denies exposure to infectious person. Patient denies travel to an Ebola-affected area in the 21 days before illness onset. No symptoms or risks identified at this time. Initial Sepsis Screen: Does the patient meet any 2 criteria? No. Patient's initial sepsis screen is negative. Does the patient have a suspected source of infection? No. Patient's initial sepsis screen is negative. Risk Assessment: Do you want to hurt yourself or someone else? Patient reports no desire to harm self or others. Onset of symptoms was July 01, 2020. 10:51 Method Of Arrival: Wheelchair iw 10:51 Acuity: DARA 3 iw Triage Assessment: 11:50 Respiratory: hb Historical: - Allergies: 10:53 HYDROCODONE; iw - Home Meds: 11:51 Amitiza Oral [Active]; atorvastatin Oral [Active]; Creon Oral [Active]; Dicyclomine hb Oral [Active]; Lantus Sub-Q [Active]; lisinopril Oral [Active]; - PMHx: 10:53 fernando esophageal disease; cricopharyngeal spasm; Diabetes - IDDM; Diabetes - NIDDM; iw Hernia; High Cholesterol; Hyperlipidemia; - PSHx: 10:53 Hernia repair; Colon Resection; Cholecystectomy; Hysterectomy; stent in pancreas; iw 11:51 ERCP; hb - Immunization history:: Adult Immunizations up to date. - Social history:: Smoking status: Patient/guardian denies using tobacco, the patient reports quitting approximately 7 years ago. Screenin:32 Abuse screen: Denies threats or abuse. Denies injuries from another. Nutritional sv screening: No deficits noted. Tuberculosis screening: No symptoms or risk factors identified. Fall Risk None identified. Assessment: 11:35 General: Appears in no apparent distress. ill, Behavior is calm, cooperative. Pain: hb Pain currently is 8 out of 10 on a pain scale. Neuro: Level of Consciousness is awake, alert, obeys commands, Oriented to person, place, time, situation. Cardiovascular: Patient's skin is warm and dry. Rhythm is regular. Respiratory: Reports shortness of breath at rest on exertion Respiratory effort is even, unlabored, Respiratory pattern is regular, symmetrical. GI: Reports nausea. : No signs and/or symptoms were reported regarding the genitourinary system. EENT: No signs and/or symptoms were reported regarding the EENT system. Derm: Skin is pink, warm \T\ dry. Musculoskeletal: Reports left foot pain. 12:30 Reassessment: Patient appears in no apparent distress at this time. Patient and/or hb family updated on plan of care and expected duration. Pain level reassessed. Patient is alert, oriented x 3, equal unlabored respirations, skin warm/dry/pink. 13:30 Reassessment: Patient appears in no apparent distress at this time. Patient and/or hb family updated on plan of care and expected duration. Pain level reassessed. Patient is alert, oriented x 3, equal unlabored respirations, skin warm/dry/pink. 14:30 Reassessment: Patient appears in no apparent distress at this time. Patient and/or hb family updated on plan of care and expected duration. Pain level reassessed. Patient is alert, oriented x 3, equal unlabored respirations, skin warm/dry/pink. 15:30 Reassessment: Patient appears in no apparent distress at this time. Patient and/or hb family updated on plan of care and expected duration. Pain level reassessed. Patient is alert, oriented x 3, equal unlabored respirations, skin warm/dry/pink. Vital Signs: 10:51 BP 117 / 78; Pulse 98; Resp 18; Temp 98.9; Pulse Ox 98% ; Weight 69.85 kg; Height 5 ft. iw 4 in. (162.56 cm); Pain 8/10; 13:43 BP 122 / 78; Pulse 84; Resp 16; Pulse Ox 98% on R/A; hb 15:00 BP 123 / 63; Pulse 71; Resp 16; Pulse Ox 98% on R/A; hb 10:51 Body Mass Index 26.43 (69.85 kg, 162.56 cm) iw ED Course: 10:40 Patient arrived in ED. mr 10:40 Berry Suero MD is Private Physician. mr 10:53 Triage completed. iw 10:58 Guillaume Saavedra NP is PHCP. pm1 10:58 Antony Ely MD is Attending Physician. pm1 11:27 EKG done, by ED staff, reviewed by Guillaume Saavedra NP. sv 11:29 XRAY Chest (1 view) In Process Unspecified. EDMS 11:32 Patient has correct armband on for positive identification. Bed in low position. Call sv light in reach. Pulse ox on. NIBP on. environmental monitoring technician on. Door closed. Head of bed elevated. 11:36 Missed attempt(s): 20 gauge in right forearm. Bleeding controlled, band aid applied, hb catheter tip intact. 11:41 Inserted saline lock: 22 gauge in left forearm, using aseptic technique. Blood hb collected. 11:47 Chloe Martins, RN is Primary Nurse. hb 11:50 Arm band placed on. hb 12:02 US Extremity Venous Unilateral Ltd In Process Unspecified. EDMS 12:12 CT Aorta for Dissection In Process Unspecified. EDMS 12:24 Basic Metabolic Panel Sent. sv 12:24 CBC with Diff Sent. sv 12:24 LFT's Sent. sv 12:24 Magnesium Sent. sv 14:02 Berry Suero MD is Hospitalizing Provider. pm1 16:00 No provider procedures requiring assistance completed. hb 16:00 Patient admitted, IV remains in place. hb Administered Medications: 11:47 Drug: morphine 4 mg Route: IVP; Site: left forearm; hb 12:25 Follow up: Response: No adverse reaction hb 11:47 Drug: Zofran (Ondansetron) 4 mg Route: IVP; Site: left forearm; hb 12:25 Follow up: Response: No adverse reaction hb 12:58 Drug: Rocephin (cefTRIAXone) 1 grams Route: IV; Rate: calculated rate; Site: left hb forearm; 12:59 Follow up: IV Status: Completed infusion; IV Intake: 10ml hb 13:22 Follow up: Response: No adverse reaction hb 13:41 Drug: AZITHromycin 500 mg Route: IVPB; Infused Over: 1 hrs; Site: left forearm; hb Intake: 12:59 IV: 10ml; Total: 10ml. hb Outcome: 14:02 Decision to Hospitalize by Provider. pm1 16:00 Admitted to Tele accompanied by tech, via wheelchair, Report called to Reinaldo MALONEY hb 16:00 Condition: stable 16:00 Instructed on the need for admit, Demonstrated understanding of instructions. 16:01 Patient left the ED. hb Signatures: Dispatcher [employer] EDNusrat Pitt RN RN sv Rivera, Mary mr Williams, Irene, RN RN iw Marinas, Patrick, JANNET STEEL CUTTER pm1 Chloe Martins RN HAIDER hb
--- NOTE | 2020-07-03 14:03 | EDPHYS ---
Physician Documentation [facility] Name: Robyn Carrion Age: 59 yrs Sex: Female : 1960 Arrival Date: 07/03/2020 Time: 10:40 Bed 7 Private MD: Berry Suero F ED Physician Antony Ely HPI: 07/03 11:36 This 59 yrs old Female presents to ER via Wheelchair with complaints of pm1 Breathing Difficulty. 11:36 The patient has shortness of breath at rest. Onset: The symptoms/episode began/occurred pm1 4 day(s) ago. Duration: The symptoms are continuous. The patient's shortness of breath is aggravated by nothing, is alleviated by nothing. Associated signs and symptoms: Pertinent positives: chest pain, non-productive cough, back pain, right leg pain, Pertinent negatives: fever. Severity of symptoms: in the emergency department the symptoms are worse. The patient has not experienced similar symptoms in the past. The patient has been recently seen by a physician: with different complaint(s), and apparently was diagnosed with cellulitis of right lower leg. Seen in the ER on 06/13 and d/c with Keflex. Followed up with her PCP and was prescribed Bactrim. Cellulitis resolved and has follow up with her PCP. Patient reports shortness of breath and right leg pain onset 3-4 days ago. Her right leg pain has caused her to stay off her feet and in bed since onset. Patient reports some chest and back pain that started at 2-3 in the AM today. Historical: - Allergies: 10:53 HYDROCODONE; iw - Home Meds: 11:51 Amitiza Oral [Active]; atorvastatin Oral [Active]; Creon Oral [Active]; Dicyclomine hb Oral [Active]; Lantus Sub-Q [Active]; lisinopril Oral [Active]; - PMHx: 10:53 fernando esophageal disease; cricopharyngeal spasm; Diabetes - IDDM; Diabetes - NIDDM; iw Hernia; High Cholesterol; Hyperlipidemia; - PSHx: 10:53 Hernia repair; Colon Resection; Cholecystectomy; Hysterectomy; stent in pancreas; iw 11:51 ERCP; hb - Immunization history:: Adult Immunizations up to date. - Social history:: Smoking status: Patient/guardian denies using tobacco, the patient reports quitting approximately 7 years ago. ROS: 18:10 : Negative for injury, bleeding, discharge, and swelling, MS/Extremity: Negative for pm1 injury and deformity, Skin: Negative for injury, rash, and discoloration, Neuro: Negative for headache, weakness, numbness, tingling, and seizure. 18:10 Constitutional: Positive for body aches, chills, fatigue. 18:10 Cardiovascular: Positive for chest pain, Negative for edema, palpitations. 18:10 Respiratory: Positive for cough, shortness of breath. 18:10 Abdomen/GI: Positive for nausea and vomiting, Negative for abdominal pain, diarrhea, constipation. 18:10 Back: Positive for of the left scapular area and left subscapular area, pain. 18:10 MS/extremity: Positive for pain, of the left leg. pm1 Exam: 18:10 Head/Face: Normocephalic, atraumatic. pm1 18:10 Abdomen/GI: Soft, non-tender, with normal bowel sounds. No distension or tympany. No guarding or rebound. No evidence of tenderness throughout. 18:10 Skin: Warm, dry with normal turgor. Normal color with no rashes, no lesions, and no evidence of cellulitis. MS/ Extremity: Pulses equal, no cyanosis. Neurovascular intact. Full, normal range of motion. 18:10 Constitutional: The patient appears in no acute distress, alert, awake, non-diaphoretic, non-toxic, well developed, well hydrated, well groomed, well nourished, obviously ill, uncomfortable. 18:10 Cardiovascular: Exam negative for acute changes, Rate: normal, Rhythm: regular, Pulses: no pulse deficits are appreciated, Heart sounds: normal, normal S1and S2, Edema: is not appreciated. 18:10 Respiratory: Exam negative for acute changes, respiratory distress, shortness of breath, Breath sounds: are clear throughout, no bronchial sounds, no decreased breath sounds, no rales, rhonchi, no wheezing. 18:10 Back: Exam negative for acute changes, pain, is absent, vertebral tenderness, is not appreciated. 18:10 Neuro: Exam negative for acute changes, Orientation: is normal, Mentation: is normal, Motor: is normal, moves all fours, Sensation: is normal, no obvious gross deficits. Vital Signs: 10:51 BP 117 / 78; Pulse 98; Resp 18; Temp 98.9; Pulse Ox 98% ; Weight 69.85 kg; Height 5 ft. iw 4 in. (162.56 cm); Pain 8/10; 13:43 BP 122 / 78; Pulse 84; Resp 16; Pulse Ox 98% on R/A; hb 15:00 BP 123 / 63; Pulse 71; Resp 16; Pulse Ox 98% on R/A; hb 10:51 Body Mass Index 26.43 (69.85 kg, 162.56 cm) iw MDM: 10:59 Patient medically screened. pm1 12:35 ED course: Patient's chest x-ray and CT chest do not appear to have the typical pattern pm1 for covid-19 pneumonia. 5 cm opacity in left lung. Therefore will cover the patient with antibiotic coverage. 13:15 Data reviewed: vital signs. Data interpreted: Pulse oximetry: on room air is 98 %. pm1 Interpretation: normal. 14:01 Counseling: I had a detailed discussion with the patient and/or guardian regarding: the pm1 historical points, exam findings, and any diagnostic results supporting the discharge/admit diagnosis, lab results, radiology results, the need for further work-up and treatment in the hospital. 14:45 Physician consultation: Berry Suero MD was called at 14:00, regarding admission, pm1 patient's condition, and will see patient. 07/03 11:12 Order name: Basic Metabolic Panel pm1 07/03 11:12 Order name: CBC with Diff pm1 07/03 11:12 Order name: LFT's pm1 07/03 11:12 Order name: Magnesium pm1 07/03 11:12 Order name: NT PRO-BNP; Complete Time: 12:31 pm1 07/03 11:12 Order name: PT-INR; Complete Time: 12:58 pm1 07/03 11:12 Order name: Troponin (emerg Dept Use Only); Complete Time: 12:31 pm1 07/03 11:12 Order name: Strep; Complete Time: 12:31 pm1 07/03 11:12 Order name: Basic Metabolic Panel; Complete Time: 12:31 EDMS 07/03 11:12 Order name: CBC with Automated Diff; Complete Time: 12:31 EDMS 07/03 11:12 Order name: Liver (Hepatic) Function; Complete Time: 12:31 EDMS 07/03 11:12 Order name: Magnesium; Complete Time: 12:31 EDMS 07/03 11:12 Order name: XRAY Chest (1 view); Complete Time: 12:31 pm07/03 11:12 Order name: US Extremity Venous Unilateral Ltd; Complete Time: 12:31 pm07/03 11:12 Order name: CT Aorta for Dissection; Complete Time: 12:31 pm07/03 12:11 Order name: CREATININE WHOLE BLOOD; Complete Time: 12:31 EDMS 07/03 12:19 Order name: Throat Culture ED07/03 12:33 Order name: Blood Culture Adult (2) pm07/03 13:15 Order name: COVID-19/FLU A+B; Complete Time: 13:48 ED07/03 14:07 Order name: D-Dimer; Complete Time: 14:42 pm07/03 14:07 Order name: Ferritin; Complete Time: 15:00 pm07/03 14:07 Order name: C-Reactive Protein; Complete Time: 15:00 pm07/03 14:07 Order name: Lactate; Complete Time: 15:00 pm07/03 14:07 Order name: Procalcitonin 07/03 11:12 Order name: EKG; Complete Time: 11:13 pm07/03 11:12 Order name: Cardiac monitoring; Complete Time: 11:47 pm07/03 11:12 Order name: EKG - Nurse/Tech; Complete Time: 11:47 pm07/03 11:12 Order name: IV Saline Lock; Complete Time: 11:47 pm07/03 11:12 Order name: Labs collected and sent; Complete Time: 11:47 pm07/03 11:12 Order name: O2 Per Protocol; Complete Time: 11:48 pm07/03 11:12 Order name: O2 Sat Monitoring; Complete Time: 11:48 pm07/03 11:12 Order name: Droplet/Contact Precautions; Complete Time: 11:47 pm1 Administered Medications: 11:47 Drug: morphine 4 mg Route: IVP; Site: left forearm; hb 12:25 Follow up: Response: No adverse reaction hb 11:47 Drug: Zofran (Ondansetron) 4 mg Route: IVP; Site: left forearm; hb 12:25 Follow up: Response: No adverse reaction hb 12:58 Drug: Rocephin (cefTRIAXone) 1 grams Route: IV; Rate: calculated rate; Site: left hb forearm; 12:59 Follow up: IV Status: Completed infusion; IV Intake: 10ml hb 13:22 Follow up: Response: No adverse reaction hb 13:41 Drug: AZITHromycin 500 mg Route: IVPB; Infused Over: 1 hrs; Site: left forearm; hb Disposition: 16:11 Co-signature as Attending Physician, Antony Ely MD. rn Disposition: 07/03/20 14:02 Hospitalization ordered by Berry Suero for Inpatient Admission. Preliminary diagnosis are Pneumonia, unspecified organism, Coronavirus infection, unspecified. - Bed requested for Telemetry/MedSurg (Inpatient). - Status is Inpatient Admission. hb - Condition is Stable. - Problem is new. - Symptoms have improved. Signatures: Dispatcher [employer] EDAL Mariella Bower RN RN iw Nieto, Roman, MD MD rn Marinas, Patrick, JANNET MARKETING UNDERWRITER pm1 Chloe Martins RN RN hb Botello, Elizabeth eb Corrections: (The following items were deleted from the chart) 12:22 11:12 CORONAVIRUS+MR.LAB.BRZ ordered. EDAL EDMS 12:22 11:12 Influenza Screen (A \T\ B)+BA.LAB.BRZ ordered. EDAL EDMS 14:50 14:02 Hospitalization Ordered by Berry Suero MD for Inpatient Admission. Preliminary eb diagnosis is Pneumonia, unspecified organism; Coronavirus infection, unspecified. Bed requested for Telemetry/MedSurg (Inpatient). Status is Inpatient Admission. Condition is Stable. Problem is new. Symptoms have improved. pm1 16:01 14:50 07/03/2020 14:02 Hospitalization Ordered by Berry Suero MD for Inpatient hb Admission. Preliminary diagnosis is Pneumonia, unspecified organism; Coronavirus infection, unspecified. Bed requested for Telemetry/MedSurg (Inpatient). Status is Inpatient Admission. Condition is Stable. Problem is new. Symptoms have improved. eb 18:11 11:36 Constitutional: Negative for fever, chills, and weight loss, pm1 pm1
[2020-07-03 14:49] LABS: C-Reactive Protein 4.35 mg/L (<3.00); Ferritin 475.8 ng/mL (8-388)
[2020-07-03] MEDS ORDERED: ALBUTEROL 2.5 MG/3 ML NEB SOL NEB PRN (15:24)
[2020-07-03] MEDS ORDERED: IPRATROPIUM BROM 0.5MG/2.5ML NEB PRN (15:24)
[2020-07-03 16:31] VITALS: BMI 26.4
[2020-07-03] MEDS: TRAMADOL HCL 50 MG TAB PO PRN (17:28)
[2020-07-03] MEDS: ONDANSETRON 4 MG/2 ML VIAL IV PRN (17:28)
[2020-07-03] MEDS: PANTOPRAZOLE 40MG TABLET PO SCH (21:01)
[2020-07-03] MEDS: APIXABAN 2.5 MG TABLET PO SCH (21:02)
[2020-07-03] MEDS: ATORVASTATIN 20 MG TAB PO SCH (21:02)
[2020-07-03] MEDS: CEFTRIAXONE/SWI 1gm 1 GM/10 ML SYR IVP SCH (21:02)
[2020-07-04] MEDS: TRAMADOL HCL 50 MG TAB PO PRN ×3 (00:18→23:14)
[2020-07-04 05:38] LABS: Absolute Lymphocytes (CBC) 1.6 K/uL (0.7-4.9); Basophils % 0.5 % (0-1.3); Hematocrit 41.7 % (36.0-45.0); MPV 8.2 fL (7.6-11.3); RBC Red Blood Cell Count 4.66 M/uL (3.86-4.86)
[2020-07-04 06:06] LABS: Potassium 3.7 mmol/L (3.5-5.1)
[2020-07-04] MEDS: CEFTRIAXONE/SWI 1gm 1 GM/10 ML SYR IVP SCH ×2 (07:54→20:11)
[2020-07-04] MEDS: PANTOPRAZOLE 40MG TABLET PO SCH ×2 (07:55→20:11)
[2020-07-04] MEDS: lisinopriL 20 MG TAB PO SCH (07:55)
[2020-07-04] MEDS: APIXABAN 2.5 MG TABLET PO SCH ×2 (07:56→20:12)
[2020-07-04] MEDS: AZITHROMYCIN IV 250 MG in NA CHLORIDE 0.9% 250 ML IVPB SCH (07:56)
--- NOTE | 2020-07-04 09:50 | EKG ---
Test Date: 2020-07-03 Test Time: 11:27:23 Senior Data Architect: HB MEASUREMENT RESULTS: Intervals: Rate: 88 NH: 152 QRSD: 78 QT: 380 QTc: 459 Chunky: P: 15 NH: 152 QRS: 3 T: 59 INTERPRETIVE STATEMENTS: Normal sinus rhythm Normal ECG Compared to ECG 02/11/2020 14:18:23 Myocardial infarct finding no longer present Electronically Signed On 07-04-20 09:48:00 CDT by Tj Castro
[2020-07-04] MEDS: ONDANSETRON 4 MG/2 ML VIAL IV PRN (11:43)
--- NOTE | 2020-07-04 14:25 | HP ---
Date of Admission: 07/03/2020 History Of Present Illness: A 59-year-old female started feeling gradual fatigue and coughing about 3 days before she presented to the emergency room with that complaint. Workup in the emergency room found that the patient has pneumonia and also she was COVID-19 positive . The patient had symptoms of nausea, but no vomiting. No diarrhea. She had minimally increased shortness of breath. Had no chest pain. She voiced no other complaints. Review of Systems: Respiratory: As above. Cardiovascular: No complaints. Skeletomuscular: Body aches, bilateral ankle pains. Neurological: No complaint. Genitourinary: No complaint. Gastrointestinal: Nausea but no vomiting. Otherwise no complaint. Past Medical History: 1.Hypertension. 2.Type 2 diabetes mellitus. 3.Hyperlipidemia. 4.Irritable bowel. 5.Valverde's esophagus. Social History: The patient also has had cholecystectomy, hysterectomy, ERCP with pancreatic stent, and hernia repair. Social History: No smoking, alcohol, or drug abuse history. Family History: Noncontributing. Medications: Include Lantus 35 units subcutaneous daily, Carafate 1 g p.o. t.i.d., atorvastatin 20 m g p.o. daily. Lisinopril 20 mg p.o. daily. Pantoprazole 40 mg p.o. daily. Bentyl 40 mg p.o. b.i.d. p.r.n. Allergies: HYDROCODONE AND CODEINE. Physical Examination: Vital Signs: Blood pressure 120/55, pulse 77, temperature 98, room air pulse oximetry more than 95%. Heart: Regular rate and rhythm. Chest: Decreased air movement with mild bilateral crackles more pronounced on the left side. Abdomen: Soft, benign, nontender. No hepatosplenomegaly. Bowel sounds are normoactive. Extremities: No edema. No cyanosis. Peripheral pulses are felt, Neurological: Alert, oriented x4, grossly intact, Diagnostic Data: Chest x-ray, a 5 cm left lung opacity, likely pneumonia. CT scan of the chest show ed ground-glass opacity within the lingula of the left lung, left upper lobe. of the aort a. EKG, normal sinus rhythm. Laboratory Data: White cell count 3.9. The rest of CBC noted within normal. Chemistry, GFR at 86. Rest of chemistry noted, blood sugar fingersticks 223 to 171. was 507.7. Troponin less than 0.02. BNP 13. Assessment And Plan: 1.Left lung pneumonia, bacterial origin from the sake of the pneumonia is considered. However, the patient was also tested positive for COVID-19, so went ahead and admitted the patient. 2. breathing treatments and on ceftriaxone 1 g IV q.12 hours and on Zithromax. We advice Dr. Dominguez, pulmonary to see the patient because also of COVID-19. We will put the patient on oxyg en protocol and I have put her on Eliquis 2.5 mg p.o. b.i.d. 3.Type 2 diabetes mellitus. We will put the patient on regular insulin sliding scale. Monitor her blood sugar. 4.Rest of her chronic medical problems stable. Blood cultures are pending. Throat culture is yadiel l. Upper respiratory ramya drawn. Throat swab for rapid screen for group A strep screen was negativ e. Look orders for details. MFS/MODL Voice ID: [id number]
[2020-07-04] MEDS: ATORVASTATIN 20 MG TAB PO SCH (20:11)
[2020-07-05 04:29] LABS: Absolute Lymphocytes (CBC) 1.7 K/uL (0.7-4.9); Basophils % 0.3 % (0-1.3); Hematocrit 37.1 % (36.0-45.0); Lymphocytes % 31.2 % (15.3-44.8); MPV 8.3 fL (7.6-11.3); RBC Red Blood Cell Count 4.24 M/uL (3.86-4.86)
[2020-07-05 04:57] VITALS: TEMP 98.8
--- NOTE | 2020-07-05 08:14 | P.CNS ---
Date of Consult: 07/05/20 Reason for Consult: Pneumonia Chief Complaint: Shortness of breath chills History of Present Illness: Patient is 59 years of age and positive for newton virus however she has been on having problems for about 3 days complaining of chills fatigue shortness of b reath hand patient is doing better patient had a focal infiltrate in the left lung doubt newton virus pneumonia Allergies hydrocodone Adverse Reaction (Intermediate, Verified 08/02/16 02:57) affects stomach codeine [From Tylenol-Codeine #3] Adverse Reaction (Verified 08/02/16 02:57) Itching/Hives/Rash Home Medications: Atorvastatin Calcium 40 mg PO BEDTIME 04/10/16 Insulin Glargine,Hum.rec.anlog [Lantus] 35 units SQ DAILY 04/10/16 Dicyclomine [Bentyl*] 40 mg PO BID 09/05/17 Insulin Glargine,Hum.rec.anlog [Lantus Solostar] 40 units SQ BEDTIME 12/28/17 Lipase/Protease/Amylase [Ta Bella 36,000 Units Capsule] 1 cap PO SNACKS 10/14/18 Lipase/Protease/Amylase [Ta Bella 36,000 Units Capsule] 2 cap PO TIDWM 10/14/18 Pantoprazole [Protonix Tab*] 40 mg PO BID 06/21/19 Sucralfate [Carafate*] 1 gm PO QID PRN 06/21/19 lisinopriL [Lisinopril] 20 mg PO DAILY 10/02/19 - Past Medical/Surgical History Diabetic: Yes -: HTN -: CHRONIC LOW BACK PAIN -: IDDM -: TIA 1997 -: Angina -: Chronic Pancreatitis -: chronic constipation -: fernando esophageal disease -: cricopharyngeal spasm -: HLD -: CARDIAC CATH -: HYSTERECTOMY -: CHOLECYSTECTOMY -: colon resection Nov 2018 -: hernia repair -: botox on esophagus August 2019 -: ERCP - Family History Mother Medical History: Heart disease, Hypertension, Diabetes, Stroke Father Medical History: Heart disease, Hypertension, Lung disease, Diabetes, Stroke, Other (see notes) Notes: TB,COPD - Social History Smoking Status: Unknown if ever smoked Alcohol use: No CD- Drugs: No Caffeine use: Yes Place of Residence: Home Review of Systems General: Weakness Respiratory: Cough, Shortness of Breath Physical Examination Temp Pulse Resp BP Pulse Ox 98.8 F 76 16 114/66 97 07/05/20 04:00 07/05/20 04:00 07/05/20 04:00 07/05/20 04:00 07/05/20 04:00 General: Alert, In no apparent distress, Oriented x3 Respiratory: Clear to auscultation bilaterally - Problems (1) Pneumonia Current Visit: Yes Status: Acute Plan: Patient is 59 years of age admitted with a focal pneumonia which is in the left lung was likely bacterial doubt newton virus labs reviewed unremarkable pro calcitonin level his normal ferritin level elevated room-air saturation satisfactory plan to discharge home on levofloxacin mg daily vital signs stable follow with me in 2-4 weeks with a follow-up chest x-ray apparently she is positive for newton virus Qualifiers: Laterality: left
[2020-07-05] MEDS: ONDANSETRON 4 MG/2 ML VIAL IV PRN (08:39)
[2020-07-05] MEDS: lisinopriL 20 MG TAB PO SCH (08:40)
[2020-07-05] MEDS: PANTOPRAZOLE 40MG TABLET PO SCH (08:40)
[2020-07-05] MEDS: CEFTRIAXONE/SWI 1gm 1 GM/10 ML SYR IVP SCH (08:40)
[2020-07-05] MEDS: APIXABAN 2.5 MG TABLET PO SCH (08:41)
[2020-07-05 08:43] VITALS: BP 119/58
[2020-07-05] MEDS: AZITHROMYCIN IV 250 MG in NA CHLORIDE 0.9% 250 ML IVPB SCH (09:23)
[2020-07-05 12:04] VITALS: O2SAT 97
--- NOTE | 2020-07-05 13:47 | DS ---
Date of Discharge: 07/05/2020 History Of Present Illness: A 59-year-old female, who was admitted to the hospital because of left l ower lobe pneumonia. She also had a positive test for coronavirus. Past Medical History: As per admit note. Social History: As per admit note. Current Medications: As per admit note. Allergies: PER ADMIT NOTE. Physical Examination: As per admit note. Diagnostic Data: As per admit note. Hospital Course: The patient was admitted to the hospital. Her pneumonia was thought to be bacteria l and she was put on ceftriaxone IV; however, because she is coronavirus also positive, I went ahead and put her on steroids and Eliquis. Her oxygen saturation remained more than 90% on room air. The patient gradually improved on the antibiotics. Dr. Dominguez seen the patient and thought that her pn eumonia is bacterial, although her blood cultures have not revealed any growth yet, but we will go ah ead and discharge the patient on Levaquin 500 mg daily for the next 10 days and the patient to follow up with Dr. Dominguez and me with a chest x-ray to make sure the pneumonia has resolved and there is n o obstruction. The patient at the time of discharge was feeling well and has improved. MFS/MODL Voice ID: [id number] Report ID: [id number]
== END 2020-07-05 12:45 | disposition home or self-care (01) | DRG 193 ==
LOC: ER 10:37 → ERHOLD 14:12 → 4TH 15:24
PROVIDERS: ADMIT Internal Medicine; ATTEND Internal Medicine
DX: J15.9 Unspecified bacterial pneumonia (principal); U07.1 COVID-19; I10 Essential (primary) hypertension; K21.9 Gastro-esophageal reflux disease without esophagitis; E78.5 Hyperlipidemia, unspecified; E11.9 Type 2 diabetes mellitus without complications; Z90.49 Acquired absence of other specified parts of digestive tract; Z90.710 Acquired absence of both cervix and uterus; Z87.891 Personal history of nicotine dependence; Z79.899 Other long term (current) drug therapy; Z79.4 Long term (current) use of insulin; Z88.5 Allergy status to narcotic agent
CPT/HCPCS: 0240U; 36415; 71045; 71275; 74175; 80048; 80076; 82565; 82728; 82947; 83605; 83735; 83880; 84145; 84484; 85025; 85379; 85610; 86140; 87040; 87070; 87081; 93005; 93971; 94760; 96374; 96375; 99285; J0456; J0696; J2405; J7050; Q9967

== ENCOUNTER 2020-08-28 18:43 | Emergency (ER) | payer OTHER ==
--- OUTSIDE RECORDS SUMMARY | 2020-08-28 18:48 | XMS REPORT | Continuity of Care Document ---
:1960 Author Organization [facility] t Address [facility] Brennan [address] [place] [address] Care Team Providers Name Role Phone Pio EPPS, [place] [facility] Phys[facility] Reny Oglesby MD Attending Clinician Merchant EPPS Attending Clinician Anoop EPPS Attending Clinician Stew Bond MD Attending Clinician RENY OGLESBY Attending Clinician Unavailable MARISELA Attending Clinician Unavailable FREDERICK Attending Clinician Unavailable RENY OGLESBY Admitting Clinician Unavailable Payers Payer Name Policy Type Policy Effective Date Expiration Date Sour ce Number MEDICAREMEDICARE A [id number] ROSETTA Crump [id number] 2001-P 00:00:00 - Medical resentMedicare Center MEDICAIDMEDICAID OF [id number] ROSETTA Crump [id number] 00:00:00 [facility] Problems Condition Condition Condition Status Onset Resolution Last Treating Co mments Source Name Details Category Date Date Treatment Clinician Date Biliary Biliary Disease Active [facility] Hyperlipid Hyperlipid Problem Active [facility] [place] [facility] Hypertensi Hypertensi Problem Active [facility] [place] [facility] Diabetes Diabetes Problem Active [facility] [place] [facility] Follow up Follow up Problem Active [facility] [place] [facility] Allergies, Adverse Reactions, Alerts Allergy [...] 7 [facility] [place] Hydrocod Propensi Active [place] one ty to 11-01 Methodi adverse 00:00: st reaction 00 s to drug Family History Family Member Diagnosis Comments Start Date Stop Date Source Natural father Diabetes [place] [facility] Natural father Hypertension [place] [facility] Natural mother Diabetes [place] [facility] Natural mother Heart disease [place] [facility] Natural mother Hypertension [place] [facility] Unknown Family Family history of Other Uni versity of Member diabetes mellitus [place] [facility] Unknown Family Family history of Other Uni versity of Member hypertension [place] [facility] Unknown Family Family history of Other Uni versity of Member Heart problem [place] [facility] Social History Social Habit Start Date Stop Date Quantity Comments Source History of tobacco Current smoker [facility] use [facility] History SDOH [facility] - Alcohol Std Drinks [facility] History SDOH [facility] - Alcohol Binge Medical [place] [facility] Sex Assigned At [facility] Cigarettes smoked 2019-11-18 2019-11-18 [facility] - current (pack per 00:00:00 00:00:00 Medical Center day) - Reported Cigarette 2019-11-18 2019-11-18 [facility] RominaKngine - pack-years 00:00:00 00:00:00 [facility] Tobacco use and 2019-11-18 2019-11-[address] [facility] kes - exposure 00:00:00 00:00:00 Medical Center Alcohol intake 2019-11-18 2019-11-18 [facility]00 of alcohol Medical Center (finding) Alcohol Comment 2019-11-17 2019-11-[address] [facility] kes - 00:00:00 00:00:00 Medical Center History SDOH 2019-08-15 2019-08-[address] [facility] - Alcohol Frequency 00:00:00 00:00:00 [facility] Tobacco Comment 2019-08-15 2019-08-15 quit [address] [facility] - 00:00:00 00:00:00 ago [facility] Smoking Status Start Date Stop Date Source Former smoker 2019-11-18 00:00:00 2019-11-18 00:00:[address] [facility] - [facility] Never smoker [facility] Medications Ordered Filled Start Stop Current Ordering Indication Dosage Frequency Signature Comments Components Source Medication Medication Date Date Medication? Clinician (SIG) Name Name atorvastati 2019- Yes 40mg QD Take 40 [...] daily as needed . lipase/prot 2020-0 Yes [id number] Take [facility] ease/amylas 8-12 [id number] 36,000 [facility] - e (CREON 13:03: 3D [...] Source Systolic blood 2019-11-19 11:32:00 126 mm[Hg] [facility] Diastolic blood 2019-11-19 11:32:00 60 mm[Hg] [facility] Heart rate 2019-11-19 11:32:00 57 /min [facility] Body temperature 2019-11-19 11:32:00 35.72 Alysia [facility] Respiratory rate 2019-11-19 11:32:00 20 /min [facility] Oxygen saturation in 2019-11-19 11:32:00 98 /min [facility] - Arterial blood by Medical Ce nter Pulse oximetry Body height 2019-11-18 06:58:00 157.5 cm [facility] Body weight 2019-11-18 06:58:00 69.355 kg [facility] BMI 2019-11-18 06:58:00 27.97 kg/m2 [facility] Height 2018-05-24 10:25:00 62 [in_us] [facility] [place] [facility] Weight 2018-05-24 10:25:00 154.9 [lb_av] [facility] [place] [facility] Body Mass Index 2018-05-24 10:25:00 28.33 kg/m2 [facility] Calculated [place] [facility] BP Systolic 2018-04-26 10:21:00 127 mm[Hg] [facility] [place] [facility] BP Diastolic 2018-04-26 10:21:00 76 mm[Hg] [facility] [place] [facility] Height 2018-04-26 10:21:00 62 [in_us] [facility] [place] [facility] Weight 2018-04-26 10:21:00 155.6 [lb_av] [facility] [place] [facility] Body Mass Index 2018-04-26 10:21:00 28.46 kg/m2 [facility] Cal[facility] [place] [facility] Temperature 2018-04-26 10:21:00 97 [degF] [facility] [place] [facility] Heart Rate 2018-04-26 10:21:00 73 /min [facility] [place] [facility] Procedures Procedure Date / Time Performed Performing Clinician Sourjose e POCT-GLUCOSE METER 2019-11-19 07:32:00 Jam Davalos [facility] COMPREHENSIVE METABOLIC 2019-11-19 06:19:00 Padmini Armando [facility] CBC W/PLT COUNT & AUTO 2019-11-19 05:32:00 Padmini Armando [facility] HEMOGLOBIN A1C 2019-11-19 05:32:00 Padmini Armando [facility] POCT-GLUCOSE METER 2019-11-18 21:05:00 Thang Oden [facility] REPORT OF PROCEDURE - 2019-11-18 11:51:31 Vinnie Oglesby [facility] - ENDOSCOPY URL [facility] [place] ERCP 2019-11-18 11:08:00 Reny [facility] ERCP,PAPILLOTOMY 2019-11-18 10:18:00 Reny [facility] PROCEDURE W/ C-ARM 2019-11-18 10:18:00 Reny [facility] ERCP,BALLOON SWEEPING 2019-11-18 10:18:00 Reny [facility] POCT-GLUCOSE METER 2019-11-18 07:34:00 Othman, [facility] Plan of Care Planned Activity Planned Date Details Comments Source Future Scheduled 2020-11-07 INFLUENZA VACCINE [place] [facility] 00:00:00 [code = INFLUENZA VACCINE] Future Scheduled 2019-12-09 INFLUENZA VACCINE (#1) [facility] Test 00:00:00 [code = INFLUENZA Medical Ce nter VACCINE (#1)] Future Scheduled 2008 BREAST CANCER [place] [facility] Test 00:00:00 SCREENING [code = BREAST CANCER SCREENING] Future Scheduled 2008 COLONOSCOPY SCREENING [place] [facility] 00:00:00 [code = COLONOSCOPY SCREENING] Future Scheduled 2008 SHINGLES VACCINES (#1) [place] [facility] 00:00:00 [code = SHINGLES VACCINES (#1)] Future Scheduled 2003-09-[address] [facility] - Test 00:00:00 (procedure) [code = [facility] [id number]] Future Scheduled 2002-10-[address] [facility] - Test 00:00:00 WELLNESS (YEAR 2 or Medical Center FIRST YEAR if no IPPE) [code = MEDICARE ANNUAL WELLNESS (YEAR 2 or FIRST YEAR if no IPPE)] Future Scheduled 1979-09-07 Screening for [facility] thodist Test 00:00:00 malignant neoplasm of cervix (procedure) [code = 794521530] Future Scheduled 1979-09-07 Screening for [facility] - Test 00:00:00 malignant [facility] cervix (procedure) [code = 001092906] Future Scheduled 1976 Hepatitis C screening [place] [facility] Test 00:00:00 (procedure) [code = 282002852] Future Scheduled 1970 COVID-19 VACCINE (1) [place] [facility] [facility] Test 00:00:00 [code = COVID-19 VACCINE (1)] Future Scheduled 1968 DIABETES: RETINAL EYE [place] [facility] 00:00:00 EXAM [code = DIABETES: RETINAL EYE EXAM] Future Scheduled 1968 DIABETIC FOOT EXAM [place] [facility] 00:00:00 [code = DIABETIC FOOT EXAM] Future Scheduled 1968 URINE MICROALBUMIN [place] [facility] 00:00:00 [code = URINE MICROALBUMIN] Future Scheduled [address] [facility] - Test 00:00:[address] [facility] breast (procedure) [code = 216347776] Future Scheduled [address] - Test 00:00:[address] [facility] colon (procedure) [code = 644155219] Encounters Start End Encounter Admission Attending Care Care Encounter Source Date/Time Date/Time Type Type Clinicians Facility Department ID 2018-05-24 2018-05-24 RAFAT Apodaca [place] [id number] Univers 10:30:00 10:30:00 t; WILL, Surgery nelson o Andreea [place], [facility] 2018-04-26 2018-04-26 RAFAT Apodaca [facility] [id number] Univers 10:15:00 10:15:00 t; WILL, ity o f Andreea ANTONIO.O. [place] WILL, [facility]ici D[facility] 2018-04-19 2018-04-19 RAFAT [place] [facility] [id number] Univers 10:00:00 10:00:00 t; WILL, ity o f MARISELA D.O. [place] WILL, [facility]ici D[facility] 2018-03-27 2018-03-27 RAFAT [place] [id number] Univers 10:30:00 10:30:00 t; WILL, ity o f MARISELA D.O. [place] WILL, [facility]ici D[facility] 2018-03-22 2018-03-22 RAFAT Apodaca [facility] [id number] Univers 10:30:00 10:30:00 t; WILL, ity o f MARISELA D.O. [place] WILL, Physici D.O. ans 2018-03-06 2018-03-06 RAFAT Seals UTP [id number] Univers 08:30:00 08:30:00 t; CYRIL MACK M.D. i ty of [place] [facility] [place] [facility] 2018-02-14 2018-02-14 RAFAT [place] [id number] Univers 08:15:00 08:15:00 t; nelson SOLIS D.O. [place] Adrian SOLIS D.O. ans 2018-01-11 2018-01-11 Karlos ANTONIO [facility] [place] [id number] Univers 10:30:00 10:30:00 t; nelson SOLIS D.O. [place] Adrian SOLIS D.O. ans Results Test Description Test Time Test Comments Results Result Comments Source Hemoglobin A1c 2019-11-19 09:28:00 Test Item Value Reference Range Interpretation Comme nts Hemoglobin A1C (test code = 4548-4) 8.1 % 4.3-6.1 H Lab Interpretation (test code = 46248-7) Abnormal [facility] [id number] 09:28:00 Test Item Value Reference Range Interpretation Comments HEMOGLOBIN A1C (BEAKER) (test code = 8.1 % 4.3-6.1 H 368) POC-Glucose [id number] 07:44:00 Test Item Value Reference Range Interpretation Comments POC-Glucose Meter (test 130 mg/dL 70-110 H : TE STED AT [facility] code = 1538) [address] [facility], 770 30: Inventory Associate/Techni wendy ID = [id number] for KRISSY FERRER Lab Interpretation (test Abnormal code = 96456-6) [facility] [id number] 07:44:00 Test Item Value Reference Range Interpretation Comments POC-GLUCOSE METER 130 mg/dL 70-110 H : TESTED A T [facility] 6720 (BEAKER) (test code = [facility], 1538) 85484: Inventory Associate/Techni wendy ID = [id number] for KRISSY FINNEGAN Comprehensive metabolic [id number] 06:55:00 Test Item Value Reference Range Interpretation Comments Protein, Total (test 6.8 See_Comment [Autom ated code = 2885-2) message] The system which generated this result transmit migdalia reference range : 6.0 - 8.3 gm/dL . The reference range was not u sed to interpret th is result as normal/abnormal . Albumin (test code = 3.5 g/dL 3.5-5 56895-7) Alkaline Phosphatase 119 U/L 40-150 (test code = 6768-6) Total Bilirubin (test 0.5 mg/dL 0.2-1.2 code = 1974-2) Sodium (test code = 136 meq/L 145-208 1267-2) Potassium (test code 4.0 meq/L 3.5-5.1 = 2823-3) Chloride (test code = 105 meq/L 98-107 2075-0) CO2 (test code = 26 meq/L 22-29 8-9) BUN (test code = 17 mg/dL 7- 3094-0) Creatinine (test code 0.77 mg/dL 0.57-1.25 = 2160-0) Glucose (test code = 162 mg/dL 70-105 H 2345-7) Calcium (test code = 8.8 mg/dL 8.4-10.2 83852-1) AST (test code = 24 U/L 5-34 1920-8) ALT (test code = 27 U/L 6-55 1742-6) EGFR (test code = 76 mL/min/1.73 [place] [address]-3) NOT ACCURATE CREATININE CLEARANCE IN PREDICTING GLOMERULAR FILTRATION RATE . ESTIMATED GFR I S NOT APPLICABLE FOR DIALYSIS PATIEN TSIggy TRUDY (test code = TRUDY) Inventory Associate ID - PIAYA L Lab Interpretation Abnormal (test code = 32864-7) [facility] [id number] 06:55:00 Test Item Value Reference Range Interpretation [...] = 382) CO2 (BEAKER) (test 26 meq/L -29 code = 355) BLOOD UREA NITROGEN 17 [...] S NOT APPLICABLE FOR DIALYSIS PATIEN TS. Inventory Associate ID - PIAYA LCBC with platelet count + automated [id number] 05:55:00 Test Item Value Reference Range Interpretation Comments WBC (test code = 6690-2) 13.1 See_Comment H [A utomated message] The system Tiqets generated this result transmitted ref erence range: 3.5 - 10 .5 K/L. The refe rence range was not u sed to interpret this result as normal/abnor mal. RBC (test code = 789-8) 4.21 See_Comment [Au tomated message] The system Tiqets generated this result transmitted ref erence range: 3.93 - 5 .22 M/L. The refe rence range was not u sed to interpret this result as normal/abnor mal. MCHC (test code = 786-4) 35.1 See_Comment [A utomated message] The system Tiqets generated this result transmitted ref erence range: [...] See_Comment [Aut omated message] 777-3) The system Tiqets generated this result transmitted ref erence range: 150 - 45 0 K/CU MM. The referen ce range was not u sed to interpret this result as normal/abnor mal. MPV (test code = 9.5 fL 9.4-12.3 67751-2) nRBC (test code = 413) 0 See_Comment [Aut omated message] The system Tiqets generated this result transmitted ref erence range: [...] H [Aut omated message] 670) The system Tiqets generated this result transmitted ref erence range: 1.56 - 6 .13 K/L. The refe rence range was not u sed to interpret this result as normal/abnor mal. # Lymphs (test code = 1.95 See_Comment [Auto mated message] 414) The system Tiqets generated this result transmitted ref erence range: 1.18 - 3 .74 K/L. The refe rence range was not u sed to interpret this result as normal/abnor mal. # Monos (test code = 0.81 See_Comment H [Autom ated message] 415) The system Tiqets generated this result transmitted ref erence range: 0.24 - 0 .36 K/L. The refe rence range was not u sed to interpret this result as normal/abnor mal. # Eos (test code = 416) 0.02 See_Comment L [Au tomated message] The system Tiqets generated this result transmitted ref erence range: 0.04 - 0 .36 K/L. The refe rence range was not u sed to interpret this result as normal/abnor mal. # Baso (test code = 417) 0.01 See_Comment [A utomated message] The system Tiqets generated this result transmitted ref erence range: 0.01 - 0 .08 K/L. The refe rence range was not u sed to interpret this result as normal/abnor mal. Immature 0 % 0-1 Granulocytes-Relative (test code = 2801) Lab Interpretation (test Abnormal code = 31210-2) [facility] W/PLT COUNT & AUTO [id number] 05:55:00 Test Item Value Reference Range Interpretation [...] PERCENT (BEAKER) (test code = 2801) POCT-GLUCOSE [id number] 21:17:00 Test Item Value Reference Range Interpretation Comments POC-GLUCOSE METER 255 mg/dL 70-110 H : TESTED A T [facility] 6720 (BEAKER) (test code = [facility], 1538) [address]1996: Inventory Associate/Techni wendy ID = [id number] for ABHILASH MARTI [id number] 11:22:39INTRA OP IMAGINGReason for exam:->abnormal imaging Fluoroscopic unit utilized for a procedure performed in the OR. No interpretation was requested. Refer to the operative report for findings. Refer to PACS for patient radiation dose information.FL [id number] 11:22:39 Interface, External Ris In - 11/18/2019 11:22 AM CDTFluoroscopic unit utilized for a procedure performed in the OR. No interpretation was requested. Refer to the operative report for findings. Referto PACS for patient radiation dose information.[facility] [id number] 07:45:00 Test Item Value Reference Range Interpretation Comments POC-GLUCOSE METER 155 mg/dL 70-110 H : TESTED A T [facility] 6720 (BEAKER) (test code = [facility], 1538) [address]: Inventory Associate/Techni wendy ID = [id number] for ED CRISSY, KATIE TISSUE [id number] 09:36:00Surgical Pathology Report Case: [id number] Authorizing Provider: Vinnie Oglesby Collected: 08/26/2019 12:43 PM MD Beatrice Ordering [facility] Received: 08/26/2019 01:56 PM Services Pathologist: Isac Cummins MD Specimen: Biopsy, Gastric, gastric polyp A. STOMACH, POLYP, BIOPSY: - ANTRAL MUCOSA WITH POLYPOID FOVEOLAR HYPERPLASIA - NEGATIVE FOR HELICOBACTER PYLORI ORGANISMS BY WARTHIN STARRY STAIN - NEGATIVE FOR INTESTINAL METAPLASIA, DYSPLASIA, MALIGNANCY SigningPathologist Direct Phone Line: [phone] signed by Isac Cummins MD on 08/27/2019 at 9:36 [id number]: upper endoscopy, biopsyPre and postop diagnosis: acute pancreatitis A. Biopsy, gastricA. Received in formalin labeled with the patient's name, accession number and"gastric biopsy", with the additional description "gastric polyp" [...] run alongside of the patients sample show ap propriate staining. Internal positive and negative controls when available are evaluated Immunohistochemistry technical testing was performed at [facility], Pathology Laboratory where it was developed and [...] to perform high complexity clinical laboratory testing.POCT-GLUCOSE [id number] 13:26:00 Test Item Value Reference Range Interpretation Comments POC-GLUCOSE METER 122 mg/dL 70-110 H : TESTED A T [facility] 6720 (Game Blisters) (test code = [place], 1538) [address]: Inventory Associate/Techni wendy ID = [id number] for Ilda Bailey POCT-GLUCOSE [id number] 11:40:00 Test Item Value Reference Range Interpretation Comments POC-GLUCOSE METER 137 mg/dL 70-110 H : TESTED A T [facility] 6720 (Game Blisters) (test code = [place], 1538) 78059: Inventory Associate/Techni wendy ID = [id number] for ED KATIE WOODWARD COLON SEGMENT RESEC.NOT [id number] 19:21:00 RUN DATE: 11/14/18 [facility] PAGE 1 RUN TIME: 810 Specimen Inquiry RUN USER: INTERFACE PATIENT: DAISY HAMMER LOC: [facility] #: [id number] AGE/SX: 58/F ROOM: [facility] RE11/11/18REG DR: Betito Collazo MD : 56 BED: A DIS: 11/13/18 STATUS: DIS Sharla TLOC: SPEC #: [id number] RECD: 11/11/18 STATUS: SOUJer REQ #: [id number] CRISTINO: 11/11/18- SUBM DR: Betito Collazo MD ENTERED: 11/11/18 SP TYPE: COLONR NIDIA DR: ORDERED: LEVEL V SURGICA CODES: T01960 - COLON, NOS PROCEDURES: LEVEL V SURGICA (Incomplete) TISSUES: COLON, NOS - RECTOSIGMOID DIVERTICULITIS CLINICAL HISTORY 58 year old, diverticulitis (wpd) FINAL DIAGNOSIS Designated "rectosigmoid diverticulitis", segmental resection: - diverticular disease with peridiverticular fibrosis - intestinal rings - unremarkable CPT code(s): 38846 pkg/wpd 11/13/18 GROSS DESCRIPTION ANATOMIC SOURCE OFTISSUE [...] and contains unremarkable mucosa and surrounding tissue. Behavioral Health Professional sections are submitted in A2. The largest [...] Specimen Inquiry RUN USER: INTERFACE SPEC #: [id number] PATIENT: DAISY HAMMER #[id number] (Continued) GROSS DESCRIPTION (Continued) 1.0 cm and containing green-brown fecal material. No discrete perforationor discoloration in those areas are noted. Behavioral Health Professional sections of the intestine with the diverticula are submitted in A3 - A8. Examination of attached adipose tissue reveals no discrete lymph nodes. Behavioral Health Professional sections are submitted in A9 - A16. /wpd 11/11/18 @ 8597 MICROSCOPIC DESCRIPTION The specimen consists of a segment of rectosigmoid colon containing numerous diverticula which extend through the muscularis into the rectosigmoid adipose tissue. Foci of fibrosis are present adjacent to the diverticula. No granulomas, dysplasia or neoplasia are identified. The intestinal rings are unremarkable. abram/wpandreea 11/13/18 Signed Deena Storm 11/13/181920 ENDOF REPORT [id number] 07:10:00 Test Item Value Reference Range Interpretation Comments GLUBED (test code = GLUBED) 180 mg/dL 65-110 H COMPREHENSIVE METABOLIC [id number] 05:48:00 Test Item Value Reference Range Interpretation [...] 106 units/L 46-116 N code = ALKP) [id number] 05:48:00 Test Item Value Reference Range Interpretation Comments MAGNESIUM (test code = MAG) 1.8 mg/dL 1.8-2.4 N CBC W/AUTO [id number] 04:49:00 Test Item Value Reference Range Interpretation [...] REQUIRED (test NORMAL NORMAL code = PLTMR) [id number] 21:57:00 Test Item Value Reference Range Interpretation Comments GLUBED (test code = GLUBED) 278 mg/dL 65-110 H [id number] 17:26:00 Test Item Value Reference Range Interpretation Comments GLUBED (test code = 292 mg/dL 65-110 H Hypoglyc emic Protoco GLUBED) [id number] 12:11:00 Test Item Value Reference Range Interpretation Comments GLUBED (test code = GLUBED) 131 mg/dL 65-110 H [id number] 07:23:00 Test Item Value Reference Range Interpretation Comments GLUBED (test code = GLUBED) 110 mg/dL 65-110 N CHEMISTRY 7 [id number] 05:23:00 Test Item Value Reference Range Interpretation [...] code = CA) 7.8 mg/dL 8.4-10.2 L [id number] 05:23:00 Test Item Value Reference Range Interpretation Comments MAGNESIUM (test code = MAG) 1.8 mg/dL 1.8-2.4 N CBC W/AUTO [id number] 05:19:00 Test Item Value Reference Range Interpretation [...] REQUIRED (test NORMAL NORMAL code = PLTMR) [id number] 22:07:00 Test Item Value Reference Range Interpretation Comments GLUBED (test code = GLUBED) 171 mg/dL 65-110 H [id number] 17:41:00 Test Item Value Reference Range Interpretation Comments GLUBED (test code = GLUBED) 157 mg/dL 65-110 H [id number] 13:26:00 Test Item Value Reference Range Interpretation Comments GLUBED (test code = GLUBED) 154 mg/dL 65-110 H [id number] 06:54:00 Test Item Value Reference Range Interpretation Comments GLUBED (test code = GLUBED) 143 mg/dL 65-110 H CHEMISTRY 7 [id number] 13:07:00 Test Item Value Reference Range Interpretation [...] = CA) 8.5 mg/dL 8.4-10.2 N HGB [id number] 12:51:00 Test Item Value Reference Range Interpretation Comments HEMOGLOBIN (test code = HGB) 13.6 g/dL 10.7-13.9 N HEMATOCRIT (test code = HCT) 40.3 % 32.1-42.1 N
[2020-08-28] MEDS ORDERED: HYDROCODONE/APAP 7.5/325 MG TAB ONE (19:37)
--- NOTE | 2020-08-28 20:04 | RAD REPORT ---
EXAM DESCRIPTION: RAD - Ankle Left 3 View - 08/28/2020 7:47 pm CLINICAL HISTORY: PAIN COMPARISON: No comparisons FINDINGS: No acute fracture or dislocation seen. Mild soft tissue swelling is evident. Small plantar calcaneal spur.
--- NOTE | 2020-08-28 20:50 | RAD REPORT ---
EXAM DESCRIPTION: US - Extremity Venous Uni Ltd - 08/28/2020 8:39 pm CLINICAL HISTORY: PAIN Leg swelling and edema. COMPARISON: Extremity Venous Uni Ltd dated 07/03/2020 FINDINGS: Left lower extremity venous system was interrogated with Doppler technique. Normal flow, c ompressibility and augmentation was noted. There is no DVT present. IMPRESSION: No evidence of left lower extremity deep venous thrombosis.
--- NOTE | 2020-08-28 21:05 | RAD REPORT ---
EXAM DESCRIPTION: US - Lower Extremity Artery Uni Ltd - 08/28/2020 8:39 pm CLINICAL HISTORY: PAIN COMPARISON: No comparisons FINDINGS: Doppler interrogation of the left lower extremity arterial system was performed. Triphasic waveforms are noted involving the common femoral and superficial femoral arteries. The popliteal artery, posterior tibial artery and dorsalis pedis artery are blunted somewhat and biph asic. This suggests a mild flow limiting stenosis may be present distal SFA. No severe stenosis or occlusion. 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
--- NOTE | 2020-08-28 21:11 | ER ---
Nurse's Notes [facility] Name: Robyn Carrion Age: 59 yrs Sex: Female : 1960 Arrival Date: 08/28/2020 Time: 18:48 Bed 6 Private MD: Berry Suero F Diagnosis: Pain in left lower leg;Pain in left ankle and joints of left foot Presentation: 08/28 18:53 Chief complaint: Patient states: left ankle pain and swelling that has been ongoing for sv a bit. Coronavirus screen: Client denies travel out of the [place] in the last 14 days. At this time, the client does not indicate any symptoms associated with coronavirus-19. Ebola Screen: No symptoms or risks identified at this time. Initial Sepsis Screen: Does the patient meet any 2 criteria? No. Patient's initial sepsis screen is negative. Does the patient have a suspected source of infection? No. Patient's initial sepsis screen is negative. Risk Assessment: Do you want to hurt yourself or someone else? Patient reports no desire to harm self or others. Onset of symptoms is unknown. 18:53 Method Of Arrival: Wheelchair sv 18:53 Acuity: DARA 4 sv Triage Assessment: 18:54 General: Appears in no apparent distress. uncomfortable, Behavior is calm, cooperative, sv appropriate for age. Neuro: Level of Consciousness is awake, alert, obeys commands. Respiratory: Respiratory effort is even, unlabored. Historical: - Allergies: 18:54 HYDROCODONE; sv - PMHx: 18:54 fernando esophageal disease; cricopharyngeal spasm; Diabetes - IDDM; Diabetes - NIDDM; sv Hernia; High Cholesterol; Hyperlipidemia; - PSHx: 18:54 Hernia repair; Colon Resection; Cholecystectomy; Hysterectomy; stent in pancreas; ERCP; sv Screenin:11 Abuse screen: Denies threats or abuse. Nutritional screening: No deficits noted. jb4 Tuberculosis screening: No symptoms or risk factors identified. Fall Risk None identified. Assessment: 19:11 General: Appears in no apparent distress. uncomfortable, Behavior is calm, cooperative, jb4 appropriate for age. Pain: Complains of pain in left calf and left heel Pain does not radiate. Pain currently is 6 out of 10 on a pain scale. Quality of pain is described as sharp. Neuro: Level of Consciousness is awake, alert, obeys commands, Oriented to person, place, time, situation. Cardiovascular: Patient's skin is warm and dry. Respiratory: Airway is patent Respiratory effort is even, unlabored, Respiratory pattern is regular, symmetrical. GI: No signs and/or symptoms were reported involving the gastrointestinal system. : No signs and/or symptoms were reported regarding the genitourinary system. EENT: No signs and/or symptoms were reported regarding the EENT system. Derm: Skin is intact, Skin is pink, warm \T\ dry. Musculoskeletal: Circulation, motion, and sensation intact. Range of motion: intact in all extremities, Swelling present in left calf and left Achilles, left foot. 19:47 Reassessment: Ultrasound at the bedside. jb4 20:00 Reassessment: Patient appears in no apparent distress at this time. Patient and/or jb4 family updated on plan of care and expected duration. Pain level reassessed. Patient is alert, oriented x 3, equal unlabored respirations, skin warm/dry/pink. 21:00 Reassessment: Patient appears in no apparent distress at this time. Patient and/or jb4 family updated on plan of care and expected duration. Pain level reassessed. Patient is alert, oriented x 3, equal unlabored respirations, skin warm/dry/pink. 21:21 Reassessment: PT verbalized understanding of d/c and follow up instructions. Denies jb4 questions or concerns. Assisted to vehicle via wheelchair. Vital Signs: 18:53 BP 180 / 85; Pulse 86; Resp 16; Temp 98; Pulse Ox 99% ; Weight 69.85 kg; Height 5 ft. 2 sv in. (157.48 cm); Pain 6/10; 20:30 BP 163 / 79; Pulse 78; Resp 16; Pulse Ox 98% on R/A; jb4 18:53 Body Mass Index 28.17 (69.85 kg, 157.48 cm) sv ED Course: 18:48 Patient arrived in ED. mr 18:48 Berry Suero MD is Private Physician. mr 18:54 Triage completed. sv 18:54 Arm band placed on. sv 18:59 Tian Adams PA is PHCP. cp 18:59 Eric Umana MD is Attending Physician. cp 19:05 Tarun Bruno, HAIDER is Primary Nurse. jb4 19:06 Ciro Salinas MD is Attending Physician. cp 19:11 Patient has correct armband on for positive identification. Bed in low position. Call jb4 light in reach. Side rails up X 1. Pulse ox on. NIBP on. 19:46 XRAY Ankle LEFT 3 view In Process Unspecified. EDMS 20:39 US LE Artery Uni Ltd In Process Unspecified. EDMS 20:39 US Extremity Venous Unilateral Ltd In Process Unspecified. EDMS 21:10 Eyal Bautista MD is Referral Physician. cp 21:10 Referral Physician role handed off by Eyal Bautista MD cp 21:21 No provider procedures requiring assistance completed. Patient did not have IV access jb4 during this emergency room visit. Administered Medications: 19:24 Not Given (Pt unable to take it): Hydrocodone-Acetaminophen (7.5 mg-325 mg) 1 tabs PO jb4 once; RASS on ADMIN: Combtv4, Very Agttd3, Agttd2, Rstlss1, AlertClm0, Drwsy-1, Lt Sdtn-2, Mod Sdtn-3, Dp Sdtn-4, UnArsble-5 19:39 Not Given (Patient Refused): Tylenol #3 (300 mg-30 mg) 2 tabs PO once; RASS on ADMIN: jb4 Combtv4, Very Agttd3, Agttd2, Rstlss1, AlertClm0, Drwsy-1, Lt Sdtn-2, Mod Sdtn-3, Dp Sdtn-4, UnArsble-5 21:10 Drug: morphine 4 mg Route: IM; Site: right deltoid; jb4 21:22 Follow up: Response: No adverse reaction; Marked relief of symptoms; Pain is decreased; jb4 RASS: Alert and Calm (0) Outcome: 21:11 Discharge ordered by . cp 21:21 Discharged to home via wheelchair, with family. jb4 21:21 Condition: stable 21:21 Discharge instructions given to patient, Instructed on discharge instructions, follow up and referral plans. Demonstrated understanding of instructions, follow-up care. 21:22 Patient left the ED. jb4 Signatures: Dispatcher [employer] Nusrat Morales RN RN sv Rivera, Mary mr Page, Corey, PA PA cp Damion, Tarun, RN RN jb4
--- NOTE | 2020-08-28 21:11 | EDPHYS ---
Physician Documentation [facility] Name: Robyn Carrion Age: 59 yrs Sex: Female : 1960 Arrival Date: 08/28/2020 Time: 18:48 Bed 6 Private MD: Berry Suero F ED Physician Ciro Salinas HPI: 08/28 19:25 This 59 yrs old Female presents to ER via Wheelchair with complaints of Ankle cp Swelling. 19:25 The patient presents with pain. The complaints affect the lateral aspect left ankle. cp Onset: The symptoms/episode began/occurred 3 month(s) ago. Context: resulted from an unknown cause, The patient can fully bear weight on the affected extremity. the patient is able to ambulate, with moderate difficulty. Associated signs and symptoms: Pertinent positives: calf tenderness, pain of lower leg, Pertinent negatives: numbness, swelling, warmth. Modifying factors: the symptoms are aggravated by weight bearing, movement. Historical: - Allergies: 18:54 HYDROCODONE; sv - PMHx: 18:54 fernando esophageal disease; cricopharyngeal spasm; Diabetes - IDDM; Diabetes - NIDDM; sv Hernia; High Cholesterol; Hyperlipidemia; - PSHx: 18:54 Hernia repair; Colon Resection; Cholecystectomy; Hysterectomy; stent in pancreas; ERCP; sv ROS: 19:27 Constitutional: Negative for body aches, chills, fever. cp 19:27 Respiratory: Negative for shortness of breath, wheezing. 19:27 MS/extremity: Positive for pain, tenderness, of the left lateral ankle and left lower leg, Negative for injury or acute deformity, decreased range of motion, erythema, paresthesias. 19:27 Skin: Negative for cellulitis, rash. 19:27 All other systems are negative. Exam: 19:35 Constitutional: The patient appears in no acute distress, alert, awake, non-toxic, well cp developed, well nourished. 19:35 Head/Face: Normocephalic, atraumatic. cp 19:35 Chest/axilla: Inspection: normal. 19:35 Cardiovascular: Rate: normal, Pulses: Pulses are 2+ in left dorsalis pedis artery. Edema: is not appreciated, JVD: is not appreciated. 19:35 Respiratory: the patient does not display signs of respiratory distress, Respirations: normal, no use of accessory muscles, labored breathing, is not present. 19:35 Musculoskeletal/extremity: Extremities: grossly normal except: noted in the left calf and left lateral ankle: pain, tenderness, mild swelling, There is no evidence of decreased ROM, deformity, erythema, Sensation intact. Weight bearing: able to fully bear weight. 19:35 Skin: cellulitis, is not appreciated, no rash present. Vital Signs: 18:53 BP 180 / 85; Pulse 86; Resp 16; Temp 98; Pulse Ox 99% ; Weight 69.85 kg; Height 5 ft. 2 sv in. (157.48 cm); Pain 6/10; 20:30 BP 163 / 79; Pulse 78; Resp 16; Pulse Ox 98% on R/A; jb4 18:53 Body Mass Index 28.17 (69.85 kg, 157.48 cm) sv MDM: 19:14 Patient medically screened. cp 19:30 Differential diagnosis: fracture, sprain, DVT, cellulitis, peripheral arterial disease. cp 21:10 Data reviewed: vital signs, nurses notes, radiologic studies, plain films, ultrasound. 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 ED course: VSS. Pain improved with IM shot. Patient reports having meloxicam prescribed for pain management and f/u appt next week with pcp. Will discharge to home for continued monitoring. 08/28 19:16 Order name: LE Artery Uni Ltd; Complete Time: 21:06 cp 08/28 21:06 Interpretation: Report reviewed. cp 08/28 19:16 Order name: Extremity Venous Unilateral Ltd; Complete Time: 21:06 cp 08/28 21:06 Interpretation: Report reviewed. cp 08/28 19:16 Order name: XRAY Ankle LEFT 3 view; Complete Time: 20:17 cp 08/28 20:17 Interpretation: Report reviewed. cp Administered Medications: 19:24 Not Given (Pt unable to take it): Hydrocodone-Acetaminophen (7.5 mg-325 mg) 1 tabs PO jb4 once; RASS on ADMIN: Combtv4, Very Agttd3, Agttd2, Rstlss1, AlertClm0, Drwsy-1, Lt Sdtn-2, Mod Sdtn-3, Dp Sdtn-4, UnArsble-5 19:39 Not Given (Patient Refused): Tylenol #3 (300 mg-30 mg) 2 tabs PO once; RASS on ADMIN: jb4 Combtv4, Very Agttd3, Agttd2, Rstlss1, AlertClm0, Drwsy-1, Lt Sdtn-2, Mod Sdtn-3, Dp Sdtn-4, UnArsble-5 21:10 Drug: morphine 4 mg Route: IM; Site: right deltoid; jb4 21:22 Follow up: Response: No adverse reaction; Marked relief of symptoms; Pain is decreased; jb4 RASS: Alert and Calm (0) Disposition: 21:30 Chart complete. yuan 08/29 07:20 Co-signature as Attending Physician, Ciro Salinas MD. [email or web address] Disposition: 08/28/20 21:11 Discharged to Home. Impression: Pain in left lower leg, Pain in left ankle and joints of left foot. - Condition is Stable. - Discharge Instructions: Musculoskeletal Pain, Varicose Veins, Ankle Pain. - Medication Reconciliation Form, Thank You Letter, Antibiotic Education, Prescription Opioid Use form. - Follow up: Eyal Bautista MD; When: 2 - 3 days; Reason: Recheck today's complaints. Follow up: Private Physician; When: 2 - 3 days; Reason: Recheck today's complaints. - Problem is an ongoing problem. - Symptoms have improved. Signatures: Dispatcher [employer] Nusrat Morales RN RN Tian Bender PA PA cp Bryson, James, RN RN jb4 Ciro Salinas MD MD 7 Corrections: (The following items were deleted from the chart) 08/28 21:22 21:11 08/28/2020 21:11 Discharged to Home. Impression: Pain in left lower leg; Pain in jb4 left ankle and joints of left foot. Condition is Stable. Forms are Medication Reconciliation Form, Thank You Letter, Antibiotic Education, Prescription Opioid Use. Follow up: Private Physician; When: 2 - 3 days; Reason: Recheck today's complaints. Problem is an ongoing problem. Symptoms have improved. cp
[2020-08-28] MEDS ORDERED: MORPHINE 4 MG/ML SYR ONE (21:24)
[2020-08-28 21:28] VITALS: TEMP 98
[2020-08-28 21:29] VITALS: BP 163/79; O2SAT 98
== END 2020-08-28 21:22 | disposition home or self-care (01) ==
LOC: ER 18:43
DX: M79.662 Pain in left lower leg (principal); M25.572 Pain in left ankle and joints of left foot; R22.42 Localized swelling, mass and lump, left lower limb; E11.9 Type 2 diabetes mellitus without complications; K22.70 Barrett's esophagus without dysplasia; E78.00 Pure hypercholesterolemia, unspecified; E78.5 Hyperlipidemia, unspecified
CPT/HCPCS: 93926; 93971; 96372; 99283

== ENCOUNTER 2020-09-16 14:30 | Emergency (ER) | payer OTHER ==
--- OUTSIDE RECORDS SUMMARY | 2020-09-16 14:34 | XMS REPORT | Continuity of Care Document ---
:1960 Author Organization [facility] t Address [facility] Brennan [address] [place] [address] Care Team Providers Name Role Phone Pio EPPS, [place] [facility] Physician Reny Oglesby MD Attending Clinician Merchant EPPS Attending Clinician Anoop EPPS Attending Clinician Stew Bond MD Attending Clinician RENY OGLESBY Attending Clinician Unavailable MARISELA Attending Clinician Unavailable FREDERICK Attending Clinician Unavailable RENY OGLESBY Admitting Clinician Unavailable Payers Payer Name Policy Type Policy Effective Date Expiration Date Sour ce Number MEDICAREMEDICARE A [id number] ROSETTA Crump [id number] 2001-P 00:00:00 - Medical resentMedicare Center MEDICAIDMEDICAID OF [id number] ROSETTA Crump [id number] 00:00:00 - [facility] Problems Condition Condition Condition Status Onset Resolution Last Treating Co mments Source Name Details Category Date Date Treatment Clinician Date Biliary Biliary Disease Active [facility] Hyperlipid Hyperlipid Problem Active [facility] [place] [facility] Hypertensi Hypertensi Problem Active [facility] [place] [facility] Diabetes Diabetes Problem Active [facility] [place] [facility] Follow up Follow up Problem Active [facility] [place] [facility] Allergies, Adverse Reactions, Alerts Allergy [...] 7 [facility] [place] Hydrocod Propensi Active [place] one ty to 11-01 Methodi adverse 00:00: st reaction 00 s to drug Family History Family Member Diagnosis Comments Start Date Stop Date Source Natural father Diabetes [place] [facility] Natural father Hypertension [place] [facility] Natural mother Diabetes [place] [facility] Natural mother Heart disease [place] [facility] Natural mother Hypertension [place] [facility] Unknown Family Family history of Other Uni versity of Member diabetes mellitus [place] [facility] Unknown Family Family history of Other Uni versity of Member hypertension [place] [facility] Unknown Family Family history of Other Uni versity of Member Heart problem [place] [facility] Social History Social Habit Start Date Stop Date Quantity Comments Source History of tobacco Current smoker [facility] [employer] [facility] use Medical [facility] History SDOH [facility] - Alcohol Std Drinks Med[facility] Center History SDOH [facility] - Alcohol Binge [facility] [place] [facility] Sex Assigned At [facility] Cigarettes smoked 2019-11-18 2019-11-[address] [facility] - current (pack per 00:00:00 00:00:00 Medical Center day) - Reported Cigarette 2019-11-18 2019-11-18 [facility] [employer] - pack-years 00:00:00 00:00:00 [facility] Tobacco use and 2019-11-18 2019-11-[address] [facility] - exposure 00:00:00 00:00:00 Medical Center Alcohol intake 2019-11-18 2019-11-18 [facility]00 of alcohol Medical Center (finding) Alcohol Comment 2019-11-17 2019-11-[address] [facility] kes - 00:00:00 00:00:00 Medical Center History SDOH 2019-08-15 2019-08-[address] [facility] - Alcohol Frequency 00:00:00 00:00:00 [facility] Center Tobacco Comment 2019-08-15 2019-08-15 quit [address] [facility] - 00:00:00 00:00:00 ago [facility] Center Smoking Status Start Date Stop Date Source Former smoker 2019-11-18 00:00:00 2019-11-18 00:00:[address] [facility] Never smoker [facility] Medications Ordered Filled Start Stop Current Ordering [...] daily as needed . lipase/prot 2020-0 Yes [id number] Take [facility] ease/amylas 8-12 [id number] 36,000 [facility] - e (CREON 13:03: 3D [...] Source Systolic blood 2019-11-19 11:32:00 126 mm[Hg] [facility] Diastolic blood 2019-11-19 11:32:00 60 mm[Hg] [facility] Heart rate 2019-11-19 11:32:00 57 /min [facility] Body temperature 2019-11-19 11:32:00 35.72 Alysia [facility] Respiratory rate 2019-11-19 11:32:00 20 /min [facility] Oxygen saturation in 2019-11-19 11:32:00 98 /min [facility] - Arterial blood by Medical Ce nter Pulse oximetry Body height 2019-11-18 06:58:00 157.5 cm [facility] Body weight 2019-11-18 06:58:00 69.355 kg [facility] BMI 2019-11-18 06:58:00 27.97 kg/m2 [facility] Height 2018-05-24 10:25:00 62 [in_us] [facility] [place] [facility] Weight 2018-05-24 10:25:00 154.9 [lb_av] [facility] [place] [facility] Body Mass Index 2018-05-24 10:25:00 28.33 kg/m2 [facility] Cal[facility] [place] [facility] BP Systolic 2018-04-26 10:21:00 127 mm[Hg] [facility] [place] [facility] BP Diastolic 2018-04-26 10:21:00 76 mm[Hg] [facility] [place] [facility] Height 2018-04-26 10:21:00 62 [in_us] [facility] [place] [facility] Weight 2018-04-26 10:21:00 155.6 [lb_av] [facility] [place] [facility] Body Mass Index 2018-04-26 10:21:00 28.46 kg/m2 [facility] [place] [facility] Temperature 2018-04-26 10:21:00 97 [degF] [facility] [place] [facility] Heart Rate 2018-04-26 10:21:00 73 /min [facility] [place] [facility] Procedures Procedure Date / Time Performed Performing Clinician Sourjose e POCT-GLUCOSE METER 2019-11-19 07:32:00 Jam Davalos [facility] COMPREHENSIVE METABOLIC 2019-11-19 06:19:00 Padmini Armando [facility] CBC W/PLT COUNT & AUTO 2019-11-19 05:32:00 Padmini Armando [facility] HEMOGLOBIN A1C 2019-11-19 05:32:00 Padmini Armando [facility] POCT-GLUCOSE METER 2019-11-18 21:05:00 Thang Oden [facility] REPORT OF PROCEDURE - 2019-11-18 11:51:31 Vinnie Oglesby [facility] - ENDOSCOPY URL [facility] ERCP 2019-11-18 11:08:00 Reny [facility] ERCP,PAPILLOTOMY 2019-11-18 10:18:00 Reny [facility] s [facility] PROCEDURE W/ C-ARM 2019-11-18 10:18:00 Reny [facility] ERCP,BALLOON SWEEPING 2019-11-18 10:18:00 Reny [facility] POCT-GLUCOSE METER 2019-11-18 07:34:00 Othman, [facility] elius Casey Oglesby [facility] Plan of Care Planned Activity Planned Date Details Comments Source Future Scheduled 2020-12-[address] [facility] - Test 00:00:00 (Season Ended) [code = Medic al Center INFLUENZA VACCINE (Season Ended)] Future Scheduled 2020-11-07 INFLUENZA VACCINE [place] [facility] 00:00:00 [code = INFLUENZA VACCINE] Future Scheduled 2020-04-[address] [facility] - Test 00:00:00 (12+) [code = [facility] Center DEPRESSION SCREENING (12+)] Future Scheduled 2008 BREAST CANCER [facility] thodist Test 00:00:00 SCREENING [code = BREAST CANCER SCREENING] Future Scheduled 2008 COLONOSCOPY SCREENING [place] [facility] Test 00:00:00 [code = COLONOSCOPY SCREENING] Future Scheduled 2008 SHINGLES VACCINES (#1) [place] [facility] Test 00:00:00 [code = SHINGLES VACCINES (#1)] Future Scheduled 2008 SHINGLES VACCINES ([address] [facility] - Test 00:00:00 of 2) [code = SHINGLES Medic al Center VACCINES (1 of 2)] Future Scheduled 2003-09-[address] [facility] - Test 00:00:00 (procedure) [code = [facility] 97228932] Future Scheduled 2002-10-[address] [facility] - Test 00:00:00 WELLNESS (YEAR 2 or [facility] Center FIRST YEAR if no IPPE) [code = MEDICARE ANNUAL WELLNESS (YEAR 2 or FIRST YEAR if no IPPE)] Future Scheduled 1979-09-07 Screening for [facility] thodist Test 00:00:00 malignant neoplasm of cervix (procedure) [code = 009138321] Future Scheduled 1979-09-[address] [facility] - Test 00:00:00 [facility] cervix (procedure) [code = 041729096] Future Scheduled 1977 DTAP/TDAP/TD VACCINES [facility] - Test 00:00:00 (1 - Tdap) [code = Medical C enter DTAP/TDAP/TD VACCINES (1 - Tdap)] Future Scheduled 1976 Hepatitis C screening [place] [facility] Test 00:00:00 (procedure) [code = 777043754] Future Scheduled 1976 HEPATITIS C SCREENING [facility] - Test 00:00:00 [code = HEPATITIS C Medical Center SCREENING] Future Scheduled 1970 COVID-19 VACCINE (1) [place] [facility] Test 00:00:00 [code = COVID-19 VACCINE (1)] Future Scheduled 1970 COVID-19 VACCINE (1) [facility] - Test 00:00:00 [code = COVID-[address] VACCINE (1)] Future Scheduled 1968 DIABETES: RETINAL EYE [place] [facility] Test 00:00:00 EXAM [code = DIABETES: RETINAL EYE EXAM] Future Scheduled 1968 DIABETIC FOOT EXAM [place] [facility] Test 00:00:00 [code = DIABETIC FOOT EXAM] Future Scheduled 1968 URINE MICROALBUMIN [place] [facility] Test 00:00:00 [code = URINE MICROALBUMIN] Future Scheduled [address] [facility] - Test 00:00:00 [facility] breast (procedure) [code = 365922323] Future Scheduled [address] [facility] - Test 00:00:00 [facility] colon (procedure) [code = 908368826] Encounters Start End Encounter Admission Attending Care Care Encounter Source Date/Time Date/Time Type Type Clinicians Facility Department ID 2018-05-24 2018-05-24 RAFAT [place] [id number] Univers 10:30:00 10:30:00 t; WILL, Surgery nelson [place] SOLIS D.O. ans 2018-04-26 2018-04-26 RAFAT [place] [id number] Univers 10:15:00 10:15:00 t; nelson SOLIS D.O. [place] Adrian SOLIS D.O. ans 2018-04-19 2018-04-19 RAFAT [place] UTP [id number] Univers 10:00:00 10:00:00 t; nelson SOLIS D.O. [place] Adrian SOLIS D.O. ans 2018-03-27 2018-03-27 Karlos ANTONIO [facility] UTP [id number] Univers 10:30:00 10:30:00 t; nelson SOLIS D.O. [place] WILL Physicjoyce Ritter.O. ans 2018-03-22 2018-03-22 Appointlindsey ANTONIO, [facility] UTP [id number] Univers 10:30:00 10:30:00 t; nelson SOLIS D.O. [place] WILL Physicjoyce Ritter.OIggy ans 2018-03-06 2018-03-06 [facility] FARAZ[facility]ULIAJay, [facility] UTP [id number] Univers 08:30:00 08:30:00 t; CYRIL MACK M.D. i ty of [place] [facility] [place] [facility] 2018-02-14 2018-02-14 [facility] UTP [id number] Univers 08:15:00 08:15:00 t; nelson SOLIS D.O. [place] WILL Physicjoyce Ritter.O. ans 2018-01-11 2018-01-11 [facility], [facility] UTP [id number] Univers 10:30:00 10:30:00 t; nelson SOLIS D.O. [place] WILL Physicjoyce CastellanoO. ans Results Test Description Test Time Test Comments Results Result Comments Source Hemoglobin A1c 2019-11-19 09:28:00 Test Item Value Reference Range Interpretation Comme nts Hemoglobin A1C (test code = 4548-4) 8.1 % 4.3-6.1 H Lab Interpretation (test code = 68005-6) Abnormal [facility] [id number] 09:28:00 Test Item Value Reference Range Interpretation Comments HEMOGLOBIN A1C (BEAKER) (test code = 8.1 % 4.3-6.1 H 368) POC-Glucose [id number] 07:44:00 Test Item Value Reference Range Interpretation Comments POC-Glucose Meter (test 130 mg/dL 70-110 H : TE STED AT [facility] code = 1538) [address] [place], 7[address] 30: Marketing Communications Leader/Techni wendy ID = [id number] for KRISSY FERRER Lab Interpretation (test Abnormal code = 50401-9) [facility] [id number] 07:44:00 Test Item Value Reference Range Interpretation Comments POC-GLUCOSE METER 130 mg/dL 70-110 H : TESTED Alexandre T [facility] 6720 (MAN) (test code = TERRI ZAIDI [place], 1538) [address]: Marketing Communications Leader/Techni wendy ID = [id number] for KRISSY FINNEGAN Comprehensive metabolic [id number] 06:55:00 Test Item Value Reference Range Interpretation Comments Protein, Total (test 6.8 See_Comment [Autom ated code = 2885-2) message] The system which generated this result transmit migdalia reference range : 6.0 - 8.3 gm/dL . The reference range was not u sed to interpret th is result as normal/abnormal . Albumin (test code = 3.5 g/dL 3.5-5 32296-3) Alkaline Phosphatase 119 U/L 40-150 (test code = 6768-6) Total Bilirubin (test 0.5 mg/dL 0.2-1.2 code = 1974-2) Sodium (test code = 136 meq/L 250-140 7642-2) Potassium (test code 4.0 meq/L 3.5-5.1 = 2823-3) Chloride (test code = 105 meq/L 98-107 2075-0) CO2 (test code = 26 meq/L 22-29 2028-9) BUN (test code = 17 mg/dL 7-21 3094-0) Creatinine (test code 0.77 mg/dL 0.57-1.25 = 2160-0) Glucose (test code = 162 mg/dL 70-105 H 2345-7) Calcium (test code = 8.8 mg/dL 8.4-10.2 73786-7) AST (test code = 24 U/L 5-34 1920-8) ALT (test code = 27 U/L 6-55 1742-6) EGFR (test code = 76 mL/min/1.73 [place] [address]-2) NOT ACCURATE CREATININE CLEARANCE IN PREDICTING GLOMERULAR FILTRATION RATE . ESTIMATED GFR I S NOT APPLICABLE FOR DIALYSIS PATIEN TS. TRUDY (test code = TRUDY) Marketing Communications Leader ID - PIAYA L Lab Interpretation Abnormal (test code = 41920-9) [facility]PRE[facility] METABOLIC [id number] 06:55:00 Test Item Value Reference Range Interpretation [...] S NOT APPLICABLE FOR DIALYSIS PATIEN TS. Marketing Communications Leader ID - PIAYA LCBC with platelet count + automated [id number] 05:55:00 Test Item Value Reference Range Interpretation Comments WBC (test code = 6690-2) 13.1 See_Comment H [A utomated message] The system Organ[employer] Maid generated this result transmitted ref erence range: 3.5 - 10 .5 K/L. The refe rence range was not u sed to interpret this result as normal/abnor mal. RBC (test code = 789-8) 4.21 See_Comment [Au tomated message] The system [employer] generated this result transmitted ref erence range: 3.93 - 5 .22 M/L. The refe rence range was not u sed to interpret this result as normal/abnor mal. MCHC (test code = 786-4) 35.1 See_Comment [A utomated message] The system [employer] generated this result transmitted ref erence range: [...] See_Comment [Aut omated message] 777-3) The system [employer] generated this result transmitted ref erence range: 150 - 45 0 K/CU MM. The referen ce range was not u sed to interpret this result as normal/abnor mal. MPV (test code = 9.5 fL 9.4-12.3 99963-7) nRBC (test code = 413) 0 See_Comment [Aut omated message] The system [employer] generated this result transmitted ref erence range: [...] H [Aut omated message] 670) The system [employer] generated this result transmitted ref erence range: 1.56 - 6 .13 K/L. The refe rence range was not u sed to interpret this result as normal/abnor mal. # Lymphs (test code = 1.95 See_Comment [Auto mated message] 414) The system [employer] generated this result transmitted ref erence range: 1.18 - 3 .74 K/L. The refe rence range was not u sed to interpret this result as normal/abnor mal. # Monos (test code = 0.81 See_Comment H [Autom ated message] 415) The system [employer] generated this result transmitted ref erence range: 0.24 - 0 .36 K/L. The refe rence range was not u sed to interpret this result as normal/abnor mal. # Eos (test code = 416) 0.02 See_Comment L [Au tomated message] The system [employer] generated this result transmitted ref erence range: 0.04 - 0 .36 K/L. The refe rence range was not u sed to interpret this result as normal/abnor mal. # Baso (test code = 417) 0.01 See_Comment [A utomated message] The system [employer] generated this result transmitted ref erence range: 0.01 - 0 .08 K/L. The refe rence range was not u sed to interpret this result as normal/abnor mal. Immature 0 % 0-1 Granulocytes-Relative (test code = 2801) Lab Interpretation (test Abnormal code = 31788-3) [facility] W/PLT COUNT & AUTO [id number] 05:55:00 Test Item Value Reference Range Interpretation [...] PERCENT (BEAKER) (test code = 2801) POCT-GLUCOSE [id number] 21:17:00 Test Item Value Reference Range Interpretation Comments POC-GLUCOSE METER 255 mg/dL 70-110 H : TESTED A T [facility] 6720 (BEAKER) (test code = TERRI Hirsch [facility], 1538) [address]: Marketing Communications Leader/Techni wendy ID = [id number] for ABHILASH MARTI [id number] 11:22:39INTRA OP IMAGINGReason for exam:->abnormal imaging Fluoroscopic unit utilized for a procedure performed in the OR. No interpretation was requested. Refer to the operative report for findings. Refer to PACS for patient radiation dose information.FL [id number] 11:22:39 Interface, External Ris In - 11/18/2019 11:22 AM CDTFluoroscopic unit utilized for a procedure performed in the OR. No interpretation was requested. Refer to the operative report for findings. Referto PACS for patient radiation dose information.[facility] [id number] 07:45:00 Test Item Value Reference Range Interpretation Comments POC-GLUCOSE METER 155 mg/dL 70-110 H : TESTED A T [facility] 6720 (MAN) (test code = TERRI ZAIDI [place], 1538) [address]: Marketing Communications Leader/Techni wendy ID = [id number] for ED WARDS, KATIE TISSUE [id number] 09:36:00Surgical Pathology Report Case: [id number] Authorizing Provider: Vinnie Oglesby Collected: 08/26/2019 12:43 PM MD Beatrice Ordering Location: [facility] Endoscopy Received: 08/26/2019 01:56 PM Services Pathologist: Isac Cummins MD Specimen: Biopsy, Gastric, gastric polyp A. STOMACH, POLYP, BIOPSY: - ANTRAL MUCOSA WITH POLYPOID FOVEOLAR HYPERPLASIA - NEGATIVE FOR HELICOBACTER PYLORI ORGANISMS BY WARTHIN STARRY STAIN - NEGATIVE FOR INTESTINAL METAPLASIA, DYSPLASIA, MALIGNANCY SigningPathologist Direct Phone Line: [phone] signed by Isac Cummins MD on 08/27/2019 at 9:36 [id number]: upper endoscopy, biopsyPre and postop diagnosis: acute [...] evaluated Immunohistochemistry technical testing was performed at [facility], Pathology Laboratory where it was developed and [...] to perform high complexity clinical laboratory testing.POCT-GLUCOSE [id number] 13:26:00 Test Item Value Reference Range Interpretation Comments POC-GLUCOSE METER 122 mg/dL 70-110 H : TESTED A T [facility] 6720 (delicious) (test code = Zannel [facility], 1538) [address]: Marketing Communications Leader/Techni wendy ID = [id number] for Ilda Bailey POCT-GLUCOSE [id number] 11:40:00 Test Item Value Reference Range Interpretation Comments POC-GLUCOSE METER 137 mg/dL 70-110 H : TESTED A T [facility] 6720 (delicious) (test code = Zannel [facility], 1538) 611[address]: Marketing Communications Leader/Techni wendy ID = [id number] for KATIE CANUT COLON SEGMENT RESEC.NOT [id number] 19:21:00 RUN DATE: 11/14/18 [facility] PAGE 1 RUN TIME: 810 Specimen Inquiry RUN USER: INTERFACE PATIENT: DAISY HAMMER [facility]: [id number] AGE/SX: 58/F ROOM[facility] RE11/11/18REG DR: Betito Collazo MD : 56 BED: A DIS: 11/13/18 STATUS: DIS Sharla TLOC: SPEC #: [id number] RECD: 11/11/18 STATUS: SOUJer REDemetra #: [id number] CRISTINO: 11/11/18- SUBM DR: Betito Collazo MD ENTERED: 11/11/18 SP TYPE: COLONR OTHR DR: ORDERED: LEVEL V SURGICA CODES: O45578 - COLON, NOS PROCEDURES: LEVEL V SURGICA (Incomplete) TISSUES: COLON, NOS - RECTOSIGMOID DIVERTICULITIS CLINICAL HISTORY 58 year old, diverticulitis (wpd) FINAL DIAGNOSIS Designated "rectosigmoid diverticulitis", segmental resection: - diverticular disease with peridiverticular fibrosis - intestinal rings - unremarkable CPT code(s): 80311 pkg/wpd 11/13/18 GROSS DESCRIPTION ANATOMIC SOURCE OFTISSUE [...] and contains unremarkable mucosa and surrounding tissue. [place] sections are submitted in A2. The largest [...] Specimen Inquiry RUN USER: INTERFACE SPEC #: [id number] PATIENT: DAISY HAMMER #[id number] (Continued) GROSS DESCRIPTION (Continued) 1.0 cm and containing green-brown fecal material. No discrete perforationor discoloration in those areas are noted. [place] sections of the intestine with the diverticula are submitted in A3 - A8. Examination of attached adipose tissue reveals no discrete lymph nodes. [place] sections are submitted in A9 - A16. /wpd 11/11/18 @ 5658 MICROSCOPIC DESCRIPTION The specimen consists of a segment of rectosigmoid colon containing numerous diverticula which extend through the muscularis into the rectosigmoid adipose tissue. Foci of fibrosis are present adjacent to the diverticula. No granulomas, dysplasia or neoplasia are identified. The intestinal rings are unremarkable. abram/wpd 11/13/18 Signed Deena Storm 11/13/181920 ENDOF REPORT [id number] 07:10:00 Test Item Value Reference Range Interpretation Comments GLUBED (test code = GLUBED) 180 mg/dL 65-110 H COMPREHENSIVE METABOLIC [id number] 05:48:00 Test Item Value Reference Range Interpretation [...] 106 units/L 46-116 N code = ALKP) [id number] 05:48:00 Test Item Value Reference Range Interpretation Comments MAGNESIUM (test code = MAG) 1.8 mg/dL 1.8-2.4 N CBC W/AUTO [id number] 04:49:00 Test Item Value Reference Range Interpretation [...] REQUIRED (test NORMAL NORMAL code = PLTMR) [id number] 21:57:00 Test Item Value Reference Range Interpretation Comments GLUBED (test code = GLUBED) 278 mg/dL 65-110 H [id number] 17:26:00 Test Item Value Reference Range Interpretation Comments GLUBED (test code = 292 mg/dL 65-110 H Hypoglyc emic Protoco GLUBED) [id number] 12:11:00 Test Item Value Reference Range Interpretation Comments GLUBED (test code = GLUBED) 131 mg/dL 65-110 H [id number] 07:23:00 Test Item Value Reference Range Interpretation Comments GLUBED (test code = GLUBED) 110 mg/dL 65-110 N CHEMISTRY 7 [id number] 05:23:00 Test Item Value Reference Range Interpretation [...] code = CA) 7.8 mg/dL 8.4-10.2 L [id number] 05:23:00 Test Item Value Reference Range Interpretation Comments MAGNESIUM (test code = MAG) 1.8 mg/dL 1.8-2.4 N CBC W/AUTO [id number] 05:19:00 Test Item Value Reference Range Interpretation [...] REQUIRED (test NORMAL NORMAL code = PLTMR) [id number] 22:07:00 Test Item Value Reference Range Interpretation Comments GLUBED (test code = GLUBED) 171 mg/dL 65-110 H [id number] 17:41:00 Test Item Value Reference Range Interpretation Comments GLUBED (test code = GLUBED) 157 mg/dL 65-110 H [id number] 13:26:00 Test Item Value Reference Range Interpretation Comments GLUBED (test code = GLUBED) 154 mg/dL 65-110 H [id number] 06:54:00 Test Item Value Reference Range Interpretation Comments GLUBED (test code = GLUBED) 143 mg/dL 65-110 H CHEMISTRY 7 [id number] 13:07:00 Test Item Value Reference Range Interpretation [...] = CA) 8.5 mg/dL 8.4-10.2 N HGB [id number] 12:51:00 Test Item Value Reference Range Interpretation Comments HEMOGLOBIN (test code = HGB) 13.6 g/dL 10.7-13.9 N HEMATOCRIT (test code = HCT) 40.3 % 32.1-42.1 N
[2020-09-16] MEDS ORDERED: ONDANSETRON 4 MG/2 ML VIAL ONE (15:25)
[2020-09-16] MEDS ORDERED: MORPHINE 2 MG/ML SYR ONE ×2 (15:25→17:19)
[2020-09-16] MEDS ORDERED: ASPIRIN 81 MG CHEWABLE TABLET ONE (15:25)
[2020-09-16 15:43] LABS: Absolute Lymphocytes (CBC) 2.3 K/uL (0.7-4.9); Basophils % 1.1 % (0-1.3); Hematocrit 40.7 % (36.0-45.0); Lymphocytes % 26.1 % (15.3-44.8); MPV 8.4 fL (7.6-11.3); RBC Red Blood Cell Count 4.49 M/uL (3.86-4.86)
[2020-09-16 15:48] LABS: Protime INR 0.95
[2020-09-16 16:06] LABS: ALT/SGPT 40 U/L (12-78); AST/SGOT 28 U/L (15-37); Albumin 3.7 g/dL (3.4-5.0); Alkaline Phosphatase 156 U/L (45-117); BUN Blood Urea Nitrogen 24 mg/dL (7-18); Bicarbonate 24 mmol/L (21-32); Bilirubin Direct < 0.1 mg/dL (0-0.2); Bilirubin Total 0.3 mg/dL (0.2-1.0); Glucose Level 203 mg/dL (74-106); Magnesium 2.1 mg/dL (1.8-2.4); NT PRO-BNP 33 pg/mL (<125); Potassium 3.6 mmol/L (3.5-5.1); Protein, Total 7.9 g/dL (6.4-8.2); Sodium Level 139 mmol/L (136-145); Troponin (Emerg Dept Use Only) < 0.02 ng/mL (0.0-0.045)
--- NOTE | 2020-09-16 16:28 | RAD REPORT ---
EXAM DESCRIPTION: Mohsen Single View09/16/2020 3:20 pm CLINICAL HISTORY: Chest pain COMPARISON: July 2020 FINDINGS: The lungs appear clear of acute infiltrate. The heart is normal size IMPRESSION: No acute abnormalities displayed
--- NOTE | 2020-09-16 17:28 | RAD REPORT ---
EXAM DESCRIPTION: USExtremity Venous Uni Ltd09/16/2020 5:00 pm CLINICAL HISTORY: left leg pain COMPARISON: August 2020 FINDINGS: Left common femoral, superficial femoral, popliteal and posterior tibial veins are compre ssible and demonstrate augmentation. Doppler demonstrates good flow. IMPRESSION: No evidence of deep venous thrombosis involving the left lower extremity.
--- NOTE | 2020-09-16 19:57 | ER ---
Nurse's Notes [facility] Name: Robyn Carrion Age: 60 yrs Sex: Female : 1960 Arrival Date: 09/16/2020 Time: 14:34 Bed 26 Private MD: Berry Suero F Diagnosis: Other chest pain;Pain in left lower leg Presentation: 09/16 14:39 Chief complaint: Patient states: i have a lot of LEFT calf pain that started yesterday. tw2 i had a rough night. throughout today my leg is hurting worse and worse. i know they told me i had varicose veins but this feels different. i also feel short of breath about 9 am this morning and some chest pressure. Coronavirus screen: shortness of breath, Client presents with at least one sign or symptom that may indicate coronavirus-19. Standard/surgical mask placed on the client. Provider contacted for isolation considerations. Ebola Screen: Patient denies travel to an Ebola-affected area in the 21 days before illness onset. Initial Sepsis Screen: Does the patient meet any 2 criteria? No. Patient's initial sepsis screen is negative. Does the patient have a suspected source of infection? No. Patient's initial sepsis screen is negative. Risk Assessment: Do you want to hurt yourself or someone else? Patient reports no desire to harm self or others. Onset of symptoms was September 16, 2020. 14:39 Method Of Arrival: Ambulatory tw2 14:39 Acuity: DARA 3 tw2 14:42 Chief complaint: Patient states: i also feel like i am going to throw up. tw2 Triage Assessment: 14:42 General: Appears in no apparent distress. uncomfortable, Behavior is calm, cooperative, tw2 appropriate for age. Pain: Complains of pain in left leg. Cardiovascular: Reports shortness of breath. GI: Reports nausea. Historical: - Allergies: 14:42 HYDROCODONE; tw2 - Home Meds: 14:42 atorvastatin Oral [Active]; Lantus Sub-Q [Active]; lisinopril Oral [Active]; Creon Oral tw2 [Active]; Amitiza Oral as needed [Active]; - PMHx: 14:42 fernando esophageal disease; cricopharyngeal spasm; Diabetes - IDDM; Hernia; High tw2 Cholesterol; Hyperlipidemia; - PSHx: 14:42 Hernia repair; Colon Resection; Cholecystectomy; Hysterectomy; stent in pancreas; ERCP; tw2 - Immunization history:: Adult Immunizations. - Social history:: Smoking status: Patient denies any tobacco usage or history of. Screenin:46 Abuse screen: Denies threats or abuse. Nutritional screening: No deficits noted. tw2 Tuberculosis screening: No symptoms or risk factors identified. Fall Risk Secondary diagnosis (15 points) impaired mobility. Assessment: 14:43 Reassessment: pt noted to be unsteady on feet. standby assistance needed. tw2 14:58 General: Appears in no apparent distress. uncomfortable, Behavior is calm, cooperative. vg1 Pain: Complains of pain in mid-sternal area and left leg Pain does not radiate. Pain began yesterday Noted to be crying, grimacing. Neuro: Level of Consciousness is awake, alert, obeys commands, Oriented to person, place, time, situation, Denies headache. Cardiovascular: Patient's skin is warm and dry. Respiratory: Airway is patent Respiratory effort is even, unlabored. GI: Reports nausea, Patient currently denies diarrhea, vomiting. : No signs and/or symptoms were reported regarding the genitourinary system. EENT: No signs and/or symptoms were reported regarding the EENT system. Derm: Skin is intact, is healthy with good turgor. Musculoskeletal: Range of motion: limited in left leg; pt reports pain upon walking. 16:53 Reassessment: Patient appears in no apparent distress at this time. No changes from vg1 previously documented assessment. Patient and/or family updated on plan of care and expected duration. Pain level reassessed. Patient is alert, oriented x 3, equal unlabored respirations, skin warm/dry/pink. 19:00 Reassessment: Patient appears in no apparent distress at this time. Patient and/or vg1 family updated on plan of care and expected duration. Pain level reassessed. Patient is alert, oriented x 3, equal unlabored respirations, skin warm/dry/pink. Pt stated chest pressure is intermittent and states left calf pain is 5/10. 20:51 Reassessment: Patient appears in no apparent distress at this time. Patient and/or vg1 family updated on plan of care and expected duration. Pain level reassessed. Patient is alert, oriented x 3, equal unlabored respirations, skin warm/dry/pink. Vital Signs: 14:39 BP 155 / 89; Pulse 97; Resp 18; Temp 99(TE); Pulse Ox 100% on R/A; Weight 65.77 kg (R); tw2 Height 5 ft. 4 in. (162.56 cm); Pain 7/10; 15:01 BP 148 / 80; Pulse 94; Resp 16; Pulse Ox 100% on R/A; vg1 15:30 BP 151 / 73; Pulse 74; Resp 16; Pulse Ox 100% ; vg1 16:45 BP 156 / 73; Pulse 72; Resp 14; Pulse Ox 100% on R/A; vg1 17:00 BP 163 / 84; Pulse 70; Resp 16; Pulse Ox 100% on R/A; vg1 17:30 BP 155 / 72; Pulse 66; Resp 18; Pulse Ox 100% on R/A; vg1 18:00 BP 152 / 69; Pulse 66; Resp 16; Pulse Ox 100% on R/A; vg1 18:30 BP 152 / 65; Pulse 64; Resp 14; Pulse Ox 100% on R/A; vg1 19:00 BP 145 / 67; Pulse 65; Resp 14; Pulse Ox 100% on R/A; vg1 19:30 BP 150 / 67; Pulse 68; Resp 18; Pulse Ox 100% on R/A; vg1 20:30 BP 140 / 70; Pulse 76; Resp 14; Pulse Ox 100% ; vg1 14:39 Body Mass Index 24.89 (65.77 kg, 162.56 cm) tw2 ED Course: 14:34 Patient arrived in ED. mr 14:34 Berry Suero MD is Private Physician. mr 14:41 Triage completed. tw2 14:43 Arm band placed on. tw2 14:43 Bed in low position. Call light in reach. Pulse ox on. NIBP on. tw2 14:44 Shakira Childers, HAIDER is Primary Nurse. vg1 15:01 Patient maintains SpO2 saturation greater than 95% on room air. vg1 15:02 Tian Adams PA is PHCP. cp 15:02 Eric Umana MD is Attending Physician. cp 15:15 Missed attempt(s): 20 gauge in right wrist. blood collected.. vg1 15:19 XRAY Chest (1 view) In Process Unspecified. EDMS 15:25 Inserted saline lock: 22 gauge in left antecubital area, using aseptic technique. vg1 17:00 US Extremity Venous Unilateral Ltd In Process Unspecified. EDMS 20:51 No provider procedures requiring assistance completed. IV discontinued, intact, vg1 bleeding controlled, No redness/swelling at site. Pressure dressing applied. Administered Medications: 15:27 Drug: Zofran (Ondansetron) 4 mg Route: IVP; Site: left antecubital; vg1 16:53 Follow up: Response: No adverse reaction; Nausea is decreased vg1 15:29 Drug: morphine 2 mg Route: IVP; Site: left antecubital; vg1 15:31 Drug: Aspirin Chewable Tablet 162 mg Route: PO; vg1 16:53 Follow up: Response: No adverse reaction vg1 17:07 Drug: morphine 2 mg {Note: rass 0.} Route: IVP; Site: left antecubital; vg1 20:52 Follow up: Response: No adverse reaction; Pain is decreased vg1 Outcome: 19:57 Discharge ordered by MD. cp 20:51 Discharged to home ambulatory. vg1 20:51 Condition: stable 20:51 Discharge instructions given to patient, Instructed on discharge instructions, follow up and referral plans. medication usage, Demonstrated understanding of instructions, follow-up care, medications, Prescriptions given X 2. 20:52 Patient left the ED. vg1 Signatures: Dispatcher [employer] EDWA Delisa AldanaTian PA PA Lainey Almeida RN RN tw2 Shakira Childers RN RN vg1 Corrections: (The following items were deleted from the chart) 14:47 14:39 Chief complaint: Patient states: i have a lot of LEFT calf pain that started tw2 yesterday. i had a rough night. throughout today today my leg is hurting. i also feel short of breath about 9 am this morning and some chest pressure tw2 15:31 15:15 Inserted saline lock: 22 gauge in left antecubital area, using aseptic technique. vg1 vg1
--- NOTE | 2020-09-16 19:57 | EDPHYS ---
Physician Documentation [facility] Name: Robyn Carrion Age: 60 yrs Sex: Female : 1960 Arrival Date: 09/16/2020 Time: 14:34 Bed 26 Private MD: Berry Suero F ED Physician Eric Umana HPI: 09/16 15:05 This 60 yrs old Female presents to ER via Ambulatory with complaints of Chest cp Pressure, Leg Pain. 15:05 The patient presents with pain, that is chronic. cp 15:05 The complaints affect the left calf. Onset: The symptoms/episode began/occurred cp chronic, became worse this morning. Modifying factors: the symptoms are aggravated by bending knee. Associated signs and symptoms: Pertinent positives: calf tenderness, chest pressure that waxes and wanes, Pertinent negatives fever, numbness, warmth, weakness. Treatment prior to arrival includes: no previous treatment. Severity of symptoms: in the emergency department the symptoms are unchanged, despite home interventions. Historical: - Allergies: 14:42 HYDROCODONE; tw2 - Home Meds: 14:42 atorvastatin Oral [Active]; Lantus Sub-Q [Active]; lisinopril Oral [Active]; Creon Oral tw2 [Active]; Amitiza Oral as needed [Active]; - PMHx: 14:42 fernando esophageal disease; cricopharyngeal spasm; Diabetes - IDDM; Hernia; High tw2 Cholesterol; Hyperlipidemia; - PSHx: 14:42 Hernia repair; Colon Resection; Cholecystectomy; Hysterectomy; stent in pancreas; ERCP; tw2 - Immunization history:: Adult Immunizations. - Social history:: Smoking status: Patient denies any tobacco usage or history of. ROS: 15:10 Constitutional: Negative for body aches, chills, fever, poor PO intake. cp 15:10 Eyes: Negative for injury, pain, redness, and discharge. cp 15:10 Cardiovascular: Positive for chest pressure, Negative for edema, palpitations. 15:10 Respiratory: Negative for cough, wheezing. 15:10 Abdomen/GI: Negative for abdominal pain, nausea, vomiting, and diarrhea. 15:10 MS/extremity: Positive for pain, tenderness, of the left leg. 15:10 Skin: Negative for cellulitis, rash. 15:10 Neuro: Negative for altered mental status, headache, syncope, weakness. 15:10 All other systems are negative. cp Exam: 15:00 ECG was reviewed by the Attending Physician. cp 15:15 Constitutional: The patient appears in no acute distress, alert, awake, cp non-diaphoretic, non-toxic, well developed, well nourished. 15:15 Head/Face: Normocephalic, atraumatic. cp 15:15 Eyes: Periorbital structures: appear normal, Conjunctiva: normal, no exudate, no injection, Sclera: no appreciated abnormality, Lids and lashes: appear normal, bilaterally. 15:15 ENT: External ear(s): are unremarkable, Nose: is normal, Mouth: Lips: moist, Oral mucosa: moist, Posterior pharynx: Airway: no evidence of obstruction, patent. 15:15 Neck: ROM/movement: is normal, is supple, without pain, no range of motions limitations. 15:15 Chest/axilla: Inspection: normal, Palpation: is normal, no crepitus, no tenderness. 15:15 Cardiovascular: Rate: normal, Rhythm: regular, Edema: is not appreciated, JVD: is not appreciated. 15:15 Respiratory: the patient does not display signs of respiratory distress, Respirations: normal, no use of accessory muscles, no retractions, labored breathing, is not present, Breath sounds: are clear throughout, no decreased breath sounds, no stridor, no wheezing. 15:15 Abdomen/GI: Inspection: abdomen appears normal, Palpation: abdomen is soft and non-tender, in all quadrants. 15:15 Back: pain, is absent, ROM is normal. 15:15 Musculoskeletal/extremity: Extremities: grossly normal except: noted in the left calf: pain, tenderness, There is no evidence of erythema, swelling, Pulses: noted to be 2+ in the left dorsalis pedis artery, the left calf Severe pain noted. 15:15 Skin: cellulitis, is not appreciated, no rash present. 15:15 Neuro: Orientation: to person, place \T\ time. Mentation: is normal. Vital Signs: 14:39 BP 155 / 89; Pulse 97; Resp 18; Temp 99(TE); Pulse Ox 100% on R/A; Weight 65.77 kg (R); tw2 Height 5 ft. 4 in. (162.56 cm); Pain 10/16; 15:01 BP 148 / 80; Pulse 94; Resp 16; Pulse Ox 100% on R/A; vg1 15:30 BP 151 / 73; Pulse 74; Resp 16; Pulse Ox 100% ; vg1 16:45 BP 156 / 73; Pulse 72; Resp 14; Pulse Ox 100% on R/A; vg1 17:00 BP 163 / 84; Pulse 70; Resp 16; Pulse Ox 100% on R/A; vg1 17:30 BP 155 / 72; Pulse 66; Resp 18; Pulse Ox 100% on R/A; vg1 18:00 BP 152 / 69; Pulse 66; Resp 16; Pulse Ox 100% on R/A; vg1 18:30 BP 152 / 65; Pulse 64; Resp 14; Pulse Ox 100% on R/A; vg1 19:00 BP 145 / 67; Pulse 65; Resp 14; Pulse Ox 100% on R/A; vg1 19:30 BP 150 / 67; Pulse 68; Resp 18; Pulse Ox 100% on R/A; vg1 20:30 BP 140 / 70; Pulse 76; Resp 14; Pulse Ox 100% ; vg1 14:39 Body Mass Index 24.89 (65.77 kg, 162.56 cm) tw2 MDM: 15:04 Patient medically screened. cp 19:54 ED course: review of [place] prescription program website: narcotic score 150, sedative cp score 080 and overdose risk score 230. last rx written 06/28/2020 for tramadol 50 mg #10. 19:57 Data reviewed: vital signs, nurses notes, lab test result(s), EKG, radiologic studies, cp plain films, ultrasound. 19:57 Counseling: I had a detailed discussion with the patient and/or guardian regarding: the cp historical points, exam findings, and any diagnostic results supporting the discharge/admit diagnosis, lab results, radiology results, the need for outpatient follow up, an resource recovery engineer, to return to the emergency department if symptoms worsen or persist or if there are any questions or concerns that arise at home. Response to treatment: VSS. Pain improved with meds. EKG, troponin enzymes negative. Will discharge to home for continued monitoring. 09/16 14:57 Order name: Basic Metabolic Panel; Complete Time: 18:11 vg1 09/16 18:12 Interpretation: Normal except: CL 109; GLUC 203; BUN 24; GFR 54. 09/16 14:57 Order name: CBC with Diff; Complete Time: 18:11 [facility] 09/16 18:12 Interpretation: Normal except: MCV 90.7. 09/16 14:57 Order name: LFT's; Complete Time: 18:11 [facility] 09/16 14:57 Order name: Magnesium; Complete Time: 18:11 [facility] 09/16 14:57 Order name: NT PRO-BNP; Complete Time: 18:11 [facility] 09/16 14:57 Order name: PT-INR; Complete Time: 18:11 [facility] 09/16 14:57 Order name: Troponin (emerg Dept Use Only); Complete Time: 18:11 [facility] 09/16 14:57 Order name: XRAY Chest (1 view); Complete Time: 18:11 [facility] 09/16 18:12 Interpretation: Report review. 09/16 15:24 Order name: US Extremity Venous Unilateral Ltd; Complete Time: 18:11 09/16 18:24 Order name: D-Dimer; Complete Time: 19:55 09/16 19:56 Interpretation: Reviewed. 09/16 18:24 Order name: LAB Add On 09/16 18:24 Order name: Troponin I; Complete Time: 19:38 09/16 19:38 Interpretation: Reviewed. 09/16 14:57 Order name: EKG; Complete Time: 14:58 [facility] 09/16 14:57 Order name: Cardiac monitoring; Complete Time: 14:58 [facility] 09/16 14:57 Order name: EKG - Nurse/Tech; Complete Time: 14:58 [facility] 09/16 14:57 Order name: IV Saline Lock; Complete Time: 15:34 09/16 14:57 Order name: Labs collected and sent; Complete Time: 15:34 [facility] 09/16 14:57 Order name: O2 Per Protocol; Complete Time: 14:58 [facility] 09/16 14:57 Order name: O2 Sat Monitoring; Complete Time: 14:58 [facility] 09/16 18:28 Order name: Labs - recollect needed: D-dimer can't be added on; Complete Time: 19:03 iw EC:00 Rate is 90 beats/min. Rhythm is regular. IA interval is normal. QRS interval is normal. cp QT interval is normal. Interpreted by me. Reviewed by me. Administered Medications: 15:27 Drug: Zofran (Ondansetron) 4 mg Route: IVP; Site: left antecubital; vg1 16:53 Follow up: Response: No adverse reaction; Nausea is decreased vg1 15:29 Drug: morphine 2 mg Route: IVP; Site: left antecubital; vg1 15:31 Drug: Aspirin Chewable Tablet 162 mg Route: PO; vg1 16:53 Follow up: Response: No adverse reaction vg1 17:07 Drug: morphine 2 mg {Note: rass 0.} Route: IVP; Site: left antecubital; vg1 20:52 Follow up: Response: No adverse reaction; Pain is decreased vg1 Disposition: 09/17 07:04 Co-signature as Attending Physician, Eric Umana MD I agree with the assessment and kdr plan of care. Disposition: 09/16/20 19:57 Discharged to Home. Impression: Other chest pain, Pain in left lower leg. - Condition is Stable. - Discharge Instructions: Nonspecific Chest Pain, Musculoskeletal Pain, Aspirin and Your Heart. - Prescriptions for Mobic 7.5 mg Oral Tablet - take 1 tablet by ORAL route once daily take with food; 20 tablet. Ultracet 37.5- 325 mg Oral Tablet - take 1 tablet by ORAL route every 6 hours - for up to 5 days; do not exceed 8 tablets per day.; 20 tablet. - Medication Reconciliation Form, Thank You Letter, Antibiotic Education, Prescription Opioid Use form. - Follow up: Private Physician; When: 1 - 2 days; Reason: Recheck today's complaints. - Problem is an ongoing problem. - Symptoms have improved. Signatures: Dispatcher [employer] EDFL Eric Umana MD MD kdr Williams, Irene, RN RN Tian Smith PA PA cp Wise, Tara, RN RN tw2 Shakira Childers RN RN vg1 Corrections: (The following items were deleted from the chart) 09/16 20:52 19:57 09/16/2020 19:57 Discharged to Home. Impression: Other chest pain; Pain in left vg1 lower leg. Condition is Stable. Forms are Medication Reconciliation Form, Thank You Letter, Antibiotic Education, Prescription Opioid Use. Follow up: Private Physician; When: 1 - 2 days; Reason: Recheck today's complaints. Problem is an ongoing problem. Symptoms have improved. cp
[2020-09-16 20:59] VITALS: TEMP 99; O2SAT 100
[2020-09-16 21:13] VITALS: BP 140/70
== END 2020-09-16 20:52 | disposition home or self-care (01) ==
LOC: ER 14:30
DX: R07.89 Other chest pain (principal); M79.662 Pain in left lower leg; E11.9 Type 2 diabetes mellitus without complications; E78.5 Hyperlipidemia, unspecified; Z79.4 Long term (current) use of insulin; Z88.5 Allergy status to narcotic agent
CPT/HCPCS: 85025; 80048; 36415; 83735; 85610; 85379; 80076; 84484 ×2; 83880; 71045; 93971; 96375; 96374; 99284; J2270 ×2; J2405; 93005

== ENCOUNTER 2020-12-22 14:11 | Emergency (ER) | payer OTHER ==
--- OUTSIDE RECORDS SUMMARY | 2020-12-22 14:15 | XMS REPORT | Continuity of Care Document ---
:1960 Author Organization [facility] t Address [address] Brennan [address] [place] [address] Care Team Providers Name Role Phone Paradise Suero MD Primary Care Physician RENY OGLESBY Attending Clinician Unavailable MARISELA Attending Clinician Unavailable FREDERICK Attending Clinician Unavailable RENY OGLESBY Admitting Clinician Unavailable Payers Payer Name Policy Type Policy Number Effective Date Expiration Date S ource Problems Condition Condition Condition Status Onset Resolution Last Treating Co mments Source Name Details Category Date Date Treatment Clinician Date Biliary Biliary Disease Active [facility] 00 [place] No known No known Disease Metho di active active st problems problems Hospit a l Hyperlipid Hyperlipid [facility] Hypertensi Hypertensi Problem [facility] Diabetes Diabetes Problem Active Unive rs ity [facility] Physici ans Follow up Follow up Problem [facility] Allergies, Adverse Reactions, Alerts Allergy Allergy Status Severity Reaction(s) Onset Inactive Treating Comm ents Source Name Type Date Date Clinician Codeine Drug Active Nausea And 0 [facility] Hydrocod Drug Active Nausea And As per [facility] one-Acet Allergy Vomiting, 08-14 patient, Romina blank - aminophe Other (See 00:00: " it Medi sarah n Comments) 00 wears on Cente r my stomach" hydrocod DA Active [facility] [place] Hydrocod Propensi Active Method i one ty to 11-01 st adverse 00:00: Hospita reaction 00 l s to drug Family History Family Member Diagnosis Comments Start Date Stop Date Source Natural father Diabetes [facility] Natural father Hypertension [facility] Natural mother Diabetes [facility] Natural mother Heart disease [facility] mother Hypertension [facility] Unknown Family Family history of Other Uni versity of Member diabetes mellitus [place] [facility] Unknown Family Family history of Other Uni versity of Member hypertension [place] [facility] Unknown Family Family history of Other Uni versity of Member Heart problem [place] [facility] Social History Social Habit Start Date Stop Date Quantity Comments Source History [facility] - Alcohol Std Drinks Medica l Center History SDAK [facility] - Alcohol Binge [facility] [place] [facility] History of tobacco Current smoker [facility] use [facility] Alcohol intake 2019-11-18 2019-11-18 Current drinker [facility]:00 of alcohol Medical Center (finding) History SDAK 2019-11-17 2019-11-[address] [facility] - Alcohol Comment 00:00:00 00:00:00 Medical C enter Tobacco use and 2019-08-15 2019-08-[address] [facility] - exposure 00:00:00 00:00:00 Medical Center History SDOH 2019-08-15 2019-08-[address] [facility] - Alcohol Frequency 00:00:00 00:00:00 Medical Center Tobacco Comment 2019-08-15 2019-08-15 quit [address] [facility] - 00:00[facility]00 00:00:00 ago Medical Center Cigarettes smoked 2019-08-15 2019-08-[address] [facility] - current (pack per 00:00:00 00:00:00 Medical Center day) - Reported Cigarette 2019-08-15 2019-08-[address] [facility] - pack-years 00:00:00 00:00:00 Medical Center Sex Assigned At [address] [address] [facility] - 00:00:00 00:00:00 Medical Center Smoking Status Start Date Stop Date Source Former smoker 2019-08-15 00:00:00 2019-08-15 00:00:[address] [facility] Medications Ordered Filled Start Stop Current Ordering Indication Dosage Frequency Signature Comments Components Source Medication Medication Date Date Medication? Clinician (SIG) Name Name atorvastati 2020-0 Yes 40mg QD Take [address] [facility] (LIPITOR) 8-12 by mouth Luke s - 40 MG 13:03: daily. Medical tablet 21 Center dicyclomine 2020-0 Yes 20mg Take [address] [...] daily as needed . lipase/prot 2020-0 Yes [id number] Take [facility] ease/amylas 8-12 [id number] 36,000 [facility] - e (CREON 13:03: 3D [...] tablet hours as needed for Nausea. sucralfate Yes 1g Q.25D Take [address] (CARAFATE) 8-12 by mouth 4 Mini es - 1 gram 13:03: (four) Medical tablet 21 times Center daily. No known No Methodi medications [facility] Hospita l Vital Signs Vital Name Observation Time Observation Value Comments Source Height 2018-05-24 10:25:00 62 [in_us] Universi ty [facility] Physician s Weight 2018-05-24 10:25:00 154.9 [lb_av] [facility] [place] [facility] Body Mass Index 2018-05-24 10:25:00 28.33 kg/m2 [facility] [place] Physician s BP Systolic 2018-04-26 10:21:00 127 mm[Hg] [facility]i ty [facility] Physician s BP Diastolic 2018-04-26 10:21:00 76 mm[Hg] [facility] Physician s Height 2018-04-26 10:21:00 62 [in_us] Universi ty [facility] Physician s Weight 2018-04-26 10:21:00 155.6 [lb_av] [facility] [place] [facility] Body Mass Index 2018-04-26 10:21:00 28.46 kg/m2 Unive rsity [facility] [place] Physician s Temperature 2018-04-26 10:21:00 97 [degF] Universi ty [facility] Physician s Heart Rate 2018-04-26 10:21:00 73 /min [facility] Physician s Procedures This patient has no known procedures. Plan of Care Planned Activity Planned Date Details Comments Source Future Scheduled 2020-12-[address] [facility] - Test 00:00:00 (Season Ended) [code = Medic al Center INFLUENZA VACCINE (Season Ended)] Future Scheduled 2020-04-[address] [facility] - Test 00:00:00 (12+) [code = [facility] DEPRESSION SCREENING (12+)] Future Scheduled 2008 SHINGLES VACCINES ([address] [facility] - Test 00:00:00 of 2) [code = SHINGLES Medic al Center VACCINES (1 of 2)] Future Scheduled 2003-09-[address] [facility] - Test 00:00:00 (procedure) [code = [facility] 97109882] Future Scheduled 2002-10-[address] [facility] - Test 00:00:00 WELLNESS (YEAR 2 or Medical Center FIRST YEAR if no IPPE) [code = MEDICARE ANNUAL WELLNESS (YEAR 2 or FIRST YEAR if no IPPE)] Future Scheduled 1979-09-[address] [facility] - Test 00:00:00 [facility] cervix (procedure) [code = 929676666] Future Scheduled 1977 DTAP/TDAP/TD VACCINES [facility] Test 00:00:00 (1 - Tdap) [code = Medical C enter DTAP/TDAP/TD VACCINES (1 - Tdap)] Future Scheduled 1976 HEPATITIS C SCREENING [facility] Test 00:00:00 [code = HEPATITIS C Medical Center SCREENING] Future Scheduled 1970 COVID-19 VACCINE (1) [facility] Test 00:00:00 [code = COVID-[address] VACCINE (1)] Future Scheduled [address] - Test 00:00:00 malignant ne[facility] breast (procedure) [code = 306014244] Future Scheduled [address] [facility] - Test 00:00:00 malignant [facility] colon (procedure) [code = 497231365] Future Scheduled DIABETES: RETINAL EYE [facility] EXAM [code = DIABETES: RETINAL EYE EXAM] Future Scheduled DIABETIC FOOT [facility] [code = DIABETIC FOOT EXAM] Future Scheduled URINE MICROALBUMIN [facility] Test [code = URINE MICROALBUMIN] Future Scheduled COVID-19 [facility]ACCINE (1) [facility] [code = COVID-19 VACCINE (1)] Future Scheduled Hepatitis C screening [facility] Test (procedure) [code = 237309879] Future Scheduled [facility] malignant neoplasm of cervix (procedure) [code = 412082626] Future Scheduled BREAST CANCER [facility] Test SCREENING [code = BREAST CANCER SCREENING] Future Scheduled COLONOSCOPY [facility]CRE[facility]ING [facility] Test [code = COLONOSCOPY SCREENING] Future Scheduled SHINGLES VACCINES (#1) [facility] [code = SHINGLES VACCINES (#1)] Future Scheduled [facility]INE [facility] [code = INFLUENZA VACCINE] Encounters Start End Encounter Admission Attending Care Care Encounter Source Date/Time Date/Time Type Type Clinicians Facility Department ID 2018-05-24 2018-05-24 Karlos ANTONIO, RAFAT [place] [id number] Univers 10:30:00 10:30:00 t; WILL, Surgery Andreea Glass.O. [facility] WILL, Physici D.O. ans 2018-04-26 2018-04-26 Karlos ANTONIO, RAFAT UTP [id number] Univers 10:15:00 10:15:00 t; WILL ity o horace ANTONIO D.O. [place] WILL, Physici D.O. ans 2018-04-19 2018-04-19 Karlos ANTONIO, UTP UTP [id number] Univers 10:00:00 10:00:00 t; WILLnelson D.O. [place] WILL, Physici D.O. ans 2018-03-27 2018-03-27 Karlos ANTONIO, RAFAT UTP [id number] Univers 10:30:00 10:30:00 t; WILL ity o horace ANTONIO D.O. [place] WILL, Physici D.O. ans 2018-03-22 2018-03-22 Karlos ANTONIO, RAFAT UTP [id number] Univers 10:30:00 10:30:00 t; WILL ity charles ANTONIO D.O. [place] WILL, Physici D.O. ans 2018-03-06 2018-03-06 RAFAT Seals UTP [id number] Univers 08:30:00 08:30:00 t; CYRIL MACK M.D. i ty of [facility] [place] Phys[facility] ans 2018-02-14 2018-02-14 Karlos ANTONIO, UTP UTP [id number] Univers 08:15:00 08:15:00 t; WILL ity charles ANTONIO D.O. [place] WILL, Physici D.O. ans 2018-01-11 2018-01-11 Karlos ANTONIO, UTP UTP [id number] Univers 10:30:00 10:30:00 t; WILL ity o horace ANTONIO D.O. [place] WILL, Physici D.O. ans Results Test Description Test Time Test Comments Results Result Comments Source HEMOGLOBIN A1C 2019-11-19 09:28:00 Test Item Value Reference Range Interpretation Comme nts HEMOGLOBIN A1C (BEAKER) (test code = 368) 8.1 % 4.3-6.1 H POCT-GLUCOSE [id number] 07:44:00 Test Item Value Reference Range Interpretation Comments POC-GLUCOSE METER 130 mg/dL 70-110 H : TESTED A T [facility] 6720 (BEAKER) (test code = TERRI ZAIDI [place], 1538) 50074: Bedspread Folder/Techni wendy ID = [id number] for KRISSY FINNEGAN COMPREHENSIVE METABOLIC [id number] 06:55:00 Test Item Value Reference Range Interpretation [...] S NOT APPLICABLE FOR DIALYSIS PATIEN TS. Bedspread Folder ID - PIAYA LCBC W/PLT COUNT & AUTO [id number] 05:55:00 Test Item Value Reference Range Interpretation [...] PERCENT (BEAKER) (test code = 2801) POCT-GLUCOSE [id number] 21:17:00 Test Item Value Reference Range Interpretation Comments POC-GLUCOSE METER 255 mg/dL 70-110 H : TESTED A T [facility] 6720 (BEAKER) (test code = TERRI Hirsch [facility], 1538) 48024: Bedspread Folder/Techni wendy ID = [id number] for ABHILASH MARTI [id number] 11:22:39INTRA OP IMAGINGReason for exam:->abnormal imaging Fluoroscopic unit utilized for a procedure performed in the OR. No interpretation was requested. Refer to the operative report for findings. Refer to PACS for patient radiation dose information.POCT-GLUCOSE METER 2019-11-18 07:45:00 Test Item Value Reference Range Interpretation Comments POC-GLUCOSE METER 155 mg/dL 70-110 H : TESTED A T [facility] 6720 (BEAKER) (test code = [facility], 1538) 94039: Bedspread Folder/Techni wendy ID = [id number] for ED CRISSY, KATIE TISSUE [id number] 09:36:00Surgical Pathology Report Case: [id number] Authorizing Provider: Vinnie Oglesby Collected: 08/26/2019 12:43 PM MD Beatrice Ordering Location: [facility] Endoscopy Received: 08/26/2019 01:56 PM Services Pathologist: Isac Cummins MD Specimen: Biopsy, Gastric, gastric polyp A. STOMACH, POLYP, BIOPSY: - ANTRAL MUCOSA WITH POLYPOID FOVEOLAR HYPERPLASIA - NEGATIVE FOR HELICOBACTER PYLORI ORGANISMS BY WARTHIN STARRY STAIN - NEGATIVE FOR INTESTINAL METAPLASIA, DYSPLASIA, MALIGNANCY SigningPathologist Direct Phone Line: [phone] signed by Isac Cummins MD on 08/27/2019 at 9:36 [id number]: upper endoscopy, biopsyPre and postop diagnosis: acute [...] evaluated Immunohistochemistry technical testing was performed at [facility], Pathology Laboratory where it was developed [...] to perform high complexity clinical laboratory testing.POCT-GLUCOSE [id number] 13:26:00 Test Item Value Reference Range Interpretation Comments POC-GLUCOSE METER 122 mg/dL 70-110 H : TESTED A T [facility] 6720 (Humacyte) (test code = [facility], 1538) 04159: Bedspread Folder/Techni wendy ID = [id number] for Ilda Bailey POCT-GLUCOSE [id number] 11:40:00 Test Item Value Reference Range Interpretation Comments POC-GLUCOSE METER 137 mg/dL 70-110 H : TESTED A T [facility] 6720 (Humacyte) (test code = [facility], 1538) 64115: Bedspread Folder/Techni wendy ID = [id number] for KATIE CANTU COLON SEGMENT RESEC.NOT [id number] 19:21:00 RUN DATE: 11/14/18 [facility] PAGE 1 RUN TIME: 810 Specimen Inquiry RUN USER: INTERFACE PATIENT: DAISY HAMMER [facility] #: [id number] AGE/SX: 58/F ROOM: [facility] RE11/11/18REG DR: Betito Collazo MD : 56 BED: A DIS: 11/13/18 STATUS: DIS Sharla TLOC: SPEC #: [id number] RECD: 11/11/18 STATUS: BRITTNY HEMPHILL #: [id number] CRISTINO: 11/11/18- [facility] DR: Betito Collazo MD ENTERED: 11/11/18 SP TYPE: COLONR NIDIA DR: ORDERED: LEVEL V SURGICA CODES: H44157 - COLON, NOS PROCEDURES: LEVEL V SURGICA (Incomplete) TISSUES: COLON, NOS - RECTOSIGMOID DIVERTICULITIS CLINICAL HISTORY 58 year old, diverticulitis (wpd) FINAL DIAGNOSIS Designated "rectosigmoid diverticulitis", segmental resection: - diverticular disease with peridiverticular fibrosis - intestinal rings - unremarkable CPT code(s): 49113 pkg/wpd 11/13/18 GROSS DESCRIPTION ANATOMIC SOURCE OFTISSUE [...] and contains unremarkable mucosa and surrounding tissue. Flag Signaler sections are submitted in A2. The largest [...] Specimen Inquiry RUN USER: INTERFACE SPEC #: [id number] PATIENT: DOMINIQUE HAMMERL #[id number] (Continued) GROSS DESCRIPTION (Continued) 1.0 cm and containing green-brown fecal material. No discrete perforationor discoloration in those areas are noted. Flag Signaler sections of the intestine with the diverticula are submitted in A3 - A8. Examination of attached adipose tissue reveals no discrete lymph nodes. Flag Signaler sections are submitted in A9 - A16. /wpd 11/11/18 @ 1600 MICROSCOPIC DESCRIPTION The specimen consists of a segment of rectosigmoid colon containing numerous diverticula which extend through the muscularis into the rectosigmoid adipose tissue. Foci of fibrosis are present adjacent to the diverticula. No granulomas, dysplasia or neoplasia are identified. The intestinal rings are unremarkable. [facility]/wpandreea 11/13/18 Signed Deena Storm 11/13/181920 ENDOF REPORT [id number] 07:10:00 Test Item Value Reference Range Interpretation Comments GLUBED (test code = GLUBED) 180 mg/dL 65-110 H COMPREHENSIVE METABOLIC [id number] 05:48:00 Test Item Value Reference Range Interpretation [...] 106 units/L 46-116 N code = ALKP) [id number] 05:48:00 Test Item Value Reference Range Interpretation Comments MAGNESIUM (test code = MAG) 1.8 mg/dL 1.8-2.4 N CBC W/AUTO [id number] 04:49:00 Test Item Value Reference Range Interpretation [...] REQUIRED (test NORMAL NORMAL code = PLTMR) [id number] 21:57:00 Test Item Value Reference Range Interpretation Comments GLUBED (test code = GLUBED) 278 mg/dL 65-110 H [id number] 17:26:00 Test Item Value Reference Range Interpretation Comments GLUBED (test code = 292 mg/dL 65-110 H Hypoglyc emic Protoco GLUBED) [id number] 12:11:00 Test Item Value Reference Range Interpretation Comments GLUBED (test code = GLUBED) 131 mg/dL 65-110 H [id number] 07:23:00 Test Item Value Reference Range Interpretation Comments GLUBED (test code = GLUBED) 110 mg/dL 65-110 N CHEMISTRY 7 [id number] 05:23:00 Test Item Value Reference Range Interpretation [...] code = CA) 7.8 mg/dL 8.4-10.2 L [id number] 05:23:00 Test Item Value Reference Range Interpretation Comments MAGNESIUM (test code = MAG) 1.8 mg/dL 1.8-2.4 N CBC W/AUTO [id number] 05:19:00 Test Item Value Reference Range Interpretation [...] REQUIRED (test NORMAL NORMAL code = PLTMR) [id number] 22:07:00 Test Item Value Reference Range Interpretation Comments GLUBED (test code = GLUBED) 171 mg/dL 65-110 H [id number] 17:41:00 Test Item Value Reference Range Interpretation Comments GLUBED (test code = GLUBED) 157 mg/dL 65-110 H [id number] 13:26:00 Test Item Value Reference Range Interpretation Comments GLUBED (test code = GLUBED) 154 mg/dL 65-110 H [id number] 06:54:00 Test Item Value Reference Range Interpretation Comments GLUBED (test code = GLUBED) 143 mg/dL 65-110 H CHEMISTRY 7 [id number] 13:07:00 Test Item Value Reference Range Interpretation [...] = CA) 8.5 mg/dL 8.4-10.2 N HGB [id number] 12:51:00 Test Item Value Reference Range Interpretation Comments HEMOGLOBIN (test code = HGB) 13.6 g/dL 10.7-13.9 N HEMATOCRIT (test code = HCT) 40.3 % 32.1-42.1 N
[2020-12-22] MEDS ORDERED: MORPHINE 4 MG/ML SYR ONE (15:14)
[2020-12-22] MEDS ORDERED: ONDANSETRON 4 MG (ODT) TAB ONE (15:14)
--- NOTE | 2020-12-22 16:03 | RAD REPORT ---
EXAM DESCRIPTION: US - Extremity Venous Uni Ltd - 12/22/2020 3:48 pm CLINICAL HISTORY: Pain;Swelling Leg swelling and edema. COMPARISON: <Comparisons> FINDINGS: Left lower extremity venous system was interrogated with Doppler technique. Normal flow, c ompressibility and augmentation was noted. There is no DVT present. IMPRESSION: No evidence of left lower extremity deep venous thrombosis.
--- NOTE | 2020-12-22 16:14 | ER ---
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 Coronavirus screen: Vaccine status: Patient reports receiving the 2nd dose of the covid vaccine. Date November 2020 [facility]. Ebola Screen: No symptoms or risks identified at this time. Initial Sepsis Screen: Does the patient meet any 2 criteria? No. Patient's initial sepsis screen is negative. Does the patient have a suspected source of infection? No. Patient's initial sepsis screen is negative. Risk Assessment: Do you want to hurt yourself or someone else? Patient reports no desire to harm self or others. Onset of symptoms is unknown. 14:27 Method Of Arrival: Ambulatory [facility] 14:27 Acuity: DARA 3 jl7 Triage Assessment: 14:29 General: Appears in no apparent distress. uncomfortable, Behavior is calm, cooperative, jl7 appropriate for age. Pain: Complains of pain in left leg Pain currently is 8 out of 10 on a pain scale. Historical: - Allergies: 14:29 HYDROCODONE; jl7 - PMHx: 14:29 fernando esophageal disease; cricopharyngeal spasm; Diabetes - IDDM; Diabetes - NIDDM; jl7 Hernia; High Cholesterol; Hyperlipidemia; vericose vein; Pancreatitis; - PSHx: 14:29 hernia repair; jl7 - Immunization history:: Adult Immunizations up to date, Client reports receiving the 2nd dose of the Covid vaccine. - Social history:: Smoking status: Patient denies any tobacco usage or history of. Screenin:57 Abuse screen: Denies threats or abuse. Nutritional screening: No deficits noted. jl7 Tuberculosis screening: No symptoms or risk factors identified. Fall Risk No fall in past 12 months (0 pts). No secondary diagnosis (0 pts). No IV (0 pts). Ambulatory Aid- None/Bed Rest/Nurse Assist (0 pts). Gait- Normal/Bed Rest/Wheelchair (0 pts) Mental Status- Oriented to own ability (0 pts). Total Bonilla Fall Scale indicates No Risk (0-24 pts). Assessment: 14:55 General: Appears in no apparent distress. uncomfortable, Behavior is calm, cooperative. jl7 Pain: Complains of pain in left leg Pain currently is 8 out of 10 on a pain scale. Noted to be grimacing. Neuro: Level of Consciousness is awake, alert, obeys commands, Oriented to person, place, time, situation. Cardiovascular: Patient's skin is warm and dry. Pulses are palpable in left dorsalis pedis artery. Respiratory: Airway is patent Respiratory effort is even, unlabored. GI: No signs and/or symptoms were reported involving the gastrointestinal system. : No signs and/or symptoms were reported regarding the genitourinary system. EENT: No signs and/or symptoms were reported regarding the EENT system. Derm: Skin is intact, is healthy with good turgor. Musculoskeletal: Circulation, motion, and sensation intact. Range of motion: intact in left ankle Swelling present in left lateral ankle. 16:13 Reassessment: Patient appears in no apparent distress at this time. Patient and/or vg1 family updated on plan of care and expected duration. Pain level reassessed. Patient is alert, oriented x 3, equal unlabored respirations, skin warm/dry/pink. Stated pain subsided to 7/10. Vital Signs: 14:27 BP 155 / 82; Pulse 84; Resp 17; Temp 97.9; Pulse Ox 99% ; Weight 68.95 kg; Height 5 ft. jl7 2 in. (157.48 cm); Pain 8/10; 14:57 BP 164 / 67; Pulse 78; Resp 16; Pulse Ox 100% ; jl7 16:13 BP 169 / 85; Pulse 62; Resp 16; Pulse Ox 100% ; vg1 14:27 Body Mass Index 27.80 (68.95 kg, 157.48 cm) jl7 ED Course: 14:12 Patient arrived in ED. mr 14:13 Berry Suero MD is Private Physician. mr 14:26 [facility]ur [facility] jr8 14:26 Antony Ely MD is Attending Physician. jr8 14:29 Triage completed. jl7 14:29 Arm band placed on right wrist. jl7 14:45 Aniya Mina, RN is Primary Nurse. jl7 14:57 Patient has correct armband on for positive identification. Bed in low position. Call jl7 light in reach. Side rails up X 1. 14:57 No provider procedures requiring assistance completed. Patient did not have IV access jl7 during this emergency room visit. 15:41 Primary Nurse role handed off by Aniya Mina, HAIDER vg1 15:41 Shakira Childers, RN is Primary Nurse. vg1 15:48 US Extremity Venous Unilateral Ltd In Process Unspecified. EDME 16:13 Berry Suero MD is Referral Physician. jr8 Administered Medications: 14:52 Drug: Ondansetron 4 mg Route: PO; jl7 16:12 Follow up: Response: No adverse reaction vg1 14:55 Drug: morphine 4 mg Route: IM; Site: right deltoid; jl7 16:12 Follow up: Response: No adverse reaction vg1 Outcome: 16:13 Discharge ordered by MD. jr8 16:41 Discharged to home via wheelchair. vg1 16:41 Condition: stable 16:41 Discharge instructions given to patient, Instructed on discharge instructions, follow up and referral plans. Demonstrated understanding of instructions, follow-up care. 16:42 Patient left the ED. vg1 Signatures: Dispatcher [employer] [facility] JovanDelisa OfeCharles PA PA jr8 Aniya Mina, HAIDER RN jl7 Shakira Childers, RN RN vg1
--- NOTE | 2020-12-22 16:14 | EDPHYS ---
Physician Documentation [facility] Name: Robyn Carrion Age: 60 yrs Sex: Female : 1960 Arrival Date: 12/22/2020 Time: 14:12 Bed 27 Private MD: Berry Suero F ED Physician Antony Ely HPI: 12/22 15:43 This 60 yrs old Female presents to ER via Ambulatory with complaints of Leg jr8 Swelling. 15:43 This is a 60-year-old female patient that presented to the emergency room for increased jr8 leg pain and swelling. Patient with a history of varicosities currently being evaluated by vascular surgeon for possible stripping. Patient stated that the left leg became acutely painful more swollen which she has not had swelling in the past.. Historical: - Allergies: 14:29 HYDROCODONE; jl7 - PMHx: 14:29 fernando esophageal disease; cricopharyngeal spasm; Diabetes - IDDM; Diabetes - NIDDM; jl7 Hernia; High Cholesterol; Hyperlipidemia; vericose vein; Pancreatitis; - PSHx: 14:29 hernia repair; jl7 - Immunization history:: Adult Immunizations up to date, Client reports receiving the 2nd dose of the Covid vaccine. - Social history:: Smoking status: Patient denies any tobacco usage or history of. ROS: 15:43 Eyes: Negative for injury, pain, redness, and discharge, ENT: Negative for injury, jr8 pain, and discharge, Neck: Negative for injury, pain, and swelling, Cardiovascular: Negative for chest pain, palpitations, and edema, Respiratory: Negative for shortness of breath, cough, wheezing, and pleuritic chest pain, Abdomen/GI: Negative for abdominal pain, nausea, vomiting, diarrhea, and constipation, Back: Negative for injury and pain, Skin: Negative for injury, rash, and discoloration, Neuro: Negative for headache, weakness, numbness, tingling, and seizure. 15:43 MS/extremity: Positive for pain, swelling, tenderness, of the left leg. Exam: 15:43 Constitutional: This is a well developed, well nourished patient who is awake, alert, jr8 and in no acute distress. Cardiovascular: Regular rate and rhythm with a normal S1 and S2. No gallops, murmurs, or rubs. Normal PMI, no JVD. No pulse deficits. Respiratory: Lungs have equal breath sounds bilaterally, clear to auscultation and percussion. No rales, rhonchi or wheezes noted. No increased work of breathing, no retractions or nasal flaring. Skin: Warm, dry with normal turgor. Normal color with no rashes, no lesions, and no evidence of cellulitis. Neuro: Awake and alert, GCS 15, oriented to person, place, time, and situation. Cranial nerves II-XII grossly intact. Motor strength 5/5 in all extremities. Sensory grossly intact. 15:43 Musculoskeletal/extremity: Patient has bilateral varicosities present. Moderate tenderness to palpation of the left leg when compared to the right. Mild swelling noted to the left when compared to the right. No substantial circumferential difference between the left and right calves. Pulses 2+ present dorsal podalic's and posterior tibial on both legs. Normal sensation bilaterally. Patient has no decrease in range of motion but does have pain with range of motion to left leg.. Vital Signs: 14:27 BP 155 / 82; Pulse 84; Resp 17; Temp 97.9; Pulse Ox 99% ; Weight 68.95 kg; Height 5 ft. jl7 2 in. (157.48 cm); Pain 8/10; 14:57 BP 164 / 67; Pulse 78; Resp 16; Pulse Ox 100% ; jl7 16:13 BP 169 / 85; Pulse 62; Resp 16; Pulse Ox 100% ; vg1 14:27 Body Mass Index 27.80 (68.95 kg, 157.48 cm) jl7 MDM: 14:26 Patient medically screened. jr8 16:12 Data reviewed: vital signs, nurses notes, radiologic studies, ultrasound. Data jr8 interpreted: Pulse oximetry: on room air is 100 %. Interpretation: normal. Counseling: I had a detailed discussion with the patient and/or guardian regarding: the historical points, exam findings, and any diagnostic results supporting the discharge/admit diagnosis, radiology results, the need for outpatient follow up, a family practitioner, to return to the emergency department if symptoms worsen or persist or if there are any questions or concerns that arise at home. 16:12 ED course: Discussed with patient that there is no deep venous thrombosis. Needs to jr8 follow-up with her vascular surgeon for continuation of work-up. Otherwise pain management at this point. Patient good with this and will follow up.. 12/22 14:42 Order name: US Extremity Venous Unilateral Ltd; Complete Time: 16:12 jr8 Administered Medications: 14:52 Drug: Ondansetron 4 mg Route: PO; jl7 16:12 Follow up: Response: No adverse reaction vg1 14:55 Drug: morphine 4 mg Route: IM; Site: right deltoid; jl7 16:12 Follow up: Response: No adverse reaction vg1 Disposition: 16:58 Co-signature as Attending Physician, Antony Ely MD I agree with the assessment and rn plan of care. Attestation: The patient's history, exam findings, diagnostics, and a summary of any interventions or procedures was reviewed in detail with Charles LAFLEUR. 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
[2020-12-22 17:13] VITALS: TEMP 97.9
[2020-12-22 17:15] VITALS: O2SAT 100
[2020-12-22 17:16] VITALS: BP 169/85
== END 2020-12-22 16:42 | disposition home or self-care (01) ==
LOC: ER 14:11
DX: I83.812 Varicose veins of left lower extremity with pain (principal); I87.2 Venous insufficiency (chronic) (peripheral); Z88.5 Allergy status to narcotic agent
CPT/HCPCS: 93971; 96372; 99283

== ENCOUNTER 2020-12-31 12:41 | Emergency (ER) | payer OTHER ==
[2020-12-31 13:47] LABS: Absolute Lymphocytes (CBC) 2.3 K/uL (0.7-4.9); Basophils % 1.1 % (0-1.3); Hematocrit 42.9 % (36.0-45.0); Lymphocytes % 28.6 % (15.3-44.8); MPV 7.7 fL (7.6-11.3); RBC Red Blood Cell Count 4.78 M/uL (3.86-4.86)
[2020-12-31 13:50] LABS: Protime INR 0.91
[2020-12-31 14:09] LABS: ALT/SGPT 46 U/L (12-78); AST/SGOT 28 U/L (15-37); Albumin 3.8 g/dL (3.4-5.0); Alkaline Phosphatase 171 U/L (45-117); BUN Blood Urea Nitrogen 20 mg/dL (7-18); Bicarbonate 26 mmol/L (21-32); Bilirubin Direct 0.1 mg/dL (0-0.2); Bilirubin Total 0.4 mg/dL (0.2-1.0); Glucose Level 195 mg/dL (74-106); Magnesium 2.3 mg/dL (1.8-2.4); NT PRO-BNP 48 pg/mL (<125); Potassium 3.7 mmol/L (3.5-5.1); Protein, Total 8.3 g/dL (6.4-8.2); Sodium Level 140 mmol/L (136-145); Troponin (Emerg Dept Use Only) < 0.02 ng/mL (0.0-0.045)
--- NOTE | 2020-12-31 14:17 | RAD REPORT ---
EXAM DESCRIPTION: RAD - Chest Single View - 12/31/2020 2:13 pm CLINICAL HISTORY: CHEST PAIN COMPARISON: Chest Single View dated 09/16/2020; Chest Pa And Lat (2 Views) dated 07/26/2020; Chest Sin gle View dated 07/03/2020; Chest Single View dated 02/11/2020 FINDINGS: Lines: None. Lungs: No evidence of edema or pneumonia. Pleural: No significant pleural effusions or pneumothorax. Cardiac: The heart size is within normal limits. Bones: No acute fractures. Other: IMPRESSION: No acute cardiopulmonary disease.
[2020-12-31] MEDS ORDERED: ONDANSETRON 4 MG/2 ML VIAL ONE (14:31)
[2020-12-31] MEDS ORDERED: FAMOTIDINE 20 MG/2 ML VIAL IV ONE (14:31)
[2020-12-31] MEDS ORDERED: HYDROMORPHONE HCL 1 MG/ML INJ ONE (14:32)
--- NOTE | 2020-12-31 17:23 | EDPHYS ---
Physician Documentation [facility] Name: Robyn Carrion Age: 60 yrs Sex: Female : 1960 Arrival Date: 12/31/2020 Time: 12:45 Bed 28 Private MD: ED Physician Eric Umana HPI: 12/31 13:54 This 60 yrs old Female presents to ER via Ambulatory with complaints of Left kdr leg pain and chest pressure and rash on anterior upper chest. 13:55 Patient presents to the ED primarily with complaint of left leg pain. This is been kdr ongoing since June. She is seeing a physician for this pain and has been diagnosed with varicose veins on that leg. She is currently awaiting insurance approval to get seen by a vascular surgeon to resolve this issue. In the meantime she has been given 600 mg of gabapentin twice daily. She states that this will transiently manage the pain however she has significant breakthrough pain in between those doses. She states that the pain in her left leg has not changed or in any way different than it has been. Her primary problem is just that the gabapentin is not managing her pain 30/10. She states that she is allergic to/has stomach problems with hydrocodone. She denies allergic or anaphylactic reactions to these medications. She otherwise denies nausea vomiting fever chills.. Onset: The symptoms/episode began/occurred gradually, Since June. Severity of symptoms: At their worst the symptoms were mild incapacitating in the emergency department the symptoms are unchanged. The patient has experienced similar episodes in the past, chronically. The patient has been recently seen by a physician: the patient's primary care provider. The patient stated that she also awoke this morning with some rash on her anterior upper chest. She had some mild chest pressure discomfort associated with this. It was nonradiating to her arm or neck. She had no other associated complaints such as neck pain jaw pain shortness of breath or diaphoresis. Historical: - Allergies: 13:03 HYDROCODONE; ap3 - Home Meds: 13:03 lisinopril Oral [Active]; Lantus Sub-Q [Active]; atorvastatin Oral [Active]; Amitiza ap3 Oral [Active]; Creon Oral [Active]; Dicyclomine Oral [Active]; Protonix Oral [Active]; - PMHx: 13:03 vericose vein; Pancreatitis; High Cholesterol; Hernia; Diabetes - NIDDM; ap3 cricopharyngeal spasm; fernando esophageal disease; - PSHx: 13:03 hernia repair; colon removal; ercp; ap3 - Immunization history:: Client reports receiving the 2nd dose of the Covid vaccine, Date received: November 2020. - Social history:: Smoking status: Patient denies any tobacco usage or history of. Patient/guardian denies using alcohol, street drugs. ROS: 13:55 Constitutional: Negative for fever, chills, and weight loss, Eyes: Negative for injury, kdr pain, redness, and discharge, Neck: Negative for injury, pain, and swelling, Respiratory: Negative for shortness of breath, cough, wheezing, and pleuritic chest pain, Abdomen/GI: Negative for abdominal pain, nausea, vomiting, diarrhea, and constipation, Back: Negative for injury and pain, : Negative for injury, bleeding, discharge, and swelling, Skin: Negative for injury, rash, and discoloration, Neuro: Negative for headache, weakness, numbness, tingling, and seizure activity. Psych: Negative for depression, anxiety, suicide ideation, homicidal ideation, and hallucinations, Allergy/Immunology: Negative for hives, rash, and allergies, Endocrine: Negative for neck swelling, polydipsia, polyuria, polyphagia, and marked weight changes, Hematologic/Lymphatic: Negative for swollen nodes, abnormal bleeding, and unusual bruising. 13:55 Cardiovascular: Positive for chest pain, Negative for edema, orthopnea, palpitations, paroxysmal nocturnal dyspnea. 13:55 MS/extremity: Positive for pain, swelling, tenderness, of the left leg, Patient has multiple varicose veins on her calf lateral knee and mid and medial thigh. Exam: 13:55 Constitutional: This is a well developed, well nourished patient who is awake, alert, kdr and in no acute distress. Head/Face: Normocephalic, atraumatic. Eyes: Pupils equal round and reactive to light, extra-ocular motions intact. Lids and lashes normal. Conjunctiva and sclera are non-icteric and not injected. Cornea within normal limits. Periorbital areas with no swelling, redness, or edema. Neck: Trachea midline, no thyromegaly or masses palpated, and no cervical lymphadenopathy. Supple, full range of motion without nuchal rigidity, or vertebral point tenderness. No Meningismus. Chest/axilla: Normal chest wall appearance and motion. Nontender with no deformity. No lesions are appreciated. Cardiovascular: Regular rate and rhythm with a normal S1 and S2. No gallops, murmurs, or rubs. Normal PMI, no JVD. No pulse deficits. Respiratory: Lungs have equal breath sounds bilaterally, clear to auscultation and percussion. No rales, rhonchi or wheezes noted. No increased work of breathing, no retractions or nasal flaring. Abdomen/GI: Soft, non-tender, with normal bowel sounds. No distension or tympany. No guarding or rebound. No evidence of tenderness throughout. Back: No spinal tenderness. No costovertebral tenderness. Full range of motion. Skin: Warm, dry with normal turgor. Normal color with no rashes, no lesions, and no evidence of cellulitis. MS/ Extremity: Pulses equal, no cyanosis. Neurovascular intact. Full, normal range of motion. Neuro: Awake and alert, GCS 15, oriented to person, place, time, and situation. Cranial nerves II-XII grossly intact. Motor strength 5/5 in all extremities. Sensory grossly intact. Cerebellar exam normal. Normal gait. Psych: Awake, alert, with orientation to person, place and time. Behavior, mood, and affect are within normal limits. 13:59 Musculoskeletal/extremity: The patient's left lower extremity is normothermic. It is kdr neither cold nor mottled nor is it hot. Vital Signs: 13:01 BP 150 / 90; Pulse 100; Resp 19; Temp 99.0; Pulse Ox 100% ; Weight 66.68 kg; Height 5 ap3 ft. 2 in. (157.48 cm); Pain 7/10; 13:19 BP 147 / 83; Pulse 97; Resp 20; Temp 98.9; Pulse Ox 97% on R/A; kh1 14:25 BP 134 / 94; Pulse 77; Resp 20; Pulse Ox 100% on R/A; kh1 13:01 Body Mass Index 26.89 (66.68 kg, 157.48 cm) ap3 MDM: 17:22 Patient medically screened. kdr 20:18 Data reviewed: vital signs, nurses notes, lab test result(s), EKG, radiologic studies. kdr Counseling: I had a detailed discussion with the patient and/or guardian regarding: the historical points, exam findings, and any diagnostic results supporting the discharge/admit diagnosis, lab results, radiology results, the need for outpatient follow up. 12/31 13:08 Order name: Basic Metabolic Panel; Complete Time: 16:59 [facility] 12/31 13:08 Order name: CBC with Diff; Complete Time: 16:59 [facility] 12/31 13:08 Order name: LFT's; Complete Time: 16:59 [facility] 12/31 13:08 Order name: Magnesium; Complete Time: 16:59 [facility] 12/31 13:08 Order name: NT PRO-BNP; Complete Time: 16:59 [facility] 12/31 13:08 Order name: PT-INR; Complete Time: 16:59 [facility] 12/31 13:08 Order name: Troponin (emerg Dept Use Only); Complete Time: 16:59 [facility] 12/31 13:08 Order name: XRAY Chest (1 view); Complete Time: 16:59 [facility] 12/31 13:08 Order name: EKG; Complete Time: 13: [facility] 12/31 13:08 Order name: Cardiac monitoring; Complete Time: 13:22 [facility] 12/31 13:08 Order name: EKG - Nurse/Tech; Complete Time: 13:22 [facility] 12/31 13:08 Order name: IV Saline Lock; Complete Time: 13:22 [facility] 12/31 13:08 Order name: Labs collected and sent; Complete Time: 13:22 [facility] 12/31 13:08 Order name: O2 Per Protocol; Complete Time: 13:21 [facility] 12/31 13:08 Order name: O2 Sat Monitoring; Complete Time: 13:21 kdr Administered Medications: 14:19 Drug: Pepcid (famotidine) 20 mg Route: IVP; Site: left antecubital; kh1 14:19 Drug: Zofran (Ondansetron) 4 mg Route: IVP; Site: left antecubital; kh1 14:20 Drug: Dilaudid (HYDROmorphone) 1 mg Route: IVP; Site: left antecubital; kh1 Disposition Summary: 12/31/20 17:22 Discharge Ordered Location: Home kdr Problem: an acute exacerbation kdr Symptoms: have improved kdr Condition: Stable kdr Diagnosis - 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 kdr Followup: kdr - With: Private Physician - When: 2 - 3 days - Reason: If symptoms return, Further diagnostic work-up, Recheck today's complaints, Continuance of care, Re-evaluation by your physician Discharge Instructions: - Discharge Summary Sheet kdr - Varicose Veins kdr Forms: - Medication Reconciliation Form kdr - Thank You Letter kdr Prescriptions: - gabapentin 600 mg Oral tablet - take 1 tablet by ORAL route 3 times per day As needed; 30 tablet; Refills: 0, kdr Product Selection Permitted Signatures: Dispatcher [employer] EDEric Diamond MD MD kdr Harriet Saenz RN RN ap3 Melanie Coffey [facility] Corrections: (The following items were deleted from the chart) 13:06 13:03 PMHx: Hyperlipidemia; ap3 ap3 13:06 13:03 PMHx: Diabetes - IDDM; ap3 ap3
--- NOTE | 2020-12-31 17:23 | ER ---
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 ap3 patient states the pressure and pain in the left leg has gotten worse. She also states she woke up this morning with a rash on her upper chest. Patient states she also feels like she has a light pressure on her chest. Coronavirus screen: Client presents with at least one sign or symptom that may indicate coronavirus-19. Standard/surgical mask placed on the client. Ebola Screen: No symptoms or risks identified at this time. Initial Sepsis Screen: Does the patient meet any 2 criteria? No. Patient's initial sepsis screen is negative. Does the patient have a suspected source of infection? No. Patient's initial sepsis screen is negative. Risk Assessment: Do you want to hurt yourself or someone else? Patient reports no desire to harm self or others. Onset of symptoms is unknown. 13:01 Method Of Arrival: Ambulatory ap3 13:01 Acuity: DARA 3 ap3 Triage Assessment: 13:07 General: Appears uncomfortable, Behavior is cooperative, crying. Pain: Complains of ap3 pain in chest and left leg. Neuro: Level of Consciousness is awake, alert, obeys commands, Oriented to person, place, time, situation, Appropriate for age Gait is unsteady, Speech is normal. Cardiovascular: Capillary refill < 3 seconds Patient's skin is warm and dry. Respiratory: Airway is patent Respiratory effort is even, unlabored, Respiratory pattern is regular, symmetrical. GI: No signs and/or symptoms were reported involving the gastrointestinal system. : No signs and/or symptoms were reported regarding the genitourinary system. Derm: Rash noted that is on right clavicle, left clavicle and mid-sternal area. Historical: - Allergies: 13:03 HYDROCODONE; ap3 - Home Meds: 13:03 lisinopril Oral [Active]; Lantus Sub-Q [Active]; atorvastatin Oral [Active]; Amitiza ap3 Oral [Active]; Creon Oral [Active]; Dicyclomine Oral [Active]; Protonix Oral [Active]; - PMHx: 13:03 vericose vein; Pancreatitis; High Cholesterol; Hernia; Diabetes - NIDDM; ap3 cricopharyngeal spasm; fernando esophageal disease; - PSHx: 13:03 hernia repair; colon removal; ercp; ap3 - Immunization history:: Client reports receiving the 2nd dose of the Covid vaccine, Date received: November 2020. - Social history:: Smoking status: Patient denies any tobacco usage or history of. Patient/guardian denies using alcohol, street drugs. Screenin:08 Abuse screen: Denies threats or abuse. Nutritional screening: No deficits noted. ap3 Tuberculosis screening: No symptoms or risk factors identified. Assessment: 14:20 Reassessment: Patient appears in no apparent distress at this time. No changes from [facility] previously documented assessment. Patient and/or family updated on plan of care and expected duration. Pain level reassessed. Patient is alert, oriented x 3, equal unlabored respirations, skin warm/dry/pink. Vital Signs: 13:01 BP 150 / 90; Pulse 100; Resp 19; Temp 99.0; Pulse Ox 100% ; Weight 66.68 kg; Height 5 ap3 ft. 2 in. (157.48 cm); Pain 7/10; 13:19 BP 147 / 83; Pulse 97; Resp 20; Temp 98.9; Pulse Ox 97% on R/A; kh1 14:25 BP 134 / 94; Pulse 77; Resp 20; Pulse Ox 100% on R/A; kh1 13:01 Body Mass Index 26.89 (66.68 kg, 157.48 cm) ap3 ED Course: 12:45 Patient arrived in ED. jm9 13:03 Triage completed. ap3 13:08 Eric Umana MD is Attending Physician. kdr 13:15 Melanie Coffey is Primary Nurse. kh1 13:22 Basic Metabolic Panel Sent. kh1 13:22 CBC with Diff Sent. kh1 13:22 LFT's Sent. kh1 13:22 Magnesium Sent. kh1 13:56 Basic Metabolic Panel Sent. kh1 13:56 LFT's Sent. kh1 13:56 Magnesium Sent. kh1 13:56 NT PRO-BNP Sent. kh1 13:56 PT-INR Sent. kh1 13:56 Troponin (emerg Dept Use Only) Sent. kh1 14:13 XRAY Chest (1 view) In Process Unspecified. EDMS Administered Medications: 14:19 Drug: Pepcid (famotidine) 20 mg Route: IVP; Site: left antecubital; kh1 14:19 Drug: Zofran (Ondansetron) 4 mg Route: IVP; Site: left antecubital; 1 14:20 Drug: Dilaudid (HYDROmorphone) 1 mg Route: IVP; Site: left antecubital; [facility] Outcome: 17:22 Discharge ordered by . kdr 18:32 Patient left the ED. kdr Signatures: Dispatcher [employer] EDMS Eric Umana MD MD kdr Prokisch, Amanda, RN RN [id number] Melanie Coffey 1 Aliyah Daniel 9 Corrections: (The following items were deleted from the chart) 13:06 13:03 PMHx: Hyperlipidemia; ap3 ap3 13:06 13:03 PMHx: Diabetes - IDDM; ap3 ap3
[2020-12-31] MEDS ORDERED: ONDANSETRON 4 MG (ODT) TAB ONE (18:07)
[2020-12-31 18:39] VITALS: TEMP 98.9
[2020-12-31 18:40] VITALS: BP 134/94; O2SAT 100
== END 2020-12-31 18:32 | disposition home or self-care (01) ==
LOC: ER 12:41
DX: I83.812 Varicose veins of left lower extremity with pain (principal); E11.9 Type 2 diabetes mellitus without complications; Z88.5 Allergy status to narcotic agent
CPT/HCPCS: 93005; 85025; 80048; 36415; 83735; 85610; 80076; 84484; 83880; 71045; 96375; 96374; 99283; J1170; J2405

== ENCOUNTER 2021-02-18 19:21 | Emergency (ER) | payer OTHER ==
[2021-02-18] MEDS ORDERED: CODEINE 30MG/APAP 300MG TAB ONE (20:41)
[2021-02-18] MEDS ORDERED: IBUPROFEN 400 MG TAB ONE (20:41)
--- NOTE | 2021-02-18 21:34 | RAD REPORT ---
EXAM DESCRIPTION: CT - Knee Left Wo Con - 02/18/2021 9:24 pm CLINICAL HISTORY: fall COMPARISON: No comparisonsKnee Left 3 View dated 02/18/2021 FINDINGS: No left knee fracture identified. No malalignment. No significant focal degenerative mobley es. No knee effusion. IMPRESSION: No acute osseus abnormality involving the left knee.
--- NOTE | 2021-02-18 21:35 | RAD REPORT ---
EXAM DESCRIPTION: RAD - Knee Left 3 View - 02/18/2021 8:22 pm CLINICAL HISTORY: PAIN COMPARISON: No comparisons FINDINGS: No acute fracture. No malalignment. No significant focal degenerative changes. IMPRESSION: No acute osseous abnormality involving the left knee.
--- NOTE | 2021-02-18 21:54 | ER ---
Nurse's Notes [facility] Name: Robyn Carrion Age: 60 yrs Sex: Female : 1960 Arrival Date: 02/18/2021 Time: 19:37 Bed 10 Private MD: Diagnosis: Contusion of left knee Presentation: 02/18 19:59 Acuity: DARA 4 lp1 20:03 Chief complaint: Patient states: Reports pain to left knee after making twisting motion lp1 about 1430 today; Reports pain with weight bearing, denies any other injuries or traumatic fall. Care prior to arrival: None. Mechanism of Injury: pivot motion. 20:03 Method Of Arrival: Wheelchair lp1 20:04 Coronavirus screen: At this time, the client does not indicate any symptoms associated lp1 with coronavirus-19. Ebola Screen: No symptoms or risks identified at this time. Initial Sepsis Screen: Does the patient meet any 2 criteria? No. Patient's initial sepsis screen is negative. Does the patient have a suspected source of infection? No. Patient's initial sepsis screen is negative. Risk Assessment: Do you want to hurt yourself or someone else? Patient reports no desire to harm self or others. Onset of symptoms was February 18, 2021 at 14:30. Historical: - Allergies: 20:05 HYDROCODONE; lp1 20:45 Codeine; cc4 - Home Meds: 20:05 atorvastatin Oral [Active]; Creon Oral [Active]; Dicyclomine Oral [Active]; Lantus lp1 Sub-Q [Active]; Protonix Oral [Active]; lisinopril Oral [Active]; - PMHx: 20:05 fernando esophageal disease; cricopharyngeal spasm; Diabetes - NIDDM; Hernia; High lp1 Cholesterol; Pancreatitis; vericose vein; - PSHx: 20:05 colon removal; ercp; hernia repair; hysterectomy; Cholecystectomy; lp1 - Immunization history:: Adult Immunizations up to date. - Social history:: Smoking status: Patient denies any tobacco usage or history of. Screenin:10 Abuse screen: Denies threats or abuse. Nutritional screening: No deficits noted. cc4 Tuberculosis screening: No symptoms or risk factors identified. Fall Risk Gait- Impaired (20 pts.). Assessment: 20:10 General: Appears uncomfortable, Behavior is calm, cooperative. Pain: Complains of pain cc4 in left medial knee Pain radiates to left distal left knee. Pain currently is 8 out of 10 on a pain scale. at worst was 10 out of 10 on a pain scale. level that patient reports is acceptable is 0 out of 10 on a pain scale. Quality of pain is described as throbbing, Pain began suddenly, 1400 today. Is continuous, Alleviated by nothing. Aggravated by repositioning, weight bearing, reports "twisting" left knee \\T\\ approximately 1400 today with increasing pain; slight edema noted medial left knee; denies falling on left knee; rad techs here doing portable xray left knee. Neuro: No deficits noted. Level of Consciousness is awake, alert, obeys commands, Oriented to person, place, time, situation. 20:10 Cardiovascular: No deficits noted. Respiratory: No deficits noted. Airway is patent. cc4 GI: No signs and/or symptoms were reported involving the gastrointestinal system. : No signs and/or symptoms were reported regarding the genitourinary system. EENT: No signs and/or symptoms were reported regarding the EENT system. Derm: No deficits noted. Skin is intact. Musculoskeletal: Capillary refill < 3 seconds, Swelling present in slight swelling noted medial left knee. Reports pain in left knee since twisting noted while standing \\T\\ 1400 today; denies fall or injury.. Pain is 8 out of 10 on a pain scale. 20:20 Reassessment: No changes from previously documented assessment. CIARRA Olivas in cc4 assessing patient;. 20:40 Reassessment: No changes from previously documented assessment. Ibuprofen 800 mg given cc4 for pain left knee; refusing Tylenol # 3; states, "Codeine tears my stomach up"; CIARRA Olivas notified. 21:00 Reassessment: to CT via stretcher. cc4 21:10 Reassessment: Returned from CT via stretcher. cc4 22:00 Reassessment: Immobilizer \\T\\ ice pack applied left knee; reports pain left knee cc4 decreasing to 5/10 on pain scale. 22:15 Reassessment: Tramadol 50 mg received from 2nd floor med-surg \\T\\ given po for left knee cc4 pain, malachi. well; fitted with crutches with instructions given on use, v/u. Vital Signs: 20:04 BP 160 / 88; Pulse 78; Resp 18; Temp 97; Pulse Ox 100% on R/A; Weight 62.14 kg (R); lp1 Height 5 ft. 4 in. (162.56 cm); Pain 9/10; 20:10 BP 153 / 86; Pulse 70; Resp 20; Pulse Ox 99% ; cc4 22:20 BP 166 / 82; Pulse 58; Resp 18; Temp 97.7; Pulse Ox 100% on R/A; cc4 20:04 Body Mass Index 23.52 (62.14 kg, 162.56 cm) lp1 ED Course: 19:37 Patient arrived in ED. ja2 19:59 Triage completed. lp1 20:04 Tian Adams PA is PHCP. cp 20:04 Conrado Kirkland MD is Attending Physician. cp 20:05 Arm band placed on. lp1 20:07 Jazmine Coe, RN is Primary Nurse. cc4 20:07 Knee Left 3 View XRAY Sent. cc4 20:10 Patient has correct armband on for positive identification. Bed in low position. Call cc4 light in reach. Side rails up X 1. 20:22 Knee Left 3 View XRAY In Process Unspecified. EDMS 21:19 Knee Left Wo Con Sent. cc4 21:25 Knee Left Wo Con In Process Unspecified. EDMS 21:53 Sherman Sorto MD is Referral Physician. cp 22:20 No provider procedures requiring assistance completed. cc4 22:20 Patient did not have IV access during this emergency room visit. cc4 Administered Medications: 20:40 Drug: Ibuprofen 800 mg Route: PO; cc4 22:00 Follow up: Response: No adverse reaction; Pain is decreased cc4 20:45 Not Given (Patient Refused): Tylenol #3 (300 mg-30 mg) 2 tabs PO once; RASS on ADMIN: cc4 Combtv4, Very Agttd3, Agttd2, Rstlss1, AlertClm0, Drwsy-1, Lt Sdtn-2, Mod Sdtn-3, Dp Sdtn-4, UnArsble-5 22:15 Drug: traMADol 50 mg Route: PO; cc4 22:20 Follow up: Response: No adverse reaction cc4 Outcome: 21:54 Discharge ordered by . cp 22:20 Discharged to home via wheelchair. cc4 22:20 Condition: improved 22:20 Discharge instructions given to patient, Instructed on discharge instructions, follow up and referral plans. Demonstrated understanding of instructions, follow-up care. 22:36 Patient left the ED. cc4 Signatures: Dispatcher [employer] EDMS Paulette Agarwal RN RN lp1 Tian Adams PA PA cp Alexander, Jessica 2 Jazmine Coe RN RN cc4 Corrections: (The following items were deleted from the chart) 20:54 20:[address] LEFT KNEE WO CONTRAST. cc4 EDMS 22:35 22:15 Reassessment: Tramadol 50 mg received from 2nd floor med-surg \\T\\ given po for left cc4 knee pain, malachi. well. cc4
--- NOTE | 2021-02-18 21:54 | EDPHYS ---
Physician Documentation [facility] Name: Robyn Carrion Age: 60 yrs Sex: Female : 1960 Arrival Date: 02/18/2021 Time: 19:37 Bed 10 Private MD: ED Physician Conrado Kirkland HPI: 02/18 20:25 This 60 yrs old Female presents to ER via Wheelchair with complaints of Fall cp Injury, Knee Injury, Knee Pain. 20:25 The patient presents with an injury, pain, that is acute. The complaints affect the cp left knee. Context: resulted from the patient falling, into couch and then unto floor, the patient can fully bear weight, the patient is able to ambulate, with moderate difficulty. 20:25 Onset: The symptoms/episode began/occurred earlier today. Modifying factors: the cp symptoms are aggravated by weight bearing, bending knee. Associated signs and symptoms: Pertinent negatives calf tenderness, numbness. Historical: - Allergies: 20:05 HYDROCODONE; lp1 20:45 Codeine; cc4 - Home Meds: 20:05 atorvastatin Oral [Active]; Creon Oral [Active]; Dicyclomine Oral [Active]; Lantus lp1 Sub-Q [Active]; Protonix Oral [Active]; lisinopril Oral [Active]; - PMHx: 20:05 fernando esophageal disease; cricopharyngeal spasm; Diabetes - NIDDM; Hernia; High lp1 Cholesterol; Pancreatitis; vericose vein; - PSHx: 20:05 colon removal; ercp; hernia repair; hysterectomy; Cholecystectomy; lp1 - Immunization history:: Adult Immunizations up to date. - Social history:: Smoking status: Patient denies any tobacco usage or history of. ROS: 20:30 MS/extremity: Positive for decreased range of motion, pain, swelling, tenderness, of cp the left knee, Negative for deformity, paresthesias. 20:30 Eyes: Negative for injury, pain, redness, and discharge. cp 20:30 Constitutional: Negative for body aches, chills, fever, poor PO intake. 20:30 Neck: Negative for pain with movement, pain at rest, stiffness. 20:30 Cardiovascular: Negative for chest pain, palpitations. 20:30 Respiratory: Negative for cough, shortness of breath, wheezing. 20:30 Abdomen/GI: Negative for abdominal pain, nausea, vomiting, and diarrhea. 20:30 Back: Negative for pain at rest, pain with movement. 20:30 Neuro: Negative for altered mental status, headache, loss of consciousness, syncope, weakness. 20:30 All other systems are negative. Exam: 20:35 Constitutional: The patient appears in no acute distress, alert, awake, cp non-diaphoretic, non-toxic, well developed, well nourished, in obvious pain, uncomfortable. 20:35 Head/Face: Normocephalic, atraumatic. cp 20:35 Neck: ROM/movement: is normal, is supple, without pain, no range of motions limitations. 20:35 Chest/axilla: Inspection: normal. 20:35 Cardiovascular: Rate: normal. 20:35 Respiratory: the patient does not display signs of respiratory distress, Respirations: normal, no use of accessory muscles. 20:35 Abdomen/GI: Exam negative for discomfort, distension, guarding, Inspection: abdomen appears normal. 20:35 Back: pain, is absent, ROM is normal. 20:35 Musculoskeletal/extremity: Extremities: grossly normal except: noted in the left knee: decreased ROM, pain, swelling, tenderness, There is no evidence of deformity, erythema, ROM: limited passive range of motion due to pain, in the left knee, Perfusion: the extremity is normally perfused throughout, the left leg Sensation intact. Vital Signs: 20:04 BP 160 / 88; Pulse 78; Resp 18; Temp 97; Pulse Ox 100% on R/A; Weight 62.14 kg (R); lp1 Height 5 ft. 4 in. (162.56 cm); Pain 9/10; 20:10 BP 153 / 86; Pulse 70; Resp 20; Pulse Ox 99% ; cc4 22:20 BP 166 / 82; Pulse 58; Resp 18; Temp 97.7; Pulse Ox 100% on R/A; cc4 20:04 Body Mass Index 23.52 (62.14 kg, 162.56 cm) lp1 Procedures: 22:10 Splinting: Splint applied to left knee using knee immobilizer, applied by nurse. cp Examined by me, post splint application: neurovascular intact, Patient tolerated well. MDM: 20:18 Patient medically screened. cp 21:54 Data reviewed: vital signs, nurses notes, radiologic studies, plain films. 21:54 Test interpretation: by ED physician or midlevel provider: plain radiologic studies. cp Counseling: I had a detailed discussion with the patient and/or guardian regarding: the historical points, exam findings, and any diagnostic results supporting the discharge/admit diagnosis, radiology results, the need for outpatient follow up, a orthopedic surgeon, to return to the emergency department if symptoms worsen or persist or if there are any questions or concerns that arise at home. Response to treatment: the patient's symptoms have markedly improved after treatment, and as a result, I will discharge patient. 02/18 19:58 Order name: Knee Left 3 View XRAY; Complete Time: 21:49 lp1 02/18 21:49 Interpretation: Report reviewed. 02/18 20:54 Order name: Knee Left Wo Con; Complete Time: 21:49 EDMS 02/18 21:49 Interpretation: Report reviewed. cp 02/18 20:49 Order name: Knee Immobilizer; Complete Time: 21:59 cp Administered Medications: 20:40 Drug: Ibuprofen 800 mg Route: PO; cc4 22:00 Follow up: Response: No adverse reaction; Pain is decreased cc4 20:45 Not Given (Patient Refused): Tylenol #3 (300 mg-30 mg) 2 tabs PO once; RASS on ADMIN: cc4 Combtv4, Very Agttd3, Agttd2, Rstlss1, AlertClm0, Drwsy-1, Lt Sdtn-2, Mod Sdtn-3, Dp Sdtn-4, UnArsble-5 22:15 Drug: traMADol 50 mg Route: PO; cc4 22:20 Follow up: Response: No adverse reaction cc4 Disposition: 23:34 Co-signature as Attending Physician, Conrado Kirkland MD. pkl Disposition Summary: 02/18/21 21:54 Discharge Ordered Location: Home cp Problem: new cp Symptoms: have improved cp Condition: Stable cp Diagnosis - Contusion of left knee cp Followup: cp - With: Sherman Sorto MD - When: 2 - 3 days - Reason: Recheck today's complaints Discharge Instructions: - Discharge Summary Sheet cp - Contusion cp - Acute Knee Pain, Adult cp Forms: - Medication Reconciliation Form cp - Thank You Letter cp - Antibiotic Education cp - Prescription Opioid Use cp Signatures: [facility] Conrado Kirkland MD MD pkPaulette Douglass RN RN lp1 Tian Adams PA PA cp Cooper, Christie RN RN cc4 Corrections: (The following items were deleted from the chart) 20:54 20:51 CT LEFT KNEE WO CONTRAST ordered. EDMS EDMS
[2021-02-18] MEDS ORDERED: TRAMADOL HCL 50 MG TAB ONE (22:10)
[2021-02-18 22:50] VITALS: TEMP 97
[2021-02-18 22:52] VITALS: BP 153/86; O2SAT 99
--- OUTSIDE RECORDS SUMMARY | 2021-02-19 23:16 | XMS REPORT | Continuity of Care Document ---
:1960 Author Organization [facility] t Address [address] [place] [address] Care Team Providers Name Role Phone Pio EPPS, [place] Primary Care Physician RENY OGLESBY Attending Clinician Unavailable RENY Attending Clinician Unavailable MARISELA Attending Clinician Unavailable FREDERICK Attending Clinician Unavailable RENY OGLESBY Admitting Clinician Unavailable Payers Payer Name Policy Type Policy Number Effective Date Expiration Date S mickey MEDICARE A B [id number] 2001 00:00:00 MEDICAID OF [place] [id number] 2017 00:00:00 MEDICARE PART A [id number] \\T\\ B - MEDICARE [facility]-MEDICAID - [id number] MEDICAID Problems Condition Condition Condition Status Onset Resolution Last Treating Co mments Source Name Details Category Date Date Treatment Clinician Date Biliary Biliary Disease Active [facility] No known No known Disease Metho di active active st problems problems Hospit a l Hyperlipid [facility]lipid Problem [facility] Hypert[facility]i Problem Active [facility] [place] [facility] Diabetes Diabetes Problem Active [facility] Physici ans Follow up Follow up Problem [facility] Allergies, Adverse Reactions, Alerts Allergy Allergy Status Severity Reaction(s) Onset Inactive Treating Comm ents Source Name Type Date Date Clinician Codeine Drug Active Nausea And [facility] CODEINE Allergy Active Med N\\T\\V [facility] - [facility]: Medical 00 [place] Hydrocod Drug Active Nausea And As per [facility] one-Acet Allergy Vomiting, 5-08 patient, Romina kes - aminophe Other (See 00:00: " it Medi sarah n Comments) 00 wears on Cente r my stomach" HYDROCOD Allergy Active Med N\\T\\V [facility] ONE-ACET 5-08 [facility] - AMINOPHE 00:00: Medical N 00 [place] hydrocod DA Active [facility] [place] Hydrocod Propensi Active Method i one ty to 7 st adverse 00:00: Hospita reaction 00 l s to drug Family History Family Member Diagnosis Comments Start Date Stop Date Source Natural father Diabetes [facility] Natural mother [facility] Natural mother Heart disease [facility] Natural mother Hy[facility] Unknown Family Family history of Other Uni versity of Member diabetes mellitus [place] [facility] Unknown Family Family history of Other Uni versity of Member hypertension [place] [facility] Unknown Family Family history of Other Uni versity of Member Heart problem [place] [facility] Social History Social Habit Start Date Stop Date Quantity Comments Source History of tobacco [facility] History SDOH [facility] al History SDOH [facility] Alcohol Comment 2019-11-17 2019-11-[address] Romina kes - 00:00:00 00:00:00 [facility] Tobacco Comment 2019-08-15 2019-08-15 quit [address] [facility] - 00:00:00 00:00:00 ago [facility] Cigarettes smoked 2019-08-15 2019-08-[address] [facility] - current (pack per 00:00:00 00:00:00 Medical Center day) - Reported Cigarette 2019-08-15 2019-08-[address] [facility] - pack-years 00:00:00 00:00:00 Medical Center Tobacco use and 2018-12-10 2018-12-10 Never used [facility] 00:00:00 00:00:00 Hospital Alcohol intake 2018-12-10 2018-12-10 Lifetime [facility] 00:00:00 00:00:00 non-drinker Hospital (finding) History SDOH 2018-11-01 2018-11-01 1 [facility] Frequency 00:00:00 00:00:00 Hospita l Sex Assigned At [birth year] [facility] 00:[facility]:00 00:[facility]:00 Hospital Smoking Status Start Date Stop Date Source Former smoker 2019-08-15 00:00:00 2019-08-15 00:00:[address] [facility] Never smoker [facility] Medications Ordered Filled Start Stop Current Ordering Indication Dosage Frequency Signature Comments Components Source Medication Medication Date Date Medication? Clinician (SIG) Name Name sucralfate 2020-0 Yes 1g Q.25D Take [address] (CARAFATE) 8-12 by mouth 4 Mini es - 1 gram 13:03: (four) Medical tablet 21 times Center daily. atorvastati 2020-0 Yes 40mg [...] daily as needed . lipase/prot 2020-0 Yes [id number] Q.33323512 Take [facility] ease/amylas 8-12 [id number] 36,000 [facility] - e (CREON 13:03: 3D [...] Center tablet hours as needed for Nausea. No known No Methodi medications [facility] Hospita l Vital Signs Vital Name Observation Time Observation Value Comments Source HEIGHT 2019-10-20 00:00:00 157.5 cm WEIGHT 2019-10-20 00:00:00 69.355 kg HEIGHT 2019-08-13 00:00:00 157.5 cm WEIGHT 2019-08-13 00:00:00 70.716 kg HEIGHT 2019-10-20 00:00:00 157.5 cm WEIGHT 2019-10-20 00:00:00 69.355 kg HEIGHT 2019-08-13 00:00:00 157.5 cm WEIGHT 2019-08-13 00:00:00 70.716 kg Height 2018-05-24 10:25:00 62 [in_us] [facility] Physician s Weight 2018-05-24 10:25:00 154.9 [lb_av] [facility]y [facility] Physician s Body Mass Index 2018-05-24 10:25:00 28.33 kg/m2 [facility] [place] Physician s BP Systolic 2018-04-26 10:21:00 127 mm[Hg] [facility] Physician s BP Diastolic 2018-04-26 10:21:00 76 mm[Hg] [facility] Physician s Height 2018-04-26 10:21:00 62 [facility] Weight 2018-04-26 10:21:00 155.6 [lb_av] [facility] [place] [facility] Body Mass Index 2018-04-26 10:21:00 28.46 kg/m2 [facility]ive rs[facility] [place] Physician s Temperature 2018-04-26 10:21:00 97 [degF] [facility] Physician s Heart Rate 2018-04-26 10:21:00 73 /min [facility] Physician s Procedures This patient has no known procedures. Plan of Care Planned Activity Planned Date Details Comments Source Future Scheduled 2020-12-[address] [facility] - Test 00:00:00 (Season Ended) [code = Medic al Center INFLUENZA VACCINE (Season Ended)] Future Scheduled 2020-04-[address] [facility] - Test 00:00:00 (12+) [code = Medical Center DEPRESSION SCREENING (12+)] Future Scheduled 2008 SHINGLES VACCINES ([address] [facility] - Test 00:00:00 of 2) [code = SHINGLES Medic al Center VACCINES (1 of 2)] Future Scheduled 2003-09-[address] [facility] - Test 00:00:00 (procedure) [code = Medical Center 36872600] Future Scheduled 2002-10-[address] [facility] - Test 00:00:00 WELLNESS (YEAR 2 or Medical Center FIRST YEAR if no IPPE) [code = MEDICARE ANNUAL WELLNESS (YEAR 2 or FIRST YEAR if no IPPE)] Future Scheduled 1979-09-[address] [facility] - Test 00:00:00 malignant neoplasm of Medica l Center cervix (procedure) [code = 022257569] Future Scheduled 1977 DTAP/TDAP/TD VACCINES CH I [...] 00:00:00 malignant neoplasm of Medica l Center breast (procedure) [code = 179355986] Future Scheduled [address] [facility] - Test 00:00:00 malignant neoplasm of Medica l Center colon (procedure) [code = 507055185] Future Scheduled DIABETES: RETINAL EYE [facility] Test (procedure) [code = 747345463] Future Scheduled [facility] Test malignant neoplasm of cervix (procedure) [code = 174080662] Future Scheduled BREAST CANCER [facility] Test SCREENING [code = BREAST CANCER [...] Date/Time Type Type Clinicians Facility Department ID 2021-01-11 Outpatient OTAN, [facility] Surgery [id number] [facility] 23:34:53 [facility] 2021-01-11 Outpatient OTAN, [facility] Surgery [id number] [facility] 20:32:36 [facility] 2021-01-11 Outpatient OTAN, [facility] Surgery [id number] [facility] 13:26:30 [facility] 2021-02-02 2021-02-02 Outpatient MAIASHLEY, [facility] [id number] [facility] 10:22:11 10:28:13 [facility] Gamal e of Medicin e 2021-01-10 2021-01-10 Outpatient [facility] [id number] [facility] 12:56:42 12:56:42 [facility] Medicin e 2019-11-17 2019-11-17 Outpatient [facility] [id number] SLE 00:00:00 00:00:00 2019-08-15 2019-08-15 Outpatient [facility] SLE [id number] SLE 00:00:00 00:00:00 2018-05-24 2018-05-24 RAFAT Apodaca [id number] Univers 10:30:00 10:30:00 jus SOLIS, Surgery nelson ANTONIO D.O. [facility] WILL, Physici D.O. ans 2018-04-26 2018-04-26 Appointmen MARISELA, UTP UTP [id number] Univers 10:15:00 10:15:00 t; nelson SOLIS D.O. [place] WILL, Physici D.O. ans 2018-04-19 2018-04-19 Appointlindsey MARISELA, UTP UTP [id number] Univers 10:00:00 10:00:00 t; nelson SOLIS D.O. [place] WILL, Physici D.O. ans 2018-03-27 2018-[facility] UTP UTP [id number] Univers 10:30:00 10:30:00 t; nelson SOLIS D.O. [place] WILL, Physici D.O. ans 2018-03-22 2018-03-22 Appointlindsey ANTONIO, UTP UTP [id number] Univers 10:30:00 10:30:00 t; nelson SOLIS D.O. [place] WILL, Physici D.O. ans 2018-03-06 2018-03-06 [facility] FREDERICK, RAFAT UTP [id number] Univers 08:30:00 08:30:00 t; CYRIL MACK M.D. i ty annmarie NAM M.D. [place] Physici ans 2018-02-14 2018-02-14 Appointlindsey MARISELA, UTP UTP [id number] Univers 08:15:00 08:15:00 t; nelson SOLIS D.O. [place] WILL, Physici D.O. ans 2018-01-11 2018-01-11 [facility] MARISELA, UTP UTP [id number] Univers 10:30:00 10:30:00 t; nelson SOLIS D.O. [place] WILL, Physici D.O. [facility] Results Test Description Test Time Test Comments Results Result Comments Source HEMOGLOBIN A1C 2019-11-19 09:28:00 Test Item Value Reference Range Interpretation Comme nts HEMOGLOBIN A1C (MAN) (test code = 368) 8.1 % 4.3-6.1 H POCT-GLUCOSE [id number] 07:44:00 Test Item Value Reference Range Interpretation Comments POC-GLUCOSE METER 130 mg/dL 70-110 H : TESTED A T [facility] 6720 (BEAKER) (test code = TERRI Hirsch ZAIDI MD, 1538) 03863: Rolling Machine Operator Automatic/Techni wendy ID = [id number] for KRISSY FINNEGAN COMPREHENSIVE METABOLIC [id number] 06:55:00 Test Item Value Reference Range Interpretation [...] S NOT APPLICABLE FOR DIALYSIS PATIEN TS. Rolling Machine Operator Automatic ID - PIAYA LCBC W/PLT COUNT & AUTO [id number] 05:55:00 Test Item Value Reference Range Interpretation [...] PERCENT (BEAKER) (test code = 2801) POCT-GLUCOSE [id number] 21:17:00 Test Item Value Reference Range Interpretation Comments POC-GLUCOSE METER 255 mg/dL 70-110 H : TESTED A T [facility] 6720 (BEAKER) (test code = TERRI Hirsch [facility], 1538) 39832: Rolling Machine Operator Automatic/Techni wendy ID = [id number] for ABHILASH MARTI [id number] 11:22:39INTRA OP IMAGINGReason for exam:->abnormal imaging Fluoroscopic unit utilized for a procedure performed in the OR. No interpretation was requested. Refer to the operative report for findings. Refer to PACS for patient radiation dose information.POCT-GLUCOSE METER 2019-11-18 07:45:00 Test Item Value Reference Range Interpretation Comments POC-GLUCOSE METER 155 mg/dL 70-110 H : TESTED A T [facility] 6720 (BEAKER) (test code = TERRI Hirsch [facility], 1538) 55523: Rolling Machine Operator Automatic/Techni wendy ID = [id number] for ED WARDS, KATIE TISSUE [id number] 09:36:00Surgical Pathology Report Case: [id number] Authorizing Provider: Vinnie Oglesby Collected: 08/26/2019 12:43 PM MD Beatrice Ordering Location: [facility] Endoscopy Received: 08/26/2019 01:56 PM Services Pathologist: Isac Cummins MD Specimen: Biopsy, Gastric, gastric polyp A. STOMACH, POLYP, BIOPSY: - ANTRAL MUCOSA WITH POLYPOID FOVEOLAR HYPERPLASIA - NEGATIVE FOR HELICOBACTER PYLORI ORGANISMS BY WARTHIN STARRY STAIN - NEGATIVE FOR INTESTINAL METAPLASIA, DYSPLASIA, MALIGNANCY SigningPathologist Direct Phone Line: [phone] signed by Isac Cummins MD on 08/27/2019 at 9:36 [id number]: upper endoscopy, biopsyPre and postop diagnosis: acute [...] evaluated Immunohistochemistry technical testing was performed at [facility], Pathology Laboratory where it was developed [...] to perform high complexity clinical laboratory testing.POCT-GLUCOSE [id number] 13:26:00 Test Item Value Reference Range Interpretation Comments POC-GLUCOSE METER 122 mg/dL 70-110 H : TESTED A T [facility] 6720 ([employer]) (test code = [facility], 1538) 38481: Rolling Machine Operator Automatic/Techni wendy ID = [id number] for Ilda Bailey POCT-GLUCOSE [id number] 11:40:00 Test Item Value Reference Range Interpretation Comments POC-GLUCOSE METER 137 mg/dL 70-110 H : TESTED A T [facility] 6720 ([employer]) (test code = [employer] [facility], 1538) 07786: Rolling Machine Operator Automatic/Techni wendy ID = [id number] for KATIE CANTU COLON SEGMENT RESEC.NOT [id number] 19:21:00 RUN DATE: 11/14/18 [facility] PAGE 1 RUN TIME: 810 Specimen Inquiry RUN USER: INTERFACE PATIENT: DAISY HAMMER LOC: CHIDI #: [id number] AGE/SX: 58/F ROOM: [facility] RE11/11/18REG DR: Betito Collazo MD : 56 BED: A DIS: 11/13/18 STATUS: DIS Sharla TLOC: SPEC #: [id number] RECD: 11/11/18 STATUS: SOUJer RE #: [id number] CRISTINO: 11/11/18- SUBM DR: Betito Collazo MD ENTERED: 11/11/18 SP TYPE: COLONR NIDIA DR: ORDERED: LEVEL V SURGICA CODES: S80644 - COLON, NOS PROCEDURES: LEVEL V SURGICA (Incomplete) TISSUES: COLON, NOS - RECTOSIGMOID DIVERTICULITIS CLINICAL HISTORY 58 year old, diverticulitis (wpd) FINAL DIAGNOSIS Designated "rectosigmoid diverticulitis", segmental resection: - diverticular disease with peridiverticular fibrosis - intestinal rings - unremarkable CPT code(s): 62917 pkg/wpd 11/13/18 GROSS DESCRIPTION ANATOMIC SOURCE OFTISSUE [...] and contains unremarkable mucosa and surrounding tissue. Steam Gigger sections are submitted in A2. The largest [...] Specimen Inquiry RUN USER: INTERFACE SPEC #: [id number] PATIENT: DAISY HAMMER #[id number] (Continued) GROSS DESCRIPTION (Continued) 1.0 cm and containing green-brown fecal material. No discrete perforationor discoloration in those areas are noted. Steam [employer]igger sections of the intestine with the diverticula are submitted in A3 - A8. Examination of attached adipose tissue reveals no discrete lymph nodes. Steam [employer]igger sections are submitted in A9 - A16. [employer]/wpd 11/11/18 @ 8959 MICROSCOPIC DESCRIPTION The specimen consists of a segment of rectosigmoid colon containing numerous diverticula which extend through the muscularis into the rectosigmoid adipose tissue. Foci of fibrosis are present adjacent to the diverticula. No granulomas, dysplasia or neoplasia are identified. The intestinal rings are unremarkable. abram/wpandreea 11/13/18 Signed Deena Storm 11/13/181920 ENDOF REPORT [id number] 07:10:00 Test Item Value Reference Range Interpretation Comments GLUBED (test code = GLUBED) 180 mg/dL 65-110 H COMPREHENSIVE METABOLIC [id number] 05:48:00 Test Item Value Reference Range Interpretation [...] 106 units/L 46-116 N code = ALKP) [id number] 05:48:00 Test Item Value Reference Range Interpretation Comments MAGNESIUM (test code = MAG) 1.8 mg/dL 1.8-2.4 N CBC W/AUTO [id number] 04:49:00 Test Item Value Reference Range Interpretation [...] REQUIRED (test NORMAL NORMAL code = PLTMR) [id number] 21:57:00 Test Item Value Reference Range Interpretation Comments GLUBED (test code = GLUBED) 278 mg/dL 65-110 H [id number] 17:26:00 Test Item Value Reference Range Interpretation Comments GLUBED (test code = 292 mg/dL 65-110 H Hypoglyc emic Protoco GLUBED) [id number] 12:11:00 Test Item Value Reference Range Interpretation Comments GLUBED (test code = GLUBED) 131 mg/dL 65-110 H [id number] 07:23:00 Test Item Value Reference Range Interpretation Comments GLUBED (test code = GLUBED) 110 mg/dL 65-110 N CHEMISTRY 7 [id number] 05:23:00 Test Item Value Reference Range Interpretation [...] code = CA) 7.8 mg/dL 8.4-10.2 L [id number] 05:23:00 Test Item Value Reference Range Interpretation Comments MAGNESIUM (test code = MAG) 1.8 mg/dL 1.8-2.4 N CBC W/AUTO [id number] 05:19:00 Test Item Value Reference Range Interpretation [...] REQUIRED (test NORMAL NORMAL code = PLTMR) [id number] 22:07:00 Test Item Value Reference Range Interpretation Comments GLUBED (test code = GLUBED) 171 mg/dL 65-110 H [id number] 17:41:00 Test Item Value Reference Range Interpretation Comments GLUBED (test code = GLUBED) 157 mg/dL 65-110 H [id number] 13:26:00 Test Item Value Reference Range Interpretation Comments GLUBED (test code = GLUBED) 154 mg/dL 65-110 H [id number] 06:54:00 Test Item Value Reference Range Interpretation Comments GLUBED (test code = GLUBED) 143 mg/dL 65-110 H CHEMISTRY 7 [id number] 13:07:00 Test Item Value Reference Range Interpretation [...] = CA) 8.5 mg/dL 8.4-10.2 N HGB [id number] 12:51:00 Test Item Value Reference Range Interpretation Comments HEMOGLOBIN (test code = HGB) 13.6 g/dL 10.7-13.9 N HEMATOCRIT (test code = HCT) 40.3 % 32.1-42.1 N
== END 2021-02-18 22:36 | disposition home or self-care (01) ==
LOC: ER 19:21
DX: S80.02XA Contusion of left knee, initial encounter (principal); E11.9 Type 2 diabetes mellitus without complications; W18.30XA Fall on same level, unspecified, initial encounter; Y92.009 Unspecified place in unspecified non-institutional (private) residence as the place of occurrence of the external cause
CPT/HCPCS: 73700; 99283

== ENCOUNTER 2021-06-02 07:29 | Day surgery (SDC) | payer OTHER ==
[2021-05-30 10:39] LABS: Urine Appearance CLEAR (Clear); Urine Bilirubin NEGATIVE (Negative); Urine Blood NEGATIVE (Negative); Urine Color YELLOW (Yellow); Urine Glucose NEGATIVE (Negative); Urine Protein NEGATIVE (Negative); Urine Specific Gravity <=1.005 (1.005-1.030); Urine Urobilinogen 0.2 mg/dL (0.2-1.0)
[2021-05-30 10:40] LABS: Urine Microscopic Reflex NO UMIC
[2021-05-30 11:04] LABS: Hematocrit 40.4 % (36.0-45.0); Lymphocytes % 27.1 % (15.3-44.8); MPV 7.5 fL (7.6-11.3); RBC Red Blood Cell Count 4.48 M/uL (3.86-4.86)
[2021-05-30 11:06] LABS: Protime INR 0.95
[2021-05-30 11:12] LABS: Potassium 3.8 mmol/L (3.5-5.1)
[2021-06-02] MEDS ORDERED: CEFAZOLIN SODIUM 1 GM/VIAL ONE (07:36)
[2021-06-02] MEDS ORDERED: LIDOCAINE 1% W/EPI 1:100,000 MDV 50 ML VIAL ONE (07:36)
[2021-06-02] MEDS ORDERED: NA CHLORIDE 0.9% 100 ML IV ONE (07:36)
[2021-06-02] MEDS ORDERED: MIDAZOLAM HCL 2 MG/2 ML INJ ONE (07:38)
[2021-06-02] MEDS ORDERED: propofoL 200 MG/20 ML VIAL IV ONE (07:38)
[2021-06-02] MEDS ORDERED: LIDOCAINE 2% MPF 5 ML VIAL ONE (07:38)
[2021-06-02] MEDS ORDERED: KETAMINE HCL 500 MG/5 ML VIAL ONE (07:38)
[2021-06-02] MEDS ORDERED: dexAMETHasone 10 MG/ML VIAL ONE (07:38)
[2021-06-02] MEDS ORDERED: ONDANSETRON 4 MG/2 ML VIAL ONE (07:38)
[2021-06-02] MEDS ORDERED: FENTANYL CITR 250 MCG/5 ML ONE (07:38)
[2021-06-02] MEDS ORDERED: ROCURONIUM 50 MG/5 ML VIAL IV ONE (07:38)
[2021-06-02] MEDS ORDERED: NS 0.9% VIAL 10 ML ONE (07:39)
[2021-06-02] MEDS ORDERED: CEFAZOLIN/SWI 2gm 2 GM/20 ML SYR ONE (07:42)
[2021-06-02] MEDS ORDERED: NA CHLORIDE 0.9% 1,000 ML ONE ×2 (07:42→09:07)
[2021-06-02] MEDS ORDERED: Ringers Lactate 1,000 ML IV ONE ×2 (09:10→11:29)
[2021-06-02] MEDS: VASOPRESSIN 20 UNIT/ML VIAL ONE ×2 (09:10→09:47)
[2021-06-02] MEDS ORDERED: VECURONIUM 10 MG/VIAL IV ONE (09:11)
[2021-06-02] MEDS: HYDROMORPHONE HCL 1 MG/ML INJ ONE ×5 (12:28→13:14)
[2021-06-02] MEDS ORDERED: ACETAMINOPHEN 500 MG TAB PO PRN (12:55)
[2021-06-02] MEDS ORDERED: ONDANSETRON 4 MG/2 ML VIAL IV PRN (12:55)
[2021-06-02] MEDS ORDERED: PROMETHAZINE INJ 25 MG/ML AMP IV PRN (12:55)
[2021-06-02] MEDS ORDERED: GLUCAGON 1 MG/VIAL IM PRN (13:04)
[2021-06-02] MEDS ORDERED: INSULIN -REGULAR HUMAN 50 UNIT/0.5 ML ML ONE (13:04)
[2021-06-02] MEDS ORDERED: D50W 25 GM/50 ML SYRINGE IV PRN (13:04)
[2021-06-02 13:16] VITALS: O2SAT 98
--- NOTE | 2021-06-02 13:46 | P.BOP ---
Preoperative diagnosis: stage 3 ant wall prolapse, vault and post prolapse, occult ERNIE Postoperative diagnosis: same, perineocele Primary procedure: bilat SSLF colpopexy, biologic graft augmented ant repair, post repair Secondary procedure: TVT-O, cysto First Aid Teacher: Leatha Brunson Estimated blood loss: 100, UO 200 Specimen: none Findings: 0/+2/+1/5/thin/6/-1/0/na Anesthesia: General Complications: None Drain(s): Urinary catheter Implants: TVT -O, dermapure Fluids & blood products: 2L LR Transferred to: Recovery Room Condition: Good
[2021-06-02] MEDS: GABAPENTIN 300 MG CAP PO SCH ×2 (14:00→20:50)
[2021-06-02 14:50] VITALS: BMI 28.0
[2021-06-02] MEDS: INSULIN -REGULAR HUMAN 50 UNIT/0.5 ML ML SQ SCH ×2 (17:31→20:51)
[2021-06-02] MEDS: MORPHINE 2 MG/ML SYR IV PRN ×2 (17:32→21:28)
[2021-06-02] MEDS: CEFAZOLIN 1 GM in NA CHLORIDE 0.9% 50 ML IVPB SCH (17:48)
[2021-06-02] MEDS: DICYCLOMINE HCL 10 MG CAP PO SCH (20:48)
[2021-06-02] MEDS: PANTOPRAZOLE 40MG TABLET PO SCH (20:48)
[2021-06-02] MEDS: Ringers Lactate 1,000 ML IV SCH (20:54)
[2021-06-02] MEDS ORDERED: ATORVASTATIN 40 MG TAB PO SCH (21:00)
[2021-06-02] MEDS ORDERED: INSULIN GLARGINE 100 UNIT/ML SQ SCH (21:00)
[2021-06-02] MEDS ORDERED: lisinopriL 20 MG TAB PO SCH (21:00)
[2021-06-02] MEDS ORDERED: SCOPOLAMINE HYDROBROMIDE PATCH TD ONE ×2 (22:41→23:03)
[2021-06-03] MEDS: CEFAZOLIN 1 GM in NA CHLORIDE 0.9% 50 ML IVPB SCH ×2 (01:11→09:38)
[2021-06-03] MEDS: MORPHINE 2 MG/ML SYR IV PRN ×2 (01:29→07:52)
[2021-06-03 04:58] VITALS: BP 99/50; TEMP 99.3
[2021-06-03] MEDS: Ringers Lactate 1,000 ML IV SCH (05:00)
[2021-06-03 05:55] LABS: Absolute Lymphocytes (CBC) 2.4 K/uL (0.7-4.9); Hematocrit 34.4 % (36.0-45.0); MPV 7.2 fL (7.6-11.3); RBC Red Blood Cell Count 3.77 M/uL (3.86-4.86)
[2021-06-03] MEDS: INSULIN -REGULAR HUMAN 50 UNIT/0.5 ML ML SQ SCH ×2 (07:08→11:55)
[2021-06-03] MEDS ORDERED: LIPASE/PROTEASE/AMYLASE CAP PO SCH (09:00)
[2021-06-03] MEDS ORDERED: [UNRECOGNIZED DRUG - OTHER] PO SCH (09:00)
[2021-06-03] MEDS ORDERED: lisinopriL 20 MG TAB PO SCH (09:00)
[2021-06-03] MEDS ORDERED: INSULIN GLARGINE 100 UNIT/ML SQ SCH (09:00)
[2021-06-03] MEDS ORDERED: LUBIPROSTONE 24 MCG CAP PO SCH (09:00)
[2021-06-03] MEDS: DICYCLOMINE HCL 10 MG CAP PO SCH (09:37)
[2021-06-03] MEDS: PANTOPRAZOLE 40MG TABLET PO SCH (09:38)
--- NOTE | 2021-06-03 09:56 | OP ---
Date of Procedure: 06/02/2021 Surgeon: Madeleine Mitchell MD Ocean Lifeguard: Leatha Keller. Preoperative Diagnoses: Stage III anterior wall prolapse, posterior wall prolapse, and occult stress urinary incontinence. Postoperative Diagnoses: Stage III anterior wall prolapse, posterior wall prolapse, occult stress ur inary incontinence, and perineocele. Procedures Performed: Bilateral sacrospinous ligament fixation, colpopexy, biologic graft augmented anterior repair, posterior repair, perineorrhaphy, tension-free vaginal tape-obturator, and cystoscop y. Anesthesia: General with LMA. Estimated Blood Loss: 100. Urine Output: 200. Specimens: No specimens. Drains: Neri catheter. Implants: TVT-O and DermaPure. Fluids: 2 L of LR. Findings: Pop-Q was 0, +2, +1, 5, thin, 6, -1, 0, . Biologic graft repair was used for augmentation as the graft was thin. Extra interspinous graft mate rial was reinforced on top of the existing trapezoid graft material and stitched for providing extra support. Next, TVT-O was performed because Bulkamid was not available in the hospital. There was al so lack of availability to a second graft as needed. Procedure In Detail: After informed consent was verified, patient was taken back to OR, placed in grewal pine fashion on the operating table. General anesthesia was given. She was placed in a dorsal litho janis position using Tray stirrups. Lower abdomen, vulva, vagina, and perineum were prepped and drap ed in a sterile fashion. Neri was placed to drain the bladder. Urethrovesical junction was identif ied and vaginal vault was identified. 3-0 Vicryl sutures were placed at both ends of the vaginal cuf f scar. After dilute vasopressin was injected in the midline and on the side, 20 cc, midline incision was mad e with a scalpel and incision extended all the way to the uterovesical dissection and apex. Dissecti on was carried to separate the bladder underlying, dissecting to the paravaginal space on both sides. Pararectal space was entered. Ischial spine was palpated and Sacrospinous ligament was cleaned up sweeping medially and posterior to the ischial spine carefully and cleaning medially and cleaning lat erally and superiorly on the white line. Similar dissection was performed on both sides. Dissection of the bladder was carried to the level of the wall. Apical enterocele was repaired with 3-0 Monocr yl. Dissection was carried on the bladder and all the way to the UVJ. Cherelle plication was done with help of 2-0 PDS and 3-0 Monocryl was used to reduce the central bladder bulge. 2-0 PDS x3 sutures w ere placed side to side to reinforce. Then, the biologic graft was taken. An 8 x 6 x 5 cm trapezoid was cut. The extra piece of tissue was placed at the apex with an intraspinous diameter and stitche d the material. Thus, the material appeared to be very this. There was unavailability of a second g raft to be used as an alternative. Three 2-0 Prolene sutures were placed at the vaginal vault, 1 in the center and 2 on either side to h old the graft and distally at the UVJ. 3 PDS sutures were placed. Then, the graft was attached at t he vaginal vault. The Prolene sutures with PDS at the distal, central attachments. The sacrospinous suture was placed through the graft and the extra material as well using a sadia stitch. Both the sacrospinous sutures were tied down. At the very end, PDS sutures were placed from the white line to the graft. The one on the left side appeared to be too much under tension and torturous. The exist ing stitch was removed. The Capio PDS was used and reattached to the graft. Vaginal epithelial trim marilia was done about 3/4 of centimeter all along the anterior midline to reduce the bulge and the sagg y vaginal epithelium skin. 2-0 Vicryl was used to close the anterior wall in a continuous running lo cked fashion. Once this was done, mid urethral area was picked up with 2 Allis clamps. There was no Bulkamid available, so we planned to do a sling. Midline incision was made after dilute vasopressin was injected. Dissection was carried at a 45 degrees angle to the horizontal and vertical planes to wards the ipsilateral obturator space. Obturator membrane was perforated, tract was widened. Simila r dissection was performed on the opposite side and using the wing guide, the spike was passed into t he obturator membrane and hugging the inferior pubic ramus, exiting outside the groin area avoiding t he adductor longus tendon almost at the level of the clitoral banks. Similar pass was taken on the op posite side. Plastic sheaths were cut off. The plastic dilators were cut off and sheaths were held with Kellys. The mesh was tensioned with the help of Metzenbaum scissors, loosened up, but not too t ight or loose. Sheaths were pulled out. Mesh was trimmed flushed with the skin that was bleeding at the right groin site. Pressure was held and the bleeding stopped in 3 minutes. Vaginal epithelium and grafts were irrigated with the antibiotic solution and with the help of continuous running 3-0 Vi cryl sutures. Dermabond was applied. Cystoscopy was performed after removing the Neri. Strong jet s of urine from both ureteric orifices were seen. No evidence of any trauma to the bladder or divert icula or tumors. Bladder was drained and Neri was reclamped and retracted superiorly. Attention was directed to the posterior repair. Tylenol remnants were held with 2 Allis clamps. Elise mond-shaped incision was made in the distal 1/3 of the vaginal canal. A triangular skin incision was made on the perineum to gain access to the perineal muscles. Once underlying connective tissue was detached, it was very clear that there was slight distal left lateral detachment from the sidewall. Mostly, it was detached from the perineal body and the perineal body was gaping. Perineal body reconstruction was done with three 2-0 Vicryl sutures. Once this was reconstructed, th e fascia was reattached to the left lateral wall with a continuous running 2-0 PDS suture. This was passed into the perineal body as well and then once the closure was completed, no trimming was done. There was a pull down technique. The posterior wall vaginal epithelium was pulled down towards the perineal incision and the incision was closed in transverse fashion. 3-0 Vicryl was used to continuo usly run and close the subcutaneous tissues on the perineum and then the subcuticular sutures. Recta l exam was done and was negative for any trauma or foreign body in the rectum at the level of the pos terior repair as well as the sacrospinous suture. A Neri was left in place and attached to a draina ge bag. Vaginal packing was placed. Patient was recovered from anesthesia and taken to PACU in stab le condition. For overnight admission, blood sugars were running lower this morning and then postop, it was 204, which was covered by the insulin sliding scale and a medical consult with her primary ca re physician . Additionally, 1 g of Ancef q.8 hours x2 doses were going to be given and rafa das will be discharged. CLEMENCIA/BABATUNDE Voice ID: [id number] Report ID: [id number]
[2021-06-03] MEDS ORDERED: TRAMADOL HCL 50 MG TAB PO ONE (11:10)
== END 2021-06-03 12:20 | disposition home or self-care (01) ==
LOC: OR 07:29 → 2ND-WC 13:13 → OR 06-03 12:20
PROVIDERS: ATTEND Obstetrics & Gynecology
PROC: 0JQC0ZZ Repair Pelvic Region Subcutaneous Tissue and Fascia, Open Approach (ICD-10-PCS; 2021-06-02)
PROC: 0JQC0ZZ Repair Pelvic Region Subcutaneous Tissue and Fascia, Open Approach (ICD-10-PCS; 2021-06-02)
PROC: 0HQ9XZZ Repair Perineum Skin, External Approach (ICD-10-PCS; 2021-06-02)
PROC: 0TSD0ZZ Reposition Urethra, Open Approach (ICD-10-PCS; 2021-06-02)
PROC: 0USG7ZZ Reposition Vagina, Via Natural or Artificial Opening (ICD-10-PCS; principal; 2021-06-02 08:30)
DX: N99.3 Prolapse of vaginal vault after hysterectomy (principal); N81.12 Cystocele, lateral; N95.2 Postmenopausal atrophic vaginitis; E11.65 Type 2 diabetes mellitus with hyperglycemia; N39.3 Stress incontinence (female) (male); K59.00 Constipation, unspecified; N81.6 Rectocele; Z20.822 Contact with and (suspected) exposure to COVID-19
CPT/HCPCS: 85025 ×2; 80048; 36415 ×2; 86900; 86850; 85610; 86901; 82947 ×6; 85730; 81003; 94010 ×2; 57282; 57260; 57288; U0002; J2704; J2550; J2250; J3010; J1100; J2270 ×4; J1170 ×2; J0690 ×5; J7120 ×4; J7030 ×2; J2405 ×2

== ENCOUNTER 2021-06-24 08:47 | Emergency (ER) | payer OTHER ==
--- OUTSIDE RECORDS SUMMARY | 2021-06-24 08:55 | XMS REPORT | Continuity of Care Document ---
:1960 Author Organization [facility] t Address [address] [place] [address] Care Team Providers Name Role Phone Pio EPPS, [place] Primary Care Physician RENY OGLESBY Attending Clinician Unavailable RENY Attending Clinician Unavailable MARISELA Attending Clinician Unavailable FREDERICK Attending Clinician Unavailable RENY OGLESBY Admitting Clinician Unavailable Payers Payer Name Policy Type Policy Number Effective Date Expiration Date S mickey MEDICARE A B [id number] 2001 00:00:00 MEDICAID OF [place] [id number] 2017 00:00:00 MEDICARE PART A [id number] \\T\\ B - MEDICARE [facility]-MEDICAID - [id number] MEDICAID Problems Condition Condition Condition Status Onset Resolution Last Treating Co mments Source Name Details Category Date Date Treatment Clinician Date Biliary Biliary Disease Active [facility] No known No known Disease Metho di active active st problems problems Hospit a [facility]lipid [facility] Hypert[facility]i Problem Active [facility] [place] [facility] Diabetes Diabetes Problem Active Un[facility] rs it[facility] Physici ans Follow up Follow up [facility] Allergies, Adverse Reactions, Alerts Allergy Allergy Status Severity Reaction(s) Onset Inactive Treating Comm ents Source Name Type Date Date Clinician Codeine Drug Active Nausea And [facility] CODEINE Allergy Active Med N\\T\\V [facility] Medical 00 [place] Hydrocod Drug Active Nausea And As per [facility] one-Acet Allergy Vomiting, 5-08 patient, Romina kes - aminophe Other (See 00:00: " it Medi sarah n Comments) 00 wears on Cente r my stomach" HYDROCOD Allergy Active Med N\\T\\V [facility] ONE-ACET 5-08 [facility] - AMINOPHE 00:00: Medical N 00 [place] hydrocod DA Active [facility] [place] Hydrocod Propensi Active Method i one ty to 7 st adverse 00:00: Hospita reaction 00 l s to drug Family History Family Member Diagnosis Comments Start Date Stop Date Source Natural [facility] father [facility] Natural mother Diabetes [facility] Natural mother [facility] Natural mother Hypertension [facility] Unknown Family Family history of Other [...] [facility] - use [facility] History SDOH [facility] Alcohol Std Drinks Hospit al History SDOH [facility] Alcohol Comment 2019-11-17 2019-11-[address] Romina kes - 00:00:00 00:00:00 [facility] Tobacco Comment 2019-08-15 2019-08-15 quit [address] [facility] - 00:00:00 00:00:00 ago [facility] Cigarettes smoked 2019-08-15 2019-08-[address] [facility] - current (pack per 00:00:00 00:00:00 Medical Center day) - Reported Cigarette 2019-08-15 2019-08-[address] [facility] - pack-years 00:00:00 00:00:00 Medical Center Tobacco use and 2018-12-10 2018-12-10 Never used [facility] exposure 00:00:00 00:00:00 Hospital Alcohol intake 2018-12-10 2018-12-10 Lifetime [facility] 00:00:00 00:00:00 non-drinker Hospital (finding) History SDOH 2018-11-01 2018-11-01 1 [facility] Alcohol Frequency 00:00:00 00:00:00 Hospita l Sex Ass[birth year] At [birth year] [facility] 00:00:00 00:00:00 Hospital Smoking Status Start Date Stop Date Source Former smoker 2019-08-15 00:00:00 2019-08-15 00:00:[address] [facility] [facility] Never smoker [facility] Medications Ordered Filled Start Stop [...] daily as needed . lipase/prot 2020-0 Yes [id number] Take [facility] ease/amylas 8-12 [id number] 36,000 [facility] - e (CREON 13:03: 3D [...] Height 2018-05-24 10:25:00 62 [in_us] [facility] Physician s Weight 2018-05-24 10:25:00 154.9 [lb_av] [facility] ity [facility] Physician s Body Mass Index 2018-05-24 10:25:00 28.33 kg/m2 [facility] [place] Physician s BP Systolic 2018-04-26 10:21:00 127 mm[Hg] [facility] Physician s BP Diastolic 2018-04-26 10:21:00 76 mm[Hg] [facility] Physician s Height 2018-04-26 10:21:00 62 [in_us] [facility] Physician s Weight 2018-04-26 10:21:00 155.6 [lb_av] [facility] [place] [facility] Body Mass Index 2018-04-26 10:21:00 28.46 kg/m2 [facility] [place] Physician s Temperature 2018-04-26 10:21:00 97 [degF] [facility] Physician s Heart Rate 2018-04-26 10:21:00 73 /min [facility] Physician s Procedures This patient has [...] Test 00:00:00 (procedure) [code = Medical Center 47999090] Future Scheduled 2002-10-[address] [facility] - Test 00:00:00 WELLNESS (YEAR 2 or Medical Center FIRST YEAR if no IPPE) [code = MEDICARE ANNUAL WELLNESS (YEAR 2 or FIRST YEAR if no IPPE)] Future Scheduled 1979-09-[address] [facility] - Test 00:00:00 malignant neoplasm of Medica l Center cervix (procedure) [code = 147712908] Future Scheduled 1977 DTAP/TDAP/TD VACCINES CH I [...] Medica l Center breast (procedure) [code = 269877429] Future Scheduled [address] [facility] - Test 00:00:00 malignant neoplasm of Medica l Center colon (procedure) [code = 455843811] Future Scheduled DIABETES: RETINAL EYE [facility] Test (procedure) [code = 075555327] Future Scheduled [facility] for [facility] Test malignant neoplasm of cervix (procedure) [code = 603469863] Future Scheduled BREAST CANCER [facility] Test SCREENING [code = BREAST CANCER [...] Clinicians Facility Department ID 2021-01-11 Outpatient OTAN, [facility] Surgery [id number] [facility] 23:34:53 [facility] 2021-01-11 Outpatient OTAN, [facility] Surgery [id number] [facility] 20:32:36 [facility] 2021-01-11 Outpatient OTAN, [facility] Surgery [id number] [facility] 13:26:30 [facility] 2021-02-02 2021-02-02 Outpatient MAIASHLEY, [facility] [id number] [facility] 10:22:11 10:28:13 [facility] Gamal e of Medicin e 2021-01-10 2021-01-10 Outpatient [facility] [id number] [facility] 12:56:42 12:56:42 Gam[facility] Medicin e 2019-11-17 2019-11-17 Outpatient [facility] [id number] SLE 00:00:00 00:00:00 2019-08-15 2019-08-15 Outpatient EL [facility] SLE [id number] SLE 00:00:00 00:00:00 2018-05-24 2018-05-24 RAFAT Apodaca [id number] Univers 10:30:00 10:30:00 jus SOLIS, Surgery nelson ANTONIO D.O. [facility] WILL, Physici D.O. ans 2018-04-26 2018-04-26 Appointmen MARISELA, UTP UTP [id number] Univers 10:15:00 10:15:00 t; nelson SOLIS D.O. [place] WILL, Physici D.O. ans 2018-04-19 2018-04-19 Appointlindsey MARISELA, UTP UTP [id number] Univers 10:00:00 10:00:00 t; nelson SOLIS D.O. [place] WILL, Physici D.O. ans 2018-03-27 [facility]ELA, UTP UTP [id number] Univers 10:30:00 10:30:00 t; nelson SOLIS D.O. [place] WILL, Physici D.O. ans 2018-03-22 2018-03-22 Appointlindsey ANTONIO, UTP UTP [id number] Univers 10:30:00 10:30:00 t; nelson SOLIS D.O. [place] WILL, Physici D.O. ans 2018-03-06 2018[facility] FREDERICK, RAFAT UTP [id number] Univers 08:30:00 08:30:00 t; CYRIL MACK M.D. i ty annmarie NAM M.D. [place] Physici ans 2018-02-14 2018-02-14 Appointlindsey MARISELA, UTP UTP [id number] Univers 08:15:00 08:15:00 t; nelson SOLIS D.O. [place] WILL, Physici D.O. ans 2018-01-11 2018[facility] MARISELA, UTP UTP [id number] Univers 10:30:00 10:30:00 t; nelson SOLIS D.O. [place] WILL, Physici D.O. [facility] Results Test Description Test Time Test Comments Results Result Comments Source HEMOGLOBIN A1C 2019-11-19 09:28:00 Test Item Value Reference Range Interpretation Comme nts HEMOGLOBIN A1C (MNA) (test code = 368) 8.1 % 4.3-6.1 H POCT-GLUCOSE [id number] 07:44:00 Test Item Value Reference Range Interpretation Comments POC-GLUCOSE METER 130 mg/dL 70-110 H : TESTED A T [facility] 6720 (BEAKER) (test code = TERRI Hirsch [place], 1538) 75860: Sample Puller/Techni wendy ID = [id number] for KRISSY FINNEGAN COMPREHENSIVE METABOLIC [id number] 06:55:00 Test Item Value Reference Range Interpretation [...] S NOT APPLICABLE FOR DIALYSIS PATIEN TS. Sample Puller ID - PIAYA LCBC W/PLT COUNT & AUTO [id number] 05:55:00 Test Item Value Reference Range Interpretation [...] PERCENT (BEAKER) (test code = 2801) POCT-GLUCOSE [id number] 21:17:00 Test Item Value Reference Range Interpretation Comments POC-GLUCOSE METER 255 mg/dL 70-110 H : TESTED A T [facility] 6720 (BEAKER) (test code = TERRI Hirsch [facility], 1538) 45734: Sample Puller/Techni wendy ID = [id number] for ABHILASH MARTI [id number] 11:22:39INTRA OP IMAGINGReason for exam:->abnormal imaging Fluoroscopic unit utilized for a procedure performed in the OR. No interpretation was requested. Refer to the operative report for findings. Refer to PACS for patient radiation dose information.POCT-GLUCOSE METER 2019-11-18 07:45:00 Test Item Value Reference Range Interpretation Comments POC-GLUCOSE METER 155 mg/dL 70-110 H : TESTED A T [facility] 6720 (BEAKER) (test code = TERRI Hirsch [facility], 1538) 84883: Sample Puller/Techni wendy ID = [id number] for ED WARDS, KATIE TISSUE [id number] 09:36:00Surgical Pathology Report Case: [id number] Authorizing Provider: Vinnie Oglesby Collected: 08/26/2019 12:43 PM MD Beatrice Ordering Location: [facility] Endoscopy Received: 08/26/2019 01:56 PM Services Pathologist: Isac Cummins MD Specimen: Biopsy, Gastric, gastric polyp A. STOMACH, POLYP, BIOPSY: - ANTRAL MUCOSA WITH POLYPOID FOVEOLAR HYPERPLASIA - NEGATIVE FOR HELICOBACTER PYLORI ORGANISMS BY WARTHIN STARRY STAIN - NEGATIVE FOR INTESTINAL METAPLASIA, DYSPLASIA, MALIGNANCY SigningPathologist Direct Phone Line: [phone] signed by Isac Cummins MD on 08/27/2019 at 9:36 [id number]: upper endoscopy, biopsyPre and postop diagnosis: acute [...] evaluated Immunohistochemistry technical testing was performed at [facility], Pathology Laboratory where it was developed [...] to perform high complexity clinical laboratory testing.POCT-GLUCOSE [id number] 13:26:00 Test Item Value Reference Range Interpretation Comments POC-GLUCOSE METER 122 mg/dL 70-110 H : TESTED A T [facility] 6720 ([employer]) (test code = [facility], 1538) 68879: Sample Puller/Techni wendy ID = [id number] for Ilda Bailey POCT-GLUCOSE [id number] 11:40:00 Test Item Value Reference Range Interpretation Comments POC-GLUCOSE METER 137 mg/dL 70-110 H : TESTED A T [facility] 6720 ([employer]) (test code = [employer] [facility], 1538) 20521: Sample Puller/Techni wendy ID = [id number] for KATIE CANTU COLON SEGMENT RESEC.NOT [id number] 19:21:00 RUN DATE: 11/14/18 [facility] PAGE 1 RUN TIME: 810 Specimen Inquiry RUN USER: INTERFACE PATIENT: DAISY HAMMER LOC: CHIDI #: [id number] AGE/SX: 58/F ROOM: [facility] RE11/11/18REG DR: Betito Collazo MD : 56 BED: A DIS: 11/13/18 STATUS: DIS Sharla TLOC: SPEC #: [id number] RECD: 11/11/18 STATUS: SOUJer RE #: [id number] CRISTINO: 11/11/18- SUBM DR: Betito Collazo MD ENTERED: 11/11/18 SP TYPE: COLONR NIDIA DR: ORDERED: LEVEL V SURGICA CODES: Z94428 - COLON, NOS PROCEDURES: LEVEL V SURGICA (Incomplete) TISSUES: COLON, NOS - RECTOSIGMOID DIVERTICULITIS CLINICAL HISTORY 58 year old, diverticulitis (wpd) FINAL DIAGNOSIS Designated "rectosigmoid diverticulitis", segmental resection: - diverticular disease with peridiverticular fibrosis - intestinal rings - unremarkable CPT code(s): 85290 pkg/wpd 11/13/18 GROSS DESCRIPTION ANATOMIC SOURCE OFTISSUE [...] and contains unremarkable mucosa and surrounding tissue. Stained Glass Window Designer sections are submitted in A2. The largest [...] Specimen Inquiry RUN USER: INTERFACE SPEC #: [id number] PATIENT: DAISY HAMMER #[id number] (Continued) GROSS DESCRIPTION (Continued) 1.0 cm and containing green-brown fecal material. No discrete perforationor discoloration in those areas are noted. Stained Glass Window Designer sections of the intestine with the diverticula are submitted in A3 - A8. Examination of attached adipose tissue reveals no discrete lymph nodes. Stained Glass Window Designer sections are submitted in A9 - A16. Spiced Bits/wpd 11/11/18 @ 4374 MICROSCOPIC DESCRIPTION The specimen consists of a segment of rectosigmoid colon containing numerous diverticula which extend through the muscularis into the rectosigmoid adipose tissue. Foci of fibrosis are present adjacent to the diverticula. No granulomas, dysplasia or neoplasia are identified. The intestinal rings are unremarkable. abram/wpandreea 11/13/18 Signed Deena Storm 11/13/181920 ENDOF REPORT [id number] 07:10:00 Test Item Value Reference Range Interpretation Comments GLUBED (test code = GLUBED) 180 mg/dL 65-110 H COMPREHENSIVE METABOLIC [id number] 05:48:00 Test Item Value Reference Range Interpretation [...] 106 units/L 46-116 N code = ALKP) [id number] 05:48:00 Test Item Value Reference Range Interpretation Comments MAGNESIUM (test code = MAG) 1.8 mg/dL 1.8-2.4 N CBC W/AUTO [id number] 04:49:00 Test Item Value Reference Range Interpretation [...] REQUIRED (test NORMAL NORMAL code = PLTMR) [id number] 21:57:00 Test Item Value Reference Range Interpretation Comments GLUBED (test code = GLUBED) 278 mg/dL 65-110 H [id number] 17:26:00 Test Item Value Reference Range Interpretation Comments GLUBED (test code = 292 mg/dL 65-110 H Hypoglyc emic Protoco GLUBED) [id number] 12:11:00 Test Item Value Reference Range Interpretation Comments GLUBED (test code = GLUBED) 131 mg/dL 65-110 H [id number] 07:23:00 Test Item Value Reference Range Interpretation Comments GLUBED (test code = GLUBED) 110 mg/dL 65-110 N CHEMISTRY 7 [id number] 05:23:00 Test Item Value Reference Range Interpretation [...] code = CA) 7.8 mg/dL 8.4-10.2 L [id number] 05:23:00 Test Item Value Reference Range Interpretation Comments MAGNESIUM (test code = MAG) 1.8 mg/dL 1.8-2.4 N CBC W/AUTO [id number] 05:19:00 Test Item Value Reference Range Interpretation [...] REQUIRED (test NORMAL NORMAL code = PLTMR) [id number] 22:07:00 Test Item Value Reference Range Interpretation Comments GLUBED (test code = GLUBED) 171 mg/dL 65-110 H [id number] 17:41:00 Test Item Value Reference Range Interpretation Comments GLUBED (test code = GLUBED) 157 mg/dL 65-110 H [id number] 13:26:00 Test Item Value Reference Range Interpretation Comments GLUBED (test code = GLUBED) 154 mg/dL 65-110 H [id number] 06:54:00 Test Item Value Reference Range Interpretation Comments GLUBED (test code = GLUBED) 143 mg/dL 65-110 H CHEMISTRY 7 [id number] 13:07:00 Test Item Value Reference Range Interpretation [...] = CA) 8.5 mg/dL 8.4-10.2 N HGB [id number] 12:51:00 Test Item Value Reference Range Interpretation Comments HEMOGLOBIN (test code = HGB) 13.6 g/dL 10.7-13.9 N HEMATOCRIT (test code = HCT) 40.3 % 32.1-42.1 N
[2021-06-24] MEDS ORDERED: METOCLOPRAMIDE 10 MG/2mL INJ ONE (09:04)
[2021-06-24] MEDS ORDERED: KETOROLAC 30 MG/ML INJ ONE (09:04)
[2021-06-24] MEDS ORDERED: NA CHLORIDE 0.9% 1,000 ML ONE (09:04)
--- NOTE | 2021-06-24 09:26 | RAD REPORT ---
EXAM DESCRIPTION: CT - Head Brain Wo Cont - 06/24/2021 9:13 am CLINICAL HISTORY: PAIN COMPARISON: Head Brain Wo Cont dated 02/11/2020 TECHNIQUE: Axial 5 mm thick images of the head were obtained without IV contrast. All CT scans are performed using dose optimization technique as appropriate and may include automated exposure control or mA/KV adjustment according to patient size. FINDINGS: No intracranial hemorrhage, mass, edema or shift of mid-line structures. No acute infarcti on changes seen. No abnormal extra-axial fluid collections. Atrophy changes are present mild to moder ate for age. Ventricles are in proportion to the amount of volume loss. Chronic ischemic changes are mild. Intracranial findings are similar to the 2019 comparison. Arterial and physiologic calcificatio ns are present. Mastoid air cells and visualized portions of the paranasal sinuses are clear. No acute bony findings. IMPRESSION: Negative non-contrast CT head examination for acute finding. Atrophy and chronic ischemic changes match the 2020 study.
[2021-06-24 09:41] LABS: Hematocrit 40.2 % (36.0-45.0); Lymphocytes % 27.1 % (15.3-44.8); MPV 7.3 fL (7.6-11.3); RBC Red Blood Cell Count 4.54 M/uL (3.86-4.86)
[2021-06-24 09:44] LABS: Albumin 3.4 g/dL (3.4-5.0); Bilirubin Total 0.4 mg/dL (0.2-1.0); Potassium 3.5 mmol/L (3.5-5.1); Protein, Total 7.8 g/dL (6.4-8.2)
--- NOTE | 2021-06-24 10:35 | EDPHYS ---
Physician Documentation [facility] Name: Robyn Carrion Age: 60 yrs Sex: Female : 1960 Arrival Date: 06/24/2021 Time: 08:47 Bed 4 Private MD: Berry Suero F ED Physician Atul Mart HPI: 06/24 10:30 This 60 yrs old Female presents to ER via Ambulatory with complaints of ma2 Headache, Numbness Of Arm. 10:30 60-year-old female, with moderate gradual left-sided headache that has been constant ma2 for 2 days, patient also stated that she has left arm numbness that is been on and off for the last 2 days. Patient stated that she had similar headaches in the past. There is no focal weakness. Had similar headaches in the past. Has nausea, vomited once. No diarrhea. No pain anywhere else. Never had a stroke before.. Historical: - Allergies: 09:01 HYDROCODONE; ll1 09:01 Codeine; ll1 - PMHx: 09:01 fernando esophageal disease; cricopharyngeal spasm; Diabetes - NIDDM; Hernia; High ll1 Cholesterol; Pancreatitis; vericose vein; Hypertensive disorder; - PSHx: 09:01 Cholecystectomy; colon removal; ercp; hernia repair; hysterectomy; ll1 - Immunization history:: Client reports receiving the 2nd dose of the Covid vaccine. - Social history:: Smoking status: Patient denies any tobacco usage or history of. - Family history:: not pertinent. ROS: 10:30 Constitutional: Negative for fever, chills, and weight loss. ma2 10:30 All other systems are negative. Exam: 10:30 Constitutional: This is a well developed, well nourished patient who is awake, alert, ma2 and in no acute distress. Head/Face: Normocephalic, atraumatic. Eyes: Pupils equal round and reactive to light, extra-ocular motions intact. Lids and lashes normal. Conjunctiva and sclera are non-icteric and not injected. Cornea within normal limits. Periorbital areas with no swelling, redness, or edema. ENT: Nares patent. No nasal discharge, no septal abnormalities noted. Tympanic membranes are normal and external auditory canals are clear. Oropharynx with no redness, swelling, or masses, exudates, or evidence of obstruction, uvula midline. Mucous membranes moist. Neck: Trachea midline, no thyromegaly or masses palpated, and no cervical lymphadenopathy. Supple, full range of motion without nuchal rigidity, or vertebral point tenderness. No Meningismus. Chest/axilla: Normal chest wall appearance and motion. Nontender with no deformity. No lesions are appreciated. Cardiovascular: Regular rate and rhythm with a normal S1 and S2. No gallops, murmurs, or rubs. Normal PMI, no JVD. No pulse deficits. Respiratory: Lungs have equal breath sounds bilaterally, clear to auscultation and percussion. No rales, rhonchi or wheezes noted. No increased work of breathing, no retractions or nasal flaring. Abdomen/GI: Soft, non-tender, with normal bowel sounds. No distension or tympany. No guarding or rebound. No evidence of tenderness throughout. Back: No spinal tenderness. No costovertebral tenderness. Full range of motion. Skin: Warm, dry with normal turgor. Normal color with no rashes, no lesions, and no evidence of cellulitis. MS/ Extremity: Pulses equal, no cyanosis. Neurovascular intact. Full, normal range of motion. Neuro: Awake and alert, GCS 15, oriented to person, place, time, and situation. Cranial nerves II-XII grossly intact. Motor strength 5/5 in all extremities. Sensory grossly intact. Cerebellar exam normal. Normal gait. Vital Signs: 09:02 BP 159 / 86; Pulse 88; Resp 16; Temp 98.2; Pulse Ox 100% on R/A; Weight 69.85 kg; ll1 Height 5 ft. 4 in. (162.56 cm); Pain 7/10; 10:26 BP 138 / 74; Pulse 80; Resp 16; Pulse Ox 100% ; vg1 09:02 Body Mass Index 26.43 (69.85 kg, 162.56 cm) ll1 MDM: 08:50 Patient medically screened. ma2 10:30 Differential diagnosis: Differential diagnoses include TIA, versus gradual headache ma2 consistent with migraine versus gastroenteritis given the vomiting and nausea. Versus tension headache. Since patient had left arm numbness, I recommend admission for TIA work-up. And further management of her headache. However patient states at this time that her headache has resolved after we gave her headache cocktail she does not want to be admitted. She thinks that she has been stressed out recently and which may have aggravated her migraine. She said that this feels like her prior migraine. She would like to be discharged I explained risk, of having TIA. Patient states she will return to ER for any worsening of symptoms. Patient also stated that her left numbness has resolved. 10:30 Data reviewed: vital signs, nurses notes, EMS record, [facility] records. Counseling: atif I had a detailed discussion with the patient and/or guardian regarding: the historical points, exam findings, and any diagnostic results supporting the discharge/admit diagnosis, the presence of at least one elevated blood pressure reading (>120/80) during this emergency department visit, the need for outpatient follow up. Response to treatment: the patient's symptoms have markedly improved after treatment. 06/24 08:57 Order name: CBC with Diff; Complete Time: 09:51 06/24 08:57 Order name: CMP; Complete Time: 09:51 06/24 08:51 Order name: CT Head Brain wo Cont; Complete Time: 09:51 06/24 08:57 Order name: IV Saline Lock; Complete Time: 09:09 06/24 08:57 Order name: Labs collected and sent; Complete Time: 09: Administered Medications: 09:08 Drug: NS 0.9% 1000 ml Route: IV; Rate: 1 bolus; Site: left forearm; aa5 10:25 Follow up: IV Status: Completed infusion; IV Intake: 1000ml vg1 09:08 Drug: Reglan (metoCLOPramide) 10 mg Route: IVP; Site: left forearm; aa5 10:25 Follow up: Response: No adverse reaction; Nausea is decreased vg1 09:08 Drug: Ketorolac 30 mg Route: IVP; Site: left forearm; aa5 10:25 Follow up: Response: No adverse reaction; Pain is decreased vg1 Disposition Summary: 06/24/21 10:34 Discharge Ordered Location: Home ma2 Condition: Stable ma2 Diagnosis - Headache ma2 Followup: ma2 - With: Private Physician - When: Tomorrow - Reason: If symptoms return, Continuance of care Discharge Instructions: - Discharge Summary Sheet ma2 - Migraine Headache ma2 Forms: - Medication Reconciliation Form ma2 - Thank You Letter ma2 - Antibiotic Education ma2 - Prescription Opioid Use ma2 Prescriptions: - Reglan 10 mg Oral Tablet - take 1 tablet by ORAL route every 6 hours . take 30 minutes before meals and at ma2 bedtime; 100 tablet; Refills: 0, Product Selection Permitted - Zofran 4 mg Oral Tablet - take 1 tablet by ORAL route every 12 hours As needed; 20 tablet; Refills: 0, ma2 Product Selection Permitted - Diclofenac Sodium 75 mg Oral Tablet Sustained Release - take 1 tablet by ORAL route 2 times per day; 30 tablet; Refills: 0, Product ma2 Selection Permitted Signatures: Dispatcher [employer] Dagmar Milian RN RN aa5 Atul Mart MD MD ma2 Hamlet Cochran RN RN ll1 Shakira Childers RN vg1
--- NOTE | 2021-06-24 10:35 | ER ---
Nurse's Notes [facility] Name: Robyn Carrion Age: 60 yrs Sex: Female : 1960 Arrival Date: 06/24/2021 Time: 08:47 Bed 4 Private MD: Berry Suero F Diagnosis: Headache Presentation: 06/24 09:02 Chief complaint: Patient states: BALLESTEROS, N/V, L arm tingling for 2 days. No fever or cough. ll1 Coronavirus screen: Vaccine status: Patient reports receiving the 2nd dose of the covid vaccine. Client denies travel out of the [place] in the last 14 days. fatigue, headache, nausea, vomiting. Client presents with at least one sign or symptom that may indicate coronavirus-19. Standard/surgical mask placed on the client. Ebola Screen: Patient denies travel to an Ebola-affected area in the 21 days before illness onset. Initial Sepsis Screen: Does the patient meet any 2 criteria? No. Patient's initial sepsis screen is negative. Does the patient have a suspected source of infection? No. Patient's initial sepsis screen is negative. Risk Assessment: Do you want to hurt yourself or someone else? Patient reports no desire to harm self or others. Onset of symptoms was June 23, 2021. 09:02 Method Of Arrival: Ambulatory ll1 09:02 Acuity: DARA 3 ll1 Triage Assessment: 09:04 Headache History: Denies prior headaches. General: Appears uncomfortable, Behavior is ll1 calm, cooperative, appropriate for age. Pain: Complains of pain in head Pain currently is 7 out of 10 on a pain scale. Pain began 1 day ago. Also complains of nausea. Neuro: Reports headache numbness paresthesias. Musculoskeletal: Reports numbness in left arm. Historical: - Allergies: 09:01 HYDROCODONE; ll1 09:01 Codeine; ll1 - PMHx: 09:01 fernando esophageal disease; cricopharyngeal spasm; Diabetes - NIDDM; Hernia; High ll1 Cholesterol; Pancreatitis; vericose vein; Hypertensive disorder; - PSHx: 09:01 Cholecystectomy; colon removal; ercp; hernia repair; hysterectomy; ll1 - Immunization history:: Client reports receiving the 2nd dose of the Covid vaccine. - Social history:: Smoking status: Patient denies any tobacco usage or history of. - Family history:: not pertinent. Screenin:19 Abuse screen: Denies threats or abuse. Nutritional screening: No deficits noted. vg1 Tuberculosis screening: No symptoms or risk factors identified. Fall Risk No fall in past 12 months (0 pts). No secondary diagnosis (0 pts). IV access (20 points). Ambulatory Aid- None/Bed Rest/Nurse Assist (0 pts). Gait- Normal/Bed Rest/Wheelchair (0 pts) Mental Status- Oriented to own ability (0 pts). Total Bonilla Fall Scale indicates No Risk (0-24 pts). Assessment: 09:08 Reassessment: Patient is alert, oriented x 3, equal unlabored respirations, skin aa5 warm/dry/pink. 09:08 GI: Reports nausea. aa5 09:18 General: Appears in no apparent distress. uncomfortable, Behavior is calm, cooperative. vg1 Pain: Complains of pain in head Pain currently is 6 out of 10 on a pain scale. Pain began 2-3 days ago. Neuro: Level of Consciousness is awake, alert, obeys commands, Oriented to person, place, time, situation, Reports headache Denies blurred vision dizziness, photophobia. Cardiovascular: Patient's skin is warm and dry. Respiratory: Airway is patent Respiratory effort is even, unlabored. GI: Reports nausea, vomiting. : No signs and/or symptoms were reported regarding the genitourinary system. EENT: No signs and/or symptoms were reported regarding the EENT system. Derm: Skin is intact, is healthy with good turgor. Musculoskeletal: Circulation, motion, and sensation intact. 10:25 Reassessment: Patient appears in no apparent distress at this time. Patient and/or vg1 family updated on plan of care and expected duration. Pain level reassessed. Patient is alert, oriented x 3, equal unlabored respirations, skin warm/dry/pink. Rates pain 4/10 Patient states feeling better. Vital Signs: 09:02 BP 159 / 86; Pulse 88; Resp 16; Temp 98.2; Pulse Ox 100% on R/A; Weight 69.85 kg; ll1 Height 5 ft. 4 in. (162.56 cm); Pain 7/10; 10:26 BP 138 / 74; Pulse 80; Resp 16; Pulse Ox 100% ; vg1 09:02 Body Mass Index 26.43 (69.85 kg, 162.56 cm) ll1 ED Course: 08:47 Patient arrived in ED. as 08:47 Berry Suero MD is Private Physician. as 08:50 Atul Mart MD is Attending Physician. ma2 08:53 Arm band placed on Patient placed in an exam room, on a stretcher. ll1 09:04 Triage completed. ll1 09:08 Initial lab(s) drawn, by ED staff, sent to lab. Inserted saline lock: 20 gauge in left aa5 forearm, using aseptic technique. Blood collected. Inserted by KISHAN Golden. 09:11 Shakira Childers, RN is Primary Nurse. vg1 09:11 CT Head Brain wo Cont In Process Unspecified. EDMS 09:19 Patient has correct armband on for positive identification. Bed in low position. Call vg1 light in reach. Side rails up X 1. 09:19 No provider procedures requiring assistance completed. vg1 10:45 IV discontinued, intact, bleeding controlled, No redness/swelling at site. Pressure vg1 dressing applied. Administered Medications: 09:08 Drug: NS 0.9% 1000 ml Route: IV; Rate: 1 bolus; Site: left forearm; aa5 10:25 Follow up: IV Status: Completed infusion; IV Intake: 1000ml vg1 09:08 Drug: Reglan (metoCLOPramide) 10 mg Route: IVP; Site: left forearm; aa5 10:25 Follow up: Response: No adverse reaction; Nausea is decreased vg1 09:08 Drug: Ketorolac 30 mg Route: IVP; Site: left forearm; aa5 10:25 Follow up: Response: No adverse reaction; Pain is decreased vg1 Intake: 10:25 IV: 1000ml; Total: 1000ml. vg1 Outcome: 10:34 Discharge ordered by . ma2 10:45 Discharged to home ambulatory. vg1 10:45 Condition: good 10:45 Discharge instructions given to patient, Instructed on discharge instructions, follow up and referral plans. medication usage, Demonstrated understanding of instructions, follow-up care, medications, Prescriptions given X 3. 10:45 Patient left the ED. vg1 Signatures: Dispatcher [employer] Salma De La Torre Eric em1 Dagmar Merino, RN RN aa5 Atul Mart MD MD ma2 Shakira Childers RN RN vg1 Hamlet Cochran, HAIDER RN ll1 Corrections: (The following items were deleted from the chart) : Initial lab(s) drawn, by me, sent to lab. em1 aa5 : Inserted saline lock: 20 gauge in left forearm, using aseptic technique. Blood aa5 collected. em1
[2021-06-24 10:57] VITALS: TEMP 98.2; O2SAT 100
[2021-06-24 10:59] VITALS: BP 138/74
== END 2021-06-24 10:45 | disposition home or self-care (01) ==
LOC: ER 08:47
DX: R51.9 Headache, unspecified (principal); I10 Essential (primary) hypertension; E11.9 Type 2 diabetes mellitus without complications; E78.00 Pure hypercholesterolemia, unspecified; Z88.5 Allergy status to narcotic agent
CPT/HCPCS: 96361; 85025; 36415; 80053; 70450; 96375; 96374; 99284; J2765; J7030

== ENCOUNTER 2021-08-09 16:34 | Emergency (ER) | payer OTHER ==
--- OUTSIDE RECORDS SUMMARY | 2021-08-09 16:37 | XMS REPORT | Continuity of Care Document ---
:1960 Author Organization [facility] t Address [address] [place] [address] Care Team Providers Name Role Phone Pio EPPS, [place] Primary Care Physician RENY OGLESBY Attending Clinician Unavailable RENY Attending Clinician Unavailable MARISELA Attending Clinician Unavailable FREDERICK Attending Clinician Unavailable RENY OGLESBY Admitting Clinician Unavailable Payers Payer Name Policy Type Policy Number Effective Date Expiration Date S mickey MEDICARE A B [id number] 2001 00:00:00 [place]ICAID [place] [id number] 2017 00:00:00 MEDICARE PART A [id number] \\T\\ B - MEDICARE [facility]-MEDICAID - [id number] MEDICAID Problems Condition Condition Condition Status Onset Resolution Last Treating Co mments Source Name Details Category Date Date Treatment Clinician Date Biliary Biliary Disease Active [facility] No known No known Disease Metho di active active st problems problems Hospit a l Hyperlipid Hyperlipid [facility] Hypertensi Problem Active [facility] [place] [facility] Diabetes Diabetes Problem Active Unive rs ity [facility] Follow up Follow up Problem [facility] Allergies, Adverse Reactions, Alerts Allergy Allergy Status Severity Reaction(s) Onset Inactive Treating Comm ents Source Name Type Date Date Clinician Codeine Drug Active Nausea And [facility] CODEINE Allergy Active Med N\\T\\V [facility] - [facility] Medical 00 [place] Hydrocod Drug Active Nausea And As per [facility] one-Acet Allergy Vomiting, 5-08 patient, Romina kes - aminophe Other (See 00:00: " it Medi sarah n Comments) 00 wears on Cente r my stomach" HYDROCOD Allergy Active Med N\\T\\V [facility] ONE-ACET 5-08 [facility] - AMINOPHE 00:00: Medical N 00 [place] hydrocod DA Active SV [facility] [place] Hydrocod Propensi Active Method i one ty to 7 st adverse 00:00: Hospita reaction 00 l s to drug Family History Family Member Diagnosis Comments Start Date Stop Date Source Natural [facility] mother [facility] Natural mother [facility] Natural father Diabetes [facility] Natural father [facility] Unknown Family Family [...] [facility] History SDOH [facility] Alcohol Std Drinks Hospit al History SDOH [facility] Alcohol Binge [facility] Alcohol Comment 2019-11-17 2019-11-17 [...] Tobacco use and 2018-12-10 2018-12-10 Never used [facility] exposure 00:00:00 00:00:00 Hospital Alcohol intake 2018-12-10 2018-12-10 Lifetime [facility] 00:00:00 00:00:00 non-drinker Hospital (finding) History SDOH 2018-11-01 2018-11-01 1 [facility] Alcohol Frequency 00:00:00 00:00:00 Hospita l Sex Ass[birth year] At [birth year] [facility] 00:00:00 00:00:00 Hospital Smoking Status Start Date Stop Date Source Former smoker 2019-08-15 00:00:00 2019-08-15 00:00:[address] [facility] [place] [facility] Never smoker [facility] Hospit [facility] Medications Ordered Filled Start Stop [...] daily as needed . lipase/prot 2020-0 Yes [id number] Take [facility] ease/amylas 8-12 [id number] 36,000 [facility] - e (CREON 13:03: 3D [...] Height 2018-05-24 10:25:00 62 [in_us] Universi ty [facility] Phys[facility] s Weight 2018-05-24 10:25:00 154.9 [lb_av] [facility] ity [facility] Physician s Body Mass Index 2018-05-24 10:25:00 28.33 kg/m2 Unive rsity of Calculated [place] Physician s BP Systolic 2018-04-26 10:21:00 127 mm[Hg] Universi ty [facility] Physician s BP Diastolic 2018-04-26 10:21:00 76 mm[Hg] Universi ty [facility] Phys[facility] Height 2018-04-26 10:21:00 62 [facility] Weight 2018-04-26 10:21:00 155.6 [lb_av] [facility] [place] [facility] Body Mass Index 2018-04-26 10:21:00 28.46 kg/m2 Unive rsity of [facility] [place] Physician s Temperature 2018-04-26 10:21:00 97 [degF] Universi ty [facility] Physician s Heart Rate 2018-04-26 10:21:00 73 /min [facility] Physician s Procedures This patient has [...] Test 00:00:00 (procedure) [code = Medical Center 42795068] Future Scheduled 2002-10-[address] [facility] - Test 00:00:00 WELLNESS (YEAR 2 or Medical Center FIRST YEAR if no IPPE) [code = MEDICARE ANNUAL WELLNESS (YEAR 2 or FIRST YEAR if no IPPE)] Future Scheduled 1979-09-[address] [facility] - Test 00:00:00 malignant neoplasm of Medica l Center cervix (procedure) [code = 040010354] Future Scheduled 1977 DTAP/TDAP/TD VACCINES CH I [...] Medica l Center breast (procedure) [code = 520306030] Future Scheduled [address] [facility] - Test 00:00:00 malignant neoplasm of [facility]ica [facility] Center colon (procedure) [code = 649738813] Future Scheduled DIABETES: RETINAL EYE [facility] Test (procedure) [code = 865050958] Future Scheduled [facility] Test malignant neoplasm of cervix (procedure) [code = 729333573] Future Scheduled BREAST CANCER [facility] Test SCREENING [code = BREAST CANCER [...] Clinicians Facility Department ID 2021-01-11 Outpatient OTAN, [facility] Surgery [id number] [facility] 23:34:53 [facility] 2021-01-11 Outpatient OTAN, [facility] Surgery [id number] SLE 20:32:36 [facility] 2021-01-11 Outpatient OTAN, [facility] Surgery [id number] [facility] 13:26:30 [facility] 2021-02-02 2021-02-02 Outpatient MAIASHLEY, [facility] [id number] [facility] 10:22:11 10:28:13 [facility] Gamal e of Medicin e 2021-01-10 2021-01-10 Outpatient [facility] [id number] [facility] 12:56:42 12:56:42 Gamal e of Medicin e 2019-11-17 2019-11-17 Outpatient [facility] [id number] SLE 00:00:00 00:00:00 2019-08-15 2019-08-15 Outpatient EL [facility] SLE [id number] SLE 00:00:00 00:00:00 2018-05-24 2018-05-24 RAFAT [place] [id number] Univers 10:30:00 10:30:00 jus SOLIS, Surgery nelson ANTONIO D.O. [facility] WILL, Physici D.O. ans 2018-04-26 2018-04-26 Appointmen MARISELA, UTP UTP [id number] Univers 10:15:00 10:15:00 t; nelson SOLIS D.O. [place] WILL, Physici D.O. ans 2018-04-19 2018-04-19 Appointlindsey MARISELA, UTP UTP [id number] Univers 10:00:00 10:00:00 t; nelson SOLIS D.O. [place] WILL, Physici D.O. ans 2018-03-27 2018-03-[facility] MARISELA, UTP UTP [id number] Univers 10:30:00 10:30:00 t; nelson SOLIS D.O. [place] WILL, Physici D.O. ans 2018-03-22 2018-03-22 Appointlindsey ANTONIO, UTP UTP [id number] Univers 10:30:00 10:30:00 t; nelson SOLIS D.O. [place] WILL, Physici D.O. ans 2018-03-06 2018-03-06 [facility] FREDERICK, RAFAT UTP [id number] Univers 08:30:00 08:30:00 t; CYRIL MACK M.D. i ty annmarie NAM M.D. [place] [facility] 2018-02-14 2018-02-14 Appointlindsey MARISELA, UTP UTP [id number] Univers 08:15:00 08:15:00 t; nelson SOLIS D.O. [place] WILL, Physici D.O. ans 2018-01-11 2018-01-11 [facility] MARISELA, UTP UTP [id number] Univers 10:30:00 10:30:00 t; nelson SOLIS D.O. [place] WILL, Physici D.O. [facility] Results Test Description Test Time Test Comments Results Result Comments Source HEMOGLOBIN A1C 2019-11-19 09:28:00 Test Item Value Reference Range Interpretation Comme nts HEMOGLOBIN A1C (MAN) (test code = 368) 8.1 % 4.3-6.1 H POCT-GLUCOSE [id number] 07:44:00 Test Item Value Reference Range Interpretation Comments POC-GLUCOSE METER 130 mg/dL 70-110 H : TESTED A T [facility] 6720 (BEAKER) (test code = TERRI Hirsch [place], 1538) 78134: Geographic Information Systems Engineer/Techni wendy ID = [id number] for KRISSY FINNEGAN COMPREHENSIVE METABOLIC [id number] 06:55:00 Test Item Value Reference Range Interpretation [...] S NOT APPLICABLE FOR DIALYSIS PATIEN TS. Geographic Information Systems Engineer ID - PIAYA LCBC W/PLT COUNT & AUTO [id number] 05:55:00 Test Item Value Reference Range Interpretation [...] PERCENT (BEAKER) (test code = 2801) POCT-GLUCOSE [id number] 21:17:00 Test Item Value Reference Range Interpretation Comments POC-GLUCOSE METER 255 mg/dL 70-110 H : TESTED A T [facility] 6720 (BEAKER) (test code = TERRI Hirsch [facility], 1538) 28126: Geographic Information Systems Engineer/Techni wendy ID = [id number] for ABHILASH MARTI [id number] 11:22:39INTRA OP IMAGINGReason for exam:->abnormal imaging Fluoroscopic unit utilized for a procedure performed in the OR. No interpretation was requested. Refer to the operative report for findings. Refer to PACS for patient radiation dose information.POCT-GLUCOSE METER 2019-11-18 07:45:00 Test Item Value Reference Range Interpretation Comments POC-GLUCOSE METER 155 mg/dL 70-110 H : TESTED A T [facility] 6720 (BEAKER) (test code = TERRI Hirsch [facility], 1538) 36784: Geographic Information Systems Engineer/Techni wendy ID = [id number] for ED WARDS, KATIE TISSUE [id number] 09:36:00Surgical Pathology Report Case: [id number] Authorizing Provider: Vinnie Oglesby Collected: 08/26/2019 12:43 PM MD Beatrice Ordering Location: [facility] Endoscopy Received: 08/26/2019 01:56 PM Services Pathologist: Isac Cummins MD Specimen: Biopsy, Gastric, gastric polyp A. STOMACH, POLYP, BIOPSY: - ANTRAL MUCOSA WITH POLYPOID FOVEOLAR HYPERPLASIA - NEGATIVE FOR HELICOBACTER PYLORI ORGANISMS BY WARTHIN STARRY STAIN - NEGATIVE FOR INTESTINAL METAPLASIA, DYSPLASIA, MALIGNANCY SigningPathologist Direct Phone Line: [phone] signed by Isac Cummins MD on 08/27/2019 at 9:36 [id number]: upper endoscopy, biopsyPre and postop diagnosis: acute [...] evaluated Immunohistochemistry technical testing was performed at [facility], Pathology Laboratory where it was [...] to perform high complexity clinical laboratory testing.POCT-GLUCOSE [id number] 13:26:00 Test Item Value Reference Range Interpretation Comments POC-GLUCOSE METER 122 mg/dL 70-110 H : TESTED A T [facility] 6720 (Vopium) (test code = [facility], 1538) 89720: Geographic Information Systems Engineer/Techni wendy ID = [id number] for Ilda Bailey POCT-GLUCOSE [id number] 11:40:00 Test Item Value Reference Range Interpretation Comments POC-GLUCOSE METER 137 mg/dL 70-110 H : TESTED A T [facility] 6720 (Vopium) (test code = [employer] Casengo [facility], 1538) 68080: Geographic Information Systems Engineer/Techni wendy ID = [id number] for KATIE CANTU COLON SEGMENT RESEC.NOT [id number] 19:21:00 RUN DATE: 11/14/18 [facility] PAGE 1 RUN TIME: 810 Specimen Inquiry RUN USER: INTERFACE PATIENT: DAISY HAMMER LOC: CHIDI #: [id number] AGE/SX: 58/F ROOM: [facility], 1928[facility]1983 RE11/11/18REG DR: Betito Collazo MD : 56 BED: A DIS: 11/13/18 STATUS: DIS Sharla TLOC: SPEC #: [id number] RECD: 11/11/18 STATUS: SOUJer RE #: [id number] CRISTINO: 11/11/18- SUBM DR: Betito Collazo MD ENTERED: 11/11/18 SP TYPE: COLONR NIDIA DR: ORDERED: LEVEL V SURGICA CODES: A64834 - COLON, NOS PROCEDURES: LEVEL V SURGICA (Incomplete) TISSUES: COLON, NOS - RECTOSIGMOID DIVERTICULITIS CLINICAL HISTORY 58 year old, diverticulitis (wpd) FINAL DIAGNOSIS Designated "rectosigmoid diverticulitis", segmental resection: - diverticular disease with peridiverticular fibrosis - intestinal rings - unremarkable CPT code(s): 01566 pkg/wpd 11/13/18 GROSS DESCRIPTION ANATOMIC SOURCE OFTISSUE [...] and contains unremarkable mucosa and surrounding tissue. Embroidery Machine Operator sections are submitted in A2. [...] Specimen Inquiry RUN USER: INTERFACE SPEC #: [id number] PATIENT: DAISY HAMMER #[id number] (Continued) GROSS DESCRIPTION (Continued) 1.0 cm and containing green-brown fecal material. No discrete perforationor discoloration in those areas are noted. Embroidery Machine Operator sections of the intestine with the diverticula are submitted in A3 - A8. Examination of attached adipose tissue reveals no discrete lymph nodes. Embroidery Machine Operator sections are submitted in A9 - A16. 500px/wpd 11/11/18 @ 3738 MICROSCOPIC DESCRIPTION The specimen consists of a segment of rectosigmoid colon containing numerous diverticula which extend through the muscularis into the rectosigmoid adipose tissue. Foci of fibrosis are present adjacent to the diverticula. No granulomas, dysplasia or neoplasia are identified. The intestinal rings are unremarkable. abram/wpandreea 11/13/18 Signed Deena Storm 11/13/181920 ENDOF REPORT [id number] 07:10:00 Test Item Value Reference Range Interpretation Comments GLUBED (test code = GLUBED) 180 mg/dL 65-110 H COMPREHENSIVE METABOLIC [id number] 05:48:00 Test Item Value Reference Range Interpretation [...] 106 units/L 46-116 N code = ALKP) [id number] 05:48:00 Test Item Value Reference Range Interpretation Comments MAGNESIUM (test code = MAG) 1.8 mg/dL 1.8-2.4 N CBC W/AUTO [id number] 04:49:00 Test Item Value Reference Range Interpretation [...] REQUIRED (test NORMAL NORMAL code = PLTMR) [id number] 21:57:00 Test Item Value Reference Range Interpretation Comments GLUBED (test code = GLUBED) 278 mg/dL 65-110 H [id number] 17:26:00 Test Item Value Reference Range Interpretation Comments GLUBED (test code = 292 mg/dL 65-110 H Hypoglyc emic Protoco GLUBED) [id number] 12:11:00 Test Item Value Reference Range Interpretation Comments GLUBED (test code = GLUBED) 131 mg/dL 65-110 H [id number] 07:23:00 Test Item Value Reference Range Interpretation Comments GLUBED (test code = GLUBED) 110 mg/dL 65-110 N CHEMISTRY 7 [id number] 05:23:00 Test Item Value Reference Range Interpretation [...] code = CA) 7.8 mg/dL 8.4-10.2 L [id number] 05:23:00 Test Item Value Reference Range Interpretation Comments MAGNESIUM (test code = MAG) 1.8 mg/dL 1.8-2.4 N CBC W/AUTO [id number] 05:19:00 Test Item Value Reference Range Interpretation [...] REQUIRED (test NORMAL NORMAL code = PLTMR) [id number] 22:07:00 Test Item Value Reference Range Interpretation Comments GLUBED (test code = GLUBED) 171 mg/dL 65-110 H [id number] 17:41:00 Test Item Value Reference Range Interpretation Comments GLUBED (test code = GLUBED) 157 mg/dL 65-110 H [id number] 13:26:00 Test Item Value Reference Range Interpretation Comments GLUBED (test code = GLUBED) 154 mg/dL 65-110 H [id number] 06:54:00 Test Item Value Reference Range Interpretation Comments GLUBED (test code = GLUBED) 143 mg/dL 65-110 H CHEMISTRY 7 [id number] 13:07:00 Test Item Value Reference Range Interpretation [...] = CA) 8.5 mg/dL 8.4-10.2 N HGB [id number] 12:51:00 Test Item Value Reference Range Interpretation Comments HEMOGLOBIN (test code = HGB) 13.6 g/dL 10.7-13.9 N HEMATOCRIT (test code = HCT) 40.3 % 32.1-42.1 N
--- NOTE | 2021-08-09 18:02 | ER ---
Nurse's Notes [facility] Name: Robyn Carrion Age: 60 yrs Sex: Female : 1960 Arrival Date: 08/09/2021 Time: 16:36 Bed 10 Private MD: Berry Suero F Diagnosis: Burn of second degree of right forearm, initial encounter Presentation: 08/09 16:42 Chief complaint: Patient states: R FA burned with hot pressor at work yesterday. Site ll1 is red now. R hand pointer finger bruised swollen now. No fever. Coronavirus screen: Vaccine status: Patient reports receiving the 2nd dose of the covid vaccine. Client denies travel out of the [place] in the last 14 days. At this time, the client does not indicate any symptoms associated with coronavirus-19. Ebola Screen: Patient denies travel to an Ebola-affected area in the 21 days before illness onset. Initial Sepsis Screen: Does the patient meet any 2 criteria? No. Patient's initial sepsis screen is negative. Does the patient have a suspected source of infection? Yes: Skin breakdown/wound. Risk Assessment: Do you want to hurt yourself or someone else? Patient reports no desire to harm self or others. Onset of symptoms was August 08, 2021. 16:42 Method Of Arrival: Ambulatory ll1 16:42 Acuity: DARA 4 ll1 Triage Assessment: 16:43 General: Appears uncomfortable, Behavior is cooperative, appropriate for age. Pain: ss Complains of pain in left arm. Respiratory: Airway is patent. Derm: Reports burn R FA. Injury Description: Historical: - Allergies: 16:41 Codeine; ll1 16:41 HYDROCODONE; ll1 - PMHx: 16:41 fernando esophageal disease; cricopharyngeal spasm; Diabetes - NIDDM; Hernia; High ll1 Cholesterol; Hypertensive disorder; Pancreatitis; vericose vein; - PSHx: 16:41 Cholecystectomy; ercp; colon removal; hernia repair; hysterectomy; bladder prolapse SX; ll1 - Immunization history:: Client reports receiving the 2nd dose of the Covid vaccine, Flu vaccine status is unknown. - Social history:: Smoking status: Patient denies any tobacco usage or history of. Screenin:20 Abuse screen: Denies threats or abuse. Denies injuries from another. Nutritional ld1 screening: No deficits noted. Tuberculosis screening: No symptoms or risk factors identified. Fall Risk None identified. Assessment: 18:20 Reassessment: See triage assessment. ld1 Vital Signs: 16:42 BP 132 / 90; Pulse 92; Resp 16; Temp 98.0; Pulse Ox 97% ; Weight 69.85 kg; Height 5 ft. ll1 4 in. (162.56 cm); Pain 7/10; 18:20 BP 129 / 86; Pulse 84; Resp 17; Pulse Ox 99% on R/A; Pain 0/10; ld1 16:42 Body Mass Index 26.43 (69.85 kg, 162.56 cm) ll1 ED Course: 16:36 Patient arrived in ED. am2 16:37 Berry Suero MD is Private Physician. am2 16:44 Triage completed. ll1 16:44 Arm band placed on. ll1 17:49 Patient placed in an exam room, on a stretcher. ss 17:50 Selena Jung RN is Primary Nurse. ld1 17:51 Guillaume Saavedra NP is PHCP. pm1 17:51 Antony Ely MD is Attending Physician. pm1 18:20 Patient has correct armband on for positive identification. Placed in gown. Bed in low ld1 position. Call light in reach. Side rails up X2. marker machine attendant on. Pulse ox on. NIBP on. Door closed. Noise minimized. Warm blanket given. 18:20 No provider procedures requiring assistance completed. Patient did not have IV access ld1 during this emergency room visit. Administered Medications: 18:14 Drug: Tetanus-Diphtheria Toxoid Adult 0.5 ml {Alignment Specialist: [employer]. Exp: ld1 06/18/2023. Lot #: [id number]. } Route: IM; Site: left deltoid; 18:15 Follow up: Response: No adverse reaction ld1 Outcome: 18:01 Discharge ordered by . pm1 18:20 Discharged to home ambulatory. ld1 18:20 Condition: stable 18:20 Discharge instructions given to patient, Instructed on discharge instructions, follow up and referral plans. medication usage, Demonstrated understanding of instructions, follow-up care, medications, Prescriptions given X 1. 18:21 Patient left the ED. ld1 Signatures: Cande Gomez RN RN Guillaume Saavedra, RETAIL PROJECT MERCHANDISER RETAIL PROJECT MERCHANDISER pm1 Harriet Mcgee am2 Hamlet Cochran, RN RN ll1 Selena Jung, RN RN ld1
--- NOTE | 2021-08-09 18:02 | EDPHYS ---
Physician Documentation [facility] Name: Robyn Carrion Age: 60 yrs Sex: Female : 1960 Arrival Date: 08/09/2021 Time: 16:36 Bed 10 Private MD: Berry Suero F ED Physician Antony Ely HPI: 08/09 17:59 This 60 yrs old Female presents to ER via Ambulatory with complaints of finger pm1 problem, Arm Burn. 17:59 The patient presents with a burn as a result of a hot surface, iron press, at work, is pm1 located on the dorsal aspect of right forearm. Onset: The symptoms/episode began/occurred yesterday. Burn type and severity: 2nd degree: approximately 0.125% total body surface area of second degree injury, of the dorsal aspect of right forearm. Associated signs and symptoms: none. The patient has not experienced similar symptoms in the past. The patient has not recently seen a physician. Patient is also presenting with swelling to right index finger. Patient recently started working full-time at the [employer] using the pressor with repetitive motion to right hand. Burn to right forearm is 2nd degree about the size of a half dollar. Historical: - Allergies: 16:41 Codeine; ll1 16:41 HYDROCODONE; ll1 - PMHx: 16:41 fernando esophageal disease; cricopharyngeal spasm; Diabetes - NIDDM; Hernia; High ll1 Cholesterol; Hypertensive disorder; Pancreatitis; vericose vein; - PSHx: 16:41 Cholecystectomy; ercp; colon removal; hernia repair; hysterectomy; bladder prolapse SX; ll1 - Immunization history:: Client reports receiving the 2nd dose of the Covid vaccine, Flu vaccine status is unknown. - Social history:: Smoking status: Patient denies any tobacco usage or history of. ROS: 17:59 Constitutional: Negative for fever, chills, and weight loss, Cardiovascular: Negative pm1 for chest pain, palpitations, and edema, Respiratory: Negative for shortness of breath, cough, wheezing, and pleuritic chest pain. 17:59 Neuro: Negative for headache, weakness, numbness, tingling, and seizure. 17:59 MS/extremity: Positive for pain, swelling, of the Right index finger. 17:59 Skin: Positive for burn, of the dorsal aspect of right forearm. 17:59 All other systems are negative. Exam: 17:59 Constitutional: This is a well developed, well nourished patient who is awake, alert, pm1 and in no acute distress. Head/Face: Normocephalic, atraumatic. 17:59 Cardiovascular: Exam negative for acute changes, Rate: normal, Rhythm: regular, Pulses: no pulse deficits are appreciated. 17:59 Respiratory: Exam negative for acute changes, respiratory distress, shortness of breath. 17:59 Musculoskeletal/extremity: Extremities: grossly normal except: noted in the Right index finger: Mild swelling present to right index finger, calloused skin along the whole lateral aspect of right index finger. Small contusion present to distal tip of right index finger, There is no evidence of Erythema, cellulitis, abscess, decreased range of motion, ROM: Active full range of motion intact to right index finger, the right hand Sensation intact. 17:59 Skin: Appearance: normal except for affected area, injury, burn(s), 2nd degree burn injury covers approximately 0.125% of the total body surface area, and is located on the dorsal aspect of right forearm. 17:59 Neuro: Exam negative for acute changes, Orientation: is normal, Mentation: is normal, Motor: is normal, moves all fours. Vital Signs: 16:42 BP 132 / 90; Pulse 92; Resp 16; Temp 98.0; Pulse Ox 97% ; Weight 69.85 kg; Height 5 ft. ll1 4 in. (162.56 cm); Pain 7/10; 18:20 BP 129 / 86; Pulse 84; Resp 17; Pulse Ox 99% on R/A; Pain 0/10; ld1 16:42 Body Mass Index 26.43 (69.85 kg, 162.56 cm) ll1 MDM: 17:55 Patient medically screened. pm1 17:59 Data reviewed: vital signs. Data interpreted: Pulse oximetry: on room air is 97 %. pm1 Interpretation: normal. Counseling: I had a detailed discussion with the patient and/or guardian regarding: the historical points, exam findings, and any diagnostic results supporting the discharge/admit diagnosis, the need for outpatient follow up, a family practitioner, to return to the emergency department if symptoms worsen or persist or if there are any questions or concerns that arise at home. 17:59 ED course: Patient started working yesterday using a hot press iron. Patient burned her pm1 right forearm yesterday and reports swelling to right index finger. Patient with contusion to palmar tip of right finger with callousing of the skin along the whole lateral aspect. Appears to be repetitive overuse of finger. Negative for signs of flexor tenosynovitis. Does not appear to have any signs of infection. Recommended cessation of repetitive motion and rest of hands. 08/09 18:00 Order name: Wound Care; Complete Time: 18:04 pm1 Administered Medications: 18:14 Drug: Tetanus-Diphtheria Toxoid Adult 0.5 ml {Computator: [employer] [place]. Exp: ld1 06/18/2023. Lot #: [id number]. } Route: IM; Site: left deltoid; 18:15 Follow up: Response: No adverse reaction ld1 Disposition: 18:55 Co-signature as Attending Physician, Antony Ely MD. rn Disposition Summary: 08/09/21 18:01 Discharge Ordered Location: Home pm1 Problem: new pm1 Symptoms: have improved pm1 Condition: Stable pm1 Diagnosis - Burn of second degree of right forearm, initial encounter pm1 Followup: pm1 - With: Emergency Department - When: As needed - Reason: Worsening of condition Followup: pm1 - With: Private Physician - When: 2 - 3 days - Reason: Recheck today's complaints, Continuance of care, Re-evaluation by your physician Discharge Instructions: - Discharge Summary Sheet pm1 - Second-Degree Burn, Adult pm1 Forms: - Medication Reconciliation Form pm1 - Thank You Letter pm1 - Antibiotic Education pm1 - Prescription Opioid Use pm1 Prescriptions: - Bacitracin ointment 500 unit/g - Apply to affected area 1 application by TOPICAL route every 8 hours; 1 tube; pm1 Refills: 0, Product Selection Permitted Signatures: Antony Ely MD MD rn Marinas, Patrick, NP [employer] pm1 Hamlet Cochran RN RN ll1 Selena Jung RN RN ld1 Corrections: (The following items were deleted from the chart) 18:35 17:59 ED course: Patient started working yesterday using a hot press iron. Patient pm1 burned her right forearm yesterday and reports swelling to right index finger. Patient with contusion to palmar tip of right finger with callousing of the skin along the whole lateral aspect. Appears to be repetitive overuse of finger. Negative for signs of flexor tenosynovitis. Recommended cessation of repetitive motion and rest of hands. pm1
[2021-08-09] MEDS ORDERED: TETANUS & DIPHTHERIA TOX,ADULT 0.5 ML VIAL ONE (18:11)
[2021-08-09 21:15] VITALS: TEMP 98
[2021-08-09 21:17] VITALS: BP 129/86; O2SAT 99
== END 2021-08-09 18:21 | disposition home or self-care (01) ==
LOC: ER 16:34
DX: T22.211A Burn of second degree of right forearm, initial encounter (principal); X17.XXXA Contact with hot engines, machinery and tools, initial encounter; Y92.89 Other specified places as the place of occurrence of the external cause; Y99.8 Other external cause status; Z23 Encounter for immunization; Z88.5 Allergy status to narcotic agent; E11.9 Type 2 diabetes mellitus without complications; I10 Essential (primary) hypertension
CPT/HCPCS: 90471; 90714; 99284

== ENCOUNTER 2022-02-10 11:47 | Emergency (ER) | payer OTHER ==
--- OUTSIDE RECORDS SUMMARY | 2022-02-10 11:51 | XMS REPORT | Continuity of Care Document ---
:1960 Author Organization [facility] t Address [facility] Brennan [address] [place] [id number] Care Team Providers Name Role Phone CARLOS BALDERRAMA Primary Care Physician Unavailable VINNIE OGLESBY Attending Clinician Unavailable VINNIE OGLESBY Attending Clinician Unavailable Shabbir EPPS, Vinnie Barron Attending Clinician [phone] Shyanne EPPS, Jocelin Givens Attending Clinician WILL ANTONIO D.O. Attending Clinician Unavailable CYRIL MACK M.D. Attending Clinician Unavailable VINNIE OGLSEBY Admitting Clinician Unavailable Payers Payer Name Policy Type Policy Number Effective Date Expiration Date S mickey MEDICARE A B [id number] 2001 00:00:00 MEDICAID [facility] [id number] 2017 00:00:00 MEDICARE PART A [id number] \\T\\ B - MEDICARE [facility]-MEDICAID - [id number] MEDICAID Problems Condition Condition Condition Status Onset Resolution Last Treating Co mments Source Name Details Category Date Date Treatment Clinician Date Biliary Biliary Disease [facility] [address] [place] [address] 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[facility] diabetes diabetes 4-15 Colleg e mellitus mellitus 00:00: of 00 Medicin e Hyperchole Hyperchole Disease Active [facility] sterole[facility] sterolemia 4[facility]: 00 Medicin e Pancreatit Pancreatit Disease Active [facility] is is 4-15 [facility] 00:00: Medicin e History of History of Disease Active [facility] diverticul diverticul 4-15 [facility] itis itis 00:00: 00 Medicin e No known No known Disease Metho di active active st problems problems Hospit [facility] l Hyperlipid Hyperlipid Problem [facility] Hypertensi Hypertensi Problem [facility] Diabetes [facility] Allergies, Adverse Reactions, Alerts Allergy Allergy Status Severity Reaction(s) Onset Inactive Treating Comm ents Source Name Type Date Date Clinician CODEINE Allergy Active Med N\\T\\V [facility] Codeine Drug Active N[facility]a [facility] HYDROCOD Allergy Active Med N\\T\\V [facility] 5[facility]08 [facility] AMINOPHE 00:00: Medical N 00 Center Hydrocod Drug Active Nausea And As per [facility] one-Acet Allergy Vomiting, 5-08 patient, Romina kes aminophe Other (See 00:00: " it Medi sarah n Comments) 00 wears on Cente r my stomach" hydrocod DA Active [facility] [place] Hydrocod Propensi Active Method i one ty to 7-26 st adverse 00:00: Hospita reaction 00 l s to drug Family History Family Member Diagnosis Comments Start Date Stop Date Source Natural father Diabetes [facility] mother [facility] Natural mother [facility] Natural mother [facility]pertension [facility] Unknown Family [facility] diabetes mellitus Unknown Family Family history of Other [facility] hypertension Unknown Family Family history of Other [facility] Heart problem Social History Social Habit Start Date Stop Date Quantity Comments Source History of tobacco Passive smoker [facility] Medicine History SDOH [facility] Alcohol Std Drinks Hospit al History [facility] Exposure to 2022-01-23 2022-02-[address] [facility] SARS-CoV-2 (event) 00:00:00 11:41:00 Medica l Center History [facility] 2019-11-17 2019-11-[address] [facility] Alcohol Comment 00:00:00 00:00:00 Medical C enter Tobacco Comment 2019-08-15 2019-08-15 quit [address] [facility] 00:00:00 00[facility]:00 Medical Center Cigarettes smoked 2019-08-15 2019-08-[address] [facility] current (pack per 00:00:00 00:00:00 Medical Center day) - Reported Cigarette 2019-08-15 2019-08-[address] [facility] pack-years 00:00:00 00:00:00 Medical Center Tobacco use and 2019-08-15 2019-08-[address] Romina kes exposure 00:00:00 00:00:00 [facility] Alcohol intake 2018-12-10 2018-12-10 Lifetime [facility] 00:00:00 00:00:00 non-drinker Hospital (finding) History [facility] 2018-11-01 2018-11-01 1 [facility] Alcohol Frequency 00:00:00 00:00:00 Hospita l Sex Ass[birth year] At [birth year] [facility] 00:00:00 00:00:00 Hospital Smoking Status Start Date Stop Date Source Never smoked tobacco [facility] Former smoker 2019-08-15 00:00:00 2019-08-15 00:00:[address] [facility] Medications Ordered Filled Start Stop Current Ordering Indication Dosage Frequency Signature Comments Components Source Medication Medication Date Date Medication? Clinician (SIG) Name Name atorvastati 2021-04 Yes 40mg QD Take [address] n (LIPITOR) 0-27 by mouth Luke s 40 MG 14:58: daily. Medical tablet Center insulin 2021-04 Yes QD Inject [facility] glargine 0-27 [facility] (LANTUS) 14:58: usly Medical 100 unit/mL 49 nightly Cente r injection Use as directed . lisinopriL 2021-04 Yes 10mg QD Take [address] (PRINIVIL,Z 0-27 by mouth Luke s ESTRIL) 10 14:58: daily Medica l MG tablet 49 Night. Center lubiproston 2021-04 Yes 8ug Take [address] e (AMITIZA) 0-27 by mouth 2 Romina kes 8 MCG 14:58: (two) Medical capsule 49 times Center daily as needed . lipase/prot 2021-04 Yes [id number] Q.[id number] Take [facility] ease/amylas 0-27 [id number] 36,000 [facility] e (CREON 14:58: 3D Units by Medic al ORAL) 49 mouth 3 Center (three) times daily . pantoprazol 2021-04 Yes 40mg Q.5D Take [address] e 0-27 by mouth 2 [facility] (PROTONIX) 14:58: (two) Medica l 40 MG 49 times Center tablet daily . promethazin 2021-04 Yes 25mg Take [address] [facility] e 0-27 by mouth [facility] (PHENERGAN) 14:58: every 6 Med ical 25 MG 49 (six) Center tablet hours as needed for Nausea. sucralfate 2021-04 Yes 1g Q.25D Take [address] (CARAFATE) 0-27 by mouth 4 Mini es 1 gram 14:58: (four) Medical tablet 49 times Center daily. atorvastati 2021-04 Yes 40mg QD Take [address] n (LIPITOR) 0-27 by mouth Luke s 40 MG 14:58: daily. Medical tablet 49 Center insulin 2021-04 Yes QD Inject [facility] glargine 0-27 [facility]cutaneo [facility] (LANTUS) 14:58: usly Medical 100 unit/mL 49 nightly Cente r injection Use as directed . lisinopriL 2021-04 Yes 10mg QD Take [address] (PRINIVIL,Z 0-27 by mouth Luke s ESTRIL) 10 14:58: daily Medica l MG tablet 49 Night. Center lubiproston 2021-04 Yes 8ug Take [address] e (AMITIZA) 0-27 by mouth 2 Romina kes 8 MCG 14:58: (two) Medical capsule 49 times Center daily as needed . lipase/prot 2021-04 Yes [id number] Take [facility] ease/amylas 0-27 [id number] 36,000 [facility] e (CREON 14:58: 3D Units by Medic al ORAL) 49 mouth 3 Center (three) times daily . pantoprazol 2021-04 Yes 40mg Q.5D Take [address] [facility] e 0-27 by mouth 2 [facility] (PROTONIX) 14:58: (two) Medica l 40 MG 49 times Center tablet daily . promethazin 2021-04 Yes 25mg Take [address] [facility] [facility] e 0-27 by mouth [facility] (PHENERGAN) 14:58: every 6 Med ical 25 MG 49 (six) Center tablet hours as needed for Nausea. sucralfate 2021-04 Yes 1g Q.25D Take [address] (CARAFATE) 0-27 by mouth 4 Mini es 1 gram 14:58: (four) Medical tablet 49 times Center daily. atorvastati 2021-04 Yes 40mg QD Take [address] n (LIPITOR) 0-27 by mouth Luke s 40 MG 14:58: daily. Medical tablet 49 Center insulin 2021-04 Yes QD Inject [facility] glargine 0-27 subcutaneo [facility] (LANTUS) 14:58: usly Medical 100 unit/mL 49 nightly Cente r injection Use as directed . lisinopriL 2021-04 Yes 10mg QD Take [address] (PRINIVIL,Z 0-27 by mouth Luke s ESTRIL) 10 14:58: daily Medica l MG tablet 49 Night. Center lubiproston 2021-04 Yes 8ug Take [address] e (AMITIZA) 0-27 by mouth 2 Romina kes 8 MCG 14:58: (two) Medical capsule 49 times Center daily as needed . lipase/prot 2021-04 Yes [id number] Q.[id number] Take [facility] ease/amylas 0-27 [id number] 36,000 [facility] e (CREON 14:58: 3D Units by Medic al ORAL) 49 mouth 3 Center (three) times daily . pantoprazol 2021-04 Yes 40mg Q.5D Take [address] [facility] e 0-27 by mouth 2 [facility] (PROTONIX) 14:58: (two) Medica l 40 MG 49 times Center tablet daily . promethazin 2021-04 Yes 25mg Take [address] [facility] e 0-27 by mouth [facility] (PHENERGAN) 14:58: every 6 Med ical 25 MG 49 (six) Center tablet hours as needed for Nausea. sucralfate 2021-04 Yes 1g Q.25D Take [address] (CARAFATE) 0-27 by mouth 4 Mini es 1 gram 14:58: (four) Medical tablet 49 times Center daily. dicyclomine 2021-04- No 20mg Take [address] (BENTYL) 20 0-27 10-27 by mouth Mini es mg tablet 11:40: 00:00 every 6 Medi sarah 44 :00 (six) Center hours. dicyclomine 2021-04 No 20mg Take [address] (BENTYL) 20 0-27 10-27 by mouth Mini es mg tablet 11:40: 00:00 every 6 Medi sarah 44 :00 (six) Center hours. dicyclomine 2021-04 No 20mg Take [address] (BENTYL) 20 0-27 10-27 by mouth Mini es mg tablet 11:40: 00:00 every 6 Medi sarah 44 :00 (six) Center hours. lipase/prot 2021-04 Yes [id number] Take [facility] ease/amylas 0-26 [id number] 36,000 [facility] e (CREON 09:59: 3D Units by Medic al ORAL) 15 mouth 3 Center (three) times daily . pantoprazol 2021-04 Yes 40mg Q.5D Take [address] [facility] e 0-26 by mouth 2 [facility] (PROTONIX) 09:59: (two) Medica l 40 MG 15 times Center tablet daily . promethazin 2021-04 Yes 25mg Take [address] [facility] [facility] e 0-26 by mouth [facility] (PHENERGAN) 09:59: every 6 Med ical 25 MG 15 (six) Center tablet hours as needed for Nausea. sucralfate 2021-04 Yes 1g Q.25D Take [address] (CARAFATE) 0-26 by mouth 4 Mini es 1 gram 09:59: (four) Medical tablet 15 times Center daily. atorvastati 2021-04 Yes 40mg QD Take [address] n (LIPITOR) 0-26 by mouth Luke s 40 MG 09:59: daily. Medical tablet 15 Center dicyclomine 2021-04 Yes 20mg Take [address] (BENTYL) 20 0-26 by mouth Luke s mg tablet 09:59: every 6 Medic al 15 (six) Center hours. insulin 2021-04 Yes QD Inject [facility] glargine 0-26 [facility]cutaneo [facility] (LANTUS) 09:59: usly Medical 100 unit/mL 15 nightly Cente r injection Use as directed . lisinopriL 2021-04 Yes 10mg QD Take [address] (PRINIVIL,Z 0-26 by mouth Luke s ESTRIL) 10 09:59: daily Medica l MG tablet 15 Night. [place] lubiproston 2021-04 Yes 8ug Take [address] e (AMITIZA) 0-26 by mouth 2 Romina kes 8 MCG 09:59: (two) Medical capsule 15 times Center daily as needed . Lubipro[place] [facility] (AMITIZA) 01-04 [facility] 8 MCG CAPS 13:11: 00:00 of 58 :00 Medicin e atorvastati Yes [facility] n (LIPITOR) 01-04 [facility] 40 MG 13:11: of tablet 56 Medicin e dicyclomine Yes [facility] (BENTYL) 20 01-04 [facility] MG tablet 13:11: of 56 Medicin e insulin Yes [facility] glargine 01-04 [facility] (LANTUS) 13:11: of 100 UNIT/ML 56 Medicin injection e lisinopril Yes [facility] (PRINIVIL, 01-04 [facility] ZESTRIL) 10 13:11: of MG tablet 56 Medicin e pantoprazol Yes [facility] 01-04 [facility] (PROTONIX) 13:11: of 40 MG 56 Medicin tablet e sucralfate Yes [facility] (CARAFATE) 01-04 [facility] 1 g tablet 13:11: of 56 Medicin e rifAXIMin Yes 550mg Take 550 [place] hnanah 550 MG TABS 01-04 mg by [facility] 00:00: mouth 3 of 00 times Medicin daily. e atorvastati 2020-0 Yes 40mg QD Take [address] n (LIPITOR) 8-12 by mouth Luke [facility] 40 MG 13:03: daily. Medical tablet 21 Center dicyclomine 2020-0 Yes 20mg Take [address] (BENTYL) 20 8-12 by mouth Luke s mg tablet 13:03: every 6 Medic al 21 (six) Center hours. insulin 2020-0 Yes QD Inject [facility] glargine 8-12 subcutaneo [facility] (LANTUS) 13:03: usly Medical 100 unit/mL 21 nightly Cente r injection Use as directed . lisinopriL 2020-0 Yes 10mg QD Take [address] (PRINIVIL,Z 8-12 by mouth Luke s ESTRIL) 10 13:03: daily. Medic al MG tablet 21 Center lubiproston 2020-0 Yes 8ug Take [address] e (AMITIZA) 8-12 by mouth 2 Romina kes 8 MCG 13:03: (two) Medical capsule 21 times Center daily as needed . lipase/prot 2020-0 Yes [id number] Q.[id number] Take [facility] ease/amylas 8-12 [id number] 36,000 [facility] e (CREON 13:03: 3D Units by Medic al ORAL) 21 mouth 3 Center (three) times daily . pantoprazol 2020-0 Yes 40mg Q.5D Take [address] [facility] e 8-12 by mouth 2 [facility] (PROTONIX) 13:03: (two) Medica l 40 MG 21 times Center tablet daily . promethazin 2020-0 Yes 25mg Take [address] [facility] e 8-12 by mouth [facility] (PHENERGAN) 13:03: every 6 Med ical 25 MG 21 (six) Center tablet hours as needed for Nausea. sucralfate 2020-0 Yes 1g Q.25D Take [address] (CARAFATE) 8-12 by mouth 4 Mini es 1 gram 13:03: (four) Medical tablet 21 times Center daily. atorvastati 2020-0 Yes 40mg QD Take [address] n (LIPITOR) 8-12 by mouth Luke s 40 MG 13:03: daily. Medical tablet 21 Center dicyclomine 2020-0 Yes 20mg Take [address] (BENTYL) 20 8-12 by mouth Luke s mg tablet 13:03: every 6 Medic al 21 (six) Center hours. insulin 2020-0 Yes QD Inject [facility] glargine 8-12 [facility]cutaneo [facility] (LANTUS) 13:03: usly Medical 100 unit/mL 21 nightly Cente r injection Use as directed . lisinopriL 2020-0 Yes 10mg QD Take [address] (PRINIVIL,Z 8-12 by mouth Luke s ESTRIL) 10 13:03: daily. Medic al MG tablet 21 Center lubiproston 2020-0 Yes 8ug Take [address] e (AMITIZA) 8-12 by mouth 2 Romina kes 8 MCG 13:03: (two) Medical capsule 21 times Center daily as needed . lipase/prot 2020-0 Yes [id number] Take [facility] ease/amylas 8-12 [id number] 36,000 [facility] e (CREON 13:03: 3D Units by Medic al ORAL) 21 mouth 3 Center (three) times daily . pantoprazol 2020-0 Yes 40mg Q.5D Take [address] [facility] e 8-12 by mouth 2 [facility] (PROTONIX) 13:03: (two) Medica l 40 MG 21 times Center tablet daily . promethazin 2020-0 Yes 25mg Take [address] [facility] e 8-12 by mouth [facility] (PHENERGAN) 13:03: every 6 Med ical 25 MG 21 (six) Center tablet hours as needed for Nausea. sucralfate 2020-0 Yes 1g Q.25D Take [address] (CARAFATE) 8-12 by mouth 4 Mini es 1 gram 13:03: (four) Medical tablet 21 times Center daily. tramadol 2020-0 2021- No TK 1 T PO [place] [facility] (ULTRAM) 50 5-21 - Q 6 H PRN Co llege MG tablet 00:00: 00:00 FOR 5 DAYS o f 00 :00 Medicin e CREON [id number] 2020-0 Yes TK 2 CS PO [facility] units CPEP 2-11 WITH EACH Cristino ege 00:00: MEAL AND 1 of 00 C PO FOR Medicin EACH SNACK e promethazin 2019-0 2021- No TK 1 T PO [facility] e 2-07 09-28 Q 6 H College (PHENERGAN) 00:00: 00:00 of 25 MG 00 :00 Medicin tablet e No known 2018-04 No No known Metho di medications 2- medication [facility] 13:23: s Hospita 40 l No known 2018-04 No No known Metho di medications 2-[address] 13:23: s Hospita 40 l No known 2018- No No known Metho di medications 2-[address] 13:23: s Hospita 40 l No known 2018-04 No No known Metho di medications 2-[address] 13:23: s Hospita 40 l No known 2018- No No known Metho di medications 2-[address] 13:23: s Hospita 40 l No known No Methodi medications [facility] Hospita l Vital Signs Vital Name Observation Time Observation Value Comments Source HEIGHT 2019-10-20 00:00:00 157.5 cm WEIGHT 2019-10-20 00:00:00 69.355 kg HEIGHT 2019-08-13 00:00:00 157.5 cm WEIGHT 2019-08-13 00:00:00 70.716 kg HEIGHT 2022-02-02 11:25:00 157.5 cm WEIGHT 2022-02-02 11:25:00 68.448 kg HEIGHT 2022-02-01 10:01:00 157.5 cm WEIGHT 2022-02-01 10:01:00 69.4 kg HEIGHT 2022-02-02 11:25:00 157.5 cm WEIGHT 2022-02-02 11:25:00 68.448 kg HEIGHT 2022-02-01 10:01:00 157.5 cm WEIGHT 2022-02-01 10:01:00 69.4 kg HEIGHT 2022-02-02 11:25:00 157.5 cm WEIGHT 2022-02-02 11:25:00 68.448 kg HEIGHT 2022-02-01 10:01:00 157.5 cm WEIGHT 2022-02-01 10:01:00 69.4 kg Systolic blood 2022-01-04 18:10:00 136 mm[Hg] [facility] pressure Medicine Diastolic blood 2022-01-04 18:10:00 78 mm[Hg] [facility] pressure Medicine Respiratory rate 2022-01-04 18:10:00 16 /min [facility] Body height 2022-01-04 18:10:00 157.5 cm [facility] Body weight 2022-01-04 18:10:00 69.582 kg [facility] BMI 2022-01-04 18:10:00 28.06 kg/m2 [facility] HEIGHT 2019-10-20 00:00:00 157.5 cm WEIGHT 2019-10-20 00:00:00 69.355 kg HEIGHT 2019-08-13 00:00:00 157.5 cm WEIGHT 2019-08-13 00:00:00 70.716 kg Systolic blood 2022-02-02 14:30:00 158 mm[Hg] [facility] Diastolic blood 2022-02-02 14:30:00 66 mm[Hg] [facility] Heart rate 2022-02-02 14:30:00 60 /min [facility] Body temperature 2022-02-02 14:30:00 36.44 [facility] Respiratory rate 2022-02-02 14:30:00 18 /min [facility] Oxygen saturation in 2022-02-02 14:30:00 100 /min [facility] Arterial blood by Medical Ce nter Pulse oximetry Body height 2022-02-02 11:25:00 157.5 cm [facility] Body weight 2022-02-02 11:25:00 68.448 kg [facility] BMI 2022-02-02 11:25:00 27.60 kg/m2 [facility] Body height 2022-02-01 10:01:00 157.5 cm [facility] Body weight 2022-02-01 10:01:00 69.4 kg [facility] BMI 2022-02-01 10:01:00 27.98 kg/m2 [facility] Height 2018-05-24 10:25:00 62 [in_us] [facility] Weight 2018-05-24 10:25:00 154.9 [lb_av] [facility] Body Mass Index 2018-05-24 10:25:00 28.33 kg/m2 [facility] Calculated BP Systolic 2018-04-26 10:21:00 127 mm[Hg] [facility] BP Diastolic 2018-04-26 10:21:00 76 mm[Hg] [facility] Height 2018-04-26 10:21:00 62 [in_us] [facility] Weight 2018-04-26 10:21:00 155.6 [lb_av] [facility] Body Mass Index 2018-04-26 10:21:00 28.46 kg/m2 [facility] Calculated Temperature 2018-04-26 10:21:00 97 [degF] [facility] Heart Rate 2018-04-26 10:21:00 73 [facility] Procedure Date / Time Performing Source Performed Clinician REPORT OF PROCEDURE - ENDOSCOPY 2022-02-[address] [facility] URL 14:02:35 [facility] POCT-GLUCOSE METER 2022-02-[address] [facility] 13:48:00 [facility] ESOPHAGOGASTRODUODENOSCOPY, WITH 2022-02-02 [facility] SUBMUCOSAL INJECTION 13:00:[address] [facility] [address] ESOPHAGOGASTRODUODENOSCOPY, WITH 2022-02-[address] [facility] ENDOSCOPIC US 13:00:00 [facility] ESOPHAGOGASTRODUODENOSCOPY 2022-02-02 [facility] 13:00:00 [facility] ULTRASOUND, UPPER GI TRACT, 2022-02-[address] [facility] ENDOSCOPIC, WITH FINE NEEDLE 13:00:00 [facility] ASPIRATION ESOPHAGOGASTRODUODENOSCOPY, WITH 2022-02-02 [facility] ENDOSCOPIC MUCOSAL RESECTION 13:00:00 [facility] POCT-GLUCOSE METER 2022-02-02 [facility] 12:05:00 [facility] PANCREATIC ELASTASE - FECAL 2022-01-13 [facility] 16:03:00 of Medicine Plan of Care Planned Activity Planned Date Details Comments Source Future Scheduled 2022-02-09 HEPATITIS B VACCINES (1 [facility] 15:54:46 of 3 - 3-dose series) Hospit al [code = HEPATITIS B VACCINES (1 of 3 - 3-dose series)] Future Scheduled 2022-02-09 COVID-19 VACCINE (#1) [facility] 15:54:46 [code = COVID-19 Hospital VACCINE (#1)] Future Scheduled 2022-02-09 Screening for malignant [facility] 15:54:46 neoplasm of cervix Hospital (procedure) [code = 669935953] Future Scheduled 2022-02-09 BREAST CANCER SCREENING [facility] 15:54:46 [code = BREAST CANCER Hospit al SCREENING] Future Scheduled 2022-02-09 COLONOSCOPY SCREENING [facility] 15:54:46 [code = COLONOSCOPY Hospital SCREENING] Future Scheduled 2022-02-09 SHINGLES VACCINES (1 of [facility] 15:54:46 2) [code = SHINGLES Hospital VACCINES (1 of 2)] Future Scheduled 2022-02-09 INFLUENZA VACCINE [code [facility] 15:54:46 = INFLUENZA VACCINE] Hospita l Future Scheduled 2022-02-06 HEPATITIS B VACCINES (1 [facility] 13:59:44 of 3 - 3-dose series) Hospit al [code = HEPATITIS B VACCINES (1 of 3 - 3-dose series)] Future Scheduled 2022-02-06 COVID-19 VACCINE (#1) [facility] 13:59:44 [code = COVID-19 Hospital VACCINE (#1)] Future Scheduled 2022-02-06 Screening for malignant [facility] 13:59:44 neoplasm of cervix Hospital (procedure) [code = 188700786] Future Scheduled 2022-02-06 BREAST CANCER SCREENING [facility] 13:59:44 [code = BREAST CANCER Hospit al SCREENING] Future Scheduled 2022-02-06 COLONOSCOPY SCREENING [facility] 13:59:44 [code = COLONOSCOPY Hospital SCREENING] Future Scheduled 2022-02-06 SHINGLES VACCINES (1 of [facility] 13:59:44 2) [code = SHINGLES Hospital VACCINES (1 of 2)] Future Scheduled 2022-02-06 INFLUENZA VACCINE [code [facility] 13:59:44 = INFLUENZA VACCINE] Hospita l Future Scheduled 2022-02-06 HEPATITIS B VACCINES (1 [facility] 13:59:44 of 3 - 3-dose series) Hospit al [code = HEPATITIS B VACCINES (1 of 3 - 3-dose series)] Future Scheduled 2022-02-06 COVID-19 VACCINE (#1) [facility] 13:59:44 [code = COVID-19 Hospital VACCINE (#1)] Future Scheduled 2022-02-06 Screening for malignant [facility] 13:59:44 neoplasm of cervix Hospital (procedure) [code = 673678098] Future Scheduled 2022-02-06 BREAST CANCER SCREENING [facility] 13:59:44 [code = BREAST CANCER Hospit al SCREENING] Future Scheduled 2022-02-06 COLONOSCOPY SCREENING [facility] 13:59:44 [code = COLONOSCOPY Hospital SCREENING] Future Scheduled 2022-02-06 SHINGLES VACCINES (1 of [facility] 13:59:44 2) [code = SHINGLES Hospital VACCINES (1 of 2)] Future Scheduled 2022-02-06 INFLUENZA VACCINE [code [facility] 13:59:44 = INFLUENZA VACCINE] Hospita l Future Scheduled 2022-01-14 Screening for malignant [facility] Test 13:58:24 neoplasm of colon of Medicin e (procedure) [code = 299295668] Future Scheduled 2022-01-14 Screening for malignant [facility] Test 13:58:24 neoplasm of breast of Medici ne (procedure) [code = 471574834] Future Scheduled 2022-01-14 COVID-19 Vaccine (#1) [facility] Test 13:58:24 [code = COVID-19 of Medicine Vaccine (#1)] Future Scheduled 2022-01-14 Pneumococcal Combined [facility] Test 13:58:24 (1 - PCV) [code = of Medicin e Pneumococcal Combined (1 - PCV)] Future Scheduled 2022-01-14 TETANUS SHOT (ADULT) [place] [facility] Test 13:58:24 [code = TETANUS SHOT of Medi cine (ADULT)] Future Scheduled 2022-01-14 Diabetic foot [facility] Col lege Test 13:58:24 examination of Medicine (regime/therapy) [code = 862315568] Future Scheduled 2022-01-14 ANNUAL DIABETIC [facility] C [facility]lege Test 13:58:24 RETINOPATHY SCREENING of Med icine [code = ANNUAL DIABETIC RETINOPATHY SCREENING] Future Scheduled 2022-01-14 BMI FOLLOW UP PLAN [employer] Test 13:58:24 [code = BMI FOLLOW UP of Med icine PLAN] Future Scheduled 2022-01-14 Hepatitis C screening [facility] Test 13:58:24 (procedure) [code = of Medic ine [id number]] Future Scheduled 2022-01-14 [facility] virus screening of Medicine (procedure) [code = 655022980] Future Scheduled 2022-01-14 Screening for malignant [facility] Test 13:58:24 neoplasm of cervix of Medici ne (procedure) [code = 703590422] Future Scheduled 2022-01-14 MEDICARE AWV (Initial) [facility] Test 13:58:24 [code = MEDICARE AWV of Medi cine (Initial)] Future Scheduled 2022-01-14 ZOSTER VACCINE (1 of 2) [facility] Test 13:58:24 [code = ZOSTER VACCINE of Me dicine (1 of 2)] Future Scheduled 2022-01-14 FLU VACCINE > 6 MONTHS B [facility] Test 13:58:24 [code = FLU VACCINE > 6 of M edicine MONTHS] Future Scheduled 2022-01-12 Screening for malignant [facility] 15:05:35 neoplasm of cervix Hospital (procedure) [code = 256943262] Future Scheduled 2022-01-12 BREAST CANCER SCREENING [facility] Test 15:05:35 [code = BREAST CANCER Hospit al SCREENING] Future Scheduled 2022-01-12 COLONOSCOPY SCREENING [facility] 15:05:35 [code = COLONOSCOPY Hospital SCREENING] Future Scheduled 2022-01-12 SHINGLES VACCINES (1 of [facility] 15:05:35 2) [code = SHINGLES Hospital VACCINES (1 of 2)] Future Scheduled 2022-01-12 INFLUENZA VACCINE [code [facility] 15:05:35 = INFLUENZA VACCINE] Hospita l Future Scheduled 2022-01-12 HEPATITIS B VACCINES (1 [facility] 15:05:35 of 3 - 3-dose series) Hospit al [code = HEPATITIS B VACCINES (1 of 3 - 3-dose series)] Future Scheduled 2022-01-12 COVID-19 VACCINE (#1) [facility] 15:05:35 [code = COVID-19 Hospital VACCINE (#1)] Future Scheduled 2022-01-12 Screening for malignant [facility] 15:05:35 neoplasm of cervix Hospital (procedure) [code = 588442350] Future Scheduled 2022-01-12 BREAST CANCER SCREENING [facility] 15:05:35 [code = BREAST CANCER Hospit al SCREENING] Future Scheduled 2022-01-12 COLONOSCOPY SCREENING [facility] 15:05:35 [code = COLONOSCOPY Hospital SCREENING] Future Scheduled 2022-01-12 SHINGLES VACCINES (1 of [facility] 15:05:35 2) [code = SHINGLES Hospital VACCINES (1 of 2)] Future Scheduled 2022-01-12 INFLUENZA VACCINE [code [facility] 15:05:35 = INFLUENZA VACCINE] Hospita l Future Scheduled 2022-01-12 HEPATITIS B VACCINES (1 [facility] 15:05:35 of 3 - 3-dose series) Hospit al [code = HEPATITIS B VACCINES (1 of 3 - 3-dose series)] Future Scheduled 2022-01-12 COVID-19 VACCINE (#1) [facility] 15:05:35 [code = COVID-19 Hospital VACCINE (#1)] Future Scheduled 2022-01-04 PANCREATIC ELASTASE - Ordered: [employer] Test 13:40:45 FECAL [code = 84335-5] 01/04/2022 of Me dicine Future Scheduled 2022-01-04 EGD W/EMR - GI DEPT 1 Occurrences [employer] Test 13:40:45 [code = NOCPT] starting of Medicine 01/04/2022 until 07/04/2022 Future Scheduled 2022-01-04 EUS WITH MAC, UPPER 1 Occurrences [employer] Test 13:40:45 WITH FNA [code = NOCPT] starting of M edicine 01/04/2022 until 07/04/2022 Future Scheduled 2021-12-08 INFLUENZA VACCINE (#1[facility]00 [code = INFLUENZA Medical Ce nter VACCINE (#1)] Future Scheduled 2021-12-08 INFLUENZA VACCINE (#1) [facility] 00:00:00 [code = INFLUENZA Medical Ce nter VACCINE (#1)] Future Scheduled 2021-12-08 INFLUENZA VACCINE (#1) [facility] 00:00:00 [code = INFLUENZA Medical Ce nter VACCINE (#1)] Future Scheduled 2021-12-08 INFLUENZA VACCINE (#1) [facility] 00:00:00 [code = INFLUENZA Medical Ce nter VACCINE (#1)] Future Scheduled 2021-12-08 INFLUENZA VACCINE (#1) [facility] 00:00:00 [code = INFLUENZA Medical Ce nter VACCINE (#1)] Future Scheduled 2021-04-[address] [facility] 00:00:00 (12+) [code = Medical Center DEPRESSION SCREENING (12+)] Future Scheduled 2021-04-[address] [facility] 00:00:00 (12+) [code = Medical Center DEPRESSION SCREENING (12+)] Future Scheduled 2021-04-[address] [facility] 00:00:00 (12+) [code = Medical Center DEPRESSION SCREENING (12+)] Future Scheduled 2021-04-[address] [facility] 00:00:00 (12+) [code = Medical Center DEPRESSION SCREENING (12+)] Future Scheduled 2021-04-[address] [facility] 00:00:00 (12+) [code = Medical Center DEPRESSION SCREENING (12+)] Future Scheduled 2020-12-[address] [facility] 00:00:00 (Season Ended) [code = Medic tn Center INFLUENZA VACCINE (Season Ended)] Future Scheduled 2020-04-[address] [facility] 00:00:00 (12+) [code = Medical Center DEPRESSION SCREENING (12+)] Future Scheduled 2008 SHINGLES VACCINES ([address] [facility] 00:00:00 2) [code = SHINGLES Medical Center VACCINES (1 of 2)] Future Scheduled 2008 SHINGLES VACCINES ([address] [facility] 00:00:00 2) [code = SHINGLES Medical Center VACCINES (1 of 2)] Future Scheduled 2008 SHINGLES VACCINES ([address] [facility] 00:00:00 2) [code = SHINGLES Medical Center VACCINES (1 of 2)] Future Scheduled 2008 SHINGLES VACCINES ([address] [facility] 00:00:00 2) [code = SHINGLES Medical Center VACCINES (1 of 2)] Future Scheduled 2008 SHINGLES VACCINES ([address] [facility] 00:00:00 2) [code = SHINGLES [facility] VACCINES (1 of 2)] Future Scheduled 2008 SHINGLES VACCINES ([address] [facility] 00:00:00 2) [code = SHINGLES Medical Center VACCINES (1 of 2)] Future Scheduled 2003-09-07 Lipid panel (procedure) [facility] 00:00:00 [code = 79858161] Medical Ce nter Future Scheduled 2003-09-07 Lipid panel (procedure) [facility] 00:00:00 [code = 34370674] Medical Ce nter Future Scheduled 2003-09-07 Lipid panel (procedure) [facility] 00:00:00 [code = 67949156] Medical Ce nter Future Scheduled 2003-09-07 Lipid panel (procedure) [facility] 00:00:00 [code = 52720959] Medical Ce nter Future Scheduled 2003-09-07 Lipid panel (procedure) [facility] 00:00:00 [code = 80626697] Medical Ce nter Future Scheduled 2003-09-07 Lipid panel (procedure) [facility] 00:00:00 [code = 67125323] Medical Ce nter Future Scheduled 2002-10-[address] [facility] 00:00:00 WELLNESS (YEAR 2 or Medical Center FIRST YEAR if no IPPE) [code = MEDICARE ANNUAL WELLNESS (YEAR 2 or FIRST YEAR if no IPPE)] Future Scheduled 2002-10-[address] [facility] 00:00:00 WELLNESS (YEAR 2 or Medical Center FIRST YEAR if no IPPE) [code = MEDICARE ANNUAL WELLNESS (YEAR 2 or FIRST YEAR if no IPPE)] Future Scheduled 2002-10-[address] [facility] 00:00:00 WELLNESS (YEAR 2 or Medical Center FIRST YEAR if no IPPE) [code = MEDICARE ANNUAL WELLNESS (YEAR 2 or FIRST YEAR if no IPPE)] Future Scheduled 2002-10-[address] [facility] 00:00:00 WELLNESS (YEAR 2 or Medical Center FIRST YEAR if no IPPE) [code = MEDICARE ANNUAL WELLNESS (YEAR 2 or FIRST YEAR if no IPPE)] Future Scheduled 2002-10-[address] [facility] 00:00:00 WELLNESS (YEAR 2 or Medical Center FIRST YEAR if no IPPE) [code = MEDICARE ANNUAL WELLNESS (YEAR 2 or FIRST YEAR if no IPPE)] Future Scheduled 2002-10-[address] [facility] 00:00:00 WELLNESS (YEAR 2 or Medical Center FIRST YEAR if no IPPE) [code = MEDICARE ANNUAL WELLNESS (YEAR 2 or FIRST YEAR if no IPPE)] Future Scheduled 1979-09-07 Screening for malignant [facility] 00:00:00 neoplasm of cervix Medical C enter (procedure) [code = 769374056] Future Scheduled 1979-09-07 Screening for malignant [facility] 00:00:00 neoplasm of cervix Medical C enter (procedure) [code = 769212892] Future Scheduled 1979-09-07 Screening for malignant [facility] 00:00:00 neoplasm of cervix Medical C enter (procedure) [code = 657843911] Future Scheduled 1979-09-07 Screening for malignant [facility] 00:00:00 neoplasm of cervix Medical C enter (procedure) [code = 747987639] Future Scheduled 1979-09-07 Screening for malignant [facility] 00:00:00 neoplasm of cervix Medical C enter (procedure) [code = 662397807] Future Scheduled 1979-09-07 Screening for malignant [facility] 00:00:00 neoplasm of cervix Medical C enter (procedure) [code = 292243072] Future Scheduled 1977 DTAP/TDAP/TD [facility]ACCINES [facility] 00:00:00 (1 - Tdap) [code = Medical C enter DTAP/TDAP/TD VACCINES (1 - Tdap)] Future Scheduled 1977 DTAP/TDAP/TD [facility]ACCINES [facility] 00:00:00 (1 - Tdap) [code = Medical C enter DTAP/TDAP/TD VACCINES (1 - Tdap)] Future Scheduled 1977 DTAP/TDAP/TD [facility]ACCINES [facility] 00:00:00 (1 - Tdap) [code = Medical C enter DTAP/TDAP/TD VACCINES (1 - Tdap)] Future Scheduled 1977 DTAP/TDAP/TD [facility]ACCINES [facility] 00:00:00 (1 - Tdap) [code = Medical C enter DTAP/TDAP/TD VACCINES (1 - Tdap)] Future Scheduled 1977 DTAP/TDAP/TD [facility]ACCINES [facility] 00:00:00 (1 - Tdap) [code = Medical C enter DTAP/TDAP/TD VACCINES (1 - Tdap)] Future Scheduled 1977 DTAP/TDAP/TD [facility]ACCINES [facility] 00:00:00 (1 - Tdap) [code = Medical C enter DTAP/TDAP/TD VACCINES (1 - Tdap)] Future Scheduled 1976 HEPATITIS C [facility]CRE[facility]ING [facility] 00:00:00 [code = HEPATITIS C Medical Center SCREENING] Future Scheduled 1976 HEPATITIS C [facility] 00:00:00 [code = HEPATITIS C Medical Center SCREENING] Future Scheduled 1976 HEPATITIS C [facility] 00:00:00 [code = HEPATITIS C Medical Center SCREENING] Future Scheduled 1976 HEPATITIS C [facility] 00:00:00 [code = HEPATITIS C Medical Center SCREENING] Future Scheduled 1976 HEPATITIS C [facility] 00:00:00 [code = HEPATITIS C Medical Center SCREENING] Future Scheduled 1976 HEPATITIS C [facility] 00:[facility]:00 [code = HEPATITIS C Medical Center SCREENING] Future Scheduled 1970 COVID-19 VACCINE (1) [facility] 00:00:00 [code = COVID-[address] VACCINE (1)] Future Scheduled 1959-03-08 COVID-19 VACCINE (#1[facility] 00:00:00 [code = COVID-[address] VACCINE (#1)] Future Scheduled 1959-03-08 COVID-19 VACCINE (#1[facility] 00:00:00 [code = COVID-[address] VACCINE (#1)] Future Scheduled 1959-03-08 COVID-19 VACCINE (#1) [facility] 00:00:00 [code = COVID-[address] VACCINE (#1)] Future Scheduled 1959-03-08 COVID-19 VACCINE (#1) [facility] 00:00:00 [code = COVID-[address] VACCINE (#1)] Future Scheduled 1959-03-08 COVID-19 VACCINE (#1) [facility] 00:00:00 [code = COVID-[address] VACCINE (#1)] Future Scheduled 1958 Screening for malignant [facility] 00:00:00 neoplasm of breast Medical C enter (procedure) [code = 754424687] Future Scheduled 1958 CT Colonography (combo) [facility] 00:00:00 [code = CT [facility] (combo)] Future Scheduled 1958 Screening for malignant [facility] 00:00:00 neoplasm of colon Medical Ce nter (procedure) [code = 645154458] Future Scheduled 1958 Screening for malignant [facility] 00:00:00 neoplasm of colon Medical Ce nter (procedure) [code = 931212755] Future Scheduled 1958 Screening for malignant [facility] 00:00:00 neoplasm of colon Medical Ce nter (procedure) [code = 364712765] Future Scheduled 1958 Screening for malignant [facility] 00:00:00 neoplasm of colon Medical Ce nter (procedure) [code = 716892654] Future Scheduled 1958 Sigmoidoscopy [code = [facility] S[facility]oscopy] Medical Cente r Future Scheduled 1958 Screening for malignant [facility] 00:00:00 neoplasm of breast Medical C enter (procedure) [code = 715497938] Future Scheduled 1958 CT Colonography (combo) [facility] 00:00:00 [code = CT Colonography [facility] (combo)] Future Scheduled 1958 Screening for malignant [facility] 00:00:00 neoplasm of colon Medical Ce nter (procedure) [code = 189944076] Future Scheduled 1958 Screening for malignant [facility] 00:00:00 neoplasm of colon Medical Ce nter (procedure) [code = 865724335] Future Scheduled 1958 Screening for malignant [facility] 00:00:00 neoplasm of colon Medical Ce nter (procedure) [code = 134512218] Future Scheduled 1958 Screening for malignant [facility] 00:00:00 neoplasm of colon Medical Ce nter (procedure) [code = 299714211] Future Scheduled 1958 Sigmoidoscopy [code = [facility] S[facility]oscopy] Medical Cente r Future Scheduled 1958 Screening for malignant [facility] 00:00:00 neoplasm of breast Medical C enter (procedure) [code = 279948300] Future Scheduled 1958 Screening for malignant [facility] 00:00:00 neoplasm of colon Medical Ce nter (procedure) [code = 116772634] Future Scheduled 1958 Screening for malignant [facility] 00:00:00 neoplasm of breast Medical C enter (procedure) [code = 768279384] Future Scheduled 1958 CT Colonography (combo) [facility] 00:00:00 [code = CT Colonography [facility] (combo)] Future Scheduled 1958 Screening for malignant [facility] 00:00:00 neoplasm of colon Medical Ce nter (procedure) [code = 713842372] Future Scheduled 1958 Screening for malignant [facility] 00:00:00 neoplasm of colon Medical Ce nter (procedure) [code = 618989425] Future Scheduled 1958 Screening for malignant [facility] 00:00:00 neoplasm of colon Medical Ce nter (procedure) [code = 250813292] Future Scheduled 1958 Screening for malignant [facility] 00:00:00 neoplasm of colon Medical Ce nter (procedure) [code = 845717724] Future Scheduled 1958 Sigmoidoscopy [facility]code = [facility] S[facility]oidoscopy] Medical Cente r Future Scheduled 1958 Screening for malignant [facility] 00:00:00 neoplasm of breast Medical C enter (procedure) [code = 584581652] Future Scheduled 1958 CT Colonography (combo) [facility] 00:00:00 [code = CT Colonography Medi [facility] (combo)] Future Scheduled 1958 Screening for malignant [facility] 00:00:00 neoplasm of colon Medical Ce nter (procedure) [code = 881615193] Future Scheduled 1958 Screening for malignant [facility] 00:00:00 neoplasm of colon Medical Ce nter (procedure) [code = 894020716] Future Scheduled 1958 Screening for malignant [facility] 00:00:00 neoplasm of colon Medical Ce nter (procedure) [code = 930710578] Future Scheduled 1958 Screening for malignant [facility] 00:00:00 neoplasm of colon Medical Ce nter (procedure) [code = 292468716] Future Scheduled 1958 Sigmoidoscopy [code = [facility] 1958 Screening for malignant [facility] 00:00:00 neoplasm of breast Medical C enter (procedure) [code = 708572524] Future Scheduled 1958 CT Colonography (combo) [facility] 00:00:00 [code = CT Colonography [facility] (combo)] Future Scheduled 1958 Screening for malignant [facility] 00:00:00 neoplasm of colon Medical Ce nter (procedure) [code = 355206306] Future Scheduled 1958 Screening for malignant [facility] 00:00:00 neoplasm of colon Medical Ce nter (procedure) [code = 934011030] Future Scheduled 1958 Screening for malignant [facility] 00:00:00 neoplasm of colon Medical Ce nter (procedure) [code = 687999488] Future Scheduled 1958 Screening for malignant [facility] 00:00:00 neoplasm of colon Medical Ce nter (procedure) [code = 231636085] Future Scheduled 1958 Sigmoidoscopy [facility]code [facility] 00[facility] S[facility]oscopy] Medical Cente r Future Scheduled DIABETES: RETINAL EYE [facility] EXAM [code = DIABETES: Hospi jeovany RETINAL EYE EXAM] Future Scheduled DIABETIC FOOT EXAM [facility] [code = DIABETIC FOOT Hospit al EXAM] Future Scheduled URINE MICROALBUMIN [facility] [code = URINE Hospital MICROALBUMIN] Future Scheduled COVID-19 VACCINE (1) [facility] [code = COVID-19 Hospital VACCINE (1)] Future Scheduled Hepatitis C screening [facility] (procedure) [code = Hospital 442723290] Future Scheduled Screening for malignant [facility] neoplasm of cervix Hospital (procedure) [code = 941753478] Future Scheduled BREAST CANCER SCREENING [facility] [code = BREAST CANCER Hospit al SCREENING] Future Scheduled COLONOSCOPY SCREENING [facility] [code = COLONOSCOPY Hospital SCREENING] Future Scheduled SHINGLES VACCINES (#1) [facility] [code = SHINGLES Hospital VACCINES (#1)] Future Scheduled INFLUENZA VACCINE [code [facility] = INFLUENZA VACCINE] Hospita l Encounters Start End Encounter Admission Attending Care Care Encounter Source Date/Time Date/Time Type Type Clinicians Facility Department ID 2021-01-11 Outpatient OTAN, [facility] Surgery [id number] SLE 23:34:53 [facility] 2021-01-11 Outpatient OTAN, [facility] Surgery [id number] SLE 20:32:36 [facility] 2021-01-11 Outpatient OTAN, [facility] Surgery [id number] SLE 13:26:30 [facility] 2022-02-02 2022-02-08 Outpatient OTAN, [facility] [id number] [facility] 12:56:28 12:58:23 [facility]igginsg e of Medicin e 2022-02-02 2022-02-06 Outpatient OTAN, [facility] [id number] [facility] 13:59:35 14:00:59 VINNIE Wigginsg e of Medicin e 2022-02-02 2022-02-02 Outpatient [facility] [id number] [facility] 10:36:00 23:59:00 [facility] 2022-02-02 2022-02-02 [facility] [id number] 10:36:00 14:56:00 Encounter Vinnie Barron Medic [facility] 2022-02-02 2022-02-02 [facility] [id number] 10:36:00 14:56:00 Encounter Vinnie Barron Medic [facility] 2022-02-02 2022-02-02 Outpatient EL OTHMAN, [facility] Surgery [id number] [facility] 10:36:00 14:56:00 [facility] 2022-02-02 2022-02-02 Surgery Otsara, [facility] [id number] 13:00:00 14:30:00 [facility] [place] 2022-02-02 2022-02-02 Surgery Calebmike, [facility] [id number] 13:00:00 14:30:00 [facility] [place] 2022-02-02 2022-02-02 Anesthesia GaJocelin zhu [facility] [id number] [facility] 13:05:00 13:52:00 Event [facility] 2022-02-02 2022-02-02 Anesthesia GaJocelin zhu [facility] [id number] [facility] 13:05:00 13:52:00 Event [facility] 2022-02-02 2022-02-02 Travel [facility] [id number] [facility] 00:00:00 00:00:00 [facility] 2022-02-02 2022-02-02 Travel [facility] [id number] [facility] 00:00:00 00:00:00 [facility] 2022-02-01 2022-02-01 Outpatient EL [facility] [id number] [facility] 10:15:55 10:15:55 2022-02-01 2022-02-01 [facility] [id number] 10:00:00 10:00:00 Encounter [facility] 2022-02-01 2022-02-01 [facility] [id number] 10:00:00 10:00:00 Encounter [facility] 2022-02-01 2022-02-01 Travel [facility] [id number] [facility] 00:00:00 00:00:00 [facility] 2022-02-01 2022-02-01 Travel [facility] [id number] [facility] 00:00:00 00:00:00 [facility] 2022-01-04 2022-01-04 Office JENNIFER OGLESBY [id number] [facility] 12:22:53 15:07:41 Visit VINNIE AMBULATOR [id number] College Y [id number] of [id number] Medi holger 325 e 2021-02-02 2021-02-02 Outpatient JENNIFER OGLESBY [facility] [id number] [facility] 10:22:11 10:28:13 VINNIE Yeung e of Medicin e 2021-01-10 2021-01-10 Outpatient [facility] [id number] [facility] 12:56:42 12:56:42 Colleg e of Medicin e 2019-11-17 2019-11-17 Outpatient [facility] [id number] SLE 00:00:00 00:00:00 2019-08-15 2019-08-15 Outpatient [facility] [id number] SLE 00:00:00 00:00:00 2018-05-24 2018-05-24 Karlos ANTONIO, RAFAT [place] [id number] [place] 10:30:00 10:30:00 t; WILL, Surgery Physi iliana ANTONIO D.O. Specialty ans Patricia SOLIS 2018-04-26 2018-04-26 RAFAT Apod[place] [facility] [id number] [place] 10:15:00 10:15:00 t; WILL, Physi Gray EstradaOIggy SOLIS D.O. 2018-04-19 2018-04-19 Karlos ANTONIO, RAFAT [facility] [id number] [place] 10:00:00 10:00:00 t; WILL, Physi Gray EstradaOIggy SOLIS D.O. 2018-03-27 2018-03-27 Karlos ANTONIO, RAFAT [place]TP [id number] [place] 10:30:00 10:30:00 t; WILL, Physi ci Gray ANTONIOOGray CoreyOIggy 2018-03-22 2018-03-22 RAFAT [place] UTP [id number] [place] 10:30:00 10:30:00 t; WILL, Physi iliana ANTONIO D.O. ans Gray SOLISO. 2018-03-06 2018-03-06 Appointlindsey MACK, [facility] UTP [id number] [place] 08:30:00 08:30:00 t; CYRIL MACK M.D. P hysici HANI, M.D. ans 2018-02-14 2018-02-14 Appointlindsey ANTONIO, U[place]TP [id number] [place] 08:15:00 08:15:00 t; WILL Physi iliana ANTONIO D.O. ans Gray SOLISO. 2018-01-11 2018-01-11 Appointlindsey MARISELA, UTP UTP [id number] [place] 10:30:00 10:30:00 t; WILL Physi iliana ANTONIO D.O. ans Aylin SOLIS. Results Test Description Test Time Test Comments Results Result Comments Source POC-Glucose meter 2022-02-02 14:00:02 Test Item Value Reference Range Interpretation Comme nts POC-Glucose Meter (test code = 100 mg/dL 70-110 : TESTED AT [address] 1538) [facility], [facility] 30: Copy Reader/Techni wendy ID = [id number] for Josh, Shemek e Lab Interpretation (test code = Normal 36485-4) [facility]-Glucose [id number] 14:00:02 Test Item Value Reference Range Interpretation Comments POC-Glucose Meter (test 100 mg/dL 70-110 : TE STED AT [facility] code = 1538) [address] [place] [address], [facility] 30: Copy Reader/Techni wendy ID = [id number] for Josh, Shemek e Lab Interpretation (test Normal code = 69253-9) [facility]-Glucose [id number] 14:00:02 Test Item Value Reference Range Interpretation Comments POC-Glucose Meter (test 100 mg/dL 70-110 : TE STED AT [facility] code = 1538) [address] [place] [address], [facility] 30: Copy Reader/Techni wendy ID = [id number] for Josh, Shemek e Lab Interpretation (test Normal code = 90017-8) [facility]-GLUCOSE [id number] 14:00:02 Test Item Value Reference Range Interpretation Comments POC-GLUCOSE METER 100 mg/dL 70-110 : TESTED A T [facility] 6720 (BEAKER) (test code = [facility], 153) [address]: Copy Reader/Techni wendy ID = [id number] for Denisha Smith POCT-GLUCOSE [id number] 12:19:11 Test Item Value Reference Range Interpretation Comments POC-GLUCOSE METER 120 mg/dL 70-110 H : TESTED A T [facility] 6720 (BEAKER) (test code = [facility], 153) 22273: Copy Reader/Techni wendy ID = [id number] for JOSE LUIS Cortez HEMOGLOBIN [id number] 09:28:00 Test Item Value Reference Range Interpretation Comments HEMOGLOBIN A1C (BEAKER) (test code = 8.1 % 4.3-6.1 H 368) POCT-GLUCOSE [id number] 07:44:00 Test Item Value Reference Range Interpretation Comments POC-GLUCOSE METER 130 mg/dL 70-110 H : TESTED A T [facility] 6720 (BEAKER) (test code = [facility], 153) 62837: Copy Reader/Techni wendy ID = [id number] for KRISSY FINNEGAN COMPREHENSIVE METABOLIC [id number] 06:55:00 Test Item Value Reference Range Interpretation [...] S NOT APPLICABLE FOR DIALYSIS PATIEN TS. Copy Reader ID - PIAYA LCBC W/PLT COUNT & AUTO [id number] 05:55:00 Test Item Value Reference Range Interpretation [...] PERCENT (BEAKER) (test code = 2801) POCT-GLUCOSE [id number] 21:17:00 Test Item Value Reference Range Interpretation Comments POC-GLUCOSE METER 255 mg/dL 70-110 H : [facility] (BEAKER) (test code = [facility] [employer], 1538) 06125: Copy Reader/Techni wendy ID = [id number] for ABHILASH MARTI [id number] 11:22:39INTRA OP IMAGINGReason for exam:->abnormal imaging Fluoroscopic unit utilized for a procedure performed in the OR. No interpretation was requested. Refer to the operative report for findings. Refer to PACS for patient radiation dose information.POCT-GLUCOSE [id number] 07:45:00 Test Item Value Reference Range Interpretation Comments POC-GLUCOSE METER 155 mg/dL 70-110 H : [facility] (BEAKER) (test code = [facility], 1538) 23017: Copy Reader/Techni wendy ID = [id number] for ED WARDS, KATIE TISSUE [id number] 09:36:00Surgical Pathology Report Case: [id number] Authorizing Provider: Vinnie Oglesby Collected: 08/26/2019 12:43 PM MD Beatrice [facility] Endoscopy Received: 08/26/2019 01:56 PM Services Pathologist: Isac Cummins MD Specimen: Biopsy, Gastric, gastric polyp A. STOMACH, POLYP, BIOPSY: - ANTRAL MUCOSA WITH POLYPOID FOVEOLAR HYPERPLASIA - NEGATIVE FOR HELICOBACTER PYLORI ORGANISMS BY WARTHIN STARRY STAIN - NEGATIVE FOR INTESTINAL METAPLASIA, DYSPLASIA, MALIGNANCY Signing Pathologist Direct Phone Line: [phone] signed by Isac Cummins MD on 08/27/2019 at 9:36 [id number]: upper endoscopy, biopsyPre and postop diagnosis: acute pancreatitis A. Biopsy, gastricA. Received in formalin labeled with the patient's name, accession number and "gastric biopsy", with the additional description "gastric polyp" is one irregular winston-pink piece of mucosa l-covered soft tissue measuring 0.4 x 0.3 x [...] and negative controls when available are evaluated Immunohistochemistrytechnical testing was performed at [facility], Pathology Laboratory where it was [...] to perform high complexity clinical laboratory testing.POCT-GLUCOSE [id number] 13:26:00 Test Item Value Reference Range Interpretation Comments POC-GLUCOSE METER 122 mg/dL 70-110 H : TESTED A T [employer] [facility] ([employer]) (test code = TER[place], 1538) 58321: Copy Reader/Techni wendy ID = [id number] for Ilda Bailey POCT-GLUCOSE [id number] 11:40:00 Test Item Value Reference Range Interpretation Comments POC-GLUCOSE METER 137 mg/dL 70-110 H : TESTED A T [facility] 6720 ([employer]) (test code = TERRI ZAID[place], 1538) 33225: Copy Reader/Techni wendy ID = [id number] for ED KATIE WOODWARD COLON SEGMENT RESEC.NOT [id number] 19:21:00 RUN DATE: 11/14/18 [facility] PAGE 1 RUN TIME: 810 Specimen Inquiry RUN USER: INTERFACE -PATIENT: DAISY CARRION LOC: [facility] #: [id number] AGE/SX: 58/F ROOM: [facility] RE11/11/18REG DR:Betito Collazo MD : 56 BED: A DIS: 11/13/18 STATUS: DIS Sharla TLOC: SPEC #: [id number] RECD: 11/11/18 STATUS: SOUJer REQ #: [id number] CRISTINO: 11/11/18- SUBM DR: Betito Collazo MD ENTERED: 11/11/18 SP TYPE: COLONR NIDIA DR: ORDERED: LEVEL V SURGICA CODES: [id number] - COLON, NOS PROCEDURES: LEVEL V SURGICA (Incomplete) TISSUES: COLON, NOS - RECTOSIGMOID DIVERTICULITIS CLINICAL HISTORY 58 year old, diverticulitis (wpd) FINAL DIAGNOSIS Designated "rectosigmoid diverticulitis", segmental resection: - diverticular disease with peridiverticular fibrosis - intestinal rings - unremarkable CPT code(s): 58220 pkg/wpd 11/13/18 GROSS DESCRIPTION ANATOMIC SOURCE OF TISSUE (per Requisition): Rectosigmoid diverticulitis The specimen is received in a formalin-filled container, labeled with the patient's name anddesignated "rectosigmoid diverticulitis". The specimen consists of three portions of intestinal tissue and two separate winston unremarkable intestinal rings. The intestinal rings measure 1.5 and 3.0 cm. One section from each piece is submitted in A1. The two smaller portions of intestinal mucosa measure 1.6 and 5.0 cm and contains unremarkable mucosa and surrounding tissue. Patent Solicitor sections are submitted in A2. The largest segment of intestine measures 14.7 cm in length and ranging from 3 - 3.5 cm in diameter with attached yellow fatty tissue. The serosal surface contains pink fibrous adhesions but no discrete solid mass. Examination of the intestinal wall reveals numerous diverticula rangingfrom 0.5 - CONTINUED ON NEXT PAGE RUN DATE: 11/14/18 [facility] PAGE 2 RUN TIME: 810 Specimen Inquiry RUN USER: INTERFACE SPEC #: [id number] PATIENT: DAISY CARRION #[id number] (Continued)-------- ---- GROSS DESCRIPTION (Continued) 1.0 cm and containing green-brown fecal material. No discrete perforation or discoloration in those areas are noted. Patent Solicitor sections of the intestine with the diverticula are submitted in A3 - A8. Examination of attached adipose tissue reveals no discrete lymph nodes. Patent Solicitor sections are submitted in A9 - A16. /wpd 11/11/18 @ 7176 MICROSCOPIC DESCRIPTION The specimen consists of a segment of rectosigmoid colon containing numerous diverticula which extend through the muscularis into the rectosigmoid adipose tissue. Foci of fibrosis are present adjacent to the diverticula. No granulomas, dysplasia or neoplasia are identified. The intestinal rings are unremarkable. abram/wpandreea 11/13/18 Signed Deena Storm 11/13/181920 END OF REPORT [id number] 07:10:00 Test Item Value Reference Range Interpretation Comments GLUBED (test code = GLUBED) 180 mg/dL 65-110 H COMPREHENSIVE METABOLIC [id number] 05:48:00 Test Item Value Reference Range Interpretation [...] 106 units/L 46-116 N code = ALKP) [id number] 05:48:00 Test Item Value Reference Range Interpretation Comments MAGNESIUM (test code = MAG) 1.8 mg/dL 1.8-2.4 N CBC W/AUTO [id number] 04:49:00 Test Item Value Reference Range Interpretation [...] REQUIRED (test NORMAL NORMAL code = PLTMR) [id number] 21:57:00 Test Item Value Reference Range Interpretation Comments GLUBED (test code = GLUBED) 278 mg/dL 65-110 H [id number] 17:26:00 Test Item Value Reference Range Interpretation Comments GLUBED (test code = 292 mg/dL 65-110 H Hypoglyc emic Protoco GLUBED) [id number] 12:11:00 Test Item Value Reference Range Interpretation Comments GLUBED (test code = GLUBED) 131 mg/dL 65-110 H [id number] 07:23:00 Test Item Value Reference Range Interpretation Comments GLUBED (test code = GLUBED) 110 mg/dL 65-110 N CHEMISTRY 7 [id number] 05:23:00 Test Item Value Reference Range Interpretation [...] code = CA) 7.8 mg/dL 8.4-10.2 L [id number] 05:23:00 Test Item Value Reference Range Interpretation Comments MAGNESIUM (test code = MAG) 1.8 mg/dL 1.8-2.4 N CBC W/AUTO [id number] 05:19:00 Test Item Value Reference Range Interpretation [...] REQUIRED (test NORMAL NORMAL code = PLTMR) [id number] 22:07:00 Test Item Value Reference Range Interpretation Comments GLUBED (test code = GLUBED) 171 mg/dL 65-110 H [id number] 17:41:00 Test Item Value Reference Range Interpretation Comments GLUBED (test code = GLUBED) 157 mg/dL 65-110 H [id number] 13:26:00 Test Item Value Reference Range Interpretation Comments GLUBED (test code = GLUBED) 154 mg/dL 65-110 H [id number] 06:54:00 Test Item Value Reference Range Interpretation Comments GLUBED (test code = GLUBED) 143 mg/dL 65-110 H CHEMISTRY 7 [id number] 13:07:00 Test Item Value Reference Range Interpretation [...] = CA) 8.5 mg/dL 8.4-10.2 N HGB [id number] 12:51:00 Test Item Value Reference Range Interpretation Comments HEMOGLOBIN (test code = HGB) 13.6 g/dL 10.7-13.9 N HEMATOCRIT (test code = HCT) 40.3 % 32.1-42.1 N
[2022-02-10] MEDS ORDERED: PROMETHAZINE INJ 25 MG/ML AMP ONE (12:53)
[2022-02-10] MEDS ORDERED: FENTANYL CITR 100 MCG/2 ML ONE (12:53)
[2022-02-10] MEDS ORDERED: FAMOTIDINE 20 MG/2 ML VIAL IV ONE (12:54)
[2022-02-10] MEDS ORDERED: NA CHLORIDE 0.9% 1,000 ML ONE (12:54)
[2022-02-10 13:03] LABS: Absolute Lymphocytes (CBC) 2.3 K/uL (0.7-4.9); Hematocrit 44.2 % (36.0-45.0); Lymphocytes % 25.9 % (15.3-44.8); MCV 87.2 fL (80-100); MPV 7.5 fL (7.6-11.3); RBC Red Blood Cell Count 5.07 M/uL (3.86-4.86)
[2022-02-10 13:15] LABS: Albumin 3.8 g/dL (3.4-5.0); Potassium 3.7 mmol/L (3.5-5.1)
[2022-02-10 13:18] LABS: Bilirubin Total 0.3 mg/dL (0.2-1.0); Protein, Total 8.5 g/dL (6.4-8.2)
--- NOTE | 2022-02-10 13:44 | RAD REPORT ---
EXAM DESCRIPTION: CT - Abdomen Pelvis W Contrast - 02/10/2022 1:31 pm CLINICAL HISTORY: Abdominal pain COMPARISON: 2020 TECHNIQUE: Computed axial tomography of the abdomen pelvis was obtained. 100 cc Isovue-300 was admin istered intravenously. Oral contrast was not requested which limits evaluation of bowel and appendix All CT scans are performed using dose optimization technique as appropriate and may include automated exposure control or mA/KV adjustment according to patient size. FINDINGS: Fatty liver. Cholecystectomy The spleen, pancreas, adrenals and kidneys are unremarkable. Normal appendix. Sigmoidectomy. Diverticula stem from the colon without evidence of diverticulitis. No obstruction. Hysterectomy. No adnexal mass IMPRESSION: No acute abnormality is displayed.
--- NOTE | 2022-02-10 14:55 | ER ---
Nurse's Notes [facility] Name: Robyn Carrion Age: 61 yrs Sex: Female : 1960 Arrival Date: 02/10/2022 Time: 11:50 Bed 19 Private MD: Berry Suero F Diagnosis: Upper abdominal pain, unspecified Presentation: 02/10 12:24 Chief complaint: Patient states: LUQ pain, sharp and radiates to back; stated has been vg1 seeing Dr Santiago and stated "I believe I have Pancreatitis". Coronavirus screen: Vaccine status: Patient reports receiving the 2nd dose of the covid vaccine. Client denies travel out of the [place] in the last 14 days. Ebola Screen: Patient negative for fever greater than or equal to 101.5 degrees Fahrenheit, and additional compatible Ebola Virus Disease symptoms. Initial Sepsis Screen: Does the patient meet any 2 criteria? No. Patient's initial sepsis screen is negative. Does the patient have a suspected source of infection? No. Patient's initial sepsis screen is negative. Risk Assessment: Do you want to hurt yourself or someone else? Patient reports no desire to harm self or others. Onset of symptoms was October 2021. 12:24 Method Of Arrival: Ambulatory vg1 12:24 Acuity: DARA 3 vg1 Triage Assessment: 12:28 General: Appears uncomfortable, Behavior is calm, cooperative. Pain: Complains of pain vg1 in posterior aspect of left lateral abdomen and left upper quadrant Pain currently is 10 out of 10 on a pain scale. GI: Abdomen is round non-distended, Reports upper abdominal pain, diarrhea, nausea, vomiting. Historical: - Allergies: 12:28 Codeine; vg1 12:28 HYDROCODONE; vg1 - PMHx: 12:28 fernando esophageal disease; cricopharyngeal spasm; Diabetes - NIDDM; Hernia; High vg1 Cholesterol; Hypertensive disorder; Pancreatitis; vericose vein; - PSHx: 12:28 bladder prolapse SX; Cholecystectomy; colon removal; ercp; hernia repair; hysterectomy; vg1 - Immunization history:: Client reports receiving the 2nd dose of the Covid vaccine. - Social history:: Smoking status: Patient denies any tobacco usage or history of. Screenin:40 Abuse screen: Denies threats or abuse. Denies injuries from another. Nutritional mb8 screening: No deficits noted. Tuberculosis screening: No symptoms or risk factors identified. Fall Risk None identified. Assessment: 12:39 GI: Bowel sounds present X 4 quads. Abd is soft X 4 quads Reports diarrhea, nausea, mb8 vomiting, Patient currently denies bloody stool, rectal bleeding. 12:39 Cardiovascular: Denies chest pain, shortness of breath. : Denies burning with mb8 urination, cramping urinary frequency. Vital Signs: 12:24 BP 163 / 103; Pulse 87; Resp 16; Temp 97.7; Pulse Ox 100% ; Weight 68.04 kg; Height 5 vg1 ft. 2 in. (157.48 cm); Pain 10/10; 13:42 BP 176 / 86; Pulse 70; Resp 14; Pulse Ox 99% on R/A; Pain 4/10; mb8 13:56 BP 165 / 80; mb8 12:24 Body Mass Index 27.44 (68.04 kg, 157.48 cm) vg1 ED Course: 11:50 Patient arrived in ED. mr 11:50 Berry Suero MD is Private Physician. mr 12:28 Triage completed. vg1 12:28 Arm band placed on. vg1 12:32 Chris Garcia, HAIDER is Primary Nurse. mb8 12:37 Felicia Obrien FNP-C is PHCP. snw 12:37 Antony Ely MD is Attending Physician. snw 12:40 Patient has correct armband on for positive identification. Placed in gown. Bed in low mb8 position. Call light in reach. Side rails up X2. Client placed on continuous cardiac and pulse oximetry monitoring. NIBP monitoring applied. 12:40 No provider procedures requiring assistance completed. mb8 12:50 Inserted saline lock: 20 gauge in right forearm, using aseptic technique. Blood bp collected. 13:33 CT Abd/Pelvis - IV Contrast Only In Process Unspecified. EDMS 14:53 Hipolito Marquez MD is Referral Physician. snw 15:22 IV discontinued, intact, bleeding controlled, No redness/swelling at site. Pressure mb8 dressing applied. Administered Medications: 13:00 Drug: NS 0.9% 1000 ml Route: IV; Rate: 1 bolus; Site: right forearm; bp 15:00 Follow up: Response: No adverse reaction; IV Status: Completed infusion mb8 13:00 Drug: Pepcid (famotidine) 20 mg Route: IVP; Site: right hand; bp 14:04 Follow up: Response: No adverse reaction; Pain is decreased mb8 13:00 Drug: Phenergan (promethazine) 25 mg Route: IM; Site: right deltoid; bp 14:04 Follow up: Response: No adverse reaction; Nausea is decreased; RASS: Alert and Calm (0) mb8 13:00 Drug: fentaNYL (PF) 50 mcg Route: IVP; Site: right forearm; bp 14:04 Follow up: Response: No adverse reaction; Pain is decreased; RASS: Alert and Calm (0) mb8 15:12 Drug: Valium (diazepam) 5 mg Route: IVP; Site: right forearm; mb8 15:27 Follow up: Response: Medication administered at discharge. mb8 15:28 Follow up: Response: RASS: Alert and Calm (0) mb8 Medication: 12:39 VIS not applicable for this client. mb8 Outcome: 14:55 Discharge ordered by . gigi 15:27 Discharged to home ambulatory, with friend. mb8 15:27 Condition: stable 15:27 Discharge instructions given to patient, Instructed on discharge instructions, follow up and referral plans. medication usage, Demonstrated understanding of instructions, follow-up care, medications, Prescriptions given X 3. 15:28 Patient left the ED. mb8 Signatures: Dispatcher [employer] EDMS Felicia Obrien, BEE-C TUFTING MACHINE OPERATOR SINGLE NEEDLE-Sammi JovanDelisa Brian, RN RN Shakira Everett RN RN 1 Chris Garcia RN RN mb8 Corrections: (The following items were deleted from the chart) 13:03 12:50 Inserted saline lock: 22 gauge in right forearm, using aseptic technique. Blood bp collected. bp
--- NOTE | 2022-02-10 14:56 | EDPHYS ---
Physician Documentation [facility] Name: Robyn Carrion Age: 61 yrs Sex: Female : 1960 Arrival Date: 02/10/2022 Time: 11:50 Bed 19 Private MD: Berry Suero F ED Physician Antony Ely HPI: 02/10 14:58 This 61 yrs old Female presents to ER via Ambulatory with complaints of snw Abdominal Pain. 14:58 The patient presents with abdominal pain in the upper abdomen. Onset: The snw symptoms/episode began/occurred gradually, and became worse and became persistent. The symptoms radiate to left back. The symptoms are described as achy, sharp. Severity of pain: At its worst the pain was moderate severe. The patient has experienced similar episodes in the past, chronically. 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 Historical: - Allergies: 12:28 Codeine; vg1 12:28 HYDROCODONE; vg1 - PMHx: 12:28 fernando esophageal disease; cricopharyngeal spasm; Diabetes - NIDDM; Hernia; High vg1 Cholesterol; Hypertensive disorder; Pancreatitis; vericose vein; - PSHx: 12:28 bladder prolapse SX; Cholecystectomy; colon removal; ercp; hernia repair; hysterectomy; vg1 - Immunization history:: Client reports receiving the 2nd dose of the Covid vaccine. - Social history:: Smoking status: Patient denies any tobacco usage or history of. ROS: 14:52 Constitutional: Negative for fever, chills, and weight loss, Eyes: Negative for injury, snw pain, redness, and discharge, ENT: Negative for injury, pain, and discharge, Neck: Negative for injury, pain, and swelling, Cardiovascular: Negative for chest pain, palpitations, and edema, Respiratory: Negative for shortness of breath, cough, wheezing, and pleuritic chest pain, Back: Negative for injury and pain, : Negative for injury, bleeding, discharge, and swelling, MS/Extremity: Negative for injury and deformity, Skin: Negative for injury, rash, and discoloration, Neuro: Negative for headache, weakness, numbness, tingling, and seizure. 14:52 Abdomen/GI: Positive for abdominal pain, nausea and vomiting, abdominal cramps, abdominal distension. Exam: 14:50 Head/Face: Normocephalic, atraumatic. Eyes: Pupils equal round and reactive to light, snw extra-ocular motions intact. Lids and lashes normal. Conjunctiva and sclera are non-icteric and not injected. Cornea within normal limits. Periorbital areas with no swelling, redness, or edema. ENT: Nares patent. No nasal discharge, no septal abnormalities noted. Tympanic membranes are normal and external auditory canals are clear. Oropharynx with no redness, swelling, or masses, exudates, or evidence of obstruction, uvula midline. Mucous membranes moist. Neck: Trachea midline, no thyromegaly or masses palpated, and no cervical lymphadenopathy. Supple, full range of motion without nuchal rigidity, or vertebral point tenderness. No Meningismus. Chest/axilla: Normal chest wall appearance and motion. Nontender with no deformity. No lesions are appreciated. Cardiovascular: Regular rate and rhythm with a normal S1 and S2. No gallops, murmurs, or rubs. Normal PMI, no JVD. No pulse deficits. Respiratory: Lungs have equal breath sounds bilaterally, clear to auscultation and percussion. No rales, rhonchi or wheezes noted. No increased work of breathing, no retractions or nasal flaring. 14:50 Skin: Warm, dry with normal turgor. Normal color with no rashes, no lesions, and no evidence of cellulitis. MS/ Extremity: Pulses equal, no cyanosis. Neurovascular intact. Full, normal range of motion. Neuro: Awake and alert, GCS 15, oriented to person, place, time, and situation. Cranial nerves II-XII grossly intact. Motor strength 5/5 in all extremities. Sensory grossly intact. Cerebellar exam normal. Normal gait. 14:50 Constitutional: The patient appears alert, awake, restless, uncomfortable. 14:50 Abdomen/GI: Inspection: distension, Bowel sounds: normal, Palpation: moderate abdominal tenderness, in the epigastric area, right upper quadrant and left upper quadrant, Indicators: rocking back and forth with upper abd discomfort. Pt is seeing GI here and [facility]. Vital Signs: 12:24 BP 163 / 103; Pulse 87; Resp 16; Temp 97.7; Pulse Ox 100% ; Weight 68.04 kg; Height 5 vg1 ft. 2 in. (157.48 cm); Pain 10/10; 13:42 BP 176 / 86; Pulse 70; Resp 14; Pulse Ox 99% on R/A; Pain 4/10; mb8 13:56 BP 165 / 80; mb8 12:24 Body Mass Index 27.44 (68.04 kg, 157.48 cm) vg1 MDM: 12:42 Patient medically screened. snw 14:57 Data reviewed: vital signs, nurses notes. Data interpreted: Pulse oximetry: on room air snw is 99 %. Interpretation: normal. Counseling: I had a detailed discussion with the patient and/or guardian regarding: the historical points, exam findings, and any diagnostic results supporting the discharge/admit diagnosis, the presence of at least one elevated blood pressure reading (>120/80) during this emergency department visit, lab results, radiology results, the need for outpatient follow up, for definitive care. Special discussion: Based on the patient's Hx, exam, and Dx evaluation, there is no indication for emergent surgery or inpatient Tx. It is understood by the patient/guardian that if the Sx's persist or worsen they need to return immediately for re-evaluation. I have referred the patient to see his PCP for further evaluation of high blood pressure. Based on the history and exam findings, there is no indication for further emergent testing or inpatient evaluation. I discussed with the patient/guardian the need to see the cnc operator machinist for further evaluation of the symptoms. 02/10 12:36 Order name: CBC with Diff; Complete Time: 13:34 snw 02/10 12:36 Order name: CMP; Complete Time: 13:34 snw 02/10 12:36 Order name: Lipase; Complete Time: 13:34 snw 02/10 12:36 Order name: CT Abd/Pelvis - IV Contrast Only; Complete Time: 13:51 snw 02/10 12:36 Order name: IV Saline Lock; Complete Time: 12:50 snw 02/10 12:36 Order name: Labs collected and sent; Complete Time: 12:50 snw Administered Medications: 13:00 Drug: NS 0.9% 1000 ml Route: IV; Rate: 1 bolus; Site: right forearm; bp 15:00 Follow up: Response: No adverse reaction; IV Status: Completed infusion mb8 13:00 Drug: Pepcid (famotidine) 20 mg Route: IVP; Site: right hand; bp 14:04 Follow up: Response: No adverse reaction; Pain is decreased mb8 13:00 Drug: Phenergan (promethazine) 25 mg Route: IM; Site: right deltoid; bp 14:04 Follow up: Response: No adverse reaction; Nausea is decreased; RASS: Alert and Calm (0) mb8 13:00 Drug: fentaNYL (PF) 50 mcg Route: IVP; Site: right forearm; bp 14:04 Follow up: Response: No adverse reaction; Pain is decreased; RASS: Alert and Calm (0) mb8 15:12 Drug: Valium (diazepam) 5 mg Route: IVP; Site: right forearm; mb8 15:27 Follow up: Response: Medication administered at discharge. mb8 15:28 Follow up: Response: RASS: Alert and Calm (0) mb8 Disposition: 17:35 Co-signature as Attending Physician, Antony Ely MD. rn Disposition Summary: 02/10/22 14:55 Discharge Ordered Location: Home snw Condition: Stable snw Diagnosis - Upper abdominal pain, unspecified snw Followup: snw - With: Hipolito Marquez MD - When: Today - Reason: Recheck today's complaints, Continuance of care, Re-evaluation by your physician Discharge Instructions: - Discharge Summary Sheet snw - Abdominal Pain, Adult snw - Fat and Cholesterol Restricted Eating Plan snw - Rehydration, Adult snw Forms: - Medication Reconciliation Form snw - Thank You Letter snw - Antibiotic Education snw - Prescription Opioid Use snw Prescriptions: - Carafate 1 gram Oral Tablet - take 2 tablets by ORAL route every 12 hours take on an empty stomach, beginning snw on waking and last dose at bedtime; 100 tablet; Refills: 0, Product Selection Permitted - promethazine 25 mg Oral Tablet - take 1 tablet by ORAL route every 6 hours As needed; 20 tablet; Refills: 0, snw Product Selection Permitted - dicyclomine 20 mg Oral Tablet - take 1 tablet by ORAL route 3 times per day; 20 tablet; Refills: 0, Product snw Selection Permitted Signatures: Dispatcher [employer] EDFelicia Jeffries, AIRPLANE CAPTAIN-C AIRPLANE CAPTAIN-Csnw Antony Ely MD MD rn Peltier, Brian, RN RN bp Shakira Childers, RN RN vg1 Chris Garcia, RN RN mb8
[2022-02-10] MEDS ORDERED: DIAZEPAM 10 MG/2 ML INJ SYRINGE ONE (15:11)
[2022-02-10 16:21] VITALS: TEMP 97.7
[2022-02-10 16:28] VITALS: O2SAT 99
[2022-02-10 16:29] VITALS: BP 165/80
== END 2022-02-10 15:28 | disposition home or self-care (01) ==
LOC: ER 11:47
DX: R10.10 Upper abdominal pain, unspecified (principal); I10 Essential (primary) hypertension; Z88.5 Allergy status to narcotic agent
CPT/HCPCS: 85025; 36415; 83690; 80053; 74177; 96372; 99284; Q9967; J2550; J3360; J3010; J7030

== ENCOUNTER 2022-02-11 11:58 | Emergency (ER) | payer OTHER ==
--- OUTSIDE RECORDS SUMMARY | 2022-02-11 12:02 | XMS REPORT | Continuity of Care Document ---
:1960 Author Organization [facility] t Address [facility] Brennan [address] [place] [id number] Care Team Providers Name Role Phone CARLOS BALDERRAMA Primary Care Physician Unavailable VINNIE OGLESBY Attending Clinician Unavailable VINNIE OGLESBY Attending Clinician Unavailable Shabbir EPPS, Vinnie Barron Attending Clinician [phone] Shyanne EPPS, Jocelin Givens Attending Clinician WILL ANTONIO D.O. Attending Clinician Unavailable CYRIL MACK M.D. Attending Clinician Unavailable VINNIE OGLESBY Admitting Clinician Unavailable Payers Payer Name Policy Type Policy Number Effective Date Expiration Date S mickey MEDICARE A B [id number] 2001 00:00:00 MEDICAID [facility] [id number] 2017 00:00:00 MEDICARE PART A [id number] \\T\\ B - MEDICARE [facility]-MEDICAID - [id number] MEDICAID Problems Condition Condition Condition Status Onset Resolution Last Treating Co mments Source Name Details Category Date Date Treatment Clinician Date Biliary Biliary Disease [facility] [address] [place] [address] 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[facility] diabetes diabetes 4-15 Colleg e mellitus mellitus 00:00: 00 Medicin e Hyperchole Hyperchole Disease Active [facility] sterolemia sterolemia 4-15 [facility] 00:00: Medicin e Pancreatit Pancreatit Disease Active [facility] is is 4-15 [facility] 00:00: Medicin e History of History of Disease Active [facility] diverticul diverticul 4-15 [facility] itis itis 00:00: Medicin e Follow up Follow up [facility] No known Disease Metho di active active [facility] problems problems Hospit [facility] Hyperlipid Hyperlipid Problem [facility] Hypertensi Hypertensi Problem Active [facility] Diabetes Diabetes Problem [facility] Allergies, Adverse [...] 7-31 [facility] [place] Hydrocod Propensi Active Method i one ty to 7-26 st adverse 00:00: Hospita reaction 00 l s to drug Family History Family Member Diagnosis Comments Start Date Stop Date Source Natural father Diabetes [facility] Natural father Hypertension [facility] mother Diabetes [facility] Natural mother Heart disease [facility] Natural mother Hy[facility] Unknown Family Family history of Other [facility] Member diabetes mellitus Unknown Family Family history of Other [facility] Member hypertension Unknown Family Family history of Other [place] Physicians Member Heart problem Social History Social Habit Start Date Stop Date Quantity Comments Source History of tobacco Passive smoker [facility] use of Medicine History SDOH [facility] Alcohol Std Drinks Medica Center History [facility] Alcohol Binge Medical [place] ter Exposure to 2022-01-23 2022-02-[address] [facility] SARS-CoV-2 (event) 00:00:00 11:41:00 Medica [facility] Alcohol intake 2022-02-02 2022-02-02 [facility]00 [facility] alcohol [facility] Center (finding) History [facility] 2019-11-17 2019-11-[address] [facility] Alcohol Comment 00:00:00 00:00:00 Medical C enter Tobacco Comment 2019-08-15 2019-08-15 quit [address] [facility] 00:00:00 00:00:00 [facility] Cigarettes smoked 2019-08-15 2019-08-[address] [facility] current (pack per 00:00:00 00:00:00 Medical Center day) - Reported Cigarette 2019-08-15 2019-08-[address] [facility] pack-years 00:00:00 00:00:00 Medical Center Tobacco use and 2019-08-15 2019-08-[address] [facility] [address] [facility] exposure 00:00:00 00:00:00 Medical Center History [facility] 2019-08-15 2019-08-[address] [facility] Alcohol Frequency 00:00:00 00:00:00 Medical Center Sex Assigned At [address] [facility] 00:00:00 00:00:00 Medical Center Smoking Status Start Date Stop Date Source Never smoked tobacco [facility] Former smoker 2019-08-15 00:00:00 2019-08-15 00:00:[address] [facility] [facility] Medications Ordered Filled Start Stop [...] daily as needed . lipase/prot 2021-04 Yes [id number] Take [facility] ease/amylas 0-27 [id number] 36,000 [facility] e (CREON 14:58: 3D Units [...] 40 MG 14:58: daily. Medical tablet 49 [place] insulin 2021-04 Yes QD Inject [facility] glargine 0-27 subcutaneo [facility] (LANTUS) 14:58: usly Medical 100 unit/mL 49 nightly Cente r injection Use as directed . lisinopriL 2021-04 Yes 10mg QD Take [address] (PRINIVIL,Z 0-27 by mouth Luke s ESTRIL) 10 14:58: daily Medica l MG tablet 49 Night. [place] lubiproston 2021-04 Yes 8ug Take [address] e (AMITIZA) 0-27 by mouth 2 [facility] 8 MCG 14:58: (two) Medical capsule 49 times Center daily as needed . lipase/prot 2021-04 Yes [id number] Take [facility]/amylas 0-27 [id number] 36,000 [facility] e (CREON 14:58: 3D Units [...] daily as needed . lipase/prot 2021-04 Yes [id number] Take [facility]amylas 0-27 [id number] 36,000 [facility] (CREON 14:58: 3D Units [...] daily as needed . lipase/prot 2021-04 Yes [id number] Take [facility]/amylas 0-27 [id number] 36,000 [facility] (CREON 14:58: 3D Units [...] sarah 44 :00 (six) Center hours. dicyclomine 2021-04- No 20mg Take 20 mg [...] :00 (six) Center hours. lipase/prot 2021-04 Yes [id number] Q.[id number] Take [facility]as 0-26 [id number] 36,000 [facility] (CREON 09:59: 3D Units [...] daily Medica l MG tablet 15 Night. [place] lubiproston 2021-04 Yes 8ug Take [address] [facility] (AMITIZA) 0-26 by mouth 2 [facility] k[facility] 8 MCG 09:59: (two) Medical capsule 15 times Center daily as needed . [place] [facility] [facility] (AMITIZA) 01-04 [place] 8 MCG CAPS 13:11: 00:00 of 58 :00 Medicin e atorvastati Yes [facility] n (LIPITOR) 01-04 [place] 40 MG 13:11: of tablet 56 Medicin e dicyclomine Yes [facility] (BENTYL) 20 01-04 [place] MG tablet 13:11: of 56 Medicin e insulin Yes [facility] glargine 01-04 [facility] (LANTUS) 13:11: of 100 UNIT/ML 56 Medicin injection e lisinopril Yes [facility] (PRINIVIL, 01-04 [place] ZESTRIL) 10 13:11: of MG tablet 56 Medicin e pantoprazol Yes [facility] e 01-04 [place] (PROTONIX) 13:11: of 40 MG 56 Medicin tablet e sucralfate Yes [facility] (CARAFATE) 01-04 [place] 1 g tablet 13:11: of 56 Medicin e rifAXIMin Yes 550mg Take 550 [place] 550 MG TABS - mg by [place] 00:00: mouth 3 of 00 times Medicin daily. e atorvastati Yes 40mg QD Take 40 mg [...] daily as needed . lipase/prot 2020-0 Yes [id number] Take [facility] 8-12 [id number] 36,000 [facility] (CREON 13:03: 3D Units [...] daily as needed . lipase/prot 2020-0 Yes [id number] Q.[id number] Take [facility] 8-12 [id number] 36,000 [facility] (CREON 13:03: 3D Units [...] Medical tablet 21 times Center daily. tramadol 2019-0 2021- No TK 1 T PO [place] (ULTRAM) 50 5-28 12- Q 6 H PRN Co llege MG tablet 00:00: 00:00 FOR 5 DAYS o f 00 :00 Medicin e CREON [id number] 2019-0 Yes TK 2 CS PO Eric units CPEP 2-11 WITH EACH Cristino ege 00:00: MEAL AND 1 of 00 C PO FOR Medicin EACH SNACK e promethazin 2019-0 2021- No TK 1 T PO Eric e 2-10 15- Q 6 H College (PHENERGAN) 00:00: 00:00 of 25 MG 00 :00 Medicin tablet e No known 2018-04 No No known Metho di medications 2-[address] 13:23: s Hospita 40 l No known 2018- No No known Metho di medications 2-[address] 13:23: s Hospita 40 l No known 2019- No No known Metho di medications 2-[address] 13:23: s Hospita 40 l No known 2019- No No known Metho di medications 2-[address] 13:23: s Hospita 40 l No known 2019- No No known Metho di medications 2-[address] 13:23: s Hospita 40 l No known 2019- No No known Metho di medications 2-31 [...] kg Systolic blood 2022-01-04 18:10:00 136 mm[Hg] [facility] pressure Medicine Diastolic blood 2022-01-04 18:10:00 78 mm[Hg] [facility] pressure Medicine Respiratory rate 2022-01-04 18:10:00 16 /min [facility] Body height 2022-01-04 18:10:00 157.5 cm [facility] Body weight 2022-01-04 18:10:00 69.582 kg [facility] BMI 2022-01-04 18:10:00 28.06 kg/m2 [facility] HEIGHT 2019-10-20 00:00:00 157.5 cm WEIGHT 2019-10-20 00:00:00 69.355 kg HEIGHT 2019-08-13 00:00:00 157.5 cm WEIGHT 2019-08-13 00:00:00 70.716 kg Systolic blood 2022-02-02 14:30:00 158 mm[Hg] [facility] Diastolic blood 2022-02-02 14:30:00 66 mm[Hg] [facility] Heart rate 2022-02-02 14:30:00 60 /min [facility] Body temperature 2022-02-02 14:30:00 36.44 Alysia [facility] Respiratory rate 2022-02-02 14:30:00 18 /min [facility] Oxygen saturation in 2022-02-02 14:30:00 100 /min [facility] Arterial blood by Medical Ce nter Pulse oximetry Body height 2022-02-02 11:25:00 157.5 cm [facility] Body weight 2022-02-02 11:25:00 68.448 kg [facility] BMI 2022-02-02 11:25:00 27.60 kg/m2 [facility] Body height 2022-02-01 10:01:00 157.5 cm [facility] Body weight 2022-02-01 10:01:00 69.4 kg [facility] BMI 2022-02-01 10:01:00 27.98 kg/m2 [facility] Height 2018-05-24 10:25:00 62 [in_us] [facility] [...] cians Heart Rate 2018-04-26 10:21:00 73 /min [facility]i [facility] Procedures Procedure Date / Time Performing Source Performed Clinician REPORT OF PROCEDURE - ENDOSCOPY 2022-02-[address] [facility] URL 14:02:35 [facility] POCT-GLUCOSE METER 2022-02-[address] [facility] 13:48:00 [facility] ESOPHAGOGASTRODUODENOSCOPY, WITH 2022-02-02 Vinnie Oglesby [facility] 13:00:[address] [facility] [address] ESOPHAGOGASTRODUODENOSCOPY, WITH 2022-02-[address] [facility] ENDOSCOPIC US 13:00:00 [facility] ESOPHAGOGASTRODUODENOSCOPY 2022-02-02 Caleb[facility]innie mckeon [facility] 13:00:00 [facility] ULTRASOUND, UPPER GI TRACT, 2022-02-02 CalebVinnie mckeon [facility] ENDOSCOPIC, WITH FINE NEEDLE 13:00:00 [facility] ASPIRATION ESOPHAGOGASTRODUODENOSCOPY, [facility] MUCOSAL RESECTION 13:00:00 [facility] POCT-GLUCOSE METER [facility]02[facility] 12:05:00 [facility] PANCREATIC ELASTASE - FECAL 2022-01-13 [facility] 16:03:00 of Medicine Plan of Care Planned Activity Planned Date Details Comments Source Future Scheduled 2022-02-09 HEPATITIS B VACCINES (1 [facility] 15:54:46 of 3 - 3-dose series) Hospit al [code = HEPATITIS B VACCINES (1 of 3 - 3-dose series)] Future Scheduled 2022-02-09 COVID-19 VACCINE (#1) [facility] 15:54:46 [code = COVID-19 Hospital VACCINE (#1)] Future Scheduled 2022-02-09 Screening for malignant [facility] 15:54:46 neoplasm of cervix Hospital (procedure) [code = 032907604] Future Scheduled 2022-02-09 BREAST CANCER SCREENING [facility] 15:54:46 [code = BREAST CANCER Hospit al SCREENING] Future Scheduled 2022-02-09 COLONOSCOPY SCREENING [facility] 15:54:46 [code = COLONOSCOPY Hospital SCREENING] Future Scheduled 2022-02-09 SHINGLES VACCINES (1 of [facility] 15:54:46 2) [code = SHINGLES Hospital VACCINES (1 of 2)] Future Scheduled 2022-02-09 INFLUENZA VACCINE [code [facility] 15:54:46 = INFLUENZA VACCINE] Hospita l Future Scheduled 2022-02-09 HEPATITIS B VACCINES (1 [facility] 15:54:46 of 3 - 3-dose series) Hospit al [code = HEPATITIS B VACCINES (1 of 3 - 3-dose series)] Future Scheduled 2022-02-09 COVID-19 VACCINE (#1) [facility] 15:54:46 [code = COVID-19 Hospital VACCINE (#1)] Future Scheduled 2022-02-09 Screening for malignant [facility] 15:54:46 neoplasm of cervix Hospital (procedure) [code = 453109816] Future Scheduled 2022-02-09 BREAST CANCER SCREENING [facility] 15:54:46 [code = BREAST CANCER Hospit al SCREENING] Future Scheduled 2022-02-09 COLONOSCOPY SCREENING [facility] 15:54:46 [code = COLONOSCOPY Hospital SCREENING] Future Scheduled 2022-02-09 SHINGLES VACCINES (1 of [facility] 15:54:46 2) [code = SHINGLES Hospital VACCINES (1 of 2)] Future Scheduled 2022-02-09 INFLUENZA VACCINE [code [facility] 15:54:46 = INFLUENZA VACCINE] Hospita l Future Scheduled 2022-02-06 HEPATITIS B VACCINES (1 [facility] 13:59:44 of 3 - 3-dose series) Hospit al [code = HEPATITIS B VACCINES (1 of 3 - 3-dose series)] Future Scheduled 2022-02-06 COVID-19 VACCINE (#1) [facility] 13:59:44 [code = COVID-19 Hospital VACCINE (#1)] Future Scheduled 2022-02-06 Screening for malignant [facility] 13:59:44 neoplasm of cervix Hospital (procedure) [code = 240902908] Future Scheduled 2022-02-06 BREAST CANCER SCREENING [facility] 13:59:44 [code = BREAST CANCER Hospit al SCREENING] Future Scheduled 2022-02-06 COLONOSCOPY SCREENING [facility] 13:59:44 [code = COLONOSCOPY Hospital SCREENING] Future Scheduled 2022-02-06 SHINGLES VACCINES (1 of [facility] 13:59:44 2) [code = SHINGLES Hospital VACCINES (1 of 2)] Future Scheduled 2022-02-06 INFLUENZA VACCINE [code [facility] 13:59:44 = INFLUENZA VACCINE] Hospita l Future Scheduled 2022-02-06 HEPATITIS B VACCINES (1 [facility] 13:59:44 of 3 - 3-dose series) Hospit al [code = HEPATITIS B VACCINES (1 of 3 - 3-dose series)] Future Scheduled 2022-02-06 COVID-19 VACCINE (#1) [facility] 13:59:44 [code = COVID-19 Hospital VACCINE (#1)] Future Scheduled 2022-02-06 Screening for malignant [facility] 13:59:44 neoplasm of cervix Hospital (procedure) [code = 336760076] Future Scheduled 2022-02-06 BREAST CANCER SCREENING [facility] 13:59:44 [code = BREAST CANCER Hospit al SCREENING] Future Scheduled 2022-02-06 COLONOSCOPY SCREENING [facility] 13:59:44 [code = COLONOSCOPY Hospital SCREENING] Future Scheduled 2022-02-06 SHINGLES VACCINES (1 of [facility] 13:59:44 2) [code = SHINGLES Hospital VACCINES (1 of 2)] Future Scheduled 2022-02-06 INFLUENZA VACCINE [code [facility] 13:59:44 = INFLUENZA VACCINE] Hospita l Future Scheduled 2022-01-14 Screening for malignant [facility] Test 13:58:24 neoplasm of colon of Medicin e (procedure) [code = 451437621] Future Scheduled 2022-01-14 Screening for malignant [facility] Test 13:58:24 neoplasm of breast of Medici ne (procedure) [code = 269385314] Future Scheduled 2022-01-14 COVID-19 Vaccine (#1) [facility] Test 13:58:24 [code = COVID-19 of Medicine Vaccine (#1)] Future Scheduled 2022-01-14 Pneumococcal Combined [facility] Test 13:58:24 (1 - PCV) [code = of Medicin e Pneumococcal Combined (1 - PCV)] Future Scheduled 2022-01-14 TETANUS SHOT (ADULT) [facility] Test 13:58:24 [code = TETANUS SHOT of Medi cine (ADULT)] Future Scheduled 2022-01-14 Diabetic foot [facility] Col lege Test 13:58:24 examination of Medicine (regime/therapy) [code = 521544511] Future Scheduled 2022-01-14 ANNUAL DIABETIC [facility] C [facility]lege Test 13:58:24 RETINOPATHY SCREENING of Med icine [code = ANNUAL DIABETIC RETINOPATHY SCREENING] Future Scheduled 2022-01-14 BMI FOLLOW UP PLAN [facility] Test 13:58:24 [code = BMI FOLLOW UP of Med icine PLAN] Future Scheduled 2022-01-14 Hepatitis C screening [facility] Test 13:58:24 (procedure) [code = of Medic ine 215833017] Future Scheduled 2022-01-14 Human immunodeficiency [facility] Test 13:58:24 virus screening of Medicine (procedure) [code = 443608715] Future Scheduled 2022-01-14 Screening for malignant [facility] Test 13:58:24 neoplasm of cervix of Medici ne (procedure) [code = 880101201] Future Scheduled 2022-01-14 MEDICARE AWV (Initial) [facility] Test 13:58:24 [code = MEDICARE AWV of Medi cine (Initial)] Future Scheduled 2022-01-14 ZOSTER VACCINE (1 of 2) [facility] Test 13:58:24 [code = ZOSTER VACCINE of Me dicine (1 of 2)] Future Scheduled 2022-01-14 FLU VACCINE > 6 MONTHS B [facility] Test 13:58:24 [code = FLU VACCINE > 6 of M edicine MONTHS] Future Scheduled 2022-01-12 INFLUENZA VACCINE [code [facility] 15:05:35 = INFLUENZA VACCINE] Hospita l Future Scheduled 2022-01-12 HEPATITIS B VACCINES (1 [facility] 15:05:35 of 3 - 3-dose series) Hospit al [code = HEPATITIS B VACCINES (1 of 3 - 3-dose series)] Future Scheduled 2022-01-12 COVID-19 VACCINE (#1) [facility] 15:05:35 [code = COVID-19 Hospital VACCINE (#1)] Future Scheduled 2022-01-12 Screening for malignant [facility] 15:05:35 neoplasm of cervix Hospital (procedure) [code = 501690470] Future Scheduled 2022-01-12 BREAST CANCER SCREENING [facility] 15:05:35 [code = BREAST CANCER Hospit al SCREENING] Future Scheduled 2022-01-12 COLONOSCOPY SCREENING [facility] 15:05:35 [code = COLONOSCOPY Hospital SCREENING] Future Scheduled 2022-01-12 SHINGLES VACCINES (1 of [facility] 15:05:35 2) [code = SHINGLES Hospital VACCINES (1 of 2)] Future Scheduled 2022-01-12 INFLUENZA VACCINE [code [facility] 15:05:35 = INFLUENZA VACCINE] Hospita l Future Scheduled 2022-01-12 HEPATITIS B VACCINES (1 [facility] 15:05:35 of 3 - 3-dose series) Hospit al [code = HEPATITIS B VACCINES (1 of 3 - 3-dose series)] Future Scheduled 2022-01-12 COVID-19 VACCINE (#1) [facility] 15:05:35 [code = COVID-19 Hospital VACCINE (#1)] Future Scheduled 2022-01-12 Screening for malignant [facility] 15:05:35 neoplasm of cervix Hospital (procedure) [code = 922642177] Future Scheduled 2022-01-12 BREAST CANCER SCREENING [facility] 15:05:35 [code = BREAST CANCER Hospit al SCREENING] Future Scheduled 2022-01-12 COLONOSCOPY SCREENING [facility] 15:05:35 [code = COLONOSCOPY Hospital SCREENING] Future Scheduled 2022-01-12 SHINGLES VACCINES (1 of [facility] 15:05:35 2) [code = SHINGLES Hospital VACCINES (1 of 2)] Future Scheduled 2022-01-04 PANCREATIC ELASTASE - Ordered: [facility] [employer] [employer] Test 13:40:45 FECAL [code = 05247-0] 01/04/2022 of Me dicine Future Scheduled 2022-01-04 EGD W/EMR - GI DEPT 1 Occurrences [facility] Test 13:40:45 [code = NOCPT] starting of Medicine 01/04/2022 until 07/04/2022 Future Scheduled 2022-01-04 EUS WITH MAC, UPPER 1 Occurrences [facility] Test 13:40:45 WITH FNA [code = NOCPT] [...] [facility] Test 00:00:00 (Season Ended) [code = [facility] INFLUENZA VACCINE (Season Ended)] Future Scheduled 2020-04-[address] [facility] Test 00:00:00 (12+) [code = Medical Center DEPRESSION SCREENING (12+)] Future Scheduled 2008 SHINGLES VACCINES ([address] [facility] Test 00:00:00 2) [code = SHINGLES Medical Center VACCINES (1 of 2)] Future Scheduled 2008 SHINGLES VACCINES ([address] [facility] Test 00:00:00 2) [code = SHINGLES [facility] VACCINES (1 of 2)] Future Scheduled 2008 SHINGLES VACCINES ([address] [facility] Test 00:00:00 2) [code = SHINGLES Medical Center VACCINES (1 of 2)] Future Scheduled 2008 SHINGLES VACCINES ([address] [facility] Test 00:00:00 2) [code = SHINGLES [facility] VACCINES (1 of 2)] Future Scheduled 2008 SHINGLES VACCINES ([address] [facility] Test 00:00:00 2) [code = SHINGLES [facility] VACCINES (1 of 2)] Future Scheduled 2008 SHINGLES VACCINES ([address] [facility] Test 00:00:00 2) [code = SHINGLES [facility] VACCINES (1 of 2)] Future Scheduled 2008 SHINGLES VACCINES ([address] [facility] Test 00:00:00 2) [code = SHINGLES [facility] VACCINES (1 of 2)] Future Scheduled 2003-09-07 Lipid panel (procedure) [facility] Test 00:00:00 [code = 01428173] Medical Ce nter Future Scheduled 2003-09-07 Lipid panel (procedure) [facility] Test 00:00:00 [code = 14686403] Medical Ce nter Future Scheduled 2003-09-07 Lipid panel (procedure) [facility] Test 00:00:00 [code = 91668777] Medical Ce nter Future Scheduled 2003-09-07 Lipid panel (procedure) [facility] Test 00:00:00 [code = 23288192] Medical Ce nter Future Scheduled 2003-09-07 Lipid panel (procedure) [facility] Test 00:00:00 [code = 13036611] Medical Ce nter Future Scheduled 2003-09-07 Lipid panel (procedure) [facility] Test 00:00:00 [code = 48800877] Medical Ce nter Future Scheduled 2003-09-07 Lipid panel (procedure) [facility] Test 00:00:00 [code = 78872492] Medical Ce nter Future Scheduled 2002-10-08 MEDICARE [...] cervix Medical C enter (procedure) [code = 980480183] Future Scheduled 1979-09-07 Screening for malignant [facility] Test 00:00:00 neoplasm of cervix Medical C enter (procedure) [code = 655946996] Future Scheduled 1979-09-07 Screening for malignant [facility] Test 00:00:00 neoplasm of cervix Medical C enter (procedure) [code = 909496907] Future Scheduled 1979-09-07 Screening for malignant [facility] Test 00:00:00 neoplasm of cervix Medical C enter (procedure) [code = 793854501] Future Scheduled 1979-09-07 Screening for malignant [facility] Test 00:00:00 neoplasm of cervix Medical C enter (procedure) [code = 151217909] Future Scheduled 1979-09-07 Screening for malignant [facility] Test 00:00:00 neoplasm of cervix Medical C enter (procedure) [code = 429829461] Future Scheduled 1979-09-07 Screening for malignant [facility] Test 00:00:00 neoplasm of cervix Medical C enter (procedure) [code = 942089558] Future Scheduled 1977 DTAP/TDAP/TD VACCINES CH I [...] breast Medical C enter (procedure) [code = 378391196] Future Scheduled 1958 CT Colonography (combo) [facility] Test 00:00:00 [code = CT Colonography [facility] (combo)] Future Scheduled 1958 Screening for malignant [facility] Test 00:00:00 neoplasm of colon Medical Ce nter (procedure) [code = 006575075] Future Scheduled 1958 Screening for malignant [facility] Test 00:00:00 neoplasm of colon Medical Ce nter (procedure) [code = 554800317] Future Scheduled 1958 Screening for malignant [facility] Test 00:00:00 neoplasm of colon Medical Ce nter (procedure) [code = 841659865] Future Scheduled 1958 Screening for malignant [facility] Test 00:00:00 neoplasm of colon Medical Ce nter (procedure) [code = 197668934] Future Scheduled 1960 Sigmoidoscopy [code = [facility] S[facility]oscopy] Medical Cente r Future Scheduled 1958 Screening for malignant [facility] Test 00:00:00 neoplasm of breast Medical C enter (procedure) [code = 023345326] Future Scheduled 1958 CT Colonography (combo) [facility] Test 00:00:00 [code = CT Colonography Medi [facility] (combo)] Future Scheduled 1958 Screening for malignant [facility] Test 00:00:00 neoplasm of colon Medical Ce nter (procedure) [code = 415444481] Future Scheduled 1958 Screening for malignant [facility] Test 00:00:00 neoplasm of colon Medical Ce nter (procedure) [code = 424777256] Future Scheduled 1958 Screening for malignant [facility] Test 00:00:00 neoplasm of colon Medical Ce nter (procedure) [code = 049254074] Future Scheduled 1958 Screening for malignant [facility] Test 00:00:00 neoplasm of colon Medical Ce nter (procedure) [code = 471936259] Future Scheduled 1960 Sigmoidoscopy [code = [facility] Sigmoidoscopy] Medical Cente r Future Scheduled 1958 Screening for malignant [facility] Test 00:00:00 neoplasm of breast Medical C enter (procedure) [code = 977212218] Future Scheduled 1958 Screening for malignant [facility] Test 00:00:00 neoplasm of breast Medical C enter (procedure) [code = 099812376] Future Scheduled 1958 CT Colonography (combo) [facility] Test 00:00:00 [code = CT Colonography [facility] (combo)] Future Scheduled 1958 Screening for malignant [facility] Test 00:00:00 neoplasm of colon Medical Ce nter (procedure) [code = 259799176] Future Scheduled 1958 Screening for malignant [facility] 00:00:00 neoplasm of colon Medical Ce nter (procedure) [code = 407330301] Future Scheduled 1958 Screening for malignant [facility] 00:00:00 neoplasm of colon Medical Ce nter (procedure) [code = 477806174] Future Scheduled 1958 Screening for malignant [facility] 00:00:00 neoplasm of colon Medical Ce nter (procedure) [code = 145796560] Future Scheduled 1958 Screening for malignant [facility] 00:00:00 neoplasm of colon Medical Ce nter (procedure) [code = 282659554] Future Scheduled 1960 Sigmoidoscopy [facility]code = [facility] Future Scheduled 1958 Screening for malignant [facility] 00:00:00 neoplasm of breast Medical C enter (procedure) [code = 722025083] Future Scheduled 1958 CT Colonography (combo) [facility] 00:00:00 [code = CT Colonography [facility] (combo)] Future Scheduled 1958 Screening for malignant [facility] 00:00:00 neoplasm of colon Medical Ce nter (procedure) [code = 497277611] Future Scheduled 1958 Screening for malignant [facility] 00:00:00 neoplasm of colon Medical Ce nter (procedure) [code = 273041783] Future Scheduled 1958 Screening for malignant [facility] 00:00:00 neoplasm of colon Medical Ce nter (procedure) [code = 906648368] Future Scheduled 1958 Screening for malignant [facility] 00:00:00 neoplasm of colon Medical Ce nter (procedure) [code = 296936999] Future Scheduled 1958 Sigmoidoscopy [facility]code [facility] 1958 Screening for malignant [facility] 00:00:00 neoplasm of breast Medical C enter (procedure) [code = 305450347] Future Scheduled 1958 CT Colonography (combo) [facility] 00:00:00 [code = CT Colonography [facility] (combo)] Future Scheduled 1958 Screening for malignant [facility] 00:00:00 neoplasm of colon Medical Ce nter (procedure) [code = 957733900] Future Scheduled 1958 Screening for malignant [facility] 00:00:00 neoplasm of colon Medical Ce nter (procedure) [code = 788816419] Future Scheduled 1958 Screening for malignant [facility] 00:00:00 neoplasm of colon Medical Ce nter (procedure) [code = 680991814] Future Scheduled 1958 Screening for malignant [facility] 00:00:00 neoplasm of colon Medical Ce nter (procedure) [code = 340598321] Future Scheduled 1958 Sigmoidoscopy [facility]code [facility]] [facility] Future Scheduled 1958 Screening for malignant [facility] 00:00:00 neoplasm of breast Medical C enter (procedure) [code = 022749457] Future Scheduled 1958 CT Colonography (combo) [facility] 00:00:00 [code = CT Colonography [facility] (combo)] Future Scheduled 1958 Screening for malignant [facility] 00:00:00 neoplasm of colon Medical Ce nter (procedure) [code = 145025750] Future Scheduled 1958 Screening for malignant [facility] 00:00:00 neoplasm of colon Medical Ce nter (procedure) [code = 304650531] Future Scheduled 1958 Screening for malignant [facility] 00:00:00 neoplasm of colon Medical Ce nter (procedure) [code = 288644017] Future Scheduled 1958 Screening for malignant [facility] 00:00:00 neoplasm of colon Medical Ce nter (procedure) [code = 555723134] Future Scheduled 1958 Sigmoidoscopy [facility]code [facility]] [facility] Future Scheduled DIABETES: RETINAL EYE [facility] [...] [facility] (procedure[facility] [code = Hospital 848240200] Future Scheduled Screening for malignant [facility] neoplasm of cervix Hospital (procedure) [code = 747346542] Future Scheduled BREAST CANCER SCREENING [facility] [code = BREAST CANCER Hospit al SCREENING] Future Scheduled COLONOSCOPY SCREENING [facility] [code = COLONOSCOPY Hospital SCREENING] Future Scheduled SHINGLES VACCINES (#1) M ethodist Test [code = SHINGLES Hospital VACCINES (#1)] Future Scheduled INFLUENZA VACCINE [code [facility] = INFLUENZA VACCINE] Hospita l Encounters Start End Encounter Admission Attending Care Care Encounter Source Date/Time Date/Time Type Type Clinicians Facility Department ID 2021-01-11 Outpatient OTAAMIR, [facility] Surgery [id number] SLE 23:34:53 [facility] 2021-01-11 Outpatient OTTINAAN, [facility] Surgery [id number] SLE 20:32:36 [facility] 2021-01-11 Outpatient OTTINAAN, [facility] Surgery [id number] SLE 13:26:30 [facility] 2022-02-02 2022-02-08 Outpatient OTTINAAN, [facility] [id number] [facility] 12:56:28 12:58:23 [facility] 2022-02-02 2022-02-06 Outpatient OTTINAAN, [facility] [id number] [facility] 13:59:35 14:00:59 [facility] 2022-02-02 2022-02-02 Outpatient [facility] [id number] [facility] 10:36:00 23:59:00 [facility] 2022-02-02 2022-02-02 [facility], [facility] [id number] 10:36:00 14:56:00 Encounter Vinnie Maik leighann Calebtinamike [facility] [place] 2022-02-02 2022-02-02 [facility], [facility] [id number] 10:36:00 14:56:00 Encounter Vinnie [facility] [place] 2022-02-02 2022-02-02 Outpatient KIMBERLI OTAAMIR, [facility] Surgery [id number] SLE 10:36:00 14:56:00 [facility] 2022-02-02 2022-02-02 Surgery [facility], [facility] [id number] 13:00:00 14:30:00 Vinnie [facility] [place] 2022-02-02 2022-02-02 Surgery [facility], [facility] [id number] 13:00:00 14:30:00 Vinnie Oglesby [facility] 2022-02-02 2022-02-02 Anesthesia Jocelin Kimble [facility] [id number] [facility] 13:05:00 13:52:00 Event [facility] 2022-02-02 2022-02-02 Anesthesia Jocelin Kimble [facility] [id number] [facility] 13:05:00 13:52:00 Event [facility] 2022-02-02 2022-02-02 Travel [facility] [id number] [facility] 00:00:00 00:00:00 [facility] 2022-02-02 2022-02-02 Travel [facility] [id number] [facility] 00:[facility]00 00:00:00 [facility] 2022-02-01 2022-02-01 Outpatient [facility] [id number] [facility] 10:15:55 10:15:55 2022-02-01 2022-02-01 [facility] [id number] 10:00:00 10:00:00 Encounter [facility] 2022-02-01 2022-02-01 [facility] [id number] 10:00:00 10:00:00 Encounter [facility] 2022-02-01 2022-02-01 Travel [facility] [id number] [facility] 00:00:00 00:00:00 [facility] 2022-02-01 2022-02-01 Travel [facility] [id number] [facility] 00:00:00 00:00:00 [facility] 2022-01-04 2022-01-04 Office JENNIFER OGLESBY [id number] [facility] 12:22:53 15:07:41 Visit VINNIE PAZ [id number] College Y [id number] of [id number] [facility] holger 325 e 2021-02-02 2021-02-02 Outpatient JENNIFER OGLESBY [facility] [id number] [facility] 10:22:11 10:28:13 VINNIE Yeung e of Medicin e 2021-01-10 2021-01-10 Outpatient [facility] [id number] [facility] 12:56:42 12:56:42 [facility] e 2019-11-17 2019-11-17 Outpatient [facility] [id number] [facility] 00:00:00 00:00:00 2019-08-15 2019-08-15 Outpatient [facility] [id number] [facility] 00:00:00 00:00:00 2018-05-24 2018-05-24 Karlos ANTONIO, [facility] [place] [id number] [place] 10:30:00 10:30:00 t; WILL, Surgery Physi ci MARISELA, D.O. Specialty ans WILL, D.O. 2018-04-26 2018-04-26 Karlos ANTONIO, [facility] UTP [id number] [place] 10:15:00 10:15:00 t; WILL, Physi ci FELINSKI, D.O. ans WILL, D.O. 2018-04-19 2018-04-19 Karlos ANTONIO, [facility] UTP [id number] [place] 10:00:00 10:00:00 t; WILL, Physi ci FELINSKI, D.O. ans WILL, D.O. 2018-03-27 2018-03-27 Karlos ANTONIO, [facility] UTP [id number] [place] 10:30:00 10:30:00 t; WILL, Physi ci FELINSKI, D.O. ans WILL, D.O. 2018-03-22 2018-03-22 Appointlindsey ANTONIO, [facility] UTP [id number] [place] 10:30:00 10:30:00 t; WILL, Physi ci FELINSKI, D.O. ans WILL, D.O. 2018-03-06 2018-03-06 Appointlindsey MACK [facility] UTP [id number] [place] 08:30:00 08:30:00 t; CYRIL MACK M.D. P hysici HANI, M.D. ans 2018-02-14 2018-02-14 Appointlindsey ANTONIO, [facility] UTP [id number] [place] 08:15:00 08:15:00 t; WILL, Physi ci FELINSKI, D.O. ans WILL, D.O. 2018-01-11 2018-01-11 Johnlindsey ESTRADASATURNINO, [facility] [id number] [place] 10:30:00 10:30:00 Paulie Galvez D.O. ans MELISSA, D.O. Results Test Description Test Time Test Comments Results Result Comments Source POC-Glucose meter 2022-02-02 14:00:02 Test Item Value Reference Range Interpretation Comme nts POC-Glucose Meter (test code = 100 mg/dL 70-110 : TESTED AT [facility] [address] [facility] 1538) [facility], [facility] 30: Observation Nurse/Techni wendy ID = [id number] for Josh, Shemek e Lab Interpretation (test code = Normal 10553-6) [facility]-Glucose [id number] 14:00:02 Test Item Value Reference Range Interpretation Comments POC-Glucose Meter (test 100 mg/dL 70-110 : TE STED AT [facility] code = 1538) [address] [place] [address], [facility] 30: Observation Nurse/Techni wendy ID = [id number] for Josh, Shemek e Lab Interpretation (test Normal code = 87271-8) [facility]-Glucose [id number] 14:00:02 Test Item Value Reference Range Interpretation Comments POC-Glucose Meter (test 100 mg/dL 70-110 : TE STED AT [facility] code = 1538) [address] [place] [address], [facility] 30: Observation Nurse/Techni wendy ID = [id number] for Josh, Shemek e Lab Interpretation (test Normal code = 52955-0) [facility]-Glucose [id number] 14:00:02 Test Item Value Reference Range Interpretation Comments POC-Glucose Meter (test 100 mg/dL 70-110 : TE STED AT [facility] code = 1538) [address] [place] [address], [facility] 30: Observation Nurse/Techni wendy ID = [id number] for Josh, Shemek e Lab Interpretation (test Normal code = 22534-9) [facility]-GLUCOSE [id number] 14:00:02 Test Item Value Reference Range Interpretation Comments POC-GLUCOSE METER 100 mg/dL 70-110 : TESTED A T [facility] 6720 (BEAKER) (test code = [facility], 1538) [address]: Observation Nurse/Techni wendy ID = [id number] for Denisha Smith POCT-GLUCOSE [id number] 12:19:11 Test Item Value Reference Range Interpretation Comments POC-GLUCOSE METER 120 mg/dL 70-110 H : TESTED A T [facility] 6720 (BEAKER) (test code = [facility], 1538) 95054: Observation Nurse/Techni wendy ID = [id number] for JOSE LUIS Cortez HEMOGLOBIN [id number] 09:28:00 Test Item Value Reference Range Interpretation Comments HEMOGLOBIN A1C (BEAKER) (test code = 8.1 % 4.3-6.1 H 368) POCT-GLUCOSE [id number] 07:44:00 Test Item Value Reference Range Interpretation Comments POC-GLUCOSE METER 130 mg/dL 70-110 H : TESTED A T [facility] 6720 (BEAKER) (test code = [facility], 1538) 88211: Observation Nurse/Techni wendy ID = [id number] for KRISSY FINNEGAN COMPREHENSIVE METABOLIC [id number] 06:55:00 Test Item Value Reference Range Interpretation [...] S NOT APPLICABLE FOR DIALYSIS PATIEN TS. Observation Nurse ID - PIAYA LCBC W/PLT COUNT & AUTO [id number] 05:55:00 Test Item Value Reference Range Interpretation [...] PERCENT (BEAKER) (test code = 2801) POCT-GLUCOSE [id number] 21:17:00 Test Item Value Reference Range Interpretation Comments POC-GLUCOSE METER 255 mg/dL 70-110 H : [facility] (BEAKER) (test code = [facility], 1538) 81599: Observation Nurse/Techni wendy ID = [id number] for ES ABHILASH MAJOR [id number] 11:22:39INTRA OP IMAGINGReason for exam:->abnormal imaging Fluoroscopic unit utilized for a procedure performed in the OR. No interpretation was requested. Refer to the operative report for findings. Refer to PACS for patient radiation dose information.POCT-GLUCOSE [id number] 07:45:00 Test Item Value Reference Range Interpretation Comments POC-GLUCOSE METER 155 mg/dL 70-110 H : [facility] (BEAKER) (test code = [facility], 1538) 12544: Observation Nurse/Techni wendy ID = [id number] for ED WARDS, KATIE TISSUE [id number] 09:36:00Surgical Pathology Report Case: [id number] Authorizing Provider: Vinnie Oglesby Collected: 08/26/2019 12:43 PM MD Beatrice Ordering Location: [facility] Endoscopy Received: 08/26/2019 01:56 PM Misa winston Pathologist: Isac Cummins MD Specimen: Biopsy, Gastric, gastric polyp A. STOMACH, POLYP, BIOPSY: - ANTRAL MUCOSA WITH POLYPOID FOVEOLAR HYPERPLASIA - NEGATIVE FOR HELICOBACTER PYLORI ORGANISMS BY WARTHIN STARRY STAIN - NEGATIVE FOR INTESTINAL METAPLASIA, DYSPLASIA, MALIGNANCY Signing Pathologist Direct Phone Line: [phone] signed by Isac Cummins MD on 08/27/2019at 9:36 [id number]: upper endoscopy, biopsyPre and postop diagnosis: acute [...] run alongside of the patients sample show appropriatestaining. Internal positive and negative controls when available are evaluated Immunohistochemistry technical testing was performed at [facility], Pathology Laboratory where it was developed and its performance characteristics were determined. It has not been cleared or approved by the U.S. Food and Drug Administration. The FDA has determined that such clearance or approval is not necessary. The test is used for clinical purposes. It should not be regarded as investigational orfor research. This laboratory is certified under the Clinical Laboratory Improvement Amendments of 1988 (CLIA-88) as qualified to perform high complexity clinical laboratory testing.POCT-GLUCOSE [id number] 13:26:00 Test Item Value Reference Range Interpretation Comments POC-GLUCOSE METER 122 mg/dL 70-110 H : TESTED A T [facility] 6720 (ComputeNext) (test code = [employer] [facility], 1538) 49455: Observation Nurse/Techni wendy ID = [id number] for Angela Ilda louis POCT-GLUCOSE [id number] 11:40:00 Test Item Value Reference Range Interpretation Comments POC-GLUCOSE METER 137 mg/dL 70-110 H : TESTED A T [facility] 6720 (ComputeNext) (test code = [employer] [facility], 153) 73355: Observation Nurse/Techni wendy ID = [id number] for ED KATIE WOODWARD COLON SEGMENT RESEC.NOT [id number] 19:21:00 RUN DATE: 11/14/18 [facility] PAGE 1 RUN TIME: 810 Specimen Inquiry RUN USER: INTERFACE -PATIENT: DAISY CARRION LOC: [facility]I U #: [id number] AGE/SX: 58/F ROOM: [facility] RE11/11/18REG DR: Betito Collazo MD : 56 BED: A DIS: 11/13/18 STATUS: DIS Sharla TLOC: SPEC #: [id number] RECD: 11/11/18 STATUS: BRITTNY JIANG #: [id number] CRISTINO: 11/11/18- SUBM DR: Betito Collazo MD ENTERED: 11/11/18 SPTYPE: COLONR NIDIA RICHARDSON: ORDERED: LEVEL V SURGICA CODES: E63761 - COLON, NOS PROCEDURES: LEVEL V SURGICA (Incomplete) TISSUES: COLON, NOS - RECTOSIGMOID DIVERTICULITIS CLINICAL HISTORY 58 year old, diverticulitis (wpd) FINAL DIAGNOSIS Designated "rectosigmoid diverticulitis", segmental resection: - diverticular disease with peridiverticular fibrosis - intestinal rings - unremarkable CPT code(s): 53042 pkg/wpd 11/13/18 GROSS DESCRIPTION ANATOMIC SOURCE OF [...] and contains unremarkable mucosa and surrounding tissue. Roll Changer sections are submitted in A2. The largest segment of intestine measures 14.7 cm in length and ranging from 3 - 3.5 cm in diameter with attached yellow fatty tissue. The serosal surface contains pink fibrous adhesionsbut no discrete solid mass. Examination of the intestinal wall reveals numerous diverticula ranging from 0.5 - CONTINUED ON NEXT PAGE RUN DATE: 11/14/18 [facility] PAGE 2 RUN TIME: 810 SpecimenInquiry RUN USER: INTERFACE SPEC #: [id number] PATIENT: DAISY CARRION #[id number] (Continued)--------- --- GROSS DESCRIPTION (Continued) 1.0 cm and containing green-brown fecal material. No discrete perforation or discoloration in those areas are noted. Roll Changer sections of the intestine with the diverticula are submitted in A3 - A8. Examination of attached adipose tissue reveals no discrete lymph nodes. Roll Changer sections are submitted in A9 - A16. /wpd 11/11/18 @ 4810 MICROSCOPIC DESCRIPTION The specimen consists of a segment of rectosigmoid colon containing numerous diverticula which extend through the muscularis into the rectosigmoid adipose tissue. Foci of fibrosis are present adjacent to the diverticula. No granulomas, dysplasia or neoplasia are identified. The intestinal rings are unremarkable. pkg/wpd 11/13/18 Signed Deena Storm 11/13/181920 END OF REPORT [id number] 07:10:00 Test Item Value Reference Range Interpretation Comments GLUBED (test code = GLUBED) 180 mg/dL 65-110 H COMPREHENSIVE METABOLIC [id number] 05:48:00 Test Item Value Reference Range Interpretation [...] 106 units/L 46-116 N code = ALKP) [id number] 05:48:00 Test Item Value Reference Range Interpretation Comments MAGNESIUM (test code = MAG) 1.8 mg/dL 1.8-2.4 N CBC W/AUTO [id number] 04:49:00 Test Item Value Reference Range Interpretation [...] REQUIRED (test NORMAL NORMAL code = PLTMR) [id number] 21:57:00 Test Item Value Reference Range Interpretation Comments GLUBED (test code = GLUBED) 278 mg/dL 65-110 H [id number] 17:26:00 Test Item Value Reference Range Interpretation Comments GLUBED (test code = 292 mg/dL 65-110 H Hypoglyc emic Protoco GLUBED) [id number] 12:11:00 Test Item Value Reference Range Interpretation Comments GLUBED (test code = GLUBED) 131 mg/dL 65-110 H [id number] 07:23:00 Test Item Value Reference Range Interpretation Comments GLUBED (test code = GLUBED) 110 mg/dL 65-110 N CHEMISTRY 7 [id number] 05:23:00 Test Item Value Reference Range Interpretation [...] code = CA) 7.8 mg/dL 8.4-10.2 L [id number] 05:23:00 Test Item Value Reference Range Interpretation Comments MAGNESIUM (test code = MAG) 1.8 mg/dL 1.8-2.4 N CBC W/AUTO [id number] 05:19:00 Test Item Value Reference Range Interpretation [...] REQUIRED (test NORMAL NORMAL code = PLTMR) [id number] 22:07:00 Test Item Value Reference Range Interpretation Comments GLUBED (test code = GLUBED) 171 mg/dL 65-110 H [id number] 17:41:00 Test Item Value Reference Range Interpretation Comments GLUBED (test code = GLUBED) 157 mg/dL 65-110 H [id number] 13:26:00 Test Item Value Reference Range Interpretation Comments GLUBED (test code = GLUBED) 154 mg/dL 65-110 H [id number] 06:54:00 Test Item Value Reference Range Interpretation Comments GLUBED (test code = GLUBED) 143 mg/dL 65-110 H CHEMISTRY 7 [id number] 13:07:00 Test Item Value Reference Range Interpretation [...] = CA) 8.5 mg/dL 8.4-10.2 N HGB [id number] 12:51:00 Test Item Value Reference Range Interpretation Comments HEMOGLOBIN (test code = HGB) 13.6 g/dL 10.7-13.9 N HEMATOCRIT (test code = HCT) 40.3 % 32.1-42.1 N
[2022-02-11] MEDS ORDERED: NA CHLORIDE 0.9% 1,000 ML ONE (13:12)
[2022-02-11] MEDS ORDERED: HYDROMORPHONE HCL 1 MG/ML INJ ONE (13:12)
[2022-02-11 13:41] LABS: Absolute Lymphocytes (CBC) 2.2 K/uL (0.7-4.9); Hematocrit 43.9 % (36.0-45.0); Lymphocytes % 24.1 % (15.3-44.8); MCV 87.3 fL (80-100); MPV 7.7 fL (7.6-11.3); RBC Red Blood Cell Count 5.03 M/uL (3.86-4.86)
[2022-02-11 13:52] LABS: Albumin 3.5 g/dL (3.4-5.0); Bilirubin Total 0.3 mg/dL (0.2-1.0); Potassium 3.6 mmol/L (3.5-5.1); Protein, Total 8.7 g/dL (6.4-8.2)
[2022-02-11 14:07] LABS: SARS-CoV-2 Antigen Rapid Res Negative (Negative)
--- NOTE | 2022-02-11 16:08 | ER ---
Nurse's Notes [facility] Name: Robyn Carrion Age: 61 yrs Sex: Female : 1960 Arrival Date: 02/11/2022 Time: 11:59 Bed 17 Private MD: Diagnosis: Epigastric abdominal tenderness Presentation: 02/11 12:39 Chief complaint: Patient states: Pt reports she was seen yesterday in this ED for upper ss abdominal pain nd diarrhea x2 weeks. Pt reports no findings but the pain remains today. Coronavirus screen: Vaccine status: Patient reports receiving the 2nd dose of the covid vaccine. Client denies travel out of the [place] in the last 14 days. Ebola Screen: Patient negative for fever greater than or equal to 101.5 degrees Fahrenheit, and additional compatible Ebola Virus Disease symptoms Patient denies exposure to infectious person. Patient denies travel to an Ebola-affected area in the 21 days before illness onset. Initial Sepsis Screen: Does the patient meet any 2 criteria? No. Patient's initial sepsis screen is negative. Does the patient have a suspected source of infection? No. Patient's initial sepsis screen is negative. Risk Assessment: Do you want to hurt yourself or someone else? Patient reports no desire to harm self or others. Onset of symptoms was January 27, 2022. 12:39 Method Of Arrival: Ambulatory ss 12:39 Acuity: DARA 3 ss Triage Assessment: 12:43 General: Appears uncomfortable, ill, Behavior is calm, cooperative. Pain: Complains of ss pain in epigastric area Pain does not radiate. 12:43 GI: Reports upper abdominal pain. ss Historical: - Allergies: 12:43 Codeine; ss 12:43 HYDROCODONE; ss - Home Meds: 12:43 atorvastatin Oral [Active]; Creon Oral [Active]; Dicyclomine Oral [Active]; Lantus ss Sub-Q [Active]; lisinopril Oral [Active]; Protonix Oral [Active]; Carafate 1 gram Oral tab 1 tab 4 times per day [Active]; - PMHx: 12:43 fernando esophageal disease; cricopharyngeal spasm; Hernia; High Cholesterol; ss Hypertensive disorder; Pancreatitis; vericose vein; iddm; - PSHx: 16:00 bladder prolapse SX; Cholecystectomy; colon removal; ercp; hernia repair; hysterectomy; db - Immunization history:: Adult Immunizations up to date, Client reports receiving the 2nd dose of the Covid vaccine, Last tetanus immunization: up to date. - Social history:: Smoking status: Patient denies any tobacco usage or history of. Screenin:00 Abuse screen: Denies threats or abuse. Denies injuries from another. Nutritional db screening: No deficits noted. Tuberculosis screening: No symptoms or risk factors identified. Fall Risk None identified. No fall in past 12 months (0 pts). No secondary diagnosis (0 pts). IV access (20 points). Ambulatory Aid- Crutches/Cane/Walker (15 pts). Gait- Normal/Bed Rest/Wheelchair (0 pts) Mental Status- Oriented to own ability (0 pts). Total Bonilla Fall Scale indicates No Risk (0-24 pts). Assessment: 13:20 Reassessment: Patient is alert, oriented x 3, equal unlabored respirations, skin db warm/dry/pink. General: Appears distressed, uncomfortable, Behavior is appropriate for age. Pain: Complains of pain in abdomen and left upper quadrant Pain currently is 10 out of 10 on a pain scale. Quality of pain is described as sharp, Pain began suddenly. Neuro: No deficits noted. Level of Consciousness is awake, alert, obeys commands, Oriented to person, place, time, situation, Appropriate for age Speech is normal, Facial symmetry appears normal, Pupils are PERRLA. Cardiovascular: No deficits noted. Respiratory: No deficits noted. GI: Bowel sounds present X 4 quads. Abd is soft Abdomen is tender to palpation in left upper quadrant. : No deficits noted. No signs and/or symptoms were reported regarding the genitourinary system. EENT: No deficits noted. No signs and/or symptoms were reported regarding the EENT system. Derm: No deficits noted. No signs and/or symptoms reported regarding the dermatologic system. 14:00 Reassessment: Patient appears in no apparent distress at this time. Patient and/or db family updated on plan of care and expected duration. Pain level reassessed. Patient states feeling better. Patient states symptoms have improved. 15:00 Reassessment: Patient appears in no apparent distress at this time. No changes from db previously documented assessment. Patient and/or family updated on plan of care and expected duration. Pain level reassessed. Patient is alert, oriented x 3, equal unlabored respirations, skin warm/dry/pink. Patient states symptoms have improved. 16:15 Reassessment: Patient appears in no apparent distress at this time. Patient and/or db family updated on plan of care and expected duration. Pain level reassessed. Patient is alert, oriented x 3, equal unlabored respirations, skin warm/dry/pink. Patient states feeling better. Patient states symptoms have improved. Vital Signs: 12:39 Pulse 87; Resp 20; Temp 98.6; Weight 68.04 kg; Height 5 ft. 2 in. (157.48 cm); Pain ss 7/10; 12:46 BP 168 / 95; ss 13:20 BP 190 / 90 (auto/reg); Pulse 82 MON; Resp 18 S; Pulse Ox 100% on R/A; Pain 10/10; db 12:39 Body Mass Index 27.44 (68.04 kg, 157.48 cm) ss ED Course: 11:59 Patient arrived in ED. as 12:28 Felicia Obrien FNP-C is PHCP. snw 12:28 Shreyas Garg MD is Attending Physician. snw 12:43 Triage completed. ss 12:43 Arm band placed on right wrist. ss 13:00 Patient has correct armband on for positive identification. Placed in gown. Bed in low db position. Call light in reach. Side rails up X 1. Pulse ox on. NIBP on. Lights dimmed. 13:06 Yasmine Villagran, HAIDER is Primary Nurse. db 13:20 Inserted saline lock: 20 gauge in right antecubital area, using aseptic technique. db Blood collected. 16:07 Melodie Santiago MD is Referral Physician. snw 16:15 No provider procedures requiring assistance completed. IV discontinued, intact, db bleeding controlled, No redness/swelling at site. Administered Medications: 13:22 Drug: NS 0.9% 1000 ml Route: IV; Rate: 1 bolus; Site: right antecubital; db 14:42 Follow up: Response: No adverse reaction; IV Status: Completed infusion; IV Intake: db 1000ml 13:25 Drug: Dilaudid (HYDROmorphone) 1 mg Route: IVP; Site: right antecubital; db 16:00 Follow up: Response: No adverse reaction db Medication: 16:15 VIS not applicable for this client. db Intake: 14:42 IV: 1000ml; Total: 1000ml. db Outcome: 16:07 Discharge ordered by . snaugustine 16:15 Discharged to home ambulatory. db 16:15 Condition: stable 16:15 Discharge instructions given to patient, Instructed on discharge instructions, follow up and referral plans. Demonstrated understanding of instructions. 16:31 Patient left the ED. Signatures: Felicia Obrien, SUPERVISOR GLUING-C SUPERVISOR GLUING-Salma Yadav Shelby, HAIDER RN ss Yasmine Villagran, HAIDER RN db Corrections: (The following items were deleted from the chart) 12:44 12:43 PMHx: Diabetes - NIDDM; ss
--- NOTE | 2022-02-11 16:08 | EDPHYS ---
Physician Documentation [facility] Name: Robyn Carrion Age: 61 yrs Sex: Female : 1960 Arrival Date: 02/11/2022 Time: 11:59 Bed 17 Private MD: ED Physician Shreyas Garg HPI: 02/11 12:59 This 61 yrs old Female presents to ER via Ambulatory with complaints of snw Abdominal Pain. 12:59 The patient presents with abdominal pain in the epigastric area, in the upper abdomen. snw Onset: The symptoms/episode began/occurred acutely. The symptoms radiate to Associated signs and symptoms: Pertinent positives: nausea, vomiting, and diarrhea. The symptoms are described as sharp, shooting. Severity of pain: At its worst the pain was severe in the emergency department the pain is unchanged. The patient has experienced similar episodes in the past, multiple times. The patient has been recently seen by a physician: yesterday, The patient has been recently seen at the [facility] Emergency Department, yesterday, for similar complaints. Historical: - Allergies: 12:43 Codeine; ss 12:43 HYDROCODONE; ss - Home Meds: 12:43 atorvastatin Oral [Active]; Creon Oral [Active]; Dicyclomine Oral [Active]; Lantus ss Sub-Q [Active]; lisinopril Oral [Active]; Protonix Oral [Active]; Carafate 1 gram Oral tab 1 tab 4 times per day [Active]; - PMHx: 12:43 fernando esophageal disease; cricopharyngeal spasm; Hernia; High Cholesterol; ss Hypertensive disorder; Pancreatitis; vericose vein; iddm; - PSHx: 16:00 bladder prolapse SX; Cholecystectomy; colon removal; ercp; hernia repair; hysterectomy; db - Immunization history:: Adult Immunizations up to date, Client reports receiving the 2nd dose of the Covid vaccine, Last tetanus immunization: up to date. - Social history:: Smoking status: Patient denies any tobacco usage or history of. ROS: 12:59 Constitutional: Negative for fever, chills, and weight loss, Eyes: Negative for injury, snw pain, redness, and discharge, ENT: Negative for injury, pain, and discharge, Neck: Negative for injury, pain, and swelling, Cardiovascular: Negative for chest pain, palpitations, and edema, Respiratory: Negative for shortness of breath, cough, wheezing, and pleuritic chest pain, Back: Negative for injury and pain, : Negative for injury, bleeding, discharge, and swelling, MS/Extremity: Negative for injury and deformity, Skin: Negative for injury, rash, and discoloration, Neuro: Negative for headache, weakness, numbness, tingling, and seizure, Psych: Negative for depression, anxiety, suicide ideation, homicidal ideation, and hallucinations. 12:59 Abdomen/GI: Positive for abdominal pain, nausea and vomiting, diarrhea. Exam: 12:58 Head/Face: Normocephalic, atraumatic. Eyes: Pupils equal round and reactive to light, snw extra-ocular motions intact. Lids and lashes normal. Conjunctiva and sclera are non-icteric and not injected. Cornea within normal limits. Periorbital areas with no swelling, redness, or edema. ENT: Nares patent. No nasal discharge, no septal abnormalities noted. Tympanic membranes are normal and external auditory canals are clear. Oropharynx with no redness, swelling, or masses, exudates, or evidence of obstruction, uvula midline. Mucous membranes moist. Neck: Trachea midline, no thyromegaly or masses palpated, and no cervical lymphadenopathy. Supple, full range of motion without nuchal rigidity, or vertebral point tenderness. No Meningismus. Chest/axilla: Normal chest wall appearance and motion. Nontender with no deformity. No lesions are appreciated. 12:58 Respiratory: Lungs have equal breath sounds bilaterally, clear to auscultation and percussion. No rales, rhonchi or wheezes noted. No increased work of breathing, no retractions or nasal flaring. 12:58 Back: No spinal tenderness. No costovertebral tenderness. Full range of motion. Skin: Warm, dry with normal turgor. Normal color with no rashes, no lesions, and no evidence of cellulitis. MS/ Extremity: Pulses equal, no cyanosis. Neurovascular intact. Full, normal range of motion. Neuro: Awake and alert, GCS 15, oriented to person, place, time, and situation. Cranial nerves II-XII grossly intact. Motor strength 5/5 in all extremities. Sensory grossly intact. Cerebellar exam normal. Normal gait. 12:58 Constitutional: The patient appears awake, anxious, restless, uncomfortable. 12:58 Cardiovascular: Rate: tachycardic, Rhythm: regular. 12:58 Abdomen/GI: Inspection: abdomen appears normal, Bowel sounds: normal, Palpation: moderate abdominal tenderness, in the epigastric area, right upper quadrant and left upper quadrant. 16:04 Special observations: pt is now lying down, no further rocking, improvement noted post snw dilaudid. Vital Signs: 12:39 Pulse 87; Resp 20; Temp 98.6; Weight 68.04 kg; Height 5 ft. 2 in. (157.48 cm); Pain ss 7/10; 12:46 BP 168 / 95; ss 13:20 BP 190 / 90 (auto/reg); Pulse 82 MON; Resp 18 S; Pulse Ox 100% on R/A; Pain 10/10; db 12:39 Body Mass Index 27.44 (68.04 kg, 157.48 cm) ss MDM: 12:50 Patient medically screened. snw 16:10 Data reviewed: vital signs, nurses notes. Data interpreted: Pulse oximetry: on room air snw is 100 %. Interpretation: normal. Counseling: I had a detailed discussion with the patient and/or guardian regarding: the historical points, exam findings, and any diagnostic results supporting the discharge/admit diagnosis, the presence of at least one elevated blood pressure reading (>120/80) during this emergency department visit, lab results, the need for outpatient follow up, to return to the emergency department if symptoms worsen or persist or if there are any questions or concerns that arise at home. Response to treatment: the patient's symptoms have markedly improved after treatment. Special discussion: Based on the patient's Hx, exam, and Dx evaluation, there is no indication for emergent surgery or inpatient Tx. It is understood by the patient/guardian that if the Sx's persist or worsen they need to return immediately for re-evaluation. Based on the history and exam findings, there is no indication for further emergent testing or inpatient evaluation. I discussed with the patient/guardian the need to see the block out machine operator for further evaluation of the symptoms. 02/11 12:55 Order name: CBC with Diff; Complete Time: 13:42 snw 02/11 12:55 Order name: CMP; Complete Time: 13:57 snw 02/11 12:55 Order name: Lipase; Complete Time: 13:57 snw 02/11 12:55 Order name: SARS RAPID; Complete Time: 14:07 snw 02/11 12:55 Order name: IV Saline Lock; Complete Time: 13:25 snw 02/11 12:55 Order name: Labs collected and sent; Complete Time: 13:25 snw Administered Medications: 13:22 Drug: NS 0.9% 1000 ml Route: IV; Rate: 1 bolus; Site: right antecubital; db 14:42 Follow up: Response: No adverse reaction; IV Status: Completed infusion; IV Intake: db 1000ml 13:25 Drug: Dilaudid (HYDROmorphone) 1 mg Route: IVP; Site: right antecubital; db 16:00 Follow up: Response: No adverse reaction db Disposition Summary: 02/11/22 16:07 Discharge Ordered Location: Home snw Condition: Stable snw Diagnosis - Epigastric abdominal tenderness snw Followup: snw - With: Emergency Department - When: As needed - Reason: Worsening of condition Followup: snw - With: Private Physician - When: 1 - 2 days - Reason: Recheck today's complaints, Continuance of care, Re-evaluation by your physician Followup: snw - With: Melodie Santiago MD - When: 1 - 2 days - Reason: Recheck today's complaints, Continuance of care, Re-evaluation by your physician Discharge Instructions: - Discharge Summary Sheet snw - Abdominal Pain, Adult snw - Hypertension, Adult snw - Managing Your Hypertension snw Forms: - Medication Reconciliation Form snw - Thank You Letter snw - Antibiotic Education snw - Prescription Opioid Use snw Signatures: Dispatcher [employer] EDFelicia Jeffries, PRICING CONSULTANT-C PRICING CONSULTANT-Csnw Cande Gomez RN RN ss Yasmine Villagran RN RN db Corrections: (The following items were deleted from the chart) 12:44 12:43 PMHx: Diabetes - NIDDM; [facility] 16:08 16:07 Abdominal pain, Generalized snw snw
[2022-02-11 17:18] VITALS: TEMP 98.6
[2022-02-11 17:38] VITALS: BP 190/90; O2SAT 100
== END 2022-02-11 16:31 | disposition home or self-care (01) ==
LOC: ER 11:58
DX: R10.816 Epigastric abdominal tenderness (principal); I10 Essential (primary) hypertension; E78.00 Pure hypercholesterolemia, unspecified; Z20.822 Contact with and (suspected) exposure to COVID-19
CPT/HCPCS: 96361; 85025; 36415; 83690; 80053; 96374; 99284; 87811; J1170; J7030

== ENCOUNTER 2022-03-08 17:34 | Emergency (ER) | payer OTHER ==
--- OUTSIDE RECORDS SUMMARY | 2022-03-08 17:39 | XMS REPORT | Continuity of Care Document ---
:1960 Author Organization [facility] t Address [facility] Brennan [address] [place] [id number] Care Team Providers Name Role Phone CARLOS BALDERRAMA Primary Care Physician Unavailable VINNIE OGLESBY Attending Clinician Unavailable VINNIE OGLESBY Attending Clinician Unavailable Reny EPPS, Vinnie Barron Attending Clinician [phone] Shyanne EPPS, Jocelin Gviens Attending Clinician WILL ANTONIO D.O. Attending Clinician Unavailable CYRIL MACK M.D. Attending Clinician Unavailable VINNIE OGLESBY Admitting Clinician Unavailable Payers Payer Name Policy Type Policy Number Effective Date Expiration Date S mickey MEDICARE A B [id number] 2001 00:00:00 MEDICAID [facility] [id number] 2017 00:00:00 MEDICARE PART A [id number] \\T\\ B - MEDICARE [facility]-MEDICAID - [id number] MEDICAID Problems Condition Condition Condition Status Onset Resolution Last Treating Co mments Source Name Details Category Date Date Treatment Clinician Date Biliary Biliary Disease [facility] [address] [place] [address] 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 4-15 [facility] e mellitus mellitus 00:00: of 00 Medicin e Hyperchole Hyperchole Disease Active [facility] sterole[facility] sterolemia 4-15 [facility] 00:[facility]: 00 Medicin e Pancreatit Pancreatit Disease Active [facility] is is 4-15 [facility] 00:00: Medicin e History of History of Disease Active [facility] diverticul diverticul 4-15 [facility] itis itis 00:00: 00 Medicin e Hyperlipid Hyperlipid Problem [facility] Hypertensi Hypertensi Problem Active [facility] No known No known Disease Metho di active active st problems problems Hospit a l Allergies, Adverse Reactions, Alerts Allergy Allergy Status [...] 7-31 [facility] [place] Hydrocod Propensi Active Method i one ty to 7-26 st adverse 00:00: Hospita reaction 00 l s to drug Family History Family Member Diagnosis Comments Start Date Stop Date Source Unknown Family Family history of Other [place] [facility] diabetes mellitus Unknown Family Family history of Other [place] [facility] hypertension Unknown Family Family history of Other [place] [facility] Heart problem Natural father Diabetes [facility] Natural father Hypertension [facility] Natural mother Diabetes [facility] Natural mother Heart disease [facility] Natural mother Hypertension [facility] Social History Social Habit Start Date Stop Date Quantity Comments Source History of tobacco Passive smoker [facility] Medicine History SDOH [facility] Alcohol Std Drinks Hospit al History [facility] Exposure to 2022-01-23 2022-02-[address] [facility] SARS-CoV-2 (event) 00:00:00 11:41:00 Medica l Center History [facility] 2019-11-17 2019-11-[address] [facility] [...] [facility] exposure 00:00:00 00:00:00 [facility] Alcohol intake 2018-12-10 2018-12-10 [facility] 00:00:00 00:00:00 non-drinker Hospital (finding) History [facility] 2018-11-01 2018-11-01 1 [facility] Alcohol Frequency 00:00:00 00:00:00 Hospita l Sex Assigned At [birth year] [facility] 00:00:00 00:00:00 Hospital Smoking Status Start Date Stop Date Source Never smoked tobacco [facility] Former smoker 2019-08-15 00:00:00 2019-08-15 00:00:[address] [facility] Medications Ordered Filled Start Stop [...] daily as needed . lipase/prot 2021-04 Yes [id number] Q.[id number] Take [facility] 0-27 [id number] 36,000 [facility] (CREON 14:58: 3D Units [...] daily as needed . lipase/prot 2021-04 Yes [id number] Q.[id number] Take [facility] 0-27 [id number] 36,000 [facility] (CREON 14:58: 3D Units [...] daily as needed . lipase/prot 2021-04 Yes [id number] Q.[id number] Take [facility] 0-27 [id number] 36,000 [facility] (CREON 14:58: 3D Units [...] daily as needed . lipase/prot 2021-04 Yes [id number] Q.[id number] [facility] 0-27 [id number] 36,000 [facility] e (CREON 14:58: 3D Units [...] daily as needed . lipase/prot 2021-04 Yes [id number] Q.[id number] [facility] 0-27 [id number] 36,000 [facility] e (CREON 14:58: 3D Units [...] :00 (six) Center hours. lipase/prot 2021-04 Yes [id number] Q.[id number] [facility] 0-26 [id number] 36,000 [facility] e (CREON 09:59: 3D Units [...] Medic al 15 (six) Center hours. insulin 2022-1 Yes QD Inject [facility] glargine 0-26 subcutaneo [facility] (LANTUS) 09:59: usly Medical 100 unit/mL 15 nightly Cente r injection Use as directed . lisinopriL 2021-04 Yes 10mg QD Take [address] (PRINIVIL,Z 0-26 by mouth Luke s ESTRIL) 10 09:59: daily Medica l MG tablet 15 Night. [facility] lubiproston 2021-04 Yes 8ug Take [address] e (AMITIZA) 0-26 by mouth 2 [facility]ina kes 8 MCG 09:59: (two) Medical capsule 15 times Center daily as needed . [place] [facility] (AMITIZA) 01-04 [place] 8 MCG CAPS 13:11: 00:00 of 58 :00 Medicin e atorvastati Yes [facility] n (LIPITOR) 01-04 [place] 40 MG 13:11: of tablet 56 Medicin e dicyclomine Yes [facility] (BENTYL) 20 01-04 [place] MG tablet 13:11: of 56 Medicin e insulin Yes [facility] glargine 01-04 [place] (LANTUS) 13:11: of 100 UNIT/ML 56 Medicin injection e lisinopril Yes [facility] (PRINIVIL, 01-04 [place] ZESTRIL) 10 13:11: of MG tablet [address] [facility] 01-04 [place] (PROTONIX) 13:11: of 40 MG 56 Medicin tablet e sucralfate Yes [facility] (CARAFATE) 01-04 [place] 1 g tablet 13:11: of 56 Medicin e rifAXIMin Yes 550mg Take 550 [facility] 550 MG TABS 01-04 mg by [place] 00:00: mouth 3 of 00 times Medicin daily. e atorvastati Yes 40mg QD Take [address] n (LIPITOR) 8-12 by mouth [facility] s 40 MG 13:03: daily. Medical tablet 21 [facility] dicyclomine Yes 20mg Take 20 mg [facility] [...] daily as needed . lipase/prot 2020-0 Yes [id number] Q.[id number] [facility] 8-12 [id number] 36,000 [facility] e (CREON 13:03: 3D Units [...] daily as needed . lipase/prot 2020-0 Yes [id number] Q.[id number] [facility] 8-12 [id number] 36,000 [facility] (CREON 13:03: 3D Units [...] Medical tablet 21 times Center daily. tramadol 2021- No TK 1 T PO [facility] (ULTRAM) 50 5-28 12-28 Q 6 H PRN Co llege MG tablet 00:00: 00:00 FOR 5 DAYS o f 00 :00 Medicin e CREON [id number] 2019- Yes TK 2 CS PO Eric units CPEP 2-11 WITH EACH Cristino ege 00:00: MEAL AND 1 of 00 C PO FOR Medicin EACH SNACK e promethazin 2021- No TK 1 T PO Eric e 2-10 15-28 Q 6 [facility] (PHENERGAN) 00:00: 00:00 [...] 157.5 cm WEIGHT 2022-02-01 10:01:00 69.4 kg BMI 2022-01-04 18:10:00 28.06 kg/m2 [facility] Systolic blood 2022-01-04 18:10:00 136 mm[Hg] [facility] pressure Medicine Diastolic blood 2022-01-04 18:10:00 78 mm[Hg] [facility] Medicine Respiratory rate 2022-01-04 18:10:00 16 /min [facility] Body height 2022-01-04 18:10:00 157.5 cm [facility] Body weight 2022-01-04 18:10:00 69.582 kg [facility] HEIGHT 2019-10-20 00:00:00 157.5 cm WEIGHT 2019-10-20 00:00:00 69.355 kg HEIGHT 2019-08-13 00:00:00 157.5 cm WEIGHT 2019-08-13 00:00:00 70.716 kg Systolic blood 2022-02-02 14:30:00 158 mm[Hg] [facility] Diastolic blood 2022-02-02 14:30:00 66 mm[Hg] [facility] Heart rate 2022-02-02 14:30:00 60 /min [facility] Body temperature 2022-02-02 14:30:00 36.44 Alysia [facility] Respiratory rate 2022-02-02 14:30:00 18 /min [facility] Oxygen saturation in 2022-02-02 14:30:00 100 /min [facility] Arterial blood by Medical Ce nter Pulse oximetry Body height 2022-02-02 11:25:00 157.5 cm [facility] Body weight 2022-02-02 11:25:00 68.448 kg [facility] BMI 2022-02-02 11:25:00 27.60 kg/m2 [facility] Body height 2022-02-01 10:01:00 157.5 cm [facility] Body weight 2022-02-01 10:01:00 69.4 kg [facility] BMI 2022-02-01 10:01:00 27.98 kg/m2 [facility] Height 2018-05-24 10:25:00 62 [in_us] [facility] [...] Rate 2018-04-26 10:21:00 73 /[facility] Procedure Date / Time Performing Source Performed Clinician REPORT OF PROCEDURE - ENDOSCOPY 2022-02-[address] [facility] URL 14:02:35 [facility] POCT-GLUCOSE METER 2022-02-[address] [facility] 13:48:00 [facility] ESOPHAGOGASTRODUODENOSCOPY, WITH 2022-02-[address] [facility] SUBMUCOSAL INJECTION 13:00:[address] [facility] [address] ESOPHAGOGASTRODUODENOSCOPY, WITH 2022-02-[address] [facility] ENDOSCOPIC US 13:00:00 [facility] ESOPHAGOGASTRODUODENOSCOPY 2022-02-02 [facility] 13:00:00 [facility] ULTRASOUND, UPPER GI TRACT, 2022[facility]02-[facility] ENDOS[facility]IC, WITH FINE NEEDLE 13:00:00 [facility] ASPIRATION ESOPHAGOGASTRODUODENOSCOPY, WITH 2022-02-02 [facility] ENDOSCOPIC MUCOSAL RESECTION 13:00:00 [facility] POCT-GLUCOSE METER 2022-02-02 [facility] 12:05:00 [facility] PANCREATIC ELASTASE - FECAL 2022-01-13 [facility] 16:03:00 of Medicine Plan of Care Planned Activity Planned Date Details Comments Source Future Scheduled 2023-02-[address] [facility] Test 00:00:00 [facility] r Screening (12+) [code = Tobacco Cessation Counseling and Screening (12+)] Future Scheduled 2022-02-09 HEPATITIS B VACCINES (1 [facility] Test 15:54:46 of 3 - 3-dose series) Hospit al [code = HEPATITIS B VACCINES (1 of 3 - 3-dose series)] Future Scheduled 2022-02-09 COVID-19 VACCINE (#1) [facility] 15:54:46 [code = COVID-19 Hospital VACCINE (#1)] Future Scheduled 2022-02-09 Screening for malignant [facility] Test 15:54:46 neoplasm of cervix Hospital (procedure) [code = 895689438] Future Scheduled 2022-02-09 BREAST CANCER SCREENING [facility] Test 15:54:46 [code = BREAST CANCER Hospit al SCREENING] Future Scheduled 2022-02-09 COLONOSCOPY SCREENING [facility] Test 15:54:46 [code = COLONOSCOPY Hospital SCREENING] Future Scheduled 2022-02-09 SHINGLES VACCINES (1 of [facility] 15:54:46 2) [code = SHINGLES Hospital VACCINES (1 of 2)] Future Scheduled 2022-02-09 INFLUENZA VACCINE [code [facility] 15:54:46 = INFLUENZA VACCINE] Hospita l Future Scheduled 2022-02-09 HEPATITIS B VACCINES (1 [facility] Test 15:54:46 of 3 - 3-dose series) Hospit al [code = HEPATITIS B VACCINES (1 of 3 - 3-dose series)] Future Scheduled 2022-02-09 COVID-19 VACCINE (#1) [facility] 15:54:46 [code = COVID-19 Hospital VACCINE (#1)] Future Scheduled 2022-02-09 Screening for malignant [facility] Test 15:54:46 neoplasm of cervix Hospital (procedure) [code = 505151487] Future Scheduled 2022-02-09 BREAST CANCER SCREENING [facility] Test 15:54:46 [code = BREAST CANCER Hospit al SCREENING] Future Scheduled 2022-02-09 COLONOSCOPY SCREENING [facility] 15:54:46 [code = COLONOSCOPY Hospital SCREENING] Future Scheduled 2022-02-09 SHINGLES VACCINES (1 of [facility] 15:54:46 2) [code = SHINGLES Hospital VACCINES (1 of 2)] Future Scheduled 2022-02-09 INFLUENZA VACCINE [code [facility] 15:54:46 = INFLUENZA VACCINE] Hospita l Future Scheduled 2022-02-09 HEPATITIS B VACCINES (1 [facility] Test 15:54:46 of 3 - 3-dose series) Hospit al [code = HEPATITIS B VACCINES (1 of 3 - 3-dose series)] Future Scheduled 2022-02-09 COVID-19 VACCINE (#1) [facility] 15:54:46 [code = COVID-19 Hospital VACCINE (#1)] Future Scheduled 2022-02-09 Screening for malignant [facility] Test 15:54:46 neoplasm of cervix Hospital (procedure) [code = 917787027] Future Scheduled 2022-02-09 BREAST CANCER SCREENING [facility] Test 15:54:46 [code = BREAST CANCER Hospit al SCREENING] Future Scheduled 2022-02-09 COLONOSCOPY SCREENING [facility] 15:54:46 [code = COLONOSCOPY Hospital SCREENING] Future Scheduled 2022-02-09 SHINGLES VACCINES (1 of [facility] 15:54:46 2) [code = SHINGLES Hospital VACCINES (1 of 2)] Future Scheduled 2022-02-09 INFLUENZA VACCINE [code [facility] 15:54:46 = INFLUENZA VACCINE] Hospita l Future Scheduled 2022-02-06 HEPATITIS B VACCINES (1 [facility] Test 13:59:44 of 3 - 3-dose series) Hospit al [code = HEPATITIS B VACCINES (1 of 3 - 3-dose series)] Future Scheduled 2022-02-06 COVID-19 VACCINE (#1) [facility] 13:59:44 [code = COVID-19 Hospital VACCINE (#1)] Future Scheduled 2022-02-06 Screening for malignant [facility] Test 13:59:44 neoplasm of cervix Hospital (procedure) [code = 911777777] Future Scheduled 2022-02-06 BREAST CANCER SCREENING [facility] Test 13:59:44 [code = BREAST CANCER Hospit al SCREENING] Future Scheduled 2022-02-06 COLONOSCOPY SCREENING [facility] 13:59:44 [code = COLONOSCOPY Hospital SCREENING] Future Scheduled 2022-02-06 SHINGLES VACCINES (1 of [facility] 13:59:44 2) [code = SHINGLES Hospital VACCINES (1 of 2)] Future Scheduled 2022-02-06 INFLUENZA VACCINE [code [facility] 13:59:44 = INFLUENZA VACCINE] Hospita l Future Scheduled 2022-02-06 HEPATITIS B VACCINES (1 [facility] Test 13:59:44 of 3 - 3-dose series) Hospit al [code = HEPATITIS B VACCINES (1 of 3 - 3-dose series)] Future Scheduled 2022-02-06 COVID-19 VACCINE (#1) [facility] 13:59:44 [code = COVID-19 Hospital VACCINE (#1)] Future Scheduled 2022-02-06 Screening for malignant [facility] Test 13:59:44 neoplasm of cervix Hospital (procedure) [code = 620953593] Future Scheduled 2022-02-06 BREAST CANCER SCREENING [facility] Test 13:59:44 [code = BREAST CANCER Hospit al SCREENING] Future Scheduled 2022-02-06 COLONOSCOPY SCREENING [facility] 13:59:44 [code = COLONOSCOPY Hospital SCREENING] Future Scheduled 2022-02-06 SHINGLES VACCINES (1 of [facility] 13:59:44 2) [code = SHINGLES Hospital VACCINES (1 of 2)] Future Scheduled 2022-02-06 INFLUENZA VACCINE [code [facility] 13:59:44 = INFLUENZA VACCINE] Hospita l Future Scheduled 2022-01-14 Screening for malignant [facility] Test 13:58:24 neoplasm of colon of Medicin e (procedure) [code = 662713306] Future Scheduled 2022-01-14 Screening for malignant [facility] Test 13:58:24 neoplasm of breast of Medici ne (procedure) [code = 740336907] Future Scheduled 2022-01-14 COVID-19 Vaccine (#1) [facility] Test 13:58:24 [code = COVID-19 of Medicine Vaccine (#1)] Future Scheduled 2022-01-14 Pneumococcal Combined Ba or [place] Test 13:58:24 (1 - PCV) [code = of Medicin e Pneumococcal Combined (1 - PCV)] Future Scheduled 2022-01-14 TETANUS SHOT (ADULT) [facility] Test 13:58:24 [code = TETANUS SHOT of Medi cine (ADULT)] Future Scheduled 2022-01-[address] [facility] Test 13:58:24 examination of Medicine (regime/therapy) [code = 199257835] Future Scheduled 2022-01-[address] [facility] Test 13:58:24 RETINOPATHY SCREENING of Med icine [code = ANNUAL DIABETIC RETINOPATHY SCREENING] Future Scheduled 2022-01-14 BMI FOLLOW UP PLAN [facility] Test 13:58:24 [code = BMI FOLLOW UP of Med icine PLAN] Future Scheduled 2022-01-14 Hepatitis C screening Ba or [place] Test 13:58:24 (procedure) [code = of Medic ine 689826553] Future Scheduled 2022-01-14 Human immunodeficiency B [facility] Test 13:58:24 virus screening of Medicine (procedure) [code = 117503519] Future Scheduled 2022-01-14 Screening for malignant [facility] Test 13:58:24 neoplasm of cervix of Medici ne (procedure) [code = 615787019] Future Scheduled 2022-01-14 MEDICARE AWV (Initial) B [facility] Test 13:58:24 [code = MEDICARE AWV of Medi cine (Initial)] Future Scheduled 2022-01-14 ZOSTER VACCINE (1 of 2) [facility] Test 13:58:24 [code = ZOSTER VACCINE of Me dicine (1 of 2)] Future Scheduled 2022-01-14 FLU VACCINE > 6 MONTHS B [facility] Test 13:58:24 [code = FLU VACCINE > 6 of M edicine MONTHS] Future Scheduled 2022-01-12 HEPATITIS B VACCINES (1 [facility] Test 15:05:35 of 3 - 3-dose series) Hospit al [code = HEPATITIS B VACCINES (1 of 3 - 3-dose series)] Future Scheduled 2022-01-12 COVID-19 VACCINE (#1) [facility] 15:05:35 [code = COVID-19 Hospital VACCINE (#1)] Future Scheduled 2022-01-12 Screening for malignant [facility] Test 15:05:35 neoplasm of cervix Hospital (procedure) [code = 177835558] Future Scheduled 2022-01-12 BREAST CANCER SCREENING [facility] 15:05:35 [code = BREAST CANCER Hospit al SCREENING] Future Scheduled 2022-01-12 COLONOSCOPY SCREENING [facility] 15:05:35 [code = COLONOSCOPY Hospital SCREENING] Future Scheduled 2022-01-12 SHINGLES VACCINES (1 of [facility] 15:05:35 2) [code = SHINGLES Hospital VACCINES (1 of 2)] Future Scheduled 2022-01-12 INFLUENZA VACCINE [code [facility] 15:05:35 = INFLUENZA VACCINE] Hospita l Future Scheduled 2022-01-12 HEPATITIS B VACCINES (1 [facility] Test 15:05:35 of 3 - 3-dose series) Hospit al [code = HEPATITIS B VACCINES (1 of 3 - 3-dose series)] Future Scheduled 2022-01-12 COVID-19 VACCINE (#1) [facility] 15:05:35 [code = COVID-19 Hospital VACCINE (#1)] Future Scheduled 2022-01-12 Screening for malignant [facility] 15:05:35 neoplasm of cervix Hospital (procedure) [code = 430874432] Future Scheduled 2022-01-12 BREAST CANCER SCREENING [facility] Test 15:05:35 [code = BREAST CANCER Hospit al SCREENING] Future Scheduled 2022-01-12 COLONOSCOPY SCREENING [facility] 15:05:35 [code = COLONOSCOPY Hospital SCREENING] Future Scheduled 2022-01-12 SHINGLES VACCINES (1 of [facility] 15:05:35 2) [code = SHINGLES Hospital VACCINES (1 of 2)] Future Scheduled 2022-01-12 INFLUENZA VACCINE [code [facility] 15:05:35 = INFLUENZA VACCINE] Hospita l Future Scheduled 2022-01-04 PANCREATIC ELASTASE - Ordered: [facility] [employer] [employer] Test 13:40:45 FECAL [code = 65996-5] 01/04/2022 of Me dicine Future Scheduled 2022-01-04 EGD W/EMR - GI DEPT 1 Occurrences [facility] Test 13:40:45 [code = NOCPT] starting of Medicine 01/04/2022 until 07/04/2022 Future Scheduled 2022-01-04 EUS WITH MAC, UPPER 1 Occurrences [facility] Test 13:40:45 WITH FNA [code [...] [facility] Test 00:00:00 [code = 17182194] Medical Ce nter Future Scheduled 2003-09-07 Lipid panel (procedure) [facility] Test 00:00:00 [code = 35891964] Medical Ce nter Future Scheduled 2003-09-07 Lipid panel (procedure) [facility] Test 00:00:00 [code = 77755536] Medical Ce nter Future Scheduled 2003-09-07 Lipid panel (procedure) [facility] Test 00:00:00 [code = 98319711] Medical Ce nter Future Scheduled 2003-09-07 Lipid panel (procedure) [facility] Test 00:00:00 [code = 47239084] Medical Ce nter Future Scheduled 2003-09-07 Lipid panel (procedure) [facility] Test 00:00:00 [code = 82385646] Medical Ce nter Future Scheduled 2003-09-07 Lipid panel (procedure) [facility] Test 00:00:00 [code = 50536624] Medical Ce nter Future Scheduled 2003-09-07 Lipid panel (procedure) [facility] Test 00:00:00 [code = 30199071] Medical Ce nter Future Scheduled 2002-10-08 MEDICARE [...] cervix Medical C enter (procedure) [code = 019874518] Future Scheduled 1979-09-07 Screening for malignant [facility] Test 00:00:00 neoplasm of cervix Medical C enter (procedure) [code = 856379453] Future Scheduled 1979-09-07 Screening for malignant [facility] Test 00:00:00 neoplasm of cervix Medical C enter (procedure) [code = 894276496] Future Scheduled 1979-09-07 Screening for malignant [facility] Test 00:00:00 neoplasm of cervix Medical C enter (procedure) [code = 269365098] Future Scheduled 1979-09-07 Screening for malignant [facility] Test 00:00:00 neoplasm of cervix Medical C enter (procedure) [code = 311206928] Future Scheduled 1979-09-07 Screening for malignant [facility] Test 00:00:00 neoplasm of cervix Medical C enter (procedure) [code = 343662213] Future Scheduled 1979-09-07 Screening for malignant [facility] Test 00:00:00 neoplasm of cervix Medical C enter (procedure) [code = 674420476] Future Scheduled 1979-09-07 Screening for malignant [facility] Test 00:00:00 neoplasm of cervix Medical C enter (procedure) [code = 610698334] Future Scheduled 1977 DTAP/TDAP/TD VACCINES CH I [...] breast Medical C enter (procedure) [code = 517670002] Future Scheduled 1958 CT Colonography (combo) [facility] Test 00:00:00 [code = CT Colonography [facility] (combo)] Future Scheduled 1958 Screening for malignant [facility] Test 00:00:00 neoplasm of colon Medical Ce nter (procedure) [code = 931875972] Future Scheduled 1958 Screening for malignant [facility] Test 00:00:00 neoplasm of colon Medical Ce nter (procedure) [code = 899702068] Future Scheduled 1958 Screening for malignant [facility] Test 00:00:00 neoplasm of colon Medical Ce nter (procedure) [code = 607720150] Future Scheduled 1958 Screening for malignant [facility] Test 00:00:00 neoplasm of colon Medical Ce nter (procedure) [code = 655626438] Future Scheduled 1960 Sigmoidoscopy [code = [facility] S[facility]oscopy] Medical Cente r Future Scheduled 1958 Screening for malignant [facility] Test 00:00:00 neoplasm of breast Medical C enter (procedure) [code = 624110171] Future Scheduled 1958 CT Colonography (combo) [facility] Test 00:00:00 [code = CT Colonography [facility] (combo)] Future Scheduled 1958 Screening for malignant [facility] Test 00:00:00 neoplasm of colon Medical Ce nter (procedure) [code = 991105526] Future Scheduled 1958 Screening for malignant [facility] Test 00:00:00 neoplasm of colon Medical Ce nter (procedure) [code = 213646071] Future Scheduled 1958 Screening for malignant [facility] Test 00:00:00 neoplasm of colon Medical Ce nter (procedure) [code = 694435421] Future Scheduled 1958 Screening for malignant [facility] Test 00:00:00 neoplasm of colon Medical Ce nter (procedure) [code = 015372112] Future Scheduled 1960 Sigmoidoscopy [code = [facility] Sigmoidoscopy] Medical Casandrae r Future Scheduled 1958 Screening for malignant [facility] Test 00:00:00 neoplasm of breast Medical C enter (procedure) [code = 492879430] Future Scheduled 1958 Screening for malignant [facility] Test 00:00:00 neoplasm of breast Medical C enter (procedure) [code = 815658428] Future Scheduled 1958 CT Colonography (combo) [facility] Test 00:00:00 [code = CT Colonography Medi [facility] (combo)] Future Scheduled 1958 Screening for malignant [facility] Test 00:00:00 neoplasm of colon Medical Ce nter (procedure) [code = 833122440] Future Scheduled 1958 Screening for malignant [facility] Test 00:00:00 neoplasm of colon Medical Ce nter (procedure) [code = 248379019] Future Scheduled 1958 Screening for malignant [facility] Test 00:00:00 neoplasm of colon Medical Ce nter (procedure) [code = 106050007] Future Scheduled 1958 Screening for malignant [facility] Test 00:00:00 neoplasm of colon Medical Ce nter (procedure) [code = 796860760] Future Scheduled 1958 Screening for malignant [facility] Test 00:00:00 neoplasm of colon Medical Ce nter (procedure) [code = 144328486] Future Scheduled 1960 Sigmoidoscopy [code = [facility] Sigmoidoscopy] Medical Cente r Future Scheduled 1958 Screening for malignant [facility] Test 00:00:00 neoplasm of breast Medical C enter (procedure) [code = 037909283] Future Scheduled 1958 CT Colonography (combo) [facility] Test 00:00:00 [code = CT Colonography Medi sarah Center (combo)] Future Scheduled 1958 Screening for malignant [facility] 00:00:00 neoplasm of colon Medical Ce nter (procedure) [code = 060006211] Future Scheduled 1958 Screening for malignant [facility] 00:00:00 neoplasm of colon Medical Ce nter (procedure) [code = 219010503] Future Scheduled 1958 Screening for malignant [facility] 00:00:00 neoplasm of colon Medical Ce nter (procedure) [code = 363851471] Future Scheduled 1958 Screening for malignant [facility] 00:00:00 neoplasm of colon Medical Ce nter (procedure) [code = 668284887] Future Scheduled 1958 Sigmoidoscopy [facility]code [facility]] Medical Cente r Future Scheduled 1958 Screening for malignant [facility] 00:00:00 neoplasm of breast Medical C enter (procedure) [code = 778720992] Future Scheduled 1958 CT Colonography (combo) [facility] 00:00:00 [code = CT Colonography [facility] (combo)] Future Scheduled 1958 Screening for malignant [facility] 00:00:00 neoplasm of colon Medical Ce nter (procedure) [code = 048911658] Future Scheduled 1958 Screening for malignant [facility] 00:00:00 neoplasm of colon Medical Ce nter (procedure) [code = 731956188] Future Scheduled 1958 Screening for malignant [facility] 00:00:00 neoplasm of colon Medical Ce nter (procedure) [code = 113653772] Future Scheduled 1958 Screening for malignant [facility] 00:00:00 neoplasm of colon Medical Ce nter (procedure) [code = 826119116] Future Scheduled 1958 Sigmoidoscopy [facility]] Medical Cente r Future Scheduled 1958 Screening for malignant [facility] 00:00:00 neoplasm of breast Medical C enter (procedure) [code = 543178624] Future Scheduled 1958 CT Colonography (combo) [facility] 00:00:00 [code = CT Colonography [facility] (combo)] Future Scheduled 1958 Screening for malignant [facility] 00:00:00 neoplasm of colon Medical Ce nter (procedure) [code = 865790126] Future Scheduled 1958 Screening for malignant [facility] 00:00:00 neoplasm of colon Medical Ce nter (procedure) [code = 709883475] Future Scheduled 1958 Screening for malignant [facility] 00:00:00 neoplasm of colon Medical Ce nter (procedure) [code = 957786109] Future Scheduled 1958 Screening for malignant [facility] 00:00:00 neoplasm of colon Medical Ce nter (procedure) [code = 012621490] Future Scheduled 1958 Sigmoidoscopy [facility]code [facility]] Medical Cente r Future Scheduled 1958 Screening for malignant [facility] 00:00:00 neoplasm of breast Medical C enter (procedure) [code = 709115215] Future Scheduled 1958 CT Colonography (combo) [facility] 00:00:00 [code = CT Colonography [facility] (combo)] Future Scheduled 1958 Screening for malignant [facility] 00:00:00 neoplasm of colon Medical Ce nter (procedure) [code = 891815407] Future Scheduled 1958 Screening for malignant [facility] 00:00:00 neoplasm of colon Medical Ce nter (procedure) [code = 879124005] Future Scheduled 1958 Screening for malignant [facility] 00:00:00 neoplasm of colon Medical Ce nter (procedure) [code = 405131771] Future Scheduled 1958 Screening for malignant [facility] 00:00:00 neoplasm of colon Medical Ce nter (procedure) [code = 086412447] Future Scheduled 1958 Sigmoidoscopy [code = CH [...] [facility] (procedure) [code = Hospital 078456333] Future Scheduled Screening for malignant [facility] neoplasm [facility] cervix Hospital (procedure) [code = 244166785] Future Scheduled BREAST CANCER SCREENING [facility] [code = BREAST CANCER Hospit al SCREENING] Future Scheduled COLONOSCOPY SCREENING [facility] [code = COLONOSCOPY Hospital SCREENING] Future Scheduled SHINGLES VACCINES (#1) M ethodist Test [code = SHINGLES Hospital VACCINES (#1)] Future Scheduled INFLUENZA VACCINE [code [facility] = INFLUENZA VACCINE] Hospita l Encounters Start End Encounter Admission Attending Care Care Encounter Source Date/Time Date/Time Type Type Clinicians Facility Department ID 2021-01-11 Outpatient [facility] [id number] [facility] 23:34:53 [facility] 2021-01-11 [id number] 20:32:36 [facility] 2021-01-11 [facility] Surgery [id number] [facility] 13:26:30 [facility] 2022-02-02 2022-02-08 Outpatient OTAAMIR, BCM [place] [id number] [facility] 12:56:28 12:58:23 [facility] 2022-02-02 2022-02-06 Outpatient OTLASHONAN, BCM BCM [id number] [facility] 13:59:35 14:00:59 [facility] 2022-02-02 2022-02-02 Outpatient BCM BC [id number] [facility] 10:36:00 23:59:00 [facility] 2022-02-02 2022-02-02 [facility], [facility] [id number] 10:36:00 14:56:00 [facility]counter [facility] 2022-02-02 2022-02-[address] [facility], [facility] [id number] 10:36:00 14:56:00 Encounter [facility] 2022-02-02 2022-02-02 Outpatient RENY, [facility] Surgery [id number] SLE 10:36:00 14:56:00 [facility] 2022-02-02 2022-02-02 Surgery Otan, [facility] [id number] 13:00:00 14:30:00 [facility] 2022-02-02 2022-02-02 Surgery Otan, [facility] [id number] 13:00:00 14:30:00 [facility] Theron Oglesby [facility] 2022-02-02 2022-02-[address] [facility] [id number] [facility] 13:05:00 13:52:00 Event [facility] 2022-02-02 2022-02-[address] [facility] [id number] [facility] 13:05:00 13:52:00 Event [facility] 2022-02-02 2022-02-02 Travel [facility] [id number] [facility] 00:[facility]00 00:00:00 [facility] 2022-02-02 2022-02-02 Travel [facility] [id number] [facility] 00:[facility]00 00:00:00 [facility] 2022-02-01 2022-02-01 Outpatient [facility] [id number] [facility] 10:15:55 10:15:55 2022-02-01 2022-02-01 [facility] [id number] 10:00:00 10:00:00 Encounter [facility] 2022-02-01 2022-02-01 [facility] [id number] 10:00:00 10:00:00 Encounter [facility] 2022-02-01 2022-02-01 Travel [facility] [id number] [facility] 00:00:00 00:00:00 [facility] 2022-02-01 2022-02-01 Travel [facility] [id number] [facility] 00:00:00 00:00:00 [facility] 2022-01-04 2022-01-04 Office JENNIFER OGLESBY [id number] [facility] 12:22:53 15:07:41 Visit VINNIE AMBULATOR [id number] College Y 0.2.7.2.686 of [id number] Medi holger 325 e 2021-02-02 2021-02-02 Outpatient JENNIFER OGLESBY [facility] [id number] [facility] 10:22:11 10:28:13 [facility] 2021-01-10 2021-01-10 Outpatient [facility] [id number] [facility] 12:56:42 12:56:42 [facility] 2019-11-17 2019-11-17 Outpatient [facility] [id number] [facility] 00:00:00 00:00:00 2019-08-15 2019-08-15 Outpatient [facility] [id number] [facility] 00:00:00 00:00:00 2018-05-24 2018-05-24 Appointmen MARISELA, UTP [place] [id number] [place] 10:30:00 10:30:00 t; WILL, Surgery Physi iliana ANTONIO D.O. Specialty ans WILL, D.O. 2018-04-26 2018-04-26 Appointmen MARISELA, UTP [facility] [id number] [place] 10:15:00 10:15:00 t; WILL, Physi ci MARISELA D.O. ans WILL, D.O. 2018-04-19 2018-04-19 Appointmen SEANINSKI, UTP UTP [id number] [place] 10:00:00 10:00:00 t; WILL, Physi ci MARISELA D.O. ans WILL, D.O. 2018-03-27 2018-03-27 Appointmen SEANINSKI, UTP UTP [id number] [place] 10:30:00 10:30:00 t; WILL, Physi ci MARISELA D.O. ans WILL, D.O. 2018-03-22 2018-03-22 Appointmen MARISELA, UTP UTP [id number] [place] 10:30:00 10:30:00 t; WILL, Physi ci MARISELA D.O. ans WILL, D.O. 2018-03-06 2018-03-06 Appointmen FREDERICK, UTP UTP [id number] [place] 08:30:00 08:30:00 t; CYRIL MACK M.D. P hysici HANI, M.D. ans 2018-02-14 2018-02-14 Appointlindsey MARISELA, UTP UTP [id number] [place] 08:15:00 08:15:00 t; WILL, Physi ci MARISELA, D.O. ans WILL, D.O. 2018-01-11 2018-01-11 Appointmen SEANINSKI, UTP UTP [id number] [place] 10:30:00 10:30:00 t; WILL, Physi ci MARISELA, D.O. ans WILL, D.O. Results Test Description Test Time Test Comments Results Result Comments Source POC-Glucose meter 2022-02-02 14:00:02 Test Item Value Reference Range Interpretation Comme [facility] POC-Glucose Meter (test code = 100 mg/dL 70-110 : TESTED AT [place] [address]) [facility], [facility] 30: Felled Seam Operator Chainstitch/Techni ewndy ID = [id number] for Josh, Shemek e Lab Interpretation (test code = Normal 35827-2) [facility]-Glucose [id number] 14:00:02 Test Item Value Reference Range Interpretation Comments POC-Glucose Meter (test 100 mg/dL 70-110 : TE STED AT [facility] code = 1538) [address] [place] [address], [facility] 30: Felled Seam Operator Chainstitch/Techni wendy ID = [id number] for Josh, Shemek e Lab Interpretation (test Normal code = 58265-9) [facility]-Glucose [id number] 14:00:02 Test Item Value Reference Range Interpretation Comments POC-Glucose Meter (test 100 mg/dL 70-110 : TE STED AT [facility] code = 1538) [address] [place] [address], [facility] 30: Felled Seam Operator Chainstitch/Techni wendy ID = [id number] for Josh, Shemek e Lab Interpretation (test Normal code = 27372-4) [facility] [id number] 14:00:02 Test Item Value Reference Range Interpretation Comments POC-Glucose Meter (test 100 mg/dL 70-110 : TE STED AT [facility] code = 1538) [address] [place] [address], 770 30: Felled Seam Operator Chainstitch/Techni wendy ID = [id number] for Josh, Shemek e Lab Interpretation (test Normal code = 16124-6) [facility] [id number] 14:00:02 Test Item Value Reference Range Interpretation Comments POC-Glucose Meter (test 100 mg/dL 70-110 : TE STED AT [facility] code = 1538) [address] [place] [address], 770 30: Felled Seam Operator Chainstitch/Techni wendy ID = [id number] for Josh, Shemek e Lab Interpretation (test Normal code = 44205-5) [facility]-GLUCOSE [id number] 14:00:02 Test Item Value Reference Range Interpretation Comments POC-GLUCOSE METER 100 mg/dL 70-110 : TESTED A T [facility] 6720 (BEAKER) (test code = TERRI Hirsch [facility], 1538) [address]: Felled Seam Operator Chainstitch/Techni wendy ID = [id number] for Denisha Smith POCT-GLUCOSE [id number] 12:19:11 Test Item Value Reference Range Interpretation Comments POC-GLUCOSE METER 120 mg/dL 70-110 H : TESTED A T [facility] 6720 (BEAKER) (test code = [facility], 1538) [address]: Felled Seam Operator Chainstitch/Techni wendy ID = [id number] for JOSE LUIS Cortez HEMOGLOBIN [id number] 09:28:00 Test Item Value Reference Range Interpretation Comments HEMOGLOBIN A1C (BEAKER) (test code = 8.1 % 4.3-6.1 H 368) POCT-GLUCOSE [id number] 07:44:00 Test Item Value Reference Range Interpretation Comments POC-GLUCOSE METER 130 mg/dL 70-110 H : TESTED A T [facility] 6720 (BEAKER) (test code = [facility], 1538) [address]: Felled Seam Operator Chainstitch/Techni wendy ID = [id number] for KRISSY FINNEGAN COMPREHENSIVE METABOLIC [id number] 06:55:00 Test Item Value Reference Range Interpretation [...] S NOT APPLICABLE FOR DIALYSIS PATIEN TS. Felled Seam Operator Chainstitch ID - PIAYA LCBC W/PLT COUNT & AUTO [id number] 05:55:00 Test Item Value Reference Range Interpretation [...] PERCENT (BEAKER) (test code = 2801) POCT-GLUCOSE [id number] 21:17:00 Test Item Value Reference Range Interpretation Comments POC-GLUCOSE METER 255 mg/dL 70-110 H : TESTED A T [facility] 6720 (BEAKER) (test code = [facility], 1538) [address]: Felled Seam Operator Chainstitch/Techni wendy ID = [id number] for ABHILASH MAJOR [id number] 11:22:39INTRA OP IMAGINGReason for exam:->abnormal imaging Fluoroscopic unit utilized for a procedure performed in the OR. No interpretation was requested. Refer to the operative report for findings. Refer to PACS for patient radiation dose information.POCT-GLUCOSE [id number] 07:45:00 Test Item Value Reference Range Interpretation Comments POC-GLUCOSE METER 155 mg/dL 70-110 H : TESTED A T [facility] 6720 (BEAKER) (test code = [facility], 1538) 62012: Felled Seam Operator Chainstitch/Techni wendy ID = [id number] for ED [facility], KATIE TISSUE [id number] 09:36:00Surgical Pathology Report Case: [id number] Authorizing Provider: Vinnie Oglesby Collected: 08/26/2019 12:43 PM MD Beatrice Ordering Location: [facility] Endoscopy Received: 08/26/2019 01:56 PM Serv ices Pathologist: Isac Cummins MD Specimen: Biopsy, Gastric, gastric polyp A. STOMACH, POLYP, BIOPSY: - ANTRAL MUCOSA WITH POLYPOID FOVEOLAR HYPERPLASIA - NEGATIVE FOR HELICOBACTER PYLORI ORGANISMS BY WARTHIN STARRY STAIN - NEGATIVE FOR INTESTINAL METAPLASIA, DYSPLASIA, MALIGNANCY Signing Pathologist Direct Phone Line: [phone] signed by Isac Cummins MD on 08/27/2019 at 9:36 [id number]: upper endoscopy, biopsyPre and postop diagnosis: acute pancreatitis A. Biopsy, gastricA. Received in formalin labeled with the patient's name, accession number and "gastric biopsy", with the additional description "gastric polyp" is one irregular winston-pink piece of muco bernard-covered soft tissue measuring 0.4 x 0.3 x [...] evaluated Immunohistochemistry technical testing was performed at [facility] Pathology Laboratory where itwas developed and its performance characteristics were determined. It has not been cleared or approved by the U.S. Food and Drug Administration. The FDA has determined that such clearance or approval is not necessary. The test is used for clinical purposes. It should not be regarded as investigationalor for research. This laboratory is certified under the Clinical Laboratory Improvement Amendments of 1988 (CLIA-88) as qualified to perform high complexity clinical laboratory testing.POCT-GLUCOSE [id number] 13:26:00 Test Item Value Reference Range Interpretation Comments POC-GLUCOSE METER 122 mg/dL 70-110 H : TESTED A T [facility] 6720 (TalentSky) (test code = [employer] [facility], 1538) [address]: Felled Seam Operator Chainstitch/Techni wendy ID = [id number] for Th Ilda louis POCT-GLUCOSE [id number] 11:40:00 Test Item Value Reference Range Interpretation Comments POC-GLUCOSE METER 137 mg/dL 70-110 H : TESTED A T [facility] 6720 (TalentSky) (test code = lensgenGA roundCorner [facility], 1538) [address]: Felled Seam Operator Chainstitch/Techni wendy ID = [id number] for [facility], KATIE COLON SEGMENT RESEC.NOT [id number] 19:21:00 RUN DATE: 11/14/18 [facility] PAGE 1 RUN TIME: 810 Specimen Inquiry RUN USER: INTERFACE --PATIENT: DAISY CARRION LOC: [facility] U #: [id number] AGE/SX: 58/F ROOM: [facility] RE11/11/18REG DR:Betito Collazo MD : 56 BED: A DIS: 11/13/18 STATUS: DIS Sharla TLOC: SPEC #: [id number] RECD: 11/11/18 STATUS: BRITTNY JIANG #: [id number] CRISTINO: 11/11/18- SUBM DR: Betito Collazo MD ENTERED: 11/11/18 SPTYPE: COLONR NIDIA DR: ORDERED: LEVEL V SURGICA CODES: [id number] - COLON, NOS PROCEDURES: LEVEL V SURGICA (Incomplete) TISSUES: COLON, NOS - RECTOSIGMOID DIVERTICULITIS CLINICAL HISTORY 58 year old, diverticulitis (wpd) FINAL DIAGNOSIS Designated "rectosigmoid diverticulitis", segmental resection: - diverticular disease with peridiverticular fibrosis - intestinal rings - unremarkable CPT code(s): 62819 pkg/wpd 11/13/18 GROSS DESCRIPTION ANATOMIC SOURCE OF TISSUE (per Requisition): Rectosigmoid diverticulitis The specimen is received in a formalin-filled container, labeled with the patient's name and designated "rectosigmoid diverticulitis". The specimen consists of three portions of intestinal tissue a nd two separate winston unremarkable intestinal rings. The intestinal rings measure 1.5 and 3.0 cm. One section from each piece is submitted in A1. The two smaller portions of intestinal mucosa measure 1.6and 5.0 cm and contains unremarkable mucosa and surrounding tissue. Swiss Type Screw Machine Operator sections are submitted in A2. [...] Specimen Inquiry RUN USER: INTERFACE SPEC #: [id number] PATIENT: DAISY CARRION #[id number] (Continued) - GROSS DESCRIPTION (Continued) 1.0 cm and containing green-brown fecal material. No discrete perforation or discoloration in those areas are noted. Swiss Type Screw Machine Operator sections of the intestine with the diverticula are submitted in A3 - A8. Examination of attached adipose tissue reveals no discrete lymph nodes. Representativesections are submitted in A9 - A16. Marakana/wpd 11/11/18 @ 2314 MICROSCOPIC DESCRIPTION The specimen consists of a segment of rectosigmoid colon containing numerous diverticula which extend through the muscularis into the rectosigmoid adipose tissue. Foci of fibrosis are present adjacent to the diverticula. No granulomas, dysplasia or neoplasia are identified. The intestinal rings are unremarkable. pkg/wpd 11/13/18 Signed Deena Storm 11/13/181920 END OF REPORT [id number] 07:10:00 Test Item Value Reference Range Interpretation Comments GLUHUSSAIN (test code = GLUBED) 180 mg/dL 65-110 H COMPREHENSIVE METABOLIC [id number] 05:48:00 Test Item Value Reference Range Interpretation [...] 106 units/L 46-116 N code = ALKP) [id number] 05:48:00 Test Item Value Reference Range Interpretation Comments MAGNESIUM (test code = MAG) 1.8 mg/dL 1.8-2.4 N CBC W/AUTO [id number] 04:49:00 Test Item Value Reference Range Interpretation [...] REQUIRED (test NORMAL NORMAL code = PLTMR) [id number] 21:57:00 Test Item Value Reference Range Interpretation Comments GLUBED (test code = GLUBED) 278 mg/dL 65-110 H [id number] 17:26:00 Test Item Value Reference Range Interpretation Comments GLUBED (test code = 292 mg/dL 65-110 H Hypoglyc emic Protoco GLUBED) [id number] 12:11:00 Test Item Value Reference Range Interpretation Comments GLUBED (test code = GLUBED) 131 mg/dL 65-110 H [id number] 07:23:00 Test Item Value Reference Range Interpretation Comments GLUBED (test code = GLUBED) 110 mg/dL 65-110 N CHEMISTRY 7 [id number] 05:23:00 Test Item Value Reference Range Interpretation [...] code = CA) 7.8 mg/dL 8.4-10.2 L [id number] 05:23:00 Test Item Value Reference Range Interpretation Comments MAGNESIUM (test code = MAG) 1.8 mg/dL 1.8-2.4 N CBC W/AUTO [id number] 05:19:00 Test Item Value Reference Range Interpretation [...] REQUIRED (test NORMAL NORMAL code = PLTMR) [id number] 22:07:00 Test Item Value Reference Range Interpretation Comments GLUBED (test code = GLUBED) 171 mg/dL 65-110 H [id number] 17:41:00 Test Item Value Reference Range Interpretation Comments GLUBED (test code = GLUBED) 157 mg/dL 65-110 H [id number] 13:26:00 Test Item Value Reference Range Interpretation Comments GLUBED (test code = GLUBED) 154 mg/dL 65-110 H [id number] 06:54:00 Test Item Value Reference Range Interpretation Comments GLUBED (test code = GLUBED) 143 mg/dL 65-110 H CHEMISTRY 7 [id number] 13:07:00 Test Item Value Reference Range Interpretation [...] = CA) 8.5 mg/dL 8.4-10.2 N HGB [id number] 12:51:00 Test Item Value Reference Range Interpretation Comments HEMOGLOBIN (test code = HGB) 13.6 g/dL 10.7-13.9 N HEMATOCRIT (test code = HCT) 40.3 % 32.1-42.1 N
[2022-03-08] MEDS ORDERED: FAMOTIDINE 20 MG/2 ML VIAL IV ONE (18:05)
[2022-03-08] MEDS ORDERED: KETOROLAC 30 MG/ML INJ ONE (18:05)
[2022-03-08] MEDS ORDERED: NA CHLORIDE 0.9% 1,000 ML ONE (18:06)
[2022-03-08 18:31] LABS: Absolute Lymphocytes (CBC) 2.5 K/uL (0.7-4.9); Hematocrit 41.9 % (36.0-45.0); Lymphocytes % 28.3 % (15.3-44.8); MCV 86.6 fL (80-100); MPV 7.6 fL (7.6-11.3); RBC Red Blood Cell Count 4.84 M/uL (3.86-4.86)
[2022-03-08 18:44] LABS: Albumin 3.6 g/dL (3.4-5.0); Bilirubin Total 0.5 mg/dL (0.2-1.0); Magnesium 2.3 mg/dL (1.8-2.4); Potassium 3.7 mmol/L (3.5-5.1); Protein, Total 8.5 g/dL (6.4-8.2)
[2022-03-08] MEDS ORDERED: SIMETHICONE 80 MG TAB ONE ×2 (19:13→19:17)
--- NOTE | 2022-03-08 19:19 | EDPHYS ---
Physician Documentation [facility] Name: Robyn Carrion Age: 61 yrs Sex: Female : 1960 Arrival Date: 03/08/2022 Time: 17:36 Bed 30 Private MD: ED Physician Chas Leal HPI: 03/08 18:52 This 61 yrs old Female presents to ER via Ambulatory with complaints of snw Abdominal Pain. 18:52 The patient presents with abdominal pain in the epigastric area, in the left upper snw quadrant. Onset: The symptoms/episode began/occurred chronic but feeling more sharp. The symptoms do not radiate. Associated signs and symptoms: none. The symptoms are described as crampy, sharp. Severity of pain: At its worst the pain was severe. The patient has experienced similar episodes in the past, chronically, with the last episode occurring 02/11/22. The patient has been recently seen by a physician: with similar presenting complaints. Historical: - Allergies: 17:38 Codeine; ll1 17:38 HYDROCODONE; ll1 - Home Meds: 19:53 atorvastatin Oral [Active]; Carafate 1 gram Oral tab 1 tab 4 times per day [Active]; eh3 Creon Oral [Active]; Dicyclomine Oral [Active]; Lantus Sub-Q [Active]; lisinopril Oral [Active]; Protonix Oral [Active]; - PMHx: 17:38 fernando esophageal disease; cricopharyngeal spasm; Hernia; High Cholesterol; ll1 Hypertensive disorder; IDDM; Pancreatitis; vericose vein; - PSHx: 17:38 colon removal; Cholecystectomy; ercp; hernia repair; hysterectomy; bladder prolapse SX; ll1 polyp removed; - Immunization history:: Client reports receiving the 2nd dose of the Covid vaccine. - Social history:: Smoking status: Patient denies any tobacco usage or history of. ROS: 18:52 Constitutional: Negative for fever, chills, and weight loss, Eyes: Negative for injury, snw pain, redness, and discharge, ENT: Negative for injury, pain, and discharge, Neck: Negative for injury, pain, and swelling, Cardiovascular: Negative for chest pain, palpitations, and edema, Respiratory: Negative for shortness of breath, cough, wheezing, and pleuritic chest pain, Back: Negative for injury and pain, : Negative for injury, bleeding, discharge, and swelling, MS/Extremity: Negative for injury and deformity, Skin: Negative for injury, rash, and discoloration, Neuro: Negative for headache, weakness, numbness, tingling, and seizure, Psych: Negative for depression, anxiety, suicide ideation, homicidal ideation, and hallucinations. 18:52 Abdomen/GI: Positive for abdominal pain, abdominal cramps, of the left upper quadrant. Exam: 18:51 Constitutional: This is a well developed, well nourished patient who is awake, alert, snw and in no acute distress. Head/Face: Normocephalic, atraumatic. Eyes: Pupils equal round and reactive to light, extra-ocular motions intact. Lids and lashes normal. Conjunctiva and sclera are non-icteric and not injected. Cornea within normal limits. Periorbital areas with no swelling, redness, or edema. ENT: Nares patent. No nasal discharge, no septal abnormalities noted. Tympanic membranes are normal and external auditory canals are clear. Oropharynx with no redness, swelling, or masses, exudates, or evidence of obstruction, uvula midline. Mucous membranes moist. Neck: Trachea midline, no thyromegaly or masses palpated, and no cervical lymphadenopathy. Supple, full range of motion without nuchal rigidity, or vertebral point tenderness. No Meningismus. Chest/axilla: Normal chest wall appearance and motion. Nontender with no deformity. No lesions are appreciated. Cardiovascular: Regular rate and rhythm with a normal S1 and S2. No gallops, murmurs, or rubs. Normal PMI, no JVD. No pulse deficits. Respiratory: Lungs have equal breath sounds bilaterally, clear to auscultation and percussion. No rales, rhonchi or wheezes noted. No increased work of breathing, no retractions or nasal flaring. Back: No spinal tenderness. No costovertebral tenderness. Full range of motion. Skin: Warm, dry with normal turgor. Normal color with no rashes, no lesions, and no evidence of cellulitis. MS/ Extremity: Pulses equal, no cyanosis. Neurovascular intact. Full, normal range of motion. Neuro: Awake and alert, GCS 15, oriented to person, place, time, and situation. Cranial nerves II-XII grossly intact. Motor strength 5/5 in all extremities. Sensory grossly intact. Cerebellar exam normal. Normal gait. Psych: Awake, alert, with orientation to person, place and time. Behavior, mood, and affect are within normal limits. 18:51 Abdomen/GI: Inspection: abdomen appears normal, Bowel sounds: normal, Palpation: moderate abdominal tenderness, in the left upper quadrant. Vital Signs: 17:40 BP 182 / 114; Pulse 85; Resp 16; Temp 97.5; Pulse Ox 100% ; Weight 69.85 kg; Height 5 ll1 ft. 4 in. (162.56 cm); Pain 8/10; 18:15 BP 159 / 82; Pulse 73; Resp 18; Pulse Ox 99% on R/A; eh3 18:30 BP 158 / 82; Pulse 66; Resp 18; Pulse Ox 98% on R/A; eh3 19:00 BP 156 / 73; Pulse 58; Resp 18; Pulse Ox 98% on R/A; eh3 17:40 Body Mass Index 26.43 (69.85 kg, 162.56 cm) ll1 MDM: 17:54 Patient medically screened. snw 18:50 Data reviewed: vital signs, nurses notes. Data interpreted: Pulse oximetry: on room air snw is 100 %. Interpretation: normal. Counseling: I had a detailed discussion with the patient and/or guardian regarding: the historical points, exam findings, and any diagnostic results supporting the discharge/admit diagnosis, the presence of at least one elevated blood pressure reading (>120/80) during this emergency department visit, lab results, the need for outpatient follow up, for definitive care, to return to the emergency department if symptoms worsen or persist or if there are any questions or concerns that arise at home, chronic abd pain, need for f/u. Response to treatment: There is no appreciated change of the patient's symptoms at this time. Special discussion: Based on the patient's Hx, exam, and Dx evaluation, there is no indication for emergent surgery or inpatient Tx. It is understood by the patient/guardian that if the Sx's persist or worsen they need to return immediately for re-evaluation. Based on the history and exam findings, there is no indication for further emergent testing or inpatient evaluation. I discussed with the patient/guardian the need to see the nurse private duty for further evaluation of the symptoms. I discussed with the patient/guardian the need to see the primary care provider for further evaluation of the symptoms. 18:53 ED course: Pt to ED three times this month. Last CT abd on 02/10/22, unremarkable, snw 02/11/22 ast, alt, and alk similar to today. 03/08 17:57 Order name: CBC with Diff; Complete Time: 18:37 snw 03/08 17:57 Order name: CMP; Complete Time: 18:45 snw 03/08 17:57 Order name: Lipase; Complete Time: 18:45 snw 03/08 17:57 Order name: Magnesium; Complete Time: 18:45 snw 03/08 17:57 Order name: IV Saline Lock; Complete Time: 18:24 snw 03/08 17:57 Order name: Labs collected and sent; Complete Time: 18:24 snw 03/08 18:56 Order name: Recheck Vital Signs; Complete Time: 19:02 snw Administered Medications: 18:15 Drug: NS 0.9% 1000 ml Route: IV; Rate: 1 bolus; Site: left antecubital; 3 19:19 Follow up: IV Status: Completed infusion; IV Intake: 1000ml [facility] 18:15 Drug: Ketorolac 30 mg Route: IVP; Site: left antecubital; 3 19:19 Follow up: Response: Pain is unchanged, physician notified 3 18:17 Drug: Pepcid (famotidine) 20 mg Route: IVP; Site: left antecubital; 3 19:19 Follow up: Response: No adverse reaction 3 19:17 Drug: Simethicone 240 mg Route: PO; 3 19:53 Follow up: Response: No adverse reaction [facility] Disposition Summary: 03/08/22 19:18 Discharge Ordered Location: Home snw Condition: Stable snw Diagnosis - Upper abdominal pain, unspecified snw Followup: snw - With: Emergency Department - When: As needed - Reason: Worsening of condition Followup: snw - With: Private Physician - When: 2 - 3 days - Reason: Recheck today's complaints, Continuance of care, Re-evaluation by your physician Discharge Instructions: - Discharge Summary Sheet snw - Abdominal Pain, Adult snw - Colic snw - Pain Without a Known Cause snw - Rehydration, Adult snw - Gastroparesis snw Forms: - Medication Reconciliation Form snw - Thank You Letter snw - Antibiotic Education snw - Prescription Opioid Use snw Addendum: 03/13/2022 04:20 Co-signature as Attending Physician, Chas Leal MD I agree with the assessment and r t plan of care. Signatures: Dispatcher [employer] EDMS Felicia Obrien, [facility] BLOOD BANK LABORATORY PROFESSIONAL-Csnw Hamlet Cochran RN RN ll1 Tamar Duckworth RN RN eh3 Chas Leal MD MD rt
--- NOTE | 2022-03-08 19:19 | ER ---
Nurse's Notes [facility] Name: Robyn Carrion Age: 61 yrs Sex: Female : 1960 Arrival Date: 03/08/2022 Time: 17:36 Bed 30 Private MD: Diagnosis: Upper abdominal pain, unspecified Presentation: 03/08 17:40 Chief complaint: Patient states: Upper abd pain for over 2 weeks. Coronavirus screen: 1 Vaccine status: Patient reports receiving the 2nd dose of the covid vaccine. Client denies travel out of the [place] in the last 14 days. At this time, the client does not indicate any symptoms associated with coronavirus-19. Ebola Screen: Patient denies travel to an Ebola-affected area in the 21 days before illness onset. Initial Sepsis Screen: Does the patient meet any 2 criteria? No. Patient's initial sepsis screen is negative. Does the patient have a suspected source of infection? Yes: Acute abdominal pain. Risk Assessment: Do you want to hurt yourself or someone else? Patient reports no desire to harm self or others. Onset of symptoms was February 14, 2022. 17:40 Method Of Arrival: Ambulatory 1 17:40 Acuity: DARA 2 ll1 Triage Assessment: 17:48 General: Appears uncomfortable, Behavior is cooperative, appropriate for age. Pain: iw Complains of pain in abdomen Pain currently is 8 out of 10 on a pain scale. Quality of pain is described as aching, sharp. GI: Reports upper abdominal pain. Historical: - Allergies: 17:38 Codeine; ll1 17:38 HYDROCODONE; ll1 - Home Meds: 19:53 atorvastatin Oral [Active]; Carafate 1 gram Oral tab 1 tab 4 times per day [Active]; eh3 Creon Oral [Active]; Dicyclomine Oral [Active]; Lantus Sub-Q [Active]; lisinopril Oral [Active]; Protonix Oral [Active]; - PMHx: 17:38 fernando esophageal disease; cricopharyngeal spasm; Hernia; High Cholesterol; ll1 Hypertensive disorder; IDDM; Pancreatitis; vericose vein; - PSHx: 17:38 colon removal; Cholecystectomy; ercp; hernia repair; hysterectomy; bladder prolapse SX; ll1 polyp removed; - Immunization history:: Client reports receiving the 2nd dose of the Covid vaccine. - Social history:: Smoking status: Patient denies any tobacco usage or history of. Screenin:00 Abuse screen: Denies threats or abuse. Denies injuries from another. Nutritional eh3 screening: No deficits noted. Tuberculosis screening: No symptoms or risk factors identified. Fall Risk None identified. Assessment: 18:00 General: Appears distressed, uncomfortable, Behavior is cooperative, appropriate for eh3 age, anxious. Pain: Complains of pain in left upper quadrant Pain does not radiate. Pain currently is 8 out of 10 on a pain scale. Neuro: Level of Consciousness is awake, alert, obeys commands, Oriented to person, place, time, situation. Cardiovascular: Capillary refill < 3 seconds Patient's skin is warm and dry. Respiratory: Airway is patent Respiratory effort is even, unlabored, Respiratory pattern is regular, symmetrical. GI: Abdomen is round non-distended, Bowel sounds present X 4 quads. Abdomen is tender to palpation X 4 quads. Reports upper abdominal pain. : No signs and/or symptoms were reported regarding the genitourinary system. EENT: No signs and/or symptoms were reported regarding the EENT system. Derm: No signs and/or symptoms reported regarding the dermatologic system. Musculoskeletal: No signs and/or symptoms reported regarding the musculoskeletal system. 19:00 Reassessment: Patient and/or family updated on plan of care and expected duration. Pain eh3 level reassessed. Patient is alert, oriented x 3, equal unlabored respirations, skin warm/dry/pink. Vital Signs: 17:40 BP 182 / 114; Pulse 85; Resp 16; Temp 97.5; Pulse Ox 100% ; Weight 69.85 kg; Height 5 ll1 ft. 4 in. (162.56 cm); Pain 8/10; 18:15 BP 159 / 82; Pulse 73; Resp 18; Pulse Ox 99% on R/A; eh3 18:30 BP 158 / 82; Pulse 66; Resp 18; Pulse Ox 98% on R/A; eh3 19:00 BP 156 / 73; Pulse 58; Resp 18; Pulse Ox 98% on R/A; eh3 17:40 Body Mass Index 26.43 (69.85 kg, 162.56 cm) ll1 ED Course: 17:36 Patient arrived in ED. as 17:41 Triage completed. ll1 17:41 Arm band placed on Patient placed in an exam room, on a stretcher. ll1 17:52 Felicia Obrien [facility]C [facility] snw 17:52 Chas Leal MD is Attending Physician. snw 17:59 Tamar Duckworth, HAIDER is Primary Nurse. eh3 18:00 Patient has correct armband on for positive identification. Bed in low position. Call eh3 light in reach. Side rails up X2. Pulse ox on. NIBP on. Door closed. Noise minimized. Lights dimmed. Warm blanket given. 18:10 Inserted saline lock: 20 gauge in left antecubital area, using aseptic technique. Blood eh3 collected. 19:54 No provider procedures requiring assistance completed. IV discontinued, intact, eh3 bleeding controlled, No redness/swelling at site. Pressure dressing applied. Administered Medications: 18:15 Drug: NS 0.9% 1000 ml Route: IV; Rate: 1 bolus; Site: left antecubital; eh3 19:19 Follow up: IV Status: Completed infusion; IV Intake: 1000ml eh3 18:15 Drug: Ketorolac 30 mg Route: IVP; Site: left antecubital; eh3 19:19 Follow up: Response: Pain is unchanged, physician notified eh3 18:17 Drug: Pepcid (famotidine) 20 mg Route: IVP; Site: left antecubital; eh3 19:19 Follow up: Response: No adverse reaction eh3 19:17 Drug: Simethicone 240 mg Route: PO; eh3 19:53 Follow up: Response: No adverse reaction eh3 Medication: 19:54 VIS not applicable for this client. eh3 Intake: 19:19 IV: 1000ml; Total: 1000ml. eh3 Outcome: 19:18 Discharge ordered by . snw 19:54 Discharged to home ambulatory. eh3 19:54 Condition: stable 19:54 Discharge instructions given to patient, Instructed on discharge instructions, follow up and referral plans. Demonstrated understanding of instructions, follow-up care. 19:54 Patient left the ED. eh3 Signatures: Felicia Obrien FNP-C FOOD AND NUTRITION SUPERVISOR-Csnw Salma Kumar as Mariella Bower RN RN Hamlet Cochran RN RN 1 Duckworth, Tamar, RN RN eh3
[2022-03-08 20:03] VITALS: TEMP 97.5
[2022-03-08 20:16] VITALS: O2SAT 98
[2022-03-08 20:17] VITALS: BP 156/73
== END 2022-03-08 19:54 | disposition home or self-care (01) ==
LOC: ER 17:34
DX: R10.12 Left upper quadrant pain (principal); E11.9 Type 2 diabetes mellitus without complications; I10 Essential (primary) hypertension; Z88.5 Allergy status to narcotic agent
CPT/HCPCS: 96361; 85025; 36415; 83735; 83690; 80053; 96375; 96374; 99284; J7030

== ENCOUNTER 2022-04-12 10:48 | Emergency (ER) | payer OTHER ==
--- OUTSIDE RECORDS SUMMARY | 2022-04-12 10:55 | XMS REPORT | Continuity of Care Document ---
:1960 Author Organization [facility] t Address [address] [place] [address] Care Team Providers Name Role Phone Berry Suero Primary Care Physician VINNIE OGLESBY Attending Clinician Unavailable VINNIE OGLESBY Attending Clinician Unavailable Shabbir EPPS, Vinnie Barron Attending Clinician [phone] Jocelin Kimble MD Attending Clinician WILL ANTONIO D.O. Attending Clinician Unavailable CYRIL MACK M.D. Attending Clinician Unavailable VINNIE OGLESBY Admitting Clinician Unavailable Payers Payer Name Policy Type Policy Number Effective Date Expiration Date S mickey MEDICARE A B [id number] 2001 00:00:00 MEDICAID [facility] [id number] 2017 00:00:00 MEDICARE PART A [id number] \\T\\ B - MEDICARE [facility]-MEDICAID - [id number] MEDICAID Problems Condition Condition Condition Status Onset Resolution Last Treating Co mments Source Name Details Category Date Date Treatment Clinician Date Biliary Biliary Disease [facility] Medical [address] [place] [address] 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[facility] diabetes diabetes 4-15 [facility] mellitus mellitus 00:00: 00 Medicin e Hyperchole Hyperchole Disease Active [facility] sterolemia sterolemia 4-15 [facility] 00:00: 00 Medicin e Pancreatit Pancreatit Disease Active [facility]annah is is 4-15 College 00:00: Medicin e [...] 7-31 [facility] [place] Hydrocod Propensi Active Method i one ty to 11-01 st adverse 00:00: Hospita reaction 00 l s to drug Family History Family Member Diagnosis Comments Start Date Stop Date Source Unknown Family Family history of Other [place] [facility] Member diabetes mellitus Unknown Family Family history of Other [place] [facility] Member hypertension Unknown Family Family history of Other [place] [facility] Member Heart problem Natural father Diabetes [facility] Natural father Hypertension [facility] mother Diabetes [facility] Natural mother Heart disease [facility] Natural mother Hypertension [facility] Social History Social Habit Start Date Stop Date Quantity Comments Source History of tobacco Passive smoker [employer] [facility] use [facility] Alcohol Std Drinks Hospit al History [facility] Exposure to 2022-01-23 2022-02-[address] [facility] SARS-CoV-2 (event) 00:00:00 11:41:00 Medica l Center History SDWA 2019-11-17 2019-11-[address] [facility] Alcohol Comment 00:00:00 00:00:00 Medical C enter Tobacco Comment 2019-08-15 2019-08-15 quit [address] [facility] 00:00:00 00:00:00 [facility] Center Cigarettes smoked 2019-08-15 2019-08-[address] [facility] current (pack per 00:00:00 00:00:00 Medical Center day) - Reported Cigarette 2019-08-15 2019-08-[address] [facility] pack-years 00:00:00 00:00:00 Medical Center Tobacco use and 2019-08-15 2019-08-[address] [facility] [address] [facility] exposure 00:00:00 00:00:00 [facility] Center Alcohol intake 2018-12-10 2018-12-10 Lifetime [facility] 00:00:00 00:00:00 non-drinker Hospital (finding[facility] 2018-11-01 2018-11-01 1 [facility] Alcohol Frequency 00:00:00 00:00:00 Hospita l Sex Ass[birth year] At [birth year] [facility] 00:00:00 00:00:00 Hospital Smoking Status Start Date Stop Date Source Never smoked tobacco [facility] Former smoker 2019-08-15 00:00:00 2019-08-15 00:00:[address] [facility] Medications Ordered Filled Start Stop Current [...] daily as needed . lipase/prot 2021-04 Yes [id number] Take [facility] 0-27 [id number] 36,000 [facility] (CREON 14:58: 3D Units [...] daily as needed . lipase/prot 2021-04 Yes [id number] Q.[id number] Take [facility] 0-27 [id number] 36,000 [facility] (CREON 14:58: 3D Units [...] daily as needed . lipase/prot 2021-04 Yes [id number] Q.[id number] Take [facility] 0-27 [id number] 36,000 [facility] (CREON 14:58: 3D Units [...] daily as needed . lipase/prot 2021-04 Yes [id number] Q.[id number] Take [facility] 0-27 [id number] 36,000 [facility] (CREON 14:58: 3D Units [...] daily as needed . lipase/prot 2021-04 Yes [id number] Q.[id number] [facility] 0-27 [id number] 36,000 [facility] e (CREON 14:58: 3D Units [...] daily as needed . lipase/prot 2021-04 Yes [id number] Q.[id number] [facility] 0-27 [id number] 36,000 [facility] (CREON 14:58: 3D Units [...] :00 (six) Center hours. lipase/prot 2021-04 Yes [id number] Q.[id number] [facility] 0-26 [id number] 36,000 [facility] e (CREON 09:59: 3D Units [...] daily Medica l MG tablet 15 Night. Center lubiproston 2021-04 Yes 8ug Take [address] [facility] (AMITIZA) 0-26 by mouth 2 Romina kes 8 MCG 09:59: (two) Medical capsule 15 times Center daily as needed . [place] [facility] (AMITIZA) 01-04 [place] 8 MCG CAPS 13:11: 00:00 of 58 :00 Medicin e atorvastati Yes [facility] n (LIPITOR) 01-04 [place] 40 MG 13:11: of tablet 56 Medicin e dicyclomine Yes [facility] (BENTYL) 20 01-04 [place] MG tablet 13:11: of 56 Medicin e insulin Yes [facility] glargine 01-04 [place] (LANTUS) 13:11: of 100 UNIT/ML 56 Medicin injection e lisinopril Yes [facility] (PRINIVIL, 01-04 [place] ZESTRIL) 10 13:11: of MG tablet 56 Medicin e pantoprazol Yes [facility] e 01-04 [place] (PROTONIX) 13:11: of 40 MG 56 Medicin tablet e sucralfate Yes [facility] (CARAFATE) 01-04 [place] 1 g tablet 13:11: of 56 Medicin e rifAXIMin Yes 550mg Take 550 [place] [facility] 550 MG TABS 01-04 mg by [place] 00:00: mouth 3 of 00 times Medicin daily. e atorvastati Yes 40mg QD Take [address] [facility] (LIPITOR) 8-12 by mouth [facility] s 40 MG 13:03: daily. Medical tablet 21 Center dicyclomine Yes 20mg Take [address] (BENTYL) 20 8-12 by mouth [facility] s mg tablet 13:03: every 6 Medic al 21 (six) Center hours. insulin Yes QD Inject [facility] glargine 8-12 [...] daily as needed . lipase/prot 2020-0 Yes [id number] Q.[id number] [facility] 8-12 [id number] 36,000 [facility] e (CREON 13:03: 3D Units [...] daily as needed . lipase/prot 2020-0 Yes [id number] Q.[id number] [facility] 8-12 [id number] 36,000 [facility] (CREON 13:03: 3D Units [...] tramadol 2021- No TK 1 T PO [place] [facility] (ULTRAM) 50 5-28 12- Q 6 H PRN Co llege MG tablet 00:00: 00:00 FOR 5 DAYS o f 00 :00 Medicin e CREON [id number] 2019-0 Yes TK 2 CS PO [facility] units CPEP 2-11 WITH EACH Cristino ege 00:00: MEAL AND 1 of 00 C PO FOR Medicin EACH SNACK e promethazin 0 2021- No TK 1 T PO Eric [...] kg Systolic blood 2022-01-04 18:10:00 136 mm[Hg] [facility] pressure Medicine Diastolic blood 2022-01-04 18:10:00 78 mm[Hg] [facility] pressure Medicine Respiratory rate 2022-01-04 18:10:00 16 /min [facility] Body height 2022-01-04 18:10:00 157.5 cm [facility] Body weight 2022-01-04 18:10:00 69.582 kg [facility] BMI 2022-01-04 18:10:00 28.06 kg/m2 [facility] HEIGHT 2019-10-20 00:00:00 157.5 cm WEIGHT 2019-10-20 00:00:00 69.355 kg HEIGHT 2019-08-13 00:00:00 157.5 cm WEIGHT 2019-08-13 00:00:00 70.716 kg Systolic blood 2022-02-02 14:30:00 158 mm[Hg] [facility] Diastolic blood 2022-02-02 14:30:00 66 mm[Hg] [facility] Heart rate 2022-02-02 14:30:00 60 /min [facility] Body temperature 2022-02-02 14:30:00 36.44 Alysia [facility] Respiratory rate 2022-02-02 14:30:00 18 /min [facility] Oxygen saturation in 2022-02-02 14:30:00 100 /min [facility] Arterial blood by Medical Ce nter Pulse oximetry Body height 2022-02-02 11:25:00 157.5 cm [facility] Body weight 2022-02-02 11:25:00 68.448 kg [facility] BMI 2022-02-02 11:25:00 27.60 kg/m2 [facility] Body height 2022-02-01 10:01:00 157.5 cm [facility] Body weight 2022-02-01 10:01:00 69.4 kg [facility] BMI 2022-02-01 10:01:00 27.98 kg/m2 [facility] Height 2018-05-24 10:25:00 62 [in_us] [facility] [...] ysicians Calculated Temperature 2018-04-26 10:21:00 97 [degF] [place] [facility] Heart Rate 2018-04-26 10:21:00 73 /min [facility] Procedures Procedure Date / Time Performing Source Performed Clinician REPORT OF PROCEDURE - ENDOSCOPY 2022-02-[address] [facility] URL 14:02:35 [facility] POCT-GLUCOSE METER 2022-02-[address] [facility] 13:48:00 [facility] TISSUE EXAM 2022-02-[address] [facility] 13:28:00 [facility] ESOPHAGOGASTRODUODENOSCOPY, WITH 2022-02-[address] [facility] SUBMUCOSAL INJECTION 13:00:[address] [facility] [address] ESOPHAGOGASTRODUODENOSCOPY, WITH 2022-02-[address] [facility] ENDOSCOPIC US 13:00:00 [facility] ESOPHAGOGASTRODUODENOSCOPY 2022-02-02 [facility] 13:00:00 [facility] ULTRASOUND, UPPER GI TRACT, [facility]22-02-[facility] ENDOS[facility], WITH FINE NEEDLE 13:00:00 [facility] ASPIRATION ESOPHAGOGASTRODUODENOSCOPY, WITH 2022-02-02 [facility] ENDOSCOPIC MUCOSAL RESECTION 13:00:00 [facility] POCT-GLUCOSE METER 2022-02-[address] [facility] 12:05:00 [facility] PANCREATIC ELASTASE - FECAL 2022-01-13 [facility] 16:03:00 of Medicine Plan of Care Planned Activity Planned Date Details Comments Source Future Scheduled 2023-02-[address] [facility] Test 00:00:00 [facility] Screening (12+) [code = Tobacco Cessation Counseling and Screening (12+)] Future Scheduled 2023-02-[address] [facility] Test 00:00:00 [facility] r Screening (12+) [code = Tobacco Cessation Counseling and Screening (12+)] Future Scheduled 2022-04-[address] [facility] Test 00:00:00 (12+) [code = [facility] DEPRESSION SCREENING (12+)] Future Scheduled 2022-03-30 COVID-19 VACCINE (#1) [facility] 14:02:36 [code = COVID-19 Hospital VACCINE (#1)] Future Scheduled 2022-03-30 Screening for malignant [facility] Test 14:02:36 neoplasm of cervix Hospital (procedure) [code = 451054466] Future Scheduled 2022-03-30 BREAST CANCER SCREENING [facility] Test 14:02:36 [code = BREAST CANCER Hospit al SCREENING] Future Scheduled 2022-03-30 COLONOSCOPY SCREENING [facility] 14:02:36 [code = COLONOSCOPY Hospital SCREENING] Future Scheduled 2022-03-30 SHINGLES VACCINES (1 of [facility] Test 14:02:36 2) [code = SHINGLES Hospital VACCINES (1 of 2)] Future Scheduled 2022-03-30 INFLUENZA VACCINE [code [facility] 14:02:36 = INFLUENZA VACCINE] Hospita l Future Scheduled 2022-02-09 HEPATITIS B VACCINES (1 [facility] Test 15:54:46 of 3 - 3-dose series) Hospit al [code = HEPATITIS B VACCINES (1 of 3 - 3-dose series)] Future Scheduled 2022-02-09 COVID-19 VACCINE (#1) [facility] 15:54:46 [code = COVID-19 Hospital VACCINE (#1)] Future Scheduled 2022-02-09 Screening for malignant [facility] Test 15:54:46 neoplasm of cervix Hospital (procedure) [code = 720396402] Future Scheduled 2022-02-09 BREAST CANCER SCREENING [facility] Test 15:54:46 [code = BREAST CANCER Hospit al SCREENING] Future Scheduled 2022-02-09 COLONOSCOPY SCREENING [facility] 15:54:46 [code = COLONOSCOPY Hospital SCREENING] Future Scheduled 2022-02-09 SHINGLES VACCINES (1 of [facility] Test 15:54:46 2) [code = SHINGLES Hospital VACCINES (1 of 2)] Future Scheduled 2022-02-09 INFLUENZA VACCINE [code [facility] Test 15:54:46 = INFLUENZA VACCINE] Hospita l Future Scheduled 2022-02-09 HEPATITIS B VACCINES (1 [facility] Test 15:54:46 of 3 - 3-dose series) Hospit al [code = HEPATITIS B VACCINES (1 of 3 - 3-dose series)] Future Scheduled 2022-02-09 COVID-19 VACCINE (#1) [facility] 15:54:46 [code = COVID-19 Hospital VACCINE (#1)] Future Scheduled 2022-02-09 Screening for malignant [facility] Test 15:54:46 neoplasm of cervix Hospital (procedure) [code = 558773355] Future Scheduled 2022-02-09 BREAST CANCER SCREENING [facility] Test 15:54:46 [code = BREAST CANCER Hospit al SCREENING] Future Scheduled 2022-02-09 COLONOSCOPY SCREENING [facility] 15:54:46 [code = COLONOSCOPY Hospital SCREENING] Future Scheduled 2022-02-09 SHINGLES VACCINES (1 of [facility] Test 15:54:46 2) [code = SHINGLES Hospital VACCINES (1 of 2)] Future Scheduled 2022-02-09 INFLUENZA VACCINE [code [facility] Test 15:54:46 = INFLUENZA VACCINE] Hospita l Future Scheduled 2022-02-09 HEPATITIS B VACCINES (1 [facility] Test 15:54:46 of 3 - 3-dose series) Hospit al [code = HEPATITIS B VACCINES (1 of 3 - 3-dose series)] Future Scheduled 2022-02-09 COVID-19 VACCINE (#1) [facility] 15:54:46 [code = COVID-19 Hospital VACCINE (#1)] Future Scheduled 2022-02-09 Screening for malignant [facility] Test 15:54:46 neoplasm of cervix Hospital (procedure) [code = 726059167] Future Scheduled 2022-02-09 BREAST CANCER SCREENING [facility] Test 15:54:46 [code = BREAST CANCER Hospit al SCREENING] Future Scheduled 2022-02-09 COLONOSCOPY SCREENING [facility] 15:54:46 [code = COLONOSCOPY Hospital SCREENING] Future Scheduled 2022-02-09 SHINGLES VACCINES (1 of [facility] Test 15:54:46 2) [code = SHINGLES Hospital VACCINES (1 of 2)] Future Scheduled 2022-02-09 INFLUENZA VACCINE [code [facility] Test 15:54:46 = INFLUENZA VACCINE] Hospita l Future Scheduled 2022-02-06 HEPATITIS B VACCINES (1 [facility] Test 13:59:44 of 3 - 3-dose series) Hospit al [code = HEPATITIS B VACCINES (1 of 3 - 3-dose series)] Future Scheduled 2022-02-06 COVID-19 VACCINE (#1) [facility] 13:59:44 [code = COVID-19 Hospital VACCINE (#1)] Future Scheduled 2022-02-06 Screening for malignant [facility] Test 13:59:44 neoplasm of cervix Hospital (procedure) [code = 701054773] Future Scheduled 2022-02-06 BREAST CANCER SCREENING [facility] Test 13:59:44 [code = BREAST CANCER Hospit al SCREENING] Future Scheduled 2022-02-06 COLONOSCOPY SCREENING [facility] 13:59:44 [code = COLONOSCOPY Hospital SCREENING] Future Scheduled 2022-02-06 SHINGLES VACCINES (1 of [facility] Test 13:59:44 2) [code = SHINGLES Hospital VACCINES (1 of 2)] Future Scheduled 2022-02-06 INFLUENZA VACCINE [code [facility] Test 13:59:44 = INFLUENZA VACCINE] Hospita l Future Scheduled 2022-02-06 HEPATITIS B VACCINES (1 [facility] Test 13:59:44 of 3 - 3-dose series) Hospit al [code = HEPATITIS B VACCINES (1 of 3 - 3-dose series)] Future Scheduled 2022-02-06 COVID-19 VACCINE (#1) [facility] 13:59:44 [code = COVID-19 Hospital VACCINE (#1)] Future Scheduled 2022-02-06 Screening for malignant [facility] Test 13:59:44 neoplasm of cervix Hospital (procedure) [code = 048808335] Future Scheduled 2022-02-06 BREAST CANCER SCREENING [facility] Test 13:59:44 [code = BREAST CANCER Hospit al SCREENING] Future Scheduled 2022-02-06 COLONOSCOPY SCREENING [facility] 13:59:44 [code = COLONOSCOPY Hospital SCREENING] Future Scheduled 2022-02-06 SHINGLES VACCINES (1 of [facility] Test 13:59:44 2) [code = SHINGLES Hospital VACCINES (1 of 2)] Future Scheduled 2022-02-06 INFLUENZA VACCINE [code [facility] Test 13:59:44 = INFLUENZA VACCINE] Hospita l Future Scheduled 2022-01-14 Pneumococcal Combined Ba [facility] Test 13:58:24 (1 - PCV) [code = of Medicin e Pneumococcal Combined (1 - PCV)] Future Scheduled 2022-01-14 TETANUS SHOT (ADULT) [facility] Test 13:58:24 [code = TETANUS SHOT of Medi cine (ADULT)] Future Scheduled 2022-01-14 Diabetic foot [facility]ge Test 13:58:24 examination of Medicine (regime/therapy) [code = 112024232] Future Scheduled 2022-01-14 ANNUAL DIABETIC [facility] Test 13:58:24 RETINOPATHY SCREENING of Med icine [code = ANNUAL DIABETIC RETINOPATHY SCREENING] Future Scheduled 2022-01-14 BMI FOLLOW UP PLAN [facility] Test 13:58:24 [code = BMI FOLLOW UP of Med icine PLAN] Future Scheduled 2022-01-14 Hepatitis C screening [facility] Test 13:58:24 (procedure) [code = of Medic ine 540302317] Future Scheduled 2022-01-14 Human immunodeficiency B [facility] Test 13:58:24 virus screening of Medicine (procedure) [code = 931278804] Future Scheduled 2022-01-14 Screening for malignant [facility] Test 13:58:24 neoplasm of cervix of Medici ne (procedure) [code = 411959234] Future Scheduled 2022-01-14 MEDICARE AWV (Initial) B [facility] Test 13:58:24 [code = MEDICARE AWV of Medi cine (Initial)] Future Scheduled 2022-01-14 ZOSTER VACCINE (1 of 2) [facility] Test 13:58:24 [code = ZOSTER VACCINE of Ks dicine (1 of 2)] Future Scheduled 2022-01-14 FLU VACCINE > 6 MONTHS B [facility] Test 13:58:24 [code = FLU VACCINE > 6 of M edicine MONTHS] Future Scheduled 2022-01-14 Screening for malignant [facility] Test 13:58:24 neoplasm of colon of Medicin e (procedure) [code = 579202521] Future Scheduled 2022-01-14 Screening for malignant [facility] Test 13:58:24 neoplasm of breast of Medici ne (procedure) [code = 966047474] Future Scheduled 2022-01-14 COVID-19 Vaccine (#1) [facility] Test 13:58:24 [code = COVID-19 of Medicine Vaccine (#1)] Future Scheduled 2022-01-12 HEPATITIS B VACCINES (1 [facility] Test 15:05:35 of 3 - 3-dose series) Hospit al [code = HEPATITIS B VACCINES (1 of 3 - 3-dose series)] Future Scheduled 2022-01-12 COVID-19 VACCINE (#1) [facility] 15:05:35 [code = COVID-19 Hospital VACCINE (#1)] Future Scheduled 2022-01-12 Screening for malignant [facility] Test 15:05:35 neoplasm of cervix Hospital (procedure) [code = 832487372] Future Scheduled 2022-01-12 BREAST CANCER SCREENING [facility] Test 15:05:35 [code = BREAST CANCER Hospit al SCREENING] Future Scheduled 2022-01-12 COLONOSCOPY SCREENING [facility] 15:05:35 [code = COLONOSCOPY Hospital SCREENING] Future Scheduled 2022-01-12 SHINGLES VACCINES (1 of [facility] Test 15:05:35 2) [code = SHINGLES Hospital VACCINES (1 of 2)] Future Scheduled 2022-01-12 INFLUENZA VACCINE [code [facility] Test 15:05:35 = INFLUENZA VACCINE] Hospita l Future Scheduled 2022-01-12 HEPATITIS B VACCINES (1 [facility] Test 15:05:35 of 3 - 3-dose series) Hospit al [code = HEPATITIS B VACCINES (1 of 3 - 3-dose series)] Future Scheduled 2022-01-12 COVID-19 VACCINE (#1) [facility] 15:05:35 [code = COVID-19 Hospital VACCINE (#1)] Future Scheduled 2022-01-12 Screening for malignant [facility] Test 15:05:35 neoplasm of cervix Hospital (procedure) [code = 954947873] Future Scheduled 2022-01-12 BREAST CANCER SCREENING [facility] Test 15:05:35 [code = BREAST CANCER Hospit al SCREENING] Future Scheduled 2022-01-12 COLONOSCOPY SCREENING [facility] 15:05:35 [code = COLONOSCOPY Hospital SCREENING] Future Scheduled 2022-01-12 SHINGLES VACCINES (1 of [facility] Test 15:05:35 2) [code = SHINGLES Hospital VACCINES (1 of 2)] Future Scheduled 2022-01-12 INFLUENZA VACCINE [code [facility] Test 15:05:35 = INFLUENZA VACCINE] Hospita l Future Scheduled 2022-01-04 PANCREATIC ELASTASE - Ordered: [facility] [employer] Test 13:40:45 FECAL [code = 25274-6] 01/04/2022 of Me dicine Future Scheduled 2022-01-04 EGD W/EMR - GI DEPT 1 Occurrences [facility] Test 13:40:45 [code = NOCPT] starting of Medicine 01/04/2022 until 07/04/2022 Future Scheduled 2022-01-04 EUS WITH MAC, UPPER 1 Occurrences [place] [facility] [employer] Test 13:40:45 WITH FNA [code [...] [facility] Test 00:00:00 (Season Ended) [code = [facility] Center INFLUENZA VACCINE (Season Ended)] Future Scheduled 2020-04-[address] [facility] Test 00:00:00 (12+) [code = Medical Center DEPRESSION SCREENING (12+)] Future Scheduled 2008 SHINGLES VACCINES ([address] [facility] Test 00:00:00 [facility] Future Scheduled 2008 SHINGLES VACCINES ([address] [facility] Test 00:00:00 2) [code = SHINGLES Medical Center VACCINES (1 of 2)] Future Scheduled 2008 SHINGLES VACCINES ([address] [facility] Test 00:00:00 2) [code = SHINGLES [facility] Center VACCINES (1 of 2)] Future Scheduled 2008 SHINGLES VACCINES ([address] [facility] Test 00:00[facility]00 [facility] Future Scheduled [...] Lukes Test 00:00:00 2) [code = SHINGLES [facility] Center VACCINES (1 of 2)] Future Scheduled 2003-09-07 Lipid panel (procedure) [facility] Test 00:00:00 [code = 91466242] Medical Ce nter Future Scheduled 2003-09-07 Lipid panel (procedure) [facility] Test 00:00:00 [code = 45596878] Medical Ce nter Future Scheduled 2003-09-07 Lipid panel (procedure) [facility] Test 00:00:00 [code = 53281859] Medical Ce nter Future Scheduled 2003-09-07 Lipid panel (procedure) [facility] Test 00:00:00 [code = 37173870] Medical Ce nter Future Scheduled 2003-09-07 Lipid panel (procedure) [facility] Test 00:00:00 [code = 54003445] Medical Ce nter Future Scheduled 2003-09-07 Lipid panel (procedure) [facility] Test 00:00:00 [code = 07577043] Medical Ce nter Future Scheduled 2003-09-07 Lipid panel (procedure) [facility] Test 00:00:00 [code = 27099823] Medical Ce nter Future Scheduled 2003-09-07 Lipid panel (procedure) [facility] Test 00:00:00 [code = 48975597] Medical Ce nter Future Scheduled 2003-09-07 Lipid panel (procedure) [facility] Test 00:00:00 [code = 05639842] Medical Ce nter Future Scheduled 2002-10-08 MEDICARE [...] cervix Medical C enter (procedure) [code = 600912544] Future Scheduled 1979-09-07 Screening for malignant [facility] Test 00:00:00 neoplasm of cervix Medical C enter (procedure) [code = 624201856] Future Scheduled 1979-09-07 Screening for malignant [facility] Test 00:00:00 neoplasm of cervix Medical C enter (procedure) [code = 368791327] Future Scheduled 1979-09-07 Screening for malignant [facility] Test 00:00:00 neoplasm of cervix Medical C enter (procedure) [code = 219669352] Future Scheduled 1979-09-07 Screening for malignant [facility] Test 00:00:00 neoplasm of cervix Medical C enter (procedure) [code = 931719113] Future Scheduled 1979-09-07 Screening for malignant [facility] Test 00:00:00 neoplasm of cervix Medical C enter (procedure) [code = 743685133] Future Scheduled 1979-09-07 Screening for malignant [facility] Test 00:00:00 neoplasm of cervix Medical C enter (procedure) [code = 276011841] Future Scheduled 1979-09-07 Screening for malignant [facility] Test 00:00:00 neoplasm of cervix Medical C enter (procedure) [code = 476442128] Future Scheduled 1979-09-07 Screening for malignant [facility] Test 00:00:00 neoplasm of cervix Medical C enter (procedure) [code = 990645253] Future Scheduled 1977 DTAP/TDAP/TD VACCINES CH I [...] breast Medical C enter (procedure) [code = 398889257] Future Scheduled 1958 CT Colonography (combo) [facility] Test 00:00:00 [code = CT Colonography [facility] (combo)] Future Scheduled 1958 Screening for malignant [facility] Test 00:00:00 neoplasm of colon Medical Ce nter (procedure) [code = 279022161] Future Scheduled 1958 Screening for malignant [facility] Test 00:00:00 neoplasm of colon Medical Ce nter (procedure) [code = 609177894] Future Scheduled 1958 Screening for malignant [facility] Test 00:00:00 neoplasm of colon Medical Ce nter (procedure) [code = 013667799] Future Scheduled 1958 Screening for malignant [facility] Test 00:00:00 neoplasm of colon Medical Ce nter (procedure) [code = 175935458] Future Scheduled 1960 Sigmoidoscopy [code = [facility] S[facility]oscopy] Medical Cente r Future Scheduled 1958 Screening for malignant [facility] Test 00:00:00 neoplasm of breast Medical C enter (procedure) [code = 062245449] Future Scheduled 1958 CT Colonography (combo) [facility] 00:00:00 [code = CT Colonography [facility] (combo)] Future Scheduled 1958 Screening for malignant [facility] 00:00:00 neoplasm of colon Medical Ce [facility] (procedure) [code = 859902249] Future Scheduled 1958 Screening for malignant [facility] 00:00:00 neoplasm of colon Medical Ce nter (procedure) [code = 538694060] Future Scheduled 1958 Screening for malignant [facility] 00:00:00 neoplasm of colon Medical Ce nter (procedure) [code = 900084159] Future Scheduled 1958 Screening for malignant [facility] 00:00:00 neoplasm of colon Medical Ce nter (procedure) [code = 158746603] Future Scheduled 1958 Sigmoidoscopy [facility]code = [facility] Future Scheduled 1958 Screening for malignant [facility] 00:00:00 neoplasm of breast Medical C enter (procedure) [code = 413343225] Future Scheduled 1958 Screening for malignant [facility] 00:00:00 neoplasm of breast Medical C enter (procedure) [code = 486780756] Future Scheduled 1958 CT Colonography (combo) [facility] 00:00:00 [code = CT Colonography [facility] (combo)] Future Scheduled 1958 Screening for malignant [facility] 00:00:00 neoplasm of colon Medical Ce nter (procedure) [code = 267433862] Future Scheduled 1958 Screening for malignant [facility] 00:00:00 neoplasm of colon Medical Ce nter (procedure) [code = 084265431] Future Scheduled 1958 Screening for malignant [facility] 00:00:00 neoplasm of colon Medical Ce nter (procedure) [code = 671757184] Future Scheduled 1958 Screening for malignant [facility] 00:00:00 neoplasm of colon Medical Ce nter (procedure) [code = 570774048] Future Scheduled 1958 Screening for malignant [facility] 00:00:00 neoplasm of colon Medical Ce nter (procedure) [code = 150447386] Future Scheduled 1958 Sigmoidoscopy [facility]code = [facility]] Medical Cent[facility] r Future Scheduled 1958 Screening for malignant [facility] 00:00:00 neoplasm of breast Medical C enter (procedure) [code = 554209195] Future Scheduled 1958 CT Colonography (combo) [facility] 00:00:00 [code = CT Colonography [facility] (combo)] Future Scheduled 1958 Screening for malignant [facility] 00:00:00 neoplasm of colon Medical Ce nter (procedure) [code = 705145491] Future Scheduled 1958 Screening for malignant [facility] 00:00:00 neoplasm of colon Medical Ce nter (procedure) [code = 337682367] Future Scheduled 1958 Screening for malignant [facility] 00:00:00 neoplasm of colon Medical Ce nter (procedure) [code = 092914755] Future Scheduled 1958 Screening for malignant [facility] 00:00:00 neoplasm of colon Medical Ce nter (procedure) [code = 338323953] Future Scheduled 1958 Sigmoidoscopy [facility]code [facility]] Medical Cente r Future Scheduled 1958 Screening for malignant [facility] 00:00:00 neoplasm of breast Medical C enter (procedure) [code = 278998064] Future Scheduled 1958 CT Colonography (combo) [facility] 00:00:00 [code = [facility] ([facility])] Future Scheduled 1958 Screening for malignant [facility] 00:00:00 neoplasm of colon Medical Ce nter (procedure) [code = 663541710] Future Scheduled 1958 Screening for malignant [facility] 00:00:00 neoplasm of colon Medical Ce [facility]ter (procedure) [code = 018873196] Future Scheduled 1958 Screening for malignant [facility] 00:00:00 neoplasm of colon Medical Ce nter (procedure) [code = 962975910] Future Scheduled 1958 Screening for malignant [facility] 00:00:00 neoplasm of colon Medical Ce nter (procedure) [code = 527222992] Future Scheduled 1958 Sigmoidoscopy [facility]] Medical Cente r Future Scheduled 1958 Screening for malignant [facility] 00:00:00 neoplasm of breast Medical C enter (procedure) [code = 979791233] Future Scheduled 1958 CT Colonography (combo) [facility] 00:00:00 [code = CT [facility] ([facility])] Future Scheduled 1958 Screening for malignant [facility] 00:00:00 neoplasm of colon Medical Ce nter (procedure) [code = 033996966] Future Scheduled 1958 Screening for malignant [facility] 00:00:00 neoplasm of colon Medical Ce nter (procedure) [code = 820787842] Future Scheduled 1958 Screening for malignant [facility] 00:00:00 neoplasm of colon Medical Ce nter (procedure) [code = 531226627] Future Scheduled 1958 Screening for malignant [facility] 00:00:00 neoplasm of colon Medical Ce nter (procedure) [code = 120105392] Future Scheduled 1958 Sigmoidoscopy [facility]] Medical Cent[facility] r Future Scheduled 1958 Screening for malignant [facility] 00:00:00 neoplasm of breast Medical C enter (procedure) [code = 619189585] Future Scheduled 1958 CT Colonography (combo) [facility] 00:00:00 [code = CT [facility] (com[facility])] Future Scheduled 1958 Screening for malignant [facility] 00:00:00 neoplasm of colon Medical Ce nter (procedure) [code = 572762228] Future Scheduled 1958 Screening for malignant [facility] 00:00:00 neoplasm of colon Medical Ce nter (procedure) [code = 225149851] Future Scheduled 1958 Screening for malignant [facility] 00:00:00 neoplasm of colon Medical Ce nter (procedure) [code = 832043281] Future Scheduled 1958 Screening for malignant [facility] 00:00:00 neoplasm of colon Medical Ce nter (procedure) [code = 865007387] Future Scheduled 1958 Sigmoidoscopy [facility]code [facility]] Medical Cente r Future Scheduled 1958 Screening for malignant [facility] 00:00:00 neoplasm of breast Medical C enter (procedure) [code = 138576556] Future Scheduled 1958 CT Colonography (combo) [facility] 00:00:00 [code = CT [facility] ([facility])] Future Scheduled 1958 Screening for malignant [facility] 00:00:00 neoplasm of colon Medical Ce nter (procedure) [code = 203841021] Future Scheduled 1958 Screening for malignant [facility] 00:00:00 neoplasm of colon Medical Ce nter (procedure) [code = 745278660] Future Scheduled 1958 Screening for malignant [facility] 00:00:00 neoplasm of colon Medical Ce nter (procedure) [code = 016339137] Future Scheduled 1958 Screening for malignant [facility] 00:00:00 neoplasm of colon Medical Ce nter (procedure) [code = 106617605] Future Scheduled 1958 Sigmoidoscopy [code = [facility] [...] [facility] (procedure) [code = Hospital 319310796] Future Scheduled Screening for malignant [facility] neoplasm of cervix Hospital (procedure) [code = 378571232] Future Scheduled BREAST CANCER SCREENING [facility] [code = BREAST CANCER Hospit al SCREENING] Future Scheduled COLONOSCOPY SCREENING [facility] [code = COLONOSCOPY Hospital SCREENING] Future Scheduled SHINGLES VACCINES (#1) M ethodist Test [code = SHINGLES Hospital VACCINES (#1)] Future Scheduled INFLUENZA VACCINE [code [facility] = INFLUENZA VACCINE] Hospita l Encounters Start End Encounter Admission Attending Care Care Encounter Source Date/Time Date/Time Type Type Clinicians Facility Department ID 2021-01-11 Outpatient OTAN, [facility] Surgery [id number] [facility] 23:34:53 [facility] 2021-01-11 Outpatient OTAN, [facility] Surgery [id number] [facility] 20:32:36 [facility] 2021-01-11 Outpatient OTAN, [facility] Surgery [id number] [facility] 13:26:30 VINNIE 2022-02-02 2022-02-08 Outpatient JENNIFER OGLESBY [facility] [id number] [facility] 12:56:28 12:58:23 VINNIE cross of Medicin e 2022-02-02 2022-02-06 Outpatient JENNIFER OGLESBY [facility] [id number] [facility] 13:59:35 14:00:59 VINNIE cross of Medicin e 2022-02-02 2022-02-02 Outpatient [facility] [id number] [facility] 10:36:00 23:59:00 Jf 2022-02-02 2022-02-02 [facility] [id number] 10:36:00 14:56:00 Encounter [facility] 2022-02-02 2022-02-02 Outpatient EL [facility], [facility] Surgery [id number] SLE 10:36:00 14:56:00 [facility] 2022-02-02 2022-02-02 Surgery [facility], [facility] [id number] 13:00:00 14:30:00 [facility] 2022-02-02 2022-02-02 Surgery [facility], [facility] [id number] 13:00:00 14:30:00 [facility] 2022-02-02 2022-02-[address] [facility] [id number] [facility] 13:05:00 13:52:00 Event [facility] 2022-02-02 2022-02-[address] [facility] [id number] [facility] 13:05:00 13:52:00 Event [facility] 2022-02-02 2022-02-02 Travel [facility] [id number] [facility] 00:00:00 00:00:00 [facility] 2022-02-02 2022-02-02 Travel [facility] [id number] [facility] 00:00:00 00:00:00 [facility] 2022-02-01 2022-02-01 Outpatient EL SLE SLE [id number] SLE 10:15:55 23:59:00 2022-02-01 2022-02-01 [facility] [id number] 10:00:00 23:59:00 Encounter [facility] 2022-02-01 2022-02-01 [facility] [id number] 10:00:00 10:00:00 Encounter [facility] 2022-02-01 2022-02-01 Travel [facility] [id number] [facility] 00:00:00 00:00:00 [facility] 2022-02-01 2022-02-01 Travel [facility] [id number] [facility] 00:00:00 00:00:00 [facility] 2022-01-04 2022-01-04 Office JENNIFER OGLESBY [id number] [facility] 12:22:53 15:07:41 Visit VINNIE AMBULATOR [id number] College Y 0.2.7.2.686 of [id number] Medi holger 325 e 2021-02-02 2021-02-02 Outpatient JENNIFER OGLESBY [facility] [id number] [facility] 10:22:11 10:28:13 VINNIE Wigginsg e of Medicin e 2021-01-10 2021-01-10 Outpatient [facility] [id number] [facility] 12:56:42 12:56:42 Colleg e of Medicin e 2019-11-17 2019-11-17 Outpatient [facility] [id number] [facility] 00:00:00 00:00:00 2019-08-15 2019-08-15 Outpatient EL [facility] [id number] [facility] 00:00:00 00:00:00 2018-05-24 2018-05-24 RAFAT [place] [id number] [place] 10:30:00 10:30:00 t; WILL, Surgery Physi iliana ANTONIO D.O. Specialty lenin SOLIS D.O. 2018-04-26 2018-04-26 RAFAT [place] UTP [id number] [place] 10:15:00 10:15:00 t; WILL, Physi Patricia Estarda D.OIggy 2018-04-19 2018-04-19 RAFAT [place] UTP [id number] [place] 10:00:00 10:00:00 t; WILL, Physi Patricia Estrada D.O. 2018-03-27 2018-03-27 Appointlindsey MARISELA, UTP UTP [id number] [place] 10:30:00 10:30:00 t; WILL, Physi ci MARISELA D.O. ans WILL, D.O. 2018-03-22 2018-03-22 Appointlindsey MARISELA, UTP UTP [id number] [place] 10:30:00 10:30:00 t; WILL, Physi ci MARISELA D.O. ans WILL, D.O. 2018-03-06 2018-03-06 Appointmen FREDERICK, UTP UTP [id number] [place] 08:30:00 08:30:00 t; CYRIL MACK M.D. P hysici HANI, M.D. ans 2018-02-14 2018-02-14 Appointlindsey MARISELA, UTP UTP [id number] [place] 08:15:00 08:15:00 t; WILL, Physi ci MARISELA D.O. ans WILL, D.O. 2018-01-11 2018-01-11 Appointlindsey MARISELA, UTP UTP [id number] [place] 10:30:00 10:30:00 t; WILL, Physi ci MARISELA D.O. ans WILL D.O. Results Test Description Test Time Test Comments Results Result Comments Source Tissue Exam 2022-04-07 14:17:17 Test Item Value Reference Range Interpretation Comme nts Case Report (test code = 104) Surgical Pathology Report Case: [id number] Authorizing Provider: Vinnie Oglesby, Collected: 02/02/2022 01:28 PM Ordering Location: [facility] Endoscopy Received: 03/06/2022 11:30 AM Services Pathologist: Ladarius Ureña MD Specimen: Polyp, Gastric, via EMR DIAGNOSIS (test code = 3220) h5dpyDRfLNOqg8vvLGRdeYYbHeUaWsHtJiQ uYmpcdWMxIHtcc aBlWOeveUezFBFrBtslkkWlPDEjjTZjC1VedfrrFUcxQB2lCL 9sdZnsgNHpzPAsFFSbVmDeg6izi976dAYml5rwKAGMngftuRw 9rSolM87kr0S8YjbyY6hiCQLkJzkbkiDlisE1WCIlaWSbZqn3 RRBpfMBlrrYaEnGwMZGrqHHewYC1TSNjMV2rzaikLRnkHPpoQ OHwwpX6SUHivMYzL8BwGLOeXO1bhmyoYWV8IMbiNRRrEBD2Iv PlSLUjg6Amkgf9FjVvlHNpWSazgDXwblespeHhVSEqMVUATKm HFEMVBV2NJGSGZTEeHqdRJMlDHrBKAUGSEdwSWzKGP5oJNNyZ TUVSSe5KUGUUYwXWFlGRGMPUTOSLGOnbVrVcX63MGKJPGPPBD DDRT65QKJaFLOJSJK8JXASQL0MCGBJUWD5FSQeQXGhuK21LEH USXR2JRXwlP62QBfUWPLwCOgBeMZ7MQ4BEK7CUCOmQWAFISI5 WLrIOBQ1OOmELCHWRJMYETG3bRCYBGb0PTAGMKoEVWSWzH2YV ZB7KKBICSbARV6JlOJbNZnIOEFDHLtSLG4GTRJmOIHOsGGfbH YSiQGTPLAXOP3WRPoUFUZPCAHBWLV1NNpEkWI2dGUiJDoVXKO IRBC5XDALDNtZAJREFRFBkEGLeHQwYJUZQEjMBOXQQDF7FVS3 erQAdcOryhjBjGSwjz6IkOReoXGAkAX1eeMsiLSVsPE4sRXCq F1egvL2jkia2TqChWFEjNnZ3OGWcjbD4Cwi5USZgJRqzb8led 4WeSVReRQq4yZjuDeLxIUSam3keurZhOeIgVGVmYBAjRCHyeW HzI755c2jem8uabrMnpCP0RENmSXQ2XKswnaXbceB8OZskuUY eMpL7ISrdjbXzTTvtxkNwiaUlNaz9ATRpQ904NXW8jSvcp7qm TXV7VLQfTIAoNtZhQs8xyCLyA771ATZjDNDUHOQllHt6YKFrf gDvbjCvvKGYl875C551g5irFSKoieBozAiNphhvc0yeQ796NE ImlTUtcsWbFeUkZSIycNCjjBD1ZXKoBH1daozlYTbcTPheENP zwiQ7XOHebBQhU5LhEDWdKH6ewrneRFH8ECouDRBhNPD6KmVn SDQbs7Hqzag7TyOptv1oak75RFC8e7NhyWlpVVY3BJT2VrPaA m7nqSRoREJiSY6qUyPlgDLlBDYode91eAxwFPemMTR2WKEvlu Hrl9Lbi0gtDbCoyvPnB4hmG6HkHKYhRXHrNBDkQfKhynNzz7I sg6FxuTJlmCs7g4nkRTTyGSSvjHrkn9xjTQV5NWNkbKXuH1hd bL0pGKFcMO8bzntth1puDMflXIcgOFNnrDX6ijT1RTKwvNBpX 5JhpG4jXLLjTAmbXHGiegj5QzCvGs5bwIKbnHquPUupKqicGW dlXHBnbmNvbnRccGduZGVjXHBsYWluXHBsYWluXGYwXGZzMjR mlOhiwEQkEvGmQdTfeAmdtQwoSAqlUhNsMAUeXTieF6zrHpGh JpJxMjr0MCLaqCCtCWXtRud3BJFlyDGxLLSFiRdtwG2jHBZcl FnyqY4wxCP5GBSbcoCiqEJKnD1eUJJDhF2xXrH8GFDiFgv7MD O8CxNcaNCcnD4= [facility] [id number] 14:17:17Surgical Pathology Report Case: [id number] Authorizing Provider: Vinnie Oglesby, Collected: 02/02/2022 01:28 PM Ordering Location: [facility] Endoscopy Received: 03/06/2022 11:30 AM Services Pathologist: Ladarius Ureña MD Specimen: Polyp, Gastric, via EMR THIS REPORT WAS FINALIZED DURINGDOWNTIME PROCEDURES. THERE MAY BE SOME VARIATIONS IN REPORT FORMATTING WITH SOME MANUAL CORRECTIONS. MICROSCOPIC EXAMINATIONS HAVE BEEN PERFORMED. THE CAP NUMBER FOR THIS LABORATORY IS [id number]. THE SCANNED ATTACHMENT TO THIS CASE NUMBER SERVES THE FINAL REPORT. Signing Pathologist Direct Phone Line: [phone] signed by Ladarius Ureña MD on 04/07/2022 at 2:17 PMPOC-Glucose [id number] 14:00:02 Test Item Value Reference Range Interpretation Comments POC-Glucose Meter (test 100 mg/dL 70-110 : TE STED AT [facility] code = 1538) [address] [place] [address], [facility] 30: Readers' Advisory Service Librarian/Techni wendy ID = [id number] for Josh, Shemek e Lab Interpretation (test Normal code = 02342-3) [facility] [id number] 14:00:02 Test Item Value Reference Range Interpretation Comments POC-Glucose Meter (test 100 mg/dL 70-110 : TE STED AT [facility] code = 1538) [address] [place] [address], 770 30: Readers' Advisory Service Librarian/Techni wendy ID = [id number] for Josh, Shemek e Lab Interpretation (test Normal code = 57004-5) [facility] [id number] 14:00:02 Test Item Value Reference Range Interpretation Comments POC-Glucose Meter (test 100 mg/dL 70-110 : TE STED AT [facility] code = 1538) [address] [place] [address], 770 30: Readers' Advisory Service Librarian/Techni wendy ID = [id number] for Josh, Shemek e Lab Interpretation (test Normal code = 96694-2) [facility] [id number] 14:00:02 Test Item Value Reference Range Interpretation Comments POC-Glucose Meter (test 100 mg/dL 70-110 : TE STED AT [facility] code = 1538) [address] [place] [address], [facility] 30: Readers' Advisory Service Librarian/Techni wendy ID = [id number] for Josh, Shemek e Lab Interpretation (test Normal code = 93022-1) [facility] [id number] 14:00:02 Test Item Value Reference Range Interpretation Comments POC-Glucose Meter (test 100 mg/dL 70-110 : TE STED AT [facility] code = 1538) [address] [place] [address], [facility] 30: Readers' Advisory Service Librarian/Techni wendy ID = [id number] for Josh, Shemek e Lab Interpretation (test Normal code = 27778-8) [facility] [id number] 14:00:02 Test Item Value Reference Range Interpretation Comments POC-Glucose Meter (test 100 mg/dL 70-110 : TE STED AT [facility] code = 1538) [address] [place] [address], [facility] 30: Readers' Advisory Service Librarian/Techni wendy ID = [id number] for Josh, Shemek e Lab Interpretation (test Normal code = 77434-8) [facility] [id number] 14:00:02 Test Item Value Reference Range Interpretation Comments POC-GLUCOSE METER 100 mg/dL 70-110 : TESTED A T [facility] 6720 (BEAKER) (test code = [facility], 1538) [address]: Readers' Advisory Service Librarian/Techni wendy ID = [id number] for Denisha Smith POCT-GLUCOSE [id number] 12:19:11 Test Item Value Reference Range Interpretation Comments POC-GLUCOSE METER 120 mg/dL 70-110 H : TESTED A T [facility] 6720 (BEAKER) (test code = [facility], 1538) [address]43: Readers' Advisory Service Librarian/Techni wendy ID = [id number] for JOSE LUIS Cortez HEMOGLOBIN [id number] 09:28:00 Test Item Value Reference Range Interpretation Comments HEMOGLOBIN A1C (BEAKER) (test code = 8.1 % 4.3-6.1 H 368) POCT-GLUCOSE [id number] 07:44:00 Test Item Value Reference Range Interpretation Comments POC-GLUCOSE METER 130 mg/dL 70-110 H : TESTED A T [facility] 6720 (BEAKER) (test code = TERRI Hirsch [place], 1538) [address]: Readers' Advisory Service Librarian/Techni wendy ID = [id number] for KRISSY FINNEGAN COMPREHENSIVE METABOLIC [id number] 06:55:00 Test Item Value Reference Range Interpretation [...] S NOT APPLICABLE FOR DIALYSIS PATIEN TS. Readers' Advisory Service Librarian ID - PIAYA LCBC W/PLT COUNT & AUTO [id number] 05:55:00 Test Item Value Reference Range Interpretation [...] PERCENT (BEAKER) (test code = 2801) POCT-GLUCOSE [id number] 21:17:00 Test Item Value Reference Range Interpretation Comments POC-GLUCOSE METER 255 mg/dL 70-110 H : TESTED A T [facility] 6720 (BEAKER) (test code = TER[facility], 1538) 970[address]: Readers' Advisory Service Librarian/Techni wendy ID = [id number] for ABHILASH MARTI [id number] 11:22:39INTRA OP IMAGINGReason for exam:->abnormal imaging Fluoroscopic unit utilized for a procedure performed in the OR. No interpretation was requested. Refer to the operative report for findings. Refer to PACS for patient radiation dose information.POCT-GLUCOSE [id number] 07:45:00 Test Item Value Reference Range Interpretation Comments POC-GLUCOSE METER 155 mg/dL 70-110 H : TESTED A T [facility] 6720 (BEMARBELLA) (test code = TERRI [place], 1538) 0[address]56: Readers' Advisory Service Librarian/Techni wendy ID = [id number] for ED KATIE WOODWARD TISSUE [id number] 09:36:00Surgical Pathology Report Case: [id number] Authorizing Provider: Vinnie Oglesby Collected: 08/26/2019 12:43 PM MD Beatrice Ordering Location: [facility] Endoscopy Received: 08/26/2019 01:56 PM Servic Pathologist: Isac Cummins MD Specimen: Biopsy, Gastric, gastric polyp A. STOMACH, POLYP, BIOPSY: - ANTRAL MUCOSA WITH POLYPOID FOVEOLAR HYPERPLASIA - NEGATIVE FOR HELICOBACTER PYLORI ORGANISMS BY WARTHIN STARRY STAIN - NEGATIVE FOR INTESTINAL METAPLASIA, DYSPLASIA, MALIGNANCY Signing Pathologist Direct Phone Line: [phone] signed by Isac Cummins MD on 08/27/2019 at 9:36 [id number]: upper endoscopy, biopsyPre and postop diagnosis: acute [...] are evaluated Immunohistochemistrytechnical testing was performed at [facility], Pathology Laboratory where it was developed and [...] to perform high complexity clinical laboratory testing.POCT-GLUCOSE [id number] 13:26:00 Test Item Value Reference Range Interpretation Comments POC-GLUCOSE METER 122 mg/dL 70-110 H : TESTED A T [facility] 6720 (USEREADY) (test code = [employer] [facility], 1538) 33287: Readers' Advisory Service Librarian/Techni wendy ID = [id number] for Ilda Bailey POCT-GLUCOSE [id number] 11:40:00 Test Item Value Reference Range Interpretation Comments POC-GLUCOSE METER 137 mg/dL 70-110 H : TESTED A T [facility] 6720 (USEREADY) (test code = [employer] [facility], 1538) 73339: Readers' Advisory Service Librarian/Techni wendy ID = [id number] for KATIE CANTU COLON SEGMENT RESEC.NOT [id number] 19:21:00 RUN DATE: 11/14/18 [facility] PAGE 1 RUN TIME: 810 Specimen Inquiry RUN USER: INTERFACE --------- ---PATIENT: DAISY CARRION LOC: [facility] U #: [id number] AGE/SX: 58/F ROOM: [facility] RE11/11/18REG DR: Betito Collazo MD : 56 BED: A DIS: 11/13/18 STATUS: DIS Sharla TLOC: SPEC #: [id number] RECD: 11/11/18 STATUS: BRITTNY RE #: [id number] CRISTINO: 11/11/18- SUBM DR: Betito Collazo MD ENTERED: 11/11/18 SP TYPE: COLONR NIDIA DR: ORDERED: LEVEL V SURGICA CODES: [id number] - COLON, NOS PROCEDURES: LEVEL V SURGICA (Incomplete) TISSUES: COLON, NOS - RECTOSIGMOID DIVERTICULITIS CLINICAL HISTORY 58 year old, diverticulitis (wpd) FINAL DIAGNOSIS Designated "rectosigmoid diverticulitis", segmental resection: - diverticular disease with peridiverticular fibrosis - intestinal rings - unremarkable CPT code(s): 38415 pkg/wpd 11/13/18 GROSS DESCRIPTION ANATOMIC SOURCE OF [...] The two smaller portions of intestinal mucosa measure1.6 and 5.0 cm and contains unremarkable mucosa and surrounding tissue. Bag Machine Set Up Operator sections are submitted in A2. The [...] Specimen Inquiry RUN USER: INTERFACE SPEC #: [id number] PATIENT: DAISY CARRION #[id number] (Continued)------ ------ GROSS DESCRIPTION (Continued) 1.0 cm and containing green-brown fecal material. No discrete perforation or discoloration in those areas are noted. Bag Machine Set Up Operator sections of the intestine with the diverticula are submitted in A3 - A8. Examination of attached adipose tissue reveals no discrete lymph nodes. Bag Machine Set Up Operator sections are submitted in A9 - A16. hz/wpd 11/11/18 @ 4524 MICROSCOPIC DESCRIPTION The specimenconsists of a segment of rectosigmoid colon containing numerous diverticula which extend through themuscularis into the rectosigmoid adipose tissue. Foci of fibrosis are present adjacent to the diverticula. No granulomas, dysplasia or neoplasia are identified. The intestinal rings are unremarkable. pkg/wpd 11/13/18 Signed Deena Storm 11/13/181920 END OF REPORT [id number] 07:10:00 Test Item Value Reference Range Interpretation Comments GLUBED (test code = GLUBED) 180 mg/dL 65-110 H COMPREHENSIVE METABOLIC [id number] 05:48:00 Test Item Value Reference Range Interpretation [...] 106 units/L 46-116 N code = ALKP) [id number] 05:48:00 Test Item Value Reference Range Interpretation Comments MAGNESIUM (test code = MAG) 1.8 mg/dL 1.8-2.4 N CBC W/AUTO [id number] 04:49:00 Test Item Value Reference Range Interpretation [...] REQUIRED (test NORMAL NORMAL code = PLTMR) [id number] 21:57:00 Test Item Value Reference Range Interpretation Comments GLUBED (test code = GLUBED) 278 mg/dL 65-110 H [id number] 17:26:00 Test Item Value Reference Range Interpretation Comments GLUBED (test code = 292 mg/dL 65-110 H Hypoglyc emic Protoco GLUBED) [id number] 12:11:00 Test Item Value Reference Range Interpretation Comments GLUBED (test code = GLUBED) 131 mg/dL 65-110 H [id number] 07:23:00 Test Item Value Reference Range Interpretation Comments GLUBED (test code = GLUBED) 110 mg/dL 65-110 N CHEMISTRY 7 [id number] 05:23:00 Test Item Value Reference Range Interpretation [...] code = CA) 7.8 mg/dL 8.4-10.2 L [id number] 05:23:00 Test Item Value Reference Range Interpretation Comments MAGNESIUM (test code = MAG) 1.8 mg/dL 1.8-2.4 N CBC W/AUTO [id number] 05:19:00 Test Item Value Reference Range Interpretation [...] REQUIRED (test NORMAL NORMAL code = PLTMR) [id number] 22:07:00 Test Item Value Reference Range Interpretation Comments GLUBED (test code = GLUBED) 171 mg/dL 65-110 H [id number] 17:41:00 Test Item Value Reference Range Interpretation Comments GLUBED (test code = GLUBED) 157 mg/dL 65-110 H [id number] 13:26:00 Test Item Value Reference Range Interpretation Comments GLUBED (test code = GLUBED) 154 mg/dL 65-110 H [id number] 06:54:00 Test Item Value Reference Range Interpretation Comments GLUBED (test code = GLUBED) 143 mg/dL 65-110 H CHEMISTRY 7 [id number] 13:07:00 Test Item Value Reference Range Interpretation [...] = CA) 8.5 mg/dL 8.4-10.2 N HGB [id number] 12:51:00 Test Item Value Reference Range Interpretation Comments HEMOGLOBIN (test code = HGB) 13.6 g/dL 10.7-13.9 N HEMATOCRIT (test code = HCT) 40.3 % 32.1-42.1 N
[2022-04-12 11:30] LABS: Urine Blood Negative (Negative); Urine Glucose 3+ (Negative); Urine Protein Negative (Negative); Urine pH 6.5 (5.0-7.0)
[2022-04-12 11:44] LABS: Urine Bacteria <20 /HPF (<20); Urine Mucus Slight /HPF (None Seen); Urine RBC <5 /HPF (None Seen); Urine WBC Clump Rare /HPF (None Seen)
[2022-04-12 11:53] LABS: Absolute Lymphocytes (CBC) 1.7 K/uL (0.7-4.9); Hematocrit 41.3 % (36.0-45.0); Lymphocytes % 20.7 % (15.3-44.8); MCV 86.9 fL (80-100); MPV 7.9 fL (7.6-11.3); RBC Red Blood Cell Count 4.76 M/uL (3.86-4.86)
[2022-04-12 11:57] LABS: Protime INR 1.02
--- NOTE | 2022-04-12 12:08 | RAD REPORT ---
EXAM DESCRIPTION: RAD - Chest Single View - 04/12/2022 11:42 am CLINICAL HISTORY: DYSPNEA COMPARISON: Portable 12/31/2020 TECHNIQUE: AP portable chest image was obtained 04/12/2022 11:42 am . FINDINGS: No focal mass or consolidation. Interstitial pattern matches comparison. Heart and vascula ture are normal. No measurable pleural effusion and no pneumothorax. No acute bony abnormality seen. No acute aortic findings suspected. IMPRESSION: No acute cardiopulmonary process. No significant change from comparison study.
[2022-04-12 12:13] LABS: Albumin 3.5 g/dL (3.4-5.0); Bilirubin Direct 0.2 mg/dL (0-0.2); Bilirubin Total 0.5 mg/dL (0.2-1.0); Magnesium 2.1 mg/dL (1.6-2.4); Potassium 3.8 mmol/L (3.5-5.1); Protein, Total 8.1 g/dL (6.4-8.2); Troponin High Sensitivity 5.4 pg/mL (<58.9)
[2022-04-12] MEDS ORDERED: NA CHLORIDE 0.9% 1,000 ML ONE (12:16)
[2022-04-12 12:27] LABS: SARS-COV-2 RT PCR NEGATIVE (NEGATIVE)
--- NOTE | 2022-04-12 12:55 | RAD REPORT ---
EXAM DESCRIPTION: CT - Chest For Pe Angio - 04/12/2022 12:37 pm CLINICAL HISTORY: Shortness of breath COMPARISON: 2019 TECHNIQUE: Dynamically enhanced axial 3 mm thick images of the chest were obtained during administra tion of <100> mL Isovue 370 IV contrast. Coronal and oblique reconstruction images were generated and reviewed. Exam utilizes a protocol for optimal evaluation of pulmonary arterial tree. Maximum intensity projections 3D imaging was utilized All CT scans are performed using dose optimization technique as appropriate and may include automated exposure control or mA/KV adjustment according to patient size. FINDINGS: A pulmonary embolus is not seen. A thoracic aortic aneurysm is not noted. A pleural effusion is not seen. A pericardial effusion is not seen. A lung consolidation is not present. IMPRESSION: Negative for a pulmonary embolism.
--- NOTE | 2022-04-12 13:27 | EDPHYS ---
Physician Documentation [facility] Name: Robyn Carrion Age: 61 yrs Sex: Female : 1960 Arrival Date: 04/12/2022 Time: 10:51 Bed 20 Private MD: Tamar Lazo ED Physician Tian Stuart HPI: 04/12 11:07 This 61 yrs old Female presents to ER via Ambulatory with complaints of jmm Shortness Of Breath. 11:07 The patient has shortness of breath at rest. Onset: The symptoms/episode began/occurred jmm gradually, 1 day(s) ago. Duration: The symptoms are continuous. The patient's shortness of breath is aggravated by nothing, is alleviated by nothing. Associated signs and symptoms: Pertinent negatives: fever. The patient has not experienced similar symptoms in the past. Historical: - Allergies: 10:57 Codeine; aa5 10:57 HYDROCODONE; aa5 - PMHx: 10:57 fernando esophageal disease; cricopharyngeal spasm; Hernia; High Cholesterol; aa5 Hypertensive disorder; IDDM; Pancreatitis; vericose vein; - PSHx: 10:57 bladder prolapse SX; Cholecystectomy; colon removal; ercp; hernia repair; hysterectomy; aa5 polyp removed; - Immunization history:: Adult Immunizations unknown. - Social history:: Smoking status: Patient denies any tobacco usage or history of. ROS: 11:07 Constitutional: Negative for fever, chills, and weight loss, Cardiovascular: Negative jmm for chest pain, palpitations, and edema. 11:07 Respiratory: Positive for shortness of breath. 11:07 All other systems are negative. Exam: 11:07 Constitutional: This is a well developed, well nourished patient who is awake, alert, jmm and in no acute distress. Head/Face: atraumatic. Eyes: EOMI, no conjunctival erythema appreciated ENT: Moist Mucus Membranes Neck: Trachea midline, Supple Chest/axilla: Normal chest wall appearance and motion. Cardiovascular: Regular rate and rhythm. No edema appreciated Respiratory: Normal respirations, no respiratory distress appreciated Abdomen/GI: Non distended Back: Normal ROM Skin: General appearance color normal MS/ Extremity: Moves all extremities, no obvious deformities appreciated, no edema noted to the lower extremities Neuro: Awake and alert Psych: Behavior is normal, Mood is normal, Patient is cooperative and pleasant Vital Signs: 10:58 BP 172 / 76; Pulse 77; Resp 18 S; Temp 97.5(TE); Pulse Ox 100% on R/A; Weight 69.85 kg aa5 (R); Height 5 ft. 2 in. (157.48 cm) (R); 11:30 BP 154 / 82; Pulse 69; Resp 16; Pulse Ox 98% ; bp 12:23 BP 135 / 75; Pulse 72; Resp 16; Pulse Ox 99% ; bp 13:45 BP 159 / 80; Pulse 58; Resp 16; Pulse Ox 100% ; bp 10:58 Body Mass Index 28.17 (69.85 kg, 157.48 cm) aa5 MDM: 11:07 Patient medically screened. lisa 11:16 Patient medically screened. lisa 13:25 Data reviewed: vital signs, nurses notes. Counseling: I had a detailed discussion with sb the patient and/or guardian regarding: the historical points, exam findings, and any diagnostic results supporting the discharge/admit diagnosis, lab results, radiology results, the need for outpatient follow up, to return to the emergency department if symptoms worsen or persist or if there are any questions or concerns that arise at home. 04/12 11:09 Order name: Basic Metabolic Panel; Complete Time: 12:23 [facility] 04/12 11:09 Order name: CBC with Diff; Complete Time: 12:10 [facility] 04/12 11:09 Order name: LFT's; Complete Time: 12:23 04/12 11:09 Order name: Magnesium; Complete Time: 12:23 [facility] 04/12 11:09 Order name: NT PRO-BNP; Complete Time: 12:23 [facility] 04/12 11:09 Order name: PT-INR; Complete Time: 12:10 [facility] 04/12 11:09 Order name: Troponin HS; Complete Time: 12:23 [facility] 04/12 11:09 Order name: XRAY Chest (1 view); Complete Time: 12:10 [facility] 04/12 11:09 Order name: Lactate w/ 2H reflex if indic.; Complete Time: 12:23 04/12 11:09 Order name: Blood Culture Adult (2) 04/12 11:09 Order name: Urine Microscopic Only; Complete Time: 12:10 [facility] 04/12 11:09 Order name: COVID-19/FLU A+B; Complete Time: 12:28 [facility] 04/12 11:30 Order name: Urine Dipstick-Ancillary; Complete Time: 12:10 [facility] 04/12 12:24 Order name: CT Chest For PE Angio; Complete Time: 13:00 [facility] 04/12 11:09 Order name: EKG; Complete Time: 11:10 [facility] 04/12 11:09 Order name: Cardiac monitoring; Complete Time: 11:41 [facility] 04/12 11:09 Order name: EKG - Nurse/Tech; Complete Time: 11:41 [facility] 04/12 11:09 Order name: IV Saline Lock; Complete Time: 11:49 [facility] 04/12 11:09 Order name: Labs collected and sent; Complete Time: 11:49 [facility] 04/12 11:09 Order name: O2 Per Protocol; Complete Time: 11:41 [facility] 04/12 11:09 Order name: O2 Sat Monitoring; Complete Time: 11:41 [facility] 04/12 12:24 Order name: Misc. Order: run ns bolus please; Complete Time: 12:25 [facility] Administered Medications: 11:45 Drug: NS 0.9% 1000 ml Route: IV; Rate: 125 ml/hr; Site: left antecubital; bp 13:35 Drug: GI Cocktail without - (Maalox Suspension 30 ml, Lidocaine Liquid 2 % 15 bp ml) Route: PO; 13:35 Follow up: Response: No adverse reaction bp Disposition Summary: 04/12/22 13:27 Discharge Ordered Location: Home jm Condition: Stable jm Diagnosis - Dyspnea jm Followup: [facility] - With: Private Physician - When: 2 - 3 days - Reason: Recheck today's complaints, Continuance of care, Re-evaluation by your physician Discharge Instructions: - Discharge Summary Sheet jm - Shortness of Breath, Adult jm Forms: - Medication Reconciliation Form [facility] - Thank You Letter jmm - Antibiotic Education jmm - Prescription Opioid Use [facility] Signatures: Dispatcher [employer] Tian Bonilla MD MD cha Mickail, Joel, PA PA jmm Calderon, Audri, RN RN aa5 Neto Siegel RN RN bp
--- NOTE | 2022-04-12 13:27 | ER ---
Nurse's Notes [facility] Name: Robyn Carrion Age: 61 yrs Sex: Female : 1960 Arrival Date: 04/12/2022 Time: 10:51 Bed 20 Private MD: Tamar aLzo Diagnosis: Dyspnea Presentation: 04/12 10:58 Chief complaint: Patient states: SOB x 2 days ago and neuropathy pain to left foot. aa5 Coronavirus screen: shortness of breath. Ebola Screen: Patient denies travel to an Ebola-affected area in the 21 days before illness onset. Initial Sepsis Screen: Does the patient meet any 2 criteria? No. Patient's initial sepsis screen is negative. Does the patient have a suspected source of infection? No. Patient's initial sepsis screen is negative. Risk Assessment: Do you want to hurt yourself or someone else? Patient reports no desire to harm self or others. Onset of symptoms was April 2022. 10:58 Method Of Arrival: Ambulatory aa5 10:58 Acuity: DARA 3 aa5 Triage Assessment: 11:00 General: Appears distressed, Behavior is cooperative, appropriate for age, anxious. bp Pain: Denies pain. EENT: No deficits noted. Neuro: No deficits noted. Cardiovascular: No deficits noted. Respiratory: Reports shortness of breath Airway is patent Respiratory effort is even, unlabored, Breath sounds are clear bilaterally. Onset: The symptoms/episode began/occurred today, the patient reports symptoms have resolved. GI: No signs and/or symptoms were reported involving the gastrointestinal system. : No signs and/or symptoms were reported regarding the genitourinary system. Derm: No deficits noted. Musculoskeletal: No deficits noted. Historical: - Allergies: 10:57 Codeine; aa5 10:57 HYDROCODONE; aa5 - PMHx: 10:57 fernando esophageal disease; cricopharyngeal spasm; Hernia; High Cholesterol; aa5 Hypertensive disorder; IDDM; Pancreatitis; vericose vein; - PSHx: 10:57 bladder prolapse SX; Cholecystectomy; colon removal; ercp; hernia repair; hysterectomy; aa5 polyp removed; - Immunization history:: Adult Immunizations unknown. - Social history:: Smoking status: Patient denies any tobacco usage or history of. Screenin:07 [facility] ED Fall Risk Assessment (Adult) History of falling in the last 3 months, bp including since admission No falls in past 3 months (0 pts). Abuse screen: Denies threats or abuse. Denies injuries from another. Nutritional screening: No deficits noted. Tuberculosis screening: No symptoms or risk factors identified. Assessment: 11:30 General: SEE TRIAGE NOTE. bp 12:23 Reassessment: No changes from previously documented assessment. Patient and/or family bp updated on plan of care and expected duration. Pain level reassessed. 13:45 Reassessment: PT DC HOME AMBULATORY. Cardiovascular: Rhythm is sinus rhythm. bp Vital Signs: 10:58 BP 172 / 76; Pulse 77; Resp 18 S; Temp 97.5(TE); Pulse Ox 100% on R/A; Weight 69.85 kg aa5 (R); Height 5 ft. 2 in. (157.48 cm) (R); 11:30 BP 154 / 82; Pulse 69; Resp 16; Pulse Ox 98% ; bp 12:23 BP 135 / 75; Pulse 72; Resp 16; Pulse Ox 99% ; bp 13:45 BP 159 / 80; Pulse 58; Resp 16; Pulse Ox 100% ; bp 10:58 Body Mass Index 28.17 (69.85 kg, 157.48 cm) aa5 ED Course: 10:51 Patient arrived in ED. mr 10:51 Tamar Lazo is Private Physician. mr 10:57 Arm band placed on. aa5 10:59 Triage completed. aa5 11:07 Fredy Bueno PA is PHCP. jm 11:07 Tian Stuart MD is Attending Physician. jmm 11:12 Neto Siegel, HAIDER is Primary Nurse. bp 11:43 XRAY Chest (1 view) In Process Unspecified. EDMS 11:45 Initial lab(s) drawn, by pr, sent to lab. First set of blood cultures drawn. bc6 11:49 Blood Culture Adult (2) Sent. bc6 11:49 Lactate w/ 2H reflex if indic. Sent. bc6 11:49 Basic Metabolic Panel Sent. bc6 11:49 CBC with Diff Sent. bc6 11:49 LFT's Sent. bc6 11:49 Magnesium Sent. bc6 11:49 NT PRO-BNP Sent. bc6 11:49 PT-INR Sent. bc6 11:49 Troponin HS Sent. bc6 11:49 Inserted saline lock: 20 gauge in left antecubital area, using aseptic technique. bc6 12:07 Patient has correct armband on for positive identification. Bed in low position. Call bp light in reach. Side rails up X2. Adult w/ patient. 12:39 CT Chest For PE Angio In Process Unspecified. EDMS 13:45 No provider procedures requiring assistance completed. IV discontinued, intact, bp bleeding controlled, No redness/swelling at site. Pressure dressing applied. Administered Medications: 11:45 Drug: NS 0.9% 1000 ml Route: IV; Rate: 125 ml/hr; Site: left antecubital; bp 13:35 Drug: GI Cocktail without - (Maalox Suspension 30 ml, Lidocaine Liquid 2 % 15 bp ml) Route: PO; 13:35 Follow up: Response: No adverse reaction bp Medication: 13:45 VIS not applicable for this client. bp Outcome: 13:27 Discharge ordered by . josselyn 13:45 Discharged to home ambulatory. bp 13:45 Condition: stable 13:45 Discharge instructions given to patient, Instructed on discharge instructions, follow up and referral plans. Demonstrated understanding of instructions, follow-up care. 13:47 Patient left the ED. bp Signatures: Dispatcher [employer] EDMS Fredy Bueno PA PA jmm Rivera, Mary mr MerinoDagmar, RN RN aa5 Neto Siegel, RN RN bp Danielle Beck bc6
[2022-04-12] MEDS ORDERED: MAGNES/ALUMIN/SIMET 30ML UCUP ONE (13:34)
[2022-04-12] MEDS ORDERED: LIDOCAINE VISCOUS 2% SOLN 15 ML UDC ONE (13:34)
[2022-04-12 13:52] VITALS: TEMP 97.5
[2022-04-12 13:55] VITALS: BP 159/80; O2SAT 100
--- NOTE | 2022-04-13 15:24 | EKG ---
Test Date: 2022-04-12 Test Time: 11:26:37 Deputy Commissioner: BP MEASUREMENT RESULTS: Intervals: Rate: 72 DC: 158 QRSD: 76 QT: 398 QTc: 435 [place]: P: 17 DC: 158 QRS: -19 T: 13 INTERPRETIVE STATEMENTS: Normal sinus rhythm Possible Anterior infarct, age undetermined Abnormal ECG Compared to ECG 12/31/2020 13:40:02 Myocardial infarct finding now present ST (T wave) deviation no longer present Electronically Signed On 04-13-22 15:22:04 STRAPPER by Eyal Bautista
== END 2022-04-12 13:47 | disposition home or self-care (01) ==
LOC: ER 10:48
DX: R06.00 Dyspnea, unspecified (principal); Z20.822 Contact with and (suspected) exposure to COVID-19; Z88.5 Allergy status to narcotic agent; E11.9 Type 2 diabetes mellitus without complications; I10 Essential (primary) hypertension
CPT/HCPCS: 93005; 87040 ×2; 85025; 80048; 36415; 83735; 85610; 80076; 83605; 84484; 83880; 0240U; 71275; 71045; 99284; Q9967; J7030; 81003; 81015

== ENCOUNTER 2022-10-21 10:18 | Emergency (ER) | payer OTHER ==
--- OUTSIDE RECORDS SUMMARY | 2022-10-21 10:25 | XMS REPORT | Continuity of Care Document ---
:1960 Author Organization [facility] t Address [address] [place] [address] Care Team Providers Name Role Phone CARLOS BALDERRAMA Primary Care Physician Unavailable VINNIE OGLESBY Attending Clinician Unavailable [email or web address] Attending Clinician Unavailable Shabbir EPPS, Vinnie Barron Attending Clinician [phone] Jocelin Kimble MD Attending Clinician WILL ANTONIO D.O. Attending Clinician Unavailable CYRIL MACK M.D. Attending Clinician Unavailable VINNIE OGLESBY Admitting Clinician Unavailable [email or web address] Admitting Clinician Unavailable Payers Payer Name Policy Type Policy Number Effective Date Expiration Date S mickey MEDICARE A B [id number] 2001 00:00:00 [place] [id number] 2017 00:00:00 [facility] MEDICARE [id number] COMPLETE (MEDICARE REPLACEMENT HMO) [id number] Problems Condition Condition Condition Status Onset Resolution Last Treating Co mments Source Name Details Category Date Date Treatment Clinician Date Biliary Biliary Disease [facility] No known No known Disease Metho [...] one-Acet Allergy Vomiting, 08 patient, Romina kes aminophe Other (See 00:00: " it Medi sarah n Comments) 00 wears on Cente r my stomach" hydrocod DA Active [facility] [place] Hydrocod Propensi Active Method i one ty to 11-01 st adverse 00:00: Hospita reaction 00 l s to drug Family History Family Member Diagnosis Comments Start Date Stop Date Source Unknown Family Family history of Other [facility] Physicians Member diabetes mellitus Unknown Family Family history of Other [facility] Member hypertension Unknown Family Family history of Other [facility] Member Heart problem Natural father Diabetes [facility] Natural [facility] Hy[facility] Natural mother Diabetes [facility] Natural mother Heart disease [facility] Natural mother Hypertension [facility] Social History Social Habit Start Date Stop Date Quantity Comments Source Gender identity [facility] History of tobacco Current smoker [facility] use [facility] History SDOH [facility] Alcohol Std Drinks Medica l Center History SDOH [facility] Alcohol Binge Medical [place] [facility] Exposure to 2022-01-23 2022-02-[address] [facility] SARS-CoV-2 (event) 00:00:00 11:41:00 Medica l Center Alcohol intake 2022-02-02 2022-02-02 [facility]00 [facility] alcohol [facility] (finding) Cigarettes smoked 2022-02-01 2022-02-[address] [facility] current (pack per 00:00:00 00:00:00 Medical Center day) - Reported Cigarette 2022-02-01 2022-02-[address] [facility] pack-years 00:00:00 00:00:00 Medical Center Tobacco use and 2022-02-01 2022-02-[address] Rom[facility] k[facility] exposure 00:00:00 00:00:00 tobacco non-user Medical Center Alcohol Comment 2019-11-17 2019-11-[address] [facility] kes 00:00:00 00:00:00 [facility] Tobacco Comment 2019-08-15 2019-08-15 quit [address] [facility] 00:00:00 00:[facility]:00 Medical Center History SDOH 2019-08-15 2019-08-[address] [facility] Alcohol Frequency 00:00:00 00:00:00 Medical Center History of Social 2018-11-24 2018-11-[address] function 00:00:00 00:00:00 Hospital Sex Assigned At [address] Romina kes 00:00:00 00:00:00 [facility] Smoking Status Start Date Stop Date Source Former smoker 2019-08-15 00:00:00 2019-08-15 00:00:[address] [facility] Never smoked tobacco [facility] Medications Ordered Filled Start Stop Current Ordering Indication Dosage Frequency Signature Comments Components Source Medication Medication Date Date Medication? Clinician (SIG) Name Name atorvastati 2021-04 Yes 40mg QD Take [address] [facility] (LIPITOR) 0-27 by mouth Luke s 40 MG 14:58: daily. Medical tablet 49 [place] insulin 2021-04 Yes QD Inject [facility] glargine 0-27 [facility] (LANTUS) 14:58: usly Medical 100 unit/mL 49 nightly Cente r injection Use as directed . lisinopriL 2021-04 Yes 10mg QD Take [address] (PRINIVIL,Z 0-27 by mouth Luke s ESTRIL) 10 14:58: daily Medica l MG tablet 49 Night. [place] lubiproston 2021-04 Yes 8ug Take [address] [facility] (AMITIZA) 0-27 by mouth 2 Romina kes 8 MCG 14:58: (two) Medical capsule 49 times Center daily as needed . lipase/prot 2021-04 Yes [id number] Q.[id number] Take [facility]/amylas 0-27 [id number] 36,000 [facility] e (CREON 14:58: 3D Units [...] daily as needed . lipase/prot 2021-04 Yes [id number] Q.[id number] Take [facility]/amylas 0-27 [id number] 36,000 [facility] e (CREON 14:58: 3D Units [...] daily as needed . lipase/prot 2021-04 Yes [id number] Q.[id number] Take [facility]/amylas 0-27 [id number] 36,000 [facility] e (CREON 14:58: 3D Units [...] daily as needed . lipase/prot 2021-04 Yes [id number] Q.[id number] Take [facility]/amylas 0-27 [id number] 36,000 [facility] e (CREON 14:58: 3D Units [...] 40 MG 14:58: daily. Medical tablet 49 [place] insulin 2021-04 Yes QD Inject [facility] [...] St e (AMITIZA) 0-27 by mouth 2 Rmoina kes 8 MCG 14:58: (two) Medical capsule 49 times Center daily as needed . lipase/prot 2021-04 Yes [id number] Q.[id number] Take [facility]amylas 0-27 [id number] 36,000 [facility] e (CREON 14:58: 3D Units [...] daily as needed . lipase/prot 2021-04 Yes [id number] Q.[id number] Take [facility]amylas 0-27 [id number] 36,000 [facility] e (CREON 14:58: 3D Units [...] daily as needed . lipase/prot 2021-04 Yes [id number] Q.[id number] Take [facility]amylas 0-27 [id number] 36,000 [facility] e (CREON 14:58: 3D Units [...] :00 (six) Center hours. lipase/prot 2021-04 Yes [id number] Q.[id number] Take [facility]as 0-26 [id number] 36,000 [facility] (CREON 09:59: 3D Units [...] 15 times Center daily as needed . atorvastati 2020-0 Yes 40mg QD Take 40 [...] daily as needed . lipase/prot 2020-0 Yes [id number] Q.[id number] Take [facility] 8-12 [id number] 36,000 [facility] (CREON 13:03: 3D Units [...] daily as needed . lipase/prot 2020-0 Yes [id number] Q.[id number] Take [facility] 8-12 [id number] 36,000 [facility] (CREON 13:03: 3D Units [...] tablet 21 times Center daily. No known 2019- No No known Metho di medications 2-[address] 13:23: s Hospita 40 l No known 2019- No No known Metho di medications 2-[address] 13:23: s Hospita 40 l No known 2019-1 No No known Metho di medications 2-31 [...] cm WEIGHT 2022-02-01 10:01:00 69.4 kg HEIGHT 2019-10-20 00:00:00 157.5 cm WEIGHT 2019-10-20 00:00:00 69.355 kg HEIGHT 2019-08-13 00:00:00 157.5 cm WEIGHT 2019-08-13 00:00:00 70.716 kg Systolic blood 2022-02-02 14:30:00 158 mm[Hg] [facility] Diastolic blood 2022-02-02 14:30:00 66 mm[Hg] [facility] Heart rate 2022-02-02 14:30:00 60 /min [facility] Body temperature 2022-02-02 14:30:00 36.44 Alysia [facility] Respiratory rate 2022-02-02 14:30:00 18 /min [facility] Oxygen saturation in 2022-02-02 14:30:00 100 /min [facility] Arterial blood by Medical Ce nter Pulse oximetry Body height 2022-02-02 11:25:00 157.5 cm [facility] Body weight 2022-02-02 11:25:00 68.448 kg [facility] BMI 2022-02-02 11:25:00 27.60 kg/m2 [facility] Body height 2022-02-01 10:01:00 157.5 cm [facility] Body weight 2022-02-01 10:01:00 69.4 kg [facility] BMI 2022-02-01 10:01:00 27.98 kg/m2 [facility] Height 2018-05-24 10:25:00 62 [in_us] [...] Performed Clinician REPORT OF PROCEDURE - ENDOSCOPY URL 2022-02-02 German Oglesby [facility] 14:02:35 [facility] POCT-GLUCOSE METER 2022-02-[address] [facility] 13:48:00 [facility] TISSUE EXAM 2022-02-[address] [facility] [facility] 13:28:00 [facility] ESOPHAGOGASTRODUODENOSCOPY, WITH 2022-02-[address] [facility] ENDOSCOPIC US 13:00:00 [facility] ESOPHAGOGASTRODUODENOSCOPY 2022-02-02 [facility]innie [facility]ckeon [facility] 13:00:00 [facility] ULTRASOUND, UPPER GI TRACT[facility], WITH FINE NEEDLE 13:00:00 [facility] ASPIRATION ESOPHAGOGASTRODUODENOSCOPY, [facility] 2022-02-02 [facility] SU[facility]AL IN[facility]CTION 13:00:[address] [facility] EGD, WITH ENDOSCOPIC MUCOSAL 2022-02-[address] [facility] RESECTION 13:00:00 [facility] POCT-GLUCOSE METER 2022-02-02 [facility]innie [facility] 12:05:00 [facility] Plan of Care Planned Activity Planned Date [...] Cessation Counseling and Screening (12+)] Future Scheduled 2022-12-08 Influenza Vaccine (#1) [facility] 00:00:00 [code = Influenza Medical Ce nter Vaccine (#1)] Future Scheduled 2022-09-28 Screening for [facility] Test 10:21:04 malignant neoplasm of colon (procedure) [code = 277833357] Future Scheduled 2022-09-28 [facility] Test 10:21:04 malignant neoplasm of colon (procedure) [code = 828415040] Future Scheduled 2022-09-28 [facility] Test 10:21:04 malignant neoplasm of colon (procedure) [code = 028878527] Future Scheduled 2022-09-28 COVID-19 VACCINE (#1) [facility] Test 10:21:04 [code = COVID-19 VACCINE (#1)] Future Scheduled 2022-09-28 [facility] Test 10:21:04 malignant neoplasm of cervix (procedure) [code = 647087051] Future Scheduled 2022-09-28 BREAST CANCER [facility] Test 10:21:04 SCREENING [code = BREAST CANCER SCREENING] Future Scheduled 2022-09-28 [facility] Test 10:21:04 malignant neoplasm of colon (procedure) [code = 259439870] Future Scheduled 2022-09-28 [facility] Test 10:21:04 malignant neoplasm of colon (procedure) [code = 991323926] Future Scheduled 2022-09-28 [facility]INGLES [facility]INES ([facility] 10:21:04 of 2) [code = SHINGLES VACCINES (1 of 2)] Future Scheduled 2022-09-28 INFLUENZA VACCINE [facility] Test 10:21:04 [code = INFLUENZA VACCINE] Future Scheduled 2022-04-[address] [facility] Test 00:00:00 (12+) [code = Medical Center DEPRESSION SCREENING (12+)] Future Scheduled 2022-04-[address] [facility] Test 00:00:00 (12+) [code = Medical Center DEPRESSION SCREENING (12+)] Future Scheduled 2022-03-30 COVID-19 VACCINE (#1) [facility] Test 14:02:36 [code = COVID-19 VACCINE (#1)] Future Scheduled 2022-03-30 [facility] Test 14:02:36 malignant neoplasm of cervix (procedure) [code = 174725504] Future Scheduled 2022-03-30 BREAST CANCER [facility] Test 14:02:36 SCREENING [code = BREAST CANCER SCREENING] Future Scheduled 2022-03-30 COLONOSCOPY SCREENING [facility] Test 14:02:36 [code = COLONOSCOPY SCREENING] Future Scheduled 2022-03-30 SHINGLES VACCINES (1 [facility] Test 14:02:36 of 2) [code = SHINGLES VACCINES (1 of 2)] Future Scheduled 2022-03-30 INFLUENZA VACCINE [facility] Test 14:02:36 [code = INFLUENZA VACCINE] Future Scheduled 2022-02-09 HEPATITIS B VACCINES [facility] Test 15:54:46 (1 of 3 - 3-dose series) [code = HEPATITIS B VACCINES (1 of 3 - 3-dose series)] Future Scheduled 2022-02-09 COVID-19 VACCINE (#1) [facility] Test 15:54:46 [code = COVID-19 VACCINE (#1)] Future Scheduled 2022-02-09 Screening for [facility] Test 15:54:46 malignant neoplasm of cervix (procedure) [code = 384423672] Future Scheduled 2022-02-09 BREAST CANCER [facility] Test 15:54:46 SCREENING [code = BREAST CANCER SCREENING] Future Scheduled 2022-02-09 COLONOSCOPY SCREENING [facility] Test 15:54:46 [code = COLONOSCOPY SCREENING] Future Scheduled 2022-02-09 SHINGLES VACCINES (1 [facility] Test 15:54:46 of 2) [code = SHINGLES VACCINES (1 of 2)] Future Scheduled 2022-02-09 INFLUENZA VACCINE [facility] Test 15:54:46 [code = INFLUENZA VACCINE] Future Scheduled 2022-02-09 HEPATITIS B VACCINES [facility] Test 15:54:46 (1 of 3 - 3-dose series) [code = HEPATITIS B VACCINES (1 of 3 - 3-dose series)] Future Scheduled 2022-02-09 COVID-19 VACCINE (#1) [facility] Test 15:54:46 [code = COVID-19 VACCINE (#1)] Future Scheduled 2022-02-09 Screening for [facility] Test 15:54:46 malignant neoplasm of cervix (procedure) [code = 791854920] Future Scheduled 2022-02-09 BREAST CANCER [facility] Test 15:54:46 SCREENING [code = BREAST CANCER SCREENING] Future Scheduled 2022-02-09 COLONOSCOPY SCREENING [facility] Test 15:54:46 [code = COLONOSCOPY SCREENING] Future Scheduled 2022-02-09 SHINGLES VACCINES (1 [facility] 15:54:46 of 2) [code = SHINGLES VACCINES (1 of 2)] Future Scheduled 2022-02-09 INFLUENZA VACCINE [facility] Test 15:54:46 [code = INFLUENZA VACCINE] Future Scheduled 2022-02-09 HEPATITIS B VACCINES [facility] Test 15:54:46 (1 of 3 - 3-dose series) [code = HEPATITIS B VACCINES (1 of 3 - 3-dose series)] Future Scheduled 2022-02-09 COVID-19 VACCINE (#1) [facility] Test 15:54:46 [code = COVID-19 VACCINE (#1)] Future Scheduled 2022-02-09 Screening for [facility] Test 15:54:46 malignant neoplasm of cervix (procedure) [code = 052938423] Future Scheduled 2022-02-09 BREAST CANCER [facility] Test 15:54:46 SCREENING [code = BREAST CANCER SCREENING] Future Scheduled 2022-02-09 COLONOSCOPY SCREENING [facility] Test 15:54:46 [code = COLONOSCOPY SCREENING] Future Scheduled 2022-02-09 SHINGLES VACCINES (1 [facility] Test 15:54:46 of 2) [code = SHINGLES VACCINES (1 of 2)] Future Scheduled 2022-02-09 INFLUENZA VACCINE [facility] Test 15:54:46 [code = INFLUENZA VACCINE] Future Scheduled 2022-02-06 HEPATITIS B VACCINES [facility] Test 13:59:44 (1 of 3 - 3-dose series) [code = HEPATITIS B VACCINES (1 of 3 - 3-dose series)] Future Scheduled 2022-02-06 COVID-19 VACCINE (#1) [facility] Test 13:59:44 [code = COVID-19 VACCINE (#1)] Future Scheduled 2022-02-06 Screening for [facility] Test 13:59:44 malignant neoplasm of cervix (procedure) [code = 598783305] Future Scheduled 2022-02-06 BREAST CANCER [facility] Test 13:59:44 SCREENING [code = BREAST CANCER SCREENING] Future Scheduled 2022-02-06 COLONOSCOPY SCREENING [facility] Test 13:59:44 [code = COLONOSCOPY SCREENING] Future Scheduled 2022-02-06 SHINGLES VACCINES (1 [facility] Test 13:59:44 of 2) [code = SHINGLES VACCINES (1 of 2)] Future Scheduled 2022-02-06 INFLUENZA VACCINE Method [facility] Test 13:59:44 [code = INFLUENZA VACCINE] Future Scheduled 2022-02-06 HEPATITIS B VACCINES [facility] Test 13:59:44 (1 of 3 - 3-dose series) [code = HEPATITIS B VACCINES (1 of 3 - 3-dose series)] Future Scheduled 2022-02-06 COVID-19 VACCINE (#1) [facility] Test 13:59:44 [code = COVID-19 VACCINE (#1)] Future Scheduled 2022-02-06 Screening for [facility] Test 13:59:44 malignant neoplasm of cervix (procedure) [code = 179336922] Future Scheduled 2022-02-06 BREAST CANCER [facility] Test 13:59:44 SCREENING [code = BREAST CANCER SCREENING] Future Scheduled 2022-02-06 COLONOSCOPY SCREENING [facility] Test 13:59:44 [code = COLONOSCOPY SCREENING] Future Scheduled 2022-02-06 SHINGLES VACCINES (1 [facility] Test 13:59:44 of 2) [code = SHINGLES VACCINES (1 of 2)] Future Scheduled 2022-02-06 INFLUENZA VACCINE Method [facility] Test 13:59:44 [code = INFLUENZA VACCINE] Future Scheduled 2022-01-12 HEPATITIS B VACCINES [facility] Test 15:05:35 (1 of 3 - 3-dose series) [code = HEPATITIS B VACCINES (1 of 3 - 3-dose series)] Future Scheduled 2022-01-12 COVID-19 VACCINE (#1) [facility] Test 15:05:35 [code = COVID-19 VACCINE (#1)] Future Scheduled 2022-01-12 Screening for [facility] Test 15:05:35 malignant neoplasm of cervix (procedure) [code = 541319058] Future Scheduled 2022-01-12 BREAST CANCER [facility] Test 15:05:35 SCREENING [code = BREAST CANCER SCREENING] Future Scheduled 2022-01-12 COLONOSCOPY SCREENING [facility] Test 15:05:35 [code = COLONOSCOPY SCREENING] Future Scheduled 2022-01-12 SHINGLES VACCINES (1 [facility] Test 15:05:35 of 2) [code = SHINGLES VACCINES (1 of 2)] Future Scheduled 2022-01-12 INFLUENZA VACCINE Method [facility] Test 15:05:35 [code = INFLUENZA VACCINE] Future Scheduled 2022-01-12 HEPATITIS B VACCINES [facility] Test 15:05:35 (1 of 3 - 3-dose series) [code = HEPATITIS B VACCINES (1 of 3 - 3-dose series)] Future Scheduled 2022-01-12 COVID-19 VACCINE (#1) [facility] Test 15:05:35 [code = COVID-19 VACCINE (#1)] Future Scheduled 2022-01-12 Screening for [facility] Test 15:05:35 malignant neoplasm of cervix (procedure) [code = 318854243] Future Scheduled 2022-01-12 BREAST CANCER [facility] Test 15:05:35 SCREENING [code = BREAST CANCER SCREENING] Future Scheduled 2022-01-12 COLONOSCOPY SCREENING [facility] Test 15:05:35 [code = COLONOSCOPY SCREENING] Future Scheduled 2022-01-12 SHINGLES VACCINES (1 [facility] Test 15:05:35 of 2) [code = SHINGLES VACCINES (1 of 2)] Future Scheduled 2022-01-12 INFLUENZA VACCINE [facility] Test 15:05:35 [code = INFLUENZA VACCINE] Future Scheduled 2021-12-08 INFLUENZA VACCINE (#1) C [...] 2008 SHINGLES VACCINES ([address] [facility] Test 00:00:00 of 2) [code = SHINGLES Medic al Center VACCINES (1 of 2)] Future Scheduled 2008 SHINGLES VACCINES ([address] [facility] Test 00:00:00 of 2) [code = SHINGLES Medic al Center VACCINES (1 of 2)] Future Scheduled 2008 SHINGLES VACCINES ([address] [facility] Test 00:00:00 of 2) [code = SHINGLES Medic al Center VACCINES (1 of 2)] Future Scheduled 2008 SHINGLES VACCINES ([address] [facility] Test 00:00:00 of 2) [code = SHINGLES Medic al Center VACCINES (1 of 2)] Future Scheduled 2008 SHINGLES VACCINES ([address] [facility] Test 00:00:00 of 2) [code = SHINGLES Medic al Center VACCINES (1 of 2)] Future Scheduled 2008 SHINGLES VACCINES ([address] [facility] Test 00:00:00 of 2) [code = SHINGLES Medic al Center VACCINES (1 of 2)] Future Scheduled 2008 SHINGLES VACCINES ([address] [facility] Test 00:00:00 of 2) [code = SHINGLES Medic al Center VACCINES (1 of 2)] Future Scheduled 2008 SHINGLES VACCINES ([address] [facility] Test 00:00:00 of 2) [code = SHINGLES Medic al Center VACCINES (1 of 2)] Future Scheduled 2008 SHINGLES VACCINES ([address] [facility] Test 00:00:00 of 2) [code = SHINGLES Medic al Center VACCINES (1 of 2)] Future Scheduled 2008 SHINGLES VACCINES ([address] [facility] Test 00:00:00 of 2) [code = SHINGLES Medic al Center VACCINES (1 of 2)] Future Scheduled 2003-09-[address] [facility] Test 00:00:00 (procedure) [code = [facility] [id number]] Future Scheduled 2003-09-[address] Test 00:00:00 (procedure) [code = [facility] 17852279] Future Scheduled 2003-09-[address] [facility] Test 00:00:00 (procedure) [code = [facility] 07849628] Future Scheduled 2003-09-[address] [facility] Test 00:00:00 (procedure) [code = Medical Center 42772328] Future Scheduled 2003-09-[address] [facility] Test 00:00:00 (procedure) [code = [facility] 99414686] Future Scheduled 2003-09-[address] [facility] Test 00:00:00 (procedure) [code = Medical Center 07933435] Future Scheduled 2003-09-[address] [facility] Test 00:00:00 (procedure) [code = [facility] 17489848] Future Scheduled 2003-09-[address] [facility] Test 00:00:00 (procedure) [code = [facility] 92092211] Future Scheduled 2003-09-[address] Test 00:00:00 (procedure) [code = [facility] 99930584] Future Scheduled 2003-09-[address] Test 00:00:00 (procedure) [code = [facility] 38568199] Future Scheduled 2002-10-[address] [...] 1979-09-[address] [facility] 00:[facility]:00 malignant neoplasm of Medica l Center cervix (procedure) [code = 312532915] Future Scheduled 1979-09-[address] [facility] Test 00:00:00 malignant neoplasm of Medica l Center cervix (procedure) [code = 285058127] Future Scheduled 1979-09-[address] [facility] Test 00:00:00 malignant neoplasm of Medica l Center cervix (procedure) [code = 152164814] Future Scheduled 1979-09-[address] [facility] Test 00:00:00 malignant neoplasm of Medica l Center cervix (procedure) [code = 244703278] Future Scheduled 1979-09-[address] [facility] Test 00:00:00 malignant neoplasm of Medica l Center cervix (procedure) [code = 600425300] Future Scheduled 1979-09-[address] Test 00:00:00 malignant neoplasm of Medica l Center cervix (procedure) [code = 929105712] Future Scheduled 1979-09-[address] Test 00:00:00 malignant neoplasm of Medica l Center cervix (procedure) [code = 855363554] Future Scheduled 1979-09-[address] Test 00:00:00 malignant neoplasm of Medica l Center cervix (procedure) [code = 468378210] Future Scheduled 1979-09-[address] [facility] Test 00:00:00 malignant neoplasm of Medica l Center cervix (procedure) [code = 538525149] Future Scheduled 1979-09-[address] [facility] Test 00:00:00 malignant neoplasm of Medica l Center cervix (procedure) [code = 365638609] Future Scheduled 1977 DTAP/TDAP/TD VACCINES [facility] 00:[facility]:00 [code = COVID-[address] VACCINE (#1)] Future Scheduled 1959-03-08 COVID-19 [...] VACCINE (#1)] Future Scheduled [address] [facility] Test 00:00:00 malignant neoplasm of Medica l Center breast (procedure) [code = 433000502] Future Scheduled [address] Test 00:00:00 (combo) [code = CT Medical C enter Colonography (combo)] Future Scheduled [address] [facility] Test 00:00:00 malignant neoplasm of Medica l Center colon (procedure) [code = 994938941] Future Scheduled [address] [facility] Test 00:00:00 malignant neoplasm of Medica l Center colon (procedure) [code = 254593609] Future Scheduled [address] [facility] Test 00:00:00 malignant neoplasm of Medica l Center colon (procedure) [code = 429455231] Future Scheduled [address] [facility] Test 00:00:00 malignant neoplasm of Medica l Center colon (procedure) [code = 066310526] Future Scheduled 1960 Sigmoidoscopy [facility] [address] 00:00:00 malignant neoplasm of Medica l Center breast (procedure) [code = 270423792] Future Scheduled [address] [facility] Test 00:00:00 (combo) [code = CT Medical C enter Colonography (combo)] Future Scheduled [address] [facility] Test 00:00:00 malignant neoplasm of Medica l Center colon (procedure) [code = 581669201] Future Scheduled [address] [facility] Test 00:00:00 malignant neoplasm of Medica l Center colon (procedure) [code = 117319028] Future Scheduled 1960 Screening for [facility] [facility] 00:00:00 [facility] colon (procedure) [code = 598350006] Future Scheduled [address] [facility]:00 [facility] colon (procedure) [code = 062488005] Future Scheduled 1958 [facility] [address] [facility] 00:00:00 [facility] breast (procedure) [code = 966790436] Future Scheduled [address] [facility] 00:00:00 [facility] breast (procedure) [code = 800011277] Future Scheduled [address] [facility] 00:00:00 (combo) [code = CT [facility] enter Colonography (combo)] Future Scheduled [address] [facility] 00:00:00 [facility] colon (procedure) [code = 492295363] Future Scheduled [address] [facility] 00:00:00 [facility] colon (procedure) [code = 520612945] Future Scheduled [address] [facility] 00:00:00 [facility] colon (procedure) [code = 614048126] Future Scheduled [address] [facility] 00:00:00 [facility] colon (procedure) [code = 459949042] Future Scheduled [address] [facility] 00:00:00 [facility] colon (procedure) [code = 047127676] Future Scheduled 1958 [facility] Scheduled [address] [facility] 00:00:00 [facility] breast (procedure) [code = 238530840] Future Scheduled [address] [facility] 00:00:00 (combo) [code = CT [facility] enter Colonography (combo)] Future Scheduled [address] [facility] 00:00:00 [facility] colon (procedure) [code = 617964973] Future Scheduled [address] [facility] 00:00:00 [facility] colon (procedure) [code = 094694606] Future Scheduled [address] [facility] 00:00:00 [facility] colon (procedure) [code = 581864248] Future Scheduled [address] [facility] 00:00:00 [facility] colon (procedure) [code = 456652821] Future Scheduled 1958 S[facility]oidoscopy [facility]] [facility] Future Scheduled [address] [facility] 00:00:00 [facility] breast (procedure) [code = 986971444] Future Scheduled [address] [facility] 00:00:00 (combo) [code = CT [facility] enter Colonography (combo)] Future Scheduled [address] [facility] 00:00:00 [facility] colon (procedure) [code = 601855792] Future Scheduled [address] [facility] 00:00:00 [facility] colon (procedure) [code = 630154540] Future Scheduled [address] [facility] 00:00:00 [facility] colon (procedure) [code = 741085424] Future Scheduled [address] [facility] 00:00:00 [facility] colon (procedure) [code = 992979199] Future Scheduled 1958 Sigmoidoscopy [facility]] [facility] r Future Scheduled [address] [facility] 00:00:00 [facility] breast (procedure) [code = 929374740] Future Scheduled [address] [facility] 00:00:00 (combo) [code = CT Medical [facility] enter Colonography (combo)] Future Scheduled [address] [facility] 00:00:00 [facility] colon (procedure) [code = 163342559] Future Scheduled [address] [facility] 00:00:00 [facility] colon (procedure) [code = 690896246] Future Scheduled [address] [facility] 00:00:00 [facility] colon (procedure) [code = 667515247] Future Scheduled [address] [facility] 00:00:00 [facility] colon (procedure) [code = 388362101] Future Scheduled 1958 [facility]oid[facility]] [facility] r Future Scheduled [address] [facility] 00:00:00 [facility] breast (procedure) [code = 875142234] Future Scheduled [address] [facility] 00:00:00 (combo) [code = CT Medical [facility] enter Colonography (combo)] Future Scheduled [address] [facility] 00:00:00 [facility] colon (procedure) [code = 584251817] Future Scheduled [address] [facility] 00:00:00 [facility] colon (procedure) [code = 677201054] Future Scheduled [address] [facility] 00:00:00 [facility] colon (procedure) [code = 430077968] Future Scheduled [address] [facility] 00:00:00 [facility] colon (procedure) [code = 005516522] Future Scheduled 1958 [facility]oidoscopy [facility]] [facility] Future Scheduled [address] [facility] 00:00:00 [facility] breast (procedure) [code = 529070262] Future Scheduled [address] [facility] 00:00:00 (combo) [code = CT Medical C enter Colonography (combo)] Future Scheduled [address] [facility] 00:00:00 [facility] colon (procedure) [code = 906432593] Future Scheduled [address] [facility] 00:00:00 [facility] colon (procedure) [code = 402676333] Future Scheduled [address] [facility] 00:00:00 [facility] colon (procedure) [code = 775526083] Future Scheduled [address] [facility] 00:[facility]:00 [facility] colon (procedure) [code = 470718103] Future Scheduled 1958 [facility]oidoscopy [facility]] [facility] Future Scheduled [address] [facility] 00:00:00 [facility] breast (procedure) [code = 812857420] Future Scheduled [address] [facility] 00:00:00 (combo) [code = CT Medical C enter Colonography (combo)] Future Scheduled [address] [facility] 00:00:00 [facility] colon (procedure) [code = 700355684] Future Scheduled [address] [facility] 00:00:00 [facility] colon (procedure) [code = 394022737] Future Scheduled [address] [facility] 00:00:00 [facility] colon (procedure) [code = 019381241] Future Scheduled [address] [facility] 00:00:00 [facility] colon (procedure) [code = 111660145] Future Scheduled 1958 [facility]oid[facility]] [facility] Future Scheduled DIABETES: RETINAL EYE [facility] [code = 387957556] Future Scheduled Screening for [facility] Test malignant neoplasm of cervix (procedure) [code = 782432746] Future Scheduled BREAST CANCER [facility] Test SCREENING [code = BREAST CANCER [...] Clinicians Facility Department ID 2021-01-11 Outpatient OTAAMIR, [facility] Surgery [id number] SLE 23:34:53 [facility] 2021-01-11 Outpatient OTLASHONAN, [facility] Surgery [id number] SLEH 20:32:36 [facility] 2021-01-11 Outpatient OTLASHONAN, [facility] Surgery [id number] SLE 13:26:30 [facility] 2022-10-19 2022-10-19 Outpatient [id number] PRIV PRIV [id number] [facility] 00:00:00 00:00:00 marilou_Salud [id number] Medic hi 2022-02-02 2022-02-02 [facility], [facility] [id number] 10:36:00 14:56:00 [facility] 2022-02-02 2022-02-02 [facility] [id number] 10:36:00 14:56:00 [facility] 2022-02-02 2022-02-02 Outpatient MAIMIKE, [facility] Surgery [id number] SLE 10:36:00 14:56:00 [facility] 2022-02-02 2022-02-02 Surgery [facility], [facility] [id number] 13:00:00 14:30:00 [facility] 2022-02-02 2022-02-02 Surgery [facility], [facility] [id number] 13:00:00 14:30:00 [facility] 2022-02-02 2022-02-02 Anesthesia Jocelin Kimble [facility] [id number] [facility] 13:05:00 13:52:00 Event [facility] 2022-02-02 2022-02-02 Anesthesia Jocelin Kimble [facility] [id number] [facility] 13:05:00 13:52:00 Event [facility] 2022-02-02 2022-02-02 Travel [facility] [id number] [facility] 00:[facility]:00 00:00:00 [facility] 2022-02-02 2022-02-02 Travel [facility] [id number] [facility] 00:[facility]00 00:00:00 [facility] 2022-02-01 2022-02-01 Outpatient EL [facility]H SLEH [id number] [facility] 10:15:55 23:59:00 2022-02-01 2022-02-01 [facility] [id number] 10:00:00 23:59:00 Encounter [facility] 2022-02-01 2022-02-01 [facility] [id number] 10:00:00 23:59:00 Encounter [facility] 2022-02-01 2022-02-01 Travel [facility] [id number] [facility] 00:00:00 00:00:00 [facility] 2022-02-01 2022-02-01 Travel [facility] [id number] [facility] 00:[facility]:00 00:00:00 [facility] 2019-11-17 2019-11-17 Outpatient EL [facility]H [id number] [facility] 00:00:00 00:00:00 2019-08-15 2019-08-15 Outpatient EL [facility] [id number] [facility] 00:00:00 00:00:00 2018-05-24 2018-05-24 RAFAT Apodaca [place] [id number] [place] 10:30:00 10:30:00 t; WILL, Surgery Physi iliana ANTONIO D.O. Specialty lenin SOLIS D.O. 2018-04-26 2018-04-26 RAFAT Apodaca UTP [id number] [place] 10:15:00 10:15:00 t; WILL, Physi Patricia Estrada D.O. 2018-04-19 2018-04-19 RAFAT [place]aca UTP [id number] [place] 10:00:00 10:00:00 t; WILL, Physi ci FELINSKI, D.O. ans WILL, D.O. 2018-03-27 2018-03-27 Appointlindsey MARISELA, UTP UTP [id number] [place] 10:30:00 10:30:00 t; WILL, Physi ci FELINSKI, D.O. ans WILL, D.O. 2018-03-22 2018-03-22 Appointlindsey MARISELA, UTP UTP [id number] UT 10:30:00 10:30:00 t; WILL, Physi ci FELINSKI, D.O. ans WILL, D.O. 2018-03-06 2018-03-06 Appointmen FREDERICK, UTP UTP [id number] UT 08:30:00 08:30:00 t; CYRIL MACK M.D. P hysici HANI, M.D. ans 2018-02-14 2018-02-14 [facility] UTP [id number] [place] 08:15:00 08:15:00 t; WILL, Physi ci FELINSKI, D.O. ans WILL, D.O. 2018-01-11 2018-01-11 [facility] SEANINSKI[facility] UTP UTP [id number] UT 10:30:00 10:30:00 t; WILL, Physi ci FELINSKI, D.O. ans WILL, D.O. Results Test Description Test Time Test Comments Results Result Comments Source Tissue Exam 2022-04-07 14:17:17 Test Item Value Reference Range Interpretation Comme nts Case Report (test code = 104) Surgical Pathology Report Case: [id number] Authorizing Provider: Vinnie Oglesby, Collected: 02/02/2022 01:28 PM Ordering Location: [facility] Endoscopy Received: 03/06/2022 11:30 AM Services Pathologist: Ladarius Ureña MD Specimen: Polyp, Gastric, via EMR DIAGNOSIS (test code = 3220) s6pwuPInCBGng4amANZfcSPvDbQfUyFcOwR uYmpcdWMxIHtcc xYiCYzsmAinBKHpLhgpkkBzNLSxjHBwH7CvstpiSDcwQS5hYH 5hsZwjfIUqyJZuEJTbPiEdb6yfk337aGDsk5jjVTUUnjgnpBn 7nLpoH53hx0X3JaejR1bvOXFwWqcrpgEvwdI8SIZjeEHoBjf0 VDRkiUAywdQkEgRtOTHthMSovKR4BNHsJQ0uqjfhLElyYXkeG XVvzyN2GZHjbADoG7TiCBGgNU3lyiksQPY4XIrvTWZrMYA2Cc MzSFVag3Oyjpn4LcFjdESoIFmapSGffvrhzqEbMUCcDBRIUSx KPJRTHN7LMRXZLOUbZvxJMGdSQgHYJCJCLnrBErKET3tAELhY TTTTNr7RUDYHZyGXEbDWEPNHQCWPFRkxVtDhS33DZSAGCMRTP ZHLI43NWSfTDHFDQY9UZTVLT2CDIWLKCF5CJYbKTCueG85FDH OFFA3CDInoA46OMrAFWPrPJqJjQT0AR4XEK9JSSZqLPKTPKQ4 WCsZHJK8GPjHQSXBIAYRHSE5uOLEEUm6POSVRQmHKCKAzW0BC JG9SWUFKYjCGR7YyUPcGAeQIAMGBWoCEL6LCHHqOZURaCUvwI KNcTMJOUPRCS6JYRcIQCMFKLHRZIC6SBtWdTN4cVJkNHhMKYL MYFI4EUFVAOzYXRNEWHEMrPLGyTOyERCBUSwCKFSGIWS1GDX0 qtSCrlXsdqzEbNXpsa4VvDBcpWXIgXG4iiLcdVZVbKZ3aRUDw Y9hyuY0ygnn3WePcBKQxPoN8EMJdpdP5Dri9YHWuMDdbk7mjl 6MeJTDmOPp5vWiyDxVlJFLtz0hbabTfGoMcSOKzJSTzAMRmdL PcE074j6kis6esykVbcPR4ILWkBBQ9IUdblvZpofU5IDmueAF wQjD6HOowjsInEKvvnuTzmqSlQbw0VJNeD212FFT8xZaen5hd EMY2EKTpDYHoVcZqBd6nxJNqF550DUCpXYSZRFSnsZa2WVRct kMezeVqfAQVn321I715u0niSUWrtqOfyYlYtlfls0kxL996JS PqkXWjlgSjOuFlXGWstNNoiCD0BDAjGU8alzsfDErqZVhmGDQ nrqC6WOTrkPJpV4FyVIPlPB1gfdqhBSW2LTmvXFGoWHG4WhZw CLAjr6Kfyfd9IrCxjw0eke96TEP0s8McvErlWJV4GZJ9AaGzI z3naTMxQPUzSY1rGvIdlTWuYAGbes97jZunDSiwKTG1BMShma Wtz4Ysx8ujZsDshoPtY0fwX1GdFFLnLHMbKYVnDaCjirTtd4K lg6BrrYBbvBj5d4hyVJYnIYDhpRmli0nfMCC8ZEAuuVXpJ8bb sQ0hMAHpED5izqxrl7gmFGfgBHgpATLacDZ9boU1CUEmlQTrZ 6AqxX2iWSQuCTlkNMNmdtz5FrHtIc7xwLZlyLfxSYzyVdbbPV dlXHBnbmNvbnRccGduZGVjXHBsYWluXHBsYWluXGYwXGZzMjR aaXlwwMSgWaVgZsAcuMyczZysPQgqUxRyRJBaDGlhI5fkKbLy WsSfYod7IKWnzOOwVRXsPqe8QETpvHAeTJXXtAboqG4oTNQry DoreL3dnRO7QUGoixJesSOAjL6cTURJwX2lFlB4NSGnKue1YD N4QtEyvAOgxY4= [facility] [id number] 14:17:17 Test Item Value Reference Range Interpretation Comments Case Report (test code Surgical Pathology = 104) Report Case: [id number] Authorizing Provider: Vinnie Oglesby, Collected: 02/02/2022 01:28 PM MD Ordering Location: [facility] Endoscopy Received: 03/06/2022 11:30 AM Services Pathologist: Ladarius Ureña MD Specimen: Polyp, Gastric, via EMR DIAGNOSIS (test code = [id number] 3220) uZzEwMzNcZnRuYmpcdWMxIH tccnRmMVxlcGljOTYwMlxhb rAwNCZswVIyD8VmvsxaUYjx XL3tJL0klNccsDPvwBQlXHU oBwTlg1ldx721lOLgh2tkXM VFpgleaIh8uNjqL56vp9Z1N zkdI6fnKPEuSxkaxdTuluD1 CAUbvOLxCsu2HMXwqWCjwaQ uHaTgXNMsyGTczQY4RIUfFA 7yoobyKTctYZliZHRtjgG8X LIpiUYcL9TnUCIyDO4axosp PPY7MUukPIEwOWR1TkDrNUY cs5Oimcd6GaKaxFJiXOyafU FpblxmczIwXGNmMSBUSElTI XPUHF6PYOKHDNCyKyrUGMqC DkFVXNTZXckHXuZUQ4mORIw DHQJNZk5IEHIYAaDEZlNIWL PQHYWANGekGbEuH86RWKJKN NTEOBMNJ20JBKiUXUGZYF5R EFOTM5KAMBODRT0VFFiAWXt nR22VABUULI9YWVqtX54YLk CIBAdSAzCfLA6FF3DLN0ZAY RsXTFFOKI2YOtUKMW4HPvKI NOKAAIUCZO9tJQMVBd3BHFE MReARAOJoZ1NELW2BTRRPWh DAM3TlNBuDJmINPDCCMfBTK 1JZIElTIDIxMDgzMDEuIFRI PSBML2FYGbBNCWCKJLYSFT7 GHeDkLV9gGPiMCwIFNOUCRL 5VTUJFUiBTRVJWRVMgQVMgV NjLGPRGUwJRCZCZYF0ZXS7p iXPcdDgtqmYmOCuei8FzHOw kFDEtNA5aeBieUAUiLU2uSQ FmG2uihF4yrxo5PrOzVYYvX tN7VWPdctX6Xfq2KOUuDJlw c6bgv3ScNMJgLQk0pZcwIwI aGIFse6hzrpViQpAoKHWvKL FfFNSzrEVhF312i9ulb0prx fJskEX6QQXgGGZ1SZdxhqHk iiR3LQtilYThYmJ6WZvmtdH lGPmcxqIdwvItIfc2YEUwL7 62BHC4wLokv9gaQNT1YFHjY BMgYcExPg6yeNBuZ829BIKi RIUQHPBtfUm7GIHehwLnnfF ysWLEy620M539j5mvFSDzis NxkHdCeefna8shM944AAFsf GVydzEyMjQwXHBhcGVyaDE1 JEHjFQ9xsqadGYtuOPbgWRG gchO2ETMnvBCeI1BiIMWeNO 0xiutzMNG7WKipCSKeKUU1K mLeDBCfd0Aehio0YmGufd2d pt06DGX1t8MukGvfQWM6WHJ 6CbUiTk8mlDIaHGDfGJ1jNe IioAYpOTPchl67pQveJAncH WW1EWRrdlNcf7Rnq7lzApVq yxNfJ3ppF7AuYYIqTXOuORX jEqYnsyLxa4Lkk4QqwRQovC p6l6ouRNZiFKEtzZhdl6uwQ EJ9OAOjtOHhD6fzwQ0lOWJa GY2qjuwtm2whIUziBPagHLX ixPS1usQ3RAHtmWAvW6JknL 2cPBYcSMrtZHZapgb6CuDtZ f4adGMobZtcTVehAoxuSMex XHBnbmNvbnRccGduZGVjXHB sYWluXHBsYWluXGYwXGZzMj RccWxcbGFuZzEwMzNcaGlja CymXCboZxGeSOSfEHixW4mi BwXwWyBvPfk6AYTraXGlGDO dObm8LUVdnODxFNPSgVlogW 8lBNSavPzhpW0ofYX8JMJtu uQzkVVGcP2uRFTFyW0eUzW2 DSFlQjs8VMQ6JsCleMQkwZ5 = [facility] [id number] 14:17:17Surgical Pathology Report Case: [id number] Authorizing Provider: Vinnie Oglesby, Collected: 02/02/2022 01:28 PM Ordering Location: [facility] Endoscopy Received: 03/06/2022 11:30 AM Services Pathologist: Ladarius Ureña MD Specimen: Polyp, Gastric, via EMR THIS REPORT WAS FINALIZED DURINGDOWNTIME PROCEDURES. THERE MAY BE SOME VARIATIONS IN REPORT FORMATTING WITH SOME MANUAL CORRECTIONS. MICROSCOPIC EXAMINATIONS HAVE BEEN PERFORMED. THE CAP NUMBER FOR THIS LABORATORY IS [id number]. THE SCANNED ATTACHMENT TO THIS CASE NUMBER SERVES THE FINAL REPORT. Signing Pathologist Direct Phone Line: [phone] signed by Ladarius Ureña MD on 04/07/2022 at 2:17 PMPOC-Glucose [id number] 14:00:02 Test Item Value Reference Range Interpretation Comments POC-Glucose Meter (test 100 mg/dL 70-110 : TE STED AT [facility] code = 1538) [address] [facility], 770 30: Dispatcher Ship Pilot/Techni wendy ID = [id number] for Alban Moreno Lab Interpretation (test Normal code = 68394-7) [facility]-Glucose [id number] 14:00:02 Test Item Value Reference Range Interpretation Comments POC-Glucose Meter (test 100 mg/dL 70-110 : TE STED AT [facility] code = 1538) [address] [place] [address], [facility] 30: Dispatcher Ship Pilot/Techni wendy ID = [id number] for Josh, Shemek e Lab Interpretation (test Normal code = 34542-1) [facility] [id number] 14:00:02 Test Item Value Reference Range Interpretation Comments POC-Glucose Meter (test 100 mg/dL 70-110 : TE STED AT [facility] code = 1538) [address] [place] [address], [facility] 30: Dispatcher Ship Pilot/Techni wendy ID = [id number] for Josh, Shemek e Lab Interpretation (test Normal code = 63262-7) [facility]-Glucose [id number] 14:00:02 Test Item Value Reference Range Interpretation Comments POC-Glucose Meter (test 100 mg/dL 70-110 : TE STED AT [facility] code = 1538) [address] [place] [address], 770 30: Dispatcher Ship Pilot/Techni wendy ID = [id number] for Josh, Shemek e Lab Interpretation (test Normal code = 73256-5) [facility]-Glucose [id number] 14:00:02 Test Item Value Reference Range Interpretation Comments POC-Glucose Meter (test 100 mg/dL 70-110 : TE STED AT [facility] code = 1538) [address] [place] [address], [facility] 30: Dispatcher Ship Pilot/Techni wendy ID = [id number] for Josh, Shemek e Lab Interpretation (test Normal code = 48011-5) [facility] [id number] 14:00:02 Test Item Value Reference Range Interpretation Comments POC-Glucose Meter (test 100 mg/dL 70-110 : TE STED AT [facility] code = 1538) [address] [place] [address], 770 30: Dispatcher Ship Pilot/Techni wendy ID = [id number] for Josh, Shemek e Lab Interpretation (test Normal code = 34208-4) [facility] [id number] 14:00:02 Test Item Value Reference Range Interpretation Comments POC-Glucose Meter (test 100 mg/dL 70-110 : DAVE IBARRA AT [facility] code = 1538) [address] [facility], 770 30: Dispatcher Ship Pilot/Techni wendy ID = [id number] for Josh Destineemelony e Lab Interpretation (test Normal code = 76648-6) [facility] [id number] 14:00:02 Test Item Value Reference Range Interpretation Comments POC-GLUCOSE METER 100 mg/dL 70-110 : TESTED A T [facility] 6720 (BEAKER) (test code = [facility], 153) 82699: Dispatcher Ship Pilot/Techni wendy ID = [id number] for Leah mary Destineeeliu POCT-GLUCOSE [id number] 12:19:11 Test Item Value Reference Range Interpretation Comments POC-GLUCOSE METER 120 mg/dL 70-110 H : [facility] (test code = [facility], 153) 17993: Dispatcher Ship Pilot/Techni wendy ID = [id number] for JOSE LUIS Cortez HEMOGLOBIN [id number] 09:28:00 Test Item Value Reference Range Interpretation Comments HEMOGLOBIN A1C (BEAKER) (test code = 8.1 % 4.3-6.1 H 368) POCT-GLUCOSE [id number] 07:44:00 Test Item Value Reference Range Interpretation Comments POC-GLUCOSE METER 130 mg/dL 70-110 H : TESTED A T [facility] 6720 (BEAKER) (test code = [facility], 153) 24016: Dispatcher Ship Pilot/Techni wendy ID = [id number] for KRISSY FINNEGAN COMPREHENSIVE METABOLIC [id number] 06:55:00 Test Item Value Reference Range Interpretation [...] S NOT APPLICABLE FOR DIALYSIS PATIEN TS. Dispatcher Ship Pilot ID - [id number] LCBC W/PLT COUNT & AUTO [id number] 05:55:00 Test Item Value Reference Range Interpretation [...] PERCENT (BEAKER) (test code = 2801) POCT-GLUCOSE [id number] 21:17:00 Test Item Value Reference Range Interpretation Comments POC-GLUCOSE METER 255 mg/dL 70-110 H : TESTED A T [facility] 6720 (BEAKER) (test code = [place], 1538) 12986: Dispatcher Ship Pilot/Techni wendy ID = [id number] for ABHILASH MARTI [id number] 11:22:39INTRA OP IMAGINGReason for exam:->abnormal imaging Fluoroscopic unit utilized for a procedure performed in the OR. No interpretation was requested. Refer to the operative report for findings. Refer to PACS for patient radiation dose information.POCT-GLUCOSE [id number] 07:45:00 Test Item Value Reference Range Interpretation Comments POC-GLUCOSE METER 155 mg/dL 70-110 H : TESTED A T [facility] 6720 (BEAKER) (test code = [place], 1538) 17348: Dispatcher Ship Pilot/Techni wendy ID = [id number] for ED KATIE WOODWARD TISSUE [id number] 09:36:00Surgical Pathology Report Case: [id number] Authorizing Provider: Vinnie Oglesby Collected: 08/26/2019 12:43 PM MD Beatrice Ordering Location: [facility] Endoscopy Received: 08/26/2019 01:56 PM Mamadou pavon Pathologist: Isac Cummins MD Specimen: Biopsy, Gastric, gastric polyp A. STOMACH, POLYP, BIOPSY: - ANTRAL MUCOSA WITH POLYPOID FOVEOLAR HYPERPLASIA - NEGATIVE FOR HELICOBACTER PYLORI ORGANISMS BY WARTHIN STARRY STAIN - NEGATIVE FOR INTESTINAL METAPLASIA, DYSPLASIA, MALIGNANCY Signing Pathologist Direct Phone Line: [phone] signed by Isac Cummins MD on 08/27/2019 at 9:36 [id number]: upper endoscopy, biopsyPre and postop diagnosis: acute pancreatitisA. Biopsy, gastricA. Received in formalin labeled with the patient's name, accession number and "gastric biopsy", with the additional description "gastric polyp" is one irregular winston-pink piece of mucos al-covered soft tissue measuring 0.4 x 0.3 x 0.2 cm. The specimen is submitted in toto following filtration in cassette A1. RAFA/plPerformed.The interpretation of this case included the use of immunohistochemistry or special stains.Control Slides Examined: In-house known positive controls were evaluatedalong with the test tissue. These control slides run alongside of the patients sample show appropriate staining. Internal positive and negative controls when available are evaluated Immunohistochemistry technical testing was performed at [facility], Pathology Laboratory where it was developed and its performance characteristics were determined. It has not been cleared or approved by the U.S. Food and Drug Administration. The FDA has determined that such clearance or approval isnot necessary. The test is used for clinical purposes. It should not be regarded as investigational or for research. This laboratory is certified under the Clinical Laboratory Improvement Amendments fq5097 (CLIA-88) as qualified to perform high complexity clinical laboratory testing.POCT-GLUCOSE [id number] 13:26:00 Test Item Value Reference Range Interpretation Comments POC-GLUCOSE METER 122 mg/dL 70-110 H : TESTED A T [facility] 6720 (Extenda-Dent) (test code = TERRI Hirsch [facility], 1538) [address]: Dispatcher Ship Pilot/Techni wendy ID = [id number] for Ilda Bailey POCT-GLUCOSE [id number] 11:40:00 Test Item Value Reference Range Interpretation Comments POC-GLUCOSE METER 137 mg/dL 70-110 H : TESTED A T [facility] 67[address] (Extenda-Dent) (test code = TERRI Hirsch [facility], 1538) [address]: Dispatcher Ship Pilot/Techni wendy ID = [id number] for KATIE CANTU COLON SEGMENT RESEC.NOT [id number] 19:21:00 RUN DATE: 11/14/18 [facility] PAGE 1 RUN TIME: 810 Specimen Inquiry RUN USER: INTERFACE --PATIENT: DAISY CARRION [facility] [facility] [place] #: [id number] AGE/SX: 58/F ROOM: Pending Sale To [facility] RE11/11/18REG DR:Betito Collazo MD : 56 BED: A DIS: 11/13/18 STATUS: DIS Sharla TLOC: SPEC #: [id number] RECD: 11/11/18 STATUS: BRITTNY JIANG #: [id number] CRISTINO: 11/11/18- LILI DR: Betito Collazo MD ENTERED: 11/11/18 SP TYPE: COLONR NIDIA DR: ORDERED: LEVEL V SURGICA CODES: [id number] - COLON, NOS PROCEDURES: LEVEL V SURGICA (Incomplete) TISSUES: COLON, NOS - RECTOSIGMOID DIVERTICULITIS CLINICAL HISTORY 58 year old, diverticulitis (wpd) FINAL DIAGNOSIS Designated "rectosigmoid diverticulitis", segmental resection: - diverticular disease with peridiverticular fibrosis - intestinal rings - unremarkable CPT code(s): 26381 pkg/wpd 11/13/18 GROSS DESCRIPTION ANATOMIC SOURCE OF [...] and contains unremarkable mucosa and surrounding tissue. Barrel Painter sections are submitted in A2. The largest [...] Specimen Inquiry RUN USER: INTERFACE SPEC #: [id number] PATIENT: DAISY CARRION #[id number] (Continued)------ ------ GROSS DESCRIPTION (Continued) 1.0 cm and containing green-brown fecal material. No discrete perforation or discoloration in those areas are noted. Barrel Painter sections of the intestine with the diverticula are submitted in A3 - A8. Examination of attached adipose tissue reveals no discrete lymph nodes. Barrel Painter sections are submitted in A9 - A16. hz/wpd 11/11/18 @ 9254 MICROSCOPIC DESCRIPTION The specimenconsists of a segment of rectosigmoid colon containing numerous diverticula which extend through themuscularis into the rectosigmoid adipose tissue. Foci of fibrosis are present adjacent to the diverticula. No granulomas, dysplasia or neoplasia are identified. The intestinal rings are unremarkable. pkg/wpd 11/13/18 Signed Deena Storm 11/13/181920 END OF REPORT [id number] 07:10:00 Test Item Value Reference Range Interpretation Comments GLUBED (test code = GLUBED) 180 mg/dL 65-110 H COMPREHENSIVE METABOLIC [id number] 05:48:00 Test Item Value Reference Range Interpretation [...] 106 units/L 46-116 N code = ALKP) [id number] 05:48:00 Test Item Value Reference Range Interpretation Comments MAGNESIUM (test code = MAG) 1.8 mg/dL 1.8-2.4 N CBC W/AUTO [id number] 04:49:00 Test Item Value Reference Range Interpretation [...] REQUIRED (test NORMAL NORMAL code = PLTMR) [id number] 21:57:00 Test Item Value Reference Range Interpretation Comments GLUBED (test code = GLUBED) 278 mg/dL 65-110 H [id number] 17:26:00 Test Item Value Reference Range Interpretation Comments GLUBED (test code = 292 mg/dL 65-110 H Hypoglyc emic Protoco GLUBED) [id number] 12:11:00 Test Item Value Reference Range Interpretation Comments GLUBED (test code = GLUBED) 131 mg/dL 65-110 H [id number] 07:23:00 Test Item Value Reference Range Interpretation Comments GLUBED (test code = GLUBED) 110 mg/dL 65-110 N CHEMISTRY 7 [id number] 05:23:00 Test Item Value Reference Range Interpretation [...] code = CA) 7.8 mg/dL 8.4-10.2 L [id number] 05:23:00 Test Item Value Reference Range Interpretation Comments MAGNESIUM (test code = MAG) 1.8 mg/dL 1.8-2.4 N CBC W/AUTO [id number] 05:19:00 Test Item Value Reference Range Interpretation [...] REQUIRED (test NORMAL NORMAL code = PLTMR) [id number] 22:07:00 Test Item Value Reference Range Interpretation Comments GLUBED (test code = GLUBED) 171 mg/dL 65-110 H [id number] 17:41:00 Test Item Value Reference Range Interpretation Comments GLUBED (test code = GLUBED) 157 mg/dL 65-110 H [id number] 13:26:00 Test Item Value Reference Range Interpretation Comments GLUBED (test code = GLUBED) 154 mg/dL 65-110 H [id number] 06:54:00 Test Item Value Reference Range Interpretation Comments GLUBED (test code = GLUBED) 143 mg/dL 65-110 H CHEMISTRY 7 [id number] 13:07:00 Test Item Value Reference Range Interpretation [...] = CA) 8.5 mg/dL 8.4-10.2 N HGB [id number] 12:51:00 Test Item Value Reference Range Interpretation Comments HEMOGLOBIN (test code = HGB) 13.6 g/dL 10.7-13.9 N HEMATOCRIT (test code = HCT) 40.3 % 32.1-42.1 N Notes Date/Time Note Provider Source 2018-11-13 08:41:00-00:00 [facility] ([facility]) Discharge Summary REPORT#:[id number] REPORT STATUS: Signed DATE:11/13/18 TIME: 08 PATIENT: DAISY CARRION UNIT #: [id number] ROOM/BED: [address] : 56 AGE: 58 SEX: F ATTEND: Betito Collazo MD ADM AUTHOR: Liam Vega MD * ALL edits or amendments must be made on the el [facility]/computer document * PCP PCP Discharge to: home General Information Date of discharge: 11/13/18 Hospital course: Uncomplicated post operative course. Diet advanc ed with return of bowel function. Ambulating without difficulty. Pain co ntrolled with oral medication Med Rec PCP PCP: PCP: No Primary or Family Physician Med Rec Discharge meds: Continue taking these medications: ATORVASTATIN (LIPITOR) 20 MG TAB 20 MILLIGRAM ORAL DAILY. LISINOPRIL (ZESTRIL) 10 MG TAB 10 MILLIGRAM ORAL DAILY. PANTOPRAZOLE DR (PROTONIX) 40 MG TAB.DR 40 MILLIGRAM ORAL TWICE DAILY. DICYCLOMINE (BENTYL) 20 MG TAB 20 MILLIGRAM ORAL THREE TIMES A DAY. LIPASE/PROTEASE/AMYLASE (CREON 36) 1 CAP CAP.DR 1 CAPSULE ORAL WITH MEALS. LUBIPROSTONE (AMITIZA) 8 MCG CAP 8 MICROGRAM ORAL TWICE DAILY WITH MEALS. ONDANSETRON ODT (ZOFRAN ODT) 4 MG TAB.RAPDIS 4 MILLIGRAM ORAL EVERY 12 HOURS. INSULIN GLARGINE (LANTUS) 100 UNITS/ML VIAL 0 UNITS SUBCUTANEOUS EVERY 12 HOURS. Comments: 35/40 BID Objective VS/I O Last Documented: Result Date Time Pulse Ox 99 11/13 817 B/P 140/71 11/13 817 B/P Mean 93.9 11/13 817 Temp 36.6 11/13 817 Pulse 66 11/13 817 Resp 18 11/13 817 O2 Delivery Room air 11/12 1623 O2 Flow Rate 10.849048 11/11 1926 24 hour I O ending at 0700: 11/13 0700 11/12 1900 Intake Total 925.00 Output Total 1600 Balance -675.00 Intake, IV 925.00 Number Voids 3 Output, Urine 1600 Patient Weight Weight (lb): 150 Weight (oz): 12.74 Weight (kg): 68.400 Discharge Instructions Diet: bland, diabetic Activity: light duty, non-strenuous Wound/dressing care: Keep wound clean and dry Notify provider of these s/s: fevers, chills, nausea, worsening abdominal pain Return to work/school: No Follow-up Appointments Attending Physician: Attending Physician: Betito Collazo MD Special instructions: Follow up in 10-[address] Collazo Quality Medications Current medication review: I attest that the foregoing medication list in t he medical record is true, accurate, and complete to the best of my knowled ge. Electronically Signed by Liam Vega MD on 10/25 at 0842 RPT #:[id number] END OF REPORT 2018-11-12 06:33:00-00:00 [facility] ([facility]) General Surgery Progress Note REPORT#:[id number] REPORT STATUS: Signed DATE:11/12/18 TIME: 632 PATIENT: DAISY CARRION UNIT #: [id number] ROOM/BED: Pending [facility] To [facility]-A : 56 AGE: 58 SEX: F ATTEND: Betito Collazo MD ADM AUTHOR: Liam Vega MD * ALL edits or amendments must be made on the el [employer]/computer document * Diagnosis, Assessment Plan Free Text A P: POD 1 Robotic LAR for diverticulitis nausea and pain better controlled this morning, no flatus vitals reviewed abdomen soft appropriately tender mildly distend ed incisions c/d/i Labs reviewed Pain management discontinue nick decrease IVF DVT ppx Mobilization Advance diet with return of bowel function Electronically Signed by Liam Vega MD on 09/25 at 0634 [facility] #:[id number] END OF REPORT 2018-11-11 16:56:00-00:00 [id number] [facility] [address] [address] PATIENT NAME: DAISY CARRION ADMIT DATE: ACCOUNT NO: [id number] ROOM NO: Pending Sale To [facility] AGE: 58 SEX: F ADMITTING PHYSICIAN: Betito Collazo MD ATTENDING PHYSICIAN: Betito Collazo MD OPERATION DATE: 11/11/2018 PREOPERATIVE DIAGNOSIS: Recurrent diverticulitis . POSTOPERATIVE DIAGNOSIS: Recurrent diverticuliti s. PROCEDURES: 1. Laparoscopic-assisted robotic anterior rectos igmoid resection with primary colorectal anastomosis. 2. Laparoscopic splenic flexure takedown. 3. Intravascular injection of ICG for fluorescen ce angiography. COLORECTAL SURGEON: Betito Collazo MD BOILERMAKER LOFTSMAN: Dr. Liam Vega. ANESTHESIA: General endotracheal anesthesia. SPECIMEN: Rectosigmoid resection for diverticuli tis. COMPLICATIONS: None. CONDITION: Stable. ESTIMATED BLOOD LOSS: 50 mL. INDICATIONS AND FINDINGS: The patient presents w ith recurrent diverticulitis. Resection was recommended. L aparoscopic-assisted robotic approach was performed and resection was performed. Transrectal extract ion of the specimen was achieved and a primary colorectal anastomosis, s plenic flexure taken was required for a tension-free anastomosis. The intravascular injection of ICG was performed, which confirmed viability of anastomosis. The patient tolerated the procedure well without complications. Surgical assistant manager bilingual was present, Dr. July villatoro. He was required to complete and accomplished procedure in a robotic and safe [facility]. PROCEDURE IN DETAIL: The patient was taken to [facility] operating room and after induction of anesthesia, john batool in the left lithotomy position, was prepped and draped in sterile fashion. Laparoscopic access w as gained with 5-mm Optiview trocar. Ports were placed on the right and umbil icus, one on the left. The patient was placed in Trendelenburg, left side e levated. The robot was docked. PATIENT NAME: DAISY CARRION [id number] Next about an hour, Dr. Delong performed exposur e with lysis of adhesions. There were multiple pelvic adhesions. Once this was accomplished, attention was then drawn to the left colon. The left colon was taken down the splenic flexure and takedown was then achieved and the l yin sac was entered. Next, rectosigmoid dissection was performed mobilizing the colon lateral rectal attachments were taken down and anterior cul-de- sac was entered, fully mobilized in the rectum. Next, a window was made between the left colon and sigmoid. The mesentery was taken down to the lev el of the rectum. The rectum was divided as was the left colon. An Al ret ractor was introduced into the rectum. The specimen was removed transrectal ly. The retractor was removed. Next, the anvil to the 29 stapler was i ntroduced, secured in place to the left colon; however, due to the multiple tics, we removed it, took a bit more colon down and replaced and replaced it with the 31 EEA stapler. The anvil was secured with pursestring suture of end oleak. Next, rectal cuff was closed around the spike of the stapler. Primary colorectal anastomosis was performed and was tension free, both donuts were intact, although thickened. Next, intravascular injection of ICG was perform ed, which revealed viability of the anastomosis. The anastomosis was oversewn with interrupted 3- 0 Vicryl sutures. Final proctoscopic evaluation revealed an intact anast omosis. No bubbles or leaks noted on air insufflation test. Pneumoperitoneum was released. Ports wer e removed. Port sites were closed with 4-0 Monocryl and Dermabond. The patient tolerate d the procedure well and was taken to recovery room in good condition. Dictated By: Betito Collazo MD WT: OP:F.ZACH/SHERI/NIRAJ Conf#: [id number]/DID#: [id number] Authenticated and Edited by Betito Collazo MD On 3:44:39 PM Electronically Signed by Betito Collazo MD on 11/07 12/26 at 1547 PATIENT NAME: DAISY CARRION [id number] 2018-11-06 12:23:00-00:00 [id number] [facility] [address] [address] PATIENT NAME: DAISY CARRION ADMIT DATE: ACCOUNT NO: [id number] ROOM NO: AGE: 58 SEX: F ADMITTING PHYSICIAN: ATTENDING PHYSICIAN: Betito Collazo MD Order: [id number] Test Reason : PRE OP Test Date/Time Stamp: SunNov 06 2018 12:23:13 Blood Pressure : / mmHG Vent. Rate : 056 BPM Atrial Rate : 056 BPM P-R Int : 152 ms QRS Dur : 084 ms QT Int : 480 ms P-R-T Axes : 011 -02 046 degree s QTc Int : 463 ms Sinus bradycardia Prolonged QT Nonspecific T wave abnormality Abnormal ECG No previous ECGs available Confirmed by ANAHI RIVERS MD ([id number]) on 7:46:25 AM Referred By: Betito Collazo Confirmed by:ANAHI RIVERS MD Electronically Signed by Anahi Rivers MD on 0 11/08/18 at 0746 PATIENT NAME: DAISY CARRION [id number]
[2022-10-21 10:48] LABS: Absolute Lymphocytes (CBC) 2.1 K/uL (0.7-4.9); Lymphocytes % 25.1 % (15.3-44.8); MCV 88.6 fL (80-100); MPV 7.4 fL (7.6-11.3); RBC Red Blood Cell Count 4.75 M/uL (3.86-4.86)
[2022-10-21] MEDS ORDERED: FAMOTIDINE 20 MG/2 ML VIAL IV ONE (10:51)
[2022-10-21] MEDS ORDERED: KETOROLAC 30 MG/ML INJ ONE (10:51)
[2022-10-21] MEDS ORDERED: NA CHLORIDE 0.9% 1,000 ML ONE (10:51)
[2022-10-21] MEDS ORDERED: ONDANSETRON 4 MG/2 ML VIAL ONE (10:51)
[2022-10-21 11:05] LABS: Albumin 3.5 g/dL (3.4-5.0); Bilirubin Total 0.4 mg/dL (0.2-1.0); Protein, Total 8.2 g/dL (6.4-8.2)
[2022-10-21 11:41] LABS: Specific Gravity 1.024 (1.005-1.030); Urine Bilirubin NEGATIVE (Negative); Urine Blood Negative (Negative); Urine Clarity Clear (Clear); Urine Color Light-Yellow (Yellow); Urine Glucose 4+ (Over) (Negative); Urine Protein NEGATIVE (Negative); Urine Urobilinogen Normal (Normal); Urine pH 6.5 (5.0-7.0)
--- NOTE | 2022-10-21 12:01 | EDPHYS ---
Physician Documentation [facility] Name: Robyn Carrion Age: 62 yrs Sex: Female : 1960 Arrival Date: 10/21/2022 Time: 10:18 Bed 20 Private MD: ED Physician Tian Stuart HPI: 10/21 12:23 This 62 yrs old Female presents to ER via Ambulatory with complaints of kb Abdominal Pain. 12:23 The patient presents with abdominal pain in the upper abdomen. Onset: The kb symptoms/episode began/occurred yesterday. The symptoms radiate to right back. Associated signs and symptoms: Pertinent positives: nausea, Pertinent negatives: diarrhea, fever, vomiting. The symptoms are described as constant. Modifying factors: The symptoms are alleviated by nothing, the symptoms are aggravated by nothing. Severity of pain: At its worst the pain was mild in the emergency department the pain is unchanged. The patient has not experienced similar symptoms in the past. The patient has not recently seen a physician. Historical: - Allergies: 10:28 Codeine; hb 10:28 HYDROCODONE; hb - Home Meds: 10:28 atorvastatin Oral [Active]; Carafate 1 gram Oral tab 1 tab 4 times per day [Active]; hb Creon Oral [Active]; Dicyclomine Oral [Active]; Lantus Sub-Q [Active]; lisinopril Oral [Active]; Protonix Oral [Active]; - PMHx: 10:28 fernando esophageal disease; cricopharyngeal spasm; Hernia; High Cholesterol; hb Hypertensive disorder; IDDM; Pancreatitis; vericose vein; - PSHx: 10:28 bladder prolapse SX; Cholecystectomy; colon removal; ercp; hernia repair; hysterectomy; hb polyp removed; - Immunization history:: Adult Immunizations up to date. - Social history:: Smoking status: Patient denies any tobacco usage or history of. ROS: 12:22 Constitutional: Negative for fever, chills, and weight loss. kb 12:22 Abdomen/GI: Positive for abdominal pain, nausea. 12:22 All other systems are negative. Exam: 12:22 Constitutional: This is a well developed, well nourished patient who is awake, alert, kb and in no acute distress. Head/Face: Normocephalic, atraumatic. ENT: Moist Mucous membranes Cardiovascular: Regular rate and rhythm with a normal S1 and S2. No gallops, murmurs, or rubs. No pulse deficits. Respiratory: Respirations even and unlabored. No increased work of breathing. Talking in full sentences Skin: Warm, dry with normal turgor. Normal color. MS/ Extremity: Pulses equal, no cyanosis. Neurovascular intact. Full, normal range of motion. Neuro: Awake and alert, GCS 15, oriented to person, place, time, and situation. Moves all extremities. Normal gait. 12:22 Abdomen/GI: Inspection: abdomen appears normal, Bowel sounds: normal, Palpation: soft, in all quadrants, mild abdominal tenderness, in the right upper quadrant and left upper quadrant. Vital Signs: 10:26 BP 189 / 85; Pulse 75; Resp 16; Temp 98.2(O); Pulse Ox 100% on R/A; Weight 69.85 kg; hb Height 5 ft. 2 in. ; Pain 7/10; 10:26 Body Mass Index 28.17 (69.85 kg, 157.48 cm) hb 10:26 Pain Scale: Adult hb MDM: 10:27 Patient medically screened. kb 12:22 Differential diagnosis: gastritis, gastroesophageal reflux disease, non-specific abd kb pain, pancreatitis. Data reviewed: vital signs, nurses notes. Test considered but Not performed: CT: CT considered, but pt afebrile, nontoxic in appearance, labs wnl. Pt has had this pain multiple times in the past. Counseling: I had a detailed discussion with the patient and/or guardian regarding: the historical points, exam findings, and any diagnostic results supporting the discharge/admit diagnosis, lab results, the need for outpatient follow up, a family practitioner, a painting instructor, to return to the emergency department if symptoms worsen or persist or if there are any questions or concerns that arise at home. 10/21 10:27 Order name: CBC with Diff; Complete Time: 10:52 kb 10/21 10: Order name: CMP; Complete Time: 11:11 kb 10/21 10:27 Order name: Lipase; Complete Time: 11:11 kb 10/21 10:27 Order name: Urinalysis w/ reflexes; Complete Time: 12:00 kb 10/21 10:27 Order name: IV Saline Lock; Complete Time: 10:38 kb 07/15 10:27 Order name: Labs collected and sent; Complete Time: 10:38 kb Administered Medications: 10:48 Drug: Ondansetron IVP 4 mg Route: IVP; Site: right forearm; ap3 12:27 Follow up: Response: No adverse reaction ap3 10:48 Drug: Famotidine IVP 20 mg Route: IVP; Site: right forearm; ap3 12:27 Follow up: Response: No adverse reaction ap3 10:48 Drug: Ketorolac IVP 15 mg Route: IVP; Site: left forearm; ap3 12:27 Follow up: Response: No adverse reaction ap3 10:49 Drug: NS 0.9% IV 1000 ml Route: IV; Rate: 1000 ml; Site: right forearm; ap3 12:27 Follow up: IV Status: Completed infusion ap3 Disposition Summary: 10/21/22 12:00 Discharge Ordered Location: Home kb Condition: Stable kb Diagnosis - Upper abdominal pain, unspecified kb Followup: kb - With: Emergency Department - When: As needed - Reason: Worsening of condition Followup: kb - With: Private Physician - When: 2 - 3 days - Reason: Recheck today's complaints, Continuance of care, Re-evaluation by your physician Discharge Instructions: - Discharge Summary Sheet kb - Abdominal Pain, Adult, [id number] kb Forms: - Medication Reconciliation Form kb - Thank You Letter kb - Antibiotic Education kb - Prescription Opioid Use kb - Patient Portal Instructions kb Prescriptions: - Protonix 40 mg Oral Tablet - take 1 tablet by ORAL route once daily; 30 tablet; Refills: 0, Product kb Selection Permitted - Zofran 4 mg Oral Tablet - take 1 tablet by ORAL route every 6 hours As needed; 12 tablet; Refills: 0, kb Product Selection Permitted - dicyclomine 20 mg Oral Tablet - take 1 tablet by ORAL route 4 times per day As needed; 12 tablet; Refills: 0, kb Product Selection Permitted Signatures: Dispatcher [employer] Tracy Ortega FNP-C FNP-Chloe Acevedo, RN RN Harriet Saenz RN RN ap3
--- NOTE | 2022-10-21 12:01 | ER ---
Nurse's Notes [facility] Name: Robyn Carrion Age: 62 yrs Sex: Female : 1960 Arrival Date: 10/21/2022 Time: 10:18 Bed 20 Private MD: Diagnosis: Upper abdominal pain, unspecified Presentation: 10/21 10:26 Chief complaint: Sharp right mid back pain and nausea since last night. Reports pain is hb similar to previous pancreatitis episodes. Denies urinary s/s. Coronavirus screen: At this time, the client does not indicate any symptoms associated with coronavirus-19. Ebola Screen: No symptoms or risks identified at this time. Initial Sepsis Screen: Does the patient meet any 2 criteria? No. Patient's initial sepsis screen is negative. Does the patient have a suspected source of infection? No. Patient's initial sepsis screen is negative. Risk Assessment: Do you want to hurt yourself or someone else? Patient reports no desire to harm self or others. Onset of symptoms was October 20, 2022. 10:26 Method Of Arrival: Ambulatory 10:26 Acuity: DARA 3 hb Triage Assessment: 12:27 General: Appears uncomfortable, Behavior is calm, cooperative, appropriate for age. ap3 Pain: Complains of pain in low back area. Neuro: Level of Consciousness is awake, alert, obeys commands, Oriented to person, place, time, situation. Respiratory: Airway is patent Respiratory effort is even, unlabored, Respiratory pattern is regular, symmetrical. GI: Reports lower abdominal pain, upper abdominal pain. Historical: - Allergies: 10:28 Codeine; hb 10:28 HYDROCODONE; hb - Home Meds: 10:28 atorvastatin Oral [Active]; Carafate 1 gram Oral tab 1 tab 4 times per day [Active]; hb Creon Oral [Active]; Dicyclomine Oral [Active]; Lantus Sub-Q [Active]; lisinopril Oral [Active]; Protonix Oral [Active]; - PMHx: 10:28 fernando esophageal disease; cricopharyngeal spasm; Hernia; High Cholesterol; hb Hypertensive disorder; IDDM; Pancreatitis; vericose vein; - PSHx: 10:28 bladder prolapse SX; Cholecystectomy; colon removal; ercp; hernia repair; hysterectomy; hb polyp removed; - Immunization history:: Adult Immunizations up to date. - Social history:: Smoking status: Patient denies any tobacco usage or history of. Screenin:30 [facility] ED Fall Risk Assessment (Adult) Score/Fall Risk Level 0 - 2 = Low Risk hb Oriented to surroundings, Maintained a safe environment. Abuse screen: Denies threats or abuse. Denies injuries from another. Nutritional screening: No deficits noted. Tuberculosis screening: No symptoms or risk factors identified. Assessment: 12:28 GI: Bowel sounds present X 4 quads. Abd is non tender. ap3 Vital Signs: 10:26 BP 189 / 85; Pulse 75; Resp 16; Temp 98.2(O); Pulse Ox 100% on R/A; Weight 69.85 kg; hb Height 5 ft. 2 in. ; Pain 7/10; 10:26 Body Mass Index 28.17 (69.85 kg, 157.48 cm) hb 10:26 Pain Scale: Adult hb ED Course: 10:20 Patient arrived in ED. ts1 10:21 Harriet Saenz, HAIDER is Primary Nurse. ap3 10:27 Tracy Carrion FNP-C is PHCP. kb 10:27 Tian Stuart MD is Attending Physician. kb 10:27 Triage completed. hb 10:30 Arm band placed on. hb 10:30 Patient has correct armband on for positive identification. Provided Education on: . hb 10:37 Initial lab(s) drawn, by me. Inserted saline lock: 22 gauge in right forearm, using ap3 aseptic technique. 10:49 Urinalysis w/ reflexes Sent. ap3 10:49 Urine collected: clean catch specimen. ap3 12:28 No provider procedures requiring assistance completed. IV discontinued, intact, ap3 bleeding controlled, No redness/swelling at site. Pressure dressing applied. Administered Medications: 10:48 Drug: Ondansetron IVP 4 mg Route: IVP; Site: right forearm; ap3 12:27 Follow up: Response: No adverse reaction ap3 10:48 Drug: Famotidine IVP 20 mg Route: IVP; Site: right forearm; ap3 12:27 Follow up: Response: No adverse reaction ap3 10:48 Drug: Ketorolac IVP 15 mg Route: IVP; Site: left forearm; ap3 12:27 Follow up: Response: No adverse reaction ap3 10:49 Drug: NS 0.9% IV 1000 ml Route: IV; Rate: 1000 ml; Site: right forearm; ap3 12:27 Follow up: IV Status: Completed infusion ap3 Medication: 10:30 VIS not applicable for this client. hb Outcome: 12:00 Discharge ordered by . ayala 12:28 Discharged to home ambulatory. ap3 12:28 Condition: good 12:28 Discharge instructions given to patient, Instructed on discharge instructions, follow up and referral plans. Demonstrated understanding of instructions, follow-up care, medications, Prescriptions given X 3. 12:36 Patient left the ED. ap3 Signatures: Tracy Carrion, NEUROLOGY PHYSICIAN-C BEE-Chloe Acevedo RN RN Harriet Saenz RN RN ap3 Roro Martinez PAS PAS ts1 Corrections: (The following items were deleted from the chart) 10:30 10:26 Chief complaint: Sharp right mid back pain and nausea since last night. Reports hb pain is similar to previous pancreatitis episodes. hb
[2022-10-21 12:59] VITALS: BP 189/85; TEMP 98.2; O2SAT 100
== END 2022-10-21 12:36 | disposition home or self-care (01) ==
LOC: ER 10:18
DX: R10.10 Upper abdominal pain, unspecified (principal); R11.0 Nausea; I10 Essential (primary) hypertension; E11.9 Type 2 diabetes mellitus without complications; Z88.5 Allergy status to narcotic agent; Z79.4 Long term (current) use of insulin
CPT/HCPCS: 85025; 36415; 81003; 83690; 80053; 99284; J2405; J7030

== ENCOUNTER 2022-12-22 15:25 | Emergency (ER) | payer OTHER ==
--- OUTSIDE RECORDS SUMMARY | 2022-12-22 15:31 | XMS REPORT | Continuity of Care Document ---
:1960 Author Organization [facility] t Address [address]. [address] [place] [address] Care Team Providers Name Role Phone CONCHIS, EVETTEFERDINAND ERICH Primary Care Physician Unavailable VINNIE OGLESBY Attending Clinician Unavailable Uday Finch DO Attending Clinician [phone] [email or web address] Attending Clinician Unavailable Vinnie Oglesby MD Attending Clinician [phone] Jocelin Kimble MD Attending Clinician WILL ANTONIO D.O. Attending Clinician Unavailable CYRIL MACK M.D. Attending Clinician Unavailable VINNIE OGLESBY Admitting Clinician Unavailable [email or web address] Admitting Clinician Unavailable Payers Payer Name Policy Type Policy Number Effective Date Expiration Date Salud arevalo MEDICARE A B [id number] 2001 00:00:00 [place] [id number] 2017 00:00:00 [facility] MEDICARE [id number] COMPLETE (MEDICARE REPLACEMENT HMO) [place] [id number] [place] Problems Condition Condition Condition Status Onset [...] As [facility]-Acet Allergy Vomiting, 508 patient, Romina kes aminophe Other (See 00:00: " it Medi sarah n Comments) 00 wears on Cente r my stomach" hydrocod DA Active [facility] 00:[facility]: [facility] [place] Hydrocod Propensi Active GI Method i one ty to Intolerance 11-01 st adverse 00:00: Hospita reaction 00 l s to drug Family History Family Member Diagnosis Comments Start Date Stop Date Source Unknown Family Family history of Other [facility] Physicians Member diabetes mellitus Unknown Family Family history of Other [facility] Phys[facility] Member hypertension Unknown Family Family history of Other [facility] Physicians Member Heart problem Natural father Diabetes [facility] Natural father Hypertension [facility] Natural mother Diabetes [facility] Natural mother [facility] Natural mother Hypertension [facility] Social History Social Habit Start Date Stop Date Quantity Comments Source History of tobacco Cigarette Smoker [facility] Gender identity [facility] Sexual orientation [facility] Hospital History SDOH [facility] Alcohol Std Drinks Medica l Center History SDOH [facility] Alcohol Binge Medical [place] [address] History of Social 2022-10-31 2022-10-[address] function 00:00:00 00:00:00 Hospital Exposure to 2022-01-23 2022-02-[address] [facility] SARS-CoV-2 (event) 00:00:00 11:41:00 Medica l Center Alcohol intake 2022-02-02 2022-02-02 [facility] (finding) Cigarettes smoked 2022-02-01 2022-02-[address] [facility] current (pack per 00:00:00 00:00:00 Medical Center day) - Reported Cigarette 2022-02-01 2022-02-[address] [facility] pack-years 00:00:00 00:00:00 [facility] Tobacco use and 2022-02-01 2022-02-[address] [facility] [facility] exposure 00:00:00 00:00:00 tobacco non-user [facility] Alcohol Comment 2019-11-17 2019-11-[address] [facility] 00:00:00 00:00:00 [facility] Tobacco Comment 2019-08-15 2019-08-15 quit [address] [facility] 00:00:00 00:00:00 [facility] History SDOH 2019-08-15 2019-08-[address] [facility] Alcohol Frequency 00:00:00 00:00:00 [facility] Sex Assigned At [address] [facility] 00:00:00 00:00:00 [facility] Smoking Status Start Date Stop Date Source Ex-smoker 2022-02-01 00:00:00 2022-02-01 00:00:[address] [facility] Never smoked tobacco [facility] Medications Ordered Filled Start Stop Current Ordering Indication Dosage Frequency Signature Comments Components Source Medication Medication Date Date Medication? Clinician (SIG) Name Name methocarbam Yes 500mg [id number] Take 1-2 Methodi oL 7-[id number] (ROBAXIN) 00:00: 3D (500-1,000 Ho spita 500 MG 00 mg total) l tablet by mouth 3 (three) times a day as needed for muscle spasms. traMADol-ac Yes [id number] 1{tbl} Q6H Take 1-2 Methodi etaminophen 7-[address] (Ultracet) 00:00: mouth Hospit a 37.5-325 mg 00 every 6 l per tablet (six) hours as needed for moderate pain .acute pain. traMADol-ac 2022- No [id number] 1{tbl} Q6H Take 1-2 Methodi etaminophen 7-25 07-25 tablets by s t (Ultracet) 00:00: 00:00 mouth Hospi ta 37.5-325 mg 00 :00 every 6 l per tablet (six) hours as needed for moderate pain .acute pain. atorvastati 2021-04 Yes 40mg QD Take 40 [...] daily as needed . lipase/prot 2021-04 Yes [id number] Q.[id number] Take [facility] 0-27 [id number] 36,000 [facility] e (CREON 14:58: 3D Units [...] St e (AMITIZA) 0-27 by mouth 2 Romian kes 8 MCG 14:58: (two) Medical capsule 49 times Center daily as needed . lipase/prot 2021-04 Yes [id number] Q.[id number] Take [facility] 0-27 [id number] 36,000 [facility] (CREON 14:58: 3D Units [...] daily as needed . lipase/prot 2021-04 Yes [id number] Q.[id number] Take [facility] 0-27 [id number] 36,000 [facility] e (CREON 14:58: 3D Units [...] daily Medica l MG tablet 49 Night. [place] lubiproston 2021-04 Yes 8ug Take [address] e (AMITIZA) 0-27 by mouth 2 Romina kes 8 MCG 14:58: (two) Medical capsule 49 times Center daily as needed . lipase/prot 2021-04 Yes [id number] Q.[id number] Take [facility] 0-27 [id number] 36,000 [facility] e (CREON 14:58: 3D Units [...] daily as needed . lipase/prot 2021-04 Yes [id number] Q.[id number] [facility] 0-27 [id number] 36,000 [facility] e (CREON 14:58: 3D Units [...] daily as needed . lipase/prot 2021-04 Yes [id number] Q.[id number] Take [facility] 0-27 [id number] 36,000 [facility] (CREON 14:58: 3D Units [...] daily as needed . lipase/prot 2021-04 Yes [id number] Q.[id number] Take [facility] 0-27 [id number] 36,000 [facility] e (CREON 14:58: 3D Units [...] daily as needed . lipase/prot 2021-04 Yes [id number] Q.[id number] [facility] 0-27 [id number] 36,000 [facility] (CREON 14:58: 3D Units [...] :00 (six) Center hours. lipase/prot 2021-04 Yes [id number] Q.[id number] [facility] 0-26 [id number] 36,000 [facility] e (CREON 09:59: 3D Units [...] daily Medica l MG tablet 15 Night. [place] lubiproston 2021-04 Yes 8ug Take [address] e (AMITIZA) 0-26 by mouth 2 Romina kes 8 MCG 09:59: (two) Medical capsule 15 times Center daily as needed . atorvastati Yes 40mg QD Take [address] n (LIPITOR) 8-12 by mouth Luke s 40 MG 13:03: daily. Medical tablet 21 [place] dicyclomine Yes 20mg Take 20 mg [facility] [...] daily as needed . lipase/prot 2020-0 Yes [id number] Q.[id number] [facility] 8-12 [id number] [facility] (CREON 13:03: 3D Units [...] daily as needed . lipase/prot 2020-0 Yes [id number] Q.[id number] [facility] 8-12 [id number] [facility] (CREON 13:03: 3D Units [...] 157.5 cm WEIGHT 2019-08-13 00:00:00 70.716 kg Body temperature 2022-10-31 07:11:00 36.61 Alysia [facility] Systolic blood 2022-10-31 06:00:00 119 mm[Hg] [facility] pressure Diastolic blood 2022-10-31 06:00:00 57 mm[Hg] [facility] pressure Heart rate 2022-10-31 06:00:00 75 /min [facility] Respiratory rate 2022-10-31 06:00:00 16 /min [facility] Oxygen saturation in 2022-10-31 06:00:00 97 /min [facility] Arterial blood by Pulse oximetry Body height 2022-10-31 04:33:00 162.6 cm [facility] Body weight 2022-10-31 04:33:00 69.854 kg [facility] BMI 2022-10-31 04:33:00 26.43 kg/m2 [facility] Systolic blood 2022-02-02 14:30:00 158 mm[Hg] [facility] Diastolic blood 2022-02-02 14:30:00 66 mm[Hg] [facility] Heart rate 2022-02-02 14:30:00 60 /min [facility] Body temperature 2022-02-02 14:30:00 36.44 Alysia [facility] Respiratory rate 2022-02-02 14:30:00 18 /min [facility] Oxygen saturation in 2022-02-02 14:30:00 100 /min [facility] Arterial blood by Medical Ce nter Pulse oximetry Body height 2022-02-02 11:25:00 157.5 cm [facility] Body weight 2022-02-02 11:25:00 68.448 kg [facility] BMI 2022-02-02 11:25:00 27.60 kg/m2 [facility] Body height 2022-02-01 10:01:00 157.5 cm [facility] Body weight 2022-02-01 10:01:00 69.4 kg [facility] BMI 2022-02-01 10:01:00 27.98 kg/m2 [facility] Height 2018-05-24 10:25:00 62 [in_us] [facility] Weight 2018-05-24 10:25:00 154.9 [lb_av] [facility] Body [facility] Index 2018-05-24 10:25:00 28.33 kg/m2 [facility] Calculated BP Systolic 2018-04-26 10:21:00 127 mm[Hg] [facility] BP Diastolic 2018-04-26 10:21:00 76 mm[Hg] [facility] Height 2018-04-26 10:21:00 62 [in_us] [facility] Weight 2018-04-26 10:21:00 155.6 [lb_av] [facility] Body Mass Index 2018-04-26 10:21:00 28.46 kg/m2 [facility] Calculated Temperature 2018-04-26 10:21:00 97 [degF] [facility] Heart Rate 2018-04-26 10:21:00 73 /min [facility] Procedures Procedure Date / Time Performing Source Performed Clinician CT LUMBAR SPINE WO CONTRAST 2022-10-31 Henrique Carranza [facility] 05:18:55 Hospital XR CHEST 1 VW PORTABLE 2022-10-31 Henrique Carranza t 05:11:24 Hospital CBC WITH PLATELET AND DIFFERENTIAL 2022-10-31 Thelma Carranza 04:54:00 Hospital ALCOHOL LEVEL, BLOOD 2022-10-31 Henrique Carranza 04:54:00 Hospital COMPREHENSIVE METABOLIC PANEL 2022-10-31 Henrique Carranza ethodist 04:54:00 Hospital ESTIMATED GFR 2022-10-31 Henrique Carranza 04:54:00 Hospital REPORT OF PROCEDURE - ENDOSCOPY 2022-02-[address] [facility] URL 14:02:35 [facility] POCT-GLUCOSE METER 2022-02-[address] [facility] 13:48:00 [facility] TISSUE EXAM 2022-02-[address] [facility] 13:28:00 [facility] ESOPHAGOGASTRODUODENOSCOPY, WITH 2022-02-02 [facility] SUBMUCOSAL INJECTION 13:00:00 [facility] ter ESOPHAGOGASTRODUODENOSCOPY, WITH 2022-02-[address] [facility] ENDOSCOPIC US 13:00:00 [facility] ESOPHAGOGASTRODUODENOSCOPY 2022-02-02 [facility] 13:00:00 [facility] ULTRASOUND, UPPER [facility] TRA[facility] END[facility], WITH FINE NEEDLE 13:00:00 [facility] ASPIRATION EGD, WITH ENDOSCOPIC MUCOSAL 2022-02-[address] [facility] RESECTION 13:00:00 [facility] POCT-GLUCOSE METER [facility]02-[facility] 12:05:00 [facility] Plan of Care Planned Activity Planned Date Details Comments Source Future Scheduled 2023-02-[address] [facility] Test 00:00:00 Counseling and Screening [facility] (12+) [code = Tobacco Cessation Counseling and Screening (12+)] Future Scheduled 2023-02-[address] [facility] Test 00:00:00 Counseling and Screening [facility] (12+) [code = Tobacco Cessation Counseling and Screening (12+)] Future Scheduled 2023-02-[address] [facility] Test 00:00:00 Counseling and Screening [facility] (12+) [code = Tobacco Cessation Counseling and Screening (12+)] Future Scheduled 2023-02-[address] [facility] Test 00:00:00 Counseling and Screening Med ical Center (12+) [code = Tobacco Cessation Counseling and Screening (12+)] Future Scheduled 2022-12-10 Screening for malignant [facility] 09:16:03 neoplasm of colon Hospital (procedure) [code = 278426697] Future Scheduled 2022-12-10 Screening for malignant [facility] 09:16:03 neoplasm of colon Hospital (procedure) [code = 304784154] Future Scheduled 2022-12-10 Screening for malignant [facility] 09:16:03 neoplasm of colon Hospital (procedure) [code = 080780794] Future Scheduled 2022-12-10 COVID-19 VACCINE (#1) [facility] Test 09:16:03 [code = COVID-19 VACCINE Hos pital (#1)] Future Scheduled 2022-12-10 Hepatitis C screening [facility] Test 09:16:03 (procedure) [code = Hospital 876099110] Future Scheduled 2022-12-10 Screening for malignant [facility] 09:16:03 neoplasm of cervix Hospital (procedure) [code = 189271466] Future Scheduled 2022-12-10 BREAST CANCER SCREENING [facility] 09:16:03 [code = BREAST CANCER Hospit al SCREENING] Future Scheduled 2022-12-10 Screening for malignant [facility] 09:16:03 neoplasm of colon Hospital (procedure) [code = 835965564] Future Scheduled 2022-12-10 Screening for malignant [facility] 09:16:03 neoplasm of colon Hospital (procedure) [code = 025596357] Future Scheduled 2022-12-10 SHINGLES VACCINES (1 of [facility] 09:16:03 2) [code = SHINGLES Hospital VACCINES (1 of 2)] Future Scheduled 2022-12-10 INFLUENZA VACCINE (#1) [facility] Test 09:16:03 [code = INFLUENZA VACCINE Ho spital (#1)] Future Scheduled 2022-12-08 Influenza Vaccine (#1[facility] 00:[facility]00 [code = Influenza Vaccine Me dical Center (#1)] Future Scheduled 2022-12-08 Influenza Vaccine (#1) [facility] 00:00:00 [code = Influenza Vaccine Me dical Center (#1)] Future Scheduled 2022-09-28 SHINGLES VACCINES (1 of [facility] 10:21:04 2) [code = SHINGLES Hospital VACCINES (1 of 2)] Future Scheduled 2022-09-28 INFLUENZA VACCINE [code = [facility] 10:21:04 INFLUENZA VACCINE] Hospital Future Scheduled 2022-09-28 Screening for malignant [facility] 10:21:04 neoplasm of colon Hospital (procedure) [code = 364283438] Future Scheduled 2022-09-28 Screening for malignant [facility] 10:21:04 neoplasm of colon Hospital (procedure) [code = 212793367] Future Scheduled 2022-09-28 Screening for malignant [facility] 10:21:04 neoplasm of colon Hospital (procedure) [code = 031126418] Future Scheduled 2022-09-28 COVID-19 VACCINE (#1) [facility] 10:21:04 [code = COVID-19 VACCINE Hos pital (#1)] Future Scheduled 2022-09-28 Screening for malignant [facility] 10:21:04 neoplasm of cervix Hospital (procedure) [code = 760453442] Future Scheduled 2022-09-28 BREAST CANCER SCREENING [facility] 10:21:04 [code = BREAST CANCER Hospit al SCREENING] Future Scheduled 2022-09-28 Screening for malignant [facility] 10:21:04 neoplasm of colon Hospital (procedure) [code = 966378981] Future Scheduled 2022-09-28 Screening for malignant [facility] 10:21:04 neoplasm of colon Hospital (procedure) [code = 422145896] Future Scheduled 2022-04-[address] [facility] Test 00:00:00 (12+) [code = DEPRESSION Med ical Center SCREENING (12+)] Future Scheduled 2022-04-[address] [facility] Test 00:00:00 (12+) [code = DEPRESSION Med ical Center SCREENING (12+)] Future Scheduled 2022-04-[address] [facility] Test 00:00:00 (12+) [code = DEPRESSION Med ical Center SCREENING (12+)] Future Scheduled 2022-03-30 COVID-19 VACCINE (#1) [facility] 14:02:36 [code = COVID-19 VACCINE Hos pital (#1)] Future Scheduled 2022-03-30 Screening for malignant [facility] 14:02:36 neoplasm of cervix Hospital (procedure) [code = 589675113] Future Scheduled 2022-03-30 BREAST CANCER SCREENING [facility] 14:02:36 [code = BREAST CANCER Hospit al SCREENING] Future Scheduled 2022-03-30 COLONOSCOPY SCREENING [facility] 14:02:36 [code = COLONOSCOPY Hospital SCREENING] Future Scheduled 2022-03-30 SHINGLES VACCINES (1 of [facility] 14:02:36 2) [code = SHINGLES Hospital VACCINES (1 of 2)] Future Scheduled 2022-03-30 INFLUENZA VACCINE [code = [facility] 14:02:36 INFLUENZA VACCINE] Hospital Future Scheduled 2022-02-09 HEPATITIS B VACCINES (1 [facility] 15:54:46 of 3 - 3-dose series) Hospit al [code = HEPATITIS B VACCINES (1 of 3 - 3-dose series)] Future Scheduled 2022-02-09 COVID-19 VACCINE (#1) [facility] 15:54:46 [code = COVID-19 VACCINE Hos pital (#1)] Future Scheduled 2022-02-09 Screening for malignant [facility] 15:54:46 neoplasm of cervix Hospital (procedure) [code = 398818669] Future Scheduled 2022-02-09 BREAST CANCER SCREENING [facility] 15:54:46 [code = BREAST CANCER Hospit al SCREENING] Future Scheduled 2022-02-09 COLONOSCOPY SCREENING [facility] 15:54:46 [code = COLONOSCOPY Hospital SCREENING] Future Scheduled 2022-02-09 SHINGLES VACCINES (1 of [facility] 15:54:46 2) [code = SHINGLES Hospital VACCINES (1 of 2)] Future Scheduled 2022-02-09 INFLUENZA VACCINE [code = [facility] 15:54:46 INFLUENZA VACCINE] Hospital Future Scheduled 2022-02-09 HEPATITIS B VACCINES (1 [facility] 15:54:46 of 3 - 3-dose series) Hospit al [code = HEPATITIS B VACCINES (1 of 3 - 3-dose series)] Future Scheduled 2022-02-09 COVID-19 VACCINE (#1) [facility] 15:54:46 [code = COVID-19 VACCINE Hos pital (#1)] Future Scheduled 2022-02-09 Screening for malignant [facility] 15:54:46 neoplasm of cervix Hospital (procedure) [code = 663420078] Future Scheduled 2022-02-09 BREAST CANCER SCREENING [facility] 15:54:46 [code = BREAST CANCER Hospit al SCREENING] Future Scheduled 2022-02-09 COLONOSCOPY SCREENING [facility] 15:54:46 [code = COLONOSCOPY Hospital SCREENING] Future Scheduled 2022-02-09 SHINGLES VACCINES (1 of [facility] 15:54:46 2) [code = SHINGLES Hospital VACCINES (1 of 2)] Future Scheduled 2022-02-09 INFLUENZA VACCINE [code = [facility] 15:54:46 INFLUENZA VACCINE] Hospital Future Scheduled 2022-02-09 HEPATITIS B VACCINES (1 [facility] 15:54:46 of 3 - 3-dose series) Hospit al [code = HEPATITIS B VACCINES (1 of 3 - 3-dose series)] Future Scheduled 2022-02-09 COVID-19 VACCINE (#1) [facility] 15:54:46 [code = COVID-19 VACCINE Hos pital (#1)] Future Scheduled 2022-02-09 Screening for malignant [facility] 15:54:46 neoplasm of cervix Hospital (procedure) [code = 423930956] Future Scheduled 2022-02-09 BREAST CANCER SCREENING [facility] 15:54:46 [code = BREAST CANCER Hospit al SCREENING] Future Scheduled 2022-02-09 COLONOSCOPY SCREENING [facility] 15:54:46 [code = COLONOSCOPY Hospital SCREENING] Future Scheduled 2022-02-09 SHINGLES VACCINES (1 of [facility] 15:54:46 2) [code = SHINGLES Hospital VACCINES (1 of 2)] Future Scheduled 2022-02-09 INFLUENZA VACCINE [code = [facility] 15:54:46 INFLUENZA VACCINE] Hospital Future Scheduled 2022-02-06 HEPATITIS B VACCINES (1 [facility] 13:59:44 of 3 - 3-dose series) Hospit al [code = HEPATITIS B VACCINES (1 of 3 - 3-dose series)] Future Scheduled 2022-02-06 COVID-19 VACCINE (#1) [facility] 13:59:44 [code = COVID-19 VACCINE Hos pital (#1)] Future Scheduled 2022-02-06 Screening for malignant [facility] 13:59:44 neoplasm of cervix Hospital (procedure) [code = 760646977] Future Scheduled 2022-02-06 BREAST CANCER SCREENING [facility] 13:59:44 [code = BREAST CANCER Hospit al SCREENING] Future Scheduled 2022-02-06 COLONOSCOPY SCREENING [facility] 13:59:44 [code = COLONOSCOPY Hospital SCREENING] Future Scheduled 2022-02-06 SHINGLES VACCINES (1 of [facility] 13:59:44 2) [code = SHINGLES Hospital VACCINES (1 of 2)] Future Scheduled 2022-02-06 INFLUENZA VACCINE [code = [facility] 13:59:44 INFLUENZA VACCINE] Hospital Future Scheduled 2022-02-06 HEPATITIS B VACCINES (1 [facility] 13:59:44 of 3 - 3-dose series) Hospit al [code = HEPATITIS B VACCINES (1 of 3 - 3-dose series)] Future Scheduled 2022-02-06 COVID-19 VACCINE (#1) [facility] 13:59:44 [code = COVID-19 VACCINE Hos pital (#1)] Future Scheduled 2022-02-06 Screening for malignant [facility] 13:59:44 neoplasm of cervix Hospital (procedure) [code = 196861708] Future Scheduled 2022-02-06 BREAST CANCER SCREENING [facility] 13:59:44 [code = BREAST CANCER Hospit al SCREENING] Future Scheduled 2022-02-06 COLONOSCOPY SCREENING [facility] 13:59:44 [code = COLONOSCOPY Hospital SCREENING] Future Scheduled 2022-02-06 SHINGLES VACCINES (1 of [facility] 13:59:44 2) [code = SHINGLES Hospital VACCINES (1 of 2)] Future Scheduled 2022-02-06 INFLUENZA VACCINE [code = [facility] 13:59:44 INFLUENZA VACCINE] Hospital Future Scheduled 2022-01-12 HEPATITIS B VACCINES (1 [facility] 15:05:35 of 3 - 3-dose series) Hospit al [code = HEPATITIS B VACCINES (1 of 3 - 3-dose series)] Future Scheduled 2022-01-12 COVID-19 VACCINE (#1) [facility] 15:05:35 [code = COVID-19 VACCINE Hos pital (#1)] Future Scheduled 2022-01-12 Screening for malignant [facility] 15:05:35 neoplasm of cervix Hospital (procedure) [code = 534281698] Future Scheduled 2022-01-12 BREAST CANCER SCREENING [facility] 15:05:35 [code = BREAST CANCER Hospit al SCREENING] Future Scheduled 2022-01-12 COLONOSCOPY SCREENING [facility] 15:05:35 [code = COLONOSCOPY Hospital SCREENING] Future Scheduled 2022-01-12 SHINGLES VACCINES (1 of [facility] 15:05:35 2) [code = SHINGLES Hospital VACCINES (1 of 2)] Future Scheduled 2022-01-12 INFLUENZA VACCINE [code = [facility] 15:05:35 INFLUENZA VACCINE] Hospital Future Scheduled 2022-01-12 HEPATITIS B VACCINES (1 [facility] 15:05:35 of 3 - 3-dose series) Hospit al [code = HEPATITIS B VACCINES (1 of 3 - 3-dose series)] Future Scheduled 2022-01-12 COVID-19 VACCINE (#1) [facility] 15:05:35 [code = COVID-19 VACCINE Hos pital (#1)] Future Scheduled 2022-01-12 Screening for malignant [facility] 15:05:35 neoplasm of cervix Hospital (procedure) [code = 619738009] Future Scheduled 2022-01-12 BREAST CANCER SCREENING [facility] 15:05:35 [code = BREAST CANCER Hospit al SCREENING] Future Scheduled 2022-01-12 COLONOSCOPY SCREENING [facility] 15:05:35 [code = COLONOSCOPY Hospital SCREENING] Future Scheduled 2022-01-12 SHINGLES VACCINES (1 of [facility] 15:05:35 2) [code = SHINGLES Hospital VACCINES (1 of 2)] Future Scheduled 2022-01-12 INFLUENZA VACCINE [code = [facility] 15:05:35 INFLUENZA VACCINE] Hospital Future Scheduled 2021-12-08 INFLUENZA VACCINE (#1[facility] [code = INFLUENZA VACCINE Me dical Center (#1)] Future Scheduled 2021-12-08 INFLUENZA VACCINE (#1) [facility] 00:00:00 [code = INFLUENZA VACCINE Me dical Center (#1)] Future Scheduled 2021-12-08 INFLUENZA VACCINE (#1) [facility] 00:00:00 [code = INFLUENZA VACCINE Me dical Center (#1)] Future Scheduled 2021-12-08 INFLUENZA VACCINE (#1) [facility] 00:00:00 [code = INFLUENZA VACCINE Me dical Center (#1)] Future Scheduled 2021-12-08 INFLUENZA VACCINE (#1) [facility] 00:00:00 [code = INFLUENZA VACCINE Me dical Center (#1)] Future Scheduled 2021-12-08 INFLUENZA VACCINE (#1) [facility] 00:00:00 [code = INFLUENZA VACCINE Me dical Center (#1)] Future Scheduled 2021-12-08 INFLUENZA VACCINE (#1) [facility] 00:00:00 [code = INFLUENZA VACCINE Me dical Center (#1)] Future Scheduled 2021-12-08 INFLUENZA VACCINE (#1) [facility] 00:00:00 [code = INFLUENZA VACCINE Me dical Center (#1)] Future Scheduled 2021-04-[address] [facility] Test 00:00:00 (12+) [code = DEPRESSION Med ical Center SCREENING (12+)] Future Scheduled 2021-04-[address] [facility] Test 00:00:00 (12+) [code = DEPRESSION Med ical Center SCREENING (12+)] Future Scheduled 2021-04-[address] [facility] Test 00:00:00 (12+) [code = DEPRESSION Med ical Center SCREENING (12+)] Future Scheduled 2021-04-[address] [facility] Test 00:00:00 (12+) [code = DEPRESSION Med ical Center SCREENING (12+)] Future Scheduled 2021-04-[address] [facility] Test 00:00:00 (12+) [code = DEPRESSION Med ical Center SCREENING (12+)] Future Scheduled 2021-04-[address] [facility] Test 00:00:00 (12+) [code = DEPRESSION Med ical Center SCREENING (12+)] Future Scheduled 2021-04-[address] [facility] 00:00:00 (12+) [code = DEPRESSION Med ical Center SCREENING (12+)] Future Scheduled 2020-12-08 INFLUENZA VACCINE (Season [facility] 00:00:00 Ended) [code = INFLUENZA Med ical Center VACCINE (Season Ended)] Future Scheduled 2020-04-[address] [facility] 00:00:00 (12+) [code = DEPRESSION Med ical Center SCREENING (12+)] Future Scheduled 2008 SHINGLES VACCINES [...] [facility] 00:00:00 [code = [id number]] Medical Ce nter Future Scheduled 2003-09-07 Lipid panel (procedure) [facility] 00:00:00 [code = [id number]] Medical Ce nter Future Scheduled 2003-09-07 Lipid panel (procedure) [facility] 00:00:00 [code = 25875893] Medical Ce nter Future Scheduled 2003-09-07 Lipid panel (procedure) [facility] 00:00:00 [code = 64932673] Medical Ce nter Future Scheduled 2003-09-07 Lipid panel (procedure) [facility] 00:00:00 [code = 73176187] Medical Ce nter Future Scheduled 2003-09-07 Lipid panel (procedure) [facility] 00:00:00 [code = 81895566] Medical Ce nter Future Scheduled 2003-09-07 Lipid panel (procedure) [facility] 00:00:00 [code = 04936119] Medical Ce nter Future Scheduled 2003-09-07 Lipid panel (procedure) [facility] 00:00:00 [code = 89138693] Medical Ce nter Future Scheduled 2003-09-07 Lipid panel (procedure) [facility] 00:00:00 [code = 46735465] Medical Ce nter Future Scheduled 2003-09-07 Lipid panel (procedure) [facility] 00:00:00 [code = 68501835] Medical Ce nter Future Scheduled 2003-09-07 Lipid panel (procedure) [facility] 00:00:00 [code = 51852029] Medical Ce nter Future Scheduled 2002-10-08 MEDICARE ANNUAL WELLNESS [facility] 00:00:00 (YEAR 2 or FIRST YEAR if Med ical Center no IPPE) [code = MEDICARE ANNUAL WELLNESS (YEAR 2 or FIRST YEAR if no IPPE)] Future Scheduled 2002-10-08 MEDICARE ANNUAL WELLNESS [facility] 00:00:00 (YEAR 2 or FIRST YEAR if Med ical Center no IPPE) [code = MEDICARE ANNUAL WELLNESS (YEAR 2 or FIRST YEAR if no IPPE)] Future Scheduled 2002-10-08 MEDICARE ANNUAL WELLNESS [facility] 00:00:00 (YEAR 2 or FIRST YEAR if Med ical Center no IPPE) [code = MEDICARE ANNUAL WELLNESS (YEAR 2 or FIRST YEAR if no IPPE)] Future Scheduled 2002-10-08 MEDIC[address] ANNUAL WELLNESS [facility] 00:00:00 (YEAR 2 or FIRST YEAR if Med ical Center no IPPE) [code = MEDICARE ANNUAL WELLNESS (YEAR 2 or FIRST YEAR if no IPPE)] Future Scheduled 2002-10-08 MED[address] ANNUAL WELLNESS [facility] 00:00:00 (YEAR 2 or FIRST YEAR if Med ical Center no IPPE) [code = MEDICARE ANNUAL WELLNESS (YEAR 2 or FIRST YEAR if no IPPE)] Future Scheduled 2002-10-08 MEDIC[address] ANNUAL WELLNESS [facility] 00:00:00 (YEAR 2 or FIRST YEAR if Med ical Center no IPPE) [code = MEDICARE ANNUAL WELLNESS (YEAR 2 or FIRST YEAR if no IPPE)] Future Scheduled 2002-10-08 MEDIC[address] ANNUAL WELLNESS [facility] 00:00:00 (YEAR 2 or FIRST YEAR if Med ical Center no IPPE) [code = MEDICARE ANNUAL WELLNESS (YEAR 2 or FIRST YEAR if no IPPE)] Future Scheduled 2002-10-08 MEDIC[address] ANNUAL WELLNESS [facility] 00:00:00 (YEAR 2 or FIRST YEAR if Med ical Center no IPPE) [code = MEDICARE ANNUAL WELLNESS (YEAR 2 or FIRST YEAR if no IPPE)] Future Scheduled 2002-10-08 MED[address] ANNUAL WELLNESS [facility] 00:00:00 (YEAR 2 or FIRST YEAR if Med ical Center no IPPE) [code = MEDICARE ANNUAL WELLNESS (YEAR 2 or FIRST YEAR if no IPPE)] Future Scheduled 2002-10-08 MEDIC[address] ANNUAL WELLNESS [facility] 00:00:00 (YEAR 2 or FIRST YEAR if Med ical Center no IPPE) [code = MEDICARE ANNUAL WELLNESS (YEAR 2 or FIRST YEAR if no IPPE)] Future Scheduled 2002-10-08 MED[address]NUAL WELLNESS [facility] 00:00:00 (YEAR 2 or FIRST YEAR if Med ical Center no IPPE) [code = MEDICARE ANNUAL WELLNESS (YEAR 2 or FIRST YEAR if no IPPE)] Future Scheduled 1979-09-07 Screening for malignant [facility] 00:00:00 neoplasm of cervix Medical C enter (procedure) [code = 376179660] Future Scheduled 1979-09-07 Screening for malignant [facility] 00:00:00 neoplasm of cervix Medical C enter (procedure) [code = 741402991] Future Scheduled 1979-09-07 Screening for malignant [facility] 00:00:00 neoplasm of cervix Medical C enter (procedure) [code = 090185994] Future Scheduled 1979-09-07 Screening for malignant [facility] 00:00:00 neoplasm of cervix Medical C enter (procedure) [code = 011672057] Future Scheduled 1979-09-07 Screening for malignant [facility] 00:00:00 neoplasm of cervix Medical C enter (procedure) [code = 921326871] Future Scheduled 1979-09-07 Screening for malignant [facility] 00:00:00 neoplasm of cervix Medical C enter (procedure) [code = 292453700] Future Scheduled 1979-09-07 Screening for malignant [facility] 00:00:00 neoplasm of cervix Medical C enter (procedure) [code = 945614356] Future Scheduled 1979-09-07 Screening for malignant [facility] 00:00:00 neoplasm of cervix Medical C enter (procedure) [code = 498710336] Future Scheduled 1979-09-07 Screening for malignant [facility] 00:00:00 neoplasm of cervix Medical C enter (procedure) [code = 981410624] Future Scheduled 1979-09-07 Screening for malignant [facility] 00:00:00 neoplasm of cervix Medical C enter (procedure) [code = 595477419] Future Scheduled 1979-09-07 Screening for malignant [facility] 00:00:00 neoplasm of cervix Medical C enter (procedure) [code = 640764443] Future Scheduled 1977 DTAP/TDAP/TD VACCINES ([address] [facility] 00:00:00 - Tdap) [code = Medical Cent er DTAP/TDAP/TD VACCINES (1 - Tdap)] Future Scheduled 1977 DTAP/TDAP/TD VACCINES ([address] [facility] 00:00:00 - Tdap) [code = Medical Cent er DTAP/TDAP/TD VACCINES (1 - Tdap)] Future Scheduled 1977 DTAP/TDAP/TD VACCINES ([address] [facility] 00:00:00 - Tdap) [code = Medical Cent er DTAP/TDAP/TD VACCINES (1 - Tdap)] Future Scheduled 1977 DTAP/TDAP/TD VACCINES ([address] [facility] 00:00:00 - Tdap) [code = Medical Cent er DTAP/TDAP/TD VACCINES (1 - Tdap)] Future Scheduled 1977 DTAP/TDAP/TD VACCINES ([address] [facility] 00:00:00 - Tdap) [code = Medical Cent er DTAP/TDAP/TD VACCINES (1 - Tdap)] Future Scheduled 1977 DTAP/TDAP/TD VACCINES ([address] [facility] 00:00:00 - Tdap) [code = Medical Cent er DTAP/TDAP/TD VACCINES (1 - Tdap)] Future Scheduled 1977 DTAP/TDAP/TD VACCINES ([address] [facility] 00:00:00 - Tdap) [code = Medical Cent er DTAP/TDAP/TD VACCINES (1 - Tdap)] Future Scheduled 1977 DTAP/TDAP/TD VACCINES ([address] [facility] 00:00:00 - Tdap) [code = Medical Cent er DTAP/TDAP/TD VACCINES (1 - Tdap)] Future Scheduled 1977 DTAP/TDAP/TD VACCINES ([address] [facility] 00:00:00 - Tdap) [code = Medical Cent er DTAP/TDAP/TD VACCINES (1 - Tdap)] Future Scheduled 1977 DTAP/TDAP/TD VACCINES ([address] [facility] 00:00:00 - Tdap) [code = Medical Cent er DTAP/TDAP/TD VACCINES (1 - Tdap)] Future Scheduled 1977 DTAP/TDAP/TD VACCINES ([address] [facility] 00:00:00 - Tdap) [code = Medical Cent er DTAP/TDAP/TD VACCINES (1 - Tdap)] Future Scheduled [...] HEPATITIS C Medical Center SCREENING] Future Scheduled [address] [facility]00 virus screening Medical Cent er (procedure) [code = 958854701] Future Scheduled 1970 COVID-19 VACCINE (1) [facility] 00:00:00 [code = COVID-19 VACCINE Med ical Center (1)] Future Scheduled 1959-03-08 COVID-19 VACCINE (#1[facility] [code = COVID-19 VACCINE Med ical Center (#1)] Future Scheduled 1959-03-08 COVID-19 VACCINE (#1) [facility] [code = COVID-19 VACCINE Med ical Center (#1)] Future Scheduled 1959-03-08 COVID-19 VACCINE (#1) [facility]:00 [code = COVID-19 VACCINE Med ical Center (#1)] Future Scheduled 1959-03-08 COVID-19 VACCINE (#1) [facility]:00 [code = COVID-19 VACCINE Med ical Center (#1)] Future Scheduled 1959-03-08 COVID-19 VACCINE (#1) [facility]:00 [code = COVID-19 VACCINE Med ical Center (#1)] Future Scheduled 1959-03-08 COVID-19 VACCINE (#1) [facility] 00:[facility]:00 [code = COVID-19 VACCINE Med ical Center (#1)] Future Scheduled 1959-03-08 COVID-19 VACCINE (#1) [facility] 00:00:00 [code = COVID-19 VACCINE Med ical Center (#1)] Future Scheduled 1959-03-08 COVID-19 VACCINE (#1) [facility] 00:00:00 [code = COVID-19 VACCINE Med ical Center (#1)] Future Scheduled 1959-03-08 COVID-19 VACCINE (#1) [facility]:00 [code = COVID-19 VACCINE Med ical Center (#1)] Future Scheduled 1959-03-08 COVID-19 VACCINE (#1) [facility] [code = COVID-19 VACCINE Med ical Center (#1)] Future Scheduled 1958 Screening for malignant [facility] 00:00:00 neoplasm of breast Medical C enter (procedure) [code = 448975680] Future Scheduled 1958 CT Colonography (combo) [facility] 00:00:00 [code = CT Colonography [facility] (combo)] Future Scheduled 1958 Screening for malignant [facility] 00:00:00 neoplasm of colon Medical Ce nter (procedure) [code = 675296360] Future Scheduled 1958 Screening for malignant [facility] 00:00:00 neoplasm of colon Medical Ce nter (procedure) [code = 887271503] Future Scheduled 1958 Screening for malignant [facility] 00:00:00 neoplasm of colon Medical Ce nter (procedure) [code = 651815196] Future Scheduled 1958 Screening for malignant [facility] 00:00:00 neoplasm of colon Medical Ce nter (procedure) [code = 598890290] Future Scheduled 1958 Sigmoidoscopy [code = [facility]] [facility] Future Scheduled 1958 Screening for malignant [facility] 00:00:00 neoplasm of breast Medical C enter (procedure) [code = 061995407] Future Scheduled 1958 CT Colonography (combo) [facility] 00:00:00 [code = CT Colonography [facility] (combo)] Future Scheduled 1958 Screening for malignant [facility] 00:00:00 neoplasm of colon Medical Ce nter (procedure) [code = 577422394] Future Scheduled 1958 Screening for malignant [facility] 00:00:00 neoplasm of colon Medical Ce nter (procedure) [code = 336556417] Future Scheduled 1958 Screening for malignant [facility] 00:00:00 neoplasm of colon Medical Ce nter (procedure) [code = 355971226] Future Scheduled 1958 Screening for malignant [facility] 00:00:00 neoplasm of colon Medical Ce nter (procedure) [code = 842719967] Future Scheduled 1958 Sigmoidoscopy [code = [facility]] Medical Cent[facility] r Future Scheduled 1958 Screening for malignant [facility] 00:00:00 neoplasm of breast Medical C enter (procedure) [code = 907575628] Future Scheduled 1958 Screening for malignant [facility] 00:00:00 neoplasm of breast Medical C enter (procedure) [code = 864881674] Future Scheduled 1958 CT Colonography (combo) [facility] 00:00:00 [code = CT Colonography [facility] (combo)] Future Scheduled 1958 Screening for malignant [facility] 00:00:00 neoplasm of colon Medical Ce nter (procedure) [code = 376651163] Future Scheduled 1958 Screening for malignant [facility] 00:00:00 neoplasm of colon Medical Ce nter (procedure) [code = 231460333] Future Scheduled 1958 Screening for malignant [facility] 00:00:00 neoplasm of colon Medical Ce nter (procedure) [code = 645499789] Future Scheduled 1958 Screening for malignant [facility] 00:00:00 neoplasm of colon Medical Ce nter (procedure) [code = 059791157] Future Scheduled 1958 Screening for malignant [facility] 00:00:00 neoplasm of colon Medical Ce nter (procedure) [code = 677496723] Future Scheduled 1958 Sigmoidoscopy [code = [facility]oscopy] Medical Cent[facility] r Future Scheduled 1958 Screening for malignant [facility] 00:00:00 neoplasm of breast Medical C enter (procedure) [code = 795472250] Future Scheduled 1958 CT Colonography (combo) [facility] 00:00:00 [code = CT [facility] (com[facility])] Future Scheduled 1958 Screening for malignant [facility] 00:00:00 neoplasm of colon Medical Ce nter (procedure) [code = 107492373] Future Scheduled 1958 Screening for malignant [facility] 00:00:00 neoplasm of colon Medical Ce nter (procedure) [code = 966671133] Future Scheduled 1958 Screening for malignant [facility] 00:00:00 neoplasm of colon Medical Ce nter (procedure) [code = 522007638] Future Scheduled 1958 Screening for malignant [facility] 00:00:00 neoplasm of colon Medical Ce nter (procedure) [code = 593217747] Future Scheduled 1958 Sigmoidoscopy [facility]code = [facility]oscopy] Medical Cent[facility] r Future Scheduled 1958 Screening for malignant [facility] 00:00:00 neoplasm of breast Medical C enter (procedure) [code = 390980636] Future Scheduled 1958 CT Colonography (combo) [facility] 00:00:00 [code = CT [facility]ography [facility] (combo)] Future Scheduled 1958 Screening for malignant [facility] 00:00:00 neoplasm of colon Medical Ce nter (procedure) [code = 097372989] Future Scheduled 1958 Screening for malignant [facility] 00:00:00 neoplasm of colon Medical Ce nter (procedure) [code = 909775467] Future Scheduled 1958 Screening for malignant [facility] 00:00:00 neoplasm of colon Medical Ce nter (procedure) [code = 054458228] Future Scheduled 1958 Screening for malignant [facility] 00:00:00 neoplasm of colon Medical Ce nter (procedure) [code = 498867383] Future Scheduled 1958 Sigmoidoscopy [code = [facility]oscopy] Medical Cente r Future Scheduled 1958 Screening for malignant [facility] 00:00:00 neoplasm of breast Medical C enter (procedure) [code = 996999655] Future Scheduled 1958 CT Colonography (combo) [facility] 00:00:00 [code = CT [facility] (combo)] Future Scheduled 1958 Screening for malignant [facility] 00:00:00 neoplasm of colon Medical Ce nter (procedure) [code = 732557461] Future Scheduled 1958 Screening for malignant [facility] 00:00:00 neoplasm of colon Medical Ce nter (procedure) [code = 307475869] Future Scheduled 1958 Screening for malignant [facility] 00:00:00 neoplasm of colon Medical Ce nter (procedure) [code = 582853106] Future Scheduled 1958 Screening for malignant [facility] 00:00:00 neoplasm of colon Medical Ce nter (procedure) [code = 028118902] Future Scheduled 1958 Sigmoidoscopy [code = [facility]oscopy] Medical Cente r Future Scheduled 1958 Screening for malignant [facility] 00:00:00 neoplasm of breast Medical C enter (procedure) [code = 399261190] Future Scheduled 1958 CT Colonography (combo) [facility] 00:00:00 [code = CT [facility] (combo)] Future Scheduled 1958 Screening for malignant [facility] 00:00:00 neoplasm of colon Medical Ce nter (procedure) [code = 777692565] Future Scheduled 1958 Screening for malignant [facility] 00:00:00 neoplasm of colon Medical Ce nter (procedure) [code = 467270193] Future Scheduled 1958 Screening for malignant [facility] 00:00:00 neoplasm of colon Medical Ce nter (procedure) [code = 545905214] Future Scheduled 1958 Screening for malignant [facility] 00:00:00 neoplasm of colon Medical Ce nter (procedure) [code = 475630295] Future Scheduled 1958 Sigmoidoscopy [code = [facility]oscopy] Medical Cente r Future Scheduled 1958 Screening for malignant [facility] 00:00:00 neoplasm of breast Medical C enter (procedure) [code = 506705870] Future Scheduled 1958 CT Colonography (combo) [facility] 00:00:00 [code = CT Colonography [facility] (combo)] Future Scheduled 1958 Screening for malignant [facility] 00:00:00 neoplasm of colon Medical Ce nter (procedure) [code = 814398957] Future Scheduled 1958 Screening for malignant [facility] 00:00:00 neoplasm of colon Medical Ce nter (procedure) [code = 695490066] Future Scheduled 1958 Screening for malignant [facility] 00:00:00 neoplasm of colon Medical Ce nter (procedure) [code = 039634332] Future Scheduled 1958 Screening for malignant [facility] 00:00:00 neoplasm of colon Medical Ce nter (procedure) [code = 712171486] Future Scheduled 1958 Sigmoidoscopy [code = [facility]oscopy] Medical Cente r Future Scheduled 1958 Screening for malignant [facility] 00:00:00 neoplasm of breast Medical C enter (procedure) [code = 643537792] Future Scheduled 1958 CT Colonography (combo) [facility] 00:00:00 [code = CT [facility]ography [facility] (combo)] Future Scheduled 1958 Screening for malignant [facility] 00:00:00 neoplasm of colon Medical Ce nter (procedure) [code = 065271574] Future Scheduled 1958 Screening for malignant [facility] 00:00:00 neoplasm of colon Medical Ce nter (procedure) [code = 965006669] Future Scheduled 1958 Screening for malignant [facility] 00:00:00 neoplasm of colon Medical Ce nter (procedure) [code = 756645705] Future Scheduled 1958 Screening for malignant [facility] 00:00:00 neoplasm of colon Medical Ce nter (procedure) [code = 521384681] Future Scheduled 1958 Sigmoidoscopy [facility]code = [facility] 1958 Screening for malignant [facility] 00:00:00 neoplasm of breast Medical C enter (procedure) [code = 344981359] Future Scheduled 1958 CT Colonography (combo) [facility] 00:00:00 [code = CT Colonography [facility] (combo)] Future Scheduled 1958 Screening for malignant [facility] 00:00:00 neoplasm of colon Medical Ce nter (procedure) [code = 111486405] Future Scheduled 1958 Screening for malignant [facility] 00:00:00 neoplasm of colon Medical Ce nter (procedure) [code = 380510873] Future Scheduled 1958 Screening for malignant [facility] 00:00:00 neoplasm of colon Medical Ce nter (procedure) [code = 645475742] Future Scheduled 1958 Screening for malignant [facility] 00:00:00 neoplasm of colon Medical Ce nter (procedure) [code = 167093874] Future Scheduled 1958 Sigmoidoscopy [facility]code [facility]] Medical Cente r Future Scheduled DIABETES: RETINAL EYE [facility] EX[facility] [code = DIABETES: Hospi jeovany RETINAL EYE EXAM] Future Scheduled DIABETIC FOOT EXAM [code [facility] = DIABETIC FOOT EXAM] Hospit al Future Scheduled URINE MICROALBUMIN [code [facility] = URINE MICROALBUMIN] Hospit al Future Scheduled COVID-19 VACCINE (1) [facility] [code = COVID-19 VACCINE Hos pital (1)] Future Scheduled Hepatitis C screening [facility] (procedure) [code = Hospital 172245558] Future Scheduled Screening for malignant [facility] neoplasm of cervix Hospital (procedure) [code = 172171858] Future Scheduled BREAST CANCER SCREENING [facility] [code = BREAST CANCER Hospit al SCREENING] Future Scheduled COLONOSCOPY SCREENING [facility] [code = COLONOSCOPY Hospital SCREENING] Future Scheduled SHINGLES VACCINES (#1) [facility] [code = SHINGLES VACCINES Ho spital (#1)] Future Scheduled INFLUENZA VACCINE [code = [facility] INFLUENZA VACCINE] Hospital Encounters Start End Encounter Admission Attending Care Care Encounter Source Date/Time Date/Time Type Type Clinicians Facility Department ID 2021-01-11 [facility] [id number] [facility] 23:34:53 [facility] 2021-01-11 Outpatient [facility] Surgery [id number] SLE 20:32:36 [facility] 2021-01-11 Outpatient [facility] Surgery [id number] SLE 13:26:30 [facility] 2022-10-30 2022-10-31 Emergency Josette, [id number] Methodi 23:17:00 02:04:[id number] [facility] [id number] [id number] l .8 2022-10-30 2022-10-31 Emergency JOSETTE, [facility] [id number] [place] [address] 00:00:00 00:00:00 UDAY Casarez[address] 2022-10-19 2022-10-19 Outpatient [id number] PRIV PRIV [id number] [facility] 00:00:00 00:00:00 Ledy [id number] Medic il 2022-02-02 2022-02-02 [facility] [id number] [facility] 10:36:00 14:56:00 Encounter [facility] 2022-02-02 2022-02-02 [facility] [id number] 10:36:00 14:56:00 [facility] 2022-02-02 2022-02-02 Outpatient EL OTAAMIR, SLE Surgery [id number] SLE 10:36:00 14:56:00 [facility] 2022-02-02 2022-02-02 Surgery [facility], [facility] [id number] 13:00:00 14:30:00 [facility] 2022-02-02 2022-02-02 Surgery [facility], [facility] [id number] 13:00[facility]00 14:30[facility]00 [facility] 2022-02-02 2022-02-02 Anesthesia GaJocelin zhu [facility] [id number] [facility] 13:05:00 13:52:00 Event [facility] 2022-02-02 2022-02-02 Anesthesia GaJocelin zhu [facility] [id number] [facility] 13:05:00 13:52:00 Event [facility] 2022-02-02 2022-02-02 Travel [facility] [id number] [facility] 00:00:00 00:00:00 [facility] 2022-02-02 2022-02-02 Travel [facility] [id number] [facility] 00:00:00 00:00:00 [facility] 2022-02-01 2022-02-01 Outpatient [facility] [id number] SLE 10:15:55 23:59:00 2022-02-01 2022-02-01 [facility] [id number] 10:00:00 23:59:00 Encounter [facility] 2022-02-01 2022-02-01 [facility] [id number] 10:00:00 23:59:00 Encounter [facility] 2022-02-01 2022-02-01 Travel [facility] [id number] [facility] 00:00:00 00:00:00 [facility] 2022-02-01 2022-02-01 Travel [facility] [id number] [facility] 00:00:00 00:00:00 [facility] 2019-11-17 2019-11-17 Outpatient EL SLE SLE [id number] [facility] 00:00:00 00:00:00 2019-08-15 2019-08-15 Outpatient EL [facility] [id number] [facility] 00:00:00 00:00:00 2018-05-24 2018-05-24 Karlos ANTONIO, [facility] [place] [id number] [place] 10:30:00 10:30:00 t; WILL, Surgery Physi ci MARISELA, D.O. Specialty ans WILL D.O. 2018-04-26 2018-04-26 Karlos ANTONIO, UTP UTP [id number] [place] 10:15:00 10:15:00 t; WILL, Physi ci MARISELA, D.O. ans WILL, D.O. 2018-04-19 2018-04-19 Karlos ANTONIO, UTP UTP [id number] [place] 10:00:00 10:00:00 t; WILL, Physi ci MARISELA, D.O. ans WILL, D.O. 2018-03-27 2018-03-27 Karlos ANTONIO, UTP UTP [id number] [place] 10:30:00 10:30:00 t; WILL, Physi ci FELINSKI, D.O. ans WILL, D.O. 2018-03-22 2018-03-22 Karlos ANTONIO, UTP UTP [id number] [place] 10:30:00 10:30:00 t; WILL, Physi ci FELINSKI, D.O. ans WILL, D.O. 2018-03-06 2018-03-06 Appointlindsey MACK, [facility] UTP [id number] [place] 08:30:00 08:30:00 t; CYRIL MACK M.D. P hysici HANI, M.D. ans 2018-02-14 2018-02-14 Appointlindsey ANTONIO, UTP UTP [id number] [place] 08:15:00 08:15:00 t; WILL, Physi ci FELPatricia MATAMOROS D.O. 2018-01-11 2018-01-11 Karlos ESTRADASATURNINO, [facility] [id number] [place] 10:30:00 10:30:00 t; Paulie SOLIS D.O. ans MELISSA, D.O. Results Test Description Test Time Test Comments Results Result Comments Source Tissue Exam 2022-04-07 14:17:17 Test Item Value Reference Range Interpretation Comme nts Case Report (test code = 104) Surgical Pathology Report Case: [id number] Authorizing Provider: Vinnie Oglesby, Collected: 02/02/2022 01:28 PM Ordering Location: [facility] Endoscopy Received: 03/06/2022 11:30 AM Services Pathologist: Ladarius Ureña MD Specimen: Polyp, Gastric, via EMR DIAGNOSIS (test code = 3220) [id number] uYmpcdWMxIHtcc wQeNYikqCnyQHCvHvallqUqBWRhqYPsJ1PunirtPMsbPZ5tBT 3ouNfhoYGvgUWqNKAjEdBzj0ame447sOWss1svLNHTfxuizRm 4gRqzD60zo0K6SxjgU1wvFVNkDntuarEumtH1CCCbvNZjTot6 EVFeeXHlddGdWyKzUXNfcZNwpOH0NULkWI0iokylHPxyECdaP YRjtaO0YQMwbFEwI0ZbEPEmSO2rmonuCUC8OAhaVXVwEXZ9Ue MlAAMpb5Kxrvq8KzFbsYHnSMtqeLKpnajsapJcJBUvOOQUXBx BMGNLWK9CXXEEWSGuSbdLHNuRRmPRGXXRHqiVXzKIJ3cEZPeI FCBSJs7FGSKHIqSKXsKGMURQLETXCKbjJmExE37RVETDHZYID RTDT29NZRqHAQMLHO4HLTZPW4ZCJOHPBF8WFEfURQxbN64AUR DVAQ5RNYbhO26SBwKXJJxDIhLcUS3AT9WZR3GLLWxEAIVBQG6 QHqFCEM8VQtWBZSYDGWIIWG0kNVMXPq5FRBSCDwIMCFFjA4YU KX5QPNBRRtKCR3IaPQzLTePZOPVBGkOTT1TPWWyEWUNnZJyeP BCoRCVZZMXIC1FDLiNOSUOQVDXAAK5EAtDiJI7iZIgDAyXOGO VTKE9JNWXXPvNDLVZREZDqKNFbUOgGVRZHPxZUUUJSWA3IDL7 wxFWttYmxswPfFIxet8SsYXtfXDEcYM0qqHeqYACuAP0yZSCc X4iioU9vijd3CeJpXZCnUbT3AWKbrlQ6Yyo1MEFaRNryy0eyv 4ZaPVFrCLa9gJfkKgHtVYKin3ziosFtWgZtOMYhTGIkPUGgoD GhH634z1nch0pbztXfoSH2GVRcJEU6BRywdeAfrlW0KQekyLR xPbH7EUgremFyRFjtqcNhdjZiMen3SAWuX645XFU2uAbrs3jw UAW5IMLsFYOoDyEiRb4jcVUiM950AIJdDBVCQESsePn5CJKhv uCnfqHouKKKv007H086m5joMDIancCiuNlVvvomm7zbB305ZD HspQFgfkHqExFrAHWamYFwpDM6EEYxAF6bwnglBLkpIPlnYZB kkbH3KBQpcCJlK4QrCYWmDB3iyjpcYOY9BZmnROIxHST8OuRs WFWyp9Vjfdp9BzBxvs9clo39ZZD7l9YxcWisXFG0IDL3PqYrD b4cyRIzKLHiXD3tVhEzzSPrPQSjta11gHptUPxfXBN1KMYckx Boz7Jce2kzPiDtqcAiL8ulP8QiWZDiOGGaKJJbNpVpsyEmq0W cl9AleSSrpXx5b8dvVXKjBGAirCpht9dyKZP8CUAypJQmN2sx iL8xBSTmWU7fgllpu0udYLdpGEfpXFWazYQ0msQ4ZQBxiCGnR 2DvhF6eYCSwKXwsLCOqdyl5AqNvEz4pmHUyyWjbVQbiExhiJK dlXHBnbmNvbnRccGduZGVjXHBsYWluXHBsYWluXGYwXGZzMjR kcXhenCBzSxNnRnNxaAnxtGkeQMipBjEfHJTkPWdaO5roJoEa XzTrJdx6UCWxhVThLZItKhr7RROedJYfQYGTzTtdvP3xXNNaj WxabB9ogDZ5SWUmkuJxgCBSkH8tMOZOfQ3oMkG8MKCbJbr8SG L1UaNauZXfxK3= [facility] [id number] 14:17:17 Test Item Value Reference Range Interpretation Comments Case Report (test code Surgical Pathology = 104) Report Case: [id number] Authorizing Provider: Vinnie Oglesby, Collected: 02/02/2022 01:28 PM Ordering Location: [facility] Endoscopy Received: 03/06/2022 11:30 AM Services Pathologist: Ladarius Ureña MD Specimen: Polyp, Gastric, via EMR DIAGNOSIS (test code = h1dgcAVrSCRze1wzSKMhiKO 3220) uZzEwMzNcZnRuYmpcdWMxIH tccnRmMVxlcGljOTYwMlxhb bNfUEDikAVnK5DngofuEGea TM5qOH6obTospHNkwTPhTVR bBtGpk0zfe559bWVlt0snHV PHyklpgPx7uPolJ08qe7Q4Y tzrO8kwXUZkHmgahbDvgaV5 RMJwwZDeKca7NSXlpQEzrvM yQdLgKVOdbSFoqKI4UOAqZE 7woutnAInsNCwaJQWwzkV2H HEaqBGoG9JxNQPeNM6lljjc ROV5WLbgOAJwDAY9RxLmAXM lt4Fcygv2UeEoaXTvYGvqpJ FpblxmczIwXGNmMSBUSElTI LSMQU4ARCTWEBWnBalQZHbX BhAECPVLBmhLJmHDS3iMPSi ZMVPLVt2MUENJPtSBPiKJNX BYSAFRLNmzTsQmX57RBTUVD CZFTRASD07UWBoSAMNYKL7T YGELC3SSASOMDN0SZUwVCMz qL79ZGZOIOE3RSZmwC46PCw NJUJlMSmOwMJ7LI9NMU7OZO VtSMRXRBX9TJmNFPD8SRjQA TYHGDMCPKO0cRSWOYf1BJGH FIfMLLJFdZ4NNDN7EMYKUCg TNW3KnWMgABqAVZJDOJfLRQ 1JZIElTIDIxMDgzMDEuIFRI TCRGF7KTPxSQEWCOYDLVBF3 USbJqTG3jDBeOXgHWHZXBSR 5VTUJFUiBTRVJWRVMgQVMgV EbLJWIHFbXJFXPSBR7ILF2o tPEdeZikbxWdSIirx0SwGYd lZOUgPX6efRnxAJLrZC2cCG BmA2nnbS2mwhy5DkWrFJSqM zW8EJCeukY2Fwz2ERLhMLho u7eru6QeLSIdZKp9yHygOhR hDZIua8cqhmKaHdJjTRTaTC IuOBSztXKxM080e6syq5tor uTvxOP2IJNqSXV9EIvhpbRz xaK7DUbrtTXbBaB1MJcjzoP zSGmrniEmncKeZrh0FMTgA4 48KLF0rPtgo8gsBNP9JQLpR MUbVnRiPr3umEElF767PQOo MQSKBADriVy5EATouvUrgoS oyTOWs216F548n0frVPUafr ZxhMkLydhca7trX033FHIqm GVydzEyMjQwXHBhcGVyaDE1 SVBnWT5uypchDEelQZqtXHV rowD9ADYvcVFvE4GzVKTgWZ 2fyzxyUOC0UXjgBGKeDTB0G dTmJAZyn0Yjfnn4ZlHlsj8g rg20OMH1x5RupUnfRZJ5UBH 3BlYeJu5ynZMkUXFgHT5nAu KwqRNzDXDxut65fVhoYAheB YV2SZDbrvAdr9Par8hzGuPb teAdV6gxL8FqYJRiJTStJKV nIbQmfxJnl7Pmm7PkuJMduY o4e2fcEBFgYCOngWrst5biE GU1NFIykPChJ1eedR7lMMFr ME7akqyga7uyPLrdHNrqORU zeSB4hiO3CMMbyKJoT6RyyE 7tACAlBQvhAPTdbwf4DuEuD i7kqSBpyEujDCjxQtehRDvm XHBnbmNvbnRccGduZGVjXHB sYWluXHBsYWluXGYwXGZzMj RccWxcbGFuZzEwMzNcaGlja YbmBVsrHgEfSPVsMUipD9eb LzMsBrToXse8ECCyyBEpZSX aLug3NEUfmXYfNEWNoVuuhQ 6mGYQjqFslkZ3tjJV1JQEzf wUtuLYCsE6xUQRMhN5nAyP0 NEPxLwh0BZS3FuEbwJHaaR5 = [facility] [id number] 14:17:17 Test Item Value Reference Range Interpretation Comments Case Report (test code Surgical Pathology = 104) Report Case: [id number] Authorizing Provider: Vinnie Oglesby, Collected: 02/02/2022 01:28 PM Ordering Location: [facility] Endoscopy Received: 03/06/2022 11:30 AM Services Pathologist: Ladarius Ureña MD Specimen: Polyp, Gastric, via EMR DIAGNOSIS (test code = p9havRTwGXPdh9tsJGCwkBD 3220) uZzEwMzNcZnRuYmpcdWMxIH tccnRmMVxlcGljOTYwMlxhb sMsSHSftAKaQ0DismaqMFwl CS4xRC1zrPkudJUozOYzEKD vFdMyy3wtc507rWZxf6xwJD YDwwkdnIo5nRtnB12bt6T7E xonW6tqNFZnGchbyjKripU2 CJTqsWCnVoh4TJCeyCPjzsK gEcOfVQXvhGIihGT8GTNvRC 5mqpccASoxUDytXXUnduT1A KUqdVHlK8AvFGRnXD6fxjyj GJC7IFarYFFiDMR9CmJaUEY ib6Uwpvw7TkCxyUZxYIuxtB FpblxmczIwXGNmMSBUSElTI GMTUK6DDNIAIYFgAndNGLyU EeWYXUPZVnhWRpNKJ9hVTSx CZXLCPg4FHZOTVxEEDjWMJG CYJWDOUPyfHlPcJ48ADKZUN VMXUDBXS23BWBjLDMNWPM1B RACPO7OBPAJTDR6JBPuHLHn mK53RJQQNBL6AFUaaB17GOy HXBJtMKpTuJP7MB0LZE6XZQ ErZLBYUWT3TKaWASI5PEhTU IKRTYBCWJC3sDVZTVk5GXDM XSzZBXFFxH1IXUP1ABDAQAd EDE1QsEEgTNtDQKUDDGuHDD 1JZIElTIDIxMDgzMDEuIFRI AOYPL7XOMaSJHAIBEAQIBR8 VJzFiXL7cJJtMNhSODMFCGZ 5VTUJFUiBTRVJWRVMgQVMgV JwMMAYMZxCOBWUGTG7GAX5u lBFclZxreqBkDPxjx8XiEQv cMCHdIP7atQjvSUSsAU1rOD BsZ0emsW8pjsg0IgHfARTeO pW1NWMglcU9Zrw9FRIcPIbl b7vth0BbVAIeJNh9rLmwTsB yOSMqb5yeywTsDzQwKHPcMX GbYSQbpPPgO515v0umz8ytb fTfqNJ3XUOfAAH8QEddrtRt nxS2LTbjoDOmTsE0EXyyqkV qZKvdbmTfjrCkSjm2BXFuQ5 07LPJ9tRbfk8hvSEV2OUVlF VZqRuHaBk1apNEaH046ARJr FDBTCOKdoAr8IDYwocYhbaT vqHWRj766O503p4dkQIHgjo MymGrLdedlx7xmB402VEBxe GVydzEyMjQwXHBhcGVyaDE1 EWNcIZ7sownlMYzxNTrnDIP iozQ5IGUutBDnP2PyYMGyHO 3uwwyzQWD9ILpmOLWtACW1I fUgFLGzf4Ieloa1KkVozc4q kc29KKT2r0TrvIduIXV6FLV 5LrUgNq3deBUvTFHhCQ1tQu OylMLuYFLcfz36tBtdHKhlC CF6XXZuhjYea7Rke2opSxCw feXjX5opX4XgXQGuWEMeAJJ hVgOtnxEdk7Add3UfwTDqdF r3f6wlAICiJJDgwLimk3hpN SQ3YUJufGWpL7lsoN6iHCOm QB7wecupo5paDCzwAXmlNFI mcOO6jcV3NQBrqFCvO0LtdT 7tJXXrMRbvFTEnmpk5UoRvX q9plDQvdTblOUbeUouuBIzg XHBnbmNvbnRccGduZGVjXHB sYWluXHBsYWluXGYwXGZzMj RccWxcbGFuZzEwMzNcaGlja AktPDfqPqSeFAPbGTpnC1ez UtTiEgRlKsa4BWFddXCoALJ lDzj6SWPupTLvWYCDnGpigR 0gGVSbwKepcO8xrHZ3CAHuz kJhsRDTrV2nPVMFwD2yVmU3 AWVqBgz4HTW0PuRapIQzaR3 = [facility] [id number] 14:17:17Surgical Pathology Report Case: [id number] Authorizing Provider: Vinnie Oglesby, Collected: 02/02/2022 01:28 PM Ordering Location: [facility] Endoscopy Received: 03/06/2022 11:30 AM Services Pathologist: Ladarius Ureña MD Specimen: Polyp, Gastric, via EMR THIS REPORT WAS FINALIZED DURING DOWNTIME PROCEDURES. THERE MAY BE SOME VARIATIONS IN REPORT FORMATTING WITH SOME MANUAL CORRECTIONS. MICROSCOPIC EXAMINATIONS HAVE BEEN PERFORMED. THE CAP NUMBER FOR THIS LABORATORY IS [id number]. THE SCANNED ATTACHMENT TO THIS CASE NUMBER SERVES THE FINAL REPORT. Signing Pathologist Direct Phone Line:[phone] signed by Ladarius Ureña MD on 04/07/2022 at 2:17 PMPOC-Glucose [id number] 14:00:02 Test Item Value Reference Range Interpretation Comments POC-Glucose Meter (test 100 mg/dL 70-110 : TE STED AT [facility] code = 1538) [address] [facility], 770 30: Recreational Director/Techni wendy ID = [id number] for Alban Moreno Lab Interpretation (test Normal code = 59321-1) [facility] [id number] 14:00:02 Test Item Value Reference Range Interpretation Comments POC-Glucose Meter (test 100 mg/dL 70-110 : TE STED AT [facility] code = 1538) [address] [place] [address], 770 30: Recreational Director/Techni wendy ID = [id number] for Josh, Shemek e Lab Interpretation (test Normal code = 50860-9) [facility] [id number] 14:00:02 Test Item Value Reference Range Interpretation Comments POC-Glucose Meter (test 100 mg/dL 70-110 : TE STED AT [facility] code = 1538) [address] [place] [address], [facility] 30: Recreational Director/Techni wendy ID = [id number] for Josh, Shemek e Lab Interpretation (test Normal code = 28885-2) [facility]-Glucose [id number] 14:00:02 Test Item Value Reference Range Interpretation Comments POC-Glucose Meter (test 100 mg/dL 70-110 : TE STED AT [facility] code = 1538) [address] [place] [address], 770 30: Recreational Director/Techni wendy ID = [id number] for Josh, Shemek e Lab Interpretation (test Normal code = 19241-1) [facility] [id number] 14:00:02 Test Item Value Reference Range Interpretation Comments POC-Glucose Meter (test 100 mg/dL 70-110 : TE STED AT [facility] code = 1538) [address] [place] [address], [facility] 30: Recreational Director/Techni wendy ID = [id number] for Josh, Shemek e Lab Interpretation (test Normal code = 57934-1) [facility]-Glucose [id number] 14:00:02 Test Item Value Reference Range Interpretation Comments POC-Glucose Meter (test 100 mg/dL 70-110 : TE STED AT [facility] code = 1538) [address] [place] [address], 770 30: Recreational Director/Techni wendy ID = [id number] for Josh, Shemek e Lab Interpretation (test Normal code = 55519-5) [facility] [id number] 14:00:02 Test Item Value Reference Range Interpretation Comments POC-Glucose Meter (test 100 mg/dL 70-110 : TE STED AT [facility] code = 1538) [address] [facility], 770 30: Recreational Director/Techni wendy ID = [id number] for Opal Morenok e Lab Interpretation (test Normal code = 78504-9) [facility]ucose [id number] 14:00:02 Test Item Value Reference Range Interpretation Comments POC-Glucose Meter (test 100 mg/dL 70-110 : TE STED AT [facility] code = 1538) [address] [facility], 770 30: Recreational Director/Techni wendy ID = [id number] for Josh, Destineemek e Lab Interpretation (test Normal code = 67636-4) [facility] CenterPO[facility]GLUCOSE [id number] 14:00:02 Test Item Value Reference Range Interpretation Comments POC-GLUCOSE METER 100 mg/dL 70-110 : TESTED A T [facility] 6720 (BEAKER) (test code = [facility], 153) [address]2278: Recreational Director/Techni wendy ID = [id number] for Leah tyra Denisha POCT-GLUCOSE [id number] 12:19:11 Test Item Value Reference Range Interpretation Comments POC-GLUCOSE METER 120 mg/dL 70-110 H : TESTED A T [facility] 6720 (BEAKER) (test code = [facility], 153) 94453: Recreational Director/Techni wendy ID = [id number] for JOSE LUIS Cortez HEMOGLOBIN [id number] 09:28:00 Test Item Value Reference Range Interpretation Comments HEMOGLOBIN A1C (BEAKER) (test code = 8.1 % 4.3-6.1 H 368) POCT-GLUCOSE [id number] 07:44:00 Test Item Value Reference Range Interpretation Comments POC-GLUCOSE METER 130 mg/dL 70-110 H : TESTED A T [facility] 6720 (BEAKER) (test code = [facility], 153) 83889: Recreational Director/Techni wendy ID = [id number] for DAVE KRISSY MAZARIEGOS COMPREHENSIVE METABOLIC [id number] 06:55:00 Test Item Value Reference Range Interpretation [...] S NOT APPLICABLE FOR DIALYSIS PATIEN TS. Recreational Director ID - PIAYA LCBC W/PLT COUNT & AUTO [id number] 05:55:00 Test Item Value Reference Range Interpretation [...] PERCENT (BEAKER) (test code = 2801) POCT-GLUCOSE [id number] 21:17:00 Test Item Value Reference Range Interpretation Comments POC-GLUCOSE METER 255 mg/dL 70-110 H : TESTED A T [facility] 6720 (BEAKER) (test code = TERRI ZAIDI MD, 1538) 31069: Recreational Director/Techni wendy ID = [id number] for ABHILASH MARTI [id number] 11:22:39INTRA OP IMAGINGReason for exam:->abnormal imaging Fluoroscopic unit utilized for a procedure performed in the OR. No interpretation was requested. Refer to the operative report for findings. Refer to PACS for patient radiation dose information.POCT-GLUCOSE [id number] 07:45:00 Test Item Value Reference Range Interpretation Comments POC-GLUCOSE METER 155 mg/dL 70-110 H : TESTED Alexandre T [facility] 6720 (MAN) (test code = TERRI ZAIDI MD, 1538) 91599: Recreational Director/Techni wendy ID = [id number] for ED WARDS, KATIE TISSUE [id number] 09:36:00Surgical Pathology Report Case: [id number] Authorizing Provider: Vinnie Oglesby Collected: 08/26/2019 12:43 PM MD Beatrice Ordering Location: [facility] Endoscopy Received: 08/26/2019 01:56 PM Services Pathologist: Isac Cummins MD Specimen: Biopsy, Gastric, gastric polyp A. STOMACH, POLYP, BIOPSY: - ANTRAL MUCOSA WITH POLYPOID FOVEOLAR HYPERPLASIA - NEGATIVE FOR HELICOBACTER PYLORI ORGANISMS BY WARTHIN STARRY STAIN - NEGATIVE FOR INTESTINAL METAPLASIA, DYSPLASIA, MALIGNANCY Signing Pathologist Direct Phone Line: [phone] signed by Isac Cummins MD on 08/27/2019 at 9:36 [id number]: upper endoscopy, biopsyPre and postop diagnosis: acute [...] are evaluated Immunohistochemistrytechnical testing was performed at [facility], Pathology Laboratory where it was developed [...] to perform high complexity clinical laboratory testing.POCT-GLUCOSE [id number] 13:26:00 Test Item Value Reference Range Interpretation Comments POC-GLUCOSE METER 122 mg/dL 70-110 H : TESTED A T [facility] 6720 ([employer]) (test code = [facility] 1538) [address]254: Recreational Director/Techni wendy ID = [id number] for Ilda Bailey POCT-GLUCOSE [id number] 11:40:00 Test Item Value Reference Range Interpretation Comments POC-GLUCOSE METER 137 mg/dL 70-110 H : TESTED A T [facility] 6720 ([employer]) (test code = [employer] [facility], 1538) 21193: Recreational Director/Techni wendy ID = [id number] for KATIE CANTU COLON SEGMENT RESEC.NOT [id number] 19:21:00 RUN DATE: 11/14/18 [facility] PAGE 1 RUN TIME: 810 Specimen Inquiry RUN USER: INTERFACE --PATIENT: DAISY CARRION LOC: [facility] U #: [id number] AGE/SX: 58/F ROOM: [facility] RE11/11/18REG DR:Betito Collazo MD : 56 BED: A DIS: 11/13/18 STATUS: DIS Sharla TLOC: SPEC #: [id number] RECD: 11/11/18 STATUS: BRITTNY JIANG #: [id number] CRISTINO: 11/11/18- SUBM DR: Betito Collazo MD ENTERED: 11/11/18 SP TYPE: COLONR NIDIA DR: ORDERED: LEVEL V SURGICA CODES: Q28056 - COLON, NOS PROCEDURES: LEVEL V SURGICA (Incomplete) TISSUES: COLON, NOS - RECTOSIGMOID DIVERTICULITIS CLINICAL HISTORY 58 year old, diverticulitis (wpd) FINAL DIAGNOSIS Designated "rectosigmoid diverticulitis", segmental resection: - diverticular disease with peridiverticular fibrosis - intestinal rings - unremarkable CPT code(s): 94034 pkg/wpd 11/13/18 GROSS DESCRIPTION ANATOMIC SOURCE OF [...] and contains unremarkable mucosa and surrounding tissue. Management Tech sections are submitted in A2. The largest [...] Specimen Inquiry RUN USER: INTERFACE SPEC #: [id number] PATIENT: DAISY CARRION #[id number] (Continued) -- GROSS DESCRIPTION(Continued) 1.0 cm and containing green-brown fecal material. No discrete perforation or discoloration in those areas are noted. Management Tech sections of the intestine with the diverticula are submitted in A3 - A8. Examination of attached adipose tissue reveals no discrete lymph nodes. Management Tech sections are submitted in A9 - A16. /wpd 11/11/18 @ 6014 MICROSCOPIC DESCRIPTION The specimen consists of a segment of rectosigmoid colon containing numerous diverticula which extend through the muscularis into the rectosigmoid adipose tissue. Foci of fibrosis are present adjacent to the diverticula. No granulomas, dysplasia or neoplasia are identified. The intestinal rings are unremarkable. abram/wpd 11/13/18 Signed Deena Storm 11/13/181920 END OF REPORT [id number] 07:10:00 Test Item Value Reference Range Interpretation Comments GLUBED (test code = GLUBED) 180 mg/dL 65-110 H COMPREHENSIVE METABOLIC [id number] 05:48:00 Test Item Value Reference Range Interpretation [...] 106 units/L 46-116 N code = ALKP) [id number] 05:48:00 Test Item Value Reference Range Interpretation Comments MAGNESIUM (test code = MAG) 1.8 mg/dL 1.8-2.4 N CBC W/AUTO [id number] 04:49:00 Test Item Value Reference Range Interpretation [...] REQUIRED (test NORMAL NORMAL code = PLTMR) [id number] 21:57:00 Test Item Value Reference Range Interpretation Comments GLUBED (test code = GLUBED) 278 mg/dL 65-110 H [id number] 17:26:00 Test Item Value Reference Range Interpretation Comments GLUBED (test code = 292 mg/dL 65-110 H Hypoglyc emic Protoco GLUBED) [id number] 12:11:00 Test Item Value Reference Range Interpretation Comments GLUBED (test code = GLUBED) 131 mg/dL 65-110 H [id number] 07:23:00 Test Item Value Reference Range Interpretation Comments GLUBED (test code = GLUBED) 110 mg/dL 65-110 N CHEMISTRY 7 [id number] 05:23:00 Test Item Value Reference Range Interpretation [...] code = CA) 7.8 mg/dL 8.4-10.2 L [id number] 05:23:00 Test Item Value Reference Range Interpretation Comments MAGNESIUM (test code = MAG) 1.8 mg/dL 1.8-2.4 N CBC W/AUTO [id number] 05:19:00 Test Item Value Reference Range Interpretation [...] REQUIRED (test NORMAL NORMAL code = PLTMR) [id number] 22:07:00 Test Item Value Reference Range Interpretation Comments GLUBED (test code = GLUBED) 171 mg/dL 65-110 H [id number] 17:41:00 Test Item Value Reference Range Interpretation Comments GLUBED (test code = GLUBED) 157 mg/dL 65-110 H [id number] 13:26:00 Test Item Value Reference Range Interpretation Comments GLUBED (test code = GLUBED) 154 mg/dL 65-110 H [id number] 06:54:00 Test Item Value Reference Range Interpretation Comments GLUBED (test code = GLUBED) 143 mg/dL 65-110 H CHEMISTRY 7 [id number] 13:07:00 Test Item Value Reference Range Interpretation [...] = CA) 8.5 mg/dL 8.4-10.2 N HGB [id number] 12:51:00 Test Item Value Reference Range Interpretation Comments HEMOGLOBIN (test code = HGB) 13.6 g/dL 10.7-13.9 N HEMATOCRIT (test code = HCT) 40.3 % 32.1-42.1 N Notes Date/Time Note Provider Source 2018-11-13 08:41:00-00:00 [facility] Discharge Summary REPORT#:[id number] REPORT STATUS: Signed DATE:11/13/18 TIME: 840 PATIENT: DAISY CARRION UNIT #: [id number] ROOM/BED: [address] : 58 AGE: 58 SEX: F ATTEND: Betito Collazo MD ADM AUTHOR: Liam Vega MD * ALL edits or amendments must be made on the [employer]/computer document * PCP PCP Discharge to: home [...] Room air 11/12 1623 O2 Flow Rate 10.808784 11/11 1926 24 hour I O ending [...] Vega MD on 10/25 at 0842 RPT #:[id number] END OF REPORT 2018-11-12 06:33:00-00:00 [facility] General Surgery Progress Note REPORT#:[id number] REPORT STATUS: Signed DATE:11/12/18 TIME: 06 PATIENT: DAISY CARRION UNIT #: [id number] ROOM/BED: [facility] : 58 AGE: 58 SEX: F ATTEND: Betito Collazo MD ADM AUTHOR: Liam Vega MD * ALL edits or amendments must be made on the [employer]/computer document * Diagnosis, Assessment Plan Free Text A P: POD 1 Robotic LAR for diverticulitis nausea and pain better controlled this morning, no flatus vitals reviewed abdomen soft appropriately tender mildly distend ed incisions c/d/i Labs reviewed Pain management discontinue nick decrease IVF DVT ppx Mobilization Advance diet with return of bowel function Electronically Signed by Liam Vega MD on 09/25 at 0634 RPT #:[id number] END OF REPORT 2018-11-11 16:56:00-00:00 [id number] [facility] [address] [place], [place] [address] PATIENT NAME: DAISY CARRION ADMIT DATE: ACCOUNT NO: [id number] ROOM NO: [facility] AGE: 58 SEX: F ADMITTING PHYSICIAN: Betito Collazo MD ATTENDING PHYSICIAN: Betito Collazo MD OPERATION DATE: 11/11/2018 PREOPERATIVE DIAGNOSIS: Recurrent diverticulitis . POSTOPERATIVE DIAGNOSIS: Recurrent diverticuliti s. PROCEDURES: 1. Laparoscopic-assisted robotic anterior rectos igmoid resection with primary colorectal anastomosis. 2. Laparoscopic splenic flexure takedown. 3. Intravascular injection of ICG for fluorescen ce angiography. COLORECTAL SURGEON: Betito Collazo MD PAINT BRUSH MAKER: Dr. Liam Vega. ANESTHESIA: General endotracheal anesthesia. [...] tolerated the procedure well without complications. Surgical director of first impressions was present, Dr. July villatoro. He was required to complete and accomplished procedure in a robotic and safe [facility]. PROCEDURE IN DETAIL: The patient was taken to [facility] operating room and after induction of anesthesia, john batool in the left lithotomy position, was prepped and draped in sterile fashion. Laparoscopic access w as gained with 5-mm Optiview trocar. Ports were placed on the right and umbil icus, one on the left. The patient was placed in Trendelenburg, left side e levated. The robot was docked. PATIENT NAME: DAISY CARRION [id number] Next about an hour, Dr. Delong performed [...] was secured with pursestring suture of end guillaume. Next, rectal cuff was closed around the [...] condition. Dictated By: Betito Collazo MD WT: OP:F.ZACH/SHERI/NTS Conf#: [id number]/DID#: [id number] Authenticated and Edited by Betito Collazo MD On 3:44:39 PM Electronically Signed by Betito Collazo MD on 11/07 12/26 at 1547 PATIENT NAME: DAISY CARRION [id number] 2018-11-06 12:23:00-00:00 [id number] [facility] [address] [place] [address] PATIENT NAME: DAISY CARRION ADMIT DATE: ACCOUNT NO: [id number] ROOM NO: AGE: 58 SEX: F ADMITTING PHYSICIAN: ATTENDING PHYSICIAN: Betito Collazo MD Order: [id number] Test Reason : PRE OP Test Date/Time [...] ECGs available Confirmed by ANAHI RIVERS MD ([id number]) on 9 7:46:25 AM Referred By: Betito Collazo Confirmed by:ANAHI RIVERS MD Electronically Signed by Anahi Rivers MD on 0 11/08/18 at 0746 PATIENT NAME: DAISY CARRION [id number]
[2022-12-22] MEDS ORDERED: NA CHLORIDE 0.9% 1,000 ML ONE (16:03)
[2022-12-22] MEDS ORDERED: FAMOTIDINE 20 MG/2 ML VIAL IV ONE (16:03)
[2022-12-22 16:34] LABS: Absolute Lymphocytes (CBC) 1.8 K/uL (0.7-4.9); Hematocrit 42.6 % (36.0-45.0); Lymphocytes % 17.8 % (15.3-44.8); MCV 88.9 fL (80-100); MPV 7.7 fL (7.6-11.3); Platelets 268 thou/uL (152-406); RBC Red Blood Cell Count 4.79 M/uL (3.86-4.86)
--- NOTE | 2022-12-22 16:35 | RAD REPORT ---
EXAM DESCRIPTION: CT - Head C Spine Cap Wo Con - 12/22/2022 4:05 pm CLINICAL HISTORY: Head and neck injury with chest and abdominal pain status post fall Syncope TECHNIQUE: Computed axial tomography of head, neck, chest, abdomen and pelvis obtained. IV and oral contrast not requested. Coronal and sagittal reconstruction performed. All CT scans are performed using dose optimization technique as appropriate and may include automated exposure control or mA/KV adjustment according to patient size. COMPARISON: CT head 2019 CT chest and abdomen 2022 FINDINGS: An intracranial bleed is not seen. The ventricles are normal in caliber. An extra-axial fluid collection is not noted. Fluid within the sinuses/mastoids is not seen. A cervical fracture is not seen. No dislocation is noted. The evaluation of mediastinum, quinten, vessels, solid organs and bowel are limited secondary to the lac k of contrast administration. A mediastinal hematoma is not noted. A pleural effusion is not seen. A lung contusion is not present. The liver,spleen, pancreas, adrenals,kidneys and bladder do not demonstrate an acute traumatic injury Fatty liver. Small ventral hernia contains fat. Hemangioma mid thoracic vertebral body IMPRESSION: No acute intracranial abnormality is seen. A cervical fracture is not visualized. If the patient continues to have symptoms to suggest intracran ial/spinal cord pathology MRI be recommended No acute traumatic abnormality involving the chest, abdomen or pelvis
[2022-12-22 16:43] LABS: SARS-CoV-2 Antigen Rapid Res Negative (Negative)
[2022-12-22 16:52] LABS: Albumin 3.8 g/dL (3.4-5.0); Bilirubin Direct 0.1 mg/dL (0-0.2); Bilirubin Indirect, Calculated 0.3 mg/dL (0.2-0.8); Bilirubin Total 0.4 mg/dL (0.2-1.0); Magnesium 2.2 mg/dL (1.6-2.4); Potassium 3.6 mEq/L (3.5-5.1); Protein, Total 8.6 g/dL (6.4-8.2); Troponin High Sensitivity 4.6 pg/mL (<58.9)
--- NOTE | 2022-12-22 16:53 | RAD REPORT ---
EXAM DESCRIPTION: [facility] Single View12/22/2022 4:13 pm CLINICAL HISTORY: cough COMPARISON: April 2022 FINDINGS: The lungs appear clear of acute infiltrate. The heart is borderline enlarged IMPRESSION: No acute abnormalities displayed
--- NOTE | 2022-12-22 17:32 | EDPHYS ---
Physician Documentation [facility] Name: Robyn Carrion Age: 62 yrs Sex: Female : 1960 Arrival Date: 12/22/2022 Time: 15:25 Bed 7 Private MD: ED Physician Tian Stuart HPI: 12/22 17:22 This 62 yrs old Female presents to ER via Wheelchair with complaints of lisa Syncope. 17:22 The patient has experienced near-syncope. Onset: The symptoms/episode began/occurred lisa just prior to arrival. Duration: This was a single episode, that lasted 10 second(s). Context: the episode(s) was witnessed, by a friend. Associated injury: The patient did not suffer any apparent associated injury. Associated signs and symptoms: The patient has no apparent associated signs or symptoms. Current symptoms: Currently, the patient is not experiencing any symptoms. The patient has not experienced similar symptoms in the past. Historical: - Allergies: 15:40 Codeine; hb 15:40 HYDROCODONE; hb - Home Meds: 15:42 atorvastatin Oral [Active]; Carafate 1 gram Oral tab 1 tab 4 times per day [Active]; hb Creon Oral [Active]; Dicyclomine Oral [Active]; Lantus Sub-Q [Active]; lisinopril Oral [Active]; Protonix Oral [Active]; - PMHx: 15:40 cricopharyngeal spasm; fernando esophageal disease; Hernia; High Cholesterol; hb Hypertensive disorder; IDDM; Pancreatitis; vericose vein; - PSHx: 15:40 bladder prolapse SX; Cholecystectomy; ercp; hernia repair; colon removal; hysterectomy; hb polyp removed; - Immunization history:: Adult Immunizations up to date. - Social history:: Smoking status: Patient denies any tobacco usage or history of. ROS: 17:24 Constitutional: Negative for fever, chills, and weight loss, Eyes: Negative for injury, lisa pain, redness, and discharge, ENT: Negative for injury, pain, and discharge, Neck: Negative for injury, pain, and swelling, Cardiovascular: Negative for chest pain, palpitations, and edema, Respiratory: Negative for shortness of breath, cough, wheezing, and pleuritic chest pain, Abdomen/GI: Negative for abdominal pain, nausea, vomiting, diarrhea, and constipation, Back: Negative for injury and pain, : Negative for injury, bleeding, discharge, and swelling, Skin: Negative for injury, rash, and discoloration, Psych: Negative for depression, anxiety, suicide ideation, homicidal ideation, and hallucinations, Allergy/Immunology: Negative for hives, rash, and allergies, Endocrine: Negative for neck swelling, polydipsia, polyuria, polyphagia, and marked weight changes, Hematologic/Lymphatic: Negative for swollen nodes, abnormal bleeding, and unusual bruising. 17:24 MS/extremity: Positive for contusion, pain, of the right knee. 17:24 Neuro: Positive for near syncope, weakness. Exam: 17:24 Constitutional: This is a well developed, well nourished patient who is awake, alert, lisa and in no acute distress. Head/Face: Normocephalic, atraumatic. Eyes: Pupils equal round and reactive to light, extra-ocular motions intact. Lids and lashes normal. Conjunctiva and sclera are non-icteric and not injected. Cornea within normal limits. Periorbital areas with no swelling, redness, or edema. ENT: Nares patent. No nasal discharge, no septal abnormalities noted. Tympanic membranes are normal and external auditory canals are clear. Oropharynx with no redness, swelling, or masses, exudates, or evidence of obstruction, uvula midline. Mucous membranes moist. Neck: Trachea midline, no thyromegaly or masses palpated, and no cervical lymphadenopathy. Supple, full range of motion without nuchal rigidity, or vertebral point tenderness. No Meningismus. Chest/axilla: Normal chest wall appearance and motion. Nontender with no deformity. No lesions are appreciated. Cardiovascular: Regular rate and rhythm with a normal S1 and S2. No gallops, murmurs, or rubs. Normal PMI, no JVD. No pulse deficits. Respiratory: Lungs have equal breath sounds bilaterally, clear to auscultation and percussion. No rales, rhonchi or wheezes noted. No increased work of breathing, no retractions or nasal flaring. Abdomen/GI: Soft, non-tender, with normal bowel sounds. No distension or tympany. No guarding or rebound. No evidence of tenderness throughout. Back: No spinal tenderness. No costovertebral tenderness. Full range of motion. Skin: Warm, dry with normal turgor. Normal color with no rashes, no lesions, and no evidence of cellulitis. MS/ Extremity: Pulses equal, no cyanosis. Neurovascular intact. Full, normal range of motion. Neuro: Awake and alert, GCS 15, oriented to person, place, time, and situation. Cranial nerves II-XII grossly intact. Motor strength 5/5 in all extremities. Sensory grossly intact. Cerebellar exam normal. Normal gait. Psych: Awake, alert, with orientation to person, place and time. Behavior, mood, and affect are within normal limits. 17:24 ECG was reviewed by the Attending Physician. 17:24 Musculoskeletal/extremity: ROM: intact in all extremities, full active range of motion, Circulation is intact in all extremities. Sensation intact. Compartment Syndrome exam of affected extremity: is normal. DVT Exam: No signs of deep vein thrombosis. no pain, no swelling, no tenderness, negative Homans' sign noted on exam, no appreciated bluish discoloration, no erythema, no increased warmth. Vital Signs: 15:39 BP 177 / 100; Pulse 89; Resp 20; Temp 98.5(O); Pulse Ox 99% on R/A; Weight 69.85 kg; hb Height 5 ft. 2 in. ; Pain 8/10; 17:05 BP 156 / 78; Pulse 73; Resp 17; Pulse Ox 100% ; ll1 17:46 BP 140 / 68; Pulse 72; Resp 18; Pulse Ox 100% ; ll1 18:01 BP 145 / 73; Pulse 60; Resp 17; Pulse Ox 100% on R/A; ll1 15:39 Body Mass Index 28.17 (69.85 kg, 157.48 cm) hb 15:39 Pain Scale: Adult hb MDM: 15:33 Patient medically screened. lisa 17:26 Differential Diagnosis: abrasion, closed head injury, contusion, fracture, laceration, lisa multiple trauma, sprain, strain, aortic aneurysm, cardiac arrhythmia, cerebrovascular accident, emotional response, GI bleed, idiopathic syncope, pseudo seizure, seizure, transient ischemic attack, vasovagal episode. Data reviewed: vital signs, nurses notes, EMS record, lab test result(s), EKG, radiologic studies, CT scan, plain films. I considered the following discharge prescriptions or medication management in the emergency department Medications were administered in the Emergency Department. See MAR. Independent interpretation of the following test(s) in the Emergency Department EKG: See my EKG interpretation above. Test considered but Not performed: MRI: no mri brain. Historians other than the Patient: EMS: ems informed. Care significantly affected by the following chronic conditions: barretts, hernia, cricopharyngeal spasm. Counseling: I had a detailed discussion with the patient and/or guardian regarding the historical points, exam findings, and any diagnostic results supporting the discharge/admit diagnosis, lab results, radiology results, the need for outpatient follow up, for definitive care, a glazing superintendent, a family practitioner, a linotype machinist. 12/22 15:35 Order name: Basic Metabolic Panel; Complete Time: 16:59 12/22 15:35 Order name: CBC with Diff; Complete Time: 16:59 12/22 15:35 Order name: LFT's; Complete Time: 16:59 12/22 15:35 Order name: Magnesium; Complete Time: 16:59 12/22 15:35 Order name: NT PRO-BNP; Complete Time: 16:59 12/22 15:35 Order name: PT-INR; Complete Time: 16:59 12/22 15:35 Order name: Troponin HS; Complete Time: 16:59 12/22 15:35 Order name: Flu; Complete Time: 16:59 12/22 15:35 Order name: SARS RAPID; Complete Time: 16:59 12/22 17:16 Order name: Lipase; Complete Time: 17:35 12/22 15:35 Order name: XRAY Chest (1 view); Complete Time: 16:59 12/22 15:42 Order name: CT Traumagram (Head C Spine CAP wo con); Complete Time: 16:59 12/22 15:35 Order name: EKG; Complete Time: 15:37 12/22 15:35 Order name: Cardiac monitoring; Complete Time: 15:58 12/22 15:35 Order name: EKG - Nurse/Tech; Complete Time: 15:58 12/22 15:35 Order name: IV Saline Lock; Complete Time: 16:24 12/22 15:35 Order name: Labs collected and sent; Complete Time: 16:24 12/22 15:35 Order name: O2 Per Protocol; Complete Time: 15:49 12/22 15:35 Order name: O2 Sat Monitoring; Complete Time: 15:49 lisa EC:24 Rate is 85 beats/min. Rhythm is regular. QRS [place] is Normal. DE interval is normal. QRS lisa interval is normal. QT interval is normal. No Q waves. T waves are Normal. No ST changes noted. Clinical impression: NSR w/ Non-specific ST/T Changes and No evidence of ischemia. Interpreted by me. Reviewed by me. Administered Medications: 16:27 Drug: NS 0.9% IV 500 ml Route: IV; Rate: bolus; Site: left antecubital; iw 17:00 Follow up: Response: No adverse reaction; IV Status: Completed infusion; IV Intake: ll1 500ml 16:27 Drug: Famotidine IVP 20 mg Route: IVP; Site: left antecubital; iw 17:45 Follow up: Response: No adverse reaction ll1 17:32 Drug: NS 0.9% IV 1000 ml Route: IV; Rate: 125 ml/hr; Site: right antecubital; ll1 18:04 Follow up: Response: No adverse reaction; IV Status: Order to discontinue infusion; IV ll1 Intake: 100ml Point of Care Testing: Blood Glucose: 18:03 Blood Glucose: 149 mg/dL; ll1 Ranges: Critical Glucose Levels:Adult <50 mg/dl or >400 mg/dl <40 mg/dl or >180 mg/dl Disposition Summary: 12/22/22 17:31 Discharge Ordered Location: Home lisa Problem: new lisa Symptoms: have improved lisa Condition: Stable lisa Diagnosis - Syncope Near lisa - Contusion of right knee lisa - Fall on same level, unspecified lisa Followup: lisa - With: Private Physician - When: 2 - 3 days - Reason: Recheck today's complaints, Continuance of care, Re-evaluation by your physician Followup: lisa - With: Eyal Bautista MD - When: 2 - 3 days - Reason: Recheck today's complaints, Re-evaluation by your physician Followup: lisa - With: Melodie Santiago MD - When: 2 - 3 days - Reason: Recheck today's complaints, Re-evaluation by your physician Discharge Instructions: - Discharge Summary Sheet lisa - Near-Syncope lisa - Syncope lisa - Weakness lisa - Near-Syncope, Pakw-[id number] lisa - Syncope, [id number] lisa - Weakness, [id number]-Vewt lisa Forms: - Medication Reconciliation Form lisa - Thank You Letter lisa - Antibiotic Education lisa - Prescription Opioid Use lisa - Patient Portal Instructions lisa - Leadership Thank You Letter lisa Signatures: Dispatcher [employer] EDMS Tian Stuart MD MD cha Williams, Irene, HAIDER RN Chloe Joshua RN RN hb Lewis, Lynsay, RN RN ll1 Corrections: (The following items were deleted from the chart) 15:48 15:37 Head C Spine MPR Wo Con+CT.RAD.BRZ ordered. EDMS EDMS
--- NOTE | 2022-12-22 17:32 | ER ---
Nurse's Notes [facility] Name: Robyn Carrion Age: 62 yrs Sex: Female : 1960 Arrival Date: 12/22/2022 Time: 15:25 Bed 7 Private MD: Diagnosis: Syncope Near;Contusion of right knee;Fall on same level, unspecified Presentation: 12/22 15:39 Chief complaint: Patient states: "I was walking behind my friends then the next thing I hb know they are picking me up off the ground." Pt c/o pain in low back and right leg. Denies vomiting. Coronavirus screen: At this time, the client does not indicate any symptoms associated with coronavirus-19. Ebola Screen: No symptoms or risks identified at this time. Initial Sepsis Screen: Does the patient meet any 2 criteria? No. Patient's initial sepsis screen is negative. Does the patient have a suspected source of infection? No. Patient's initial sepsis screen is negative. Risk Assessment: Do you want to hurt yourself or someone else? Patient reports no desire to harm self or others. Onset of symptoms was December 22, 2022. 15:39 Method Of Arrival: Wheelchair hb 15:39 Acuity: DARA 3 hb Triage Assessment: 18:03 General: Appears in no apparent distress. Pain: Denies pain. Neuro: Reports a syncopal ll1 episode. Historical: - Allergies: 15:40 Codeine; hb 15:40 HYDROCODONE; hb - Home Meds: 15:42 atorvastatin Oral [Active]; Carafate 1 gram Oral tab 1 tab 4 times per day [Active]; hb Creon Oral [Active]; Dicyclomine Oral [Active]; Lantus Sub-Q [Active]; lisinopril Oral [Active]; Protonix Oral [Active]; - PMHx: 15:40 cricopharyngeal spasm; fernando esophageal disease; Hernia; High Cholesterol; hb Hypertensive disorder; IDDM; Pancreatitis; vericose vein; - PSHx: 15:40 bladder prolapse SX; Cholecystectomy; ercp; hernia repair; colon removal; hysterectomy; hb polyp removed; - Immunization history:: Adult Immunizations up to date. - Social history:: Smoking status: Patient denies any tobacco usage or history of. Screenin:05 [facility] ED Fall Risk Assessment (Adult) History of falling in the last 3 months, ph including since admission Yes- physiologic fall (2 pts) Confusion or Disorientation No (0 pts) Intoxicated or Sedated No (0 pts) Impaired Gait No (0 pts) Mobility Assist Device Used No (0 pt) Altered Elimination No (0 pt) Score/Fall Risk Level 0 - 2 = Low Risk Oriented to surroundings, Maintained a safe environment, Hourly rounding (assess needs \\T\\ fall precautionary measures) done, Used ambulatory aids as needed (educated on \\T\\ assisted with). Abuse screen: Denies threats or abuse. Denies injuries from another. Nutritional screening: No deficits noted. Tuberculosis screening: No symptoms or risk factors identified. Assessment: 15:50 Reassessment: No changes from previously documented assessment. Patient and/or family ll1 updated on plan of care and expected duration. Pain level reassessed. General: Appears uncomfortable, Behavior is calm, cooperative, appropriate for age. 16:46 Reassessment: No changes from previously documented assessment. Patient and/or family ll1 updated on plan of care and expected duration. Pain level reassessed. Patient is alert, oriented x 3, equal unlabored respirations, skin warm/dry/pink. 17:03 Reassessment: No changes from previously documented assessment. Dr. Stuart at . ll1 18:02 Neuro: Level of Consciousness is awake, alert, obeys commands, Moves all extremities. ll1 Full function. 18:02 Cardiovascular: Rhythm is regular. ll1 Vital Signs: 15:39 BP 177 / 100; Pulse 89; Resp 20; Temp 98.5(O); Pulse Ox 99% on R/A; Weight 69.85 kg; hb Height 5 ft. 2 in. ; Pain 8/10; 17:05 BP 156 / 78; Pulse 73; Resp 17; Pulse Ox 100% ; ll1 17:46 BP 140 / 68; Pulse 72; Resp 18; Pulse Ox 100% ; ll1 18:01 BP 145 / 73; Pulse 60; Resp 17; Pulse Ox 100% on R/A; ll1 15:39 Body Mass Index 28.17 (69.85 kg, 157.48 cm) hb 15:39 Pain Scale: Adult hb ED Course: 15:30 Patient arrived in ED. im 15:33 Tian Stuart MD is Attending Physician. lisa 15:40 Triage completed. hb 15:41 Arm band placed on. hb 15:49 Hamlet Cochran, HAIDER is Primary Nurse. ll1 15:50 Initial lab(s) drawn, by me, sent to lab. EKG done, by ED staff. aw1 16:06 CT Traumagram (Head C Spine CAP wo con) In Process Unspecified. EDMS 16:06 Patient has correct armband on for positive identification. Bed in low position. Call ph light in reach. Side rails up X2. Pulse ox on. NIBP on. Door closed. Noise minimized. Warm blanket given. 16:15 XRAY Chest (1 view) In Process Unspecified. EDMS 16:24 SARS RAPID Sent. aw1 16:24 Flu Sent. aw1 16:24 Inserted saline lock: 20 gauge in left antecubital area, using aseptic technique. aw1 16:31 Flu Sent. ll1 16:31 SARS RAPID Sent. ll1 17:30 Eyal Bautista MD is Referral Physician. lisa 17:31 Melodie Santiago MD is Referral Physician. lisa 18:02 No provider procedures requiring assistance completed. IV discontinued, intact, ll1 bleeding controlled, No redness/swelling at site. Pressure dressing applied. 18:03 Provided Education on: n/a. ll1 Administered Medications: 16:27 Drug: NS 0.9% IV 500 ml Route: IV; Rate: bolus; Site: left antecubital; iw 17:00 Follow up: Response: No adverse reaction; IV Status: Completed infusion; IV Intake: ll1 500ml 16:27 Drug: Famotidine IVP 20 mg Route: IVP; Site: left antecubital; iw 17:45 Follow up: Response: No adverse reaction ll1 17:32 Drug: NS 0.9% IV 1000 ml Route: IV; Rate: 125 ml/hr; Site: right antecubital; ll1 18:04 Follow up: Response: No adverse reaction; IV Status: Order to discontinue infusion; IV ll1 Intake: 100ml Medication: 16:06 VIS not applicable for this client. ph Point of Care Testing: Blood Glucose: 18:03 Blood Glucose: 149 mg/dL; ll1 Ranges: Intake: 17:00 IV: 500ml; Total: 500ml. ll1 18:04 IV: 100ml; Total: 600ml. ll1 Outcome: 17:31 Discharge ordered by . lisa 18:02 Discharged to home via wheelchair. ll1 18:02 Condition: stable 18:02 Discharge instructions given to patient, family, Instructed on discharge instructions, follow up and referral plans. Demonstrated understanding of instructions, follow-up care. 18:04 Patient left the ED. ll1 Signatures: Dispatcher [employer] EDRI Tian Stuart MD MD cha Williams, Irene, RN HAIDER Francine Duckworth RN RN ph Baxter, Heather, Hamlet Guardado RN, RN RN [facility] Pooja Mcclure Alyssa aw
[2022-12-22 18:50] VITALS: TEMP 98.5
[2022-12-22 18:52] VITALS: O2SAT 100
[2022-12-22 18:54] VITALS: BP 145/73
--- NOTE | 2022-12-25 19:12 | EKG ---
Test Date: 2022-12-22 Test Time: 15:55:22 Carbon Grinder: JOSE DE JESUS MEASUREMENT RESULTS: Intervals: Rate: 85 WY: 152 QRSD: 78 QT: 364 QTc: 433 [place]: P: 25 WY: 152 QRS: 69 T: 22 INTERPRETIVE STATEMENTS: Normal sinus rhythm Normal ECG Compared to ECG 04/12/2022 11:26:37 Myocardial infarct finding no longer present Electronically Signed On 12-25-22 19:07:36 CDT by Eyal Bautista
== END 2022-12-22 18:04 | disposition home or self-care (01) ==
LOC: ER 15:25
DX: R55 Syncope and collapse (principal); S80.01XA Contusion of right knee, initial encounter; W18.30XA Fall on same level, unspecified, initial encounter; I10 Essential (primary) hypertension; E11.9 Type 2 diabetes mellitus without complications; Z20.822 Contact with and (suspected) exposure to COVID-19; Z88.5 Allergy status to narcotic agent; Z79.4 Long term (current) use of insulin
CPT/HCPCS: 96361; 85025; 80048; 36415; 83735; 85610; 80076; 84484; 83690; 83880; 87804 ×2; 70450; 71250; 72125; 71045; 96374; 99284; 87811; J7030; 93005

== ENCOUNTER → 2023-04-25 | Emergency (ER) | payer OTHER ==
[~2023-04-25] MED LIST: KETOROLAC 30 MG/ML INJ ONE; LIDOCAINE 1% MPF 5 ML VIAL ONE
--- NOTE | 2023-04-25 23:36 | EDPHYS ---
Physician Documentation [facility] Name: Robyn Carrion Age: 62 yrs Sex: Female : 1960 Arrival Date: 04/25/2023 Time: 22:08 Bed 14 Private MD: ED Physician Ishan Chang HPI: 04/25 23:37 This 62 yrs old Female presents to ER via Wheelchair with complaints of Fall kb Injury, Knee Injury, Laceration To Leg. 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 c/o left knee pain and laceration to left knee. Historical: - Allergies: 22:22 Codeine; km8 22:22 HYDROCODONE; km8 - PMHx: 22:22 fernando esophageal disease; cricopharyngeal spasm; Hernia; High Cholesterol; km8 Hypertensive disorder; IDDM; Pancreatitis; vericose vein; - PSHx: 22:22 bladder prolapse SX; Cholecystectomy; colon removal; ercp; hernia repair; hysterectomy; km8 polyp removed; - Immunization history:: Client reports receiving the 2nd dose of the Covid vaccine, Last tetanus immunization: up to date < 5 years ago Flu vaccine is not up to date. - Social history:: Smoking status: Patient denies any tobacco usage or history of. Patient uses alcohol, but reports only rare drinking. Patient/guardian denies using street drugs. ROS: 23:37 Constitutional: Negative for fever, chills, and weight loss, kb 23:37 MS/extremity: Positive for pain, of the left knee, 23:37 Skin: Positive for laceration(s), of the left knee, 23:37 All other systems are negative, Exam: 23:37 Constitutional: This is a well developed, well nourished patient who is awake, alert, kb and in no acute distress. Head/Face: Normocephalic, atraumatic. ENT: Moist Mucous membranes Cardiovascular: Regular rate Respiratory: Respirations even and unlabored. No increased work of breathing. Talking in full sentences Neuro: Awake and alert, GCS 15, oriented to person, place, time, and situation. Moves all extremities. Normal gait. 23:37 Musculoskeletal/extremity: Extremities: grossly normal except: noted in the left knee: laceration, pain, tenderness, ROM: intact in all extremities, Circulation is intact in all extremities. Sensation intact. Weight bearing: able to fully bear weight, Vital Signs: 22:20 BP 145 / 77; Pulse 78; Resp 16; Temp 98.2(O); Pulse Ox 98% on R/A; Weight 69.85 kg (R); km8 Height 5 ft. 1 in. (R); Pain 8/10; 22:45 BP 126 / 56; Pulse 71; Resp 17 S; Pulse Ox 98% on R/A; ha1 23:30 BP 123 / 63; Pulse 70; Resp 17 S; Pulse Ox 98% on R/A; ha1 22:20 Body Mass Index 29.10 (69.85 kg, 154.94 cm) km 22:20 Pain Scale: Adult km Laceration: 23:34 Wound Repair of 2.5cm ( 1.0in ) subcutaneous laceration to left knee. Irregularly kb shaped.. Skin/tissue flap noted.. Distal neuro/vascular/tendon intact. Anesthesia: Wound infiltrated with 4 mls of 1% lidocaine. Wound prep: Extensive cleansing with hibiclenz by me, Wound irrigation with saline by wy. Skin closed with 5 5-0 Prolene using simple sutures and sterile technique. Patient tolerated well. MDM: 22:14 Patient medically screened. kb 23:34 Differential diagnosis: contusion, fracture, laceration. Data reviewed: vital signs, kb nurses notes. Counseling: I had a detailed discussion with the patient and/or guardian regarding the historical points, exam findings, and any diagnostic results supporting the discharge/admit diagnosis, radiology results, the need for outpatient follow up, a family practitioner, to return to the emergency department if symptoms worsen or persist or if there are any questions or concerns that arise at home. 04/25 22:35 Order name: Knee Left 3 View XRAY kb 04/25 22:35 Order name: Dressing - Wound; Complete Time: 23:38 kb 04/25 22:35 Order name: Gloves, Sterile; Complete Time: 22:49 kb 04/25 22:35 Order name: Prolene, Sutures; Complete Time: 22:49 kb 04/25 22:35 Order name: Setup Suture Tray; Complete Time: 22:49 kb 04/25 23:35 Order name: Jonny Wrap; Complete Time: 23:38 kb Administered Medications: 22:49 Drug: Ketorolac IM 30 mg IM once Route: IM; Site: right deltoid; ha1 23:15 Follow up: Response: No adverse reaction; Pain is decreased ha1 23:15 Drug: Lidocaine Infiltration (1 %) 1 vials 5 ml Infiltration once; to bedside {Note: ha1 administered by care provider Murali .} Volume: 5 ml; Route: Infiltration; 23:55 Follow up: Response: No adverse reaction ha1 Disposition Summary: 04/25/23 23:36 Discharge Ordered Notes: Location: Home kb Condition: Stable kb Diagnosis - Laceration without foreign body of knee kb - Contusion of left knee kb Followup: kb - With: Emergency Department - When: As needed - Reason: Worsening of condition Followup: kb - With: Private Physician - When: 2 - 3 days - Reason: Recheck today's complaints, Continuance of care, Re-evaluation by your physician Discharge Instructions: - Discharge Summary Sheet kb - Contusion, [id number] kb - Laceration Care, Adult, [id number] kb Forms: - Medication Reconciliation Form kb - Thank You Letter kb - Antibiotic Education kb - Prescription Opioid Use kb - Patient Portal Instructions kb - Leadership Thank You Letter kb Prescriptions: - Cephalexin 500 mg Oral Capsule - take 1 capsule ORAL route every 8 hours for 10 days; 30 capsule; Refills: 0, kb Product Selection Permitted Signatures: Dispatcher [employer] Tracy Ortega, BEE-C SECURITY TRAINER-Vane Silveira, RN RN ha1 Kimberly Martinez RN RN km8
--- NOTE | 2023-04-25 23:36 | ER ---
Nurse's Notes [facility] Name: Robyn Carrion Age: 62 yrs Sex: Female : 1960 Arrival Date: 04/25/2023 Time: 22:08 Bed 14 Private MD: Diagnosis: Laceration without foreign body of knee;Contusion of left knee Presentation: 04/25 22:20 Chief complaint: Patient states: slipping and fell; now has a laceration to left knee; km8 denies hitting head or any LOC. Coronavirus screen: Client denies travel out of the [place] in the last 14 days. Ebola Screen: No symptoms or risks identified at this time. Initial Sepsis Screen: Does the patient meet any 2 criteria? No. Patient's initial sepsis screen is negative. Does the patient have a suspected source of infection? No. Patient's initial sepsis screen is negative. Risk Assessment: Do you want to hurt yourself or someone else? Patient reports no desire to harm self or others. Onset of symptoms was April 25, 2023 at 22:00. 22:20 Method Of Arrival: Wheelchair km8 22:20 Acuity: DARA 3 km8 Triage Assessment: 22:22 General: Appears in no apparent distress. uncomfortable, Behavior is calm, cooperative, km8 appropriate for age. Pain: Complains of pain in left knee Pain currently is 8 out of 10 on a pain scale. EENT: No signs and/or symptoms were reported regarding the EENT system. Neuro: Level of Consciousness is awake, alert, obeys commands, Oriented to person, place, time, situation. Cardiovascular: Denies chest pain, shortness of breath, Capillary refill < 3 seconds Patient's skin is warm and dry. Respiratory: Airway is patent Respiratory effort is even, unlabored, Respiratory pattern is regular, symmetrical. GI: No signs and/or symptoms were reported involving the gastrointestinal system. : No signs and/or symptoms were reported regarding the genitourinary system. Derm: Skin is healthy with good turgor, Skin is dry, Skin is pink, warm \T\ dry. normal, Skin temperature is warm Wound noted left knee Wound is laceration. Musculoskeletal: Circulation, motion, and sensation intact. Range of motion: intact in all extremities, Reports pain in left knee. Historical: - Allergies: 22:22 Codeine; km8 22:22 HYDROCODONE; km8 - PMHx: 22:22 fernando esophageal disease; cricopharyngeal spasm; Hernia; High Cholesterol; km8 Hypertensive disorder; IDDM; Pancreatitis; vericose vein; - PSHx: 22:22 bladder prolapse SX; Cholecystectomy; colon removal; ercp; hernia repair; hysterectomy; km8 polyp removed; - Immunization history:: Client reports receiving the 2nd dose of the Covid vaccine, Last tetanus immunization: up to date < 5 years ago Flu vaccine is not up to date. - Social history:: Smoking status: Patient denies any tobacco usage or history of. Patient uses alcohol, but reports only rare drinking. Patient/guardian denies using street drugs. Screenin:30 [facility] ED Fall Risk Assessment (Adult) History of falling in the last 3 months, ha1 including since admission Yes- single mechanical fall (1 pt) Confusion or Disorientation No (0 pts) Intoxicated or Sedated No (0 pts) Impaired Gait No (0 pts) Mobility Assist Device Used No (0 pt) Altered Elimination No (0 pt) Score/Fall Risk Level 0 - 2 = Low Risk Oriented to surroundings, Maintained a safe environment, Hourly rounding (assess needs \T\ fall precautionary measures) done. Abuse screen: Denies threats or abuse. Denies injuries from another. Nutritional screening: No deficits noted. Tuberculosis screening: No symptoms or risk factors identified. Assessment: 22:24 General: Appears uncomfortable, Behavior is calm, cooperative. Pain: Complains of pain ha1 in left knee Pain does not radiate. Pain currently is 9 out of 10 on a pain scale. Quality of pain is described as burning, throbbing. Neuro: Level of Consciousness is awake, alert, obeys commands, Oriented to person, place, time, situation. Cardiovascular: Patient's skin is warm and dry. Respiratory: Airway is patent Respiratory effort is even, unlabored, Respiratory pattern is regular, symmetrical. Musculoskeletal: Circulation, motion, and sensation intact. Range of motion:. Injury Description: Laceration sustained to left knee is clean, 2.6 to 7.5 cm long, a small amount of bleeding noted at this time. A dressing was applied. 23:30 Reassessment: Patient and/or family updated on plan of care and expected duration. Pain ha1 level reassessed. Patient is alert, oriented x 3, equal unlabored respirations, skin warm/dry/pink. Vital Signs: 22:20 BP 145 / 77; Pulse 78; Resp 16; Temp 98.2(O); Pulse Ox 98% on R/A; Weight 69.85 kg (R); km8 Height 5 ft. 1 in. (R); Pain 8/10; 22:45 BP 126 / 56; Pulse 71; Resp 17 S; Pulse Ox 98% on R/A; ha1 23:30 BP 123 / 63; Pulse 70; Resp 17 S; Pulse Ox 98% on R/A; ha1 22:20 Body Mass Index 29.10 (69.85 kg, 154.94 cm) km8 22:20 Pain Scale: Adult km8 ED Course: 22:13 Patient arrived in ED. jj6 22:14 [facility] kb 22:14 Ishan Chang MD is Attending Physician. kb 22:22 Triage completed. km8 22:24 Arm band placed on right wrist. km8 22:24 Patient has correct armband on for positive identification. Placed in gown. Bed in low ha1 position. Call light in reach. Side rails up X 1. Adult w/ patient. 22:26 Vane Gupta, RN is Primary Nurse. ha1 22:59 Knee Left 3 View XRAY In Process Unspecified. EDMS 04/26 00:00 No provider procedures requiring assistance completed. Patient did not have IV access ha1 during this emergency room visit. 00:01 Provided Education on: following up for stitching removal . ha1 Administered Medications: 04/25 22:49 Drug: Ketorolac IM 30 mg IM once Route: IM; Site: right deltoid; ha1 23:15 Follow up: Response: No adverse reaction; Pain is decreased ha1 23:15 Drug: Lidocaine Infiltration (1 %) 1 vials 5 ml Infiltration once; to bedside {Note: ha1 administered by care provider Murali .} Volume: 5 ml; Route: Infiltration; 23:55 Follow up: Response: No adverse reaction ha1 Medication: 23:59 VIS not applicable for this client. ha1 Outcome: 23:36 Discharge ordered by . kb 04/26 00:00 Discharged to home via wheelchair, with family, ha1 Condition: stable Discharge instructions given to patient, family, Instructed on discharge instructions, follow up and referral plans. medication usage, Demonstrated understanding of instructions, follow-up care, medications, Prescriptions given X 1, 00:01 Patient left the ED. ha1 Signatures: Dispatcher [employer] EDIL Tracy Carrion, BEE-C ENVIRONMENTAL SERVICES AIDE-Nkechi Olivia jj6 Vane Gupta RN RN ha1 Kimberly Martinez RN RN km8
[2023-04-26 05:59] VITALS: BP 123/63; TEMP 98.2; O2SAT 98
--- NOTE | 2023-04-26 15:38 | RAD REPORT ---
EXAM DESCRIPTION: RAD - Knee Left 3 View - 04/25/2023 10:58 pm CLINICAL HISTORY: 62 years, Female, PAIN COMPARISON: None FINDINGS: 3 X-ray views of the left knee (frontal lateral and oblique views) were performed. Bones: No areas of acute bony injuries were demonstrated. Soft tissues: No significant soft tissue swelling. Joints: There is no joint effusion. Others: There are no gross intraosseous lesions. No periosteal reaction were seen. IMPRESSION: No acute bony injuries were demonstrated. Electronically signed by: Brain Armas MD 04/25/2023 11:11 PM [employer] SUPERVISOR Due to temporary technical issues with the PACS/Fluency reporting system, reports are being signed by the in house radiologist without review as a courtesy to ensure prompt reporting. The interpreting r adiologist is fully responsible for the content of the report.
== END ==
LOC: ER 22:08
PROC: 0HQLXZZ Repair Left Lower Leg Skin, External Approach (ICD-10-PCS; principal; 2023-04-25)
DX: S81.012A Laceration without foreign body, left knee, initial encounter (principal); S80.02XA Contusion of left knee, initial encounter; Z88.5 Allergy status to narcotic agent
CPT/HCPCS: 73562; 12001; J2001

== ENCOUNTER → 2023-05-08 | Emergency (ER) | payer OTHER ==
--- NOTE | 2023-05-08 17:54 | RAD REPORT ---
EXAM DESCRIPTION: US - Extremity Venous Uni Ltd - 05/08/2023 5:48 pm CLINICAL HISTORY: PAIN Leg swelling and edema. COMPARISON: Extremity Venous Uni Ltd dated 01/26/2021 FINDINGS: Left lower extremity venous system was interrogated with Doppler technique. Normal flow, c ompressibility and augmentation was noted. There is no DVT present. IMPRESSION: No evidence of left lower extremity deep venous thrombosis.
--- NOTE | 2023-05-08 18:23 | ER ---
Nurse's Notes [facility] Name: Robyn Carrion Age: 62 yrs Sex: Female : 1960 Arrival Date: 05/08/2023 Time: 16:44 Bed 9 Private MD: Diagnosis: Pain in left lower leg;Encounter for removal of sutures Presentation: 05/08 16:52 Chief complaint: Patient states: Pt c/o sudden onset of left calf pain x 2 hours ago. tl4 Pt states pain gets significantly worse with weight bearing. Pt denies injury. Coronavirus screen: At this time, the client does not indicate any symptoms associated with coronavirus-19. Ebola Screen: No symptoms or risks identified at this time. Initial Sepsis Screen: Does the patient meet any 2 criteria? No. Patient's initial sepsis screen is negative. Does the patient have a suspected source of infection? No. Patient's initial sepsis screen is negative. Risk Assessment: Do you want to hurt yourself or someone else? Patient reports no desire to harm self or others. Onset of symptoms was May 08, 2023 at 15:00. 16:52 Method Of Arrival: Ambulatory tl4 16:52 Acuity: DARA 3 tl4 Triage Assessment: 16:56 General: Appears uncomfortable, Behavior is calm, cooperative. Pain: Complains of pain tl4 in left leg. EENT: No deficits noted. No signs and/or symptoms were reported regarding the EENT system. Neuro: No deficits noted. Cardiovascular: No deficits noted. Denies chest pain, diaphoresis, fatigue, lightheadedness, palpitations. Respiratory: No deficits noted. Denies cough, shortness of breath. GI: No deficits noted. No signs and/or symptoms were reported involving the gastrointestinal system. : No deficits noted. No signs and/or symptoms were reported regarding the genitourinary system. Derm: No deficits noted. No signs and/or symptoms reported regarding the dermatologic system. Historical: - Allergies: 16:54 Codeine; tl4 16:54 HYDROCODONE; tl4 - PMHx: 16:54 fernando esophageal disease; vericose vein; Pancreatitis; cricopharyngeal spasm; Hernia; tl4 High Cholesterol; Hypertensive disorder; IDDM; 16:55 Crohn's disease; tl4 - PSHx: 16:54 bladder prolapse SX; Cholecystectomy; colon removal; ercp; hernia repair; hysterectomy; tl4 polyp removed; - Immunization history:: Adult Immunizations unknown. - Social history:: Smoking status: Patient denies any tobacco usage or history of. Screenin:11 [facility] ED Fall Risk Assessment (Adult) Score/Fall Risk Level 0 - 2 = Low Risk nj1 Oriented to surroundings, Maintained a safe environment, Hourly rounding (assess needs \T\ fall precautionary measures) done. Abuse screen: Denies threats or abuse. Denies injuries from another. Nutritional screening: No deficits noted. Tuberculosis screening: No symptoms or risk factors identified. Assessment: 18:05 General: Appears in no apparent distress. uncomfortable, Behavior is calm, cooperative, nj1 appropriate for age. 18:05 Pain: Complains of pain in left calf Pain currently is 7 out of 10 on a pain scale. at nj1 worst was 10 out of 10 on a pain scale. Alleviated by rest, Aggravated by exercise, weight bearing. Neuro: Level of Consciousness is awake, alert, obeys commands, Oriented to person, place, time, situation. Cardiovascular: Patient's skin is warm and dry. Respiratory: Airway is patent Respiratory effort is even, unlabored. Musculoskeletal: Reports pain in left calf since today. Vital Signs: 16:52 BP 162 / 91; Pulse 71; Resp 16; Temp 99.3(O); Pulse Ox 99% on R/A; Weight 69.85 kg; tl4 Height 5 ft. 1 in. ; Pain 10/10; 18:35 BP 134 / 86; Pulse 75; Resp 18; Pulse Ox 98% on R/A; Pain 7/10; nj1 16:52 Body Mass Index 29.10 (69.85 kg, 154.94 cm) tl4 16:52 Pain Scale: Adult tl4 18:35 Pain Scale: Adult nj1 ED Course: 16:46 Patient arrived in ED. ra3 16:52 Tracy Carrion FNP-C is PHCP. kb 16:52 Tian Stuart MD is Attending Physician. kb 16:54 Triage completed. tl4 16:57 Arm band placed on right wrist. tl4 17:50 US Extremity Venous Unilateral Ltd In Process Unspecified. EDMS 18:05 Vika Batista, HAIDER is Primary Nurse. nj1 18:05 Patient has correct armband on for positive identification. Bed in low position. Call nj1 light in reach. Side rails up X 1. Adult w/ patient. 18:05 Provided Education on: call light, fall precautions. nj1 18:35 No provider procedures requiring assistance completed. Patient did not have IV access nj1 during this emergency room visit. Administered Medications: No medications were administered Medication: 18:35 VIS not applicable for this client. nj1 Outcome: 18:22 Discharge ordered by MD. cai 18:35 Discharged to home via wheelchair, with family, nj1 18:35 Condition: stable 18:35 Discharge instructions given to patient, Instructed on discharge instructions, follow up and referral plans. medication usage, safety practices, Demonstrated understanding of instructions, follow-up care, medications, Prescriptions given X 1, 18:40 Patient left the ED. nj1 Signatures: Dispatcher [employer] EDMS Tracy Carrion, STACKER STRAIGHTENER-C STACKER STRAIGHTENER-Vika Seymour RN RN nj1 Logdapauly, Guererro tl4 Mechelle Goff ra3 Corrections: (The following items were deleted from the chart) 16:56 16:52 Chief complaint: Patient states: Pt c/o sudden onset of left calf pain x 2 hours tl4 ago. Pt states pain gets significantly worse with weight bearing. Pt denies injury. tl4 18:46 18:45 Patient left the ED. nj1 nj1
--- NOTE | 2023-05-08 18:23 | EDPHYS ---
Physician Documentation [facility] Name: Robyn Carrion Age: 62 yrs Sex: Female : 1960 Arrival Date: 05/08/2023 Time: 16:44 Bed 9 Private MD: ED Physician Tian Stuart HPI: 05/08 17:08 This 62 yrs old Female presents to ER via Ambulatory with complaints of Leg kb Pain. 17:08 Patient is a 62-year-old female who presents with left calf pain that started 2 hours kb prior to arrival. Denies injury or trauma.. Historical: - Allergies: 16:54 Codeine; tl4 16:54 HYDROCODONE; tl4 - PMHx: 16:54 fernando esophageal disease; vericose vein; Pancreatitis; cricopharyngeal spasm; Hernia; tl4 High Cholesterol; Hypertensive disorder; IDDM; 16:55 Crohn's disease; tl4 - PSHx: 16:54 bladder prolapse SX; Cholecystectomy; colon removal; ercp; hernia repair; hysterectomy; tl4 polyp removed; - Immunization history:: Adult Immunizations unknown. - Social history:: Smoking status: Patient denies any tobacco usage or history of. ROS: 17:05 Constitutional: Negative for fever, chills, and weight loss, kb 17:05 MS/extremity: Positive for pain, of the left calf, 17:05 All other systems are negative, Exam: 17:05 Constitutional: This is a well developed, well nourished patient who is awake, alert, kb and in no acute distress. Head/Face: Normocephalic, atraumatic. ENT: Moist Mucous membranes Cardiovascular: Regular rate Respiratory: Respirations even and unlabored. No increased work of breathing. Talking in full sentences Neuro: Awake and alert, GCS 15, oriented to person, place, time, and situation. Moves all extremities. Normal gait. 17:05 Musculoskeletal/extremity: Extremities: grossly normal except: noted in the left calf: pain, tenderness, ROM: intact in all extremities, Circulation is intact in all extremities. Sensation intact. Weight bearing: able to fully bear weight, 17:05 Skin: Wound recheck: Suture laceration closure: the wound is healing well, the edges are well approximated, no evidence of dehiscence, no drainage, no erythema, no swelling, Left knee, Vital Signs: 16:52 BP 162 / 91; Pulse 71; Resp 16; Temp 99.3(O); Pulse Ox 99% on R/A; Weight 69.85 kg; tl4 Height 5 ft. 1 in. ; Pain 10/10; 18:35 BP 134 / 86; Pulse 75; Resp 18; Pulse Ox 98% on R/A; Pain 7/10; nj1 16:52 Body Mass Index 29.10 (69.85 kg, 154.94 cm) tl4 16:52 Pain Scale: Adult tl4 18:35 Pain Scale: Adult nj1 Procedures: 18:21 Suture/Staple removal: Removed 5 sutures, from left knee, site appears well healed, kb Patient tolerated well. MDM: 16:52 Patient medically screened. kb 17:07 Differential diagnosis: strain, dvt. Data reviewed: vital signs, nurses notes. kb 18:21 Counseling: I had a detailed discussion with the patient and/or guardian regarding the kb historical points, exam findings, and any diagnostic results supporting the discharge/admit diagnosis, radiology results, the need for outpatient follow up, a family practitioner, to return to the emergency department if symptoms worsen or persist or if there are any questions or concerns that arise at home. ED course: Pt has follow up with PCP scheduled for Sunday. 05/08 16:57 Order name: US Extremity Venous Unilateral Ltd; Complete Time: 18:04 kb Administered Medications: No medications were administered Disposition Summary: 05/08/23 18:22 Discharge Ordered Notes: Location: Home kb Condition: Stable kb Diagnosis - Pain in left lower leg kb - Encounter for removal of sutures kb Followup: kb - With: Emergency Department - When: As needed - Reason: Worsening of condition Followup: kb - With: Private Physician - When: 2 - 3 days - Reason: Recheck today's complaints, Continuance of care, Re-evaluation by your physician Discharge Instructions: - Discharge Summary Sheet kb - Musculoskeletal Pain kb - Suture Removal, Care After kb Forms: - Medication Reconciliation Form kb - Thank You Letter kb - Antibiotic Education kb - Prescription Opioid Use kb - Patient Portal Instructions kb - Leadership Thank You Letter kb Prescriptions: - Diclofenac Sodium 75 mg Oral tablet, delayed release (enteric coated) - take 1 tablet ORAL route 2 times per day As needed; 30 tablet; Refills: 0, kb Product Selection Permitted - orphenadrine citrate 100 mg Oral Tablet Sustained Release - take 1 tablet ORAL route 2 times per day As needed; 20 tablet; Refills: 0, kb Product Selection Permitted Signatures: Dispatcher [employer] Tracy Ortega FNP-C FNP-Ckb Logdahl, Toni tl4
[2023-05-09 04:52] VITALS: BP 134/86; TEMP 99.3; O2SAT 98
== END ==
LOC: ER 16:44
DX: Z48.02 Encounter for removal of sutures (principal); M79.605 Pain in left leg
CPT/HCPCS: 93971

== ENCOUNTER → 2023-06-13 | Emergency (ER) | payer OTHER ==
[~2023-06-13] MED LIST changes: +FAMOTIDINE 20 MG/2 ML VIAL IV ONE; -KETOROLAC 30 MG/ML INJ ONE; -LIDOCAINE 1% MPF 5 ML VIAL ONE; +MORPHINE 4 MG/ML SYR ONE; +NA CHLORIDE 0.9% 1,000 ML ONE; +ONDANSETRON 4 MG/2 ML VIAL ONE
[2023-06-13 16:15] LABS: Absolute Basophils 0.1 K/uL (0-0.5); Absolute Eosinophils 0.1 K/uL (0-0.5); Absolute Lymphocytes (CBC) 2.4 K/uL (0.7-4.9); Basophils % 0.8 % (0-1.3); Hematocrit 44.4 % (36.0-45.0); Hemoglobin 15.5 g/dL (12.0-15.0); Lymphocytes % 25.8 % (15.3-44.8); MCV 87.7 fL (80-100); MPV 7.7 fL (7.6-11.3); Platelets 276 thou/uL (152-406); RBC Red Blood Cell Count 5.06 M/uL (3.86-4.86)
[2023-06-13 16:17] LABS: Specific Gravity 1.028 (1.005-1.030); Urine Bacteria <20 /HPF (<20); Urine Bilirubin NEGATIVE (Negative); Urine Blood Negative (Negative); Urine Clarity Clear (Clear); Urine Color Light-Yellow (Yellow); Urine Glucose 4+ (Over) (Negative); Urine Mucus Slight /HPF (None Seen); Urine Protein NEGATIVE (Negative); Urine RBC <5 /HPF (None Seen); Urine Urobilinogen Normal (Normal)
[2023-06-13 16:29] LABS: Albumin 3.9 g/dL (3.4-5.0); Albumin/Globulin Ratio 0.8 (1.1-1.8); Anion Gap 8.8 mEq/L (5.0-15.0); Bilirubin Total 0.4 mg/dL (0.2-1.0); Globulin 4.8 g/dL (2.3-3.5); Potassium 3.8 mEq/L (3.5-5.1); Protein, Total 8.7 g/dL (6.4-8.2)
--- NOTE | 2023-06-13 17:39 | RAD REPORT ---
EXAM DESCRIPTION: CTPelvis Angio06/13/2023 5:09 pm CLINICAL HISTORY: Abdominal and pelvic pain COMPARISON: May 2023 TECHNIQUE: CT angiogram of the pelvis obtained. 100 cc Isovue 370 administered intravenously. MIPS reconstruction performed All CT scans are performed using dose optimization technique as appropriate and may include automated exposure control or mA/KV adjustment according to patient size. FINDINGS: Minimal plaque present within common iliac, internal iliac, external iliac and common femo ral arteries. No dissection No aneurysm Visualized bowel caliber and wall thickness is normal. Sigmoidectomy IMPRESSION: No significant abnormality is displayed
--- NOTE | 2023-06-13 17:40 | RAD REPORT ---
EXAM DESCRIPTION: CTAbdomen Angio06/13/2023 5:10 pm CLINICAL HISTORY: Abdominal pain COMPARISON: May 2023 TECHNIQUE: CT angiogram of the abdomen obtained. 100 cc Isovue 370 administered intravenously. MIPS reconstruction performed All CT scans are performed using dose optimization technique as appropriate and may include automated exposure control or mA/KV adjustment according to patient size. FINDINGS: Mild plaque is present within the abdominal aorta. No aneurysm. No dissection. SMA, HELIO and celiac arteries patent No significant renal arterial stenosis Mild fatty liver. Cholecystectomy. Spleen, pancreas, adrenals and kidneys unremarkable Bowel caliber and wall thickness is normal. Small umbilical hernia. Normal appendix IMPRESSION: Mild plaque within the abdominal aorta. No acute abnormality displayed
--- NOTE | 2023-06-13 19:30 | ER ---
Nurse's Notes [facility] Name: Robyn Carrion Age: 62 yrs Sex: Female : 1960 Arrival Date: 06/13/2023 Time: 14:39 Bed 20 Private MD: Diagnosis: Upper abdominal pain, unspecified;Essential (primary) hypertension Presentation: 06/12 14:58 Chief complaint: Patient states: Pt c/o progressively worsening right upper quadrant tl4 pain that radiates into her back that got much worse today. Coronavirus screen: At this time, the client does not indicate any symptoms associated with coronavirus-19. Ebola Screen: No symptoms or risks identified at this time. Initial Sepsis Screen: Does the patient meet any 2 criteria? No. Patient's initial sepsis screen is negative. Does the patient have a suspected source of infection? No. Patient's initial sepsis screen is negative. Risk Assessment: Do you want to hurt yourself or someone else? Patient reports no desire to harm self or others. Onset of symptoms is unknown. 14:58 Method Of Arrival: Ambulatory tl4 14:58 Acuity: DARA 3 tl4 Triage Assessment: 15:02 General: Appears uncomfortable, Behavior is calm, cooperative. Pain: Complains of pain tl4 in back and abdomen. EENT: No deficits noted. No signs and/or symptoms were reported regarding the EENT system. Neuro: No deficits noted. Cardiovascular: No deficits noted. Respiratory: No deficits noted. GI: Reports upper abdominal pain, diarrhea, nausea, vomiting. : No signs and/or symptoms were reported regarding the genitourinary system. Derm: No deficits noted. No signs and/or symptoms reported regarding the dermatologic system. Musculoskeletal: No deficits noted. No signs and/or symptoms reported regarding the musculoskeletal system. Historical: - Allergies: 15:03 No Known Allergies; tl4 - PMHx: 15:03 fernando esophageal disease; cricopharyngeal spasm; Crohn's Disease; Hernia; High tl4 Cholesterol; Hypertensive disorder; IDDM; vericose vein; Pancreatitis; - PSHx: 15:03 bladder prolapse SX; Cholecystectomy; colon removal; ercp; hernia repair; hysterectomy; tl4 polyp removed; - Immunization history:: Adult Immunizations unknown. - Social history:: Smoking status: Patient denies any tobacco usage or history of. Screenin:30 [facility] ED Fall Risk Assessment (Adult) History of falling in the last 3 months, me1 including since admission No falls in past 3 months (0 pts) Confusion or Disorientation No (0 pts) Intoxicated or Sedated No (0 pts) Impaired Gait No (0 pts) Mobility Assist Device Used No (0 pt) Altered Elimination No (0 pt) Score/Fall Risk Level 0 - 2 = Low Risk Maintained a safe environment, Provided non-skid footwear, Hourly rounding (assess needs \T\ fall precautionary measures) done. Abuse screen: Denies threats or abuse. Nutritional screening: No deficits noted. Tuberculosis screening: No symptoms or risk factors identified. Assessment: 18:30 General: Appears uncomfortable, well groomed, well developed, well nourished, Behavior me1 is calm, cooperative, appropriate for age, Reports Pt c/o progressively worsening left upper quadrant pain that radiates into her back that got much worse today. Pain: Complains of pain in left upper quadrant Pain radiates to back Pain currently is 10 out of 10 on a pain scale. Quality of pain is described as sharp, shooting, Pain began months ago but has progressively worsened. Neuro: Level of Consciousness is awake, alert, obeys commands, Oriented to person, place, time, situation, Appropriate for age. Cardiovascular: Capillary refill < 3 seconds Patient's skin is warm and dry. Respiratory: Airway is patent Trachea midline Respiratory effort is even, unlabored, Respiratory pattern is regular, symmetrical. GI: Abdomen is non-distended, Bowel sounds present X 4 quads. Abd is soft and non tender X 4 quads. Reports upper abdominal pain, nausea, vomiting. Vital Signs: 14:58 BP 165 / 95; Pulse 82; Resp 20; Temp 98.7(O); Pulse Ox 100% ; Weight 65.77 kg; Height 5 tl4 ft. 1 in. ; Pain 10/10; 18:30 BP 185 / 85; Pulse 72; Resp 19; Pulse Ox 98% on R/A; me1 19:15 BP 180 / 81; Pulse 59; Resp 17; Pulse Ox 100% on R/A; me1 14:58 Body Mass Index 27.40 (65.77 kg, 154.94 cm) tl4 14:58 Pain Scale: Adult tl4 ED Course: 14:41 Patient arrived in ED. mg5 14:42 Coy Reyes DO is Attending Physician. ms3 14:43 [facility] kb 15:01 Triage completed. tl4 15:02 Arm band placed on right wrist. tl4 15:58 Inserted saline lock: 20 gauge in left antecubital area, using aseptic technique. Blood ls5 collected. 16:04 Urinalysis w/ reflexes Sent. me1 16:04 Urine collected: clean catch specimen, clear. me1 17:11 Pelvis Angio In Process Unspecified. EDMS 17:11 Abdomen Angio In Process Unspecified. EDMS 18:24 Frieda Crow, HAIDER is Primary Nurse. me1 18:28 Attending Physician role handed off by Coy Reyes DO ms3 18:28 Antony Ely MD is Attending Physician. ms3 18:30 Patient has correct armband on for positive identification. Bed in low position. Call me1 light in reach. Side rails up X 1. Provided Education on: POC. Verbalized understanding. . 18:30 Client placed on continuous cardiac and pulse oximetry monitoring. NIBP monitoring me1 applied. Pulse ox on. NIBP on. 18:30 No provider procedures requiring assistance completed. me1 18:31 Lactate w/ 2H reflex if indic. Sent. me1 18:31 Initial lab(s) drawn, by me, sent to lab. me1 19:29 Melodie Santiago MD is Referral Physician. rn 19:57 IV discontinued, intact, bleeding controlled, No redness/swelling at site. Pressure me1 dressing applied. Administered Medications: 18:45 Drug: NS 0.9% IV 1000 ml IV at 1 bolus Per protocol; 1000 mL bolus Route: IV; Rate: 1 me1 bolus; Site: left antecubital; 19:45 Follow up: Response: No adverse reaction; IV Status: Completed infusion; IV Intake: me1 1000ml 19:59 Follow up: Response: No adverse reaction; IV Status: Completed infusion; IV Intake: me1 1000ml 18:45 Drug: Famotidine IVP 20 mg IVP once; dilute with 10 mL 0.9% NaCl; give over 2 minutes me1 Route: IVP; Site: left antecubital; 19:44 Follow up: Response: No adverse reaction me1 18:45 Drug: Ondansetron IVP 4 mg IVP once; over 2 minutes Route: IVP; Site: left antecubital; me1 19:45 Follow up: Response: No adverse reaction; Nausea is decreased me1 18:45 Drug: morphine IVP or IV 4 mg IVP once over 4 mins Route: IVP; Infused Over: 4 mins; me1 Site: left antecubital; 19:45 Follow up: Response: No adverse reaction; Pain is decreased me1 Medication: 18:30 VIS not applicable for this client. me1 Intake: 19:45 IV: 1000ml; Total: 1000ml. me1 19:59 IV: 1000ml; Total: 2000ml. me1 Outcome: 19:29 Discharge ordered by . rn 19:57 Discharged to home ambulatory, with significant other, me1 19:57 Condition: stable 19:57 Discharge instructions given to patient, significant other, Instructed on discharge instructions, follow up and referral plans. Demonstrated understanding of instructions, follow-up care, 20:00 Patient left the ED. me1 Signatures: Dispatcher [employer] EDMS Tracy Carrion, OCULAR CARE AIDE-C OCULAR CARE AIDE-Ckb Antony Ely MD MD rn Sims, Marcus, DO DO ms3 Shemar Alba ls5 Frieda Crow RN RN me1 Susana Roth mg5 Guerrero Acosta RN RN tl4 Corrections: (The following items were deleted from the chart) 15:02 14:58 BP 196 / 104; Pulse 82bpm; Resp 20bpm; Pulse Ox 100%; Temp 98.7F Oral; 65.77 kg; tl4 Height 5 ft. 1 in.; BMI: 27.4; Pain 10/10, Adult; tl4 15:04 15:03 Allergies: HYDROCODONE; tl4 tl4 15:04 15:03 Allergies: Codeine; tl4 tl4 19:37 14:58 Chief complaint: Patient states: Pt c/o progressively worsening right upper me1 quadrant pain that radiates into her back that got much worse today. tl4
--- NOTE | 2023-06-13 19:30 | EDPHYS ---
Physician Documentation [facility] Name: Robyn Carrion Age: 62 yrs Sex: Female : 1960 Arrival Date: 06/13/2023 Time: 14:39 Bed 20 Private MD: ED Physician Antony Ely HPI: 06/12 17:49 This 62 yrs old Female presents to ER via Ambulatory with complaints of ms3 Abdominal Pain. 17:49 62-year-old female with past medical history of Fernando's esophagitis, cricopharyngeal ms3 spasm, Crohn's disease, hernia, hyperlipidemia presents to the emergency department for left upper quadrant abdominal pain that has been ongoing for 1 week. Patient states the pain is sharp and rated 7/10 located in her left upper quadrant. Patient denies any alleviating or inciting factors. Historical: - Allergies: 15:03 No Known Allergies; tl4 - PMHx: 15:03 fernando esophageal disease; cricopharyngeal spasm; Crohn's Disease; Hernia; High tl4 Cholesterol; Hypertensive disorder; IDDM; vericose vein; Pancreatitis; - PSHx: 15:03 bladder prolapse SX; Cholecystectomy; colon removal; ercp; hernia repair; hysterectomy; tl4 polyp removed; - Immunization history:: Adult Immunizations unknown. - Social history:: Smoking status: Patient denies any tobacco usage or history of. ROS: 17:49 Constitutional: Negative for fever, and chills. Neck: Negative for injury, pain, and ms3 swelling, Cardiovascular: Negative for chest pain, and palpitations. Respiratory: Negative for shortness of breath, cough, wheezing, and pleuritic chest pain, 17:49 MS/Extremity: Negative for injury and deformity, Skin: Negative for injury, rash, and discoloration, 17:49 Abdomen/GI: Positive for abdominal pain, Exam: 17:49 Constitutional: This is a well developed, well nourished patient who is awake, alert, ms3 and in no acute distress. Head/Face: Normocephalic, atraumatic. Neck: Trachea midline, no cervical lymphadenopathy. Supple, full range of motion without nuchal rigidity, or vertebral point tenderness. No Meningismus. Chest/axilla: Normal chest wall appearance and motion. Nontender with no deformity. Cardiovascular: Regular rate and rhythm with a normal S1 and S2. No gallops, murmurs, or rubs. Normal PMI, no JVD. No pulse deficits. Respiratory: Lungs have equal breath sounds bilaterally, clear to auscultation and percussion. No rales, rhonchi or wheezes noted. No increased work of breathing, no retractions or nasal flaring. 17:49 Skin: Warm, dry with normal turgor. Normal color with no rashes, no lesions, and no evidence of cellulitis. 17:49 Abdomen/GI: Inspection: abdomen appears normal, Bowel sounds: normal, Palpation: moderate abdominal tenderness, in the left upper quadrant, Vital Signs: 14:58 BP 165 / 95; Pulse 82; Resp 20; Temp 98.7(O); Pulse Ox 100% ; Weight 65.77 kg; Height 5 tl4 ft. 1 in. ; Pain 10/10; 18:30 BP 185 / 85; Pulse 72; Resp 19; Pulse Ox 98% on R/A; me1 19:15 BP 180 / 81; Pulse 59; Resp 17; Pulse Ox 100% on R/A; me1 14:58 Body Mass Index 27.40 (65.77 kg, 154.94 cm) tl4 14:58 Pain Scale: Adult tl4 MDM: 15:06 Patient medically screened. ms3 17:49 Differential diagnosis: bowel obstruction, diverticulitis, gastritis, Irritable bowel ms3 syndrome, non-specific abd pain. 18:28 Transition of care: After a detail discussion of the patient's case, care is ms3 transferred to Antony Ely MD. 19:28 Data reviewed: vital signs, nurses notes, lab test result(s), radiologic studies, CT rn scan, and as a result, I will discharge patient. Counseling: I had a detailed discussion with the patient and/or guardian regarding the historical points, exam findings, and any diagnostic results supporting the discharge/admit diagnosis, lab results, radiology results, the need for outpatient follow up, to return to the emergency department if symptoms worsen or persist or if there are any questions or concerns that arise at home. Special discussion: I discussed with the patient/guardian in detail that at this point there is no indication for admission to the hospital. It is understood, however, that if the symptoms persist or worsen the patient needs to return immediately for re-evaluation. 06/12 15:06 Order name: CBC with Diff; Complete Time: 16:31 ms3 06/12 15:06 Order name: CMP; Complete Time: 16:31 ms3 06/12 15:06 Order name: Lipase; Complete Time: 16:31 ms3 06/12 15:06 Order name: Urinalysis w/ reflexes; Complete Time: 16:31 ms3 06/12 16:31 Order name: Lactate w/ 2H reflex if indic.; Complete Time: 19:28 ms3 06/12 15:10 Order name: Pelvis Angio; Complete Time: 17:44 EDMS 06/12 15:12 Order name: Abdomen Angio; Complete Time: 17:44 EDMS 06/12 15:06 Order name: IV Saline Lock; Complete Time: 15:58 ms3 06/12 15:06 Order name: Labs collected and sent; Complete Time: 15:58 ms3 Administered Medications: 18:45 Drug: NS 0.9% IV 1000 ml IV at 1 bolus Per protocol; 1000 mL bolus Route: IV; Rate: 1 me1 bolus; Site: left antecubital; 19:45 Follow up: Response: No adverse reaction; IV Status: Completed infusion; IV Intake: me1 1000ml 19:59 Follow up: Response: No adverse reaction; IV Status: Completed infusion; IV Intake: me1 1000ml 18:45 Drug: Famotidine IVP 20 mg IVP once; dilute with 10 mL 0.9% NaCl; give over 2 minutes me1 Route: IVP; Site: left antecubital; 19:44 Follow up: Response: No adverse reaction me1 18:45 Drug: Ondansetron IVP 4 mg IVP once; over 2 minutes Route: IVP; Site: left antecubital; me1 19:45 Follow up: Response: No adverse reaction; Nausea is decreased me1 18:45 Drug: morphine IVP or IV 4 mg IVP once over 4 mins Route: IVP; Infused Over: 4 mins; me1 Site: left antecubital; 19:45 Follow up: Response: No adverse reaction; Pain is decreased me1 Disposition Summary: 06/13/23 19:29 Discharge Ordered Notes: Location: Home rn Condition: Stable rn Problem: new rn Symptoms: have improved rn Diagnosis - Upper abdominal pain, unspecified rn - Essential (primary) hypertension rn Followup: ms3 - With: Melodie Santiago MD - When: 2 - 3 days - Reason: Recheck today's complaints Discharge Instructions: - Discharge Summary Sheet ms3 - Abdominal Pain, Adult ms3 - Hypertension, Adult ms3 Forms: - Medication Reconciliation Form rn - Thank You Letter rn - Antibiotic development intern - Prescription Opioid Use rn - Patient Portal Instructions rn - Leadership Thank You Letter rn Signatures: Dispatcher [employer] EDMS Antony Ely MD MD rn Sims, Marcus, DO DO ms3 Frieda Crow RN RN nd1 Guerrero Acosta RN RN tl4 Corrections: (The following items were deleted from the chart) 15:04 15:03 Allergies: HYDROCODONE; tl4 tl4 15:04 15:03 Allergies: Codeine; tl4 tl4 15:08 15:08 CT ANGIO ABD/PELVIS W CONTRAST ordered. EDMS EDMS
[2023-06-13 20:21] VITALS: BP 180/81; TEMP 98.7; O2SAT 100
== END ==
LOC: ER 14:39
DX: R10.12 Left upper quadrant pain (principal); I10 Essential (primary) hypertension
CPT/HCPCS: 85025; 81001; 36415; 83605; 83690; 80053; 72191; 74175; Q9967; J2405; J7030; 96361; 96374; 96375; 99284

== ENCOUNTER 2024-02-08 15:07 | Emergency (ER) | payer OTHER ==
--- NOTE | 2024-02-08 16:32 | RAD REPORT ---
EXAMINATION: ONE VIEW CHEST XR CLINICAL INDICATION: Female, 63 years old.upper abdomen pain TECHNIQUE: 1 View, AP supine, X-ray of the chest was performed. [id number]. COMPARISON: No prior exam. FINDINGS: Lungs and pleura: Clear lungs. No effusion. Heart and mediastinum: Normal heart size. Unremarkable mediastinal contours. Osseous structures: No acute abnormality. Tubes/lines: None Other: None. IMPRESSION: No acute intrathoracic abnormality.
[2024-02-08] MEDS ORDERED: ONDANSETRON 4 MG/2 ML VIAL ONE (18:17)
[2024-02-08 18:18] LABS: Absolute Basophils 0.3 K/uL (0-0.5); Absolute Eosinophils 0.1 K/uL (0-0.5); Absolute Monocytes 0.3 K/uL (0.1-1.3); Absolute Neutrophil 6.4 K/uL (1.8-8.0); Eosinophils % 1.6 % (0-4.4); Hematocrit 45.2 % (36.0-45.0); Hemoglobin 15.8 g/dL (12.0-15.0); Lymphocytes % 21.8 % (15.3-44.8); MCH 32.1 pg (27.0-35.0); MCV 91.6 fL (80-100); MPV 7.2 fL (7.6-11.3); Monocytes % 3.3 % (3.3-12.3); Neutrophils % 70.3 % (41.7-73.7); Nucleated Red Blood Cells % 0.1 % (0-0); Platelets 284 thou/uL (152-406); RBC Red Blood Cell Count 4.93 M/uL (3.86-4.86); Red Cell Distribution Width 12.5 % (12.1-15.2)
[2024-02-08] MEDS ORDERED: MORPHINE 4 MG/ML SYR ONE (18:18)
[2024-02-08 18:20] LABS: PT Prothrombin Time 11.4 SECONDS (9.4-12.5); Protime INR 1.02
[2024-02-08 18:34] LABS: ALT/SGPT 25 U/L (13-56); AST/SGOT 20 U/L (15-37); Albumin 3.8 g/dL (3.4-5.0); Albumin/Globulin Ratio 0.8 (1.1-1.8); Alkaline Phosphatase 126 U/L (45-117); Anion Gap 6.9 mEq/L (5.0-15.0); BUN Blood Urea Nitrogen 20 mg/dL (7-18); Bicarbonate 28 mEq/L (21-32); Bilirubin Direct < 0.2 mg/dL (0-0.2); Bilirubin Indirect, Calculated 0.2 mg/dL (0.2-0.8); Bilirubin Total 0.4 mg/dL (0.2-1.0); Globulin 4.7 g/dL (2.3-3.5); Glomerular Filtration Rate 86 ml/min (=/>90); Glucose Level 116 mg/dL (74-106); Lipase 41 U/L (13-75); Magnesium 2.6 mg/dL (1.6-2.4); Potassium 3.9 mEq/L (3.5-5.1); Protein, Total 8.5 g/dL (6.4-8.2); Sodium Level 138 mEq/L (136-145); Troponin High Sensitivity 4.7 pg/mL (<58.9)
[2024-02-08 19:01] LABS: Specific Gravity 1.028 (1.005-1.030); Sqamous Epithelial <5 /HPF (None Seen); Urine Bacteria 20-50 /HPF (<20); Urine Bilirubin NEGATIVE (Negative); Urine Blood Negative (Negative); Urine Clarity Turbid (Clear); Urine Color Yellow (Yellow); Urine Crystals Unidentified Few /HPF (None Seen); Urine Culture Reflex Order NOT NEEDED; Urine Glucose 4+ (Over) (Negative); Urine Ketones NEGATIVE (Negative); Urine Micro Reflex YN NO BILL MICROSCOPIC; Urine Mucus Slight /HPF (None Seen); Urine Nitrite 2+ (Negative); Urine Protein NEGATIVE (Negative); Urine Urobilinogen Normal (Normal); Urine WBC <5 /HPF (<5); Urine Yeast (Budding) Trace /HPF (None Seen)
--- NOTE | 2024-02-08 19:49 | RAD REPORT ---
EXAMINATION: CT ABDOMEN AND PELVIS WITH CONTRAST CLINICAL INDICATION: Female, 63 years old.left side abdomen pain TECHNIQUE: CT abdomen and pelvis was performed, after the administration of IV contrast, as per [facility] protocol. Axial, sagittal and coronal reconstructions were obtained. One or more of the following dose reduction techniques were used: Automated exposure control, adjustment of the mA and/o r kV according to patient size, and/or iterative reconstruction. Unless otherwise specified, incidental findings do not require dedicated imaging follow-up. [id number]. COMPARISON: No prior exam. FINDINGS: LOWER CHEST: The visualized lung bases are clear. Mild circumferential thickening of the distal esoph layton. LIVER: Normal in size and contour. No focal lesion. GALLBLADDER/BILE DUCT: Cholecystectomy.?Extra hepatic biliary duct dilatation is likely related to th e postcholecystectomy state. PANCREAS: No significant abnormality. SPLEEN: Normal size. No focal lesion. ADRENALS: Normal; no mass. KIDNEYS AND URETERS: Normal size and contour. No hydronephrosis. GASTROINTESTINAL TRACT: Stomach is non-dilated. Small bowel has normal course and caliber. No colonic wall thickening or pericolonic inflammatory changes. Diverticulosis without diverticulitis. Partial colectomy. Normal appendix. PERITONEUM: Small fat-containing ventral hernia is similar to 06/09/23. LYMPH NODES: No lymphadenopathy. ABDOMINAL AORTA AND OTHER VESSELS: Normal caliber aorta and IVC. URINARY BLADDER: Trace bladder gas REPRODUCTIVE ORGANS: Uterus surgically absent. No adnexal abnormality. MUSCULOSKELETAL: No acute or suspicious osseous abnormality. Grade 1 anterolisthesis of L4 and L5. ADDITIONAL FINDINGS: None. IMPRESSION: No acute or significant abnormalities seen in the abdomen or pelvis. Incidental findings as noted above.
[2024-02-08] MEDS ORDERED: KETOROLAC 30 MG/ML INJ ONE (20:50)
[2024-02-08] MEDS ORDERED: dexAMETHasone 10 MG/ML VIAL ONE (20:50)
[2024-02-08] MEDS ORDERED: CEFTRIAXONE 1000 MG/VIAL ONE (21:26)
--- NOTE | 2024-02-08 21:26 | EDPHYS ---
Physician Documentation [facility] Name: Robyn Carrion Age: 63 yrs Sex: Female : 1960 Arrival Date: 02/08/2024 Time: 15:07 Bed 2 Private MD: ED Physician Tian Stuart HPI: 02/07 16:10 This 63 yrs old Female presents to ER via Ambulatory with complaints of cp Abdominal Pain, Nausea/Vomiting. 16:10 The patient presents with abdominal pain left side of abdomen. cp 16:10 Onset: The symptoms/episode began/occurred chronically, pain worse over past several cp days. 16:10 Associated signs and symptoms: Pertinent positives: nausea and vomiting, Pertinent cp negatives: chest pain, constipation, diarrhea, fever, vomiting blood. The symptoms are described as waxing/waning. Severity of pain: in the emergency department the pain is unchanged despite home interventions. Historical: - Allergies: 15:44 hydrocodone (GI upset); aa5 - PMHx: 15:40 fernando esophageal disease; cricopharyngeal spasm; Crohn's Disease; Hernia; High aa5 Cholesterol; Hypertensive disorder; Pancreatitis; vericose vein; IDDM; 15:44 Diverticulitis; aa5 - PSHx: 15:40 bladder prolapse SX; Cholecystectomy; colon removal; ercp; hernia repair; hysterectomy; aa5 polyp removed; - Immunization history:: Adult Immunizations unknown. - Infectious Disease History:: Denies. - Social history:: Smoking status: Patient denies any tobacco usage or history of. ROS: 16:15 Constitutional: Negative for body aches, chills, fever, poor PO intake, cp 16:15 Eyes: Negative for injury, pain, redness, and discharge, cp 16:15 ENT: Negative for drainage from ear(s), ear pain, sore throat, difficulty swallowing, difficulty handling secretions, 16:15 Cardiovascular: Negative for chest pain, edema, palpitations, 16:15 Respiratory: Negative for cough, shortness of breath, wheezing, 16:15 Abdomen/GI: Positive for abdominal pain, nausea and vomiting, Negative for diarrhea, constipation, black/tarry stool, rectal bleeding, 16:15 Neuro: Negative for altered mental status, dizziness, headache, numbness, syncope, weakness, 16:15 All other systems are negative, Exam: 16:20 Constitutional: The patient appears in no acute distress, alert, awake, cp non-diaphoretic, non-toxic, well developed, well nourished, uncomfortable, 16:20 Head/Face: Normocephalic, atraumatic. cp 16:20 Eyes: Periorbital structures: appear normal, Conjunctiva: normal, no exudate, no injection, Sclera: no appreciated abnormality, Lids and lashes: appear normal, bilaterally, 16:20 ENT: External ear(s): are unremarkable, Nose: is normal, Mouth: Lips: moist, Oral mucosa: pink and intact, moist, Posterior pharynx: Airway: no evidence of obstruction, patent, 16:20 Chest/axilla: Inspection: normal, 16:20 Cardiovascular: Rate: normal, Rhythm: regular, Edema: is not appreciated, JVD: is not appreciated, 16:20 Respiratory: the patient does not display signs of respiratory distress, Respirations: normal, no use of accessory muscles, no retractions, labored breathing, is not present, Breath sounds: are clear throughout, no decreased breath sounds, no stridor, no wheezing, 16:20 Abdomen/GI: Inspection: abdomen appears normal, Bowel sounds: active, all quadrants, Palpation: soft, in all quadrants, moderate abdominal tenderness, in the left upper quadrant and left lower quadrant, rebound tenderness, is not appreciated, involuntary guarding, is not appreciated, 16:20 Back: CVA tenderness, is absent, 16:20 Neuro: Orientation: to person, place \T\ time. Mentation: is normal, Motor: moves all fours, strength is normal, Sensation: is normal, 18:27 ECG was reviewed by the Attending Physician. cp Vital Signs: 15:40 BP 156 / 84; Pulse 87; Resp 18 S; Temp 98.1(O); Pulse Ox 100% on R/A; Weight 63.5 kg aa5 (R); Height 5 ft. 2 in. (R); 18:27 BP 153 / 92; Pulse 65; Resp 16; Pulse Ox 97% on R/A; Pain 7/10; ss 18:52 Pain 3/10; tm6 19:08 BP 153 / 92; Pulse 53; Resp 15; Temp 98.1; Pulse Ox 100% ; Pain 0/10; bm8 20:16 BP 144 / 65; Pulse 56; Resp 18; Temp 98.1; Pulse Ox 100% ; Pain 0/10; bm8 21:33 BP 147 / 70; Pulse 57; Resp 15; Temp 98.1; Pulse Ox 99% ; Pain 1/10; bm8 15:40 Body Mass Index 25.61 (63.50 kg, 157.48 cm) aa5 18:27 Pain Scale: Adult ss 18:52 Pain Scale: Adult tm6 19:08 Pain Scale: Adult bm8 20:16 Pain Scale: Adult bm8 21:33 Pain Scale: Adult bm8 [place] Coma Score: 19:08 Eye Response: spontaneous(4). Motor Response: obeys commands(6). Verbal Response: bm8 oriented(5). Total: 15. 21:33 Eye Response: spontaneous(4). Motor Response: obeys commands(6). Verbal Response: bm8 oriented(5). Total: 15. MDM: 15:41 Medical Screening Exam initiated 18:00 Differential diagnosis: bowel obstruction, diverticulitis, gastritis, non-specific abd cp pain, pancreatitis, Pyelonephritis, Ureterolithiasis, urinary tract infection. 21:25 Data reviewed: vital signs, nurses notes, lab test result(s), EKG, radiologic studies, cp CT scan, and as a result, I will discharge patient. 21:25 I considered the following discharge prescriptions or medication management in the emergency department Medications were administered in the Emergency Department. See MAR. Care significantly affected by the following chronic conditions: Hypertension. Counseling: I had a detailed discussion with the patient and/or guardian regarding the historical points, exam findings, and any diagnostic results supporting the discharge/admit diagnosis, lab results, radiology results, the need for outpatient follow up, a drug safety associate, to return to the emergency department if symptoms worsen or persist or if there are any questions or concerns that arise at home. Response to treatment: the patient's symptoms have markedly improved after treatment, and as a result, I will discharge patient. Special discussion: Based on the patient's Hx, exam, and Dx evaluation, there is no indication for emergent surgery or inpatient Tx. It is understood by the patient/guardian that if the Sx's persist or worsen they need to return immediately for re-evaluation. 02/07 16:05 Order name: Basic Metabolic Panel; Complete Time: 18:35 cp 02/07 18:35 Interpretation: Normal except: GLUC 116; BUN 20; GFR 86. cp 02/07 16:05 Order name: CBC with Diff; Complete Time: 18:35 cp 02/07 18:35 Interpretation: Normal except: RBC 4.93; HGB 15.8; HCT 45.2; MPV 7.2; BASO% 3.0. cp 02/07 16:05 Order name: LFT's; Complete Time: 19:02 cp 02/07 16:05 Order name: Magnesium; Complete Time: 19:02 cp 02/07 21:20 Interpretation: Reviewed. cp 02/07 16:05 Order name: PT-INR; Complete Time: 18:35 cp 02/07 16:05 Order name: Troponin HS; Complete Time: 19:02 cp 02/07 16:05 Order name: Lipase; Complete Time: 19:02 cp 02/07 16:05 Order name: Urinalysis W/Microscopic; Complete Time: 19:02 cp 02/07 19:03 Interpretation: Normal except: UCLA Turbid; UGLUC 4+ (Over); UNIT 2+; UESTR 250; URBC cp 5-10; UBACT 20-50; HYAL 5-10; BYST Trace. 02/07 16:05 Order name: XRAY Chest (1 view); Complete Time: 18:35 cp 02/07 19:04 Order name: CT Abd/Pelvis - IV Contrast Only; Complete Time: 20:44 cp 02/07 16:05 Order name: Cardiac monitoring; Complete Time: 18:26 cp 02/07 16:05 Order name: EKG - Nurse/Tech; Complete Time: 18:26 cp 02/07 16:05 Order name: IV Saline Lock; Complete Time: 18:26 cp 02/07 16:05 Order name: Labs collected and sent; Complete Time: 18:26 cp 02/07 16:05 Order name: O2 Per Protocol; Complete Time: 18:26 cp 02/07 16:05 Order name: O2 Sat Monitoring; Complete Time: 18:26 cp 02/07 21:24 Order name: PO challenge; Complete Time: 21:32 cp EC:27 Rate is 64 beats/min. Rhythm is regular. CT interval is normal. QRS interval is normal. cp QT interval is normal. T waves are Inverted in lead aVR. Interpreted by me. Reviewed by me. Administered Medications: 18:26 Drug: morphine IVP or IV 4 mg IVP once over 4 mins Route: IVP; Infused Over: 4 mins; tm6 Site: left antecubital; 18:52 Follow up: Response: No adverse reaction; Pain is decreased tm6 18:26 Drug: Ondansetron IVP 4 mg IVP once; over 2 minutes Route: IVP; Site: left antecubital; tm6 18:52 Follow up: Response: No adverse reaction tm6 20:57 Drug: Dexamethasone IVP 10 mg IVP once; (not to exceed 40 mg) Route: IVP; Site: left bm8 antecubital; 21:33 Follow up: Response: No adverse reaction bm8 20:57 Drug: Ketorolac IVP 15 mg IVP once Route: IVP; Site: left antecubital; bm8 21:33 Follow up: Response: No adverse reaction bm8 21:32 Drug: Rocephin IV 1 grams IV at calculated rate once; Given slow IV push per pharmacy bm8 instructions Route: IV; Rate: calculated rate; Site: left antecubital; 21:33 Follow up: Response: No adverse reaction; IV Status: Completed infusion; IV Intake: [id number] Disposition Summary: 02/08/24 21:25 Discharge Ordered Notes: Location: Home cp Problem: new cp Symptoms: have improved cp Condition: Stable cp Diagnosis - UTI/ Urinary tract infection, site not specified cp - Diverticulosis of large intestine without perforation or abscess without bleeding cp Followup: cp - With: Private Physician - When: 2 - 3 days - Reason: Recheck today's complaints Discharge Instructions: - Discharge Summary Sheet cp - Urinary Tract Infection, Adult cp Forms: - Medication Reconciliation Form cp - Antibiotic Education cp - Prescription Opioid Use cp - Patient Portal Instructions cp - Leadership Thank You Letter cp Prescriptions: - Augmentin 875-125 mg Oral Tablet - take 1 tablet ORAL route every 12 hours for 10 days; 20 tablet; Refills: 0, cp Product Selection Permitted - Zofran 4 mg Oral Tablet - take 1 tablet ORAL route every 12 hours As needed; 20 tablet; Refills: 0, cp Product Selection Permitted - dicyclomine 20 mg Oral tablet - take 1 tablet ORAL route 4 times per day; 30 tablet; Refills: 0, Product cp Selection Permitted Signatures: Dispatcher [employer] EDMS Dagmar Merino, RN RN aa5 Tian Adams PA PA cp Melodie Chowdary, RN RN tm6 Jf Curtis, RN RN bm8 Corrections: (The following items were deleted from the chart) 16:06 16:06 BASIC METABOLIC PANEL+C.LAB.BRZ ordered. EDMS EDMS 16: 16:06 CBC+H.LAB.BRZ ordered. EDMS EDMS 16: 16:06 HEPATIC FUNCTION+C.LAB.BRZ ordered. EDMS EDMS 16:06 16:06 MAGNESIUM+C.LAB.BRZ ordered. EDMS EDMS 16:06 16:06 PROTIME (+INR)+COAG.LAB.BRZ ordered. EDMS EDMS 16:06 16:06 Troponin High Sensitivity+C.LAB.BRZ ordered. EDMS EDMS 16:06 16:06 LIPASE+C.LAB.BRZ ordered. EDMS EDMS 16:06 16:06 Urinalysis W/Microscopic+U.LAB.BRZ ordered. EDMS EDMS 16:06 16:06 Chest Single View+RAD.RAD.BRZ ordered. EDMS EDMS
--- NOTE | 2024-02-08 21:26 | ER ---
Nurse's Notes [facility] Name: Robyn Carrion Age: 63 yrs Sex: Female : 1960 Arrival Date: 02/08/2024 Time: 15:07 Bed 2 Private MD: Diagnosis: UTI/ Urinary tract infection, site not specified;Diverticulosis of large intestine without perforation or abscess without bleeding Presentation: 02/07 15:40 Chief complaint: Patient states: "I've had stomach pain and I had and endoscopy and aa5 colonoscopy January 13 and ". Pt reports LUQ pain x 4-5 weeks ago. 15:40 Method Of Arrival: Ambulatory aa5 15:40 Coronavirus screen: At this time, the client does not indicate any symptoms associated aa5 with coronavirus-19. Ebola Screen: Patient denies travel to an Ebola-affected area in the 21 days before illness onset. Initial Sepsis Screen: Does the patient meet any 2 criteria? No. Patient's initial sepsis screen is negative. Does the patient have a suspected source of infection? No. Patient's initial sepsis screen is negative. Risk Assessment: Do you want to hurt yourself or someone else? Patient reports no desire to harm self or others. Onset of symptoms was 2023. 15:40 Acuity: DARA 3 aa5 Historical: - Allergies: 15:44 hydrocodone (GI upset); aa5 - PMHx: 15:40 fernando esophageal disease; cricopharyngeal spasm; Crohn's Disease; Hernia; High aa5 Cholesterol; Hypertensive disorder; Pancreatitis; vericose vein; IDDM; 15:44 Diverticulitis; aa5 - PSHx: 15:40 bladder prolapse SX; Cholecystectomy; colon removal; ercp; hernia repair; hysterectomy; aa5 polyp removed; - Immunization history:: Adult Immunizations unknown. - Infectious Disease History:: Denies. - Social history:: Smoking status: Patient denies any tobacco usage or history of. Screenin:27 [facility] ED Fall Risk Assessment (Adult) History of falling in the last 3 months, tm6 including since admission No falls in past 3 months (0 pts) Confusion or Disorientation No (0 pts) Intoxicated or Sedated No (0 pts) Impaired Gait No (0 pts) Mobility Assist Device Used No (0 pt) Altered Elimination No (0 pt) Score/Fall Risk Level 0 - 2 = Low Risk Oriented to surroundings, Maintained a safe environment, Educated pt \\T\\ family on fall prevention, incl call for assistance when getting out of bed. Abuse screen: Denies threats or abuse. Denies injuries from another. Nutritional screening: No deficits noted. Tuberculosis screening: No symptoms or risk factors identified. Assessment: 18:27 General: Appears uncomfortable, Behavior is calm, cooperative. Pain: Complains of pain tm6 in left upper quadrant Pain currently is 10 out of 10 on a pain scale. Pain began a few weeks ago, worsening today. Neuro: Level of Consciousness is awake, alert, obeys commands, Oriented to person, place, time, situation. Cardiovascular: Patient's skin is warm and dry. Rhythm is regular. Respiratory: Airway is patent Respiratory effort is even, unlabored, Respiratory pattern is regular, symmetrical. GI: Abdomen is flat, non-distended, Bowel sounds present X 4 quads. Abd is soft Abdomen is tender to palpation in left upper quadrant. : No signs and/or symptoms were reported regarding the genitourinary system. EENT: No signs and/or symptoms were reported regarding the EENT system. Derm: No signs and/or symptoms reported regarding the dermatologic system. Musculoskeletal: No signs and/or symptoms reported regarding the musculoskeletal system. 19:08 Reassessment: Patient appears in no apparent distress at this time. Patient and/or bm8 family updated on plan of care and expected duration. Pain level reassessed. Patient is alert, oriented x 3, equal unlabored respirations, skin warm/dry/pink. pt awaiting ct, denies pain at this time Patient denies pain at this time. Patient states feeling better. Patient states symptoms have improved. 20:16 Reassessment: Patient appears in no apparent distress at this time. No changes from bm8 previously documented assessment. Patient and/or family updated on plan of care and expected duration. Pain level reassessed. Patient is alert, oriented x 3, equal unlabored respirations, skin warm/dry/pink. Vital Signs: 15:40 BP 156 / 84; Pulse 87; Resp 18 S; Temp 98.1(O); Pulse Ox 100% on R/A; Weight 63.5 kg aa5 (R); Height 5 ft. 2 in. (R); 18:27 BP 153 / 92; Pulse 65; Resp 16; Pulse Ox 97% on R/A; Pain 7/10; ss 18:52 Pain 3/10; tm6 19:08 BP 153 / 92; Pulse 53; Resp 15; Temp 98.1; Pulse Ox 100% ; Pain 0/10; bm8 20:16 BP 144 / 65; Pulse 56; Resp 18; Temp 98.1; Pulse Ox 100% ; Pain 0/10; bm8 21:33 BP 147 / 70; Pulse 57; Resp 15; Temp 98.1; Pulse Ox 99% ; Pain 1/10; bm8 15:40 Body Mass Index 25.61 (63.50 kg, 157.48 cm) aa5 18:27 Pain Scale: Adult ss 18:52 Pain Scale: Adult tm6 19:08 Pain Scale: Adult bm8 20:16 Pain Scale: Adult bm8 21:33 Pain Scale: Adult bm8 [place] Coma Score: 19:08 Eye Response: spontaneous(4). Motor Response: obeys commands(6). Verbal Response: bm8 oriented(5). Total: 15. 21:33 Eye Response: spontaneous(4). Motor Response: obeys commands(6). Verbal Response: bm8 oriented(5). Total: 15. ED Course: 15:10 Patient arrived in ED. im 15:10 Tian Adams PA is PHCP. cp 15:10 Ishan Chang MD is Attending Physician. cp 15:40 Arm band placed on. aa5 15:43 Triage completed. aa5 16:24 XRAY Chest (1 view) In Process Unspecified. EDMS 17:55 Melodie Chowdary, RN is Primary Nurse. tm6 18:14 Basic Metabolic Panel Sent. tm6 18:14 CBC with Diff Sent. tm6 18:14 LFT's Sent. tm6 18:14 Magnesium Sent. tm6 18:14 PT-INR Sent. tm6 18:14 Troponin HS Sent. tm6 18:14 Lipase Sent. tm6 18:14 Inserted saline lock: 22 gauge in right antecubital area, using aseptic technique. tm6 Blood collected. Flushed with 10 mL NS. 18:26 EKG done, by ED staff, reviewed by Tian LAFLEUR. tm6 18:27 Patient has correct armband on for positive identification. Bed in low position. Call tm6 light in reach. Side rails up X 1. Provided Education on: use of call lira. Client placed on continuous cardiac and pulse oximetry monitoring. NIBP monitoring applied. traffic monitor specialist on. Pulse ox on. NIBP on. Door closed. Noise minimized. Lights dimmed. Warm blanket given. Pillow given. 18:52 Urinalysis W/Microscopic Sent. tm6 19:08 No provider procedures requiring assistance completed. bm8 19:26 CT Abd/Pelvis - IV Contrast Only In Process Unspecified. EDMS 20:32 Tian Stuart MD is Attending Physician. cp 21:33 IV discontinued, intact, bleeding controlled, No redness/swelling at site. Pressure bm8 dressing applied. Administered Medications: 18:26 Drug: morphine IVP or IV 4 mg IVP once over 4 mins Route: IVP; Infused Over: 4 mins; tm6 Site: left antecubital; 18:52 Follow up: Response: No adverse reaction; Pain is decreased tm6 18:26 Drug: Ondansetron IVP 4 mg IVP once; over 2 minutes Route: IVP; Site: left antecubital; tm6 18:52 Follow up: Response: No adverse reaction tm6 20:57 Drug: Dexamethasone IVP 10 mg IVP once; (not to exceed 40 mg) Route: IVP; Site: left bm8 antecubital; 21:33 Follow up: Response: No adverse reaction bm8 20:57 Drug: Ketorolac IVP 15 mg IVP once Route: IVP; Site: left antecubital; bm8 21:33 Follow up: Response: No adverse reaction bm8 21:32 Drug: Rocephin IV 1 grams IV at calculated rate once; Given slow IV push per pharmacy bm8 instructions Route: IV; Rate: calculated rate; Site: left antecubital; 21:33 Follow up: Response: No adverse reaction; IV Status: Completed infusion; IV Intake: [id number] Medication: 18:27 VIS not applicable for this client. tm6 Intake: 21:33 IV: 10ml; Total: 10ml. bm8 Outcome: 21:25 Discharge ordered by MD. cp 21:33 Discharged to home ambulatory, bm8 21:33 Condition: stable 21:33 Discharge instructions given to patient, family, Instructed on discharge instructions, follow up and referral plans. no drinking with medication, no driving heavy equipment, medication usage, safety practices, Demonstrated understanding of instructions, follow-up care, medications, 21:35 Prescriptions given X 3, bm8 21:43 Patient left the ED. bm8 Signatures: Dispatcher [employer] EDMS Dagmar Merino, RN RN aa5 Cande Fonseca, RN RN ss Tian Adams PA PA cp Mendoza, Itzel im Masterson, Tawney RN RN tm6 Jf Curtis RN RN bm8 Corrections: (The following items were deleted from the chart) 15:45 15:40 BP 156 / 84; Pulse 87bpm; Resp 18bpm; Spontaneous; Pulse Ox 100% RA; aa5 aa5
[2024-02-08 22:15] VITALS: TEMP 98.1
[2024-02-08 22:29] VITALS: BP 147/70; O2SAT 99
--- NOTE | 2024-02-11 12:19 | EKG ---
Test Date: 2024-02-08 Test Time: 18:21:56 Disbursement Clerk: CRESENCIO MEASUREMENT RESULTS: Intervals: Rate: 64 ID: [id number] QRSD: 78 QT: 386 QTc: 398 [place]: P: 25 ID: [id number] QRS: 27 T: 84 INTERPRETIVE STATEMENTS: Normal sinus rhythm Low voltage QRS Borderline ECG Compared to ECG 12/22/2022 15:55:22 Low QRS voltage now present Electronically Signed On 02-11-24 12:16:02 LEAD SYSTEMS ANALYST by John Foss
== END 2024-02-08 21:43 | disposition home or self-care (01) ==
LOC: ER 15:07
DX: N39.0 Urinary tract infection, site not specified (principal); K57.30 Diverticulosis of large intestine without perforation or abscess without bleeding; E11.9 Type 2 diabetes mellitus without complications; I10 Essential (primary) hypertension
CPT/HCPCS: 85025; 81001; 80048; 36415; 83735; 85610; 80076; 84484; 83690; 74177; 71045; 96375; 96374; 99285; Q9967; J1100; J2405; J0696; 93005

== ENCOUNTER 2024-03-27 07:36 | Emergency (ER) | payer OTHER ==
--- NOTE | 2024-03-27 07:57 | ER ---
Nurse's Notes [facility] Name: Robyn Carrion Age: 63 yrs Sex: Female : 1960 Arrival Date: 03/27/2024 Time: 07:36 Bed 13 Private MD: Diagnosis: Eyelid Irritation Presentation: 03/27 07:47 Chief complaint: Intermittent periorbital redness, swelling, itching, and drainage from hb eye x 1 week. Coronavirus screen: At this time, the client does not indicate any symptoms associated with coronavirus-19. Ebola Screen: No symptoms or risks identified at this time. Initial Sepsis Screen: Does the patient meet any 2 criteria? No. Patient's initial sepsis screen is negative. Does the patient have a suspected source of infection? No. Patient's initial sepsis screen is negative. Risk Assessment: Do you want to hurt yourself or someone else? Patient reports no desire to harm self or others. Onset of symptoms was March 20, 2024. 07:47 Method Of Arrival: Ambulatory hb 07:47 Acuity: DARA 4 hb Historical: - Allergies: 07:49 hydrocodone (GI upset); hb - PMHx: 07:49 fernando esophageal disease; cricopharyngeal spasm; Crohn's Disease; Diverticulitis; hb Hernia; High Cholesterol; Hypertensive disorder; IDDM; Pancreatitis; vericose vein; - PSHx: 07:49 bladder prolapse SX; Cholecystectomy; colon removal; ercp; hernia repair; hysterectomy; hb polyp removed; - Immunization history:: Adult Immunizations up to date. - Infectious Disease History:: Denies. - Social history:: Smoking status: Patient denies any tobacco usage or history of. Screenin:50 [facility] ED Fall Risk Assessment (Adult) History of falling in the last 3 months, ko1 including since admission No falls in past 3 months (0 pts) Confusion or Disorientation No (0 pts) Intoxicated or Sedated No (0 pts) Impaired Gait No (0 pts) Mobility Assist Device Used No (0 pt) Altered Elimination No (0 pt) Score/Fall Risk Level 0 - 2 = Low Risk Oriented to surroundings, Maintained a safe environment, Educated pt \T\ family on fall prevention, incl call for assistance when getting out of bed, Assessed \T\ reinforced patient's understanding of fall precautions, Hourly rounding (assess needs \T\ fall precautionary measures) done. Abuse screen: Denies threats or abuse. Denies injuries from another. Nutritional screening: No deficits noted. Tuberculosis screening: No symptoms or risk factors identified. Assessment: 07:50 General: Appears in no apparent distress. Behavior is calm, cooperative, appropriate ko1 for age. Pain: Denies pain. Neuro: No deficits noted. Cardiovascular: No deficits noted. Respiratory: No deficits noted. GI: No deficits noted. : No deficits noted. EENT: Eyes Lid(s) rash. Derm: Rash noted that is red, raised, on right and left supraorbital ridge and right and left upper eyelid. Musculoskeletal: No deficits noted. Vital Signs: 07:47 BP 173 / 69; Pulse 78; Resp 16; Temp 98.2(O); Pulse Ox 100% on R/A; Weight 63.5 kg; hb Height 5 ft. 2 in. ; Pain 1/10; 08:10 BP 162 / 72; Pulse 70; Resp 15; Pulse Ox 99% ; ko1 07:47 Body Mass Index 25.61 (63.50 kg, 157.48 cm) hb 07:47 Pain Scale: Adult hb ED Course: 07:40 Patient arrived in ED. ra3 07:42 Ishan Chang MD is Attending Physician. ec2 07:45 Carlota Singh, HAIDER is Primary Nurse. ko1 07:49 Triage completed. hb 07:49 Arm band placed on. hb 07:50 Patient has correct armband on for positive identification. Bed in low position. Call ko1 light in reach. Provided Education on: meds. Pulse ox on. NIBP on. Door closed. Noise minimized. Pillow given. 07:50 No provider procedures requiring assistance completed. Patient did not have IV access ko1 during this emergency room visit. Administered Medications: No medications were administered Medication: 07:50 VIS not applicable for this client. ko1 Outcome: 07:56 Discharge ordered by . ec2 08:10 Discharged to home ambulatory, with family, ko1 08:10 Condition: stable 08:10 Discharge instructions given to patient, family, Instructed on discharge instructions, follow up and referral plans. medication usage, Demonstrated understanding of instructions, follow-up care, medications, Prescriptions given X 1, 08:11 Patient left the ED. ko1 Signatures: Chloe Martins RN RN hb Carlota Singh RN RN ko1 Ishan Chang MD MD ec2 Mechelle Goff ra3
--- NOTE | 2024-03-27 07:57 | EDPHYS ---
Physician Documentation [facility] Name: Robyn Carrion Age: 63 yrs Sex: Female : 1960 Arrival Date: 03/27/2024 Time: 07:36 Bed 13 Private MD: ED Physician Ishan Chang HPI: 03/27 08:00 This 63 yrs old Female presents to ER via Ambulatory with complaints of Rash - ec2 Both Eyes. 08:00 Patient arrives today for evaluation of rash to the bilateral upper eyelids. Patient ec2 reports that she has been having irritation and redness as well as some skin peeling to the upper eyelids. Patient reports no fevers or chills, no drainage. Patient reports no significant conjunctival drainage or injection. Patient reports no trauma or injury.. Historical: - Allergies: 07:49 hydrocodone (GI upset); hb - PMHx: 07:49 fernando esophageal disease; cricopharyngeal spasm; Crohn's Disease; Diverticulitis; hb Hernia; High Cholesterol; Hypertensive disorder; IDDM; Pancreatitis; vericose vein; - PSHx: 07:49 bladder prolapse SX; Cholecystectomy; colon removal; ercp; hernia repair; hysterectomy; hb polyp removed; - Immunization history:: Adult Immunizations up to date. - Infectious Disease History:: Denies. - Social history:: Smoking status: Patient denies any tobacco usage or history of. ROS: 08:00 Constitutional: as per hpi ec2 Exam: 08:00 Constitutional: GEN: NAD Head: atraumatic Eyes: EOMI, no discharge appreciated, no ec2 conjunctival injection noted. Globes with good range of motion without pain elicited. Ears: External ears are normal. CV: regular rate LUNGS: no respiratory distress ABD: non-distended SKIN: Irritation noted to the bilateral eyelids, with skin peeling noted to the right upper eyelid, no fluctuance, no significant warmth. MSK: no evidence of trauma Vital Signs: 07:47 BP 173 / 69; Pulse 78; Resp 16; Temp 98.2(O); Pulse Ox 100% on R/A; Weight 63.5 kg; hb Height 5 ft. 2 in. ; Pain 1/10; 08:10 BP 162 / 72; Pulse 70; Resp 15; Pulse Ox 99% ; ko1 07:47 Body Mass Index 25.61 (63.50 kg, 157.48 cm) hb 07:47 Pain Scale: Adult hb MDM: 07:43 Medical Screening Exam initiated ec2 08:00 Data reviewed: vital signs, nurses notes. ED course: Patient arrives today for ec2 evaluation of skin irritation to the bilateral eyelids. Examination revealing for well-appearing nontoxic individuals otherwise in no acute distress with reassuring examination. Suspect dermatitis, doubt infection, additionally considered other processes such as dermatomyositis, bacterial infection, conjunctivitis. Administered Medications: No medications were administered Disposition Summary: 03/27/24 07:56 Discharge Ordered Notes: Location: Home ec2 Condition: Stable ec2 Diagnosis - Eyelid Irritation ec2 Followup: ec2 - With: Private Physician - When: - Reason: Re-evaluation by your physician Discharge Instructions: - Discharge Summary Sheet ec2 Forms: - Medication Reconciliation Form ec2 - Antibiotic Education ec2 - Prescription Opioid Use ec2 - Patient Portal Instructions ec2 - Leadership Thank You Letter ec2 Prescriptions: - Hydrocortisone 0.5 % Topical Cream - apply 1 application TOPICAL route every 12 hours As needed; 30 gram; Refills: ec2 0, Product Selection Permitted Signatures: Chloe Martins RN RN Ishan Chang MD MD ec2
[2024-03-27 08:43] VITALS: TEMP 98.2
[2024-03-27 08:45] VITALS: BP 162/72; O2SAT 99
== END 2024-03-27 08:11 | disposition home or self-care (01) ==
LOC: ER 07:36
DX: R21 Rash and other nonspecific skin eruption (principal); I10 Essential (primary) hypertension; E78.00 Pure hypercholesterolemia, unspecified; K85.90 Acute pancreatitis without necrosis or infection, unspecified; K22.70 Barrett's esophagus without dysplasia; Z88.8 Allergy status to other drugs, medicaments and biological substances
CPT/HCPCS: 99283

== ENCOUNTER 2024-05-03 10:11 | Emergency (ER) | payer OTHER ==
--- NOTE | 2024-05-03 11:45 | RAD REPORT ---
EXAM:Extremity Venous Uni Ltd HISTORY: Right leg pain TECHNIQUE: Sonographic evaluation right lower extremity performed.Grayscale, color and spectral radha sis performed on all vessels COMPARISON: None. FINDINGS: Right common femoral, superficial femoral, greater saphenous, popliteal and posterior tibial veins ar e compressible and demonstrate augmentation. Doppler demonstrates good flow. IMPRESSION: No evidence of deep venous thrombosis involving the right lower extremity.
[2024-05-03] MEDS ORDERED: GABAPENTIN 300 MG CAP ONE (13:35)
--- NOTE | 2024-05-03 13:44 | ER ---
Nurse's Notes [facility] Name: Robyn Carrion Age: 63 yrs Sex: Female : 1960 Arrival Date: 05/03/2024 Time: 10:11 Bed 12 Private MD: Diagnosis: Right leg pain;Varicose veins Presentation: 05/03 10:52 Chief complaint: Varicose veins in right calf became painful 2 days ago. Denies injury. hb Coronavirus screen: At this time, the client does not indicate any symptoms associated with coronavirus-19. Ebola Screen: No symptoms or risks identified at this time. Initial Sepsis Screen: Does the patient meet any 2 criteria? No. Patient's initial sepsis screen is negative. Does the patient have a suspected source of infection? No. Patient's initial sepsis screen is negative. Risk Assessment: Do you want to hurt yourself or someone else? Patient reports no desire to harm self or others. Onset of symptoms was May 01, 2024. 10:52 Method Of Arrival: Ambulatory hb 10:52 Acuity: DARA 3 hb Historical: - Allergies: 10:53 hydrocodone (GI upset); hb - PMHx: 10:53 fernando esophageal disease; cricopharyngeal spasm; Crohn's Disease; Diverticulitis; hb Hernia; High Cholesterol; Hypertensive disorder; IDDM; Pancreatitis; vericose vein; - PSHx: 10:53 bladder prolapse SX; Cholecystectomy; colon removal; ercp; hernia repair; hysterectomy; hb polyp removed; - Immunization history:: Adult Immunizations up to date. - Infectious Disease History:: Denies. - Social history:: Smoking status: Patient denies any tobacco usage or history of. - Family history:: not pertinent. Screenin:35 [facility] ED Fall Risk Assessment (Adult) History of falling in the last 3 months, hb including since admission No falls in past 3 months (0 pts) Confusion or Disorientation No (0 pts) Intoxicated or Sedated No (0 pts) Impaired Gait No (0 pts) Mobility Assist Device Used No (0 pt) Altered Elimination No (0 pt) Score/Fall Risk Level 0 - 2 = Low Risk Oriented to surroundings, Maintained a safe environment, Educated pt \T\ family on fall prevention, incl call for assistance when getting out of bed. Abuse screen: Denies threats or abuse. Denies injuries from another. Nutritional screening: No deficits noted. Tuberculosis screening: No symptoms or risk factors identified. Assessment: 13:35 General: Appears in no apparent distress. uncomfortable, Behavior is calm, cooperative. hb Pain: Pain currently is 8 out of 10 on a pain scale. Neuro: Level of Consciousness is awake, alert, obeys commands, Oriented to person, place, time, situation. Cardiovascular: Patient's skin is warm and dry. Respiratory: Respiratory effort is even, unlabored, Respiratory pattern is regular, symmetrical. Musculoskeletal: Reports right leg pain. Vital Signs: 10:52 BP 156 / 86; Pulse 85; Resp 16; Temp 98(TE); Pulse Ox 100% on R/A; Weight 63.5 kg; hb Height 5 ft. 2 in. ; Pain 8/10; 10:52 Body Mass Index 25.61 (63.50 kg, 157.48 cm) hb 10:52 Pain Scale: Adult hb ED Course: 10:13 Patient arrived in ED. im 10:13 Chas Leal MD is Attending Physician. rt 10:53 Triage completed. hb 10:54 Arm band placed on. hb 11:33 Extremity Venous Uni Ltd US In Process Unspecified. EDMS 13:35 Patient has correct armband on for positive identification. Provided Education on: hb medications, follow up. 13:35 No provider procedures requiring assistance completed. Patient did not have IV access hb during this emergency room visit. 14:05 Chloe Martins RN is Primary Nurse. hb Administered Medications: 13:42 Drug: Gabapentin PO 600 mg PO once Route: PO; hb 13:55 Follow up: Response: Medication administered at discharge. hb Medication: 13:35 VIS not applicable for this client. hb Outcome: 13:35 Discharged to home ambulatory, hb 13:35 Condition: stable 13:35 Discharge instructions given to patient, Instructed on discharge instructions, follow up and referral plans. medication usage, Demonstrated understanding of instructions, follow-up care, medications, Prescriptions given X 1, 13:44 Discharge ordered by . rt 14:06 Patient left the ED. hb Signatures: Dispatcher [employer] EDMS Chloe Martins RN RN Chas Leal MD MD rt Pooja Mcclure im Corrections: (The following items were deleted from the chart) 10:54 10:52 Chief complaint: Varicose veins in right calf became painful 2 days ago. hb hb 10:54 10:52 BP 156 / 86; Pulse 98bpm; Resp 16bpm; Pulse Ox 100% RA; Temp 98F Temporal; Pain hb 8/10, Adult; hb 10:54 10:52 BP 156 / 86; Pulse 85bpm; Resp 16bpm; Pulse Ox 100% RA; Temp 98F Temporal; Pain hb 8, Adult; hb
--- NOTE | 2024-05-03 13:44 | EDPHYS ---
Physician Documentation [facility] Name: Robyn Carrion Age: 63 yrs Sex: Female : 1960 Arrival Date: 05/03/2024 Time: 10:11 Bed 12 Private MD: ED Physician Chas Leal HPI: 05/03 11:01 This 63 yrs old Female presents to ER via Ambulatory with complaints of Leg rt Pain - right. 11:01 Patient with history of varicose veins presents to the ED with a right leg pain rt starting the calf and radiating proximally. Patient reports that this is over a vein that has been previously cauterized. The patient denies trauma to the leg. States that she is out of her gabapentin. Denies other acute complaints, symptoms are moderate in severity, aching nature, not otherwise radiating, no other aggravating or alleviating factors.. Historical: - Allergies: 10:53 hydrocodone (GI upset); hb - PMHx: 10:53 fernando esophageal disease; cricopharyngeal spasm; Crohn's Disease; Diverticulitis; hb Hernia; High Cholesterol; Hypertensive disorder; IDDM; Pancreatitis; vericose vein; - PSHx: 10:53 bladder prolapse SX; Cholecystectomy; colon removal; ercp; hernia repair; hysterectomy; hb polyp removed; - Immunization history:: Adult Immunizations up to date. - Infectious Disease History:: Denies. - Social history:: Smoking status: Patient denies any tobacco usage or history of. - Family history:: not pertinent. ROS: 11:01 Constitutional: Negative for fever, chills, and weight loss, Cardiovascular: Negative rt for chest pain, palpitations, and edema, Respiratory: Negative for shortness of breath, cough, wheezing, and pleuritic chest pain, Abdomen/GI: Negative for abdominal pain, nausea, vomiting, diarrhea, and constipation, Skin: Negative for injury, rash, and discoloration, Neuro: Negative for headache, weakness, numbness, tingling, and seizure, 11:01 MS/extremity: Positive for pain, Negative for swelling, Exam: 11:01 Constitutional: This is a well developed, well nourished patient who is awake, alert, rt and in no acute distress. Head/Face: Normocephalic, atraumatic. Chest/axilla: Normal chest wall appearance and motion. Nontender with no deformity. No lesions are appreciated. Cardiovascular: Regular rate and rhythm with a normal S1 and S2. No gallops, murmurs, or rubs. Normal PMI, no JVD. No pulse deficits. Respiratory: Lungs have equal breath sounds bilaterally, clear to auscultation and percussion. No rales, rhonchi or wheezes noted. No increased work of breathing, no retractions or nasal flaring. Skin: Warm, dry with normal turgor. Normal color with no rashes, no lesions, and no evidence of cellulitis. Neuro: Awake and alert, GCS 15, oriented to person, place, time, and situation. Cranial nerves II-XII grossly intact. Motor strength 5/5 in all extremities. Sensory grossly intact. Cerebellar exam normal. Normal gait. 11:01 Musculoskeletal/extremity: Tenderness overlying the right varicose veins and calf, no appreciable swelling, no overlying skin changes. Vital Signs: 10:52 BP 156 / 86; Pulse 85; Resp 16; Temp 98(TE); Pulse Ox 100% on R/A; Weight 63.5 kg; hb Height 5 ft. 2 in. ; Pain 8/10; 10:52 Body Mass Index 25.61 (63.50 kg, 157.48 cm) hb 10:52 Pain Scale: Adult hb MDM: 10:51 Medical Screening Exam initiated rt 14:28 Differential diagnosis: DVT, varicose vein. Data reviewed: vital signs, nurses notes, rt radiologic studies. Test considered but Not performed: Other Details No clinical signs of cellulitis, labs are not indicated. Care significantly affected by the following chronic conditions: Hypertension. Counseling: I had a detailed discussion with the patient and/or guardian regarding the historical points, exam findings, and any diagnostic results supporting the discharge/admit diagnosis, radiology results, the need for outpatient follow up. Response to treatment: the patient's symptoms have markedly improved after treatment. 05/03 10:55 Order name: Extremity Venous Uni [facility]; Complete Time: 12:01 rt Administered Medications: 13:42 Drug: Gabapentin PO 600 mg PO once Route: PO; hb 13:55 Follow up: Response: Medication administered at discharge. Disposition Summary: 05/03/24 13:44 Discharge Ordered Notes: Location: Home rt Problem: an acute exacerbation rt Symptoms: have improved rt Condition: Stable rt Diagnosis - Right leg pain rt - Varicose veins rt Followup: rt - With: Private Physician - When: 2 - 3 days - Reason: Discharge Instructions: - Discharge Summary Sheet rt - Varicose Veins rt Forms: - Medication Reconciliation Form rt - Antibiotic Education rt - Prescription Opioid Use rt - Patient Portal Instructions rt - Leadership Thank You Letter rt Prescriptions: - gabapentin 600 mg Oral tablet - take 1 tablet ORAL route every 8 hours; 21 tablet; Refills: 0, Product rt Selection Permitted Signatures: Dispatcher [employer] Chloe Kelsey, RN RN Chas Leal MD MD rt
[2024-05-03 15:55] VITALS: BP 156/86; TEMP 98; O2SAT 100
== END 2024-05-03 14:06 | disposition home or self-care (01) ==
LOC: ER 10:11
DX: I83.91 Asymptomatic varicose veins of right lower extremity (principal)
CPT/HCPCS: 93971; 99283

== ENCOUNTER 2024-07-05 09:22 | Emergency (ER) | payer OTHER ==
--- NOTE | 2024-07-05 09:43 | ER ---
Nurse's Notes [facility] Name: Robyn Carrion Age: 63 yrs Sex: Female : 1960 Arrival Date: 07/05/2024 Time: 09:22 Bed 12 Private MD: Diagnosis: Impacted cerumen, right ear;Acute serous otitis media, right ear Presentation: 07/05 09:29 Chief complaint: Right ear pain x 3 days, cough today. Coronavirus screen: At this hb time, the client does not indicate any symptoms associated with coronavirus-19. Ebola Screen: No symptoms or risks identified at this time. Initial Sepsis Screen: Does the patient meet any 2 criteria? No. Patient's initial sepsis screen is negative. Does the patient have a suspected source of infection? No. Patient's initial sepsis screen is negative. Risk Assessment: Do you want to hurt yourself or someone else? Patient reports no desire to harm self or others. 09:29 Method Of Arrival: Ambulatory 09:30 Onset of symptoms was July 02, 2024. hb 09:30 Acuity: DARA 4 hb Triage Assessment: :32 General: Appears in no apparent distress. Behavior is calm, cooperative. Pain: Pain hb currently is 6 out of 10 on a pain scale. EENT: Reports right ear pain and acough. Neuro: Level of Consciousness is awake, alert, obeys commands, Oriented to person, place, time, situation. Cardiovascular: Patient's skin is warm and dry. Respiratory: Reports cough that is non-productive, Respiratory effort is even, unlabored, Respiratory pattern is regular, symmetrical. Historical: - Allergies: :30 hydrocodone (GI upset); hb - PMHx: :30 Pancreatitis; Hernia; cricopharyngeal spasm; High Cholesterol; IDDM; Crohn's Disease; hb fernando esophageal disease; Diverticulitis; Hypertensive disorder; vericose vein; - PSHx: 09:30 bladder prolapse SX; Cholecystectomy; colon removal; ercp; hernia repair; hysterectomy; hb polyp removed; Screenin:32 [facility] Fall Risk Assessment (Adult) History of falling in the last 3 months, hb including since admission No falls in past 3 months (0 pts) Confusion or Disorientation No (0 pts) Intoxicated or Sedated No (0 pts) Impaired Gait No (0 pts) Mobility Assist Device Used No (0 pt) Altered Elimination No (0 pt) Score/Fall Risk Level 0 - 2 = Low Risk Oriented to surroundings, Maintained a safe environment, Educated pt \T\ family on fall prevention, incl call for assistance when getting out of bed. Abuse screen: Denies threats or abuse. Denies injuries from another. Nutritional screening: No deficits noted. Tuberculosis screening: No symptoms or risk factors identified. Assessment: 09:32 General: See triage assessment . hb Vital Signs: 09:29 BP 151 / 98; Pulse 96; Resp 16; Temp 98.9(O); Pulse Ox 99% on R/A; Weight 60.78 kg; hb Height 5 ft. 1 in. ; Pain 6/10; 09:29 Body Mass Index 25.32 (60.78 kg, 154.94 cm) hb 09:29 Pain Scale: Adult hb ED Course: 09:24 Patient arrived in ED. mr 09:25 [facility]C [facility] 09:25 Shreyas Garg MD is Attending Physician. dr5 09:31 Triage completed. hb 09:32 Arm band placed on. hb Administered Medications: No medications were administered Medication: 09:32 VIS not applicable for this client. hb Outcome: 09:42 Discharge ordered by . dr5 09:53 Patient left the ED. hb Signatures: Delisa Aldana, Reg Reg hCloe Lopez, RN RN hb Otoniel Hanson FNP-C [employer] W[employer]PER TENDER-Cdr5 Corrections: (The following items were deleted from the chart) 09:31 09:29 Chief complaint: Right ear pain x 1 week hb hb 09:31 09:29 Pulse 105bpm; Resp 16bpm; Pulse Ox 99% RA; 60.78 kg; Height 5 ft. 1 in.; BMI: hb 25.3; hb
--- NOTE | 2024-07-05 09:43 | EDPHYS ---
Physician Documentation [facility] Name: Robyn Carrion Age: 63 yrs Sex: Female : 1960 Arrival Date: 07/05/2024 Time: 09:22 Bed 12 Private MD: ED Physician Shreyas Garg HPI: 07/05 09:50 This 63 yrs old Female presents to ER via Ambulatory with complaints of Ear dr5 Pain, Cough. 09:50 Patient is a 63 year old female with hx of hernia, hyperlipidemia, diabetes, Crohn's dr5 coming in with right ear pain is going on for the past week. Patient reports she has had decreased hearing from the right ear as well as throbbing pain. Patient also reports a productive cough that started a couple days ago. Patient endorses using Q-tips that have made the pain worse as time has been on.. Historical: - Allergies: 09:30 hydrocodone (GI upset); hb - PMHx: 09:30 Pancreatitis; Hernia; cricopharyngeal spasm; High Cholesterol; IDDM; Crohn's Disease; hb fernando esophageal disease; Diverticulitis; Hypertensive disorder; vericose vein; - PSHx: 09:30 bladder prolapse SX; Cholecystectomy; colon removal; ercp; hernia repair; hysterectomy; hb polyp removed; ROS: 09:50 Constitutional: as per hpi dr5 Exam: 09:50 Constitutional: This is a well developed, well nourished patient who is awake, alert, dr5 and in no acute distress. Head/Face: Normocephalic, atraumatic. Eyes: Pupils equal round and reactive to light, extra-ocular motions intact. Lids and lashes normal. Conjunctiva and sclera are non-icteric and not injected. Cornea within normal limits. Periorbital areas with no swelling, redness, or edema. Neck: Trachea midline, no thyromegaly or masses palpated, and no cervical lymphadenopathy. Supple, full range of motion without nuchal rigidity, or vertebral point tenderness. No Meningismus. Chest/axilla: Normal chest wall appearance and motion. Nontender with no deformity. No lesions are appreciated. Cardiovascular: Regular rate and rhythm with a normal S1 and S2. Normal PMI, no JVD. No pulse deficits. Respiratory: Lungs have equal breath sounds bilaterally, clear to auscultation. No rales, rhonchi or wheezes noted. No increased work of breathing, no retractions or nasal flaring. Back: No spinal tenderness. No costovertebral tenderness. Full range of motion. Skin: Warm, dry with normal turgor. Normal color with no rashes, no lesions, and no evidence of cellulitis. Neuro: Awake and alert, GCS 15, oriented to person, place, time, and situation. Cranial nerves II-XII grossly intact. Motor strength 5/5 in all extremities. Sensory grossly intact. Cerebellar exam normal. Normal gait. 09:50 ENT: External ear(s): are unremarkable, Ear canal(s): cerumen impaction, that is moderate, occluding the right ear canal, TM's: bulging, on the right, decreased mobility, on the right, erythema, that is moderate, on the right, No rupture appreciated., Examination of the other ear shows no obvious abnormality, Vital Signs: 09:29 BP 151 / 98; Pulse 96; Resp 16; Temp 98.9(O); Pulse Ox 99% on R/A; Weight 60.78 kg; hb Height 5 ft. 1 in. ; Pain 6/10; 09:29 Body Mass Index 25.32 (60.78 kg, 154.94 cm) hb 09:29 Pain Scale: Adult hb Procedures: 09:48 Foreign Body Removal:. Performed Cerumen Impaction Dislodgement. Mixed small amount of dr5 hydrogen peroxide with normal saline and used syringe to remove ear wax. Ear wax removed with success and patient tolerated procedure well. . MDM: 09:42 Medical Screening Exam initiated dr5 09:50 Differential diagnosis: otitis media, otitis externa, ruptured TM, foreign body. Data dr5 reviewed: vital signs, nurses notes. I considered the following discharge prescriptions or medication management in the emergency department. Care significantly affected by the following chronic conditions: Diabetes, Hypertension, Hyperlipidemia, Crohns . Care significantly affected by the following Social Determinants of Health: Poor access to healthcare and/or lack of insurance, Poor access to transportation, Problems related to employment. Counseling: I had a detailed discussion with the patient and/or guardian regarding the historical points, exam findings, and any diagnostic results supporting the discharge/admit diagnosis, the presence of at least one elevated blood pressure reading (>120/80) during this emergency department visit, the need for outpatient follow up, for definitive care, an ENT specialist, a family practitioner, to return to the emergency department if symptoms worsen or persist or if there are any questions or concerns that arise at home. ED course: Cerumen impaction resolved after removal of cerumen. Patient noted to have otitis media on the right side. Although patient is afebrile in ER, will cover for community-acquired pneumonia with azithromycin and Augmentin. Augmentin also chosen for right-sided otitis media. Recommend patient to stop using Q-tips. All questions answered and patient feels better on discharge. Will have patient follow primary care doctor this week. Administered Medications: No medications were administered Disposition Summary: 07/05/24 09:42 Discharge Ordered Notes: Location: Home dr5 Condition: Stable dr5 Diagnosis - Impacted cerumen, right ear dr5 - Acute serous otitis media, right ear dr5 Followup: dr5 - With: Emergency Department - When: As needed - Reason: Worsening of condition Followup: dr5 - With: Private Physician - When: 1 - 2 days - Reason: Recheck today's complaints, Continuance of care, Re-evaluation by your physician Discharge Instructions: - Discharge Summary Sheet dr5 - Earwax Buildup, Adult dr5 - Otitis Media, Adult dr5 Forms: - Medication Reconciliation Form dr5 - Antibiotic Education dr5 - Patient Portal Instructions dr5 - Leadership Thank You Letter dr5 Prescriptions: - Augmentin 875-125 mg Oral Tablet - take 1 tablet ORAL route every 12 hours for 10 days; 20 tablet; Refills: 0, dr5 Product Selection Permitted - Zithromax Z-Anthony 250 mg Oral Tablet - take 1 tablet ORAL route as directed for 5 days Day 1 - take two (2) tablets dr5 one time. Day 2, 3, 4 , 5 take one (1) tablet once daily.; 6 tablet; Refills: 0, Product Selection Permitted - Guaifenesin AC 10-100 mg/5 mL Oral Liquid - take 10 milliliters ORAL route every 4 hours As needed; 240 milliliter; dr5 Refills: 0, Product Selection Permitted Signatures: Chloe Martins, Otoniel Anton RN, BEE-C INTEGRATION SPECIALIST-Cdr5
[2024-07-05 10:01] VITALS: BP 151/98; TEMP 98.9; O2SAT 99
== END 2024-07-05 09:53 | disposition home or self-care (01) ==
LOC: ER 09:22
DX: H61.21 Impacted cerumen, right ear (principal); H65.01 Acute serous otitis media, right ear
CPT/HCPCS: 99281